=== PATIENT | female | born 1935 | race Caucasian/White ===

== ENCOUNTER 2016-11-06 21:52 | Inpatient (IN) | payer MEDICARE, OTHER ==
[~2016-11-06] VITALS: Ht 157.5 cm; Wt 39.5 kg
[~2016-11-06 21:52] MED LIST: ASPI81TA16 PO; BETA1TAB15 PO; CALC-654 PO; CALC400T8 PO; CHOL2000 PO; DILT30TA PO; DYAZIDE PO; FAMO40TA6 PO; MAGN54LI4 PO; MULT-35 PO; NEBI5TAB8 PO; NF-ESOM40C PO; OMEP20CA6 PO; PYRI100T2 PO; SCR1T PO; SIMV20TA3 PO; TRIA1CAP4 PO
[2016-11-06] MEDS ORDERED: NS IV 500 ML 500 ML IV ONE (22:50)
[2016-11-06 22:55] LABS: BASOPHILS % (AUTO) 0 % (0-10); EOSINOPHILS # (AUTO) 0.1 10^3/uL (0.0-0.3); EOSINOPHILS % (AUTO) 1 % (0-10); LYMPHOCYTES # (AUTO) 0.5 X 10^3 (1.0-4.0); LYMPHOCYTES % (AUTO) 5 % (12-44); MEAN CORPUSCULAR HEMOGLOBIN 32 PG (25-34); MEAN CORPUSCULAR HGB CONC 35 G/DL (32-36); MEAN CORPUSCULAR VOLUME 89 FL (80-99); MONOCYTES # (AUTO) 0.5 X 10^3 (0.0-1.0); MONOCYTES % (AUTO) 5 % (0-12); NEUTROPHILS # (AUTO) 9.1 X 10^3 (1.8-7.8); NEUTROPHILS % (AUTO) 88 % (42-75); PLATELET COUNT 315 10^3/uL (130-400); RED BLOOD COUNT 4.35 10^6/uL (4.35-5.85); RED CELL DISTRIBUTION WIDTH 13.5 % (10.0-14.5); WHITE BLOOD COUNT 10.3 10^3/uL (4.3-11.0)
--- NOTE | 2016-11-06 22:56 | ED Abdominal Pain ---
General Chief Complaint: Abdominal/GI Problems Stated Complaint: STOMACH PAIN, NAUSEA, DRY MOUTH Nursing Triage Note: Pt presents to ED with c/o abdominal cramping and nausea that began at 1300 today. Sepsis Screen: No Definite Risk Source of Information: Patient Exam Limitations: No Limitations History of Present Illness Time Seen By Provider: 22:40 Initial Comments Here with report of upper abdominal pain with cramping and nausea that began about 1 p.m. today. Denies vomiting. She was able to take her evening dose of medicines but otherwise has not eaten anything. Reports that her mouth is dry. Denies dysuria or diarrhea. Denies chest pain, breathing problems or upper respiratory symptoms. Timing/Duration: 12 Hours Severity/Quality: Mild, Moderate, Cramping Location: Epigastric Radiation: No Radiation Activities at Onset: None Modifying Factors: Worsens With Eating Associated Symptoms: No Back Pain, No Chest Pain, No Diaphoresis, No Fever/ Chills, Fatigue Nausea/VomitingNo Shortness of Air, Weakness Allergies and Home Medications Allergies Coded Allergies: bacitracin (Verified Allergy, Unknown, 10/06/15) lidocaine (Verified Allergy, Unknown, 10/06/15) neomycin (Verified Allergy, Unknown, 10/06/15) polymyxin B (Verified Allergy, Unknown, 10/06/15) pramoxine (Verified Allergy, Unknown, 10/06/15) Home Medications Calcium Carbonate/Vitamin D3 1 Each Tablet 1 EACH PO DAILY (Reported) Cholecalciferol (Vitamin D3) 2,000 Unit Capsule 2,000 UNIT PO DAILY (Reported) Diltiazem HCl 30 Mg Tablet 30 MG PO TID (Reported) Esomeprazole Magnesium 40 Mg Cap 40 MG PO DAILY (Reported) Famotidine 40 Mg Tablet 40 MG PO DAILY (Reported) Magnesium Carbonate 54 Mg/5 Ml Liquid 54 MG PO AC (Reported) Multivitamin 1 Each Tablet 1 EACH PO DAILY (Reported) Pyridoxine HCl 100 Mg Tablet 100 MG PO BID (Reported) Simvastatin 20 Mg Tablet 20 MG PO DAILY (Reported) Triamterene/Hydrochlorothiazid 1 Each Capsule 1 EACH PO DAILY (Reported) Vit A/Vit C/Vit E/Zinc/Copper 1 Each Tablet 1 TAB PO BID (Reported) Review of Systems Constitutional: see HPINo chills, No fever EENTM: No Symptoms ReportedNo Nose Congestion, No Throat Pain Respiratory: No Symptoms ReportedDenies Cough, Denies SOA at Rest Cardiovascular: No Symptoms ReportedDenies Chest Pain, Denies Edema Gastrointestinal: See HPI Abdominal PainDenies Diarrhea, NauseaDenies Vomiting Genitourinary: No Symptoms Reported Musculoskeletal: no symptoms reportedNo back pain, No neck pain Skin: no symptoms reported Psychiatric/Neurological: No Symptoms Reported All Other Systems Reviewed Negative Unless Noted: Yes Past Ahkjghg-Zxpqyk-Sibxen Hx Patient Social History Alcohol Use: Denies Use Recreational Drug Use: No Smoking Status: Never a Smoker 2nd Hand Smoke Exposure: No Recent Foreign Travel: No Contact w/Someone Who Travel: No Recent Infectious Disease Expo: No Recent Hopitalizations: No Immunizations Up To Date Tetanus Booster (TDap): Unknown Date of Pneumonia Vaccine: Sep 12, 2013 Date of Influenza Vaccine: Jun 07, 2016 Surgeries HX Surgeries: Yes (RSO, HYST, BREAST BX, CATARACTS) Respiratory Hx Respiratory Disorders: No (ASTHMA CHILD) Cardiovascular Hx Cardiac Disorders: Yes Cardiac Disorders: High Cholesterol, Hypertension Neurological Hx Neurological Disorders: No Genitourinary Hx Genitourinary Disorders: No Gastrointestinal Hx Gastrointestinal Disorders: Yes (GERD) Gastrointestinal Disorders: Hiatal Hernia Musculoskeletal Hx Musculoskeletal Disorders: Yes (ARTHRITIS, OSTEOPOROSIS) Endocrine Hx Endocrine Disorders: No Reviewed Nursing Assessment Reviewed/Agree w Nursing PMH: Yes Family Medical History Significant Family History: No Pertinent Family Hx Physical Exam Vital Signs VS - Last 72 Hours, by Label 11/06/16 22:25 Temp 98.5 Pulse 72 Resp 18 B/P 186/90 Pulse Ox 100 O2 Delivery Room Air Capillary Refill : Less Than 3 Seconds General Appearance: WD/WN mild distress (nausea) HEENT: PERRL/EOMI pharynx normal Neck: full range of motion supple Respiratory: lungs clear normal breath sounds Cardiovascular: regular rate, rhythm no murmur Gastrointestinal: softNo guarding, No rebound, tenderness (epigastric) Extremities: non-tender normal inspection Back: normal inspection no CVA tenderness no vertebral tenderness Neurologic/Psychiatric: alert oriented x 3 Skin: normal color warm/dry Progress/Results/Core Measures Results/Orders Lab Results Laboratory Tests Test 11/06/16 22:44 11/06/16 22:49 11/06/16 22:58 Range/Units Alanine Aminotransferase (ALT/SGPT) 21 0-55 U/L Albumin 4.6 H 3.2-4.5 G/DL Alkaline Phosphatase 66 40-136 U/L Anion Gap 16 H 5-14 MMOL/L Aspartate Amino Transf (AST/SGOT) 33 5-34 U/L BUN/Creatinine Ratio 19 Basophils # (Auto) 0.0 0.0-0.1 10^3/uL Basophils (%) (Auto) 0 0-10 % Blood Urea Nitrogen 16 7-18 MG/DL Calcium Level 9.8 8.5-10.1 MG/DL Carbon Dioxide Level 23 21-32 MMOL/L Chloride Level 95 L 98-107 MMOL/L Creatinine 0.83 0.60-1.30 MG/DL Eosinophils # (Auto) 0.1 0.0-0.3 10^3/uL Eosinophils (%) (Auto) 1 0-10 % Estimat Glomerular Filtration Rate > 60 Glucose Level 116 H 70-105 MG/DL Hematocrit 39 35-52 % Hemoglobin 13.7 11.5-16.0 G/DL Lymphocytes # (Auto) 0.5 L 1.0-4.0 X 10^3 Lymphocytes (%) (Auto) 5 L 12-44 % Magnesium Level 2.0 1.8-2.4 MG/DL Mean Corpuscular Hemoglobin 32 25-34 PG Mean Corpuscular Hemoglobin Concent 35 32-36 G/DL Mean Corpuscular Volume 89 80-99 FL Mean Platelet Volume 9.0 7.4-10.4 FL Monocytes # (Auto) 0.5 0.0-1.0 X 10^3 Monocytes (%) (Auto) 5 0-12 % Neutrophils # (Auto) 9.1 H 1.8-7.8 X 10^3 Neutrophils (%) (Auto) 88 H 42-75 % Platelet Count 315 130-400 10^3/uL Potassium Level 3.1 L 3.6-5.0 MMOL/L Red Blood Count 4.35 4.35-5.85 10^6/uL Red Cell Distribution Width 13.5 10.0-14.5 % Sodium Level 134 L 135-145 MMOL/L Total Bilirubin 0.7 0.1-1.0 MG/DL Total Protein 7.4 6.4-8.2 G/DL White Blood Count 10.3 4.3-11.0 10^3/uL Troponin I < 0.30 <0.30 NG/ML Urine Bacteria NEGATIVE /HPF Urine Bilirubin NEGATIVE NEGATIVE Urine Casts NONE /LPF Urine Clarity CLEAR Urine Color YELLOW Urine Crystals NONE /LPF Urine Culture Indicated NO Urine Glucose (UA) NEGATIVE NEGATIVE Urine Ketones 1+ H NEGATIVE Urine Leukocyte Esterase NEGATIVE NEGATIVE Urine Mucus MODERATE H /LPF Urine Nitrite NEGATIVE NEGATIVE Urine Protein NEGATIVE NEGATIVE Urine RBC 10-25 H /HPF Urine RBC (Auto) 3+ H NEGATIVE Urine Specific [place] 1.020 1.016-1.022 Urine Squamous Epithelial Cells 5-10 /HPF Urine Urobilinogen NORMAL NORMAL MG/DL Urine WBC NONE /HPF Urine pH 7 5-9 My Orders Orders-LETY JENKINS MD Cbc With Automated Diff (11/06/16 22:50) Comprehensive Metabolic Panel (11/06/16 22:50) Magnesium (11/06/16 22:50) Ua Culture If Indicated (11/06/16 22:50) Ondansetron Injection (Zofran Injectio (11/06/16 23:00) Saline Lock/Iv-Start (11/06/16 22:50) Saline Lock/Iv-Start (11/06/16 22:50) Ns Iv 500 Ml (Sodium Chloride 0.9%) (11/06/16 22:50) Ekg Tracing (11/06/16 23:22) Troponin I (11/06/16 23:22) Clonidine Tablet (Catapres Tablet) (11/06/16 23:45) Ondansetron Injection (Zofran Injectio (11/07/16 00:00) Famotidine Injection (Pepcid Injection) (11/06/16 23:55) Ct Abdomen/Pelvis W (11/07/16 00:24) Promethazine Injection (Phenergan Injec (11/07/16 00:34) Iohexol Injection (Omnipaque 350 Mg/Ml 1 (11/07/16 01:00) Sodium Chloride Flush (Catheter Flush Sy (11/07/16 01:00) Ns (Ivpb) (Sodium Chloride 0.9% Ivpb Bag (11/07/16 01:00) Promethazine Injection (Phenergan Injec (11/07/16 02:03) Benzocaine Extension Tube (Hurricaine Ex (11/07/16 02:09) Chest 1 View, Ap/Pa Only (11/07/16 02:34) Medications Given in ED Current Medications Medications Dose Ordered Sig/Sam Route Start Time Stop Time Status Last Admin Dose Admin Clonidine HCl 0.1 mg ONCE ONCE PO 11/06/16 23:45 11/06/16 23:46 DC 11/06/16 23:52 0.1 MG Iohexol 100 ml ONCE ONCE IV 11/07/16 01:00 11/07/16 01:27 DC 11/07/16 01:05 100 ML Ondansetron HCl 4 mg ONCE ONCE IVP 11/07/16 00:00 11/07/16 00:01 DC 11/07/16 00:09 4 MG Ondansetron HCl 4 mg 4 mg ONCE ONCE IVP 11/06/16 23:00 11/06/16 23:01 DC 11/06/16 22:55 4 MG Promethazine HCl 25 mg STK-MED ONCE .ROUTE 11/07/16 00:34 11/07/16 00:36 DC 11/07/16 00:38 6.25 MG Promethazine HCl 25 mg STK-MED ONCE .ROUTE 11/07/16 02:03 11/07/16 02:05 DC 11/07/16 02:06 12.5 MG Sodium Chloride 100 ml ONCE ONCE IV 11/07/16 01:00 11/07/16 01:45 DC 11/07/16 01:05 80 ML Sodium Chloride 500 ml @ 0 mls/hr Q0M ONCE IV 11/06/16 22:50 11/06/16 22:51 DC 11/06/16 22:56 0 MLS/HR Vital Signs/I&O Vital Sign - Last 12Hours 11/06/16 22:25 Temp 98.5 Pulse 72 Resp 18 B/P 186/90 Pulse Ox 100 O2 Delivery Room Air Blood Pressure Mean: 122 Progress Note : Progress Note Seen and evaluated. IV, labs and UA ordered. Zofran 4 mg IV. Normal saline 500 mL bolus. Patient noted to be quite hypertensive with blood pressure 200/ 87. EKG and troponin added. Clonidine 0.1 mg by mouth ordered. Monitor patient. Blood pressure did improve to 160s over 80. Patient with persistent vomiting. Repeat Zofran 4 mg IV. 0015: Patient has repeat vomiting. Has history of obstruction. CT abdomen pelvis with contrast ordered. Phenergan 6.25 mg IV ordered. Monitor patient. 0200: Persistent nausea and vomiting. Phenergan 12.5 mg IV ordered. 0215: CT findings noted. Significant high grade small noted. NG tube indicated. This was discussed with the patient and she agreed. Case discussed with Dr. Holt, on-call for Dr. Bradshaw. He accepts patient for admission, inpatient status. Consult surgery. Dr. Winter consulted at 0213 and agrees with NG tube and will follow. Patient and family agree with plan. 0225 radiology called and is now they're concerned that there may be an internal volvulus. 0230: I discussed the case with Dr. Winter. We will continue current management including NG tube which was placed. And he will see the patient first thing in the morning especially considering she has no significant pain or white count currently. Admit, inpatient status. ECG Initial ECG Impression Date: Nov 06, 2016 Initial ECG Impression Time: 23:32 Initial ECG Rate: 67 Initial ECG Rhythm: Normal Sinus Comment Sinus rhythm with right bundle branch block and left posterior fascicular block although there is artifact. Previous EKG compared from 2006 and is very similar overall. Rightward axis noted. No evidence of ST elevation CT. Interpreted by me. Diagnostic Imaging Diagonstic Imaging: CT Plain Films/CT/US/NM/MRI: abdomen, pelvis Comments Significant distention of the stomach and proximal small bowel loops with development of air fluid levels compatible with high-grade bowel obstruction. There is transition point at the right lower quadrant where there is a question of an internal hernia. Small amount of free fluid but no free air. No acute abnormality of the liver, gallbladder, pancreas or kidneys. Incidental findings of cachexia and degenerative disc changes with posterior disc bulging at multiple lumbar levels. Hysterectomy noted. 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 Recommend surgical consultation. Reviewed: Reviewed Night [facility] Dep[facility] Communication Time/Spoke to Admitting Phy: 02:10 Time/Spoke to Consulting Physi: 02:13 Impression Impression: Primary Impression: Small bowel obstruction Additional Impression: Intractable nausea and vomiting Qualified Code: R11.2 - Nausea with vomiting, unspecified Disposition: ADMITTED INPATIENT Condition: Stable Decision to Admit Reason: Admit from ER (General) Decision to Admit/Date: Nov 07, 2016 Time/Decision to Admit Time: 02:10 Departure-Patient Inst. Referrals: ZEV BRADSHAW MD (PCP/Family) Primary Care Physician LETY JENKINS MD Nov 06, 2016 22:56
[2016-11-06] MEDS ORDERED: ONDANSETRON 4 MG/2 ML (SDV) Z0FRAN IVP ONE (23:00)
[2016-11-06 23:05] LABS: BILIRUBIN,URINE NEGATIVE (NEGATIVE); KETONES,URINE 1+ (NEGATIVE); LEUKOCYTE ESTERASE ,URINE NEGATIVE (NEGATIVE); NITRITE,URINE NEGATIVE (NEGATIVE); PH,URINE 7 (5-9); PROTEIN,URINE NEGATIVE (NEGATIVE); UROBILINOGEN,URINE NORMAL (NORMAL)
[2016-11-06 23:12] LABS: ALANINE AMINOTRANSFERASE 21 U/L (0-55); ALBUMIN 4.6 G/DL (3.2-4.5); ANION GAP 16 MMOL/L (5-14); ASPARTATE AMINO TRANSFERASE 33 U/L (5-34); BILIRUBIN,TOTAL 0.7 MG/DL (0.1-1.0); BLOOD UREA NITROGEN 16 MG/DL (7-18); BUN/CREATININE RATIO 19; CALCIUM 9.8 MG/DL (8.5-10.1); CARBON DIOXIDE 23 MMOL/L (21-32); CHLORIDE 95 MMOL/L (98-107); CREATININE SERUM 0.83 MG/DL (0.60-1.30); GFR ESTIMATED > 60; GLUCOSE 116 MG/DL (70-105); POTASSIUM 3.1 MMOL/L (3.6-5.0); SODIUM 134 MMOL/L (135-145); TOTAL PROTEIN 7.4 G/DL (6.4-8.2)
[2016-11-06] MEDS ORDERED: cloNIDine 0.1 MG (CATAPRES) TAB PO ONE (23:45)
[2016-11-06] MEDS ORDERED: FAMOTIDINE 20MG/2ML IV (PEPCID) IV STA (23:55)
[2016-11-07] VITALS (9 sets, daily range): BP systolic 149–183; BP diastolic 62–114
[2016-11-07] MEDS ORDERED: ONDANSETRON 4 MG/2 ML (SDV) Z0FRAN IVP ONE
[2016-11-07] MEDS ORDERED: PROMETHAZINE INJ 25 MG/ML (PHENERGAN) AMP ONE ×3 (00:34→04:07)
[2016-11-07] MEDS ORDERED: IOHEXOL 350 MG/ML 100 ML (OMNIPAQUE 350) VIAL IV ONE (01:00)
[2016-11-07] MEDS ORDERED: NS 100 ML (IVPB) BAG IV ONE (01:00)
[2016-11-07] MEDS ORDERED: CATHETER FLUSH 10 ML SYR IV PRN (01:00)
[2016-11-07] MEDS ORDERED: HURRICAINE EXT TUBE (BENZOCAINE) ONE (02:09)
[2016-11-07] MEDS ORDERED: NS IV 1000 ML 1,000 ML ONE (04:07)
[2016-11-07] MEDS ORDERED: ONDANSETRON 4 MG/2 ML (SDV) Z0FRAN ONE (04:07)
[2016-11-07] MEDS ORDERED: morphine INJ 4 MG/ML 1 ML (VIAL/SYRINGE) ONE (04:49)
[2016-11-07 05:00] LABS: BASOPHILS % (AUTO) 0 % (0-10); EOSINOPHILS % (AUTO) 0 % (0-10); LYMPHOCYTES # (AUTO) 0.5 X 10^3 (1.0-4.0); LYMPHOCYTES % (AUTO) 5 % (12-44); MEAN CORPUSCULAR HEMOGLOBIN 31 PG (25-34); MEAN CORPUSCULAR HGB CONC 35 G/DL (32-36); MEAN CORPUSCULAR VOLUME 90 FL (80-99); MEAN PLATELET VOLUME 9.2 FL (7.4-10.4); MONOCYTES # (AUTO) 0.3 X 10^3 (0.0-1.0); MONOCYTES % (AUTO) 3 % (0-12); NEUTROPHILS # (AUTO) 8.8 X 10^3 (1.8-7.8); NEUTROPHILS % (AUTO) 92 % (42-75); PLATELET COUNT 304 10^3/uL (130-400); RED BLOOD COUNT 4.16 10^6/uL (4.35-5.85); RED CELL DISTRIBUTION WIDTH 13.5 % (10.0-14.5); WHITE BLOOD COUNT 9.6 10^3/uL (4.3-11.0)
[2016-11-07 05:19] LABS: ALANINE AMINOTRANSFERASE 19 U/L (0-55); ALBUMIN 4.3 G/DL (3.2-4.5); ANION GAP 14 MMOL/L (5-14); ASPARTATE AMINO TRANSFERASE 32 U/L (5-34); BILIRUBIN,TOTAL 0.8 MG/DL (0.1-1.0); BLOOD UREA NITROGEN 15 MG/DL (7-18); BUN/CREATININE RATIO 20; CARBON DIOXIDE 23 MMOL/L (21-32); CHLORIDE 96 MMOL/L (98-107); CREATININE SERUM 0.76 MG/DL (0.60-1.30); GFR ESTIMATED > 60; GLUCOSE 129 MG/DL (70-105); POTASSIUM 3.3 MMOL/L (3.6-5.0); SODIUM 133 MMOL/L (135-145); TOTAL PROTEIN 6.9 G/DL (6.4-8.2)
[2016-11-07] MEDS: morphine INJ 4 MG/ML 1 ML (VIAL/SYRINGE) IVP PRN ×3 (05:51→20:15)
[2016-11-07] MEDS: NS IV 1000 ML 1,000 ML IV SCH ×2 (06:15→18:54)
[2016-11-07] MEDS ORDERED: PROMETHAZINE INJ 25 MG/ML (PHENERGAN) AMP IV PRN (06:15)
--- NOTE | 2016-11-07 07:23 | Diagnostic Imaging Report ---
PROCEDURE: CT abdomen and pelvis with contrast. TECHNIQUE: Multiple contiguous axial images were obtained through the abdomen and pelvis after administration of intravenous contrast. INDICATION: Pain and nausea. I have no previous for comparison. FINDINGS: There are features of a high-grade distal small bowel obstruction and the transition in the right lower quadrant corresponds to some focal distortion of orientation of the small bowel, best seen on image 53 of 78 and obstruction from the internal hernia versus a scarring could not be differentiated. No pneumatosis or free air. The stomach is moderately distended with fluid and this fluid refluxing into a small hiatal hernia. Liver and gallbladder are unremarkable. The spleen nonfocal. There are renal cortical cysts. No hydronephrosis. Aortoiliac and mesenteric vessels appear patent and nonaneurysmal. There is stool in the distal colon, large bowel itself appeared intrinsically unremarkable and proximally with decompressed. IMPRESSION: High-grade distal small bowel obstruction transition in the right lower quadrant corresponds to an area of distortion of the normal orientation of small bowel loops. This could be from obstructing scar or internal hernia. No findings of perforation and no abscess. No other acute appearing abnormality. I agree with the preliminary. Dictated by: Dictated on workstation # [id number]
--- NOTE | 2016-11-07 07:55 | Diagnostic Imaging Report ---
INDICATION: NG placement. FINDINGS: NG catheter is looped upon itself in the distal thoracic esophagus. A subsequent film following this exam showed successful repositioning. Severe COPD noted. IMPRESSION: Air trapping, COPD chronic. Positioning of NG catheter looped in the distal esophagus, however, following repositioning after this exam, a subsequent radiograph confirms good positioning. Dictated by: Dictated on workstation # [id number]
--- NOTE | 2016-11-07 08:39 | Diagnostic Imaging Report ---
INDICATION: Catheter repositioning. Study compared with exam earlier the same day. This film is timed 3:30 a.m. FINDINGS: Enteric catheter has been repositioned its tip is now well below the diaphragm into the stomach. Air trapping and COPD chronic. No failure, effusion or pneumothorax. IMPRESSION: Enteric catheter is within the stomach. Dictated by: Dictated on workstation # [id number]
[2016-11-07] MEDS: PANTOPRAZOLE 40 MG/10 ML (PROTONIX) VIAL IV SCH ×3 (09:00→20:15)
[2016-11-07] MEDS ORDERED: BUPIVACAINE 0.5% 30 ML (SENSORCAINE) VIAL ONE (09:02)
[2016-11-07] MEDS ORDERED: LIDOCAINE 1% INJ 20 ML (XYLOCAINE) VIAL ONE (09:03)
[2016-11-07] MEDS ORDERED: FLUO40CR8 TOP (09:07)
[2016-11-07] MEDS ORDERED: TRIA1TAB3 PO (09:07)
[2016-11-07] MEDS ORDERED: ESCI5TAB12 PO (09:07)
[2016-11-07] MEDS ORDERED: CLOR3.755 PO (09:07)
[2016-11-07] MEDS ORDERED: ESOM40CA52 PO (09:07)
[2016-11-07] MEDS ORDERED: FLUT16SP22 NS (09:07)
[2016-11-07] MEDS ORDERED: SIMV20TA3 PO (09:07)
[2016-11-07] MEDS ORDERED: SUCR1ORA PO (09:07)
--- NOTE | 2016-11-07 09:09 | History & Physicial ---
History of Present Illness History of Present Illness Reason for visit/HPI PT IS AN 81 Y/O FEMALE WHO IS KNOWN TO ME FROM CLINIC. MRS. LONG STATES THAT SHE WAS FEELING WELL UNTIL LAST NIGHT WHEN SHE STARTED TO HAVE NAUSEA AND ABDOMINAL PAIN IN THE UMBILICAL AND LOWER REGION OF HER STOMACH. SHE STATES THAT SHE STARTED TO HAVE NAUSEA AND EMESIS WHEN SHE PRESENTED TO THE HOSPITAL. SHE STATES THAT SHE STILL HAS SOME DISCOMFORT, BUT NOT MUCH ON ADMISSION TO THE HOSPITAL. SHE ALSO REPORTS THAT THIS TYPE OF ILLNESS HAS HAPPENED ONE TIME PREVIOUSLY IN ABOUT 2006 WHEN SHE HAD A "TWISTED BOWEL" AND HAD A COLONOSCOPY THAT RESOLVED THE "TWIST". Date of Admission Nov 07, 2016 at 02:46 I consulted on this patient on 11/07/16 09:03 Attending Physician Zev Farrar MD Admitting Physician Zev Farrar MD Consult JUAN DOWNING DO Allergies and Home Medications Allergies Coded Allergies: bacitracin (Verified Allergy, Unknown, 10/06/15) lidocaine (Verified Allergy, Unknown, 10/06/15) neomycin (Verified Allergy, Unknown, 10/06/15) polymyxin B (Verified Allergy, Unknown, 10/06/15) pramoxine (Verified Allergy, Unknown, 10/06/15) Home Medications Calcium Carbonate/Vitamin D3 1 Each Tablet 1 EACH PO DAILY (Reported) Cholecalciferol (Vitamin D3) 2,000 Unit Capsule 2,000 UNIT PO DAILY (Reported) Diltiazem HCl 30 Mg Tablet 30 MG PO TID (Reported) Esomeprazole Magnesium 40 Mg Cap 40 MG PO DAILY (Reported) Famotidine 40 Mg Tablet 40 MG PO DAILY (Reported) Magnesium Carbonate 54 Mg/5 Ml Liquid 54 MG PO AC (Reported) Multivitamin 1 Each Tablet 1 EACH PO DAILY (Reported) Pyridoxine HCl 100 Mg Tablet 100 MG PO BID (Reported) Simvastatin 20 Mg Tablet 20 MG PO DAILY (Reported) Triamterene/Hydrochlorothiazid 1 Each Capsule 1 EACH PO DAILY (Reported) Vit A/Vit C/Vit E/Zinc/Copper 1 Each Tablet 1 TAB PO BID (Reported) Past Frtsrfs-Zfevan-Huqqll Hx Patient Social History Marrital Status: Living Status: LIVES AT HOME WITH SPOUSE Employed/Student: retired Alcohol Use: Denies Use Recreational Drug Use: No Smoking Status: Never a Smoker 2nd Hand Smoke Exposure: No Physical Abuse Screen: No Sexual Abuse: No Recent Foreign Travel: No Contact w/other who traveled: No Recent Hopitalizations: No Recent Infectious Disease Expo: No Immunizations Up To Date Tetanus Booster (TDap): Unknown Date of Pneumonia Vaccine: Sep 12, 2013 Date of Influenza Vaccine: Jun 07, 2016 Seasonal Allergies Seasonal Allergies: No Surgeries HX Surgeries: Yes (RSO, HYST, BREAST BX, CATARACTS) Surgeries: Breast (BIOPSY), Hysterectomy Respiratory Hx Respiratory Disorders: Yes (ASTHMA CHILD) Cardiovascular Hx Cardiovascular Disorders: Yes Cardiac Disorders: High Cholesterol, Hypertension Neurological Hx Neurological Disorders: No Reproductive System : No Hx 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: No Sexually Transmitted Disease: No HIV/AIDS: No Female 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: 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 Genitourinary Hx Genitourinary Disorders: No Gastrointestinal Hx Gastrointestinal Disorders: Yes (GERD) Gastrointestinal Disorders: Gastroesophageal Reflux, Hiatal Hernia Musculoskeletal Hx Musculoskeletal Disorders: Yes (ARTHRITIS, OSTEOPOROSIS) Musculoskeletal Disorders: Osteoporosis, Arthritis Endocrine Hx Endocrine Disorders: No HEENT HX ENT Disorders: No Loss of Vision: Denies Hearing Impairment: Denies Cancer Hx Cancer: No Psychosocial Hx Psychiatric Problems: No Integumentary HX Skin/Integumentary Disorder: No Blood Transfusions Hx Blood Disorders: No Adverse Reaction to a Blood Tr: No Reviewed Nursing Assessment Reviewed/Agree w Nursing PMH: Yes Family Medical History Significant Family History: Hypertension Constitutional: No chills, No dizziness, No fever, No malaise, weakness EENTM: No hoarseness, No throat pain Respiratory: No dyspnea on exertion, No short of breath Cardiovascular: No chest pain, No palpitations Gastrointestinal: abdominal pain (LLQ, RLQ) nausea Genitourinary: no symptoms reported Musculoskeletal: No back pain, No muscle weakness Skin: No lesions, No rash Psychiatric/Neurological: Denies Anxiety, Denies Depressed All Other Systems Reviewed Negative Unless Noted: Yes Physical Exam Vital Signs Vital Sign - Last 12Hours 11/06/16 22:25 Temp 98.5 Pulse 72 Resp 18 B/P 186/90 Pulse Ox 100 O2 Delivery Room Air Capillary Refill : Less Than 3 Seconds General Appearance: Mild Distress Thin Eyes: Bilateral Eye EOMI, Bilateral Eye Normal Inspection, Bilateral Eye PERRL HEENT: PERRL/EOMI Pharynx Normal Neck: Full Range of Motion Normal Inspection Non Tender Supple Carotid Bruit Respiratory: Chest Non Tender Lungs Clear Normal Breath Sounds Cardiovascular: Regular Rate, Rhythm No Edema Gastrointestinal: Distended Tenderness (LLQ, RLQ, UMBILICAL) Other (NO BOWEL SOUNDS) Rectal: Deferred Back: Normal Inspection Extremity: Normal Capillary Refill Non Tender No Calf Tenderness No Pedal Edema Neurologic/Psychiatric: Alert Oriented x3 No Motor/Sensory Deficits Normal Mood/Affect Skin: Normal Color Warm/Dry Lymphatic: No Adenopathy Assessment/Plan Assessment and Plan SMALL BOWEL OBSTRUCTION ABDOMINAL PAIN NAUSEA GERD HYPERLIPIDEMIA HYPERTENSION SMALL BOWEL OBSTRUCTION WITH NAUSEA AND ABDOMINAL PAIN - CONTINUE WITH NG TUBE, MONITOR SYMPTOMS, SUPPORTIVE CARE, DR. DOWNING TO RENDER TREATMENT DEEMED NECESSARY FROM A SURGICAL STANDPOINT. GERD - START PROTONIX IV HYPERLIPIDEMIA AND HYPERTENSION - HOLD MEDS ORALLY AT THIS TIME, WILL GIVE PRN LOPRESSOR IV IF NEEDED FOR HTN. SCD'S FOR DVT PROPHYLAXIS, LOVENOX Admission Diagnosis SMALL BOWEL OBSTRUCTION ABDOMINAL PAIN NAUSEA GERD HYPERLIPIDEMIA HYPERTENSION Clinical Quality Measures DVT/VTE Risk/Contraindication: Risk Factor Score Per Nursin RFS Level Per Nursing on Admit: 2=Moderate ZEV FARRAR MD Nov 07, 2016 09:09
[2016-11-07] MEDS: ENOXAPARIN 40 MG/0.4 ML (LOVENOX) SYR SC SCH (09:15)
[2016-11-07] MEDS: ONDANSETRON 4 MG/2 ML (SDV) Z0FRAN IV PRN (10:25)
[2016-11-07] MEDS: SALIVA STIMULANT MOUTH SPRAY (BIOTENE) 1.5 OZ MM PRN (10:31)
[2016-11-07] MEDS ORDERED: LACTATED RINGERS 1,000 ML IV PRN (10:39)
[2016-11-07] MEDS ORDERED: FAMOTIDINE 20MG/2ML IV (PEPCID) IV ONE (10:45)
--- NOTE | 2016-11-07 10:47 | Consultation ---
History of Present Illness History of Present Illness Patient Consulted On(maira/time) 11/07/16 10:41 Date of Admission History of Present Illness Consult requested by Dr. Bradshaw for SBO. Patient is an 81 year female who began having abdominal pain periumbilical and lower abdomen yesterday. She was having severe nausea and emesis and went to emergency dept overnight. Patient reports history of having twisted bowel but it corrected itself she says. She had a ct scan demonstrating dilated loops of small bowel with transition point in right lower quadrant. She also had an area that has possibility of internal hernia or twisted small bowel. abdominal pain currently is moderate. No radiation. NG tube in place. Allergies and Home Medications Allergies Coded Allergies: bacitracin (Verified Allergy, Unknown, 10/06/15) lidocaine (Verified Allergy, Unknown, 10/06/15) neomycin (Verified Allergy, Unknown, 10/06/15) polymyxin B (Verified Allergy, Unknown, 10/06/15) pramoxine (Verified Allergy, Unknown, 10/06/15) Home Medications Calcium Carbonate/Vitamin D3 1 Each Tablet 1 TAB PO DAILY (Reported) Cholecalciferol (Vitamin D3) 2,000 Unit Capsule 2,000 UNIT PO DAILY (Reported) Clorazepate Dipotassium 3.75 Mg Tablet 3.75 MG PO DAILY (Reported) Diltiazem HCl 30 Mg Tablet 30 MG PO TID (Reported) Escitalopram Oxalate 5 Mg Tablet 5 MG PO HS (Reported) Esomeprazole Magnesium 40 Mg Capsule.dr 40 MG PO DAILY (Reported) Famotidine 40 Mg Tablet 40 MG PO HS (Reported) Fluorouracil 40 Gm Cream..g. TOP DAILY PRN PRN SKIN (Reported) Fluticasone Propionate 16 Gm Kirby.susp 1 SPRAY NS BID PRN PRN ALLERGIES ( Reported) Multivitamin 1 Each Tablet 1 TAB PO DAILY (Reported) Pyridoxine HCl 100 Mg Tablet 100 MG PO BID (Reported) Simvastatin 20 Mg Tablet 20 MG PO HS (Reported) Sucralfate 1 Gm/10 Ml Oral.susp 10 ML PO TIDWM (Reported) Triamterene/Hydrochlorothiazid 1 Each Tablet 1 TAB PO DAILY (Reported) Vit A/Vit C/Vit E/Zinc/Copper 1 Each Tablet 1 TAB PO BID (Reported) Past Rycwlzo-Duxutc-Ogcgwh Hx Patient Social History Alcohol Use: Denies Use Recreational Drug Use: No Smoking Status: Never a Smoker 2nd Hand Smoke Exposure: No Recent Foreign Travel: No Contact w/Someone Who Travel: No Recent Infectious Disease Expo: No Recent Hopitalizations: No Physical Abuse Screen: No Sexual Abuse: No Immunizations Up To Date Tetanus Booster (TDap): Unknown Date of Pneumonia Vaccine: Sep 12, 2013 Date of Influenza Vaccine: Jun 07, 2016 Seasonal Allergies Seasonal Allergies: No Surgeries HX Surgeries: Yes (RSO, HYST, BREAST BX, CATARACTS) Surgeries: Breast (BIOPSY), Hysterectomy Respiratory Hx Respiratory Disorders: Yes (ASTHMA CHILD) Cardiovascular Hx Cardiac Disorders: Yes Cardiac Disorders: High Cholesterol, Hypertension Neurological Hx Neurological Disorders: No Reproductive System : No Hx 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: No Sexually Transmitted Disease: No HIV/AIDS: No Female 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: 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 Genitourinary Hx Genitourinary Disorders: No Gastrointestinal Hx Gastrointestinal Disorders: Yes (GERD) Gastrointestinal Disorders: Gastroesophageal Reflux, Hiatal Hernia Musculoskeletal Hx Musculoskeletal Disorders: Yes (ARTHRITIS, OSTEOPOROSIS) Musculoskeletal Disorders: Osteoporosis, Arthritis Endocrine Hx Endocrine Disorders: No HEENT HX ENT Disorders: No Loss of Vision: Denies Hearing Impairment: Denies Cancer Hx Cancer: No Psychosocial Hx Psychiatric Problems: No Integumentary HX Skin/Integumentary Disorder: No Blood Transfusions Hx Blood Disorders: No Adverse Reaction to a Blood Tr: No Reviewed Nursing Assessment Reviewed/Agree w Nursing PMH: Yes Family Medical History Significant Family History: Hypertension Review of Systems-General Constitutional: see HPI EENTM: no symptoms reported Respiratory: no symptoms reported Cardiovascular: no symptoms reported Gastrointestinal: see HPI Genitourinary: no symptoms reported Musculoskeletal: no symptoms reported Skin: no symptoms reported Psychiatric/Neurological: No Symptoms Reported Physical Exam-General Problems Physical Exam Vital Signs Vital Sign - Last 12Hours 11/06/16 22:25 Temp 98.5 Pulse 72 Resp 18 B/P 186/90 Pulse Ox 100 O2 Delivery Room Air Capillary Refill : Less Than 3 Seconds General Appearance: mild distress HEENT: PERRL/EOMI Neck: supple Respiratory: no respiratory distress no accessory muscle use Cardiovascular: regular rate, rhythm no edema Gastrointestinal: distended (umbilical hernia reducible, slight tenderness to palpation right lower quadrant) Rectal: other (no gross blood soft stool in vault no palpable masses) Back: normal inspection Extremities: non-tender normal inspection Neurologic/Psychiatric: alert normal mood/affect oriented x 3 Skin: warm/dry Data Review Labs Laboratory Tests 11/06/16 22:44: Alanine Aminotransferase (ALT/SGPT) 21, Albumin 4.6H, Alkaline Phosphatase 66, Anion Gap 16H, Aspartate Amino Transf (AST/SGOT) 33, BUN/Creatinine Ratio 19, Basophils # (Auto) 0.0, Basophils (%) (Auto) 0, Blood Urea Nitrogen 16, Calcium Level 9.8, Carbon Dioxide Level 23, Chloride Level 95L, Creatinine 0.83, Eosinophils # (Auto) 0.1, Eosinophils (%) (Auto) 1, Estimat Glomerular Filtration Rate > 60, Glucose Level 116H, Hematocrit 39, Hemoglobin 13.7, Lymphocytes # (Auto) 0.5L, Lymphocytes (%) (Auto) 5L, Magnesium Level 2.0, Mean Corpuscular Hemoglobin 32, Mean Corpuscular Hemoglobin Concent 35, Mean Corpuscular Volume 89, Mean Platelet Volume 9.0, Monocytes # (Auto) 0.5, Monocytes (%) (Auto) 5, Neutrophils # (Auto) 9.1H, Neutrophils (%) (Auto) 88H, Platelet Count 315, Potassium Level 3.1L, Red Blood Count 4.35, Red Cell Distribution Width 13.5, Sodium Level 134L, Total Bilirubin 0.7, Total Protein 7.4, White Blood Count 10.3 11/06/16 22:49: Troponin I < 0.30 11/06/16 22:58: Urine Bacteria NEGATIVE, Urine Bilirubin NEGATIVE, Urine Casts NONE, Urine Clarity CLEAR, Urine Color YELLOW, Urine Crystals NONE, Urine Culture Indicated NO, Urine Glucose (UA) NEGATIVE, Urine Ketones 1+H, Urine Leukocyte Esterase NEGATIVE, Urine Mucus MODERATEH, Urine Nitrite NEGATIVE, Urine Protein NEGATIVE , Urine RBC 10-25H, Urine RBC (Auto) 3+H, Urine Specific [place] 1.020, Urine Squamous Epithelial Cells 5-10, Urine Urobilinogen NORMAL, Urine WBC NONE, Urine pH 7 11/07/16 04:32: Alanine Aminotransferase (ALT/SGPT) 19, Albumin 4.3, Alkaline Phosphatase 63, Anion Gap 14, Aspartate Amino Transf (AST/SGOT) 32, BUN/Creatinine Ratio 20, Basophils # (Auto) 0.0, Basophils (%) (Auto) 0, Blood Urea Nitrogen 15, Calcium Level 9.0, Carbon Dioxide Level 23, Chloride Level 96L, Creatinine 0.76, Eosinophils # (Auto) 0.0, Eosinophils (%) (Auto) 0, Estimat Glomerular Filtration Rate > 60, Glucose Level 129H, Hematocrit 37, Hemoglobin 13.0, Lymphocytes # (Auto) 0.5L, Lymphocytes (%) (Auto) 5L, Mean Corpuscular Hemoglobin 31, Mean Corpuscular Hemoglobin Concent 35, Mean Corpuscular Volume 90, Mean Platelet Volume 9.2, Monocytes # (Auto) 0.3, Monocytes (%) (Auto) 3, Neutrophils # (Auto) 8.8H, Neutrophils (%) (Auto) 92H, Platelet Count 304, Potassium Level 3.3L, Red Blood Count 4.16L, Red Cell Distribution Width 13.5, Sodium Level 133L, Total Bilirubin 0.8, Total Protein 6.9, White Blood Count 9.6 Assessment/Plan Assessment/Plan Assessment/Plan small bowel obstruction abdominal pain nausea and emesis patient with sbo and questionable internal hernia or volvulus appearing on CT scan. She does have some tenderness around this area. I discussed with patient and conservative and operative management. It is difficult to see by radiological imaging if this is an area of small bowel internal hernia or volvulus. We discussed possible outcomes with conservative and operative management. Patient and wish to proceed with operative management at this time. Patient to operating room for exploratory laparotomy all other indicated procedures. Clinical Quality Measures DVT/VTE Risk/Contraindication: Risk Factor Score Per Nursin RFS Level Per Nursing on Admit: 2=Moderate JUAN DOWNING DO Nov 07, 2016 10:47 am
[2016-11-07] MEDS ORDERED: ROCURONIUM 50 MG/5 ML (ZEMURON) VIAL IV ONE (10:55)
[2016-11-07] MEDS ORDERED: LIDOCAINE PF 2% 10 ML (XYLOCAINE) AMP ONE (10:55)
[2016-11-07] MEDS ORDERED: SEVOFLURANE (ULTANE) 15 ML INHAL SOLN ONE ×3 (10:55→12:48)
[2016-11-07] MEDS ORDERED: LACTATED RINGERS 1,000 ML IV ONE (10:55)
[2016-11-07] MEDS ORDERED: proPOfol 200 MG/20 ML (DIPRIVAN) VIAL IV ONE (10:55)
[2016-11-07] MEDS ORDERED: fentaNYL INJECTION 100 MCG/2 ML AMP ONE (10:55)
[2016-11-07] MEDS: ceFAZolin INJECTION 1,000 MG in NS (IVPB) 50 ML IV NR ×2 (11:07→11:22)
[2016-11-07] MEDS ORDERED: morphine INJ 10 MG/ML 1ML (SYR OR VIAL) ONE (12:30)
[2016-11-07] MEDS ORDERED: GLYCOPYRROLATE 0.2 MG/ML (ROBINUL) 2 ML VIAL ONE (12:34)
[2016-11-07] MEDS ORDERED: NEOSTIGMINE (BLOXIVERZ ) 1 MG/1ML 10 ML VIAL ONE (12:34)
[2016-11-07] MEDS ORDERED: ONDANSETRON 4 MG/2 ML (SDV) Z0FRAN IVP PRN (13:15)
[2016-11-07] MEDS ORDERED: morphine INJ 10 MG/ML 1ML (SYR OR VIAL) IVP PRN (13:15)
--- NOTE | 2016-11-07 13:36 | Progress Note-Post Operative ---
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 Loza Pre-Operative Diagnosis small bowel obstruction, possible internal hernia Post-Operative Diagnosis small bowel obstruction caused by adhesions and cecal volvulus caused by adhesions/internal hernia Post-Op Procedure Note Date of Procedure: Nov 07, 2016 Name of Procedure: exploratory laparotomy, lysis of adhesions Procedure Note/Findings see note Anesthesia Type general Estimated blood loss (mL): minimal Specimen(s) collected none JUAN DOWNING DO Nov 07, 2016 1:36 pm
[2016-11-07] MEDS: meTOprolol 5 MG/5 ML (LOPRESSOR) VIAL IV PRN (18:12)
[2016-11-07] MEDS: ceFAZolin INJECTION 1,000 MG in NS (IVPB) 50 ML IV SCH (18:54)
[2016-11-08] VITALS (22 sets, daily range): BP systolic 129–188; BP diastolic 49–95
[2016-11-08] MEDS: meTOprolol 5 MG/5 ML (LOPRESSOR) VIAL IV PRN ×2 (00:12→05:45)
[2016-11-08] MEDS: morphine INJ 4 MG/ML 1 ML (VIAL/SYRINGE) IVP PRN ×3 (02:22→21:11)
[2016-11-08] MEDS: ceFAZolin INJECTION 1,000 MG in NS (IVPB) 50 ML IV SCH (02:22)
[2016-11-08] MEDS: NS IV 1000 ML 1,000 ML IV SCH ×2 (05:10→16:39)
[2016-11-08] MEDS ORDERED: DILTIAZEM DRIP 100 MG in SODIUM CHLORIDE (ADD-VANTAGE) 100 ML IV SCH (06:30)
[2016-11-08] MEDS ORDERED: DILTIAZEM 100 MG/VIAL (CARDIZEM) ADD-VANTAGE IV ONE ×2 (06:32→06:33)
[2016-11-08] MEDS ORDERED: SODIUM CHLORIDE (ADD-VANTAGE) 100 ML IV ONE (06:33)
--- NOTE | 2016-11-08 08:32 | Progress Note (SOAP) ---
Subjective Subjective/Events-last exam PT IS AN 81 Y/O FEMALE WHO IS KNOWN TO ME FROM CLINIC. SHE WAS TAKEN TO SURGERY YESTERDAY BY DR. DOWNING FOR EXPLORATORY LAPAROTOMY WITH LYSIS OF ADHESIONS. PHONE CALL THIS MORNING FROM NURSING STAFF FOR UNCONTROLLED BLOOD PRESSURES ON LOPRESSOR. Review of Systems General: FatigueNo Malaise HEENT: No Head Aches Pulmonary: No Dyspnea Cardiovascular: No: Chest Pain, Palpitations Gastrointestinal: : Abdominal Pain: Other (NO BOWEL MOVEMENT NO GAS EXPULSION) Musculoskeletal: No: back pain Neurological: : WeaknessNo: Confusion Objective Exam Vital Signs Date Time Temp Pulse Resp B/P Pulse Ox O2 Delivery O2 Flow Rate FiO2 11/08/16 07:01 69 14 180/84 98 Room Air 11/08/16 07:00 68 11/08/16 06:40 188/80 11/08/16 06:38 70 11/08/16 05:00 71 16 177/74 95 Room Air 11/08/16 04:00 97 11/08/16 04:00 98.9 68 20 159/49 97 Room Air 11/08/16 01:00 72 11/08/16 00:00 98.8 84 16 175/95 96 Room Air 11/08/16 00:00 96 11/07/16 20:50 96 Room Air 11/07/16 19:55 96 11/07/16 19:45 100.3 79 16 183/78 96 Room Air 11/07/16 19:00 77 11/07/16 16:00 97 11/07/16 16:00 98.5 85 18 168/74 96 Room Air 11/07/16 13:30 98.7 70 16 182/75 97 Room Air 11/07/16 12:00 98.2 80 16 162/62 95 Room Air 11/07/16 12:00 95 Room Air I & O 11/08/16 07:00 Intake Total 1150 ml Output Total 3005 ml Balance -1855 ml Capillary Refill : Less Than 3 Seconds General Appearance: No Apparent Distress Thin HEENT: PERRL/EOMI Neck: Full Range of Motion Supple Respiratory: Chest Non Tender Lungs Clear Cardiovascular: Regular Rate, Rhythm Gastrointestinal: other (NO BOWEL SOUNDS) Neurologic/Psychiatric: Alert Oriented x3 No Motor/Sensory Deficits Normal Mood/Affect Skin: Warm/Dry Lymphatic: No Adenopathy Assessment/Plan Assessment/Plan Assess & Plan/Chief Complaint SMALL BOWEL OBSTRUCTION ABDOMINAL PAIN NAUSEA GERD HYPERLIPIDEMIA HYPERTENSION SMALL BOWEL OBSTRUCTION WITH NAUSEA AND ABDOMINAL PAIN - CONTINUE WITH NG TUBE, PT IS POST - OP - SEE DR. DOWNING'S NOTE FOR FULL DETAILS. 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 GERD - START PROTONIX IV HYPERLIPIDEMIA - HOLD MEDS ORALLY AT THIS TIME HTN - UNCONTROLLED - IV MEDICATION FOR CONTROL OF PRESSURES - MONITOR HEART RATE AND BLOOD PRESSURE - CONTINUE WITH TELE SCD'S FOR DVT PROPHYLAXIS, LOVENOX Diagnosis/Problems: Clinical Quality Measures DVT/VTE Risk/Contraindication: Risk Factor Score Per Nursin RFS Level Per Nursing on Admit: 2=Moderate ZEV FARRAR MD Nov 08, 2016 08:32
--- NOTE | 2016-11-08 08:35 | Pulmonary Progress Note ---
Subjective Subjective/Events-last exam No complications noted currently Exam Exam Vital Signs Date Time Temp Pulse Resp B/P Pulse Ox O2 Delivery O2 Flow Rate FiO2 11/08/16 07:01 69 14 180/84 98 Room Air 11/08/16 07:00 68 11/08/16 06:40 188/80 11/08/16 06:38 70 11/08/16 05:00 71 16 177/74 95 Room Air 11/08/16 04:00 97 11/08/16 04:00 98.9 68 20 159/49 97 Room Air 11/08/16 01:00 72 11/08/16 00:00 98.8 84 16 175/95 96 Room Air 11/08/16 00:00 96 11/07/16 20:50 96 Room Air 11/07/16 19:55 96 11/07/16 19:45 100.3 79 16 183/78 96 Room Air 11/07/16 19:00 77 11/07/16 16:00 97 11/07/16 16:00 98.5 85 18 168/74 96 Room Air 11/07/16 13:30 98.7 70 16 182/75 97 Room Air 11/07/16 12:00 98.2 80 16 162/62 95 Room Air 11/07/16 12:00 95 Room Air I & O 11/08/16 07:00 Intake Total 1150 ml Output Total 3005 ml Balance -1855 ml General Appearance: Mild Distress Thin HEENT: PERRL/EOMI Pharynx Normal Neck: Full Range of Motion Normal Inspection Non Tender Supple Carotid Bruit Respiratory: Chest Non Tender Lungs Clear Normal Breath Sounds Cardiovascular: Regular Rate, Rhythm No Edema Capillary Refill: Less Than 3 Seconds Gastrointestinal: distended (umbilical hernia reducible, slight tenderness to palpation right lower quadrant) Extremity: Normal Capillary Refill Non Tender No Calf Tenderness No Pedal Edema Neurologic/Psychiatric: Alert Oriented x3 No Motor/Sensory Deficits Normal Mood/Affect Skin: Normal Color Warm/Dry Lymphatic: No Adenopathy Results Lab Laboratory Tests 11/06/16 22:44 11/07/16 04:32 Assessment/Plan Assessment/Plan 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 Winter is following hypokalemia -replace Abdominal pain GERD -protonix Clinical Quality Measures DVT/VTE Risk/Contraindication: Risk Factor Score Per Nursin RFS Level Per Nursing on Admit: 2=Moderate IBETH BELTRAN DO Nov 08, 2016 08:35
[2016-11-08] MEDS: PANTOPRAZOLE 40 MG/10 ML (PROTONIX) VIAL IV SCH ×2 (09:17→21:11)
[2016-11-08] MEDS: ENOXAPARIN 40 MG/0.4 ML (LOVENOX) SYR SC SCH (09:17)
[2016-11-08] MEDS: DILTIAZEM DRIP 100 MG in SODIUM CHLORIDE (ADD-VANTAGE) 100 ML IV SCH ×2 (10:41→15:40)
[2016-11-08] MEDS ORDERED: PIPERACILLIN SODIUM/TAZOBACTAM 4.5 GM in NS (IVPB) 100 ML IV NR (10:43)
--- NOTE | 2016-11-08 11:12 | Anesthesia-General Post-Op ---
General Patient Condition Mental Status/LOC: Same as Preop Cardiovascular: Satisfactory Nausea/Vomiting: Absent Respiratory: Satisfactory Pain: Controlled Complications: Absent Post Op Complications Complications None Follow Up Care/Instructions Patient Instructions None needed. Anesthesia/Patient Condition Patient Condition Patient is doing well, no complaints, stable vital signs, no apparent adverse anesthesia problems. No complications reported per nursing. GABE QUIROZ CRNA Nov 08, 2016 11:12
[2016-11-08] MEDS: ONDANSETRON 4 MG/2 ML (SDV) Z0FRAN IV PRN (11:16)
--- NOTE | 2016-11-08 13:21 | Physical Therapy Evaluation ---
PT Evaluation-General Medical Diagnosis Admission Date Nov 07, 2016 at 02:46 Medical Diagnosis: SBO Onset Date: Nov 07, 2016 Therapy Diagnosis Therapy Diagnosis: general debility/weakness Height/Weight Height (Feet): 5 Height (Inches): 2.00 Weight (Pounds): 90 Weight (Ounces): 0.0 Precautions Precautions/Isolations: Fall Prevention, Standard Precautions Referral Physician: Moy Reason for Referral: Evaluation/Treatment Medical History Pertinent Medical History: Arthritis, GERD, HTN Additional Medical History previous SBO Current History ED with nausea and abdominal pain s/p Lap Reviewed History: Yes Social History Home: Single Level Current Living Status: Spouse Prior/Core FIM Prior Level of Function Functional [place] Measure 0=Not Assessed/NA 4=Minimal Assistance 1=Total Assistance 5=Supervision or Setup 2=Maximal Assistance 6=Modified [place] 3=Moderate Assistance 7=Complete [place] Bed Mobility: 7 Transfers (B,C,W/C) (FIM): 7 Gait: 7 Locomotion: 7 PT Evaluation-Current Subjective Patient agrees to PT. Pain Numeric Pain Scale: 8 Location: Lower Location Body Site: Abdomen Pain Description: Acute Pt/Family Goals return to home Objective Patient Orientation: Normal For Age Problem Solving: Good Attachments: NG Tube, IV ROM/Strength ROM Lower Extremities bilateral LE WFL Strenght Lower Extremities bilateral LE WFL Integumentary/Posture Integumentary refer to nursing notes Bowel Incontinence: No Bladder Incontinence: No Posture WNL Neuromuscular (Tone, Coordination, Reflexes) grossly intact Sensory Vision: Functional Hearing: Functional Sensation Right Lower Extremit: Intact Sensation Left Lower Extremity: Intact Transfers Functional [place] Measure 0=Not Assessed/NA 4=Minimal Assistance 1=Total Assistance 5=Supervision or Setup 2=Maximal Assistance 6=Modified [place] 3=Moderate Assistance 7=Complete [place] Transfers (B, C, W/C) (FIM): 5 Scootin Rollin Supine to/from Sit: 5 Sit to/from Stand: 5 Gait Mode of Locomotion: Walk Anticipated Mode of Locomotion: Walk Gait (FIM): 5 Distance (FIM): 3=150 ft Distance: 200' Gait Level of Assist: 5 Gait Assistive Device: FWW Comments/Gait Description safe and functional with FWW Balance Sitting Static: Normal Sitting Dynamic: Normal Standing Static: Normal Standing Dynamic: Normal Assessment/Needs 81 y.o. female, will benefit from short term skilled PT to address functional strength and mobility to improve current LOF and to safely return to home with spouse at maximum LOF. Rehab Potential: Good PT Store Stock Associate Goals Store Stock Associate Goals PT Store Stock Associate Goals Time Frame: Nov 15, 2016 Transfers (B,C,W/C) (FIM): 7 Gait (FIM): 7 Gait distance (FIM): 3=150 ft Gait Level of Assist: 7 Gait Assistive Device: None, FWW PT Plan Problem List Problem List: Activity Tolerance Treatment/Plan Treatment Plan: Continue Plan of Care Treatment Plan: Education, Functional Activity Dam[place], Functional Strength, Gait , Safety, Therapeutic Exercise, Transfers Treatment Duration: Nov 15, 2016 # of days/week 5-6 Visits Per Week: 5-6 Pt/Family Agrees w/Plan: Yes Discharge Recommendations Therapy D/C Recommendations: Home Independently Time/GCodes Time In: 1230 Time Out: 1245 Total Billed Treatment Time: 15 Total Billed Treatment 1 visit EVLowC 15 min NICKY VALADEZ PT Nov 08, 2016 13:21
--- NOTE | 2016-11-08 13:56 | Progress Note ---
Subjective Subjective/Events-last exam feeling better than yesterday. No flatus or bm. pain controlled. npo. NG tube and ariza Objective Exam Vital Signs Date Time Temp Pulse Resp B/P Pulse Ox O2 Delivery O2 Flow Rate FiO2 11/08/16 13:44 97 11/08/16 11:20 Room Air 11/08/16 11:03 99.8 64 11 158/67 96 Room Air 11/08/16 10:53 98 11/08/16 08:05 100.4 11/08/16 08:00 Room Air 11/08/16 08:00 159/75 Room Air 11/08/16 07:01 69 14 180/84 98 Room Air 11/08/16 07:00 68 11/08/16 06:40 188/80 11/08/16 06:38 70 11/08/16 05:00 71 16 177/74 95 Room Air 11/08/16 04:00 97 11/08/16 04:00 98.9 68 20 159/49 97 Room Air 11/08/16 01:00 72 11/08/16 00:00 98.8 84 16 175/95 96 Room Air 11/08/16 00:00 96 11/07/16 20:50 96 Room Air 11/07/16 19:55 96 11/07/16 19:45 100.3 79 16 183/78 96 Room Air 11/07/16 19:00 77 11/07/16 16:00 97 11/07/16 16:00 98.5 85 18 168/74 96 Room Air I & O 11/08/16 07:00 Intake Total 1150 ml Output Total 3005 ml Balance -1855 ml Capillary Refill : Less Than 3 Seconds General Appearance: Thin Other (laying in bed) HEENT: PERRL/EOMI Pharynx Normal Neck: Full Range of Motion Normal Inspection Non Tender Supple Carotid Bruit Respiratory: Chest Non Tender Lungs Clear Normal Breath Sounds Cardiovascular: Regular Rate, Rhythm No Edema Gastrointestinal: distended (less distended, incisional tenderness, slight erythema to right side of wound) Extremity: Normal Capillary Refill Non Tender No Calf Tenderness No Pedal Edema Neurologic/Psychiatric: Alert Oriented x3 No Motor/Sensory Deficits Normal Mood/Affect Skin: Normal Color Warm/Dry Lymphatic: No Adenopathy Assessment/Plan Assessment/Plan Assessment/Plan small bowel obstruction secondary to adhesions with component of internal hernia and cecal volvulus dc ariza slight erythema right side will start on zosyn dc ariza pt IS ng tube, await bowel function Clinical Quality Measures DVT/VTE Risk/Contraindication: Risk Factor Score Per Nursin RFS Level Per Nursing on Admit: 2=Moderate JUAN DOWNING DO Nov 08, 2016 13:56 JUAN DOWNING DO Nov 08, 2016 13:56
[2016-11-08 14:16] LABS: BASOPHILS % (AUTO) 0 % (0-10); EOSINOPHILS % (AUTO) 0 % (0-10); LYMPHOCYTES # (AUTO) 0.5 X 10^3 (1.0-4.0); LYMPHOCYTES % (AUTO) 5 % (12-44); MEAN CORPUSCULAR HEMOGLOBIN 31 PG (25-34); MEAN CORPUSCULAR HGB CONC 34 G/DL (32-36); MEAN CORPUSCULAR VOLUME 92 FL (80-99); MEAN PLATELET VOLUME 9.3 FL (7.4-10.4); MONOCYTES # (AUTO) 0.8 X 10^3 (0.0-1.0); MONOCYTES % (AUTO) 7 % (0-12); NEUTROPHILS # (AUTO) 9.9 X 10^3 (1.8-7.8); NEUTROPHILS % (AUTO) 88 % (42-75); PLATELET COUNT 242 10^3/uL (130-400); RED BLOOD COUNT 3.98 10^6/uL (4.35-5.85); RED CELL DISTRIBUTION WIDTH 14.5 % (10.0-14.5); WHITE BLOOD COUNT 11.2 10^3/uL (4.3-11.0)
[2016-11-08 14:39] LABS: ALANINE AMINOTRANSFERASE 12 U/L (0-55); ALBUMIN 3.4 G/DL (3.2-4.5); ANION GAP 12 MMOL/L (5-14); ASPARTATE AMINO TRANSFERASE 29 U/L (5-34); BAND NEUTROPHILS 4 %; BASOPHILS % (MANUAL) 0 %; BLOOD UREA NITROGEN 17 MG/DL (7-18); BUN/CREATININE RATIO 26; CARBON DIOXIDE 21 MMOL/L (21-32); CHLORIDE 106 MMOL/L (98-107); CREATININE SERUM 0.66 MG/DL (0.60-1.30); EOSINOPHILS % (MANUAL) 0 %; GFR ESTIMATED > 60; GLUCOSE 88 MG/DL (70-105); LYMPHOCYTES % (MANUAL) 6 %; NEUTROPHILS % (MANUAL) 89 %; POTASSIUM 3.5 MMOL/L (3.6-5.0); SODIUM 139 MMOL/L (135-145); TOTAL PROTEIN 5.8 G/DL (6.4-8.2)
[2016-11-08] MEDS: PIPERACILLIN/TAZOBACTAM 4.5 GM/NS 100 ML IVPB IV SCH ×2 (17:17)
[2016-11-09] VITALS (26 sets, daily range): BP systolic 121–175; BP diastolic 54–95
[2016-11-09] MEDS: PIPERACILLIN/TAZOBACTAM 4.5 GM/NS 100 ML IVPB IV SCH ×6 (01:14→17:46)
[2016-11-09] MEDS: NS IV 1000 ML 1,000 ML IV SCH ×3 (02:42→22:23)
[2016-11-09 04:28] LABS: BASOPHILS % (AUTO) 0 % (0-10); EOSINOPHILS % (AUTO) 1 % (0-10); LYMPHOCYTES # (AUTO) 0.4 X 10^3 (1.0-4.0); LYMPHOCYTES % (AUTO) 5 % (12-44); MEAN CORPUSCULAR HEMOGLOBIN 31 PG (25-34); MEAN CORPUSCULAR HGB CONC 33 G/DL (32-36); MEAN CORPUSCULAR VOLUME 93 FL (80-99); MEAN PLATELET VOLUME 9.3 FL (7.4-10.4); MONOCYTES # (AUTO) 0.6 X 10^3 (0.0-1.0); MONOCYTES % (AUTO) 8 % (0-12); NEUTROPHILS % (AUTO) 86 % (42-75); PLATELET COUNT 237 10^3/uL (130-400); RED BLOOD COUNT 3.53 10^6/uL (4.35-5.85); RED CELL DISTRIBUTION WIDTH 14.7 % (10.0-14.5)
[2016-11-09 04:46] LABS: ALBUMIN 3.2 G/DL (3.2-4.5); ANION GAP 15 MMOL/L (5-14); ASPARTATE AMINO TRANSFERASE 23 U/L (5-34); BILIRUBIN,TOTAL 0.8 MG/DL (0.1-1.0); BLOOD UREA NITROGEN 17 MG/DL (7-18); BUN/CREATININE RATIO 27; CALCIUM 7.9 MG/DL (8.5-10.1); CARBON DIOXIDE 19 MMOL/L (21-32); CHLORIDE 109 MMOL/L (98-107); CREATININE SERUM 0.64 MG/DL (0.60-1.30); GFR ESTIMATED > 60; GLUCOSE 70 MG/DL (70-105); MAGNESIUM 1.8 MG/DL (1.8-2.4); PHOSPHORUS 2.2 MG/DL (2.3-4.7); SODIUM 143 MMOL/L (135-145); TOTAL PROTEIN 5.4 G/DL (6.4-8.2)
[2016-11-09] MEDS: POTASSIUM CL 10MEQ/50ML IVPB 50 ML IV SCH ×7 (05:52→16:02)
[2016-11-09] MEDS: MAGNESIUM 1 GM/100 ML IVPB 100 ML IV SCH (05:52)
[2016-11-09] MEDS: KCL 20 MEQ TAB (K-DUR) PO SCH (05:53)
[2016-11-09] MEDS ORDERED: POTASSIUM CL 10MEQ/50ML IVPB 50 ML IV ONE (06:00)
--- NOTE | 2016-11-09 07:17 | Pulmonary Progress Note ---
Subjective Subjective/Events-last exam PT is doing better and denies pain or SOB> Exam Exam Vital Signs Date Time Temp Pulse Resp B/P Pulse Ox O2 Delivery O2 Flow Rate FiO2 11/09/16 07:04 97 11/09/16 06:00 67 11 150/64 94 Room Air 11/09/16 05:00 70 14 159/67 94 Room Air 11/09/16 04:00 98.3 70 14 140/54 95 Room Air 11/09/16 04:00 Room Air 11/09/16 03:00 65 11 149/60 95 Room Air 11/09/16 02:29 96 11/09/16 02:00 67 12 145/58 94 Room Air 11/09/16 01:00 68 15 156/56 95 Room Air 11/09/16 01:00 68 11/08/16 23:50 Room Air 11/08/16 23:45 98.7 63 12 141/58 94 Room Air 11/08/16 23:00 65 19 129/55 95 Room Air 11/08/16 22:00 65 11 138/59 94 Room Air 11/08/16 21:00 67 12 138/58 97 Room Air 11/08/16 20:00 64 18 141/60 96 Room Air 11/08/16 20:00 Room Air 11/08/16 19:02 99.3 11/08/16 19:00 98.6 64 12 139/59 97 Room Air 11/08/16 19:00 61 11/08/16 18:30 97 11/08/16 18:00 64 14 143/60 Room Air 11/08/16 17:00 66 22 139/62 Room Air 11/08/16 16:00 63 12 139/62 Room Air 11/08/16 15:42 Room Air 11/08/16 15:41 98.8 61 16 146/60 97 Room Air 11/08/16 15:40 60 16 146/60 96 11/08/16 14:00 61 16 140/61 Room Air 11/08/16 13:44 97 11/08/16 13:00 62 11 144/71 Room Air 11/08/16 13:00 65 11/08/16 12:00 60 11 132/64 Room Air 11/08/16 11:20 Room Air 11/08/16 11:03 99.8 64 11 158/67 96 Room Air 11/08/16 10:53 98 11/08/16 10:00 65 13 149/73 Room Air 11/08/16 09:00 66 16 157/73 Room Air 11/08/16 08:05 100.4 11/08/16 08:00 Room Air 11/08/16 08:00 159/75 Room Air I & O 11/09/16 07:00 Intake Total 2400 ml Output Total 1325 ml Balance 1075 ml General Appearance: Thin Other (laying in bed) HEENT: PERRL/EOMI Pharynx Normal Neck: Full Range of Motion Normal Inspection Non Tender Supple Carotid Bruit Respiratory: Chest Non Tender Lungs Clear Normal Breath Sounds Cardiovascular: Regular Rate, Rhythm No Edema Capillary Refill: Less Than 3 Seconds Gastrointestinal: distended (less distended, incisional tenderness, slight erythema to right side of wound) Extremity: Normal Capillary Refill Non Tender No Calf Tenderness No Pedal Edema Neurologic/Psychiatric: Alert Oriented x3 No Motor/Sensory Deficits Normal Mood/Affect Skin: Normal Color Warm/Dry Lymphatic: No Adenopathy Results Lab Laboratory Tests 11/08/16 14:10 11/09/16 04:00 Assessment/Plan Assessment/Plan 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 Winter is following hypokalemia -replace Hypertension -Pt is on Cardizem for HTN -PT is still hypertensive with cardizem - D/C Cardizem -Add vasotec 1.25 IV Q 6 -Add hydralazine 10mg IV Q4PRN for SBP >160 (PT is not able to take PO meds at this time) Abdominal pain GERD -protonix Clinical Quality Measures DVT/VTE Risk/Contraindication: Risk Factor Score Per Nursin RFS Level Per Nursing on Admit: 2=Moderate IBETH BELTRAN DO Nov 09, 2016 07:17
[2016-11-09] MEDS ORDERED: ENALAPRILAT 2.5 MG/2 ML (VASOTEC) VIAL IV ONE (07:24)
[2016-11-09 07:26] LABS: ALANINE AMINOTRANSFERASE 11 U/L (0-55)
[2016-11-09] MEDS: ENALAPRILAT 2.5 MG/2 ML (VASOTEC) VIAL IV SCH ×4 (07:29→23:41)
--- NOTE | 2016-11-09 08:09 | Diagnostic Imaging Report ---
INDICATION: Dyspnea. Comparison with 11/07/2016. FINDINGS: NG tube remains present in the stomach. The lungs are hyperaerated with interstitial lung disease. The heart is not enlarged. No evidence of pulmonary edema. No pneumothorax or pleural effusion. IMPRESSION: 1. Obstructive interstitial lung disease with no acute infiltrate. 2. NG tube remains in good position. Dictated by: Dictated on workstation # [id number]
--- NOTE | 2016-11-09 08:23 | Progress Note ---
Subjective Subjective/Events-last exam patient is resting in bed. She is alert and oriented 3. No signs of distress or discomfort is noted. Even respirations. Abdomen soft palpation. Patient complaining of some tenderness along the incision lines with palpation. Redness along the incision line looks more like bruising at this time. We'll continue to monitor situation. Objective Exam Vital Signs Date Time Temp Pulse Resp B/P Pulse Ox O2 Delivery O2 Flow Rate FiO2 11/09/16 07:30 98.6 69 11 152/60 94 Room Air 11/09/16 07:04 97 11/09/16 07:00 66 11/09/16 06:00 67 11 150/64 94 Room Air 11/09/16 05:00 70 14 159/67 94 Room Air 11/09/16 04:00 98.3 70 14 140/54 95 Room Air 11/09/16 04:00 Room Air 11/09/16 03:00 65 11 149/60 95 Room Air 11/09/16 02:29 96 11/09/16 02:00 67 12 145/58 94 Room Air 11/09/16 01:00 68 15 156/56 95 Room Air 11/09/16 01:00 68 11/08/16 23:50 Room Air 11/08/16 23:45 98.7 63 12 141/58 94 Room Air 11/08/16 23:00 65 19 129/55 95 Room Air 11/08/16 22:00 65 11 138/59 94 Room Air 11/08/16 21:00 67 12 138/58 97 Room Air 11/08/16 20:00 64 18 141/60 96 Room Air 11/08/16 20:00 Room Air 11/08/16 19:02 99.3 11/08/16 19:00 98.6 64 12 139/59 97 Room Air 11/08/16 19:00 61 11/08/16 18:30 97 11/08/16 18:00 64 14 143/60 Room Air 11/08/16 17:00 66 22 139/62 Room Air 11/08/16 16:00 63 12 139/62 Room Air 11/08/16 15:42 Room Air 11/08/16 15:41 98.8 61 16 146/60 97 Room Air 11/08/16 15:40 60 16 146/60 96 11/08/16 14:00 61 16 140/61 Room Air 11/08/16 13:44 97 11/08/16 13:00 62 11 144/71 Room Air 11/08/16 13:00 65 11/08/16 12:00 60 11 132/64 Room Air 11/08/16 11:20 Room Air 11/08/16 11:03 99.8 64 11 158/67 96 Room Air 11/08/16 10:53 98 11/08/16 10:00 65 13 149/73 Room Air 11/08/16 09:00 66 16 157/73 Room Air I & O 11/09/16 07:00 Intake Total 2400 ml Output Total 1325 ml Balance 1075 ml Capillary Refill : Less Than 3 Seconds General Appearance: Thin Other (laying in bed but about to be assisted to chair. ) HEENT: PERRL/EOMI Pharynx Normal Neck: Full Range of Motion Normal Inspection Non Tender Supple Carotid Bruit Respiratory: Chest Non Tender Lungs Clear Normal Breath Sounds Cardiovascular: Regular Rate, Rhythm No Edema Gastrointestinal: normal bowel sounds distended (mildly distended, incisional tenderness, slight erythema to right side of wound) Extremity: Normal Capillary Refill Non Tender No Calf Tenderness No Pedal Edema Neurologic/Psychiatric: Alert Oriented x3 No Motor/Sensory Deficits Normal Mood/Affect Skin: Normal Color Warm/Dry Lymphatic: No Adenopathy Results Lab Laboratory Tests Test 11/08/16 14:10 11/09/16 04:00 Range/Units Alanine Aminotransferase (ALT/SGPT) 12 11 0-55 U/L Albumin 3.4 3.2 3.2-4.5 G/DL Alkaline Phosphatase 49 47 40-136 U/L Anion Gap 12 15 H 5-14 MMOL/L Aspartate Amino Transf (AST/SGOT) 29 23 5-34 U/L BUN/Creatinine Ratio 26 27 Band Neutrophils 4 % Basophils # (Auto) 0.0 0.0 0.0-0.1 10^3/uL Basophils % (Manual) 0 % Basophils (%) (Auto) 0 0 0-10 % Blood Morphology Comment NORMAL Blood Urea Nitrogen 17 17 7-18 MG/DL Calcium Level 8.0 L 7.9 L 8.5-10.1 MG/DL Carbon Dioxide Level 21 19 L 21-32 MMOL/L Chloride Level 106 109 H 98-107 MMOL/L Creatinine 0.66 0.64 0.60-1.30 MG/DL Eosinophils # (Auto) 0.0 0.0 0.0-0.3 10^3/uL Eosinophils % (Manual) 0 % Eosinophils (%) (Auto) 0 1 0-10 % Estimat Glomerular Filtration Rate > 60 > 60 Glucose Level 88 70 70-105 MG/DL Hematocrit 37 33 L 35-52 % Hemoglobin 12.5 11.0 L 11.5-16.0 G/DL Lymphocytes # (Auto) 0.5 L 0.4 L 1.0-4.0 X 10^3 Lymphocytes % (Manual) 6 % Lymphocytes (%) (Auto) 5 L 5 L 12-44 % Mean Corpuscular Hemoglobin 31 31 25-34 PG Mean Corpuscular Hemoglobin Concent 34 33 32-36 G/DL Mean Corpuscular Volume 92 93 80-99 FL Mean Platelet Volume 9.3 9.3 7.4-10.4 FL Monocytes # (Auto) 0.8 0.6 0.0-1.0 X 10^3 Monocytes % (Manual) 1 % Monocytes (%) (Auto) 7 8 0-12 % Neutrophils # (Auto) 9.9 H 6.0 1.8-7.8 X 10^3 Neutrophils % (Manual) 89 % Neutrophils (%) (Auto) 88 H 86 H 42-75 % Platelet Count 242 237 130-400 10^3/uL Potassium Level 3.5 L 3.0 L 3.6-5.0 MMOL/L Red Blood Count 3.98 L 3.53 L 4.35-5.85 10^6/uL Red Cell Distribution Width 14.5 14.7 H 10.0-14.5 % Sodium Level 139 143 135-145 MMOL/L Total Bilirubin 1.0 0.8 0.1-1.0 MG/DL Total Protein 5.8 L 5.4 L 6.4-8.2 G/DL White Blood Count 11.2 H 7.0 4.3-11.0 10^3/uL Magnesium Level 1.8 1.8-2.4 MG/DL Phosphorus Level 2.2 L 2.3-4.7 MG/DL Laboratory Tests 11/08/16 14:10: Alanine Aminotransferase (ALT/SGPT) 12, Albumin 3.4, Alkaline Phosphatase 49, Anion Gap 12, Aspartate Amino Transf (AST/SGOT) 29, BUN/Creatinine Ratio 26, Band Neutrophils 4, Basophils # (Auto) 0.0, Basophils % (Manual) 0, Basophils (% ) (Auto) 0, Blood Morphology Comment NORMAL, Blood Urea Nitrogen 17, Calcium Level 8.0L, Carbon Dioxide Level 21, Chloride Level 106, Creatinine 0.66, Eosinophils # (Auto) 0.0, Eosinophils % (Manual) 0, Eosinophils (%) (Auto) 0, Estimat Glomerular Filtration Rate > 60, Glucose Level 88, Hematocrit 37, Hemoglobin 12.5, Lymphocytes # (Auto) 0.5L, Lymphocytes % (Manual) 6, Lymphocytes (%) (Auto) 5L, Mean Corpuscular Hemoglobin 31, Mean Corpuscular Hemoglobin Concent 34, Mean Corpuscular Volume 92, Mean Platelet Volume 9.3, Monocytes # (Auto) 0.8, Monocytes % (Manual) 1, Monocytes (%) (Auto) 7, Neutrophils # (Auto) 9.9H, Neutrophils % (Manual) 89, Neutrophils (%) (Auto) 88H , Platelet Count 242, Potassium Level 3.5L, Red Blood Count 3.98L, Red Cell Distribution Width 14.5, Sodium Level 139, Total Bilirubin 1.0, Total Protein 5.8L, White Blood Count 11.2H 11/09/16 04:00: Alanine Aminotransferase (ALT/SGPT) 11, Albumin 3.2, Alkaline Phosphatase 47, Anion Gap 15H, Aspartate Amino Transf (AST/SGOT) 23, BUN/Creatinine Ratio 27, Basophils # (Auto) 0.0, Basophils (%) (Auto) 0, Blood Urea Nitrogen 17, Calcium Level 7.9L, Carbon Dioxide Level 19L, Chloride Level 109H, Creatinine 0.64, Eosinophils # (Auto) 0.0, Eosinophils (%) (Auto) 1, Estimat Glomerular Filtration Rate > 60, Glucose Level 70, Hematocrit 33L, Hemoglobin 11.0L, Lymphocytes # (Auto) 0.4L, Lymphocytes (%) (Auto) 5L, Mean Corpuscular Hemoglobin 31, Mean Corpuscular Hemoglobin Concent 33, Mean Corpuscular Volume 93, Mean Platelet Volume 9.3, Monocytes # (Auto) 0.6, Monocytes (%) (Auto) 8, Neutrophils # (Auto) 6.0, Neutrophils (%) (Auto) 86H, Platelet Count 237, Potassium Level 3.0L, Red Blood Count 3.53L, Red Cell Distribution Width 14.7H, Sodium Level 143, Total Bilirubin 0.8, Total Protein 5.4L, White Blood Count 7.0 , Magnesium Level 1.8, Phosphorus Level 2.2L Assessment/Plan Assessment/Plan Assessment/Plan small bowel obstruction secondary to adhesions with component of internal hernia and cecal volvulus Hypokalemia PT ordered. Patient using IS. Redness to incision line looks more like bruising. Patient is on Zosyn. Bowel sounds present but not passing gas yet. NG tube. Potassium is being replaced. Low Phosphorus. Discussed with pharmacy. To replace with Sodium Phos 15MM IVPB. We will continue to monitor patient. Moy- patient feeling better. pain controlled. No nausea or emesis. NG tube in place. No flatus or bm yet. No new complaints. general no acute distress heart regular lungs nonlabored abdomen soft less distention, no erythema around incision ext nontender assessment as above await bowel function pt is replace electrolytes Clinical Quality Measures DVT/VTE Risk/Contraindication: Risk Factor Score Per Nursin RFS Level Per Nursing on Admit: 2=Moderate AYE ISIDRO APRN Nov 09, 2016 08:23 JUAN DOWNING DO Nov 09, 2016 13:39
[2016-11-09] MEDS ORDERED: SODIUM PHOSPHATE INJ 15 MM in NS (IVPB) 100 ML IV NR (08:45)
[2016-11-09] MEDS: ENOXAPARIN 40 MG/0.4 ML (LOVENOX) SYR SC SCH (09:26)
[2016-11-09] MEDS: PANTOPRAZOLE 40 MG/10 ML (PROTONIX) VIAL IV SCH ×2 (09:26→20:08)
--- NOTE | 2016-11-09 09:53 | OPERATIVE REPORT ---
PROCEDURE PHYSICIAN: JUAN DOWNING DATE OF PROCEDURE: 11/07/2016 PREOPERATIVE DIAGNOSIS: Small bowel obstruction, possible internal hernia. POSTOPERATIVE DIAGNOSIS: 1. Small bowel obstruction caused by adhesions and internal hernia 2. 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 PROCEDURE: Exploratory laparotomy with lysis of adhesions. SURGEON: Moy. CALCINER OPERATOR: Dr. Loza, to assist in retraction, dissection, and closure. ANESTHESIA: General. ESTIMATED BLOOD LOSS: Minimal. COMPLICATIONS: None. INDICATIONS: The patient is an 81-year-old female who began having severe nausea and emesis yesterday. She had work-up in the emergency department and CT scan findings consistent with small bowel obstruction and possible internal hernia in the right lower quadrant. Transition point was visualized. The patient and her were explained risk and benefits of the procedure and wished to proceed with procedure. Consent was signed on chart. PROCEDURE: The patient was taken operating suite. She was prepped and draped in sterile fashion. A surgical pause was performed. Midline incision just inferior to the umbilicus was made and the abdomen was entered. There was a significant amount of straw appearing fluid within the abdomen, which was continually suctioned out. The small bowel was extremely dilated along with the stomach being significantly dilated as well. The small bowel was continued be ran and went to the ligament of Treitz and then ran towards the cecum. Once the small bowel was in the right lower quadrant, multiple adhesions were present in the right lower quadrant. Metzenbaums were used to begin dissecting along with blunt dissection. These adhesions continued to be released from the right lower quadrant and right gutter. Abdomen and small bowel was continued to be released, has the appearance of internal hernia and also slight rotation of the cecum consistent with a volvulus. Once all the adhesions were released, the cecum had normal appearance and laid in the right gutter and pelvis without any difficulty. The bowel was all viable. There is no evidence of any ischemic bowel present. The small bowel was then ran again and decompressed placing the small bowel contents back into stomach, which continued to be more dilated. There is an NG tube that was already within the stomach which continued to decompress the stomach. Once decompress the small bowel was ran again. There was a couple small serosal tears which were repaired using 3-0 silk pop off. The colon was inspected. The rectum and sigmoid colon, right colon, left colon, transverse colon and right colon all have normal appearance however, the colon is very floppy and redundant. There is no evidence of ischemia seen in the colon. There was one adhesion around the sigmoid colon to the left fallopian tube which was released as well. The abdomen was then irrigated with copious amounts of irrigation. The fascia was then closed using 1-0 loop PDS in a running fashion. The skin was then closed using rylie. The patient tolerated procedure well without any complications. She was taken to the recovery room in stable condition. Job ID: [id number] Dictated Date: 11/07/2016 19:12:56 Robotic Machine Tender Production Date: 11/09/2016 09:35:12 / treasure MARINELLI
--- NOTE | 2016-11-09 10:22 | Physical Therapy Daily Note ---
PT Daily Note-Current Subjective Patient states she is feeling much better today and agrees to PT. Pain Numeric Pain Scale: 5-Moderate Pain Location: Lower Location Body Site: Abdomen Pain Description: Ache Mental Status Patient Orientation: Normal For Age Attachments: NG Tube, IV Transfers Functional [place] Measure 0=Not Assessed/NA 4=Minimal Assistance 1=Total Assistance 5=Supervision or Setup 2=Maximal Assistance 6=Modified [place] 3=Moderate Assistance 7=Complete IndependenceIRFPAI Quality Coding Scale 6 Independent with activity with or without an assistive device 5 Patient requires set up or clean up by helper. Patient completes activity by themselves 4 Supervision or touching assist (CGA). [place] provide cues , steadying assist 3 The helper provides less than half the effort to complete the activity 2 The helper provides more than half the effort to complete the activity 1 Dependent. The helper does all the effort to complete an activity 7 Patient refused to complete or attempt activity 9 The patient did not perform the activity before the current illness or injury 88 Not attempted due to Medical conditions or safety concerns Transfers (B, C, W/C) (FIM): 5 Scootin Sit to/from Stand: 5 Gait Training Gait (FIM): 5 Distance (FIM): 3=150 ft Distance: 500' Gait Level of Assist: 5 Gait Assistive Device: FWW safe and functional with FWW Assessment Patient tolerated treatment well and is progressing. PT to increase activity as tolerated. PT Lumber Buyer Goals Lumber Buyer Goals PT Lumber Buyer Goals Time Frame: Nov 15, 2016 Transfers (B,C,W/C) (FIM): 7 Gait (FIM): 7 Gait distance (FIM): 3=150 ft Gait Level of Assist: 7 Gait Assistive Device: None, FWW PT Plan Treatment/Plan Treatment Plan: Continue Plan of Care Treatment Plan: Education, Functional Activity Damien, Functional Strength, Gait , Safety, Therapeutic Exercise, Transfers Treatment Duration: Nov 15, 2016 Visits Per Week: 5-6 Time/GCodes Time In: 1000 Time Out: 1010 Total Billed Treatment Time: 10 Total Billed Treatment 1 visit FA 10 min NICKY VALADEZ PT Nov 09, 2016 10:22
[2016-11-09] MEDS: SALIVA STIMULANT MOUTH SPRAY (BIOTENE) 1.5 OZ MM PRN (13:25)
[2016-11-09] MEDS: hydrALAZINE (APESOLINE) 20 MG/ML VIAL IV PRN (20:08)
[2016-11-10] VITALS (11 sets, daily range): BP systolic 140–181; BP diastolic 60–89
[2016-11-10] MEDS: hydrALAZINE (APESOLINE) 20 MG/ML VIAL IV PRN (00:59)
[2016-11-10] MEDS: PIPERACILLIN/TAZOBACTAM 4.5 GM/NS 100 ML IVPB IV SCH ×6 (00:59→17:43)
[2016-11-10 04:39] LABS: BASOPHILS % (AUTO) 0 % (0-10); EOSINOPHILS % (AUTO) 0 % (0-10); LYMPHOCYTES # (AUTO) 0.3 X 10^3 (1.0-4.0); LYMPHOCYTES % (AUTO) 4 % (12-44); MEAN CORPUSCULAR HEMOGLOBIN 32 PG (25-34); MEAN CORPUSCULAR HGB CONC 34 G/DL (32-36); MEAN CORPUSCULAR VOLUME 93 FL (80-99); MEAN PLATELET VOLUME 9.4 FL (7.4-10.4); MONOCYTES # (AUTO) 0.5 X 10^3 (0.0-1.0); MONOCYTES % (AUTO) 6 % (0-12); NEUTROPHILS # (AUTO) 6.6 X 10^3 (1.8-7.8); NEUTROPHILS % (AUTO) 90 % (42-75); PLATELET COUNT 271 10^3/uL (130-400); RED BLOOD COUNT 3.87 10^6/uL (4.35-5.85); WHITE BLOOD COUNT 7.3 10^3/uL (4.3-11.0)
[2016-11-10 05:09] LABS: ALANINE AMINOTRANSFERASE 13 U/L (0-55); ALBUMIN 3.5 G/DL (3.2-4.5); ANION GAP 18 MMOL/L (5-14); ASPARTATE AMINO TRANSFERASE 28 U/L (5-34); BILIRUBIN,TOTAL 0.6 MG/DL (0.1-1.0); BLOOD UREA NITROGEN 12 MG/DL (7-18); BUN/CREATININE RATIO 18; CALCIUM 8.1 MG/DL (8.5-10.1); CARBON DIOXIDE 14 MMOL/L (21-32); CHLORIDE 113 MMOL/L (98-107); CREATININE SERUM 0.66 MG/DL (0.60-1.30); GFR ESTIMATED > 60; GLUCOSE 72 MG/DL (70-105); MAGNESIUM 1.8 MG/DL (1.8-2.4); PHOSPHORUS 1.8 MG/DL (2.3-4.7); POTASSIUM 3.3 MMOL/L (3.6-5.0); SODIUM 145 MMOL/L (135-145); TOTAL PROTEIN 6.1 G/DL (6.4-8.2)
[2016-11-10] MEDS: KCL 20 MEQ TAB (K-DUR) PO SCH (05:34)
[2016-11-10] MEDS: MAGNESIUM 1 GM/100 ML IVPB 100 ML IV SCH (05:34)
[2016-11-10] MEDS: POTASSIUM CL 10MEQ/50ML IVPB 50 ML IV SCH ×4 (05:43→09:30)
[2016-11-10] MEDS: ENALAPRILAT 2.5 MG/2 ML (VASOTEC) VIAL IV SCH ×3 (05:44→17:43)
--- NOTE | 2016-11-10 06:31 | Pulmonary Progress Note ---
Exam Exam Vital Signs Date Time Temp Pulse Resp B/P Pulse Ox O2 Delivery O2 Flow Rate FiO2 11/10/16 04:05 Room Air 11/10/16 04:00 98.0 87 17 171/70 99 Room Air 11/10/16 02:30 99 11/10/16 02:00 92 19 163/65 98 Room Air 11/10/16 01:00 86 14 161/62 96 Room Air 11/10/16 01:00 84 11/10/16 00:00 83 14 163/68 95 Room Air 11/09/16 23:40 Room Air 11/09/16 23:30 99.2 105 22 175/70 96 Room Air 11/09/16 23:00 84 15 154/68 95 Room Air 11/09/16 22:38 96 11/09/16 22:00 81 19 158/62 96 Room Air 11/09/16 21:00 80 13 171/74 97 Room Air 11/09/16 20:15 Room Air 11/09/16 20:00 85 19 163/63 99 Room Air 11/09/16 19:00 77 11/09/16 19:00 98.1 80 16 165/74 97 Room Air 11/09/16 18:35 98 11/09/16 18:00 14 126/61 11/09/16 18:00 80 97 Room Air 11/09/16 17:00 76 16 165/65 Room Air 11/09/16 16:00 80 16 162/84 Room Air 11/09/16 15:13 Room Air 11/09/16 15:03 99.2 79 12 145/72 99 Room Air 11/09/16 14:20 99 11/09/16 14:04 75 15 161/68 98 Room Air 11/09/16 13:00 77 11/09/16 13:00 75 15 146/95 99 Room Air 11/09/16 12:00 79 14 139/58 98 Room Air 11/09/16 11:47 Room Air 11/09/16 11:19 99.2 82 20 157/65 100 Room Air 11/09/16 11:00 73 23 158/62 99 Room Air 11/09/16 10:30 67 24 154/63 Room Air 11/09/16 09:00 68 12 153/60 98 Room Air 11/09/16 08:00 73 17 149/67 98 Room Air 11/09/16 07:30 98.6 69 11 152/60 94 Room Air 11/09/16 07:30 Room Air 11/09/16 07:04 97 11/09/16 07:00 66 11/09/16 07:00 70 15 149/67 96 Room Air I & O 11/10/16 07:00 Intake Total 2740 ml Output Total 2075 ml Balance 665 ml General Appearance: Thin Other (laying in bed but about to be assisted to chair. ) HEENT: PERRL/EOMI Pharynx Normal Neck: Full Range of Motion Normal Inspection Non Tender Supple Carotid Bruit Respiratory: Chest Non Tender Lungs Clear Normal Breath Sounds Cardiovascular: Regular Rate, Rhythm No Edema Capillary Refill: Less Than 3 Seconds Gastrointestinal: normal bowel sounds distended (mildly distended, incisional tenderness, slight erythema to right side of wound) Extremity: Normal Capillary Refill Non Tender No Calf Tenderness No Pedal Edema Neurologic/Psychiatric: Alert Oriented x3 No Motor/Sensory Deficits Normal Mood/Affect Skin: Normal Color Warm/Dry Lymphatic: No Adenopathy Results Lab Laboratory Tests 11/08/16 14:10 11/09/16 04:00 11/09/16 14:00 11/10/16 04:13 Assessment/Plan Assessment/Plan 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 Winter is following hypokalemia, hypophos -replace Hypertension -vasotec 1.25 IV Q 6 -hydralazine 10mg IV Q4PRN for SBP >160 -Add HCTZ 25mg PO daily, and Lopressor 25mg BID -Decrease IVF to 50cc/hr - Abdominal pain GERD -protonix Clinical Quality Measures DVT/VTE Risk/Contraindication: Risk Factor Score Per Nursin RFS Level Per Nursing on Admit: 2=Moderate IBETH BELTRAN DO Nov 10, 2016 06:31
[2016-11-10] MEDS ORDERED: POTASSIUM PHOSPHATE INJ 30 MM in NS (IVPB) 250 ML IV NR (06:45)
[2016-11-10] MEDS ORDERED: POTASSIUM CL 10MEQ/50ML IVPB 50 ML IV SCH (06:45)
[2016-11-10] MEDS: HYDROCHLOROTHIAZIDE 25 MG (HCTZ) TAB PO SCH (06:49)
[2016-11-10] MEDS: meTOprolol TARTRATE 25 MG (LOPRESSOR) TABLET PO SCH ×2 (06:49→21:49)
--- NOTE | 2016-11-10 07:47 | Diagnostic Imaging Report ---
INDICATION: Dyspnea. PA chest obtained at 4:54 a.m. FINDINGS: Heart and mediastinal silhouette are normal in appearance. There is an NG tube seen with tip below the film. There is hyperinflation compatible with COPD. There is no acute infiltrate or pneumothorax or pleural fluid. IMPRESSION: COPD changes with hyperinflation. No overt consolidation or pleural fluid. NG tube tip is below the film. Dictated by: Dictated on workstation # [id number]
--- NOTE | 2016-11-10 08:55 | Progress Note (SOAP) ---
Subjective Subjective/Events-last exam LATE ENTRY NOTE FOR 11/09/16 PT FEELING BETTER, UP IN CHAIR AT BEDSIDE. PT REPORTS MINIMAL DISCOMFORT, NOT YET PASSING GAS Review of Systems General: Fatigue HEENT: No Head Aches Pulmonary: No Dyspnea, No Cough Cardiovascular: No: Chest Pain Gastrointestinal: : Abdominal PainNo: Nausea Neurological: : WeaknessNo: Confusion Objective Exam Vital Signs Date Time Temp Pulse Resp B/P Pulse Ox O2 Delivery O2 Flow Rate FiO2 11/10/16 08:31 Room Air 11/10/16 08:29 100.1 78 19 158/89 99 Room Air 11/10/16 06:00 84 14 177/71 99 Room Air 11/10/16 05:00 83 14 181/89 98 Room Air 11/10/16 04:05 Room Air 11/10/16 04:00 98.0 87 17 171/70 99 Room Air 11/10/16 03:00 90 17 178/74 91 Room Air 11/10/16 02:30 99 11/10/16 02:00 92 19 163/65 98 Room Air 11/10/16 01:00 86 14 161/62 96 Room Air 11/10/16 01:00 84 11/10/16 00:00 83 14 163/68 95 Room Air 11/09/16 23:40 Room Air 11/09/16 23:30 99.2 105 22 175/70 96 Room Air 11/09/16 23:00 84 15 154/68 95 Room Air 11/09/16 22:38 96 11/09/16 22:00 81 19 158/62 96 Room Air 11/09/16 21:00 80 13 171/74 97 Room Air 11/09/16 20:15 Room Air 11/09/16 20:00 85 19 163/63 99 Room Air 11/09/16 19:00 77 11/09/16 19:00 98.1 80 16 165/74 97 Room Air 11/09/16 18:35 98 11/09/16 18:00 14 126/61 11/09/16 18:00 80 97 Room Air 11/09/16 17:00 76 16 165/65 Room Air 11/09/16 16:00 80 16 162/84 Room Air 11/09/16 15:13 Room Air 11/09/16 15:03 99.2 79 12 145/72 99 Room Air 11/09/16 14:20 99 11/09/16 14:04 75 15 161/68 98 Room Air 11/09/16 13:00 77 11/09/16 13:00 75 15 146/95 99 Room Air 11/09/16 12:00 79 14 139/58 98 Room Air 11/09/16 11:47 Room Air 11/09/16 11:19 99.2 82 20 157/65 100 Room Air 11/09/16 11:00 73 23 158/62 99 Room Air 11/09/16 10:30 67 24 154/63 Room Air 11/09/16 09:00 68 12 153/60 98 Room Air I & O 11/10/16 07:00 Intake Total 2790 ml Output Total 2075 ml Balance 715 ml Capillary Refill : Less Than 3 Seconds General Appearance: No Apparent Distress Thin HEENT: PERRL/EOMI Other (NG TUBE IN PLACE) Neck: Supple Respiratory: Chest Non Tender Lungs Clear Normal Breath Sounds No Accessory Muscle Use Cardiovascular: Regular Rate, Rhythm Gastrointestinal: other (BOWEL SOUNDS, ) Neurologic/Psychiatric: Alert Oriented x3 No Motor/Sensory Deficits Normal Mood/Affect Skin: Warm/Dry Results Lab Laboratory Tests 11/09/16 14:00: Potassium Level 3.5L 11/10/16 04:13: Potassium Level 3.3L, Alanine Aminotransferase (ALT/SGPT) 13, Albumin 3.5, Alkaline Phosphatase 57, Anion Gap 18H, Aspartate Amino Transf (AST/SGOT) 28, BUN/Creatinine Ratio 18, Basophils # (Auto) 0.0, Basophils (%) (Auto) 0, Blood Urea Nitrogen 12, Calcium Level 8.1L, Carbon Dioxide Level 14L, Chloride Level 113H, Creatinine 0.66, Eosinophils # (Auto) 0.0, Eosinophils (%) (Auto) 0, Estimat Glomerular Filtration Rate > 60, Glucose Level 72, Hematocrit 36, Hemoglobin 12.2, Lymphocytes # (Auto) 0.3L, Lymphocytes (%) (Auto) 4L, Magnesium Level 1.8, Mean Corpuscular Hemoglobin 32, Mean Corpuscular Hemoglobin Concent 34, Mean Corpuscular Volume 93, Mean Platelet Volume 9.4, Monocytes # (Auto) 0.5, Monocytes (%) (Auto) 6, Neutrophils # (Auto) 6.6, Neutrophils (%) (Auto) 90H, Phosphorus Level 1.8L, Platelet Count 271, Red Blood Count 3.87L, Red Cell Distribution Width 15.0H, Sodium Level 145, Total Bilirubin 0.6, Total Protein 6.1L, White Blood Count 7.3 Assessment/Plan Assessment/Plan Assess & Plan/Chief Complaint SMALL BOWEL OBSTRUCTION ABDOMINAL PAIN NAUSEA GERD HYPERLIPIDEMIA HYPERTENSION SMALL BOWEL OBSTRUCTION WITH NAUSEA AND ABDOMINAL PAIN - CONTINUE WITH NG TUBE, PT IS POST - OP - SEE DR. DOWNING'S NOTE FOR FULL DETAILS. 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 GERD - START PROTONIX IV HYPERLIPIDEMIA AND HYPERTENSION - HOLD MEDS ORALLY AT THIS TIME, WILL GIVE PRN LOPRESSOR IV IF NEEDED FOR HTN. SCD'S FOR DVT PROPHYLAXIS, LOVENOX Diagnosis/Problems: Clinical Quality Measures DVT/VTE Risk/Contraindication: Risk Factor Score Per Nursin RFS Level Per Nursing on Admit: 2=Moderate ZEV FARRAR MD Nov 10, 2016 08:55
--- NOTE | 2016-11-10 08:56 | Progress Note (SOAP) ---
Subjective Subjective/Events-last exam PT REPORTS FEELING BETTER TODAY - STILL NO BOWEL MOVEMENT - BUT PT DENIES PAIN IN HER ABDOMEN. SHE STATES THAT SHE HAS BEEN WALKING IN THE [place] WITH STAFF, FEELS STRONGER. Review of Systems General: No Fatigue, No Malaise Pulmonary: No Dyspnea, No Cough Cardiovascular: No: Chest Pain Gastrointestinal: : Abdominal Pain (FROM SURGERY)No: Nausea Genitourinary: No Dysuria Musculoskeletal: No: back pain Neurological: No: Confusion, Weakness Objective Exam Vital Signs Date Time Temp Pulse Resp B/P Pulse Ox O2 Delivery O2 Flow Rate FiO2 11/10/16 08:31 Room Air 11/10/16 08:29 100.1 78 19 158/89 99 Room Air 11/10/16 06:00 84 14 177/71 99 Room Air 11/10/16 05:00 83 14 181/89 98 Room Air 11/10/16 04:05 Room Air 11/10/16 04:00 98.0 87 17 171/70 99 Room Air 11/10/16 03:00 90 17 178/74 91 Room Air 11/10/16 02:30 99 11/10/16 02:00 92 19 163/65 98 Room Air 11/10/16 01:00 86 14 161/62 96 Room Air 11/10/16 01:00 84 11/10/16 00:00 83 14 163/68 95 Room Air 11/09/16 23:40 Room Air 11/09/16 23:30 99.2 105 22 175/70 96 Room Air 11/09/16 23:00 84 15 154/68 95 Room Air 11/09/16 22:38 96 11/09/16 22:00 81 19 158/62 96 Room Air 11/09/16 21:00 80 13 171/74 97 Room Air 11/09/16 20:15 Room Air 11/09/16 20:00 85 19 163/63 99 Room Air 11/09/16 19:00 77 11/09/16 19:00 98.1 80 16 165/74 97 Room Air 11/09/16 18:35 98 11/09/16 18:00 14 126/61 11/09/16 18:00 80 97 Room Air 11/09/16 17:00 76 16 165/65 Room Air 11/09/16 16:00 80 16 162/84 Room Air 11/09/16 15:13 Room Air 11/09/16 15:03 99.2 79 12 145/72 99 Room Air 11/09/16 14:20 99 11/09/16 14:04 75 15 161/68 98 Room Air 11/09/16 13:00 77 11/09/16 13:00 75 15 146/95 99 Room Air 11/09/16 12:00 79 14 139/58 98 Room Air 11/09/16 11:47 Room Air 11/09/16 11:19 99.2 82 20 157/65 100 Room Air 11/09/16 11:00 73 23 158/62 99 Room Air 11/09/16 10:30 67 24 154/63 Room Air 11/09/16 09:00 68 12 153/60 98 Room Air I & O 11/10/16 07:00 Intake Total 2790 ml Output Total 2075 ml Balance 715 ml Capillary Refill : Less Than 3 Seconds General Appearance: WD/WN Thin HEENT: PERRL/EOMI Pharynx Normal Neck: Full Range of Motion Supple Respiratory: Chest Non Tender Lungs Clear Normal Breath Sounds No Accessory Muscle Use Cardiovascular: Regular Rate, Rhythm Gastrointestinal: other (IMPROVED BOWEL SOUNDS - SKIN NOW NORMAL WITHOUT EYRTHEMA AROUND SURGICAL SITE) Extremity: Normal Capillary Refill No Calf Tenderness Neurologic/Psychiatric: Alert Oriented x3 No Motor/Sensory Deficits Normal Mood/Affect Skin: Warm/Dry Lymphatic: No Adenopathy Results Lab Laboratory Tests 11/09/16 14:00: Potassium Level 3.5L 11/10/16 04:13: Potassium Level 3.3L, Alanine Aminotransferase (ALT/SGPT) 13, Albumin 3.5, Alkaline Phosphatase 57, Anion Gap 18H, Aspartate Amino Transf (AST/SGOT) 28, BUN/Creatinine Ratio 18, Basophils # (Auto) 0.0, Basophils (%) (Auto) 0, Blood Urea Nitrogen 12, Calcium Level 8.1L, Carbon Dioxide Level 14L, Chloride Level 113H, Creatinine 0.66, Eosinophils # (Auto) 0.0, Eosinophils (%) (Auto) 0, Estimat Glomerular Filtration Rate > 60, Glucose Level 72, Hematocrit 36, Hemoglobin 12.2, Lymphocytes # (Auto) 0.3L, Lymphocytes (%) (Auto) 4L, Magnesium Level 1.8, Mean Corpuscular Hemoglobin 32, Mean Corpuscular Hemoglobin Concent 34, Mean Corpuscular Volume 93, Mean Platelet Volume 9.4, Monocytes # (Auto) 0.5, Monocytes (%) (Auto) 6, Neutrophils # (Auto) 6.6, Neutrophils (%) (Auto) 90H, Phosphorus Level 1.8L, Platelet Count 271, Red Blood Count 3.87L, Red Cell Distribution Width 15.0H, Sodium Level 145, Total Bilirubin 0.6, Total Protein 6.1L, White Blood Count 7.3 Assessment/Plan Assessment/Plan Assess & Plan/Chief Complaint SMALL BOWEL OBSTRUCTION ABDOMINAL PAIN NAUSEA GERD HYPERLIPIDEMIA HYPERTENSION SMALL BOWEL OBSTRUCTION WITH NAUSEA AND ABDOMINAL PAIN - CONTINUE WITH NG TUBE, PT IS POST - OP - SEE DR. DOWNING'S NOTE FOR FULL DETAILS. 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 GERD - START PROTONIX IV HYPERLIPIDEMIA - HOLD MEDS HTN - UNCONTROLLED - ON IV MEDS - STARTED ORAL MEDS THIS MORNING - WILL TRANSITION FULLY TO ORAL WHEN TAKING BETTER PO SCD'S FOR DVT PROPHYLAXIS, LOVENOX Diagnosis/Problems: Clinical Quality Measures DVT/VTE Risk/Contraindication: Risk Factor Score Per Nursin RFS Level Per Nursing on Admit: 2=Moderate ZEV FARRAR MD Nov 10, 2016 08:56
--- NOTE | 2016-11-10 08:57 | Physician Query-General Query ---
Physician Query-General Query to Physician: [facility] SOP Coding Query Via [facility] Exhibit D9 Accidental OP Laceration Template Operative Report: (There was a couple small serosal tears which were repaired using 3-0 silk pop off) Question: Should these (2 small serosal tears) be classified as: Please document a response in the Progress Notes or Discharge Summary. 1. A complication of the procedure 2. Integral to the procedure 3. Not clinically significant 4. Other with explanation of the clinical findings 5. Clinically undetermined In responding to this query, please exercise your independent professional judgment. The purpose of this communication is to more accurately reflect the complexity of your patients condition. The fact that a question is asked does not imply that any particular answer is desired or expected. Thank you for your timely response to this clarification. THIS PHYSICIAN QUERY FORM IS A PERMANENT PART OF THE MEDICAL RECORD PHYSICIAN RESPONSE: Based on the clinical findings in the record, please respond to the query above on this document as an addendum. Possible, probable, or questionable diagnosis can be coded for INPATIENTS ONLY. Physician Response: Physician Response These were caused by taking down adhesions. If you have questions please contact: Technical Services Analyst:Yanni Gale CCS,CCDS Ext:[phone] Thank you for your time and cooperation. Clinical Miter Grinder Operator/Technical Services Analyst This is a permanent part of the medical record YANNI GALE Nov 10, 2016 08:57 JUAN DOWNING DO Nov 15, 2016 16:57
--- NOTE | 2016-11-10 09:28 | Progress Note ---
Subjective Subjective/Events-last exam Patient is alert and oriented. She is in cheerful mood. She denies any nausea or vomiting. Even respirations. No distress or discomfort is noted at this time. Abdomen is soft to palpation. Slightly distended. Patient denies passing any flatus at this time. Objective Exam Vital Signs Date Time Temp Pulse Resp B/P Pulse Ox O2 Delivery O2 Flow Rate FiO2 11/10/16 08:31 Room Air 11/10/16 08:29 100.1 78 19 158/89 99 Room Air 11/10/16 08:00 95 11/10/16 06:00 84 14 177/71 99 Room Air 11/10/16 05:00 83 14 181/89 98 Room Air 11/10/16 04:05 Room Air 11/10/16 04:00 98.0 87 17 171/70 99 Room Air 11/10/16 03:00 90 17 178/74 91 Room Air 11/10/16 02:30 99 11/10/16 02:00 92 19 163/65 98 Room Air 11/10/16 01:00 86 14 161/62 96 Room Air 11/10/16 01:00 84 11/10/16 00:00 83 14 163/68 95 Room Air 11/09/16 23:40 Room Air 11/09/16 23:30 99.2 105 22 175/70 96 Room Air 11/09/16 23:00 84 15 154/68 95 Room Air 11/09/16 22:38 96 11/09/16 22:00 81 19 158/62 96 Room Air 11/09/16 21:00 80 13 171/74 97 Room Air 11/09/16 20:15 Room Air 11/09/16 20:00 85 19 163/63 99 Room Air 11/09/16 19:00 77 11/09/16 19:00 98.1 80 16 165/74 97 Room Air 11/09/16 18:35 98 11/09/16 18:00 14 126/61 11/09/16 18:00 80 97 Room Air 11/09/16 17:00 76 16 165/65 Room Air 11/09/16 16:00 80 16 162/84 Room Air 11/09/16 15:13 Room Air 11/09/16 15:03 99.2 79 12 145/72 99 Room Air 11/09/16 14:20 99 11/09/16 14:04 75 15 161/68 98 Room Air 11/09/16 13:00 77 11/09/16 13:00 75 15 146/95 99 Room Air 11/09/16 12:00 79 14 139/58 98 Room Air 11/09/16 11:47 Room Air 11/09/16 11:19 99.2 82 20 157/65 100 Room Air 11/09/16 11:00 73 23 158/62 99 Room Air 11/09/16 10:30 67 24 154/63 Room Air I & O 11/10/16 07:00 Intake Total 2790 ml Output Total 2075 ml Balance 715 ml Capillary Refill : Less Than 3 Seconds General Appearance: No Apparent Distress Thin HEENT: PERRL/EOMI Other (NG TUBE IN PLACE) Neck: Normal Inspection Supple Respiratory: Chest Non Tender No Accessory Muscle Use No Respiratory Distress Cardiovascular: Regular Rate, Rhythm Gastrointestinal: soft tenderness (mildly tender around incision. Incision clean and dry. minimal brusing, no redness or drainage. ) other (BOWEL SOUNDS, ) Extremity: Normal Capillary Refill Non Tender No Calf Tenderness No Pedal Edema Neurologic/Psychiatric: Alert Oriented x3 No Motor/Sensory Deficits Normal Mood/Affect Skin: Warm/Dry Lymphatic: No Adenopathy Results Lab Laboratory Tests Test 11/08/16 14:10 11/09/16 04:00 11/09/16 14:00 11/10/16 04:13 Range/Units Alanine Aminotransferase (ALT/SGPT) 12 11 13 0-55 U/L Albumin 3.4 3.2 3.5 3.2-4.5 G/DL Alkaline Phosphatase 49 47 57 40-136 U/L Anion Gap 12 15 H 18 H 5-14 MMOL/L Aspartate Amino Transf (AST/SGOT) 29 23 28 5-34 U/L BUN/Creatinine Ratio 26 27 18 Band Neutrophils 4 % Basophils # (Auto) 0.0 0.0 0.0 0.0-0.1 10^3/uL Basophils % (Manual) 0 % Basophils (%) (Auto) 0 0 0 0-10 % Blood Morphology Comment NORMAL Blood Urea Nitrogen 17 17 12 7-18 MG/DL Calcium Level 8.0 L 7.9 L 8.1 L 8.5-10.1 MG/DL Carbon Dioxide Level 21 19 L 14 L 21-32 MMOL/L Chloride Level 106 109 H 113 H 98-107 MMOL/L Creatinine 0.66 0.64 0.66 0.60-1.30 MG/DL Eosinophils # (Auto) 0.0 0.0 0.0 0.0-0.3 10^3/uL Eosinophils % (Manual) 0 % Eosinophils (%) (Auto) 0 1 0 0-10 % Estimat Glomerular Filtration Rate > 60 > 60 > 60 Glucose Level 88 70 72 70-105 MG/DL Hematocrit 37 33 L 36 35-52 % Hemoglobin 12.5 11.0 L 12.2 11.5-16.0 G/DL Lymphocytes # (Auto) 0.5 L 0.4 L 0.3 L 1.0-4.0 X 10^3 Lymphocytes % (Manual) 6 % Lymphocytes (%) (Auto) 5 L 5 L 4 L 12-44 % Mean Corpuscular Hemoglobin 31 31 32 25-34 PG Mean Corpuscular Hemoglobin Concent 34 33 34 32-36 G/DL Mean Corpuscular Volume 92 93 93 80-99 FL Mean Platelet Volume 9.3 9.3 9.4 7.4-10.4 FL Monocytes # (Auto) 0.8 0.6 0.5 0.0-1.0 X 10^3 Monocytes % (Manual) 1 % Monocytes (%) (Auto) 7 8 6 0-12 % Neutrophils # (Auto) 9.9 H 6.0 6.6 1.8-7.8 X 10^3 Neutrophils % (Manual) 89 % Neutrophils (%) (Auto) 88 H 86 H 90 H 42-75 % Platelet Count 242 237 271 130-400 10^3/uL Potassium Level 3.5 L 3.0 L 3.5 L 3.3 L 3.6-5.0 MMOL/L Red Blood Count 3.98 L 3.53 L 3.87 L 4.35-5.85 10^6/uL Red Cell Distribution Width 14.5 14.7 H 15.0 H 10.0-14.5 % Sodium Level 139 143 145 135-145 MMOL/L Total Bilirubin 1.0 0.8 0.6 0.1-1.0 MG/DL Total Protein 5.8 L 5.4 L 6.1 L 6.4-8.2 G/DL White Blood Count 11.2 H 7.0 7.3 4.3-11.0 10^3/uL Magnesium Level 1.8 1.8 1.8-2.4 MG/DL Phosphorus Level 2.2 L 1.8 L 2.3-4.7 MG/DL Laboratory Tests 11/09/16 14:00: Potassium Level 3.5L 11/10/16 04:13: Potassium Level 3.3L, Alanine Aminotransferase (ALT/SGPT) 13, Albumin 3.5, Alkaline Phosphatase 57, Anion Gap 18H, Aspartate Amino Transf (AST/SGOT) 28, BUN/Creatinine Ratio 18, Basophils # (Auto) 0.0, Basophils (%) (Auto) 0, Blood Urea Nitrogen 12, Calcium Level 8.1L, Carbon Dioxide Level 14L, Chloride Level 113H, Creatinine 0.66, Eosinophils # (Auto) 0.0, Eosinophils (%) (Auto) 0, Estimat Glomerular Filtration Rate > 60, Glucose Level 72, Hematocrit 36, Hemoglobin 12.2, Lymphocytes # (Auto) 0.3L, Lymphocytes (%) (Auto) 4L, Magnesium Level 1.8, Mean Corpuscular Hemoglobin 32, Mean Corpuscular Hemoglobin Concent 34, Mean Corpuscular Volume 93, Mean Platelet Volume 9.4, Monocytes # (Auto) 0.5, Monocytes (%) (Auto) 6, Neutrophils # (Auto) 6.6, Neutrophils (%) (Auto) 90H, Phosphorus Level 1.8L, Platelet Count 271, Red Blood Count 3.87L, Red Cell Distribution Width 15.0H, Sodium Level 145, Total Bilirubin 0.6, Total Protein 6.1L, White Blood Count 7.3 Assessment/Plan Assessment/Plan Assessment/Plan small bowel obstruction secondary to adhesions with component of internal hernia and cecal volvulus Hypokalemia NG tube to be clamped and patient started on Ensure clears. If no N/v per patient NG tube might be pulled tomorrow. Called to be made to Dr. Loza if any N/V in the next 6 hours. Patient to continue with PT. Patient to continue with IS. Clinical Quality Measures DVT/VTE Risk/Contraindication: Risk Factor Score Per Nursin RFS Level Per Nursing on Admit: 2=Moderate Physician Assessment Physician Assessment Pt seen and examined. Denies Nausea and Vomiting. Per nurse, very little NGT output. Abd: soft, non-tender, mildly distended Plan is to clamp NGT and start sips of Ensure Clears. At 18:00 reattach NGT to wall suction and determine output. If output is less than pt take in and she has no N/V then will probably increase to full liquids and possibly d/c NGT tomorrow. AYE ISIDRO APRN Nov 10, 2016 9:28 am KIYA LOZA DO Nov 10, 2016 11:29 am
--- NOTE | 2016-11-10 09:57 | Physical Therapy Daily Note ---
PT Daily Note-Current Subjective Patient is very agreeable to participate with PT. Pain Numeric Pain Scale: 5-Moderate Pain Location: Lower Location Body Site: Abdomen Pain Description: Acute Mental Status Patient Orientation: Normal For Age Attachments: NG Tube, IV Transfers Functional [place] Measure 0=Not Assessed/NA 4=Minimal Assistance 1=Total Assistance 5=Supervision or Setup 2=Maximal Assistance 6=Modified [place] 3=Moderate Assistance 7=Complete IndependenceIRFPAI Quality Coding Scale 6 Independent with activity with or without an assistive device 5 Patient requires set up or clean up by helper. Patient completes activity by themselves 4 Supervision or touching assist (CGA). [place] provide cues , steadying assist 3 The helper provides less than half the effort to complete the activity 2 The helper provides more than half the effort to complete the activity 1 Dependent. The helper does all the effort to complete an activity 7 Patient refused to complete or attempt activity 9 The patient did not perform the activity before the current illness or injury 88 Not attempted due to Medical conditions or safety concerns Transfers (B, C, W/C) (FIM): 5 Scootin Rollin Supine to/from Sit: 5 Sit to/from Stand: 5 Gait Training Gait (FIM): 5 Distance (FIM): 3=150 ft Distance: 500' Gait Level of Assist: 5 Gait Persons Needed: 1 Gait Assistive Device: FWW safe and functional with FWW Assessment Patient is progressing with improved mobility. Patient is highly motivated to return to home when medically stable. PT Half-Way Goals Manager Mental Health Goals PT Manager Mental Health Goals Time Frame: Nov 15, 2016 Transfers (B,C,W/C) (FIM): 7 Gait (FIM): 7 Gait distance (FIM): 3=150 ft Gait Level of Assist: 7 Gait Assistive Device: None, FWW PT Plan Treatment/Plan Treatment Plan: Continue Plan of Care Treatment Plan: Education, Functional Activity [place], Functional Strength, Gait , Safety, Therapeutic Exercise, Transfers Treatment Duration: Nov 15, 2016 Visits Per Week: 5-6 Time/GCodes Time In: 845 Time Out: 908 Total Billed Treatment Time: 23 Total Billed Treatment 1 visit FA x 2 23 min NICKY VALADEZ PT Nov 10, 2016 09:57
[2016-11-10] MEDS: PANTOPRAZOLE 40 MG/10 ML (PROTONIX) VIAL IV SCH ×2 (10:21→21:49)
[2016-11-10] MEDS: ENOXAPARIN 40 MG/0.4 ML (LOVENOX) SYR SC SCH (10:21)
[2016-11-10] MEDS: DILTIAZEM 30 MG (CARDIZEM) TAB PO SCH ×3 (10:21→21:49)
--- NOTE | 2016-11-10 10:51 | Diagnostic Imaging Report ---
INDICATION: PICC line placement Comparison study: Chest from earlier today. Findings: A portable upright view of the chest demonstrates interval placement of right arm PICC line with its tip in the inferior aspect of SVC. An enteric tube again seen to transverse the radiograph. COPD changes are present. Heart size and vascularity are normal. There are no infiltrates. Bilateral pulmonary nodules are consistent with the patient's nipples. IMPRESSION: 1. PICC line placement in good position. 2. COPD. Dictated by: Dictated on workstation # [id number]
--- NOTE | 2016-11-10 10:53 | Diagnostic Imaging Report ---
INDICATION: Surgery FINDINGS: The catheter is in the distal stomach. There is some stool within the rectosigmoid without luminal dilatation or amada impaction. Some air within left flank small bowel loops the majority however their distention improved when correlated with CT November 07. IMPRESSION: Increased distal fecal loading, left abdominal small bowel distention improved. Catheter in the stomach. Dictated by: Dictated on workstation # [id number]
[2016-11-10] MEDS: NS IV 1000 ML 1,000 ML IV SCH (15:20)
[2016-11-11] VITALS: BP 146/62
[2016-11-11] MEDS: ENALAPRILAT 2.5 MG/2 ML (VASOTEC) VIAL IV SCH ×2 (00:29→05:33)
[2016-11-11] MEDS: PIPERACILLIN/TAZOBACTAM 4.5 GM/NS 100 ML IVPB IV SCH ×6 (00:29→17:11)
[2016-11-11 04:00] VITALS: BP 155/64
[2016-11-11 04:12] LABS: BASOPHILS % (AUTO) 0 % (0-10); EOSINOPHILS # (AUTO) 0.4 10^3/uL (0.0-0.3); EOSINOPHILS % (AUTO) 6 % (0-10); LYMPHOCYTES # (AUTO) 0.6 X 10^3 (1.0-4.0); LYMPHOCYTES % (AUTO) 8 % (12-44); MEAN CORPUSCULAR HEMOGLOBIN 31 PG (25-34); MEAN CORPUSCULAR HGB CONC 34 G/DL (32-36); MEAN CORPUSCULAR VOLUME 91 FL (80-99); MEAN PLATELET VOLUME 9.1 FL (7.4-10.4); MONOCYTES # (AUTO) 0.5 X 10^3 (0.0-1.0); MONOCYTES % (AUTO) 7 % (0-12); NEUTROPHILS # (AUTO) 5.3 X 10^3 (1.8-7.8); NEUTROPHILS % (AUTO) 79 % (42-75); PLATELET COUNT 247 10^3/uL (130-400); RED BLOOD COUNT 3.63 10^6/uL (4.35-5.85); RED CELL DISTRIBUTION WIDTH 14.8 % (10.0-14.5); WHITE BLOOD COUNT 6.7 10^3/uL (4.3-11.0)
[2016-11-11 04:18] LABS: ALANINE AMINOTRANSFERASE 13 U/L (0-55); ALBUMIN 3.1 G/DL (3.2-4.5); ANION GAP 10 MMOL/L (5-14); ASPARTATE AMINO TRANSFERASE 24 U/L (5-34); BILIRUBIN,TOTAL 0.7 MG/DL (0.1-1.0); BLOOD UREA NITROGEN 8 MG/DL (7-18); BUN/CREATININE RATIO 15; CALCIUM 7.8 MG/DL (8.5-10.1); CARBON DIOXIDE 22 MMOL/L (21-32); CHLORIDE 111 MMOL/L (98-107); CREATININE SERUM 0.55 MG/DL (0.60-1.30); GFR ESTIMATED > 60; GLUCOSE 103 MG/DL (70-105); MAGNESIUM 1.7 MG/DL (1.8-2.4); PHOSPHORUS 1.3 MG/DL (2.3-4.7); POTASSIUM 3.1 MMOL/L (3.6-5.0); SODIUM 143 MMOL/L (135-145); TOTAL PROTEIN 5.2 G/DL (6.4-8.2)
[2016-11-11] MEDS ORDERED: POTASSIUM PHOSPHATE INJ 30 MM in NS (IVPB) 250 ML IV NR (06:00)
--- NOTE | 2016-11-11 06:01 | Pulmonary Progress Note ---
Subjective Subjective/Events-last exam No complications noted. Pt is doing well. SHe is 4th floor over flow. Exam Exam Vital Signs Date Time Temp Pulse Resp B/P Pulse Ox O2 Delivery O2 Flow Rate FiO2 11/11/16 04:00 100.4 66 18 155/64 96 Room Air 11/11/16 02:17 94 11/11/16 01:00 59 11/11/16 00:00 99.2 64 18 146/62 96 Room Air 11/11/16 00:00 Room Air 11/10/16 22:46 95 11/10/16 20:00 97.5 70 18 156/66 100 Room Air 11/10/16 20:00 Room Air 11/10/16 19:00 62 11/10/16 18:56 95 11/10/16 16:00 98.4 98 18 174/60 97 Room Air 11/10/16 16:00 Room Air 11/10/16 13:00 69 11/10/16 12:12 Room Air 11/10/16 12:11 99.2 70 18 140/70 98 Room Air 11/10/16 08:31 Room Air 11/10/16 08:29 100.1 78 19 158/89 99 Room Air 11/10/16 08:00 95 11/10/16 07:00 79 11/10/16 06:00 84 14 177/71 99 Room Air I & O 11/11/16 07:00 Intake Total 250 ml Output Total 1150 ml Balance -900 ml General Appearance: No Apparent Distress Thin HEENT: PERRL/EOMI Other (NG TUBE IN PLACE) Neck: Normal Inspection Supple Respiratory: Chest Non Tender No Accessory Muscle Use No Respiratory Distress Cardiovascular: Regular Rate, Rhythm Capillary Refill: Less Than 3 Seconds Gastrointestinal: soft tenderness (mildly tender around incision. Incision clean and dry. minimal brusing, no redness or drainage. ) other (BOWEL SOUNDS, ) Extremity: Normal Capillary Refill Non Tender No Calf Tenderness No Pedal Edema Neurologic/Psychiatric: Alert Oriented x3 No Motor/Sensory Deficits Normal Mood/Affect Skin: Warm/Dry Lymphatic: No Adenopathy Results Lab Laboratory Tests 11/09/16 14:00 11/10/16 04:13 11/11/16 03:38 Assessment/Plan Assessment/Plan SBO with cecal volvulus s/p ex demetrio -Dr. Winter is following hypokalemia, hypophos Hypertension Abdominal pain GERD -protonix Pt is 4th floor overflow and on RA. I am going to sign off. Please call with any questions or concerns. Clinical Quality Measures DVT/VTE Risk/Contraindication: Risk Factor Score Per Nursin RFS Level Per Nursing on Admit: 2=Moderate IBETH BELTRAN DO Nov 11, 2016 06:01
[2016-11-11] MEDS: POTASSIUM CL 10MEQ/50ML IVPB 50 ML IV SCH ×4 (06:25→11:31)
[2016-11-11] MEDS: MAGNESIUM 1 GM/100 ML IVPB 100 ML IV SCH ×2 (06:26→07:59)
--- NOTE | 2016-11-11 07:55 | Diagnostic Imaging Report ---
Portable AP radiograph of the chest. INDICATION: Dyspnea. COMPARISON: 11/10/2016. FINDINGS: Again seen NG tube and PICC line both in good position. There is hyperinflation of the lungs with no focal infiltrate. There are prominent calcific densities in the costochondral junctions. Basilar nodular densities are probably related to the nipple shadows. Heart size is normal. No effusion or pneumothorax. Mediastinum and get appear unremarkable. IMPRESSION: COPD. No focal infiltrate. Dictated by: Dictated on workstation # [id number]
--- NOTE | 2016-11-11 08:18 | Progress Note ---
Subjective Subjective/Events-last exam Patient resting in bed. Even respirations. No distress. Bowel sounds. BM x2. No nausea or vomiting after having NG tube clamped for several hours. Sips of Ensure Clear well tolerated. Objective Exam Vital Signs Date Time Temp Pulse Resp B/P Pulse Ox O2 Delivery O2 Flow Rate FiO2 11/11/16 07:00 68 11/11/16 06:54 95 11/11/16 04:00 100.4 66 18 155/64 96 Room Air 11/11/16 02:17 94 11/11/16 01:00 59 11/11/16 00:00 99.2 64 18 146/62 96 Room Air 11/11/16 00:00 Room Air 11/10/16 22:46 95 11/10/16 20:00 97.5 70 18 156/66 100 Room Air 11/10/16 20:00 Room Air 11/10/16 19:00 62 11/10/16 18:56 95 11/10/16 16:00 98.4 98 18 174/60 97 Room Air 11/10/16 16:00 Room Air 11/10/16 13:00 69 11/10/16 12:12 Room Air 11/10/16 12:11 99.2 70 18 140/70 98 Room Air 11/10/16 08:31 Room Air 11/10/16 08:29 100.1 78 19 158/89 99 Room Air I & O 11/11/16 07:00 Intake Total 300 ml Output Total 1600 ml Balance -1300 ml Capillary Refill : Less Than 3 Seconds General Appearance: No Apparent Distress Thin HEENT: PERRL/EOMI Other (NG TUBE IN PLACE) Neck: Normal Inspection Supple Respiratory: Chest Non Tender No Accessory Muscle Use No Respiratory Distress Cardiovascular: Regular Rate, Rhythm Gastrointestinal: normal bowel sounds soft tenderness (mildly tender around incision. Incision clean and dry. minimal brusing, no redness or drainage. ) other (BOWEL SOUNDS, ) Extremity: Normal Capillary Refill Non Tender No Calf Tenderness No Pedal Edema Neurologic/Psychiatric: Alert Oriented x3 No Motor/Sensory Deficits Normal Mood/Affect Skin: Warm/Dry Lymphatic: No Adenopathy Results Lab Laboratory Tests Test 11/09/16 14:00 11/10/16 04:13 11/11/16 03:38 Range/Units Potassium Level 3.5 L 3.3 L 3.1 L 3.6-5.0 MMOL/L Alanine Aminotransferase (ALT/SGPT) 13 13 0-55 U/L Albumin 3.5 3.1 L 3.2-4.5 G/DL Alkaline Phosphatase 57 46 40-136 U/L Anion Gap 18 H 10 5-14 MMOL/L Aspartate Amino Transf (AST/SGOT) 28 24 5-34 U/L BUN/Creatinine Ratio 18 15 Basophils # (Auto) 0.0 0.0 0.0-0.1 10^3/uL Basophils (%) (Auto) 0 0 0-10 % Blood Urea Nitrogen 12 8 7-18 MG/DL Calcium Level 8.1 L 7.8 L 8.5-10.1 MG/DL Carbon Dioxide Level 14 L 22 21-32 MMOL/L Chloride Level 113 H 111 H 98-107 MMOL/L Creatinine 0.66 0.55 L 0.60-1.30 MG/DL Eosinophils # (Auto) 0.0 0.4 H 0.0-0.3 10^3/uL Eosinophils (%) (Auto) 0 6 0-10 % Estimat Glomerular Filtration Rate > 60 > 60 Glucose Level 72 103 70-105 MG/DL Hematocrit 36 33 L 35-52 % Hemoglobin 12.2 11.2 L 11.5-16.0 G/DL Lymphocytes # (Auto) 0.3 L 0.6 L 1.0-4.0 X 10^3 Lymphocytes (%) (Auto) 4 L 8 L 12-44 % Magnesium Level 1.8 1.7 L 1.8-2.4 MG/DL Mean Corpuscular Hemoglobin 32 31 25-34 PG Mean Corpuscular Hemoglobin Concent 34 34 32-36 G/DL Mean Corpuscular Volume 93 91 80-99 FL Mean Platelet Volume 9.4 9.1 7.4-10.4 FL Monocytes # (Auto) 0.5 0.5 0.0-1.0 X 10^3 Monocytes (%) (Auto) 6 7 0-12 % Neutrophils # (Auto) 6.6 5.3 1.8-7.8 X 10^3 Neutrophils (%) (Auto) 90 H 79 H 42-75 % Phosphorus Level 1.8 L 1.3 L 2.3-4.7 MG/DL Platelet Count 271 247 130-400 10^3/uL Red Blood Count 3.87 L 3.63 L 4.35-5.85 10^6/uL Red Cell Distribution Width 15.0 H 14.8 H 10.0-14.5 % Sodium Level 145 143 135-145 MMOL/L Total Bilirubin 0.6 0.7 0.1-1.0 MG/DL Total Protein 6.1 L 5.2 L 6.4-8.2 G/DL White Blood Count 7.3 6.7 4.3-11.0 10^3/uL Laboratory Tests 11/11/16 03:38: Alanine Aminotransferase (ALT/SGPT) 13, Albumin 3.1L, Alkaline Phosphatase 46, Anion Gap 10, Aspartate Amino Transf (AST/SGOT) 24, BUN/Creatinine Ratio 15, Basophils # (Auto) 0.0, Basophils (%) (Auto) 0, Blood Urea Nitrogen 8, Calcium Level 7.8L, Carbon Dioxide Level 22, Chloride Level 111H, Creatinine 0.55L, Eosinophils # (Auto) 0.4H, Eosinophils (%) (Auto) 6, Estimat Glomerular Filtration Rate > 60, Glucose Level 103, Hematocrit 33L, Hemoglobin 11.2L, Lymphocytes # (Auto) 0.6L, Lymphocytes (%) (Auto) 8L, Magnesium Level 1.7L, Mean Corpuscular Hemoglobin 31, Mean Corpuscular Hemoglobin Concent 34, Mean Corpuscular Volume 91, Mean Platelet Volume 9.1, Monocytes # (Auto) 0.5, Monocytes (%) (Auto) 7, Neutrophils # (Auto) 5.3, Neutrophils (%) (Auto) 79H, Phosphorus Level 1.3L, Platelet Count 247, Potassium Level 3.1L, Red Blood Count 3.63L, Red Cell Distribution Width 14.8H, Sodium Level 143, Total Bilirubin 0.7, Total Protein 5.2L, White Blood Count 6.7 Assessment/Plan Assessment/Plan Assessment/Plan small bowel obstruction secondary to adhesions with component of internal hernia and cecal volvulus Hypokalemia- . Passing flatus and having bowel movement. NG tube discontinued. Electrolytes being replaced (magnesium, phosphorus and potassium). To start patient on clear liquids. If not nauseated can be advanced as tolerated in a day. We will also continue with PT. Patient to continue with IS. Clinical Quality Measures DVT/VTE Risk/Contraindication: Risk Factor Score Per Nursin RFS Level Per Nursing on Admit: 2=Moderate Physician Assessment Physician Assessment Pt seen, no N/V. Tolerating diet. Increase as tolerated. Can be d/c'd home per Dr Bradshaw. AYE ISIDRO APRN Nov 11, 2016 08:18 KIYA WOLFE DO Nov 11, 2016 10:00
[2016-11-11] MEDS ORDERED: DOCU-143 PO ×2 (09:05→09:55)
[2016-11-11] MEDS ORDERED: HYDR-3812 PO ×2 (09:05→09:56)
--- NOTE | 2016-11-11 09:14 | Discharge Inst-Simple/Standard ---
Discharge Inst-Standard Patient Instructions/Follow Up Plan of Care/Instructions/FU: Follow up with Dr. Winter in 2 weeks Follow up with Dr. Bradshaw in one week Take medications as directed. NO lifting any over 7 lbs Start out on clear liquid and if tolerated advance to soft diet for a few days and then to solid food. Activity as Tolerated: No Discharge Diet: Liquid Diet Other Inst to Patient Follow up Appt: Make appointment for 2 weeks. Instructions: No lifting greater than 7 pounds. No strenuous activity. May shower in 24 hours, no tub bath or soaking. Use incentive spirometer at home as directed. No Smoking Skin/Wound Care: May remove bandages. Keep incision clean and dry. Symptoms to Report: Appetite Changes, Extremity Discoloration, Numbness/Tingling, Swelling Increased , Bleeding Excessive, Eyesight Changes, Pain Increased, Urine Color Change, Constipation(Persistent), Fever over 101 degree F, Pain/Pressure in chest, Urinating Difficulty, Cough Up/Vomit Blood, Heart Beat Irreg/Pounding, Pain/ Pressure in jaw, Vaginal Bleeding Increase, Cramps in feet or legs, Lightheadedness, Pain/Pressure in shoulder, Diarrhea(Persistent), Memory Changes Suddenly, Questions/Concerns, Weight gain consecutive days, Dizziness/ Fainting, Nausea/Vomiting, Shortness of Breath, Weight gain over 2 pounds If questions or concerns contact your physician Or seek help at emergency department. AYE ISIDRO APRN Nov 11, 2016 09:14
--- NOTE | 2016-11-11 11:04 | Physical Therapy Daily Note ---
PT Daily Note-Current Subjective Patient agrees to PT. No voiced concerns at this time. Pain Numeric Pain Scale: 0-No Pain Location: No Pain Reported Mental Status Patient Orientation: Normal For Age Attachments: IV Transfers Functional [place] Measure 0=Not Assessed/NA 4=Minimal Assistance 1=Total Assistance 5=Supervision or Setup 2=Maximal Assistance 6=Modified [place] 3=Moderate Assistance 7=Complete IndependenceIRFPAI Quality Coding Scale 6 Independent with activity with or without an assistive device 5 Patient requires set up or clean up by helper. Patient completes activity by themselves 4 Supervision or touching assist (CGA). [place] provide cues , steadying assist 3 The helper provides less than half the effort to complete the activity 2 The helper provides more than half the effort to complete the activity 1 Dependent. The helper does all the effort to complete an activity 7 Patient refused to complete or attempt activity 9 The patient did not perform the activity before the current illness or injury 88 Not attempted due to Medical conditions or safety concerns Transfers (B, C, W/C) (FIM): 6 Scootin Supine to/from Sit: 6 Sit to/from Stand: 6 Gait Training Gait (FIM): 6 Distance (FIM): 3=150 ft Distance: 500' Gait Level of Assist: 6 Gait Assistive Device: FWW safe and functional; increased ravi Assessment Patient tolerated treatment well and is progressing. PT Care Home Goals Care Home Goals PT Care Home Goals Time Frame: Nov 15, 2016 Transfers (B,C,W/C) (FIM): 7 Gait (FIM): 7 Gait distance (FIM): 3=150 ft Gait Level of Assist: 7 Gait Assistive Device: None, FWW PT Plan Treatment/Plan Treatment Plan: Continue Plan of Care Treatment Plan: Education, Functional Activity Damien, Functional Strength, Gait , Safety, Therapeutic Exercise, Transfers Treatment Duration: Nov 15, 2016 Visits Per Week: 5-6 Time/GCodes Time In: 1045 Time Out: 1055 Total Billed Treatment Time: 10 Total Billed Treatment 1 visit FA 10 min NICKY VALADEZ PT Nov 11, 2016 11:04
[2016-11-11] MEDS: DILTIAZEM 30 MG (CARDIZEM) TAB PO SCH ×3 (11:05→21:11)
[2016-11-11] MEDS: ENOXAPARIN 40 MG/0.4 ML (LOVENOX) SYR SC SCH (11:05)
[2016-11-11] MEDS: meTOprolol TARTRATE 25 MG (LOPRESSOR) TABLET PO SCH (11:05)
[2016-11-11] MEDS: PANTOPRAZOLE 40 MG/10 ML (PROTONIX) VIAL IV SCH ×2 (11:06→21:11)
[2016-11-11] MEDS: HYDROCHLOROTHIAZIDE 25 MG (HCTZ) TAB PO SCH (11:34)
--- NOTE | 2016-11-11 14:33 | Progress Note (SOAP) ---
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 PT REPORTS FEELING BETTER TODAY - DISCUSSED WITH SURGERY - NG TUBE REMOVED TODAY - PT HAD TWO BOWEL MOVEMENTS OVERNIGHT. SHE STATES THAT SHE HAS BEEN WALKING WITH THERAPY STAFF WELL THE NURSING STAFF OF ICU. SHE REPORTS THAT SHE THINKS HER STRENGTH IS BETTER. SHE HAS MILD ABDOMINAL DISCOMFORT, BUT NOT BAD YESTERDAY. Review of Systems General: No Fatigue HEENT: No Head Aches Pulmonary: No Dyspnea, No Cough Cardiovascular: No: Chest Pain Gastrointestinal: : Abdominal Pain (MILD)No: Constipation, Diarrhea, Nausea Genitourinary: No Dysuria Neurological: No: Confusion, Weakness Objective Exam Vital Signs Date Time Temp Pulse Resp B/P Pulse Ox O2 Delivery O2 Flow Rate FiO2 11/11/16 12:00 97.8 Room Air 11/11/16 12:00 Room Air 11/11/16 10:00 97 11/11/16 08:00 Room Air 11/11/16 08:00 98.7 Room Air 11/11/16 07:00 68 11/11/16 06:54 95 11/11/16 04:00 100.4 66 18 155/64 96 Room Air 11/11/16 02:17 94 11/11/16 01:00 59 11/11/16 00:00 99.2 64 18 146/62 96 Room Air 11/11/16 00:00 Room Air 11/10/16 22:46 95 11/10/16 20:00 97.5 70 18 156/66 100 Room Air 11/10/16 20:00 Room Air 11/10/16 19:00 62 11/10/16 18:56 95 11/10/16 16:00 98.4 98 18 174/60 97 Room Air 11/10/16 16:00 Room Air I & O 11/11/16 07:00 Intake Total 300 ml Output Total 1600 ml Balance -1300 ml Capillary Refill : Less Than 3 Seconds General Appearance: No Apparent Distress Thin HEENT: PERRL/EOMI Pharynx Normal Neck: Full Range of Motion Respiratory: Chest Non Tender Lungs Clear Normal Breath Sounds No Accessory Muscle Use Cardiovascular: Regular Rate, Rhythm Gastrointestinal: normal bowel sounds non tender soft other ([place] SURGICAL SITE C/D/I, NO ERYTHEMA) Extremity: Normal Capillary Refill No Pedal Edema Neurologic/Psychiatric: Alert Oriented x3 No Motor/Sensory Deficits Normal Mood/Affect Skin: Warm/Dry Lymphatic: No Adenopathy Results Lab Laboratory Tests 11/11/16 03:38: Alanine Aminotransferase (ALT/SGPT) 13, Albumin 3.1L, Alkaline Phosphatase 46, Anion Gap 10, Aspartate Amino Transf (AST/SGOT) 24, BUN/Creatinine Ratio 15, Basophils # (Auto) 0.0, Basophils (%) (Auto) 0, Blood Urea Nitrogen 8, Calcium Level 7.8L, Carbon Dioxide Level 22, Chloride Level 111H, Creatinine 0.55L, Eosinophils # (Auto) 0.4H, Eosinophils (%) (Auto) 6, Estimat Glomerular Filtration Rate > 60, Glucose Level 103, Hematocrit 33L, Hemoglobin 11.2L, Lymphocytes # (Auto) 0.6L, Lymphocytes (%) (Auto) 8L, Magnesium Level 1.7L, Mean Corpuscular Hemoglobin 31, Mean Corpuscular Hemoglobin Concent 34, Mean Corpuscular Volume 91, Mean Platelet Volume 9.1, Monocytes # (Auto) 0.5, Monocytes (%) (Auto) 7, Neutrophils # (Auto) 5.3, Neutrophils (%) (Auto) 79H, Phosphorus Level 1.3L, Platelet Count 247, Potassium Level 3.1L, Red Blood Count 3.63L, Red Cell Distribution Width 14.8H, Sodium Level 143, Total Bilirubin 0.7, Total Protein 5.2L, White Blood Count 6.7 Assessment/Plan Assessment/Plan Assess & Plan/Chief Complaint SMALL BOWEL OBSTRUCTION ABDOMINAL PAIN NAUSEA GERD HYPERLIPIDEMIA HYPERTENSION SMALL BOWEL OBSTRUCTION WITH NAUSEA AND ABDOMINAL PAIN - IMPROVED POST OPERATIVELY - NG TUBE REMOVED THIS MORNING - ADVANCING DIET - HOPEFULLY HOME ON MONDAY WITH HOME HEALTH. GERD - STARTED PROTONIX IV HYPERLIPIDEMIA - HOLD MEDS HTN - UNCONTROLLED - STOP IV MEDS - INCREASED TOPROL, RESTARTED DILTIAZEM ORALLY - MONITOR SYMPTOMS SCD'S FOR DVT PROPHYLAXIS, LOVENOX Diagnosis/Problems: Clinical Quality Measures DVT/VTE Risk/Contraindication: Risk Factor Score Per Nursin RFS Level Per Nursing on Admit: 2=Moderate ZEV FARRAR MD Nov 11, 2016 14:33
[2016-11-11 14:40] VITALS: BP 198/81
[2016-11-11 16:00] VITALS: BP 163/75
[2016-11-11 20:00] VITALS: BP 172/84
[2016-11-11] MEDS: meTOprolol TARTRATE 50 MG (LOPRESSOR) TAB PO SCH (21:11)
[2016-11-12] VITALS: BP 178/73
[2016-11-12] MEDS: ONDANSETRON 4 MG/2 ML (SDV) Z0FRAN IV PRN (01:36)
[2016-11-12] MEDS: PIPERACILLIN/TAZOBACTAM 4.5 GM/NS 100 ML IVPB IV SCH ×6 (01:37→17:22)
[2016-11-12 04:00] VITALS: BP 178/74
[2016-11-12 04:22] LABS: ALANINE AMINOTRANSFERASE 13 U/L (0-55); ALBUMIN 3.1 G/DL (3.2-4.5); ANION GAP 11 MMOL/L (5-14); ASPARTATE AMINO TRANSFERASE 27 U/L (5-34); BILIRUBIN,TOTAL 0.6 MG/DL (0.1-1.0); BLOOD UREA NITROGEN 5 MG/DL (7-18); BUN/CREATININE RATIO 9; CALCIUM 7.7 MG/DL (8.5-10.1); CARBON DIOXIDE 25 MMOL/L (21-32); CHLORIDE 102 MMOL/L (98-107); CREATININE SERUM 0.54 MG/DL (0.60-1.30); GFR ESTIMATED > 60; GLUCOSE 95 MG/DL (70-105); POTASSIUM 3.5 MMOL/L (3.6-5.0); SODIUM 138 MMOL/L (135-145); TOTAL PROTEIN 4.8 G/DL (6.4-8.2)
[2016-11-12 08:00] VITALS: BP_SYST 144; BP_SYST 168; BP_DIAS 61; BP_DIAS 74
[2016-11-12] MEDS: HYDROCHLOROTHIAZIDE 25 MG (HCTZ) TAB PO SCH (08:48)
[2016-11-12] MEDS: PANTOPRAZOLE 40 MG/10 ML (PROTONIX) VIAL IV SCH ×2 (08:48→20:55)
[2016-11-12] MEDS: meTOprolol TARTRATE 50 MG (LOPRESSOR) TAB PO SCH ×2 (08:49→20:55)
[2016-11-12] MEDS: DILTIAZEM 30 MG (CARDIZEM) TAB PO SCH ×3 (08:49→20:55)
[2016-11-12] MEDS: ENOXAPARIN 40 MG/0.4 ML (LOVENOX) SYR SC SCH (08:49)
--- NOTE | 2016-11-12 09:10 | Physical Therapy Daily Note ---
PT Daily Note-Current Subjective Pt. sitting up in bed, says she was just up to the bathroom (I). She readily agrees to ambulate in halls. Mental Status Patient Orientation: Normal For Age Transfers Functional [place] Measure 0=Not Assessed/NA 4=Minimal Assistance 1=Total Assistance 5=Supervision or Setup 2=Maximal Assistance 6=Modified [place] 3=Moderate Assistance 7=Complete IndependenceIRFPAI Quality Coding Scale 6 Independent with activity with or without an assistive device 5 Patient requires set up or clean up by helper. Patient completes activity by themselves 4 Supervision or touching assist (CGA). [place] provide cues , steadying assist 3 The helper provides less than half the effort to complete the activity 2 The helper provides more than half the effort to complete the activity 1 Dependent. The helper does all the effort to complete an activity 7 Patient refused to complete or attempt activity 9 The patient did not perform the activity before the current illness or injury 88 Not attempted due to Medical conditions or safety concerns Transfers (B, C, W/C) (FIM): 6 Supine to/from Sit: 6 Sit to/from Stand: 6 Gait Training Gait (FIM): 5 Distance (FIM): 3=150 ft Distance: 700 ft Gait Level of Assist: 5 Gait Assistive Device: None no amada LOB but occasionally has deviations in gait path Neuromuscular gait Treatments Pt. did well with ambulation, is (I) with mobility in her room, and appears to be nearing PLOF. Assessment Current Status: Good Progress PT Mcfp Goals Senior Litigation Paralegal Goals PT Senior Litigation Paralegal Goals Time Frame: Nov 15, 2016 Transfers (B,C,W/C) (FIM): 7 Gait (FIM): 7 Gait distance (FIM): 3=150 ft Gait Level of Assist: 7 Gait Assistive Device: None, FWW PT Plan Treatment/Plan Treatment Plan: Continue Plan of Care Treatment Plan: Education, Functional Activity Damien, Functional Strength, Gait , Safety, Therapeutic Exercise, Transfers Treatment Duration: Nov 15, 2016 Visits Per Week: 5-6 Time/GCodes Time In: 750 Time Out: 800 Total Billed Treatment Time: 10 Total Billed Treatment 1, GT 10' BERT LOMELI PT Nov 12, 2016 09:10
--- NOTE | 2016-11-12 11:38 | Progress Note (SOAP) ---
Subjective Subjective/Events-last exam Fwup SBO due to adhesions, internal hernia, cecal volvulus--S/P exploratory lap with CHENG, Hypertension, GERD. NG tube out and on pureed diet. Having BMs. Some abdominal cramping with nausea last night but better this AM. Objective Exam Vital Signs Date Time Temp Pulse Resp B/P Pulse Ox O2 Delivery O2 Flow Rate FiO2 11/12/16 11:24 98 11/12/16 08:00 97.8 63 18 168/74 98 Room Air 11/12/16 07:13 97 11/12/16 04:00 98.6 61 18 178/74 98 Room Air 11/12/16 02:34 97 11/12/16 00:00 98.8 61 18 178/73 95 Room Air 11/11/16 22:24 96 11/11/16 20:00 Room Air 11/11/16 20:00 98.9 74 18 172/84 97 Room Air 11/11/16 19:06 97 11/11/16 16:00 99.5 64 18 163/75 97 Room Air 11/11/16 15:53 98 11/11/16 14:40 98.3 70 17 198/81 97 Room Air 11/11/16 12:30 Room Air 11/11/16 12:00 97.8 Room Air 11/11/16 12:00 Room Air I & O 11/12/16 07:00 Intake Total 1200 ml Balance 1200 ml Capillary Refill : Less Than 3 Seconds General Appearance: No Apparent Distress Respiratory: Lungs Clear Cardiovascular: Regular Rate, Rhythm Gallop/S4 Gastrointestinal: normal bowel sounds non tender soft other (rylie intact with no surrounding erythema) Extremity: Non Tender No Calf Tenderness No Pedal Edema Neurologic/Psychiatric: Alert Oriented x3 Results Lab Laboratory Tests 11/12/16 03:35: Alanine Aminotransferase (ALT/SGPT) 13, Albumin 3.1L, Alkaline Phosphatase 46, Anion Gap 11, Aspartate Amino Transf (AST/SGOT) 27, BUN/Creatinine Ratio 9, Blood Urea Nitrogen 5L, Calcium Level 7.7L, Carbon Dioxide Level 25, Chloride Level 102, Creatinine 0.54L, Estimat Glomerular Filtration Rate > 60, Glucose Level 95, Potassium Level 3.5L, Sodium Level 138, Total Bilirubin 0.6, Total Protein 4.8L Assessment/Plan Assessment/Plan Assess & Plan/Chief Complaint 1. SBO due to adhesions, internal hernia, and cecal volvulus--S/P exp lap with CHENG, NG tube out, advance diet per surgery 2. Hypertension--home meds restarted 3. GERD--on protonix 4. Weakness--improving, continue PT Diagnosis/Problems: Clinical Quality Measures DVT/VTE Risk/Contraindication: Risk Factor Score Per Nursin RFS Level Per Nursing on Admit: 2=Moderate BHARGAV WAHL DO Nov 12, 2016 11:38
[2016-11-12 12:00] VITALS: BP 144/62
--- NOTE | 2016-11-12 14:27 | Progress Note ---
Subjective Subjective/Events-last exam Pt seen and examined, hungry and wants to increase diet. +BM, ambulating and using IS Review of Systems General: No Chills, No Night Sweats Pulmonary: No Cough Cardiovascular: No: Chest Pain Gastrointestinal: No: Abdominal Pain, Nausea, Vomiting Objective Exam Vital Signs Date Time Temp Pulse Resp B/P Pulse Ox O2 Delivery O2 Flow Rate FiO2 11/12/16 12:00 97.7 58 18 144/62 99 Room Air 11/12/16 11:24 98 11/12/16 08:00 97.8 63 18 168/74 95 Room Air 11/12/16 07:13 97 11/12/16 04:00 98.6 61 18 178/74 98 Room Air 11/12/16 02:34 97 11/12/16 00:00 98.8 61 18 178/73 95 Room Air 11/11/16 22:24 96 11/11/16 20:00 Room Air 11/11/16 20:00 98.9 74 18 172/84 97 Room Air 11/11/16 19:06 97 11/11/16 16:00 99.5 64 18 163/75 97 Room Air 11/11/16 15:53 98 11/11/16 14:40 98.3 70 17 198/81 97 Room Air I & O 11/12/16 07:00 Intake Total 1200 ml Balance 1200 ml Capillary Refill : Less Than 3 Seconds General Appearance: No Apparent Distress Thin HEENT: PERRL/EOMI Pharynx Normal Neck: Full Range of Motion Respiratory: Lungs Clear No Accessory Muscle Use Cardiovascular: Regular Rate, Rhythm Gallop/S4 Gastrointestinal: normal bowel sounds non tender soft other (incision c/d/i) Extremity: Non Tender No Calf Tenderness No Pedal Edema Neurologic/Psychiatric: Alert Oriented x3 Skin: Warm/Dry Lymphatic: No Adenopathy Results Lab Laboratory Tests 11/12/16 03:35: Alanine Aminotransferase (ALT/SGPT) 13, Albumin 3.1L, Alkaline Phosphatase 46, Anion Gap 11, Aspartate Amino Transf (AST/SGOT) 27, BUN/Creatinine Ratio 9, Blood Urea Nitrogen 5L, Calcium Level 7.7L, Carbon Dioxide Level 25, Chloride Level 102, Creatinine 0.54L, Estimat Glomerular Filtration Rate > 60, Glucose Level 95, Potassium Level 3.5L, Sodium Level 138, Total Bilirubin 0.6, Total Protein 4.8L Assessment/Plan Assessment/Plan Assessment/Plan 1. SBO due to adhesions, internal hernia, and cecal volvulus--S/P exp lap with CHENG. Pt ok to go home when ok with medicine. Start regular diet. 2. Hypertension--home meds restarted 3. GERD--on protonix 4. Weakness--improving, continue PT Clinical Quality Measures DVT/VTE Risk/Contraindication: Risk Factor Score Per Nursin RFS Level Per Nursing on Admit: 2=Moderate KIYA WOLFE DO Nov 12, 2016 14:27
[2016-11-12 15:54] VITALS: BP 171/74
[2016-11-12 20:30] VITALS: BP 177/74
[2016-11-13] VITALS: BP 172/69
[2016-11-13] MEDS: PIPERACILLIN/TAZOBACTAM 4.5 GM/NS 100 ML IVPB IV SCH ×4 (01:47→09:04)
[2016-11-13 08:00] VITALS: BP 147/81
[2016-11-13 08:14] VITALS: BP 147/81
[2016-11-13] MEDS: meTOprolol TARTRATE 50 MG (LOPRESSOR) TAB PO SCH ×2 (09:04→22:20)
[2016-11-13] MEDS: ENOXAPARIN 40 MG/0.4 ML (LOVENOX) SYR SC SCH (09:04)
[2016-11-13] MEDS: HYDROCHLOROTHIAZIDE 25 MG (HCTZ) TAB PO SCH (09:04)
[2016-11-13] MEDS: DILTIAZEM 30 MG (CARDIZEM) TAB PO SCH ×3 (09:04→22:20)
[2016-11-13] MEDS: PANTOPRAZOLE 40 MG/10 ML (PROTONIX) VIAL IV SCH ×2 (09:04→22:21)
--- NOTE | 2016-11-13 10:09 | Progress Note (SOAP) ---
Subjective Subjective/Events-last exam Fwup SBO due to adhesions, internal hernia, cecal volvulus--S/P exploratory lap with CHENG, Hypertension, GERD. Diet advanced by surgery and tolerating well. Looks good--up in chair and feels a lot stronger. Objective Exam Vital Signs Date Time Temp Pulse Resp B/P Pulse Ox O2 Delivery O2 Flow Rate FiO2 11/13/16 08:14 96.9 73 20 147/81 100 Room Air 11/13/16 08:00 96.9 73 20 147/81 100 Room Air 11/13/16 00:00 98.5 63 18 172/69 97 Room Air 11/12/16 20:30 97.5 59 18 177/74 97 Room Air 11/12/16 20:00 Room Air 11/12/16 15:54 97.0 59 18 171/74 99 Room Air 11/12/16 12:00 97.7 58 18 144/62 99 Room Air 11/12/16 11:24 98 I & O 11/13/16 07:00 Intake Total 1450 ml Balance 1450 ml Capillary Refill : Less Than 3 Seconds General Appearance: No Apparent Distress Respiratory: Lungs Clear Cardiovascular: Regular Rate, Rhythm Gastrointestinal: normal bowel sounds non tender soft other (rylie in place with no drainage or erythema from wound) Extremity: Non Tender No Calf Tenderness No Pedal Edema Neurologic/Psychiatric: Alert Oriented x3 Assessment/Plan Assessment/Plan Assess & Plan/Chief Complaint 1. SBO due to adhesions, internal hernia, and cecal volvulus--S/P exp lap with CHENG, NG tube out, tolerating advanced diet well 2. Hypertension--home meds restarted 3. GERD--on protonix 4. Weakness--improving, continue PT 5. Hypokalemia--replace potassium and check lab in AM Diagnosis/Problems: Clinical Quality Measures DVT/VTE Risk/Contraindication: Risk Factor Score Per Nursin RFS Level Per Nursing on Admit: 2=Moderate BHARGAV WAHL DO Nov 13, 2016 10:09
[2016-11-13] MEDS ORDERED: KCL 20 MEQ TAB (K-DUR) PO ONE (10:15)
[2016-11-13 16:00] VITALS: BP 146/81
[2016-11-14] VITALS: BP 159/73
[2016-11-14 08:00] VITALS: BP 159/74
[2016-11-14] MEDS: PANTOPRAZOLE 40 MG/10 ML (PROTONIX) VIAL IV SCH (08:51)
[2016-11-14] MEDS: HYDROCHLOROTHIAZIDE 25 MG (HCTZ) TAB PO SCH (08:51)
[2016-11-14] MEDS: meTOprolol TARTRATE 50 MG (LOPRESSOR) TAB PO SCH (08:51)
[2016-11-14] MEDS: DILTIAZEM 30 MG (CARDIZEM) TAB PO SCH (08:51)
[2016-11-14] MEDS: ENOXAPARIN 40 MG/0.4 ML (LOVENOX) SYR SC SCH (08:52)
--- NOTE | 2016-11-14 09:20 | Progress Note (SOAP) ---
Subjective Subjective/Events-last exam PT REPORTS FEELING STRONG, SHE DOES NOT THINK THAT SHE WANTS HOME HEALTH UPON DISCHARGE. PT REPORTS PASSING GAS TODAY, SHE ALSO REPORTS A MILD FEVER LAST NIGHT. Review of Systems General: Fatigue HEENT: No Head Aches Pulmonary: No Dyspnea, No Cough Cardiovascular: No: Chest Pain Gastrointestinal: : Abdominal Pain (INTERMITTENT)No: Nausea Genitourinary: No Dysuria Musculoskeletal: No: back pain Neurological: No: Confusion, Weakness Objective Exam Vital Signs Date Time Temp Pulse Resp B/P Pulse Ox O2 Delivery O2 Flow Rate FiO2 11/14/16 08:00 99.4 65 18 159/74 97 Room Air 11/14/16 00:00 98.8 62 18 159/73 98 Room Air 11/13/16 22:00 Room Air 11/13/16 16:00 98.0 62 18 146/81 98 Room Air I & O 11/14/16 07:00 Intake Total 2350 ml Balance 2350 ml Capillary Refill : Less Than 3 Seconds General Appearance: No Apparent Distress WD/WN HEENT: PERRL/EOMI Pharynx Normal Neck: Full Range of Motion Supple Respiratory: Chest Non Tender Lungs Clear Normal Breath Sounds No Accessory Muscle Use No Respiratory Distress Cardiovascular: Regular Rate, Rhythm Gastrointestinal: normal bowel sounds non tender soft no organomegaly other ( SURGICAL SITE MID ABDOMEN C/D/I - ISABEL INTACT) Extremity: Normal Capillary Refill No Pedal Edema Neurologic/Psychiatric: Alert Oriented x3 No Motor/Sensory Deficits Normal Mood/Affect Skin: Warm/Dry Lymphatic: No Adenopathy Assessment/Plan Assessment/Plan Assess & Plan/Chief Complaint SMALL BOWEL OBSTRUCTION ABDOMINAL PAIN NAUSEA GERD HYPERLIPIDEMIA HYPERTENSION SMALL BOWEL OBSTRUCTION WITH NAUSEA AND ABDOMINAL PAIN - IMPROVED POST OPERATIVELY - DIET ADVANCED - HOME TODAY GERD - STARTED PROTONIX IV HYPERLIPIDEMIA - HOLD MEDS HTN - UNCONTROLLED - STOP IV MEDS - INCREASED TOPROL, RESTARTED DILTIAZEM ORALLY - MONITOR SYMPTOMS SCD'S FOR DVT PROPHYLAXIS, LOVENOX Diagnosis/Problems: Clinical Quality Measures DVT/VTE Risk/Contraindication: Risk Factor Score Per Nursin RFS Level Per Nursing on Admit: 2=Moderate ZEV FARRAR MD Nov 14, 2016 09:20
--- NOTE | 2016-11-14 09:22 | Discharge Inst-Complex ---
PDI Med Rec & Follow Up Appt. New Medications: Docusate Sodium (Colace) 100 Mg Capsule 100 MG PO BID #60 CAP Hydrocodone/Acetaminophen (Hydrocodon -Acetaminophen 5-325) 1 Each Tablet 1 EACH PO Q4H PRN PAIN #30 Ref 0 TAB Continued Medications: Calcium Carbonate/Vitamin D3 (Calcium 500 + D Tablet) 1 Each Tablet 1 TAB PO DAILY TAB Cholecalciferol (Vitamin D3) (Vitamin D) 2,000 Unit Capsule 2000 UNIT PO DAILY CAP Clorazepate Dipotassium (Clorazepate Dipotassium) 3.75 Mg Tablet 3.75 MG PO DAILY TAB Diltiazem HCl (Diltiazem HCl) 30 Mg Tablet 30 MG PO TID TAB Escitalopram Oxalate (Escitalopram Oxalate) 5 Mg Tablet 5 MG PO HS TAB Esomeprazole Magnesium (Esomeprazole Magnesium) 40 Mg Capsule.dr 40 MG PO DAILY CAP Famotidine (Famotidine) 40 Mg Tablet 40 MG PO HS TAB Fluorouracil (Fluorouracil) 40 Gm Cream..g. TOP DAILY PRN SKIN EA Fluticasone Propionate (Fluticasone Propionate) 16 Gm [place].susp 1 SPRAY NS BID PRN ALLERGIES EA Multivitamin (Daily Multiple Vitamin) 1 Each Tablet 1 TAB PO DAILY TAB Pyridoxine HCl (Vitamin B-6) 100 Mg Tablet 100 MG PO BID TAB Simvastatin (Simvastatin) 20 Mg Tablet 20 MG PO HS TAB Sucralfate (Sucralfate) 1 Gm/10 Ml Oral.susp 10 ML PO TIDWM EA Triamterene/Hydrochlorothiazid (Triamterene-Hctz 37.5-25 mg Tb) 1 Each Tablet 1 TAB PO DAILY TAB Vit A/Vit C/Vit E/Zinc/Copper (Preservision Tablet) 1 Each Tablet 1 TAB PO BID TAB Prescription: Transmitted to Pharmacy Activity, Diet and PDI Discharge Diet: Regular Diet Symptoms to Reoprt to DrKenneth: Swelling Increased, Bleeding Excessive, Constipation (Persistant), Fever Over 101 Degrees F, Diarrhea(Persistant), Shortness of Breath For Problems or Questions: Contact Your Physician, Go to Emergency Room Infection Signs and Symptoms: Increased Redness, Foul Odor of Wound, Skin Itchy or Has a Rash, Temperature Above 101 F Stitches/[place]argo/Dermabond: Care of ZEV Perez MD Nov 14, 2016 09:22
--- NOTE | 2016-11-14 09:26 | Progress Note ---
Subjective Subjective/Events-last exam pt seating up in bed. Easily aroused. Even respirations. No distress or discomfort noted. Objective Exam Vital Signs Date Time Temp Pulse Resp B/P Pulse Ox O2 Delivery O2 Flow Rate FiO2 11/14/16 08:00 99.4 65 18 159/74 97 Room Air 11/14/16 00:00 98.8 62 18 159/73 98 Room Air 11/13/16 22:00 Room Air 11/13/16 16:00 98.0 62 18 146/81 98 Room Air I & O 11/14/16 06:59 Intake Total 2350 ml Balance 2350 ml Capillary Refill : Less Than 3 Seconds General Appearance: No Apparent Distress Thin HEENT: PERRL/EOMI Pharynx Normal Neck: Full Range of Motion Supple Respiratory: Chest Non Tender No Accessory Muscle Use No Respiratory Distress Cardiovascular: Regular Rate, Rhythm Gastrointestinal: normal bowel sounds non tender soft no organomegaly other ( SURGICAL SITE MID ABDOMEN C/D/I - ISABEL INTACT) Extremity: Normal Capillary Refill No Calf Tenderness No Pedal Edema Neurologic/Psychiatric: Alert Oriented x3 No Motor/Sensory Deficits Normal Mood/Affect Skin: Normal Color Warm/Dry Lymphatic: No Adenopathy Results Lab Laboratory Tests Test 11/12/16 03:35 Range/Units Alanine Aminotransferase (ALT/SGPT) 13 0-55 U/L Albumin 3.1 L 3.2-4.5 G/DL Alkaline Phosphatase 46 40-136 U/L Anion Gap 11 5-14 MMOL/L Aspartate Amino Transf (AST/SGOT) 27 5-34 U/L BUN/Creatinine Ratio 9 Blood Urea Nitrogen 5 L 7-18 MG/DL Calcium Level 7.7 L 8.5-10.1 MG/DL Carbon Dioxide Level 25 21-32 MMOL/L Chloride Level 102 98-107 MMOL/L Creatinine 0.54 L 0.60-1.30 MG/DL Estimat Glomerular Filtration Rate > 60 Glucose Level 95 70-105 MG/DL Potassium Level 3.5 L 3.6-5.0 MMOL/L Sodium Level 138 135-145 MMOL/L Total Bilirubin 0.6 0.1-1.0 MG/DL Total Protein 4.8 L 6.4-8.2 G/DL Assessment/Plan Assessment/Plan Assessment/Plan 1. SBO due to adhesions, internal hernia, and cecal volvulus--S/P exp lap with CHENG. Pt ok to go home by medicine. Start regular diet. 2. Hypertension--home meds restarted 3. GERD--on protonix 4. Weakness--improving, continue PT She will follow up with us in less than 2 weeks. INstructed to call the clinic if she has any problems or questions. Clinical Quality Measures DVT/VTE Risk/Contraindication: Risk Factor Score Per Nursin RFS Level Per Nursing on Admit: 2=Moderate AYE ISIDRO APRN Nov 14, 2016 09:26
[2016-11-14] MEDS ORDERED: cefTRIAXone INJECTION 1,000 MG in NS (IVPB) 50 ML IV NR (09:30)
--- NOTE | 2016-11-22 10:07 | Discharge Summary ---
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, internal hernia, and cecal volvulus--S/P exp lap with CHENG Discharge Summary Discharge Physical Examination Allergies: Coded Allergies: bacitracin (Verified Allergy, Unknown, 10/06/15) lidocaine (Verified Allergy, Unknown, 10/06/15) neomycin (Verified Allergy, Unknown, 10/06/15) polymyxin B (Verified Allergy, Unknown, 10/06/15) pramoxine (Verified Allergy, Unknown, 10/06/15) General Appearance: Alert, Oriented X3 Cardiovascular: Regular Rate Abdominal: Normal Bowel Sounds, Soft Hospital Course Patient is an 81 year female who began having abdominal pain around her periumbilical and lower abdomen. She was having severe nausea and emesis and went to emergency dept. Patient reported history of having twisted bowel in 2006 and had a colonoscopy that helped untwist it. . She had a ct scan demonstrating dilated loops of small bowel with transition point in right lower quadrant. She also had an area that has possibility of internal hernia or twisted small bowel. NG tube in place. The patient was later diagnosed with sbo and questionable internal hernia or volvulus appearing on CT scan. She was having some tenderness around this area. Dr. Winter discussed with patient and possible outcomes with conservative and operative management. Patient and wish to proceed with operative management at this time. Patient was taken to operating room for exploratory laparotomy all other indicated procedure.The following surgery was performed; exploratory laparotomy , lysis of adhesions. Patient was admitted to ICU after surgery and Pulmonology was consulted. Following Day after case, patient was alert and oriented x 3. Patient was feeling better, pain was under control. NG tube was also in place but no flatus or gas. On the October, Pt. continued to improve but no signs of bowel movement or flatus. Patient was then started on sips of clear ensure. Pt had a bowl movement that night and the following day. Patient was discharged the following Monday by Dr. Bradshaw after she was cleared by the Surgeon oracle application architect during the weekend. Pt was alert and oriented x 3. Even respirations. Patient was also given discharge instructions by me and Nursing staff. Esvin were intact to the midline incisions. No signs of drainage, redness or warmth noted, Discharge Instructions to patient/family Please see electonic discharge instructions given to patient. Discharge Medications Reviewed and agree with Discharge Medication list on patient's Discharge Instruction sheet Clinical Quality Measures DVT/VTE Risk/Contraindication: Risk Factor Score Per Nursin RFS Level Per Nursing on Admit: 2=Moderate AYE ISIDRO APRN Nov 22, 2016 10:07
== END 2016-11-14 11:01 | disposition home health service (06) | DRG 336 ==
LOC: EDUNIT# 21:52 → ER 21:53 → ICU 11-07 02:46 → 4TH 11-11 11:59
PROVIDERS: ADMIT Family Medicine; ATTEND Family Medicine
PROC: 0DNH0ZZ Release Cecum, Open Approach (ICD-10-PCS; 2016-11-07)
PROC: 0DNN0ZZ Release Sigmoid Colon, Open Approach (ICD-10-PCS; 2016-11-07)
PROC: 0DN80ZZ Release Small Intestine, Open Approach (ICD-10-PCS; principal; 2016-11-07 11:12)
DX: K56.5 Intestinal adhesions [bands] with obstruction (postinfection) (principal); K56.2 Volvulus; I10 Essential (primary) hypertension; Q43.8 Other specified congenital malformations of intestine; R64 Cachexia; K21.9 Gastro-esophageal reflux disease without esophagitis; E78.5 Hyperlipidemia, unspecified; K44.9 Diaphragmatic hernia without obstruction or gangrene; K42.9 Umbilical hernia without obstruction or gangrene; M81.0 Age-related osteoporosis without current pathological fracture; E87.6 Hypokalemia; E83.39 Other disorders of phosphorus metabolism
CPT/HCPCS: 36415; 36569; 71010; 74000; 74177; 76937; 80053; 81000; 83735; 84100; 84132; 84484; 85007; 85025; 85027; 86850; 86900; 86901; 93005; 94640; 94664; 94760; 96361; 96374; 96375; 96376

== ENCOUNTER → 2017-02-16 | Outpatient (CLI) | payer MEDICARE, OTHER ==
[~2017-02-16] MED LIST changes: +CLOR3.755 PO; +DOCU-143 PO; +ESCI5TAB12 PO; +ESOM40CA52 PO; +FLUO40CR8 TOP; +FLUT16SP22 NS; +HYDR-3812 PO; +SUCR1ORA PO; +TRIA1TAB3 PO
--- NOTE | 2017-02-17 16:19 | Diagnostic Imaging Report ---
EXAMINATION: Bilateral screening mammogram with a Computer Aided Detection (CAD) system. INDICATION: Screening. PERSONAL HISTORY: No current complaints stated on the questionnaire. COMPARISON: 02/16/2016. FINDINGS: The breasts are composed of extremely dense parenchyma which may decrease mammographic sensitivity. Benign-appearing calcifications are seen. Allowing for technique and positional differences, no suspicious change is seen. IMPRESSION: Dense breasts with no definite change. ACR BI-RADS Category 2: Benign findings. Result letter will be mailed to the patient. Note: At least 10% of breast cancer is not imaged by mammography. Dictated on workstation # [id number]
== END ==
LOC: RAD 09:32
PROVIDERS: ATTEND Nurse Practitioner Family
DX: Z12.31 Encounter for screening mammogram for malignant neoplasm of breast (principal); R92.2 Inconclusive mammogram
CPT/HCPCS: 77067

== ENCOUNTER 2017-04-21 11:22 | Inpatient (IN) | payer MEDICARE, OTHER ==
[~2017-04-21] VITALS: Ht 157.5 cm; Wt 39.0 kg
[2017-04-21] MEDS ORDERED: NS (IVPB) 250 ML IV ONE (11:35)
--- NOTE | 2017-04-21 11:37 | ED Syncope ---
General Stated Complaint: RIGHT BUNDLE BRANCH Source of Information: Patient, EMS History of Present Illness Time Seen by Provider: 11:29 Initial Comments Patient rinsed the ER by EMS with a chief complaint of syncope while getting something out of the trunk of her car. She says she was only down for a few seconds her found her and helped her back up. She is complaining of pain over her left hip as well as in her left ribs. She has no chest pain or shortness of breath however she says it does hurt when she takes a deep inspiration. She has no coronary history. EMS on arrival reported there is a possibility of a T-wave elevation in 2,3 and aVF but they're having difficulty getting a good reproducible EKG on route. Patient never endorse chest pain or shortness of breath. Patient denies any nausea or fevers or chills or sweats. Patient recall she had a bowel obstruction and surgery subsequently in October [address] Winter. She's had no problems since then. Allergies and Home Medications Allergies Coded Allergies: bacitracin (Verified Allergy, Unknown, 10/06/15) lidocaine (Verified Allergy, Unknown, 10/06/15) neomycin (Verified Allergy, Unknown, 10/06/15) polymyxin B (Verified Allergy, Unknown, 10/06/15) pramoxine (Verified Allergy, Unknown, 10/06/15) Home Medications Calcium Carbonate/Vitamin D3 1 Each Tablet, 1 TAB PO DAILY, (Reported) Cholecalciferol (Vitamin D3) 2,000 Unit Capsule, 2,000 UNIT PO DAILY, (Reported) Diltiazem HCl 30 Mg Tablet, 30 MG PO TID, (Reported) Docusate Sodium 100 Mg Capsule, 100 MG PO BID, #60 Prescribed by: AYE [facility]COSO [facility] on 11/11/16 0955 Escitalopram Oxalate 5 Mg Tablet, 5 MG PO HS, (Reported) Famotidine 40 Mg Tablet, 40 MG PO HS, (Reported) Multivitamin 1 Each Tablet, 1 TAB PO DAILY, (Reported) Pyridoxine HCl 100 Mg Tablet, 100 MG PO BID, (Reported) Simvastatin 20 Mg Tablet, 20 MG PO HS, (Reported) Sucralfate 1 Gm/10 Ml Oral.susp, 10 ML PO TIDWM, (Reported) Triamterene/Hydrochlorothiazid 1 Each Tablet, 1 TAB PO DAILY, (Reported) Vit A/Vit C/Vit E/Zinc/Copper 1 Each Tablet, 1 TAB PO BID, (Reported) Constitutional: No chills, No diaphoresis, No fever, No malaise EENTM: No ear discharge, No ear pain, No eye pain, No nose congestion, No nose pain, No vision loss Respiratory: No cough, No short of breath, other (painful on deep inspiration) Cardiovascular: see HPI, No chest pain, No edema, No Hx of Intervention, syncope, No vascular heart diseas Gastrointestinal: No diarrhea, No nausea, No vomiting Genitourinary: No discharge, No dysuria : No Musculoskeletal: see HPI, No back pain, joint pain (left hip and left ribs) Past Kjvdgfb-Fwezqo-Ybxfgs Hx Patient Social History Alcohol Use: Denies Use Recreational Drug Use: No Smoking Status: Never a Smoker 2nd Hand Smoke Exposure: No Recent Hopitalizations: No Immunizations Up To Date Tetanus Booster (TDap): Unknown Date of Pneumonia Vaccine: Sep 12, 2013 Date of Influenza Vaccine: Jun 07, 2016 Seasonal Allergies Seasonal Allergies: No Surgeries HX Surgeries: Yes (RSO, HYST, BREAST BX, CATARACTS) Surgeries: Breast, Hysterectomy Respiratory Hx Respiratory Disorders: Yes (ASTHMA CHILD) Cardiovascular Hx Cardiac Disorders: Yes Cardiac Disorders: High Cholesterol, Hypertension Neurological Hx Neurological Disorders: No Reproductive System Hx 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: No Sexually Transmitted Disease: No HIV/AIDS: No Female 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: 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 Genitourinary Hx Genitourinary Disorders: No Gastrointestinal Hx Gastrointestinal Disorders: Yes (GERD) Gastrointestinal Disorders: Gastroesophageal Reflux, Hiatal Hernia Musculoskeletal Hx Musculoskeletal Disorders: Yes (ARTHRITIS, OSTEOPOROSIS) Musculoskeletal Disorders: Osteoporosis, Arthritis Endocrine Hx Endocrine Disorders: No HEENT HX ENT Disorders: No Loss of Vision: Denies Hearing Impairment: Denies Cancer Hx Cancer: No Psychosocial Hx Psychiatric Problems: No Integumentary HX Skin/Integumentary Disorder: No Blood Transfusions Hx Blood Disorders: No Adverse Reaction to a Blood Tr: No Family Medical History Significant Family History: Hypertension Physical Exam Vital Signs Vital Sign - Last 12Hours 04/21/17 11:36 Temp 99.1 Pulse 68 Resp 14 B/P (MAP) 158/87 Pulse Ox 98 O2 Delivery Room Air Capillary Refill : General Appearance: No Apparent Distress, Thin HEENT: TMs Normal, Normal ENT Inspection Neck: Full Range of Motion, Normal Inspection, Non Tender Cardiovascular: Regular Rate, Rhythm, No Edema, Normal Peripheral Pulses, Systolic Murmur (2/6) Respiratory: Chest Non Tender, Lungs Clear, Normal Breath Sounds, No Accessory Muscle Use Gastrointestinal: Normal Bowel Sounds, No Organomegaly, Non Tender, Soft Back: Normal Inspection, No Vertebral Tenderness Extremities: Normal Capillary Refill, Normal Inspection, No Pedal Edema Neurologic/Psychiatric: Alert, Oriented x3, No Motor/Sensory Deficits, child adolescent psychiatrist II- XII Norm as Tested Cranial Nerves: Normal Hearing, Normal Speech, PERRL Coordination/Gait: Normal Finger to Nose Motor/Sensory: No Motor Deficit, No Sensory Deficit, No Pronator Drift Skin: Normal Color, Warm/Dry Progress/Results/Core Measures Results/Orders Lab Results Laboratory Tests Test 04/21/17 10:20 04/21/17 15:02 Range/Units White Blood Count 7.4 4.3-11.0 10^3/uL Red Blood Count 3.81 L 4.35-5.85 10^6/uL Hemoglobin 11.9 11.5-16.0 G/DL Hematocrit 35 35-52 % Mean Corpuscular Volume 91 80-99 FL Mean Corpuscular Hemoglobin 31 25-34 PG Mean Corpuscular Hemoglobin Concent 34 32-36 G/DL Red Cell Distribution Width 13.8 10.0-14.5 % Platelet Count 269 130-400 10^3/uL Mean Platelet Volume 9.1 7.4-10.4 FL Neutrophils (%) (Auto) 75 42-75 % Lymphocytes (%) (Auto) 17 12-44 % Monocytes (%) (Auto) 7 0-12 % Eosinophils (%) (Auto) 1 0-10 % Basophils (%) (Auto) 0 0-10 % Neutrophils # (Auto) 5.5 1.8-7.8 X 10^3 Lymphocytes # (Auto) 1.2 1.0-4.0 X 10^3 Monocytes # (Auto) 0.5 0.0-1.0 X 10^3 Eosinophils # (Auto) 0.1 0.0-0.3 10^3/uL Basophils # (Auto) 0.0 0.0-0.1 10^3/uL Sodium Level 131 L 135-145 MMOL/L Potassium Level 3.9 3.6-5.0 MMOL/L Chloride Level 93 L 98-107 MMOL/L Carbon Dioxide Level 28 21-32 MMOL/L Anion Gap 10 5-14 MMOL/L Blood Urea Nitrogen 16 7-18 MG/DL Creatinine 0.72 0.60-1.30 MG/DL Estimat Glomerular Filtration Rate > 60 BUN/Creatinine Ratio 22 Glucose Level 105 70-105 MG/DL Calcium Level 9.2 8.5-10.1 MG/DL Magnesium Level 1.9 1.8-2.4 MG/DL Total Bilirubin 0.5 0.1-1.0 MG/DL Aspartate Amino Transf (AST/SGOT) 39 H 5-34 U/L Alanine Aminotransferase (ALT/SGPT) 30 0-55 U/L Alkaline Phosphatase 55 40-136 U/L Troponin I < 0.30 <0.30 NG/ML Total Protein 7.1 6.4-8.2 GM/DL Albumin 4.2 3.2-4.5 GM/DL Urine Color YELLOW Urine Clarity SLIGHTLY CLOUDY Urine pH 8 5-9 Urine Specific [place] 1.015 L 1.016-1.022 Urine Protein NEGATIVE NEGATIVE Urine Glucose (UA) NEGATIVE NEGATIVE Urine Ketones NEGATIVE NEGATIVE Urine Nitrite NEGATIVE NEGATIVE Urine Bilirubin NEGATIVE NEGATIVE Urine Urobilinogen NORMAL NORMAL MG/DL Urine Leukocyte Esterase 3+ H NEGATIVE Urine RBC (Auto) NEGATIVE NEGATIVE Urine RBC RARE /HPF Urine WBC 2-5 /HPF Urine Squamous Epithelial Cells RARE /HPF Urine Crystals PRESENT H /LPF Urine Amorphous Sediment FEW MARIAH PHOSPHATE H /LPF Urine Bacteria MODERATE H /HPF Urine Casts NONE /LPF Urine Mucus NEGATIVE /LPF Urine Culture Indicated YES My Orders Orders - BALDO MOHR Cbc With Automated Diff (04/21/17 11:35) Comprehensive Metabolic Panel (04/21/17 11:35) Magnesium (04/21/17 11:35) Protime With Inr (04/21/17 11:35) Partial Thromboplastin Time (04/21/17 11:35) Troponin I (04/21/17 11:35) Ua Culture If Indicated (04/21/17 11:35) Ekg Tracing (04/21/17 11:35) Saline Lock/Iv-Start (04/21/17 11:35) Monitor-Rhythm Ecg Trace Only (04/21/17 11:35) Ct Head/Cervical Spine Wo (04/21/17 11:35) Ns (Ivpb) (Sodium Chloride 0.9%) (04/21/17 11:35) Hip, Left, 2 Views (04/21/17 11:37) Ribs/Unilateral With Chest (04/21/17 11:37) Ct Extremity Lower Left Wo (04/21/17 12:15) Ns Iv 500 Ml (Sodium Chloride 0.9%) (04/21/17 13:00) Fentanyl Injection (Sublimaze Injection (04/21/17 13:45) Fentanyl Injection (Sublimaze Injection (04/21/17 15:00) Santoro Cath Insertion (04/21/17 14:59) Urine Culture (04/21/17 15:02) Medications Given in ED Current Medications Medications Dose Ordered Sig/Sam Route Start Time Stop Time Status Last Admin Dose Admin Fentanyl Citrate 25 mcg ONCE ONCE IVP 04/21/17 13:45 04/21/17 13:46 DC 04/21/17 14:21 25 MCG Fentanyl Citrate 50 mcg ONCE ONCE IVP 04/21/17 15:00 04/21/17 15:02 DC 04/21/17 15:06 50 MCG Sodium Chloride 250 ml @ 0 mls/hr Q0M ONCE IV 04/21/17 11:35 04/21/17 11:37 DC 04/21/17 12:40 0 MLS/HR Sodium Chloride 500 ml @ 0 mls/hr Q0M ONCE IV 04/21/17 13:00 04/21/17 13:01 DC 04/21/17 13:13 0 MLS/HR Vital Signs/I&O Vital Sign - Last 12Hours 04/21/17 04/21/17 11:36 11:41 Temp 99.1 Pulse 68 Resp 14 B/P (MAP) 158/87 Pulse Ox 98 O2 Delivery Room Air Room Air Progress Note : Time: 12:14 Progress Note Radiologist called feels that the x-ray of the hip has some subtle findings of possible impaction fracture and a subcapital femoral neck and recommends getting a CT if we are all concerned of hip fracture. Given her mechanism of fall, relative frailty we would go ahead and get the CT scan done. Patient is not requiring anything for pain or nausea at this time. We'll get a head CT given her age and hematoma left frontal/temporal scalp. We'll also start cardiac workup however the initial EKG was unremarkable for any kind of acute AL. We'll also obtain urine and look for evidence of infection which may have contributed to her syncope. ECG Initial ECG Impression Date: Apr 21, 2017 Initial ECG Impression Time: 11:36 Initial ECG Rate: 66 Initial ECG Rhythm: Normal Sinus Initial ECG Intervals: [place] (220) Initial ECG Impression: Nonspecific Changes, 1st Degree AV Block Initial ECG Comparisson: Unchanged Comment incomplete RBB seen on previous ekg. no obvious ST wave elevation or depression. Diagnostic Imaging Diagonstic Imaging: Xray Plain Films/CT/US/NM/MRI: chest (left ribs 3 views) Comments No acute cardiac coronary processes noted. No rib fractures seen. NAME: YANNA LONG MED REC#: [id number] PHYSICIAN: BALDO MOHR MD CC: URVASHI QUINTANA MD; BALDO MOHR Page 1 of 1 RADIOLOGY REPORT VIA [facility]. [place], [place] CC: URVASHI QUINTANA MD; BALDO MOHR Page 1 of 1 RADIOLOGY REPORT NAME: YANNA LONG MED REC#: [id number] PT STATUS: REG ER : 1935 PHYSICIAN: BALDO MOHR MD ADMIT DATE: 04/21/17/ER Signed Date of Exam: 04/21/17 RIBS/UNILATERAL WITH CHEST EXAM: AP chest and 3 views of the left ribs are obtained. INDICATION: Injury. FINDINGS: The lungs appear clear of focal infiltrate. There is pulmonary hyperinflation suggestive of COPD. There is chronic-appearing interstitial thickening, however. There is no effusion or pneumothorax. The heart size is normal. The mediastinum and get appear unremarkable. The left ribs demonstrate no fracture or suspicious focal lesion. Prominent costochondral ossification is noted. IMPRESSION: No acute process. Dictated by: Dictated on workstation # [id number] Dict: 04/21/17 1225 Trans: 04/21/17 1233 Interpreted by: URVASHI QUINTANA MD Electronically signed by: URVASHI QUINTANA MD 04/21/17 1233 Reviewed: Reviewed by Pr Diagonstic Imaging: CT Plain Films/CT/US/NM/MRI: head (cervical spine without) Comments NAME: YANNA LONG [facility] REC#: [id number] PHYSICIAN: BALDO MOHR MD CC: URVASHI QUINTANA MD; BALDO MOHR Page 2 of 2 RADIOLOGY REPORT VIA [facility], [place], [place] CC: URVASHI QUINTANA MD; BALDO MOHR Page 1 of 2 RADIOLOGY REPORT NAME: YANNA LONG [facility] REC#: [id number] PT STATUS: REG ER : 1935 PHYSICIAN: BALDO MOHR MD ADMIT DATE: 04/21/17/ER Signed Date of Exam: 04/21/17 CT HEAD/CERVICAL SPINE WO PROCEDURE: CT head and CT cervical spine without contrast. TECHNIQUE: Multiple contiguous axial images were obtained through the brain and cervical spine without the use of intravenous contrast. Sagittal and coronal reformations through the cervical spine were then performed. INDICATION: Injury. COMPARISON: No prior studies are available for comparison. CT HEAD FINDINGS: There is a small scalp hematoma along the left frontotemporal region. There is no intracranial hemorrhage. Periventricular and deep white matter hypodensities compatible with chronic microvascular ischemic changes are seen. There is no hydrocephalus. No extra-axial fluid collection or hemorrhage is identified. The calvarium, paranasal sinuses and orbits appear grossly unremarkable. CT CERVICAL SPINE FINDINGS: There is anterior translation of C4 over C5 of 3 mm. This is most prominent at the posterior spinal line but is also noted at the spinal lamellar line. This is associated with a 2 mm posterior translation of C5 over C6. No associated fracture is seen. No associated soft tissue swelling or obvious hematoma is identified. This could be degenerative and chronic. No prior studies are available for comparison, however. There are fusion changes at the uncovertebral joints bilaterally involving C5-6 and C6-7 levels. There are advanced facet joint degenerative changes at multiple levels but particularly prominent at C4-5. There is severe disc degenerative changes and disc height loss at multiple levels, worst at C5-C6 and C6-7. The alignment of the atlanto-occipital joints is satisfactory. There is minimal posterior translation of the lateral masses of C1 over C2. There is no widening of the predental space with degenerative changes seen. A 3 mm ossific fragment superior to the dens is noted. This could be degenerative or related to an avulsion injury of indeterminate age. The lower aspect of the atlantodental joint demonstrates suggestion of early fusion. No definite acute fracture is identified. Pleural thickening in the lung apices is seen. IMPRESSION: CT HEAD: There is no intracranial hemorrhage. A small left frontoparietal scalp hematoma is seen. CT CERVICAL SPINE: 1. Alignment abnormalities most prominent at C4 over C5 with 3 mm anterior translation. This is associated with prominent degenerative changes and is likely degenerative. No prior studies are available for comparison, however. 2. There is a 3 mm bone fragment seen superior to the dens. This could be related to a focal ligamentous ossification or, less likely, an avulsion injury from the tip of the dens of uncertain age. There is no definite acute fracture seen. If there is a high index of suspicion of an acute injury in the cervical spine, correlation with MRI could be of benefit. Dictated by: Dictated on workstation # [id number] Dict: 04/21/17 1233 Trans: 04/21/17 1303 Interpreted by: URVASHI QUINTANA MD Electronically signed by: URVASHI QUINTANA MD 04/21/17 1303 Reviewed: Reviewed by Me Diagonstic Imaging: Xray Plain Films/CT/US/NM/MRI: hip (left) Comments Subtle finding consistent with possible compression fracture at the femoral neck. NAME: YANNA LONG [facility] REC#: [id number] PHYSICIAN: BALDO MOHR MD CC: URVASHI QUINTANA MD; BALDO MOHR Page 1 of 1 RADIOLOGY REPORT VIA [place], [place] CC: URVASHI QUINTANA MD; BALDO MOHR Page 1 of 1 RADIOLOGY REPORT NAME: YANNA LONG MED REC#: [id number] PT STATUS: REG ER : 1935 PHYSICIAN: BALDO MOHR MD ADMIT DATE: 04/21/17/ER Signed Date of Exam: 04/21/17 HIP, LEFT, 2 VIEWS EXAMINATION: Two views of the left hip. INDICATION: Injury. FINDINGS: There is a lucency seen through the medial cortex of the femoral neck and question of an impacted subcapital femoral neck fracture is raised. No dislocation. Mild to moderate degenerative changes in the left hip is seen. IMPRESSION: Findings concerning for a subtle impacted fracture at the subcapital femoral neck. Better evaluation with CT scan of the left hip is recommended. The findings were discussed with Dr. Mohr at time of dictation. Dictated by: Dictated on workstation # [id number] Dict: 04/21/17 1211 Trans: 04/21/17 1254 Interpreted by: URVASHI QUINTANA MD Electronically signed by: URVASHI QUINTANA MD 04/21/17 1254 Reviewed: Reviewed by Me, Discussed w/Radiologist Diagonstic Imaging: CT Plain Films/CT/US/NM/MRI: hip (left hip) Comments VIA [place], [place] NAME: WES LONGMARYA Au [facility] REC#: [id number] PT STATUS: REG ER : 1935 PHYSICIAN: BALDO MOHR MD ADMIT DATE: 04/21/17/ER Draft Date of Exam:04/21/17 CT EXTREMITY LOWER LEFT WO PROCEDURE: CT left lower extremity without contrast. TECHNIQUE: Multiple contiguous axial images were obtained through the left lower extremity without the use of intravenous contrast. Sagittal and coronal reformations were then performed. INDICATION: Fall. Suspected fracture based on left hip radiographs. FINDINGS: There is a subtle subcapital femoral neck fracture with mild impaction along the lateral aspect. No significant displacement is seen otherwise. There are prominent degenerative changes and a subchondral cyst formation with sclerosis seen along the lateral aspect of the hip joint compatible with moderate to severe osteoarthritis. No subluxation or dislocation is seen. There is no significant soft tissue hematoma identified. IMPRESSION: 1. There is a subtle nondisplaced fracture of the subcapital femoral neck with minimal impaction along the lateral aspect seen. 2. Moderate to severe left hip osteoarthritis. Dictated on workstation # [id number] Dict: 04/21/17 1250 Trans: 04/21/17 1315 [id number] Interpreted by: URVASHI QUINTANA MD Electronically signed by: Reviewed: Reviewed by Me Consults Consults : Consulting Physician: CLIVE BREEN DO Consults Notes Discussed the case with orthopedic surgeon and he recommends that we prep her for a possible surgery at 4:30. Last known oral intake was 7:00 this morning. He recommends getting medical on board to admit her. Departure Communication Time/Spoke to Admitting Phy: 14:[address] Bradshaw; Discussed the case and need for medical managemnet while Orthopedics does left hip Fx repair. She has mild hyponatremia. Impression Impression: Primary Impression: Syncope and collapse Additional Impressions: Traumatic hematoma of head Qualified Codes: S00.93XA - Contusion of unspecified part of head, initial encounter Closed left hip fracture Qualified Codes: S72.002A - Fracture of unspecified part of neck of left femur , initial encounter for closed fracture Rib pain on left side Disposition: ADMITTED INPATIENT Condition: Stable Decision to Admit Reason: Admit from ER (General) Decision to Admit/Date: Apr 21, 2017 Time/Decision to Admit Time: 14:56 Departure-Patient Inst. Referrals: ZEV BRADSHAW MD (PCP/Family) Primary Care Physician Copy Copies To 1: ZEV BRADSHAW MD, TITUS J Apr 21, 2017 11:37
[2017-04-21 11:42] LABS: BASOPHILS % (AUTO) 0 % (0-10); EOSINOPHILS # (AUTO) 0.1 10^3/uL (0.0-0.3); EOSINOPHILS % (AUTO) 1 % (0-10); LYMPHOCYTES # (AUTO) 1.2 X 10^3 (1.0-4.0); LYMPHOCYTES % (AUTO) 17 % (12-44); MEAN CORPUSCULAR HEMOGLOBIN 31 PG (25-34); MEAN CORPUSCULAR HGB CONC 34 G/DL (32-36); MEAN CORPUSCULAR VOLUME 91 FL (80-99); MEAN PLATELET VOLUME 9.1 FL (7.4-10.4); MONOCYTES # (AUTO) 0.5 X 10^3 (0.0-1.0); MONOCYTES % (AUTO) 7 % (0-12); NEUTROPHILS # (AUTO) 5.5 X 10^3 (1.8-7.8); NEUTROPHILS % (AUTO) 75 % (42-75); PLATELET COUNT 269 10^3/uL (130-400); RED BLOOD COUNT 3.81 10^6/uL (4.35-5.85); RED CELL DISTRIBUTION WIDTH 13.8 % (10.0-14.5); WHITE BLOOD COUNT 7.4 10^3/uL (4.3-11.0)
[2017-04-21 12:05] LABS: ALANINE AMINOTRANSFERASE 30 U/L (0-55); ALBUMIN 4.2 GM/DL (3.2-4.5); ANION GAP 10 MMOL/L (5-14); ASPARTATE AMINO TRANSFERASE 39 U/L (5-34); BILIRUBIN,TOTAL 0.5 MG/DL (0.1-1.0); BLOOD UREA NITROGEN 16 MG/DL (7-18); BUN/CREATININE RATIO 22; CALCIUM 9.2 MG/DL (8.5-10.1); CARBON DIOXIDE 28 MMOL/L (21-32); CHLORIDE 93 MMOL/L (98-107); CREATININE SERUM 0.72 MG/DL (0.60-1.30); GFR ESTIMATED > 60; GLUCOSE 105 MG/DL (70-105); MAGNESIUM 1.9 MG/DL (1.8-2.4); POTASSIUM 3.9 MMOL/L (3.6-5.0); SODIUM 131 MMOL/L (135-145); TOTAL PROTEIN 7.1 GM/DL (6.4-8.2)
[2017-04-21 12:12] LABS: TROPONIN I < 0.30 NG/ML (<0.30)
--- NOTE | 2017-04-21 12:33 | Diagnostic Imaging Report ---
EXAM: AP chest and 3 views of the left ribs are obtained. INDICATION: Injury. FINDINGS: The lungs appear clear of focal infiltrate. There is pulmonary hyperinflation suggestive of COPD. There is chronic-appearing interstitial thickening, however. There is no effusion or pneumothorax. The heart size is normal. The mediastinum and get appear unremarkable. The left ribs demonstrate no fracture or suspicious focal lesion. Prominent costochondral ossification is noted. IMPRESSION: No acute process. Dictated by: Dictated on workstation # [id number]
--- NOTE | 2017-04-21 12:56 | Diagnostic Imaging Report ---
EXAMINATION: Two views of the left hip. INDICATION: Injury. FINDINGS: There is a lucency seen through the medial cortex of the femoral neck and question of an impacted subcapital femoral neck fracture is raised. No dislocation. Mild to moderate degenerative changes in the left hip is seen. IMPRESSION: Findings concerning for a subtle impacted fracture at the subcapital femoral neck. Better evaluation with CT scan of the left hip is recommended. The findings were discussed with Dr. Mohr at time of dictation. Dictated by: Dictated on workstation # [id number]
[2017-04-21] MEDS ORDERED: NS IV 500 ML 500 ML IV ONE (13:00)
--- NOTE | 2017-04-21 13:02 | Diagnostic Imaging Report ---
PROCEDURE: CT head and CT cervical spine without contrast. TECHNIQUE: Multiple contiguous axial images were obtained through the brain and cervical spine without the use of intravenous contrast. Sagittal and coronal reformations through the cervical spine were then performed. INDICATION: Injury. COMPARISON: No prior studies are available for comparison. CT HEAD FINDINGS: There is a small scalp hematoma along the left frontotemporal region. There is no intracranial hemorrhage. Periventricular and deep white matter hypodensities compatible with chronic microvascular ischemic changes are seen. There is no hydrocephalus. No extra-axial fluid collection or hemorrhage is identified. The calvarium, paranasal sinuses and orbits appear grossly unremarkable. CT CERVICAL SPINE FINDINGS: There is anterior translation of C4 over C5 of 3 mm. This is most prominent at the posterior spinal line but is also noted at the spinal lamellar line. This is associated with a 2 mm posterior translation of C5 over C6. No associated fracture is seen. No associated soft tissue swelling or obvious hematoma is identified. This could be degenerative and chronic. No prior studies are available for comparison, however. There are fusion changes at the uncovertebral joints bilaterally involving C5-6 and C6-7 levels. There are advanced facet joint degenerative changes at multiple levels but particularly prominent at C4-5. There is severe disc degenerative changes and disc height loss at multiple levels, worst at C5-C6 and C6-7. The alignment of the atlanto-occipital joints is satisfactory. There is minimal posterior translation of the lateral masses of C1 over C2. There is no widening of the predental space with degenerative changes seen. A 3 mm ossific fragment superior to the dens is noted. This could be degenerative or related to an avulsion injury of indeterminate age. The lower aspect of the atlantodental joint demonstrates suggestion of early fusion. No definite acute fracture is identified. Pleural thickening in the lung apices is seen. IMPRESSION: CT HEAD: There is no intracranial hemorrhage. A small left frontoparietal scalp hematoma is seen. CT CERVICAL SPINE: 1. Alignment abnormalities most prominent at C4 over C5 with 3 mm anterior translation. This is associated with prominent degenerative changes and is likely degenerative. No prior studies are available for comparison, however. 2. There is a 3 mm bone fragment seen superior to the dens. This could be related to a focal ligamentous ossification or, less likely, an avulsion injury from the tip of the dens of uncertain age. There is no definite acute fracture seen. If there is a high index of suspicion of an acute injury in the cervical spine, correlation with MRI could be of benefit. Dictated by: Dictated on workstation # [id number]
--- NOTE | 2017-04-21 13:15 | Diagnostic Imaging Report ---
PROCEDURE: CT left lower extremity without contrast. TECHNIQUE: Multiple contiguous axial images were obtained through the left lower extremity without the use of intravenous contrast. Sagittal and coronal reformations were then performed. INDICATION: Fall. Suspected fracture based on left hip radiographs. FINDINGS: There is a subtle subcapital femoral neck fracture with mild impaction along the lateral aspect. No significant displacement is seen otherwise. There are prominent degenerative changes and a subchondral cyst formation with sclerosis seen along the lateral aspect of the hip joint compatible with moderate to severe osteoarthritis. No subluxation or dislocation is seen. There is no significant soft tissue hematoma identified. IMPRESSION: 1. There is a subtle nondisplaced fracture of the subcapital femoral neck with minimal impaction along the lateral aspect seen. 2. Moderate to severe left hip osteoarthritis. Dictated by: Dictated on workstation # [id number]
[2017-04-21] MEDS ORDERED: fentaNYL INJECTION 100 MCG/2 ML AMP IVP ONE ×2 (13:45→15:00)
[2017-04-21 15:08] LABS: BILIRUBIN,URINE NEGATIVE (NEGATIVE); KETONES,URINE NEGATIVE (NEGATIVE); LEUKOCYTE ESTERASE ,URINE 3+ (NEGATIVE); NITRITE,URINE NEGATIVE (NEGATIVE); PH,URINE 8 (5-9); PROTEIN,URINE NEGATIVE (NEGATIVE); UROBILINOGEN,URINE NORMAL (NORMAL)
[2017-04-21 15:17] LABS: SQUAMOUS EPITHELIAL CELL,UR RARE /HPF
[2017-04-21 15:58] VITALS: BP 118/50
[2017-04-21] MEDS ORDERED: CATHETER FLUSH 10 ML SYR IV PRN (16:30)
[2017-04-21] MEDS ORDERED: ONDANSETRON 4 MG/2 ML (SDV) Z0FRAN IV PRN (16:30)
[2017-04-21] MEDS: NS IV 1000 ML 1,000 ML IV SCH (16:56)
[2017-04-21 20:00] VITALS: BP 148/50
--- NOTE | 2017-04-21 20:09 | History & Physical ---
History of Present Illness History of Present Illness Reason for visit/HPI 81 yo F with history of osteoporosis, osteoarthritis and HTN admitted for Left hip fracture. Pt reports she walked out to her car and opened her car trunk to put her purse in it and does not remember what happened except her was trying to help her up. She was unable to walk and reported pain in her left hip. An ambulance took her to [facility]- xray and CT showed subtle nondisplaced fracture of the subcapital femoral neck with minimal impaction along the lateral aspect of the left hip. Orthopedics was consulted with plan to pin her left hip. Patient also had a bump on the left of her forehead- CT negative for acute findings besides a small hematoma under her scalp. On lab review sodium was noted a little low and pt was placed on normal saline. Patient feels like she must have twisted/turned her hip and it broke. She denies any fevers or signs of illness. Last major surgery -She had a bowel obstruction in October 2016. Date of Admission Apr 21, 2017 at 15:18 Date Seen by Provider: Apr 21, 2017 Time Seen by Provider: 20:09 I consulted on this patient on 04/21/17 20:09 Attending Physician Nathan Garsia MD Admitting Physician Anum Bradshaw MD Consult CLIVE HUITRON DO Allergies and Home Medications Allergies Coded Allergies: bacitracin (Verified Allergy, Unknown, 10/06/15) lidocaine (Verified Allergy, Unknown, 10/06/15) neomycin (Verified Allergy, Unknown, 10/06/15) polymyxin B (Verified Allergy, Unknown, 10/06/15) pramoxine (Verified Allergy, Unknown, 10/06/15) Home Medications Calcium Carbonate/Vitamin D3 1 Each Tablet, 1 TAB PO DAILY, (Reported) Cholecalciferol (Vitamin D3) 2,000 Unit Capsule, 2,000 UNIT PO DAILY, (Reported) Diltiazem HCl 30 Mg Tablet, 30 MG PO TID, (Reported) Docusate Sodium 100 Mg Capsule, 100 MG PO BID, #60 Prescribed by: AYE [facility]OSO [facility] on 11/11/16 0959 Escitalopram Oxalate 5 Mg Tablet, 5 MG PO HS, (Reported) Famotidine 40 Mg Tablet, 40 MG PO HS, (Reported) Multivitamin 1 Each Tablet, 1 TAB PO DAILY, (Reported) Pyridoxine HCl 100 Mg Tablet, 100 MG PO BID, (Reported) Simvastatin 20 Mg Tablet, 20 MG PO HS, (Reported) Sucralfate 1 Gm/10 Ml Oral.susp, 10 ML PO TIDWM, (Reported) Triamterene/Hydrochlorothiazid 1 Each Tablet, 1 TAB PO DAILY, (Reported) Vit A/Vit C/Vit E/Zinc/Copper 1 Each Tablet, 1 TAB PO BID, (Reported) Past Psfhnup-Xohdlq-Oxjdef Hx Patient Social History Alcohol Use: Denies Use Recreational Drug Use: No Smoking Status: Never a Smoker 2nd Hand Smoke Exposure: No Physical Abuse Screen: No Sexual Abuse: No Recent Foreign Travel: No Contact w/other who traveled: No Recent Hopitalizations: No Recent Infectious Disease Expo: No Immunizations Up To Date Tetanus Booster (TDap): Unknown Date of Pneumonia Vaccine: Sep 12, 2013 Date of Influenza Vaccine: Jun 07, 2016 Seasonal Allergies Seasonal Allergies: No Surgeries HX Surgeries: Yes (RSO, HYST, BREAST BX, CATARACTS) Surgeries: Breast, Hysterectomy Respiratory Hx Respiratory Disorders: Yes (ASTHMA CHILD) Cardiovascular Hx Cardiovascular Disorders: Yes Cardiac Disorders: High Cholesterol, Hypertension Neurological Hx Neurological Disorders: No Reproductive System Hx 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: No Sexually Transmitted Disease: No HIV/AIDS: No Female 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: 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 SNAPPER ON Hx: Hysterectomy Genitourinary Hx Genitourinary Disorders: No Gastrointestinal Hx Gastrointestinal Disorders: Yes (GERD) Gastrointestinal Disorders: Gastroesophageal Reflux, Obstructive Bowel, Hiatal Hernia Musculoskeletal Hx Musculoskeletal Disorders: Yes (ARTHRITIS, OSTEOPOROSIS) Musculoskeletal Disorders: Osteoporosis, Arthritis Endocrine Hx Endocrine Disorders: No HEENT HX ENT Disorders: No Loss of Vision: Denies Hearing Impairment: Denies Cancer Hx Cancer: No Psychosocial Hx Psychiatric Problems: No Integumentary HX Skin/Integumentary Disorder: No Blood Transfusions Hx Blood Disorders: No Adverse Reaction to a Blood Tr: No Family Medical History Significant Family History: Hypertension Family Hx: Congenital disease G8 BROTHER (? DOWN SYNDROME) Hypertension 19 MOTHER G8 SISTER Kidney disease sister Myocardial infarction 19 FATHER Neoplasm 19 MOTHER (BREAST CANCER) Visual disorder 19 MOTHER (MACULAR DEGENERATION) Review of Systems Review of Systems General: No Chills, No Night Sweats, No Fatigue, No Malaise HEENT: Head Aches (resolved), No Visual Changes Pulmonary: No Dyspnea, No Cough Cardiovascular: No: Chest Pain, Orthopnea, Palpitations Gastrointestinal: No: Abdominal Pain, Constipation, Diarrhea, Hematochezia, Melena, Nausea, Vomiting Genitourinary: No Dysuria, No Frequency Musculoskeletal: leg pain (left hip pain), No: neck pain, shoulder pain Neurological: Weakness (left hip/leg), No: Change in speech, Confusion, Seizures Physical Exam Vital Signs Vital Sign - Last 12Hours 04/21/17 11:36 Temp 99.1 Pulse 68 Resp 14 B/P (MAP) 158/87 Pulse Ox 98 O2 Delivery Room Air Capillary Refill : Less Than 3 SecondsLess Than 3 Seconds General Appearance: No Apparent Distress, Thin HEENT: PERRL/EOMI Neck: Full Range of Motion Respiratory: Chest Non Tender, Lungs Clear, Normal Breath Sounds, No Accessory Muscle Use, No Respiratory Distress Cardiovascular: Regular Rate, Rhythm, No Edema Gastrointestinal: Normal Bowel Sounds, Non Tender, Soft Rectal: Deferred Back: No CVA Tenderness Extremity: Normal Capillary Refill Neurologic/Psychiatric: Alert, Oriented x3, No Motor/Sensory Deficits, Normal Mood/Affect, Abnormal Gait (unable to ambulate) Skin: Normal Color, Warm/Dry Lymphatic: No Adenopathy Assessment/Plan Assessment/Plan Assessment/Plan 81 yo F left hip fracture- subcapital femoral neck with minimal impaction - Dr. Huitron planning to pin in OR 04/22/17 hyponatremia- NS IVF- will trend with repeat labs- osteoporosis- contributing to her fracture osteoarthritis- tolerable- mostly her hand ache in the cold- so doing well this summer GERD- continue famotidine HTN- continue diltiazem dvt ppx: scds, ortho to comment on chemoppx after surgery Dispo: to OR 04/22/2017 for left hip fracture pinning. PT/OT ordered. Problems: Clinical Quality Measures AMI/AHF: ASA po Prior to arrival: Yes DVT/VTE Risk/Contraindication: Risk Factor Score Per Nursin RFS Level Per Nursing on Admit: 4+=Very High NATHAN GARSIA MD Apr 21, 2017 20:09
[2017-04-21] MEDS: FAMOTIDINE 20 MG (PEPCID) TABLET PO SCH (20:45)
[2017-04-21] MEDS: SIMvastatin 20 MG (ZOCOR) TAB PO SCH (20:45)
[2017-04-21] MEDS: DOCUSATE SODIUM 100 MG (COLACE) CAP PO SCH (20:45)
[2017-04-21] MEDS: DILTIAZEM 30 MG (CARDIZEM) TAB PO SCH (20:46)
[2017-04-21] MEDS: fentaNYL INJECTION 100 MCG/2 ML AMP IV PRN (20:50)
[2017-04-22 00:20] VITALS: BP 147/69
[2017-04-22] MEDS: NS IV 1000 ML 1,000 ML IV SCH ×4 (01:15→20:43)
[2017-04-22 04:00] VITALS: BP 138/72
[2017-04-22 05:38] LABS: BASOPHILS % (AUTO) 0 % (0-10); EOSINOPHILS % (AUTO) 0 % (0-10); LYMPHOCYTES # (AUTO) 0.5 X 10^3 (1.0-4.0); LYMPHOCYTES % (AUTO) 7 % (12-44); MEAN CORPUSCULAR HEMOGLOBIN 31 PG (25-34); MEAN CORPUSCULAR HGB CONC 34 G/DL (32-36); MEAN CORPUSCULAR VOLUME 91 FL (80-99); MONOCYTES # (AUTO) 0.3 X 10^3 (0.0-1.0); MONOCYTES % (AUTO) 5 % (0-12); NEUTROPHILS # (AUTO) 6.2 X 10^3 (1.8-7.8); NEUTROPHILS % (AUTO) 88 % (42-75); PLATELET COUNT 216 10^3/uL (130-400); RED BLOOD COUNT 3.69 10^6/uL (4.35-5.85); RED CELL DISTRIBUTION WIDTH 13.7 % (10.0-14.5)
[2017-04-22 06:06] LABS: ALANINE AMINOTRANSFERASE 26 U/L (0-55); ALBUMIN 3.6 GM/DL (3.2-4.5); ANION GAP 13 MMOL/L (5-14); ASPARTATE AMINO TRANSFERASE 43 U/L (5-34); BILIRUBIN,TOTAL 0.8 MG/DL (0.1-1.0); BLOOD UREA NITROGEN 10 MG/DL (7-18); BUN/CREATININE RATIO 17; CALCIUM 7.9 MG/DL (8.5-10.1); CARBON DIOXIDE 19 MMOL/L (21-32); CHLORIDE 96 MMOL/L (98-107); CREATININE SERUM 0.59 MG/DL (0.60-1.30); GFR ESTIMATED > 60; GLUCOSE 106 MG/DL (70-105); POTASSIUM 3.6 MMOL/L (3.6-5.0); SODIUM 128 MMOL/L (135-145); TOTAL PROTEIN 6.3 GM/DL (6.4-8.2)
[2017-04-22] MEDS: fentaNYL INJECTION 100 MCG/2 ML AMP IV PRN ×2 (06:36→20:44)
[2017-04-22 08:00] VITALS: BP 143/63
[2017-04-22] MEDS ORDERED: fentaNYL INJECTION 100 MCG/2 ML AMP ONE ×2 (08:15→10:07)
[2017-04-22] MEDS ORDERED: LACTATED RINGERS 1,000 ML IV ONE ×2 (08:15→09:57)
[2017-04-22] MEDS ORDERED: LIDOCAINE PF 2% 5 ML (XYLOCAINE) VIAL ONE (08:15)
[2017-04-22] MEDS ORDERED: ONDANSETRON 4 MG/2 ML (SDV) Z0FRAN ONE ×2 (08:15→10:07)
[2017-04-22] MEDS ORDERED: proPOfol 200 MG/20 ML (DIPRIVAN) VIAL IV ONE (08:15)
[2017-04-22] MEDS ORDERED: ROCURONIUM 50 MG/5 ML (ZEMURON) VIAL IV ONE (08:15)
[2017-04-22] MEDS ORDERED: LIDOCAINE JELLY 2% (XYLOCAINE) 5 ML TUBE ONE (08:15)
[2017-04-22] MEDS ORDERED: MIDAZOLAM 2 MG/2 ML (VERSED) VIAL ONE (08:16)
[2017-04-22] MEDS ORDERED: BUPIVACAINE 0.5% 30 ML (SENSORCAINE) VIAL ONE (08:18)
[2017-04-22] MEDS ORDERED: ceFAZolin 2 GM/50 ML NS 50 ML ONE (08:38)
[2017-04-22] MEDS: LACTATED RINGERS 1,000 ML IV PRN ×2 (08:38→09:36)
--- NOTE | 2017-04-22 08:58 | Consultation ---
History of Present Illness History of Present Illness Patient Consulted On(maira/time) 04/22/17 08:55 Date Seen by Provider: Apr 22, 2017 Time Seen by Provider: 08:55 Reason for Visit: Left hip fracture History of Present Illness 81 yr old WF with severe L hip pain presented to ER where imaging indicated nondisplaced left femoral neck fracture. she understands the risks/benefits/ alternatives to surgery and she wishes to proceed. she has no other sites of pain. she has no numbness or tingling. she has no prior trauma to the left hip. Allergies and Home Medications Allergies Coded Allergies: bacitracin (Verified Allergy, Unknown, 10/06/15) lidocaine (Verified Allergy, Unknown, 10/06/15) neomycin (Verified Allergy, Unknown, 10/06/15) polymyxin B (Verified Allergy, Unknown, 10/06/15) pramoxine (Verified Allergy, Unknown, 10/06/15) Home Medications Calcium Carbonate/Vitamin D3 1 Each Tablet, 1 TAB PO DAILY, (Reported) Cholecalciferol (Vitamin D3) 2,000 Unit Capsule, 2,000 UNIT PO DAILY, (Reported) Diltiazem HCl 30 Mg Tablet, 30 MG PO TID, (Reported) Docusate Sodium 100 Mg Capsule, 100 MG PO BID, #60 Prescribed by: AYE IRAHETA on 11/11/16 0955 Escitalopram Oxalate 5 Mg Tablet, 5 MG PO HS, (Reported) Famotidine 40 Mg Tablet, 40 MG PO HS, (Reported) Multivitamin 1 Each Tablet, 1 TAB PO DAILY, (Reported) Pyridoxine HCl 100 Mg Tablet, 100 MG PO BID, (Reported) Simvastatin 20 Mg Tablet, 20 MG PO HS, (Reported) Sucralfate 1 Gm/10 Ml Oral.susp, 10 ML PO TIDWM, (Reported) Triamterene/Hydrochlorothiazid 1 Each Tablet, 1 TAB PO DAILY, (Reported) Vit A/Vit C/Vit E/Zinc/Copper 1 Each Tablet, 1 TAB PO BID, (Reported) Past Swjhlgq-Xrjyik-Orvjfp Hx Patient Social History Alcohol Use: Denies Use Recreational Drug Use: No Smoking Status: Never a Smoker 2nd Hand Smoke Exposure: No Recent Foreign Travel: No Contact w/Someone Who Travel: No Recent Infectious Disease Expo: No Recent Hopitalizations: No Physical Abuse Screen: No Sexual Abuse: No Immunizations Up To Date Tetanus Booster (TDap): Unknown Date of Pneumonia Vaccine: Sep 12, 2013 Date of Influenza Vaccine: Jun 07, 2016 Seasonal Allergies Seasonal Allergies: No Surgeries HX Surgeries: Yes (RSO, HYST, BREAST BX, CATARACTS) Surgeries: Breast, Hysterectomy Respiratory Hx Respiratory Disorders: Yes (ASTHMA CHILD) Cardiovascular Hx Cardiac Disorders: Yes Cardiac Disorders: High Cholesterol, Hypertension Neurological Hx Neurological Disorders: No Reproductive System Hx 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: No Sexually Transmitted Disease: No HIV/AIDS: No Female 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: 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 Genitourinary Hx Genitourinary Disorders: No Gastrointestinal Hx Gastrointestinal Disorders: Yes (GERD) Gastrointestinal Disorders: Gastroesophageal Reflux, Obstructive Bowel, Hiatal Hernia Musculoskeletal Hx Musculoskeletal Disorders: Yes (ARTHRITIS, OSTEOPOROSIS) Musculoskeletal Disorders: Osteoporosis, Arthritis Endocrine Hx Endocrine Disorders: No HEENT HX ENT Disorders: No Loss of Vision: Denies Hearing Impairment: Denies Cancer Hx Cancer: No Psychosocial Hx Psychiatric Problems: No Integumentary HX Skin/Integumentary Disorder: No Blood Transfusions Hx Blood Disorders: No Adverse Reaction to a Blood Tr: No Family Medical History Significant Family History: Hypertension Family Medial History: Congenital disease G8 BROTHER (? DOWN SYNDROME) Hypertension 19 MOTHER G8 SISTER Kidney disease sister Myocardial infarction 19 FATHER Neoplasm 19 MOTHER (BREAST CANCER) Visual disorder 19 MOTHER (MACULAR DEGENERATION) Physical Exam-General Problems Physical Exam Vital Signs Vital Sign - Last 12Hours 04/21/17 11:36 Temp 99.1 Pulse 68 Resp 14 B/P (MAP) 158/87 Pulse Ox 98 O2 Delivery Room Air Capillary Refill : Less Than 3 SecondsLess Than 3 Seconds Extremities: other (LLE: + pain with log roll, equal leg lengths, NVSI, 2/4 DP , PT) Assessment/Plan Assessment/Plan Admission Diagnosis/Plan ASSESSMENT: nondisplaced left femoral neck fracture PLAN: percutaneous pinning L hip post op chemoprophylaxis and WBAT pain control disposition per medicine Clinical Quality Measures AMI/AHF: ASA po Prior to arrival: Yes DVT/VTE Risk/Contraindication: Risk Factor Score Per Nursin RFS Level Per Nursing on Admit: 4+=Very High CLIVE BREEN DO Apr 22, 2017 08:58
[2017-04-22] MEDS ORDERED: ceFAZolin 2 GM/50 ML NS 50 ML IV ONE (09:00)
--- NOTE | 2017-04-22 09:06 | Occ Therapy Progress Note ---
Therapy Progress Note Order received for OT eval and treat. Chart review completed. Pt admitted with left hip fracture. Spoke with RN who states pt will be going to surgery this morning. Will hold OT eval until after surgical intervention. Will attempt evaluation on 04/24/17. BERNARDO DAVIS OT Apr 22, 2017 09:06
[2017-04-22] MEDS ORDERED: SEVOFLURANE (ULTANE) 15 ML INHAL SOLN ONE (09:57)
[2017-04-22] MEDS ORDERED: GLYCOPYRROLATE 0.2 MG/ML (ROBINUL) 2 ML VIAL ONE (10:03)
[2017-04-22] MEDS ORDERED: NEOSTIGMINE (BLOXIVERZ ) 1 MG/1ML 10 ML VIAL ONE (10:03)
[2017-04-22] MEDS ORDERED: morphine INJ 10 MG/ML 1ML (SYR OR VIAL) ONE (10:07)
[2017-04-22] MEDS ORDERED: morphine INJ 10 MG/ML 1ML (SYR OR VIAL) IVP PRN (10:30)
[2017-04-22] MEDS ORDERED: fentaNYL INJECTION 100 MCG/2 ML AMP IVP PRN (10:30)
[2017-04-22] MEDS ORDERED: ONDANSETRON 4 MG/2 ML (SDV) Z0FRAN IVP PRN (10:30)
--- NOTE | 2017-04-22 10:32 | Diagnostic Imaging Report ---
INDICATION: Intraoperative evaluation EXAMINATION: Left hip fluoroscopic evaluation 04/22/2017 FINDINGS: Three views of the left hip are provided. This is a limited intraoperative fluoroscopic evaluation with radiologist not present for imaging. There are screws traversing the intertrochanteric aspect of the left hip. Alignment of the visualized osseous structures appears well preserved. IMPRESSION: 1. Uncomplicated but limited intraoperative evaluation of the left hip. Dictated by: Dictated on workstation # [id number]
[2017-04-22 12:00] VITALS: BP 125/65
[2017-04-22] MEDS: DILTIAZEM 30 MG (CARDIZEM) TAB PO SCH ×3 (12:18→20:45)
[2017-04-22] MEDS: DOCUSATE SODIUM 100 MG (COLACE) CAP PO SCH ×2 (12:18→20:45)
[2017-04-22 16:00] VITALS: BP 148/66
[2017-04-22] MEDS: HYDROcodone/APAP 7.5 MG/325 MG (LORTAB, LORCET PLUS) TABLET PO PRN (16:07)
[2017-04-22] MEDS: ENOXAPARIN 30 MG/0.3 ML (LOVENOX) SYR SC SCH (19:34)
[2017-04-22 19:40] VITALS: BP 156/64
[2017-04-22] MEDS: FAMOTIDINE 20 MG (PEPCID) TABLET PO SCH (20:45)
[2017-04-22] MEDS: SIMvastatin 20 MG (ZOCOR) TAB PO SCH (20:45)
[2017-04-23] VITALS (7 sets, daily range): BP systolic 146–169; BP diastolic 64–71
[2017-04-23] MEDS: HYDROcodone/APAP 7.5 MG/325 MG (LORTAB, LORCET PLUS) TABLET PO PRN ×2 (03:37→22:12)
[2017-04-23] MEDS: NS IV 1000 ML 1,000 ML IV SCH ×2 (05:01→15:55)
[2017-04-23 06:06] LABS: BASOPHILS % (AUTO) 0 % (0-10); EOSINOPHILS # (AUTO) 0.1 10^3/uL (0.0-0.3); EOSINOPHILS % (AUTO) 2 % (0-10); LYMPHOCYTES # (AUTO) 0.3 X 10^3 (1.0-4.0); LYMPHOCYTES % (AUTO) 7 % (12-44); MEAN CORPUSCULAR HEMOGLOBIN 31 PG (25-34); MEAN CORPUSCULAR HGB CONC 34 G/DL (32-36); MEAN CORPUSCULAR VOLUME 91 FL (80-99); MONOCYTES # (AUTO) 0.3 X 10^3 (0.0-1.0); MONOCYTES % (AUTO) 7 % (0-12); NEUTROPHILS % (AUTO) 84 % (42-75); PLATELET COUNT 188 10^3/uL (130-400); RED BLOOD COUNT 3.34 10^6/uL (4.35-5.85); RED CELL DISTRIBUTION WIDTH 13.8 % (10.0-14.5); WHITE BLOOD COUNT 4.7 10^3/uL (4.3-11.0)
[2017-04-23 06:17] LABS: INR 1.2 (0.8-1.4); PROTHROMBIN TIME PATIENT 14.8 SEC (12.2-14.7)
[2017-04-23 06:26] LABS: ALANINE AMINOTRANSFERASE 17 U/L (0-55); ANION GAP 6 MMOL/L (5-14); ASPARTATE AMINO TRANSFERASE 24 U/L (5-34); BILIRUBIN,TOTAL 0.7 MG/DL (0.1-1.0); BLOOD UREA NITROGEN 5 MG/DL (7-18); BUN/CREATININE RATIO 9; CALCIUM 7.6 MG/DL (8.5-10.1); CARBON DIOXIDE 26 MMOL/L (21-32); CHLORIDE 100 MMOL/L (98-107); CREATININE SERUM 0.56 MG/DL (0.60-1.30); GFR ESTIMATED > 60; GLUCOSE 103 MG/DL (70-105); MAGNESIUM 1.5 MG/DL (1.8-2.4); PHOSPHORUS 2.2 MG/DL (2.3-4.7); POTASSIUM 3.2 MMOL/L (3.6-5.0); SODIUM 132 MMOL/L (135-145); TOTAL PROTEIN 5.1 GM/DL (6.4-8.2)
--- NOTE | 2017-04-23 07:09 | Progress Note (SOAP) ---
Subjective Subjective Date Seen by Provider: Apr 23, 2017 Time Seen by Provider: 07:30 81 yo F s/p left hip repair yesterday- Pt had a temp of 100.2F overnight- an now is hanging around 99F. urine culture gram negative <[id number]. Pt reports a little pain in left hip but right now most of her pain is right below her right knee when the SCDs squeeze her leg. Denies flatulence or abdominal pain. Ate food yesterday. Review of Systems General: No Chills, No Night Sweats, Fatigue, No Malaise HEENT: Head Aches (resolved), No Visual Changes Pulmonary: No Dyspnea, No Cough Cardiovascular: No: Chest Pain, Orthopnea, Palpitations Gastrointestinal: No: Abdominal Pain, Constipation, Diarrhea, Hematochezia, Melena, Nausea, Vomiting Genitourinary: No Dysuria, No Frequency Musculoskeletal: leg pain (left hip pain, left below the knee pain with SCDs cycle), No: neck pain, shoulder pain Neurological: Weakness (left hip/leg), No: Change in speech, Confusion, Seizures Objective Exam Vital Signs Vital Signs Date Time Temp Pulse Resp B/P (MAP) Pulse Ox O2 Delivery O2 Flow Rate FiO2 04/23/17 04:15 99.5 04/23/17 04:14 99.5 04/23/17 03:57 100.2 73 20 169/66 93 Room Air 04/23/17 00:00 99.8 71 20 158/66 92 Room Air 04/22/17 19:40 99.2 70 20 156/64 93 Room Air 04/22/17 16:00 99.1 72 20 148/66 96 Room Air 04/22/17 12:00 96.4 59 20 125/65 95 Room Air 04/22/17 08:00 98.7 63 20 143/63 97 Room Air I & O 04/23/17 07:00 Intake Total 5610 ml Output Total 2000 ml Balance 3610 ml General Appearance: No Apparent Distress, Thin HEENT: PERRL/EOMI Neck: Full Range of Motion Respiratory: Chest Non Tender, Lungs Clear, Normal Breath Sounds, No Accessory Muscle Use, No Respiratory Distress Cardiovascular: Regular Rate, Rhythm, No Edema Gastrointestinal: Normal Bowel Sounds, Non Tender, Soft Rectal: Deferred Back: No CVA Tenderness Extremity: Normal Capillary Refill Neurologic/Psychiatric: Alert, Oriented x3, No Motor/Sensory Deficits, Normal Mood/Affect Skin: Normal Color, Warm/Dry Lymphatic: No Adenopathy Results Lab Laboratory Tests 04/23/17 05:52: White Blood Count 4.7, Red Blood Count 3.34L, Hemoglobin 10.2L, Hematocrit 30L, Mean Corpuscular Volume 91, Mean Corpuscular Hemoglobin 31, Mean Corpuscular Hemoglobin Concent 34, Red Cell Distribution Width 13.8, Platelet Count 188, Mean Platelet Volume 9.0, Neutrophils (%) (Auto) 84H, Lymphocytes (%) (Auto) 7L , Monocytes (%) (Auto) 7, Eosinophils (%) (Auto) 2, Basophils (%) (Auto) 0, Neutrophils # (Auto) 4.0, Lymphocytes # (Auto) 0.3L, Monocytes # (Auto) 0.3, Eosinophils # (Auto) 0.1, Basophils # (Auto) 0.0, Sodium Level 132L, Potassium Level 3.2L, Chloride Level 100, Carbon Dioxide Level 26, Anion Gap 6, Blood Urea Nitrogen 5L, Creatinine 0.56L, Estimat Glomerular Filtration Rate > 60, BUN /Creatinine Ratio 9, Glucose Level 103, Calcium Level 7.6L, Phosphorus Level 2.2L, Magnesium Level 1.5L, Total Bilirubin 0.7, Aspartate Amino Transf (AST/ SGOT) 24, Alanine Aminotransferase (ALT/SGPT) 17, Alkaline Phosphatase 46, Total Protein 5.1L, Albumin 3.0L Microbiology 04/21/17 Urine Culture - Preliminary, Resulted Gram Negative Raúl Assessment/Plan Assessment/Plan Assessment/Plan 81 yo F left hip fracture- subcapital femoral neck with minimal impaction - Dr. Huitron consulted- post op 04/22/17 - L percutaneous pinning. hyponatremia- NS IVF- will trend with repeat labs- improving osteoporosis- contributing to her fracture osteoarthritis- tolerable- mostly her hands ache in the cold- so doing well this summer GERD- continue famotidine HTN- continue diltiazem hypomagnesemia- replacing hypokalemia- replacing dvt ppx: scds, lovenox Dispo: monitor how she does today PT/OT ordered for evaluation. Pt willing to go to rehab then home. Problems: Clinical Quality Measures AMI/AHF: ASA po Prior to arrival: Yes DVT/VTE Risk/Contraindication: Risk Factor Score Per Nursin RFS Level Per Nursing on Admit: 4+=Very High JONATHAN GARSIA MD Apr 23, 2017 07:09
[2017-04-23] MEDS ORDERED: KCL 20 MEQ TAB (K-DUR) PO ONE (07:15)
[2017-04-23] MEDS ORDERED: MAGNESIUM 1 GM/100 ML IVPB 100 ML IV ONE (07:15)
[2017-04-23] MEDS ORDERED: ACETAMINOPHEN 500 MG TAB (TYLENOL) PO PRN (07:30)
[2017-04-23] MEDS: ENOXAPARIN 30 MG/0.3 ML (LOVENOX) SYR SC SCH ×2 (07:55→20:24)
[2017-04-23] MEDS: MAGNESIUM OXIDE (MAG-OX)400 MG TAB PO SCH ×2 (07:57→17:11)
[2017-04-23] MEDS: DILTIAZEM 30 MG (CARDIZEM) TAB PO SCH ×3 (08:01→20:22)
[2017-04-23] MEDS: DOCUSATE SODIUM 100 MG (COLACE) CAP PO SCH ×2 (08:01→20:22)
[2017-04-23] MEDS: LEVOFLOXACIN 750 MG/150 ML IV 150 ML IV SCH (09:04)
--- NOTE | 2017-04-23 09:20 | Progress Note (SOAP) ---
Subjective Date Seen by Provider: Apr 23, 2017 Time Seen by Provider: 08:50 Subjective/Events-last exam POD #1 s/p perc pinning left femoral neck fx. Laying in bed navas x 4, pain controlled. C/o some mild left knee pain, has no other symptoms to report. Review of Systems General: No Chills, No Night Sweats Pulmonary: No Dyspnea Cardiovascular: No: Chest Pain Gastrointestinal: No: Abdominal Pain, Nausea, Vomiting Neurological: No: Numbness, Weakness Objective Exam Vital Signs Date Time Temp Pulse Resp B/P (MAP) Pulse Ox O2 Delivery O2 Flow Rate FiO2 04/23/17 08:37 99.8 04/23/17 08:00 99.8 70 20 162/68 95 Room Air 04/23/17 04:15 99.5 04/23/17 04:14 99.5 04/23/17 03:57 100.2 73 20 169/66 93 Room Air 04/23/17 00:00 99.8 71 20 158/66 92 Room Air 04/22/17 19:40 99.2 70 20 156/64 93 Room Air 04/22/17 16:00 99.1 72 20 148/66 96 Room Air 04/22/17 12:00 96.4 59 20 125/65 95 Room Air I & O 04/23/17 07:00 Intake Total 5610 ml Output Total 2000 ml Balance 3610 ml Capillary Refill : Less Than 3 SecondsLess Than 3 Seconds General Appearance: No Apparent Distress Neck: Normal Inspection Respiratory: No Accessory Muscle Use, No Respiratory Distress Cardiovascular: Normal Peripheral Pulses Peripheral Pulses: 2+ Dorsalis Pedis (R), 2+ Left Dors-Pedis (L) Extremity: Non Tender, No Calf Tenderness, Other (bandage clean and dry over left hip, left knee stable, non tender) Neurologic/Psychiatric: Alert, Oriented x3, No Motor/Sensory Deficits Skin: Normal Color, Warm/Dry Results Lab Laboratory Tests 04/23/17 05:52: White Blood Count 4.7, Red Blood Count 3.34L, Hemoglobin 10.2L, Hematocrit 30L, Mean Corpuscular Volume 91, Mean Corpuscular Hemoglobin 31, Mean Corpuscular Hemoglobin Concent 34, Red Cell Distribution Width 13.8, Platelet Count 188, Mean Platelet Volume 9.0, Neutrophils (%) (Auto) 84H, Lymphocytes (%) (Auto) 7L , Monocytes (%) (Auto) 7, Eosinophils (%) (Auto) 2, Basophils (%) (Auto) 0, Neutrophils # (Auto) 4.0, Lymphocytes # (Auto) 0.3L, Monocytes # (Auto) 0.3, Eosinophils # (Auto) 0.1, Basophils # (Auto) 0.0, Sodium Level 132L, Potassium Level 3.2L, Chloride Level 100, Carbon Dioxide Level 26, Anion Gap 6, Blood Urea Nitrogen 5L, Creatinine 0.56L, Estimat Glomerular Filtration Rate > 60, BUN /Creatinine Ratio 9, Glucose Level 103, Calcium Level 7.6L, Phosphorus Level 2.2L, Magnesium Level 1.5L, Total Bilirubin 0.7, Aspartate Amino Transf (AST/ SGOT) 24, Alanine Aminotransferase (ALT/SGPT) 17, Alkaline Phosphatase 46, Total Protein 5.1L, Albumin 3.0L Microbiology 04/21/17 Urine Culture - Final, Complete Pseudomonas Aeruginosa Assessment/Plan Assessment/Plan Assess & Plan/Chief Complaint Assessment: s/p left perc pinning femoral neck left knee pain Plan: non weight bearing left leg x-rays today left hip left knee IS at bedside and encouraged lovenox for dvt prophylaxis consider rehab placement pain control Clinical Quality Measures AMI/AHF: ASA po Prior to arrival: Yes DVT/VTE Risk/Contraindication: Risk Factor Score Per Nursin RFS Level Per Nursing on Admit: 4+=Very High HARMONY BENAVIDES Apr 23, 2017 09:20
--- NOTE | 2017-04-23 11:25 | Diagnostic Imaging Report ---
INDICATION: Fell, knee pain. EXAMINATION: Left knee dated 04/23/2017. FINDINGS: Two views of the knee. There is minimal suprapatellar effusion. Patellofemoral narrowing and spurring is noted. No fractures appreciated. No dislocations. IMPRESSION: 1. Degenerative findings with minimal joint fluid. No acute fracture. Dictated by: Dictated on workstation # [id number]
--- NOTE | 2017-04-23 11:52 | Diagnostic Imaging Report ---
INDICATION: Postoperative evaluation, left hip pain. EXAMINATION: Left hip dated 04/23/2017. COMPARISON: Comparison made to a left hip CT dated 04/21/2017. FINDINGS: Postoperative changes noted. There has been interval placement of three screws through the left femoral neck. These appear unremarkable. The overlying skin rylie and a small amount of subcutaneous air consistent with recent surgery. No dislocations. IMPRESSION: 1. Uncomplicated postoperative change. Dictated by: Dictated on workstation # [id number]
--- NOTE | 2017-04-23 12:27 | Physical Therapy Evaluation ---
PT Evaluation-General Medical Diagnosis Admission Date Apr 21, 2017 at 15:18 Medical Diagnosis: L femoral neck fracture Onset Date: Apr 21, 2017 Therapy Diagnosis Therapy Diagnosis: decreased mobility Height/Weight Height (Feet): 5 Height (Inches): 2.00 Weight (Pounds): 86 Weight (Ounces): 0.0 Precautions Precautions/Isolations: Fall Prevention, Standard Precautions Weight Bear Status Weight Bearing Restriction: Non Weight Bearing Location Restriction: L LE Referral Physician: BRANDEN Richmond Reason for Referral: Evaluation/Treatment Medical History Pertinent Medical History: Arthritis, GERD, HTN Current History Pt. presented to ER with L hip pain following a fall at home. Reviewed History: Yes Social History Home: Single Level Current Living Status: Spouse Entry Into Home: Stairs Without Railing PT Steps Into Home: 2 Prior/Core FIM Prior Level of Function Functional [place] Measure 0=Not Assessed/NA 4=Minimal Assistance 1=Total Assistance 5=Supervision or Setup 2=Maximal Assistance 6=Modified [place] 3=Moderate Assistance 7=Complete [place] Bed Mobility: 7 Transfers (B,C,W/C) (FIM): 7 Gait: 7 PT Evaluation-Current Subjective Pt. up on commode with nursing staff upon arrival, reports "soreness" in L hip and says she is feeling nauseous. Pt/Family Goals home with spouse Objective Patient Orientation: Person, Place, Time, Situation Attachments: SCD's, IV ROM/Strength ROM Upper Extremities WFL ROM Lower Extremities WFL, except limited ROM L hip Strength Upper Extremities WFL Strenght Lower Extremities WFL R LE, L LE not tested Integumentary/Posture Integumentary see nursing notes Bowel Incontinence: No Bladder Incontinence: No Posture generally upright Neuromuscular (Tone, Coordination, Reflexes) unremarkable Sensory Vision: Wears Glasses Sensation Right Upper Extremit: Intact Sensation Left Upper Extremity: Intact Sensation Right Lower Extremit: Intact Sensation Left Lower Extremity: Intact Transfers Functional [place] Measure 0=Not Assessed/NA 4=Minimal Assistance 1=Total Assistance 5=Supervision or Setup 2=Maximal Assistance 6=Modified [place] 3=Moderate Assistance 7=Complete [place] Transfers (B, C, W/C) (FIM): 4 Scootin Supine to/from Sit: 4 Sit to/from Stand: 4 Gait Anticipated Mode of Locomotion: Walk Distance (FIM): 0=does not occure Balance Sitting Static: Good Sitting Dynamic: Good Standing Static: Good Standing Dynamic: Fair Treatment LE exercises x 10 reps: APs, quad set, SLR, supine hip abd, GS Assessment/Needs Pt. presents with decreased mobility and strength following L hip pinning due to a fall at home. Pt. did well with transferring commode to bed, able to maintain NWB on the L LE. Pt. will benefit from skilled PT to improve mobility and strength for return home with spouse. She would be a good candidate for ARU. Rehab Potential: Good PT Correction Goals Shredding Machine Operator Goals PT Shredding Machine Operator Goals Time Frame: Apr 30, 2017 Transfers (B,C,W/C) (FIM): 5 Gait (FIM): 4 Gait distance (FIM): 1=up to 49 ft Distance: 25 ft Gait Level of Assist: 4 Gait Assistive Device: FWW PT Plan Problem List Problem List: Activity Tolerance, Functional Strength, Safety, Balance, Gait, Transfer, Bed Mobility, ROM Treatment/Plan Treatment Plan: Continue Plan of Care Treatment Plan: Bed Mobility, Education, Functional Activity Damien, Functional Strength, Gait, Safety, Therapeutic Exercise, Transfers Treatment Duration: Apr 30, 2017 Frequency: Twice Daily Estimated Hrs Per Day: .5 hour per day Patient and/or Family Agrees t: Yes Time/GCodes Time In: 1135 Time Out: 1200 Total Billed Treatment Time: 25 Total Billed Treatment 1, [id number]', EX 10' BERT LOMELI PT Apr 23, 2017 12:27
[2017-04-23] MEDS: KCL 20 MEQ TAB (K-DUR) PO SCH (17:11)
--- NOTE | 2017-04-23 18:12 | Anesthesia-General Post-Op ---
General Patient Condition Mental Status/LOC: Same as Preop Cardiovascular: Satisfactory Nausea/Vomiting: Absent Respiratory: Satisfactory Pain: Controlled Complications: Absent Post Op Complications Complications None Follow Up Care/Instructions Patient Instructions None needed. Anesthesia/Patient Condition Patient Condition Patient is doing well, no complaints, stable vital signs, no apparent adverse anesthesia problems. No complications reported per nursing. GABE QUIROZ CRNA Apr 23, 2017 18:12
[2017-04-23] MEDS: FAMOTIDINE 20 MG (PEPCID) TABLET PO SCH (20:22)
[2017-04-23] MEDS: SIMvastatin 20 MG (ZOCOR) TAB PO SCH (20:22)
[2017-04-24] MEDS: NS IV 1000 ML 1,000 ML IV SCH (00:43)
[2017-04-24 03:40] VITALS: BP 120/79
[2017-04-24 06:04] LABS: BASOPHILS % (AUTO) 0 % (0-10); EOSINOPHILS # (AUTO) 0.1 10^3/uL (0.0-0.3); EOSINOPHILS % (AUTO) 3 % (0-10); LYMPHOCYTES # (AUTO) 0.4 X 10^3 (1.0-4.0); LYMPHOCYTES % (AUTO) 7 % (12-44); MEAN CORPUSCULAR HEMOGLOBIN 31 PG (25-34); MEAN CORPUSCULAR HGB CONC 34 G/DL (32-36); MEAN CORPUSCULAR VOLUME 91 FL (80-99); MONOCYTES # (AUTO) 0.4 X 10^3 (0.0-1.0); MONOCYTES % (AUTO) 8 % (0-12); NEUTROPHILS # (AUTO) 4.4 X 10^3 (1.8-7.8); NEUTROPHILS % (AUTO) 83 % (42-75); PLATELET COUNT 172 10^3/uL (130-400); RED BLOOD COUNT 3.12 10^6/uL (4.35-5.85); RED CELL DISTRIBUTION WIDTH 13.7 % (10.0-14.5); WHITE BLOOD COUNT 5.3 10^3/uL (4.3-11.0)
[2017-04-24 06:26] LABS: ALANINE AMINOTRANSFERASE 19 U/L (0-55); ANION GAP 11 MMOL/L (5-14); ASPARTATE AMINO TRANSFERASE 24 U/L (5-34); BILIRUBIN,TOTAL 0.4 MG/DL (0.1-1.0); BLOOD UREA NITROGEN 4 MG/DL (7-18); BUN/CREATININE RATIO 8; CALCIUM 7.3 MG/DL (8.5-10.1); CARBON DIOXIDE 22 MMOL/L (21-32); CHLORIDE 100 MMOL/L (98-107); CREATININE SERUM 0.53 MG/DL (0.60-1.30); GFR ESTIMATED > 60; GLUCOSE 119 MG/DL (70-105); MAGNESIUM 1.6 MG/DL (1.8-2.4); PHOSPHORUS 1.7 MG/DL (2.3-4.7); POTASSIUM 3.3 MMOL/L (3.6-5.0); SODIUM 133 MMOL/L (135-145); TOTAL PROTEIN 5.2 GM/DL (6.4-8.2)
[2017-04-24 08:00] VITALS: BP 175/68
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
[2017-04-24] MEDS: DILTIAZEM 30 MG (CARDIZEM) TAB PO SCH ×4 (08:55→20:00)
[2017-04-24] MEDS: HYDROcodone/APAP 7.5 MG/325 MG (LORTAB, LORCET PLUS) TABLET PO PRN ×2 (08:55→14:18)
[2017-04-24] MEDS: DOCUSATE SODIUM 100 MG (COLACE) CAP PO SCH ×2 (08:55→20:00)
[2017-04-24] MEDS: MAGNESIUM OXIDE (MAG-OX)400 MG TAB PO SCH ×2 (08:55→17:56)
[2017-04-24] MEDS ORDERED: CALC-787 PO (09:03)
[2017-04-24] MEDS ORDERED: CALC300T4 PO (09:03)
[2017-04-24] MEDS ORDERED: DOCU100C37 PO (09:03)
[2017-04-24] MEDS ORDERED: ACET-2422 PO ×2 (09:25→09:30)
[2017-04-24] MEDS ORDERED: CETI10TA17 PO (09:25)
--- NOTE | 2017-04-24 10:09 | Physical Therapy Daily Note ---
PT Daily Note-Current Subjective Patient agrees to PT. Patient voices understanding of NWB left LE. Pain Numeric Pain Scale: 5-Moderate Pain Location: Left Location Body Site: Hip Pain Description: Acute Mental Status Patient Orientation: Normal For Age Transfers Functional [place] Measure 0=Not Assessed/NA 4=Minimal Assistance 1=Total Assistance 5=Supervision or Setup 2=Maximal Assistance 6=Modified [place] 3=Moderate Assistance 7=Complete IndependenceIRFPAI Quality Coding Scale 6 Independent with activity with or without an assistive device 5 Patient requires set up or clean up by helper. Patient completes activity by themselves 4 Supervision or touching assist (CGA). [place] provide cues , steadying assist 3 The helper provides less than half the effort to complete the activity 2 The helper provides more than half the effort to complete the activity 1 Dependent. The helper does all the effort to complete an activity 7 Patient refused to complete or attempt activity 9 The patient did not perform the activity before the current illness or injury 88 Not attempted due to Medical conditions or safety concerns Transfers (B, C, W/C) (FIM): 4 Scootin Rollin Supine to/from Sit: 4 Sit to/from Stand: 4 Bed to/from Chair: 4 minimal assist for safety and weight shifting with use of gait belt Weight Bearing Weight Bearing Restriction: Non Weight Bearing Location Restriction: L LE difficulty with compliance Gait Training Gait (FIM): 1 Distance (FIM): 1=up to 49 ft Distance: 3' x 4 Gait Level of Assist: 3 Gait Persons Needed: 1 Gait Assistive Device: FWW mod assist to assist patient from placing left foot on ground due to NWB status Exercises Supine Ex: Ankle pumps, Quad Set Supine Reps: 15 Seated Therapy Exercises: Ankle pumps, Long arc quads Seated Reps: 20 Assessment Patient voices concern with NWB left LE and how long she would have to maintain this status. PT instructed to consult with physician, however, did discuss if NWB left LE x 4-6 weeks what would be the plan. PT consult SW on plan due to patient desires to educate self on all options from AUR to custodial to home health. Patient voices concern that her home is not set up for a w/c and spouse is unable to assist with ADL's, cooking, etc. and her inability to safely "hop" to prevent left LE from assisting with mobility. PT Logistics Manager Goals Correction Goals PT Logistics Manager Goals Time Frame: Apr 30, 2017 Transfers (B,C,W/C) (FIM): 5 Gait (FIM): 4 Gait distance (FIM): 1=up to 49 ft Distance: 25 ft Gait Level of Assist: 4 Gait Assistive Device: FWW PT Plan Treatment/Plan Treatment Plan: Continue Plan of Care Treatment Plan: Bed Mobility, Education, Functional Activity Damien, Functional Strength, Gait, Safety, Therapeutic Exercise, Transfers Treatment Duration: Apr 30, 2017 Frequency: Twice Daily Estimated Hrs Per Day: .5 hour per day Patient and/or Family Agrees t: Yes Time/GCodes Time In: 920 Time Out: 943 Total Billed Treatment Time: 23 Total Billed Treatment 1 visit EX 10 min FA 13 min NICKY VALADEZ PT Apr 24, 2017 10:09
[2017-04-24 12:00] VITALS: BP 167/69
--- NOTE | 2017-04-24 14:04 | Physical Therapy Daily Note ---
PT Daily Note-Current Subjective Patient is in bed and agrees to PT. Patient reports she will transfer to rehab tomorrow and she and her discussed that she will go to [facility] after rehab for continued care due to NWB of left leg. Pain Numeric Pain Scale: 5-Moderate Pain Location: Left Location Body Site: Hip Pain Description: Acute Mental Status Patient Orientation: Normal For Age Transfers Functional [place] Measure 0=Not Assessed/NA 4=Minimal Assistance 1=Total Assistance 5=Supervision or Setup 2=Maximal Assistance 6=Modified [place] 3=Moderate Assistance 7=Complete IndependenceIRFPAI Quality Coding Scale 6 Independent with activity with or without an assistive device 5 Patient requires set up or clean up by helper. Patient completes activity by themselves 4 Supervision or touching assist (CGA). [place] provide cues , steadying assist 3 The helper provides less than half the effort to complete the activity 2 The helper provides more than half the effort to complete the activity 1 Dependent. The helper does all the effort to complete an activity 7 Patient refused to complete or attempt activity 9 The patient did not perform the activity before the current illness or injury 88 Not attempted due to Medical conditions or safety concerns Transfers (B, C, W/C) (FIM): 4 Scootin Rollin Supine to/from Sit: 5 Sit to/from Stand: 4 Weight Bearing Weight Bearing Restriction: Non Weight Bearing Location Restriction: L LE Gait Training Gait (FIM): 1 Distance (FIM): 1=up to 49 ft Distance: 10' Gait Level of Assist: 4 Gait Persons Needed: 1 Gait Assistive Device: FWW NWB left LE with PT assist with use of gait belt for patient to "hop"; patient did place left foot to floor x 3 times to take a step requiring skilled verbal instruction and tactile assist to prevent this. Exercises Supine Ex: Ankle pumps, Quad Set, Heel Slides, Straight leg raise, Hip abd/add Supine Reps: 15 (AROM bilateral LE) Seated Therapy Exercises: Ankle pumps, Long arc quads Seated Reps: 15 (AROM) Assessment Patient is progressing with treatment plan. From a PT standpoint, due to NWB left LE, patient will require extended care and time to allow appropriate healing of left hip to return to home safely with spouse. PT Fiberglass Roller Goals Fiberglass Roller Goals PT Fiberglass Roller Goals Time Frame: Apr 30, 2017 Transfers (B,C,W/C) (FIM): 5 Gait (FIM): 4 Gait distance (FIM): 1=up to 49 ft Distance: 25 ft Gait Level of Assist: 4 Gait Assistive Device: FWW PT Plan Treatment/Plan Treatment Plan: Continue Plan of Care Treatment Plan: Bed Mobility, Education, Functional Activity Damien, Functional Strength, Gait, Safety, Therapeutic Exercise, Transfers Treatment Duration: Apr 30, 2017 Frequency: Twice Daily Estimated Hrs Per Day: .5 hour per day Patient and/or Family Agrees t: Yes Time/GCodes Time In: 1336 Time Out: 1359 Total Billed Treatment Time: 23 Total Billed Treatment 1 visit GT 8 min EX 15 min NICKY VALADEZ PT Apr 24, 2017 14:04
--- NOTE | 2017-04-24 14:24 | Occupational Therapy Eval ---
OT Evaluation-General/PLF Medical Diagnosis Admission Date Apr 21, 2017 at 15:18 Medical Diagnosis: L femoral neck fracture Onset Date: Apr 21, 2017 Therapy Diagnosis Therapy Diagnosis: decr self care, weakness, decr funct mobility Height/Weight Height (Feet): 5 Height (Inches): 2.00 Weight (Pounds): 86 Weight (Ounces): 0.0 Precautions Precautions/Isolations: Fall Prevention, Standard Precautions, Pressure Ulcer Safety Interventions: None Weight Bear Status Weight Bearing Restriction: Non Weight Bearing Location Restriction: L LE Referral Physician: BRANDEN [place] Referral Reason: Evaluation/Treatment Medical History Pertinent Medical History: Arthritis, GERD, HTN, OA Additional Medical History Hiatal hernia, osteoporosis, bowel obstruction with surgery 2016, cataract surgery. Pt reported she has macular degeneration. Recent trigger finger surgery Current History Episode of syncope getting something out of trunk, fell and had L hip and rib pain. L hip pinning 04-22-17 Reviewed History: Yes Social History Home: Single Level Current Living Status: Spouse Entry Into Home: Stairs Without Railing Steps Into Home: 2 ADL-Prior Level of Function ADL PLOF Comments Pt reported that she was able to manage her basic self care needs prior to injury. She manages most IADLs but has a housekeeper hospital to help with cleaning. 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 DME/Equipment: Grab Bars, Tall Toilet, Tub/Shower OT Current Status Subjective Pt seen in room, up in bed, agreeable to OT. Pain not mentioned and no pain behaviors observed. Appearance Alert, cooperative Mental Status/Objective Attachments: Central Line Current Glasses/Contacts: Yes Hearing Aids: No Dentures/Partials: Yes (partial) Hand Dominance: Right Upper Extremity ROM grossly WFL bilat Upper Extremity Sensation no problems, per patient report Upper Extremity Strength grossly 4/5 bilat ADL-Treatment Functional [place] Measure 0=Not Assessed/NA 4=Minimal Assistance 1=Total Assistance 5=Supervision or Setup 2=Maximal Assistance 6=Modified [place] 3=Moderate Assistance 7=Complete IndependenceIRFPAI Quality Coding Scale 6 Independent with activity with or without an assistive device 5 Patient requires set up or clean up by helper. Patient completes activity by themselves 4 Supervision or touching assist (CGA). [place] provide cues , steadying assist 3 The helper provides less than half the effort to complete the activity 2 The helper provides more than half the effort to complete the activity 1 Dependent. The helper does all the effort to complete an activity 7 Patient refused to complete or attempt activity 9 The patient did not perform the activity before the current illness or injury 88 Not attempted due to Medical conditions or safety concerns Eating (FIM): 6 Education OT Patient Education: Purpose of tx/functional activities, Rehab process OT Street Inspector Goals Street Inspector Goals Time Frame: May 12, 2017 Grooming(FIM): 6 Bathing(FIM): 5 Upper Body Dressing(FIM): 6 Lower Body Dressing(FIM): 6 Toileting(FIM): 6 Toilet/Commode Transfer(FIM): 6 Shower Transfer(FIM): 6 Additional Goals: 2-Verbalize Understanding, 3-ImproveStrength/Damien 1=Demonstrate adherence to instructed precautions during ADL tasks. 2=Patient will verbalize/demonstrate understanding of assistive devices/ modifications for ADL. 3=Patient will improve strength/tolerance for activity to enable patient to perform ADL's. OT Education/Plan Problem List/Assessment Assessment: Decreased Activ Tolerance, Decreased UE Strength, Dependent Transfers, Impaired Funct Balance, Impaired Self-Care Skills Pt would benefit from skilled OT to increase her independence in basic self care to allow her to safely return to her home to live with her and to decrease caregiver burden Discharge Recommendations Plan/Recommendations: Continue POC Therapy D/C Recommendations: Acute Rehab Barriers to Progress low vision Treatment Plan/Plan of Care Treatment,Training & Education: Yes Patient would benefit from OT for education, treatment and training to promote independence in ADL's, mobility, safety and/or upper extremity function for ADL' s. Plan of Care: ADL Retraining, Functional Mobility, UE Funct Exercise/Act, UE Neuromus Re-Ed/Coord Treatment Duration: May 12, 2017 Frequency: Daily (5-6 times a week) Estimated Hrs Per Day: .5 hour per day Rehab Potential: Good Time/GCodes Start Time: 13:15 Stop Time: 13:30 Total Time Billed (hr/min): 15 Billed Treatment Time visit, 15 minutes evaluation moderate intensity BRIGID DAVIS OT Apr 24, 2017 14:24
[2017-04-24 16:45] VITALS: BP 146/65
[2017-04-24] MEDS: KCL 20 MEQ TAB (K-DUR) PO SCH (17:56)
[2017-04-24 19:40] VITALS: BP 152/64
[2017-04-24] MEDS: SIMvastatin 20 MG (ZOCOR) TAB PO SCH (20:00)
[2017-04-24] MEDS ORDERED: ENOXAPARIN 30 MG/0.3 ML (LOVENOX) SYR SC SCH (20:00)
[2017-04-24] MEDS ORDERED: FAMOTIDINE 20 MG (PEPCID) TABLET PO SCH (21:00)
[2017-04-25 00:05] VITALS: BP 148/74
[2017-04-25 03:50] VITALS: BP 152/75
[2017-04-25 05:18] LABS: MEAN PLATELET VOLUME 8.9 FL (7.4-10.4); RED BLOOD COUNT 3.13 10^6/uL (4.35-5.85); RED CELL DISTRIBUTION WIDTH 13.8 % (10.0-14.5); WHITE BLOOD COUNT 4.4 10^3/uL (4.3-11.0)
[2017-04-25 05:33] LABS: ALANINE AMINOTRANSFERASE 18 U/L (0-55); ALBUMIN 3.1 GM/DL (3.2-4.5); ANION GAP 6 MMOL/L (5-14); ASPARTATE AMINO TRANSFERASE 25 U/L (5-34); BILIRUBIN,TOTAL 0.6 MG/DL (0.1-1.0); BLOOD UREA NITROGEN 7 MG/DL (7-18); BUN/CREATININE RATIO 13; CALCIUM 7.7 MG/DL (8.5-10.1); CARBON DIOXIDE 27 MMOL/L (21-32); CHLORIDE 99 MMOL/L (98-107); CREATININE SERUM 0.54 MG/DL (0.60-1.30); GFR ESTIMATED > 60; GLUCOSE 107 MG/DL (70-105); POTASSIUM 3.6 MMOL/L (3.6-5.0); SODIUM 132 MMOL/L (135-145); TOTAL PROTEIN 5.5 GM/DL (6.4-8.2)
[2017-04-25 08:00] VITALS: BP 149/68
[2017-04-25] MEDS: LEVOFLOXACIN 750 MG/150 ML IV 150 ML IV SCH (08:39)
[2017-04-25] MEDS: MAGNESIUM OXIDE (MAG-OX)400 MG TAB PO SCH (08:39)
[2017-04-25] MEDS: DILTIAZEM 30 MG (CARDIZEM) TAB PO SCH (08:39)
[2017-04-25] MEDS: DOCUSATE SODIUM 100 MG (COLACE) CAP PO SCH (08:39)
[2017-04-25] MEDS ORDERED: LEVO500T2 PO (09:19)
[2017-04-25] MEDS ORDERED: HYDR-3816 PO (09:19)
[2017-04-25] MEDS ORDERED: DILT30TA PO ×2 (09:19→12:58)
--- NOTE | 2017-04-25 09:24 | Discharge Summary ---
Diagnosis/Chief Complaint Date of Admission Apr 21, 2017 at 15:18 Date of Discharge Discharge Date: Apr 25, 2017 Discharge Time: 929 Discharge Summary Discharge Physical Examination Allergies: Coded Allergies: bacitracin (Verified Allergy, Unknown, 10/06/15) lidocaine (Verified Allergy, Unknown, 10/06/15) neomycin (Verified Allergy, Unknown, 10/06/15) polymyxin B (Verified Allergy, Unknown, 10/06/15) pramoxine (Verified Allergy, Unknown, 10/06/15) Vitals & I&Os Vital Signs Date Time Temp Pulse Resp B/P (MAP) Pulse Ox O2 Delivery O2 Flow Rate FiO2 04/25/17 03:50 98.0 72 18 152/75 95 Room Air Hospital Course Pending Labs Laboratory Tests 04/25/17 05:00: White Blood Count 4.4, Red Blood Count 3.13, Hemoglobin 9.7, Hematocrit 29, Mean Corpuscular Volume 91, Mean Corpuscular Hemoglobin 31, Mean Corpuscular Hemoglobin Concent 34, Red Cell Distribution Width 13.8, Platelet Count 202, Mean Platelet Volume 8.9, Sodium Level 132, Potassium Level 3.6, Chloride Level 99, Carbon Dioxide Level 27, Anion Gap 6, Blood Urea Nitrogen 7, Creatinine 0.54 , Estimat Glomerular Filtration Rate > 60, BUN/Creatinine Ratio 13, Glucose Level 107, Calcium Level 7.7, Total Bilirubin 0.6, Aspartate Amino Transf (AST/ SGOT) 25, Alanine Aminotransferase (ALT/SGPT) 18, Alkaline Phosphatase 49, Total Protein 5.5, Albumin 3.1 Discharge Instructions to patient/family Please see electonic discharge instructions given to patient. Discharge Medications Reviewed and agree with Discharge Medication list on patient's Discharge Instruction sheet Clinical Quality Measures AMI/AHF: ASA po Prior to arrival: Yes DVT/VTE Risk/Contraindication: Risk Factor Score Per Nursin RFS Level Per Nursing on Admit: 4+=Very High ZEV FARRAR MD Apr 25, 2017 09:24
[2017-04-25] MEDS: HYDROcodone/APAP 7.5 MG/325 MG (LORTAB, LORCET PLUS) TABLET PO PRN (10:37)
--- NOTE | 2017-04-25 13:39 | OPERATIVE REPORT ---
DATE OF SERVICE: 04/22/2017 SURGEON: Dr. Clive Huitron DO PARTS DATA WRITER: BRANDEN [place] This is a medically necessary procedure. Assistance is necessary for retraction of vital neurovascular structures. Without an medical support assistant, the procedure would not be possible. PREOPERATIVE DIAGNOSES: 1. Valgus impacted left femoral neck fracture. 2. Osteoporosis. POSTOPERATIVE DIAGNOSES: 1. Valgus impacted left femoral neck fracture. 2. Osteoporosis. PROCEDURES PERFORMED: Closed reduction percutaneous pinning of left femoral neck fracture. COMPLICATIONS: None. SPECIMENS SENT: None. DRAIN PLACED: None. ANESTHESIA: General endotracheal anesthesia with local anesthetic. HISTORY OF PRESENT ILLNESS: The patient is a very pleasant 81-year-old female who presented to [facility] with inability to bear weight after a fall. Imaging indicated a valgus impacted stable left femoral neck fracture. She did understand the risks and benefits of surgery and wished to proceed with surgical stabilization to prevent fracture displacement. OPERATION: The patient was identified by name on wrist band in the preoperative holding area. Her operative site was signed and consent was signed. SCDs were placed. Antibiotics were started. She was taken to the operating room theater, placed under general endotracheal anesthesia and transferred to the operating room table in the supine position. The unaffected right lower extremity was abducted and externally rotated. The affected left lower extremity was placed in gentle traction and internally rotated. She was then prepped and draped in the usual sterile fashion. A formal timeout was conducted. AP x-ray was then brought in. An incision was made over the greater trochanter on the left side and we did incise the fascia giving us access to the lateral femur. We then advanced a guidewire parallel with the femoral neck. We followed that with two additional guidewires in parallel fashion in an inverted triangle orientation. We then measured for the appropriate length screw, reamed the lateral cortex and we placed three cannulated 6.5 mm lag screws into the femoral neck. We then removed the K wires, the guidewires. We obtained a final AP and lateral x-ray. Screws were in good position. At this point, I irrigated the wound, closed the wound in my usual layered fashion utilizing 0-Vicryl, followed by 2-0 Vicryl, followed by rylie for skin. I applied dressings, took the patient in a supine position to the PACU where she awoke without incident. She tolerated the procedure well. Plan at this time is to have the patient on protected weightbearing. I will see him back in 2 weeks. She knows to keep her wound clean and dry, change the dressings daily. She will be placed on DVT chemoprophylaxis per medicine. Job ID: [id number] DocumentID: [id number] Dictated Date: 04/22/2017 11:52:08 E Business Consultant Date: 04/25/2017 13:39:34 Dictated By: CLIVE HUITRON DO
== END 2017-04-25 10:40 | DRG 481 ==
LOC: EDUNIT# 11:22 → ER 11:27 → 4TH 15:18 → ENPENDDIS 04-25 09:30
PROVIDERS: ADMIT Family Medicine; ATTEND Family Medicine
PROC: 0QH734Z Insertion of Internal Fixation Device into Left Upper Femur, Percutaneous Approach (ICD-10-PCS; principal; 2017-04-22 08:55)
DX: M80.052A Age-related osteoporosis with current pathological fracture, left femur, initial encounter for fracture (principal); S00.83XA Contusion of other part of head, initial encounter; R07.81 Pleurodynia; M25.562 Pain in left knee; E87.1 Hypo-osmolality and hyponatremia; R55 Syncope and collapse; I10 Essential (primary) hypertension; R50.9 Fever, unspecified; E87.6 Hypokalemia; E83.42 Hypomagnesemia; E78.00 Pure hypercholesterolemia, unspecified; K21.9 Gastro-esophageal reflux disease without esophagitis; K44.9 Diaphragmatic hernia without obstruction or gangrene; M19.91 Primary osteoarthritis, unspecified site; E83.39 Other disorders of phosphorus metabolism; D64.9 Anemia, unspecified; F32.9 Major depressive disorder, single episode, unspecified; E78.5 Hyperlipidemia, unspecified; Z87.09 Personal history of other diseases of the respiratory system
CPT/HCPCS: 36415; 51702; 70450; 71101; 72125; 73502; 73560; 73700; 80053; 80069; 81000; 83735; 84100; 84484; 85025; 85027; 85610; 85730; 87081; 87088; 87186; 93005; 93041; 94664; 96374; 96376

== ENCOUNTER 2017-04-25 10:50 | Inpatient (IN) | payer MEDICARE, OTHER ==
[~2017-04-25] VITALS: Ht 160 cm; Wt 37.4 kg
[~2017-04-25 10:50] MED LIST changes: +ACET-2422 PO; +CALC-787 PO; +CALC300T4 PO; +CETI10TA17 PO; +DOCU100C37 PO; +HYDR-3816 PO; +LEVO500T2 PO
--- NOTE | 2017-04-25 11:57 | Occupational Therapy Eval ---
OT Evaluation-General/PLF Medical Diagnosis Admission Date Apr 25, 2017 at 10:50 Medical Diagnosis: Left femoral neck fracture Onset Date: Apr 21, 2017 Therapy Diagnosis Therapy Diagnosis: decreased self care skills Height/Weight Height (Feet): 5 Height (Inches): 2.00 Weight (Pounds): 86 Weight (Ounces): 0.0 Weight Bear Status Weight Bearing Restriction: Non Weight Bearing Location Restriction: L LE Referral Physician: Jeromy Medical History Pertinent Medical History: Arthritis, GERD, HTN, OA Additional Medical History Hiatal hernia, osteoporosis, bowel obstruction surgery 2016, cataract surgery, macular degeneration, trigger finger surgery on right hand Current History Pt had fall resulting in left hip fracture. Left hip pinning 04/22/17 Reviewed History: Yes Social History Home: Multilevel (Pt states they have a basement, but she can stay on the main level) Current Living Status: Spouse Entry Into Home: Stairs With Railing Steps Into Home: 2 ADL-Prior Level of Function ADL PLOF Comments Pt reports being independent with basic self care and mobility. Does not use any assistive devices for mobility. Pt reports having a domestic housekeeper 1x/wk for heavy cleaning, but pt does the cooking and everyday cleaning tasks. Pt states she does not drive due to macular degeneration. DME/Equipment: Tall Toilet, Tub/Shower Drive Self: No OT Current Status Subjective Pt agreeable to therapy this am. Reports 4/10 pain in left LE. Mental Status/Objective Patient Orientation: Person, Place, Situation Current Glasses/Contacts: Yes Hearing Aids: No Dentures/Partials: Yes (partial) Upper Extremity ROM Grossly WFL Upper Extremity Coordination Intact Upper Extremity Strength Grossly 4/5 ADL-Treatment ADL-Current Pt supine to sit with minimal assistance. Transfer to chair with minimal assistance using FWW. Pt able to maintain NWB left LE. Pt participated in UE assessment while seated in chair. Sponge bath completed while seated in chair. Pt able to bathe bilateral UE, chest, abdomen, bilateral upper legs, and kirsten area. Assist for other areas. Don pullover shirt with set up. Max assist to don underwear and pants. Assist to start pants over feet. Stood with minimal assistance using FWW for balance during pant hike. Pt requires occasional rest breaks during functional tasks. Pt seated in chair with PT present after session. Functional [place] Measure 0=Not Assessed/NA 4=Minimal Assistance 1=Total Assistance 5=Supervision or Setup 2=Maximal Assistance 6=Modified [place] 3=Moderate Assistance 7=Complete IndependenceIRFPAI Quality Coding Scale 6 Independent with activity with or without an assistive device 5 Patient requires set up or clean up by helper. Patient completes activity by themselves 4 Supervision or touching assist (CGA). [place] provide cues , steadying assist 3 The helper provides less than half the effort to complete the activity 2 The helper provides more than half the effort to complete the activity 1 Dependent. The helper does all the effort to complete an activity 7 Patient refused to complete or attempt activity 9 The patient did not perform the activity before the current illness or injury 88 Not attempted due to Medical conditions or safety concerns Bathing (FIM): 3 Shower/Bathe Self (QC): 3 Upper Body Dressing (FIM): 5 Upper Body Dressing (QC): 5 Lower Body Dressing (FIM): 2 Lower Body Dressing (QC): 2 Education OT Patient Education: Rehab process Teaching Recipient: Patient Teaching Methods: Discussion Response to Teaching: Verbalize Understanding OT Short Term Goals Short Term Goals Time Frame: May 02, 2017 Bathing(FIM): 4 Lower Body Dressing(FIM): 4 Toileting(FIM): 4 Toilet/Commode Transfer(FIM): 5 Shower Transfer(FIM): 4 Additional Short Term Goals: 1-Demonstrate ADL Tasks, 2-Verbalize Understanding , 3-ImproveStrength/Damien 1=Demonstrate adherence to instructed precautions during ADL tasks. 2=Patient will verbalize/demonstrate understanding of assistive devices/ modifications for ADL. 3=Patient will improve strength/tolerance for activity to enable patient to perform ADL's. OT Skilled Nursing Goals Skilled Nursing Goals Time Frame: May 16, 2017 Eating (FIM): 6 Eating (QC): 6 Groomin Oral Hygiene (QC): 6 Bathing(FIM): 5 Shower/Bathe Self (QC): 5 Upper Body Dressing(FIM): 5 Upper Body Dressing (QC): 5 Lower Body Dressing(FIM): 5 Lower Body Dressing (QC): 5 On/Off Footwear (QC): 5 Toileting(FIM): 6 Toilet/Commode Transfer(FIM): 6 Toilet/Commode Transfer (QC): 6 Shower Transfer(FIM): 5 Additional Goals: 1-Demonstrate ADL Tasks, 2-Verbalize Understanding, 3- ImproveStrength/Damien 1=Demonstrate adherence to instructed precautions during ADL tasks. 2=Patient will verbalize/demonstrate understanding of assistive devices/ modifications for ADL. 3=Patient will improve strength/tolerance for activity to enable patient to perform ADL's. Goals established to promote increased functional independence and allow safe return home. OT Education/Plan Problem List/Assessment Assessment: Decreased Activ Tolerance, Decreased UE Strength, Dependent Transfers, Impaired Self-Care Skills Pt to benefit from skilled OT intervention for ADL training, transfers, strengthening, adaptive equipment training, and home safety education to maximize level of function and allow safe return home. Discharge Recommendations Plan/Recommendations: Continue POC Treatment Plan/Plan of Care Treatment,Training & Education: Yes Patient would benefit from OT for education, treatment and training to promote independence in ADL's, mobility, safety and/or upper extremity function for ADL' s. Plan of Care: ADL Retraining, Functional Mobility, UE Funct Exercise/Act Treatment Duration: May 16, 2017 Frequency: At least 5-7 days/Wk (IRF) Estimated Hrs Per Day: 1.5 hours per day Agreement: Yes Rehab Potential: Good Time/GCodes Start Time: 10:35 Stop Time: 11:20 Total Time Billed (hr/min): 45 Billed Treatment Time 1 visit, EVM(15minutes), ADLx2(30minutes) BERNARDO DAVIS OT Apr 25, 2017 11:57
--- NOTE | 2017-04-25 12:52 | Physical Therapy Evaluation ---
PT Evaluation-General Medical Diagnosis Admission Date Apr 25, 2017 at 10:50 Medical Diagnosis: Left femoral neck fracture Onset Date: Apr 21, 2017 Therapy Diagnosis Therapy Diagnosis: generalized weakness/debility Height/Weight Height (Feet): 5 Height (Inches): 2.00 Weight (Pounds): 86 Weight (Ounces): 0.0 Precautions Precautions/Isolations: Fall Prevention, Standard Precautions Weight Bear Status Weight Bearing Restriction: Non Weight Bearing Location Restriction: L LE Referral Physician: Jeromy Reason for Referral: Evaluation/Treatment Medical History Pertinent Medical History: Arthritis, GERD, HTN, OA Current History s/p fall resulting in left subcapital femoral head fracture Reviewed History: Yes Social History Home: Multilevel (Pt states they have a basement, but she can stay on the main level) Current Living Status: Spouse Entry Into Home: Stairs With Railing PT Steps Into Home: 2 Prior/Core FIM Prior Level of Function Functional [place] Measure 0=Not Assessed/NA 4=Minimal Assistance 1=Total Assistance 5=Supervision or Setup 2=Maximal Assistance 6=Modified [place] 3=Moderate Assistance 7=Complete [place] Bed Mobility: 7 Transfers (B,C,W/C) (FIM): 7 Gait: 7 Locomotion: 7 very active PLOF PT Evaluation-Current Subjective Patient reports fatigue and 5/10 left hip pain. Patient does agree to PT. Pain Numeric Pain Scale: 5-Moderate Pain Location: Left Location Body Site: Hip Pain Description: Acute Pt/Family Goals return to home Objective Patient Orientation: Normal For Age Problem Solving: Fair ROM/Strength ROM Lower Extremities bilateral LE WFL (slightly limited left LE due to pain) Strenght Lower Extremities left LE NT right knee flexion/extension 4/5; hip flexion 4/5; ankle dorsi/plantarflexion 4/ 5 Integumentary/Posture Integumentary refer to nursing notes Bowel Incontinence: No Bladder Incontinence: No Posture WNL Neuromuscular (Tone, Coordination, Reflexes) grossly intact Sensory Vision: Wears Glasses Hearing: Functional Sensation Right Lower Extremit: Intact Sensation Left Lower Extremity: Intact Transfers Functional [place] Measure 0=Not Assessed/NA 4=Minimal Assistance 1=Total Assistance 5=Supervision or Setup 2=Maximal Assistance 6=Modified [place] 3=Moderate Assistance 7=Complete IndependenceIRFPAI Quality Coding Scale 6 Independent with activity with or without an assistive device 5 Patient requires set up or clean up by helper. Patient completes activity by themselves 4 Supervision or touching assist (CGA). [place] provide cues , steadying assist 3 The helper provides less than half the effort to complete the activity 2 The helper provides more than half the effort to complete the activity 1 Dependent. The helper does all the effort to complete an activity 7 Patient refused to complete or attempt activity 9 The patient did not perform the activity before the current illness or injury 88 Not attempted due to Medical conditions or safety concerns Transfers (B, C, W/C) (FIM): 4 Scootin Rollin Roll Left to Right (QC): 3 Supine to/from Sit: 5 Sit to/from Stand: 4 Sit to Lying (QC): 3 Lying to Sitting/Side of Bed(Q: 3 Sit to Stand (QC): 3 Chair/Jha-df-Urutf Xfer(QC): 3 Car Transfer (QC): 3 Gait Does the Patient Walk?: Yes Mode of Locomotion: Both Anticipated Mode of Locomotion: Both Gait (FIM): 1 Distance (FIM): 1=up to 49 ft Walk 10 feet (QC): 3 Walk 50 ft with 2 Turns(QC): 88 Walk 150 ft (QC): 88 Walking 10ft/uneven surface-QC: 88 Distance: 10' x 6 Gait Level of Assist: 4 Gait Persons Needed: 1 Gait Assistive Device: FWW Comments/Gait Description Patient is able to maintain NWB left LE short distances only at this time. Does require TTWB left LE for balance only at rest. Stairs Stairs (FIM): 1 #of Steps: 1 Level of Assist: 3 1 Step (curb) (QC): 2 4 Steps (QC): 88 Assistive Device: Walker 12 Steps (QC): 88 Balance Sitting Static: Normal Sitting Dynamic: Normal Standing Static: Fair Standing Dynamic: Fair Treatment NuStep x 15 min WL 2 to increase strength and cardiopulmonary function. NWB left LE maintained by placing foot on step out to side. Assessment/Needs 81 y.o. female, will benefit from skilled PT to address functional strength and mobility to improve current LOF and to safely return to home or care facility at maximum LOF. Patient is limited by NWB left LE status. Rehab Potential: Good PT Wedding Consultant Goals Skilled Nursing Goals PT Wedding Consultant Goals Time Frame: May 19, 2017 Transfers (B,C,W/C) (FIM): 6 Sit to Lying (QC): 5 Lying-Sitting on Side/Bed(QC): 5 Sit to Stand (QC): 5 Rollin Roll Left to Right (QC): 5 Chair/[id number]-[id number] Xfer(QC): 5 Car Transfer (QC): 5 Does the Patient Walk: Yes Gait (FIM): 1 Gait distance (FIM): 1=up to 49 ft (45') Distance: 45' Walk 10 feet (QC): 5 Walk 10ft-Uneven Surface(QC): 5 Walk 50ft with 2 Turns (QC): 88 Walk 150 ft (QC): 88 Gait Level of Assist: 6 Gait Assistive Device: FWW Stairs (FIM): 2 # of Steps: 4 1 Step (curb) (QC): 5 4 Steps (QC): 4 12 Steps (QC): 88 Stairs Level Of Assist: 5 Picking up an Object (QC): 5 PT Plan Problem List Problem List: Activity Tolerance, Gait Treatment/Plan Treatment Plan: Continue Plan of Care Treatment Plan: Bed Mobility, Education, Functional Activity Damien, Functional Strength, Group Therapy, Gait, Safety, Therapeutic Exercise, Transfers Treatment Duration: May 19, 2017 Frequency: At least 5-7 days/Wk (IRF) Estimated Hrs Per Day: 1.5 hours per day Patient and/or Family Agrees t: Yes Safety Risks/Education Patient Education: Reviewed Precautions Teaching Recipient: Patient Teaching Methods: Demonstration, Discussion Response to Teaching: Verbalize Understanding, Return Demonstration Discharge Recommendations Therapy D/C Recommendations: Home w/ Family Support, Physical Therapy Home Care , Intermediate (TCU/NH) Equpiment Recommendations-D/C: Front Wheeled Walker Time/GCodes Time In: 1120 Time Out: 1210 Total Billed Treatment Time: 50 Total Billed Treatment 1 visit EVModC 35 min EX 15 min NICKY VALADEZ PT Apr 25, 2017 12:52
[2017-04-25] MEDS ORDERED: DILT30TA PO (12:58)
--- NOTE | 2017-04-25 13:08 | PM&R Post Admission Assessment ---
Post Admission Physician Asses The preadmission screen agrees with the post admission assessment that the patient is a good candidate for inpatient rehabilitation. The patient will have a comprehensive program of inpatient rehabilitation with a goal of maximizing level of functional independence prior to discharge home with spouse. The patient will have PT/OT ninety minutes per day, each discipline, five days a week for gait, strengthening, conditioning, balance, ADLs, any patient/family/caregiver training as necessary. Speech therapy to do cognitive assessment and treat as indicated. Rehabilitation nursing to assist with bowel, bladder, skin, wound care, medication administration, pain management. Bakery Team Leader to assist with discharge planning, community reentry. SCD's for DVT prophylaxis. She appears to be well motivated to participate in three hours of therapy a day. She should be able to tolerate three hours of therapy a day from a medical and surgica standpoint. She should benefit from the three hours of therapy a day. She has a reasonable discharge plan, reasonable discharge rehabilitation goals and a supportive family. She has various comorbidities that need to be closely monitored with medications and treatments adjusted on a daily basis as needed. These include: UTI HTN GERD Hyponatremia OA osteoporosis Barriers to discharge for this patient who had been independent prior to this are for her to be modified independent to supervision for ADLs and mobility skills prior to discharge home with spouse and HHC, so as to lessen the burden of the caregivers. Risks for this patient include: 1. Fall 2. Fracture 3. DVT 4. Pulmonary embolism 5. Wound infection 6. Skin breakdown 7. Contractures 8. Poorly controlled pain 9. Urinary retention 10. UTI 11. Respiratory infection 12. Aspiration 13, Poorly controlled HTN 14. Worsening Hyponatremia Estimated Length of Stay: 14 days Prognosis: Rehab prognosis appears good for goal of discharge home with spouse and HHC modified independent to supervision for ADLs and mobility skills. KIYA PEREZ MD Apr 25, 2017 13:07
[2017-04-25] MEDS: DILTIAZEM 30 MG (CARDIZEM) TAB PO SCH ×3 (14:06→21:10)
--- NOTE | 2017-04-25 14:40 | Occupational Ther Daily Note ---
OT Current Status-Daily Note Subjective Pt sitting in chair, agrees to treatment. Mental Status/Objective Functional [place] Measure 0=Not Assessed/NA 4=Minimal Assistance 1=Total Assistance 5=Supervision or Setup 2=Maximal Assistance 6=Modified [place] 3=Moderate Assistance 7=Complete [place] ADL-Treatment Pt reports feeding self lunch prior to session. Pt states she is able to feed self, open containers, and cut food without assistance. Pt transferred to commode with minimal assistance using FWW. Pt able to complete toileting hygiene , requires minimal assistance for balance during clothing management. Pt able to maintain weight bearing status on left. Grooming tasks completed seated at sink. Pt able to wash hands and brush teeth after set up. Pt unable to doff/don shoes and socks at this time without adaptive equipment. Instruction provided regarding use of adaptive equipment for LE dressing. Pt doffed shoes and socks with SBA and verbal cues using dressing stick. Pt donned socks with minimal assistance using sock aid. Pt able to don shoes with minimal assistance using long shoe horn, but requires assist to tie shoes. Pt sitting in chair with needs met and RN present after session. Functional [place] Measure 0=Not Assessed/NA 4=Minimal Assistance 1=Total Assistance 5=Supervision or Setup 2=Maximal Assistance 6=Modified [place] 3=Moderate Assistance 7=Complete IndependenceIRFPAI Quality Coding Scale 6 Independent with activity with or without an assistive device 5 Patient requires set up or clean up by helper. Patient completes activity by themselves 4 Supervision or touching assist (CGA). [place] provide cues , steadying assist 3 The helper provides less than half the effort to complete the activity 2 The helper provides more than half the effort to complete the activity 1 Dependent. The helper does all the effort to complete an activity 7 Patient refused to complete or attempt activity 9 The patient did not perform the activity before the current illness or injury 88 Not attempted due to Medical conditions or safety concerns Eating (FIM): 6 Eating (QC): 6 Grooming (FIM): 5 Oral Hygiene (QC): 5 On/Off Footwear (QC): 1 Toileting Hygiene (QC): 4 Transfers (B, C, W/C) (FIM): 3 Toilet/Commode Transfer (FIM): 4 Toilet Transfer (QC): 3 Education OT Patient Education: Modified ADL techniques Teaching Recipient: Patient Teaching Methods: Demonstration, Discussion Response to Teaching: Return Demonstration OT Short Term Goals Short Term Goals Time Frame: May 02, 2017 Bathing(FIM): 4 Lower Body Dressing(FIM): 4 Toileting(FIM): 4 Toilet/Commode Transfer(FIM): 5 Shower Transfer(FIM): 4 Additional Short Term Goals: 1-Demonstrate ADL Tasks, 2-Verbalize Understanding , 3-ImproveStrength/Damien 1=Demonstrate adherence to instructed precautions during ADL tasks. 2=Patient will verbalize/demonstrate understanding of assistive devices/ modifications for ADL. 3=Patient will improve strength/tolerance for activity to enable patient to perform ADL's. OT Line Ordering Clinician Goals Care Home Goals Time Frame: May 16, 2017 Eating (FIM): 6 Eating (QC): 6 Groomin Oral Hygiene (QC): 6 Bathing(FIM): 5 Shower/Bathe Self (QC): 5 Upper Body Dressing(FIM): 5 Upper Body Dressing (QC): 5 Lower Body Dressing(FIM): 5 Lower Body Dressing (QC): 5 On/Off Footwear (QC): 5 Toileting(FIM): 6 Toilet/Commode Transfer(FIM): 6 Toilet/Commode Transfer (QC): 6 Shower Transfer(FIM): 5 Additional Goals: 1-Demonstrate ADL Tasks, 2-Verbalize Understanding, 3- ImproveStrength/Damien 1=Demonstrate adherence to instructed precautions during ADL tasks. 2=Patient will verbalize/demonstrate understanding of assistive devices/ modifications for ADL. 3=Patient will improve strength/tolerance for activity to enable patient to perform ADL's. OT Education/Plan Problem List/Assessment Pt to benefit from skilled OT intervention for ADL training, transfers, strengthening, adaptive equipment training, and home safety education to maximize level of function and allow safe return home. Discharge Recommendations Plan/Recommendations: Continue POC Treatment Plan/Plan of Care Patient would benefit from OT for education, treatment and training to promote independence in ADL's, mobility, safety and/or upper extremity function for ADL' s. Plan of Care: ADL Retraining, Functional Mobility, UE Funct Exercise/Act Treatment Duration: May 16, 2017 Frequency: At least 5-7 days/Wk (IRF) Estimated Hrs Per Day: 1.5 hours per day Agreement: Yes Rehab Potential: Good Time/GCodes Start Time: 13:30 Stop Time: 14:15 Total Time Billed (hr/min): 45 Billed Treatment Time 1 visit, ADLx3(45minutes) BERNARDO DAVIS OT Apr 25, 2017 14:40
--- NOTE | 2017-04-25 15:00 | Physical Therapy Daily Note ---
PT Daily Note-Current Subjective Patient just completed with OT. Agrees to PT. Has increase c/o left hip pain /10 this p.m. Pain Numeric Pain Scale: 6 Location: Left Location Body Site: Hip Pain Description: Acute Mental Status Patient Orientation: Normal For Age Transfers Functional [place] Measure 0=Not Assessed/NA 4=Minimal Assistance 1=Total Assistance 5=Supervision or Setup 2=Maximal Assistance 6=Modified [place] 3=Moderate Assistance 7=Complete IndependenceIRFPAI Quality Coding Scale 6 Independent with activity with or without an assistive device 5 Patient requires set up or clean up by helper. Patient completes activity by themselves 4 Supervision or touching assist (CGA). [place] provide cues , steadying assist 3 The helper provides less than half the effort to complete the activity 2 The helper provides more than half the effort to complete the activity 1 Dependent. The helper does all the effort to complete an activity 7 Patient refused to complete or attempt activity 9 The patient did not perform the activity before the current illness or injury 88 Not attempted due to Medical conditions or safety concerns Transfers (B, C, W/C) (FIM): 4 Scootin Rollin Roll Left to Right (QC): 4 Supine to/from Sit: 5 Sit to/from Stand: 4 Sit to Lying (QC): 4 Sit to Stand (QC): 3 Chair/Cxv-yr-Rimga Xfer(QC): 3 Bed to/from Chair: 4 Car Transfer (QC): 3 Weight Bearing Weight Bearing Restriction: Non Weight Bearing Location Restriction: L LE Gait Training Does the Patient Walk?: Yes Gait (FIM): 1 Distance (FIM): 1=up to 49 ft Distance: 10' x 8 Walk 10 feet (QC): 3 Gait Level of Assist: 4 Gait Persons Needed: 1 Gait Assistive Device: FWW functional with NWB left LE Exercises Standin way Ex=Flex, Abd, Ext (left LE only), Mini squats (right LE only) Assessment Patient fatigues with gait and exercises. Patient did tolerate treatment due to high activity level PLOF. PT to increase exercise program and gait training as tolerated by patient. PT Nutrition Consultant Goals Skilled Nursing Goals PT Skilled Nursing Goals Time Frame: May 19, 2017 Transfers (B,C,W/C) (FIM): 6 Sit to Lying (QC): 5 Lying-Sitting on Side/Bed(QC): 5 Sit to Stand (QC): 5 Rollin Roll Left to Right (QC): 5 Chair/Uzs-nh-Tedhn Xfer(QC): 5 Car Transfer (QC): 5 Does the Patient Walk: Yes Gait (FIM): 1 Gait distance (FIM): 1=up to 49 ft (45') Distance: 45' Walk 10 feet (QC): 5 Walk 10ft-Uneven Surface(QC): 5 Walk 50ft with 2 Turns (QC): 88 Walk 150 ft (QC): 88 Gait Level of Assist: 6 Gait Assistive Device: FWW Stairs (FIM): 2 # of Steps: 4 1 Step (curb) (QC): 5 4 Steps (QC): 4 12 Steps (QC): 88 Stairs Level Of Assist: 5 Picking up an Object (QC): 5 PT Plan Treatment/Plan Treatment Plan: Continue Plan of Care Treatment Plan: Bed Mobility, Education, Functional Activity Damien, Functional Strength, Group Therapy, Gait, Safety, Therapeutic Exercise, Transfers Treatment Duration: May 19, 2017 Frequency: At least 5-7 days/Wk (IRF) Estimated Hrs Per Day: 1.5 hours per day Patient and/or Family Agrees t: Yes Time/GCodes Time In: 1415 Time Out: 1455 Total Billed Treatment Time: 40 Total Billed Treatment 1 visit GT x 2 25 min EX 15 min NICKY VALADEZ PT Apr 25, 2017 15:00
[2017-04-25 18:07] VITALS: BP 166/63
[2017-04-25] MEDS ORDERED: SIMvastatin 20 MG (ZOCOR) TAB PO SCH (21:00)
[2017-04-25] MEDS: DOCUSATE SODIUM 100 MG (COLACE) CAP PO SCH (21:09)
[2017-04-25] MEDS: FAMOTIDINE 20 MG (PEPCID) TABLET PO SCH (21:09)
[2017-04-25] MEDS: ATORVASTATIN 10 MG (LIPITOR) TABLET PO SCH (21:09)
[2017-04-25] MEDS: ENOXAPARIN 30 MG/0.3 ML (LOVENOX) SYR SC SCH (21:09)
[2017-04-26] MEDS: ACETAMINOPHEN 500 MG TAB (TYLENOL) PO PRN (03:56)
[2017-04-26 05:36] VITALS: BP 166/63
--- NOTE | 2017-04-26 07:51 | HISTORY AND PHYSICAL ---
DATE OF ADMISSION: 04/25/2017 CHIEF COMPLAINT: Difficulty with walking. HISTORY OF PRESENT ILLNESS: The patient is an 80-year-old female who had been independent prior to a fall at home with a resulting left subcapital hip fracture. The patient underwent percutaneous pinning with orthopedics, made [id number], left lower extremity after she was admitted to [facility] on 04/21/[address] to the service of Dr. Bradshaw by Dr. Holt, who was covering for her. The patient was found to have a UTI. This was treated with IV antibiotics, now switched over to p.o. Levaquin. Blood pressure medications were continued. She was found to have hyponatremia. This was treated monitored. She is now referred to Inpatient Rehabilitation Unit for comprehensive orthopedic rehabilitation Currently she is mod assist for transfers. Mod assist for ambulation short distances with a front wheel walker. She is able to maintain her nonweightbearing status left lower extremity for short distances. She is mod assist for bathing. Set up for upper body dressing. Max assist for lower body dressing, set up for eating and grooming. Prior level of function.She had been Independent prior to this injury PAST MEDICAL HISTORY: Hypertension. PAST SURGICAL HISTORY: 1. Breast biopsy. 2. Cataract extraction. 3. Hysterectomy. ALLERGIES: 1. Bacitracin. 2. Lidocaine. 3. Neomycin. FAMILY HISTORY: Hypertension, MD, breast cancer. SOCIAL HISTORY: , lives with her spouse in [place], [place]. PCP: Dr. Bradshaw. REVIEW OF SYSTEMS: Ten-point review of systems significant for hip pain. MEDICATIONS: 1. Levaquin 500 mg p.o. daily for 5 more days. 2. Celexa 10 mg p.o. daily. 3. Triamterene hydrochlorothiazide 37.5/25, 1 p.o. daily. 4. Colace 100 mg p.o. b.i.d. 5. Pepcid 40 mg p.o. at bedtime. 6. Lipitor 10 mg p.o. at bedtime. 7. Lovenox 30 mg subcutaneous every evening. 8. Diltiazem 30 mg p.o. q.i.d. 9. Tylenol 500 mg p.o. q.6 hours p.r.n. mild pain. 10. Lortab 7.5, 1 tablet p.o. q.6 hours p.r.n. moderate pain. PHYSICAL EXAMINATION: Significant for a pleasant female, appearing her stated age, somewhat thin, alert and oriented sitting in a chair in no acute distress. VITAL SIGNS: She is afebrile. Pulse is 72, respirations 18, blood pressure 152/75, O2 sat 95% on room air. HEENT: Vision, speech, hearing, grossly intact. No oral lesion is noted. NECK: Supple without mass. HEART: Regular rhythm. LUNGS: Clear. ABDOMEN: Soft, nontender. Bowel sounds present. EXTREMITIES: Trace edema, left ankle. No calf tenderness. MUSCULOSKELETAL: The patient has functional active range of motion in both upper extremities and right lower extremity. NEUROLOGIC: Strength is 4/5 both upper limbs and right lower limb. Left lower limb active range of motion at the knee and ankle. Left hip not tested due to recent fracture and repair. Cognition appears grossly intact. IMPRESSION: 1. Ambulatory dysfunction secondary to fall with resulting in subcapital neck fracture left hip, status post percutaneous pinning, orthopedics. Nonweightbearing left lower extremity. 2. Hypertension, controlled with medication. 3. Hyponatremia being monitored. 4. UTI, under treatment. 5. Osteoarthritis. 6. GERD, on medications. PLAN: The patient will comprehensive program of inpatient rehabilitation with a goal of maximizing level of functional independence prior to discharge home with spouse. The patient will have PT/OT 90 minutes per day, each discipline, 5 days week for 2 weeks for gait, strengthening, conditioning, ADLs, any patient/family/caregiver training necessary, any adaptive equipment and training necessary. Speech therapy do cognitive assessment and treat as indicated. Rehabilitation nursing assist with bowel, bladder, skin care, medication administration, pain management, wound care. financial services counselor to assist with discharge planning, community reentry. Continue current medications. Follow-up with Dr. Bradshaw and orthopedics as per their schedules. ESTIMATED LENGTH OF STAY: Two weeks. PROGNOSIS: Rehab prognosis appears good for goal of discharging home with spouse, modified independent to supervision for ADLs and mobility skills. Due to her nonweightbearing status, left lower extremity may need to focus on wheelchair level of function at this time until her weight-bearing status is advanced at a later time by orthopedics on an outpatient basis. DIET: Regular. CODE STATUS: Full code. Therapy with cardiac and fall precautions. Job ID: [id number] Dictated Date: 04/25/2017 13:20:35 [employer] Security Consultant Date: 04/26/2017 07:41:05/yamilka MARINELLI
--- NOTE | 2017-04-26 08:35 | ST Cognitive Linguistic Eval ---
Speech Evaluation-General Medical Diagnosis Left Femoral Neck Fracture Onset Date: Apr 21, 2017 Therapy Diagnosis Therapy Diagnosis: Cognitive Linguistic Skills WNL Precautions Precautions/Isolations: Fall Prevention, Standard Precautions Referral Referring Physician: Dr. Mark Pinzon Reason for Referral: Evaluation/Treatment Cognitive Evaluation Medical History Pertinent Medical History: Arthritis, GERD, HTN, OA Reviewed History: Yes Social History Current Living Status: Spouse Speech PLF-Current Status Prior Level of Function The patient denied recent challenges with cognition, speech, or language. Subjective The patient was recently admitted to [facility] with a left hip fracture (s/p pinning). The patient greeted the clinician appropriately and was agreeable to participation in the cognitive evaluation on this date. Language Eval: Auditory Comprehends Simple Yes/No Ques: Functional Indent/Objects Multiple Dias: Functional Ident/Pics in Multiple Dias: Functional Follows 1-Step Commands: Functional Follows Complex Directions: Functional Follows General Conversations: Functional Language Eval: Verbal Language Completes Spontaneous Greeting: Functional Produces Auto, Serial Info: Functional Imitates Simple Words/Phrases: Functional Word Finding: Functional Requests Basic Needs: Functional States Basic Personal Info: Functional Expresses Complex Ideas: Functional Cognitive Patient Orientation The patient was oriented to month, day of week, date, and year (independently). Objective Cognitive Domain Attention: WNL Memory: WNL Problem Solving: Functional Objective Impression The patient demonstrated cognitive linguistic skills grossly within normal limits and adequate for completion of ADL's. Communication/Social Cognition Comprehension: 6 (Glasses) Expression: 6 Social Interaction: 6 Problem Solvin Memory: 6 Speech Patient Assess Expression of Ideas/Wants: Expression (4) Understanding [place] Content: Understands (4) Brief Interview-Mental Status: Yes Repetition of Three Words: Three (3) Temporal Orientation: Year: Correct (3) Temporal Orientation: Month: Accurate within 5 days(2) Temporal Orientation: Day: Correct (1) Recall : Wear to say "Sock": Yes, no cue required (2) Recall : Color: Yes, no cue required (2) Recall : Bed: Yes, no cue required (2) Speech-Plan Treatment Plan Speech Therapy Treatment Plan: Discontinue ST Evaluation, only. Frequency: Modified Program (IRF) Estimated Hrs Per Day: .25 hour per day Rehab Potential: Good Safety Risks/Education Teaching Recipient: Patient Teaching Methods: Discussion Response to Teaching: Verbalize Understanding Education Topics Provided: Plan of Care, Results, Recommendations Time Speech Therapy Time In: 08:13 Speech Therapy Time Out: 08:28 Total Billed Time: 15 Billed Treatment Time 1, ALBERTO JOHNSTON Apr 26, 2017 08:35
[2017-04-26] MEDS ORDERED: HYDROCHLOROTHIAZIDE 25 MG (HCTZ) TAB PO SCH (09:00)
[2017-04-26 09:45] VITALS: BP 168/69
[2017-04-26] MEDS: TRIAMTERENE/HCTZ 75-50 (MAXZIDE,DYAZIDE) TABLET PO SCH (09:50)
[2017-04-26] MEDS: DILTIAZEM 30 MG (CARDIZEM) TAB PO SCH ×4 (09:50→20:31)
[2017-04-26] MEDS: DOCUSATE SODIUM 100 MG (COLACE) CAP PO SCH ×2 (09:50→20:31)
[2017-04-26] MEDS: HYDROcodone/APAP 7.5 MG/325 MG (LORTAB, LORCET PLUS) TABLET PO PRN ×2 (10:05→21:28)
[2017-04-26] MEDS: LEVOFLOXACIN 500 MG TAB (LEVAQUIN) PO SCH (10:05)
--- NOTE | 2017-04-26 10:58 | Physical Therapy Daily Note ---
PT Daily Note-Current Subjective Pt sitting in recliner. Pt agrees to PT. Pain Numeric Pain Scale: 4 Location: Left Location Body Site: Knee Pain Description: Ache Mental Status Patient Orientation: Person, Place, Situation Transfers Functional [place] Measure 0=Not Assessed/NA 4=Minimal Assistance 1=Total Assistance 5=Supervision or Setup 2=Maximal Assistance 6=Modified [place] 3=Moderate Assistance 7=Complete IndependenceIRFPAI Quality Coding Scale 6 Independent with activity with or without an assistive device 5 Patient requires set up or clean up by helper. Patient completes activity by themselves 4 Supervision or touching assist ([facility]). [place] provide cues , steadying assist 3 The helper provides less than half the effort to complete the activity 2 The helper provides more than half the effort to complete the activity 1 Dependent. The helper does all the effort to complete an activity 7 Patient refused to complete or attempt activity 9 The patient did not perform the activity before the current illness or injury 88 Not attempted due to Medical conditions or safety concerns Scootin Sit to/from Stand: 5 Sit to Stand (QC): 5 Weight Bearing Weight Bearing Restriction: Full Weight Bearing Location Restriction: LE Bilateral Gait Training Does the Patient Walk?: Yes Distance (FIM): 3=150 ft Distance: 150' Walk 10 feet (QC): 4 Walk 50 ft with 2 Turns(QC): 4 Walk 150 ft (QC): 4 Gait Level of Assist: 4 Gait Persons Needed: 1 Gait Assistive Device: FWW Pt has hop to gait pattern, keeps WB status. Pt fatigues easy and needs short rest break during ambulations. Wheelchair Training Does the Pt Use a Wheelchair?: No Exercises Standing: Hip Abduction, Hamstring curls, Mini squats Standing Reps: 15 Abd & Extension as well as Bicep curls done with LLE while Mini Squats done with RLE NuStep Minutes: 10 NuStep Workload: 2 Treatments Pt transfers using FWW at [facility]. Pt ambulates at [facility]. Pt uses NuStep for 10m at Workload 2 then completes Standing Ex at //bars. Pt takes a couple of rest breaks during tx. PT ambulates back to room to rest in recliner at end of tx with all needs met. Assessment Current Status: Good Progress Pt continues to keep WB status during all transfers and ambulation. Pt is improving with activity tolerance and strengthening. PT Projection Camera Operator Goals Detention Goals PT Detention Goals Time Frame: May 19, 2017 Transfers (B,C,W/C) (FIM): 6 Sit to Lying (QC): 5 Lying-Sitting on Side/Bed(QC): 5 Sit to Stand (QC): 5 Rollin Roll Left to Right (QC): 5 Chair/Pux-ye-Pxsfa Xfer(QC): 5 Car Transfer (QC): 5 Does the Patient Walk: Yes Gait (FIM): 1 Gait distance (FIM): 1=up to 49 ft (45') Distance: 45' Walk 10 feet (QC): 5 Walk 10ft-Uneven Surface(QC): 5 Walk 50ft with 2 Turns (QC): 88 Walk 150 ft (QC): 88 Gait Level of Assist: 6 Gait Assistive Device: FWW Stairs (FIM): 2 # of Steps: 4 1 Step (curb) (QC): 5 4 Steps (QC): 4 12 Steps (QC): 88 Stairs Level Of Assist: 5 Picking up an Object (QC): 5 PT Plan Problem List Problem List: Activity Tolerance, Functional Strength, Safety, Balance, Gait Treatment/Plan Treatment Plan: Continue Plan of Care Treatment Plan: Bed Mobility, Education, Functional Activity Damien, Functional Strength, Group Therapy, Gait, Safety, Therapeutic Exercise, Transfers Treatment Duration: May 19, 2017 Frequency: At least 5-7 days/Wk (IRF) Estimated Hrs Per Day: 1.5 hours per day Patient and/or Family Agrees t: Yes Safety Risks/Education Patient Education: Gait Training, Transfer Techniques, Correct Positioning, Safety Issues Teaching Recipient: Patient Teaching Methods: Discussion Response to Teaching: Verbalize Understanding Time/GCodes Time In: 1015 Time Out: 1100 Total Billed Treatment Time: 45 Total Billed Treatment visit, GT (15m) & EX x2 (30m) MIKI HALLMAN MINE BOSS Apr 26, 2017 10:58
--- NOTE | 2017-04-26 11:56 | Occupational Ther Daily Note ---
OT Current Status-Daily Note Subjective Pt in bed, agrees to treatment. Pt reports 3/10 pain in left LE Mental Status/Objective Functional [place] Measure 0=Not Assessed/NA 4=Minimal Assistance 1=Total Assistance 5=Supervision or Setup 2=Maximal Assistance 6=Modified [place] 3=Moderate Assistance 7=Complete [place] ADL-Treatment Pt supine to sit with supervision. Transfer to [facility] with CGA using FWW, able to maintain NWB left LE. Pt completes toileting hygiene, requires min assist for balance during clothing management. Transfer to walk in shower with CGA and cues for safety. Upper body bathing completed with setup. Pt able to wash kirsten area and bilateral upper legs. Assist required to wash lower legs and buttocks. Don bra and pullover shirt with set up. Assist required to don KONRAD hose. Pt instructed in use of adaptive equipment for LE dressing. Pt used vegetable buncher to start underwear and pants over feet; minimal assistance required for this portion of task. Stood with minimal assistance for pant hike using FWW for balance. Pt donned shoes with assist using long shoe horn. Assist to tie shoes. Grooming completed while seated. Pt brushed teeth with set up. Pt sitting in chair with needs met after session. Functional [place] Measure 0=Not Assessed/NA 4=Minimal Assistance 1=Total Assistance 5=Supervision or Setup 2=Maximal Assistance 6=Modified [place] 3=Moderate Assistance 7=Complete IndependenceIRFPAI Quality Coding Scale 6 Independent with activity with or without an assistive device 5 Patient requires set up or clean up by helper. Patient completes activity by themselves 4 Supervision or touching assist (CGA). [place] provide cues , steadying assist 3 The helper provides less than half the effort to complete the activity 2 The helper provides more than half the effort to complete the activity 1 Dependent. The helper does all the effort to complete an activity 7 Patient refused to complete or attempt activity 9 The patient did not perform the activity before the current illness or injury 88 Not attempted due to Medical conditions or safety concerns Grooming (FIM): 5 Oral Hygiene (QC): 5 Bathing (FIM): 3 Shower/Bathe Self (QC): 3 Upper Body (FIM): 5 Upper Body Dressing (QC): 5 Lower Body Dressing (FIM): 3 On/Off Footwear (QC): 3 Toileting (FIM): 4 Toileting Hygiene (QC): 3 Toilet/Commode Transfer (FIM): 4 Shower Transfer(FIM): 4 OT Short Term Goals Short Term Goals Time Frame: May 02, 2017 Bathing(FIM): 4 Lower Body Dressing(FIM): 4 Toileting(FIM): 4 Toilet/Commode Transfer(FIM): 5 Shower Transfer(FIM): 4 Additional Short Term Goals: 1-Demonstrate ADL Tasks, 2-Verbalize Understanding , 3-ImproveStrength/Damien 1=Demonstrate adherence to instructed precautions during ADL tasks. 2=Patient will verbalize/demonstrate understanding of assistive devices/ modifications for ADL. 3=Patient will improve strength/tolerance for activity to enable patient to perform ADL's. OT Correction Goals Correction Goals Time Frame: May 16, 2017 Eating (FIM): 6 Eating (QC): 6 Groomin Oral Hygiene (QC): 6 Bathing(FIM): 5 Shower/Bathe Self (QC): 5 Upper Body Dressing(FIM): 5 Upper Body Dressing (QC): 5 Lower Body Dressing(FIM): 5 Lower Body Dressing (QC): 5 On/Off Footwear (QC): 5 Toileting(FIM): 6 Toilet/Commode Transfer(FIM): 6 Toilet/Commode Transfer (QC): 6 Shower Transfer(FIM): 5 Additional Goals: 1-Demonstrate ADL Tasks, 2-Verbalize Understanding, 3- ImproveStrength/Damien 1=Demonstrate adherence to instructed precautions during ADL tasks. 2=Patient will verbalize/demonstrate understanding of assistive devices/ modifications for ADL. 3=Patient will improve strength/tolerance for activity to enable patient to perform ADL's. OT Education/Plan Problem List/Assessment Pt to benefit from skilled OT intervention for ADL training, transfers, strengthening, adaptive equipment training, and home safety education to maximize level of function and allow safe return home. Discharge Recommendations Plan/Recommendations: Continue POC Treatment Plan/Plan of Care Patient would benefit from OT for education, treatment and training to promote independence in ADL's, mobility, safety and/or upper extremity function for ADL' s. Plan of Care: ADL Retraining, Functional Mobility, UE Funct Exercise/Act Treatment Duration: May 16, 2017 Frequency: At least 5-7 days/Wk (IRF) Estimated Hrs Per Day: 1.5 hours per day Agreement: Yes Rehab Potential: Good Time/GCodes Start Time: 09:10 Stop Time: 10:10 Total Time Billed (hr/min): 60 Billed Treatment Time 1 visit, ADLx4(60minutes) BERNARDO DAVIS OT Apr 26, 2017 11:56
--- NOTE | 2017-04-26 14:29 | Occupational Ther Daily Note ---
OT Current Status-Daily Note Subjective Pt sitting in chair, agrees to treatment. Mental Status/Objective Functional [place] Measure 0=Not Assessed/NA 4=Minimal Assistance 1=Total Assistance 5=Supervision or Setup 2=Maximal Assistance 6=Modified [place] 3=Moderate Assistance 7=Complete [place] ADL-Treatment Functional [place] Measure 0=Not Assessed/NA 4=Minimal Assistance 1=Total Assistance 5=Supervision or Setup 2=Maximal Assistance 6=Modified [place] 3=Moderate Assistance 7=Complete IndependenceIRFPAI Quality Coding Scale 6 Independent with activity with or without an assistive device 5 Patient requires set up or clean up by helper. Patient completes activity by themselves 4 Supervision or touching assist (CGA). [place] provide cues , steadying assist 3 The helper provides less than half the effort to complete the activity 2 The helper provides more than half the effort to complete the activity 1 Dependent. The helper does all the effort to complete an activity 7 Patient refused to complete or attempt activity 9 The patient did not perform the activity before the current illness or injury 88 Not attempted due to Medical conditions or safety concerns Other Treatment Sit to stand and transfer to w/c with CGA using FWW, able to maintain NWB left LE. To therapy gym via w/c. Pt performed bilateral UE exercises to increase strength needed for ADLs and transfers. Pt performed shoulder flexion, abduction , biceps curls, and triceps extension exercises x15 reps with red theraband. Rest breaks between exercises. Occasional cues for proper exercise technique. Arm bike [id number] to increase overall strength and activity tolerance. Pt completed task with minimal resistance and slow pace. No rest breaks needed. Pt returned to room, sitting in chair with needs met after session. OT Short Term Goals Short Term Goals Time Frame: May 02, 2017 Bathing(FIM): 4 Lower Body Dressing(FIM): 4 Toileting(FIM): 4 Toilet/Commode Transfer(FIM): 5 Shower Transfer(FIM): 4 Additional Short Term Goals: 1-Demonstrate ADL Tasks, 2-Verbalize Understanding , 3-ImproveStrength/Damien 1=Demonstrate adherence to instructed precautions during ADL tasks. 2=Patient will verbalize/demonstrate understanding of assistive devices/ modifications for ADL. 3=Patient will improve strength/tolerance for activity to enable patient to perform ADL's. OT Skilled Nursing Goals Energy Broker Goals Time Frame: May 16, 2017 Eating (FIM): 6 Eating (QC): 6 Groomin Oral Hygiene (QC): 6 Bathing(FIM): 5 Shower/Bathe Self (QC): 5 Upper Body Dressing(FIM): 5 Upper Body Dressing (QC): 5 Lower Body Dressing(FIM): 5 Lower Body Dressing (QC): 5 On/Off Footwear (QC): 5 Toileting(FIM): 6 Toilet/Commode Transfer(FIM): 6 Toilet/Commode Transfer (QC): 6 Shower Transfer(FIM): 5 Additional Goals: 1-Demonstrate ADL Tasks, 2-Verbalize Understanding, 3- ImproveStrength/Damien 1=Demonstrate adherence to instructed precautions during ADL tasks. 2=Patient will verbalize/demonstrate understanding of assistive devices/ modifications for ADL. 3=Patient will improve strength/tolerance for activity to enable patient to perform ADL's. OT Education/Plan Problem List/Assessment Pt to benefit from skilled OT intervention for ADL training, transfers, strengthening, adaptive equipment training, and home safety education to maximize level of function and allow safe return home. Discharge Recommendations Plan/Recommendations: Continue POC Treatment Plan/Plan of Care Patient would benefit from OT for education, treatment and training to promote independence in ADL's, mobility, safety and/or upper extremity function for ADL' s. Plan of Care: ADL Retraining, Functional Mobility, UE Funct Exercise/Act Treatment Duration: May 16, 2017 Frequency: At least 5-7 days/Wk (IRF) Estimated Hrs Per Day: 1.5 hours per day Agreement: Yes Rehab Potential: Good Time/GCodes Start Time: 13:30 Stop Time: 14:00 Total Time Billed (hr/min): 30 Billed Treatment Time 1 visit, EXx2(30minutes) BERNARDO DAVIS OT Apr 26, 2017 14:29
[2017-04-26 15:00] VITALS: BP 157/62
--- NOTE | 2017-04-26 15:39 | Physical Therapy Daily Note ---
PT Daily Note-Current Subjective Pt sitting in recliner upon arrival. Pt agrees to PT. Pain Numeric Pain Scale: 3 Location: Left Location Body Site: Thigh Pain Description: Ache Mental Status Patient Orientation: Person, Place, Situation Transfers Functional [place] Measure 0=Not Assessed/NA 4=Minimal Assistance 1=Total Assistance 5=Supervision or Setup 2=Maximal Assistance 6=Modified [place] 3=Moderate Assistance 7=Complete IndependenceIRFPAI Quality Coding Scale 6 Independent with activity with or without an assistive device 5 Patient requires set up or clean up by helper. Patient completes activity by themselves 4 Supervision or touching assist (CGA). [place] provide cues , steadying assist 3 The helper provides less than half the effort to complete the activity 2 The helper provides more than half the effort to complete the activity 1 Dependent. The helper does all the effort to complete an activity 7 Patient refused to complete or attempt activity 9 The patient did not perform the activity before the current illness or injury 88 Not attempted due to Medical conditions or safety concerns Scootin Rollin Roll Left to Right (QC): 5 Supine to/from Sit: 5 Sit to/from Stand: 5 Sit to Lying (QC): 5 Sit to Stand (QC): 5 Chair/Ect-hx-Pgbhn Xfer(QC): 4 Bed to/from Chair: 4 Weight Bearing Weight Bearing Restriction: Full Weight Bearing Location Restriction: LE Bilateral Gait Training Does the Patient Walk?: Yes Distance (FIM): 8=813-75 ft Distance: 75' Walk 10 feet (QC): 4 Walk 50 ft with 2 Turns(QC): 4 Gait Level of Assist: 4 Gait Persons Needed: 1 Gait Assistive Device: FWW Pt fatigues and needs rest break to recover. Pt continues to keep WB status. Wheelchair Training Does the Pt Use a Wheelchair?: Yes Wheelchair Distance: 2=207-43 ft Distance: 75' Wheelchair Level of Assist: 4 Wheel 50 ft with 2 turns (QC): 4 Type of Wheelchair: Manual Pt needed WCH to return back to room due to too fatigued to ambulate. Exercises Standing: Hip Abduction, Hamstring curls, Mini squats Standing Reps: 15 Treatments Pt transferred to standing using FWW at [facility]. Pt ambulated using FWW at [facility]. Pt completed Standing Ex at //bars. Pt propelled WCH back to room then transferred to Supine in bed to rest. Pt rests with all needs met at end of tx. Assessment Current Status: Fair Progress Pt continues to work hard although fatigues easy. PT Concrete Saw Operator Goals Mcfp Goals PT Concrete Saw Operator Goals Time Frame: May 19, 2017 Transfers (B,C,W/C) (FIM): 6 Sit to Lying (QC): 5 Lying-Sitting on Side/Bed(QC): 5 Sit to Stand (QC): 5 Rollin Roll Left to Right (QC): 5 Chair/Dsm-dt-Npzfi Xfer(QC): 5 Car Transfer (QC): 5 Does the Patient Walk: Yes Gait (FIM): 1 Gait distance (FIM): 1=up to 49 ft (45') Distance: 45' Walk 10 feet (QC): 5 Walk 10ft-Uneven Surface(QC): 5 Walk 50ft with 2 Turns (QC): 88 Walk 150 ft (QC): 88 Gait Level of Assist: 6 Gait Assistive Device: FWW Stairs (FIM): 2 # of Steps: 4 1 Step (curb) (QC): 5 4 Steps (QC): 4 12 Steps (QC): 88 Stairs Level Of Assist: 5 Picking up an Object (QC): 5 PT Plan Problem List Problem List: Activity Tolerance, Functional Strength, Safety, Balance, Gait Treatment/Plan Treatment Plan: Continue Plan of Care Treatment Plan: Bed Mobility, Education, Functional Activity Damien, Functional Strength, Group Therapy, Gait, Safety, Therapeutic Exercise, Transfers Treatment Duration: May 19, 2017 Frequency: At least 5-7 days/Wk (IRF) Estimated Hrs Per Day: 1.5 hours per day Patient and/or Family Agrees t: Yes Safety Risks/Education Patient Education: Gait Training, Transfer Techniques, Correct Positioning, Safety Issues Teaching Recipient: Patient Teaching Methods: Discussion Response to Teaching: Verbalize Understanding Time/GCodes Time In: 1400 Time Out: 1430 Total Billed Treatment Time: 30 Total Billed Treatment visit, GT (15m) & EX (15m) MIKI HALLMAN PTA Apr 26, 2017 15:39
[2017-04-26 18:17] VITALS: BP 148/68
[2017-04-26] MEDS: ENOXAPARIN 30 MG/0.3 ML (LOVENOX) SYR SC SCH (20:31)
[2017-04-26] MEDS: FAMOTIDINE 20 MG (PEPCID) TABLET PO SCH (20:31)
[2017-04-26] MEDS: ATORVASTATIN 10 MG (LIPITOR) TABLET PO SCH (20:31)
--- NOTE | 2017-04-26 21:23 | PM & R (SOAP) Progress Note ---
Subjective Time Seen by Provider: 21:05 Subjective/Events-last exam Patient was seen in her room this evening Adjusting well to unit Patient min assist for transfers Review of Systems Musculoskeletal: leg pain Objective Exam Last Set of Vital Signs Vital Signs Date Time Temp Pulse Resp B/P (MAP) Pulse Ox O2 Delivery O2 Flow Rate FiO2 04/26/17 18:17 96.8 69 18 148/68 98 Room Air Capillary Refill : Less Than 3 Seconds I&O Bad tableGeneral: Alert, Oriented X3, Cooperative, No Acute Distress HEENT: Atraumatic, PERRLA, EOMI, Mucous Memb Moist/[place] Neck: Supple, No JVD Lungs: Clear to Auscultation Heart: Regular Rate Abdomen: Normal Bowel Sounds, Soft, No Tenderness Extremities: Other (trace edema left ankle) Neuro: Other (weakness proximal left leg) Assessment/Plan Assessment s/p frx left hip s/p perc pinning NWB LLE HTN controlled Hyponatremia Plan Continue PT/OT Team Conference held earlier today See report for full functional update and POC Reconference next week KIYA PEREZ MD Apr 26, 2017 21:23
[2017-04-27 05:14] VITALS: BP 133/66
--- NOTE | 2017-04-27 07:51 | PM & R (SOAP) Progress Note ---
Subjective Time Seen by Provider: 07:45 Subjective/Events-last exam Patient was seen in her room this AM Eating and sleeping well Pain control adequate Patient min assist for transfers Review of Systems Musculoskeletal: leg pain Objective Exam Last Set of Vital Signs Vital Signs Date Time Temp Pulse Resp B/P (MAP) Pulse Ox O2 Delivery O2 Flow Rate FiO2 04/27/17 05:14 97.9 62 18 133/66 97 Room Air Capillary Refill : Less Than 3 Seconds I&O Intake and Output 04/27/17 00:00 Intake Total 1485 ml Balance 1485 ml Intake Oral 1485 ml # Voids 8 # Bowel Movements 4 General: Alert, Oriented X3, Cooperative, No Acute Distress HEENT: Atraumatic, PERRLA, EOMI, Mucous Memb Moist/[place] Neck: Supple, No JVD Lungs: Clear to Auscultation Heart: Regular Rate Abdomen: Normal Bowel Sounds, Soft, No Tenderness Extremities: Other (trace edema left ankle) Neuro: Other (weakness proximal left leg) Assessment/Plan Assessment s/p frx left hip s/p perc pinning NWB LLE HTN controlled Hyponatremia Plan Continue PT/OT Team Conference held yesterday See report for full functional update and POC Reconference next week Recheck labs KIYA PEREZ MD Apr 27, 2017 07:51
[2017-04-27] MEDS: DOCUSATE SODIUM 100 MG (COLACE) CAP PO SCH ×2 (07:52→20:30)
[2017-04-27] MEDS: TRIAMTERENE/HCTZ 75-50 (MAXZIDE,DYAZIDE) TABLET PO SCH (07:52)
[2017-04-27] MEDS: DILTIAZEM 30 MG (CARDIZEM) TAB PO SCH ×4 (07:52→20:30)
--- NOTE | 2017-04-27 09:44 | Occupational Ther Daily Note ---
OT Current Status-Daily Note Subjective Pt alert, sitting in room. Pt agreed to therapy. No c/o pain at this time. Mental Status/Objective Patient Orientation: Person, Place, Time, Situation Functional [place] Measure 0=Not Assessed/NA 4=Minimal Assistance 1=Total Assistance 5=Supervision or Setup 2=Maximal Assistance 6=Modified [place] 3=Moderate Assistance 7=Complete [place] ADL-Treatment Pt agreed to sponge bath, declined shower. Pt was set up for sponge bath, able to bathe upper body by self. Assist to stand for balance while cleansing kirsten area/buttocks. Pt declined to doff compression stockings and bathe LE's. After set up, pt able to don/doff upper body clothing by self. Pt required verbal cues to use AE donning/doffing pants and doffing socks. Elastic shoelaces placed in shoes. Pt instructed on donning shoes with elastic laces and required mod A. Pt then ambulated to bathroom with min A using FWW and keeping wt bearing status. Pt transferred on and off toilet using FWW and grabbars with CGA. Min A for toileting when standing as pt hiked pants over hips. Pt then sat at sink to complete grooming by self. After therapy, pt sitting in recliner with call light/phone in reach. All needs met in room. Functional [place] Measure 0=Not Assessed/NA 4=Minimal Assistance 1=Total Assistance 5=Supervision or Setup 2=Maximal Assistance 6=Modified [place] 3=Moderate Assistance 7=Complete IndependenceIRFPAI Quality Coding Scale 6 Independent with activity with or without an assistive device 5 Patient requires set up or clean up by helper. Patient completes activity by themselves 4 Supervision or touching assist (CGA). [place] provide cues , steadying assist 3 The helper provides less than half the effort to complete the activity 2 The helper provides more than half the effort to complete the activity 1 Dependent. The helper does all the effort to complete an activity 7 Patient refused to complete or attempt activity 9 The patient did not perform the activity before the current illness or injury 88 Not attempted due to Medical conditions or safety concerns Grooming (FIM): 6 Oral Hygiene (QC): 6 Bathing (FIM): 4 Upper Body (FIM): 5 Lower Body Dressing (FIM): 3 Toileting (FIM): 4 Transfers (B, C, W/C) (FIM): 4 Toilet/Commode Transfer (FIM): 4 OT Short Term Goals Short Term Goals Time Frame: May 02, 2017 Bathing(FIM): 4 Lower Body Dressing(FIM): 4 Toileting(FIM): 4 Toilet/Commode Transfer(FIM): 5 Shower Transfer(FIM): 4 Additional Short Term Goals: 1-Demonstrate ADL Tasks, 2-Verbalize Understanding , 3-ImproveStrength/Damien 1=Demonstrate adherence to instructed precautions during ADL tasks. 2=Patient will verbalize/demonstrate understanding of assistive devices/ modifications for ADL. 3=Patient will improve strength/tolerance for activity to enable patient to perform ADL's. OT Snf Goals Funeral Director/Embalmer Goals Time Frame: May 16, 2017 Eating (FIM): 6 Eating (QC): 6 Groomin Oral Hygiene (QC): 6 Bathing(FIM): 5 Shower/Bathe Self (QC): 5 Upper Body Dressing(FIM): 5 Upper Body Dressing (QC): 5 Lower Body Dressing(FIM): 5 Lower Body Dressing (QC): 5 On/Off Footwear (QC): 5 Toileting(FIM): 6 Toilet/Commode Transfer(FIM): 6 Toilet/Commode Transfer (QC): 6 Shower Transfer(FIM): 5 Additional Goals: 1-Demonstrate ADL Tasks, 2-Verbalize Understanding, 3- ImproveStrength/Damien 1=Demonstrate adherence to instructed precautions during ADL tasks. 2=Patient will verbalize/demonstrate understanding of assistive devices/ modifications for ADL. 3=Patient will improve strength/tolerance for activity to enable patient to perform ADL's. OT Education/Plan Problem List/Assessment Pt to benefit from skilled OT intervention for ADL training, transfers, strengthening, adaptive equipment training, and home safety education to maximize level of function and allow safe return home. Discharge Recommendations Plan/Recommendations: Continue POC Treatment Plan/Plan of Care Patient would benefit from OT for education, treatment and training to promote independence in ADL's, mobility, safety and/or upper extremity function for ADL' s. Plan of Care: ADL Retraining, Functional Mobility, UE Funct Exercise/Act Treatment Duration: May 16, 2017 Frequency: At least 5-7 days/Wk (IRF) Estimated Hrs Per Day: 1.5 hours per day Agreement: Yes Rehab Potential: Good Time/GCodes Start Time: 09:00 Stop Time: 10:00 Total Time Billed (hr/min): 60 Billed Treatment Time 1 visit-ADL 3 (40 min) FA 1 (20 min) MANJU CHAVIS Apr 27, 2017 09:44
[2017-04-27] MEDS: LEVOFLOXACIN 500 MG TAB (LEVAQUIN) PO SCH (10:59)
[2017-04-27] MEDS: ACETAMINOPHEN 500 MG TAB (TYLENOL) PO PRN (11:58)
--- NOTE | 2017-04-27 12:00 | Physical Therapy Daily Note ---
PT Daily Note-Current Subjective Patient is very agreeable to participate with PT. Pain Numeric Pain Scale: 5-Moderate Pain Location: Left Location Body Site: Hip Pain Description: Ache, Acute Mental Status Patient Orientation: Normal For Age Transfers Functional [place] Measure 0=Not Assessed/NA 4=Minimal Assistance 1=Total Assistance 5=Supervision or Setup 2=Maximal Assistance 6=Modified [place] 3=Moderate Assistance 7=Complete IndependenceIRFPAI Quality Coding Scale 6 Independent with activity with or without an assistive device 5 Patient requires set up or clean up by helper. Patient completes activity by themselves 4 Supervision or touching assist (CGA). [place] provide cues , steadying assist 3 The helper provides less than half the effort to complete the activity 2 The helper provides more than half the effort to complete the activity 1 Dependent. The helper does all the effort to complete an activity 7 Patient refused to complete or attempt activity 9 The patient did not perform the activity before the current illness or injury 88 Not attempted due to Medical conditions or safety concerns Transfers (B, C, W/C) (FIM): 4 Scootin Rollin Roll Left to Right (QC): 4 Supine to/from Sit: 5 Sit to/from Stand: 4 Sit to Lying (QC): 4 Sit to Stand (QC): 3 Chair/Nrk-jh-Yjzcw Xfer(QC): 3 Bed to/from Chair: 4 Car Transfer (QC): 5 Weight Bearing Weight Bearing Restriction: Non Weight Bearing Location Restriction: L LE Gait Training Does the Patient Walk?: Yes Gait (FIM): 1 Distance (FIM): 1=up to 49 ft Distance: 25' x 6 Walk 10 feet (QC): 3 Walking 10ft/uneven surface-QC: 3 Gait Level of Assist: 4 Gait Persons Needed: 1 Gait Assistive Device: FWW Patient is able to comply with NWB left LE; she does fatigue due to hopping with FWW Exercises Supine Ex: Ankle pumps, Quad Set, Heel Slides, Straight leg raise, Hip abd/add Supine Reps: 20 NuStep Minutes: 15 NuStep Workload: 4 (to improve strength and functional mobility) Assessment Patient is improving with treatment plan and is highly motivated with progress. Spouse present and is also very motivated with patient's progress. PT Short Term Goals Short Term Goals Wheelchair Distance: 75' PT Moccasin Sewer Goals [place]cas[place] Sewer Goals PT [facility] Goals Time Frame: May 19, 2017 Transfers (B,C,W/C) (FIM): 6 Sit to Lying (QC): 5 Lying-Sitting on Side/Bed(QC): 5 Sit to Stand (QC): 5 Rollin Roll Left to Right (QC): 5 Chair/Nzx-yb-Lrubs Xfer(QC): 5 Car Transfer (QC): 5 Does the Patient Walk: Yes Gait (FIM): 1 Gait distance (FIM): 1=up to 49 ft (45') Distance: 45' Walk 10 feet (QC): 5 Walk 10ft-Uneven Surface(QC): 5 Walk 50ft with 2 Turns (QC): 88 Walk 150 ft (QC): 88 Gait Level of Assist: 6 Gait Assistive Device: FWW Stairs (FIM): 2 # of Steps: 4 1 Step (curb) (QC): 5 4 Steps (QC): 4 12 Steps (QC): 88 Stairs Level Of Assist: 5 Picking up an Object (QC): 5 PT Plan Treatment/Plan Treatment Plan: Continue Plan of Care Treatment Plan: Bed Mobility, Education, Functional Activity Damien, Functional Strength, Group Therapy, Gait, Safety, Therapeutic Exercise, Transfers Treatment Duration: May 19, 2017 Frequency: At least 5-7 days/Wk (IRF) Estimated Hrs Per Day: 1.5 hours per day Patient and/or Family Agrees t: Yes Time/GCodes Time In: 1100 Time Out: 1200 Total Billed Treatment Time: 60 Total Billed Treatment 1 visit GT x 2 30 min EX x 2 30 min NICKY VALADEZ PT Apr 27, 2017 12:00
--- NOTE | 2017-04-27 13:46 | Occupational Ther Daily Note ---
OT Current Status-Daily Note Subjective Pt alert, lying in bed. Pt agreed to therapy. No c/o pain at this time. Mental Status/Objective Patient Orientation: Person, Place, Time, Situation Functional [place] Measure 0=Not Assessed/NA 4=Minimal Assistance 1=Total Assistance 5=Supervision or Setup 2=Maximal Assistance 6=Modified [place] 3=Moderate Assistance 7=Complete [place] ADL-Treatment Min a to lift L LE to slide across bed. Pt then was able to sit EOB by self. CGA using FWW to ambulate in to bathroom. Min A for toilet transfer and manipulating pants for toileting due to balance. Pt completed hand washing at sink sitting in w/c. Pt transported to therapy gym via w/c. Functional [place] Measure 0=Not Assessed/NA 4=Minimal Assistance 1=Total Assistance 5=Supervision or Setup 2=Maximal Assistance 6=Modified [place] 3=Moderate Assistance 7=Complete IndependenceIRFPAI Quality Coding Scale 6 Independent with activity with or without an assistive device 5 Patient requires set up or clean up by helper. Patient completes activity by themselves 4 Supervision or touching assist (CGA). [place] provide cues , steadying assist 3 The helper provides less than half the effort to complete the activity 2 The helper provides more than half the effort to complete the activity 1 Dependent. The helper does all the effort to complete an activity 7 Patient refused to complete or attempt activity 9 The patient did not perform the activity before the current illness or injury 88 Not attempted due to Medical conditions or safety concerns Other Treatment Completed arm bike 10 min duration at 15 martinez resistance to increase strength and activity tolerance for daily functional tasks. Pt required no recovery breaks, tolerated well. After therapy, pt sitting in w/c with call light/phone in reach. All needs met in room. OT Short Term Goals Short Term Goals Time Frame: May 02, 2017 Bathing(FIM): 4 Lower Body Dressing(FIM): 4 Toileting(FIM): 4 Toilet/Commode Transfer(FIM): 5 Shower Transfer(FIM): 4 Additional Short Term Goals: 1-Demonstrate ADL Tasks, 2-Verbalize Understanding , 3-ImproveStrength/Damien 1=Demonstrate adherence to instructed precautions during ADL tasks. 2=Patient will verbalize/demonstrate understanding of assistive devices/ modifications for ADL. 3=Patient will improve strength/tolerance for activity to enable patient to perform ADL's. OT Correction Goals Computing Systems Mechanic Goals Time Frame: May 16, 2017 Eating (FIM): 6 Eating (QC): 6 Groomin Oral Hygiene (QC): 6 Bathing(FIM): 5 Shower/Bathe Self (QC): 5 Upper Body Dressing(FIM): 5 Upper Body Dressing (QC): 5 Lower Body Dressing(FIM): 5 Lower Body Dressing (QC): 5 On/Off Footwear (QC): 5 Toileting(FIM): 6 Toilet/Commode Transfer(FIM): 6 Toilet/Commode Transfer (QC): 6 Shower Transfer(FIM): 5 Additional Goals: 1-Demonstrate ADL Tasks, 2-Verbalize Understanding, 3- ImproveStrength/Damien 1=Demonstrate adherence to instructed precautions during ADL tasks. 2=Patient will verbalize/demonstrate understanding of assistive devices/ modifications for ADL. 3=Patient will improve strength/tolerance for activity to enable patient to perform ADL's. OT Education/Plan Problem List/Assessment Pt to benefit from skilled OT intervention for ADL training, transfers, strengthening, adaptive equipment training, and home safety education to maximize level of function and allow safe return home. Discharge Recommendations Plan/Recommendations: Continue POC Treatment Plan/Plan of Care Patient would benefit from OT for education, treatment and training to promote independence in ADL's, mobility, safety and/or upper extremity function for ADL' s. Plan of Care: ADL Retraining, Functional Mobility, UE Funct Exercise/Act Treatment Duration: May 16, 2017 Frequency: At least 5-7 days/Wk (IRF) Estimated Hrs Per Day: 1.5 hours per day Agreement: Yes Rehab Potential: Good Time/GCodes Start Time: 13:30 Stop Time: 14:00 Total Time Billed (hr/min): 30 Billed Treatment Time 1 visit-FA 1 (20 min) EX 1 (10 min) MANJU CHAVIS Apr 27, 2017 13:46
--- NOTE | 2017-04-27 14:10 | Consultation ---
History of Present Illness History of Present Illness Patient Consulted On(maira/time) 04/27/17 14:10 Date Seen by Provider: Apr 27, 2017 Time Seen by Provider: 14:10 Reason for Visit: HIP FX History of Present Illness PT REPORTS FEELING PRETTY GOOD, SHE STILL HAS PAIN IN HER LATERAL LEFT HIP. SHE REPORTS SOME DISCOMFORT IN HER NECK AT TIMES, BUT SHE HAS OVERALL BEEN IMPROVING WITH HER STRENGTH, "HOPPING WELL". Allergies and Home Medications Allergies Coded Allergies: bacitracin (Verified Allergy, Unknown, 10/06/15) lidocaine (Verified Allergy, Unknown, 10/06/15) neomycin (Verified Allergy, Unknown, 10/06/15) polymyxin B (Verified Allergy, Unknown, 10/06/15) pramoxine (Verified Allergy, Unknown, 10/06/15) Home Medications Acetaminophen 650 Mg Tablet.er, 650 MG PO HS, (Reported) Acetaminophen 650 Mg Tablet.er, 650 MG PO DAILY PRN for PAIN-MILD, (Reported) Calcium Carbonate 300 Mg Tab.chew, 300 MG PO PRN PRN for INDIGESTION, (Reported) Calcium Citrate/Vitamin D3 1 Each Tablet, 1 TAB PO DAILY, (Reported) Cetirizine HCl 10 Mg Tablet, 10 MG PO DAILY, (Reported) Cholecalciferol (Vitamin D3) 2,000 Unit Capsule, 2,000 UNIT PO DAILY, (Reported) Diclofenac Sodium 100 Gm Gel..gram., 0 GM TOP QID for 30 Days, #3 Ref 1 use on neck/upper back, and knee Prescribed by: ZEV FARRAR on 05/09/17 0913 Diltiazem HCl 30 Mg Tablet, 30 MG PO QID for 30 Days, #120 Prescribed by: KIYA PEREZ on 05/09/17 0759 Docusate Sodium 100 Mg Capsule, 100 MG PO BID, (Reported) Escitalopram Oxalate 5 Mg Tablet, 5 MG PO HS, (Reported) Famotidine 40 Mg Tablet, 40 MG PO HS, (Reported) Hydrocodone/Acetaminophen 1 Each Tablet, 1 EA PO Q6H PRN for PAIN-MODERATE for 30 Days, #90 Prescribed by: KIYA PEREZ on 05/09/17 0759 Multivitamin 1 Each Tablet, 1 TAB PO DAILY, (Reported) Pyridoxine HCl 100 Mg Tablet, 100 MG PO BID, (Reported) Simvastatin 20 Mg Tablet, 20 MG PO HS, (Reported) Triamterene/Hydrochlorothiazid 1 Each Tablet, 1 TAB PO DAILY, (Reported) Vit A/Vit C/Vit E/Zinc/Copper 1 Each Tablet, 1 TAB PO BID, (Reported) Past Gviljzm-Lyxjbf-Wxvxan Hx Patient Social History Alcohol Use: Denies Use Recreational Drug Use: No Smoking Status: Never a Smoker 2nd Hand Smoke Exposure: No Recent Foreign Travel: No Contact w/Someone Who Travel: No Recent Infectious Disease Expo: No Recent Hopitalizations: No Physical Abuse Screen: No Sexual Abuse: No Immunizations Up To Date Tetanus Booster (TDap): Unknown Date of Pneumonia Vaccine: Sep 12, 2013 Date of Influenza Vaccine: Jun 07, 2016 Seasonal Allergies Seasonal Allergies: No Surgeries HX Surgeries: Yes (RSO, HYST, BREAST BX, CATARACTS) Surgeries: Breast, Hysterectomy Respiratory Hx Respiratory Disorders: Yes (ASTHMA CHILD) Cardiovascular Hx Cardiac Disorders: Yes Cardiac Disorders: High Cholesterol, Hypertension Neurological Hx Neurological Disorders: No Reproductive System Hx 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: No Sexually Transmitted Disease: No HIV/AIDS: No Female 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: 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 Genitourinary Hx Genitourinary Disorders: No Gastrointestinal Hx Gastrointestinal Disorders: Yes (GERD) Gastrointestinal Disorders: Gastroesophageal Reflux, Obstructive Bowel, Hiatal Hernia Musculoskeletal Hx Musculoskeletal Disorders: Yes (ARTHRITIS, OSTEOPOROSIS) Musculoskeletal Disorders: Osteoporosis, Arthritis Endocrine Hx Endocrine Disorders: No HEENT HX ENT Disorders: No HEENT Disorders: Macular Degeneration Loss of Vision: Denies Hearing Impairment: Denies Cancer Hx Cancer: No Psychosocial Hx Psychiatric Problems: No Integumentary HX Skin/Integumentary Disorder: No Blood Transfusions Hx Blood Disorders: No Adverse Reaction to a Blood Tr: No Reviewed Nursing Assessment Reviewed/Agree w Nursing PMH: Yes Family Medical History Significant Family History: Hypertension Family Medial History: Congenital disease G8 BROTHER (? DOWN SYNDROME) Hypertension 19 MOTHER G8 SISTER Kidney disease sister Myocardial infarction 19 FATHER Neoplasm 19 MOTHER (BREAST CANCER) Visual disorder 19 MOTHER (MACULAR DEGENERATION) Review of Systems-General Constitutional: No chills, No fever, No malaise, No weakness EENTM: No hoarseness, No mouth pain, No throat pain Respiratory: No cough, No dyspnea on exertion Cardiovascular: No chest pain Gastrointestinal: No abdominal pain, No nausea, No vomiting Genitourinary: no symptoms reported : No Musculoskeletal: other (PAIN IN LEFT HIP) Skin: no symptoms reported Psychiatric/Neurological: Denies Anxiety, Denies Depressed All Other Systems Reviewed Negative Unless Noted: Yes Physical Exam-General Problems Physical Exam Vital Signs Vital Sign - Last 12Hours 04/25/17 04/25/17 14:55 18:07 Temp 97.2 Pulse 76 Resp 16 B/P (MAP) 166/63 Pulse Ox 97 O2 Delivery Room Air Capillary Refill : Less Than 3 Seconds General Appearance: WD/WN, no apparent distress Eyes: Bilateral Eye Normal Inspection, Bilateral Eye PERRL, Bilateral Eye EOMI HEENT: PERRL/EOMI, pharynx normal Neck: non-tender, full range of motion, supple, normal inspection Respiratory: chest non-tender, lungs clear, normal breath sounds, no respiratory distress Cardiovascular: regular rate, rhythm, no edema Gastrointestinal: normal bowel sounds, non tender, soft, no organomegaly, no pulsatile mass Back: normal inspection, no CVA tenderness, no vertebral tenderness Extremities: no calf tenderness Neurologic/Psychiatric: sheet rock taper helper II-XII nml as tested, alert, normal mood/affect, oriented x 3 Skin: warm/dry Lymphatic: no adenopathy Assessment/Plan Assessment/Plan Admission Diagnosis/Plan LEFT HIP FRACTURE HYPOMAGNESEMIA HYPOPHOSPHATEMIA ANEMIA FRAILTY DEPRESSION HYPERTENSION GERD HYPERLIPIDEMIA LEFT HIP FRACTURE - CONTINUE WITH PHYSICAL THERAPY - MONITOR SYMPTOMS - PT TO BE TRANSFERRED TO INPATIENT REHAB FOR CONTINUED THERAPY. HYPOMAGNESEMIA AND HYPOPHOSPHATEMIA - MONITOR SYMPTOMS - STABLE ANEMIA - MONITOR SYMPTOMS. FRAILTY DEPRESSION - CONTINUE WITH HOME MEDICATIONS. HYPERTENSION - RESUME HOME MEDICATIONS. GERD - RESUME HOME MEDICATIONS. HYPERLIPIDEMIA - CONTINUE SUPPORTIVE CARE, HOME MEDICATIONS. Clinical Quality Measures DVT/VTE Risk/Contraindication: Risk Factor Score Per Nursin RFS Level Per Nursing on Admit: 4+=Very High ZEV FARRAR MD Apr 27, 2017 14:10
--- NOTE | 2017-04-27 14:47 | Physical Therapy Daily Note ---
PT Daily Note-Current Subjective Patient reports fatigue, however, agrees to PT. Pain Numeric Pain Scale: 5-Moderate Pain Location: Left Location Body Site: Hip Pain Description: Ache, Acute Mental Status Patient Orientation: Normal For Age Transfers Functional [place] Measure 0=Not Assessed/NA 4=Minimal Assistance 1=Total Assistance 5=Supervision or Setup 2=Maximal Assistance 6=Modified [place] 3=Moderate Assistance 7=Complete IndependenceIRFPAI Quality Coding Scale 6 Independent with activity with or without an assistive device 5 Patient requires set up or clean up by helper. Patient completes activity by themselves 4 Supervision or touching assist (CGA). [place] provide cues , steadying assist 3 The helper provides less than half the effort to complete the activity 2 The helper provides more than half the effort to complete the activity 1 Dependent. The helper does all the effort to complete an activity 7 Patient refused to complete or attempt activity 9 The patient did not perform the activity before the current illness or injury 88 Not attempted due to Medical conditions or safety concerns Transfers (B, C, W/C) (FIM): 4 Scootin Rollin Roll Left to Right (QC): 5 Supine to/from Sit: 5 Sit to/from Stand: 4 Sit to Lying (QC): 5 Sit to Stand (QC): 3 Bed to/from Chair: 4 CGA with use of gait belt for safety Weight Bearing Weight Bearing Restriction: Non Weight Bearing Location Restriction: L LE Gait Training Does the Patient Walk?: Yes Gait (FIM): 1 Distance (FIM): 1=up to 49 ft Distance: 45' x 2 Walk 10 feet (QC): 3 Gait Level of Assist: 4 Gait Persons Needed: 1 Gait Assistive Device: FWW compliance with NWB left LE Exercises Supine Ex: Ankle pumps, Quad Set, Heel Slides Supine Reps: 20 Seated Therapy Exercises: Ankle pumps, Long arc quads Seated Reps: 20 Assessment Patient is very fatigued this p.m. and required recovery periods due to fatigue. Exercise and gait training utilized to improve patient functional mobility to return to home with spouse and home health. PT Short Term Goals Short Term Goals Wheelchair Distance: 75' PT Mcc Goals Lithographic Retoucher Apprentice Goals PT Mcc Goals Time Frame: May 19, 2017 Transfers (B,C,W/C) (FIM): 6 Sit to Lying (QC): 5 Lying-Sitting on Side/Bed(QC): 5 Sit to Stand (QC): 5 Rollin Roll Left to Right (QC): 5 Chair/Guw-eu-Drhwy Xfer(QC): 5 Car Transfer (QC): 5 Does the Patient Walk: Yes Gait (FIM): 1 Gait distance (FIM): 1=up to 49 ft (45') Distance: 45' Walk 10 feet (QC): 5 Walk 10ft-Uneven Surface(QC): 5 Walk 50ft with 2 Turns (QC): 88 Walk 150 ft (QC): 88 Gait Level of Assist: 6 Gait Assistive Device: FWW Stairs (FIM): 2 # of Steps: 4 1 Step (curb) (QC): 5 4 Steps (QC): 4 12 Steps (QC): 88 Stairs Level Of Assist: 5 Picking up an Object (QC): 5 PT Plan Treatment/Plan Treatment Plan: Continue Plan of Care Treatment Plan: Bed Mobility, Education, Functional Activity Damien, Functional Strength, Group Therapy, Gait, Safety, Therapeutic Exercise, Transfers Treatment Duration: May 19, 2017 Frequency: At least 5-7 days/Wk (IRF) Estimated Hrs Per Day: 1.5 hours per day Patient and/or Family Agrees t: Yes Time/GCodes Time In: 1415 Time Out: 1445 Total Billed Treatment Time: 30 Total Billed Treatment 1 visit EX 10 min GT 20 min NICKY VALADEZ PT Apr 27, 2017 14:47
--- NOTE | 2017-04-27 17:55 | Individualized Plan of Care ---
Individualized Plan of Care Rehab Nursing IPOC Order Admission Date Apr 25, 2017 at 10:50 Current Orders Orders Cbc With Automated Diff (04/28/17 06:00) Comprehensive Metabolic Panel (04/28/17 06:00) Levofloxacin 500 Mg/100 Ml Iv (Levaquin (04/29/17 11:00) Patient Visit (04/27/17 ) Gait Training, Ea 15 Min (04/27/17 ) Exercise Therap, Ea 15 Min (04/27/17 ) Rehab Nursing Orders: Diseage Management, Edu in Press Rel Techn, Hydration Management, Nutrition Management, Pain Management Other Nursing Orders: Monitor for postop urinary retention and Opiod induced constipation PT IPOC Problem List: Activity Tolerance, Functional Strength, Safety, Balance, Gait Treatment Plan: Continue Plan of Care Bed Mobility, Education, Functional Activity Damien, Functional Strength, Group Therapy, Gait, Safety, Therapeutic Exercise, Transfers Treatment Duration: May 19, 2017 Frequency: At least 5-7 days/Wk (IRF) Estimated Hrs Per Day: 1.5 hours per day OT IPOC Problems: Decreased Activ Tolerance, Decreased UE Strength, Dependent Transfers , Impaired Self-Care Skills OT Problems Pt to benefit from skilled OT intervention for ADL training, transfers, strengthening, adaptive equipment training, and home safety education to maximize level of function and allow safe return home. Plan of Care: ADL Retraining, Functional Mobility, UE Funct Exercise/Act Treatment Duration: May 16, 2017 Frequency: At least 5-7 days/Wk (IRF) Estimated Hrs Per Day: 1.[address] IPOC Speech Therapy Treatment Plan: Discontinue ST Frequency: Modified Program (IRF) Estimated Hrs Per Day: .25 hour per day Physician IPOC Medical Issues being managed closely and that require the 24 hour availability of a physician: HTN UTI,Hyponatremia,Gerd Medical Issues: DVT Prophylaxis, Falls Precautions, Fluid/Electrolyte/ Nutrition Balance, Infection Protection, Pain Management, Weight Bearing Precautions, Wound Care, Other (List) (as per above) Brief Synthesis of Preadmission Screen, Post-Admission Evaluation, and Therapy Evaluations: 81 yo female who had been Independent at home with spouse prior to fall with resulting Left Hip frx now s/p pinning and NWB LLE.Hypontremia noted as well as Uti and completing a course of PO antibiotic Medical Prognosis: good Anticipated Length of Stay: 05-16-2017 Rehab Goals Modified Independent to supervision fo adls and mobility skills due to NWB status LLE Anticipated discharge destinat: Home with spouse and C KIYA PEREZ MD Apr 27, 2017 17:55
[2017-04-27 18:10] VITALS: BP 149/65
[2017-04-27] MEDS: HYDROcodone/APAP 7.5 MG/325 MG (LORTAB, LORCET PLUS) TABLET PO PRN (20:30)
[2017-04-27] MEDS: ATORVASTATIN 10 MG (LIPITOR) TABLET PO SCH (20:30)
[2017-04-27] MEDS: FAMOTIDINE 20 MG (PEPCID) TABLET PO SCH (20:30)
[2017-04-27] MEDS: ENOXAPARIN 30 MG/0.3 ML (LOVENOX) SYR SC SCH (20:30)
[2017-04-28 04:52] LABS: BASOPHILS % (AUTO) 1 % (0-10); EOSINOPHILS # (AUTO) 0.3 10^3/uL (0.0-0.3); EOSINOPHILS % (AUTO) 4 % (0-10); LYMPHOCYTES # (AUTO) 0.6 X 10^3 (1.0-4.0); LYMPHOCYTES % (AUTO) 11 % (12-44); MEAN CORPUSCULAR HEMOGLOBIN 31 PG (25-34); MEAN CORPUSCULAR HGB CONC 34 G/DL (32-36); MEAN CORPUSCULAR VOLUME 91 FL (80-99); MEAN PLATELET VOLUME 8.9 FL (7.4-10.4); MONOCYTES # (AUTO) 0.5 X 10^3 (0.0-1.0); MONOCYTES % (AUTO) 8 % (0-12); NEUTROPHILS # (AUTO) 4.4 X 10^3 (1.8-7.8); NEUTROPHILS % (AUTO) 76 % (42-75); PLATELET COUNT 339 10^3/uL (130-400); RED BLOOD COUNT 3.63 10^6/uL (4.35-5.85); RED CELL DISTRIBUTION WIDTH 14.1 % (10.0-14.5); WHITE BLOOD COUNT 5.8 10^3/uL (4.3-11.0)
[2017-04-28 05:17] LABS: ALANINE AMINOTRANSFERASE 25 U/L (0-55); ALBUMIN 3.7 GM/DL (3.2-4.5); ANION GAP 18 MMOL/L (5-14); ASPARTATE AMINO TRANSFERASE 33 U/L (5-34); BILIRUBIN,TOTAL 0.6 MG/DL (0.1-1.0); BLOOD UREA NITROGEN 12 MG/DL (7-18); BUN/CREATININE RATIO 20; CALCIUM 9.2 MG/DL (8.5-10.1); CARBON DIOXIDE 22 MMOL/L (21-32); CHLORIDE 94 MMOL/L (98-107); CREATININE SERUM 0.61 MG/DL (0.60-1.30); GFR ESTIMATED > 60; GLUCOSE 92 MG/DL (70-105); POTASSIUM 3.1 MMOL/L (3.6-5.0); SODIUM 134 MMOL/L (135-145); TOTAL PROTEIN 6.6 GM/DL (6.4-8.2)
[2017-04-28 05:32] VITALS: BP 157/58
[2017-04-28 08:45] VITALS: BP 147/64
[2017-04-28] MEDS: DOCUSATE SODIUM 100 MG (COLACE) CAP PO SCH ×2 (08:48→20:06)
[2017-04-28] MEDS: DILTIAZEM 30 MG (CARDIZEM) TAB PO SCH ×4 (08:48→20:06)
[2017-04-28] MEDS: TRIAMTERENE/HCTZ 75-50 (MAXZIDE,DYAZIDE) TABLET PO SCH (08:48)
--- NOTE | 2017-04-28 08:58 | PM & R (SOAP) Progress Note ---
Subjective Time Seen by Provider: 07:50 Subjective/Events-last exam Patient was seen in her room this AM Eating and sleeping well Pain control adequate.Patient min assist for transfers,Todays labs noted Hyponatremia improving Patient with hypokalemia Current meds reviewed Objective Exam Last Set of Vital Signs Vital Signs Date Time Temp Pulse Resp B/P (MAP) Pulse Ox O2 Delivery O2 Flow Rate FiO2 04/28/17 05:32 96.8 65 18 157/58 97 Room Air Capillary Refill : Less Than 3 Seconds I&O Intake and Output 04/28/17 00:00 Intake Total 690 ml Balance 690 ml Intake Oral 690 ml # Voids 7 # Bowel Movements 1 General: Alert, Oriented X3, Cooperative, No Acute Distress HEENT: Atraumatic, PERRLA, EOMI, Mucous Memb Moist/[place] Neck: Supple, No JVD Lungs: Clear to Auscultation Heart: Regular Rate Abdomen: Normal Bowel Sounds, Soft, No Tenderness Extremities: Other (trace edema left ankle) Neuro: Other (weakness proximal left leg) Results Lab Laboratory Tests 04/28/17 04:23: White Blood Count 5.8, Red Blood Count 3.63L, Hemoglobin 11.2L, Hematocrit 33L, Mean Corpuscular Volume 91, Mean Corpuscular Hemoglobin 31, Mean Corpuscular Hemoglobin Concent 34, Red Cell Distribution Width 14.1, Platelet Count 339, Mean Platelet Volume 8.9, Neutrophils (%) (Auto) 76H, Lymphocytes (%) (Auto) 11L , Monocytes (%) (Auto) 8, Eosinophils (%) (Auto) 4, Basophils (%) (Auto) 1, Neutrophils # (Auto) 4.4, Lymphocytes # (Auto) 0.6L, Monocytes # (Auto) 0.5, Eosinophils # (Auto) 0.3, Basophils # (Auto) 0.0, Sodium Level 134L, Potassium Level 3.1L, Chloride Level 94L, Carbon Dioxide Level 22, Anion Gap 18H, Blood Urea Nitrogen 12, Creatinine 0.61, Estimat Glomerular Filtration Rate > 60, BUN/ Creatinine Ratio 20, Glucose Level 92, Calcium Level 9.2, Total Bilirubin 0.6, Aspartate Amino Transf (AST/SGOT) 33, Alanine Aminotransferase (ALT/SGPT) 25, Alkaline Phosphatase 66, Total Protein 6.6, Albumin 3.7 Assessment/Plan Assessment s/p subcapital femur frx left hip s/p perc pinning NWB LLE HTN controlled Hyponatremia-improving Hypokalemia Postop anmeia Plan Continue PT/OT Team Conference held 04-26 See report for full functional update and POC Reconference next week Rechecked labs Replace K-See orders KIYA PEREZ MD Apr 28, 2017 08:58
[2017-04-28] MEDS: HYDROcodone/APAP 7.5 MG/325 MG (LORTAB, LORCET PLUS) TABLET PO PRN (09:12)
[2017-04-28] MEDS ORDERED: KCL 20 MEQ TAB (K-DUR) PO ONE ×2 (09:15→11:28)
--- NOTE | 2017-04-28 10:57 | Physical Therapy Daily Note ---
PT Daily Note-Current Subjective Patient agrees to PT. Pain Numeric Pain Scale: 5-Moderate Pain Location: Left Location Body Site: Hip Pain Description: Ache, Acute Appearance return to home with spouse and home health Mental Status Patient Orientation: Normal For Age Transfers Functional [place] Measure 0=Not Assessed/NA 4=Minimal Assistance 1=Total Assistance 5=Supervision or Setup 2=Maximal Assistance 6=Modified [place] 3=Moderate Assistance 7=Complete IndependenceIRFPAI Quality Coding Scale 6 Independent with activity with or without an assistive device 5 Patient requires set up or clean up by helper. Patient completes activity by themselves 4 Supervision or touching assist (CGA). [place] provide cues , steadying assist 3 The helper provides less than half the effort to complete the activity 2 The helper provides more than half the effort to complete the activity 1 Dependent. The helper does all the effort to complete an activity 7 Patient refused to complete or attempt activity 9 The patient did not perform the activity before the current illness or injury 88 Not attempted due to Medical conditions or safety concerns Transfers (B, C, W/C) (FIM): 4 Scootin Rollin Roll Left to Right (QC): 5 Supine to/from Sit: 6 Sit to/from Stand: 4 Sit to Lying (QC): 5 Sit to Stand (QC): 3 Chair/Phs-ou-Gcqps Xfer(QC): 3 Bed to/from Chair: 4 Car Transfer (QC): 5 Weight Bearing Weight Bearing Restriction: Non Weight Bearing Location Restriction: L LE Gait Training Does the Patient Walk?: Yes Gait (FIM): 2 Distance (FIM): 2=868-47 ft Distance: 50' x 4 Walk 10 feet (QC): 3 Walk 50 ft with 2 Turns(QC): 3 Gait Level of Assist: 4 Gait Persons Needed: 1 Gait Assistive Device: FWW patient is compliant with NWB left LE Exercises Supine Ex: Ankle pumps, Quad Set, Heel Slides Supine Reps: 20 (x 2 sets) Seated Therapy Exercises: Ankle pumps, Long arc quads, Hip flexion Seated Reps: 20 (x 2 sets) Standin way Ex=Flex, Abd, Ext (left LE), Mini squats (right LE only) Standing Reps: 20 (x 2 sets) NuStep Minutes: 12 NuStep Workload: 3 (to increase MMT right LE; left LE place on platform due to NWB) Assessment Current Status: Excellent Progress PT Short Term Goals Short Term Goals Wheelchair Distance: 75' PT Mechanical Maintenance Foreman Goals Longterm Goals PT Mechanical Maintenance Foreman Goals Time Frame: May 19, 2017 Transfers (B,C,W/C) (FIM): 6 Sit to Lying (QC): 5 Lying-Sitting on Side/Bed(QC): 5 Sit to Stand (QC): 5 Rollin Roll Left to Right (QC): 5 Chair/Dnt-lr-Mtvcq Xfer(QC): 5 Car Transfer (QC): 5 Does the Patient Walk: Yes Gait (FIM): 1 Gait distance (FIM): 1=up to 49 ft (45') Distance: 45' Walk 10 feet (QC): 5 Walk 10ft-Uneven Surface(QC): 5 Walk 50ft with 2 Turns (QC): 88 Walk 150 ft (QC): 88 Gait Level of Assist: 6 Gait Assistive Device: FWW Stairs (FIM): 2 # of Steps: 4 1 Step (curb) (QC): 5 4 Steps (QC): 4 12 Steps (QC): 88 Stairs Level Of Assist: 5 Picking up an Object (QC): 5 PT Plan Treatment/Plan Treatment Plan: Continue Plan of Care Treatment Plan: Bed Mobility, Education, Functional Activity Damien, Functional Strength, Group Therapy, Gait, Safety, Therapeutic Exercise, Transfers Treatment Duration: May 19, 2017 Frequency: At least 5-7 days/Wk (IRF) Estimated Hrs Per Day: 1.5 hours per day Patient and/or Family Agrees t: Yes Time/GCodes Time In: 1000 Time Out: 1100 Total Billed Treatment Time: 60 Total Billed Treatment 1 visit GT x 2 25 min EX x 2 35 min NICKY VALADEZ PT Apr 28, 2017 10:57
--- NOTE | 2017-04-28 11:12 | Occupational Ther Daily Note ---
OT Current Status-Daily Note Subjective Pt in bed, agrees to treatment. Pt states she slept better last night and is having minimal pain at this time. Mental Status/Objective Functional [place] Measure 0=Not Assessed/NA 4=Minimal Assistance 1=Total Assistance 5=Supervision or Setup 2=Maximal Assistance 6=Modified [place] 3=Moderate Assistance 7=Complete [place] ADL-Treatment Pt feeding self breakfast without assistance. Supine to sit with SBA. Pt declined sponge bath or shower at this times. States she will take a shower this afternoon before her hairdresser comes to fix her hair. Pt doffed nightgown without assist. Doffed socks with SBA using dressing stick. Don pullover shirt with set up. Pt used slitting machine feeder to start pants over feet. Stood with CGA for balance during pant hike. Pt donned tennis shoes with elastic laces with minimal assistance using long shoe horn. Pt to restroom with FWW, able to maintain NWB left LE. Pt sat at sink to complete grooming tasks with modified independence. Transfer to toilet with CGA. Pt able to manage toileting hygiene, requires CGA for balance during clothing management. Functional [place] Measure 0=Not Assessed/NA 4=Minimal Assistance 1=Total Assistance 5=Supervision or Setup 2=Maximal Assistance 6=Modified [place] 3=Moderate Assistance 7=Complete IndependenceIRFPAI Quality Coding Scale 6 Independent with activity with or without an assistive device 5 Patient requires set up or clean up by helper. Patient completes activity by themselves 4 Supervision or touching assist (CGA). [place] provide cues , steadying assist 3 The helper provides less than half the effort to complete the activity 2 The helper provides more than half the effort to complete the activity 1 Dependent. The helper does all the effort to complete an activity 7 Patient refused to complete or attempt activity 9 The patient did not perform the activity before the current illness or injury 88 Not attempted due to Medical conditions or safety concerns Eating (FIM): 6 Eating (QC): 6 Grooming (FIM): 6 Oral Hygiene (QC): 6 Upper Body (FIM): 5 Upper Body Dressing (QC): 5 Lower Body Dressing (FIM): 4 Lower Body Dressing (QC): 3 On/Off Footwear (QC): 3 Toileting (FIM): 4 Toileting Hygiene (QC): 4 Toilet/Commode Transfer (FIM): 4 Other Treatment To therapy gym with FWW, NWB left LE. Pt fatigues with mobility and requires rest break. Pt went the rest of the way via w/c. Arm bike [id number] to increase overall strength and activity tolerance needed for ADLs and transfers. Pt completed task with minimal resistance and slow pace. No rest breaks needed. Pt completed bilateral UE exercises to increase strength for functional task completion. Pt performed biceps curls and triceps extension exercises x15 reps. Cues for proper exercise technique. Pt returned to room, sitting in chair with needs met after session. OT Short Term Goals Short Term Goals Time Frame: May 02, 2017 Bathing(FIM): 4 Lower Body Dressing(FIM): 4 Toileting(FIM): 4 Toilet/Commode Transfer(FIM): 5 Shower Transfer(FIM): 4 Additional Short Term Goals: 1-Demonstrate ADL Tasks, 2-Verbalize Understanding , 3-ImproveStrength/Damien 1=Demonstrate adherence to instructed precautions during ADL tasks. 2=Patient will verbalize/demonstrate understanding of assistive devices/ modifications for ADL. 3=Patient will improve strength/tolerance for activity to enable patient to perform ADL's. OT Mcfp Goals [place] Man Goals Time Frame: May 16, 2017 Eating (FIM): 6 Eating (QC): 6 Groomin Oral Hygiene (QC): 6 Bathing(FIM): 5 Shower/Bathe Self (QC): 5 Upper Body Dressing(FIM): 5 Upper Body Dressing (QC): 5 Lower Body Dressing(FIM): 5 Lower Body Dressing (QC): 5 On/Off Footwear (QC): 5 Toileting(FIM): 6 Toilet/Commode Transfer(FIM): 6 Toilet/Commode Transfer (QC): 6 Shower Transfer(FIM): 5 Additional Goals: 1-Demonstrate ADL Tasks, 2-Verbalize Understanding, 3- ImproveStrength/Damien 1=Demonstrate adherence to instructed precautions during ADL tasks. 2=Patient will verbalize/demonstrate understanding of assistive devices/ modifications for ADL. 3=Patient will improve strength/tolerance for activity to enable patient to perform ADL's. OT Education/Plan Problem List/Assessment Pt to benefit from skilled OT intervention for ADL training, transfers, strengthening, adaptive equipment training, and home safety education to maximize level of function and allow safe return home. Discharge Recommendations Plan/Recommendations: Continue POC Treatment Plan/Plan of Care Patient would benefit from OT for education, treatment and training to promote independence in ADL's, mobility, safety and/or upper extremity function for ADL' s. Plan of Care: ADL Retraining, Functional Mobility, UE Funct Exercise/Act Treatment Duration: May 16, 2017 Frequency: At least 5-7 days/Wk (IRF) Estimated Hrs Per Day: 1.5 hours per day Agreement: Yes Rehab Potential: Good Time/GCodes Start Time: 08:00 Stop Time: 09:00 Total Time Billed (hr/min): 60 Billed Treatment Time 1 visit, ADLx2(30minutes), EXx2(30minutes) BERNARDO DAVIS OT Apr 28, 2017 11:12
[2017-04-28] MEDS: ACETAMINOPHEN 500 MG TAB (TYLENOL) PO PRN ×2 (13:01→22:04)
--- NOTE | 2017-04-28 14:41 | Therapy Group Daily Note ---
Therapy Daily Group Note Patient Education Topic Other List Below (Memory Strategies) Exercises LE Seated Exercise, UE Exercise Other/Notes Pt ambulated to PT/OT Group using FWW. Group consisted of Introduction (Name, Where you are from & Childhood School Memory), Memory Strategies to use for every tasks as well as a Memory Activity used to reenforce those Memory Strategies. Pt actively participated in Group by verbally giving Introduction and what strategies pt uses to help remember. Pt also used those strategies when working on Memory Activity. Pt ambulated back to room to rest at end of tx with all needs met. Start Time: 13:00 Stop Time: 14:00 Total Billed Treatment Time: 60 Total Billed Treatment 1, GRP MIKI HALLMAN SALES PLANNING ANALYST Apr 28, 2017 14:41
[2017-04-28 17:33] VITALS: BP 159/70
[2017-04-28] MEDS: FAMOTIDINE 20 MG (PEPCID) TABLET PO SCH (20:06)
[2017-04-28] MEDS: ENOXAPARIN 30 MG/0.3 ML (LOVENOX) SYR SC SCH (20:06)
[2017-04-28] MEDS: ATORVASTATIN 10 MG (LIPITOR) TABLET PO SCH (20:06)
[2017-04-29] MEDS: HYDROcodone/APAP 7.5 MG/325 MG (LORTAB, LORCET PLUS) TABLET PO PRN ×2 (03:02→22:30)
[2017-04-29 05:00] VITALS: BP 169/70
[2017-04-29 08:08] VITALS: BP 158/66
[2017-04-29] MEDS: TRIAMTERENE/HCTZ 75-50 (MAXZIDE,DYAZIDE) TABLET PO SCH (08:12)
[2017-04-29] MEDS: DOCUSATE SODIUM 100 MG (COLACE) CAP PO SCH ×3 (08:12→20:06)
[2017-04-29] MEDS: DILTIAZEM 30 MG (CARDIZEM) TAB PO SCH ×4 (08:12→20:10)
--- NOTE | 2017-04-29 08:14 | Physical Therapy Daily Note ---
PT Daily Note-Current Subjective Patient c/o 6/10 left hip pain. Agrees to PT. RN aware. Pain Numeric Pain Scale: 6 Location: Left Location Body Site: Hip Pain Description: Ache, Acute Mental Status Patient Orientation: Normal For Age Transfers Functional [place] Measure 0=Not Assessed/NA 4=Minimal Assistance 1=Total Assistance 5=Supervision or Setup 2=Maximal Assistance 6=Modified [place] 3=Moderate Assistance 7=Complete IndependenceIRFPAI Quality Coding Scale 6 Independent with activity with or without an assistive device 5 Patient requires set up or clean up by helper. Patient completes activity by themselves 4 Supervision or touching assist (CGA). [place] provide cues , steadying assist 3 The helper provides less than half the effort to complete the activity 2 The helper provides more than half the effort to complete the activity 1 Dependent. The helper does all the effort to complete an activity 7 Patient refused to complete or attempt activity 9 The patient did not perform the activity before the current illness or injury 88 Not attempted due to Medical conditions or safety concerns Transfers (B, C, W/C) (FIM): 5 Scootin Rollin Roll Left to Right (QC): 4 Supine to/from Sit: 5 Sit to/from Stand: 5 Sit to Lying (QC): 4 Sit to Stand (QC): 4 Weight Bearing Weight Bearing Restriction: Non Weight Bearing Location Restriction: L LE Gait Training Does the Patient Walk?: Yes Gait (FIM): 1 Distance (FIM): 1=up to 49 ft Distance: 15' x 2 Walk 10 feet (QC): 4 Gait Level of Assist: 5 Gait Persons Needed: 1 Gait Assistive Device: FWW compliant with NWB left LE Exercises Seated Therapy Exercises: Ankle pumps, Long arc quads, Hip flexion Seated Reps: 25 Assessment Current Status: Excellent Progress PT Short Term Goals Short Term Goals Wheelchair Distance: 75' PT Intermediate Goals Cell Tender Helper Goals PT Intermediate Goals Time Frame: May 19, 2017 Transfers (B,C,W/C) (FIM): 6 Sit to Lying (QC): 5 Lying-Sitting on Side/Bed(QC): 5 Sit to Stand (QC): 5 Rollin Roll Left to Right (QC): 5 Chair/Uwu-wd-Jiswh Xfer(QC): 5 Car Transfer (QC): 5 Does the Patient Walk: Yes Gait (FIM): 1 Gait distance (FIM): 1=up to 49 ft (45') Distance: 45' Walk 10 feet (QC): 5 Walk 10ft-Uneven Surface(QC): 5 Walk 50ft with 2 Turns (QC): 88 Walk 150 ft (QC): 88 Gait Level of Assist: 6 Gait Assistive Device: FWW Stairs (FIM): 2 # of Steps: 4 1 Step (curb) (QC): 5 4 Steps (QC): 4 12 Steps (QC): 88 Stairs Level Of Assist: 5 Picking up an Object (QC): 5 PT Plan Treatment/Plan Treatment Plan: Continue Plan of Care Treatment Plan: Bed Mobility, Education, Functional Activity Damien, Functional Strength, Group Therapy, Gait, Safety, Therapeutic Exercise, Transfers Treatment Duration: May 19, 2017 Frequency: At least 5-7 days/Wk (IRF) Estimated Hrs Per Day: 1.5 hours per day Patient and/or Family Agrees t: Yes Time/GCodes Time In: 755 Time Out: 810 Total Billed Treatment Time: 15 Total Billed Treatment 1 visit FA 15 min NICKY VALADEZ PT Apr 29, 2017 08:14
[2017-04-29] MEDS: ACETAMINOPHEN 500 MG TAB (TYLENOL) PO PRN (09:07)
[2017-04-29] MEDS ORDERED: LEVOFLOXACIN 500 MG/D5W 100 ML (PRE-MIX) IV SCH (11:00)
[2017-04-29 17:28] VITALS: BP 161/54
[2017-04-29] MEDS: ENOXAPARIN 30 MG/0.3 ML (LOVENOX) SYR SC SCH (20:02)
[2017-04-29] MEDS: ATORVASTATIN 10 MG (LIPITOR) TABLET PO SCH (20:06)
[2017-04-29] MEDS: FAMOTIDINE 20 MG (PEPCID) TABLET PO SCH (20:06)
[2017-04-30 06:00] VITALS: BP 178/65
[2017-04-30 08:30] VITALS: BP 147/69
[2017-04-30] MEDS: DILTIAZEM 30 MG (CARDIZEM) TAB PO SCH ×4 (08:37→20:14)
[2017-04-30] MEDS: TRIAMTERENE/HCTZ 75-50 (MAXZIDE,DYAZIDE) TABLET PO SCH (08:37)
[2017-04-30] MEDS: DOCUSATE SODIUM 100 MG (COLACE) CAP PO SCH ×2 (08:37→20:14)
[2017-04-30] MEDS: ACETAMINOPHEN 500 MG TAB (TYLENOL) PO PRN (14:58)
[2017-04-30 18:52] VITALS: BP 147/74
[2017-04-30] MEDS: FAMOTIDINE 20 MG (PEPCID) TABLET PO SCH (20:14)
[2017-04-30] MEDS: ATORVASTATIN 10 MG (LIPITOR) TABLET PO SCH (20:15)
[2017-04-30] MEDS: ENOXAPARIN 30 MG/0.3 ML (LOVENOX) SYR SC SCH (20:16)
[2017-04-30] MEDS: HYDROcodone/APAP 7.5 MG/325 MG (LORTAB, LORCET PLUS) TABLET PO PRN (21:24)
[2017-05-01 05:45] VITALS: BP 164/67
[2017-05-01] MEDS: DILTIAZEM 30 MG (CARDIZEM) TAB PO SCH ×4 (08:06→20:22)
[2017-05-01] MEDS: DOCUSATE SODIUM 100 MG (COLACE) CAP PO SCH ×2 (08:06→20:22)
[2017-05-01] MEDS: TRIAMTERENE/HCTZ 75-50 (MAXZIDE,DYAZIDE) TABLET PO SCH (08:06)
[2017-05-01] MEDS: ACETAMINOPHEN 500 MG TAB (TYLENOL) PO PRN ×2 (08:09→17:45)
--- NOTE | 2017-05-01 11:26 | Occupational Ther Daily Note ---
OT Current Status-Daily Note Subjective Pt alert, sitting in recliner. Pt agreed to therapy. No c/o pain. Mental Status/Objective Functional [place] Measure 0=Not Assessed/NA 4=Minimal Assistance 1=Total Assistance 5=Supervision or Setup 2=Maximal Assistance 6=Modified [place] 3=Moderate Assistance 7=Complete [place] ADL-Treatment Functional [place] Measure 0=Not Assessed/NA 4=Minimal Assistance 1=Total Assistance 5=Supervision or Setup 2=Maximal Assistance 6=Modified [place] 3=Moderate Assistance 7=Complete IndependenceIRFPAI Quality Coding Scale 6 Independent with activity with or without an assistive device 5 Patient requires set up or clean up by helper. Patient completes activity by themselves 4 Supervision or touching assist (CGA). [place] provide cues , steadying assist 3 The helper provides less than half the effort to complete the activity 2 The helper provides more than half the effort to complete the activity 1 Dependent. The helper does all the effort to complete an activity 7 Patient refused to complete or attempt activity 9 The patient did not perform the activity before the current illness or injury 88 Not attempted due to Medical conditions or safety concerns Other Treatment Pt declined completing shower or sponge bath stating that she was waiting for therapy and that she had already dressed. CELESTIN discussed with pt that part of OT was completing ADLs and working on safety and independence with bathing and dressing for therapy. Also discussed that due to scheduling that OT is not always able to see her first thing in the morning to complete ADLs prior to her working with PT. With verbal cues when using dressing stick, pt was able to use to doff socks. Using long handle shoe horn with verbal cues, pt was able to don shoes. Then pt ambulated to bathroom. Transferred using FWW and grabbars to toilet with close SBA. Using grabbars and FWW with close SBA, pt was able to manipulate clothing. Sitting on toilet, pt was able to cleanse self. Pt was transported to therapy gym via w/c to work on UE strengthening. Completed UE dowel misbah exercises with 2# wt, 3 sets 10 reps of 4 exercises to increase strength for daily functional tasks. Arm bike completed 15 min duration at 25 martinez resistance, no breaks, to increase strength and activity tolerance for daily functional tasks. W/c exchanged for one that fit pt. Pt maneuvered w/c with cues from gym to room then transferred back into recliner. Call light/phone in reach. All needs met in room. Education OT Patient Education: Use of adapted equipment, W/C management Teaching Recipient: Patient Teaching Methods: Demonstration, Discussion Response to Teaching: Verbalize Understanding, Return Demonstration, Reinforcement Needed OT Short Term Goals Short Term Goals Time Frame: May 02, 2017 Bathing(FIM): 4 Lower Body Dressing(FIM): 4 Toileting(FIM): 4 Toilet/Commode Transfer(FIM): 5 Shower Transfer(FIM): 4 Additional Short Term Goals: 1-Demonstrate ADL Tasks, 2-Verbalize Understanding , 3-ImproveStrength/Damien 1=Demonstrate adherence to instructed precautions during ADL tasks. 2=Patient will verbalize/demonstrate understanding of assistive devices/ modifications for ADL. 3=Patient will improve strength/tolerance for activity to enable patient to perform ADL's. OT Barrel Tester And Drainer Goals Halfway Goals Time Frame: May 16, 2017 Eating (FIM): 6 Eating (QC): 6 Groomin Oral Hygiene (QC): 6 Bathing(FIM): 5 Shower/Bathe Self (QC): 5 Upper Body Dressing(FIM): 5 Upper Body Dressing (QC): 5 Lower Body Dressing(FIM): 5 Lower Body Dressing (QC): 5 On/Off Footwear (QC): 5 Toileting(FIM): 6 Toilet/Commode Transfer(FIM): 6 Toilet/Commode Transfer (QC): 6 Shower Transfer(FIM): 5 Additional Goals: 1-Demonstrate ADL Tasks, 2-Verbalize Understanding, 3- ImproveStrength/Damien 1=Demonstrate adherence to instructed precautions during ADL tasks. 2=Patient will verbalize/demonstrate understanding of assistive devices/ modifications for ADL. 3=Patient will improve strength/tolerance for activity to enable patient to perform ADL's. OT Education/Plan Problem List/Assessment Pt to benefit from skilled OT intervention for ADL training, transfers, strengthening, adaptive equipment training, and home safety education to maximize level of function and allow safe return home. Discharge Recommendations Plan/Recommendations: Continue POC Treatment Plan/Plan of Care Patient would benefit from OT for education, treatment and training to promote independence in ADL's, mobility, safety and/or upper extremity function for ADL' s. Plan of Care: ADL Retraining, Functional Mobility, UE Funct Exercise/Act Treatment Duration: May 16, 2017 Frequency: At least 5-7 days/Wk (IRF) Estimated Hrs Per Day: 1.5 hours per day Agreement: Yes Rehab Potential: Good Time/GCodes Start Time: 10:00 Stop Time: 11:00 Total Time Billed (hr/min): 60 Billed Treatment Time 1 visit-FA 1 (20 min) EX 3 (40 min) MANJU CHAVIS May 01, 2017 11:26
--- NOTE | 2017-05-01 11:32 | Physical Therapy Daily Note ---
PT Daily Note-Current Subjective Patient in recliner pre tx, agrees to PT, has 4/10 pain in left leg. Mental Status Patient Orientation: Normal For Age Transfers Functional [place] Measure 0=Not Assessed/NA 4=Minimal Assistance 1=Total Assistance 5=Supervision or Setup 2=Maximal Assistance 6=Modified [place] 3=Moderate Assistance 7=Complete IndependenceIRFPAI Quality Coding Scale 6 Independent with activity with or without an assistive device 5 Patient requires set up or clean up by helper. Patient completes activity by themselves 4 Supervision or touching assist (CGA). [place] provide cues , steadying assist 3 The helper provides less than half the effort to complete the activity 2 The helper provides more than half the effort to complete the activity 1 Dependent. The helper does all the effort to complete an activity 7 Patient refused to complete or attempt activity 9 The patient did not perform the activity before the current illness or injury 88 Not attempted due to Medical conditions or safety concerns Transfers (B, C, W/C) (FIM): 5 Sit to/from Stand: 5 good safety and positioning of hands Gait Training Gait (FIM): 2 Distance: 100' Gait Level of Assist: 5 Gait Persons Needed: 1 Gait Assistive Device: FWW SBA, patient is compliant with her weight bearing status Exercises Seated Therapy Exercises: Hip flexion Seated Reps: 20 Standing: Hamstring curls, 3 way Ex=Flex, Abd, Ext Standing Reps: 20 LAQ left side for 5 min Treatments transfers, ambulation, functional strengthening Assessment Current Status: Fair Progress improving mobility PT Short Term Goals Short Term Goals Wheelchair Distance: 75' PT Fci Goals Fci Goals PT Janitor Caretaker Goals Time Frame: May 19, 2017 Transfers (B,C,W/C) (FIM): 6 Sit to Lying (QC): 5 Lying-Sitting on Side/Bed(QC): 5 Sit to Stand (QC): 5 Rollin Roll Left to Right (QC): 5 Chair/Lne-jq-Mcnte Xfer(QC): 5 Car Transfer (QC): 5 Does the Patient Walk: Yes Gait (FIM): 1 Gait distance (FIM): 1=up to 49 ft (45') Distance: 45' Walk 10 feet (QC): 5 Walk 10ft-Uneven Surface(QC): 5 Walk 50ft with 2 Turns (QC): 88 Walk 150 ft (QC): 88 Gait Level of Assist: 6 Gait Assistive Device: FWW Stairs (FIM): 2 # of Steps: 4 1 Step (curb) (QC): 5 4 Steps (QC): 4 12 Steps (QC): 88 Stairs Level Of Assist: 5 Picking up an Object (QC): 5 PT Plan Problem List Problem List: Activity Tolerance, Functional Strength, Safety, Balance, Gait, Transfer Treatment/Plan Treatment Plan: Continue Plan of Care Treatment Plan: Bed Mobility, Education, Functional Activity Damien, Functional Strength, Group Therapy, Gait, Safety, Therapeutic Exercise, Transfers Treatment Duration: May 19, 2017 Frequency: At least 5-7 days/Wk (IRF) Estimated Hrs Per Day: 1.5 hours per day Patient and/or Family Agrees t: Yes Safety Risks/Education Patient Education: Gait Training, Transfer Techniques, Correct Positioning, Safety Issues Teaching Recipient: Patient Teaching Methods: Demonstration, Discussion Response to Teaching: Reinforcement Needed Time/GCodes Time In: 1100 Time Out: 1130 Total Billed Treatment Time: 30 Total Billed Treatment 1 visit GT 20' EX 20' CINDI LI PT May 01, 2017 11:32
--- NOTE | 2017-05-01 12:44 | Physical Therapy Daily Note ---
PT Daily Note-Current Pain Numeric Pain Scale: 5-Moderate Pain Location: Left Location Body Site: Hip Pain Description: Ache Mental Status Patient Orientation: Normal For Age Transfers Functional [place] Measure 0=Not Assessed/NA 4=Minimal Assistance 1=Total Assistance 5=Supervision or Setup 2=Maximal Assistance 6=Modified [place] 3=Moderate Assistance 7=Complete IndependenceIRFPAI Quality Coding Scale 6 Independent with activity with or without an assistive device 5 Patient requires set up or clean up by helper. Patient completes activity by themselves 4 Supervision or touching assist (CGA). [place] provide cues , steadying assist 3 The helper provides less than half the effort to complete the activity 2 The helper provides more than half the effort to complete the activity 1 Dependent. The helper does all the effort to complete an activity 7 Patient refused to complete or attempt activity 9 The patient did not perform the activity before the current illness or injury 88 Not attempted due to Medical conditions or safety concerns Transfers (B, C, W/C) (FIM): 4 Scootin Sit to/from Stand: 4 Sit to Stand (QC): 3 Car Transfer (QC): 4 Weight Bearing Weight Bearing Restriction: Non Weight Bearing Location Restriction: L LE Gait Training Does the Patient Walk?: Yes Gait (FIM): 2 Distance (FIM): 6=507-66 ft Distance: 75' x 2 Walk 10 feet (QC): 3 Walk 50 ft with 2 Turns(QC): 3 Gait Level of Assist: 4 Gait Persons Needed: 1 Gait Assistive Device: FWW compliance with NWB left LE Exercises NuStep Minutes: 15 NuStep Workload: 5 (to increase/improve strength and functional mobility) Assessment Current Status: Excellent Progress PT Short Term Goals Short Term Goals Wheelchair Distance: 75' PT Plant Director Goals Plant Director Goals PT Plant Director Goals Time Frame: May 19, 2017 Transfers (B,C,W/C) (FIM): 6 Sit to Lying (QC): 5 Lying-Sitting on Side/Bed(QC): 5 Sit to Stand (QC): 5 Rollin Roll Left to Right (QC): 5 Chair/Xas-mg-Txvrt Xfer(QC): 5 Car Transfer (QC): 5 Does the Patient Walk: Yes Gait (FIM): 1 Gait distance (FIM): 1=up to 49 ft (45') Distance: 45' Walk 10 feet (QC): 5 Walk 10ft-Uneven Surface(QC): 5 Walk 50ft with 2 Turns (QC): 88 Walk 150 ft (QC): 88 Gait Level of Assist: 6 Gait Assistive Device: FWW Stairs (FIM): 2 # of Steps: 4 1 Step (curb) (QC): 5 4 Steps (QC): 4 12 Steps (QC): 88 Stairs Level Of Assist: 5 Picking up an Object (QC): 5 PT Plan Treatment/Plan Treatment Plan: Continue Plan of Care Treatment Plan: Bed Mobility, Education, Functional Activity Damien, Functional Strength, Group Therapy, Gait, Safety, Therapeutic Exercise, Transfers Treatment Duration: May 19, 2017 Frequency: At least 5-7 days/Wk (IRF) Estimated Hrs Per Day: 1.5 hours per day Patient and/or Family Agrees t: Yes Time/GCodes Time In: 1130 Time Out: 1200 Total Billed Treatment Time: 30 Total Billed Treatment 1 visit EX 15 min GT 15 min NICKY VALADEZ PT May 01, 2017 12:44
[2017-05-01 13:09] VITALS: BP 174/67
--- NOTE | 2017-05-01 13:17 | Physical Therapy Daily Note ---
PT Daily Note-Current Subjective Patient agrees to PT. Patient does c/o fatigue. Pain Numeric Pain Scale: 5-Moderate Pain Location: Left Location Body Site: Hip Pain Description: Acute Mental Status Patient Orientation: Normal For Age Transfers Functional [place] Measure 0=Not Assessed/NA 4=Minimal Assistance 1=Total Assistance 5=Supervision or Setup 2=Maximal Assistance 6=Modified [place] 3=Moderate Assistance 7=Complete IndependenceIRFPAI Quality Coding Scale 6 Independent with activity with or without an assistive device 5 Patient requires set up or clean up by helper. Patient completes activity by themselves 4 Supervision or touching assist (CGA). [place] provide cues , steadying assist 3 The helper provides less than half the effort to complete the activity 2 The helper provides more than half the effort to complete the activity 1 Dependent. The helper does all the effort to complete an activity 7 Patient refused to complete or attempt activity 9 The patient did not perform the activity before the current illness or injury 88 Not attempted due to Medical conditions or safety concerns Transfers (B, C, W/C) (FIM): 4 Scootin Sit to/from Stand: 4 Sit to Stand (QC): 3 Weight Bearing Weight Bearing Restriction: Non Weight Bearing Location Restriction: L LE Gait Training Does the Patient Walk?: Yes Gait (FIM): 2 Distance (FIM): 7=753-18 ft Distance: 75' x 4 Walk 10 feet (QC): 3 Walk 50 ft with 2 Turns(QC): 3 Gait Level of Assist: 4 Gait Persons Needed: 1 Gait Assistive Device: FWW Stair Training Stair Training: Handrails/: 1 handrail, uses walker Stairs (FIM): 1 #of Steps: 2 1 Step (curb) (QC): 2 Stairs: Pattern: Hops Level of Assist: 2 Patient is very unsafe performing stair training due to weakness with hopping up taller step (8") Assessment Patient voices concern with inability to perform stair training. PT reassured patient with increase in strengthening and mobility, patient may be able to perform. However, PT discussed with patient the possibility of spouse putting a temporary ramp for safety. PT Short Term Goals Short Term Goals Wheelchair Distance: 75' PT Retirement Goals Metal Dresser Goals PT Metal Dresser Goals Time Frame: May 19, 2017 Transfers (B,C,W/C) (FIM): 6 Sit to Lying (QC): 5 Lying-Sitting on Side/Bed(QC): 5 Sit to Stand (QC): 5 Rollin Roll Left to Right (QC): 5 Chair/Nbt-xi-Twlrk Xfer(QC): 5 Car Transfer (QC): 5 Does the Patient Walk: Yes Gait (FIM): 1 Gait distance (FIM): 1=up to 49 ft (45') Distance: 45' Walk 10 feet (QC): 5 Walk 10ft-Uneven Surface(QC): 5 Walk 50ft with 2 Turns (QC): 88 Walk 150 ft (QC): 88 Gait Level of Assist: 6 Gait Assistive Device: FWW Stairs (FIM): 2 # of Steps: 4 1 Step (curb) (QC): 5 4 Steps (QC): 4 12 Steps (QC): 88 Stairs Level Of Assist: 5 Picking up an Object (QC): 5 PT Plan Treatment/Plan Treatment Plan: Continue Plan of Care Treatment Plan: Bed Mobility, Education, Functional Activity Damien, Functional Strength, Group Therapy, Gait, Safety, Therapeutic Exercise, Transfers Treatment Duration: May 19, 2017 Frequency: At least 5-7 days/Wk (IRF) Estimated Hrs Per Day: 1.5 hours per day Patient and/or Family Agrees t: Yes Time/GCodes Time In: 1240 Time Out: 1310 Total Billed Treatment Time: 30 Total Billed Treatment 1 visit FA 15 min GT 15 min NICKY VALADEZ PT May 01, 2017 13:17
--- NOTE | 2017-05-01 14:21 | Occupational Ther Daily Note ---
OT Current Status-Daily Note Subjective Pt alert, sitting in recliner. Pt agreed to therapy. No c/o pain at this time. Mental Status/Objective Patient Orientation: Person, Place, Time, Situation Functional [place] Measure 0=Not Assessed/NA 4=Minimal Assistance 1=Total Assistance 5=Supervision or Setup 2=Maximal Assistance 6=Modified [place] 3=Moderate Assistance 7=Complete [place] ADL-Treatment Functional [place] Measure 0=Not Assessed/NA 4=Minimal Assistance 1=Total Assistance 5=Supervision or Setup 2=Maximal Assistance 6=Modified [place] 3=Moderate Assistance 7=Complete IndependenceIRFPAI Quality Coding Scale 6 Independent with activity with or without an assistive device 5 Patient requires set up or clean up by helper. Patient completes activity by themselves 4 Supervision or touching assist (CGA). [place] provide cues , steadying assist 3 The helper provides less than half the effort to complete the activity 2 The helper provides more than half the effort to complete the activity 1 Dependent. The helper does all the effort to complete an activity 7 Patient refused to complete or attempt activity 9 The patient did not perform the activity before the current illness or injury 88 Not attempted due to Medical conditions or safety concerns Other Treatment Pt completed UE strengthening and fine motor skills. 1# wt attached to each UE during table top activities. Pt demonstrated ability to reach, grasp and place items in designated areas with 1# wts, no difficulty. Pt demonstrated good fine motor skills during each task when manipulating objects by turning, placing and holding. After therapy, pt sitting in recliner with call light/ phone in reach. All needs met in room. OT Short Term Goals Short Term Goals Time Frame: May 02, 2017 Bathing(FIM): 4 Lower Body Dressing(FIM): 4 Toileting(FIM): 4 Toilet/Commode Transfer(FIM): 5 Shower Transfer(FIM): 4 Additional Short Term Goals: 1-Demonstrate ADL Tasks, 2-Verbalize Understanding , 3-ImproveStrength/Damien 1=Demonstrate adherence to instructed precautions during ADL tasks. 2=Patient will verbalize/demonstrate understanding of assistive devices/ modifications for ADL. 3=Patient will improve strength/tolerance for activity to enable patient to perform ADL's. OT Usp Goals Usp Goals Time Frame: May 16, 2017 Eating (FIM): 6 Eating (QC): 6 Groomin Oral Hygiene (QC): 6 Bathing(FIM): 5 Shower/Bathe Self (QC): 5 Upper Body Dressing(FIM): 5 Upper Body Dressing (QC): 5 Lower Body Dressing(FIM): 5 Lower Body Dressing (QC): 5 On/Off Footwear (QC): 5 Toileting(FIM): 6 Toilet/Commode Transfer(FIM): 6 Toilet/Commode Transfer (QC): 6 Shower Transfer(FIM): 5 Additional Goals: 1-Demonstrate ADL Tasks, 2-Verbalize Understanding, 3- ImproveStrength/Damien 1=Demonstrate adherence to instructed precautions during ADL tasks. 2=Patient will verbalize/demonstrate understanding of assistive devices/ modifications for ADL. 3=Patient will improve strength/tolerance for activity to enable patient to perform ADL's. OT Education/Plan Problem List/Assessment Pt to benefit from skilled OT intervention for ADL training, transfers, strengthening, adaptive equipment training, and home safety education to maximize level of function and allow safe return home. Discharge Recommendations Plan/Recommendations: Continue POC Treatment Plan/Plan of Care Patient would benefit from OT for education, treatment and training to promote independence in ADL's, mobility, safety and/or upper extremity function for ADL' s. Plan of Care: ADL Retraining, Functional Mobility, UE Funct Exercise/Act Treatment Duration: May 16, 2017 Frequency: At least 5-7 days/Wk (IRF) Estimated Hrs Per Day: 1.5 hours per day Agreement: Yes Rehab Potential: Good Time/GCodes Start Time: 13:10 Stop Time: 13:40 Total Time Billed (hr/min): 30 Billed Treatment Time 1 visit-EX 2 (30 min) MANJU CHAVIS May 01, 2017 14:20
[2017-05-01 16:36] VITALS: BP 134/46
[2017-05-01 17:04] VITALS: BP 142/63
--- NOTE | 2017-05-01 19:21 | Wound Care Progress Note ---
Subjective Subjective Subjective/Events-last exam The patient is a pleasant 81 year old female with a recent history of pressure injury to sacral area, associated with decreased mobility following a L hip fracture. The wound has improved markedly under care in the last 5 days, and appears to be a resolved Stage 1 pressure injury of sacrum. There is no open area at this time. I recommend continuing Alevyn dressing while in Rehab. PMH: HTN. Hip fracture. Review of Systems Date Seen by Provider: May 01, 2017 Time Seen by Provider: 19:30 Pulmonary: No Dyspnea Cardiovascular: No: Chest Pain Objective Exam Last Set of Vital Signs Vital Signs Date Time Temp Pulse Resp B/P (MAP) Pulse Ox O2 Delivery O2 Flow Rate FiO2 05/01/17 17:04 99.0 63 20 142/63 97 Room Air Capillary Refill : Less Than 3 Seconds I&O Intake and Output 04/30/17 23:59 Intake Total 1320 ml Balance 1320 ml Intake Oral 1320 ml # Voids 7 # Bowel Movements 1 General: Alert, No Acute Distress Skin: Other (A small area of peeling skin of sacral area, but no open wound.) Assessment/Plan Assessment/Plan Assessment/Plan 1. Stage 1 pressure ulcer, sacrum, resolved. 2. L hip fracture with diminished mobility, improving with current care. Plan: Continue Alevyn dressings every third day. NYDIA VOSS MD May 01, 2017 19:21
[2017-05-01] MEDS: ATORVASTATIN 10 MG (LIPITOR) TABLET PO SCH (20:22)
[2017-05-01] MEDS: FAMOTIDINE 20 MG (PEPCID) TABLET PO SCH (20:22)
[2017-05-01] MEDS: ENOXAPARIN 30 MG/0.3 ML (LOVENOX) SYR SC SCH (20:22)
--- NOTE | 2017-05-01 20:28 | PM & R (SOAP) Progress Note ---
Subjective Time Seen by Provider: 20:15 Subjective/Events-last exam Patient was seen in her room this eveing Patient Mod assist for transfers Objective Exam Last Set of Vital Signs Vital Signs Date Time Temp Pulse Resp B/P (MAP) Pulse Ox O2 Delivery O2 Flow Rate FiO2 05/01/17 17:04 99.0 63 20 142/63 97 Room Air Capillary Refill : Less Than 3 Seconds I&O Intake and Output 05/01/17 00:00 Intake Total 1320 ml Balance 1320 ml Intake Oral 1320 ml # Voids 7 # Bowel Movements 1 General: Alert, No Acute Distress HEENT: Atraumatic, PERRLA, EOMI, Mucous Memb Moist/[place] Neck: Supple, No JVD Lungs: Clear to Auscultation Heart: Regular Rate Abdomen: Normal Bowel Sounds, Soft, No Tenderness Extremities: Other (trace edema left ankle) Skin: Other (A small area of peeling skin of sacral area, but no open wound.) Neuro: Other (weakness proximal left leg) Assessment/Plan Assessment s/p subcapital femur frx left hip s/p perc pinning NWB LLE HTN controlled Hyponatremia-improving Hypokalemia Postop anmeia Plan Continue PT/OT Reconference 05-03-17 Recheck labs Replaced K-See orders KIYA PEREZ MD May 01, 2017 20:28
[2017-05-01] MEDS: HYDROcodone/APAP 7.5 MG/325 MG (LORTAB, LORCET PLUS) TABLET PO PRN (21:14)
[2017-05-02 05:02] VITALS: BP 128/63
[2017-05-02] MEDS: DILTIAZEM 30 MG (CARDIZEM) TAB PO SCH ×4 (08:22→21:07)
[2017-05-02] MEDS: DOCUSATE SODIUM 100 MG (COLACE) CAP PO SCH ×2 (08:22→21:07)
[2017-05-02] MEDS: TRIAMTERENE/HCTZ 75-50 (MAXZIDE,DYAZIDE) TABLET PO SCH (08:22)
--- NOTE | 2017-05-02 10:24 | PM & R (SOAP) Progress Note ---
Subjective Time Seen by Provider: 07:40 Subjective/Events-last exam Patient was seen in her room this AM Patient Min assist for transfers Appreciate DR Kincaid note Objective Exam Last Set of Vital Signs Vital Signs Date Time Temp Pulse Resp B/P (MAP) Pulse Ox O2 Delivery O2 Flow Rate FiO2 05/02/17 05:02 98.7 71 20 128/63 97 Room Air Capillary Refill : Less Than 3 Seconds I&O Intake and Output 05/02/17 00:00 Intake Total 760 ml Balance 760 ml Intake Oral 760 ml # Voids 6 # Bowel Movements 1 General: Alert, No Acute Distress HEENT: Atraumatic, PERRLA, EOMI, Mucous Memb Moist/[place] Neck: Supple, No JVD Lungs: Clear to Auscultation Heart: Regular Rate Abdomen: Normal Bowel Sounds, Soft, No Tenderness Extremities: Other (trace edema left ankle) Skin: Other (A small area of peeling skin of sacral area, but no open wound.) Neuro: Other (weakness proximal left leg) Assessment/Plan Assessment s/p subcapital femur frx left hip s/p perc pinning NWB LLE HTN controlled Hyponatremia-improving Hypokalemia-replacement provided Postop anmeia Resolved stage 1 pressure sore sacrum Plan Continue PT/OT Reconference tomorrow 05-03-17 Replaced K Recheck Labs see orders KIYA PEREZ MD May 02, 2017 10:24
--- NOTE | 2017-05-02 11:57 | Physical Therapy Daily Note ---
PT Daily Note-Current Subjective Patient has no c/o on this date. Pain Numeric Pain Scale: 3 Location: Left Location Body Site: Hip Pain Description: Ache Mental Status Patient Orientation: Normal For Age Transfers Functional [place] Measure 0=Not Assessed/NA 4=Minimal Assistance 1=Total Assistance 5=Supervision or Setup 2=Maximal Assistance 6=Modified [place] 3=Moderate Assistance 7=Complete IndependenceIRFPAI Quality Coding Scale 6 Independent with activity with or without an assistive device 5 Patient requires set up or clean up by helper. Patient completes activity by themselves 4 Supervision or touching assist (CGA). [place] provide cues , steadying assist 3 The helper provides less than half the effort to complete the activity 2 The helper provides more than half the effort to complete the activity 1 Dependent. The helper does all the effort to complete an activity 7 Patient refused to complete or attempt activity 9 The patient did not perform the activity before the current illness or injury 88 Not attempted due to Medical conditions or safety concerns Transfers (B, C, W/C) (FIM): 5 Scootin Sit to/from Stand: 5 Sit to Stand (QC): 4 Car Transfer (QC): 4 close SBA for safety with gait belt in place Weight Bearing Weight Bearing Restriction: Non Weight Bearing Location Restriction: L LE Gait Training Does the Patient Walk?: Yes Gait (FIM): 2 Distance (FIM): 8=314-20 ft Distance: 75' x 4 Walk 10 feet (QC): 4 Walk 50 ft with 2 Turns(QC): 4 Gait Level of Assist: 5 Gait Persons Needed: 1 Gait Assistive Device: FWW able to comply with NWB left LE Stair Training Stair Training: Handrails/: 2 handrails Stairs (FIM): 1 1 Step (curb) (QC): 3 Stairs: Pattern: Hops Level of Assist: 4 Exercises Seated Therapy Exercises: Ankle pumps, Long arc quads, Hip flexion Seated Reps: 25 (3 sets) NuStep Minutes: 10 NuStep Workload: 3 (to increase strength and functional mobility to ensure safe return to home with spouse and home health intervention) Assessment Current Status: Excellent Progress Patient continues to progress with treatment plan. PT Short Term Goals Short Term Goals Wheelchair Distance: 75' PT Fpc Goals Fpc Goals PT Fpc Goals Time Frame: May 19, 2017 Transfers (B,C,W/C) (FIM): 6 Sit to Lying (QC): 5 Lying-Sitting on Side/Bed(QC): 5 Sit to Stand (QC): 5 Rollin Roll Left to Right (QC): 5 Chair/Jqf-nk-Bykkw Xfer(QC): 5 Car Transfer (QC): 5 Does the Patient Walk: Yes Gait (FIM): 1 Gait distance (FIM): 1=up to 49 ft (45') Distance: 45' Walk 10 feet (QC): 5 Walk 10ft-Uneven Surface(QC): 5 Walk 50ft with 2 Turns (QC): 88 Walk 150 ft (QC): 88 Gait Level of Assist: 6 Gait Assistive Device: FWW Stairs (FIM): 2 # of Steps: 4 1 Step (curb) (QC): 5 4 Steps (QC): 4 12 Steps (QC): 88 Stairs Level Of Assist: 5 Picking up an Object (QC): 5 PT Plan Treatment/Plan Treatment Plan: Continue Plan of Care Treatment Plan: Bed Mobility, Education, Functional Activity Damien, Functional Strength, Group Therapy, Gait, Safety, Therapeutic Exercise, Transfers Treatment Duration: May 19, 2017 Frequency: At least 5-7 days/Wk (IRF) Estimated Hrs Per Day: 1.5 hours per day Patient and/or Family Agrees t: Yes Time/GCodes Time In: 1100 Time Out: 1200 Total Billed Treatment Time: 60 Total Billed Treatment 1 visit EX x 2 30 min GT x 2 30 min NICKY VALADEZ PT May 02, 2017 11:57
--- NOTE | 2017-05-02 12:46 | Occupational Ther Daily Note ---
OT Current Status-Daily Note Subjective Pt in bed, agrees to treatment. Pt has no c/o pain. Mental Status/Objective Functional [place] Measure 0=Not Assessed/NA 4=Minimal Assistance 1=Total Assistance 5=Supervision or Setup 2=Maximal Assistance 6=Modified [place] 3=Moderate Assistance 7=Complete [place] ADL-Treatment Pt supine to sit with SBA. Sit to stand with SBA. Gait to restroom with FWW with close supervision, NWB left LE. Transfer to toilet with SBA. Pt able to complete toileting hygiene and clothing management with SBA. Transfer to walk in shower with CGA using grab bars for safety. [place] clothing with SBA. Uses dressing stick to doff socks. Seated bathing completed using hand held shower. Upper body bathing completed with SBA. Pt able to wash bilateral upper legs, kirsten area, buttocks and right lower leg, but requires assist with left lower leg and foot. Don bra and pullover shirt with set up. Pt donned underwear and pants with close supervision for balance during standing for pant hike. Don right sock with SBA. Pt used sock aid to don left sock with SBA. Don shoes with minimal assistance using long shoe horn. Grooming tasks completed seated at sink with modified independence. Pt sitting in chair with needs met after session. Functional [place] Measure 0=Not Assessed/NA 4=Minimal Assistance 1=Total Assistance 5=Supervision or Setup 2=Maximal Assistance 6=Modified [place] 3=Moderate Assistance 7=Complete IndependenceIRFPAI Quality Coding Scale 6 Independent with activity with or without an assistive device 5 Patient requires set up or clean up by helper. Patient completes activity by themselves 4 Supervision or touching assist (CGA). [place] provide cues , steadying assist 3 The helper provides less than half the effort to complete the activity 2 The helper provides more than half the effort to complete the activity 1 Dependent. The helper does all the effort to complete an activity 7 Patient refused to complete or attempt activity 9 The patient did not perform the activity before the current illness or injury 88 Not attempted due to Medical conditions or safety concerns Grooming (FIM): 6 Oral Hygiene (QC): 6 Bathing (FIM): 4 Shower/Bathe Self (QC): 3 Upper Body (FIM): 5 Upper Body Dressing (QC): 5 Lower Body Dressing (FIM): 4 Lower Body Dressing (QC): 4 Toileting (FIM): 5 Toileting Hygiene (QC): 4 Toilet/Commode Transfer (FIM): 5 Toilet Transfer (QC): 4 Shower Transfer(FIM): 4 OT Short Term Goals Short Term Goals Time Frame: May 02, 2017 Bathing(FIM): 4 Lower Body Dressing(FIM): 4 Toileting(FIM): 4 Toilet/Commode Transfer(FIM): 5 Shower Transfer(FIM): 4 Additional Short Term Goals: 1-Demonstrate ADL Tasks, 2-Verbalize Understanding , 3-ImproveStrength/[place] 1=Demonstrate adherence to instructed precautions during ADL tasks. 2=Patient will verbalize/demonstrate understanding of assistive devices/ modifications for ADL. 3=Patient will improve strength/tolerance for activity to enable patient to perform ADL's. OT Car Park Attendant Goals Senior Living Goals Time Frame: May 16, 2017 Eating (FIM): 6 Eating (QC): 6 Groomin Oral Hygiene (QC): 6 Bathing(FIM): 5 Shower/Bathe Self (QC): 5 Upper Body Dressing(FIM): 5 Upper Body Dressing (QC): 5 Lower Body Dressing(FIM): 5 Lower Body Dressing (QC): 5 On/Off Footwear (QC): 5 Toileting(FIM): 6 Toilet/Commode Transfer(FIM): 6 Toilet/Commode Transfer (QC): 6 Shower Transfer(FIM): 5 Additional Goals: 1-Demonstrate ADL Tasks, 2-Verbalize Understanding, 3- ImproveStrength/Damien 1=Demonstrate adherence to instructed precautions during ADL tasks. 2=Patient will verbalize/demonstrate understanding of assistive devices/ modifications for ADL. 3=Patient will improve strength/tolerance for activity to enable patient to perform ADL's. OT Education/Plan Problem List/Assessment Pt to benefit from skilled OT intervention for ADL training, transfers, strengthening, adaptive equipment training, and home safety education to maximize level of function and allow safe return home. Discharge Recommendations Plan/Recommendations: Continue POC Treatment Plan/Plan of Care Patient would benefit from OT for education, treatment and training to promote independence in ADL's, mobility, safety and/or upper extremity function for ADL' s. Plan of Care: ADL Retraining, Functional Mobility, UE Funct Exercise/Act Treatment Duration: May 16, 2017 Frequency: At least 5-7 days/Wk (IRF) Estimated Hrs Per Day: 1.5 hours per day Agreement: Yes Rehab Potential: Good Time/GCodes Start Time: 08:00 Stop Time: 09:00 Total Time Billed (hr/min): 60 Billed Treatment Time 1 visit, ADLx4(60minutes) BERNARDO DAVIS OT May 02, 2017 12:46
--- NOTE | 2017-05-02 13:13 | Occupational Ther Daily Note ---
OT Current Status-Daily Note Subjective Pt sitting in chair, agrees to treatment. Mental Status/Objective Functional [place] Measure 0=Not Assessed/NA 4=Minimal Assistance 1=Total Assistance 5=Supervision or Setup 2=Maximal Assistance 6=Modified [place] 3=Moderate Assistance 7=Complete [place] ADL-Treatment Functional [place] Measure 0=Not Assessed/NA 4=Minimal Assistance 1=Total Assistance 5=Supervision or Setup 2=Maximal Assistance 6=Modified [place] 3=Moderate Assistance 7=Complete IndependenceIRFPAI Quality Coding Scale 6 Independent with activity with or without an assistive device 5 Patient requires set up or clean up by helper. Patient completes activity by themselves 4 Supervision or touching assist (CGA). [place] provide cues , steadying assist 3 The helper provides less than half the effort to complete the activity 2 The helper provides more than half the effort to complete the activity 1 Dependent. The helper does all the effort to complete an activity 7 Patient refused to complete or attempt activity 9 The patient did not perform the activity before the current illness or injury 88 Not attempted due to Medical conditions or safety concerns Other Treatment Pt to therapy gym via w/c. Pt performed bilateral UE exercises to promote increased strength needed for ADLs and transfers. Pt performed shoulder flexion , forward press, biceps curls, and wrist flex/ext x10 reps, 2 sets using 2# dowel. Rest breaks between exercises. Arm bike x10 minutes to increase overall strength and activity tolerance needed for functional tasks. Pt returned to room , transferred to chair with needs met after session. OT Short Term Goals Short Term Goals Time Frame: May 02, 2017 Bathing(FIM): 4 Lower Body Dressing(FIM): 4 Toileting(FIM): 4 Toilet/Commode Transfer(FIM): 5 Shower Transfer(FIM): 4 Additional Short Term Goals: 1-Demonstrate ADL Tasks, 2-Verbalize Understanding , 3-ImproveStrength/[place] 1=Demonstrate adherence to instructed precautions during ADL tasks. 2=Patient will verbalize/demonstrate understanding of assistive devices/ modifications for ADL. 3=Patient will improve strength/tolerance for activity to enable patient to perform ADL's. OT Mail Delivery Supervisor Goals Mail Delivery Supervisor Goals Time Frame: May 16, 2017 Eating (FIM): 6 Eating (QC): 6 Groomin Oral Hygiene (QC): 6 Bathing(FIM): 5 Shower/Bathe Self (QC): 5 Upper Body Dressing(FIM): 5 Upper Body Dressing (QC): 5 Lower Body Dressing(FIM): 5 Lower Body Dressing (QC): 5 On/Off Footwear (QC): 5 Toileting(FIM): 6 Toilet/Commode Transfer(FIM): 6 Toilet/Commode Transfer (QC): 6 Shower Transfer(FIM): 5 Additional Goals: 1-Demonstrate ADL Tasks, 2-Verbalize Understanding, 3- ImproveStrength/Damien 1=Demonstrate adherence to instructed precautions during ADL tasks. 2=Patient will verbalize/demonstrate understanding of assistive devices/ modifications for ADL. 3=Patient will improve strength/tolerance for activity to enable patient to perform ADL's. OT Education/Plan Problem List/Assessment Pt to benefit from skilled OT intervention for ADL training, transfers, strengthening, adaptive equipment training, and home safety education to maximize level of function and allow safe return home. Discharge Recommendations Plan/Recommendations: Continue POC Treatment Plan/Plan of Care Patient would benefit from OT for education, treatment and training to promote independence in ADL's, mobility, safety and/or upper extremity function for ADL' s. Plan of Care: ADL Retraining, Functional Mobility, UE Funct Exercise/Act Treatment Duration: May 16, 2017 Frequency: At least 5-7 days/Wk (IRF) Estimated Hrs Per Day: 1.5 hours per day Agreement: Yes Rehab Potential: Good Time/GCodes Start Time: 10:15 Stop Time: 10:45 Total Time Billed (hr/min): 30 Billed Treatment Time 1 visit, EXx2(30minutes) BERNARDO DAVIS OT May 02, 2017 13:13
--- NOTE | 2017-05-02 13:18 | Physical Therapy Daily Note ---
PT Daily Note-Current Subjective Patient agrees to PT. No c/o at this time. Pain Numeric Pain Scale: 3 Location: Left Location Body Site: Thigh Pain Description: Ache Mental Status Patient Orientation: Normal For Age Transfers Functional [place] Measure 0=Not Assessed/NA 4=Minimal Assistance 1=Total Assistance 5=Supervision or Setup 2=Maximal Assistance 6=Modified [place] 3=Moderate Assistance 7=Complete IndependenceIRFPAI Quality Coding Scale 6 Independent with activity with or without an assistive device 5 Patient requires set up or clean up by helper. Patient completes activity by themselves 4 Supervision or touching assist (CGA). [place] provide cues , steadying assist 3 The helper provides less than half the effort to complete the activity 2 The helper provides more than half the effort to complete the activity 1 Dependent. The helper does all the effort to complete an activity 7 Patient refused to complete or attempt activity 9 The patient did not perform the activity before the current illness or injury 88 Not attempted due to Medical conditions or safety concerns Transfers (B, C, W/C) (FIM): 4 Scootin Rollin Roll Left to Right (QC): 4 Supine to/from Sit: 5 Sit to/from Stand: 4 Sit to Lying (QC): 5 Sit to Stand (QC): 3 Chair/Xdr-mm-Ryglm Xfer(QC): 3 Bed to/from Chair: 3 Car Transfer (QC): 5 Weight Bearing Weight Bearing Restriction: Non Weight Bearing Location Restriction: L LE Gait Training Does the Patient Walk?: Yes Gait (FIM): 2 Distance (FIM): 6=709-78 ft Distance: 75' x 2 Walk 10 feet (QC): 3 Walk 50 ft with 2 Turns(QC): 3 Gait Level of Assist: 4 Gait Persons Needed: 1 Gait Assistive Device: FWW compliance with NWB left LE Exercises Supine Ex: Ankle pumps, Quad Set, Glut sets, Heel Slides, Hip abd/add Supine Reps: 25 (2 sets) Seated Therapy Exercises: Ankle pumps, Long arc quads Seated Reps: 25 Assessment Patient continues to progress and improve with mobility and strengthening. Patient desires to return to home soon with spouse. PT Short Term Goals Short Term Goals Wheelchair Distance: 75' PT Nursing Home Goals Nursing Home Goals PT Nursing Home Goals Time Frame: May 19, 2017 Transfers (B,C,W/C) (FIM): 6 Sit to Lying (QC): 5 Lying-Sitting on Side/Bed(QC): 5 Sit to Stand (QC): 5 Rollin Roll Left to Right (QC): 5 Chair/Xyj-yq-Zwsjl Xfer(QC): 5 Car Transfer (QC): 5 Does the Patient Walk: Yes Gait (FIM): 1 Gait distance (FIM): 1=up to 49 ft (45') Distance: 45' Walk 10 feet (QC): 5 Walk 10ft-Uneven Surface(QC): 5 Walk 50ft with 2 Turns (QC): 88 Walk 150 ft (QC): 88 Gait Level of Assist: 6 Gait Assistive Device: FWW Stairs (FIM): 2 # of Steps: 4 1 Step (curb) (QC): 5 4 Steps (QC): 4 12 Steps (QC): 88 Stairs Level Of Assist: 5 Picking up an Object (QC): 5 PT Plan Treatment/Plan Treatment Plan: Continue Plan of Care Treatment Plan: Bed Mobility, Education, Functional Activity Damien, Functional Strength, Group Therapy, Gait, Safety, Therapeutic Exercise, Transfers Treatment Duration: May 19, 2017 Frequency: At least 5-7 days/Wk (IRF) Estimated Hrs Per Day: 1.5 hours per day Patient and/or Family Agrees t: Yes Time/GCodes Time In: 1256 Time Out: 1326 Total Billed Treatment Time: 30 Total Billed Treatment 1 visit EX 20 min GT 10 min NICKY VALADEZ PT May 02, 2017 13:18
[2017-05-02 19:13] VITALS: BP 119/66
[2017-05-02] MEDS: ENOXAPARIN 30 MG/0.3 ML (LOVENOX) SYR SC SCH (20:14)
[2017-05-02] MEDS: FAMOTIDINE 20 MG (PEPCID) TABLET PO SCH (21:07)
[2017-05-02] MEDS: ATORVASTATIN 10 MG (LIPITOR) TABLET PO SCH (21:07)
[2017-05-02] MEDS: HYDROcodone/APAP 7.5 MG/325 MG (LORTAB, LORCET PLUS) TABLET PO PRN (21:08)
[2017-05-03 06:00] VITALS: BP 143/59
[2017-05-03 06:37] LABS: BASOPHILS % (AUTO) 1 % (0-10); EOSINOPHILS # (AUTO) 0.2 10^3/uL (0.0-0.3); EOSINOPHILS % (AUTO) 4 % (0-10); LYMPHOCYTES # (AUTO) 0.6 X 10^3 (1.0-4.0); LYMPHOCYTES % (AUTO) 11 % (12-44); MEAN CORPUSCULAR HEMOGLOBIN 31 PG (25-34); MEAN CORPUSCULAR HGB CONC 33 G/DL (32-36); MEAN CORPUSCULAR VOLUME 93 FL (80-99); MEAN PLATELET VOLUME 8.2 FL (7.4-10.4); MONOCYTES # (AUTO) 0.6 X 10^3 (0.0-1.0); MONOCYTES % (AUTO) 11 % (0-12); NEUTROPHILS # (AUTO) 3.9 X 10^3 (1.8-7.8); NEUTROPHILS % (AUTO) 74 % (42-75); PLATELET COUNT 436 10^3/uL (130-400); RED BLOOD COUNT 3.15 10^6/uL (4.35-5.85); RED CELL DISTRIBUTION WIDTH 14.3 % (10.0-14.5); WHITE BLOOD COUNT 5.3 10^3/uL (4.3-11.0)
[2017-05-03 07:06] LABS: ALANINE AMINOTRANSFERASE 16 U/L (0-55); ALBUMIN 3.4 GM/DL (3.2-4.5); ANION GAP 10 MMOL/L (5-14); ASPARTATE AMINO TRANSFERASE 22 U/L (5-34); BILIRUBIN,TOTAL 0.6 MG/DL (0.1-1.0); BLOOD UREA NITROGEN 18 MG/DL (7-18); BUN/CREATININE RATIO 29; CALCIUM 8.8 MG/DL (8.5-10.1); CARBON DIOXIDE 27 MMOL/L (21-32); CHLORIDE 94 MMOL/L (98-107); CREATININE SERUM 0.63 MG/DL (0.60-1.30); GFR ESTIMATED > 60; GLUCOSE 87 MG/DL (70-105); SODIUM 131 MMOL/L (135-145)
[2017-05-03] MEDS: DILTIAZEM 30 MG (CARDIZEM) TAB PO SCH ×4 (08:14→20:39)
[2017-05-03] MEDS: TRIAMTERENE/HCTZ 75-50 (MAXZIDE,DYAZIDE) TABLET PO SCH (08:14)
[2017-05-03] MEDS: DOCUSATE SODIUM 100 MG (COLACE) CAP PO SCH ×2 (08:14→20:39)
[2017-05-03] MEDS: HYDROcodone/APAP 7.5 MG/325 MG (LORTAB, LORCET PLUS) TABLET PO PRN ×2 (08:16→21:48)
--- NOTE | 2017-05-03 09:31 | PM & R (SOAP) Progress Note ---
Subjective Time Seen by Provider: 08:05 Subjective/Events-last exam Patient was seen in her room this AM CGA for gait with WW Min assist for transfers Objective Exam Last Set of Vital Signs Vital Signs Date Time Temp Pulse Resp B/P (MAP) Pulse Ox O2 Delivery O2 Flow Rate FiO2 05/03/17 06:00 97.8 68 18 143/59 97 Room Air Capillary Refill : Less Than 3 Seconds I&O Intake and Output 05/03/17 00:00 Intake Total 850 ml Balance 850 ml Intake Oral 850 ml # Voids 7 # Bowel Movements 3 General: Alert, No Acute Distress HEENT: Atraumatic, PERRLA, EOMI, Mucous Memb Moist/[place] Neck: Supple, No JVD Lungs: Clear to Auscultation Heart: Regular Rate Abdomen: Normal Bowel Sounds, Soft, No Tenderness Extremities: Other (trace edema left ankle) Skin: Other (A small area of peeling skin of sacral area, but no open wound.) Neuro: Other (weakness proximal left leg) Results Lab Laboratory Tests 05/03/17 06:24: White Blood Count 5.3, Red Blood Count 3.15L, Hemoglobin 9.7L, Hematocrit 29L, Mean Corpuscular Volume 93, Mean Corpuscular Hemoglobin 31, Mean Corpuscular Hemoglobin Concent 33, Red Cell Distribution Width 14.3, Platelet Count 436H, Mean Platelet Volume 8.2, Neutrophils (%) (Auto) 74, Lymphocytes (%) (Auto) 11L , Monocytes (%) (Auto) 11, Eosinophils (%) (Auto) 4, Basophils (%) (Auto) 1, Neutrophils # (Auto) 3.9, Lymphocytes # (Auto) 0.6L, Monocytes # (Auto) 0.6, Eosinophils # (Auto) 0.2, Basophils # (Auto) 0.0, Sodium Level 131L, Potassium Level 4.0, Chloride Level 94L, Carbon Dioxide Level 27, Anion Gap 10, Blood Urea Nitrogen 18, Creatinine 0.63, Estimat Glomerular Filtration Rate > 60, BUN/ Creatinine Ratio 29, Glucose Level 87, Calcium Level 8.8, Total Bilirubin 0.6, Aspartate Amino Transf (AST/SGOT) 22, Alanine Aminotransferase (ALT/SGPT) 16, Alkaline Phosphatase 103, Total Protein 6.0L, Albumin 3.4 Assessment/Plan Assessment s/p subcapital femur frx left hip s/p perc pinning NWB LLE HTN controlled Hyponatremia-improving Hypokalemia-replacement provided Postop anmeia Resolved stage 1 pressure sore sacrum Plan Continue PT/OT Replaced K Rechecked Labs Team Conference later today See report for full functional update and POC and KIYA MCKEON MD May 03, 2017 09:31
--- NOTE | 2017-05-03 11:00 | Physical Therapy Daily Note ---
PT Daily Note-Current Subjective Pt. agrees to Rx. States she is still concerned about making it over a threshhold at home and wants to stay up to another week. No c/o pain. Pain Numeric Pain Scale: 0-No Pain Appearance very vigilant about NWBing on left, wont even sit left foot on floor while sitting in chair. Pt. is very thin but left hip greater trochanter area very large Mental Status Patient Orientation: Normal For Age Transfers Functional [place] Measure 0=Not Assessed/NA 4=Minimal Assistance 1=Total Assistance 5=Supervision or Setup 2=Maximal Assistance 6=Modified [place] 3=Moderate Assistance 7=Complete IndependenceIRFPAI Quality Coding Scale 6 Independent with activity with or without an assistive device 5 Patient requires set up or clean up by helper. Patient completes activity by themselves 4 Supervision or touching assist (CGA). [place] provide cues , steadying assist 3 The helper provides less than half the effort to complete the activity 2 The helper provides more than half the effort to complete the activity 1 Dependent. The helper does all the effort to complete an activity 7 Patient refused to complete or attempt activity 9 The patient did not perform the activity before the current illness or injury 88 Not attempted due to Medical conditions or safety concerns Transfers (B, C, W/C) (FIM): 6 Scootin Rollin Supine to/from Sit: 6 Sit to/from Stand: 6 Weight Bearing Weight Bearing Restriction: Non Weight Bearing Location Restriction: L LE maintains very well Gait Training Does the Patient Walk?: Yes Gait (FIM): 5 Distance (FIM): 3=150 ft (x2) Gait Level of Assist: 5 Gait Persons Needed: 1 Gait Assistive Device: FWW no LOB, very good NWB, shows great safety management of FWW with gait Stair Training Stair Training: Handrails/: uses walker Stairs (FIM): 2 #of Steps: 4 Stairs: Pattern: Hops Level of Assist: 4 Exercises Supine Ex: Bridging, Ankle pumps, Quad Set, Rolling, Glut sets, Heel Slides, Short Arc Quads, Scooting, Straight leg raise, Hip abd/add Supine Reps: 20 (bilat) Seated Therapy Exercises: Ankle pumps, Sit to stand, Long arc quads, Hip abd/ add Seated Reps: 15 Treatments toileted indep with all Assessment Current Status: Excellent Progress strong, no LOB, maintains NWB well, doing well on stairs PT Short Term Goals Short Term Goals Wheelchair Distance: 75' PT Environmental Field Office Manager Goals Environmental Field Office Manager Goals PT Environmental Field Office Manager Goals Time Frame: May 19, 2017 Transfers (B,C,W/C) (FIM): 6 Sit to Lying (QC): 5 Lying-Sitting on Side/Bed(QC): 5 Sit to Stand (QC): 5 Rollin Roll Left to Right (QC): 5 Chair/Doa-in-Xdqrk Xfer(QC): 5 Car Transfer (QC): 5 Does the Patient Walk: Yes Gait (FIM): 1 Gait distance (FIM): 1=up to 49 ft (45') Distance: 45' Walk 10 feet (QC): 5 Walk 10ft-Uneven Surface(QC): 5 Walk 50ft with 2 Turns (QC): 88 Walk 150 ft (QC): 88 Gait Level of Assist: 6 Gait Assistive Device: FWW Stairs (FIM): 2 # of Steps: 4 1 Step (curb) (QC): 5 4 Steps (QC): 4 12 Steps (QC): 88 Stairs Level Of Assist: 5 Picking up an Object (QC): 5 PT Plan Treatment/Plan Treatment Plan: Continue Plan of Care Treatment Plan: Bed Mobility, Education, Functional Activity Damien, Functional Strength, Group Therapy, Gait, Safety, Therapeutic Exercise, Transfers Treatment Duration: May 19, 2017 Frequency: At least 5-7 days/Wk (IRF) Estimated Hrs Per Day: 1.5 hours per day Patient and/or Family Agrees t: Yes Safety Risks/Education Patient Education: Gait Training, Transfer Techniques, Steps, Issued Written HEP Teaching Recipient: Patient Teaching Methods: Demonstration, Discussion Response to Teaching: Verbalize Understanding, Return Demonstration, Reinforcement Needed Time/GCodes Time In: 1000 Time Out: 1100 Total Billed Treatment Time: 60 Total Billed Treatment 1GT30m,EX15m,FA15m G Codes Necessary: PATSY Membreno TEMPLATE CLERK May 03, 2017 11:00
--- NOTE | 2017-05-03 13:41 | Occupational Ther Daily Note ---
OT Current Status-Daily Note Subjective Pt in bed, agrees to treatment. Mental Status/Objective Functional [place] Measure 0=Not Assessed/NA 4=Minimal Assistance 1=Total Assistance 5=Supervision or Setup 2=Maximal Assistance 6=Modified [place] 3=Moderate Assistance 7=Complete [place] ADL-Treatment Pt states she doesn't want to shower, but would like to get cleaned up and dressed. Supine to sit with modified independence. Pt completed partial sponge bath while seated EOB. Pt donned bra and shirt with set up. Pt donned underwear and pants with SBA for balance during pant hike. Assist to don KONRAD hose. Pt able to don socks, but requires minimal assistance to don shoes. Gait to restroom with FWW, NWB left LE. Grooming tasks completed seated at sink. Pt brushed teeth and combed hair with modified independence while seated. Toilet transfer completed with SBA. Pt able to complete toileting hygiene and clothing management with SBA. Transfer to chair with SBA. Functional [place] Measure 0=Not Assessed/NA 4=Minimal Assistance 1=Total Assistance 5=Supervision or Setup 2=Maximal Assistance 6=Modified [place] 3=Moderate Assistance 7=Complete IndependenceIRFPAI Quality Coding Scale 6 Independent with activity with or without an assistive device 5 Patient requires set up or clean up by helper. Patient completes activity by themselves 4 Supervision or touching assist (CGA). [place] provide cues , steadying assist 3 The helper provides less than half the effort to complete the activity 2 The helper provides more than half the effort to complete the activity 1 Dependent. The helper does all the effort to complete an activity 7 Patient refused to complete or attempt activity 9 The patient did not perform the activity before the current illness or injury 88 Not attempted due to Medical conditions or safety concerns Grooming (FIM): 6 Oral Hygiene (QC): 6 Upper Body (FIM): 5 Upper Body Dressing (QC): 5 Lower Body Dressing (FIM): 4 Toileting (FIM): 5 Toileting Hygiene (QC): 4 Toilet/Commode Transfer (FIM): 5 Toilet Transfer (QC): 4 Other Treatment Pt completed bilateral UE exercises to promote increase strength needed for ADLs and transfers. Pt performed shoulder flexion, abduction, biceps curls, and triceps extension exercises x15 reps with moderate resistance (red) theraband. Rest breaks between exercises. Pt sitting in chair with needs met after session. OT Short Term Goals Short Term Goals Time Frame: May 02, 2017 Bathing(FIM): 4 Lower Body Dressing(FIM): 4 Toileting(FIM): 4 Toilet/Commode Transfer(FIM): 5 Shower Transfer(FIM): 4 Additional Short Term Goals: 1-Demonstrate ADL Tasks, 2-Verbalize Understanding , 3-ImproveStrength/Damien 1=Demonstrate adherence to instructed precautions during ADL tasks. 2=Patient will verbalize/demonstrate understanding of assistive devices/ modifications for ADL. 3=Patient will improve strength/tolerance for activity to enable patient to perform ADL's. OT Alumni Secretary Goals Correction Goals Time Frame: May 16, 2017 Eating (FIM): 6 Eating (QC): 6 Groomin Oral Hygiene (QC): 6 Bathing(FIM): 5 Shower/Bathe Self (QC): 5 Upper Body Dressing(FIM): 5 Upper Body Dressing (QC): 5 Lower Body Dressing(FIM): 5 Lower Body Dressing (QC): 5 On/Off Footwear (QC): 5 Toileting(FIM): 6 Toilet/Commode Transfer(FIM): 6 Toilet/Commode Transfer (QC): 6 Shower Transfer(FIM): 5 Additional Goals: 1-Demonstrate ADL Tasks, 2-Verbalize Understanding, 3- ImproveStrength/Damien 1=Demonstrate adherence to instructed precautions during ADL tasks. 2=Patient will verbalize/demonstrate understanding of assistive devices/ modifications for ADL. 3=Patient will improve strength/tolerance for activity to enable patient to perform ADL's. OT Education/Plan Problem List/Assessment Pt to benefit from skilled OT intervention for ADL training, transfers, strengthening, adaptive equipment training, and home safety education to maximize level of function and allow safe return home. Discharge Recommendations Plan/Recommendations: Continue POC Treatment Plan/Plan of Care Patient would benefit from OT for education, treatment and training to promote independence in ADL's, mobility, safety and/or upper extremity function for ADL' s. Plan of Care: ADL Retraining, Functional Mobility, UE Funct Exercise/Act Treatment Duration: May 16, 2017 Frequency: At least 5-7 days/Wk (IRF) Estimated Hrs Per Day: 1.5 hours per day Agreement: Yes Rehab Potential: Good Time/GCodes Start Time: 09:00 Stop Time: 10:00 Total Time Billed (hr/min): 60 Billed Treatment Time 1 visit, ADLx3(45minutes), EX(15minutes) BERNARDO DAVIS OT May 03, 2017 13:41
--- NOTE | 2017-05-03 14:08 | Occupational Ther Daily Note ---
OT Current Status-Daily Note Subjective Pt sitting in chair, agrees to treatment. Mental Status/Objective Functional [place] Measure 0=Not Assessed/NA 4=Minimal Assistance 1=Total Assistance 5=Supervision or Setup 2=Maximal Assistance 6=Modified [place] 3=Moderate Assistance 7=Complete [place] ADL-Treatment Functional [place] Measure 0=Not Assessed/NA 4=Minimal Assistance 1=Total Assistance 5=Supervision or Setup 2=Maximal Assistance 6=Modified [place] 3=Moderate Assistance 7=Complete IndependenceIRFPAI Quality Coding Scale 6 Independent with activity with or without an assistive device 5 Patient requires set up or clean up by helper. Patient completes activity by themselves 4 Supervision or touching assist (CGA). [place] provide cues , steadying assist 3 The helper provides less than half the effort to complete the activity 2 The helper provides more than half the effort to complete the activity 1 Dependent. The helper does all the effort to complete an activity 7 Patient refused to complete or attempt activity 9 The patient did not perform the activity before the current illness or injury 88 Not attempted due to Medical conditions or safety concerns Other Treatment Pt sit to stand with supervision. Gait to therapy gym with LINDSAY, SG left LE. Pt completed tabletop peg activity with bilateral UE with 1# weights in place to increase strength and coordination.. Pt completed arm bike activity [id number] to increase overall strength and activity tolerance needed for functional task completion. Pt completed task with minimal resistance and slow pace. No rest breaks needed. Pt returned to room via w/c. Transferred to chair with supervision with FWW. Pt sitting in chair with needs met after session. OT Short Term Goals Short Term Goals Time Frame: May 02, 2017 Bathing(FIM): 4 Lower Body Dressing(FIM): 4 Toileting(FIM): 4 Toilet/Commode Transfer(FIM): 5 Shower Transfer(FIM): 4 Additional Short Term Goals: 1-Demonstrate ADL Tasks, 2-Verbalize Understanding , 3-ImproveStrength/Damien 1=Demonstrate adherence to instructed precautions during ADL tasks. 2=Patient will verbalize/demonstrate understanding of assistive devices/ modifications for ADL. 3=Patient will improve strength/tolerance for activity to enable patient to perform ADL's. OT Document Restorer Goals Assisted Goals Time Frame: May 16, 2017 Eating (FIM): 6 Eating (QC): 6 Groomin Oral Hygiene (QC): 6 Bathing(FIM): 5 Shower/Bathe Self (QC): 5 Upper Body Dressing(FIM): 5 Upper Body Dressing (QC): 5 Lower Body Dressing(FIM): 5 Lower Body Dressing (QC): 5 On/Off Footwear (QC): 5 Toileting(FIM): 6 Toilet/Commode Transfer(FIM): 6 Toilet/Commode Transfer (QC): 6 Shower Transfer(FIM): 5 Additional Goals: 1-Demonstrate ADL Tasks, 2-Verbalize Understanding, 3- ImproveStrength/Damien 1=Demonstrate adherence to instructed precautions during ADL tasks. 2=Patient will verbalize/demonstrate understanding of assistive devices/ modifications for ADL. 3=Patient will improve strength/tolerance for activity to enable patient to perform ADL's. OT Education/Plan Problem List/Assessment Pt to benefit from skilled OT intervention for ADL training, transfers, strengthening, adaptive equipment training, and home safety education to maximize level of function and allow safe return home. Discharge Recommendations Plan/Recommendations: Continue POC Treatment Plan/Plan of Care Patient would benefit from OT for education, treatment and training to promote independence in ADL's, mobility, safety and/or upper extremity function for ADL' s. Plan of Care: ADL Retraining, Functional Mobility, UE Funct Exercise/Act Treatment Duration: May 16, 2017 Frequency: At least 5-7 days/Wk (IRF) Estimated Hrs Per Day: 1.5 hours per day Agreement: Yes Rehab Potential: Good Time/GCodes Start Time: 11:30 Stop Time: 12:00 Total Time Billed (hr/min): 30 Billed Treatment Time 1 visit, EXx2(30minutes) BERNARDO DAVIS OT May 03, 2017 14:08
--- NOTE | 2017-05-03 14:30 | Physical Therapy Daily Note ---
PT Daily Note-Current Subjective Pt. states her is easing her mind about going home and having to go up and over the threshhold. pt. states her is not well enough to help her over but he says his golf buddies will help if she needs help. Pt. feels confident about this. Pt. states she is getting tired this afternoon and will be ready to lay down in bed after this Rx. Pain Numeric Pain Scale: 0-No Pain Mental Status Patient Orientation: Normal For Age Transfers Functional [place] Measure 0=Not Assessed/NA 4=Minimal Assistance 1=Total Assistance 5=Supervision or Setup 2=Maximal Assistance 6=Modified [place] 3=Moderate Assistance 7=Complete IndependenceIRFPAI Quality Coding Scale 6 Independent with activity with or without an assistive device 5 Patient requires set up or clean up by helper. Patient completes activity by themselves 4 Supervision or touching assist (CGA). [place] provide cues , steadying assist 3 The helper provides less than half the effort to complete the activity 2 The helper provides more than half the effort to complete the activity 1 Dependent. The helper does all the effort to complete an activity 7 Patient refused to complete or attempt activity 9 The patient did not perform the activity before the current illness or injury 88 Not attempted due to Medical conditions or safety concerns all TRFs bed and chair Mod I Weight Bearing Weight Bearing Restriction: Non Weight Bearing Location Restriction: L LE Gait Training Gait Assistive Device: FWW 160ft, 100ft, 50 ft, many turns, no LOB maintaining NWB LLE Stair Training pt. hopped over pink step with FWW x 6 up 6 down with 2 melting episodes requiring min to mod assist for recovery Assessment Current Status: Good Progress fatigued this afternoon PT Short Term Goals Short Term Goals Wheelchair Distance: 75' PT Automation Engineering Technician Goals Automation Engineering Technician Goals PT Skilled Nursing Goals Time Frame: May 19, 2017 Transfers (B,C,W/C) (FIM): 6 Sit to Lying (QC): 5 Lying-Sitting on Side/Bed(QC): 5 Sit to Stand (QC): 5 Rollin Roll Left to Right (QC): 5 Chair/[id number]-Tlmvv Xfer(QC): 5 Car Transfer (QC): 5 Does the Patient Walk: Yes Gait (FIM): 1 Gait distance (FIM): 1=up to 49 ft (45') Distance: 45' Walk 10 feet (QC): 5 Walk 10ft-Uneven Surface(QC): 5 Walk 50ft with 2 Turns (QC): 88 Walk 150 ft (QC): 88 Gait Level of Assist: 6 Gait Assistive Device: FWW Stairs (FIM): 2 # of Steps: 4 1 Step (curb) (QC): 5 4 Steps (QC): 4 12 Steps (QC): 88 Stairs Level Of Assist: 5 Picking up an Object (QC): 5 PT Plan Treatment/Plan Treatment Plan: Continue Plan of Care Treatment Plan: Bed Mobility, Education, Functional Activity Damien, Functional Strength, Group Therapy, Gait, Safety, Therapeutic Exercise, Transfers Treatment Duration: May 19, 2017 Frequency: At least 5-7 days/Wk (IRF) Estimated Hrs Per Day: 1.5 hours per day Patient and/or Family Agrees t: Yes Safety Risks/Education Patient Education: Gait Training, Transfer Techniques, Steps Teaching Recipient: Patient Teaching Methods: Demonstration, Discussion Response to Teaching: Verbalize Understanding, Return Demonstration, Reinforcement Needed Time/GCodes Time In: 1400 Time Out: 1430 Total Billed Treatment Time: 30 Total Billed Treatment 1,GT17,FA13 G Codes Necessary: PATSY Membreno INSPECTOR WREATH May 03, 2017 14:30
[2017-05-03] MEDS: IRON POLYSAC 150 MG CAP (NIFEREX) PO SCH (16:58)
[2017-05-03 18:18] VITALS: BP 138/64
[2017-05-03] MEDS: FAMOTIDINE 20 MG (PEPCID) TABLET PO SCH (20:39)
[2017-05-03] MEDS: ATORVASTATIN 10 MG (LIPITOR) TABLET PO SCH (20:39)
[2017-05-03] MEDS: ENOXAPARIN 30 MG/0.3 ML (LOVENOX) SYR SC SCH (20:39)
[2017-05-04] MEDS: HYDROcodone/APAP 7.5 MG/325 MG (LORTAB, LORCET PLUS) TABLET PO PRN ×2 (05:21→21:31)
[2017-05-04 05:49] VITALS: BP 127/64
[2017-05-04] MEDS: IRON POLYSAC 150 MG CAP (NIFEREX) PO SCH ×2 (06:44→17:38)
--- NOTE | 2017-05-04 07:26 | PM & R (SOAP) Progress Note ---
Subjective Time Seen by Provider: 07:10 Subjective/Events-last exam Patient was seen in her room this AM serum NA low-131 Patient Modified Independent for transfers Completed course of antibiotice for uti Objective Exam Last Set of Vital Signs Vital Signs Date Time Temp Pulse Resp B/P (MAP) Pulse Ox O2 Delivery O2 Flow Rate FiO2 05/04/17 05:49 97.9 71 18 127/64 98 Room Air Capillary Refill : Less Than 3 Seconds I&O Intake and Output 05/04/17 00:00 Intake Total 830 ml Balance 830 ml Intake Oral 830 ml # Voids 7 # Bowel Movements 2 General: Alert, No Acute Distress HEENT: Atraumatic, PERRLA, EOMI, Mucous Memb Moist/[place] Neck: Supple, No JVD Lungs: Clear to Auscultation Heart: Regular Rate Abdomen: Normal Bowel Sounds, Soft, No Tenderness Extremities: Other (trace edema left ankle) Skin: Other (A small area of peeling skin of sacral area, but no open wound.) Neuro: Other (weakness proximal left leg) Results Lab Laboratory Tests 05/03/17 06:24: White Blood Count 5.3, Red Blood Count 3.15L, Hemoglobin 9.7L, Hematocrit 29L, Mean Corpuscular Volume 93, Mean Corpuscular Hemoglobin 31, Mean Corpuscular Hemoglobin Concent 33, Red Cell Distribution Width 14.3, Platelet Count 436H, Mean Platelet Volume 8.2, Neutrophils (%) (Auto) 74, Lymphocytes (%) (Auto) 11L , Monocytes (%) (Auto) 11, Eosinophils (%) (Auto) 4, Basophils (%) (Auto) 1, Neutrophils # (Auto) 3.9, Lymphocytes # (Auto) 0.6L, Monocytes # (Auto) 0.6, Eosinophils # (Auto) 0.2, Basophils # (Auto) 0.0, Sodium Level 131L, Potassium Level 4.0, Chloride Level 94L, Carbon Dioxide Level 27, Anion Gap 10, Blood Urea Nitrogen 18, Creatinine 0.63, Estimat Glomerular Filtration Rate > 60, BUN/ Creatinine Ratio 29, Glucose Level 87, Calcium Level 8.8, Total Bilirubin 0.6, Aspartate Amino Transf (AST/SGOT) 22, Alanine Aminotransferase (ALT/SGPT) 16, Alkaline Phosphatase 103, Total Protein 6.0L, Albumin 3.4 Assessment/Plan Assessment s/p subcapital femur frx left hip s/p perc pinning NWB LLE HTN controlled Hyponatremia-unimproved Hypokalemia-replacement provided Postop anemia Resolved stage 1 pressure sore sacrum UTI treated Plan Continue PT/OT Replaced K Rechecked Labs Team Conference held yesterday See report for full functional update aand POC and elos F/u re rx for hyponatremia KIYA PEREZ MD May 04, 2017 07:25
--- NOTE | 2017-05-04 07:49 | Occupational Ther Daily Note ---
OT Current Status-Daily Note Subjective Pt alert, lying in bed. Pt agreed to therapy. No c/o pain at this time. Mental Status/Objective Patient Orientation: Person, Place, Time, Situation Functional [place] Measure 0=Not Assessed/NA 4=Minimal Assistance 1=Total Assistance 5=Supervision or Setup 2=Maximal Assistance 6=Modified [place] 3=Moderate Assistance 7=Complete [place] ADL-Treatment Pt agreed to shower this am. Pt was able to go from supine to sitting EOB with mod I using bed rails and HOB elevated. Pt then used FWW with CGA to retrieve clothing from closet, 1 LOB. Pt transported clothing to bathroom with FWW. Pt transferred to toilet with SBA and was able to complete hygiene with close supervision while pt used grabbar for stability. Pt transferred into shower using FWW, grabbar and shower bench with CGA. Pt was able to complete bathing using grabbar, hand held shower and shower bench with SBA when cleansing buttocks/kirsten area. Pt was able to dry self, SBA when drying buttocks/kirsten area. Pt able to complete upper body dressing. SBA when hiking pants over hips. Pt using AE for donning socks and shoes. Pt sitting in recliner to eat breakfast. Pt was able to set self up to eat with regular utensils. After therapy, pt sitting in recliner with call light/phone in reach. All needs met in room. Functional [place] Measure 0=Not Assessed/NA 4=Minimal Assistance 1=Total Assistance 5=Supervision or Setup 2=Maximal Assistance 6=Modified [place] 3=Moderate Assistance 7=Complete IndependenceIRFPAI Quality Coding Scale 6 Independent with activity with or without an assistive device 5 Patient requires set up or clean up by helper. Patient completes activity by themselves 4 Supervision or touching assist (CGA). [place] provide cues , steadying assist 3 The helper provides less than half the effort to complete the activity 2 The helper provides more than half the effort to complete the activity 1 Dependent. The helper does all the effort to complete an activity 7 Patient refused to complete or attempt activity 9 The patient did not perform the activity before the current illness or injury 88 Not attempted due to Medical conditions or safety concerns Eating (FIM): 6 Eating (QC): 6 Grooming (FIM): 6 Oral Hygiene (QC): 6 Bathing (FIM): 5 Bathing Location: L Arm, R Arm, L Upper Leg, R Upper Leg, L Lower Leg ( including foot), R Lower Leg (including foot), Chest, Abdomen, Buttocks, Perineal Area Shower/Bathe Self (QC): 4 Upper Body (FIM): 5 Upper Body Dressing (QC): 5 Lower Body Dressing (FIM): 5 Lower Body Dressing (QC): 4 On/Off Footwear (QC): 5 Toileting (FIM): 5 Toileting Hygiene (QC): 4 Transfers (B, C, W/C) (FIM): 5 Toilet/Commode Transfer (FIM): 5 Toilet Transfer (QC): 4 Shower Transfer(FIM): 5 OT Short Term Goals Short Term Goals Time Frame: May 02, 2017 Bathing(FIM): 4 Lower Body Dressing(FIM): 4 Toileting(FIM): 4 Toilet/Commode Transfer(FIM): 5 Shower Transfer(FIM): 4 Additional Short Term Goals: 1-Demonstrate ADL Tasks, 2-Verbalize Understanding , 3-ImproveStrength/Damien 1=Demonstrate adherence to instructed precautions during ADL tasks. 2=Patient will verbalize/demonstrate understanding of assistive devices/ modifications for ADL. 3=Patient will improve strength/tolerance for activity to enable patient to perform ADL's. OT Application Specialist Goals Halfway Goals Time Frame: May 16, 2017 Eating (FIM): 6 Eating (QC): 6 Groomin Oral Hygiene (QC): 6 Bathing(FIM): 5 Shower/Bathe Self (QC): 5 Upper Body Dressing(FIM): 5 Upper Body Dressing (QC): 5 Lower Body Dressing(FIM): 5 Lower Body Dressing (QC): 5 On/Off Footwear (QC): 5 Toileting(FIM): 6 Toilet/Commode Transfer(FIM): 6 Toilet/Commode Transfer (QC): 6 Shower Transfer(FIM): 5 Additional Goals: 1-Demonstrate ADL Tasks, 2-Verbalize Understanding, 3- ImproveStrength/Damien 1=Demonstrate adherence to instructed precautions during ADL tasks. 2=Patient will verbalize/demonstrate understanding of assistive devices/ modifications for ADL. 3=Patient will improve strength/tolerance for activity to enable patient to perform ADL's. OT Education/Plan Problem List/Assessment Pt to benefit from skilled OT intervention for ADL training, transfers, strengthening, adaptive equipment training, and home safety education to maximize level of function and allow safe return home. Discharge Recommendations Plan/Recommendations: Continue POC Treatment Plan/Plan of Care Patient would benefit from OT for education, treatment and training to promote independence in ADL's, mobility, safety and/or upper extremity function for ADL' s. Plan of Care: ADL Retraining, Functional Mobility, UE Funct Exercise/Act Treatment Duration: May 16, 2017 Frequency: At least 5-7 days/Wk (IRF) Estimated Hrs Per Day: 1.5 hours per day Agreement: Yes Rehab Potential: Good Time/GCodes Start Time: 07:00 Stop Time: 08:00 Total Time Billed (hr/min): 60 Billed Treatment Time 1 visit-ADL 4 (60 min) MANJU CHAVIS May 04, 2017 07:49
[2017-05-04] MEDS: DILTIAZEM 30 MG (CARDIZEM) TAB PO SCH ×4 (08:32→20:18)
[2017-05-04] MEDS: TRIAMTERENE/HCTZ 75-50 (MAXZIDE,DYAZIDE) TABLET PO SCH (08:32)
[2017-05-04] MEDS: DOCUSATE SODIUM 100 MG (COLACE) CAP PO SCH ×3 (08:32→20:18)
--- NOTE | 2017-05-04 10:08 | Physical Therapy Daily Note ---
PT Daily Note-Current Subjective Patient agrees to PT. No c/o at this time. Pain Numeric Pain Scale: 3 Location: Left Location Body Site: Hip Pain Description: Ache Mental Status Patient Orientation: Normal For Age Transfers Functional [place] Measure 0=Not Assessed/NA 4=Minimal Assistance 1=Total Assistance 5=Supervision or Setup 2=Maximal Assistance 6=Modified [place] 3=Moderate Assistance 7=Complete IndependenceIRFPAI Quality Coding Scale 6 Independent with activity with or without an assistive device 5 Patient requires set up or clean up by helper. Patient completes activity by themselves 4 Supervision or touching assist (CGA). [place] provide cues , steadying assist 3 The helper provides less than half the effort to complete the activity 2 The helper provides more than half the effort to complete the activity 1 Dependent. The helper does all the effort to complete an activity 7 Patient refused to complete or attempt activity 9 The patient did not perform the activity before the current illness or injury 88 Not attempted due to Medical conditions or safety concerns Transfers (B, C, W/C) (FIM): 5 Scootin Sit to/from Stand: 5 Sit to Stand (QC): 4 Car Transfer (QC): 5 Weight Bearing Weight Bearing Restriction: Non Weight Bearing Location Restriction: L LE Gait Training Does the Patient Walk?: Yes Gait (FIM): 2 Distance (FIM): 7=106-12 ft Distance: 125' x 1; 75' x 3 Walk 10 feet (QC): 4 Walk 50 ft with 2 Turns(QC): 4 Gait Level of Assist: 5 Gait Persons Needed: 1 Gait Assistive Device: FWW Patient is able to comply with NWB left LE on smooth surfaces with use of FWW Stair Training Stair Training: Handrails/: 1 handrail, uses walker Stairs (FIM): 2 #of Steps: 4 1 Step (curb) (QC): 2 4 Steps (QC): 2 Stairs: Pattern: Hops Level of Assist: 3 difficulty with stair training; able to perform hopping onto 12" step in parallel bars 5 reps x 3 sets close CGA Exercises Seated Therapy Exercises: Ankle pumps, Long arc quads, Hip flexion Seated Reps: 25 (2 sets) Standin way Ex=Flex, Abd, Ext (left LE only), Mini squats (right LE only) NuStep Minutes: 10 NuStep Workload: 6 (to increase bilateral LE strength to perform safe stair training) Assessment Current Status: Excellent Progress PT Short Term Goals Short Term Goals Wheelchair Distance: 75' PT Natural Resources Technician Goals Halfway Goals PT Natural Resources Technician Goals Time Frame: May 19, 2017 Transfers (B,C,W/C) (FIM): 6 Sit to Lying (QC): 5 Lying-Sitting on Side/Bed(QC): 5 Sit to Stand (QC): 5 Rollin Roll Left to Right (QC): 5 Chair/Kdo-pv-Xdaai Xfer(QC): 5 Car Transfer (QC): 5 Does the Patient Walk: Yes Gait (FIM): 1 Gait distance (FIM): 1=up to 49 ft (45') Distance: 45' Walk 10 feet (QC): 5 Walk 10ft-Uneven Surface(QC): 5 Walk 50ft with 2 Turns (QC): 88 Walk 150 ft (QC): 88 Gait Level of Assist: 6 Gait Assistive Device: FWW Stairs (FIM): 2 # of Steps: 4 1 Step (curb) (QC): 5 4 Steps (QC): 4 12 Steps (QC): 88 Stairs Level Of Assist: 5 Picking up an Object (QC): 5 PT Plan Treatment/Plan Treatment Plan: Continue Plan of Care Treatment Plan: Bed Mobility, Education, Functional Activity Damien, Functional Strength, Group Therapy, Gait, Safety, Therapeutic Exercise, Transfers Treatment Duration: May 19, 2017 Frequency: At least 5-7 days/Wk (IRF) Estimated Hrs Per Day: 1.5 hours per day Patient and/or Family Agrees t: Yes Time/GCodes Time In: 800 Time Out: 900 Total Billed Treatment Time: 60 Total Billed Treatment 1 visit EX x 2 25 min FA 15 min GT 20 min NICKY VALADEZ PT May 04, 2017 10:08
--- NOTE | 2017-05-04 10:48 | Occupational Ther Daily Note ---
OT Current Status-Daily Note Subjective Pt alert, sitting in recliner. Pt agreed to therapy. No c/o pain at this time. Mental Status/Objective Patient Orientation: Person, Place, Time, Situation Functional [place] Measure 0=Not Assessed/NA 4=Minimal Assistance 1=Total Assistance 5=Supervision or Setup 2=Maximal Assistance 6=Modified [place] 3=Moderate Assistance 7=Complete [place] ADL-Treatment Functional [place] Measure 0=Not Assessed/NA 4=Minimal Assistance 1=Total Assistance 5=Supervision or Setup 2=Maximal Assistance 6=Modified [place] 3=Moderate Assistance 7=Complete IndependenceIRFPAI Quality Coding Scale 6 Independent with activity with or without an assistive device 5 Patient requires set up or clean up by helper. Patient completes activity by themselves 4 Supervision or touching assist (CGA). [place] provide cues , steadying assist 3 The helper provides less than half the effort to complete the activity 2 The helper provides more than half the effort to complete the activity 1 Dependent. The helper does all the effort to complete an activity 7 Patient refused to complete or attempt activity 9 The patient did not perform the activity before the current illness or injury 88 Not attempted due to Medical conditions or safety concerns Toileting (FIM): 5 Toileting Hygiene (QC): 4 Transfers (B, C, W/C) (FIM): 5 Toilet/Commode Transfer (FIM): 5 Toilet Transfer (QC): 4 Pt ambulated into bathroom with SBA using FWW. Pt transferred onto toilet using FWW and grabbars with SBA. Hygiene and clothing manipulation with SBA using grabbars for stability. Other Treatment Pt agreed to work on w/c mobility. Pt is working on maneuvering w/c through doorways and keeping a straight line. Pt is increasing arm strength maneuvering w/c over thresholds and up/down inclines for daily functional tasks. Pt does not use LE to steer or propel w/c, only UE's. After therapy, pt sitting in recliner with call light/phone in reach. All needs met in room. OT Short Term Goals Short Term Goals Time Frame: May 02, 2017 Bathing(FIM): 4 Lower Body Dressing(FIM): 4 Toileting(FIM): 4 Toilet/Commode Transfer(FIM): 5 Shower Transfer(FIM): 4 Additional Short Term Goals: 1-Demonstrate ADL Tasks, 2-Verbalize Understanding , 3-ImproveStrength/Damien 1=Demonstrate adherence to instructed precautions during ADL tasks. 2=Patient will verbalize/demonstrate understanding of assistive devices/ modifications for ADL. 3=Patient will improve strength/tolerance for activity to enable patient to perform ADL's. OT Critical Care Unit Nurse Goals Care Home Goals Time Frame: May 16, 2017 Eating (FIM): 6 Eating (QC): 6 Groomin Oral Hygiene (QC): 6 Bathing(FIM): 5 Shower/Bathe Self (QC): 5 Upper Body Dressing(FIM): 5 Upper Body Dressing (QC): 5 Lower Body Dressing(FIM): 5 Lower Body Dressing (QC): 5 On/Off Footwear (QC): 5 Toileting(FIM): 6 Toilet/Commode Transfer(FIM): 6 Toilet/Commode Transfer (QC): 6 Shower Transfer(FIM): 5 Additional Goals: 1-Demonstrate ADL Tasks, 2-Verbalize Understanding, 3- ImproveStrength/Damien 1=Demonstrate adherence to instructed precautions during ADL tasks. 2=Patient will verbalize/demonstrate understanding of assistive devices/ modifications for ADL. 3=Patient will improve strength/tolerance for activity to enable patient to perform ADL's. OT Education/Plan Problem List/Assessment Pt to benefit from skilled OT intervention for ADL training, transfers, strengthening, adaptive equipment training, and home safety education to maximize level of function and allow safe return home. Discharge Recommendations Plan/Recommendations: Continue POC Treatment Plan/Plan of Care Patient would benefit from OT for education, treatment and training to promote independence in ADL's, mobility, safety and/or upper extremity function for ADL' s. Plan of Care: ADL Retraining, Functional Mobility, UE Funct Exercise/Act Treatment Duration: May 16, 2017 Frequency: At least 5-7 days/Wk (IRF) Estimated Hrs Per Day: 1.5 hours per day Agreement: Yes Rehab Potential: Good Time/GCodes Start Time: 10:00 Stop Time: 10:30 Total Time Billed (hr/min): 30 Billed Treatment Time 1 visit-FA 2 (30 min) MANJU CHAVIS May 04, 2017 10:48
--- NOTE | 2017-05-04 14:00 | Physical Therapy Daily Note ---
PT Daily Note-Current Subjective No c/o. Pain Numeric Pain Scale: 3 Location: Left Location Body Site: Hip Pain Description: Ache Mental Status Patient Orientation: Normal For Age Transfers Functional [place] Measure 0=Not Assessed/NA 4=Minimal Assistance 1=Total Assistance 5=Supervision or Setup 2=Maximal Assistance 6=Modified [place] 3=Moderate Assistance 7=Complete IndependenceIRFPAI Quality Coding Scale 6 Independent with activity with or without an assistive device 5 Patient requires set up or clean up by helper. Patient completes activity by themselves 4 Supervision or touching assist (CGA). [place] provide cues , steadying assist 3 The helper provides less than half the effort to complete the activity 2 The helper provides more than half the effort to complete the activity 1 Dependent. The helper does all the effort to complete an activity 7 Patient refused to complete or attempt activity 9 The patient did not perform the activity before the current illness or injury 88 Not attempted due to Medical conditions or safety concerns Transfers (B, C, W/C) (FIM): 5 Scootin Rollin Roll Left to Right (QC): 4 Supine to/from Sit: 5 Sit to/from Stand: 5 Sit to Lying (QC): 4 Sit to Stand (QC): 4 Weight Bearing Weight Bearing Restriction: Non Weight Bearing Location Restriction: L LE Gait Training Does the Patient Walk?: Yes Gait (FIM): 2 Distance (FIM): 7=632-45 ft Distance: 75' Walk 10 feet (QC): 4 Walk 50 ft with 2 Turns(QC): 4 Gait Level of Assist: 5 Gait Persons Needed: 1 Gait Assistive Device: FWW Exercises Standin way Ex=Flex, Abd, Ext (left LE only), Mini squats (right LE only) Standing Reps: 30 (2 sets to increase strength to return to home) Assessment Current Status: Excellent Progress PT Short Term Goals Short Term Goals Wheelchair Distance: 75' PT Support Staff Goals Support Staff Goals PT Support Staff Goals Time Frame: May 19, 2017 Transfers (B,C,W/C) (FIM): 6 Sit to Lying (QC): 5 Lying-Sitting on Side/Bed(QC): 5 Sit to Stand (QC): 5 Rollin Roll Left to Right (QC): 5 Chair/Cvu-br-Ihptf Xfer(QC): 5 Car Transfer (QC): 5 Does the Patient Walk: Yes Gait (FIM): 1 Gait distance (FIM): 1=up to 49 ft (45') Distance: 45' Walk 10 feet (QC): 5 Walk 10ft-Uneven Surface(QC): 5 Walk 50ft with 2 Turns (QC): 88 Walk 150 ft (QC): 88 Gait Level of Assist: 6 Gait Assistive Device: FWW Stairs (FIM): 2 # of Steps: 4 1 Step (curb) (QC): 5 4 Steps (QC): 4 12 Steps (QC): 88 Stairs Level Of Assist: 5 Picking up an Object (QC): 5 PT Plan Treatment/Plan Treatment Plan: Continue Plan of Care Treatment Plan: Bed Mobility, Education, Functional Activity Damien, Functional Strength, Group Therapy, Gait, Safety, Therapeutic Exercise, Transfers Treatment Duration: May 19, 2017 Frequency: At least 5-7 days/Wk (IRF) Estimated Hrs Per Day: 1.5 hours per day Patient and/or Family Agrees t: Yes Time/GCodes Time In: 1300 Time Out: 1330 Total Billed Treatment Time: 30 Total Billed Treatment 1 visit EX 15 min GT 15 min NICKY VALADEZ PT May 04, 2017 14:00
[2017-05-04] MEDS: ACETAMINOPHEN 500 MG TAB (TYLENOL) PO PRN (17:41)
[2017-05-04 17:53] VITALS: BP 143/55
[2017-05-04] MEDS: ENOXAPARIN 30 MG/0.3 ML (LOVENOX) SYR SC SCH (20:18)
[2017-05-04] MEDS: FAMOTIDINE 20 MG (PEPCID) TABLET PO SCH (20:18)
[2017-05-04] MEDS: ATORVASTATIN 10 MG (LIPITOR) TABLET PO SCH (20:18)
[2017-05-05 05:00] VITALS: BP 152/61
[2017-05-05] MEDS: IRON POLYSAC 150 MG CAP (NIFEREX) PO SCH ×2 (06:41→18:26)
[2017-05-05] MEDS: ACETAMINOPHEN 500 MG TAB (TYLENOL) PO PRN ×2 (07:39→18:32)
[2017-05-05] MEDS: DILTIAZEM 30 MG (CARDIZEM) TAB PO SCH ×4 (07:39→20:38)
[2017-05-05] MEDS: DOCUSATE SODIUM 100 MG (COLACE) CAP PO SCH ×2 (07:39→20:38)
[2017-05-05] MEDS: TRIAMTERENE/HCTZ 75-50 (MAXZIDE,DYAZIDE) TABLET PO SCH (07:39)
--- NOTE | 2017-05-05 09:15 | PM & R (SOAP) Progress Note ---
Subjective Time Seen by Provider: 08:10 Subjective/Events-last exam Patient was seen in her room this AM Progressing well with therapies Pain control adequate Eating and sleeping well Patient min assist for transfers. Stool for OB negative Objective Exam Last Set of Vital Signs Vital Signs Date Time Temp Pulse Resp B/P (MAP) Pulse Ox O2 Delivery O2 Flow Rate FiO2 05/05/17 05:00 99.2 68 16 152/61 98 Room Air Capillary Refill : Less Than 3 Seconds I&O Intake and Output 05/05/17 00:00 Intake Total 1770 ml Balance 1770 ml Intake Oral 1770 ml # Voids 11 # Bowel Movements 1 General: Alert, No Acute Distress HEENT: Atraumatic, PERRLA, EOMI, Mucous Memb Moist/[place] Neck: Supple, No JVD Lungs: Clear to Auscultation Heart: Regular Rate Abdomen: Normal Bowel Sounds, Soft, No Tenderness Extremities: Other (trace edema left ankle) Skin: Other (A small area of peeling skin of sacral area, but no open wound.) Neuro: Other (weakness proximal left leg) Results Lab Laboratory Tests 05/03/17 06:24: White Blood Count 5.3, Red Blood Count 3.15L, Hemoglobin 9.7L, Hematocrit 29L, Mean Corpuscular Volume 93, Mean Corpuscular Hemoglobin 31, Mean Corpuscular Hemoglobin Concent 33, Red Cell Distribution Width 14.3, Platelet Count 436H, Mean Platelet Volume 8.2, Neutrophils (%) (Auto) 74, Lymphocytes (%) (Auto) 11L , Monocytes (%) (Auto) 11, Eosinophils (%) (Auto) 4, Basophils (%) (Auto) 1, Neutrophils # (Auto) 3.9, Lymphocytes # (Auto) 0.6L, Monocytes # (Auto) 0.6, Eosinophils # (Auto) 0.2, Basophils # (Auto) 0.0, Sodium Level 131L, Potassium Level 4.0, Chloride Level 94L, Carbon Dioxide Level 27, Anion Gap 10, Blood Urea Nitrogen 18, Creatinine 0.63, Estimat Glomerular Filtration Rate > 60, BUN/ Creatinine Ratio 29, Glucose Level 87, Calcium Level 8.8, Total Bilirubin 0.6, Aspartate Amino Transf (AST/SGOT) 22, Alanine Aminotransferase (ALT/SGPT) 16, Alkaline Phosphatase 103, Total Protein 6.0L, Albumin 3.4 8/9/17 08:10: Stool Occult Blood Immunoassay NEGATIVE Assessment/Plan Assessment s/p subcapital femur frx left hip s/p perc pinning NWB LLE HTN controlled Hyponatremia-unimproved Hypokalemia-replacement provided Postop anemia Resolved stage 1 pressure sore sacrum UTI treated Plan Continue PT/OT Replaced K Recheck BMPLab See orders Discharge set tentativelt for 05/09/17 KIYA PEREZ MD May 05, 2017 09:15
--- NOTE | 2017-05-05 10:06 | Physical Therapy Daily Note ---
PT Daily Note-Current Subjective Pt. states she is feeling ok this morning and agrees to Rx. Pain Numeric Pain Scale: 0-No Pain Mental Status Patient Orientation: Normal For Age Transfers Functional [place] Measure 0=Not Assessed/NA 4=Minimal Assistance 1=Total Assistance 5=Supervision or Setup 2=Maximal Assistance 6=Modified [place] 3=Moderate Assistance 7=Complete IndependenceIRFPAI Quality Coding Scale 6 Independent with activity with or without an assistive device 5 Patient requires set up or clean up by helper. Patient completes activity by themselves 4 Supervision or touching assist (CGA). [place] provide cues , steadying assist 3 The helper provides less than half the effort to complete the activity 2 The helper provides more than half the effort to complete the activity 1 Dependent. The helper does all the effort to complete an activity 7 Patient refused to complete or attempt activity 9 The patient did not perform the activity before the current illness or injury 88 Not attempted due to Medical conditions or safety concerns Transfers (B, C, W/C) (FIM): 6 Scootin Rollin Supine to/from Sit: 6 Sit to/from Stand: 6 Weight Bearing Weight Bearing Restriction: Non Weight Bearing Location Restriction: R LE Gait Training Does the Patient Walk?: Yes Gait (FIM): 5 Distance (FIM): 3=150 ft (150,100,75) Gait Level of Assist: 5 Gait Persons Needed: 1 Gait Assistive Device: FWW Exercises Supine Ex: Ankle pumps, Quad Set, Rolling, Glut sets, Heel Slides, Short Arc Quads, Scooting, Straight leg raise, Hip abd/add Supine Reps: 12 Standing: Hip Abduction, Hamstring curls, Heel/toe raises Standing Reps: 12 standing on good leg only NuStep Minutes: 10 NuStep Workload: 2 Treatments toilets and manages all indep Assessment Current Status: Good Progress no LOB, safe technique PT Short Term Goals Short Term Goals Wheelchair Distance: 75' PT Shelter Goals Construction Producer Goals PT Shelter Goals Time Frame: May 19, 2017 Transfers (B,C,W/C) (FIM): 6 Sit to Lying (QC): 5 Lying-Sitting on Side/Bed(QC): 5 Sit to Stand (QC): 5 Rollin Roll Left to Right (QC): 5 Chair/Dcb-rz-Zyxwe Xfer(QC): 5 Car Transfer (QC): 5 Does the Patient Walk: Yes Gait (FIM): 1 Gait distance (FIM): 1=up to 49 ft (45') Distance: 45' Walk 10 feet (QC): 5 Walk 10ft-Uneven Surface(QC): 5 Walk 50ft with 2 Turns (QC): 88 Walk 150 ft (QC): 88 Gait Level of Assist: 6 Gait Assistive Device: FWW Stairs (FIM): 2 # of Steps: 4 1 Step (curb) (QC): 5 4 Steps (QC): 4 12 Steps (QC): 88 Stairs Level Of Assist: 5 Picking up an Object (QC): 5 PT Plan Treatment/Plan Treatment Plan: Continue Plan of Care Treatment Plan: Bed Mobility, Education, Functional Activity Damien, Functional Strength, Group Therapy, Gait, Safety, Therapeutic Exercise, Transfers Treatment Duration: May 19, 2017 Frequency: At least 5-7 days/Wk (IRF) Estimated Hrs Per Day: 1.5 hours per day Patient and/or Family Agrees t: Yes Safety Risks/Education Patient Education: Gait Training, Transfer Techniques, Correct Positioning, Safety Issues Teaching Recipient: Patient Teaching Methods: Demonstration, Discussion Response to Teaching: Verbalize Understanding, Return Demonstration, Reinforcement Needed Time/GCodes Time In: 900 Time Out: 1000 Total Billed Treatment Time: 60 Total Billed Treatment 1,GT30m,EX30m G Codes Necessary: PATSY Membreno TRUCK SALES MANAGER May 05, 2017 10:06
--- NOTE | 2017-05-05 10:09 | Occupational Ther Daily Note ---
OT Current Status-Daily Note Subjective Pt sitting in chair, agrees to treatment. Pt reports 4/10 pain in left hip and knee. Mental Status/Objective Functional [place] Measure 0=Not Assessed/NA 4=Minimal Assistance 1=Total Assistance 5=Supervision or Setup 2=Maximal Assistance 6=Modified [place] 3=Moderate Assistance 7=Complete [place] ADL-Treatment Pt declined shower, would like to sponge bathe and get dressed. Pt sit to stand with supervision. Pt retrieved clothing from closet with SBA using FWW for balance. Sponge bath completed seated in chair with SBA. Don bra and pullover shirt with SBA. Pt donned underwear and pants with SBA for balance during standing for pant hike. Pt able to don bilateral socks with SBA. Uses long handled shoe horn to don shoes with SBA. Gait to restroom with FWW, able to maintain NWB left LE. Toilet transfer completed with SBA. Pt able to complete toileting hygiene and clothing management with SBA. Uses grab bar for balance during clothing management. Grooming tasks completed seated at sink. Pt washed hands, brushed teeth, and combed hair with modified independence. Pt states she has a tub/shower combo at home, but does not have a shower chair or bench. Pt performed w/c mobility to shower room without assistance. Education provided regarding types of shower chairs/benches and how to safely complete transfers using DME. Pt practiced transfers with extended shower bench and shower chair. Pt able to complete transfers with SBA and cues for safety. Pt states she will have spouse measure tub so they will know what size shower chair they need. Pt returned to room, transferred to chair with supervision. Pt sitting in chair with needs met after session. Functional [place] Measure 0=Not Assessed/NA 4=Minimal Assistance 1=Total Assistance 5=Supervision or Setup 2=Maximal Assistance 6=Modified [place] 3=Moderate Assistance 7=Complete IndependenceIRFPAI Quality Coding Scale 6 Independent with activity with or without an assistive device 5 Patient requires set up or clean up by helper. Patient completes activity by themselves 4 Supervision or touching assist (CGA). [place] provide cues , steadying assist 3 The helper provides less than half the effort to complete the activity 2 The helper provides more than half the effort to complete the activity 1 Dependent. The helper does all the effort to complete an activity 7 Patient refused to complete or attempt activity 9 The patient did not perform the activity before the current illness or injury 88 Not attempted due to Medical conditions or safety concerns Grooming (FIM): 6 Oral Hygiene (QC): 6 Bathing (FIM): 5 Shower/Bathe Self (QC): 4 Upper Body (FIM): 5 Upper Body Dressing (QC): 4 Lower Body Dressing (FIM): 5 Lower Body Dressing (QC): 4 Toileting (FIM): 5 Toileting Hygiene (QC): 4 Toilet/Commode Transfer (FIM): 5 Toilet Transfer (QC): 4 OT Short Term Goals Short Term Goals Time Frame: May 02, 2017 Bathing(FIM): 4 Lower Body Dressing(FIM): 4 Toileting(FIM): 4 Toilet/Commode Transfer(FIM): 5 Shower Transfer(FIM): 4 Additional Short Term Goals: 1-Demonstrate ADL Tasks, 2-Verbalize Understanding , 3-ImproveStrength/Damien 1=Demonstrate adherence to instructed precautions during ADL tasks. 2=Patient will verbalize/demonstrate understanding of assistive devices/ modifications for ADL. 3=Patient will improve strength/tolerance for activity to enable patient to perform ADL's. OT Cooker Mechanic Goals Cooker Mechanic Goals Time Frame: May 16, 2017 Eating (FIM): 6 Eating (QC): 6 Groomin Oral Hygiene (QC): 6 Bathing(FIM): 5 Shower/Bathe Self (QC): 5 Upper Body Dressing(FIM): 5 Upper Body Dressing (QC): 5 Lower Body Dressing(FIM): 5 Lower Body Dressing (QC): 5 On/Off Footwear (QC): 5 Toileting(FIM): 6 Toilet/Commode Transfer(FIM): 6 Toilet/Commode Transfer (QC): 6 Shower Transfer(FIM): 5 Additional Goals: 1-Demonstrate ADL Tasks, 2-Verbalize Understanding, 3- ImproveStrength/Damien 1=Demonstrate adherence to instructed precautions during ADL tasks. 2=Patient will verbalize/demonstrate understanding of assistive devices/ modifications for ADL. 3=Patient will improve strength/tolerance for activity to enable patient to perform ADL's. OT Education/Plan Problem List/Assessment Pt to benefit from skilled OT intervention for ADL training, transfers, strengthening, adaptive equipment training, and home safety education to maximize level of function and allow safe return home. Discharge Recommendations Plan/Recommendations: Continue POC Treatment Plan/Plan of Care Patient would benefit from OT for education, treatment and training to promote independence in ADL's, mobility, safety and/or upper extremity function for ADL' s. Plan of Care: ADL Retraining, Functional Mobility, UE Funct Exercise/Act Treatment Duration: May 16, 2017 Frequency: At least 5-7 days/Wk (IRF) Estimated Hrs Per Day: 1.5 hours per day Agreement: Yes Rehab Potential: Good Time/GCodes Start Time: 08:00 Stop Time: 09:00 Total Time Billed (hr/min): 60 Billed Treatment Time 1 visit, ADLx4(60minutes) BERNARDO DAVIS OT May 05, 2017 10:09
--- NOTE | 2017-05-05 11:42 | Occupational Ther Daily Note ---
OT Current Status-Daily Note Subjective Pt sitting in chair, agrees to treatment. Mental Status/Objective Functional [place] Measure 0=Not Assessed/NA 4=Minimal Assistance 1=Total Assistance 5=Supervision or Setup 2=Maximal Assistance 6=Modified [place] 3=Moderate Assistance 7=Complete [place] ADL-Treatment Pt completed toilet transfer with supervision. Pt able to complete toileting hygiene and clothing management with SBA. Stood at sink to wash hands with SBA. Functional [place] Measure 0=Not Assessed/NA 4=Minimal Assistance 1=Total Assistance 5=Supervision or Setup 2=Maximal Assistance 6=Modified [place] 3=Moderate Assistance 7=Complete IndependenceIRFPAI Quality Coding Scale 6 Independent with activity with or without an assistive device 5 Patient requires set up or clean up by helper. Patient completes activity by themselves 4 Supervision or touching assist (CGA). [place] provide cues , steadying assist 3 The helper provides less than half the effort to complete the activity 2 The helper provides more than half the effort to complete the activity 1 Dependent. The helper does all the effort to complete an activity 7 Patient refused to complete or attempt activity 9 The patient did not perform the activity before the current illness or injury 88 Not attempted due to Medical conditions or safety concerns Toileting (FIM): 5 Toileting Hygiene (QC): 4 Toilet/Commode Transfer (FIM): 5 Toilet Transfer (QC): 4 Other Treatment Pt performed gait to therapy gym with FWW. Pt able to maintain NWB status left LE. No LOB noted. Pt performed bilateral UE exercises to promote increased strength needed for ADLs and transfers. Pt completed shoulder flexion, forward press, biceps curls, and wrist flex/ext x10 reps, 2 sets. Arm arc activity with 1# weights in place to increase strength for functional tasks. Pt returned to room, transferred to chair with SBA using FWW. Pt sitting in chair with need met after session. OT Short Term Goals Short Term Goals Time Frame: May 02, 2017 Bathing(FIM): 4 Lower Body Dressing(FIM): 4 Toileting(FIM): 4 Toilet/Commode Transfer(FIM): 5 Shower Transfer(FIM): 4 Additional Short Term Goals: 1-Demonstrate ADL Tasks, 2-Verbalize Understanding , 3-ImproveStrength/Damien 1=Demonstrate adherence to instructed precautions during ADL tasks. 2=Patient will verbalize/demonstrate understanding of assistive devices/ modifications for ADL. 3=Patient will improve strength/tolerance for activity to enable patient to perform ADL's. OT Senior Science Consultant Goals Retirement Goals Time Frame: May 16, 2017 Eating (FIM): 6 Eating (QC): 6 Groomin Oral Hygiene (QC): 6 Bathing(FIM): 5 Shower/Bathe Self (QC): 5 Upper Body Dressing(FIM): 5 Upper Body Dressing (QC): 5 Lower Body Dressing(FIM): 5 Lower Body Dressing (QC): 5 On/Off Footwear (QC): 5 Toileting(FIM): 6 Toilet/Commode Transfer(FIM): 6 Toilet/Commode Transfer (QC): 6 Shower Transfer(FIM): 5 Additional Goals: 1-Demonstrate ADL Tasks, 2-Verbalize Understanding, 3- ImproveStrength/Damien 1=Demonstrate adherence to instructed precautions during ADL tasks. 2=Patient will verbalize/demonstrate understanding of assistive devices/ modifications for ADL. 3=Patient will improve strength/tolerance for activity to enable patient to perform ADL's. OT Education/Plan Problem List/Assessment Pt to benefit from skilled OT intervention for ADL training, transfers, strengthening, adaptive equipment training, and home safety education to maximize level of function and allow safe return home. Discharge Recommendations Plan/Recommendations: Continue POC Treatment Plan/Plan of Care Patient would benefit from OT for education, treatment and training to promote independence in ADL's, mobility, safety and/or upper extremity function for ADL' s. Plan of Care: ADL Retraining, Functional Mobility, UE Funct Exercise/Act Treatment Duration: May 16, 2017 Frequency: At least 5-7 days/Wk (IRF) Estimated Hrs Per Day: 1.5 hours per day Agreement: Yes Rehab Potential: Good Time/GCodes Start Time: 10:30 Stop Time: 11:00 Total Time Billed (hr/min): 30 Billed Treatment Time 1 visit, EXx2(30minutes) BERNARDO DAVIS OT May 05, 2017 11:42
--- NOTE | 2017-05-05 13:22 | Physical Therapy Daily Note ---
PT Daily Note-Current Subjective Pt. agrees to Rx. States she is slowly more confident about stairs Pain Numeric Pain Scale: 0-No Pain Mental Status Patient Orientation: Normal For Age Transfers Functional [place] Measure 0=Not Assessed/NA 4=Minimal Assistance 1=Total Assistance 5=Supervision or Setup 2=Maximal Assistance 6=Modified [place] 3=Moderate Assistance 7=Complete IndependenceIRFPAI Quality Coding Scale 6 Independent with activity with or without an assistive device 5 Patient requires set up or clean up by helper. Patient completes activity by themselves 4 Supervision or touching assist (CGA). [place] provide cues , steadying assist 3 The helper provides less than half the effort to complete the activity 2 The helper provides more than half the effort to complete the activity 1 Dependent. The helper does all the effort to complete an activity 7 Patient refused to complete or attempt activity 9 The patient did not perform the activity before the current illness or injury 88 Not attempted due to Medical conditions or safety concerns All TRFs mod I Weight Bearing Weight Bearing Restriction: Non Weight Bearing Location Restriction: L LE Gait Training Gait Assistive Device: FWW gait 150, 100,50 SBA no LOB, good control Stair Training Stair Training: Handrails/: uses walker Stairs (FIM): 2 #of Steps: 4 Stairs: Pattern: Hops Level of Assist: 3 Treatments toilets indep with SBA Assessment Current Status: Good Progress PT Short Term Goals Short Term Goals Wheelchair Distance: 75' 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 App[employer] Trimmings Sales Representative Goals PT Long-Term Goals Time Frame: May 19, 2017 Transfers (B,C,W/C) (FIM): 6 Sit to Lying (QC): 5 Lying-Sitting on Side/Bed(QC): 5 Sit to Stand (QC): 5 Rollin Roll Left to Right (QC): 5 Chair/Ces-ia-Ruqnv Xfer(QC): 5 Car Transfer (QC): 5 Does the Patient Walk: Yes Gait (FIM): 1 Gait distance (FIM): 1=up to 49 ft (45') Distance: 45' Walk 10 feet (QC): 5 Walk 10ft-Uneven Surface(QC): 5 Walk 50ft with 2 Turns (QC): 88 Walk 150 ft (QC): 88 Gait Level of Assist: 6 Gait Assistive Device: FWW Stairs (FIM): 2 # of Steps: 4 1 Step (curb) (QC): 5 4 Steps (QC): 4 12 Steps (QC): 88 Stairs Level Of Assist: 5 Picking up an Object (QC): 5 PT Plan Treatment/Plan Treatment Plan: Continue Plan of Care Treatment Plan: Bed Mobility, Education, Functional Activity Damien, Functional Strength, Group Therapy, Gait, Safety, Therapeutic Exercise, Transfers Treatment Duration: May 19, 2017 Frequency: At least 5-7 days/Wk (IRF) Estimated Hrs Per Day: 1.5 hours per day Patient and/or Family Agrees t: Yes Safety Risks/Education Patient Education: Gait Training, Transfer Techniques, Steps, Correct Positioning, Safety Issues Teaching Recipient: Patient Teaching Methods: Demonstration, Discussion Response to Teaching: Verbalize Understanding, Return Demonstration, Reinforcement Needed Time/GCodes Time In: 1300 Time Out: 1330 Total Billed Treatment Time: 30 Total Billed Treatment 1,GT15m,FA15m G Codes Necessary: PATSY Membreno MEDICAL ASSISTANT OB GYN May 05, 2017 13:22
[2017-05-05 18:00] VITALS: BP 125/64
[2017-05-05] MEDS: ATORVASTATIN 10 MG (LIPITOR) TABLET PO SCH (20:38)
[2017-05-05] MEDS: ENOXAPARIN 30 MG/0.3 ML (LOVENOX) SYR SC SCH (20:38)
[2017-05-05] MEDS: FAMOTIDINE 20 MG (PEPCID) TABLET PO SCH (20:38)
[2017-05-05] MEDS: HYDROcodone/APAP 7.5 MG/325 MG (LORTAB, LORCET PLUS) TABLET PO PRN (22:06)
[2017-05-06 05:40] VITALS: BP 134/54
[2017-05-06 06:12] LABS: ANION GAP 11 MMOL/L (5-14); BLOOD UREA NITROGEN 17 MG/DL (7-18); BUN/CREATININE RATIO 29; CALCIUM 9.1 MG/DL (8.5-10.1); CARBON DIOXIDE 24 MMOL/L (21-32); CHLORIDE 97 MMOL/L (98-107); CREATININE SERUM 0.59 MG/DL (0.60-1.30); GFR ESTIMATED > 60; GLUCOSE 94 MG/DL (70-105); POTASSIUM 3.6 MMOL/L (3.6-5.0); SODIUM 132 MMOL/L (135-145)
[2017-05-06] MEDS: IRON POLYSAC 150 MG CAP (NIFEREX) PO SCH ×2 (06:40→17:14)
[2017-05-06] MEDS: TRIAMTERENE/HCTZ 75-50 (MAXZIDE,DYAZIDE) TABLET PO SCH (08:47)
[2017-05-06] MEDS: DILTIAZEM 30 MG (CARDIZEM) TAB PO SCH ×4 (08:47→20:13)
[2017-05-06] MEDS: DOCUSATE SODIUM 100 MG (COLACE) CAP PO SCH ×2 (08:47→20:12)
--- NOTE | 2017-05-06 10:41 | Physical Therapy Daily Note ---
PT Daily Note-Current Subjective Agrees to Rx. wants a shower after Rx. Pain Numeric Pain Scale: 3 Location: Left Location Body Site: Hip Pain Description: Ache Mental Status Patient Orientation: Normal For Age Transfers Functional [place] Measure 0=Not Assessed/NA 4=Minimal Assistance 1=Total Assistance 5=Supervision or Setup 2=Maximal Assistance 6=Modified [place] 3=Moderate Assistance 7=Complete IndependenceIRFPAI Quality Coding Scale 6 Independent with activity with or without an assistive device 5 Patient requires set up or clean up by helper. Patient completes activity by themselves 4 Supervision or touching assist (CGA). [place] provide cues , steadying assist 3 The helper provides less than half the effort to complete the activity 2 The helper provides more than half the effort to complete the activity 1 Dependent. The helper does all the effort to complete an activity 7 Patient refused to complete or attempt activity 9 The patient did not perform the activity before the current illness or injury 88 Not attempted due to Medical conditions or safety concerns Transfers (B, C, W/C) (FIM): 6 Scootin Rollin Supine to/from Sit: 6 Sit to/from Stand: 6 Weight Bearing Weight Bearing Restriction: Non Weight Bearing Location Restriction: L LE maintains well Gait Training Does the Patient Walk?: Yes Gait (FIM): 5 Distance (FIM): 3=150 ft Gait Level of Assist: 5 Gait Persons Needed: 1 Gait Assistive Device: FWW Stair Training Stair Training: Handrails/: uses walker Stairs (FIM): 2 #of Steps: 4 Stairs: Pattern: Hops Level of Assist: 3 Exercises Supine Ex: Ankle pumps, Quad Set, Rolling, Glut sets, Heel Slides, Short Arc Quads, Scooting, Straight leg raise, Hip abd/add Supine Reps: 12 Treatments toilets and manages all indep Assessment Current Status: Good Progress no LOB with all mob PT Short Term Goals Short Term Goals Wheelchair Distance: 75' PT [place] Counselor Goals [place] Counselor Goals PT Usp Goals Time Frame: May 19, 2017 Transfers (B,C,W/C) (FIM): 6 Sit to Lying (QC): 5 Lying-Sitting on Side/Bed(QC): 5 Sit to Stand (QC): 5 Rollin Roll Left to Right (QC): 5 Chair/Ifx-vx-Przvk Xfer(QC): 5 Car Transfer (QC): 5 Does the Patient Walk: Yes Gait (FIM): 1 Gait distance (FIM): 1=up to 49 ft (45') Distance: 45' Walk 10 feet (QC): 5 Walk 10ft-Uneven Surface(QC): 5 Walk 50ft with 2 Turns (QC): 88 Walk 150 ft (QC): 88 Gait Level of Assist: 6 Gait Assistive Device: FWW Stairs (FIM): 2 # of Steps: 4 1 Step (curb) (QC): 5 4 Steps (QC): 4 12 Steps (QC): 88 Stairs Level Of Assist: 5 Picking up an Object (QC): 5 PT Plan Treatment/Plan Treatment Plan: Continue Plan of Care Treatment Plan: Bed Mobility, Education, Functional Activity Damien, Functional Strength, Group Therapy, Gait, Safety, Therapeutic Exercise, Transfers Treatment Duration: May 19, 2017 Frequency: At least 5-7 days/Wk (IRF) Estimated Hrs Per Day: 1.5 hours per day Patient and/or Family Agrees t: Yes Safety Risks/Education Patient Education: Gait Training, Transfer Techniques, Steps, Correct Positioning, Safety Issues Teaching Recipient: Patient Teaching Methods: Demonstration, Discussion Response to Teaching: Verbalize Understanding, Return Demonstration, Reinforcement Needed Time/GCodes Time In: 945 Time Out: 1000 Total Billed Treatment Time: 15 Total Billed Treatment 1,FA15m G Codes Necessary: PATSY Membreno CALL CENTER RECRUITER May 06, 2017 10:41
[2017-05-06 17:42] VITALS: BP 142/76
[2017-05-06] MEDS: ATORVASTATIN 10 MG (LIPITOR) TABLET PO SCH (20:12)
[2017-05-06] MEDS: ENOXAPARIN 30 MG/0.3 ML (LOVENOX) SYR SC SCH (20:12)
[2017-05-06] MEDS: FAMOTIDINE 20 MG (PEPCID) TABLET PO SCH (20:12)
[2017-05-06] MEDS: HYDROcodone/APAP 7.5 MG/325 MG (LORTAB, LORCET PLUS) TABLET PO PRN (21:02)
[2017-05-07 05:24] VITALS: BP 153/65
[2017-05-07] MEDS: TRIAMTERENE/HCTZ 75-50 (MAXZIDE,DYAZIDE) TABLET PO SCH (08:20)
[2017-05-07] MEDS: DILTIAZEM 30 MG (CARDIZEM) TAB PO SCH ×4 (08:20→20:21)
[2017-05-07] MEDS: IRON POLYSAC 150 MG CAP (NIFEREX) PO SCH ×2 (08:20→16:26)
[2017-05-07] MEDS: DOCUSATE SODIUM 100 MG (COLACE) CAP PO SCH ×2 (08:21→20:22)
[2017-05-07] MEDS: ACETAMINOPHEN 500 MG TAB (TYLENOL) PO PRN (12:24)
[2017-05-07 16:37] VITALS: BP 116/52
[2017-05-07] MEDS: ENOXAPARIN 30 MG/0.3 ML (LOVENOX) SYR SC SCH (20:21)
[2017-05-07] MEDS: ATORVASTATIN 10 MG (LIPITOR) TABLET PO SCH (20:22)
[2017-05-07] MEDS: FAMOTIDINE 20 MG (PEPCID) TABLET PO SCH (20:22)
[2017-05-07] MEDS: HYDROcodone/APAP 7.5 MG/325 MG (LORTAB, LORCET PLUS) TABLET PO PRN (21:54)
[2017-05-08 05:33] VITALS: BP 154/86
[2017-05-08] MEDS: IRON POLYSAC 150 MG CAP (NIFEREX) PO SCH ×2 (08:14→17:24)
[2017-05-08] MEDS: DILTIAZEM 30 MG (CARDIZEM) TAB PO SCH ×4 (08:14→21:38)
[2017-05-08] MEDS: DOCUSATE SODIUM 100 MG (COLACE) CAP PO SCH ×2 (08:14→21:38)
[2017-05-08] MEDS: TRIAMTERENE/HCTZ 75-50 (MAXZIDE,DYAZIDE) TABLET PO SCH (08:14)
--- NOTE | 2017-05-08 09:25 | Progress Note (SOAP) ---
Subjective Date Seen by Provider: May 08, 2017 Time Seen by Provider: 09:10 Subjective/Events-last exam PT REPORTS THAT SHE IS FEELING BETTER, SHE HAS HEADACHE AT THE END OF THE DAY - IT SEEMS LIKE A TENSION IN HER NECK AND INTO THE BACK OF HER HEAD. SHE STATES THAT SHE IS "GETTING GOOD AT HOPING AROUND ON ONE LEG, BUT I AM TIRED AT THE END OF THE DAY". Review of Systems General: Fatigue HEENT: Head Aches Pulmonary: No Dyspnea, No Cough Cardiovascular: No: Chest Pain, Palpitations Gastrointestinal: No: Nausea, Abdominal Pain Genitourinary: No Dysuria Neurological: No: Weakness, Confusion HEADACHE AT THE END OF THE DAY Objective Exam Vital Signs Date Time Temp Pulse Resp B/P (MAP) Pulse Ox O2 Delivery O2 Flow Rate FiO2 05/08/17 05:33 97.6 76 18 154/86 97 Room Air 05/07/17 16:37 97.4 75 20 116/52 98 Room Air I & O 05/08/17 07:00 Intake Total 1890 ml Balance 1890 ml Capillary Refill : Less Than 3 Seconds General Appearance: No Apparent Distress, WD/WN, Thin HEENT: PERRL/EOMI Neck: Full Range of Motion, Normal Inspection, Non Tender, Supple Respiratory: Chest Non Tender, Lungs Clear, Normal Breath Sounds Cardiovascular: Regular Rate, Rhythm, No Edema Gastrointestinal: normal bowel sounds, non tender, soft Extremity: No Pedal Edema Neurologic/Psychiatric: Alert, Oriented x3, No Motor/Sensory Deficits, Normal Mood/Affect Skin: Warm/Dry Lymphatic: No Adenopathy Assessment/Plan Assessment/Plan Assess & Plan/Chief Complaint LEFT HIP FRACTURE HYPOMAGNESEMIA HYPOPHOSPHATEMIA ANEMIA FRAILTY DEPRESSION HYPERTENSION GERD HYPERLIPIDEMIA LEFT HIP FRACTURE - CONTINUE WITH PHYSICAL THERAPY - MONITOR SYMPTOMS - IMPROVING. HYPOMAGNESEMIA AND HYPOPHOSPHATEMIA - MONITOR SYMPTOMS - STABLE ANEMIA - MONITOR SYMPTOMS. FRAILTY DEPRESSION - CONTINUE WITH HOME MEDICATIONS. HYPERTENSION - RESUME HOME MEDICATIONS. GERD - RESUME HOME MEDICATIONS. HYPERLIPIDEMIA - CONTINUE SUPPORTIVE CARE, HOME MEDICATIONS. Clinical Quality Measures DVT/VTE Risk/Contraindication: Risk Factor Score Per Nursin RFS Level Per Nursing on Admit: 4+=Very High ZEV FARRAR MD May 08, 2017 09:25
[2017-05-08] MEDS: DICLOFENAC 1% GEL 100 GM (VOLTAREN) TUBE TOP SCH ×4 (09:30→21:38)
--- NOTE | 2017-05-08 10:01 | Occupational Ther Daily Note ---
OT Current Status-Daily Note Subjective Pt. alert, sitting in bed. Pt. willing to participate in therapy. No c/o pain. Mental Status/Objective Patient Orientation: Person, Place, Time, Situation Functional [place] Measure 0=Not Assessed/NA 4=Minimal Assistance 1=Total Assistance 5=Supervision or Setup 2=Maximal Assistance 6=Modified [place] 3=Moderate Assistance 7=Complete [place] ADL-Treatment Due to NWB status has safety concerns with balance during dynamic standing tasks for ADLs. Functional [place] Measure 0=Not Assessed/NA 4=Minimal Assistance 1=Total Assistance 5=Supervision or Setup 2=Maximal Assistance 6=Modified [place] 3=Moderate Assistance 7=Complete IndependenceIRFPAI Quality Coding Scale 6 Independent with activity with or without an assistive device 5 Patient requires set up or clean up by helper. Patient completes activity by themselves 4 Supervision or touching assist (CGA). [place] provide cues , steadying assist 3 The helper provides less than half the effort to complete the activity 2 The helper provides more than half the effort to complete the activity 1 Dependent. The helper does all the effort to complete an activity 7 Patient refused to complete or attempt activity 9 The patient did not perform the activity before the current illness or injury 88 Not attempted due to Medical conditions or safety concerns Eating (FIM): 6 (Pt able to complete own set up. Uses regular utensils to cut food and feed self) Eating (QC): 6 (Pt able to complete own set up. Uses regular utensils to cut food and feed self) Grooming (FIM): 6 (Sitting at sink, pt is able to complete all grooming tasks.) Oral Hygiene (QC): 6 (Sitting at sink, pt is able to complete all oral hygiene. ) Bathing (FIM): 6 (Using grabbars, shower bench and hand held shower pt is able to complete bathing by self.) Bathing Location: L Arm, R Arm, L Upper Leg, R Upper Leg, L Lower Leg ( including foot), R Lower Leg (including foot), Chest, Abdomen, Buttocks, Perineal Area Shower/Bathe Self (QC): 6 (Using grabbars, shower bench and hand held shower pt is able to complete bathing by self.) Upper Body (FIM): 5 (Retrieving clothing from closet using FWW, safety concerns. Pt able to don/doff upper body clothing by self.) Upper Body Dressing (QC): 5 (Retrieving clothing from closet using FWW, safety concerns. Pt able to don/doff upper body clothing by self.) Lower Body Dressing (FIM): 5 (Retrieving clothing from closet using FWW, safety concerns. Pt able to don/doff lower body clothing by self. Uses long shoe horn and elastic shoe laces to don shoes by self.) Lower Body Dressing (QC): 5 (Retrieving clothing from closet using FWW, safety concerns. Pt able to don/doff lower body clothing by self. Uses long shoe horn and elastic shoe laces to don shoes by self.) On/Off Footwear (QC): 6 (Uses long shoe horn and elastic shoe laces to don shoes by self.) Toileting (FIM): 5 (Using grabbars and FWW, pt is able to manipulate clothing in standing with supervision. Pt cleanses self in sitting.) Toileting Hygiene (QC): 5 (Using grabbars and FWW, pt is able to manipulate clothing in standing with supervision. Pt cleanses self in sitting.) Transfers (B, C, W/C) (FIM): 6 (Using FWW pt is able to transfer self.) Toilet/Commode Transfer (FIM): 6 (Using FWW and grabbar pt is able to transfer self.) Toilet Transfer (QC): 6 (Using FWW and grabbar pt is able to transfer self.) Shower Transfer(FIM): 6 (Using grabbar, shower bench and FWW to transfer into shower.) Other Treatment Pt completed tub bench transfer into tub/shower with supervision. Pt has tub/ shower at home, stating that will be getting tub transfer bench. Pt maneuvered w/c to SDU kitchen area. Pt worked on retrieving items from cabinets then taking item along cabinet to place into microwave. Pt uses FWW to ambulate along counter while pushing cup along top of counter. Pt had 1 LOB during task when turning around to empty cup into the sink. After therapy, pt sitting in recliner with call light/phone in reach. All needs met in room. OT Short Term Goals Short Term Goals Time Frame: May 02, 2017 Bathing(FIM): 4 Lower Body Dressing(FIM): 4 Toileting(FIM): 4 Toilet/Commode Transfer(FIM): 5 Shower Transfer(FIM): 4 Additional Short Term Goals: 1-Demonstrate ADL Tasks, 2-Verbalize Understanding , 3-ImproveStrength/Damien 1=Demonstrate adherence to instructed precautions during ADL tasks. 2=Patient will verbalize/demonstrate understanding of assistive devices/ modifications for ADL. 3=Patient will improve strength/tolerance for activity to enable patient to perform ADL's. OT Retirement Goals Retirement Goals Time Frame: May 16, 2017 Eating (FIM): 6 (met-) Eating (QC): 6 (met-) Groomin (met-) Oral Hygiene (QC): 6 (met-) Bathing(FIM): 5 (met-) Shower/Bathe Self (QC): 5 (met-) Upper Body Dressing(FIM): 5 (met-) Upper Body Dressing (QC): 5 (met-) Lower Body Dressing(FIM): 5 (met-) Lower Body Dressing (QC): 5 (met-) On/Off Footwear (QC): 5 (met-) Toileting(FIM): 6 (not met) Toilet/Commode Transfer(FIM): 6 (met-) Toilet/Commode Transfer (QC): 6 (met-) Shower Transfer(FIM): 5 (met-) Additional Goals: 1-Demonstrate ADL Tasks, 2-Verbalize Understanding, 3- ImproveStrength/Damien 1=Demonstrate adherence to instructed precautions during ADL tasks. 2=Patient will verbalize/demonstrate understanding of assistive devices/ modifications for ADL. 3=Patient will improve strength/tolerance for activity to enable patient to perform ADL's. OT Education/Plan Problem List/Assessment Pt to benefit from skilled OT intervention for ADL training, transfers, strengthening, adaptive equipment training, and home safety education to maximize level of function and allow safe return home. Discharge Recommendations Plan/Recommendations: Continue POC Treatment Plan/Plan of Care Patient would benefit from OT for education, treatment and training to promote independence in ADL's, mobility, safety and/or upper extremity function for ADL' s. Plan of Care: ADL Retraining, Functional Mobility, UE Funct Exercise/Act Treatment Duration: May 16, 2017 Frequency: At least 5-7 days/Wk (IRF) Estimated Hrs Per Day: 1.5 hours per day Agreement: Yes Rehab Potential: Good Time/GCodes Start Time: 09:00 Stop Time: 10:00 Total Time Billed (hr/min): 60 Billed Treatment Time 1 visit-ADL 2 (30 min) FA 2 (30 min) MANJU CHAVIS May 08, 2017 10:00
[2017-05-08 10:02] LABS: MEAN PLATELET VOLUME 8.4 FL (7.4-10.4); RED BLOOD COUNT 3.82 10^6/uL (4.35-5.85); RED CELL DISTRIBUTION WIDTH 14.5 % (10.0-14.5); WHITE BLOOD COUNT 5.4 10^3/uL (4.3-11.0)
[2017-05-08 10:27] LABS: ALANINE AMINOTRANSFERASE 16 U/L (0-55); ALBUMIN 4.5 GM/DL (3.2-4.5); ANION GAP 14 MMOL/L (5-14); ASPARTATE AMINO TRANSFERASE 27 U/L (5-34); BILIRUBIN,TOTAL 0.5 MG/DL (0.1-1.0); BLOOD UREA NITROGEN 17 MG/DL (7-18); BUN/CREATININE RATIO 24; CALCIUM 9.9 MG/DL (8.5-10.1); CARBON DIOXIDE 25 MMOL/L (21-32); CHLORIDE 94 MMOL/L (98-107); CREATININE SERUM 0.72 MG/DL (0.60-1.30); GFR ESTIMATED > 60; GLUCOSE 110 MG/DL (70-105); MAGNESIUM 2.1 MG/DL (1.8-2.4); POTASSIUM 3.3 MMOL/L (3.6-5.0); SODIUM 133 MMOL/L (135-145)
--- NOTE | 2017-05-08 12:17 | Physical Therapy Daily Note ---
PT Daily Note-Current Subjective Agrees to PT. Reports she plans to discharge tomorrow. Feels ready for discharge. Pain Numeric Pain Scale: 0-No Pain Location: No Pain Reported Mental Status Patient Orientation: Person, Place, Time, Situation Transfers Functional [place] Measure 0=Not Assessed/NA 4=Minimal Assistance 1=Total Assistance 5=Supervision or Setup 2=Maximal Assistance 6=Modified [place] 3=Moderate Assistance 7=Complete IndependenceIRFPAI Quality Coding Scale 6 Independent with activity with or without an assistive device 5 Patient requires set up or clean up by helper. Patient completes activity by themselves 4 Supervision or touching assist (CGA). [place] provide cues , steadying assist 3 The helper provides less than half the effort to complete the activity 2 The helper provides more than half the effort to complete the activity 1 Dependent. The helper does all the effort to complete an activity 7 Patient refused to complete or attempt activity 9 The patient did not perform the activity before the current illness or injury 88 Not attempted due to Medical conditions or safety concerns Transfers (B, C, W/C) (FIM): 6 Roll Left to Right (QC): 6 Sit to Lying (QC): 6 Sit to Stand (QC): 6 Chair/Fdl-jb-Gwccc Xfer(QC): 6 pt performed toilet transfer mod indep as well as kirsten care and clothing management mod indep. Pt toileted x 2 during course of therapy treatment. Weight Bearing Weight Bearing Restriction: Non Weight Bearing Location Restriction: L LE Gait Training Does the Patient Walk?: Yes Gait (FIM): 6 Distance (FIM): 3=150 ft Distance: 150 ft x 2; 50 ft x 2 Walk 10 feet (QC): 6 Walk 50 ft with 2 Turns(QC): 6 (in room and in/out of bathroom) Walk 150 ft (QC): 6 Walking 10ft/uneven surface-QC: 6 Gait Assistive Device: FWW Pt hops using FWW with safe steady gait; no LOB noted. Did educate pt on the difference between tile floor and carpte and to be aware of more drag on the carpet. Stair Training Stair Training: Handrails/: 2 handrails Stairs (FIM): 5 (household level) #of Steps: 8 1 Step (curb) (QC): 6 4 Steps (QC): 6 12 Steps (QC): 88 Stairs: Pattern: Hops mod indep on the steps. Balance Picking up an Object (QC): 88 (NWB; unsafe to attempt) Exercises Seated Therapy Exercises: Ankle pumps, Long arc quads, Hip flexion, Hamstring Curls Seated Reps: 15 ( 2 sets; performed to increase LE strength for functional transfers and gait. ) Assessment Current Status: Excellent Progress Excellent progress; meeting goals set at evaluation. Primary limitation at this time is NWB status and she manages this very well. PT Short Term Goals Short Term Goals Wheelchair Distance: 75' PT [place] Goals Group Home Goals PT Group Home Goals Time Frame: May 19, 2017 Transfers (B,C,W/C) (FIM): 6 (met) Sit to Lying (QC): 5 (exceeded ) Lying-Sitting on Side/Bed(QC): 5 (exceeded) Sit to Stand (QC): 5 (exceeded) Rollin Roll Left to Right (QC): 5 (exceeded) Chair/Pgo-np-[place] Xfer(QC): 5 (exceeded) Car Transfer (QC): 5 Does the Patient Walk: Yes Gait (FIM): 1 (xceeded; scored a 6) Gait distance (FIM): 1=up to 49 ft (45') Distance: 45' Walk 10 feet (QC): 5 Walk 10ft-Uneven Surface(QC): 5 Walk 50ft with 2 Turns (QC): 88 Walk 150 ft (QC): 88 Gait Level of Assist: 6 Gait Assistive Device: FWW Stairs (FIM): 2 (exceeded; scored a 5) # of Steps: 4 1 Step (curb) (QC): 5 (exceeded) 4 Steps (QC): 4 (exceeded) 12 Steps (QC): 88 Stairs Level Of Assist: 5 Picking up an Object (QC): 5 (88) PT Plan Problem List Problem List: Activity Tolerance, Functional Strength, Safety Treatment/Plan Treatment Plan: Continue Plan of Care Treatment Plan: Bed Mobility, Education, Functional Activity Damien, Functional Strength, Group Therapy, Gait, Safety, Therapeutic Exercise, Transfers Treatment Duration: May 19, 2017 Frequency: At least 5-7 days/Wk (IRF) Estimated Hrs Per Day: 1.5 hours per day Patient and/or Family Agrees t: Yes Safety Risks/Education Patient Education: Safety Issues Teaching Recipient: Patient Teaching Methods: Discussion Response to Teaching: Verbalize Understanding Discharge Recommendations Plan Discharge tomorrow Therapy D/C Recommendations: Physical Therapy Home Care Time/GCodes Time In: 1000 Time Out: 1100 Total Billed Treatment Time: 60 Total Billed Treatment visit EX 30 GT 30 MANJU HARRIS PT May 08, 2017 12:17
--- NOTE | 2017-05-08 14:33 | Therapy Group Daily Note ---
Therapy Daily Group Note Patient Education Topic Home Safety, Fall Prevention Exercises LE Seated Exercise, UE Exercise Other/Notes Pt was an active participant in OT group. She introduced herself to the group by talking about her first car. She contributed to discussion/education on fall prevention and home safety and did seated exercises to strengthen her legs to help her balance. She also did seated UE and trunk exercises to help with transfers. At the end of group, she was able to identify one change that she will put into place at home to make her home safer. She walked back to her room with ALLIE SIERRAW and transferred to toilet, call light present, nursing notified. Start Time: 13:00 Stop Time: 14:10 Total Billed Treatment Time: 70 Total Billed Treatment visit, 70 minutes group BRIGID DAVIS OT May 08, 2017 14:33
[2017-05-08 17:21] VITALS: BP 131/69
[2017-05-08] MEDS: ENOXAPARIN 30 MG/0.3 ML (LOVENOX) SYR SC SCH (20:04)
--- NOTE | 2017-05-08 20:42 | PM & R (SOAP) Progress Note ---
Subjective Time Seen by Provider: 20:25 Subjective/Events-last exam Patient was seen in her room this AM Progressing well with therapies Patient Modified Independent for transfers Current meds reviewed Objective Exam Last Set of Vital Signs Vital Signs Date Time Temp Pulse Resp B/P (MAP) Pulse Ox O2 Delivery O2 Flow Rate FiO2 05/08/17 17:21 96.9 97 20 131/69 97 Room Air Capillary Refill : Less Than 3 Seconds I&O Intake and Output 05/08/17 00:00 Intake Total 1390 ml Balance 1390 ml Intake Oral 1390 ml # Voids 6 # Bowel Movements 1 General: Alert, No Acute Distress HEENT: Atraumatic, PERRLA, EOMI, Mucous Memb Moist/[place] Neck: Supple, No JVD Lungs: Clear to Auscultation Heart: Regular Rate Abdomen: Normal Bowel Sounds, Soft, No Tenderness Extremities: Other (trace edema left ankle) Skin: Other (A small area of peeling skin of sacral area, but no open wound.) Neuro: Other (weakness proximal left leg) Results Lab Laboratory Tests 05/06/17 05:37: Sodium Level 132L, Potassium Level 3.6, Chloride Level 97L, Carbon Dioxide Level 24, Anion Gap 11, Blood Urea Nitrogen 17, Creatinine 0.59L, Estimat Glomerular Filtration Rate > 60, BUN/Creatinine Ratio 29, Glucose Level 94, Calcium Level 9.1 05/08/17 09:54: Sodium Level 133L, Potassium Level 3.3L, Chloride Level 94L, Carbon Dioxide Level 25, Anion Gap 14, Blood Urea Nitrogen 17, Creatinine 0.72, Estimat Glomerular Filtration Rate > 60, BUN/Creatinine Ratio 24, Glucose Level 110H, Calcium Level 9.9, White Blood Count 5.4, Red Blood Count 3.82L, Hemoglobin 11.9 #, Hematocrit 36, Mean Corpuscular Volume 94, Mean Corpuscular Hemoglobin 31, Mean Corpuscular Hemoglobin Concent 33, Red Cell Distribution Width 14.5, Platelet Count 588H, Mean Platelet Volume 8.4, Magnesium Level 2.1, Total Bilirubin 0.5, Aspartate Amino Transf (AST/SGOT) 27, Alanine Aminotransferase ( ALT/SGPT) 16, Alkaline Phosphatase 166H, Total Protein 8.0, Albumin 4.5 Assessment/Plan Assessment s/p subcapital femur frx left hip s/p perc pinning NWB LLE HTN controlled Hyponatremia-improving Hypokalemia-replacement provided Postop anemia Resolved stage 1 pressure sore sacrum UTI treated Plan Continue PT/OT Replaced K Rechecked BMP See orders Discharge remains set for tomorrow 05/09/17 to home with Spouse and [facility] KIYA PEREZ MD May 08, 2017 20:42
[2017-05-08] MEDS ORDERED: KCL 20 MEQ TAB (K-DUR) PO ONE (20:45)
[2017-05-08] MEDS: ATORVASTATIN 10 MG (LIPITOR) TABLET PO SCH (21:38)
[2017-05-08] MEDS: FAMOTIDINE 20 MG (PEPCID) TABLET PO SCH (21:38)
[2017-05-09 06:25] VITALS: BP 145/65
--- NOTE | 2017-05-09 07:55 | PM & R (SOAP) Progress Note ---
Subjective Time Seen by Provider: 07:30 Subjective/Events-last exam Patient was seen in her room this AM Has progressed well Objective Exam Last Set of Vital Signs Vital Signs Date Time Temp Pulse Resp B/P (MAP) Pulse Ox O2 Delivery O2 Flow Rate FiO2 05/09/17 06:25 96.9 87 20 145/65 97 Room Air Capillary Refill : Less Than 3 Seconds I&O Intake and Output 05/09/17 00:00 Intake Total 1700 ml Balance 1700 ml Intake Oral 1700 ml # Voids 6 # Bowel Movements 3 General: Alert, No Acute Distress HEENT: Atraumatic, PERRLA, EOMI, Mucous Memb Moist/[place] Neck: Supple, No JVD Lungs: Clear to Auscultation Heart: Regular Rate Abdomen: Normal Bowel Sounds, Soft, No Tenderness Extremities: Other (trace edema left ankle) Skin: Other (A small area of peeling skin of sacral area, but no open wound.) Neuro: Other (weakness proximal left leg) Results Lab Laboratory Tests 05/08/17 09:54: White Blood Count 5.4, Red Blood Count 3.82L, Hemoglobin 11.9#, Hematocrit 36, Mean Corpuscular Volume 94, Mean Corpuscular Hemoglobin 31, Mean Corpuscular Hemoglobin Concent 33, Red Cell Distribution Width 14.5, Platelet Count 588H, Mean Platelet Volume 8.4, Sodium Level 133L, Potassium Level 3.3L, Chloride Level 94L, Carbon Dioxide Level 25, Anion Gap 14, Blood Urea Nitrogen 17, Creatinine 0.72, Estimat Glomerular Filtration Rate > 60, BUN/Creatinine Ratio 24, Glucose Level 110H, Calcium Level 9.9, Magnesium Level 2.1, Total Bilirubin 0.5, Aspartate Amino Transf (AST/SGOT) 27, Alanine Aminotransferase (ALT/SGPT) 16, Alkaline Phosphatase 166H, Total Protein 8.0, Albumin 4.5 Assessment/Plan Assessment s/p subcapital femur frx left hip s/p perc pinning NWB LLE HTN controlled Hyponatremia-improving Hypokalemia-replacement provided Postop anemia Resolved stage 1 pressure sore sacrum UTI treated Plan Discharge today to home with Spouse and HHC F/U with PCP and Orthopedics See orders. KIYA PEREZ MD May 09, 2017 07:55
[2017-05-09] MEDS ORDERED: HYDR-3816 PO (07:59)
[2017-05-09] MEDS: DILTIAZEM 30 MG (CARDIZEM) TAB PO SCH ×2 (07:59→13:42)
[2017-05-09] MEDS: TRIAMTERENE/HCTZ 75-50 (MAXZIDE,DYAZIDE) TABLET PO SCH (07:59)
[2017-05-09] MEDS: DOCUSATE SODIUM 100 MG (COLACE) CAP PO SCH (07:59)
[2017-05-09] MEDS: IRON POLYSAC 150 MG CAP (NIFEREX) PO SCH (07:59)
[2017-05-09] MEDS ORDERED: DILT30TA PO (07:59)
[2017-05-09] MEDS: DICLOFENAC 1% GEL 100 GM (VOLTAREN) TUBE TOP SCH (08:00)
[2017-05-09] MEDS ORDERED: DICL100G18 TOP (09:13)
--- NOTE | 2017-05-09 09:18 | D/C HH Face to Face Order ---
D/C Face to Face Orders Instructions for Patient Patient Instructions/FollowUp: non weight bearing left leg follow up with lety asencio in one week Physician to follow Patient: lety Discharge Diet for Home: Regular Diet Patient Problems: hip pain, hip fracture, left knee pain, hypertension, weakness, hyponatremia, anemia Patient Data-Allergies,Ht & Wt Patient Allergies: Coded Allergies: bacitracin (Verified Allergy, Unknown, 10/06/15) lidocaine (Verified Allergy, Unknown, 10/06/15) neomycin (Verified Allergy, Unknown, 10/06/15) polymyxin B (Verified Allergy, Unknown, 10/06/15) pramoxine (Verified Allergy, Unknown, 10/06/15) Height (Feet): 5 Height (Inches): 3.00 Weight (Pounds): 82 Weight (Ounces): 6.4 Home Health Need/Face to Face Date of Face to Face: May 09, 2017 Clinical Findings: Non or partial weight bearing I have seen Pt [id number]: Yes Discharged To: Home Diagnosis/Conditions: hip pain, hip fracture, left knee pain, hypertension, weakness, hyponatremia, anemia Problems/Diagnosis/Condition: Patient is Homebound due to: Muscle weakness, Non-weight bearing Homebound Status Due to the above stated illness, injury or surgical procedure (medical condition or diagnosis) and associated clinical findings, the patient is homebound because of his/her inability to leave home except with aid of a supportive device and/or person AND leaving the home requires a considerable and taxing effort or is medically contraindicated. Pt req the following assistanc: Walker Home Health Nursing Orders Home Health Services Order: Nursing Services, Physical Therapy-Evaluate & Treat Home Health Infusion Therapy Line Start Time: 1120 Line Type: Saline Lock Site Location: Forearm Therapy Orders Therapy Orders: Physical Therapy Therapy Specific Orders: Eval assistive deivces, Teach enviro modifications/ safety, Increase strength/endurance Certify Stmt I certify that this patient is under my care and that I, a nurse practitioner or a physician; a horticultural nursery assistant working with me, had a face to face encounter that - meets the physician face to face encounter requirements with this patient as dated. ZEV FARRAR MD May 09, 2017 09:18
--- NOTE | 2017-05-09 09:19 | Progress Note (SOAP) ---
Subjective Date Seen by Provider: May 09, 2017 Time Seen by Provider: 09:10 Subjective/Events-last exam PT REPORTS THAT THE NECK RUB HAS HELPED HER NECK. SHE STATES THAT SHE IS FEELING BETTER, SHE IS DOING WELL WITH HER WALKER. Review of Systems HEADACHE AT THE END OF THE DAY Objective Exam Vital Signs Date Time Temp Pulse Resp B/P (MAP) Pulse Ox O2 Delivery O2 Flow Rate FiO2 05/09/17 08:17 Room Air 05/09/17 06:25 96.9 87 20 145/65 97 Room Air 05/08/17 20:00 Room Air 05/08/17 17:21 96.9 97 20 131/69 97 Room Air I & O 05/09/17 07:00 Intake Total 1540 ml Balance 1540 ml Capillary Refill : Less Than 3 Seconds General Appearance: No Apparent Distress, WD/WN, Thin HEENT: PERRL/EOMI, Pharynx Normal Neck: Full Range of Motion Respiratory: Chest Non Tender, Lungs Clear, Normal Breath Sounds Cardiovascular: Regular Rate, Rhythm Gastrointestinal: normal bowel sounds, non tender, soft Extremity: No Pedal Edema Neurologic/Psychiatric: Alert, Oriented x3, No Motor/Sensory Deficits, Normal Mood/Affect Lymphatic: No Adenopathy Results Lab Laboratory Tests 05/08/17 09:54: White Blood Count 5.4, Red Blood Count 3.82L, Hemoglobin 11.9#, Hematocrit 36, Mean Corpuscular Volume 94, Mean Corpuscular Hemoglobin 31, Mean Corpuscular Hemoglobin Concent 33, Red Cell Distribution Width 14.5, Platelet Count 588H, Mean Platelet Volume 8.4, Sodium Level 133L, Potassium Level 3.3L, Chloride Level 94L, Carbon Dioxide Level 25, Anion Gap 14, Blood Urea Nitrogen 17, Creatinine 0.72, Estimat Glomerular Filtration Rate > 60, BUN/Creatinine Ratio 24, Glucose Level 110H, Calcium Level 9.9, Magnesium Level 2.1, Total Bilirubin 0.5, Aspartate Amino Transf (AST/SGOT) 27, Alanine Aminotransferase (ALT/SGPT) 16, Alkaline Phosphatase 166H, Total Protein 8.0, Albumin 4.5 Assessment/Plan Assessment/Plan Assess & Plan/Chief Complaint LEFT HIP FRACTURE HYPOMAGNESEMIA HYPOPHOSPHATEMIA ANEMIA FRAILTY DEPRESSION HYPERTENSION GERD HYPERLIPIDEMIA LEFT HIP FRACTURE - CONTINUE WITH PHYSICAL THERAPY - MONITOR SYMPTOMS - IMPROVING. HYPOMAGNESEMIA AND HYPOPHOSPHATEMIA - MONITOR SYMPTOMS - STABLE ANEMIA - MONITOR SYMPTOMS. FRAILTY DEPRESSION - CONTINUE WITH HOME MEDICATIONS. HYPERTENSION - RESUME HOME MEDICATIONS. GERD - RESUME HOME MEDICATIONS. HYPERLIPIDEMIA - CONTINUE SUPPORTIVE CARE, HOME MEDICATIONS. Clinical Quality Measures DVT/VTE Risk/Contraindication: Risk Factor Score Per Nursin RFS Level Per Nursing on Admit: 4+=Very High ZEV FARRAR MD May 09, 2017 09:19
--- NOTE | 2017-05-09 09:45 | Therapy Team Discharge Summary ---
Therapy Discharge Summary Discharge Recommendations Date of Discharge Therapy D/C Recommendations: Physical Therapy Home Care Physical Therapy This patient has been seen for skilled PT on ARU post fall with femoral neck fracture. She has been NWB since the surgical repair. Prior to the fall, the patient was indep with all mobiltiy and had a usual routine of walking daily at the local mall for exercise. Upon admit to ARU, she required min assist with transfers, ambualated 10 ft with FWW with mod assist NWB and hopped up/down 1 step with mod asssit . Treatment focused on functional strength and mobility as well as safety with gait/transfers and NWB status. She has made excellent progress and is mod indep with all gait and transfers at this time. Pt to discharge home with her spouse this date and [facility] PT to follow. PT Tavern Car Attendant Goals Tavern Car Attendant Goals PT Tavern Car Attendant Goals Time Frame: May 19, 2017 Transfers (B,C,W/C) (FIM): 6 (met) Roll Left to Right (QC): 5 (exceeded) Sit to Lying (QC): 5 (exceeded ) Lying-Sitting on Side/Bed(QC): 5 (exceeded) Sit to Stand (QC): 5 (exceeded) Chair/Hxn-mg-Zaeyp Xfer(QC): 5 (exceeded) Car Transfer (QC): 5 Does the Patient Walk: Yes Gait (FIM): 1 (xceeded; scored a 6) Gait distance (FIM): 1=up to 49 ft (45') Distance: 45' Walk 10 feet (QC): 5 Walk 10ft-Uneven Surface(QC): 5 Walk 50ft with 2 Turns (QC): 88 Walk 150 ft (QC): 88 Gait Level of Assist: 6 Gait Assistive Device: FWW Stairs (FIM): 2 (exceeded; scored a 5) # of Steps: 4 1 Step (curb) (QC): 5 (exceeded) 4 Steps (QC): 4 (exceeded) 12 Steps (QC): 88 Stairs Level Of Assist: 5 Picking up an Object (QC): 5 (88) All goals have been met or exceeded OT Senior Living Goals Tavern Car Attendant Goals Time Frame: May 16, 2017 Eating (FIM): 6 (met-) Eating (QC): 6 (met-) Oral Hygiene (QC): 6 (met-) Grooming(FIM): 6 (met-) Bathing(FIM): 5 (met-) Shower/Bathe Self (QC): 5 (met-) Upper Body Dressing(FIM): 5 (met-) Upper Body Dressing (QC): 5 (met-) Lower Body Dressing(FIM): 5 (met-) Lower Body Dressing (QC): 5 (met-) On/Off Footwear (QC): 5 (met-) Toileting(FIM): 6 (not met) Toilet/Commode Transfer(FIM): 6 (met-) Toilet/Commode Transfer (QC): 6 (met-) Shower Transfer(FIM): 5 (met-) Additional Goals: 1-Demonstrate ADL Tasks, 2-Verbalize Understanding, 3- ImproveStrength/Damien 1=Demonstrate adherence to instructed precautions during ADL tasks. 2=Patient will verbalize/demonstrate understanding of assistive devices/ modifications for ADL. 3=Patient will improve strength/tolerance for activity to enable patient to perform ADL's. MANJU HARRIS PT May 09, 2017 09:45
--- NOTE | 2017-05-09 09:48 | Physical Therapy Daily Note ---
PT Daily Note-Current Subjective Pt reports she is going home today. She reports she feels ready for discharge but is a little anxious about it. Notes, she has been in the hospital 2 weeks. Transfers Functional [place] Measure 0=Not Assessed/NA 4=Minimal Assistance 1=Total Assistance 5=Supervision or Setup 2=Maximal Assistance 6=Modified [place] 3=Moderate Assistance 7=Complete IndependenceIRFPAI Quality Coding Scale 6 Independent with activity with or without an assistive device 5 Patient requires set up or clean up by helper. Patient completes activity by themselves 4 Supervision or touching assist (CGA). [place] provide cues , steadying assist 3 The helper provides less than half the effort to complete the activity 2 The helper provides more than half the effort to complete the activity 1 Dependent. The helper does all the effort to complete an activity 7 Patient refused to complete or attempt activity 9 The patient did not perform the activity before the current illness or injury 88 Not attempted due to Medical conditions or safety concerns Treatments Reviewed safety with the patient in terms of transfers, gait and mobility using the FWW in her home. Educated/reminded her how well she has been doing with transfers and gait; educated her to to take her time and if in doubt, to ask for help. Reviewed NWB status until cleared by doctor. Pt verbalized understanding of all and voiced no concerns at this time. Pt to discharge later today. [facility] PT to follow. Assessment Current Status: Excellent Progress Meeting goals PT Short Term Goals Short Term Goals Wheelchair Distance: 75' PT Nursing Home Goals Nursing Home Goals PT Nuclear Powerplant Supervisor Goals Time Frame: May 19, 2017 Transfers (B,C,W/C) (FIM): 6 (met) Sit to Lying (QC): 5 (exceeded ) Lying-Sitting on Side/Bed(QC): 5 (exceeded) Sit to Stand (QC): 5 (exceeded) Rollin Roll Left to Right (QC): 5 (exceeded) Chair/Sts-fv-Oaibf Xfer(QC): 5 (exceeded) Car Transfer (QC): 5 Does the Patient Walk: Yes Gait (FIM): 1 (xceeded; scored a 6) Gait distance (FIM): 1=up to 49 ft (45') Distance: 45' Walk 10 feet (QC): 5 Walk 10ft-Uneven Surface(QC): 5 Walk 50ft with 2 Turns (QC): 88 Walk 150 ft (QC): 88 Gait Level of Assist: 6 Gait Assistive Device: FWW Stairs (FIM): 2 (exceeded; scored a 5) # of Steps: 4 1 Step (curb) (QC): 5 (exceeded) 4 Steps (QC): 4 (exceeded) 12 Steps (QC): 88 Stairs Level Of Assist: 5 Picking up an Object (QC): 5 (88) PT Plan Problem List Problem List: Activity Tolerance, Functional Strength, Safety, Gait Treatment/Plan Treatment Plan: Discontinue PT, goals met Treatment Plan: Bed Mobility, Education, Functional Activity Damien, Functional Strength, Group Therapy, Gait, Safety, Therapeutic Exercise, Transfers Treatment Duration: May 19, 2017 Frequency: At least 5-7 days/Wk (IRF) Estimated Hrs Per Day: 1.5 hours per day Patient and/or Family Agrees t: Yes Safety Risks/Education Patient Education: Reviewed Precautions, Safety Issues Teaching Recipient: Patient Teaching Methods: Discussion Response to Teaching: Verbalize Understanding, Return Demonstration Discharge Recommendations Therapy D/C Recommendations: Physical Therapy Home Care Time/GCodes Time In: 935 Time Out: 945 Total Billed Treatment Time: 10 Total Billed Treatment visit FA 10 MANJU HARRIS PT May 09, 2017 09:48
--- NOTE | 2017-05-09 11:43 | Therapy Team Discharge Summary ---
Therapy Discharge Summary Discharge Recommendations Date of Discharge Therapy D/C Recommendations: Physical Therapy Home Care Occupational Therapy Pt admitted to ARU following left femoral neck fracture s/p pinning. Pt is NWB left LE. On admission pt required minimal assistance with transfers and toileting; mod assist with bathing, and max assist with LE dressing. Skilled OT intervention focused on ADL training, transfers, strengthening, and adaptive equipment training. Pt made good progress with therapy and by discharge is completing eating, grooming, bathing, toilet transfer and shower transfer with modified independence and dressing and toileting with SBA. Pt met all OT fci goals except toileting. Pt is discharging home this date with spouse. D/c ARU OT at this time. PT Collating Machine Operator Goals Collating Machine Operator Goals PT Snf Goals Time Frame: May 19, 2017 Transfers (B,C,W/C) (FIM): 6 (met) Roll Left to Right (QC): 5 (exceeded) Sit to Lying (QC): 5 (exceeded ) Lying-Sitting on Side/Bed(QC): 5 (exceeded) Sit to Stand (QC): 5 (exceeded) Chair/Opu-kg-Zryzn Xfer(QC): 5 (exceeded) Car Transfer (QC): 5 Does the Patient Walk: Yes Gait (FIM): 1 (xceeded; scored a 6) Gait distance (FIM): 1=up to 49 ft (45') Distance: 45' Walk 10 feet (QC): 5 Walk 10ft-Uneven Surface(QC): 5 Walk 50ft with 2 Turns (QC): 88 Walk 150 ft (QC): 88 Gait Level of Assist: 6 Gait Assistive Device: FWW Stairs (FIM): 2 (exceeded; scored a 5) # of Steps: 4 1 Step (curb) (QC): 5 (exceeded) 4 Steps (QC): 4 (exceeded) 12 Steps (QC): 88 Stairs Level Of Assist: 5 Picking up an Object (QC): 5 (88) OT Collating Machine Operator Goals Collating Machine Operator Goals Time Frame: May 16, 2017 Eating (FIM): 6 (met-) Eating (QC): 6 (met-) Oral Hygiene (QC): 6 (met-) Grooming(FIM): 6 (met-) Bathing(FIM): 5 (met-) Shower/Bathe Self (QC): 5 (met-) Upper Body Dressing(FIM): 5 (met-) Upper Body Dressing (QC): 5 (met-) Lower Body Dressing(FIM): 5 (met-) Lower Body Dressing (QC): 5 (met-) On/Off Footwear (QC): 5 (met-) Toileting(FIM): 6 (not met) Toilet/Commode Transfer(FIM): 6 (met-) Toilet/Commode Transfer (QC): 6 (met-) Shower Transfer(FIM): 5 (met-) Additional Goals: 1-Demonstrate ADL Tasks, 2-Verbalize Understanding, 3- ImproveStrength/Damien 1=Demonstrate adherence to instructed precautions during ADL tasks. 2=Patient will verbalize/demonstrate understanding of assistive devices/ modifications for ADL. 3=Patient will improve strength/tolerance for activity to enable patient to perform ADL's. BERNARDO DAVIS OT May 09, 2017 11:43
[2017-05-09] MEDS: ACETAMINOPHEN 500 MG TAB (TYLENOL) PO PRN (13:42)
[2017-05-09 14:00] VITALS: BP 145/65
== END 2017-05-09 14:00 | disposition home health service (06) | DRG 560 ==
LOC: ENPENDDIS 05-09 12:00
PROVIDERS: ADMIT Physical Medicine & Rehabilitation; ATTEND Physical Medicine & Rehabilitation
DX: M80.052D Age-related osteoporosis with current pathological fracture, left femur, subsequent encounter for fracture with routine healing (principal); N39.0 Urinary tract infection, site not specified; E87.1 Hypo-osmolality and hyponatremia; D64.9 Anemia, unspecified; E87.6 Hypokalemia; I10 Essential (primary) hypertension; M19.91 Primary osteoarthritis, unspecified site; K21.9 Gastro-esophageal reflux disease without esophagitis; E83.42 Hypomagnesemia; E83.39 Other disorders of phosphorus metabolism; F32.9 Major depressive disorder, single episode, unspecified; E78.5 Hyperlipidemia, unspecified
CPT/HCPCS: 36415; 80048; 80053; 82274; 83735; 85025; 85027; 94664

== ENCOUNTER 2018-02-01 10:03 | Outpatient (RCR) | payer MEDICARE, OTHER ==
[~2018-02-01 10:03] MED LIST changes: +ACHD5005 PO; +DICL100G18 TOP; +HYDR-34 PO; -HYDR-3812 PO; -HYDR-3816 PO
== END 2018-02-01 10:30 | disposition home or self-care (01) ==
PROVIDERS: ATTEND Family Medicine
DX: M75.21 Bicipital tendinitis, right shoulder (principal)

== ENCOUNTER → 2018-02-20 | Outpatient (CLI) | payer MEDICARE, OTHER ==
--- NOTE | 2018-02-20 19:06 | Diagnostic Imaging Report ---
INDICATION: Routine screening. Comparison is made with prior mammograms from 02/16/2017 and 01/13/2016. 2D and 3D bilateral screening mammography was performed. The current study was also evaluated with a Computer Aided Detection (CAD) system. FINDINGS: Both breasts again demonstrate marked parenchymal density, significantly limiting the sensitivity of mammography. Diffuse bilateral benign parenchymal and vascular calcifications are noted. No dominant mass or malignant-appearing microcalcifications are seen. The axillae are unremarkable. IMPRESSION: No mammographic features suspicious for malignancy are identified. ACR BI-RADS Category 2: Benign findings. Result letter will be mailed to the patient. Note: At least 10% of breast cancer is not imaged by mammography. Dictated by: Dictated on workstation # [id number]
== END ==
LOC: RAD 10:53
PROVIDERS: ATTEND Family Medicine
DX: Z12.31 Encounter for screening mammogram for malignant neoplasm of breast (principal)
CPT/HCPCS: 77067

== ENCOUNTER 2018-10-05 13:02 | Outpatient (RCR) | payer MEDICARE, OTHER | END 2018-10-05 13:36 | disposition home or self-care (01) | PROVIDERS: ATTEND Family Medicine | DX: R53.1 Weakness (principal) ==

== ENCOUNTER → 2019-02-21 | Outpatient (CLI) | payer MEDICARE, OTHER ==
--- NOTE | 2019-02-21 20:46 | Diagnostic Imaging Report ---
INDICATION: Routine screening. Comparison is made with prior mammograms from 02/20/2018 and 02/16/2017. 2-D and 3-D bilateral screening mammography was performed with a Computer Aided Detection (CAD) system. FINDINGS: Both breasts show marked parenchymal density and heterogeneity, limiting the sensitivity of mammography. Diffuse bilateral parenchymal and vascular calcifications are again noted. No dominant mass or malignant-appearing microcalcifications are seen. Axillae are unremarkable. IMPRESSION: No mammographic features suspicious for malignancy are identified. ACR BI-RADS Category 2: Benign findings. Result letter will be mailed to the patient. Note: At least 10% of breast cancer is not imaged by mammography. Dictated by: Dictated on workstation # [id number]
== END ==
LOC: RAD 09:50
PROVIDERS: ATTEND Nurse Practitioner Family
DX: Z12.31 Encounter for screening mammogram for malignant neoplasm of breast (principal)
CPT/HCPCS: 77067

== ENCOUNTER 2019-10-15 08:00 | Outpatient (CLI) | payer MEDICARE, OTHER ==
[~2019-10-15] VITALS: Ht 160 cm; Wt 40.9 kg
[~2019-10-15 08:00] MED LIST changes: +PYRI100T4 PO; +SIMV20TA26 PO
[2019-10-15] MEDS ORDERED: MULT-178 PO (08:12)
[2019-10-15] MEDS ORDERED: BETA1TAB15 PO (08:12)
[2019-10-15] MEDS ORDERED: CYAN250010 PO (08:12)
[2019-10-15] MEDS ORDERED: CHOL200025 PO (08:12)
== END 2019-10-15 10:53 | disposition home or self-care (01) ==
LOC: PREOP 08:00
PROVIDERS: ATTEND Internal Medicine
DX: Z01.818 Encounter for other preprocedural examination (principal)

== ENCOUNTER 2019-12-29 09:00 | Observation (INO) | payer MEDICARE, OTHER ==
[~2019-12-29] VITALS: Ht 160 cm; Wt 37.1 kg
[~2019-12-29 09:00] MED LIST changes: +CHOL200025 PO; +CYAN250010 PO; +MULT-178 PO; +PYRI100T10 PO; -PYRI100T4 PO; -SUCR1ORA PO; +SUCR1ORA15 PO
[2019-12-29 09:11] LABS: BASOPHILS % (AUTO) 0 % (0-10); EOSINOPHILS # (AUTO) 0.2 10^3/uL (0.0-0.3); EOSINOPHILS % (AUTO) 3 % (0-10); HEMATOCRIT 38 % (35-52); HEMOGLOBIN 12.6 G/DL (11.5-16.0); LYMPHOCYTES % (AUTO) 22 % (12-44); MEAN CORPUSCULAR HEMOGLOBIN 31 PG (25-34); MEAN CORPUSCULAR HGB CONC 34 G/DL (32-36); MEAN CORPUSCULAR VOLUME 91 FL (80-99); MONOCYTES # (AUTO) 0.3 X 10^3 (0.0-1.0); MONOCYTES % (AUTO) 7 % (0-12); NEUTROPHILS # (AUTO) 3.1 X 10^3 (1.8-7.8); NEUTROPHILS % (AUTO) 67 % (42-75); PLATELET COUNT 290 10^3/uL (130-400); RED CELL DISTRIBUTION WIDTH 14.1 % (10.0-14.5); WHITE BLOOD COUNT 4.6 10^3/uL (4.3-11.0)
[2019-12-29 09:23] LABS: BILIRUBIN,URINE NEGATIVE (NEGATIVE); CLARITY,URINE CLEAR; COLOR,URINE YELLOW; GLUCOSE, URINE (UA) NEGATIVE (NEGATIVE); KETONES,URINE 1+ (NEGATIVE); LEUKOCYTE ESTERASE ,URINE NEGATIVE (NEGATIVE); NITRITE,URINE NEGATIVE (NEGATIVE); PH,URINE 8.5 (5-9); PROTEIN,URINE NEGATIVE (NEGATIVE)
[2019-12-29 09:28] LABS: INR 0.9 (0.8-1.4); PROTHROMBIN TIME PATIENT 12.9 SEC (12.2-14.7)
[2019-12-29 09:29] LABS: AMORPHOUS SEDIMENT,UR MOD AMOR PHOSPHATE /LPF; BACTERIA,URINE NEGATIVE /HPF; WBC,URINE RARE /HPF
[2019-12-29 09:35] LABS: ALANINE AMINOTRANSFERASE 27 U/L (0-55); ALBUMIN 4.4 GM/DL (3.2-4.5); ALKALINE PHOSPHATASE 69 U/L (40-136); BILIRUBIN,TOTAL 0.5 MG/DL (0.1-1.0); BUN/CREATININE RATIO 18; CALCIUM 9.4 MG/DL (8.5-10.1); CARBON DIOXIDE 23 MMOL/L (21-32); CHLORIDE 96 MMOL/L (98-107); CREATININE SERUM 0.85 MG/DL (0.60-1.30); GFR ESTIMATED > 60; GLUCOSE 139 MG/DL (70-105); MAGNESIUM 1.8 MG/DL (1.6-2.4); POTASSIUM 3.9 MMOL/L (3.6-5.0); SODIUM 134 MMOL/L (135-145); TOTAL PROTEIN 7.4 GM/DL (6.4-8.2)
--- NOTE | 2019-12-29 09:42 | Diagnostic Imaging Report ---
HISTORY: Dizziness and syncope TECHNIQUE: Single frontal view the chest COMPARISON: 11/11/2016 FINDINGS: Lung volumes are very large. No focal consolidation is seen. There is no pleural effusion or pneumothorax. There is biapical pleural scarring. The cardiac silhouette is mildly large but stable in size. IMPRESSION:. Large lung volumes with no acute pulmonary abnormality seen. Dictated by: Dictated on workstation # [id number]
--- NOTE | 2019-12-29 09:53 | Diagnostic Imaging Report ---
PROCEDURE: CT head and CT cervical spine without contrast. TECHNIQUE: Multiple contiguous axial images were obtained through the brain and cervical spine without the use of intravenous contrast. Sagittal and coronal reformations through the cervical spine were then performed. Auto Exposure Controls were utilized during the CT exam to meet ALARA standards for radiation dose reduction. INDICATION: Fall with head and neck injury; syncope Comparison is made to previous study of 04/21/2017. CT HEAD: CT images of the head were obtained. FINDINGS: Ventricles and sulci are within normal limits for size. There is no intracranial hemorrhage identified. There is no abnormal mass effect or shift of midline structures. IMPRESSION: Unremarkable CT of the head. CT CERVICAL SPINE: There is continued disc space narrowing at C3-C4 and and C5-C7 with grade 1 anterolisthesis of C4 on C5. There is also parenchymal density lung apices which are not appreciably changed given differences in technique, this would suggest scarring. No acute fracture or malalignment is identified. IMPRESSION: Chronic findings including extensive senescent change in the cervical spine similar to previous study. There is no CT evidence of acute cervical spinal abnormality. Dictated by: Dictated on workstation # [id number]
--- NOTE | 2019-12-29 09:56 | Diagnostic Imaging Report ---
PROCEDURE: CT pelvis without contrast. TECHNIQUE: Multiple contiguous axial images were obtained through the pelvis without the use of intravenous contrast. Sagittal and coronal reformations were performed. Auto Exposure Controls were utilized during the CT exam to meet ALARA standards for radiation dose reduction. INDICATION: Fall, tailbone injury. COMPARISON: CT from 11/07/2016 FINDINGS: There is diffuse osteopenia. There is a nondisplaced fracture at the S5 level (image 87 series 602). Alignment appears normal. There are severe degenerative changes at L5-S1 and in the left hip joint. There are moderate degenerative changes in the right hip joint. There is internal fixation of the left femoral neck with 3 cephalo-cervical screws. These contact the cortex without significant extension beyond the cortex of the femoral head. There are mild degenerative changes in the sacroiliac joints bilaterally. No soft tissue fluid collections are seen. No focal muscular atrophy is seen. No distended loops of bowel are identified. The intrapelvic contents are suboptimally evaluated without contrast. There may be minimal free fluid the tip of the liver. There is marked relaxation of the pelvic floor with concern for prolapse. IMPRESSION: 1. Degenerative changes in the pelvis with nondisplaced fracture at the 5th sacral segment. 2. 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 3. Suspect minimal free fluid at the inferior tip of the liver. Dictated by: Dictated on workstation # [id number]
[2019-12-29 10:16] VITALS: BP_SYST 138; BP_SYST 162; BP_SYST 170; BP_DIAS 76; BP_DIAS 80
[2019-12-29] MEDS ORDERED: NS IV 500 ML 500 ML IV ONE (10:24)
--- NOTE | 2019-12-29 10:29 | ED Syncope ---
General Chief Complaint: Dizziness/Syncope Stated Complaint: SYNCOPE Nursing Triage Note: PT ARRIVED PER EMS, PT STATES SHE SAT DOWN AND PASSED OUT FROM CHAIR HITTING R SIDE OF HEAD, AND HAS TAILBONE PAIN. Source of Information: Patient, EMS Exam Limitations: No Limitations History of Present Illness Date Seen by Provider: Dec 29, 2019 Time Seen by Provider: 09:05 Initial Comments This 84-year-old woman presents to the emergency room via EMS. She had a syncopal episode without prodrome while in the kitchen. It is unclear whether she was standing or sitting at the time of the syncopal episode. She reports hitting her head without injury and "tailbone pain". Review of her chart notes that she had a similar episode in 2017 when she suffered a syncopal episode with collapse and a subsequent hip fracture requiring surgical repair. Patient denies any known cardiac problems. 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 She does not recall having any carotid artery studies performed. She denies diabetes or hypoglycemia. Dr. Bradshaw is her primary care provider. She was able to ambulate from her home to the ambulance. Allergies and Home Medications Allergies Coded Allergies: bacitracin (Verified Allergy, Mild, RASH, 10/15/19) lidocaine (Verified Allergy, Mild, RASH, 10/15/19) neomycin (Verified Allergy, Mild, RASH, 10/15/19) polymyxin B (Verified Allergy, Mild, RASH, 10/15/19) pramoxine (Verified Allergy, Mild, RASH, 10/15/19) Home Medications Acetaminophen 650 Mg Tablet.er, 650 MG PO HS, (Reported) Acetaminophen 650 Mg Tablet.er, 650 MG PO DAILY PRN for PAIN-MILD, (Reported) Calcium Carbonate 300 Mg Tab.chew, 300 MG PO PRN PRN for INDIGESTION, (Reported) Calcium Citrate/Vitamin D3 1 Each Tablet, 1 TAB PO DAILY, (Reported) Cetirizine HCl 10 Mg Tablet, 10 MG PO DAILY, (Reported) Cholecalciferol (Vitamin D3) 2,000 Unit Tablet, 2,000 UNIT PO DAILY, (Reported) Cyanocobalamin (Vitamin B-12) 2,500 Mcg Tablet, 2,500 MCG PO Q48H, (Reported) Diltiazem HCl 30 Mg Tablet, 30 MG PO QID Prescribed by: KIYA PEREZ on 05/09/17 0759 Docusate Sodium 100 Mg Capsule, 100 MG PO BID, (Reported) Escitalopram Oxalate 5 Mg Tablet, 5 MG PO HS, (Reported) Famotidine 40 Mg Tablet, 40 MG PO HS, (Reported) Multivitamin 1 Each Tablet, 1 EACH PO DAILY, (Reported) Pyridoxine HCl 100 Mg Tablet, 100 MG PO BID, (Reported) Simvastatin 20 Mg Tablet, 20 MG PO HS, (Reported) Triamterene/Hydrochlorothiazid 1 Each Tablet, 1 TAB PO DAILY, (Reported) Vit A/Vit C/Vit E/Zinc/Copper 1 Each Tablet, 1 EACH PO DAILY, (Reported) Patient Home Medication List Home Medication List Reviewed: Yes Review of Systems Constitutional: no symptoms reported EENTM: no symptoms reported Respiratory: no symptoms reported Cardiovascular: see HPI Gastrointestinal: no symptoms reported Genitourinary: no symptoms reported Musculoskeletal: see HPI Skin: no symptoms reported Psychiatric/Neurological: No Symptoms Reported Past [id number] Hx Past Med/Social Hx: Reviewed and Corrections made Patient Social History Alcohol Use: Denies Use Recreational Drug Use: No Smoking Status: Never a Smoker 2nd Hand Smoke Exposure: No Recent Foreign Travel: No Contact w/Someone Who Travel: No Recent Infectious Disease Expo: No Recent Hopitalizations: No Immunizations Up To Date Tetanus Booster (TDap): Unknown Date of Pneumonia Vaccine: Jul 01, 2019 Date of Influenza Vaccine: Jul 01, 2019 Seasonal Allergies Seasonal Allergies: Yes Past Medical History Surgeries: Yes (RSO, BREAST BX, CATARACTS, BOWEL RESCTION, FX HIP) Breast, Hysterectomy Respiratory: No (ASTHMA CHILD) Currently Using CPAP: No Currently Using BIPAP: No Cardiac: Yes High Cholesterol, Hypertension, Syncope Neurological: No : No 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: No 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 DOWN SYNDROME) Hypertension 19 MOTHER G8 SISTER Kidney disease sister Myocardial infarction 19 FATHER Neoplasm 19 MOTHER (BREAST CANCER) Visual disorder 19 MOTHER (MACULAR DEGENERATION) Hypertension Physical Exam Vital Signs Vital Signs - First Documented 12/29/19 09:00 Temp 36.5 Pulse 71 Resp 20 B/P (MAP) 140/103 (115) Pulse Ox 100 Capillary Refill : Less Than 3 Seconds Height, Weight, BMI Height: 5'3.00" Weight: 82lbs. 6.4oz. [id number]; 16.00 BMI Method:Stated General Appearance: No Apparent Distress, WD/WN HEENT: PERRL/EOMI, Normal ENT Inspection Neck: Normal Inspection; No Carotid Bruit, No JVD Cardiovascular: Regular Rate, Rhythm, No Edema, Systolic Murmur (subtle) Respiratory: Lungs Clear, Normal Breath Sounds, No Accessory Muscle Use, No Res piratory Distress Gastrointestinal: Normal Bowel Sounds, Non Tender, Soft Extremities: Normal Inspection, Non Tender, No Pedal Edema Neurologic/Psychiatric: Alert, Oriented x3, No Motor/Sensory Deficits, Normal Mood/Affect Cranial Nerves: Normal Hearing, Normal Speech Motor/Sensory: No Motor Deficit, No Sensory Deficit Progress/Results/Core Measures Results/Orders Lab Results Laboratory Tests Test 12/29/19 09:05 12/29/19 09:15 Range/Units White Blood Count 4.6 4.3-11.0 10^3/uL Red Blood Count 4.13 L 4.35-5.85 10^6/uL Hemoglobin 12.6 11.5-16.0 G/DL Hematocrit 38 35-52 % Mean Corpuscular Volume 91 80-99 FL Mean Corpuscular Hemoglobin 31 25-34 PG Mean Corpuscular Hemoglobin Concent 34 32-36 G/DL Red Cell Distribution Width 14.1 10.0-14.5 % Platelet Count 290 130-400 10^3/uL Mean Platelet Volume 9.0 7.4-10.4 FL Neutrophils (%) (Auto) 67 42-75 % Lymphocytes (%) (Auto) 22 12-44 % Monocytes (%) (Auto) 7 0-12 % Eosinophils (%) (Auto) 3 0-10 % Basophils (%) (Auto) 0 0-10 % Neutrophils # (Auto) 3.1 1.8-7.8 X 10^3 Lymphocytes # (Auto) 1.0 1.0-4.0 X 10^3 Monocytes # (Auto) 0.3 0.0-1.0 X 10^3 Eosinophils # (Auto) 0.2 0.0-0.3 10^3/uL Basophils # (Auto) 0.0 0.0-0.1 10^3/uL Prothrombin Time 12.9 12.2-14.7 SEC INR Comment 0.9 0.8-1.4 Activated Partial Thromboplast Time 33 24-35 SEC Sodium Level 134 L 135-145 MMOL/L Potassium Level 3.9 3.6-5.0 MMOL/L Chloride Level 96 L 98-107 MMOL/L Carbon Dioxide Level 23 21-32 MMOL/L Anion Gap 15 H 5-14 MMOL/L Blood Urea Nitrogen 15 7-18 MG/DL Creatinine 0.85 0.60-1.30 MG/DL Estimat Glomerular Filtration Rate > 60 BUN/Creatinine Ratio 18 Glucose Level 139 H 70-105 MG/DL Calcium Level 9.4 8.5-10.1 MG/DL Corrected Calcium 9.1 8.5-10.1 MG/DL Magnesium Level 1.8 1.6-2.4 MG/DL Total Bilirubin 0.5 0.1-1.0 MG/DL Aspartate Amino Transf (AST/SGOT) 31 5-34 U/L Alanine Aminotransferase (ALT/SGPT) 27 0-55 U/L Alkaline Phosphatase 69 40-136 U/L Myoglobin 35.7 10.0-92.0 NG/ML Troponin I < 0.028 <0.028 NG/ML Total Protein 7.4 6.4-8.2 GM/DL Albumin 4.4 3.2-4.5 GM/DL Urine Color YELLOW Urine Clarity CLEAR Urine pH 8.5 5-9 Urine Specific Riner 1.015 L 1.016-1.022 Urine Protein NEGATIVE NEGATIVE Urine Glucose (UA) NEGATIVE NEGATIVE Urine Ketones 1+ H NEGATIVE Urine Nitrite NEGATIVE NEGATIVE Urine Bilirubin NEGATIVE NEGATIVE Urine Urobilinogen 0.2 < = 1.0 MG/DL Urine Leukocyte Esterase NEGATIVE NEGATIVE Urine RBC (Auto) NEGATIVE NEGATIVE Urine RBC 2-5 H /HPF Urine WBC RARE /HPF Urine Squamous Epithelial Cells 2-5 /HPF Urine Crystals PRESENT H /LPF Urine Amorphous Sediment MOD MARIAH PHOSPHATE H /LPF Urine Bacteria NEGATIVE /HPF Urine Casts NONE /LPF Urine Mucus NEGATIVE /LPF Urine Culture Indicated NO My Orders Orders - HARMONY JIANG MD Cbc With Automated Diff (12/29/19 09:05) Comprehensive Metabolic Panel (12/29/19 09:05) Magnesium (12/29/19 09:05) Ua Culture If Indicated (12/29/19 09:05) Ed Iv/Invasive Line Start (12/29/19 09:05) Ekg Tracing (12/29/19:05) Monitor-Rhythm Ecg Trace Only (12/29/19:05) Orthostatic Vital Signs (Adult (12/29/19 09:05) Ct Head/Cervical Spine Wo (12/29/19 09:11) Chest 1 View, Ap/Pa Only (12/29/19:11) Myoglobin Serum (12/29/19:11) Protime With Inr (12/29/19:11) Partial Thromboplastin Time (12/29/19:11) O2 (12/29/19 09:11) Lipid Panel (12/30/19 06:00) Troponin I (12/29/19 09:11) Ct Pelvis Wo (12/29/19 09:11) Vital Signs/I&O 12/29/19 12/29/19 09:00 10:16 Temp 36.5 Pulse 71 65 66 77 Resp 20 B/P (MAP) 140/103 (115) 170/80 (110) 162/76 (104) 138/80 (99) Pulse Ox 100 Blood Pressure Mean: 99 Progress Progress Note : Time: 10:27 Progress Note Patient was seen and examined. CT exams of the head, cervical spine, and pelvis were reviewed. She was found to have a stable sacral fracture. Due to history of a syncopal episode today and one in 2017 both causing injury, admission was felt appropriate for further investigation. This was discussed with Dr. Hernandez who agrees with admission. Case was also discussed with Dr. Bradshaw. Patient did not require any pain medication while in the ER. There is a slight change in orthostatic pressures. Lying systolic pressure was 170. His standing systolic blood pressure was 138. A 500 mL normal saline bolus is being given. Plan is for admission for observation. A 2-D echocardiogram and carotid ultrasound will be ordered for the morning. She will be kept on telemetry. Hydrocodone was ordered for pain management. Initial ECG Impression Date: Dec 29, 2019 Initial ECG Impression Time: 06:32 Initial ECG Rate: 66 Initial ECG Rhythm: Normal Sinus Comment Sinus rhythm with PVCs. No ST elevation or depression. Right bundle branch blo ck. Diagnostic Imaging Diagonstic Imaging: CT Plain Films/CT/US/NM/MRI: pelvis Comments CT pelvis viewed by me and report reviewed. See report below: NAME: YANNA LONG [facility] REC#: [id number] PT STATUS: REG ER : 1935 PHYSICIAN: HARMONY JIANG MD ADMIT DATE: 12/29/19/ER Draft Date of Exam:12/29/19 CT PELVIS WO PROCEDURE: CT pelvis without contrast. TECHNIQUE: Multiple contiguous axial images were obtained through the pelvis without the use of intravenous contrast. Sagittal and coronal reformations were performed. Auto Exposure Controls were utilized during the CT exam to meet ALARA standards for radiation dose reduction. INDICATION: Fall, tailbone injury. COMPARISON: CT from 11/07/2016 FINDINGS: There is diffuse osteopenia. There is a nondisplaced fracture at the S5 level (image 87 series 602). Alignment appears normal. There are severe degenerative changes at L5-S1 and in the left hip joint. There are moderate degenerative changes in the right hip joint. There is internal fixation of the left femoral neck with 3 cephalo-cervical screws. These contact the cortex without significant extension beyond the cortex of the femoral head. There are mild degenerative changes in the sacroiliac joints bilaterally. No soft tissue fluid collections are seen. No focal muscular atrophy is seen. No distended loops of bowel are identified. The intrapelvic contents are suboptimally evaluated without contrast. There may be minimal free fluid the tip of the liver. There is marked relaxation of the pelvic floor with concern for prolapse. IMPRESSION: 1. Degenerative changes in the pelvis with nondisplaced fracture at the 5th sacral segment. 2. 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 3. Suspect minimal free fluid at the inferior tip of the liver. Dictated on workstation # [id number] Dict: 12/29/19 0946 Trans: 12/29/19 0956 [facility] [id number] Interpreted by: OSWALDO CORREIA MD Diagonstic Imaging: CT Plain Films/CT/US/NM/MRI: c-spine, head Comments CT head and C-spine viewed by me and report reviewed. See report below: NAME: YANNA LONG [facility] REC#: [id number] PT STATUS: REG ER : 1935 PHYSICIAN: HARMONY JIANG MD ADMIT DATE: 12/29/19/ER Draft Date of Exam:12/29/19 CT HEAD/CERVICAL SPINE WO PROCEDURE: CT head and CT cervical spine without contrast. TECHNIQUE: Multiple contiguous axial images were obtained through the brain and cervical spine without the use of intravenous contrast. Sagittal and coronal reformations through the cervical spine were then performed. Auto Exposure Controls were utilized during the CT exam to meet ALARA standards for radiation dose reduction. INDICATION: Fall with head and neck injury; syncope Comparison is made to previous study of 04/21/2017. CT HEAD: CT images of the head were obtained. FINDINGS: Ventricles and sulci are within normal limits for size. There is no intracranial hemorrhage identified. There is no abnormal mass effect or shift of midline structures. IMPRESSION: Unremarkable CT of the head. CT CERVICAL SPINE: There is continued disc space narrowing at C3-C4 and and C5-C7 with grade 1 anterolisthesis of C4 on C5. There is also parenchymal density lung apices which are not appreciably changed given differences in technique, this would suggest scarring. No acute fracture or malalignment is identified. IMPRESSION: Chronic findings including extensive senescent change in the cervical spine similar to previous study. There is no CT evidence of acute cervical spinal abnormality. Dictated on workstation # [id number] Dict: 12/29/19 0946 Trans: 12/29/19 0952 [facility] [id number] Interpreted by: KAYA QUIÑONES MD Diagonstic Imaging: Xray Plain Films/CT/US/NM/MRI: chest Comments Chest x-ray report reviewed. See report below: NAME: YANNA LONG [facility] REC#: [id number] PT STATUS: REG ER : 1935 PHYSICIAN: HARMONY JIANG MD ADMIT DATE: 12/29/19/ER Draft Date of Exam:12/29/19 CHEST 1 VIEW, AP/PA ONLY HISTORY: Dizziness and syncope TECHNIQUE: Single frontal view the chest COMPARISON: 11/11/2016 FINDINGS: Lung volumes are very large. No focal consolidation is seen. There is no pleural effusion or pneumothorax. There is biapical pleural scarring. The cardiac silhouette is mildly large but stable in size. IMPRESSION:. Large lung volumes with no acute pulmonary abnormality seen. Dictated on workstation # [id number] Dict: 12/29/19 0939 Trans: 12/29/19 0942 [facility] [id number] Interpreted by: OSWALDO CORREIA MD Departure Communication (Admissions) Time/Spoke to Admitting Phy: 10:20 Dr. Bradshaw Time/Spoke to Consulting Phy: 10:12 Dr. Hernandez Impression Primary Impression: Syncope and collapse Additional Impression: Sacral fracture, closed Qualified Codes: S32.10XA - Unspecified fracture of sacrum, initial encounter for closed fracture Disposition: ADMITTED INPATIENT Condition: Stable Admissions Decision to Admit Reason: Admit from ER (General) Decision to Admit/Date: Dec 29, 2019 Time/Decision to Admit Time: 10:12 Departure-Patient Inst. Referrals: ZEV BRADSHAW MD (PCP/Family) Primary Care Physician Copy Copies To 1: ZEV BRADSHAW MD Copies To 2: CODY HERNANDEZ MD, JOSHUA T MD Dec 29, 2019 10:28
--- NOTE | 2019-12-29 10:53 | NUR ---
DR FARRAR HERE TO SEE PT
[2019-12-29] MEDS ORDERED: ACETAMINOPHEN 325 MG TABLET PO ONE (11:00)
--- OUTSIDE RECORDS SUMMARY | 2019-12-29 11:09 | XMS REPORT | CCD ---
Author Author Ashley Bradshaw Organization [facility] Address [address] [place] [address] Phone Care Team Providers Care Manager R D Name Role Phone PP Unavailable CCM Unavailable Summary Purpose Interface Exchange Insurance Providers Payer name Policy type / Coverage type Covered alliance party ID Effective Begin Date Effective End Date WPS Medicare Part B Medicare Part B [id number] Unknown Unknown CIGNA Medicare Part B [id number] Unknown Unknown Family history Father Diagnosis Age At Onset Coronary Artery Disease Unknown Mother Diagnosis Age At Onset Anemia Unknown Skin cancer Unknown Hypertension Unknown Cancer Unknown Breast cancer Unknown Social History Social History Element Codes Description Effective Dates Marital status Unknown M arrkimberly Shahram 03/04/2015 Number of children Unknown 3 03/04/[address]: 663888978 Never smoker 03/04/[address]: 267505436 Never drinks alcohol 03/04/2015 Allergies, Adverse Reactions, Alerts Substance Reaction Codes Entered Date Inactivated Date Status NEOSPORIN RxNorm: 080424 01/06/2016 No Inactive Date Active Past Medical History Illness Codes Condition Status Onset Date Resolved Date Essential (primary) hypertension ICD-9: 401.9 ICD-10: I10 Active 03/03/2015 Unknown Generalized anxiety disorder ICD-9: 300.02 ICD-10: F41.1 Active 09/06/2016 Unknown Mixed hyperlipidemia ICD-9: 272.2 ICD-10: E78.2 Active 12/12/2017 Unknown Age-related osteopor osis without current pathological fracture ICD-9: 733.00 ICD-10: M81.0 Active 07/05/2016 Unknown Corns and callosities ICD-9: 700 ICD-10: L84 Active 01/09/2019 Unknown Gastro-esophageal re flux disease without esophagitis ICD-9: 530.81 ICD-10: K21.9 Active 05/29/2018 Unknown Pain in left toe(s) ICD- 9: 729.5 ICD-10: M79.675 Active 01/09/2019 Unknown Pain in right toe(s) ICD-9: 729.5 ICD-10: M79.674 Active 01/09/2019 Unknown Underweight ICD-9: 783.22 ICD-10: R63.6 Active 05/25/2017 Unknown Vitamin B12 deficien cy anemia due to intrinsic factor deficiency ICD-9: 281.0 ICD-10: D51.0 Active 09/01/2015 Unknown Dysuria ICD-9: 788.1 ICD-10: R30.0 Active 12/31/2018 Unknown Rash and other nonsp ecific skin eruption ICD-9: 782.1 ICD-10: R21 Active 05/14/2018 Unknown Tinea barbae and tin ea capitis ICD-9: 110.0 ICD-10: B35.0 Active 08/15/2018 Unknown Unsteadiness on feet ICD-9: 781.2 ICD-10: R26.81 Active 08/15/2018 Unknown Weakness ICD-9: 780.79 ICD-10: R53.1 Active 08/15/2018 Unknown Encounter for immuni zation ICD-9: V04.81 ICD-10: Z23 Active 06/23/2016 Unknown Gastro-esophageal re flux disease with esophagitis ICD-9: 530.81 ICD-10: K21.0 Active 03/03/2015 Unknown Other allergic rhinitis ICD-9: 477.8 ICD-10: J30.89 Active 05/29/2018 Unknown Bicipital tendinitis , left shoulder ICD-9: 726.12 ICD-10: M75.22 Active 01/22/2018 Unknown Bicipital tendinitis , right shoulder ICD-9: 726.12 ICD-10: M75.21 Active 01/01/2018 Unknown Pain in right shoulder ICD-9: 719.41 ICD-10: M25.511 Active 01/01/2018 Unknown Actinic keratosis ICD-9: 702.0 ICD-10: L57.0 Active 12/12/2017 Unknown Fracture of unspecif ied part of neck of left femur, subsequent encounter for closed fracture with routine healing ICD-9: V54.13 ICD-10: S72.002D Active 05/16/2017 Unknown Mixed hyperlipidemia ICD-9: 272.4 ICD-10: E78.2 Active 03/03/2015 Unknown Inflamed seborrheic keratosis ICD-9: 702.11 ICD-10: L82.0 Active 09/14/2016 Unknown Frequency of micturi tion ICD-9: 788.41 ICD-10: R35.0 Active 07/05/2016 Unknown Occlusion and stenos is of unspecified carotid artery ICD-9: 433.10 ICD-10: I65.29 Active 09/01/2015 Unknown Other dietary vitami n B12 deficiency anemia ICD-9: 281.1 ICD-10: D51.3 Active 09/01/2015 Unknown VACCIN FOR INFLUENZA ICD-9: V04.81 Active 06/18/2015 Unknown Carpal tunnel syndrome ICD-9: 354.0 Active 06/14/2015 Unknown Inflamed seborrheic keratosis ICD-9: 702.11 Active Unknown Hyperlipidemia Unknown Active 03/04/2015 Unknow n Hypertension Unknown Active 03/04/2015 Unknow n ESOPHAGEAL REFLUX ICD-9: 530.81 Active 03/03/2015 Unknown ESSENTIAL HYPERTENSION ICD-9: 401.9 Active 03/03/2015 Unknown HYPERLIPIDEMIA ICD-9: 272.4 Active 03/03/2015 Unknown Other screening mamm ogram ICD-9: V76.12 Active Unknown Problems Condition Codes Effectiv e Dates Condition Status Essential (primary) hypertension ICD-9: 401.9 ICD-10: I10 03/03/2015 Active Generalized anxiety disorder ICD-9: 300.02 ICD-10: F41.1 09/06/2016 Active Mixed hyperlipidemia ICD-9: 272.2 ICD-10: E78.2 12/12/2017 Active Age-related osteopor osis without current pathological fracture ICD-9: 733.00 ICD-10: M81.0 07/05/2016 Active Corns and callosities ICD-9: 700 ICD-10: L84 01/09/2019 Active Gastro-esophageal re flux disease without esophagitis ICD-9: 530.81 ICD-10: K21.9 05/29/2018 Active Pain in left toe(s) ICD- 9: 729.5 ICD-10: M79.675 01/09/2019 Active Pain in right toe(s) ICD-9: 729.5 ICD-10: M79.674 01/09/2019 Active Underweight ICD-9: 783.22 ICD-10: R63.6 05/25/2017 Active Vitamin B12 deficien cy anemia due to intrinsic factor deficiency ICD-9: 281.0 ICD-10: D51.0 09/01/2015 Active Dysuria ICD-9: 788.1 ICD-10: R30.0 12/31/2018 Active Rash and other nonsp ecific skin eruption ICD-9: 782.1 ICD-10: R21 05/14/2018 Active Tinea barbae and tin ea capitis ICD-9: 110.0 ICD-10: B35.0 08/15/2018 Active Unsteadiness on feet ICD-9: 781.2 ICD-10: R26.81 08/15/2018 Active Weakness ICD-9: 780.79 ICD-10: R53.1 08/15/2018 Active Encounter for immuni zation ICD-9: V04.81 ICD-10: Z23 06/23/2016 Active Gastro-esophageal re flux disease with esophagitis ICD-9: 530.81 ICD-10: K21.0 03/03/2015 Active Other allergic rhinitis ICD-9: 477.8 ICD-10: J30.89 05/29/2018 Active Bicipital tendinitis , left shoulder ICD-9: 726.12 ICD-10: M75.22 01/22/2018 Active Bicipital tendinitis , right shoulder ICD-9: 726.12 ICD-10: M75.21 01/01/2018 Active Pain in right shoulder ICD-9: 719.41 ICD-10: M25.511 01/01/2018 Active Actinic keratosis ICD-9: 702.0 ICD-10: L57.0 12/12/2017 Active Fracture of unspecif ied part of neck of left femur, subsequent encounter for closed fracture with routine healing ICD-9: V54.13 ICD-10: S72.002D 05/16/2017 Active Mixed hyperlipidemia ICD-9: 272.4 ICD-10: E78.2 03/03/2015 Active Inflamed seborrheic keratosis ICD-9: 702.11 ICD-10: L82.0 09/14/2016 Active Frequency of micturi tion ICD-9: 788.41 ICD-10: R35.0 07/05/2016 Active Occlusion and stenos is of unspecified carotid artery ICD-9: 433.10 ICD-10: I65.29 09/01/2015 Active Other dietary vitami n B12 deficiency anemia ICD-9: 281.1 ICD-10: D51.3 09/01/2015 Active VACCIN FOR INFLUENZA ICD-9: V04.81 06/18/2015 Active Carpal tunnel syndrome ICD-9: 354.0 06/14/2015 Active Inflamed seborrheic keratosis ICD-9: 702.11 06/14/2015 Active Hyperlipidemia Unknown 03/04/2015 Active Hypertension Unknown 03/04/2015 Active ESOPHAGEAL REFLUX ICD-9: 530.81 03/03/2015 Active ESSENTIAL HYPERTENSION ICD-9: 401.9 03/03/2015 Active HYPERLIPIDEMIA ICD-9: 272.4 03/03/2015 Active Other screening mamm ogram ICD-9: V76.12 02/09/2015 Active Medications Medication Codes Instruc tions Start Date Stop Date Sta tus Fill Instructions ketoconazole 2 % top ical cream RxNorm: 329829 APPLY TWICE A DAY TO POSTERIOR SCALP FOR 2 WEEKS OR UNTIL THE SKIN IS HEALED 05/01/2019 05/18/2019 Active betamethasone nasir te 0.1 % topical cream RxNorm: 337103 1 Application TOP BID 05/01/2019 06/29/2019 Ac tive triamterene 37.5 mg- hydrochlorothiazide 25 mg tablet RxNorm: 931962 TAKE 1 TABLET BY MOUTH DAILY 01/24/2019 10/20/2019 Active ketoconazole 2 % top ical cream RxNorm: 317670 APPLY TWICE A DAY TO POSTERIOR SCALP FOR 2 WEEKS OR UNTIL THE SKIN IS HEALED 01/22/2019 02/08/2019 Inactive Bactroban 2 % topica l ointment RxNorm: 417101 APPLY TO AFFECTED ARE A(S) TOPICALLY DAILY 01/21/2019 No Stop Date Active ketoconazole 2 % sha mpoo RxNorm: 251172 1 Application TOP BIW 01/21/2019 05/01/2019 Inactive escitalopram 5 mg ta blet RxNorm: 493375 TAKE 1 TABLET BY MOUT H EVERY EVENING 01/14/2019 01/08/2020 Ac tive simvastatin 20 mg ta blet RxNorm: 622485 TAKE 1 TABLET BY MOUT H EVERY DAY 01/14/2019 01/08/2020 Ac tive Keflex 500 mg capsule RxNorm: 090375 1 Capsule(s) PO TID 12/31/2018 01/09/2019 Inactive Pyridium 200 mg tablet RxNorm: 2515492 1 Tablet(s) PO TID 12/31/2018 01/01/2019 Inactive esomeprazole magnesi um 40 mg capsule,delayed release RxNorm: 284158 Capsule(s) TAKE 1 CAPSULE BY MOUTH DAILY 11/27/2018 02/19/2020 Active wants to pay henry Zantac 150 mg tablet RxNorm: 227908 1 Tablet(s) PO BID 11/02/2018 11/26/2018 Inactive Zantac 150 mg tablet RxNorm: 523829 1 Tablet(s) PO BID 11/02/2018 11/01/2018 Inactive sucralfate 100 mg/mL oral suspension RxNorm: 233992 10 Milliliter(s) per 1 gram PO QID 10/08/2018 10/02/2019 Active diltiazem 30 mg tablet RxNorm: 273628 1 Tablet(s) PO QID 10/08/2018 10/02/2019 Active betamethasone nasir te 0.1 % topical cream RxNorm: 757523 1 Application TOP BID 09/05/2018 11/03/2018 In active ketoconazole 2 % top ical cream RxNorm: 640079 1 Application TOP BID to posterior scalp x 2 weeks or until the skin is healed 08/15/2018 08/28/2018 Inactive triamterene 37.5 mg- hydrochlorothiazide 25 mg tablet RxNorm: 150327 Tablet(s) 1 Tablet(s) PO daily 07/12/2018 01/07/2019 Inactive PLEASE SEND REFILL REQUESTS ELECTRONICALLY simvastatin 20 mg ta blet RxNorm: 210081 TAKE 1 TABLET BY MOUT H EVERY DAY 07/12/2018 01/07/2019 In active ketoconazole 2 % sha mpoo RxNorm: 776970 1 Application TOP BIW 05/14/2018 01/20/2019 Inactive simvastatin 20 mg ta blet RxNorm: 732306 TAKE 1 TABLET BY MOUT H EVERY DAY 03/01/2018 07/11/2018 In active triamterene 37.5 mg- hydrochlorothiazide 25 mg tablet RxNorm: 335656 Tablet(s) 1 Tablet(s) PO daily 02/06/2018 07/11/2018 Inactive PLEASE SEND REFILL REQUESTS ELECTRONICALLY Voltaren 1 % topical gel RxNorm: 501326 2 Gram(s) TOP TID to shoulders 01/01/2018 04/30/2018 In active sucralfate 100 mg/mL oral suspension RxNorm: 275930 10 Milliliter(s) per 1 gram PO QID 12/12/2017 06/09/2018 Inactive refill 3 month supply- 1gm/10ml simvastatin 20 mg ta blet RxNorm: 657693 TAKE 1 TABLET BY MOUT H EVERY DAY 12/04/2017 02/28/2018 In active escitalopram 5 mg ta blet RxNorm: 878449 1 Tablet(s) PO QPM 10/26/2017 01/13/2019 Inactive esomeprazole magnesi um 40 mg capsule,delayed release RxNorm: 077580 TAKE 1 CAPSULE BY MOUTH DAILY 10/26/2017 11/01/2018 Inactive mupirocin 2 % topica l ointment RxNorm: 031926 APPLY TO AFFECTED ARE A(S) ONCE DAILY 10/16/2017 11/28/2017 In active diltiazem 30 mg tablet RxNorm: 195307 1 Tablet(s) PO QID 10/09/2017 10/03/2018 Inactive triamterene 37.5 mg- hydrochlorothiazide 25 mg tablet RxNorm: 424213 1 Tablet(s) PO daily 07/28/2017 01/23/2018 Inactive fluticasone 50 mcg/a ctuation nasal spray,suspension RxNorm: 8355021 2 [place] NASAL daily 07/20/2017 01/08/2019 Inactive diltiazem 30 mg tablet RxNorm: 376850 1 Tablet(s) PO QID TAKE 1 TABLET BY MOUT H FOUR TIMES DAILY 07/13/2017 10/08/2017 Inactive simvastatin 20 mg ta blet RxNorm: 474952 TAKE 1 TABLET BY MOUT H EVERY DAY 06/08/2017 12/03/2017 In active Nexium 40 mg capsule ,delayed release RxNorm: 315323 1 Capsule(s) PO daily 05/25/2017 11/27/2017 In active esomeprazole magnesi um 40 mg capsule,delayed release RxNorm: 261294 Capsule(s) TAKE 1 CAPSULE BY MOUTH DAILY 05/17/2017 02/10/2018 Inactive diltiazem 30 mg tablet RxNorm: 580726 Tablet(s) TAKE 1 TABLET BY MOUTH FOUR TI MES DAILY 05/16/2017 07/12/2017 Inactive diltiazem 30 mg tablet RxNorm: 792781 TAKE 1 TABLET BY MOUTH THREE TIMES DAILY 02/09/2017 05/15/2017 In active Zofran ODT 4 mg disi ntegrating tablet RxNorm: 477509 1 Tablet(s) PO Q6 as needed 11/16/2016 11/22/2016 In active Protonix 40 mg table t,delayed release RxNorm: 650165 1 Tablet(s) PO daily 11/16/2016 12/15/2016 In active Protonix 40 mg table t,delayed release RxNorm: 552392 1 Tablet(s) PO daily 11/16/2016 11/15/2016 In active Zofran ODT 4 mg disi ntegrating tablet RxNorm: 532829 1 Tablet(s) PO Q6 as needed 11/16/2016 11/15/2016 In active escitalopram 5 mg ta blet RxNorm: 601965 1 Tablet(s) PO QPM 10/28/2016 10/22/2017 Inactive escitalopram 5 mg ta blet RxNorm: 882460 1 Tablet(s) PO QPM 10/05/2016 10/27/2016 Inactive mupirocin 2 % topica l ointment RxNorm: 394248 1 Application TOP yao ly APPLY TO AFFECTED AREA(S) TOPICALLY DAILY 09/07/2016 11/05/2016 Inactive Efudex 5 % topical c ream RxNorm: 035638 1 TOP BID 09/07/2016 09/16/2016 Inactive escitalopram 5 mg ta blet RxNorm: 471489 1 Tablet(s) PO QPM 09/07/2016 10/04/2016 Inactive sucralfate 100 mg/mL oral suspension RxNorm: 332480 10 Milliliter(s) per 1 gram PO QID 08/03/2016 07/28/2017 Inactive refill 3 month supply- 1gm/10ml clorazepate dipotass ium 3.75 mg tablet RxNorm: 278474 1 Tablet(s) PO QHS as needed insomnia 07/06/2016 08/14/2018 Inactive triamterene 37.5 mg- hydrochlorothiazide 25 mg tablet RxNorm: 287197 1 Tablet(s) PO daily 06/29/2016 06/23/2017 Inactive Nexium 40 mg capsule ,delayed release RxNorm: 986128 1 Capsule(s) PO daily 06/29/2016 07/05/2016 In active Bactroban 2 % topica l ointment RxNorm: 650141 APPLY TO AFFECTED ARE A(S) TOPICALLY DAILY 06/22/2016 09/06/2016 Inactive esomeprazole magnesi um 40 mg capsule,delayed release RxNorm: 896729 TAKE 1 CAPSULE BY MOUTH DAILY 06/13/2016 03/09/2017 Inactive simvastatin 20 mg ta blet RxNorm: 424064 1 Tablet(s) PO daily 05/16/2016 06/07/2017 Inactive simvastatin 20 mg ta blet RxNorm: 806760 1 Tablet(s) PO daily 05/12/2016 05/15/2016 Inactive famotidine 40 mg tablet RxNorm: 397813 TAKE 1 TABLET BY MOUTH DAILY 05/05/2016 01/29/2017 Inactive Bactroban 2 % topica l ointment RxNorm: 057817 APPLY TO AFFECTED ARE A(S) TOPICALLY DAILY 04/25/2016 05/01/2016 Inactive fluticasone 50 mcg/a ctuation nasal spray,suspension RxNorm: 0758442 2 [place] NASAL daily 03/23/2016 09/18/2016 Inactive fluticasone 50 mcg/a ctuation nasal spray,suspension RxNorm: 044585 2 [place] NASAL daily 03/07/2016 03/22/2016 Inactive Bactroban 2 % topica l ointment RxNorm: 111014 APPLY TO AFFECTED ARE A(S) TOPICALLY DAILY 02/29/2016 03/06/2016 Inactive diltiazem 30 mg tablet RxNorm: 997377 1 Tablet(s) PO TID 02/18/2016 02/08/2017 Inactive Bactroban 2 % topica l ointment RxNorm: 942323 1 Application TOP 01/08/2016 02/28/2016 Inactive clorazepate dipotass ium 3.75 mg tablet RxNorm: 487558 1 Tablet(s) PO daily 12/14/2015 06/10/2016 In active fluticasone 50 mcg/a ctuation nasal spray,suspension RxNorm: 589990 2 [place] NASAL daily 12/14/2015 02/11/2016 Inactive diltiazem 30 mg tablet RxNorm: 615784 1 Tablet(s) PO TID 09/03/2015 02/17/2016 Inactive simvastatin 20 mg ta blet RxNorm: 189847 1 Tablet(s) PO daily 08/24/2015 05/11/2016 Inactive triamterene 37.5 mg- hydrochlorothiazide 25 mg tablet RxNorm: 845580 1 Tablet(s) PO daily 07/09/2015 06/28/2016 Inactive clorazepate dipotass ium 15 mg tablet RxNorm: 350489 1 Tablet(s) PO daily 07/06/2015 07/06/2015 In active clorazepate dipotass ium 3.75 mg tablet RxNorm: 193363 1 Tablet(s) PO daily 07/06/2015 12/13/2015 In active esomeprazole magnesi um 40 mg capsule,delayed release RxNorm: 497837 1 Capsule(s) PO daily 06/26/2015 06/12/2016 Inactive famotidine 40 mg tablet RxNorm: 283076 1 Tablet(s) PO daily 06/26/2015 05/04/2016 Inactive diltiazem 30 mg tablet RxNorm: 576119 1 Tablet(s) PO TID 06/09/2015 09/02/2015 Inactive sucralfate 100 mg/mL oral suspension RxNorm: 850102 10 Milliliter(s) per 1 gram PO QID 04/28/2015 04/21/2016 Inactive refill 3 month supply- 1gm/10ml member I d [id number] sucralfate 100 mg/mL oral suspension RxNorm: 164645 10 Milliliter(s) per 1 gram PO QID 04/27/2015 04/27/2015 Inactive refill 3 month supply diltiazem 30 mg tablet RxNorm: 503227 1 Tablet(s) PO TID 02/18/2015 02/17/2015 Inactive diltiazem 30 mg tablet RxNorm: 884686 1 Tablet(s) PO TID 02/18/2015 05/18/2015 Inactive Vitamin D3 2,000 uni t tablet RxNorm: 306894 Tablet(s) PO daily No Start Date Active Nidia ODT oral RxNorm: 634480 oral No Start Date Active PreserVision Lutein oral RxNorm: [address] art Date Active Vitamin B-12 oral RxNorm: 57475 oral No Start Date Active Calcium 500 + D oral RxNorm: 835300 oral No Start Date Active [facility]: 445242 1 TOP daily No Start Date Active melatonin 5 mg tablet RxNorm: 106651 Tablet(s) PO QHS as needed No Start Date Active vitamin B6-vitamin E -magnesium oral RxNorm: 531529 oral No S tart Date Active famotidine 40 mg tablet RxNorm: 229311 1 Tablet(s) PO daily No Start Date 06/25/2015 Inactive clorazepate dipotass ium 3.75 mg tablet RxNorm: 668015 1 Tablet(s) PO daily No Start Date 07/05/2015 Inactive Bactroban 2 % topica l ointment RxNorm: 813548 1 Application TOP No Start Date 01/07/2016 Inactive Carafate 1 gram tablet RxNorm: 933544 1 Tablet(s) PO QID No Start Date 04/26/2015 Inactive Zyrtec 10 mg tablet RxNorm: 3307162 1 Tablet(s) PO daily No Start Date 08/14/2018 Inactive esomeprazole magnesi um 40 mg capsule,delayed release RxNorm: 638106 Capsule(s) PO daily No Start Date 06/25/2015 Inactive fluticasone 50 mcg/a ctuation nasal spray,suspension RxNorm: 313345 2 [place] NASAL daily No Start Date 12/13/2015 Inactive Nexium 40 mg capsule ,delayed release RxNorm: 340922 1 Capsule(s) PO daily No Start Date 06/28/2016 Inactive [facility]oconazole 2 % [facility] Rx[facility]: 308414 TOP No St art Date 05/01/2019 Inactive triamterene 37.5 mg- hydrochlorothiazide 25 mg tablet RxNorm: 650607 1 Tablet(s) PO daily No Start Date 07/08/2015 Inactive simvastatin 20 mg ta blet RxNorm: 715735 1 Tablet(s) PO daily No Start Date 08/23/2015 Inactive Medication Administered No Medication Administered data Immunizations Vaccine Codes Date Status Influenza CVX: 141 06/21 completed Influenza CVX: 141 06/21 completed Influenza CVX: 141 06/24 completed Influenza CVX: 141 06/19 completed Influenza CVX: 141 07/26 completed Pneumococcal CVX: 33 09/2011 completed Assessments Condition Codes Effectiv e Dates Essential (primary) hypertension ICD -10: I10 ICD-9: 401.9 05/01/2019 Generalized anxiety disorder ICD-10: F41.1 ICD-9: 300.02 05/01/2019 Mixed hyperlipidemia ICD-10: E78.2 ICD-9: 272.2 05/01/2019 Corns and callosities ICD-10: L84 ICD-9: 700 01/09/2019 Pain in left toe(s) ICD-10: M79.675 ICD-9: 729.5 01/09/2019 Pain in right toe(s) ICD-10: M79.674 ICD-9: 729.5 01/09/2019 Vitamin B12 deficiency anemia due to int rinsic 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 ICD-9: 281.0 01/09/2019 Gastro-esophageal reflux disease without esophagitis ICD-10: K21.9 ICD-9: 530.81 01/09/2019 Underweight ICD-10: R63.6 ICD-9: 783.22 01/09/2019 Age-related osteoporosis without current pathological fracture ICD-10: M81.0 ICD-9: 733.00 01/09/2019 Dysuria ICD-10: R30.0 ICD-9: 788.1 12/31/2018 Rash and other nonspecific skin eruption ICD-10: R21 ICD-9: 782.1 09/05/2018 Unsteadiness on feet ICD-10: R26.81 ICD-9: 781.2 08/15/2018 Weakness ICD-10: R53.1 ICD-9: 780.79 08/15/2018 Tinea barbae and tinea capitis ICD-1 0: B35.0 ICD-9: 110.0 08/15/2018 Encounter for immunization ICD-10: Z 23 ICD-9: V04.81 06/21/2018 Other allergic rhinitis ICD-10: J30. 89 ICD-9: 477.8 05/29/2018 Bicipital tendinitis, left shoulder ICD-10: M75.22 ICD-9: 726.12 01/22/2018 Pain in right shoulder ICD-10: M25.5 11 ICD-9: 719.41 01/01/2018 Bicipital tendinitis, right shoulder ICD-10: M75.21 ICD-9: 726.12 01/01/2018 Actinic keratosis ICD-10: L57.0 ICD-9: 702.0 12/12/2017 Fracture of unspecified part of neck of left femur, subsequent encounter for closed fracture with routine healing ICD-10: S72.002D ICD-9: V54.13 09/13/2017 Gastro-esophageal reflux disease with esophagitis ICD-10: K21.0 ICD-9: 530.81 06/21/2017 Mixed hyperlipidemia ICD-10: E78.2 ICD-9: 272.4 06/21/2017 Inflamed seborrheic keratosis ICD-10 : L82.0 ICD-9: 702.11 09/15/2016 Frequency of micturition ICD-10: R35 .0 ICD-9: 788.41 07/06/2016 Occlusion and stenosis of unspecified carotid artery ICD-10: I65.29 ICD-9: 433.10 09/02/2015 Other dietary vitamin B12 deficiency anemia ICD-10: D51.3 ICD-9: 281.1 09/02/2015 VACCIN FOR INFLUENZA ICD-9: V04.81 06/19/2015 Carpal tunnel syndrome ICD-9: 354.0 06/15/2015 Inflamed seborrheic keratosis ICD-9: 702.1 1 06/15/2015 ESSENTIAL HYPERTENSION ICD-9: 401.9 03/04/2015 HYPERLIPIDEMIA ICD-9: 272.4 03/04/2015 ESOPHAGEAL REFLUX ICD-9: 530.81 03/04/2015 Other screening mammogram ICD-9: V76.12 02/10/2015 Reason For Visit Reason For Visit Effective Dates Notes hypertension 05/01/2019 hypertension 01/09/2019 urinary urgency 12/31/2018 rash 09/05/2018 hypertension 08/15/2018 vaccination against influenza 06/21/2018 rash 05/29/2018 rash 05/14/2018 hypertension 04/18/2018 shoulder pain 01/22/2018 shoulder pain 01/01/2018 hypertension 12/12/2017 hypertension 09/13/2017 dyspepsia 06/21/2017 Hospital Follow Up 05/25/2017 syncopal episode et hip fx Hospital Follow Up 05/16/2017 syncopal episode et hip fx hypertension 02/15/2017 Hospital Follow Up 11/22/2016 skin lesion 09/15/2016 skin lesion 09/07/2016 hypertension 07/06/2016 vaccination against influenza 06/24/2016 gastroesophageal reflux 04/06/2016 gastroesophageal reflux 01/06/2016 gastroesophageal reflux 09/02/2015 vaccination against influenza 06/19/2015 rash 06/15/2015 gastroesophageal reflux 03/04/2015 Results Observation Observation Code Item Item Code Result Date Comp Metabolic Ahv362 NA 134 mEq/L 01/09/2019 Comp Metabolic Aom137 K 3.4 mEq/L 01/09/2019 Comp Metabolic Kas991 CL 94 mEq/L 01/09/2019 Comp Metabolic Bmb006 CO2 30.0 mEq/L 01/09/2019 Comp Metabolic Rmz815 AN ION GAP 13 01/09/2019 Comp Metabolic Alh702 GL UCOSE 97 mg/dL 01/09/2019 Comp Metabolic Nzf946 Cr eat 0.7 mg/dL 01/09/2019 Comp Metabolic Vmy524 eG FR 90 ml/min/1.73m2 01/09 Comp Metabolic Vlr394 BUN 18 mg/dL 01/09/2019 Comp Metabolic Qec216 B/ C Ratio 27.3 Ratio 01/09/2019 Comp Metabolic Krt689 CA LCIUM 9.0 mg/dL 01/09/2019 Comp Metabolic Xpr725 AL K PHOS 57 U/L 01/09/2019 Comp Metabolic Olf773 T(SGOT) 33 U/L 01/09/2019 Comp Metabolic Mjo871 AL T(SGPT) 25 U/L 01/09/2019 Comp Metabolic Vrv950 BI LI T 0.6 mg/dL 01/09/2019 Comp Metabolic Xrn291 AL BUMIN 4.5 g/dL 01/09/2019 Comp Metabolic Kvu333 TP RO 6.9 g/dL 01/09/2019 Comp Metabolic Qxg527 GL OB 2.4 g/dL 01/09/2019 Comp Metabolic Ykj302 A/ G Ratio 1.9 Ratio 01/09/2019 Comp Metabolic Cjx459 Os mo 270 mOsmo 01/09/2019 Lipid Ord30 CHOL 178 mg/dL 01/09/2019 Lipid Ord30 HDL 76.0 mg/dl 01/09/2019 Lipid Ord30 TRIG 73 mg/dL 01/09/2019 Lipid Ord30 LDL 87 mg/dL 01/09/2019 Lipid Ord30 C/HDL 2.3 Ratio 01/09/2019 B12 Lkz881 B12 >1500.00 pg/ml 01/09/2019 Tsh Ord6 TSH (3rd IS) 1.18 uIU/mL 01/09/2019 Cbc With Differential Ord2 WBC 5.93 K/ul 01/09/2019 Cbc With Differential Ord2 RBC 3.85 M/ul 01/09/2019 Cbc With Differential Ord2 HGB 12.3 g/dl 01/09/2019 Cbc With Differential Ord2 Neut% 79.4 % 01/09/2019 Cbc With Differential Ord2 HCT 35.9 % 01/09/2019 Cbc With Differential Ord2 Lymph% 10.6 % 01/09/2019 Cbc With Differential Ord2 MCV 93.2 fl 01/09/2019 Cbc With Differential Ord2 [place]% 7.9 % 01/09/2019 Cbc With Differential Ord2 MCH 31.9 pg 01/09/2019 Cbc With Differential Ord2 MCHC 34.3 pg 01/09/2019 Cbc With Differential Ord2 Eos% 1.9 % 01/09/2019 Cbc With Differential Ord2 Baso% 0.2 % 01/09/2019 Cbc With Differential Ord2 PLT 333 K/ul 01/09/2019 Cbc With Differential Ord2 RDW 13.5 % 01/09/2019 Cbc With Differential Ord2 Neut ABS# 4.71 K/ul 01/09/2019 Cbc With Differential Ord2 Lymph ABS# 0.63 K/ul 01/09/2019 Cbc With Differential Ord2 [place] ABS# 0.5 K/ul 01/09/2019 Cbc With Differential Ord2 Eos ABS# 0.1 K/ul 01/09/2019 Cbc With Differential Ord2 Baso ABS# 0.0 K/ul 01/09/2019 Vitamin D 25 Oh Hta2311 VITAMIN D, 25 HYDROXY 64.38 ng/mL 01/09/2019 Urine Culture Ucult Comp lete >100,000 col/ml aerobic grow th sent to ref lab 01/01/2019 Cbc With Differential Ord2 WBC 5.45 K/ul 04/18/2018 Cbc With Differential Ord2 RBC 4.04 M/ul 04/18/2018 Cbc With Differential Ord2 HGB 12.7 g/dl 04/18/2018 Cbc With Differential Ord2 HCT 37.8 % 04/18/2018 Cbc With Differential Ord2 Neut% 73.6 % 04/18/2018 Cbc With Differential Ord2 MCV 93.6 fl 04/18/2018 Cbc With Differential Ord2 Lymph% 13.9 % 04/18/2018 Cbc With Differential Ord2 MCH 31.4 pg 04/18/2018 Cbc With Differential Ord2 [place]% 9.2 % 04/18/2018 Cbc With Differential Ord2 MCHC 33.6 pg 04/18/2018 Cbc With Differential Ord2 Eos% 2.9 % 04/18/2018 Cbc With Differential Ord2 PLT 299 K/ul 04/18/2018 Cbc With Differential Ord2 Baso% 0.4 % 04/18/2018 Cbc With Differential Ord2 RDW 13.7 % 04/18/2018 Cbc With Differential Ord2 Neut ABS# 4.01 K/ul 04/18/2018 Cbc With Differential Ord2 Lymph ABS# 0.76 K/ul 04/18/2018 Cbc With Differential Ord2 [place] ABS# 0.5 K/ul 04/18/2018 Cbc With Differential Ord2 Eos ABS# 0.2 K/ul 04/18/2018 Cbc With Differential Ord2 Baso ABS# 0.0 K/ul 04/18/2018 Metabolic Ord15 NA 134 mEq/L 04/18/2018 Metabolic Ord15 K 3.7 mEq/L 04/18/2018 Metabolic Ord15 CL 94 mEq/L 04/18/2018 Metabolic Ord15 CO2 31.0 mEq/L 04/18/2018 Metabolic Ord15 GLUCOSE 94 mg/dL 04/18/2018 Metabolic Ord15 BUN 16 mg/dL 04/18/2018 Metabolic Ord15 Creat 0.7 mg/dL 04/18/2018 Metabolic Ord15 B/C Ratio 23.5 Ratio 04/18/2018 Metabolic Ord15 eGFR 87 ml/min/1.73m2 04/18/2018 Metabolic Ord15 Osmo 269 mOsmo 04/18/2018 Metabolic Ord15 ANION GAP 13 04/18/2018 Metabolic Ord15 CALCIUM 9.1 mg/dL 04/18/2018 Comp Metabolic Qvf468 NA 130 mEq/L 12/07/2017 Comp Metabolic Rjq271 K 3.6 mEq/L 12/07/2017 Comp Metabolic Jzc973 CL 91 mEq/L 12/07/2017 Comp Metabolic Tox384 CO2 29.0 mEq/L 12/07/2017 Comp Metabolic Dys313 AN ION GAP 14 12/07/2017 Comp Metabolic Put834 GL UCOSE 105 mg/dL 12/07/2017 Comp Metabolic Hmy498 Cr eat 0.6 mg/dL 12/07/2017 Comp Metabolic Cnv876 eG FR 94 ml/min/1.73m2 12/07 Comp Metabolic Ign297 BUN 15 mg/dL 12/07/2017 Comp Metabolic Ucd103 B/ C Ratio 23.4 Ratio 12/07/2017 Comp Metabolic Qqd198 CA LCIUM 9.3 mg/dL 12/07/2017 Comp Metabolic Dll971 AL K PHOS 62 U/L 12/07/2017 Comp Metabolic Xkx106 T(SGOT) 31 U/L 12/07/2017 Comp Metabolic Lcd125 AL T(SGPT) 22 U/L 12/07/2017 Comp Metabolic Yqj594 BI LI T 0.4 mg/dL 12/07/2017 Comp Metabolic Okc153 AL BUMIN 4.3 g/dL 12/07/2017 Comp Metabolic Fjd051 TP RO 6.5 g/dL 12/07/2017 Comp Metabolic Vgi779 GL OB 2.2 g/dL 12/07/2017 Comp Metabolic Gwk233 A/ G Ratio 2.0 Ratio 12/07/2017 Comp Metabolic Wmr749 Os mo 262 mOsmo 12/07/2017 Cbc With Differential Ord2 WBC 4.62 K/ul 12/07/2017 Cbc With Differential Ord2 RBC 3.78 M/ul 12/07/2017 Cbc With Differential Ord2 HGB 11.7 g/dl 12/07/2017 Cbc With Differential Ord2 HCT 35.3 % 12/07/2017 Cbc With Differential Ord2 Neut% 73.2 % 12/07/2017 Cbc With Differential Ord2 MCV 93.4 fl 12/07/2017 Cbc With Differential Ord2 Lymph% 12.3 % 12/07/2017 Cbc With Differential Ord2 MCH 31.0 pg 12/07/2017 Cbc With Differential Ord2 [place]% 10.4 % 12/07/2017 Cbc With Differential Ord2 MCHC 33.1 pg 12/07/2017 Cbc With Differential Ord2 Eos% 3.7 % 12/07/2017 Cbc With Differential Ord2 PLT 301 K/ul 12/07/2017 Cbc With Differential Ord2 Baso% 0.4 % 12/07/2017 Cbc With Differential Ord2 RDW 13.7 % 12/07/2017 Cbc With Differential Ord2 Neut ABS# 3.38 K/ul 12/07/2017 Cbc With Differential Ord2 Lymph ABS# 0.57 K/ul 12/07/2017 Cbc With Differential Ord2 [place] ABS# 0.5 K/ul 12/07/2017 Cbc With Differential Ord2 Eos ABS# 0.2 K/ul 12/07/2017 Cbc With Differential Ord2 Baso ABS# 0.0 K/ul 12/07/2017 Tsh Ord6 TSH (3rd IS) 1.42 uIU/mL 12/07/2017 Lipid Ord30 CHOL 197 mg/dL 12/07/2017 Lipid Ord30 HDL 80.0 mg/dl 12/07/2017 Lipid Ord30 TRIG 91 mg/dL 12/07/2017 Lipid Ord30 LDL 99 mg/dL 12/07/2017 Lipid Ord30 C/HDL 2.5 Ratio 12/07/2017 Cbc With Differential Ord2 WBC 4.46 K/ul 06/21/2017 Cbc With Differential Ord2 RBC 3.78 M/ul 06/21/2017 Cbc With Differential Ord2 HGB 12.2 g/dl 06/21/2017 Cbc With Differential Ord2 HCT 35.5 % 06/21/2017 Cbc With Differential Ord2 Neut% 71.3 % 06/21/2017 Cbc With Differential Ord2 MCV 93.9 fl 06/21/2017 Cbc With Differential Ord2 Lymph% 14.6 % 06/21/2017 Cbc With Differential Ord2 MCH 32.3 pg 06/21/2017 Cbc With Differential Ord2 [place]% 10.1 % 06/21/2017 Cbc With Differential Ord2 MCHC 34.4 pg 06/21/2017 Cbc With Differential Ord2 Eos% 3.8 % 06/21/2017 Cbc With Differential Ord2 PLT 317 K/ul 06/21/2017 Cbc With Differential Ord2 Baso% 0.2 % 06/21/2017 Cbc With Differential Ord2 RDW 14.4 % 06/21/2017 Cbc With Differential Ord2 Neut ABS# 3.18 K/ul 06/21/2017 Cbc With Differential Ord2 Lymph ABS# 0.65 K/ul 06/21/2017 Cbc With Differential Ord2 [place] ABS# 0.5 K/ul 06/21/2017 Cbc With Differential Ord2 Eos ABS# 0.2 K/ul 06/21/2017 Cbc With Differential Ord2 Baso ABS# 0.0 K/ul 06/21/2017 Comp Metabolic Knl761 NA 133 mEq/L 06/21/2017 Comp Metabolic Xvx445 K 4.0 mEq/L 06/21/2017 Comp Metabolic Fsk122 CL 94 mEq/L 06/21/2017 Comp Metabolic Nap102 CO2 25.0 mEq/L 06/21/2017 Comp Metabolic Lma533 AN ION GAP 18 06/21/2017 Comp Metabolic Iib775 GL UCOSE 88 mg/dL 06/21/2017 Comp Metabolic Gtb246 Cr eat 0.6 mg/dL 06/21/2017 Comp Metabolic Kow091 eG FR 94 ml/min/1.73m2 06/21 Comp Metabolic Acm700 BUN 16 mg/dL 06/21/2017 Comp Metabolic Yyw411 B/ C Ratio 25.0 Ratio 06/21/2017 Comp Metabolic Cjm935 CA LCIUM 9.1 mg/dL 06/21/2017 Comp Metabolic Nmx556 AL K PHOS 65 U/L 06/21/2017 Comp Metabolic Buw158 T(SGOT) 31 U/L 06/21/2017 Comp Metabolic Huo330 AL T(SGPT) 20 U/L 06/21/2017 Comp Metabolic Npw330 BI LI T 0.5 mg/dL 06/21/2017 Comp Metabolic Fki571 AL BUMIN 4.3 g/dL 06/21/2017 Comp Metabolic Fgn024 TP RO 6.6 g/dL 06/21/2017 Comp Metabolic Ptc361 GL OB 2.3 g/dL 06/21/2017 Comp Metabolic Ldb762 A/ G Ratio 1.8 Ratio 06/21/2017 Comp Metabolic Tsd477 Os mo 267 mOsmo 06/21/2017 Lipid Ord30 CHOL 188 mg/dL 06/21/2017 Lipid Ord30 HDL 77.0 mg/dl 06/21/2017 Lipid Ord30 TRIG 66 mg/dL 06/21/2017 Lipid Ord30 LDL 98 mg/dL 06/21/2017 Lipid Ord30 C/HDL 2.4 Ratio 06/21/2017 Tsh Ord6 hTSH II 1.32 uIU/mL 06/21/2017 Comp Metabolic Ryc905 NA 135 mEq/L 02/09/2017 Comp Metabolic Ont119 K 4.0 mEq/L 02/09/2017 Comp Metabolic Nik755 CL 96 mEq/L 02/09/2017 Comp Metabolic Gno940 CO2 28.0 mEq/L 02/09/2017 Comp Metabolic Pwd065 AN ION GAP 15 02/09/2017 Comp Metabolic Tlv265 GL UCOSE 101 mg/dL 02/09/2017 Comp Metabolic Dyg525 Cr eat 0.7 mg/dL 02/09/2017 Comp Metabolic Duk451 eG FR 83 ml/min/1.73m2 02/09 Comp Metabolic Aaf513 BUN 17 mg/dL 02/09/2017 Comp Metabolic Gfj523 B/ C Ratio 23.9 Ratio 02/09/2017 Comp Metabolic Dtd794 CA LCIUM 9.3 mg/dL 02/09/2017 Comp Metabolic Xhz931 AL K PHOS 51 U/L 02/09/2017 Comp Metabolic Lqw952 T(SGOT) 33 U/L 02/09/2017 Comp Metabolic Lny995 AL T(SGPT) 21 U/L 02/09/2017 Comp Metabolic Nyd162 BI LI T 0.6 mg/dL 02/09/2017 Comp Metabolic Tll707 AL BUMIN 4.3 g/dL 02/09/2017 Comp Metabolic Fjw752 TP RO 6.9 g/dL 02/09/2017 Comp Metabolic Zbt995 GL OB 2.6 g/dL 02/09/2017 Comp Metabolic Xvq355 A/ G Ratio 1.7 Ratio 02/09/2017 Comp Metabolic Bme108 Os mo 272 mOsmo 02/09/2017 Lipid Ord30 CHOL 218 mg/dL 02/09/2017 Lipid Ord30 HDL 74.0 mg/dl 02/09/2017 Lipid Ord30 TRIG 94 mg/dL 02/09/2017 Lipid Ord30 LDL 125 mg/dL 02/09/2017 Lipid Ord30 C/HDL 2.9 Ratio 02/09/2017 Tsh Ord6 hTSH II 1.51 uIU/mL 02/09/2017 Cbc With Differential Ord2 WBC 5.13 K/ul 02/09/2017 Cbc With Differential Ord2 RBC 4.06 M/ul 02/09/2017 Cbc With Differential Ord2 HGB 12.9 g/dl 02/09/2017 Cbc With Differential Ord2 HCT 38.3 % 02/09/2017 Cbc With Differential Ord2 Neut% 70.8 % 02/09/2017 Cbc With Differential Ord2 MCV 94.3 fl 02/09/2017 Cbc With Differential Ord2 Lymph% 15.0 % 02/09/2017 Cbc With Differential Ord2 MCH 31.8 pg 02/09/2017 Cbc With Differential Ord2 [place]% 11.3 % 02/09/2017 Cbc With Differential Ord2 MCHC 33.7 pg 02/09/2017 Cbc With Differential Ord2 Eos% 2.5 % 02/09/2017 Cbc With Differential Ord2 PLT 279 K/ul 02/09/2017 Cbc With Differential Ord2 Baso% 0.4 % 02/09/2017 Cbc With Differential Ord2 RDW 14.0 % 02/09/2017 Cbc With Differential Ord2 Neut ABS# 3.63 K/ul 02/09/2017 Cbc With Differential Ord2 Lymph ABS# 0.77 K/ul 02/09/2017 Cbc With Differential Ord2 [place] ABS# 0.6 K/ul 02/09/2017 Cbc With Differential Ord2 Eos ABS# 0.1 K/ul 02/09/2017 Cbc With Differential Ord2 Baso ABS# 0.0 K/ul 02/09/2017 Lipid Ord30 CHOL 190 mg/dL 03/29/2016 Lipid Ord30 HDL 70.0 mg/dl 03/29/2016 Lipid Ord30 TRIG 90 mg/dL 03/29/2016 Lipid Ord30 LDL 102 mg/dL 03/29/2016 Lipid Ord30 C/HDL 2.7 Ratio 03/29/2016 Cbc With Differential Ord2 WBC 4.52 K/ul 03/29/2016 Cbc With Differential Ord2 RBC 3.72 M/ul 03/29/2016 Cbc With Differential Ord2 HGB 11.7 g/dl 03/29/2016 Cbc With Differential Ord2 HCT 34.5 % 03/29/2016 Cbc With Differential Ord2 Neut% 73.8 % 03/29/2016 Cbc With Differential Ord2 MCV 92.7 fl 03/29/2016 Cbc With Differential Ord2 Lymph% 13.3 % 03/29/2016 Cbc With Differential Ord2 MCH 31.5 pg 03/29/2016 Cbc With Differential Ord2 [place]% 9.5 % 03/29/2016 Cbc With Differential Ord2 MCHC 33.9 pg 03/29/2016 Cbc With Differential Ord2 Eos% 2.7 % 03/29/2016 Cbc With Differential Ord2 PLT 313 K/ul 03/29/2016 Cbc With Differential Ord2 Baso% 0.7 % 03/29/2016 Cbc With Differential Ord2 RDW 14.1 % 03/29/2016 Cbc With Differential Ord2 Neut ABS# 3.34 K/ul 03/29/2016 Cbc With Differential Ord2 Lymph ABS# 0.60 K/ul 03/29/2016 Cbc With Differential Ord2 [place] ABS# 0.4 K/ul 03/29/2016 Cbc With Differential Ord2 Eos ABS# 0.1 K/ul 03/29/2016 Cbc With Differential Ord2 Baso ABS# 0.0 K/ul 03/29/2016 Comp Metabolic Rth866 NA 135 mEq/L 03/29/2016 Comp Metabolic Zbc180 K 3.7 mEq/L 03/29/2016 Comp Metabolic Clk072 CL 96 mEq/L 03/29/2016 Comp Metabolic Tem462 CO2 30.0 mEq/L 03/29/2016 Comp Metabolic Dfu648 AN ION GAP 13 03/29/2016 Comp Metabolic Ffi889 GL UCOSE 102 mg/dL 03/29/2016 Comp Metabolic Ull993 Cr eat 0.6 mg/dL 03/29/2016 Comp Metabolic Aqk759 eG FR 94 ml/min/1.73m2 03/29 Comp Metabolic Oca612 BUN 15 mg/dL 03/29/2016 Comp Metabolic Erb487 B/ C Ratio 23.4 Ratio 03/29/2016 Comp Metabolic Tsn952 CA LCIUM 9.1 mg/dL 03/29/2016 Comp Metabolic Erm321 AL K PHOS 70 U/L 03/29/2016 Comp Metabolic Eys716 T(SGOT) 35 U/L 03/29/2016 Comp Metabolic Eud863 AL T(SGPT) 27 U/L 03/29/2016 Comp Metabolic Adw486 BI LI T 0.5 mg/dL 03/29/2016 Comp Metabolic Kps103 AL BUMIN 4.2 g/dL 03/29/2016 Comp Metabolic Jth093 TP RO 6.6 g/dL 03/29/2016 Comp Metabolic Dhq551 GL OB 2.4 g/dL 03/29/2016 Comp Metabolic Lkk810 A/ G Ratio 1.7 Ratio 03/29/2016 Comp Metabolic Bsc016 Os mo 271 mOsmo 03/29/2016 Tsh Ord6 hTSH II 1.17 uIU/mL 03/29/2016 B12 Kpd851 B12 838.00 pg/ml 09/02/2015 Tsh Ord6 hTSH II 1.14 uIU/mL 09/02/2015 Cbc With Differential Ord2 WBC 4.5 K/uL 09/02/2015 Cbc With Differential Ord2 LYM 0.7 K/uL 09/02/2015 Cbc With Differential Ord2 LYM% 14.9 % 09/02/2015 Cbc With Differential Ord2 NEUT/GRAN 3.6 K/uL 09/02/2015 Cbc With Differential Ord2 NEUT/GRAN % 79.0 % 09/02/2015 Cbc With Differential Ord2 MID 0.3 K/uL 09/02/2015 Cbc With Differential Ord2 MID% 6.1 % 09/02/2015 Cbc With Differential Ord2 RBC 3.74 M/uL 09/02/2015 Cbc With Differential Ord2 HGB 11.1 g/dL 09/02/2015 Cbc With Differential Ord2 HCT 35.8 % 09/02/2015 Cbc With Differential Ord2 MCV 96 fL 09/02/2015 Cbc With Differential Ord2 MCH 30 pg 09/02/2015 Cbc With Differential Ord2 MCHC 31 g/dL 09/02/2015 Cbc With Differential Ord2 PLT 292 K/uL 09/02/2015 Cbc With Differential Ord2 RDW 15.1 % 09/02/2015 Comp Metabolic Eax187 NA 135 mEq/L 09/02/2015 Comp Metabolic Dpp000 K 3.4 mEq/L 09/02/2015 Comp Metabolic Oqf180 CL 95 mEq/L 09/02/2015 Comp Metabolic Lds030 CO2 27.0 mEq/L 09/02/2015 Comp Metabolic Bvd266 AN ION GAP 16 09/02/2015 Comp Metabolic Top811 GL UCOSE 94 mg/dL 09/02/2015 Comp Metabolic Bsu102 Cr eat 0.7 mg/dL 09/02/2015 Comp Metabolic Ojw724 eG FR 87 ml/min/1.73m2 09/02 Comp Metabolic Vfg995 BUN 18 mg/dL 09/02/2015 Comp Metabolic Qnl065 B/ C Ratio 26.1 Ratio 09/02/2015 Comp Metabolic Dyg757 CA LCIUM 9.0 mg/dL 09/02/2015 Comp Metabolic Eua834 AL K PHOS 67 U/L 09/02/2015 Comp Metabolic Urh314 T(SGOT) 30 U/L 09/02/2015 Comp Metabolic Qkf229 AL T(SGPT) 21 U/L 09/02/2015 Comp Metabolic Gzm124 BI LI T 0.6 mg/dL 09/02/2015 Comp Metabolic Gtn055 AL BUMIN 4.3 g/dL 09/02/2015 Comp Metabolic Ifs684 TP RO 6.8 g/dL 09/02/2015 Comp Metabolic Hin789 GL OB 2.5 g/dL 09/02/2015 Comp Metabolic Fdd025 A/ G Ratio 1.7 Ratio 09/02/2015 Comp Metabolic Qwl447 Os mo 272 mOsmo 09/02/2015 Lipid Ord30 CHOL 181 mg/dL 09/02/2015 Lipid Ord30 HDL 66.0 mg/dl 09/02/2015 Lipid Ord30 TRIG 77 mg/dL 09/02/2015 Lipid Ord30 LDL 100 mg/dL 09/02/2015 Lipid Ord30 C/HDL 2.7 Ratio 09/02/2015 Review of Systems System Result Effective Dates Constitutional No recent illness 05/01/2019 Constitutional No chills 05/01/2019 Constitutional No fatigue 05/01/2019 Constitutional No fever 05/01/2019 Constitutional No insomnia 05/01/2019 Constitutional No malaise 05/01/2019 Eyes No blindness 2018 Eyes No vision change Ears/Nose/Throat/Neck No headache 05/01/2019 Ears/Nose/Throat/Neck hearing loss 05/01/2019 Ears/Nose/Throat/Neck No nasal allergies 05/01/2019 Ears/Nose/Throat/Neck No nasal discharge 05/01/2019 Ears/Nose/Throat/Neck No sore throat 05/01/2019 Ears/Nose/Throat/Neck No postnasal drip 05/01/2019 Ears/Nose/Throat/Neck No sinus congestion 05/01/2019 Cardiovascular No chest pain/pressure 05/01/2019 Cardiovascular No dyspnea 05/01/2019 Cardiovascular No edema 05/01/2019 Cardiovascular No fatigue 05/01/2019 Respiratory No chest congestion 05/01/2019 Respiratory No cough 03/2019 Respiratory No dyspnea 0 05/01/2019 Gastrointestinal No abdominal pain 05/01/2019 Gastrointestinal No constipation 05/01/2019 Gastrointestinal No diarrhea 05/01/2019 Gastrointestinal gastroesophageal reflux 05/01/2019 Gastrointestinal No nausea 05/01/2019 Gastrointestinal No vomiting 05/01/2019 Musculoskeletal stiffness 05/01/2019 Musculoskeletal muscle weakness 05/01/2019 Dermatologic No sores Neurologic No alteration of consciousness 05/01/2019 Neurologic No mental status change 05/01/2019 Psychiatric No anxiety 0 05/01/2019 Psychiatric No depression 05/01/2019 Constitutional No recent illness 01/09/2019 Constitutional No chills 01/09/2019 Constitutional No fatigue 01/09/2019 Constitutional No fever 01/09/2019 Constitutional No insomnia 01/09/2019 Constitutional No malaise 01/09/2019 Eyes No blindness 2018 Eyes No vision change Ears/Nose/Throat/Neck cerumen 01/09/2019 Ears/Nose/Throat/Neck No headache 01/09/2019 Ears/Nose/Throat/Neck hearing loss 01/09/2019 Ears/Nose/Throat/Neck No nasal allergies 01/09/2019 Ears/Nose/Throat/Neck No nasal discharge 01/09/2019 Ears/Nose/Throat/Neck No sore throat 01/09/2019 Ears/Nose/Throat/Neck No postnasal drip 01/09/2019 Ears/Nose/Throat/Neck No sinus congestion 01/09/2019 Cardiovascular No chest pain/pressure 01/09/2019 Cardiovascular No dyspnea 01/09/2019 Cardiovascular No edema 01/09/2019 Cardiovascular No fatigue 01/09/2019 Respiratory No chest congestion 01/09/2019 Respiratory No cough Respiratory No dyspnea 0 01/09/2019 Gastrointestinal No abdominal pain 01/09/2019 Gastrointestinal No constipation 01/09/2019 Gastrointestinal No diarrhea 01/09/2019 Gastrointestinal gastroesophageal reflux 01/09/2019 Gastrointestinal No nausea 01/09/2019 Gastrointestinal No vomiting 01/09/2019 Musculoskeletal stiffness 01/09/2019 Musculoskeletal muscle weakness 01/09/2019 Dermatologic rash 2018 Dermatologic No sores Neurologic No alteration of consciousness 01/09/2019 Neurologic No mental status change 01/09/2019 Psychiatric No anxiety 0 01/09/2019 Psychiatric No depression 01/09/2019 Constitutional No recent illness 12/31/2018 Constitutional No chills 12/31/2018 Constitutional No diaphoresis 12/31/2018 Constitutional No fever 12/31/2018 Eyes No eye erythema 04/2019 Ears/Nose/Throat/Neck No nasal discharge 12/31/2018 Cardiovascular No chest pain/pressure 12/31/2018 Respiratory No cough 04/2019 Gastrointestinal No abdominal pain 12/31/2018 Genitourinary/Nephrology dysuria 12/31/2018 Genitourinary/Nephrology urinary urgency 12/31/2018 Genitourinary/Nephrology urinary frequency 12/31/2018 Neurologic No alteration of consciousness 12/31/2018 Neurologic No mental status change 12/31/2018 Constitutional No recent illness 09/05/2018 Constitutional No chills 09/05/2018 Constitutional No fatigue 09/05/2018 Constitutional No fever 09/05/2018 Constitutional No insomnia 09/05/2018 Constitutional No malaise 09/05/2018 Eyes No blindness 2017 Eyes No vision change Ears/Nose/Throat/Neck No headache 09/05/2018 Ears/Nose/Throat/Neck hearing loss 09/05/2018 Ears/Nose/Throat/Neck No nasal allergies 09/05/2018 Ears/Nose/Throat/Neck No nasal discharge 09/05/2018 Ears/Nose/Throat/Neck No sore throat 09/05/2018 Ears/Nose/Throat/Neck No postnasal drip 09/05/2018 Ears/Nose/Throat/Neck No sinus congestion 09/05/2018 Cardiovascular No chest pain/pressure 09/05/2018 Cardiovascular No dyspnea 09/05/2018 Cardiovascular No edema 09/05/2018 Cardiovascular No fatigue 09/05/2018 Respiratory No chest congestion 09/05/2018 Respiratory No cough 08/2018 Respiratory No dyspnea 1 11/06/2017 Gastrointestinal No abdominal pain 09/05/2018 Gastrointestinal No constipation 09/05/2018 Gastrointestinal No diarrhea 09/05/2018 Gastrointestinal gastroesophageal reflux 09/05/2018 Gastrointestinal No nausea 09/05/2018 Gastrointestinal No vomiting 09/05/2018 Musculoskeletal muscle weakness 09/05/2018 Dermatologic rash 2017 Dermatologic No sores Neurologic No alteration of consciousness 09/05/2018 Neurologic No mental status change 09/05/2018 Psychiatric No anxiety 1 11/06/2017 Psychiatric No depression 09/05/2018 Genitourinary/Nephrology urinary urgency 09/05/2018 Constitutional No recent illness 08/15/2018 Constitutional No chills 08/15/2018 Constitutional No fatigue 08/15/2018 Constitutional No fever 08/15/2018 Constitutional No insomnia 08/15/2018 Constitutional No malaise 08/15/2018 Eyes No blindness 2017 Eyes No vision change Ears/Nose/Throat/Neck cerumen 08/15/2018 Ears/Nose/Throat/Neck No headache 08/15/2018 Ears/Nose/Throat/Neck hearing loss 08/15/2018 Ears/Nose/Throat/Neck No nasal allergies 08/15/2018 Ears/Nose/Throat/Neck No nasal discharge 08/15/2018 Ears/Nose/Throat/Neck No sore throat 08/15/2018 Ears/Nose/Throat/Neck No postnasal drip 08/15/2018 Ears/Nose/Throat/Neck No sinus congestion 08/15/2018 Cardiovascular No chest pain/pressure 08/15/2018 Cardiovascular No dyspnea 08/15/2018 Cardiovascular No edema 08/15/2018 Cardiovascular No fatigue 08/15/2018 Respiratory No chest congestion 08/15/2018 Respiratory No cough Respiratory No dyspnea 1 10/15/2017 Gastrointestinal No abdominal pain 08/15/2018 Gastrointestinal No constipation 08/15/2018 Gastrointestinal No diarrhea 08/15/2018 Gastrointestinal gastroesophageal reflux 08/15/2018 Gastrointestinal No nausea 08/15/2018 Gastrointestinal No vomiting 08/15/2018 Musculoskeletal joint complaint 08/15/2018 Dermatologic rash 2017 Dermatologic No sores Neurologic No alteration of consciousness 08/15/2018 Neurologic No mental status change 08/15/2018 Psychiatric No anxiety 1 10/15/2017 Psychiatric No depression 08/15/2018 Musculoskeletal stiffness 08/15/2018 Musculoskeletal muscle weakness 08/15/2018 Constitutional No recent illness 05/29/2018 Constitutional No anorexia 05/29/2018 Constitutional No night sweats 05/29/2018 Constitutional No chills 05/29/2018 Constitutional No diaphoresis 05/29/2018 Constitutional No fatigue 05/29/2018 Constitutional No fever 05/29/2018 Constitutional No insomnia 05/29/2018 Constitutional No malaise 05/29/2018 Constitutional No weight loss 05/29/2018 Constitutional No weight gain 05/29/2018 Dermatologic rash 2017 Eyes No eye discharge Eyes No eye erythema 12/2017 Ears/Nose/Throat/Neck nasal allergies 05/29/2018 Ears/Nose/Throat/Neck nasal discharge 05/29/2018 Cardiovascular No chest pain/pressure 05/29/2018 Respiratory No cough 12/2017 Gastrointestinal No abdominal pain 05/29/2018 Gastrointestinal No constipation 05/29/2018 Gastrointestinal No diarrhea 05/29/2018 Gastrointestinal gastroesophageal reflux 05/29/2018 Genitourinary/Nephrology No dysuria 05/29/2018 Musculoskeletal No joint complaint 05/29/2018 Neurologic No alteration of consciousness 05/29/2018 Constitutional No recent illness 05/14/2018 Constitutional No anorexia 05/14/2018 Constitutional No night sweats 05/14/2018 Constitutional No chills 05/14/2018 Constitutional No diaphoresis 05/14/2018 Constitutional No fatigue 05/14/2018 Constitutional No fever 05/14/2018 Constitutional No insomnia 05/14/2018 Constitutional No malaise 05/14/2018 Constitutional No weight loss 05/14/2018 Constitutional No weight gain 05/14/2018 Dermatologic rash 2017 Constitutional No recent illness 04/18/2018 Constitutional No chills 04/18/2018 Constitutional No fatigue 04/18/2018 Constitutional No fever 04/18/2018 Constitutional No insomnia 04/18/2018 Constitutional No malaise 04/18/2018 Eyes No blindness 2017 Eyes No vision change Ears/Nose/Throat/Neck cerumen 04/18/2018 Ears/Nose/Throat/Neck No headache 04/18/2018 Ears/Nose/Throat/Neck hearing loss 04/18/2018 Ears/Nose/Throat/Neck No nasal allergies 04/18/2018 Ears/Nose/Throat/Neck No nasal discharge 04/18/2018 Ears/Nose/Throat/Neck No sore throat 04/18/2018 Ears/Nose/Throat/Neck No postnasal drip 04/18/2018 Ears/Nose/Throat/Neck No sinus congestion 04/18/2018 Cardiovascular No chest pain/pressure 04/18/2018 Cardiovascular No dyspnea 04/18/2018 Cardiovascular No edema 04/18/2018 Cardiovascular No fatigue 04/18/2018 Respiratory No chest congestion 04/18/2018 Respiratory No cough Respiratory No dyspnea 0 04/18/2018 Gastrointestinal No abdominal pain 04/18/2018 Gastrointestinal No constipation 04/18/2018 Gastrointestinal No diarrhea 04/18/2018 Gastrointestinal gastroesophageal reflux 04/18/2018 Gastrointestinal No nausea 04/18/2018 Gastrointestinal No vomiting 04/18/2018 Musculoskeletal joint complaint 04/18/2018 Dermatologic No rash Dermatologic No sores Dermatologic No scar Neurologic No alteration of consciousness 04/18/2018 Neurologic No mental status change 04/18/2018 Psychiatric No anxiety 0 04/18/2018 Psychiatric No depression 04/18/2018 Constitutional No recent illness 01/22/2018 Constitutional No night sweats 01/22/2018 Constitutional No chills 01/22/2018 Eyes No blindness 2017 Eyes No vision change Ears/Nose/Throat/Neck cerumen 01/22/2018 Cardiovascular No chest pain/pressure 01/22/2018 Cardiovascular No dyspnea 01/22/2018 Cardiovascular No edema 01/22/2018 Cardiovascular No exercise intolerance 01/22/2018 Cardiovascular No fatigue 01/22/2018 Cardiovascular No near-syncope/dizziness 01/22/2018 Respiratory No daytime hypersomnolence 01/22/2018 Gastrointestinal No hemorrhoids 01/22/2018 Gastrointestinal No abdominal pain 01/22/2018 Gastrointestinal No constipation 01/22/2018 Gastrointestinal No diarrhea 01/22/2018 Gastrointestinal No gastroesophageal reflu x 01/22/2018 Gastrointestinal No melena 01/22/2018 Gastrointestinal No nausea 01/22/2018 Gastrointestinal No vomiting 01/22/2018 Musculoskeletal stiffness 01/22/2018 Musculoskeletal No swelling 01/22/2018 Musculoskeletal No muscle weakness 01/22/2018 Musculoskeletal No myalgias 01/22/2018 Musculoskeletal shoulder pain 01/22/2018 Dermatologic No rash Dermatologic No scar Neurologic No dizziness 01/22/2018 Neurologic No headache 0 01/22/2018 Neurologic No neck pain 01/22/2018 Neurologic No syncope Psychiatric anxiety 12/26 Constitutional No recent illness 01/01/2018 Constitutional No night sweats 01/01/2018 Constitutional No chills 01/01/2018 Eyes No blindness 2017 Eyes No vision change Ears/Nose/Throat/Neck cerumen 01/01/2018 Cardiovascular No chest pain/pressure 01/01/2018 Cardiovascular No dyspnea 01/01/2018 Cardiovascular No edema 01/01/2018 Cardiovascular No exercise intolerance 01/01/2018 Cardiovascular No fatigue 01/01/2018 Cardiovascular No near-syncope/dizziness 01/01/2018 Respiratory No daytime hypersomnolence 01/01/2018 Gastrointestinal No hemorrhoids 01/01/2018 Gastrointestinal No abdominal pain 01/01/2018 Gastrointestinal No constipation 01/01/2018 Gastrointestinal No diarrhea 01/01/2018 Gastrointestinal No gastroesophageal reflu x 01/01/2018 Gastrointestinal No melena 01/01/2018 Gastrointestinal No nausea 01/01/2018 Gastrointestinal No vomiting 01/01/2018 Musculoskeletal stiffness 01/01/2018 Musculoskeletal No swelling 01/01/2018 Musculoskeletal No muscle weakness 01/01/2018 Musculoskeletal No myalgias 01/01/2018 Dermatologic No rash 05/2018 Dermatologic No scar 05/2018 Neurologic No dizziness 01/01/2018 Neurologic No headache 0 01/01/2018 Neurologic No neck pain 01/01/2018 Neurologic No syncope Psychiatric anxiety 04/0 05/2018 Musculoskeletal shoulder pain 01/01/2018 Constitutional No recent illness 12/12/2017 Constitutional No chills 12/12/2017 Constitutional No fatigue 12/12/2017 Constitutional No fever 12/12/2017 Constitutional No insomnia 12/12/2017 Constitutional No malaise 12/12/2017 Eyes No blindness 2017 Eyes No vision change Ears/Nose/Throat/Neck No headache 12/12/2017 Ears/Nose/Throat/Neck No nasal allergies 12/12/2017 Ears/Nose/Throat/Neck No nasal discharge 12/12/2017 Ears/Nose/Throat/Neck No sore throat 12/12/2017 Ears/Nose/Throat/Neck No postnasal drip 12/12/2017 Ears/Nose/Throat/Neck No sinus congestion 12/12/2017 Cardiovascular No chest pain/pressure 12/12/2017 Cardiovascular No dyspnea 12/12/2017 Cardiovascular No edema 12/12/2017 Cardiovascular No fatigue 12/12/2017 Respiratory No chest congestion 12/12/2017 Respiratory No cough Respiratory No dyspnea 0 12/12/2017 Gastrointestinal No abdominal pain 12/12/2017 Gastrointestinal No constipation 12/12/2017 Gastrointestinal No diarrhea 12/12/2017 Gastrointestinal gastroesophageal reflux 12/12/2017 Gastrointestinal No nausea 12/12/2017 Gastrointestinal No vomiting 12/12/2017 Musculoskeletal joint complaint 12/12/2017 Dermatologic No rash Dermatologic No sores Dermatologic No scar Neurologic No alteration of consciousness 12/12/2017 Neurologic No mental status change 12/12/2017 Psychiatric No anxiety 0 12/12/2017 Psychiatric No depression 12/12/2017 Ears/Nose/Throat/Neck hearing loss 12/12/2017 Ears/Nose/Throat/Neck cerumen 12/12/2017 Constitutional No recent illness 09/13/2017 Constitutional No chills 09/13/2017 Constitutional No fatigue 09/13/2017 Constitutional No fever 09/13/2017 Constitutional No insomnia 09/13/2017 Constitutional No malaise 09/13/2017 Eyes No blindness 2016 Eyes No vision change Ears/Nose/Throat/Neck No headache 09/13/2017 Ears/Nose/Throat/Neck No nasal allergies 09/13/2017 Ears/Nose/Throat/Neck No nasal discharge 09/13/2017 Ears/Nose/Throat/Neck No sore throat 09/13/2017 Ears/Nose/Throat/Neck No postnasal drip 09/13/2017 Ears/Nose/Throat/Neck No sinus congestion 09/13/2017 Cardiovascular No chest pain/pressure 09/13/2017 Cardiovascular No dyspnea 09/13/2017 Cardiovascular No edema 09/13/2017 Cardiovascular No fatigue 09/13/2017 Respiratory No chest congestion 09/13/2017 Respiratory No cough Respiratory No dyspnea 1 11/14/2016 Gastrointestinal No abdominal pain 09/13/2017 Gastrointestinal No constipation 09/13/2017 Gastrointestinal No diarrhea 09/13/2017 Gastrointestinal gastroesophageal reflux 09/13/2017 Gastrointestinal No nausea 09/13/2017 Gastrointestinal No vomiting 09/13/2017 Musculoskeletal joint complaint 09/13/2017 Dermatologic No rash Dermatologic No sores Dermatologic No scar Neurologic No alteration of consciousness 09/13/2017 Neurologic No mental status change 09/13/2017 Psychiatric No anxiety 1 11/14/2016 Psychiatric No depression 09/13/2017 Constitutional No night sweats 06/21/2017 Constitutional No chills 06/21/2017 Cardiovascular No chest pain/pressure 06/21/2017 Cardiovascular No dyspnea 06/21/2017 Cardiovascular No edema 06/21/2017 Cardiovascular No exercise intolerance 06/21/2017 Cardiovascular No fatigue 06/21/2017 Cardiovascular No near-syncope/dizziness 06/21/2017 Respiratory No daytime hypersomnolence 06/21/2017 Gastrointestinal No abdominal pain 06/21/2017 Gastrointestinal No constipation 06/21/2017 Gastrointestinal No diarrhea 06/21/2017 Gastrointestinal No melena 06/21/2017 Genitourinary/Nephrology No urinary incontinence 06/21/2017 Musculoskeletal stiffness 06/21/2017 Musculoskeletal muscle weakness 06/21/2017 Dermatologic No rash Dermatologic No scar Neurologic No dizziness 06/21/2017 Neurologic No headache 0 06/21/2017 Neurologic No neck pain 06/21/2017 Neurologic No syncope Psychiatric anxiety 05/27 Genitourinary/Nephrology No dysuria 06/21/2017 Gastrointestinal gastroesophageal reflux 06/21/2017 Constitutional recent illness 05/25/2017 Constitutional No night sweats 05/25/2017 Constitutional No chills 05/25/2017 Eyes No blindness 2016 Eyes No vision change Cardiovascular No chest pain/pressure 05/25/2017 Cardiovascular No dyspnea 05/25/2017 Cardiovascular No edema 05/25/2017 Cardiovascular No exercise intolerance 05/25/2017 Cardiovascular No fatigue 05/25/2017 Cardiovascular No near-syncope/dizziness 05/25/2017 Respiratory No daytime hypersomnolence 05/25/2017 Gastrointestinal No hemorrhoids 05/25/2017 Gastrointestinal No abdominal pain 05/25/2017 Gastrointestinal No constipation 05/25/2017 Gastrointestinal No diarrhea 05/25/2017 Gastrointestinal No gastroesophageal reflu x 05/25/2017 Gastrointestinal No melena 05/25/2017 Gastrointestinal No nausea 05/25/2017 Gastrointestinal No vomiting 05/25/2017 Genitourinary/Nephrology No dysuria 05/25/2017 Genitourinary/Nephrology No nocturia 05/25/2017 Genitourinary/Nephrology No urinary incontinence 05/25/2017 Musculoskeletal stiffness 05/25/2017 Musculoskeletal muscle weakness 05/25/2017 Dermatologic No rash Dermatologic No scar Neurologic No dizziness 05/25/2017 Neurologic No headache 0 05/25/2017 Neurologic No neck pain 05/25/2017 Neurologic No syncope Psychiatric anxiety 04/27 Constitutional recent illness 05/16/2017 Constitutional No night sweats 05/16/2017 Constitutional No chills 05/16/2017 Eyes No blindness 2016 Eyes No vision change Cardiovascular No chest pain/pressure 05/16/2017 Cardiovascular No dyspnea 05/16/2017 Cardiovascular No edema 05/16/2017 Cardiovascular No exercise intolerance 05/16/2017 Cardiovascular No fatigue 05/16/2017 Cardiovascular No near-syncope/dizziness 05/16/2017 Respiratory No daytime hypersomnolence 05/16/2017 Gastrointestinal No hemorrhoids 05/16/2017 Gastrointestinal No abdominal pain 05/16/2017 Gastrointestinal No constipation 05/16/2017 Gastrointestinal No diarrhea 05/16/2017 Gastrointestinal No gastroesophageal reflu x 05/16/2017 Gastrointestinal No melena 05/16/2017 Gastrointestinal No nausea 05/16/2017 Gastrointestinal No vomiting 05/16/2017 Dermatologic No rash Dermatologic No scar Neurologic No dizziness 05/16/2017 Neurologic No headache 0 05/16/2017 Neurologic No neck pain 05/16/2017 Neurologic No syncope Psychiatric anxiety 04/26 Genitourinary/Nephrology No dysuria 05/16/2017 Genitourinary/Nephrology No nocturia 05/16/2017 Genitourinary/Nephrology No urinary incontinence 05/16/2017 Musculoskeletal stiffness 05/16/2017 Musculoskeletal muscle weakness 05/16/2017 Constitutional No recent illness 02/15/2017 Constitutional No night sweats 02/15/2017 Constitutional No chills 02/15/2017 Eyes No blindness 2016 Eyes No vision change Ears/Nose/Throat/Neck cerumen 02/15/2017 Cardiovascular No chest pain/pressure 02/15/2017 Cardiovascular No dyspnea 02/15/2017 Cardiovascular No edema 02/15/2017 Cardiovascular No exercise intolerance 02/15/2017 Cardiovascular No fatigue 02/15/2017 Cardiovascular No near-syncope/dizziness 02/15/2017 Respiratory No daytime hypersomnolence 02/15/2017 Gastrointestinal No hemorrhoids 02/15/2017 Gastrointestinal No abdominal pain 02/15/2017 Gastrointestinal No constipation 02/15/2017 Gastrointestinal No diarrhea 02/15/2017 Gastrointestinal No gastroesophageal reflu x 02/15/2017 Gastrointestinal No melena 02/15/2017 Gastrointestinal No nausea 02/15/2017 Gastrointestinal No vomiting 02/15/2017 Dermatologic No rash Dermatologic No scar Neurologic No dizziness 02/15/2017 Neurologic No headache 0 02/15/2017 Neurologic No neck pain 02/15/2017 Neurologic No syncope Psychiatric anxiety 01/24 Musculoskeletal No stiffness 02/15/2017 Musculoskeletal No swelling 02/15/2017 Musculoskeletal No muscle weakness 02/15/2017 Musculoskeletal No myalgias 02/15/2017 Constitutional recent illness 11/22/2016 Constitutional No night sweats 11/22/2016 Constitutional No chills 11/22/2016 Eyes No blindness 2016 Eyes No vision change Cardiovascular No chest pain/pressure 11/22/2016 Cardiovascular No dyspnea 11/22/2016 Cardiovascular No edema 11/22/2016 Cardiovascular No exercise intolerance 11/22/2016 Cardiovascular No fatigue 11/22/2016 Cardiovascular No near-syncope/dizziness 11/22/2016 Respiratory No daytime hypersomnolence 11/22/2016 Gastrointestinal No hemorrhoids 11/22/2016 Gastrointestinal No abdominal pain 11/22/2016 Gastrointestinal No constipation 11/22/2016 Gastrointestinal No diarrhea 11/22/2016 Gastrointestinal No gastroesophageal reflu x 11/22/2016 Gastrointestinal No melena 11/22/2016 Gastrointestinal No nausea 11/22/2016 Gastrointestinal No vomiting 11/22/2016 Dermatologic No rash Dermatologic No scar Neurologic No dizziness 11/22/2016 Neurologic No headache 0 11/22/2016 Neurologic No neck pain 11/22/2016 Neurologic No syncope Psychiatric anxiety 10/27 Constitutional No recent illness 09/15/2016 Constitutional No fever 09/15/2016 Eyes No eye erythema Ears/Nose/Throat/Neck No nasal discharge 09/15/2016 Cardiovascular No chest pain/pressure 09/15/2016 Respiratory No cough Respiratory No dyspnea 1 11/16/2015 Dermatologic skin lesion 09/15/2016 Neurologic No alteration of consciousness 09/15/2016 Neurologic No mental status change 09/15/2016 Constitutional No recent illness 09/07/2016 Constitutional No night sweats 09/07/2016 Constitutional No chills 09/07/2016 Dermatologic No rash Dermatologic No scar Psychiatric anxiety 08/25 Ears/Nose/Throat/Neck cerumen 09/07/2016 Respiratory No daytime hypersomnolence 09/07/2016 Eyes No blindness 2015 Eyes No vision change Cardiovascular No chest pain/pressure 09/07/2016 Cardiovascular No dyspnea 09/07/2016 Cardiovascular No edema 09/07/2016 Cardiovascular No exercise intolerance 09/07/2016 Cardiovascular No fatigue 09/07/2016 Cardiovascular No near-syncope/dizziness 09/07/2016 Gastrointestinal No hemorrhoids 09/07/2016 Gastrointestinal No abdominal pain 09/07/2016 Gastrointestinal No constipation 09/07/2016 Gastrointestinal No diarrhea 09/07/2016 Gastrointestinal No gastroesophageal reflu x 09/07/2016 Gastrointestinal No melena 09/07/2016 Gastrointestinal No nausea 09/07/2016 Gastrointestinal No vomiting 09/07/2016 Neurologic No dizziness 09/07/2016 Neurologic No headache 1 11/08/2015 Neurologic No neck pain 09/07/2016 Neurologic No syncope Constitutional No recent illness 07/06/2016 Constitutional No chills 07/06/2016 Constitutional No fatigue 07/06/2016 Constitutional No fever 07/06/2016 Constitutional No insomnia 07/06/2016 Constitutional No malaise 07/06/2016 Eyes No blindness 2015 Eyes No vision change Ears/Nose/Throat/Neck No headache 07/06/2016 Ears/Nose/Throat/Neck No nasal allergies 07/06/2016 Ears/Nose/Throat/Neck nasal discharge 07/06/2016 Ears/Nose/Throat/Neck No sore throat 07/06/2016 Ears/Nose/Throat/Neck No postnasal drip 07/06/2016 Ears/Nose/Throat/Neck No sinus congestion 07/06/2016 Cardiovascular No chest pain/pressure 07/06/2016 Cardiovascular No dyspnea 07/06/2016 Cardiovascular No edema 07/06/2016 Cardiovascular No fatigue 07/06/2016 Respiratory No chest congestion 07/06/2016 Respiratory No cough 08/2016 Respiratory No dyspnea 1 Gastrointestinal No abdominal pain 07/06/2016 Gastrointestinal No constipation 07/06/2016 Gastrointestinal No diarrhea 07/06/2016 Gastrointestinal gastroesophageal reflux 07/06/2016 Gastrointestinal No nausea 07/06/2016 Gastrointestinal No vomiting 07/06/2016 Genitourinary/Nephrology No dysuria 07/06/2016 Musculoskeletal No joint complaint 07/06/2016 Dermatologic No rash 08/2016 Dermatologic No sores Dermatologic No scar 08/2016 Neurologic No alteration of consciousness 07/06/2016 Neurologic No mental status change 07/06/2016 Psychiatric No anxiety 1 Psychiatric No depression 07/06/2016 Musculoskeletal back pain 07/06/2016 Constitutional No recent illness 04/06/2016 Constitutional No chills 04/06/2016 Constitutional No fatigue 04/06/2016 Constitutional No fever 04/06/2016 Constitutional No insomnia 04/06/2016 Constitutional No malaise 04/06/2016 Eyes No blindness 2015 Eyes No vision change Ears/Nose/Throat/Neck No headache 04/06/2016 Ears/Nose/Throat/Neck No nasal allergies 04/06/2016 Ears/Nose/Throat/Neck No nasal discharge 04/06/2016 Ears/Nose/Throat/Neck No postnasal drip 04/06/2016 Ears/Nose/Throat/Neck No sinus congestion 04/06/2016 Ears/Nose/Throat/Neck No sore throat 04/06/2016 Cardiovascular No chest pain/pressure 04/06/2016 Cardiovascular No dyspnea 04/06/2016 Cardiovascular No edema 04/06/2016 Cardiovascular No fatigue 04/06/2016 Respiratory No chest congestion 04/06/2016 Respiratory No cough Respiratory No dyspnea 0 04/06/2016 Gastrointestinal No abdominal pain 04/06/2016 Gastrointestinal No constipation 04/06/2016 Gastrointestinal No diarrhea 04/06/2016 Gastrointestinal gastroesophageal reflux 04/06/2016 Gastrointestinal No nausea 04/06/2016 Gastrointestinal No vomiting 04/06/2016 Genitourinary/Nephrology No dysuria 04/06/2016 Musculoskeletal No joint complaint 04/06/2016 Dermatologic No rash Dermatologic No sores Dermatologic No scar Neurologic No alteration of consciousness 04/06/2016 Neurologic No mental status change 04/06/2016 Psychiatric No anxiety 0 04/06/2016 Psychiatric No depression 04/06/2016 Constitutional No recent illness 01/06/2016 Constitutional No chills 01/06/2016 Constitutional No fatigue 01/06/2016 Constitutional No fever 01/06/2016 Constitutional No insomnia 01/06/2016 Constitutional No malaise 01/06/2016 Eyes No eye erythema Eyes No vision change Ears/Nose/Throat/Neck No headache 01/06/2016 Ears/Nose/Throat/Neck No nasal allergies 01/06/2016 Ears/Nose/Throat/Neck No sore throat 01/06/2016 Ears/Nose/Throat/Neck No postnasal drip 01/06/2016 Ears/Nose/Throat/Neck No sinus congestion 01/06/2016 Cardiovascular No chest pain/pressure 01/06/2016 Cardiovascular No dyspnea 01/06/2016 Cardiovascular No edema 01/06/2016 Cardiovascular No fatigue 01/06/2016 Respiratory No chest congestion 01/06/2016 Respiratory No cough Respiratory No dyspnea 0 01/06/2016 Gastrointestinal No abdominal pain 01/06/2016 Gastrointestinal No constipation 01/06/2016 Gastrointestinal No diarrhea 01/06/2016 Gastrointestinal gastroesophageal reflux 01/06/2016 Gastrointestinal No nausea 01/06/2016 Gastrointestinal No vomiting 01/06/2016 Genitourinary/Nephrology No dysuria 01/06/2016 Dermatologic No rash Dermatologic No sores Dermatologic No scar Neurologic No alteration of consciousness 01/06/2016 Psychiatric No anxiety 0 01/06/2016 Psychiatric No depression 01/06/2016 Ears/Nose/Throat/Neck No nasal discharge 01/06/2016 Musculoskeletal No joint complaint 01/06/2016 Neurologic No mental status change 01/06/2016 Constitutional No recent illness 09/02/2015 Constitutional No chills 09/02/2015 Constitutional No fatigue 09/02/2015 Constitutional No fever 09/02/2015 Constitutional No insomnia 09/02/2015 Constitutional No malaise 09/02/2015 Eyes No blindness 2014 Eyes No vision change Ears/Nose/Throat/Neck No dental pain 09/02/2015 Ears/Nose/Throat/Neck No dizziness 09/02/2015 Ears/Nose/Throat/Neck No dysphagia 09/02/2015 Ears/Nose/Throat/Neck No headache 09/02/2015 Ears/Nose/Throat/Neck No hearing loss 09/02/2015 Ears/Nose/Throat/Neck No nasal allergies 09/02/2015 Ears/Nose/Throat/Neck No sore throat 09/02/2015 Ears/Nose/Throat/Neck No postnasal drip 09/02/2015 Ears/Nose/Throat/Neck No sinus congestion 09/02/2015 Cardiovascular No chest pain/pressure 09/02/2015 Cardiovascular No dyspnea 09/02/2015 Cardiovascular No edema 09/02/2015 Cardiovascular No exercise intolerance 09/02/2015 Cardiovascular No fatigue 09/02/2015 Cardiovascular hypertension 09/02/2015 Cardiovascular No near-syncope/dizziness 09/02/2015 Cardiovascular No palpitations 09/02/2015 Respiratory No chest congestion 09/02/2015 Respiratory No chest tightness 09/02/2015 Respiratory No cough 05/2015 Respiratory No dyspnea 1 11/03/2014 Respiratory No pedal edema 09/02/2015 Gastrointestinal No abdominal pain 09/02/2015 Gastrointestinal No constipation 09/02/2015 Gastrointestinal No diarrhea 09/02/2015 Gastrointestinal gastroesophageal reflux 09/02/2015 Gastrointestinal No nausea 09/02/2015 Gastrointestinal No vomiting 09/02/2015 Genitourinary/Nephrology No dysuria 09/02/2015 Genitourinary/Nephrology No nocturia 09/02/2015 Genitourinary/Nephrology No urinary incontinence 09/02/2015 Musculoskeletal No stiffness 09/02/2015 Musculoskeletal No swelling 09/02/2015 Musculoskeletal No muscle weakness 09/02/2015 Musculoskeletal No myalgias 09/02/2015 Dermatologic No rash 05/2015 Dermatologic No sores Dermatologic No scar 05/2015 Neurologic No alteration of consciousness 09/02/2015 Neurologic No dizziness 09/02/2015 Neurologic No headache 1 11/03/2014 Neurologic No neck pain 09/02/2015 Neurologic No syncope Psychiatric No anxiety 1 11/03/2014 Psychiatric No depression 09/02/2015 Constitutional No recent illness 06/15/2015 Constitutional No night sweats 06/15/2015 Constitutional No anorexia 06/15/2015 Constitutional No chills 06/15/2015 Constitutional No diaphoresis 06/15/2015 Constitutional No fatigue 06/15/2015 Constitutional No fever 06/15/2015 Constitutional No insomnia 06/15/2015 Constitutional No weight loss 06/15/2015 Constitutional No malaise 06/15/2015 Constitutional No weight gain 06/15/2015 Eyes No eye discharge Eyes No eye erythema Ears/Nose/Throat/Neck No dizziness 06/15/2015 Ears/Nose/Throat/Neck No headache 06/15/2015 Cardiovascular No chest pain/pressure 06/15/2015 Cardiovascular No dyspnea 06/15/2015 Cardiovascular No edema 06/15/2015 Respiratory No cough Gastrointestinal No abdominal pain 06/15/2015 Gastrointestinal No constipation 06/15/2015 Gastrointestinal No diarrhea 06/15/2015 Genitourinary/Nephrology No dysuria 06/15/2015 Musculoskeletal arthralgia(s) 06/15/2015 Dermatologic rash 2014 Neurologic No alteration of consciousness 06/15/2015 Constitutional No chills 03/04/2015 Constitutional No fatigue 03/04/2015 Constitutional No fever 03/04/2015 Constitutional No recent illness 03/04/2015 Ears/Nose/Throat/Neck No dizziness 03/04/2015 Ears/Nose/Throat/Neck No headache 03/04/2015 Cardiovascular No chest pain/pressure 03/04/2015 Cardiovascular No near-syncope/dizziness 03/04/2015 Cardiovascular No palpitations 03/04/2015 Respiratory No chest congestion 03/04/2015 Respiratory No cough 06/2015 Gastrointestinal No abdominal pain 03/04/2015 Gastrointestinal No constipation 03/04/2015 Gastrointestinal No diarrhea 03/04/2015 Gastrointestinal No nausea 03/04/2015 Gastrointestinal No vomiting 03/04/2015 Genitourinary/Nephrology No dysuria 03/04/2015 Neurologic No alteration of consciousness 03/04/2015 Constitutional No insomnia 03/04/2015 Constitutional No malaise 03/04/2015 Eyes No blindness 2014 Eyes No vision change Ears/Nose/Throat/Neck No dental pain 03/04/2015 Ears/Nose/Throat/Neck No dysphagia 03/04/2015 Ears/Nose/Throat/Neck No hearing loss 03/04/2015 Ears/Nose/Throat/Neck No nasal allergies 03/04/2015 Ears/Nose/Throat/Neck No sore throat 03/04/2015 Ears/Nose/Throat/Neck No postnasal drip 03/04/2015 Ears/Nose/Throat/Neck No sinus congestion 03/04/2015 Cardiovascular No dyspnea 03/04/2015 Cardiovascular No edema 03/04/2015 Cardiovascular No exercise intolerance 03/04/2015 Cardiovascular No fatigue 03/04/2015 Respiratory No chest tightness 03/04/2015 Respiratory No dyspnea 0 03/04/2015 Respiratory No pedal edema 03/04/2015 Gastrointestinal gastroesophageal reflux 03/04/2015 Genitourinary/Nephrology No nocturia 03/04/2015 Genitourinary/Nephrology No urinary incontinence 03/04/2015 Musculoskeletal No stiffness 03/04/2015 Musculoskeletal No swelling 03/04/2015 Musculoskeletal No muscle weakness 03/04/2015 Musculoskeletal No myalgias 03/04/2015 Dermatologic No rash 06/2015 Dermatologic No sores Dermatologic No scar 06/2015 Neurologic No dizziness 03/04/2015 Neurologic No headache 0 03/04/2015 Neurologic No neck pain 03/04/2015 Neurologic No syncope Psychiatric No anxiety 0 03/04/2015 Psychiatric No depression 03/04/2015 Cardiovascular hypertension 03/04/2015 Physical Exam Exam Name System Name It em Name Status Result Effective Dates Notes Full Exam - General 1994 Constitutional general appearance Development: well developed 05/01/2019 None Full Exam - General 1994 Constitutional general appearance Development: appears stated age 0805/01/2019 None Full Exam - General 1994 Constitutional general appearance Hygiene/Attention to Grooming: good hygiene 05/01/2019 None Full Exam - General 1994 Eyes conjunctiva/eyelids Overall: conjunctiva clear 05/01/2019 None Full Exam - General 1994 Eyes conjunctiva/eyelids Overall: cornea clear 05/01/2019 None Full Exam - General 1994 Eyes conjunctiva/eyelids Overall: eyelids normal 05/01/2019 None Full Exam - General 1994 Eyes pupils and irises Overall: pupils equal, round, reactive to light and accomodation 05/01/2019 None Full Exam - General 1994 Ears/Nose/Throat external nose Mass: left 05/01/2019 None Full Exam - General 1994 Ears/Nose/Throat external nose Mass: nontender 05/01/2019 None Full Exam - General 1994 Ears/Nose/Throat external nose Mass: soft 05/01/2019 None Full Exam - General 1994 Ears/Nose/Throat external nose Mass: dorsum 05/01/2019 None Full Exam - General 1994 Ears/Nose/Throat otoscopic exam External auditory canal: complete cerumen impaction 05/01/2019 None Full Exam - General 1994 Ears/Nose/Throat otoscopic exam Tympanic membrane: not visualized until cerumen removed, TM pearly 05/01/2019 None Full Exam - General 1995 Ears/Nose/Throat lips/teeth/gingiva Overall: benign lips 05/01/2019 None Full Exam - General 1995 Ears/Nose/Throat lips/teeth/gingiva Overall: normal dentition 05/01/2019 None Full Exam - General 1995 Ears/Nose/Throat oral cavity/pharynx/larynx Overall: oral mucosa clear 05/01/2019 None Full Exam - General 1995 Ears/Nose/Throat oral cavity/pharynx/larynx Overall: oropharyngeal mucosa clear 05/01/2019 None Full Exam - General 1995 Ears/Nose/Throat oral cavity/pharynx/larynx Overall: no masses 05/01/2019 None Full Exam - General 1994 Respiratory auscultation Overall: breath sounds clear bilaterally 05/01/2019 None Full Exam - General 1994 Respiratory respiratory effort/rhythm Overall: no retractions 05/01/2019 None Full Exam - General 1994 Respiratory respiratory effort/rhythm Overall: normal rate 05/01/2019 None Full Exam - General 1994 Cardiovascular extremities Overall: no clubbing 05/01/2019 None Full Exam - General 1994 Cardiovascular auscultation of heart Overall: regular rate 05/01/2019 None Full Exam - General 1994 Cardiovascular auscultation of heart Overall: normal heart sounds 05/01/2019 None Full Exam - General 1994 Abdomen abdominal exam Overall: no tenderness 05/01/2019 None Full Exam - General 1994 Abdomen abdominal exam Overall: normal bowel sounds 05/01/2019 None Full Exam - General 1994 Lymphatic neck nodes Overall: anterior cervical chain benign 05/01/2019 None Full Exam - General 1994 Lymphatic neck nodes Overall: posterior cervical chain benign 05/01/2019 None Full Exam - General 1994 Musculoskeletal spine, ribs and pelvis Overall: good posture 05/01/2019 None Full Exam - General 1994 Musculoskeletal head and neck Overall: head atraumatic 05/01/2019 None Full Exam - General 1994 Neurologic gait Overall: no ataxia, no unsteadiness 05/01/2019 None Full Exam - General 1994 Neurologic cranial nerves Overall: crainial nerves 2 - 12 grossly intact 05/01/2019 None Full Exam - General 1994 Psychiatric orientation/consciousness Overall: oriented to person, place and time 05/01/2019 None Full Exam - General 1994 Psychiatric mood and affect Overall: normal mood and affect 05/01/2019 None Full Exam - General 1994 Psychiatric appearance Overall: well-groomed, good eye contact 05/01/2019 None Full Exam - General 1994 Psychiatric speech Overall: normal quality, no aphasia 05/01/2019 None Full Exam - General 1994 Psychiatric speech Overall: normal quality, quantity, r ate 05/01/2019 None Full Exam - General 1994 Constitutional general appearance Development: well developed 01/09/2019 None Full Exam - General 1994 Constitutional general appearance Development: appears stated age 0401/09/2019 None Full Exam - General 1994 Constitutional general appearance Hygiene/Attention to Grooming: good hygiene 01/09/2019 None Full Exam - General 1994 Eyes conjunctiva/eyelids Overall: conjunctiva clear 01/09/2019 None Full Exam - General 1994 Eyes conjunctiva/eyelids Overall: cornea clear 01/09/2019 None Full Exam - General 1994 Eyes conjunctiva/eyelids Overall: eyelids normal 01/09/2019 None Full Exam - General 1994 Eyes pupils and irises Overall: pupils equal, round, reactive to light and accomodation 01/09/2019 None Full Exam - General 1994 Ears/Nose/Throat external nose Mass: left 01/09/2019 None Full Exam - General 1994 Ears/Nose/Throat external nose Mass: nontender 01/09/2019 None Full Exam - General 1994 Ears/Nose/Throat external nose Mass: soft 01/09/2019 None Full Exam - General 1994 Ears/Nose/Throat external nose Mass: dorsum 01/09/2019 None Full Exam - General 1994 Ears/Nose/Throat otoscopic exam External auditory canal: complete cerumen impaction 01/09/2019 None Full Exam - General 1994 Ears/Nose/Throat otoscopic exam Tympanic membrane: not visualized until cerumen removed, TM pearly 01/09/2019 None Full Exam - General 1994 Ears/Nose/Throat lips/teeth/gingiva Overall: benign lips 01/09/2019 None Full Exam - General 1994 Ears/Nose/Throat lips/teeth/gingiva Overall: normal dentition 01/09/2019 None Full Exam - General 1994 Ears/Nose/Throat oral cavity/pharynx/larynx Overall: oral mucosa clear 01/09/2019 None Full Exam - General 1994 Ears/Nose/Throat oral cavity/pharynx/larynx Overall: oropharyngeal mucosa clear 01/09/2019 None Full Exam - General 1994 Ears/Nose/Throat oral cavity/pharynx/larynx Overall: no masses 01/09/2019 None Full Exam - General 1994 Respiratory auscultation Overall: breath sounds clear bilaterally 01/09/2019 None Full Exam - General 1994 Respiratory respiratory effort/rhythm Overall: no retractions 01/09/2019 None Full Exam - General 1994 Respiratory respiratory effort/rhythm Overall: normal rate 01/09/2019 None Full Exam - General 1994 Cardiovascular extremities Overall: no clubbing 01/09/2019 None Full Exam - General 1994 Cardiovascular auscultation of heart Overall: regular rate 01/09/2019 None Full Exam - General 1994 Cardiovascular auscultation of heart Overall: normal heart sounds 01/09/2019 None Full Exam - General 1994 Abdomen abdominal exam Overall: no tenderness 01/09/2019 None Full Exam - General 1994 Abdomen abdominal exam Overall: normal bowel sounds 01/09/2019 None Full Exam - General 1994 Lymphatic neck nodes Overall: anterior cervical chain benign 01/09/2019 None Full Exam - General 1994 Lymphatic neck nodes Overall: posterior cervical chain benign 01/09/2019 None Full Exam - General 1994 Musculoskeletal spine, ribs and pelvis Overall: good posture 01/09/2019 None Full Exam - General 1994 Musculoskeletal head and neck Overall: head atraumatic 01/09/2019 None Full Exam - General 1994 Integument inspection of skin Location: scalp 01/09/2019 irritated/dry from lower hair line to mid scalp posteriorly Full Exam - General 1994 Neurologic gait Overall: no ataxia, no unsteadiness 01/09/2019 None Full Exam - General 1994 Neurologic cranial nerves Overall: crainial nerves 2 - 12 grossly intact 01/09/2019 None Full Exam - General 1994 Psychiatric orientation/consciousness Overall: oriented to person, place and time 01/09/2019 None Full Exam - General 1994 Psychiatric mood and affect Overall: normal mood and affect 01/09/2019 None Full Exam - General 1994 Psychiatric appearance Overall: well-groomed, good eye contact 01/09/2019 None Full Exam - General 1994 Psychiatric speech Overall: normal quality, no aphasia 01/09/2019 None Full Exam - General 1994 Psychiatric speech Overall: normal quality, quantity, r ate 01/09/2019 None Full Exam - General 1994 Constitutional general appearance Overall: well developed 12/31/2018 None Full Exam - General 1994 Constitutional general appearance Overall: in no acute distress 12/31/2018 None Full Exam - General 1994 Constitutional general appearance Overall: well nourished 12/31/2018 None Full Exam - General 1994 Eyes conjunctiva/eyelids Overall: conjunctiva clear 12/31/2018 None Full Exam - General 1994 Eyes conjunctiva/eyelids Overall: cornea clear 12/31/2018 None Full Exam - General 1994 Eyes conjunctiva/eyelids Overall: eyelids normal 12/31/2018 None Full Exam - General 1994 Ears/Nose/Throat lips/teeth/gingiva Overall: benign lips 12/31/2018 None Full Exam - General 1994 Ears/Nose/Throat oral cavity/pharynx/larynx Overall: oral mucosa clear 12/31/2018 None Full Exam - General 1994 Respiratory respiratory effort/rhythm Overall: no retractions 12/31/2018 None Full Exam - General 1994 Respiratory respiratory effort/rhythm Overall: normal rate 12/31/2018 None Full Exam - General 1994 Cardiovascular auscultation of heart Overall: regular rate 12/31/2018 None Full Exam - General 1994 Cardiovascular auscultation of heart Overall: normal heart sounds 12/31/2018 None Full Exam - General 1994 Musculoskeletal head and neck Overall: head atraumatic 12/31/2018 None Full Exam - General 1994 Neurologic cranial nerves Overall: crainial nerves 2 - 12 grossly intact 12/31/2018 None Full Exam - General 1994 Psychiatric orientation/consciousness Overall: oriented to person, place and time 12/31/2018 None Full Exam - General 1994 Psychiatric mood and affect Overall: normal mood and affect 12/31/2018 None Full Exam - General 1994 Constitutional general appearance Development: well developed 09/05/2018 None Full Exam - General 1994 Constitutional general appearance Development: appears stated age 1209/05/2018 None Full Exam - General 1994 Constitutional general appearance Hygiene/Attention to Grooming: good hygiene 09/05/2018 None Full Exam - General 1994 Eyes conjunctiva/eyelids Overall: conjunctiva clear 09/05/2018 None Full Exam - General 1994 Eyes conjunctiva/eyelids Overall: cornea clear 09/05/2018 None Full Exam - General 1994 Eyes conjunctiva/eyelids Overall: eyelids normal 09/05/2018 None Full Exam - General 1994 Eyes pupils and irises Overall: pupils equal, round, reactive to light and accomodation 09/05/2018 None Full Exam - General 1994 Ears/Nose/Throat lips/teeth/gingiva Overall: benign lips 09/05/2018 None Full Exam - General 1994 Ears/Nose/Throat lips/teeth/gingiva Overall: normal dentition 09/05/2018 None Full Exam - General 1994 Ears/Nose/Throat oral cavity/pharynx/larynx Overall: oral mucosa clear 09/05/2018 None Full Exam - General 1994 Ears/Nose/Throat oral cavity/pharynx/larynx Overall: oropharyngeal mucosa clear 09/05/2018 None Full Exam - General 1994 Ears/Nose/Throat oral cavity/pharynx/larynx Overall: no masses 09/05/2018 None Full Exam - General 1994 Respiratory auscultation Overall: breath sounds clear bilaterally 09/05/2018 None Full Exam - General 1994 Respiratory respiratory effort/rhythm Overall: no retractions 09/05/2018 None Full Exam - General 1994 Respiratory respiratory effort/rhythm Overall: normal rate 09/05/2018 None Full Exam - General 1994 Cardiovascular extremities Overall: no clubbing 09/05/2018 None Full Exam - General 1994 Cardiovascular auscultation of heart Overall: regular rate 09/05/2018 None Full Exam - General 1994 Cardiovascular auscultation of heart Overall: normal heart sounds 09/05/2018 None Full Exam - General 1994 Abdomen abdominal exam Overall: no tenderness 09/05/2018 None Full Exam - General 1994 Abdomen abdominal exam Overall: normal bowel sounds 09/05/2018 None Full Exam - General 1994 Musculoskeletal spine, ribs and pelvis Overall: good posture 09/05/2018 None Full Exam - General 1994 Musculoskeletal head and neck Overall: head atraumatic 09/05/2018 None Full Exam - General 1994 Integument inspection of skin Location: scalp 09/05/2018 irritated/dry from lower hair line to mid scalp posteriorly Full Exam - General 1994 Neurologic cranial nerves Overall: crainial nerves 2 - 12 grossly intact 09/05/2018 None Full Exam - General 1994 Psychiatric orientation/consciousness Overall: oriented to person, place and time 09/05/2018 None Full Exam - General 1994 Psychiatric mood and affect Overall: normal mood and affect 09/05/2018 None Full Exam - General 1994 Psychiatric appearance Overall: well-groomed, good eye contact 09/05/2018 None Full Exam - General 1994 Psychiatric speech Overall: normal quality, no aphasia 09/05/2018 None Full Exam - General 1994 Psychiatric speech Overall: normal quality, quantity, r ate 09/05/2018 None Full Exam - General 1994 Constitutional general appearance Development: well developed 08/15/2018 None Full Exam - General 1994 Constitutional general appearance Development: appears stated age 1108/15/2018 None Full Exam - General 1994 Constitutional general appearance Hygiene/Attention to Grooming: good hygiene 08/15/2018 None Full Exam - General 1994 Eyes conjunctiva/eyelids Overall: conjunctiva clear 08/15/2018 None Full Exam - General 1994 Eyes conjunctiva/eyelids Overall: cornea clear 08/15/2018 None Full Exam - General 1994 Eyes conjunctiva/eyelids Overall: eyelids normal 08/15/2018 None Full Exam - General 1994 Eyes pupils and irises Overall: pupils equal, round, reactive to light and accomodation 08/15/2018 None Full Exam - General 1994 Ears/Nose/Throat external nose Mass: left 08/15/2018 None Full Exam - General 1994 Ears/Nose/Throat external nose Mass: nontender 08/15/2018 None Full Exam - General 1994 Ears/Nose/Throat external nose Mass: soft 08/15/2018 None Full Exam - General 1994 Ears/Nose/Throat external nose Mass: dorsum 08/15/2018 None Full Exam - General 1994 Ears/Nose/Throat otoscopic exam External auditory canal: complete cerumen impaction 08/15/2018 None Full Exam - General 1994 Ears/Nose/Throat otoscopic exam Tympanic membrane: not visualized until cerumen removed, TM pearly 08/15/2018 None Full Exam - General 1994 Ears/Nose/Throat lips/teeth/gingiva Overall: benign lips 08/15/2018 None Full Exam - General 1994 Ears/Nose/Throat lips/teeth/gingiva Overall: normal dentition 08/15/2018 None Full Exam - General 1994 Ears/Nose/Throat oral cavity/pharynx/larynx Overall: oral mucosa clear 08/15/2018 None Full Exam - General 1994 Ears/Nose/Throat oral cavity/pharynx/larynx Overall: oropharyngeal mucosa clear 08/15/2018 None Full Exam - General 1994 Ears/Nose/Throat oral cavity/pharynx/larynx Overall: no masses 08/15/2018 None Full Exam - General 1994 Respiratory auscultation Overall: breath sounds clear bilaterally 08/15/2018 None Full Exam - General 1994 Respiratory respiratory effort/rhythm Overall: no retractions 08/15/2018 None Full Exam - General 1994 Respiratory respiratory effort/rhythm Overall: normal rate 08/15/2018 None Full Exam - General 1994 Cardiovascular extremities Overall: no clubbing 08/15/2018 None Full Exam - General 1994 Cardiovascular auscultation of heart Overall: regular rate 08/15/2018 None Full Exam - General 1994 Cardiovascular auscultation of heart Overall: normal heart sounds 08/15/2018 None Full Exam - General 1994 Abdomen abdominal exam Overall: no tenderness 08/15/2018 None Full Exam - General 1994 Abdomen abdominal exam Overall: normal bowel sounds 08/15/2018 None Full Exam - General 1994 Lymphatic neck nodes Overall: anterior cervical chain benign 08/15/2018 None Full Exam - General 1994 Lymphatic neck nodes Overall: posterior cervical chain benign 08/15/2018 None Full Exam - General 1994 Musculoskeletal spine, ribs and pelvis Overall: good posture 08/15/2018 None Full Exam - General 1994 Musculoskeletal head and neck Overall: head atraumatic 08/15/2018 None Full Exam - General 1994 Neurologic gait Overall: no ataxia, no unsteadiness 08/15/2018 None Full Exam - General 1994 Neurologic cranial nerves Overall: crainial nerves 2 - 12 grossly intact 08/15/2018 None Full Exam - General 1994 Psychiatric orientation/consciousness Overall: oriented to person, place and time 08/15/2018 None Full Exam - General 1994 Psychiatric mood and affect Overall: normal mood and affect 08/15/2018 None Full Exam - General 1994 Psychiatric appearance Overall: well-groomed, good eye contact 08/15/2018 None Full Exam - General 1994 Psychiatric speech Overall: normal quality, no aphasia 08/15/2018 None Full Exam - General 1994 Psychiatric speech Overall: normal quality, quantity, r ate 08/15/2018 None Full Exam - General 1994 Integument inspection of skin Location: scalp 08/15/2018 irritated/dry from lower hair line to mid scalp posteriorly Full Exam - General 1994 Constitutional general appearance Development: well developed 05/29/2018 None Full Exam - General 1994 Constitutional general appearance Development: appears stated age 0905/29/2018 None Full Exam - General 1994 Constitutional general appearance Hygiene/Attention to Grooming: good hygiene 05/29/2018 None Full Exam - General 1994 Eyes pupils and irises Overall: pupils equal, round, reactive to light and accomodation 05/29/2018 None Full Exam - General 1994 Respiratory auscultation Overall: breath sounds clear bilaterally 05/29/2018 None Full Exam - General 1994 Respiratory respiratory effort/rhythm Overall: no retractions 05/29/2018 None Full Exam - General 1994 Respiratory respiratory effort/rhythm Overall: normal rate 05/29/2018 None Full Exam - General 1994 Cardiovascular extremities Overall: no clubbing 05/29/2018 None Full Exam - General 1994 Cardiovascular auscultation of heart Overall: regular rate 05/29/2018 None Full Exam - General 1994 Cardiovascular auscultation of heart Overall: normal heart sounds 05/29/2018 None Full Exam - General 1994 Musculoskeletal spine, ribs and pelvis Overall: good posture 05/29/2018 None Full Exam - General 1994 Musculoskeletal head and neck Overall: head atraumatic 05/29/2018 None Full Exam - General 1994 Integument inspection of skin Dermatitis: dryness/flaking 05/29/2018 None Full Exam - General 1994 Integument inspection of skin Dermatitis: scaling 05/29/2018 None Full Exam - General 1994 Integument inspection of skin Location: scalp 05/29/2018 None Full Exam - General 1994 Integument inspection of skin Rash/Lesions: patch 05/29/2018 None Full Exam - General 1994 Neurologic gait Overall: no ataxia, no unsteadiness 05/29/2018 None Full Exam - General 1994 Psychiatric orientation/consciousness Overall: oriented to person, place and time 05/29/2018 None Full Exam - General 1994 Psychiatric mood and affect Overall: normal mood and affect 05/29/2018 None Full Exam - General 1994 Psychiatric appearance Overall: well-groomed, good eye contact 05/29/2018 None Full Exam - General 1994 Psychiatric speech Overall: normal quality, no aphasia 05/29/2018 None Full Exam - General 1994 Psychiatric speech Overall: normal quality, quantity, r ate 05/29/2018 None Full Exam - General 1994 Ears/Nose/Throat otoscopic exam Overall: external auditory canals clear 05/29/2018 None Full Exam - General 1994 Ears/Nose/Throat otoscopic exam Overall: tympanic membranes clear 05/29/2018 None Full Exam - General 1994 Ears/Nose/Throat oral cavity/pharynx/larynx Overall: oral mucosa clear 05/29/2018 None Full Exam - General 1994 Lymphatic neck nodes Overall: anterior cervical chain benign 05/29/2018 None Full Exam - General 1994 Lymphatic neck nodes Overall: posterior cervical chain benign 05/29/2018 None Full Exam - General 1994 Constitutional general appearance Development: well developed 05/14/2018 None Full Exam - General 1994 Constitutional general appearance Development: appears stated age 0805/14/2018 None Full Exam - General 1994 Constitutional general appearance Hygiene/Attention to Grooming: good hygiene 05/14/2018 None Full Exam - General 1994 Eyes pupils and irises Overall: pupils equal, round, reactive to light and accomodation 05/14/2018 None Full Exam - General 1994 Respiratory auscultation Overall: breath sounds clear bilaterally 05/14/2018 None Full Exam - General 1994 Respiratory respiratory effort/rhythm Overall: no retractions 05/14/2018 None Full Exam - General 1994 Respiratory respiratory effort/rhythm Overall: normal rate 05/14/2018 None Full Exam - General 1994 Cardiovascular extremities Overall: no clubbing 05/14/2018 None Full Exam - General 1994 Cardiovascular auscultation of heart Overall: regular rate 05/14/2018 None Full Exam - General 1994 Cardiovascular auscultation of heart Overall: normal heart sounds 05/14/2018 None Full Exam - General 1994 Musculoskeletal spine, ribs and pelvis Overall: good posture 05/14/2018 None Full Exam - General 1994 Musculoskeletal head and neck Overall: head atraumatic 05/14/2018 None Full Exam - General 1994 Neurologic gait Overall: no ataxia, no unsteadiness 05/14/2018 None Full Exam - General 1994 Psychiatric orientation/consciousness Overall: oriented to person, place and time 05/14/2018 None Full Exam - General 1994 Psychiatric mood and affect Overall: normal mood and affect 05/14/2018 None Full Exam - General 1994 Psychiatric appearance Overall: well-groomed, good eye contact 05/14/2018 None Full Exam - General 1994 Psychiatric speech Overall: normal quality, no aphasia 05/14/2018 None Full Exam - General 1994 Psychiatric speech Overall: normal quality, quantity, r ate 05/14/2018 None Full Exam - General 1994 Integument inspection of skin Location: scalp 05/14/2018 None Full Exam - General 1994 Integument inspection of skin Rash/Lesions: patch 05/14/2018 None Full Exam - General 1994 Integument inspection of skin Dermatitis: dryness/flaking 05/14/2018 None Full Exam - General 1994 Integument inspection of skin Dermatitis: scaling 05/14/2018 None Full Exam - General 1994 Constitutional general appearance Development: well developed 04/18/2018 None Full Exam - General 1994 Constitutional general appearance Development: appears stated age 0704/18/2018 None Full Exam - General 1994 Constitutional general appearance Hygiene/Attention to Grooming: good hygiene 04/18/2018 None Full Exam - General 1994 Eyes conjunctiva/eyelids Overall: conjunctiva clear 04/18/2018 None Full Exam - General 1994 Eyes conjunctiva/eyelids Overall: cornea clear 04/18/2018 None Full Exam - General 1994 Eyes conjunctiva/eyelids Overall: eyelids normal 04/18/2018 None Full Exam - General 1994 Eyes pupils and irises Overall: pupils equal, round, reactive to light and accomodation 04/18/2018 None Full Exam - General 1994 Ears/Nose/Throat external nose Mass: left 04/18/2018 None Full Exam - General 1994 Ears/Nose/Throat external nose Mass: nontender 04/18/2018 None Full Exam - General 1994 Ears/Nose/Throat external nose Mass: soft 04/18/2018 None Full Exam - General 1994 Ears/Nose/Throat external nose Mass: dorsum 04/18/2018 None Full Exam - General 1994 Ears/Nose/Throat otoscopic exam External auditory canal: complete cerumen impaction 04/18/2018 None Full Exam - General 1994 Ears/Nose/Throat otoscopic exam Tympanic membrane: not visualized until cerumen removed, TM pearly 04/18/2018 None Full Exam - General 1994 Ears/Nose/Throat lips/teeth/gingiva Overall: benign lips 04/18/2018 None Full Exam - General 1994 Ears/Nose/Throat lips/teeth/gingiva Overall: normal dentition 04/18/2018 None Full Exam - General 1994 Ears/Nose/Throat oral cavity/pharynx/larynx Overall: oral mucosa clear 04/18/2018 None Full Exam - General 1994 Ears/Nose/Throat oral cavity/pharynx/larynx Overall: oropharyngeal mucosa clear 04/18/2018 None Full Exam - General 1994 Ears/Nose/Throat oral cavity/pharynx/larynx Overall: no masses 04/18/2018 None Full Exam - General 1994 Respiratory auscultation Overall: breath sounds clear bilaterally 04/18/2018 None Full Exam - General 1994 Respiratory respiratory effort/rhythm Overall: no retractions 04/18/2018 None Full Exam - General 1994 Respiratory respiratory effort/rhythm Overall: normal rate 04/18/2018 None Full Exam - General 1994 Cardiovascular extremities Overall: no clubbing 04/18/2018 None Full Exam - General 1994 Cardiovascular auscultation of heart Overall: regular rate 04/18/2018 None Full Exam - General 1994 Cardiovascular auscultation of heart Overall: normal heart sounds 04/18/2018 None Full Exam - General 1994 Abdomen abdominal exam Overall: no tenderness 04/18/2018 None Full Exam - General 1994 Abdomen abdominal exam Overall: normal bowel sounds 04/18/2018 None Full Exam - General 1994 Lymphatic neck nodes Overall: anterior cervical chain benign 04/18/2018 None Full Exam - General 1994 Lymphatic neck nodes Overall: posterior cervical chain benign 04/18/2018 None Full Exam - General 1994 Musculoskeletal spine, ribs and pelvis Overall: good posture 04/18/2018 None Full Exam - General 1994 Musculoskeletal head and neck Overall: head atraumatic 04/18/2018 None Full Exam - General 1994 Neurologic gait Overall: no ataxia, no unsteadiness 04/18/2018 None Full Exam - General 1994 Neurologic cranial nerves Overall: crainial nerves 2 - 12 grossly intact 04/18/2018 None Full Exam - General 1994 Psychiatric orientation/consciousness Overall: oriented to person, place and time 04/18/2018 None Full Exam - General 1994 Psychiatric mood and affect Overall: normal mood and affect 04/18/2018 None Full Exam - General 1994 Psychiatric appearance Overall: well-groomed, good eye contact 04/18/2018 None Full Exam - General 1994 Psychiatric speech Overall: normal quality, no aphasia 04/18/2018 None Full Exam - General 1994 Psychiatric speech Overall: normal quality, quantity, r ate 04/18/2018 None Full Exam - General 1994 Constitutional general appearance Development: well developed 01/22/2018 None Full Exam - General 1994 Constitutional general appearance Development: appears stated age 0401/22/2018 None Full Exam - General 1994 Constitutional general appearance Hygiene/Attention to Grooming: good hygiene 01/22/2018 None Full Exam - General 1994 Eyes pupils and irises Overall: pupils equal, round, reactive to light and accomodation 01/22/2018 None Full Exam - General 1994 Respiratory auscultation Overall: breath sounds clear bilaterally 01/22/2018 None Full Exam - General 1994 Respiratory respiratory effort/rhythm Overall: no retractions 01/22/2018 None Full Exam - General 1994 Respiratory respiratory effort/rhythm Overall: normal rate 01/22/2018 None Full Exam - General 1994 Cardiovascular extremities Overall: no clubbing 01/22/2018 None Full Exam - General 1994 Cardiovascular auscultation of heart Overall: regular rate 01/22/2018 None Full Exam - General 1994 Cardiovascular auscultation of heart Overall: normal heart sounds 01/22/2018 None Full Exam - General 1994 Musculoskeletal spine, ribs and pelvis Overall: good posture 01/22/2018 None Full Exam - General 1994 Musculoskeletal head and neck Overall: head atraumatic 01/22/2018 None Full Exam - General 1994 Neurologic gait Overall: no ataxia, no unsteadiness 01/22/2018 None Full Exam - General 1994 Psychiatric orientation/consciousness Overall: oriented to person, place and time 01/22/2018 None Full Exam - General 1994 Psychiatric mood and affect Overall: normal mood and affect 01/22/2018 None Full Exam - General 1994 Psychiatric appearance Overall: well-groomed, good eye contact 01/22/2018 None Full Exam - General 1994 Psychiatric speech Overall: normal quality, no aphasia 01/22/2018 None Full Exam - General 1994 Psychiatric speech Overall: normal quality, quantity, r ate 01/22/2018 None Full Exam - General 1994 Musculoskeletal upper extremity Palpation - shoulder: tenderness @ bicipital groove 01/22/2018 None Full Exam - General 1994 Constitutional general appearance Development: well developed 01/01/2018 None Full Exam - General 1994 Constitutional general appearance Development: appears stated age 0401/01/2018 None Full Exam - General 1994 Constitutional general appearance Hygiene/Attention to Grooming: good hygiene 01/01/2018 None Full Exam - General 1994 Eyes conjunctiva/eyelids Overall: conjunctiva clear 01/01/2018 None Full Exam - General 1994 Eyes conjunctiva/eyelids Overall: cornea clear 01/01/2018 None Full Exam - General 1994 Eyes conjunctiva/eyelids Overall: eyelids normal 01/01/2018 None Full Exam - General 1994 Eyes pupils and irises Overall: pupils equal, round, reactive to light and accomodation 01/01/2018 None Full Exam - General 1994 Ears/Nose/Throat otoscopic exam Overall: external auditory canals clear 01/01/2018 None Full Exam - General 1994 Ears/Nose/Throat otoscopic exam Overall: tympanic membranes clear 01/01/2018 None Full Exam - General 1994 Ears/Nose/Throat lips/teeth/gingiva Overall: benign lips 01/01/2018 None Full Exam - General 1994 Ears/Nose/Throat lips/teeth/gingiva Overall: normal dentition 01/01/2018 None Full Exam - General 1994 Ears/Nose/Throat oral cavity/pharynx/larynx Overall: oral mucosa clear 01/01/2018 None Full Exam - General 1994 Ears/Nose/Throat oral cavity/pharynx/larynx Overall: oropharyngeal mucosa clear 01/01/2018 None Full Exam - General 1994 Ears/Nose/Throat oral cavity/pharynx/larynx Overall: no masses 01/01/2018 None Full Exam - General 1994 Respiratory auscultation Overall: breath sounds clear bilaterally 01/01/2018 None Full Exam - General 1994 Respiratory respiratory effort/rhythm Overall: no retractions 01/01/2018 None Full Exam - General 1994 Respiratory respiratory effort/rhythm Overall: normal rate 01/01/2018 None Full Exam - General 1994 Cardiovascular extremities Overall: no clubbing 01/01/2018 None Full Exam - General 1994 Cardiovascular auscultation of heart Overall: regular rate 01/01/2018 None Full Exam - General 1994 Cardiovascular auscultation of heart Overall: normal heart sounds 01/01/2018 None Full Exam - General 1994 Abdomen abdominal exam Overall: no tenderness 01/01/2018 None Full Exam - General 1994 Abdomen abdominal exam Overall: normal bowel sounds 01/01/2018 None Full Exam - General 1994 Lymphatic neck nodes Overall: anterior cervical chain benign 01/01/2018 None Full Exam - General 1994 Lymphatic neck nodes Overall: posterior cervical chain benign 01/01/2018 None Full Exam - General 1994 Musculoskeletal digits and nails Deformities/Nodules: trigger finger/tendon nodule 01/01/2018 4th digit right hand Full Exam - General 1994 Musculoskeletal spine, ribs and pelvis Overall: good posture 01/01/2018 None Full Exam - General 1994 Musculoskeletal head and neck Overall: head atraumatic 01/01/2018 None Full Exam - General 1994 Neurologic gait Overall: no ataxia, no unsteadiness 01/01/2018 None Full Exam - General 1994 Neurologic cranial nerves Overall: crainial nerves 2 - 12 grossly intact 01/01/2018 None Full Exam - General 1994 Psychiatric orientation/consciousness Overall: oriented to person, place and time 01/01/2018 None Full Exam - General 1994 Psychiatric mood and affect Overall: normal mood and affect 01/01/2018 None Full Exam - General 1994 Psychiatric appearance Overall: well-groomed, good eye contact 01/01/2018 None Full Exam - General 1994 Psychiatric speech Overall: normal quality, no aphasia 01/01/2018 None Full Exam - General 1994 Psychiatric speech Overall: normal quality, quantity, r ate 01/01/2018 None Full Exam - General 1994 Constitutional general appearance Development: well developed 12/12/2017 None Full Exam - General 1994 Constitutional general appearance Development: appears stated age 0312/12/2017 None Full Exam - General 1994 Constitutional general appearance Hygiene/Attention to Grooming: good hygiene 12/12/2017 None Full Exam - General 1994 Eyes conjunctiva/eyelids Overall: conjunctiva clear 12/12/2017 None Full Exam - General 1994 Eyes conjunctiva/eyelids Overall: cornea clear 12/12/2017 None Full Exam - General 1994 Eyes conjunctiva/eyelids Overall: eyelids normal 12/12/2017 None Full Exam - General 1994 Eyes pupils and irises Overall: pupils equal, round, reactive to light and accomodation 12/12/2017 None Full Exam - General 1994 Ears/Nose/Throat lips/teeth/gingiva Overall: benign lips 12/12/2017 None Full Exam - General 1994 Ears/Nose/Throat lips/teeth/gingiva Overall: normal dentition 12/12/2017 None Full Exam - General 1994 Ears/Nose/Throat oral cavity/pharynx/larynx Overall: oral mucosa clear 12/12/2017 None Full Exam - General 1994 Ears/Nose/Throat oral cavity/pharynx/larynx Overall: oropharyngeal mucosa clear 12/12/2017 None Full Exam - General 1994 Ears/Nose/Throat oral cavity/pharynx/larynx Overall: no masses 12/12/2017 None Full Exam - General 1994 Respiratory auscultation Overall: breath sounds clear bilaterally 12/12/2017 None Full Exam - General 1994 Respiratory respiratory effort/rhythm Overall: no retractions 12/12/2017 None Full Exam - General 1994 Respiratory respiratory effort/rhythm Overall: normal rate 12/12/2017 None Full Exam - General 1994 Cardiovascular extremities Overall: no clubbing 12/12/2017 None Full Exam - General 1994 Cardiovascular auscultation of heart Overall: regular rate 12/12/2017 None Full Exam - General 1994 Cardiovascular auscultation of heart Overall: normal heart sounds 12/12/2017 None Full Exam - General 1994 Abdomen abdominal exam Overall: no tenderness 12/12/2017 None Full Exam - General 1994 Abdomen abdominal exam Overall: normal bowel sounds 12/12/2017 None Full Exam - General 1994 Lymphatic neck nodes Overall: anterior cervical chain benign 12/12/2017 None Full Exam - General 1994 Lymphatic neck nodes Overall: posterior cervical chain benign 12/12/2017 None Full Exam - General 1994 Musculoskeletal spine, ribs and pelvis Overall: good posture 12/12/2017 None Full Exam - General 1994 Musculoskeletal head and neck Overall: head atraumatic 12/12/2017 None Full Exam - General 1994 Neurologic gait Overall: no ataxia, no unsteadiness 12/12/2017 None Full Exam - General 1994 Neurologic cranial nerves Overall: crainial nerves 2 - 12 grossly intact 12/12/2017 None Full Exam - General 1994 Psychiatric orientation/consciousness Overall: oriented to person, place and time 12/12/2017 None Full Exam - General 1994 Psychiatric mood and affect Overall: normal mood and affect 12/12/2017 None Full Exam - General 1994 Psychiatric appearance Overall: well-groomed, good eye contact 12/12/2017 None Full Exam - General 1994 Psychiatric speech Overall: normal quality, no aphasia 12/12/2017 None Full Exam - General 1994 Psychiatric speech Overall: normal quality, quantity, r ate 12/12/2017 None Full Exam - General 1994 Ears/Nose/Throat otoscopic exam External auditory canal: complete cerumen impaction 12/12/2017 None Full Exam - General 1994 Ears/Nose/Throat otoscopic exam Tympanic membrane: not visualized until cerumen removed, TM pearly 12/12/2017 None Full Exam - General 1994 Ears/Nose/Throat external nose Mass: left 12/12/2017 None Full Exam - General 1994 Ears/Nose/Throat external nose Mass: soft 12/12/2017 None Full Exam - General 1994 Ears/Nose/Throat external nose Mass: nontender 12/12/2017 None Full Exam - General 1994 Ears/Nose/Throat external nose Mass: dorsum 12/12/2017 None Full Exam - General 1994 Constitutional general appearance Development: well developed 09/13/2017 None Full Exam - General 1994 Constitutional general appearance Development: appears stated age 1209/13/2017 None Full Exam - General 1994 Constitutional general appearance Hygiene/Attention to Grooming: good hygiene 09/13/2017 None Full Exam - General 1994 Eyes conjunctiva/eyelids Overall: conjunctiva clear 09/13/2017 None Full Exam - General 1994 Eyes conjunctiva/eyelids Overall: cornea clear 09/13/2017 None Full Exam - General 1994 Eyes conjunctiva/eyelids Overall: eyelids normal 09/13/2017 None Full Exam - General 1994 Eyes pupils and irises Overall: pupils equal, round, reactive to light and accomodation 09/13/2017 None Full Exam - General 1994 Ears/Nose/Throat otoscopic exam Overall: external auditory canals clear 09/13/2017 None Full Exam - General 1994 Ears/Nose/Throat otoscopic exam Overall: tympanic membranes clear 09/13/2017 None Full Exam - General 1994 Ears/Nose/Throat lips/teeth/gingiva Overall: benign lips 09/13/2017 None Full Exam - General 1994 Ears/Nose/Throat lips/teeth/gingiva Overall: normal dentition 09/13/2017 None Full Exam - General 1994 Ears/Nose/Throat oral cavity/pharynx/larynx Overall: oral mucosa clear 09/13/2017 None Full Exam - General 1994 Ears/Nose/Throat oral cavity/pharynx/larynx Overall: oropharyngeal mucosa clear 09/13/2017 None Full Exam - General 1994 Ears/Nose/Throat oral cavity/pharynx/larynx Overall: no masses 09/13/2017 None Full Exam - General 1994 Respiratory auscultation Overall: breath sounds clear bilaterally 09/13/2017 None Full Exam - General 1994 Respiratory respiratory effort/rhythm Overall: no retractions 09/13/2017 None Full Exam - General 1994 Respiratory respiratory effort/rhythm Overall: normal rate 09/13/2017 None Full Exam - General 1994 Cardiovascular extremities Overall: no clubbing 09/13/2017 None Full Exam - General 1994 Cardiovascular auscultation of heart Overall: regular rate 09/13/2017 None Full Exam - General 1994 Cardiovascular auscultation of heart Overall: normal heart sounds 09/13/2017 None Full Exam - General 1994 Abdomen abdominal exam Overall: no tenderness 09/13/2017 None Full Exam - General 1994 Abdomen abdominal exam Overall: normal bowel sounds 09/13/2017 None Full Exam - General 1994 Lymphatic neck nodes Overall: anterior cervical chain benign 09/13/2017 None Full Exam - General 1994 Lymphatic neck nodes Overall: posterior cervical chain benign 09/13/2017 None Full Exam - General 1994 Musculoskeletal spine, ribs and pelvis Overall: good posture 09/13/2017 None Full Exam - General 1994 Musculoskeletal head and neck Overall: head atraumatic 09/13/2017 None Full Exam - General 1994 Neurologic gait Overall: no ataxia, no unsteadiness 09/13/2017 None Full Exam - General 1994 Neurologic cranial nerves Overall: crainial nerves 2 - 12 grossly intact 09/13/2017 None Full Exam - General 1994 Psychiatric orientation/consciousness Overall: oriented to person, place and time 09/13/2017 None Full Exam - General 1994 Psychiatric mood and affect Overall: normal mood and affect 09/13/2017 None Full Exam - General 1994 Psychiatric appearance Overall: well-groomed, good eye contact 09/13/2017 None Full Exam - General 1994 Psychiatric speech Overall: normal quality, no aphasia 09/13/2017 None Full Exam - General 1994 Psychiatric speech Overall: normal quality, quantity, r ate 09/13/2017 None Full Exam - General 1994 Constitutional general appearance Development: well developed 06/21/2017 None Full Exam - General 1994 Constitutional general appearance Development: appears stated age 0906/21/2017 None Full Exam - General 1994 Constitutional general appearance Hygiene/Attention to Grooming: good hygiene 06/21/2017 None Full Exam - General 1994 Eyes conjunctiva/eyelids Overall: conjunctiva clear 06/21/2017 None Full Exam - General 1994 Eyes conjunctiva/eyelids Overall: cornea clear 06/21/2017 None Full Exam - General 1994 Eyes conjunctiva/eyelids Overall: eyelids normal 06/21/2017 None Full Exam - General 1994 Eyes pupils and irises Overall: pupils equal, round, reactive to light and accomodation 06/21/2017 None Full Exam - General 1994 Respiratory auscultation Overall: breath sounds clear bilaterally 06/21/2017 None Full Exam - General 1994 Respiratory respiratory effort/rhythm Overall: no retractions 06/21/2017 None Full Exam - General 1994 Respiratory respiratory effort/rhythm Overall: normal rate 06/21/2017 None Full Exam - General 1994 Cardiovascular extremities Overall: no clubbing 06/21/2017 None Full Exam - General 1994 Cardiovascular auscultation of heart Overall: regular rate 06/21/2017 None Full Exam - General 1994 Cardiovascular auscultation of heart Overall: normal heart sounds 06/21/2017 None Full Exam - General 1994 Abdomen abdominal exam Overall: no tenderness 06/21/2017 None Full Exam - General 1994 Abdomen abdominal exam Overall: normal bowel sounds 06/21/2017 None Full Exam - General 1994 Abdomen abdominal exam Skin: presence of a scar 06/21/2017 well healed abdominal inc ision site central abdomen Full Exam - General 1994 Lymphatic neck nodes Overall: anterior cervical chain benign 06/21/2017 None Full Exam - General 1994 Lymphatic neck nodes Overall: posterior cervical chain benign 06/21/2017 None Full Exam - General 1994 Psychiatric orientation/consciousness Overall: oriented to person, place and time 06/21/2017 None Full Exam - General 1994 Psychiatric mood and affect Overall: normal mood and affect 06/21/2017 None Full Exam - General 1994 Psychiatric appearance Overall: well-groomed, good eye contact 06/21/2017 None Full Exam - General 1994 Psychiatric speech Overall: normal quality, no aphasia 06/21/2017 None Full Exam - General 1994 Psychiatric speech Overall: normal quality, quantity, r ate 06/21/2017 None Full Exam - General 1994 Constitutional general appearance Development: well developed 05/25/2017 None Full Exam - General 1994 Constitutional general appearance Development: appears stated age 0805/25/2017 None Full Exam - General 1994 Constitutional general appearance Hygiene/Attention to Grooming: good hygiene 05/25/2017 None Full Exam - General 1994 Eyes conjunctiva/eyelids Overall: conjunctiva clear 05/25/2017 None Full Exam - General 1994 Eyes conjunctiva/eyelids Overall: cornea clear 05/25/2017 None Full Exam - General 1994 Eyes conjunctiva/eyelids Overall: eyelids normal 05/25/2017 None Full Exam - General 1994 Eyes pupils and irises Overall: pupils equal, round, reactive to light and accomodation 05/25/2017 None Full Exam - General 1994 Respiratory auscultation Overall: breath sounds clear bilaterally 05/25/2017 None Full Exam - General 1994 Respiratory respiratory effort/rhythm Overall: no retractions 05/25/2017 None Full Exam - General 1994 Respiratory respiratory effort/rhythm Overall: normal rate 05/25/2017 None Full Exam - General 1994 Cardiovascular extremities Overall: no clubbing 05/25/2017 None Full Exam - General 1994 Cardiovascular auscultation of heart Overall: regular rate 05/25/2017 None Full Exam - General 1994 Cardiovascular auscultation of heart Overall: normal heart sounds 05/25/2017 None Full Exam - General 1994 Abdomen abdominal exam Overall: no tenderness 05/25/2017 None Full Exam - General 1994 Abdomen abdominal exam Overall: normal bowel sounds 05/25/2017 None Full Exam - General 1994 Abdomen abdominal exam Skin: presence of a scar 05/25/2017 well healed abdominal inc ision site central abdomen Full Exam - General 1994 Lymphatic neck nodes Overall: anterior cervical chain benign 05/25/2017 None Full Exam - General 1994 Lymphatic neck nodes Overall: posterior cervical chain benign 05/25/2017 None Full Exam - General 1994 Psychiatric orientation/consciousness Overall: oriented to person, place and time 05/25/2017 None Full Exam - General 1994 Psychiatric mood and affect Overall: normal mood and affect 05/25/2017 None Full Exam - General 1994 Psychiatric appearance Overall: well-groomed, good eye contact 05/25/2017 None Full Exam - General 1994 Psychiatric speech Overall: normal quality, no aphasia 05/25/2017 None Full Exam - General 1994 Psychiatric speech Overall: normal quality, quantity, r ate 05/25/2017 None Full Exam - General 1994 Constitutional general appearance Development: well developed 05/16/2017 None Full Exam - General 1994 Constitutional general appearance Development: appears stated age 0805/16/2017 None Full Exam - General 1994 Constitutional general appearance Hygiene/Attention to Grooming: good hygiene 05/16/2017 None Full Exam - General 1994 Eyes conjunctiva/eyelids Overall: conjunctiva clear 05/16/2017 None Full Exam - General 1994 Eyes conjunctiva/eyelids Overall: cornea clear 05/16/2017 None Full Exam - General 1994 Eyes conjunctiva/eyelids Overall: eyelids normal 05/16/2017 None Full Exam - General 1994 Eyes pupils and irises Overall: pupils equal, round, reactive to light and accomodation 05/16/2017 None Full Exam - General 1994 Ears/Nose/Throat otoscopic exam Overall: external auditory canals clear 05/16/2017 None Full Exam - General 1994 Ears/Nose/Throat otoscopic exam Overall: tympanic membranes clear 05/16/2017 None Full Exam - General 1994 Ears/Nose/Throat lips/teeth/gingiva Overall: benign lips 05/16/2017 None Full Exam - General 1994 Ears/Nose/Throat lips/teeth/gingiva Overall: normal dentition 05/16/2017 None Full Exam - General 1994 Ears/Nose/Throat oral cavity/pharynx/larynx Overall: oral mucosa clear 05/16/2017 None Full Exam - General 1994 Ears/Nose/Throat oral cavity/pharynx/larynx Overall: oropharyngeal mucosa clear 05/16/2017 None Full Exam - General 1994 Ears/Nose/Throat oral cavity/pharynx/larynx Overall: no masses 05/16/2017 None Full Exam - General 1994 Respiratory auscultation Overall: breath sounds clear bilaterally 05/16/2017 None Full Exam - General 1994 Respiratory respiratory effort/rhythm Overall: no retractions 05/16/2017 None Full Exam - General 1994 Respiratory respiratory effort/rhythm Overall: normal rate 05/16/2017 None Full Exam - General 1994 Cardiovascular extremities Overall: no clubbing 05/16/2017 None Full Exam - General 1994 Cardiovascular auscultation of heart Overall: regular rate 05/16/2017 None Full Exam - General 1994 Cardiovascular auscultation of heart Overall: normal heart sounds 05/16/2017 None Full Exam - General 1994 Abdomen abdominal exam Overall: no tenderness 05/16/2017 None Full Exam - General 1994 Abdomen abdominal exam Overall: normal bowel sounds 05/16/2017 None Full Exam - General 1994 Abdomen abdominal exam Skin: presence of a scar 05/16/2017 well healed abdominal inc ision site central abdomen Full Exam - General 1994 Lymphatic neck nodes Overall: anterior cervical chain benign 05/16/2017 None Full Exam - General 1994 Lymphatic neck nodes Overall: posterior cervical chain benign 05/16/2017 None Full Exam - General 1994 Musculoskeletal spine, ribs and pelvis Overall: good posture 05/16/2017 None Full Exam - General 1994 Neurologic gait Overall: no ataxia, no unsteadiness 05/16/2017 None Full Exam - General 1994 Neurologic cranial nerves Overall: crainial nerves 2 - 12 grossly intact 05/16/2017 None Full Exam - General 1994 Psychiatric orientation/consciousness Overall: oriented to person, place and time 05/16/2017 None Full Exam - General 1994 Psychiatric mood and affect Overall: normal mood and affect 05/16/2017 None Full Exam - General 1994 Psychiatric appearance Overall: well-groomed, good eye contact 05/16/2017 None Full Exam - General 1994 Psychiatric speech Overall: normal quality, no aphasia 05/16/2017 None Full Exam - General 1994 Psychiatric speech Overall: normal quality, quantity, r ate 05/16/2017 None Full Exam - General 1994 Musculoskeletal lower extremity Overall: full strength in LLE 05/16/2017 None Full Exam - General 1994 Musculoskeletal lower extremity Overall: normal LLE bulk and tone 05/16/2017 bulk in left lower extrem ity decreased Full Exam - General 1994 Constitutional general appearance Development: well developed 02/15/2017 None Full Exam - General 1994 Constitutional general appearance Development: appears stated age 0502/15/2017 None Full Exam - General 1994 Constitutional general appearance Hygiene/Attention to Grooming: good hygiene 02/15/2017 None Full Exam - General 1994 Eyes conjunctiva/eyelids Overall: conjunctiva clear 02/15/2017 None Full Exam - General 1994 Eyes conjunctiva/eyelids Overall: cornea clear 02/15/2017 None Full Exam - General 1994 Eyes conjunctiva/eyelids Overall: eyelids normal 02/15/2017 None Full Exam - General 1994 Eyes pupils and irises Overall: pupils equal, round, reactive to light and accomodation 02/15/2017 None Full Exam - General 1994 Ears/Nose/Throat otoscopic exam Overall: external auditory canals clear 02/15/2017 None Full Exam - General 1994 Ears/Nose/Throat otoscopic exam Overall: tympanic membranes clear 02/15/2017 None Full Exam - General 1994 Ears/Nose/Throat lips/teeth/gingiva Overall: benign lips 02/15/2017 None Full Exam - General 1994 Ears/Nose/Throat lips/teeth/gingiva Overall: normal dentition 02/15/2017 None Full Exam - General 1994 Ears/Nose/Throat oral cavity/pharynx/larynx Overall: oral mucosa clear 02/15/2017 None Full Exam - General 1994 Ears/Nose/Throat oral cavity/pharynx/larynx Overall: oropharyngeal mucosa clear 02/15/2017 None Full Exam - General 1994 Ears/Nose/Throat oral cavity/pharynx/larynx Overall: no masses 02/15/2017 None Full Exam - General 1994 Respiratory auscultation Overall: breath sounds clear bilaterally 02/15/2017 None Full Exam - General 1994 Respiratory respiratory effort/rhythm Overall: no retractions 02/15/2017 None Full Exam - General 1994 Respiratory respiratory effort/rhythm Overall: normal rate 02/15/2017 None Full Exam - General 1994 Cardiovascular extremities Overall: no clubbing 02/15/2017 None Full Exam - General 1994 Cardiovascular auscultation of heart Overall: regular rate 02/15/2017 None Full Exam - General 1994 Cardiovascular auscultation of heart Overall: normal heart sounds 02/15/2017 None Full Exam - General 1994 Abdomen abdominal exam Overall: no tenderness 02/15/2017 None Full Exam - General 1994 Abdomen abdominal exam Overall: normal bowel sounds 02/15/2017 None Full Exam - General 1994 Lymphatic neck nodes Overall: anterior cervical chain benign 02/15/2017 None Full Exam - General 1994 Lymphatic neck nodes Overall: posterior cervical chain benign 02/15/2017 None Full Exam - General 1994 Musculoskeletal spine, ribs and pelvis Overall: good posture 02/15/2017 None Full Exam - General 1994 Musculoskeletal head and neck Overall: head atraumatic 02/15/2017 None Full Exam - General 1994 Neurologic gait Overall: no ataxia, no unsteadiness 02/15/2017 None Full Exam - General 1994 Neurologic cranial nerves Overall: crainial nerves 2 - 12 grossly intact 02/15/2017 None Full Exam - General 1994 Psychiatric orientation/consciousness Overall: oriented to person, place and time 02/15/2017 None Full Exam - General 1994 Psychiatric mood and affect Overall: normal mood and affect 02/15/2017 None Full Exam - General 1994 Psychiatric appearance Overall: well-groomed, good eye contact 02/15/2017 None Full Exam - General 1994 Psychiatric speech Overall: normal quality, no aphasia 02/15/2017 None Full Exam - General 1994 Psychiatric speech Overall: normal quality, quantity, r ate 02/15/2017 None Full Exam - General 1994 Musculoskeletal digits and nails Deformities/Nodules: trigger finger/tendon nodule 02/15/2017 4th digit right hand Full Exam - General 1994 Constitutional general appearance Development: well developed 11/22/2016 None Full Exam - General 1994 Constitutional general appearance Development: appears stated age 0211/22/2016 None Full Exam - General 1994 Constitutional general appearance Hygiene/Attention to Grooming: good hygiene 11/22/2016 None Full Exam - General 1994 Eyes conjunctiva/eyelids Overall: conjunctiva clear 11/22/2016 None Full Exam - General 1994 Eyes conjunctiva/eyelids Overall: cornea clear 11/22/2016 None Full Exam - General 1994 Eyes conjunctiva/eyelids Overall: eyelids normal 11/22/2016 None Full Exam - General 1994 Eyes pupils and irises Overall: pupils equal, round, reactive to light and accomodation 11/22/2016 None Full Exam - General 1994 Ears/Nose/Throat otoscopic exam Overall: external auditory canals clear 11/22/2016 None Full Exam - General 1994 Ears/Nose/Throat otoscopic exam Overall: tympanic membranes clear 11/22/2016 None Full Exam - General 1994 Ears/Nose/Throat lips/teeth/gingiva Overall: benign lips 11/22/2016 None Full Exam - General 1994 Ears/Nose/Throat lips/teeth/gingiva Overall: normal dentition 11/22/2016 None Full Exam - General 1994 Ears/Nose/Throat oral cavity/pharynx/larynx Overall: oral mucosa clear 11/22/2016 None Full Exam - General 1994 Ears/Nose/Throat oral cavity/pharynx/larynx Overall: oropharyngeal mucosa clear 11/22/2016 None Full Exam - General 1994 Ears/Nose/Throat oral cavity/pharynx/larynx Overall: no masses 11/22/2016 None Full Exam - General 1994 Respiratory auscultation Overall: breath sounds clear bilaterally 11/22/2016 None Full Exam - General 1994 Respiratory respiratory effort/rhythm Overall: no retractions 11/22/2016 None Full Exam - General 1994 Respiratory respiratory effort/rhythm Overall: normal rate 11/22/2016 None Full Exam - General 1994 Cardiovascular extremities Overall: no clubbing 11/22/2016 None Full Exam - General 1994 Cardiovascular auscultation of heart Overall: regular rate 11/22/2016 None Full Exam - General 1994 Cardiovascular auscultation of heart Overall: normal heart sounds 11/22/2016 None Full Exam - General 1994 Abdomen abdominal exam Overall: no tenderness 11/22/2016 None Full Exam - General 1994 Abdomen abdominal exam Overall: normal bowel sounds 11/22/2016 None Full Exam - General 1994 Lymphatic neck nodes Overall: anterior cervical chain benign 11/22/2016 None Full Exam - General 1994 Lymphatic neck nodes Overall: posterior cervical chain benign 11/22/2016 None Full Exam - General 1994 Musculoskeletal spine, ribs and pelvis Overall: good posture 11/22/2016 None Full Exam - General 1994 Musculoskeletal head and neck Overall: head atraumatic 11/22/2016 None Full Exam - General 1994 Neurologic gait Overall: no ataxia, no unsteadiness 11/22/2016 None Full Exam - General 1994 Neurologic cranial nerves Overall: crainial nerves 2 - 12 grossly intact 11/22/2016 None Full Exam - General 1994 Psychiatric orientation/consciousness Overall: oriented to person, place and time 11/22/2016 None Full Exam - General 1994 Psychiatric mood and affect Overall: normal mood and affect 11/22/2016 None Full Exam - General 1994 Psychiatric appearance Overall: well-groomed, good eye contact 11/22/2016 None Full Exam - General 1994 Psychiatric speech Overall: normal quality, no aphasia 11/22/2016 None Full Exam - General 1994 Psychiatric speech Overall: normal quality, quantity, r ate 11/22/2016 None Full Exam - General 1994 Abdomen abdominal exam Skin: presence of a scar 11/22/2016 well healed abdominal inc ision site central abdomen Full Exam - Dermatology Constitutional general appearance Overall: well nourished 09/15/2016 None Full Exam - Dermatology Constitutional general appearance Overall: well developed 09/15/2016 None Full Exam - Dermatology Constitutional general appearance Overall: in no acute distress 09/15/2016 None Full Exam - Dermatology Eyes conjunctiva/eyelids Overall: clear conjunctiva bilaterally 09/15/2016 None Full Exam - Dermatology Eyes conjunctiva/eyelids Overall: normal eyelids 09/15/2016 None Full Exam - Dermatology Ears/Nose/Throat lips/teeth/gingiva Overall: benign lips 09/15/2016 None Full Exam - Dermatology Ears/Nose/Throat oropharynx Overall: clear oral mucosa 09/15/2016 None Full Exam - Dermatology Integument insp & palp - head/face Location: on the left side of the nose 09/15/2016 None Full Exam - Dermatology Integument insp & palp - head/face Appearance: thick 09/15/2016 None Full Exam - Dermatology Integument insp & palp - head/face Appearance: flat-topped 09/15/2016 None Full Exam - Dermatology Psychiatric orientation Overall: oriented to person, place and time 09/15/2016 None Full Exam - Dermatology Psychiatric mood and affect Overall: normal mood and affect 09/15/2016 None Full Exam - General 1994 Constitutional general appearance Development: well developed 09/07/2016 None Full Exam - General 1994 Constitutional general appearance Development: appears stated age 1209/07/2016 None Full Exam - General 1994 Constitutional general appearance Hygiene/Attention to Grooming: good hygiene 09/07/2016 None Full Exam - General 1994 Eyes conjunctiva/eyelids Overall: conjunctiva clear 09/07/2016 None Full Exam - General 1994 Eyes conjunctiva/eyelids Overall: cornea clear 09/07/2016 None Full Exam - General 1994 Eyes conjunctiva/eyelids Overall: eyelids normal 09/07/2016 None Full Exam - General 1994 Eyes pupils and irises Overall: pupils equal, round, reactive to light and accomodation 09/07/2016 None Full Exam - General 1994 Ears/Nose/Throat otoscopic exam Overall: external auditory canals clear 09/07/2016 None Full Exam - General 1994 Ears/Nose/Throat otoscopic exam Overall: tympanic membranes clear 09/07/2016 None Full Exam - General 1994 Ears/Nose/Throat lips/teeth/gingiva Overall: benign lips 09/07/2016 None Full Exam - General 1994 Ears/Nose/Throat lips/teeth/gingiva Overall: normal dentition 09/07/2016 None Full Exam - General 1994 Ears/Nose/Throat oral cavity/pharynx/larynx Overall: oral mucosa clear 09/07/2016 None Full Exam - General 1994 Ears/Nose/Throat oral cavity/pharynx/larynx Overall: oropharyngeal mucosa clear 09/07/2016 None Full Exam - General 1994 Ears/Nose/Throat oral cavity/pharynx/larynx Overall: no masses 09/07/2016 None Full Exam - General 1994 Respiratory auscultation Overall: breath sounds clear bilaterally 09/07/2016 None Full Exam - General 1994 Respiratory respiratory effort/rhythm Overall: no retractions 09/07/2016 None Full Exam - General 1994 Respiratory respiratory effort/rhythm Overall: normal rate 09/07/2016 None Full Exam - General 1994 Cardiovascular extremities Overall: no clubbing 09/07/2016 None Full Exam - General 1994 Cardiovascular auscultation of heart Overall: regular rate 09/07/2016 None Full Exam - General 1994 Cardiovascular auscultation of heart Overall: normal heart sounds 09/07/2016 None Full Exam - General 1994 Abdomen abdominal exam Overall: no tenderness 09/07/2016 None Full Exam - General 1994 Abdomen abdominal exam Overall: normal bowel sounds 09/07/2016 None Full Exam - General 1994 Lymphatic neck nodes Overall: anterior cervical chain benign 09/07/2016 None Full Exam - General 1994 Lymphatic neck nodes Overall: posterior cervical chain benign 09/07/2016 None Full Exam - General 1994 Musculoskeletal spine, ribs and pelvis Overall: good posture 09/07/2016 None Full Exam - General 1994 Musculoskeletal head and neck Overall: head atraumatic 09/07/2016 None Full Exam - General 1994 Neurologic gait Overall: no ataxia, no unsteadiness 09/07/2016 None Full Exam - General 1994 Neurologic cranial nerves Overall: crainial nerves 2 - 12 grossly intact 09/07/2016 None Full Exam - General 1994 Psychiatric orientation/consciousness Overall: oriented to person, place and time 09/07/2016 None Full Exam - General 1994 Psychiatric mood and affect Overall: normal mood and affect 09/07/2016 None Full Exam - General 1994 Psychiatric appearance Overall: well-groomed, good eye contact 09/07/2016 None Full Exam - General 1994 Psychiatric speech Overall: normal quality, no aphasia 09/07/2016 None Full Exam - General 1994 Psychiatric speech Overall: normal quality, quantity, r ate 09/07/2016 None Full Exam - General 1994 Constitutional general appearance Development: well developed 07/06/2016 None Full Exam - General 1994 Constitutional general appearance Development: appears stated age 1007/06/2016 None Full Exam - General 1994 Constitutional general appearance Hygiene/Attention to Grooming: good hygiene 07/06/2016 None Full Exam - General 1994 Eyes conjunctiva/eyelids Overall: conjunctiva clear 07/06/2016 None Full Exam - General 1994 Eyes conjunctiva/eyelids Overall: cornea clear 07/06/2016 None Full Exam - General 1994 Eyes conjunctiva/eyelids Overall: eyelids normal 07/06/2016 None Full Exam - General 1994 Eyes pupils and irises Overall: pupils equal, round, reactive to light and accomodation 07/06/2016 None Full Exam - General 1994 Ears/Nose/Throat otoscopic exam Overall: external auditory canals clear 07/06/2016 None Full Exam - General 1994 Ears/Nose/Throat otoscopic exam Overall: tympanic membranes clear 07/06/2016 None Full Exam - General 1994 Ears/Nose/Throat lips/teeth/gingiva Overall: benign lips 07/06/2016 None Full Exam - General 1994 Ears/Nose/Throat lips/teeth/gingiva Overall: normal dentition 07/06/2016 None Full Exam - General 1994 Ears/Nose/Throat oral cavity/pharynx/larynx Overall: oral mucosa clear 07/06/2016 None Full Exam - General 1994 Ears/Nose/Throat oral cavity/pharynx/larynx Overall: oropharyngeal mucosa clear 07/06/2016 None Full Exam - General 1994 Ears/Nose/Throat oral cavity/pharynx/larynx Overall: no masses 07/06/2016 None Full Exam - General 1994 Respiratory auscultation Overall: breath sounds clear bilaterally 07/06/2016 None Full Exam - General 1994 Respiratory respiratory effort/rhythm Overall: no retractions 07/06/2016 None Full Exam - General 1994 Respiratory respiratory effort/rhythm Overall: normal rate 07/06/2016 None Full Exam - General 1994 Cardiovascular extremities Overall: no clubbing 07/06/2016 None Full Exam - General 1994 Cardiovascular auscultation of heart Overall: regular rate 07/06/2016 None Full Exam - General 1994 Cardiovascular auscultation of heart Overall: normal heart sounds 07/06/2016 None Full Exam - General 1994 Abdomen abdominal exam Overall: no tenderness 07/06/2016 None Full Exam - General 1994 Abdomen abdominal exam Overall: normal bowel sounds 07/06/2016 None Full Exam - General 1994 Lymphatic neck nodes Overall: anterior cervical chain benign 07/06/2016 None Full Exam - General 1994 Lymphatic neck nodes Overall: posterior cervical chain benign 07/06/2016 None Full Exam - General 1994 Musculoskeletal spine, ribs and pelvis Overall: good posture 07/06/2016 None Full Exam - General 1994 Musculoskeletal head and neck Overall: head atraumatic 07/06/2016 None Full Exam - General 1994 Neurologic gait Overall: no ataxia, no unsteadiness 07/06/2016 None Full Exam - General 1994 Neurologic cranial nerves Overall: crainial nerves 2 - 12 grossly intact 07/06/2016 None Full Exam - General 1994 Psychiatric orientation/consciousness Overall: oriented to person, place and time 07/06/2016 None Full Exam - General 1994 Psychiatric mood and affect Overall: normal mood and affect 07/06/2016 None Full Exam - General 1994 Psychiatric appearance Overall: well-groomed, good eye contact 07/06/2016 None Full Exam - General 1994 Psychiatric speech Overall: normal quality, no aphasia 07/06/2016 None Full Exam - General 1994 Psychiatric speech Overall: normal quality, quantity, r ate 07/06/2016 None Full Exam - General 1994 Constitutional general appearance Development: well developed 04/06/2016 None Full Exam - General 1994 Constitutional general appearance Development: appears stated age 0704/06/2016 None Full Exam - General 1994 Constitutional general appearance Hygiene/Attention to Grooming: good hygiene 04/06/2016 None Full Exam - General 1994 Eyes conjunctiva/eyelids Overall: conjunctiva clear 04/06/2016 None Full Exam - General 1994 Eyes conjunctiva/eyelids Overall: cornea clear 04/06/2016 None Full Exam - General 1994 Eyes conjunctiva/eyelids Overall: eyelids normal 04/06/2016 None Full Exam - General 1994 Eyes pupils and irises Overall: pupils equal, round, reactive to light and accomodation 04/06/2016 None Full Exam - General 1994 Ears/Nose/Throat otoscopic exam Overall: external auditory canals clear 04/06/2016 None Full Exam - General 1994 Ears/Nose/Throat otoscopic exam Overall: tympanic membranes clear 04/06/2016 None Full Exam - General 1994 Ears/Nose/Throat lips/teeth/gingiva Overall: benign lips 04/06/2016 None Full Exam - General 1994 Ears/Nose/Throat lips/teeth/gingiva Overall: normal dentition 04/06/2016 None Full Exam - General 1994 Ears/Nose/Throat oral cavity/pharynx/larynx Overall: oral mucosa clear 04/06/2016 None Full Exam - General 1994 Ears/Nose/Throat oral cavity/pharynx/larynx Overall: oropharyngeal mucosa clear 04/06/2016 None Full Exam - General 1994 Ears/Nose/Throat oral cavity/pharynx/larynx Overall: no masses 04/06/2016 None Full Exam - General 1994 Respiratory auscultation Overall: breath sounds clear bilaterally 04/06/2016 None Full Exam - General 1994 Respiratory respiratory effort/rhythm Overall: no retractions 04/06/2016 None Full Exam - General 1994 Respiratory respiratory effort/rhythm Overall: normal rate 04/06/2016 None Full Exam - General 1994 Cardiovascular extremities Overall: no clubbing 04/06/2016 None Full Exam - General 1994 Cardiovascular auscultation of heart Overall: regular rate 04/06/2016 None Full Exam - General 1994 Cardiovascular auscultation of heart Overall: normal heart sounds 04/06/2016 None Full Exam - General 1994 Abdomen abdominal exam Overall: no tenderness 04/06/2016 None Full Exam - General 1994 Abdomen abdominal exam Overall: normal bowel sounds 04/06/2016 None Full Exam - General 1994 Lymphatic neck nodes Overall: anterior cervical chain benign 04/06/2016 None Full Exam - General 1994 Lymphatic neck nodes Overall: posterior cervical chain benign 04/06/2016 None Full Exam - General 1994 Musculoskeletal spine, ribs and pelvis Overall: good posture 04/06/2016 None Full Exam - General 1994 Musculoskeletal head and neck Overall: head atraumatic 04/06/2016 None Full Exam - General 1994 Neurologic gait Overall: no ataxia, no unsteadiness 04/06/2016 None Full Exam - General 1994 Neurologic cranial nerves Overall: crainial nerves 2 - 12 grossly intact 04/06/2016 None Full Exam - General 1994 Psychiatric orientation/consciousness Overall: oriented to person, place and time 04/06/2016 None Full Exam - General 1994 Psychiatric mood and affect Overall: normal mood and affect 04/06/2016 None Full Exam - General 1994 Psychiatric appearance Overall: well-groomed, good eye contact 04/06/2016 None Full Exam - General 1994 Psychiatric speech Overall: normal quality, no aphasia 04/06/2016 None Full Exam - General 1994 Psychiatric speech Overall: normal quality, quantity, r ate 04/06/2016 None Full Exam - General 1994 Constitutional general appearance Development: well developed 01/06/2016 None Full Exam - General 1994 Constitutional general appearance Development: appears stated age 0401/06/2016 None Full Exam - General 1994 Constitutional general appearance Hygiene/Attention to Grooming: good hygiene 01/06/2016 None Full Exam - General 1994 Eyes conjunctiva/eyelids Overall: conjunctiva clear 01/06/2016 None Full Exam - General 1994 Eyes conjunctiva/eyelids Overall: cornea clear 01/06/2016 None Full Exam - General 1994 Eyes conjunctiva/eyelids Overall: eyelids normal 01/06/2016 None Full Exam - General 1994 Eyes pupils and irises Overall: pupils equal, round, reactive to light and accomodation 01/06/2016 None Full Exam - General 1994 Ears/Nose/Throat otoscopic exam Overall: external auditory canals clear 01/06/2016 None Full Exam - General 1994 Ears/Nose/Throat otoscopic exam Overall: tympanic membranes clear 01/06/2016 None Full Exam - General 1994 Ears/Nose/Throat lips/teeth/gingiva Overall: benign lips 01/06/2016 None Full Exam - General 1994 Ears/Nose/Throat lips/teeth/gingiva Overall: normal dentition 01/06/2016 None Full Exam - General 1994 Ears/Nose/Throat oral cavity/pharynx/larynx Overall: oral mucosa clear 01/06/2016 None Full Exam - General 1994 Ears/Nose/Throat oral cavity/pharynx/larynx Overall: oropharyngeal mucosa clear 01/06/2016 None Full Exam - General 1994 Ears/Nose/Throat oral cavity/pharynx/larynx Overall: no masses 01/06/2016 None Full Exam - General 1994 Respiratory auscultation Overall: breath sounds clear bilaterally 01/06/2016 None Full Exam - General 1994 Respiratory respiratory effort/rhythm Overall: no retractions 01/06/2016 None Full Exam - General 1994 Respiratory respiratory effort/rhythm Overall: normal rate 01/06/2016 None Full Exam - General 1994 Cardiovascular extremities Overall: no clubbing 01/06/2016 None Full Exam - General 1994 Cardiovascular auscultation of heart Overall: regular rate 01/06/2016 None Full Exam - General 1994 Cardiovascular auscultation of heart Overall: normal heart sounds 01/06/2016 None Full Exam - General 1994 Abdomen abdominal exam Overall: no tenderness 01/06/2016 None Full Exam - General 1994 Abdomen abdominal exam Overall: normal bowel sounds 01/06/2016 None Full Exam - General 1994 Lymphatic neck nodes Overall: anterior cervical chain benign 01/06/2016 None Full Exam - General 1994 Lymphatic neck nodes Overall: posterior cervical chain benign 01/06/2016 None Full Exam - General 1994 Musculoskeletal spine, ribs and pelvis Overall: good posture 01/06/2016 None Full Exam - General 1994 Musculoskeletal head and neck Overall: head atraumatic 01/06/2016 None Full Exam - General 1994 Neurologic cranial nerves Overall: crainial nerves 2 - 12 grossly intact 01/06/2016 None Full Exam - General 1994 Psychiatric orientation/consciousness Overall: oriented to person, place and time 01/06/2016 None Full Exam - General 1994 Psychiatric mood and affect Overall: normal mood and affect 01/06/2016 None Full Exam - General 1994 Neurologic gait Overall: no ataxia, no unsteadiness 01/06/2016 None Full Exam - General 1994 Psychiatric appearance Overall: well-groomed, good eye contact 01/06/2016 None Full Exam - General 1994 Psychiatric speech Overall: normal quality, no aphasia 01/06/2016 None Full Exam - General 1994 Psychiatric speech Overall: normal quality, quantity, r ate 01/06/2016 None Full Exam - General 1994 Constitutional general appearance Development: well developed 09/02/2015 None Full Exam - General 1994 Constitutional general appearance Development: appears stated age 1209/02/2015 None Full Exam - General 1994 Constitutional general appearance Hygiene/Attention to Grooming: good hygiene 09/02/2015 None Full Exam - General 1994 Eyes conjunctiva/eyelids Overall: conjunctiva clear 09/02/2015 None Full Exam - General 1994 Eyes conjunctiva/eyelids Overall: cornea clear 09/02/2015 None Full Exam - General 1994 Eyes conjunctiva/eyelids Overall: eyelids normal 09/02/2015 None Full Exam - General 1994 Eyes pupils and irises Overall: pupils equal, round, reactive to light and accomodation 09/02/2015 None Full Exam - General 1994 Ears/Nose/Throat otoscopic exam Overall: external auditory canals clear 09/02/2015 None Full Exam - General 1994 Ears/Nose/Throat otoscopic exam Overall: tympanic membranes clear 09/02/2015 None Full Exam - General 1994 Ears/Nose/Throat lips/teeth/gingiva Overall: benign lips 09/02/2015 None Full Exam - General 1994 Ears/Nose/Throat lips/teeth/gingiva Overall: normal dentition 09/02/2015 None Full Exam - General 1994 Ears/Nose/Throat oral cavity/pharynx/larynx Overall: oral mucosa clear 09/02/2015 None Full Exam - General 1994 Ears/Nose/Throat oral cavity/pharynx/larynx Overall: oropharyngeal mucosa clear 09/02/2015 None Full Exam - General 1994 Ears/Nose/Throat oral cavity/pharynx/larynx Overall: hypopharynx benign 09/02/2015 None Full Exam - General 1994 Ears/Nose/Throat oral cavity/pharynx/larynx Overall: no masses 09/02/2015 None Full Exam - General 1994 Respiratory auscultation Overall: breath sounds clear bilaterally 09/02/2015 None Full Exam - General 1994 Respiratory respiratory effort/rhythm Overall: no retractions 09/02/2015 None Full Exam - General 1994 Respiratory respiratory effort/rhythm Overall: normal rate 09/02/2015 None Full Exam - General 1994 Cardiovascular extremities Overall: no clubbing 09/02/2015 None Full Exam - General 1994 Cardiovascular auscultation of heart Overall: regular rate 09/02/2015 None Full Exam - General 1994 Cardiovascular auscultation of heart Overall: normal heart sounds 09/02/2015 None Full Exam - General 1994 Abdomen abdominal exam Overall: no tenderness 09/02/2015 None Full Exam - General 1994 Abdomen abdominal exam Overall: normal bowel sounds 09/02/2015 None Full Exam - General 1994 Lymphatic neck nodes Overall: anterior cervical chain benign 09/02/2015 None Full Exam - General 1994 Lymphatic neck nodes Overall: posterior cervical chain benign 09/02/2015 None Full Exam - General 1994 Musculoskeletal spine, ribs and pelvis Overall: spine benign 09/02/2015 None Full Exam - General 1994 Musculoskeletal spine, ribs and pelvis Overall: sacroiliac joint benign 09/02/2015 None Full Exam - General 1994 Musculoskeletal spine, ribs and pelvis Overall: good posture 09/02/2015 None Full Exam - General 1994 Musculoskeletal head and neck Overall: head atraumatic 09/02/2015 None Full Exam - General 1994 Musculoskeletal head and neck Overall: cervical spine benign 09/02/2015 None Full Exam - General 1994 Integument inspection of skin Overall: few scattered moles, no gross abnormalities 09/02/2015 None Full Exam - General 1994 Neurologic deep tendon reflexes Overall: deep tendon reflexes intact 09/02/2015 None Full Exam - General 1994 Neurologic cranial nerves Overall: crainial nerves 2 - 12 grossly intact 09/02/2015 None Full Exam - General 1994 Psychiatric orientation/consciousness Overall: oriented to person, place and time 09/02/2015 None Full Exam - General 1994 Psychiatric mood and affect Overall: normal mood and affect 09/02/2015 None Full Exam - General 1994 Constitutional general appearance Development: well developed 06/15/2015 None Full Exam - General 1994 Constitutional general appearance Development: appears stated age 0906/15/2015 None Full Exam - General 1994 Constitutional general appearance Hygiene/Attention to Grooming: good hygiene 06/15/2015 None Full Exam - General 1994 Eyes conjunctiva/eyelids Overall: conjunctiva clear 06/15/2015 None Full Exam - General 1994 Eyes conjunctiva/eyelids Overall: cornea clear 06/15/2015 None Full Exam - General 1994 Eyes conjunctiva/eyelids Overall: eyelids normal 06/15/2015 None Full Exam - General 1994 Eyes pupils and irises Overall: pupils equal, round, reactive to light and accomodation 06/15/2015 None Full Exam - General 1994 Ears/Nose/Throat otoscopic exam Overall: external auditory canals clear 06/15/2015 None Full Exam - General 1994 Ears/Nose/Throat otoscopic exam Overall: tympanic membranes clear 06/15/2015 None Full Exam - General 1994 Ears/Nose/Throat lips/teeth/gingiva Overall: benign lips 06/15/2015 None Full Exam - General 1994 Ears/Nose/Throat lips/teeth/gingiva Overall: normal dentition 06/15/2015 None Full Exam - General 1994 Ears/Nose/Throat oral cavity/pharynx/larynx Overall: oral mucosa clear 06/15/2015 None Full Exam - General 1994 Ears/Nose/Throat oral cavity/pharynx/larynx Overall: oropharyngeal mucosa clear 06/15/2015 None Full Exam - General 1994 Ears/Nose/Throat oral cavity/pharynx/larynx Overall: hypopharynx benign 06/15/2015 None Full Exam - General 1994 Ears/Nose/Throat oral cavity/pharynx/larynx Overall: no masses 06/15/2015 None Full Exam - General 1994 Respiratory auscultation Overall: breath sounds clear bilaterally 06/15/2015 None Full Exam - General 1994 Respiratory respiratory effort/rhythm Overall: no retractions 06/15/2015 None Full Exam - General 1994 Respiratory respiratory effort/rhythm Overall: normal rate 06/15/2015 None Full Exam - General 1994 Cardiovascular extremities Overall: no clubbing 06/15/2015 None Full Exam - General 1994 Cardiovascular auscultation of heart Overall: regular rate 06/15/2015 None Full Exam - General 1994 Cardiovascular auscultation of heart Overall: normal heart sounds 06/15/2015 None Full Exam - General 1994 Abdomen abdominal exam Overall: no tenderness 06/15/2015 None Full Exam - General 1994 Abdomen abdominal exam Overall: normal bowel sounds 06/15/2015 None Full Exam - General 1994 Lymphatic neck nodes Overall: anterior cervical chain benign 06/15/2015 None Full Exam - General 1994 Lymphatic neck nodes Overall: posterior cervical chain benign 06/15/2015 None Full Exam - General 1994 Musculoskeletal spine, ribs and pelvis Overall: spine benign 06/15/2015 None Full Exam - General 1994 Musculoskeletal spine, ribs and pelvis Overall: sacroiliac joint benign 06/15/2015 None Full Exam - General 1994 Musculoskeletal spine, ribs and pelvis Overall: good posture 06/15/2015 None Full Exam - General 1994 Musculoskeletal head and neck Overall: head atraumatic 06/15/2015 None Full Exam - General 1994 Musculoskeletal head and neck Overall: cervical spine benign 06/15/2015 None Full Exam - General 1994 Integument inspection of skin Overall: few scattered moles, no gross abnormalities 06/15/2015 None Full Exam - General 1994 Neurologic deep tendon reflexes Overall: deep tendon reflexes intact 06/15/2015 None Full Exam - General 1994 Neurologic cranial nerves Overall: crainial nerves 2 - 12 grossly intact 06/15/2015 None Full Exam - General 1994 Psychiatric orientation/consciousness Overall: oriented to person, place and time 06/15/2015 None Full Exam - General 1994 Psychiatric mood and affect Overall: normal mood and affect 06/15/2015 None Full Exam - General 1994 Musculoskeletal upper extremity Palpation - wrist: positive Phalen's test 06/15/2015 None Full Exam - General 1994 Musculoskeletal digits and nails Deformities/Nodules: heberden's node 06/15/2015 None Full Exam - General 1994 Musculoskeletal digits and nails Deformities/Nodules: lily's node 06/15/2015 None Full Exam - General 1994 Constitutional general appearance Development: well developed 03/04/2015 None Full Exam - General 1994 Constitutional general appearance Development: appears stated age 0603/04/2015 None Full Exam - General 1994 Constitutional general appearance Hygiene/Attention to Grooming: good hygiene 03/04/2015 None Full Exam - General 1994 Eyes conjunctiva/eyelids Overall: conjunctiva clear 03/04/2015 None Full Exam - General 1994 Eyes conjunctiva/eyelids Overall: cornea clear 03/04/2015 None Full Exam - General 1994 Eyes conjunctiva/eyelids Overall: eyelids normal 03/04/2015 None Full Exam - General 1994 Eyes pupils and irises Overall: pupils equal, round, reactive to light and accomodation 03/04/2015 None Full Exam - General 1994 Ears/Nose/Throat otoscopic exam Overall: external auditory canals clear 03/04/2015 None Full Exam - General 1994 Ears/Nose/Throat otoscopic exam Overall: tympanic membranes clear 03/04/2015 None Full Exam - General 1994 Ears/Nose/Throat lips/teeth/gingiva Overall: benign lips 03/04/2015 None Full Exam - General 1994 Ears/Nose/Throat lips/teeth/gingiva Overall: normal dentition 03/04/2015 None Full Exam - General 1994 Ears/Nose/Throat oral cavity/pharynx/larynx Overall: oral mucosa clear 03/04/2015 None Full Exam - General 1994 Ears/Nose/Throat oral cavity/pharynx/larynx Overall: oropharyngeal mucosa clear 03/04/2015 None Full Exam - General 1994 Ears/Nose/Throat oral cavity/pharynx/larynx Overall: hypopharynx benign 03/04/2015 None Full Exam - General 1994 Ears/Nose/Throat oral cavity/pharynx/larynx Overall: no masses 03/04/2015 None Full Exam - General 1994 Respiratory auscultation Overall: breath sounds clear bilaterally 03/04/2015 None Full Exam - General 1994 Respiratory respiratory effort/rhythm Overall: no retractions 03/04/2015 None Full Exam - General 1994 Respiratory respiratory effort/rhythm Overall: normal rate 03/04/2015 None Full Exam - General 1994 Cardiovascular extremities Overall: no clubbing 03/04/2015 None Full Exam - General 1994 Cardiovascular auscultation of heart Overall: regular rate 03/04/2015 None Full Exam - General 1994 Cardiovascular auscultation of heart Overall: normal heart sounds 03/04/2015 None Full Exam - General 1994 Abdomen abdominal exam Overall: no tenderness 03/04/2015 None Full Exam - General 1994 Abdomen abdominal exam Overall: normal bowel sounds 03/04/2015 None Full Exam - General 1994 Lymphatic neck nodes Overall: anterior cervical chain benign 03/04/2015 None Full Exam - General 1994 Lymphatic neck nodes Overall: posterior cervical chain benign 03/04/2015 None Full Exam - General 1994 Musculoskeletal spine, ribs and pelvis Overall: spine benign 03/04/2015 None Full Exam - General 1994 Musculoskeletal spine, ribs and pelvis Overall: sacroiliac joint benign 03/04/2015 None Full Exam - General 1994 Musculoskeletal spine, ribs and pelvis Overall: good posture 03/04/2015 None Full Exam - General 1994 Musculoskeletal head and neck Overall: head atraumatic 03/04/2015 None Full Exam - General 1994 Musculoskeletal head and neck Overall: cervical spine benign 03/04/2015 None Full Exam - General 1994 Integument inspection of skin Overall: few scattered moles, no gross abnormalities 03/04/2015 None Full Exam - General 1994 Neurologic deep tendon reflexes Overall: deep tendon reflexes intact 03/04/2015 None Full Exam - General 1994 Neurologic cranial nerves Overall: crainial nerves 2 - 12 grossly intact 03/04/2015 None Full Exam - General 1994 Psychiatric orientation/consciousness Overall: oriented to person, place and time 03/04/2015 None Full Exam - General 1994 Psychiatric mood and affect Overall: normal mood and affect 03/04/2015 None Procedures Procedure Codes Date TRIM SKIN LESION CPT-4: 14960 01/09/2019 TRIM SKIN LESIONS 2 TO 4 CPT-4: 52392 01/09/2019 ADMIN INFLUENZA VIRU S VAC CPT-4: G0008 06/21/2018 FLU VACC PRSV FREE I NC ANTIG CPT-4: 88310 06/21/2018 ADMIN INFLUENZA VIRU S VAC CPT-4: G0008 06/21/2017 FLU VACC PRSV FREE I NC ANTIG CPT-4: 89551 06/21/2017 ADMIN INFLUENZA VIRU S VAC CPT-4: G0008 06/24/2016 FLU VACC 4 CRISTINE 3 YRS PLUS IM Formatting Model/CDA Sections, Assigned to/Carmen Solis SNOMED CT: 81792499 CPT-4: 78912Nddrfjf 06/24/2016 ADMIN INFLUENZA VIRU S VAC CPT-4: G0008 06/19/2015 FLU VACC 4 CRISTINE 3 YRS PLUS IM Formatting Model/CDA Sections, Assigned to/Carmen Solis SNOMED CT: 51966952 CPT-4: 05336Queuojk 06/19/2015 Vital Signs Date Vital 05/01/2019 Blood Pressure 1: 136/52 Code: 8480-6 BMI: 16.2 Code: 05558-8 Heart Rate 1: 70 bpm Height: 5'2" SpO2: 98% Weight: 90 lbs 01/09/2019 Blood Pressure 1: 132/62 Code: 8480-6 BMI: 15.8 Code: 93467-8 Heart Rate 1: 69 bpm Height: 5'2" SpO2: 98% Weight: 88 lbs 12/31/2018 Blood Pressure 1: 140/52 Code: 8480-6 BMI: 16.2 Code: 64093-0 Heart Rate 1: 70 bpm Height: 5'2" SpO2: 95% Weight: 90 lbs 09/05/2018 Blood Pressure 1: 138/74 Code: 8480-6 BMI: 16.1 Code: 84888-7 Heart Rate 1: 69 bpm Height: 5'2" SpO2: 98% Weight: 89 lbs 8 oz 08/15/2018 Blood Pressure 1: 142/72 Code: 8480-6 BMI: 16.3 Code: 19013-7 Heart Rate 1: 66 bpm Height: 5'2" SpO2: 99% Weight: 90 lbs 8 oz 05/29/2018 Blood Pressure 1: 140/70 Code: 8480-6 BMI: 16.2 Code: 91153-1 Heart Rate 1: 67 bpm Height: 5'2" SpO2: 99% Weight: 90 lbs 05/14/2018 Blood Pressure 1: 146/68 Code: 8480-6 BMI: 16.0 Code: 87302-9 Heart Rate 1: 70 bpm Height: 5'2" SpO2: 98% Weight: 89 lbs 04/18/2018 Blood Pressure 1: 126/68 Code: 8480-6 BMI: 15.7 Code: 09286-4 Heart Rate 1: 81 bpm Height: 5'2" SpO2: 99% Weight: 87 lbs 01/22/2018 Blood Pressure 1: 136/76 Code: 8480-6 BMI: 15.8 Code: 48665-3 Heart Rate 1: 73 bpm Height: 5'2" SpO2: 99% Weight: 88 lbs 01/01/2018 Blood Pressure 1: 148/76 Code: 8480-6 BMI: 15.8 Code: 89785-8 Heart Rate 1: 74 bpm Height: 5'2" SpO2: 98% Weight: 88 lbs 12/12/2017 Blood Pressure 1: 140/72 Code: 8480-6 BMI: 15.8 Code: 22534-3 Heart Rate 1: 65 bpm Height: 5'2" SpO2: 96% Weight: 88 lbs 09/13/2017 Blood Pressure 1: 138/70 Code: 8480-6 BMI: 15.9 Code: 69821-8 Heart Rate 1: 74 bpm Height: 5'2" SpO2: 99% Weight: 88 lbs 8 oz 06/21/2017 Blood Pressure 1: 122/50 Code: 8480-6 BMI: 15.3 Code: 34761-2 Heart Rate 1: 69 bpm Height: 5'2" SpO2: 99% Weight: 85 lbs 05/25/2017 Blood Pressure 1: 138/72 Code: 8480-6 Heart Rate 1: 77 bpm Height: 5'2" SpO2: 98% Weight: 05/16/2017 Blood Pressure 1: 136/78 Code: 8480-6 Heart Rate 1: 86 bpm Height: 5'2" SpO2: 98% Weight: 02/15/2017 Blood Pressure 1: 144/78 Code: 8480-6 BMI: 15.4 Code: 58232-5 Heart Rate 1: 65 bpm Height: 5'2" SpO2: 98% Weight: 85 lbs 8 oz 11/22/2016 Blood Pressure 1: 140/58 Code: 8480-6 BMI: 14.8 Code: 03616-9 Heart Rate 1: 79 bpm Height: 5'2" SpO2: 99% Weight: 82 lbs 09/15/2016 BMI: 16.0 Code: 84062-1 Height: 5'2" Weight: 89 lbs 09/07/2016 Blood Pressure 1: 130/62 Code: 8480-6 BMI: 16.2 Code: 36748-3 Heart Rate 1: 71 bpm Height: 5'2" SpO2: 98% Weight: 90 lbs 07/06/2016 Blood Pressure 1: 144/76 Code: 8480-6 BMI: 15.8 Code: 10202-3 Heart Rate 1: 78 bpm Height: 5'2" SpO2: 99% Weight: 88 lbs 04/06/2016 Blood Pressure 1: 148/58 Code: 8480-6 BMI: 16.2 Code: 04408-2 Heart Rate 1: 64 bpm Height: 5'2" SpO2: 97% Weight: 90 lbs 01/06/2016 Blood Pressure 1: 146/72 Code: 8480-6 BMI: 16.6 Code: 34145-6 Heart Rate 1: 62 bpm Height: 5'2" SpO2: 99% Weight: 92 lbs 09/02/2015 Blood Pressure 1: 132/70 Code: 8480-6 BMI: 16.6 Code: 38421-7 Heart Rate 1: 77 bpm Height: 5'2" SpO2: 98% Weight: 92 lbs 06/15/2015 Blood Pressure 1: 144/60 Code: 8480-6 BMI: 16.7 Code: 50326-2 Heart Rate 1: 66 bpm Height: 5'2" SpO2: 97% Weight: 93 lbs 03/04/2015 Blood Pressure 1: 120/80 Code: 8480-6 BMI: 15.8 Code: 23815-6 Heart Rate 1: 74 bpm Height: 5'2" Weight: 88 lbs Functional Status No Functional Status data History of Present Illness Symptom Name Status Resu lt Effective Date Notes Quality chronic 05/01/2019 None Quality primary hypert ension 05/01/2019 None Quality stable 05/01/2019 None Onset and Resolution o ngoing 05/01/2019 None Onset of Symptom durin g adulthood 05/01/2019 None Blood Pressure Values not checking blood pressure at home 05/01/2019 None Alleviating Factors me dication 05/01/2019 None Pertinent Findings fabián graham 05/01/2019 -weakness sometimes when she needs to eat Pertinent Findings Den ies dyspnea 05/01/2019 None Pertinent Findings Den ies edema 05/01/2019 None Onset and Resolution g radual in onset 05/01/2019 None Onset of Symptom durin g adulthood 05/01/2019 None Significant Medications statin 05/01/2019 None Alleviating Factors me dication 05/01/2019 None Exacerbating Factors d iet 05/01/2019 None Quality chronic 01/09/2019 None Quality primary hypert ension 01/09/2019 None Onset and Resolution o ngoing 01/09/2019 None Onset of Symptom durin g adulthood 01/09/2019 None Blood Pressure Values not checking blood pressure at home 01/09/2019 None Alleviating Factors me dication 01/09/2019 None Pertinent Findings fabián graham 01/09/2019 -weakness sometimes when she needs to eat Pertinent Findings Den ies dyspnea 01/09/2019 None Pertinent Findings Den ies edema 01/09/2019 None Onset and Resolution g radual in onset 01/09/2019 None Onset of Symptom durin g adulthood 01/09/2019 None Significant Medications statin 01/09/2019 None Alleviating Factors me dication 01/09/2019 None Exacerbating Factors d iet 01/09/2019 None Quality stable 01/09/2019 None Quality constant 12/31/2018 None Onset and Resolution s udden in onset 12/31/2018 None Onset of Symptom 5 esteban rs ago 12/31/2018 None Quality constant 12/31/2018 None Quality worsening 12/31/2018 None Onset and Resolution s udden in onset 12/31/2018 None Onset of Symptom 2 day s ago 12/31/2018 None Frequency of Episodes daily 12/31/2018 None Pertinent Findings diana dder pain 12/31/2018 None Pertinent Findings noc turia 12/31/2018 None Pertinent Findings uri nary urgency 12/31/2018 None Quality recurrent 09/05/2018 None Quality pruritic 09/05/2018 None Onset and Resolution s udden in onset 09/05/2018 None Onset and Resolution o ngoing 09/05/2018 None Triggers no known trig gers 09/05/2018 None Location-Major on the neck 09/05/2018 None Onset of Symptom ~4 mo nths ago 09/05/2018 None Quality lower extremit ies 09/05/2018 None Onset and Resolution o ngoing 09/05/2018 None Quality acute 09/05/2018 None Onset of Symptom ~1 mo nths ago 09/05/2018 None Triggers no known asso ciated factors 09/05/2018 None Pertinent Findings Den ies bladder pain 09/05/2018 None hypertension Quality chr onic 08/15/2018 None hypertension Quality robinson linus hypertension 08/15/2018 None hypertension Onset and Resolution ongoing 08/15/2018 None hypertension Onset of Symptom during adulthood 08/15/2018 None hypertension Blood Pressure Values not checking blood pressure at home 08/15/2018 None hypertension Alleviating Factors medication 08/15/2018 None hypertension Pertinent Findings dizziness 08/15/2018 "once in a while" if she turns quickly hypertension Pertinent Findings Denies dyspnea 08/15/2018 None hypertension Pertinent Findings Denies edema 08/15/2018 None hyperlipidemia Onset and Resolution gradual in onset 08/15/2018 None hyperlipidemia Onset of Symptom during adulthood 08/15/2018 None hyperlipidemia Significant Medications statin 08/15/2018 None hyperlipidemia Alleviating Factors medication 08/15/2018 None hyperlipidemia Exacerbating Factors diet 08/15/2018 None rash Onset and Resolution sudden in onset 08/15/2018 None rash Location-Major on t he neck 08/15/2018 None rash Quality recurrent 08/15/2018 None rash Quality pruritic 08/15/2018 None rash Onset and Resolution ongoing 08/15/2018 None rash Onset of Symptom 3 months ago 08/15/2018 None rash Triggers no known t riggers 08/15/2018 None rash Onset and Resolution sudden in onset 05/29/2018 None rash Location-Head/Neck on the posterior neck 05/29/2018 None rash Quality acute 05/29/2018 None rash Quality pruritic 05/29/2018 None rash Quality improving 05/29/2018 None rash Onset and Resolution ongoing 05/29/2018 None rash Triggers no known t riggers 05/29/2018 None rash Onset of Symptom 3 weeks ago 05/29/2018 None gastroesophageal reflux Quality intermittent 05/29/2018 None gastroesophageal reflux Quality heartburn 05/29/2018 None gastroesophageal reflux Timing of Episodes in the morning 05/29/2018 before breakfast gastroesophageal reflux Triggers no known associated factors 05/29/2018 None nasal allergies Location in both nares 05/29/2018 None nasal allergies Onset and Resolution ongoing 05/29/2018 None nasal allergies Exacerbating Factors allergen exposure 05/29/2018 None nasal allergies Pertinent Findings cough 05/29/2018 None rash Location-Major on t he neck 05/14/2018 None rash Color red 05/14/2018 None rash Onset and Resolution sudden in onset 05/14/2018 None rash Onset of Symptom 1 weeks ago 05/14/2018 None hypertension Quality robinson linus hypertension 04/18/2018 None hypertension Onset and Resolution ongoing 04/18/2018 None hypertension Onset of Symptom during adulthood 04/18/2018 None hypertension Blood Pressure Values not checking blood pressure at home 04/18/2018 None hypertension Alleviating Factors medication 04/18/2018 None hypertension Pertinent Findings dizziness 04/18/2018 "once in a while" if she turns quickly hypertension Pertinent Findings Denies dyspnea 04/18/2018 None hypertension Pertinent Findings Denies edema 04/18/2018 None hyperlipidemia Onset and Resolution gradual in onset 04/18/2018 None hyperlipidemia Onset of Symptom during adulthood 04/18/2018 None hyperlipidemia Significant Medications statin 04/18/2018 None hyperlipidemia Alleviating Factors medication 04/18/2018 None hyperlipidemia Exacerbating Factors diet 04/18/2018 None hypertension Quality chr onic 04/18/2018 None shoulder pain Location o n the right shoulder 01/22/2018 None shoulder pain Location o n the left shoulder 01/22/2018 None shoulder pain Quality [place] 01/22/2018 None shoulder pain Quality co nstant 01/22/2018 None shoulder pain Onset and Resolution ongoing 01/22/2018 None shoulder pain Limitation on Activities moderately limits activities 01/22/2018 None shoulder pain Limitation on Activities lacks active range of motion 01/22/2018 None shoulder pain Limitation on Activities lacks strength 01/22/2018 None shoulder pain Frequency of Episodes daily 01/22/2018 None shoulder pain Triggers n o known associated factors 01/22/2018 None shoulder pain Exacerbating Factors lifting 01/22/2018 None shoulder pain Pertinent Findings loss of range of motion 01/22/2018 None shoulder pain Pertinent Findings loss of strength 01/22/2018 None shoulder pain Quality im proving 01/22/2018 None shoulder pain Location o n the right shoulder 01/01/2018 (worse) shoulder pain Location o n the left shoulder 01/01/2018 None shoulder pain Onset and Resolution ongoing 01/01/2018 None shoulder pain Quality co nstant 01/01/2018 None shoulder pain Quality ac [place] 01/01/2018 None shoulder pain Quality wo rsening 01/01/2018 None shoulder pain Pertinent Findings loss of strength 01/01/2018 None shoulder pain Pertinent Findings loss of range of motion 01/01/2018 None shoulder pain Triggers n o known associated factors 01/01/2018 None shoulder pain Exacerbating Factors lifting 01/01/2018 None shoulder pain Frequency of Episodes daily 01/01/2018 None shoulder pain Limitation on Activities moderately limits activities 01/01/2018 None shoulder pain Limitation on Activities lacks active range of motion 01/01/2018 None shoulder pain Limitation on Activities lacks strength 01/01/2018 None hypertension Quality robinson barriga hypertension 12/12/2017 None hypertension Onset and Resolution ongoing 12/12/2017 None hypertension Onset of Symptom during adulthood 12/12/2017 None hypertension Blood Pressure Values not checking blood pressure at home 12/12/2017 None hypertension Alleviating Factors medication 12/12/2017 None hypertension Pertinent Findings decreased energy 12/12/2017 None hypertension Pertinent Findings Denies dizziness 12/12/2017 None hypertension Pertinent Findings dyspnea 12/12/2017 with activity hypertension Pertinent Findings Denies edema 12/12/2017 None hyperlipidemia Onset and Resolution gradual in onset 12/12/2017 None hyperlipidemia Onset of Symptom during adulthood 12/12/2017 None hyperlipidemia Significant Medications statin 12/12/2017 None hyperlipidemia Alleviating Factors medication 12/12/2017 None hyperlipidemia Exacerbating Factors diet 12/12/2017 None hypertension Quality robinson barriga hypertension 09/13/2017 None hypertension Onset and Resolution ongoing 09/13/2017 None hypertension Onset of Symptom during adulthood 09/13/2017 None hypertension Blood Pressure Values not checking blood pressure at home 09/13/2017 None hypertension Alleviating Factors medication 09/13/2017 None hypertension Pertinent Findings decreased energy 09/13/2017 None hypertension Pertinent Findings Denies dizziness 09/13/2017 None hypertension Pertinent Findings dyspnea 09/13/2017 with activity hypertension Pertinent Findings Denies edema 09/13/2017 None hyperlipidemia Onset and Resolution gradual in onset 09/13/2017 None hyperlipidemia Onset of Symptom during adulthood 09/13/2017 None hyperlipidemia Alleviating Factors medication 09/13/2017 None hyperlipidemia Exacerbating Factors diet 09/13/2017 None hyperlipidemia Significant Medications statin 09/13/2017 None dyspepsia Quality burning 06/21/2017 None dyspepsia Onset and Resolution sudden in onset 06/21/2017 None dyspepsia Pertinent Findings decreased energy level 06/21/2017 None dyspepsia Pertinent Findings heartburn 06/21/2017 None Hospital Follow Up _ inf ection 05/25/2017 None Hospital Follow Up _ pain 05/25/2017 None Hospital Follow Up _ Oth er: syncope with hip fx 05/25/2017 None Hospital Follow Up Quality acute 05/25/2017 None dyspepsia Quality burning 05/25/2017 None dyspepsia Onset and Resolution sudden in onset 05/25/2017 None dyspepsia Pertinent Findings decreased energy level 05/25/2017 None dyspepsia Pertinent Findings heartburn 05/25/2017 None Hospital Follow Up _ inf ection 05/16/2017 None Hospital Follow Up _ pain 05/16/2017 None Hospital Follow Up _ Oth er: syncope with hip fx 05/16/2017 None Hospital Follow Up Quality acute 05/16/2017 None dyspepsia Quality burning 05/16/2017 None dyspepsia Onset and Resolution sudden in onset 05/16/2017 None dyspepsia Pertinent Findings decreased energy level 05/16/2017 None dyspepsia Pertinent Findings heartburn 05/16/2017 None hypertension Quality robinson linus hypertension 02/15/2017 None hypertension Onset and Resolution ongoing 02/15/2017 None hypertension Onset of Symptom during adulthood 02/15/2017 None hypertension Blood Pressure Values not checking blood pressure at home 02/15/2017 None hypertension Alleviating Factors medication 02/15/2017 None hypertension Pertinent Findings Denies dizziness 02/15/2017 None hypertension Pertinent Findings dyspnea 02/15/2017 when she becomes fatigued hypertension Pertinent Findings decreased energy 02/15/2017 None hypertension Pertinent Findings Denies edema 02/15/2017 None hyperlipidemia Onset and Resolution gradual in onset 02/15/2017 None hyperlipidemia Onset of Symptom during adulthood 02/15/2017 None hyperlipidemia Alleviating Factors medication 02/15/2017 None hyperlipidemia Exacerbating Factors diet 02/15/2017 None fatigue Onset and Resolution ongoing 02/15/2017 None fatigue Quality acute 02/15/2017 None hair loss Quality acute 02/15/2017 None hair loss Location on th e scalp 02/15/2017 None hair loss Triggers no kn own triggers 02/15/2017 None Hospital Follow Up _ [facility] er: surgery follow up 11/22/2016 None hypertension Quality chr onic 11/22/2016 None hypertension Onset and Resolution ongoing 11/22/2016 None hypertension Onset of Symptom during adulthood 11/22/2016 None hypertension Blood Pressure Values not checking blood pressure at home 11/22/2016 None skin lesion Onset and Resolution ongoing 09/15/2016 None skin lesion Location Nose 09/15/2016 None skin lesion Pertinent Findings Denies fever 09/15/2016 None skin lesion Quality asym metric 09/15/2016 None skin lesion Quality flat 09/07/2016 None skin lesion Onset and Resolution ongoing 09/07/2016 None hypertension Quality chr onic 09/07/2016 None hypertension Quality robinson barriga hypertension 09/07/2016 None hypertension Onset and Resolution ongoing 09/07/2016 None hypertension Onset of Symptom during adulthood 09/07/2016 None hypertension Blood Pressure Values not checking blood pressure at home 09/07/2016 None hypertension Alleviating Factors medication 09/07/2016 None hypertension Pertinent Findings Denies dizziness 09/07/2016 None hypertension Pertinent Findings Denies dyspnea 09/07/2016 None hyperlipidemia Onset and Resolution gradual in onset 09/07/2016 None hyperlipidemia Onset and Resolution ongoing 09/07/2016 None hyperlipidemia Onset of Symptom during adulthood 09/07/2016 None hyperlipidemia Alleviating Factors medication 09/07/2016 None hyperlipidemia Exacerbating Factors diet 09/07/2016 None back pain Quality interm ittent 09/07/2016 None back pain Onset and Resolution sudden in onset 09/07/2016 None back pain Onset of Symptom 1 weeks ago 09/07/2016 None back pain Frequency of Episodes on and off 09/07/2016 None hypertension Quality chr onic 07/06/2016 None hypertension Quality robinson barriga hypertension 07/06/2016 None hypertension Onset and Resolution ongoing 07/06/2016 None hypertension Onset of Symptom during adulthood 07/06/2016 None hypertension Pertinent Findings Denies dyspnea 07/06/2016 None hypertension Blood Pressure Values not checking blood pressure at home 07/06/2016 None hypertension Pertinent Findings Denies dizziness 07/06/2016 None hypertension Alleviating Factors medication 07/06/2016 None nasal discharge Location in both nares 07/06/2016 None nasal discharge Quality intermittent 07/06/2016 None nasal discharge Onset and Resolution ongoing 07/06/2016 None nasal discharge Exacerbating Factors allergen exposure 07/06/2016 None back pain Quality interm ittent 07/06/2016 None back pain Onset and Resolution sudden in onset 07/06/2016 None back pain Onset of Symptom 1 weeks ago 07/06/2016 None back pain Frequency of Episodes on and off 07/06/2016 None hyperlipidemia Onset and Resolution gradual in onset 07/06/2016 None hyperlipidemia Onset and Resolution ongoing 07/06/2016 None hyperlipidemia Onset of Symptom during adulthood 07/06/2016 None hyperlipidemia Alleviating Factors medication 07/06/2016 None hyperlipidemia Exacerbating Factors diet 07/06/2016 None gastroesophageal reflux Quality stable 04/06/2016 None gastroesophageal reflux Onset and Re solution ongoing 04/06/2016 None gastroesophageal reflux Frequency of Episodes unchanged 04/06/2016 Non e hypertension Quality chr onic 04/06/2016 None hypertension Quality robinson barriga hypertension 04/06/2016 None hypertension Onset and Resolution ongoing 04/06/2016 None hypertension Onset of Symptom during adulthood 04/06/2016 None hypertension Blood Pressure Values Stage 1:SBP 140-159 mmHg / DBP 90-99 mmHg 04/06/2016 None hypertension Severity no t consistently severe symptoms, the symptoms fluctuate from no symptoms to anxiety and headaches 04/06/2016 None hypertension Pertinent Findings Denies dyspnea 04/06/2016 None skin lesion Onset and Resolution ongoing 04/06/2016 None skin lesion Quality rais ed 04/06/2016 None gastroesophageal reflux Quality stable 01/06/2016 None gastroesophageal reflux Onset and Re solution ongoing 01/06/2016 None gastroesophageal reflux Frequency of Episodes unchanged 01/06/2016 Non e hypertension Quality chr onic 01/06/2016 None hypertension Quality robinson barriga hypertension 01/06/2016 None hypertension Onset and Resolution ongoing 01/06/2016 None hypertension Onset of Symptom during adulthood 01/06/2016 None hypertension Blood Pressure Values Stage 1:SBP 140-159 mmHg / DBP 90-99 mmHg 01/06/2016 None hypertension Severity no t consistently severe symptoms, the symptoms fluctuate from no symptoms to anxiety and headaches 01/06/2016 None hypertension Pertinent Findings Denies dyspnea 01/06/2016 None gastroesophageal reflux Quality stable 09/02/2015 None gastroesophageal reflux Onset and Re solution ongoing 09/02/2015 None gastroesophageal reflux Frequency of Episodes unchanged 09/02/2015 Non e wrist pain Location on t he left 09/02/2015 Worse wrist pain Location on t he right 09/02/2015 None wrist pain Quality inter mittent 09/02/2015 None wrist pain Onset and Resolution ongoing 09/02/2015 None wrist pain Pertinent Findings tingling 09/02/2015 None new lesion Location-Major on the lower body 09/02/2015 None new lesion Location-Extremities on the left leg 09/02/2015 None new lesion Quality worse marisol 09/02/2015 None new lesion Color red 09/02/2015 None new lesion Onset and Resolution ongoing 09/02/2015 None new lesion Onset and Resolution gradual in onset 09/02/2015 None new lesion Limitation on Activities does not limit activities 09/02/2015 None new lesion Prior Treatments previously treated 09/02/2015 None new lesion Prior Treatments unresponsive to treatment 09/02/2015 None rash Location-Major on t he arms 06/15/2015 None rash Location-Major on t he legs 06/15/2015 None rash Location-Major on t he neck 06/15/2015 None rash Color red 06/15/2015 None rash Onset of Symptom 1 year ago 06/15/2015 None rash Pertinent Findings itching 06/15/2015 None rash Triggers no known t riggers 06/15/2015 None rash Alleviating Factors no alleviating factors 06/15/2015 None arm pain Location left a rm 06/15/2015 None arm pain Quality tingling 06/15/2015 None arm pain Onset and Resolution ongoing 06/15/2015 None arm pain Onset of Symptom 2 months ago 06/15/2015 None arm pain Radiating the l eft upper extremity 06/15/2015 tingling in let forearm i nto first 3 digits of left hand arm pain Limitation on Activities allows weight bearing activity 06/15/2015 None arm pain Extent of Symptoms numbness in thumb and index finger 06/15/2015 None arm pain Extent of Symptoms numbness in index, long fingers, dorsum hand 06/15/2015 None arm pain Frequency of Episodes increasing 06/15/2015 None arm pain Mechanism of injury unknown 06/15/2015 None arm pain Pertinent Findings female 06/15/2015 None arm pain Pertinent Findings right hand dominant 06/15/2015 None blood pressure followup Alleviating Factor s diet changes 03/04/2015 None blood pressure followup Alleviating Factor s exercise 03/04/2015 None blood pressure followup Alleviating Factor s medication 03/04/2015 None blood pressure followup Frequency of Episodes unchanged 03/04/2015 Non e blood pressure followup Onset and Re solution ongoing 03/04/2015 None blood pressure followup Onset of Symptom during childhood 03/04/2015 None blood pressure followup Quality chronic 03/04/2015 None blood pressure followup Triggers stress 03/04/2015 None Advance Directives No Advance Directive data Encounters Encounter Performer Loca tiduyen Codes Date ([id number]) 63987 EST. P ATIENT, LEVEL IV Diagnosis: Essential (primary) hypertension[ICD10: I10] Diagnosis: Mixed hyperlipidemia[ICD10: E78.2] Diagnosis: Generalized anxiety disorder[ICD10: F41.1] Anum Bradshaw MD, [facility] CPT-4: 30907 05/01/2019 ([id number]) 37916 EST. P ATIENT, LEVEL IV Diagnosis: Essential (primary) hypertension[ICD10: I10] Diagnosis: Mixed hyperlipidemia[ICD10: E78.2] Diagnosis: Generalized anxiety disorder[ICD10: F41.1] Diagnosis: Gastro-esophageal reflux disease without esophagitis[ICD10: K21.9] Diagnosis: Underweight[ICD10: R63.6] Diagnosis: Vitamin B12 deficiency anemia due to intrinsic factor deficiency[ICD10: D51.0] Diagnosis: Age-related osteoporosis without current pathological fracture[ICD10: M81.0] Diagnosis: Pain in left toe(s)[ICD10: M79.675] Diagnosis: Pain in right toe(s)[ICD10: M79.674] Diagnosis: Corns and callosities[ICD10: L84] Anum Bradshaw MD, [facility] CPT-4: 02722 01/09/2019 83533 EST. PATIENT, LEVEL IV Diagnosis: Dysuria[ICD10: R30.0] Kala Bradshaw MD, [facility] CPT-4: 36887 12/31/2018 ([id number] EST. P ATIENT, LEVEL IV Diagnosis: Essential (primary) hypertension[ICD10: I10] Diagnosis: Rash and other nonspecific skin eruption[ICD10: R21] Anum Bradshaw MD, [facility] CPT-4: 07642 09/05/2018 ([id number]) 31056 EST. P ATIENT, LEVEL IV Diagnosis: Essential (primary) hypertension[ICD10: I10] Diagnosis: Tinea barbae and tinea capitis[ICD10: B35.0] Diagnosis: Unsteadiness on feet[ICD10: R26.81] Diagnosis: Weakness[ICD10: R53.1] Anum Bradshaw MD, [facility] CPT-4: 66353 08/15/2018 ([id number]) 97375 EST. P ATIENT, LEVEL III Diagnosis: Rash and other nonspecific skin eruption[ICD10: R21] Diagnosis: Other allergic rhinitis[ICD10: J30.89] Diagnosis: Gastro-esophageal reflux disease without esophagitis[ICD10: K21.9] Rosalinda Bradshaw MD, [facility] CPT-4: 48001 05/29/2018 ([id number]) 34507 EST. P ATIENT, LEVEL III Diagnosis: Rash and other nonspecific skin eruption[ICD10: R21] Rosalinda Bradshaw MD, [facility] CPT-4: 16328 05/14/2018 ([id number]) 91643 EST. P ATIENT, LEVEL IV Diagnosis: Essential (primary) hypertension[ICD10: I10] Diagnosis: Underweight[ICD10: R63.6] Diagnosis: Mixed hyperlipidemia[ICD10: E78.2] Anum Bradshaw MD, [facility] CPT- 4: 22195 04/18/2018 ([id number]) 90610 EST. P ATIENT, LEVEL III Diagnosis: Bicipital tendinitis, left shoulder[ICD10: M75.22] Anum Bradshaw MD, [facility] CPT-4: 47962 01/22/2018 ([id number]) 70179 EST. P ATIENT, LEVEL III Diagnosis: Pain in right shoulder[ICD10: M25.511] Diagnosis: Bicipital tendinitis, right shoulder[ICD10: M75.21] Anum Bradshaw MD, C CPT-4: 88365 01/01/2018 ([id number]) 85053 EST. P ATIENT, LEVEL IV Diagnosis: Essential (primary) hypertension[ICD10: I10] Diagnosis: Underweight[ICD10: R63.6] Diagnosis: Mixed hyperlipidemia[ICD10: E78.2] Diagnosis: Actinic keratosis[ICD10: L57.0] Anum Bradshaw MD, [facility] CPT-4: 78305 12/12/2017 ([id number]) 10808 EST. P ATIENT, LEVEL III Diagnosis: Essential (primary) hypertension[ICD10: I10] Diagnosis: Fracture of unspecified part of neck of left femur, subsequent encounter for closed fracture with routine healing[ICD10: S72.002D] Diagnosis: Underweight[ICD10: R63.6] Anum Bradshaw MD, [facility] CPT-4: 40998 09/13/2017 ([id number]) 77656 EST. [facility]: Mixed hyperlipidemia[ICD10: E78.2] Diagnosis: Essential (primary) hypertension[ICD10: I10] Diagnosis: Vitamin B12 deficiency anemia due to intrinsic factor deficiency[ICD10: D51.0] Diagnosis: Gastro-esophageal reflux disease with esophagitis[ICD10: K21.0] Diagnosis: Age-related osteoporosis without current pathological fracture[ICD10: M81.0] Diagnosis: Encounter for immunization[ICD10: Z23] Anum Bradshaw MD, [facility] CPT-4: 87213 06/21/2017 ([id number]) 91383 EST. [facility] Diagnosis: Fracture of unspecified part of neck of left femur, subsequent encounter for closed fracture with routine healing[ICD10: S72.002D] Diagnosis: Underweight[ICD10: R63.6] Diagnosis: Gastro-esophageal reflux disease with esophagitis[ICD10: K21.0] Anum Bradshaw MD, [facility] CPT-4: 28956 05/25/2017 ([id number]) 01258 EST. [facility] Diagnosis: Essential (primary) hypertension[ICD10: I10] Diagnosis: Fracture of unspecified part of neck of left femur, subsequent encounter for closed fracture with routine healing[ICD10: S72.002D] Diagnosis: Generalized anxiety disorder[ICD10: F41.1] Anum Bradshaw MD, [facility] CPT-4: 80396 05/16/2017 ([id number]) 24250 EST. [facility] Diagnosis: Essential (primary) hypertension[ICD10: I10] Diagnosis: Mixed hyperlipidemia[ICD10: E78.2] Diagnosis: Generalized anxiety disorder[ICD10: F41.1] Anum Bradshaw MD, [facility] CPT-4: 17370 02/15/2017 ([id number]) 13851 EST. P ATIENT, LEVEL IV Diagnosis: Mixed hyperlipidemia[ICD10: E78.2] Diagnosis: Generalized anxiety disorder[ICD10: F41.1] Diagnosis: Essential (primary) hypertension[ICD10: I10] Diagnosis: Gastro-esophageal reflux disease with esophagitis[ICD10: K21.0] Anum Bradshaw MD, [facility] CPT-4: 12527 11/22/2016 [id number] EST. PATIENT, LEVEL III Diagnosis: Inflamed seborrheic keratosis[ICD10: L82.0] Kala Bradshaw MD, [facility] CPT-4: 33341 09/15/2016 ([id number]) 83283 EST. P ATIENT, LEVEL IV Diagnosis: Essential (primary) hypertension[ICD10: I10] Diagnosis: Mixed hyperlipidemia[ICD10: E78.2] Diagnosis: Generalized anxiety disorder[ICD10: F41.1] Anum Bradshaw MD, [facility] CPT-4: 41469 09/07/2016 ([id number]) 75760 EST. P ATIENT, LEVEL IV Diagnosis: Essential (primary) hypertension[ICD10: I10] Diagnosis: Frequency of micturition[ICD10: R35.0] Diagnosis: Age-related osteoporosis without current pathological fracture[ICD10: M81.0] Anum Bradshaw MD, [facility] CPT-4: 09833 07/06/2016 ([id number]) 20618 EST. P ATIENT, LEVEL IV Diagnosis: Essential (primary) hypertension[ICD10: I10] Diagnosis: Mixed hyperlipidemia[ICD10: E78.2] Diagnosis: Gastro-esophageal reflux disease with esophagitis[ICD10: K21.0] Anum Bradshaw MD, [facility] CPT-4: 97758 04/06/2016 99145 EST. PATIENT, LEVEL IV Diagnosis: Essential (primary) hypertension[ICD10: I10] Diagnosis: Gastro-esophageal reflux disease with esophagitis[ICD10: K21.0] Kala Bradshaw MD, [facility] CPT-4: 44388 01/06/2016 ([id number]) 31313 EST. P ATIENT, LEVEL IV Diagnosis: Essential (primary) hypertension[ICD10: I10] Diagnosis: Gastro-esophageal reflux disease with esophagitis[ICD10: K21.0] Diagnosis: Other dietary vitamin B12 deficiency anemia[ICD10: D51.3] Diagnosis: Vitamin B12 deficiency anemia due to intrinsic factor deficiency[ICD10: D51.0] Diagnosis: Occlusion and stenosis of unspecified carotid artery[ICD10: I65.29] Anum Bradshaw MD, [facility] CPT-4: 15348 09/02/2015 ([id number]) 23385 EST. P ATIENT, LEVEL III Diagnosis: Carpal tunnel syndrome[ICD9: 354.0] Diagnosis: Inflamed seborrheic keratosis[ICD9: 702.11] [facility] CPT-4: 36166 06/15/2015 ([id number]) OFFICE VISI T, NEW - LEVEL 4 Diagnosis: ESSENTIAL HYPERTENSION[ICD9: 401.9] Diagnosis: ESOPHAGEAL REFLUX[ICD9: 530.81] Diagnosis: HYPERLIPIDEMIA[ICD9: 272.4] Anum Bradshaw MD, [facility] CPT-4: 32323 03/04/2015 Plan of Care Planned Activity Notes C odes Status Date Visit Plan: Hypertension - well con trolled - continue with current medications, continue with no added salt diet. Pt has been encouraged to exercise daily. The pt has been advised to call the office if there are any acute concerns about change in blood pressure readings at home. Chronic Depression and anxiety - the pt has symptoms of chronic anxiety and depression that have been fairly well controlled since the last office visit. The pt has expected periods of exacerbation with abatement of the symptoms with change in situational exposure. No change in current medications. No change in dose of escitalopram. Hyperlipidemia - pt has been counseled about appropriate diet, exercise, and need for low fat food choices. I have discussed the need for the patient to take medications as prescribed. If the patient has negative side effects from the medication, they are to CALL the office and not abruptly discontinue the medication without discussion with a practitioner in the office. We will check labs in 3-6 months for follow up on the patient's chronic medical problem and to assure normal liver response to medications. 05/01/2019 Patient Education: Patient Medication Summary Completed 05/01/2019 Patient Education: Hypertension Completed 05/01/2019 Patient Education: Cholesterol Management Completed 05/01/2019 Visit Plan: Hypertension - well con trolled - continue with current medications, continue with no added salt diet. Pt has been encouraged to exercise daily. The pt has been advised to call the office if there are any acute concerns about change in blood pressure readings at home. [place] on toe - debrided with scalpel today. on lateral aspect of right great toe and on dorsum of left 2nd toe. Hyperlipidemia - pt has been counseled about appropriate diet, exercise, and need for low fat food choices. I have discussed the need for the patient to take medications as prescribed. If the patient has negative side effects from the medication, they are to CALL the office and not abruptly discontinue the medication without discussion with a practitioner in the office. We will check labs in 3-6 months for follow up on the patient's chronic medical problem and to assure normal liver response to medications. Esophageal Reflux - the patient has been counseled against excessive intake of caffeine, spicy foods, peppermint, and cinnamon - all of which can exacerbate esophageal reflux. The patient is to take medications as prescribed and call the office if the symptoms are not improving. Underweight - discussed with patient - need to increase caloric intake. 01/09/2019 Appointment: [facility] [phone] [facility] (15 min) Moderate 01/09/2019 Patient Education: Patient Medication Summary Completed 01/09/2019 Patient Education: Hypertension Completed 01/09/2019 Patient Education: Cholesterol Management Completed 01/09/2019 Visit Plan: UTI - pt with positive urinalysis - culture sent if appropriate. Antibiotic electronically prescribed to pt's pharmacy of choice. Pt to call if symptoms do not improve. 12/31/2018 Appointment: [phone] [facility] (30 min) Complex 12/31/2018 Patient Education: Patient Medication Summary Completed 12/31/2018 Visit Plan: Hypertension - well con trolled - continue with current medications, continue with no added salt diet. Pt has been encouraged to exercise daily. The pt has been advised to call the office if there are any acute concerns about change in blood pressure readings at home. Rash on posterior scalp - rx for betamethasone. 09/05/2018 Appointment: Anum Bradshaw WPtel: [phone] [phone] (15 min) Moderate 09/05/2018 Patient Education: Patient Medication Summary Completed 09/05/2018 Patient Education: Hypertension Completed 09/05/2018 Visit Plan: Hypertension - well argenis fishered - continue with current medications, continue with no added salt diet. Pt has been encouraged to exercise daily. The pt has been advised to call the office if there are any acute concerns about change in blood pressure readings at home. Generalized weakness, Gait instability - I have recommended a referral to Katharine Conner for physical therapy balance training. Tinea Capitis - rx for ketoconazole cream and call if not improving. 08/15/2018 Appointment: Anum Bradshaw WPtel: [phone] [phone] (15 min) Moderate 08/15/2018 Patient Education: Patient Medication Summary Completed 08/15/2018 Patient Education: Hypertension Completed 08/15/2018 Appointment: Anum Bradshaw WPtel: [facility] [place] (15 min) Moderate 2018 Appointment: Injection 06/21/2018 Patient Education: Patient Medication Summary Completed 06/21/2018 Visit Plan: Esophageal Reflux - the patient has been counseled against excessive intake of caffeine, spicy foods, peppermint, and cinnamon - all of which can exacerbate esophageal reflux. The patient is to take medications as prescribed and call the office if the symptoms are not improving. Allergies - chronic - recommended pt to use allergy medication as prescribed. Pt has been counseled as to the appropriate use of the medication. Pt to call if allergy symptoms are not controlled with the medication. If using nasal spray, instructions as follows: Nasal spray- use twice daily, one spray per nostril twice daily, after 30 minutes, rinse out nose with saline spray.. Use opposite hand per nostril to spray in the nasal steroid allergy spray. Rash-fungal culture pending-symptoms improved-continue ketoconazole shampoo 05/29/2018 Appointment: Rosalinda Bermudez WPtel: [phone] [phone] [place] (30 min) Complex 05/29/2018 Patient Education: Patient Medication Summary Completed 05/29/2018 Visit Plan: Rash-scalp -tinea vs ps oriasis -scalp scraping sent for culture -rx sent to patient's pharmacy and instructed on use-follow up in 2 weeks -sooner if needed 05/14/2018 Visit Plan: Rash-scalp -tinea vs ps oriasis -scalp scraping sent for culture -rx sent to patient's pharmacy and instructed on use-follow up in 2 weeks -sooner if needed 05/14/2018 Appointment: Rosalinda Bermudez WPtel: [phone] [phone] [place] (30 min) Complex 05/14/2018 Patient Education: Patient Medication Summary Completed 05/14/2018 Visit Plan: Hypertension - well con trolled - continue with current medications, continue with no added salt diet. Pt has been encouraged to exercise daily. The pt has been advised to call the office if there are any acute concerns about change in blood pressure readings at home. Underweight - persistent- continue with high protein diet. Hyperlipidemia - pt has been counseled about appropriate diet, exercise, and need for low fat food choices. I have discussed the need for the patient to take medications as prescribed. If the patient has negative side effects from the medication, they are to CALL the office and not abruptly discontinue the medication without discussion with a practitioner in the office. We will check labs in 3-6 months for follow up on the patient's chronic medical problem and to assure normal liver response to medications. 04/18/2018 Appointment: Anum Bradshaw WPtel: [facility] [place] [facility] [place] (15 min) Moderate 04/18/2018 Patient Education: Patient Medication Summary Completed 04/18/2018 Appointment: Injection 03/08/2018 Visit Plan: Left shoulder pain - bi cep tendonitis - continue with physical therapy at [facility]. Use voltaren gel on left shoulder now - continue with therapy on right shoulder. 01/22/2018 Appointment: [facility] Brad[facility]el[facility] [phone] [facility] [place] (15 min) Moderate 01/22/2018 Patient Education: Patient Medication Summary Completed 01/22/2018 Visit Plan: Hypertension - well con trolled - continue with current medications, continue with no added salt diet. Pt has been encouraged to exercise daily. The pt has been advised to call the office if there are any acute concerns about change in blood pressure readings at home. Right shoulder pain - bicep tendonitis - referral to physical therapy at [facility] 01/01/2018 Appointment: Anum Bradshaw WPtel: [facility] [place] [facility] (15 min) Moderate 01/01/2018 Patient Education: Patient Medication Summary Completed 01/01/2018 Visit Plan: Hypertension - well con trolled - continue with current medications, continue with no added salt diet. Pt has been encouraged to exercise daily. The pt has been advised to call the office if there are any acute concerns about change in blood pressure readings at home. Underweight - improving - continue with high protein diet. Hyperlipidemia - pt has been counseled about appropriate diet, exercise, and need for low fat food choices. I have discussed the need for the patient to take medications as prescribed. If the patient has negative side effects from the medication, they are to CALL the office and not abruptly discontinue the medication without discussion with a practitioner in the office. We will check labs in 3-6 months for follow up on the patient's chronic medical problem and to assure normal liver response to medications. Skin lesion on nose - recommended pt to do the following: efudex - apply to the skin lesion on the top of your nose - apply twice a day - call if you need a refill - you need to use this twice daily x 2 weeks 12/12/2017 Appointment: Anum Bradshaw WPtel: [facility] [place] [facility] (15 min) Moderate 12/12/2017 Patient Education: Patient Medication Summary Completed 12/12/2017 Visit Plan: Hypertension - well con trolled - continue with current medications, continue with no added salt diet. Pt has been encouraged to exercise daily. The pt has been advised to call the office if there are any acute concerns about change in blood pressure readings at home. Underweight - improving - continue with high protein diet. Hip fracture - healing. 09/13/2017 Appointment: Anum Bradshaw WPtel: [facility] [place] (15 min) Moderate 09/13/2017 Patient Education: Patient Medication Summary Completed 09/13/2017 Visit Plan: Hypertension - well con trolled - continue with current medications, continue with no added salt diet. Pt has been encouraged to exercise daily. The pt has been advised to call the office if there are any acute concerns about change in blood pressure readings at home. Hyperlipidemia - pt has been counseled about appropriate diet, exercise, and need for low fat food choices. I have discussed the need for the patient to take medications as prescribed. If the patient has negative side effects from the medication, they are to CALL the office and not abruptly discontinue the medication without discussion with a practitioner in the office. We will check labs in 3-6 months for follow up on the patient's chronic medical problem and to assure normal liver response to medications. check labs today Esophageal Reflux - the patient has been counseled against excessive intake of caffeine, spicy foods, peppermint, and cinnamon - all of which can exacerbate esophageal reflux. The patient is to take medications as prescribed and call the office if the symptoms are not improving. 06/21/2017 Appointment: Anum Bradshaw WPtel: [facility] [place]5 [facility] (15 min) Moderate 06/21/2017 Patient Education: Patient Medication Summary Completed 06/21/2017 Visit Plan: Esophageal Reflux - the patient has been taking medication as directed and her symptoms are improved. Hip fracture - continue with supportive care, nonweight bearing. Underweight - increase protein intake, higher calorie diet, use wheelchair to decrease excessive caloric expenditure. 05/25/2017 Appointment: Anum Bradshaw WPtel: [facility] (15 min) Moderate 05/25/2017 Patient Education: Patient Medication Summary Completed 05/25/2017 Visit Plan: Hypertension - well con trolled - continue with current medications, continue with no added salt diet. Pt has been encouraged to exercise daily. The pt has been advised to call the office if there are any acute concerns about change in blood pressure readings at home. Hip fracture - healing -Left leg weakness - calf atrophy - to call Betty Gordillo about exercises for lower leg/left calf to prevent foot drop. Chronic Depression and anxiety - the pt has symptoms of chronic anxiety and depression that have been fairly well controlled since the last office visit. The pt has expected periods of exacerbation with abatement of the symptoms with change in situational exposure. No change in current medications. 05/16/2017 Appointment: Anum Bradshaw WPtel: [facility] [place] (15 min) Moderate 05/16/2017 Patient Education: Patient Medication Summary Completed 05/16/2017 Patient Education: Hypertension Completed 05/16/2017 Referral: Dickson Forde Patient i nformed. Referral info faxed. Completed 02/27/2017 Visit Plan: Hypertension - well con trolled - continue with current medications, continue with no added salt diet. Pt has been encouraged to exercise daily. The pt has been advised to call the office if there are any acute concerns about change in blood pressure readings at home. Trigger finger - referral for trigger finger 4th digit right hand to Dr. Forde. Hyperlipidemia - pt has been counseled about appropriate diet, exercise, and need for low fat food choices. I have discussed the need for the patient to take medications as prescribed. If the patient has negative side effects from the medication, they are to CALL the office and not abruptly discontinue the medication without discussion with a practitioner in the office. We will check labs in 3-6 months for follow up on the patient's chronic medical problem and to assure normal liver response to medications. 02/15/2017 Appointment: Anum Bradshaw WPtel: [facility] [id number] (15 min) Moderate 02/15/2017 Patient Education: Patient Medication Summary Completed 02/15/2017 Patient Education: Hypertension Completed 02/15/2017 Care Plan: Referral Order SNOMED-CT : [id number] Pending 02/15/2017 Appointment: Anum Bradshaw WPtel: [facility] (15 min) Moderate 01/11/2017 Visit Plan: Hypertension - well con trolled - continue with current medications, continue with no added salt diet. Pt has been encouraged to exercise daily. The pt has been advised to call the office if there are any acute concerns about change in blood pressure readings at home. Esophageal Reflux - the patient has been counseled against excessive intake of caffeine, spicy foods, peppermint, and cinnamon - all of which can exacerbate esophageal reflux. The patient is to take medications as prescribed and call the office if the symptoms are not improving. Hyperlipidemia - pt has been counseled about appropriate diet, exercise, and need for low fat food choices. I have discussed the need for the patient to take medications as prescribed. If the patient has negative side effects from the medication, they are to CALL the office and not abruptly discontinue the medication without discussion with a practitioner in the office. We will check labs in 3-6 months for follow up on the patient's chronic medical problem and to assure normal liver response to medications. Anxiety - stable - continue current treatment 11/22/2016 Appointment: Anum Bradshaw WPtel: [phone] [facility] [id number] (15 min) Moderate 11/22/2016 Patient Education: Patient Medication Summary Completed 11/22/2016 Patient Education: Hypertension Completed 11/22/2016 Appointment: Rosalinda Bermudez WPtel: [phone] [id number] [place] (30 min) Complex 09/16/2016 Visit Plan: Lesion to left side of nose - pt had been prescribed effudex cream but has been afraid to apply it - given instructions for application, pt is to call if pustular drainage, or any other acute concern s. 09/15/2016 Patient Education: Patient Medication Summary Completed 09/15/2016 Visit Plan: Hypertension - well con trolled - continue with current medications, continue with no added salt diet. Pt has been encouraged to exercise daily. The pt has been advised to call the office if there are any acute concerns about change in blood pressure readings at home. Hyperlipidemia - pt has been counseled about appropriate diet, exercise, and need for low fat food choices. I have discussed the need for the patient to take medications as prescribed. If the patient has negative side effects from the medication, they are to CALL the office and not abruptly discontinue the medication without discussion with a practitioner in the office. We will check labs in 3-6 months for follow up on the patient's chronic medical problem and to assure normal liver response to medications. Anxiety - start on lexapro 5mg and monitor symptoms. 09/07/2016 Appointment: Anum Bradshaw WPtel: [phone] [facility] [id number] (15 min) Moderate 09/07/2016 Patient Education: Patient Medication Summary Completed 09/07/2016 Patient Education: Hypertension Completed 09/07/2016 Visit Plan: Hypertension - well con trolled - continue with current medications, continue with no added salt diet. Pt has been encouraged to exercise daily. The pt has been advised to call the office if there are any acute concerns about change in blood pressure readings at home. Osteoporosis - discussed pt's treatment options - she is to let us know if she is interested in forteo or prolia Frequency of urination - ua negative 07/06/2016 Appointment: Anum Bradshaw WPtel: [phone] [facility] [id number] (15 min) Moderate 07/06/2016 Patient Education: Patient Medication Summary Completed 07/06/2016 Patient Education: Hypertension Completed 07/06/2016 Appointment: Injection 06/24/2016 Patient Education: Patient Medication Summary Completed 06/24/2016 Visit Plan: Hypertension - well con trolled - continue with current medications, continue with no added salt diet. Pt has been encouraged to exercise daily. The pt has been advised to call the office if there are any acute concerns about change in blood pressure readings at home. Hyperlipidemia - pt has been counseled about appropriate diet, exercise, and need for low fat food choices. I have discussed the need for the patient to take medications as prescribed. If the patient has negative side effects from the medication, they are to CALL the office and not abruptly discontinue the medication without discussion with a practitioner in the office. We will check labs in 3-6 months for follow up on the patient's chronic medical problem and to assure normal liver response to medications. Esophageal Reflux - the patient has been counseled against excessive intake of caffeine, spicy foods, peppermint, and cinnamon - all of which can exacerbate esophageal reflux. The patient is to take medications as prescribed and call the office if the symptoms are not improving. 04/06/2016 Appointment: Anum Bradshaw WPtel: [facility] [place] (15 min) Moderate 04/06/2016 Patient Education: Patient Medication Summary Completed 04/06/2016 Patient Education: Hypertension Completed 04/06/2016 Visit Plan: Hypertension - The lei ent has been counseled to cut back on salt in diet for a no added salt diet, low fat diet, start an exercise program with low weight bearing exercises and higher aerobic activity for heart health. The patient is to check blood pressure readings as an outpatient and either fax, call, or email the readings to the office next week for practitioner to review. The pt is to call for acute concerns. Esophageal Reflux - the patient has been counseled against excessive intake of caffeine, spicy foods, peppermint, and cinnamon - all of which can exacerbate esophageal reflux. The patient is to take medications as prescribed and call the office if the symptoms are not improving. 01/06/2016 Appointment: (15 min) Moderate 01/06/2016 Patient Education: Patient Medication Summary Completed 01/06/2016 Care Plan: Testosterone Cancelled 10/04/2015 Referral: Kenneth Sykes Referral Completed 09/30/2015 Visit Plan: Hypertension - well con trolled - continue with current medications, continue with no added salt diet. Pt has been encouraged to exercise daily. The pt has been advised to call the office if there are any acute concerns about change in blood pressure readings at home. Skin lesion - use hydrocortisone on the itching spots, and call if not improving. Esophageal Reflux - the patient has been counseled against excessive intake of caffeine, spicy foods, peppermint, and cinnamon - all of which can exacerbate esophageal reflux. The patient is to take medications as prescribed and call the office if the symptoms are not improving. 09/02/2015 Patient Education: Patient Medication Summary Completed 09/02/2015 Patient Education: Hypertension Completed 09/02/2015 Care Plan: Referral Order SNOMED-CT : [id number] Ordered 09/02/2015 Appointment: Injection 06/19/2015 Patient Education: Patient Medication Summary Completed 06/19/2015 Visit Plan: Carpel tunnel syndrome- recommend wrist brace to left wrist-anti inflammatories as directed-call if pain does not resolve or if any worse. Cryotherapy to inflamed SK-right neck, right upper arm and left thigh,-wound Instructions - Pt was instructed to keep the wound clean, wash with antibacterial soap, use triple antibiotic ointment, call if redness, pustular drainage, or any other acute concerns. 06/15/2015 Appointment: (15 min) Moderate 06/15/2015 Patient Education: Patient Medication Summary Completed 06/15/2015 Visit Plan: Hypertension - well con trolled - continue with current medications, continue with no added salt diet. Pt has been encouraged to exercise daily. The pt has been advised to call the office if there are any acute concerns about change in blood pressure readings at home. Hyperlipidemia - pt has been counseled about appropriate diet, exercise, and need for low fat food choices. I have discussed the need for the patient to take medications as prescribed. If the patient has negative side effects from the medication, they are to CALL the office and not abruptly discontinue the medication without discussion with a practitioner in the office. We will check labs in 3-6 months for follow up on the patient's chronic medical problem and to assure normal liver response to medications. Esophageal Reflux - the patient has been counseled against excessive intake of caffeine, spicy foods, peppermint, and cinnamon - all of which can exacerbate esophageal reflux. The patient is to take medications as prescribed and call the office if the symptoms are not improving. 03/04/2015 Appointment: Anum Bradshaw WPtel: [facility] [place] [place] ([place] New Patient 03/04/2015 Patient Education: Patient Medication Summary Completed 03/04/2015 Patient Education: Hypertension Completed 03/04/2015 Patient Education: Patient Medication Summary Completed 02/10/2015 Referral: Dickson Forde Referral Appointment Requested Referral: Kenneth Sykes Referral Appointment Requested Instructions Comment . Hypertension - well controlled - continue with current medications, continue with no added salt diet. Pt has been encouraged to exercise daily. The pt has been advised to call the office if there are any acute concerns about change in blood pressure readings at home. Right shoulder pain - bicep tendonitis - referral to physical therapy at [facility] . Hypertension - wel l controlled - continue with current medications, continue with no added salt diet. Pt has been encouraged to exercise daily. The pt has been advised to call the office if there are any acute concerns about change in blood pressure readings at home. Generalized weakness, Gait instability - I have recommended a referral to [facility] for physical therapy balance training. Tinea Capitis - rx for ketoconazole cream and call if not improving. Monitor your blood p ressure at home and record. Bring in your readings to your next appointment, or as directed. Call for chest pain, shortness of breath, headaches, or other concerns. . Hypertension - well controlled - continue with current medications, continue with no added salt diet. Pt has been encouraged to exercise daily. The pt has been advised to call the office if there are any acute concerns about change in blood pressure readings at home. Hyperlipidemia - pt has been counseled about appropriate diet, exercise, and need for low fat food choices. I have discussed the need for the patient to take medications as prescribed. If the patient has negative side effects from the medication, they are to CALL the office and not abruptly discontinue the medication without discussion with a practitioner in the office. We will check labs in 3-6 months for follow up on the patient's chronic medical problem and to assure normal liver response to medications. Esophageal Reflux - the patient has been counseled against excessive intake of caffeine, spicy foods, peppermint, and cinnamon - all of which can exacerbate esophageal reflux. The patient is to take medications as prescribed and call the office if the symptoms are not improving. prevnar 13 - at [facility]ill [facility] . Hypertension - well controlled - annamaria nue with current medications, continue with no added salt diet. Pt has been encouraged to exercise daily. The pt has been advised to call the office if there are any acute concerns about change in blood pressure readings at home. Chronic Depression and anxiety - the pt has symptoms of chronic anxiety and depression that have been fairly well controlled since the last office visit. The pt has expected periods of exacerbation with abatement of the symptoms with change in situational exposure. No change in current medications. No change in dose of escitalopram. Hyperlipidemia - pt has been counseled about appropriate diet, exercise, and need for low fat food choices. I have discussed the need for the patient to take medications as prescribed. If the patient has negative side effects from the medication, they are to CALL the office and not abruptly discontinue the medication without discussion with a practitioner in the office. We will check labs in 3-6 months for follow up on the patient's chronic medical problem and to assure normal liver response to medications. . UTI - pt with posi tive urinalysis - culture sent if appropriate. Antibiotic electronically prescribed to pt's pharmacy of choice. Pt to call if symptoms do not improve. . Hypertension - wel l controlled - continue with current medications, continue with no added salt diet. Pt has been encouraged to exercise daily. The pt has been advised to call the office if there are any acute concerns about change in blood pressure readings at home. Hyperlipidemia - pt has been counseled about appropriate diet, exercise, and need for low fat food choices. I have discussed the need for the patient to take medications as prescribed. If the patient has negative side effects from the medication, they are to CALL the office and not abruptly discontinue the medication without discussion with a practitioner in the office. We will check labs in 3-6 months for follow up on the patient's chronic medical problem and to assure normal liver response to medications. Esophageal Reflux - the patient has been counseled against excessive intake of caffeine, spicy foods, peppermint, and cinnamon - all of which can exacerbate esophageal reflux. The patient is to take medications as prescribed and call the office if the symptoms are not improving. . Hypertension - wel l controlled - continue with current medications, continue with no added salt diet. Pt has been encouraged to exercise daily. The pt has been advised to call the office if there are any acute concerns about change in blood pressure readings at home. Underweight - persistent- continue with high protein diet. Hyperlipidemia - pt has been counseled about appropriate diet, exercise, and need for low fat food choices. I have discussed the need for the patient to take medications as prescribed. If the patient has negative side effects from the medication, they are to CALL the office and not abruptly discontinue the medication without discussion with a practitioner in the office. We will check labs in 3-6 months for follow up on the patient's chronic medical problem and to assure normal liver response to medications. . Hypertension - wel l controlled - continue with current medications, continue with no added salt diet. Pt has been encouraged to exercise daily. The pt has been advised to call the office if there are any acute concerns about change in blood pressure readings at home. Trigger finger - referral for trigger finger 4th digit right hand to Dr. Forde. Hyperlipidemia - pt has been counseled about appropriate diet, exercise, and need for low fat food choices. I have discussed the need for the patient to take medications as prescribed. If the patient has negative side effects from the medication, they are to CALL the office and not abruptly discontinue the medication without discussion with a practitioner in the office. We will check labs in 3-6 months for follow up on the patient's chronic medical problem and to assure normal liver response to medications. esomeprazole - the g eneric name of Nexium . Hypertension - well controlled - annamaria nue with current medications, continue with no added salt diet. Pt has been encouraged to exercise daily. The pt has been advised to call the office if there are any acute concerns about change in blood pressure readings at home. Hip fracture - healing -Left leg weakness - calf atrophy - to call Betty Gordillo about exercises for lower leg/left calf to prevent foot drop. Chronic Depression and anxiety - the pt has symptoms of chronic anxiety and depression that have been fairly well controlled since the last office visit. The pt has expected periods of exacerbation with abatement of the symptoms with change in situational exposure. No change in current medications. benadryl cream or hy drocortisone (cortisone 10) cream to apply to the skin that is irritated. the spot on your stomach is called a SEBORRHEIC KERATOSIS and is benign look on the computer for "button assistance device" to help you to close the buttons on your clothes. . Hypertension - well controlled - annamaria nue with current medications, continue with no added salt diet. Pt has been encouraged to exercise daily. The pt has been advised to call the office if there are any acute concerns about change in blood pressure readings at home. Skin lesion - use hydrocortisone on the itching spots, and call if not improving. Esophageal Reflux - the patient has been counseled against excessive intake of caffeine, spicy foods, peppermint, and cinnamon - all of which can exacerbate esophageal reflux. The patient is to take medications as prescribed and call the office if the symptoms are not improving. efudex - apply to th e skin lesion on the top of your nose - apply twice a day - call if you need a refill - you need to use this twice daily x 2 weeks . Hypertension - well controlled - annamaria nue with current medications, continue with no added salt diet. Pt has been encouraged to exercise daily. The pt has been advised to call the office if there are any acute concerns about change in blood pressure readings at home. Underweight - improving - continue with high protein diet. Hyperlipidemia - pt has been counseled about appropriate diet, exercise, and need for low fat food choices. I have discussed the need for the patient to take medications as prescribed. If the patient has negative side effects from the medication, they are to CALL the office and not abruptly discontinue the medication without discussion with a practitioner in the office. We will check labs in 3-6 months for follow up on the patient's chronic medical problem and to assure normal liver response to medications. Skin lesion on nose - recommended pt to do the following: efudex - apply to the skin lesion on the top of your nose - apply twice a day - call if you need a refill - you need to use this twice daily x 2 weeks . Hypertension - The patient has been counseled to cut back on salt in diet for a no added salt diet, low fat diet, start an exercise program with low weight bearing exercises and higher aerobic activity for heart health. The patient is to check blood pressure readings as an outpatient and either fax, call, or email the readings to the office next week for practitioner to review. The pt is to call for acute concerns. Esophageal Reflux - the patient has been counseled against excessive intake of caffeine, spicy foods, peppermint, and cinnamon - all of which can exacerbate esophageal reflux. The patient is to take medications as prescribed and call the office if the symptoms are not improving. . Left shoulder pain - bicep tendonitis - continue with physical therapy at [facility] [place]. Use voltaren gel on left shoulder now - continue with therapy on right shoulder. . Carpel tunnel synd jorge-recommend wrist brace to left wrist-anti inflammatories as directed-call if pain does not resolve or if any worse. Cryotherapy to inflamed SK-right neck, right upper arm and left thigh,-wound Instructions - Pt was instructed to keep the wound clean, wash with antibacterial soap, use triple antibiotic ointment, call if redness, pustular drainage, or any other acute concerns. . Lesion to left joleen e of nose - pt had been prescribed effudex cream but has been afraid to apply it - given instructions for application, pt is to call if pustular drainage, or any other acute concerns. . Rash-scalp -tinea vs psoriasis -scalp scraping sent for culture -rx sent to patient's pharmacy and instructed on use-follow up in 2 weeks -sooner if needed . Rash-scalp -tinea vs psoriasis -scalp scraping sent for culture -rx sent to patient's pharmacy and instructed on use-follow up in 2 weeks -sooner if needed . Hypertension - wel l controlled - continue with current medications, continue with no added salt diet. Pt has been encouraged to exercise daily. The pt has been advised to call the office if there are any acute concerns about change in blood pressure readings at home. Hyperlipidemia - pt has been counseled about appropriate diet, exercise, and need for low fat food choices. I have discussed the need for the patient to take medications as prescribed. If the patient has negative side effects from the medication, they are to CALL the office and not abruptly discontinue the medication without discussion with a practitioner in the office. We will check labs in 3-6 months for follow up on the patient's chronic medical problem and to assure normal liver response to medications. Anxiety - start on lexapro 5mg and monitor symptoms. . Hypertension - wel l controlled - continue with current medications, continue with no added salt diet. Pt has been encouraged to exercise daily. The pt has been advised to call the office if there are any acute concerns about change in blood pressure readings at home. [place] on toe - debrided with scalpel today. on lateral aspect of right great toe and on dorsum of left 2nd toe. Hyperlipidemia - pt has been counseled about appropriate diet, exercise, and need for low fat food choices. I have discussed the need for the patient to take medications as prescribed. If the patient has negative side effects from the medication, they are to CALL the office and not abruptly discontinue the medication without discussion with a practitioner in the office. We will check labs in 3-6 months for follow up on the patient's chronic medical problem and to assure normal liver response to medications. Esophageal Reflux - the patient has been counseled against excessive intake of caffeine, spicy foods, peppermint, and cinnamon - all of which can exacerbate esophageal reflux. The patient is to take medications as prescribed and call the office if the symptoms are not improving. Underweight - discussed with patient - need to increase caloric intake. . Hypertension - wel l controlled - continue with current medications, continue with no added salt diet. Pt has been encouraged to exercise daily. The pt has been advised to call the office if there are any acute concerns about change in blood pressure readings at home. Underweight - improving - continue with high protein diet. Hip fracture - healing. Forteo - the daily o steoporosis injection Prolia - the every 3 month osteoporosis injection . Hypertension - well controlled - nanamaria nue with current medications, continue with no added salt diet. Pt has been encouraged to exercise daily. The pt has been advised to call the office if there are any acute concerns about change in blood pressure readings at home. Osteoporosis - discussed pt's treatment options - she is to let us know if she is interested in forteo or prolia Frequency of urination - ua negative . Hypertension - wel l controlled - continue with current medications, continue with no added salt diet. Pt has been encouraged to exercise daily. The pt has been advised to call the office if there are any acute concerns about change in blood pressure readings at home. Rash on posterior scalp - rx for betamethasone. . Esophageal Reflux - the patient has been taking medication as directed and her symptoms are improved. Hip fracture - continue with supportive care, nonweight bearing. Underweight - increase protein intake, higher calorie diet, use wheelchair to decrease excessive caloric expenditure. INCREASE CARAFATE SWITCH TO NIDIA . Esophageal Reflux - the patient has been counseled against excessive intake of caffeine, spicy foods, peppermint, and cinnamon - all of which can exacerbate esophageal reflux. The patient is to take medications as prescribed and call the office if the symptoms are not improving. Allergies - chronic - recommended pt to use allergy medication as prescribed. Pt has been counseled as to the appropriate use of the medication. Pt to call if allergy symptoms are not controlled with the medication. If using nasal spray, instructions as follows: Nasal spray- use twice daily, one spray per nostril twice daily, after 30 minutes, rinse out nose with saline spray.. Use opposite hand per nostril to spray in the nasal steroid allergy spray. Rash-fungal culture pending-symptoms improved-continue ketoconazole shampoo take the carafate at bedtime - continue with the nexium in the morning. . Hypertension - well controlled - annamaria nue with current medications, continue with no added salt diet. Pt has been encouraged to exercise daily. The pt has been advised to call the office if there are any acute concerns about change in blood pressure readings at home. Hyperlipidemia - pt has been counseled about appropriate diet, exercise, and need for low fat food choices. I have discussed the need for the patient to take medications as prescribed. If the patient has negative side effects from the medication, they are to CALL the office and not abruptly discontinue the medication without discussion with a practitioner in the office. We will check labs in 3-6 months for follow up on the patient's chronic medical problem and to assure normal liver response to medications. check labs today Esophageal Reflux - the patient has been counseled against excessive intake of caffeine, spicy foods, peppermint, and cinnamon - all of which can exacerbate esophageal reflux. The patient is to take medications as prescribed and call the office if the symptoms are not improving. take the pantoprazol e 40mg at night - when done with that bottle, RESTART the pepcid as on the prescription. stop the nexium and sucralfate liquid . Hypertension - well controlled - annamaria nue with current medications, continue with no added salt diet. Pt has been encouraged to exercise daily. The pt has been advised to call the office if there are any acute concerns about change in blood pressure readings at home. Esophageal Reflux - the patient has been counseled against excessive intake of caffeine, spicy foods, peppermint, and cinnamon - all of which can exacerbate esophageal reflux. The patient is to take medications as prescribed and call the office if the symptoms are not improving. Hyperlipidemia - pt has been counseled about appropriate diet, exercise, and need for low fat food choices. I have discussed the need for the patient to take medications as prescribed. If the patient has negative side effects from the medication, they are to CALL the office and not abruptly discontinue the medication without discussion with a practitioner in the office. We will check labs in 3-6 months for follow up on the patient's chronic medical problem and to assure normal liver response to medications. Anxiety - stable - continue current treatment
[2019-12-29 11:10] VITALS: BP 170/74
--- NOTE | 2019-12-29 11:10 | History & Physical ---
History of Present Illness History of Present Illness Reason for visit/HPI PT IS AN 84 Y/O FEMALE WHO IS KNOWN TO ME FROM CLINIC. SHE PRESENTED TO THE HOSPITAL WITH SYNCOPAL EPISODE AT HOME. SHE REPORTS THAT SHE WAS GETTING UP TO GET BREAKFAST, FELT LIGHT-HEADED AND THEN SAT DOWN, SHE THEN GOT UP TO FIX HER BREAKFAST AFTER SITTING FOR A SHORT PERIOD OF TIME, THEN GOT LIGHT HEADED AGAIN, SAT DOWN AND THEN PASSED OUT. SHE WOKE UP AND YELLED FOR HER WHO CAME TO HELP HER UP FROM THE FLOOR. PER STAFF SHE WAS ABLE TO WALK TO THE AMBULANCE BY HERSELF. SHE STATES THAT SHE HAS A LITTLE BIT OF PAIN IN HER BACK, AND SHE HAS PAIN IN HER RIGHT FACE FROM WHERE SHE HIT THE GROUND. Date of Admission Dec 29, 2019 at 10:20 Date Seen by a Provider: Dec 29, 2019 Time Seen by a Provider: 10:30 Attending Physician Zev Bradshaw MD Admitting Physician Zev Bradshaw MD Consult Allergies and Home Medications Allergies Coded Allergies: bacitracin (Verified Allergy, Mild, RASH, 10/15/19) lidocaine (Verified Allergy, Mild, RASH, 10/15/19) neomycin (Verified Allergy, Mild, RASH, 10/15/19) polymyxin B (Verified Allergy, Mild, RASH, 10/15/19) pramoxine (Verified Allergy, Mild, RASH, 10/15/19) Home Medications Acetaminophen 650 Mg Tablet.er, 650 MG PO HS, (Reported) Acetaminophen 650 Mg Tablet.er, 650 MG PO DAILY PRN for PAIN-MILD, (Reported) Calcium Carbonate 300 Mg Tab.chew, 300 MG PO PRN PRN for INDIGESTION, (Reported) Calcium Citrate/Vitamin D3 1 Each Tablet, 1 TAB PO DAILY, (Reported) Cetirizine HCl 10 Mg Tablet, 10 MG PO DAILY, (Reported) Cholecalciferol (Vitamin D3) 2,000 Unit Tablet, 2,000 UNIT PO DAILY, (Reported) Cyanocobalamin (Vitamin B-12) 2,500 Mcg Tablet, 2,500 MCG PO Q48H, (Reported) Diltiazem HCl 30 Mg Tablet, 30 MG PO QID Prescribed by: KIYA PEREZ on 05/09/17 0759 Docusate Sodium 100 Mg Capsule, 100 MG PO BID, (Reported) Escitalopram Oxalate 5 Mg Tablet, 5 MG PO HS, (Reported) Famotidine 40 Mg Tablet, 40 MG PO HS, (Reported) Multivitamin 1 Each Tablet, 1 EACH PO DAILY, (Reported) Pyridoxine HCl 100 Mg Tablet, 100 MG PO BID, (Reported) Simvastatin 20 Mg Tablet, 20 MG PO HS, (Reported) Triamterene/Hydrochlorothiazid 1 Each Tablet, 1 TAB PO DAILY, (Reported) Vit A/Vit C/Vit E/Zinc/Copper 1 Each Tablet, 1 EACH PO DAILY, (Reported) Patient Home Medication List Home Medication List Reviewed: Yes Past [id number] Hx Past Med/Social Hx: Reviewed and Corrections made Patient Social History Marrital Status: Living Status: LIVES AT HOME WITH SPOUSE Employed/Student: retired Alcohol Use: Denies Use Recreational Drug Use: No Smoking Status: Never a Smoker 2nd Hand Smoke Exposure: No Physical Abuse Screen: No Sexual Abuse: No Recent Foreign Travel: No Contact w/other who traveled: No Recent Hopitalizations: No Recent Infectious Disease Expo: No Immunizations Up To Date Tetanus Booster (TDap): Unknown Date of Pneumonia Vaccine: Jul 01, 2019 Date of Influenza Vaccine: Jul 01, 2019 Seasonal Allergies Seasonal Allergies: Yes Past Medical History Surgeries: Breast, Hysterectomy, Orthopedic (LEFT HIP PINNING IN 2017 3 SCREWS) Currently Using CPAP: No Currently Using BIPAP: No Cardiac: High Cholesterol, Hypertension Reproductive: No Sexually Transmitted Disease: No HIV/AIDS: No Female 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: Denies Tubal Ligation Gastrointestinal: Gastroesophageal Reflux, Obstructive Bowel, Chronic Constipation, Hiatal Hernia Musculoskeletal: Osteoporosis, Arthritis HEENT: Macular Degeneration Loss of Vision: Denies Hearing Impairment: Denies Psychosocial: Sleep Difficulties History of Blood Disorders: No Adverse Reaction to Blood Caballero: No (HAS HAD BLOOD WITH NO REACTION) Family History Reviewed Nursing Family Hx Congenital disease G8 BROTHER (? DOWN SYNDROME) Hypertension 19 MOTHER G8 SISTER Kidney disease sister Myocardial infarction 19 FATHER Neoplasm 19 MOTHER (BREAST CANCER) Visual disorder 19 MOTHER (MACULAR DEGENERATION) Heart Disease, Cancer, Hypertension, Renal Disease, Other Conditions/Hx (BROTHER WITH CONGENTIAL DISEASE) Review of Systems Constitutional: No chills, No fever, No malaise, No weakness EENTM: other (PAIN ON RIGHT SIDE OF FACE); No hoarseness, No throat pain Respiratory: No cough, No dyspnea on exertion, No short of breath, No wheezing Cardiovascular: No chest pain, No edema, No palpitations; syncope Gastrointestinal: No abdominal pain, No constipation, No diarrhea, No nausea, No vomiting Genitourinary: no symptoms reported; No dysuria Musculoskeletal: back pain (LOW BACK/SACRAL PAIN); No joint pain Skin: no symptoms reported Psychiatric/Neurological: Denies Anxiety, Denies Depressed, Denies Weakness All Other Systems Reviewed Negative Unless Noted: Yes Physical Exam Vital Signs Vital Signs - First Documented 12/29/19 09:00 Temp 36.5 Pulse 71 Resp 20 B/P (MAP) 140/103 (115) Pulse Ox 100 Capillary Refill : Less Than 3 Seconds Height, Weight, BMI Height: 5'3.00" Weight: 82lbs. 6.4oz. [id number]; 16.00 BMI Method:Stated General Appearance: No Apparent Distress, WD/WN, Thin Eyes: Bilateral Eye Normal Inspection, Bilateral Eye PERRL, Bilateral Eye EOMI HEENT: PERRL/EOMI, Pharynx Normal Neck: Full Range of Motion, Supple Respiratory: Chest Non Tender, Lungs Clear, Normal Breath Sounds, No Accessory Muscle Use, No Respiratory Distress Cardiovascular: Regular Rate, Rhythm, No JVD, Normal Peripheral Pulses Gastrointestinal: Normal Bowel Sounds, No Organomegaly, No Pulsatile Mass, Non Tender, Soft Rectal: Deferred Extremity: Normal Capillary Refill, Normal Inspection, Normal Range of Motion, Non Tender, No Calf Tenderness, No Pedal Edema Neurologic/Psychiatric: Alert, Oriented x3, No Motor/Sensory Deficits, Normal Mood/Affect, crop adjuster II-XII Norm as Tested Skin: Warm/Dry, Other (SLIGHT ERYTHEMA RIGHT EAR/CHEEK) Lymphatic: No Adenopathy Assessment/Plan Assessment and Plan SYNCOPE SACRAL FRACTURE ORTHOSTASIS CHRONIC HYPERTENSION ADVANCED AGE FRAILTY UNDERWEIGHT DEPRESSION CHRONIC MILD HYPONATREMIA SYNCOPE - WORK UP WITH ECHO AND CAROTID ULTRASOUND - ORTHOSTASIS NOTED IN THE ER - 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 - CARDIOLOGY CONSULTED SACRAL FRACTURE - SUPPORTIVE CARE ONLY AT THIS TIME, THIS WILL NEED TO HEAL BY SECONDARY INTENTION WITHOUT SURGICAL INTERVENTION - CT SCAN OF PELVIS FOLLOWS: FINDINGS: There is diffuse osteopenia. There is a nondisplaced fracture at the S5 level (image 87 series 602). Alignment appears normal. There are severe degenerative changes at L5- S1 and in the left hip joint. There are moderate degenerative changes in the right hip joint. There is internal fixation of the left femoral neck with 3 cephalo-cervical screws. These contact the cortex without significant extension beyond the cortex of the femoral head. There are mild degenerative changes in the sacroiliac joints bilaterally. No soft tissue fluid collections are seen. No focal muscular atrophy is seen. No distended loops of bowel are identified. The intrapelvic contents are suboptimally evaluated without contrast. There may be minimal free fluid the tip of the liver. There is marked relaxation of the pelvic floor with concern for prolapse. IMPRESSION: 1. Degenerative changes in the pelvis with nondisplaced fracture at the 5th sacral segment. 2. 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 3. Suspect minimal free fluid at the inferior tip of the liver. CHRONIC HYPERTENSION - ELEVATED BP IN ER - WILL CONTINUE WITH LOW DOSE DILTIAZEM ADVANCED AGE WITH FRAILTY AND LOW BODY WEIGHT WITH BMI OF 16 - WE HAVE ENCOURAGED INCREASE INTAKE TO IMPROVE HER WEIGHT, PT HAD GASTRIC S URGERY SEVERAL YEARS AGO AND HAS HAD TROUBLE KEEP HER WEIGHT UP SINCE THAT TIME. DEPRESSION - RESTART SSRI - PT ON LEXAPRO OUTPATIENT, WILL SWITCH TO CELEXA INPATIENT. CHRONIC MILD HYPONATREMIA - SUPPORTIVE CARE - WILL ORDER POWERADE AND ENSURE. Admission Diagnosis SYNCOPE SACRAL FRACTURE ORTHOSTASIS CHRONIC HYPERTENSION ADVANCED AGE FRAILTY UNDERWEIGHT DEPRESSION CHRONIC MILD HYPONATREMIA Admission Status: Observation ZEV BRADSHAW MD Dec 29, 2019 11:09
--- OUTSIDE RECORDS SUMMARY | 2019-12-29 11:11 | XMS REPORT | CCD ---
Author Author Ashley Bradshaw Organization [facility] Address [address] [place] [address] Phone Care Team Providers Care Harvest Manager Name Role Phone PP Unavailable CCM Unavailable Summary Purpose Interface Exchange Insurance Providers Payer name Policy type / Coverage type Covered libertarian ID Effective Begin Date Effective End Date WPS Medicare Part B Medicare Part B [id number] Unknown Unknown CIGNA Medicare Part B [id number] Unknown Unknown Family history Father Diagnosis Age At Onset Coronary Artery Disease Unknown Mother Diagnosis Age At Onset Anemia Unknown Skin cancer Unknown Hypertension Unknown Cancer Unknown Breast cancer Unknown Social History Social History Element Codes Description Effective Dates Marital status Unknown M arrkimberly Shahram 03/04/2015 Number of children Unknown 3 03/04/[address]: 147897378 Never smoker 03/04/[address]: 567171685 Never drinks alcohol 03/04/2015 Allergies, Adverse Reactions, Alerts Substance Reaction Codes Entered Date Inactivated Date Status NEOSPORIN RxNorm: 869859 01/06/2016 No Inactive Date Active Past Medical History Illness Codes Condition Status Onset Date Resolved Date Age-related osteopor osis without current pathological fracture ICD-9: 733.00 ICD-10: M81.0 Active 07/05/2016 Unknown Corns and callosities ICD-9: 700 ICD-10: L84 Active 01/09/2019 Unknown Essential (primary) hypertension ICD-9: 401.9 ICD-10: I10 Active 03/03/2015 Unknown Gastro-esophageal re flux disease without esophagitis ICD-9: 530.81 ICD-10: K21.9 Active 05/29/2018 Unknown Generalized anxiety disorder ICD-9: 300.02 ICD-10: F41.1 Active 09/06/2016 Unknown Mixed hyperlipidemia ICD-9: 272.2 ICD-10: E78.2 Active 12/12/2017 Unknown Pain in left toe(s) ICD- 9: [...] Condition Codes Effectiv e Dates Condition Status Age-related osteopor osis without current pathological fracture ICD-9: 733.00 ICD-10: M81.0 07/05/2016 Active Corns and callosities ICD-9: 700 ICD-10: L84 01/09/2019 Active Essential (primary) hypertension ICD-9: 401.9 ICD-10: I10 03/03/2015 Active Gastro-esophageal re flux disease without esophagitis ICD-9: 530.81 ICD-10: K21.9 05/29/2018 Active Generalized anxiety disorder ICD-9: 300.02 ICD-10: F41.1 09/06/2016 Active Mixed hyperlipidemia ICD-9: 272.2 ICD-10: E78.2 12/12/2017 Active Pain in left toe(s) ICD- 9: [...] Date Stop Date Sta tus Fill Instructions triamterene 37.5 mg- hydrochlorothiazide 25 mg tablet RxNorm: 253405 TAKE 1 TABLET BY MOUTH DAILY 01/24/2019 10/20/2019 Active ketoconazole 2 % top ical cream RxNorm: 624033 APPLY TWICE A DAY TO POSTERIOR SCALP FOR 2 WEEKS OR UNTIL THE SKIN IS HEALED 01/22/2019 02/08/2019 Active Bactroban 2 % topica l ointment RxNorm: 646171 APPLY TO AFFECTED ARE A(S) TOPICALLY DAILY 01/21/2019 No Stop Date Active ketoconazole 2 % sha mpoo RxNorm: 457918 1 Application TOP BIW 01/21/2019 No Stop Date Active escitalopram 5 mg ta blet RxNorm: 095908 TAKE 1 TABLET BY MOUT H EVERY EVENING 01/14/2019 01/08/2020 Ac tive simvastatin 20 mg ta blet RxNorm: 127865 TAKE 1 TABLET BY MOUT H EVERY DAY 01/14/2019 01/08/2020 Ac tive Keflex 500 mg capsule RxNorm: 477139 1 Capsule(s) PO TID 12/31/2018 01/09/2019 Inactive Pyridium 200 mg tablet RxNorm: 2680895 1 Tablet(s) PO TID 12/31/2018 01/01/2019 Inactive esomeprazole magnesi um 40 mg capsule,delayed release RxNorm: 566880 Capsule(s) TAKE 1 CAPSULE BY MOUTH DAILY 11/27/2018 02/19/2020 Active wants to pay henry Zantac 150 mg tablet RxNorm: 421289 1 Tablet(s) PO BID 11/02/2018 11/26/2018 Inactive Zantac 150 mg tablet RxNorm: 818683 1 Tablet(s) PO BID 11/02/2018 11/01/2018 Inactive sucralfate 100 mg/mL oral suspension RxNorm: 643841 10 Milliliter(s) per 1 gram PO QID 10/08/2018 10/02/2019 Active diltiazem 30 mg tablet RxNorm: 223594 1 Tablet(s) PO QID 10/08/2018 10/02/2019 Active betamethasone nasir te 0.1 % topical cream RxNorm: 892269 1 Application TOP BID 09/05/2018 11/03/2018 In active ketoconazole 2 % top ical cream RxNorm: 140737 1 Application TOP BID to posterior scalp x 2 weeks or until the skin is healed 08/15/2018 08/28/2018 Inactive triamterene 37.5 mg- hydrochlorothiazide 25 mg tablet RxNorm: 525691 Tablet(s) 1 Tablet(s) PO daily 07/12/2018 01/07/2019 Inactive PLEASE SEND REFILL REQUESTS ELECTRONICALLY simvastatin 20 mg ta blet RxNorm: 141787 TAKE 1 TABLET BY MOUT H EVERY DAY 07/12/2018 01/07/2019 In active ketoconazole 2 % sha mpoo RxNorm: 926615 1 Application TOP BIW 05/14/2018 01/20/2019 Inactive simvastatin 20 mg ta blet RxNorm: 899324 TAKE 1 TABLET BY MOUT H EVERY DAY 03/01/2018 07/11/2018 In active triamterene 37.5 mg- hydrochlorothiazide 25 mg tablet RxNorm: 115881 Tablet(s) 1 Tablet(s) PO daily 02/06/2018 07/11/2018 Inactive PLEASE SEND REFILL REQUESTS ELECTRONICALLY Voltaren 1 % topical gel RxNorm: 191555 2 Gram(s) TOP TID to shoulders 01/01/2018 04/30/2018 In active sucralfate 100 mg/mL oral suspension RxNorm: 445047 10 Milliliter(s) per 1 gram PO QID 12/12/2017 06/09/2018 Inactive refill 3 month supply- 1gm/10ml simvastatin 20 mg ta blet RxNorm: 429508 TAKE 1 TABLET BY MOUT H EVERY DAY 12/04/2017 02/28/2018 In active escitalopram 5 mg ta blet RxNorm: 660661 1 Tablet(s) PO QPM 10/26/2017 01/13/2019 Inactive esomeprazole magnesi um 40 mg capsule,delayed release RxNorm: 604805 TAKE 1 CAPSULE BY MOUTH DAILY 10/26/2017 11/01/2018 Inactive mupirocin 2 % topica l ointment RxNorm: 512386 APPLY TO AFFECTED ARE A(S) ONCE DAILY 10/16/2017 11/28/2017 In active diltiazem 30 mg tablet RxNorm: 435828 1 Tablet(s) PO QID 10/09/2017 10/03/2018 Inactive triamterene 37.5 mg- hydrochlorothiazide 25 mg tablet RxNorm: 536093 1 Tablet(s) PO daily 07/28/2017 01/23/2018 Inactive fluticasone 50 mcg/a ctuation nasal spray,suspension RxNorm: 0331701 2 [place] NASAL daily 07/20/2017 01/08/2019 Inactive diltiazem 30 mg tablet RxNorm: 492370 1 Tablet(s) PO QID TAKE 1 TABLET BY MOUT H FOUR TIMES DAILY 07/13/2017 10/08/2017 Inactive simvastatin 20 mg ta blet RxNorm: 915058 TAKE 1 TABLET BY MOUT H EVERY DAY 06/08/2017 12/03/2017 In active Nexium 40 mg capsule ,delayed release RxNorm: 700796 1 Capsule(s) PO daily 05/25/2017 11/27/2017 In active esomeprazole magnesi um 40 mg capsule,delayed release RxNorm: 440219 Capsule(s) TAKE 1 CAPSULE BY MOUTH DAILY 05/17/2017 02/10/2018 Inactive diltiazem 30 mg tablet RxNorm: 966696 Tablet(s) TAKE 1 TABLET BY MOUTH FOUR TI MES DAILY 05/16/2017 07/12/2017 Inactive diltiazem 30 mg tablet RxNorm: 059103 TAKE 1 TABLET BY MOUTH THREE TIMES DAILY 02/09/2017 05/15/2017 In active Zofran ODT 4 mg disi ntegrating tablet RxNorm: 088025 1 Tablet(s) PO Q6 as needed 11/16/2016 11/22/2016 In active Protonix 40 mg table t,delayed release RxNorm: 210692 1 Tablet(s) PO daily 11/16/2016 12/15/2016 In active Protonix 40 mg table t,delayed release RxNorm: 000138 1 Tablet(s) PO daily 11/16/2016 11/15/2016 In active Zofran ODT 4 mg disi ntegrating tablet RxNorm: 195383 1 Tablet(s) PO Q6 as needed 11/16/2016 11/15/2016 In active escitalopram 5 mg ta blet RxNorm: 406946 1 Tablet(s) PO QPM 10/28/2016 10/22/2017 Inactive escitalopram 5 mg ta blet RxNorm: 821082 1 Tablet(s) PO QPM 10/05/2016 10/27/2016 Inactive mupirocin 2 % topica l ointment RxNorm: 389846 1 Application TOP yoa ly APPLY TO AFFECTED AREA(S) TOPICALLY DAILY 09/07/2016 11/05/2016 Inactive Efudex 5 % topical c ream RxNorm: 142081 1 TOP BID 09/07/2016 09/16/2016 Inactive escitalopram 5 mg ta blet RxNorm: 841735 1 Tablet(s) PO QPM 09/07/2016 10/04/2016 Inactive sucralfate 100 mg/mL oral suspension RxNorm: 106845 10 Milliliter(s) per 1 gram PO QID 08/03/2016 07/28/2017 Inactive refill 3 month supply- 1gm/10ml clorazepate dipotass ium 3.75 mg tablet RxNorm: 958414 1 Tablet(s) PO QHS as needed insomnia 07/06/2016 08/14/2018 Inactive triamterene 37.5 mg- hydrochlorothiazide 25 mg tablet RxNorm: 087852 1 Tablet(s) PO daily 06/29/2016 06/23/2017 Inactive Nexium 40 mg capsule ,delayed release RxNorm: 313502 1 Capsule(s) PO daily 06/29/2016 07/05/2016 In active Bactroban 2 % topica l ointment RxNorm: 149085 APPLY TO AFFECTED ARE A(S) TOPICALLY DAILY 06/22/2016 09/06/2016 Inactive esomeprazole magnesi um 40 mg capsule,delayed release RxNorm: 823705 TAKE 1 CAPSULE BY MOUTH DAILY 06/13/2016 03/09/2017 Inactive simvastatin 20 mg ta blet RxNorm: 469086 1 Tablet(s) PO daily 05/16/2016 06/07/2017 Inactive simvastatin 20 mg ta blet RxNorm: 395305 1 Tablet(s) PO daily 05/12/2016 05/15/2016 Inactive famotidine 40 mg tablet RxNorm: 599822 TAKE 1 TABLET BY MOUTH DAILY 05/05/2016 01/29/2017 Inactive Bactroban 2 % topica l ointment RxNorm: 290096 APPLY TO AFFECTED ARE A(S) TOPICALLY DAILY 04/25/2016 05/01/2016 Inactive fluticasone 50 mcg/a ctuation nasal spray,suspension RxNorm: 9854444 2 [place] NASAL daily 03/23/2016 09/18/2016 Inactive fluticasone 50 mcg/a ctuation nasal spray,suspension RxNorm: 675670 2 [place] NASAL daily 03/07/2016 03/22/2016 Inactive Bactroban 2 % topica l ointment RxNorm: 351086 APPLY TO AFFECTED ARE A(S) TOPICALLY DAILY 02/29/2016 03/06/2016 Inactive diltiazem 30 mg tablet RxNorm: 514176 1 Tablet(s) PO TID 02/18/2016 02/08/2017 Inactive Bactroban 2 % topica l ointment RxNorm: 939050 1 Application TOP 01/08/2016 02/28/2016 Inactive clorazepate dipotass ium 3.75 mg tablet RxNorm: 286388 1 Tablet(s) PO daily 12/14/2015 06/10/2016 In active fluticasone 50 mcg/a ctuation nasal spray,suspension RxNorm: 507132 2 [place] NASAL daily 12/14/2015 02/11/2016 Inactive diltiazem 30 mg tablet RxNorm: 423494 1 Tablet(s) PO TID 09/03/2015 02/17/2016 Inactive simvastatin 20 mg ta blet RxNorm: 753730 1 Tablet(s) PO daily 08/24/2015 05/11/2016 Inactive triamterene 37.5 mg- hydrochlorothiazide 25 mg tablet RxNorm: 417872 1 Tablet(s) PO daily 07/09/2015 06/28/2016 Inactive clorazepate dipotass ium 15 mg tablet RxNorm: 033417 1 Tablet(s) PO daily 07/06/2015 07/06/2015 In active clorazepate dipotass ium 3.75 mg tablet RxNorm: 058974 1 Tablet(s) PO daily 07/06/2015 12/13/2015 In active esomeprazole magnesi um 40 mg capsule,delayed release RxNorm: 175755 1 Capsule(s) PO daily 06/26/2015 06/12/2016 Inactive famotidine 40 mg tablet RxNorm: 897399 1 Tablet(s) PO daily 06/26/2015 05/04/2016 Inactive diltiazem 30 mg tablet RxNorm: 651210 1 Tablet(s) PO TID 06/09/2015 09/02/2015 Inactive sucralfate 100 mg/mL oral suspension RxNorm: 438992 10 Milliliter(s) per 1 gram PO QID 04/28/2015 04/21/2016 Inactive refill 3 month supply- 1gm/10ml member I d [id number] sucralfate 100 mg/mL oral suspension RxNorm: 839064 10 Milliliter(s) per 1 gram PO QID 04/27/2015 04/27/2015 Inactive refill 3 month supply diltiazem 30 mg tablet RxNorm: 986540 1 Tablet(s) PO TID 02/18/2015 02/17/2015 Inactive diltiazem 30 mg tablet RxNorm: 185239 1 Tablet(s) PO TID 02/18/2015 05/18/2015 Inactive Vitamin D3 2,000 uni t tablet RxNorm: 220136 Tablet(s) PO daily No Start Date Active Nidia ODT oral RxNorm: 330259 oral No Start Date Active PreserVision Lutein oral RxNorm: [address] art Date Active Vitamin B-12 oral RxNorm: 69667 oral No Start Date Active Calcium 500 + D oral RxNorm: 648374 oral No Start Date Active ketoconazole 2 % [facility] RxNorm: 152464 1 TOP daily No Start Date Active ketoconazole 2 % [facility] RxNorm: 026671 TOP No St art Date Active melatonin 5 mg tablet RxNorm: 359035 Tablet(s) PO QHS as needed No Start Date Active vitamin B6-vitamin E -magnesium oral RxNorm: 130866 oral No S tart Date Active famotidine 40 mg tablet RxNorm: 598869 1 Tablet(s) PO daily No Start Date 06/25/2015 Inactive clorazepate dipotass ium 3.75 mg tablet RxNorm: 236190 1 Tablet(s) PO daily No Start Date 07/05/2015 Inactive Bactroban 2 % topica l ointment RxNorm: 348804 1 Application TOP No Start Date 01/07/2016 Inactive Carafate 1 gram tablet RxNorm: 307941 1 Tablet(s) PO QID No Start Date 04/26/2015 Inactive Zyrtec 10 mg tablet RxNorm: 5240346 1 Tablet(s) PO daily No Start Date 08/14/2018 Inactive esomeprazole magnesi um 40 mg capsule,delayed release RxNorm: 521987 Capsule(s) PO daily No Start Date 06/25/2015 Inactive fluticasone 50 mcg/a ctuation nasal spray,suspension RxNorm: 055537 2 [place] NASAL daily No Start Date 12/13/2015 Inactive Nexium 40 mg capsule ,delayed release RxNorm: 392708 1 Capsule(s) PO daily No Start Date 06/28/2016 Inactive triamterene 37.5 mg- hydrochlorothiazide 25 mg tablet RxNorm: 383937 1 Tablet(s) PO daily No Start Date 07/08/2015 Inactive simvastatin 20 mg ta blet RxNorm: 797822 1 Tablet(s) PO daily No Start Date 08/23/2015 Inactive Medication Administered No Medication Administered data Immunizations Vaccine Codes Date Status Influenza CVX: 141 06/21 completed Influenza CVX: 141 06/21 completed Influenza CVX: 141 06/24 completed Influenza CVX: 141 06/19 completed Influenza CVX: 141 07/26 completed Pneumococcal CVX: 33 09/2011 completed Assessments Condition Codes Effectiv e Dates Corns and callosities ICD-10: L84 ICD-9: 700 01/09/2019 Pain in left toe(s) ICD-10: M79.675 ICD-9: 729.5 01/09/2019 Pain in right toe(s) ICD-10: M79.674 ICD-9: 729.5 01/09/2019 Mixed hyperlipidemia ICD-10: E78.2 ICD-9: 272.2 01/09/2019 Essential (primary) hypertension ICD -10: I10 ICD-9: 401.9 01/09/2019 Generalized anxiety disorder ICD-10: F41.1 ICD-9: 300.02 01/09/2019 Vitamin B12 deficiency anemia due to [...] Reason For Visit Effective Dates Notes hypertension 01/09/2019 urinary urgency 12/31/2018 rash 09/05/2018 [...] Item Item Code Result Date Comp Metabolic Uvc948 NA 134 mEq/L 01/09/2019 Comp Metabolic Buy996 K 3.4 mEq/L 01/09/2019 Comp Metabolic Iht517 CL 94 mEq/L 01/09/2019 Comp Metabolic Iom305 CO2 30.0 mEq/L 01/09/2019 Comp Metabolic Pwj907 AN ION GAP 13 01/09/2019 Comp Metabolic Suy571 GL UCOSE 97 mg/dL 01/09/2019 Comp Metabolic Zdm193 Cr eat 0.7 mg/dL 01/09/2019 Comp Metabolic Zjc929 eG FR 90 ml/min/1.73m2 01/09 Comp Metabolic Dgv526 BUN 18 mg/dL 01/09/2019 Comp Metabolic Cwg955 B/ C Ratio 27.3 Ratio 01/09/2019 Comp Metabolic Eov364 CA LCIUM 9.0 mg/dL 01/09/2019 Comp Metabolic Kti238 AL K PHOS 57 U/L 01/09/2019 Comp Metabolic Eqp878 T(SGOT) 33 U/L 01/09/2019 Comp Metabolic Ihj513 AL T(SGPT) 25 U/L 01/09/2019 Comp Metabolic Otf024 BI LI T 0.6 mg/dL 01/09/2019 Comp Metabolic Bxr420 AL BUMIN 4.5 g/dL 01/09/2019 Comp Metabolic Szp703 TP RO 6.9 g/dL 01/09/2019 Comp Metabolic Kwi428 GL OB 2.4 g/dL 01/09/2019 Comp Metabolic Xci472 A/ G Ratio 1.9 Ratio 01/09/2019 Comp Metabolic Mas013 Os mo 270 mOsmo 01/09/2019 Lipid Ord30 CHOL 178 mg/dL 01/09/2019 Lipid Ord30 HDL 76.0 mg/dl 01/09/2019 Lipid Ord30 TRIG 73 mg/dL 01/09/2019 Lipid Ord30 LDL 87 mg/dL 01/09/2019 Lipid Ord30 C/HDL 2.3 Ratio 01/09/2019 B12 Bsh482 B12 >1500.00 pg/ml 01/09/2019 Tsh Ord6 TSH [...] 93.2 fl 01/09/2019 Cbc With Differential Ord2 [place]% 7.9 % 01/09/2019 Cbc With Differential Ord2 [...] 0.63 K/ul 01/09/2019 Cbc With Differential Ord2 [place] ABS# 0.5 K/ul 01/09/2019 Cbc With Differential Ord2 Eos ABS# 0.1 K/ul 01/09/2019 Cbc With Differential Ord2 Baso ABS# 0.0 K/ul 01/09/2019 Vitamin D 25 Oh Muu4037 VITAMIN D, 25 HYDROXY 64.38 ng/mL 01/09/2019 [...] 31.4 pg 04/18/2018 Cbc With Differential Ord2 [place]% 9.2 % 04/18/2018 Cbc With Differential Ord2 [...] 0.76 K/ul 04/18/2018 Cbc With Differential Ord2 [place] ABS# 0.5 K/ul 04/18/2018 Cbc With Differential [...] Ord15 CALCIUM 9.1 mg/dL 04/18/2018 Comp Metabolic Cfr674 NA 130 mEq/L 12/07/2017 Comp Metabolic How105 K 3.6 mEq/L 12/07/2017 Comp Metabolic Kmv344 CL 91 mEq/L 12/07/2017 Comp Metabolic Uep877 CO2 29.0 mEq/L 12/07/2017 Comp Metabolic Fqm767 AN ION GAP 14 12/07/2017 Comp Metabolic Skr122 GL UCOSE 105 mg/dL 12/07/2017 Comp Metabolic Lvm639 Cr eat 0.6 mg/dL 12/07/2017 Comp Metabolic Wab675 eG FR 94 ml/min/1.73m2 12/07 Comp Metabolic Tao240 BUN 15 mg/dL 12/07/2017 Comp Metabolic Zwu194 B/ C Ratio 23.4 Ratio 12/07/2017 Comp Metabolic Lmd482 CA LCIUM 9.3 mg/dL 12/07/2017 Comp Metabolic Twk467 AL K PHOS 62 U/L 12/07/2017 Comp Metabolic Ukw398 T(SGOT) 31 U/L 12/07/2017 Comp Metabolic Cxv129 AL T(SGPT) 22 U/L 12/07/2017 Comp Metabolic Acp200 BI LI T 0.4 mg/dL 12/07/2017 Comp Metabolic Txj885 AL BUMIN 4.3 g/dL 12/07/2017 Comp Metabolic Fjl027 TP RO 6.5 g/dL 12/07/2017 Comp Metabolic Cwt843 GL OB 2.2 g/dL 12/07/2017 Comp Metabolic Kwh518 A/ G Ratio 2.0 Ratio 12/07/2017 Comp Metabolic Sks156 Os mo 262 mOsmo 12/07/2017 Cbc With [...] 31.0 pg 12/07/2017 Cbc With Differential Ord2 [place]% 10.4 % 12/07/2017 Cbc With Differential Ord2 [...] 0.57 K/ul 12/07/2017 Cbc With Differential Ord2 [place] ABS# 0.5 K/ul 12/07/2017 Cbc With Differential [...] 32.3 pg 06/21/2017 Cbc With Differential Ord2 [place]% 10.1 % 06/21/2017 Cbc With Differential Ord2 [...] 0.65 K/ul 06/21/2017 Cbc With Differential Ord2 [place] ABS# 0.5 K/ul 06/21/2017 Cbc With Differential Ord2 Eos ABS# 0.2 K/ul 06/21/2017 Cbc With Differential Ord2 Baso ABS# 0.0 K/ul 06/21/2017 Comp Metabolic Nzg141 NA 133 mEq/L 06/21/2017 Comp Metabolic Hia898 K 4.0 mEq/L 06/21/2017 Comp Metabolic Pfx081 CL 94 mEq/L 06/21/2017 Comp Metabolic Wdu363 CO2 25.0 mEq/L 06/21/2017 Comp Metabolic Xwj053 AN ION GAP 18 06/21/2017 Comp Metabolic Rpf207 GL UCOSE 88 mg/dL 06/21/2017 Comp Metabolic Sjo280 Cr eat 0.6 mg/dL 06/21/2017 Comp Metabolic Hpa930 eG FR 94 ml/min/1.73m2 06/21 Comp Metabolic Idp867 BUN 16 mg/dL 06/21/2017 Comp Metabolic Xyo394 B/ C Ratio 25.0 Ratio 06/21/2017 Comp Metabolic Pik846 CA LCIUM 9.1 mg/dL 06/21/2017 Comp Metabolic Gnm329 AL K PHOS 65 U/L 06/21/2017 Comp Metabolic Ykd740 T(SGOT) 31 U/L 06/21/2017 Comp Metabolic Oqt107 AL T(SGPT) 20 U/L 06/21/2017 Comp Metabolic Hxi486 BI LI T 0.5 mg/dL 06/21/2017 Comp Metabolic Rqn624 AL BUMIN 4.3 g/dL 06/21/2017 Comp Metabolic Mad377 TP RO 6.6 g/dL 06/21/2017 Comp Metabolic Azz670 GL OB 2.3 g/dL 06/21/2017 Comp Metabolic Uxt914 A/ G Ratio 1.8 Ratio 06/21/2017 Comp Metabolic Xod918 Os mo 267 mOsmo 06/21/2017 Lipid Ord30 CHOL 188 mg/dL 06/21/2017 Lipid Ord30 HDL 77.0 mg/dl 06/21/2017 Lipid Ord30 TRIG 66 mg/dL 06/21/2017 Lipid Ord30 LDL 98 mg/dL 06/21/2017 Lipid Ord30 C/HDL 2.4 Ratio 06/21/2017 Tsh Ord6 hTSH II 1.32 uIU/mL 06/21/2017 Comp Metabolic Hsk088 NA 135 mEq/L 02/09/2017 Comp Metabolic Fgr984 K 4.0 mEq/L 02/09/2017 Comp Metabolic Gal746 CL 96 mEq/L 02/09/2017 Comp Metabolic Myj810 CO2 28.0 mEq/L 02/09/2017 Comp Metabolic Yxk766 AN ION GAP 15 02/09/2017 Comp Metabolic Zme657 GL UCOSE 101 mg/dL 02/09/2017 Comp Metabolic Hcr352 Cr eat 0.7 mg/dL 02/09/2017 Comp Metabolic Xgi137 eG FR 83 ml/min/1.73m2 02/09 Comp Metabolic Qea291 BUN 17 mg/dL 02/09/2017 Comp Metabolic Hkg410 B/ C Ratio 23.9 Ratio 02/09/2017 Comp Metabolic Lkk493 CA LCIUM 9.3 mg/dL 02/09/2017 Comp Metabolic Mts599 AL K PHOS 51 U/L 02/09/2017 Comp Metabolic Wtp412 T(SGOT) 33 U/L 02/09/2017 Comp Metabolic Dgx087 AL T(SGPT) 21 U/L 02/09/2017 Comp Metabolic Zra049 BI LI T 0.6 mg/dL 02/09/2017 Comp Metabolic Awa115 AL BUMIN 4.3 g/dL 02/09/2017 Comp Metabolic Pts560 TP RO 6.9 g/dL 02/09/2017 Comp Metabolic Ois470 GL OB 2.6 g/dL 02/09/2017 Comp Metabolic Anu167 A/ G Ratio 1.7 Ratio 02/09/2017 Comp Metabolic Ozj814 Os mo 272 mOsmo 02/09/2017 Lipid Ord30 [...] 31.8 pg 02/09/2017 Cbc With Differential Ord2 [place]% 11.3 % 02/09/2017 Cbc With Differential Ord2 [...] 0.77 K/ul 02/09/2017 Cbc With Differential Ord2 [place] ABS# 0.6 K/ul 02/09/2017 Cbc With Differential [...] 31.5 pg 03/29/2016 Cbc With Differential Ord2 [place]% 9.5 % 03/29/2016 Cbc With Differential Ord2 [...] 0.60 K/ul 03/29/2016 Cbc With Differential Ord2 [place] ABS# 0.4 K/ul 03/29/2016 Cbc With Differential Ord2 Eos ABS# 0.1 K/ul 03/29/2016 Cbc With Differential Ord2 Baso ABS# 0.0 K/ul 03/29/2016 Comp Metabolic Yib546 NA 135 mEq/L 03/29/2016 Comp Metabolic Ggt503 K 3.7 mEq/L 03/29/2016 Comp Metabolic Vlq216 CL 96 mEq/L 03/29/2016 Comp Metabolic Zsv538 CO2 30.0 mEq/L 03/29/2016 Comp Metabolic Hvh502 AN ION GAP 13 03/29/2016 Comp Metabolic The171 GL UCOSE 102 mg/dL 03/29/2016 Comp Metabolic Izb283 Cr eat 0.6 mg/dL 03/29/2016 Comp Metabolic Hfr415 eG FR 94 ml/min/1.73m2 03/29 Comp Metabolic Yty541 BUN 15 mg/dL 03/29/2016 Comp Metabolic Mqw967 B/ C Ratio 23.4 Ratio 03/29/2016 Comp Metabolic Smv851 CA LCIUM 9.1 mg/dL 03/29/2016 Comp Metabolic Uzn410 AL K PHOS 70 U/L 03/29/2016 Comp Metabolic Fpz370 T(SGOT) 35 U/L 03/29/2016 Comp Metabolic Dlr823 AL T(SGPT) 27 U/L 03/29/2016 Comp Metabolic Mrm838 BI LI T 0.5 mg/dL 03/29/2016 Comp Metabolic Yjr956 AL BUMIN 4.2 g/dL 03/29/2016 Comp Metabolic Zio550 TP RO 6.6 g/dL 03/29/2016 Comp Metabolic Fpa628 GL OB 2.4 g/dL 03/29/2016 Comp Metabolic Crc871 A/ G Ratio 1.7 Ratio 03/29/2016 Comp Metabolic Yic537 Os mo 271 mOsmo 03/29/2016 Tsh Ord6 hTSH II 1.17 uIU/mL 03/29/2016 B12 Mvz223 B12 838.00 pg/ml 09/02/2015 Tsh Ord6 hTSH [...] Ord2 RDW 15.1 % 09/02/2015 Comp Metabolic Vau902 NA 135 mEq/L 09/02/2015 Comp Metabolic Mmb628 K 3.4 mEq/L 09/02/2015 Comp Metabolic Xxz608 CL 95 mEq/L 09/02/2015 Comp Metabolic Rry859 CO2 27.0 mEq/L 09/02/2015 Comp Metabolic Ipi788 AN ION GAP 16 09/02/2015 Comp Metabolic Dgh294 GL UCOSE 94 mg/dL 09/02/2015 Comp Metabolic Dlv655 Cr eat 0.7 mg/dL 09/02/2015 Comp Metabolic Mwv031 eG FR 87 ml/min/1.73m2 09/02 Comp Metabolic Wla370 BUN 18 mg/dL 09/02/2015 Comp Metabolic Vmk728 B/ C Ratio 26.1 Ratio 09/02/2015 Comp Metabolic Jwg100 CA LCIUM 9.0 mg/dL 09/02/2015 Comp Metabolic Qvu537 AL K PHOS 67 U/L 09/02/2015 Comp Metabolic Jom902 T(SGOT) 30 U/L 09/02/2015 Comp Metabolic Dsn073 AL T(SGPT) 21 U/L 09/02/2015 Comp Metabolic Rzb603 BI LI T 0.6 mg/dL 09/02/2015 Comp Metabolic Rmv771 AL BUMIN 4.3 g/dL 09/02/2015 Comp Metabolic Ahv969 TP RO 6.8 g/dL 09/02/2015 Comp Metabolic Xwl656 GL OB 2.5 g/dL 09/02/2015 Comp Metabolic Cdo025 A/ G Ratio 1.7 Ratio 09/02/2015 Comp Metabolic Jeu805 Os mo 272 mOsmo 09/02/2015 Lipid Ord30 CHOL 181 mg/dL 09/02/2015 Lipid Ord30 HDL 66.0 mg/dl 09/02/2015 Lipid Ord30 TRIG 77 mg/dL 09/02/2015 Lipid Ord30 LDL 100 mg/dL 09/02/2015 Lipid Ord30 C/HDL 2.7 Ratio 09/02/2015 Review of Systems System Result Effective Dates Constitutional No recent illness 01/09/2019 Constitutional No [...] Procedure Codes Date TRIM SKIN LESION CPT-4: 48311 01/09/2019 TRIM SKIN LESIONS 2 TO 4 CPT-4: 87851 01/09/2019 ADMIN INFLUENZA VIRU S VAC CPT-4: G0008 06/21/2018 FLU VACC PRSV FREE I NC ANTIG CPT-4: 83064 06/21/2018 ADMIN INFLUENZA VIRU S VAC CPT-4: G0008 06/21/2017 FLU VACC PRSV FREE I NC ANTIG CPT-4: 12625 06/21/2017 ADMIN INFLUENZA VIRU S VAC CPT-4: G0008 06/24/2016 FLU VACC 4 CRISTINE 3 YRS PLUS IM Formatting Model/CDA Sections, Assigned to/Carmen Solis SNOMED CT: 91162545 CPT-4: [id number] 06/24/2016 ADMIN INFLUENZA VIRU S VAC CPT-4: G0008 06/19/2015 FLU VACC 4 CRISTINE 3 YRS PLUS IM Formatting Model/CDA Sections, Assigned to/Carmen Solis SNOMED CT: 72637275 CPT-4: 09063Rbvsyak 06/19/2015 Vital Signs Date Vital 01/09/2019 Blood Pressure 1: 132/62 Code: 8480-6 BMI: 15.8 Code: 23502-6 Heart Rate 1: 69 bpm Height: 5'2" SpO2: 98% Weight: 88 lbs 12/31/2018 Blood Pressure 1: 140/52 Code: 8480-6 BMI: 16.2 Code: 99006-2 Heart Rate 1: 70 bpm Height: 5'2" SpO2: 95% Weight: 90 lbs 09/05/2018 Blood Pressure 1: 138/74 Code: 8480-6 BMI: 16.1 Code: 05085-7 Heart Rate 1: 69 bpm Height: 5'2" SpO2: 98% Weight: 89 lbs 8 oz 08/15/2018 Blood Pressure 1: 142/72 Code: 8480-6 BMI: 16.3 Code: 39978-1 Heart Rate 1: 66 bpm Height: 5'2" SpO2: 99% Weight: 90 lbs 8 oz 05/29/2018 Blood Pressure 1: 140/70 Code: 8480-6 BMI: 16.2 Code: 14573-0 Heart Rate 1: 67 bpm Height: 5'2" SpO2: 99% Weight: 90 lbs 05/14/2018 Blood Pressure 1: 146/68 Code: 8480-6 BMI: 16.0 Code: 16576-5 Heart Rate 1: 70 bpm Height: 5'2" SpO2: 98% Weight: 89 lbs 04/18/2018 Blood Pressure 1: 126/68 Code: 8480-6 BMI: 15.7 Code: 19448-2 Heart Rate 1: 81 bpm Height: 5'2" SpO2: 99% Weight: 87 lbs 01/22/2018 Blood Pressure 1: 136/76 Code: 8480-6 BMI: 15.8 Code: 59128-7 Heart Rate 1: 73 bpm Height: 5'2" SpO2: 99% Weight: 88 lbs 01/01/2018 Blood Pressure 1: 148/76 Code: 8480-6 BMI: 15.8 Code: 93571-3 Heart Rate 1: 74 bpm Height: 5'2" SpO2: 98% Weight: 88 lbs 12/12/2017 Blood Pressure 1: 140/72 Code: 8480-6 BMI: 15.8 Code: 06421-6 Heart Rate 1: 65 bpm Height: 5'2" SpO2: 96% Weight: 88 lbs 09/13/2017 Blood Pressure 1: 138/70 Code: 8480-6 BMI: 15.9 Code: 31948-1 Heart Rate 1: 74 bpm Height: 5'2" SpO2: 99% Weight: 88 lbs 8 oz 06/21/2017 Blood Pressure 1: 122/50 Code: 8480-6 BMI: 15.3 Code: 49869-3 Heart Rate 1: 69 bpm Height: 5'2" SpO2: 99% Weight: 85 lbs 05/25/2017 Blood Pressure 1: 138/72 Code: 8480-6 Heart Rate 1: 77 bpm Height: 5'2" SpO2: 98% Weight: 05/16/2017 Blood Pressure 1: 136/78 Code: 8480-6 Heart Rate 1: 86 bpm Height: 5'2" SpO2: 98% Weight: 02/15/2017 Blood Pressure 1: 144/78 Code: 8480-6 BMI: 15.4 Code: 03462-1 Heart Rate 1: 65 bpm Height: 5'2" SpO2: 98% Weight: 85 lbs 8 oz 11/22/2016 Blood Pressure 1: 140/58 Code: 8480-6 BMI: 14.8 Code: 67528-3 Heart Rate 1: 79 bpm Height: 5'2" SpO2: 99% Weight: 82 lbs 09/15/2016 BMI: 16.0 Code: 71245-7 Height: 5'2" Weight: 89 lbs 09/07/2016 Blood Pressure 1: 130/62 Code: 8480-6 BMI: 16.2 Code: 33454-5 Heart Rate 1: 71 bpm Height: 5'2" SpO2: 98% Weight: 90 lbs 07/06/2016 Blood Pressure 1: 144/76 Code: 8480-6 BMI: 15.8 Code: 35303-4 Heart Rate 1: 78 bpm Height: 5'2" SpO2: 99% Weight: 88 lbs 04/06/2016 Blood Pressure 1: 148/58 Code: 8480-6 BMI: 16.2 Code: 89653-8 Heart Rate 1: 64 bpm Height: 5'2" SpO2: 97% Weight: 90 lbs 01/06/2016 Blood Pressure 1: 146/72 Code: 8480-6 BMI: 16.6 Code: 91211-3 Heart Rate 1: 62 bpm Height: 5'2" SpO2: 99% Weight: 92 lbs 09/02/2015 Blood Pressure 1: 132/70 Code: 8480-6 BMI: 16.6 Code: 61453-1 Heart Rate 1: 77 bpm Height: 5'2" SpO2: 98% Weight: 92 lbs 06/15/2015 Blood Pressure 1: 144/60 Code: 8480-6 BMI: 16.7 Code: 37929-4 Heart Rate 1: 66 bpm Height: 5'2" SpO2: 97% Weight: 93 lbs 03/04/2015 Blood Pressure 1: 120/80 Code: 8480-6 BMI: 15.8 Code: 65027-1 Heart Rate 1: 74 bpm Height: 5'2" Weight: 88 lbs Functional Status No Functional Status data History of Present Illness Symptom Name Status Resu lt Effective Date Notes Quality chronic 01/09/2019 None Quality primary hypert ension 01/09/2019 None Onset and Resolution o ngoing 01/09/2019 None Onset of Symptom durin g adulthood 01/09/2019 None Blood Pressure Values not checking blood pressure at home 01/09/2019 None Alleviating Factors me dication 01/09/2019 None Pertinent Findings diz ziness 01/09/2019 -weakness sometimes when she needs to [...] shoulder 01/22/2018 None shoulder pain Quality ac christy 01/22/2018 None shoulder pain Quality co nstant [...] nstant 01/01/2018 None shoulder pain Quality ac christy 01/01/2018 None shoulder pain Quality wo rsening [...] triggers 02/15/2017 None Hospital Follow Up _ Oth er: surgery follow up 11/22/2016 None hypertension [...] Advance Directive data Encounters Encounter Performer Loca tion Codes Date ([id number]) [id number] EST. P ATIENT, LEVEL IV Diagnosis: Essential [...] Corns and callosities[ICD10: L84] Anum Bradshaw MD, [facility] CPT-4: 66527 01/09/2019 06932 EST. PATIENT, LEVEL IV Diagnosis: Dysuria[ICD10: R30.0] Kala Bradshaw MD, [facility] CPT-4: 17034 12/31/2018 ([id number]) 48778 EST. P ATIENT, LEVEL IV Diagnosis: Essential (primary) hypertension[ICD10: I10] Diagnosis: Rash and other nonspecific skin eruption[ICD10: R21] Anum Bradshaw MD, [facility] CPT-4: 78925 09/05/2018 ([id number]) 07607 EST. P ATIENT, LEVEL IV Diagnosis: Essential (primary) hypertension[ICD10: I10] Diagnosis: Tinea barbae and tinea capitis[ICD10: B35.0] Diagnosis: Unsteadiness on feet[ICD10: R26.81] Diagnosis: Weakness[ICD10: R53.1] Anum Bradshaw MD, [facility] CPT-4: 69679 08/15/2018 ([id number]) 08255 EST. P ATIENT, LEVEL III Diagnosis: Rash and other nonspecific skin eruption[ICD10: R21] Diagnosis: Other allergic rhinitis[ICD10: J30.89] Diagnosis: Gastro-esophageal reflux disease without esophagitis[ICD10: K21.9] Rosalinda Bradshaw MD, [facility] CPT-4: 47573 05/29/2018 ([id number]) 55313 EST. P ATIENT, LEVEL III Diagnosis: Rash and other nonspecific skin eruption[ICD10: R21] Rosalinda Bradshaw MD, [facility] CPT-4: 27345 05/14/2018 ([id number]) 43722 EST. P ATIENT, LEVEL IV Diagnosis: Essential (primary) hypertension[ICD10: I10] Diagnosis: Underweight[ICD10: R63.6] Diagnosis: Mixed hyperlipidemia[ICD10: E78.2] Anum Bradshaw MD, [facility] CPT- 4: 87352 04/18/2018 ([id number]) 31859 EST. P ATIENT, LEVEL III Diagnosis: Bicipital tendinitis, left shoulder[ICD10: M75.22] Anum Bradshaw MD, [facility] CPT-4: 52235 01/22/2018 ([id number]) 24542 EST. P ATIENT, LEVEL III Diagnosis: Pain in right shoulder[ICD10: M25.511] Diagnosis: Bicipital tendinitis, right shoulder[ICD10: M75.21] Anum Bradshaw MD, [facility] CPT-4: 25802 01/01/2018 ([id number]) 61858 EST. P ATIENT, LEVEL IV Diagnosis: Essential (primary) hypertension[ICD10: I10] Diagnosis: Underweight[ICD10: R63.6] Diagnosis: Mixed hyperlipidemia[ICD10: E78.2] Diagnosis: Actinic keratosis[ICD10: L57.0] Anum Bradshaw MD, [facility] CPT-4: 60482 12/12/2017 ([id number]) 25641 EST. P ATIENT, LEVEL III Diagnosis: Essential (primary) hypertension[ICD10: I10] Diagnosis: Fracture of unspecified part of neck of left femur, subsequent encounter for closed fracture with routine healing[ICD10: S72.002D] Diagnosis: Underweight[ICD10: R63.6] Anum Bradshaw MD, [facility] CPT-4: 44835 09/13/2017 ([id number]) 10503 EST. P ATIENT, LEVEL IV Diagnosis: Mixed hyperlipidemia[ICD10: E78.2] Diagnosis: Essential (primary) hypertension[ICD10: I10] Diagnosis: Vitamin B12 deficiency anemia due to intrinsic factor deficiency[ICD10: D51.0] Diagnosis: Gastro-esophageal reflux disease with esophagitis[ICD10: K21.0] Diagnosis: Age-related osteoporosis without current pathological fracture[ICD10: M81.0] Diagnosis: Encounter for immunization[ICD10: Z23] Anum Bradshaw MD, [facility] CPT-4: 93615 06/21/2017 ([id number]) 53874 EST. P ATIENT, LEVEL III Diagnosis: Fracture of unspecified part of neck of left femur, subsequent encounter for closed fracture with routine healing[ICD10: S72.002D] Diagnosis: Underweight[ICD10: R63.6] Diagnosis: Gastro-esophageal reflux disease with esophagitis[ICD10: K21.0] Anum Bradshaw MD, [facility] CPT-4: 66937 05/25/2017 ([id number]) 07197 EST. P ATIENT, LEVEL IV Diagnosis: Essential (primary) hypertension[ICD10: I10] Diagnosis: Fracture of unspecified part of neck of left femur, subsequent encounter for closed fracture with routine healing[ICD10: S72.002D] Diagnosis: Generalized anxiety disorder[ICD10: F41.1] Anum Bradshaw MD, [facility] CPT-4: 78025 05/16/2017 ([id number]) 58916 EST. P ATIENT, LEVEL IV Diagnosis: Essential (primary) hypertension[ICD10: I10] Diagnosis: Mixed hyperlipidemia[ICD10: E78.2] Diagnosis: Generalized anxiety disorder[ICD10: F41.1] Anum Bradshaw MD, [facility] CPT-4: 07232 02/15/2017 ([id number]) 20930 EST. P ATIENT, LEVEL IV Diagnosis: Mixed hyperlipidemia[ICD10: E78.2] Diagnosis: Generalized anxiety disorder[ICD10: F41.1] Diagnosis: Essential (primary) hypertension[ICD10: I10] Diagnosis: Gastro-esophageal reflux disease with esophagitis[ICD10: K21.0] Anum Bradshaw MD, [facility] CPT-4: 65239 11/22/2016 11110 EST. PATIENT, LEVEL III Diagnosis: Inflamed seborrheic keratosis[ICD10: L82.0] Kala Bradshaw MD, [facility] CPT-4: 66198 09/15/2016 ([id number]) 92622 EST. P ATIENT, LEVEL IV Diagnosis: Essential (primary) hypertension[ICD10: I10] Diagnosis: Mixed hyperlipidemia[ICD10: E78.2] Diagnosis: Generalized anxiety disorder[ICD10: F41.1] Anum Bradshaw MD, [facility] CPT-4: 80319 09/07/2016 ([id number]) 37938 EST. P ATIENT, LEVEL IV Diagnosis: Essential (primary) hypertension[ICD10: I10] Diagnosis: Frequency of micturition[ICD10: R35.0] Diagnosis: Age-related osteoporosis without current pathological fracture[ICD10: M81.0] Anum Bradshaw MD, [facility] CPT-4: 01781 07/06/2016 ([id number]) 28064 EST. P ATIENT, LEVEL IV Diagnosis: Essential (primary) hypertension[ICD10: I10] Diagnosis: Mixed hyperlipidemia[ICD10: E78.2] Diagnosis: Gastro-esophageal reflux disease with esophagitis[ICD10: K21.0] Anum Bradshaw MD, [facility] CPT-4: 85354 04/06/2016 05955 EST. PATIENT, LEVEL IV Diagnosis: Essential (primary) hypertension[ICD10: I10] Diagnosis: Gastro-esophageal reflux disease with esophagitis[ICD10: K21.0] Kala Bradshaw MD, [facility] CPT-4: 03802 01/06/2016 ([id number]) 28887 EST. P ATIENT, LEVEL IV Diagnosis: Essential (primary) hypertension[ICD10: I10] Diagnosis: Gastro-esophageal reflux disease with esophagitis[ICD10: K21.0] Diagnosis: Other dietary vitamin B12 deficiency anemia[ICD10: D51.3] Diagnosis: Vitamin B12 deficiency anemia due to intrinsic factor deficiency[ICD10: D51.0] Diagnosis: Occlusion and stenosis of unspecified carotid artery[ICD10: I65.29] Anum Bradshaw MD, [facility] CPT-4: 79613 09/02/2015 ([id number]) 75208 EST. P ATIENT, LEVEL III Diagnosis: Carpal tunnel syndrome[ICD9: 354.0] Diagnosis: Inflamed seborrheic keratosis[ICD9: 702.11] [facility] CPT-4: 77339 06/15/2015 ([id number]) OFFICE [facility] - LEVEL 4 Diagnosis: ESSENTIAL HYPERTENSION[ICD9: 401.9] Diagnosis: ESOPHAGEAL REFLUX[ICD9: 530.81] Diagnosis: HYPERLIPIDEMIA[ICD9: 272.4] [facility] CPT-4: 24677 03/04/2015 Plan of Care Planned Activity Notes C odes Status Date Visit Plan: Hypertension - well con trolled - continue with current medications, continue with no added salt diet. Pt has been encouraged to exercise daily. The pt has been advised to call the office if there are any acute concerns about change in blood pressure readings at home. Hunt on toe - debrided with scalpel today. [...] caloric intake. 01/09/2019 Appointment: Anum Bradshaw WPtel: [address] [place], [place] [id number] (15 min) Moderate 01/09/2019 Patient Education: Patient Medication Summary Completed 01/09/2019 Patient Education: Hypertension Completed 01/09/2019 Patient Education: Cholesterol Management Completed 01/09/2019 Visit Plan: UTI - pt with positive urinalysis - culture sent if appropriate. Antibiotic electronically prescribed to pt's pharmacy of choice. Pt to call if symptoms do not improve. 12/31/2018 Appointment: Kala Sanches WPtel: [facility]5 [facility] (30 min) Complex 12/31/2018 Patient Education: Patient [...] for betamethasone. 09/05/2018 Appointment: Anum Bradshaw WPtel: [facility]9 [facility] (15 min) Moderate 09/05/2018 Patient Education: Patient Medication Summary Completed 09/05/2018 Patient Education: Hypertension Completed 09/05/2018 Visit Plan: Hypertension - well con trolled [...] not improving. 08/15/2018 Appointment: Anum Bradshaw WPtel: [facility]5 [facility] (15 min) Moderate 08/15/2018 Patient Education: Patient Medication Summary Completed 08/15/2018 Patient Education: Hypertension Completed 08/15/2018 Appointment: Anum Bradshaw WPtel: [facility]3 [facility] (15 min) Moderate 2018 Appointment: Injection 06/21/2018 [...] shampoo 05/29/2018 Appointment: Rosalinda Bermudez WPtel: [phone] (30 min) Complex 05/29/2018 Patient Education: Patient [...] if needed 05/14/2018 Appointment: Rosalinda Bermudez WPtel: [facility] [address] (30 min) Complex 05/14/2018 Patient Education: Patient [...] to medications. 04/18/2018 Appointment: Anum Bradshaw WPtel: [phone] [facility] [place] (15 min) Moderate 04/18/2018 Patient Education: Patient Medication Summary Completed 04/18/2018 Appointment: Injection 03/08/2018 Visit Plan: Left shoulder pain - bi cep tendonitis - continue with physical therapy at [facility]. Use voltaren gel on left shoulder now - continue with therapy on right shoulder. 01/22/2018 Appointment: Anum Bradshaw WPtel: [phone] [facility] [place] (15 min) Moderate 01/22/2018 Patient Education: [...] tendonitis - referral to physical therapy at [facility] 01/01/2018 Appointment: [phone] [place] (15 min) Moderate 01/01/2018 Patient Education: Patient [...] 2 weeks 12/12/2017 Appointment: Anum Bradshaw [facility]el[phone] (15 min) Moderate 12/12/2017 Patient Education: Patient [...] - healing. 09/13/2017 Appointment: Anum Bradshaw [facility]Ptel[phone] (15 min) Moderate 09/13/2017 Patient Education: Patient [...] not improving. 06/21/2017 Appointment: [facility] Bradshaw [facility]Ptel: [phone] (15 min) Moderate 06/21/2017 Patient Education: Patient Medication Summary Completed 06/21/2017 Visit Plan: Esophageal Reflux - the patient has been taking medication as directed and her symptoms are improved. Hip fracture - continue with supportive care, nonweight bearing. Underweight - increase protein intake, higher calorie diet, use wheelchair to decrease excessive caloric expenditure. 05/25/2017 Appointment: Anum Bradshaw [facility]Ptel: [phone] (15 min) Moderate 05/25/2017 Patient Education: Patient [...] current medications. 05/16/2017 Appointment: Anum Bradshaw WPtel: [phone] [facility] (15 min) Moderate 05/16/2017 Patient Education: Patient [...] to medications. 02/15/2017 Appointment: Anum Bradshaw [facility]Ptel: [phone] [place] (15 min) Moderate 02/15/2017 Patient Education: Patient Medication Summary Completed 02/15/2017 Patient Education: Hypertension Completed 02/15/2017 Care Plan: Referral Order SNOMED-CT : [id number] Pending 02/15/2017 Appointment: Anum Bradshaw WPtel: [phone] (15 min) Moderate 01/11/2017 Visit Plan: Hypertension [...] current treatment 11/22/2016 Appointment: Anum Bradshaw [facility]Ptel: [phone] (15 min) Moderate 11/22/2016 Patient Education: Patient Medication Summary Completed 11/22/2016 Patient Education: Hypertension Completed 11/22/2016 Appointment: [phone] [place] (30 min) Complex 09/16/2016 Visit Plan: [...] symptoms. 09/07/2016 Appointment: Anum Bradshaw WPtel: [phone] [facility] (15 min) Moderate 09/07/2016 Patient Education: Patient Medication Summary Completed 09/07/2016 Patient Education: Hypertension Completed 09/07/2016 Visit Plan: Hypertension - well con nataliaed - continue with current medications, continue with [...] ua negative 07/06/2016 Appointment: Anum Bradshaw WPtel: [facility]8 [facility] (15 min) Moderate 07/06/2016 Patient Education: Patient Medication Summary Completed 07/06/2016 Patient Education: Hypertension Completed 07/06/2016 Appointment: Injection 06/24/2016 Patient Education: Patient Medication Summary Completed 06/24/2016 Visit Plan: Hypertension - well con garrettlled - continue with current medications, continue with [...] not improving. 04/06/2016 Appointment: Anum Bradshaw WPtel: [facility] (15 min) Moderate 04/06/2016 Patient Education: Patient [...] 09/02/2015 Care Plan: Referral Order SNOMED-CT : [id number] Ordered 09/02/2015 Appointment: Injection 06/19/2015 Patient Education: [...] the symptoms are not improving. 03/04/2015 Appointment: Anmu Bradshaw WPtel: [phone] [place] ([place] New Patient 03/04/2015 Patient Education: [...] tendonitis - referral to physical therapy at [facility] . Lesion to left joleen e of nose - pt had been prescribed effudex cream but has been afraid to apply it - given instructions for application, pt is to call if pustular drainage, or any other acute concerns. Forteo - the daily o steoporosis injection Prolia - the every 3 month osteoporosis injection . Hypertension - well controlled - annamaria [...] prolia Frequency of urination - ua negative take the carafate at bedtime - continue [...] Anxiety - stable - continue current treatment . Hypertension - wel l controlled - continue with current medications, continue with no added salt diet. Pt has been encouraged to exercise daily. The pt has been advised to call the office if there are any acute concerns about change in blood pressure readings at home. Underweight - improving - continue with high protein diet. Hip fracture - healing. . Hypertension - wel l controlled - continue with current medications, continue with no added salt diet. Pt has been encouraged to exercise daily. The pt has been advised to call the office if there are any acute concerns about change in blood pressure readings at home. Hunt on toe - debrided with scalpel today. [...] on lexapro 5mg and monitor symptoms. . Rash-scalp -tinea vs psoriasis -scalp scraping sent for culture -rx sent to patient's pharmacy and instructed on use-follow up in 2 weeks -sooner if needed . Rash-scalp -tinea vs psoriasis -scalp scraping sent for culture -rx sent to patient's pharmacy and instructed on use-follow up in 2 weeks -sooner if needed . Carpel tunnel synd jorge-recommend wrist brace to left wrist-anti inflammatories as directed-call if pain does not resolve or if any worse. Cryotherapy to inflamed SK-right neck, right upper arm and left thigh,-wound Instructions - Pt was instructed to keep the wound clean, wash with antibacterial soap, use triple antibiotic ointment, call if redness, pustular drainage, or any other acute concerns. . Left shoulder pain - bicep tendonitis - continue with physical therapy at [facility]. Use voltaren gel on left shoulder now - continue with therapy on right shoulder. . Hypertension - The patient has been [...] use this twice daily x 2 weeks benadryl cream or hy drocortisone (cortisone 10) [...] office if the symptoms are not improving. esomeprazole - the g eneric name of [...] situational exposure. No change in current medications. . Hypertension - wel l controlled [...] if the symptoms are not improving. . UTI - pt with posi tive urinalysis - culture sent if appropriate. Antibiotic electronically prescribed to pt's pharmacy of choice. Pt to call if symptoms do not improve. Monitor your blood p ressure at home [...] ketoconazole cream and call if not improving. INCREASE CARAFATE SWITCH TO NIDIA . Esophageal [...] spray. Rash-fungal culture pending-symptoms improved-continue ketoconazole shampoo . Esophageal Reflux - the patient has been taking medication as directed and her symptoms are improved. Hip fracture - continue with supportive care, nonweight bearing. Underweight - increase protein intake, higher calorie diet, use wheelchair to decrease excessive caloric expenditure. . Hypertension - wel l controlled - continue with current medications, continue with no added salt diet. Pt has been encouraged to exercise daily. The pt has been advised to call the office if there are any acute concerns about change in blood pressure readings at home. Rash on posterior scalp - rx for betamethasone.
--- OUTSIDE RECORDS SUMMARY | 2019-12-29 11:12 | XMS REPORT | CCD ---
Author Author Ashley Bradshaw Organization [facility] Address [address] [place] [address] Phone Care Team Providers Care Regulatory Affairs Consultant Name Role Phone PP Unavailable CCM Unavailable Summary Purpose Interface Exchange Insurance Providers Payer name Policy type / Coverage type Covered alliance party ID Effective Begin Date Effective End Date WPS Medicare Part B Medicare Part B [id number] Unknown Unknown CIGNA Medicare Part B [id number] Unknown Unknown Family history Father Diagnosis Age At Onset Coronary Artery Disease Unknown Mother Diagnosis Age At Onset Anemia Unknown Skin cancer Unknown Hypertension Unknown Cancer Unknown Breast cancer Unknown Social History Social History Element Codes Description Effective Dates Marital status Unknown M arrkimberly Shahram 03/04/2015 Number of children Unknown 3 03/04/[address]: 656448109 Never smoker 03/04/[address]: 143335471 Never drinks alcohol 03/04/2015 Allergies, Adverse Reactions, Alerts Substance Reaction Codes Entered Date Inactivated Date Status NEOSPORIN RxNorm: 579944 01/06/2016 No Inactive Date Active Past Medical [...] ketoconazole 2 % top ical cream RxNorm: 374470 APPLY TWICE A DAY TO POSTERIOR SCALP FOR 2 WEEKS OR UNTIL THE SKIN IS HEALED 01/22/2019 02/08/2019 Active Bactroban 2 % topica l ointment RxNorm: 592843 APPLY TO AFFECTED ARE A(S) TOPICALLY DAILY 01/21/2019 No Stop Date Active ketoconazole 2 % sha mpoo RxNorm: 046180 1 Application TOP BIW 01/21/2019 No Stop Date Active escitalopram 5 mg ta blet RxNorm: 521573 TAKE 1 TABLET BY MOUT H EVERY EVENING 01/14/2019 01/08/2020 Ac tive simvastatin 20 mg ta blet RxNorm: 728748 TAKE 1 TABLET BY MOUT H EVERY DAY 01/14/2019 01/08/2020 Ac tive Keflex 500 mg capsule RxNorm: 815723 1 Capsule(s) PO TID 12/31/2018 01/09/2019 Inactive Pyridium 200 mg tablet RxNorm: 4074307 1 Tablet(s) PO TID 12/31/2018 01/01/2019 Inactive esomeprazole magnesi um 40 mg capsule,delayed release RxNorm: 281386 Capsule(s) TAKE 1 CAPSULE BY MOUTH DAILY 11/27/2018 02/19/2020 Active wants to pay henry Zantac 150 mg tablet RxNorm: 677733 1 Tablet(s) PO BID 11/02/2018 11/26/2018 Inactive Zantac 150 mg tablet RxNorm: 057115 1 Tablet(s) PO BID 11/02/2018 11/01/2018 Inactive sucralfate 100 mg/mL oral suspension RxNorm: 323320 10 Milliliter(s) per 1 gram PO QID 10/08/2018 10/02/2019 Active diltiazem 30 mg tablet RxNorm: 126619 1 Tablet(s) PO QID 10/08/2018 10/02/2019 Active betamethasone nasir te 0.1 % topical cream RxNorm: 185321 1 Application TOP BID 09/05/2018 11/03/2018 In active ketoconazole 2 % top ical cream RxNorm: 635340 1 Application TOP BID to posterior scalp x 2 weeks or until the skin is healed 08/15/2018 08/28/2018 Inactive triamterene 37.5 mg- hydrochlorothiazide 25 mg tablet RxNorm: 254087 Tablet(s) 1 Tablet(s) PO daily 07/12/2018 01/07/2019 Inactive PLEASE SEND REFILL REQUESTS ELECTRONICALLY simvastatin 20 mg ta blet RxNorm: 077877 TAKE 1 TABLET BY MOUT H EVERY DAY 07/12/2018 01/07/2019 In active ketoconazole 2 % sha mpoo RxNorm: 711085 1 Application TOP BIW 05/14/2018 01/20/2019 Inactive simvastatin 20 mg ta blet RxNorm: 247228 TAKE 1 TABLET BY MOUT H EVERY DAY 03/01/2018 07/11/2018 In active triamterene 37.5 mg- hydrochlorothiazide 25 mg tablet RxNorm: 973829 Tablet(s) 1 Tablet(s) PO daily 02/06/2018 07/11/2018 Inactive PLEASE SEND REFILL REQUESTS ELECTRONICALLY Voltaren 1 % topical gel RxNorm: 058373 2 Gram(s) TOP TID to shoulders 01/01/2018 04/30/2018 In active sucralfate 100 mg/mL oral suspension RxNorm: 267383 10 Milliliter(s) per 1 gram PO QID 12/12/2017 06/09/2018 Inactive refill 3 month supply- 1gm/10ml simvastatin 20 mg ta blet RxNorm: 183270 TAKE 1 TABLET BY MOUT H EVERY DAY 12/04/2017 02/28/2018 In active escitalopram 5 mg ta blet RxNorm: 566226 1 Tablet(s) PO QPM 10/26/2017 01/13/2019 Inactive esomeprazole magnesi um 40 mg capsule,delayed release RxNorm: 172874 TAKE 1 CAPSULE BY MOUTH DAILY 10/26/2017 11/01/2018 Inactive mupirocin 2 % topica l ointment RxNorm: 789493 APPLY TO AFFECTED ARE A(S) ONCE DAILY 10/16/2017 11/28/2017 In active diltiazem 30 mg tablet RxNorm: 600339 1 Tablet(s) PO QID 10/09/2017 10/03/2018 Inactive triamterene 37.5 mg- hydrochlorothiazide 25 mg tablet RxNorm: 614072 1 Tablet(s) PO daily 07/28/2017 01/23/2018 Inactive fluticasone 50 mcg/a ctuation nasal spray,suspension RxNorm: 5947613 2 [place] NASAL daily 07/20/2017 01/08/2019 Inactive diltiazem 30 mg tablet RxNorm: 464025 1 Tablet(s) PO QID TAKE 1 TABLET BY MOUT H FOUR TIMES DAILY 07/13/2017 10/08/2017 Inactive simvastatin 20 mg ta blet RxNorm: 758767 TAKE 1 TABLET BY MOUT H EVERY DAY 06/08/2017 12/03/2017 In active Nexium 40 mg capsule ,delayed release RxNorm: 593472 1 Capsule(s) PO daily 05/25/2017 11/27/2017 In active esomeprazole magnesi um 40 mg capsule,delayed release RxNorm: 052789 Capsule(s) TAKE 1 CAPSULE BY MOUTH DAILY 05/17/2017 02/10/2018 Inactive diltiazem 30 mg tablet RxNorm: 817159 Tablet(s) TAKE 1 TABLET BY MOUTH FOUR TI MES DAILY 05/16/2017 07/12/2017 Inactive diltiazem 30 mg tablet RxNorm: 161857 TAKE 1 TABLET BY MOUTH THREE TIMES DAILY 02/09/2017 05/15/2017 In active Zofran ODT 4 mg disi ntegrating tablet RxNorm: 077012 1 Tablet(s) PO Q6 as needed 11/16/2016 11/22/2016 In active Protonix 40 mg table t,delayed release RxNorm: 598894 1 Tablet(s) PO daily 11/16/2016 12/15/2016 In active Protonix 40 mg table t,delayed release RxNorm: 180831 1 Tablet(s) PO daily 11/16/2016 11/15/2016 In active Zofran ODT 4 mg disi ntegrating tablet RxNorm: 675474 1 Tablet(s) PO Q6 as needed 11/16/2016 11/15/2016 In active escitalopram 5 mg ta blet RxNorm: 062045 1 Tablet(s) PO QPM 10/28/2016 10/22/2017 Inactive escitalopram 5 mg ta blet RxNorm: 294610 1 Tablet(s) PO QPM 10/05/2016 10/27/2016 Inactive mupirocin 2 % topica l ointment RxNorm: 086464 1 Application TOP yao ly APPLY TO AFFECTED AREA(S) TOPICALLY DAILY 09/07/2016 11/05/2016 Inactive Efudex 5 % topical c ream RxNorm: 031479 1 TOP BID 09/07/2016 09/16/2016 Inactive escitalopram 5 mg ta blet RxNorm: 242720 1 Tablet(s) PO QPM 09/07/2016 10/04/2016 Inactive sucralfate 100 mg/mL oral suspension RxNorm: 636567 10 Milliliter(s) per 1 gram PO QID 08/03/2016 07/28/2017 Inactive refill 3 month supply- 1gm/10ml clorazepate dipotass ium 3.75 mg tablet RxNorm: 472778 1 Tablet(s) PO QHS as needed insomnia 07/06/2016 08/14/2018 Inactive triamterene 37.5 mg- hydrochlorothiazide 25 mg tablet RxNorm: 274426 1 Tablet(s) PO daily 06/29/2016 06/23/2017 Inactive Nexium 40 mg capsule ,delayed release RxNorm: 685303 1 Capsule(s) PO daily 06/29/2016 07/05/2016 In active Bactroban 2 % topica l ointment RxNorm: 559609 APPLY TO AFFECTED ARE A(S) TOPICALLY DAILY 06/22/2016 09/06/2016 Inactive esomeprazole magnesi um 40 mg capsule,delayed release RxNorm: 027542 TAKE 1 CAPSULE BY MOUTH DAILY 06/13/2016 03/09/2017 Inactive simvastatin 20 mg ta blet RxNorm: 346374 1 Tablet(s) PO daily 05/16/2016 06/07/2017 Inactive simvastatin 20 mg ta blet RxNorm: 093660 1 Tablet(s) PO daily 05/12/2016 05/15/2016 Inactive famotidine 40 mg tablet RxNorm: 406620 TAKE 1 TABLET BY MOUTH DAILY 05/05/2016 01/29/2017 Inactive Bactroban 2 % topica l ointment RxNorm: 010852 APPLY TO AFFECTED ARE A(S) TOPICALLY DAILY 04/25/2016 05/01/2016 Inactive fluticasone 50 mcg/a ctuation nasal spray,suspension RxNorm: 6627433 2 [place] NASAL daily 03/23/2016 09/18/2016 Inactive fluticasone 50 mcg/a ctuation nasal spray,suspension RxNorm: 004622 2 [place] NASAL daily 03/07/2016 03/22/2016 Inactive Bactroban 2 % topica l ointment RxNorm: 558195 APPLY TO AFFECTED ARE A(S) TOPICALLY DAILY 02/29/2016 03/06/2016 Inactive diltiazem 30 mg tablet RxNorm: 480415 1 Tablet(s) PO TID 02/18/2016 02/08/2017 Inactive Bactroban 2 % topica l ointment RxNorm: 174406 1 Application TOP 01/08/2016 02/28/2016 Inactive clorazepate dipotass ium 3.75 mg tablet RxNorm: 104644 1 Tablet(s) PO daily 12/14/2015 06/10/2016 In active fluticasone 50 mcg/a ctuation nasal spray,suspension RxNorm: 605144 2 [place] NASAL daily 12/14/2015 02/11/2016 Inactive diltiazem 30 mg tablet RxNorm: 704501 1 Tablet(s) PO TID 09/03/2015 02/17/2016 Inactive simvastatin 20 mg ta blet RxNorm: 609709 1 Tablet(s) PO daily 08/24/2015 05/11/2016 Inactive triamterene 37.5 mg- hydrochlorothiazide 25 mg tablet RxNorm: 733022 1 Tablet(s) PO daily 07/09/2015 06/28/2016 Inactive clorazepate dipotass ium 15 mg tablet RxNorm: 956173 1 Tablet(s) PO daily 07/06/2015 07/06/2015 In active clorazepate dipotass ium 3.75 mg tablet RxNorm: 142343 1 Tablet(s) PO daily 07/06/2015 12/13/2015 In active esomeprazole magnesi um 40 mg capsule,delayed release RxNorm: 302142 1 Capsule(s) PO daily 06/26/2015 06/12/2016 Inactive famotidine 40 mg tablet RxNorm: 273795 1 Tablet(s) PO daily 06/26/2015 05/04/2016 Inactive diltiazem 30 mg tablet RxNorm: 832994 1 Tablet(s) PO TID 06/09/2015 09/02/2015 Inactive sucralfate 100 mg/mL oral suspension RxNorm: 306340 10 Milliliter(s) per 1 gram PO QID 04/28/2015 04/21/2016 Inactive refill 3 month supply- 1gm/10ml member I d [id number] sucralfate 100 mg/mL oral suspension RxNorm: 337285 10 Milliliter(s) per 1 gram PO QID 04/27/2015 04/27/2015 Inactive refill 3 month supply diltiazem 30 mg tablet RxNorm: 526354 1 Tablet(s) PO TID 02/18/2015 02/17/2015 Inactive diltiazem 30 mg tablet RxNorm: 888459 1 Tablet(s) PO TID 02/18/2015 05/18/2015 Inactive Vitamin D3 2,000 uni t tablet RxNorm: 122017 Tablet(s) PO daily No Start Date Active Nidia ODT oral RxNorm: 889495 oral No Start Date Active PreserVision Lutein oral RxNorm: [address] art Date Active Vitamin B-12 oral RxNorm: 61174 oral No Start Date Active Calcium 500 + D oral RxNorm: 455842 oral No Start Date Active ketoconazole 2 % [facility] mpoo RxNorm: 776340 1 TOP daily No Start Date Active ketoconazole 2 % [facility] mpoo RxNorm: 383591 TOP No St art Date Active melatonin 5 mg tablet RxNorm: 211021 Tablet(s) PO QHS as needed No Start Date Active vitamin B6-vitamin E -magnesium oral RxNorm: 568385 oral No S tart Date Active famotidine 40 mg tablet RxNorm: 191539 1 Tablet(s) PO daily No Start Date 06/25/2015 Inactive clorazepate dipotass ium 3.75 mg tablet RxNorm: 310273 1 Tablet(s) PO daily No Start Date 07/05/2015 Inactive Bactroban 2 % topica l ointment RxNorm: 892896 1 Application TOP No Start Date 01/07/2016 Inactive Carafate 1 gram tablet RxNorm: 487968 1 Tablet(s) PO QID No Start Date 04/26/2015 Inactive Zyrtec 10 mg tablet RxNorm: 6913517 1 Tablet(s) PO daily No Start Date 08/14/2018 Inactive esomeprazole magnesi um 40 mg capsule,delayed release RxNorm: 015246 Capsule(s) PO daily No Start Date 06/25/2015 Inactive fluticasone 50 mcg/a ctuation nasal spray,suspension RxNorm: 100696 2 [place] NASAL daily No Start Date 12/13/2015 Inactive Nexium 40 mg capsule ,delayed release RxNorm: 031578 1 Capsule(s) PO daily No Start Date 06/28/2016 Inactive triamterene 37.5 mg- hydrochlorothiazide 25 mg tablet RxNorm: 278623 1 Tablet(s) PO daily No Start Date 07/08/2015 Inactive simvastatin 20 mg ta blet RxNorm: 846685 1 Tablet(s) PO daily No Start Date [...] Item Item Code Result Date Comp Metabolic Wkt922 NA 134 mEq/L 01/09/2019 Comp Metabolic Ybd322 K 3.4 mEq/L 01/09/2019 Comp Metabolic Dwu578 CL 94 mEq/L 01/09/2019 Comp Metabolic Nmz264 CO2 30.0 mEq/L 01/09/2019 Comp Metabolic Xlt539 AN ION GAP 13 01/09/2019 Comp Metabolic Lgi923 GL UCOSE 97 mg/dL 01/09/2019 Comp Metabolic Nnc326 Cr eat 0.7 mg/dL 01/09/2019 Comp Metabolic Ljl574 eG FR 90 ml/min/1.73m2 01/09 Comp Metabolic Htb164 BUN 18 mg/dL 01/09/2019 Comp Metabolic Nvo900 B/ C Ratio 27.3 Ratio 01/09/2019 Comp Metabolic Vyl376 CA LCIUM 9.0 mg/dL 01/09/2019 Comp Metabolic Swy282 AL K PHOS 57 U/L 01/09/2019 Comp Metabolic Xgy751 T(SGOT) 33 U/L 01/09/2019 Comp Metabolic Dbq996 AL T(SGPT) 25 U/L 01/09/2019 Comp Metabolic Yon566 BI LI T 0.6 mg/dL 01/09/2019 Comp Metabolic Cce430 AL BUMIN 4.5 g/dL 01/09/2019 Comp Metabolic Xcf993 TP RO 6.9 g/dL 01/09/2019 Comp Metabolic Bte870 GL OB 2.4 g/dL 01/09/2019 Comp Metabolic Kpn831 A/ G Ratio 1.9 Ratio 01/09/2019 Comp Metabolic Xxa313 Os mo 270 mOsmo 01/09/2019 Lipid Ord30 CHOL 178 mg/dL 01/09/2019 Lipid Ord30 HDL 76.0 mg/dl 01/09/2019 Lipid Ord30 TRIG 73 mg/dL 01/09/2019 Lipid Ord30 LDL 87 mg/dL 01/09/2019 Lipid Ord30 C/HDL 2.3 Ratio 01/09/2019 B12 Nwy843 B12 >1500.00 pg/ml 01/09/2019 Tsh Ord6 TSH [...] 93.2 fl 01/09/2019 Cbc With Differential Ord2 [place]% 7.9 % 01/09/2019 Cbc With Differential Ord2 [...] 0.63 K/ul 01/09/2019 Cbc With Differential Ord2 [place] ABS# 0.5 K/ul 01/09/2019 Cbc With Differential Ord2 Eos ABS# 0.1 K/ul 01/09/2019 Cbc With Differential Ord2 Baso ABS# 0.0 K/ul 01/09/2019 Vitamin D 25 Oh Isi2767 VITAMIN D, 25 HYDROXY 64.38 ng/mL 01/09/2019 [...] 31.4 pg 04/18/2018 Cbc With Differential Ord2 [place]% 9.2 % 04/18/2018 Cbc With Differential Ord2 [...] 0.76 K/ul 04/18/2018 Cbc With Differential Ord2 [place] ABS# 0.5 K/ul 04/18/2018 Cbc With Differential [...] Ord15 CALCIUM 9.1 mg/dL 04/18/2018 Comp Metabolic Cjg476 NA 130 mEq/L 12/07/2017 Comp Metabolic Vjp519 K 3.6 mEq/L 12/07/2017 Comp Metabolic Dlm587 CL 91 mEq/L 12/07/2017 Comp Metabolic Mfr578 CO2 29.0 mEq/L 12/07/2017 Comp Metabolic Uld588 AN ION GAP 14 12/07/2017 Comp Metabolic Dpj082 GL UCOSE 105 mg/dL 12/07/2017 Comp Metabolic Fpt298 Cr eat 0.6 mg/dL 12/07/2017 Comp Metabolic Xde825 eG FR 94 ml/min/1.73m2 12/07 Comp Metabolic Drw824 BUN 15 mg/dL 12/07/2017 Comp Metabolic Ows618 B/ C Ratio 23.4 Ratio 12/07/2017 Comp Metabolic Khi463 CA LCIUM 9.3 mg/dL 12/07/2017 Comp Metabolic Jny279 AL K PHOS 62 U/L 12/07/2017 Comp Metabolic Rnm920 T(SGOT) 31 U/L 12/07/2017 Comp Metabolic Iiv095 AL T(SGPT) 22 U/L 12/07/2017 Comp Metabolic Zpt973 BI LI T 0.4 mg/dL 12/07/2017 Comp Metabolic Pya693 AL BUMIN 4.3 g/dL 12/07/2017 Comp Metabolic Xoc594 TP RO 6.5 g/dL 12/07/2017 Comp Metabolic Fzn638 GL OB 2.2 g/dL 12/07/2017 Comp Metabolic Vfm898 A/ G Ratio 2.0 Ratio 12/07/2017 Comp Metabolic Pnu424 Os mo 262 mOsmo 12/07/2017 Cbc With [...] 31.0 pg 12/07/2017 Cbc With Differential Ord2 [place]% 10.4 % 12/07/2017 Cbc With Differential Ord2 [...] 0.57 K/ul 12/07/2017 Cbc With Differential Ord2 [place] ABS# 0.5 K/ul 12/07/2017 Cbc With Differential [...] 32.3 pg 06/21/2017 Cbc With Differential Ord2 [place]% 10.1 % 06/21/2017 Cbc With Differential Ord2 [...] 0.65 K/ul 06/21/2017 Cbc With Differential Ord2 [place] ABS# 0.5 K/ul 06/21/2017 Cbc With Differential Ord2 Eos ABS# 0.2 K/ul 06/21/2017 Cbc With Differential Ord2 Baso ABS# 0.0 K/ul 06/21/2017 Comp Metabolic Lat131 NA 133 mEq/L 06/21/2017 Comp Metabolic Vcg867 K 4.0 mEq/L 06/21/2017 Comp Metabolic Ikp261 CL 94 mEq/L 06/21/2017 Comp Metabolic Ohu587 CO2 25.0 mEq/L 06/21/2017 Comp Metabolic Zhj305 AN ION GAP 18 06/21/2017 Comp Metabolic Arh030 GL UCOSE 88 mg/dL 06/21/2017 Comp Metabolic Ufq634 Cr eat 0.6 mg/dL 06/21/2017 Comp Metabolic Ktf175 eG FR 94 ml/min/1.73m2 06/21 Comp Metabolic Bbf117 BUN 16 mg/dL 06/21/2017 Comp Metabolic Nbt644 B/ C Ratio 25.0 Ratio 06/21/2017 Comp Metabolic Xsm658 CA LCIUM 9.1 mg/dL 06/21/2017 Comp Metabolic Pzt883 AL K PHOS 65 U/L 06/21/2017 Comp Metabolic Lzj490 T(SGOT) 31 U/L 06/21/2017 Comp Metabolic Ivl331 AL T(SGPT) 20 U/L 06/21/2017 Comp Metabolic Elv151 BI LI T 0.5 mg/dL 06/21/2017 Comp Metabolic Ojj185 AL BUMIN 4.3 g/dL 06/21/2017 Comp Metabolic Ojp196 TP RO 6.6 g/dL 06/21/2017 Comp Metabolic Fzr783 GL OB 2.3 g/dL 06/21/2017 Comp Metabolic Wst982 A/ G Ratio 1.8 Ratio 06/21/2017 Comp Metabolic Glm110 Os mo 267 mOsmo 06/21/2017 Lipid Ord30 CHOL 188 mg/dL 06/21/2017 Lipid Ord30 HDL 77.0 mg/dl 06/21/2017 Lipid Ord30 TRIG 66 mg/dL 06/21/2017 Lipid Ord30 LDL 98 mg/dL 06/21/2017 Lipid Ord30 C/HDL 2.4 Ratio 06/21/2017 Tsh Ord6 hTSH II 1.32 uIU/mL 06/21/2017 Comp Metabolic Yuv300 NA 135 mEq/L 02/09/2017 Comp Metabolic Bdm012 K 4.0 mEq/L 02/09/2017 Comp Metabolic Zwn354 CL 96 mEq/L 02/09/2017 Comp Metabolic Rxm275 CO2 28.0 mEq/L 02/09/2017 Comp Metabolic Qvd738 AN ION GAP 15 02/09/2017 Comp Metabolic Nom614 GL UCOSE 101 mg/dL 02/09/2017 Comp Metabolic Fiu179 Cr eat 0.7 mg/dL 02/09/2017 Comp Metabolic Tmu385 eG FR 83 ml/min/1.73m2 02/09 Comp Metabolic Zro573 BUN 17 mg/dL 02/09/2017 Comp Metabolic Kbk755 B/ C Ratio 23.9 Ratio 02/09/2017 Comp Metabolic Omg297 CA LCIUM 9.3 mg/dL 02/09/2017 Comp Metabolic Yjc580 AL K PHOS 51 U/L 02/09/2017 Comp Metabolic Xck526 T(SGOT) 33 U/L 02/09/2017 Comp Metabolic Pto989 AL T(SGPT) 21 U/L 02/09/2017 Comp Metabolic Bkq812 BI LI T 0.6 mg/dL 02/09/2017 Comp Metabolic Kpp966 AL BUMIN 4.3 g/dL 02/09/2017 Comp Metabolic Drp301 TP RO 6.9 g/dL 02/09/2017 Comp Metabolic Sor052 GL OB 2.6 g/dL 02/09/2017 Comp Metabolic Juv827 A/ G Ratio 1.7 Ratio 02/09/2017 Comp Metabolic Oph942 Os mo 272 mOsmo 02/09/2017 Lipid Ord30 [...] 31.8 pg 02/09/2017 Cbc With Differential Ord2 [place]% 11.3 % 02/09/2017 Cbc With Differential Ord2 [...] 0.77 K/ul 02/09/2017 Cbc With Differential Ord2 [place] ABS# 0.6 K/ul 02/09/2017 Cbc With Differential [...] 31.5 pg 03/29/2016 Cbc With Differential Ord2 [place]% 9.5 % 03/29/2016 Cbc With Differential Ord2 [...] 0.60 K/ul 03/29/2016 Cbc With Differential Ord2 [place] ABS# 0.4 K/ul 03/29/2016 Cbc With Differential Ord2 Eos ABS# 0.1 K/ul 03/29/2016 Cbc With Differential Ord2 Baso ABS# 0.0 K/ul 03/29/2016 Comp Metabolic Awl701 NA 135 mEq/L 03/29/2016 Comp Metabolic Ccl463 K 3.7 mEq/L 03/29/2016 Comp Metabolic Fzz022 CL 96 mEq/L 03/29/2016 Comp Metabolic Qjb585 CO2 30.0 mEq/L 03/29/2016 Comp Metabolic Vzp063 AN ION GAP 13 03/29/2016 Comp Metabolic Ycs251 GL UCOSE 102 mg/dL 03/29/2016 Comp Metabolic Oac154 Cr eat 0.6 mg/dL 03/29/2016 Comp Metabolic Now893 eG FR 94 ml/min/1.73m2 03/29 Comp Metabolic Knj268 BUN 15 mg/dL 03/29/2016 Comp Metabolic Uvd525 B/ C Ratio 23.4 Ratio 03/29/2016 Comp Metabolic Dlf275 CA LCIUM 9.1 mg/dL 03/29/2016 Comp Metabolic Dte227 AL K PHOS 70 U/L 03/29/2016 Comp Metabolic Why576 T(SGOT) 35 U/L 03/29/2016 Comp Metabolic Cgg458 AL T(SGPT) 27 U/L 03/29/2016 Comp Metabolic Lyt882 BI LI T 0.5 mg/dL 03/29/2016 Comp Metabolic Anr350 AL BUMIN 4.2 g/dL 03/29/2016 Comp Metabolic Tdt213 TP RO 6.6 g/dL 03/29/2016 Comp Metabolic Ylq827 GL OB 2.4 g/dL 03/29/2016 Comp Metabolic Vyi299 A/ G Ratio 1.7 Ratio 03/29/2016 Comp Metabolic Zuw239 Os mo 271 mOsmo 03/29/2016 Tsh Ord6 hTSH II 1.17 uIU/mL 03/29/2016 B12 Wby067 B12 838.00 pg/ml 09/02/2015 Tsh Ord6 hTSH [...] Ord2 RDW 15.1 % 09/02/2015 Comp Metabolic Dfa902 NA 135 mEq/L 09/02/2015 Comp Metabolic Wos270 K 3.4 mEq/L 09/02/2015 Comp Metabolic Hal630 CL 95 mEq/L 09/02/2015 Comp Metabolic Fzi506 CO2 27.0 mEq/L 09/02/2015 Comp Metabolic Olk324 AN ION GAP 16 09/02/2015 Comp Metabolic Crr373 GL UCOSE 94 mg/dL 09/02/2015 Comp Metabolic Rcz452 Cr eat 0.7 mg/dL 09/02/2015 Comp Metabolic Jnf491 eG FR 87 ml/min/1.73m2 09/02 Comp Metabolic Ojn790 BUN 18 mg/dL 09/02/2015 Comp Metabolic Mqi674 B/ C Ratio 26.1 Ratio 09/02/2015 Comp Metabolic Jgq968 CA LCIUM 9.0 mg/dL 09/02/2015 Comp Metabolic Bfz241 AL K PHOS 67 U/L 09/02/2015 Comp Metabolic Qhb320 T(SGOT) 30 U/L 09/02/2015 Comp Metabolic Qhc876 AL T(SGPT) 21 U/L 09/02/2015 Comp Metabolic Eaz747 BI LI T 0.6 mg/dL 09/02/2015 Comp Metabolic Izc206 AL BUMIN 4.3 g/dL 09/02/2015 Comp Metabolic Urk883 TP RO 6.8 g/dL 09/02/2015 Comp Metabolic Bdy174 GL OB 2.5 g/dL 09/02/2015 Comp Metabolic Lkn415 A/ G Ratio 1.7 Ratio 09/02/2015 Comp Metabolic Vld721 Os mo 272 mOsmo 09/02/2015 Lipid Ord30 [...] impaction 01/09/2019 None Full Exam - General 1995 Ears/Nose/Throat otoscopic exam Tympanic membrane: not visualized until cerumen removed, TM pearly 01/09/2019 None Full Exam - General 1995 Ears/Nose/Throat lips/teeth/gingiva Overall: benign lips 01/09/2019 None Full Exam - General 1995 Ears/Nose/Throat lips/teeth/gingiva Overall: normal dentition 01/09/2019 None Full Exam - General 1995 Ears/Nose/Throat oral cavity/pharynx/larynx Overall: oral mucosa clear 01/09/2019 None Full Exam - General 1995 Ears/Nose/Throat oral cavity/pharynx/larynx Overall: oropharyngeal mucosa clear 01/09/2019 None Full Exam - General 1995 Ears/Nose/Throat oral cavity/pharynx/larynx Overall: no masses 01/09/2019 [...] Procedure Codes Date TRIM SKIN LESION CPT-4: 21736 01/09/2019 TRIM SKIN LESIONS 2 TO 4 CPT-4: 61065 01/09/2019 ADMIN INFLUENZA VIRU S VAC CPT-4: G0008 06/21/2018 FLU VACC PRSV FREE I NC ANTIG CPT-4: 07262 06/21/2018 ADMIN INFLUENZA VIRU S VAC CPT-4: G0008 06/21/2017 FLU VACC PRSV FREE I NC ANTIG CPT-4: 81931 06/21/2017 ADMIN INFLUENZA VIRU S VAC CPT-4: G0008 06/24/2016 FLU VACC 4 CRISTINE 3 YRS PLUS IM Formatting Model/CDA Sections, Assigned to/Carmen Solis SNOMED CT: [id number] CPT-4: 35463Vuipdkq 06/24/2016 ADMIN INFLUENZA VIRU S VAC CPT-4: G0008 06/19/2015 FLU VACC 4 CRISTINE 3 YRS PLUS IM Formatting Model/CDA Sections, Assigned to/Carmen Solis SNMELINDA CT: [id number] CPT-4: 57909Sqtfckf 06/19/2015 Vital Signs Date Vital 01/09/2019 Blood Pressure 1: 132/62 Code: 8480-6 BMI: 15.8 Code: 94245-6 Heart Rate 1: 69 bpm Height: 5'2" SpO2: 98% Weight: 88 lbs 12/31/2018 Blood Pressure 1: 140/52 Code: 8480-6 BMI: 16.2 Code: 23056-4 Heart Rate 1: 70 bpm Height: 5'2" SpO2: 95% Weight: 90 lbs 09/05/2018 Blood Pressure 1: 138/74 Code: 8480-6 BMI: 16.1 Code: 94002-1 Heart Rate 1: 69 bpm Height: 5'2" SpO2: 98% Weight: 89 lbs 8 oz 08/15/2018 Blood Pressure 1: 142/72 Code: 8480-6 BMI: 16.3 Code: 55261-6 Heart Rate 1: 66 bpm Height: 5'2" SpO2: 99% Weight: 90 lbs 8 oz 05/29/2018 Blood Pressure 1: 140/70 Code: 8480-6 BMI: 16.2 Code: 20561-8 Heart Rate 1: 67 bpm Height: 5'2" SpO2: 99% Weight: 90 lbs 05/14/2018 Blood Pressure 1: 146/68 Code: 8480-6 BMI: 16.0 Code: 55322-8 Heart Rate 1: 70 bpm Height: 5'2" SpO2: 98% Weight: 89 lbs 04/18/2018 Blood Pressure 1: 126/68 Code: 8480-6 BMI: 15.7 Code: 78489-9 Heart Rate 1: 81 bpm Height: 5'2" SpO2: 99% Weight: 87 lbs 01/22/2018 Blood Pressure 1: 136/76 Code: 8480-6 BMI: 15.8 Code: 70324-2 Heart Rate 1: 73 bpm Height: 5'2" SpO2: 99% Weight: 88 lbs 01/01/2018 Blood Pressure 1: 148/76 Code: 8480-6 BMI: 15.8 Code: 00750-7 Heart Rate 1: 74 bpm Height: 5'2" SpO2: 98% Weight: 88 lbs 12/12/2017 Blood Pressure 1: 140/72 Code: 8480-6 BMI: 15.8 Code: 60134-7 Heart Rate 1: 65 bpm Height: 5'2" SpO2: 96% Weight: 88 lbs 09/13/2017 Blood Pressure 1: 138/70 Code: 8480-6 BMI: 15.9 Code: 04582-2 Heart Rate 1: 74 bpm Height: 5'2" SpO2: 99% Weight: 88 lbs 8 oz 06/21/2017 Blood Pressure 1: 122/50 Code: 8480-6 BMI: 15.3 Code: 49325-2 Heart Rate 1: 69 bpm Height: 5'2" SpO2: 99% Weight: 85 lbs 05/25/2017 Blood Pressure 1: 138/72 Code: 8480-6 Heart Rate 1: 77 bpm Height: 5'2" SpO2: 98% Weight: 05/16/2017 Blood Pressure 1: 136/78 Code: 8480-6 Heart Rate 1: 86 bpm Height: 5'2" SpO2: 98% Weight: 02/15/2017 Blood Pressure 1: 144/78 Code: 8480-6 BMI: 15.4 Code: 10888-1 Heart Rate 1: 65 bpm Height: 5'2" SpO2: 98% Weight: 85 lbs 8 oz 11/22/2016 Blood Pressure 1: 140/58 Code: 8480-6 BMI: 14.8 Code: 93859-8 Heart Rate 1: 79 bpm Height: 5'2" SpO2: 99% Weight: 82 lbs 09/15/2016 BMI: 16.0 Code: 04856-9 Height: 5'2" Weight: 89 lbs 09/07/2016 Blood Pressure 1: 130/62 Code: 8480-6 BMI: 16.2 Code: 01465-7 Heart Rate 1: 71 bpm Height: 5'2" SpO2: 98% Weight: 90 lbs 07/06/2016 Blood Pressure 1: 144/76 Code: 8480-6 BMI: 15.8 Code: 45256-3 Heart Rate 1: 78 bpm Height: 5'2" SpO2: 99% Weight: 88 lbs 04/06/2016 Blood Pressure 1: 148/58 Code: 8480-6 BMI: 16.2 Code: 06068-1 Heart Rate 1: 64 bpm Height: 5'2" SpO2: 97% Weight: 90 lbs 01/06/2016 Blood Pressure 1: 146/72 Code: 8480-6 BMI: 16.6 Code: 81684-1 Heart Rate 1: 62 bpm Height: 5'2" SpO2: 99% Weight: 92 lbs 09/02/2015 Blood Pressure 1: 132/70 Code: 8480-6 BMI: 16.6 Code: 10732-3 Heart Rate 1: 77 bpm Height: 5'2" SpO2: 98% Weight: 92 lbs 06/15/2015 Blood Pressure 1: 144/60 Code: 8480-6 BMI: 16.7 Code: 05406-9 Heart Rate 1: 66 bpm Height: 5'2" SpO2: 97% Weight: 93 lbs 03/04/2015 Blood Pressure 1: 120/80 Code: 8480-6 BMI: 15.8 Code: 56864-4 Heart Rate 1: 74 bpm Height: 5'2" [...] Encounters Encounter Performer Loca tion Codes Date ([id number]) [id number] EST. P ATIENT, LEVEL IV Diagnosis: Essential [...] Corns and callosities[ICD10: L84] Anum Bradshaw MD, [facility] CPT-4: 99010 01/09/2019 23142 EST. PATIENT, LEVEL IV Diagnosis: Dysuria[ICD10: R30.0] Kala Bradshaw MD, [facility] CPT-4: 80757 12/31/2018 ([id number]) 25852 EST. P ATIENT, LEVEL IV Diagnosis: Essential (primary) hypertension[ICD10: I10] Diagnosis: Rash and other nonspecific skin eruption[ICD10: R21] Anum Bradshaw MD, [facility] CPT-4: 45021 09/05/2018 ([id number]) 97638 EST. P ATIENT, LEVEL IV Diagnosis: Essential (primary) hypertension[ICD10: I10] Diagnosis: Tinea barbae and tinea capitis[ICD10: B35.0] Diagnosis: Unsteadiness on feet[ICD10: R26.81] Diagnosis: Weakness[ICD10: R53.1] Anum Bradshaw MD, [facility] CPT-4: 75888 08/15/2018 ([id number]) 90363 EST. P ATIENT, LEVEL III Diagnosis: Rash and other nonspecific skin eruption[ICD10: R21] Diagnosis: Other allergic rhinitis[ICD10: J30.89] Diagnosis: Gastro-esophageal reflux disease without esophagitis[ICD10: K21.9] Rosalinda Bradshaw MD, [facility] CPT-4: 78929 05/29/2018 ([id number]) 23039 EST. P ATIENT, LEVEL III Diagnosis: Rash and other nonspecific skin eruption[ICD10: R21] Rosalinda Bradshaw MD, [facility] CPT-4: 68556 05/14/2018 ([id number]) 43778 EST. P ATIENT, LEVEL IV Diagnosis: Essential (primary) hypertension[ICD10: I10] Diagnosis: Underweight[ICD10: R63.6] Diagnosis: Mixed hyperlipidemia[ICD10: E78.2] Anum Bradshaw MD, [facility] CPT- 4: 29132 04/18/2018 ([id number]) 66675 EST. P ATIENT, LEVEL III Diagnosis: Bicipital tendinitis, left shoulder[ICD10: M75.22] Anum Bradshaw MD, C CPT-4: 29985 01/22/2018 ([id number]) 71397 EST. P ATIENT, LEVEL III Diagnosis: Pain in right shoulder[ICD10: M25.511] Diagnosis: Bicipital tendinitis, right shoulder[ICD10: M75.21] Anum Bradshaw MD, [facility] CPT-4: 88791 01/01/2018 ([id number]) 47485 EST. P ATIENT, LEVEL IV Diagnosis: Essential (primary) hypertension[ICD10: I10] Diagnosis: Underweight[ICD10: R63.6] Diagnosis: Mixed hyperlipidemia[ICD10: E78.2] Diagnosis: Actinic keratosis[ICD10: L57.0] Anum Bradshaw MD, [facility] CPT-4: 71741 12/12/2017 ([id number]) 65020 EST. P ATIENT, LEVEL III Diagnosis: Essential (primary) hypertension[ICD10: I10] Diagnosis: Fracture of unspecified part of neck of left femur, subsequent encounter for closed fracture with routine healing[ICD10: S72.002D] Diagnosis: Underweight[ICD10: R63.6] Anum Bradshaw MD, [facility] CPT-4: 15829 09/13/2017 ([id number]) 50205 EST. P ATIENT, LEVEL IV Diagnosis: Mixed hyperlipidemia[ICD10: E78.2] Diagnosis: Essential (primary) hypertension[ICD10: I10] Diagnosis: Vitamin B12 deficiency anemia due to intrinsic factor deficiency[ICD10: D51.0] Diagnosis: Gastro-esophageal reflux disease with esophagitis[ICD10: K21.0] Diagnosis: Age-related osteoporosis without current pathological fracture[ICD10: M81.0] Diagnosis: Encounter for immunization[ICD10: Z23] Anum Bradshaw MD, [facility] CPT-4: 47791 06/21/2017 ([id number]) 33592 EST. P ATIENT, LEVEL III Diagnosis: Fracture of unspecified part of neck of left femur, subsequent encounter for closed fracture with routine healing[ICD10: S72.002D] Diagnosis: Underweight[ICD10: R63.6] Diagnosis: Gastro-esophageal reflux disease with esophagitis[ICD10: K21.0] Anum Bradshaw MD, [facility] CPT-4: 79543 05/25/2017 ([id number]) 76086 EST. P ATIENT, LEVEL IV Diagnosis: Essential (primary) hypertension[ICD10: I10] Diagnosis: Fracture of unspecified part of neck of left femur, subsequent encounter for closed fracture with routine healing[ICD10: S72.002D] Diagnosis: Generalized anxiety disorder[ICD10: F41.1] Anum Bradshaw MD, [facility] CPT-4: 35298 05/16/2017 ([id number]) 44508 EST. P ATIENT, LEVEL IV Diagnosis: Essential (primary) hypertension[ICD10: I10] Diagnosis: Mixed hyperlipidemia[ICD10: E78.2] Diagnosis: Generalized anxiety disorder[ICD10: F41.1] Anum Bradshaw MD, C CPT-4: 63009 02/15/2017 ([id number]) 32008 EST. P ATIENT, LEVEL IV Diagnosis: Mixed hyperlipidemia[ICD10: E78.2] Diagnosis: Generalized anxiety disorder[ICD10: F41.1] Diagnosis: Essential (primary) hypertension[ICD10: I10] Diagnosis: Gastro-esophageal reflux disease with esophagitis[ICD10: K21.0] Anum Bradshaw MD, [facility] CPT-4: 41696 11/22/2016 56455 EST. PATIENT, LEVEL III Diagnosis: Inflamed seborrheic keratosis[ICD10: L82.0] Kala Bradshaw MD, [facility] CPT-4: 87178 09/15/2016 ([id number]) 83685 EST. P ATIENT, LEVEL IV Diagnosis: Essential (primary) hypertension[ICD10: I10] Diagnosis: Mixed hyperlipidemia[ICD10: E78.2] Diagnosis: Generalized anxiety disorder[ICD10: F41.1] Anum Bradshaw MD, [facility] CPT-4: 22512 09/07/2016 ([id number]) 82080 EST. P ATIENT, LEVEL IV Diagnosis: Essential (primary) hypertension[ICD10: I10] Diagnosis: Frequency of micturition[ICD10: R35.0] Diagnosis: Age-related osteoporosis without current pathological fracture[ICD10: M81.0] Anum Bradshaw MD, [facility] CPT-4: 84151 07/06/2016 ([id number]) 51446 EST. P ATIENT, LEVEL IV Diagnosis: Essential (primary) hypertension[ICD10: I10] Diagnosis: Mixed hyperlipidemia[ICD10: E78.2] Diagnosis: Gastro-esophageal reflux disease with esophagitis[ICD10: K21.0] Anum Bradshaw MD, [facility] CPT-4: 65571 04/06/2016 13397 EST. PATIENT, LEVEL IV Diagnosis: Essential (primary) hypertension[ICD10: I10] Diagnosis: Gastro-esophageal reflux disease with esophagitis[ICD10: K21.0] Kala Bradshaw MD, [facility] CPT-4: 15872 01/06/2016 ([id number]) 12052 EST. P ATIENT, LEVEL IV Diagnosis: Essential (primary) hypertension[ICD10: I10] Diagnosis: Gastro-esophageal reflux disease with esophagitis[ICD10: K21.0] Diagnosis: Other dietary vitamin B12 deficiency anemia[ICD10: D51.3] Diagnosis: Vitamin B12 deficiency anemia due to intrinsic factor deficiency[ICD10: D51.0] Diagnosis: Occlusion and stenosis of unspecified carotid artery[ICD10: I65.29] Anum Bradshaw MD, [facility] CPT-4: 45250 09/02/2015 ([id number]) 76080 EST. P ATIENT, LEVEL III Diagnosis: Carpal tunnel syndrome[ICD9: 354.0] Diagnosis: Inflamed seborrheic keratosis[ICD9: 702.11] [facility] CPT-4: 87244 06/15/2015 ([id number]) OFFICE [facility] - LEVEL 4 Diagnosis: ESSENTIAL HYPERTENSION[ICD9: 401.9] Diagnosis: ESOPHAGEAL REFLUX[ICD9: 530.81] Diagnosis: HYPERLIPIDEMIA[ICD9: 272.4] [facility] CPT-4: 31550 03/04/2015 Plan of Care Planned Activity Notes C odes Status Date Visit Plan: Hypertension - well con trolled - continue with current medications, continue with no added salt diet. Pt has been encouraged to exercise daily. The pt has been advised to call the office if there are any acute concerns about change in blood pressure readings at home. [place] on toe - debrided with scalpel today. [...] intake. 01/09/2019 App[facility]ment[phone] [facility] (15 min) Moderate 01/09/2019 Patient Education: Patient Medication Summary Completed 01/09/2019 Patient Education: Hypertension Completed 01/09/2019 Patient Education: Cholesterol Management Completed 01/09/2019 Visit Plan: UTI - pt with positive urinalysis - culture sent if appropriate. Antibiotic electronically prescribed to pt's pharmacy of choice. Pt to call if symptoms do not improve. 12/31/2018 Appointment: [phone] (30 min) Complex 12/31/2018 Patient Education: Patient [...] for betamethasone. 09/05/2018 Appointment: Anum Bradshaw WPtel: [facility] [place] [facility] [place] [facility] (15 min) Moderate 09/05/2018 Patient Education: Patient [...] not improving. 08/15/2018 Appointment: Anum Bradshaw WPtel: [facility] [place] [facility] [place] [facility] (15 min) Moderate 08/15/2018 Patient Education: Patient Medication Summary Completed 08/15/2018 Patient Education: Hypertension Completed 08/15/2018 Appointment: Anum Bradshaw WPtel: [facility] [place] [facility] [place] [facility] (15 min) Moderate 2018 Appointment: Injection 06/21/2018 [...] ketoconazole shampoo 05/29/2018 Appointment: Rosalinda Bermudez WPtel: [phone] [phone] (30 min) Complex 05/29/2018 Patient Education: Patient [...] if needed 05/14/2018 Appointment: Rosalinda Bermudez WPtel: [phone] [phone] (30 min) Complex 05/14/2018 Patient Education: Patient [...] medications. 04/18/2018 Appointment: Anum Bradshaw WPtel: [phone] [facility] (15 min) Moderate 04/18/2018 Patient Education: Patient Medication Summary Completed 04/18/2018 Appointment: Injection 03/08/2018 Visit Plan: Left shoulder pain - bi cep tendonitis - continue with physical therapy at [facility]. Use voltaren gel on left shoulder now - continue with therapy on right shoulder. 01/22/2018 Appointment: [facility] Bradshaw [facility]el[facility] [phone] [facility] [place] (15 min) Moderate 01/22/2018 [...] tendonitis - referral to physical therapy at [facility] 01/01/2018 Appointment: Anum Bradshaw WPtel: [phone] [facility] (15 min) Moderate 01/01/2018 Patient Education: Patient [...] 2 weeks 12/12/2017 Appointment: [facility] Bradshaw [facility]Ptel[facility] [phone] [facility] [place] (15 min) Moderate 12/12/2017 Patient Education: Patient [...] - healing. 09/13/2017 Appointment: Anum Bradshaw WPtel: [facility] [place] [facility] [place] [facility] (15 min) Moderate 09/13/2017 Patient Education: Patient [...] not improving. 06/21/2017 Appointment: Anum Bradshaw WPtel: [facility] [place] [facility] [place] [facility] (15 min) Moderate 06/21/2017 Patient Education: Patient Medication Summary Completed 06/21/2017 Visit Plan: Esophageal Reflux - the patient has been taking medication as directed and her symptoms are improved. Hip fracture - continue with supportive care, nonweight bearing. Underweight - increase protein intake, higher calorie diet, use wheelchair to decrease excessive caloric expenditure. 05/25/2017 Appointment: Anum Bradshaw WPtel: [facility] [place] [facility] [place] [facility] (15 min) Moderate 05/25/2017 Patient [...] medications. 05/16/2017 Appointment: Anum Bradshaw WPtel: [phone] [facility] (15 min) Moderate 05/16/2017 Patient [...] to medications. 02/15/2017 Appointment: [facility] Bradshaw [facility]Ptel[facility] [phone] [facility] (15 min) Moderate 02/15/2017 Patient Education: Patient Medication Summary Completed 02/15/2017 Patient Education: Hypertension Completed 02/15/2017 Care Plan: Referral Order SNOMED-CT : [id number] Pending 02/15/2017 Appointment: Anum Bradshaw WPtel: [facility] [place] [facility] [place] [facility] (15 min) Moderate 01/11/2017 Visit Plan: Hypertension [...] current treatment 11/22/2016 Appointment: Anum Bradshaw WPtel: [facility] [place] [facility] [place] [facility] (15 min) Moderate 11/22/2016 Patient Education: Patient Medication Summary Completed 11/22/2016 Patient Education: Hypertension Completed 11/22/2016 Appointment: Rosalinda Bermudez WPtel: [facility] [place] [facility] [place] [phone] (30 min) Complex 09/16/2016 Visit Plan: Lesion [...] monitor symptoms. 09/07/2016 Appointment: Anum Bradshaw WPtel: [phone] [facility] (15 min) Moderate 09/07/2016 Patient Education: Patient [...] ua negative 07/06/2016 Appointment: Anum Bradshaw WPtel: [facility] [place] [facility] [place] [facility] (15 min) Moderate 07/06/2016 Patient Education: [...] not improving. 04/06/2016 Appointment: [facility] Bradshaw [facility]Ptel[facility] [phone] [facility] (15 min) Moderate 04/06/2016 Patient [...] 09/02/2015 Care Plan: Referral Order SNOMED-CT : [id number] Ordered 09/02/2015 Appointment: Injection 06/19/2015 Patient Education: [...] not improving. 03/04/2015 Appointment: Anum Bradshaw WPtel: [phone] [facility] [place] ([place] New Patient 03/04/2015 [...] - referral to physical therapy at [facility] . Lesion to left joleen e of nose - pt had been prescribed effudex cream but has been afraid to apply it - given instructions for application, pt is to call if pustular drainage, or any other acute concerns. INCREASE CARAFATE SWITCH TO NIDIA . Esophageal [...] change in blood pressure readings at home. [place] on toe - debrided with scalpel today. [...] - continue with physical therapy at [facility]. Use voltaren gel on left shoulder now [...] ketoconazole cream and call if not improving. . Esophageal Reflux - the patient has [...] on posterior scalp - rx for betamethasone. Forteo - the daily o steoporosis injection [...]
--- OUTSIDE RECORDS SUMMARY | 2019-12-29 11:13 | XMS REPORT | CCD ---
Author Author Ashley Bradshaw Organization [facility] Address [address] [place] [address] Phone Care Team Providers Care Zoology Technical Officer Name Role Phone PP Unavailable CCM Unavailable Summary Purpose Interface Exchange Insurance Providers Payer name Policy type / Coverage type Covered libertarian ID Effective Begin Date Effective End Date WPS Medicare Part B Medicare Part B [id number] Unknown Unknown CIGNA Medicare Part B [id number] Unknown Unknown Family history Father Diagnosis Age At Onset Coronary Artery Disease Unknown Mother Diagnosis Age At Onset Anemia Unknown Skin cancer Unknown Hypertension Unknown Cancer Unknown Breast cancer Unknown Social History Social History Element Codes Description Effective Dates Marital status Unknown M arrkimberly Shahram 03/04/2015 Number of children Unknown 3 03/04/[address]: 251954571 Never smoker 03/04/[address]: 321395337 Never drinks alcohol 03/04/2015 Allergies, Adverse Reactions, Alerts Substance Reaction Codes Entered Date Inactivated Date Status NEOSPORIN RxNorm: 429200 01/06/2016 No Inactive Date Active Past Medical [...] Date Stop Date Sta tus Fill Instructions Bactroban 2 % topica l ointment RxNorm: 657715 APPLY TO AFFECTED ARE A(S) TOPICALLY DAILY 01/21/2019 No Stop Date Active ketoconazole 2 % sha mpoo RxNorm: 019503 1 Application TOP BIW 01/21/2019 No Stop Date Active escitalopram 5 mg ta blet RxNorm: 536186 TAKE 1 TABLET BY MOUT H EVERY EVENING 01/14/2019 01/08/2020 Ac tive simvastatin 20 mg ta blet RxNorm: 189750 TAKE 1 TABLET BY MOUT H EVERY DAY 01/14/2019 01/08/2020 Ac tive Keflex 500 mg capsule RxNorm: 805790 1 Capsule(s) PO TID 12/31/2018 01/09/2019 Inactive Pyridium 200 mg tablet RxNorm: 0484774 1 Tablet(s) PO TID 12/31/2018 01/01/2019 Inactive esomeprazole magnesi um 40 mg capsule,delayed release RxNorm: 467489 Capsule(s) TAKE 1 CAPSULE BY MOUTH DAILY 11/27/2018 02/19/2020 Active wants to pay henry Zantac 150 mg tablet RxNorm: 858745 1 Tablet(s) PO BID 11/02/2018 11/26/2018 Inactive Zantac 150 mg tablet RxNorm: 419329 1 Tablet(s) PO BID 11/02/2018 11/01/2018 Inactive sucralfate 100 mg/mL oral suspension RxNorm: 565942 10 Milliliter(s) per 1 gram PO QID 10/08/2018 10/02/2019 Active diltiazem 30 mg tablet RxNorm: 293616 1 Tablet(s) PO QID 10/08/2018 10/02/2019 Active betamethasone nasir te 0.1 % topical cream RxNorm: 574093 1 Application TOP BID 09/05/2018 11/03/2018 In active ketoconazole 2 % top ical cream RxNorm: 109036 1 Application TOP BID to posterior scalp x 2 weeks or until the skin is healed 08/15/2018 08/28/2018 Inactive triamterene 37.5 mg- hydrochlorothiazide 25 mg tablet RxNorm: 034927 Tablet(s) 1 Tablet(s) PO daily 07/12/2018 01/07/2019 Inactive PLEASE SEND REFILL REQUESTS ELECTRONICALLY simvastatin 20 mg ta blet RxNorm: 920448 TAKE 1 TABLET BY MOUT H EVERY DAY 07/12/2018 01/07/2019 In active ketoconazole 2 % sha mpoo RxNorm: 189468 1 Application TOP BIW 05/14/2018 01/20/2019 Inactive simvastatin 20 mg ta blet RxNorm: 731716 TAKE 1 TABLET BY MOUT H EVERY DAY 03/01/2018 07/11/2018 In active triamterene 37.5 mg- hydrochlorothiazide 25 mg tablet RxNorm: 426752 Tablet(s) 1 Tablet(s) PO daily 02/06/2018 07/11/2018 Inactive PLEASE SEND REFILL REQUESTS ELECTRONICALLY Voltaren 1 % topical gel RxNorm: 311082 2 Gram(s) TOP TID to shoulders 01/01/2018 04/30/2018 In active sucralfate 100 mg/mL oral suspension RxNorm: 494362 10 Milliliter(s) per 1 gram PO QID 12/12/2017 06/09/2018 Inactive refill 3 month supply- 1gm/10ml simvastatin 20 mg ta blet RxNorm: 518591 TAKE 1 TABLET BY MOUT H EVERY DAY 12/04/2017 02/28/2018 In active escitalopram 5 mg ta blet RxNorm: 393758 1 Tablet(s) PO QPM 10/26/2017 01/13/2019 Inactive esomeprazole magnesi um 40 mg capsule,delayed release RxNorm: 952266 TAKE 1 CAPSULE BY MOUTH DAILY 10/26/2017 11/01/2018 Inactive mupirocin 2 % topica l ointment RxNorm: 092053 APPLY TO AFFECTED ARE A(S) ONCE DAILY 10/16/2017 11/28/2017 In active diltiazem 30 mg tablet RxNorm: 583074 1 Tablet(s) PO QID 10/09/2017 10/03/2018 Inactive triamterene 37.5 mg- hydrochlorothiazide 25 mg tablet RxNorm: 941096 1 Tablet(s) PO daily 07/28/2017 01/23/2018 Inactive fluticasone 50 mcg/a ctuation nasal spray,suspension RxNorm: 3731709 2 [place] NASAL daily 07/20/2017 01/08/2019 Inactive diltiazem 30 mg tablet RxNorm: 883296 1 Tablet(s) PO QID TAKE 1 TABLET BY MOUT H FOUR TIMES DAILY 07/13/2017 10/08/2017 Inactive simvastatin 20 mg ta blet RxNorm: 635115 TAKE 1 TABLET BY MOUT H EVERY DAY 06/08/2017 12/03/2017 In active Nexium 40 mg capsule ,delayed release RxNorm: 401806 1 Capsule(s) PO daily 05/25/2017 11/27/2017 In active esomeprazole magnesi um 40 mg capsule,delayed release RxNorm: 843585 Capsule(s) TAKE 1 CAPSULE BY MOUTH DAILY 05/17/2017 02/10/2018 Inactive diltiazem 30 mg tablet RxNorm: 859782 Tablet(s) TAKE 1 TABLET BY MOUTH FOUR TI MES DAILY 05/16/2017 07/12/2017 Inactive diltiazem 30 mg tablet RxNorm: 219125 TAKE 1 TABLET BY MOUTH THREE TIMES DAILY 02/09/2017 05/15/2017 In active Zofran ODT 4 mg disi ntegrating tablet RxNorm: 809485 1 Tablet(s) PO Q6 as needed 11/16/2016 11/22/2016 In active Protonix 40 mg table t,delayed release RxNorm: 366327 1 Tablet(s) PO daily 11/16/2016 12/15/2016 In active Protonix 40 mg table t,delayed release RxNorm: 362286 1 Tablet(s) PO daily 11/16/2016 11/15/2016 In active Zofran ODT 4 mg disi ntegrating tablet RxNorm: 342355 1 Tablet(s) PO Q6 as needed 11/16/2016 11/15/2016 In active escitalopram 5 mg ta blet RxNorm: 364596 1 Tablet(s) PO QPM 10/28/2016 10/22/2017 Inactive escitalopram 5 mg ta blet RxNorm: 880261 1 Tablet(s) PO QPM 10/05/2016 10/27/2016 Inactive mupirocin 2 % topica l ointment RxNorm: 802823 1 Application TOP yao ly APPLY TO AFFECTED AREA(S) TOPICALLY DAILY 09/07/2016 11/05/2016 Inactive Efudex 5 % topical c ream RxNorm: 180933 1 TOP BID 09/07/2016 09/16/2016 Inactive escitalopram 5 mg ta blet RxNorm: 458229 1 Tablet(s) PO QPM 09/07/2016 10/04/2016 Inactive sucralfate 100 mg/mL oral suspension RxNorm: 092605 10 Milliliter(s) per 1 gram PO QID 08/03/2016 07/28/2017 Inactive refill 3 month supply- 1gm/10ml clorazepate dipotass ium 3.75 mg tablet RxNorm: 002593 1 Tablet(s) PO QHS as needed insomnia 07/06/2016 08/14/2018 Inactive triamterene 37.5 mg- hydrochlorothiazide 25 mg tablet RxNorm: 946337 1 Tablet(s) PO daily 06/29/2016 06/23/2017 Inactive Nexium 40 mg capsule ,delayed release RxNorm: 238972 1 Capsule(s) PO daily 06/29/2016 07/05/2016 In active Bactroban 2 % topica l ointment RxNorm: 120488 APPLY TO AFFECTED ARE A(S) TOPICALLY DAILY 06/22/2016 09/06/2016 Inactive esomeprazole magnesi um 40 mg capsule,delayed release RxNorm: 437259 TAKE 1 CAPSULE BY MOUTH DAILY 06/13/2016 03/09/2017 Inactive simvastatin 20 mg ta blet RxNorm: 198022 1 Tablet(s) PO daily 05/16/2016 06/07/2017 Inactive simvastatin 20 mg ta blet RxNorm: 828627 1 Tablet(s) PO daily 05/12/2016 05/15/2016 Inactive famotidine 40 mg tablet RxNorm: 177590 TAKE 1 TABLET BY MOUTH DAILY 05/05/2016 01/29/2017 Inactive Bactroban 2 % topica l ointment RxNorm: 126004 APPLY TO AFFECTED ARE A(S) TOPICALLY DAILY 04/25/2016 05/01/2016 Inactive fluticasone 50 mcg/a ctuation nasal spray,suspension RxNorm: 8547489 2 [place] NASAL daily 03/23/2016 09/18/2016 Inactive fluticasone 50 mcg/a ctuation nasal spray,suspension RxNorm: 247428 2 [place] NASAL daily 03/07/2016 03/22/2016 Inactive Bactroban 2 % topica l ointment RxNorm: 476217 APPLY TO AFFECTED ARE A(S) TOPICALLY DAILY 02/29/2016 03/06/2016 Inactive diltiazem 30 mg tablet RxNorm: 700526 1 Tablet(s) PO TID 02/18/2016 02/08/2017 Inactive Bactroban 2 % topica l ointment RxNorm: 726922 1 Application TOP 01/08/2016 02/28/2016 Inactive clorazepate dipotass ium 3.75 mg tablet RxNorm: 958275 1 Tablet(s) PO daily 12/14/2015 06/10/2016 In active fluticasone 50 mcg/a ctuation nasal spray,suspension RxNorm: 071981 2 [place] NASAL daily 12/14/2015 02/11/2016 Inactive diltiazem 30 mg tablet RxNorm: 126957 1 Tablet(s) PO TID 09/03/2015 02/17/2016 Inactive simvastatin 20 mg ta blet RxNorm: 403370 1 Tablet(s) PO daily 08/24/2015 05/11/2016 Inactive triamterene 37.5 mg- hydrochlorothiazide 25 mg tablet RxNorm: 816019 1 Tablet(s) PO daily 07/09/2015 06/28/2016 Inactive clorazepate dipotass ium 15 mg tablet RxNorm: 137738 1 Tablet(s) PO daily 07/06/2015 07/06/2015 In active clorazepate dipotass ium 3.75 mg tablet RxNorm: 735581 1 Tablet(s) PO daily 07/06/2015 12/13/2015 In active esomeprazole magnesi um 40 mg capsule,delayed release RxNorm: 462796 1 Capsule(s) PO daily 06/26/2015 06/12/2016 Inactive famotidine 40 mg tablet RxNorm: 258076 1 Tablet(s) PO daily 06/26/2015 05/04/2016 Inactive diltiazem 30 mg tablet RxNorm: 762888 1 Tablet(s) PO TID 06/09/2015 09/02/2015 Inactive sucralfate 100 mg/mL oral suspension RxNorm: 836179 10 Milliliter(s) per 1 gram PO QID 04/28/2015 04/21/2016 Inactive refill 3 month supply- 1gm/10ml member I d [id number] sucralfate 100 mg/mL oral suspension RxNorm: 825096 10 Milliliter(s) per 1 gram PO QID 04/27/2015 04/27/2015 Inactive refill 3 month supply diltiazem 30 mg tablet RxNorm: 422670 1 Tablet(s) PO TID 02/18/2015 02/17/2015 Inactive diltiazem 30 mg tablet RxNorm: 246686 1 Tablet(s) PO TID 02/18/2015 05/18/2015 Inactive Vitamin D3 2,000 uni t tablet RxNorm: 664408 Tablet(s) PO daily No Start Date Active Nidia ODT oral RxNorm: 138902 oral No Start Date Active PreserVision Lutein oral RxNorm: [address] art Date Active Vitamin B-12 oral RxNorm: 31789 oral No Start Date Active Calcium 500 + D oral RxNorm: 866921 oral No Start Date Active ketoconazole 2 % [facility] mpoo RxNorm: 608548 1 TOP daily No Start Date Active ketoconazole 2 % [facility] mpoo RxNorm: 804106 TOP No St art Date Active melatonin 5 mg tablet RxNorm: 165523 Tablet(s) PO QHS as needed No Start Date Active vitamin B6-vitamin E -magnesium oral RxNorm: 257818 oral No S tart Date Active famotidine 40 mg tablet RxNorm: 109074 1 Tablet(s) PO daily No Start Date 06/25/2015 Inactive clorazepate dipotass ium 3.75 mg tablet RxNorm: 633182 1 Tablet(s) PO daily No Start Date 07/05/2015 Inactive Bactroban 2 % topica l ointment RxNorm: 835515 1 Application TOP No Start Date 01/07/2016 Inactive Carafate 1 gram tablet RxNorm: 097453 1 Tablet(s) PO QID No Start Date 04/26/2015 Inactive Zyrtec 10 mg tablet RxNorm: 0491460 1 Tablet(s) PO daily No Start Date 08/14/2018 Inactive esomeprazole magnesi um 40 mg capsule,delayed release RxNorm: 276349 Capsule(s) PO daily No Start Date 06/25/2015 Inactive fluticasone 50 mcg/a ctuation nasal spray,suspension RxNorm: 115719 2 [place] NASAL daily No Start Date 12/13/2015 Inactive Nexium 40 mg capsule ,delayed release RxNorm: 326356 1 Capsule(s) PO daily No Start Date 06/28/2016 Inactive triamterene 37.5 mg- hydrochlorothiazide 25 mg tablet RxNorm: 847242 1 Tablet(s) PO daily No Start Date 07/08/2015 Inactive simvastatin 20 mg ta blet RxNorm: 309136 1 Tablet(s) PO daily No Start Date [...] Item Item Code Result Date Comp Metabolic Xni987 NA 134 mEq/L 01/09/2019 Comp Metabolic Kig888 K 3.4 mEq/L 01/09/2019 Comp Metabolic Rgg929 CL 94 mEq/L 01/09/2019 Comp Metabolic Eqk906 CO2 30.0 mEq/L 01/09/2019 Comp Metabolic Jlb389 AN ION GAP 13 01/09/2019 Comp Metabolic Jkb092 GL UCOSE 97 mg/dL 01/09/2019 Comp Metabolic Ztr542 Cr eat 0.7 mg/dL 01/09/2019 Comp Metabolic Jtc947 eG FR 90 ml/min/1.73m2 01/09 Comp Metabolic Oie383 BUN 18 mg/dL 01/09/2019 Comp Metabolic Wzl421 B/ C Ratio 27.3 Ratio 01/09/2019 Comp Metabolic Jyp666 CA LCIUM 9.0 mg/dL 01/09/2019 Comp Metabolic Iop995 AL K PHOS 57 U/L 01/09/2019 Comp Metabolic Bjm862 T(SGOT) 33 U/L 01/09/2019 Comp Metabolic Gqy212 AL T(SGPT) 25 U/L 01/09/2019 Comp Metabolic Xfp339 BI LI T 0.6 mg/dL 01/09/2019 Comp Metabolic Tlr120 AL BUMIN 4.5 g/dL 01/09/2019 Comp Metabolic Ock680 TP RO 6.9 g/dL 01/09/2019 Comp Metabolic Dxd954 GL OB 2.4 g/dL 01/09/2019 Comp Metabolic Fam768 A/ G Ratio 1.9 Ratio 01/09/2019 Comp Metabolic Peo560 Os mo 270 mOsmo 01/09/2019 Lipid Ord30 CHOL 178 mg/dL 01/09/2019 Lipid Ord30 HDL 76.0 mg/dl 01/09/2019 Lipid Ord30 TRIG 73 mg/dL 01/09/2019 Lipid Ord30 LDL 87 mg/dL 01/09/2019 Lipid Ord30 C/HDL 2.3 Ratio 01/09/2019 B12 Thh997 B12 >1500.00 pg/ml 01/09/2019 Tsh Ord6 TSH [...] 93.2 fl 01/09/2019 Cbc With Differential Ord2 [place]% 7.9 % 01/09/2019 Cbc With Differential Ord2 [...] 0.63 K/ul 01/09/2019 Cbc With Differential Ord2 [place] ABS# 0.5 K/ul 01/09/2019 Cbc With Differential Ord2 Eos ABS# 0.1 K/ul 01/09/2019 Cbc With Differential Ord2 Baso ABS# 0.0 K/ul 01/09/2019 Vitamin D 25 Oh Kxq4338 VITAMIN D, 25 HYDROXY 64.38 ng/mL 01/09/2019 [...] 31.4 pg 04/18/2018 Cbc With Differential Ord2 [place]% 9.2 % 04/18/2018 Cbc With Differential Ord2 [...] 0.76 K/ul 04/18/2018 Cbc With Differential Ord2 [place] ABS# 0.5 K/ul 04/18/2018 Cbc With Differential [...] Ord15 CALCIUM 9.1 mg/dL 04/18/2018 Comp Metabolic Tjv145 NA 130 mEq/L 12/07/2017 Comp Metabolic Wkp255 K 3.6 mEq/L 12/07/2017 Comp Metabolic Fzy494 CL 91 mEq/L 12/07/2017 Comp Metabolic Ivx179 CO2 29.0 mEq/L 12/07/2017 Comp Metabolic Mmh672 AN ION GAP 14 12/07/2017 Comp Metabolic Rod835 GL UCOSE 105 mg/dL 12/07/2017 Comp Metabolic Ivo556 Cr eat 0.6 mg/dL 12/07/2017 Comp Metabolic Pnf140 eG FR 94 ml/min/1.73m2 12/07 Comp Metabolic Qdr285 BUN 15 mg/dL 12/07/2017 Comp Metabolic Phh299 B/ C Ratio 23.4 Ratio 12/07/2017 Comp Metabolic Pms917 CA LCIUM 9.3 mg/dL 12/07/2017 Comp Metabolic Njg703 AL K PHOS 62 U/L 12/07/2017 Comp Metabolic Rem285 T(SGOT) 31 U/L 12/07/2017 Comp Metabolic Umb142 AL T(SGPT) 22 U/L 12/07/2017 Comp Metabolic Zmz720 BI LI T 0.4 mg/dL 12/07/2017 Comp Metabolic Idm235 AL BUMIN 4.3 g/dL 12/07/2017 Comp Metabolic Fat264 TP RO 6.5 g/dL 12/07/2017 Comp Metabolic Ubp079 GL OB 2.2 g/dL 12/07/2017 Comp Metabolic Kaj221 A/ G Ratio 2.0 Ratio 12/07/2017 Comp Metabolic Ifi595 Os mo 262 mOsmo 12/07/2017 Cbc With [...] 31.0 pg 12/07/2017 Cbc With Differential Ord2 [place]% 10.4 % 12/07/2017 Cbc With Differential Ord2 [...] 0.57 K/ul 12/07/2017 Cbc With Differential Ord2 [place] ABS# 0.5 K/ul 12/07/2017 Cbc With Differential [...] 32.3 pg 06/21/2017 Cbc With Differential Ord2 [place]% 10.1 % 06/21/2017 Cbc With Differential Ord2 [...] 0.65 K/ul 06/21/2017 Cbc With Differential Ord2 [place] ABS# 0.5 K/ul 06/21/2017 Cbc With Differential Ord2 Eos ABS# 0.2 K/ul 06/21/2017 Cbc With Differential Ord2 Baso ABS# 0.0 K/ul 06/21/2017 Comp Metabolic Yzp238 NA 133 mEq/L 06/21/2017 Comp Metabolic Psw358 K 4.0 mEq/L 06/21/2017 Comp Metabolic Rds683 CL 94 mEq/L 06/21/2017 Comp Metabolic Vuv872 CO2 25.0 mEq/L 06/21/2017 Comp Metabolic Ocg908 AN ION GAP 18 06/21/2017 Comp Metabolic Ssl455 GL UCOSE 88 mg/dL 06/21/2017 Comp Metabolic Epu832 Cr eat 0.6 mg/dL 06/21/2017 Comp Metabolic Qmi893 eG FR 94 ml/min/1.73m2 06/21 Comp Metabolic Zxf112 BUN 16 mg/dL 06/21/2017 Comp Metabolic Amw710 B/ C Ratio 25.0 Ratio 06/21/2017 Comp Metabolic Dbl871 CA LCIUM 9.1 mg/dL 06/21/2017 Comp Metabolic Fvj533 AL K PHOS 65 U/L 06/21/2017 Comp Metabolic Knv397 T(SGOT) 31 U/L 06/21/2017 Comp Metabolic Byi441 AL T(SGPT) 20 U/L 06/21/2017 Comp Metabolic Nip533 BI LI T 0.5 mg/dL 06/21/2017 Comp Metabolic Nls047 AL BUMIN 4.3 g/dL 06/21/2017 Comp Metabolic Ihv631 TP RO 6.6 g/dL 06/21/2017 Comp Metabolic Cxa293 GL OB 2.3 g/dL 06/21/2017 Comp Metabolic Xwn878 A/ G Ratio 1.8 Ratio 06/21/2017 Comp Metabolic Lxb702 Os mo 267 mOsmo 06/21/2017 Lipid Ord30 CHOL 188 mg/dL 06/21/2017 Lipid Ord30 HDL 77.0 mg/dl 06/21/2017 Lipid Ord30 TRIG 66 mg/dL 06/21/2017 Lipid Ord30 LDL 98 mg/dL 06/21/2017 Lipid Ord30 C/HDL 2.4 Ratio 06/21/2017 Tsh Ord6 hTSH II 1.32 uIU/mL 06/21/2017 Comp Metabolic Jjb412 NA 135 mEq/L 02/09/2017 Comp Metabolic Jut143 K 4.0 mEq/L 02/09/2017 Comp Metabolic Oeu667 CL 96 mEq/L 02/09/2017 Comp Metabolic Ugc178 CO2 28.0 mEq/L 02/09/2017 Comp Metabolic Cxk412 AN ION GAP 15 02/09/2017 Comp Metabolic Pun492 GL UCOSE 101 mg/dL 02/09/2017 Comp Metabolic Mej654 Cr eat 0.7 mg/dL 02/09/2017 Comp Metabolic Kvt170 eG FR 83 ml/min/1.73m2 02/09 Comp Metabolic Rym508 BUN 17 mg/dL 02/09/2017 Comp Metabolic Fno040 B/ C Ratio 23.9 Ratio 02/09/2017 Comp Metabolic Vuv479 CA LCIUM 9.3 mg/dL 02/09/2017 Comp Metabolic Uun310 AL K PHOS 51 U/L 02/09/2017 Comp Metabolic Kly151 T(SGOT) 33 U/L 02/09/2017 Comp Metabolic Emf051 AL T(SGPT) 21 U/L 02/09/2017 Comp Metabolic Pae574 BI LI T 0.6 mg/dL 02/09/2017 Comp Metabolic Bzb796 AL BUMIN 4.3 g/dL 02/09/2017 Comp Metabolic Hhv708 TP RO 6.9 g/dL 02/09/2017 Comp Metabolic Pml502 GL OB 2.6 g/dL 02/09/2017 Comp Metabolic Too885 A/ G Ratio 1.7 Ratio 02/09/2017 Comp Metabolic Jvb462 Os mo 272 mOsmo 02/09/2017 Lipid Ord30 [...] 31.8 pg 02/09/2017 Cbc With Differential Ord2 [place]% 11.3 % 02/09/2017 Cbc With Differential Ord2 [...] 0.77 K/ul 02/09/2017 Cbc With Differential Ord2 [place] ABS# 0.6 K/ul 02/09/2017 Cbc With Differential [...] 31.5 pg 03/29/2016 Cbc With Differential Ord2 [place]% 9.5 % 03/29/2016 Cbc With Differential Ord2 [...] 0.60 K/ul 03/29/2016 Cbc With Differential Ord2 [place] ABS# 0.4 K/ul 03/29/2016 Cbc With Differential Ord2 Eos ABS# 0.1 K/ul 03/29/2016 Cbc With Differential Ord2 Baso ABS# 0.0 K/ul 03/29/2016 Comp Metabolic Ljl294 NA 135 mEq/L 03/29/2016 Comp Metabolic Ort981 K 3.7 mEq/L 03/29/2016 Comp Metabolic Mrn746 CL 96 mEq/L 03/29/2016 Comp Metabolic Eyj740 CO2 30.0 mEq/L 03/29/2016 Comp Metabolic Lrm530 AN ION GAP 13 03/29/2016 Comp Metabolic Wjc758 GL UCOSE 102 mg/dL 03/29/2016 Comp Metabolic Xbn019 Cr eat 0.6 mg/dL 03/29/2016 Comp Metabolic Ykd075 eG FR 94 ml/min/1.73m2 03/29 Comp Metabolic Qnu868 BUN 15 mg/dL 03/29/2016 Comp Metabolic Pjp849 B/ C Ratio 23.4 Ratio 03/29/2016 Comp Metabolic Tyv003 CA LCIUM 9.1 mg/dL 03/29/2016 Comp Metabolic Nrd387 AL K PHOS 70 U/L 03/29/2016 Comp Metabolic Jpo165 T(SGOT) 35 U/L 03/29/2016 Comp Metabolic Afj499 AL T(SGPT) 27 U/L 03/29/2016 Comp Metabolic Ebl682 BI LI T 0.5 mg/dL 03/29/2016 Comp Metabolic Cue528 AL BUMIN 4.2 g/dL 03/29/2016 Comp Metabolic Ihd073 TP RO 6.6 g/dL 03/29/2016 Comp Metabolic Ltn680 GL OB 2.4 g/dL 03/29/2016 Comp Metabolic Zvf871 A/ G Ratio 1.7 Ratio 03/29/2016 Comp Metabolic Pcm799 Os mo 271 mOsmo 03/29/2016 Tsh Ord6 hTSH II 1.17 uIU/mL 03/29/2016 B12 Syo930 B12 838.00 pg/ml 09/02/2015 Tsh Ord6 hTSH [...] Ord2 RDW 15.1 % 09/02/2015 Comp Metabolic Zvv373 NA 135 mEq/L 09/02/2015 Comp Metabolic Jme701 K 3.4 mEq/L 09/02/2015 Comp Metabolic Xbe177 CL 95 mEq/L 09/02/2015 Comp Metabolic Oai872 CO2 27.0 mEq/L 09/02/2015 Comp Metabolic Luy305 AN ION GAP 16 09/02/2015 Comp Metabolic Lwz711 GL UCOSE 94 mg/dL 09/02/2015 Comp Metabolic Bcz049 Cr eat 0.7 mg/dL 09/02/2015 Comp Metabolic Mja141 eG FR 87 ml/min/1.73m2 09/02 Comp Metabolic Zri626 BUN 18 mg/dL 09/02/2015 Comp Metabolic Aae212 B/ C Ratio 26.1 Ratio 09/02/2015 Comp Metabolic Fkh657 CA LCIUM 9.0 mg/dL 09/02/2015 Comp Metabolic Rdh464 AL K PHOS 67 U/L 09/02/2015 Comp Metabolic Fty125 T(SGOT) 30 U/L 09/02/2015 Comp Metabolic Tss572 AL T(SGPT) 21 U/L 09/02/2015 Comp Metabolic Fqc606 BI LI T 0.6 mg/dL 09/02/2015 Comp Metabolic Mko796 AL BUMIN 4.3 g/dL 09/02/2015 Comp Metabolic Eqe533 TP RO 6.8 g/dL 09/02/2015 Comp Metabolic Dmx056 GL OB 2.5 g/dL 09/02/2015 Comp Metabolic Alg887 A/ G Ratio 1.7 Ratio 09/02/2015 Comp Metabolic Vhx549 Os mo 272 mOsmo 09/02/2015 Lipid Ord30 [...] pain 01/22/2018 Neurologic No syncope Psychiatric anxiety 04/3 Constitutional No recent illness 01/01/2018 Constitutional No [...] normal 12/31/2018 None Full Exam - General 1995 Ears/Nose/Throat lips/teeth/gingiva Overall: benign lips 12/31/2018 None Full Exam - General 1995 Ears/Nose/Throat [...] Procedure Codes Date TRIM SKIN LESION CPT-4: 96020 01/09/2019 TRIM SKIN LESIONS 2 TO 4 CPT-4: 27072 01/09/2019 ADMIN INFLUENZA VIRU S VAC CPT-4: G0008 06/21/2018 FLU VACC PRSV FREE I NC ANTIG CPT-4: 59962 06/21/2018 ADMIN INFLUENZA VIRU S VAC CPT-4: G0008 06/21/2017 FLU VACC PRSV FREE I NC ANTIG CPT-4: 66146 06/21/2017 ADMIN INFLUENZA VIRU S VAC CPT-4: G0008 06/24/2016 FLU VACC 4 CRISTINE 3 YRS PLUS IM Formatting Model/CDA Sections, Assigned to/Carmen Solis SNOMED CT: 25904549 CPT-4: 22620Ugfwjmq 06/24/2016 ADMIN INFLUENZA VIRU S VAC CPT-4: G0008 06/19/2015 FLU VACC 4 CRISTINE 3 YRS PLUS IM Formatting Model/CDA Sections, Assigned to/Carmen Solis SNOMED CT: 09309016 CPT-4: 35559Snlyfaa 06/19/2015 Vital Signs Date Vital 01/09/2019 Blood Pressure 1: 132/62 Code: 8480-6 BMI: 15.8 Code: 38490-8 Heart Rate 1: 69 bpm Height: 5'2" SpO2: 98% Weight: 88 lbs 12/31/2018 Blood Pressure 1: 140/52 Code: 8480-6 BMI: 16.2 Code: 44551-7 Heart Rate 1: 70 bpm Height: 5'2" SpO2: 95% Weight: 90 lbs 09/05/2018 Blood Pressure 1: 138/74 Code: 8480-6 BMI: 16.1 Code: 68963-7 Heart Rate 1: 69 bpm Height: 5'2" SpO2: 98% Weight: 89 lbs 8 oz 08/15/2018 Blood Pressure 1: 142/72 Code: 8480-6 BMI: 16.3 Code: 22550-6 Heart Rate 1: 66 bpm Height: 5'2" SpO2: 99% Weight: 90 lbs 8 oz 05/29/2018 Blood Pressure 1: 140/70 Code: 8480-6 BMI: 16.2 Code: 66223-8 Heart Rate 1: 67 bpm Height: 5'2" SpO2: 99% Weight: 90 lbs 05/14/2018 Blood Pressure 1: 146/68 Code: 8480-6 BMI: 16.0 Code: 68646-0 Heart Rate 1: 70 bpm Height: 5'2" SpO2: 98% Weight: 89 lbs 04/18/2018 Blood Pressure 1: 126/68 Code: 8480-6 BMI: 15.7 Code: 46086-8 Heart Rate 1: 81 bpm Height: 5'2" SpO2: 99% Weight: 87 lbs 01/22/2018 Blood Pressure 1: 136/76 Code: 8480-6 BMI: 15.8 Code: 59517-3 Heart Rate 1: 73 bpm Height: 5'2" SpO2: 99% Weight: 88 lbs 01/01/2018 Blood Pressure 1: 148/76 Code: 8480-6 BMI: 15.8 Code: 99574-6 Heart Rate 1: 74 bpm Height: 5'2" SpO2: 98% Weight: 88 lbs 12/12/2017 Blood Pressure 1: 140/72 Code: 8480-6 BMI: 15.8 Code: 56436-7 Heart Rate 1: 65 bpm Height: 5'2" SpO2: 96% Weight: 88 lbs 09/13/2017 Blood Pressure 1: 138/70 Code: 8480-6 BMI: 15.9 Code: 29389-9 Heart Rate 1: 74 bpm Height: 5'2" SpO2: 99% Weight: 88 lbs 8 oz 06/21/2017 Blood Pressure 1: 122/50 Code: 8480-6 BMI: 15.3 Code: 50274-3 Heart Rate 1: 69 bpm Height: 5'2" SpO2: 99% Weight: 85 lbs 05/25/2017 Blood Pressure 1: 138/72 Code: 8480-6 Heart Rate 1: 77 bpm Height: 5'2" SpO2: 98% Weight: 05/16/2017 Blood Pressure 1: 136/78 Code: 8480-6 Heart Rate 1: 86 bpm Height: 5'2" SpO2: 98% Weight: 02/15/2017 Blood Pressure 1: 144/78 Code: 8480-6 BMI: 15.4 Code: 94084-7 Heart Rate 1: 65 bpm Height: 5'2" SpO2: 98% Weight: 85 lbs 8 oz 11/22/2016 Blood Pressure 1: 140/58 Code: 8480-6 BMI: 14.8 Code: 33497-1 Heart Rate 1: 79 bpm Height: 5'2" SpO2: 99% Weight: 82 lbs 09/15/2016 BMI: 16.0 Code: 45270-9 Height: 5'2" Weight: 89 lbs 09/07/2016 Blood Pressure 1: 130/62 Code: 8480-6 BMI: 16.2 Code: 78355-7 Heart Rate 1: 71 bpm Height: 5'2" SpO2: 98% Weight: 90 lbs 07/06/2016 Blood Pressure 1: 144/76 Code: 8480-6 BMI: 15.8 Code: 34584-1 Heart Rate 1: 78 bpm Height: 5'2" SpO2: 99% Weight: 88 lbs 04/06/2016 Blood Pressure 1: 148/58 Code: 8480-6 BMI: 16.2 Code: 66641-2 Heart Rate 1: 64 bpm Height: 5'2" SpO2: 97% Weight: 90 lbs 01/06/2016 Blood Pressure 1: 146/72 Code: 8480-6 BMI: 16.6 Code: 94705-7 Heart Rate 1: 62 bpm Height: 5'2" SpO2: 99% Weight: 92 lbs 09/02/2015 Blood Pressure 1: 132/70 Code: 8480-6 BMI: 16.6 Code: 67822-9 Heart Rate 1: 77 bpm Height: 5'2" SpO2: 98% Weight: 92 lbs 06/15/2015 Blood Pressure 1: 144/60 Code: 8480-6 BMI: 16.7 Code: 23749-1 Heart Rate 1: 66 bpm Height: 5'2" SpO2: 97% Weight: 93 lbs 03/04/2015 Blood Pressure 1: 120/80 Code: 8480-6 BMI: 15.8 Code: 68128-5 Heart Rate 1: 74 bpm Height: 5'2" [...] Factors me dication 01/09/2019 None Pertinent Findings dialex ziness 01/09/2019 -weakness sometimes when she needs [...] shoulder 01/22/2018 None shoulder pain Quality ac [place] 01/22/2018 None shoulder pain Quality co nstant [...] nstant 01/01/2018 None shoulder pain Quality ac [place] 01/01/2018 None shoulder pain Quality wo rsening [...] Quality chr onic 07/06/2016 None hypertension Quality robnison barriga hypertension 07/06/2016 None hypertension Onset and [...] Encounters Encounter Performer Loca tion Codes Date ([id number]) [id number] EST. P ATIENT, LEVEL IV Diagnosis: Essential [...] Corns and callosities[ICD10: L84] Anum Bradshaw MD, TRACY [facility] CPT-[facility]: 21599 01/09/2019 18448 EST. PATIENT, LEVEL IV Diagnosis: Dysuria[ICD10: R30.0] Kala Bradshaw MD, [facility] CPT-4: 16602 12/31/2018 ([id number]) 85540 EST. P ATIENT, LEVEL IV Diagnosis: Essential (primary) hypertension[ICD10: I10] Diagnosis: Rash and other nonspecific skin eruption[ICD10: R21] Anum Bradshaw MD, [facility] CPT-4: 40687 09/05/2018 ([id number]) 38398 EST. P ATIENT, LEVEL IV Diagnosis: Essential (primary) hypertension[ICD10: I10] Diagnosis: Tinea barbae and tinea capitis[ICD10: B35.0] Diagnosis: Unsteadiness on feet[ICD10: R26.81] Diagnosis: Weakness[ICD10: R53.1] Anum Bradshaw MD, [facility] CPT-4: 14162 08/15/2018 ([id number]) 78576 EST. P ATIENT, LEVEL III Diagnosis: Rash and other nonspecific skin eruption[ICD10: R21] Diagnosis: Other allergic rhinitis[ICD10: J30.89] Diagnosis: Gastro-esophageal reflux disease without esophagitis[ICD10: K21.9] Rosalinda Bradshaw MD, [facility] CPT-4: 64326 05/29/2018 ([id number]) 35935 EST. P ATIENT, LEVEL III Diagnosis: Rash and other nonspecific skin eruption[ICD10: R21] Rosalinda Bradshaw MD, [facility] CPT-4: 07242 05/14/2018 ([id number]) 47070 EST. P ATIENT, LEVEL IV Diagnosis: Essential (primary) hypertension[ICD10: I10] Diagnosis: Underweight[ICD10: R63.6] Diagnosis: Mixed hyperlipidemia[ICD10: E78.2] Anum Bradshaw MD, [facility] CPT- 4: 80183 04/18/2018 ([id number]) 05018 EST. P ATIENT, LEVEL III Diagnosis: Bicipital tendinitis, left shoulder[ICD10: M75.22] Anum Bradshaw MD, C CPT-4: 56798 01/22/2018 ([id number]) 18497 EST. P ATIENT, LEVEL III Diagnosis: Pain in right shoulder[ICD10: M25.511] Diagnosis: Bicipital tendinitis, right shoulder[ICD10: M75.21] Anum Bradshaw MD, [facility] CPT-4: 13970 01/01/2018 ([id number]) 46542 EST. P ATIENT, LEVEL IV Diagnosis: Essential (primary) hypertension[ICD10: I10] Diagnosis: Underweight[ICD10: R63.6] Diagnosis: Mixed hyperlipidemia[ICD10: E78.2] Diagnosis: Actinic keratosis[ICD10: L57.0] Anum Bradshaw MD, [facility] CPT-4: 83339 12/12/2017 ([id number]) 09192 EST. P ATIENT, LEVEL III Diagnosis: Essential (primary) hypertension[ICD10: I10] Diagnosis: Fracture of unspecified part of neck of left femur, subsequent encounter for closed fracture with routine healing[ICD10: S72.002D] Diagnosis: Underweight[ICD10: R63.6] Anum Bradshaw MD, [facility] CPT-4: 98326 09/13/2017 ([id number]) 57123 EST. P ATIENT, LEVEL IV Diagnosis: Mixed hyperlipidemia[ICD10: E78.2] Diagnosis: Essential (primary) hypertension[ICD10: I10] Diagnosis: Vitamin B12 deficiency anemia due to intrinsic factor deficiency[ICD10: D51.0] Diagnosis: Gastro-esophageal reflux disease with esophagitis[ICD10: K21.0] Diagnosis: Age-related osteoporosis without current pathological fracture[ICD10: M81.0] Diagnosis: Encounter for immunization[ICD10: Z23] Anum Bradshaw MD, [facility] CPT-4: 23926 06/21/2017 ([id number]) 14618 EST. P ATIENT, LEVEL III Diagnosis: Fracture of unspecified part of neck of left femur, subsequent encounter for closed fracture with routine healing[ICD10: S72.002D] Diagnosis: Underweight[ICD10: R63.6] Diagnosis: Gastro-esophageal reflux disease with esophagitis[ICD10: K21.0] Anum Bradshaw MD, [facility] CPT-4: 38521 05/25/2017 ([id number]) 12211 EST. P ATIENT, LEVEL IV Diagnosis: Essential (primary) hypertension[ICD10: I10] Diagnosis: Fracture of unspecified part of neck of left femur, subsequent encounter for closed fracture with routine healing[ICD10: S72.002D] Diagnosis: Generalized anxiety disorder[ICD10: F41.1] Anum Bradshaw MD, [facility] CPT-4: 04855 05/16/2017 ([id number]) 93223 EST. P ATIENT, LEVEL IV Diagnosis: Essential (primary) hypertension[ICD10: I10] Diagnosis: Mixed hyperlipidemia[ICD10: E78.2] Diagnosis: Generalized anxiety disorder[ICD10: F41.1] Anum Bradshaw MD, [facility] CPT-4: 36093 02/15/2017 ([id number]) 88047 EST. P ATIENT, LEVEL IV Diagnosis: Mixed hyperlipidemia[ICD10: E78.2] Diagnosis: Generalized anxiety disorder[ICD10: F41.1] Diagnosis: Essential (primary) hypertension[ICD10: I10] Diagnosis: Gastro-esophageal reflux disease with esophagitis[ICD10: K21.0] Anum Bradshaw MD, [facility] CPT-4: 88127 11/22/2016 17579 EST. PATIENT, LEVEL III Diagnosis: Inflamed seborrheic keratosis[ICD10: L82.0] Kala Bradshaw MD, [facility] CPT-4: 29982 09/15/2016 ([id number]) 37022 EST. P ATIENT, LEVEL IV Diagnosis: Essential (primary) hypertension[ICD10: I10] Diagnosis: Mixed hyperlipidemia[ICD10: E78.2] Diagnosis: Generalized anxiety disorder[ICD10: F41.1] Anum Bradshaw MD, [facility] CPT-4: 79131 09/07/2016 ([id number] 02296 EST. P ATIENT, LEVEL IV Diagnosis: Essential (primary) hypertension[ICD10: I10] Diagnosis: Frequency of micturition[ICD10: R35.0] Diagnosis: Age-related osteoporosis without current pathological fracture[ICD10: M81.0] Anum Bradshaw MD, [facility] CPT-4: 70789 07/06/2016 ([id number]) 54611 EST. P ATIENT, LEVEL IV Diagnosis: Essential (primary) hypertension[ICD10: I10] Diagnosis: Mixed hyperlipidemia[ICD10: E78.2] Diagnosis: Gastro-esophageal reflux disease with esophagitis[ICD10: K21.0] Anum Bradshaw MD, [facility] CPT-4: 00317 04/06/2016 77749 EST. PATIENT, LEVEL IV Diagnosis: Essential (primary) hypertension[ICD10: I10] Diagnosis: Gastro-esophageal reflux disease with esophagitis[ICD10: K21.0] Kala Bradshaw MD, [facility] CPT-4: 66967 01/06/2016 ([id number]) 47752 EST. P ATIENT, LEVEL IV Diagnosis: Essential (primary) hypertension[ICD10: I10] Diagnosis: Gastro-esophageal reflux disease with esophagitis[ICD10: K21.0] Diagnosis: Other dietary vitamin B12 deficiency anemia[ICD10: D51.3] Diagnosis: Vitamin B12 deficiency anemia due to intrinsic factor deficiency[ICD10: D51.0] Diagnosis: Occlusion and stenosis of unspecified carotid artery[ICD10: I65.29] Anum Bradshaw MD, [facility] CPT-4: 36535 09/02/2015 ([id number] 54255 EST. P ATIENT, LEVEL III Diagnosis: Carpal tunnel syndrome[ICD9: 354.0] Diagnosis: Inflamed seborrheic keratosis[ICD9: 702.11] Rosalinda Bradshaw MD, [facility] CPT-4: 81994 06/15/2015 ([id number]) [facility] LEVEL 4 Diagnosis: ESSENTIAL HYPERTENSION[ICD9: 401.9] Diagnosis: ESOPHAGEAL REFLUX[ICD9: 530.81] Diagnosis: HYPERLIPIDEMIA[ICD9: 272.4] [facility] CPT-4: 00549 03/04/2015 Plan of Care Planned Activity Notes C odes Status Date Visit Plan: Hypertension - well con trolled - continue with current medications, continue with no added salt diet. Pt has been encouraged to exercise daily. The pt has been advised to call the office if there are any acute concerns about change in blood pressure readings at home. [place] on toe - debrided with scalpel today. [...] caloric intake. 01/09/2019 Appointment: [phone] [id number] (15 min) Moderate 01/09/2019 Patient Education: Patient Medication Summary Completed 01/09/2019 Patient Education: Hypertension Completed 01/09/2019 Patient Education: Cholesterol Management Completed 01/09/2019 Visit Plan: UTI - pt with positive urinalysis - culture sent if appropriate. Antibiotic electronically prescribed to pt's pharmacy of choice. Pt to call if symptoms do not improve. 12/31/2018 Appointment[phone] [facility] (30 min) Complex 12/31/2018 Patient Education: Patient [...] for betamethasone. 09/05/2018 Appointment: Anum Bradshaw WPtel: [facility] (15 min) Moderate 09/05/2018 Patient Education: Patient Medication Summary Completed 09/05/2018 Patient Education: Hypertension Completed 09/05/2018 Visit Plan: Hypertension - well con trojayeshed - continue with current medications, continue with [...] not improving. 08/15/2018 Appointment: Anum Bradshaw WPtel: [facility] (15 min) Moderate 08/15/2018 Patient Education: Patient Medication Summary Completed 08/15/2018 Patient Education: Hypertension Completed 08/15/2018 Appointment: Anum Bradshaw WPtel: [facility] (15 min) Moderate 2018 Appointment: Injection 06/21/2018 [...] ketoconazole shampoo 05/29/2018 Appointment: Rosalinda Bermudez WPtel: [phone] [place] (30 min) Complex 05/29/2018 Patient Education: [...] if needed 05/14/2018 Appointment: Rosalinda Bermudez WPtel: [phone] [phone] [place] (30 min) Complex 05/14/2018 Patient Education: [...] to medications. 04/18/2018 Appointment: Anum Bradshaw WPtel[facility] [place] (15 min) Moderate 04/18/2018 Patient Education: Patient Medication Summary Completed 04/18/2018 Appointment: Injection 03/08/2018 Visit Plan: Left shoulder pain - bi cep tendonitis - continue with physical therapy at [facility]. Use voltaren gel on left shoulder now - continue with therapy on right shoulder. 01/22/2018 Appointment: [facility] Bradshaw [phone] [id number] (15 min) Moderate 01/22/2018 Patient Education: Patient [...] tendonitis - referral to physical therapy at [facility] 01/01/2018 Appointment: [facility] Bradshaw [phone] [facility] (15 min) Moderate 01/01/2018 Patient Education: Patient [...] 2 weeks 12/12/2017 Appointment: [facility] Bradshaw [facility] [phone] [facility] (15 min) Moderate 12/12/2017 Patient Education: Patient [...] - healing. 09/13/2017 Appointment: Anum Bradshaw WPtel: [facility] (15 min) Moderate 09/13/2017 Patient Education: [...] not improving. 06/21/2017 Appointment: Anum Bradshaw WPtel: [facility] (15 min) Moderate 06/21/2017 Patient Education: Patient Medication Summary Completed 06/21/2017 Visit Plan: Esophageal Reflux - the patient has been taking medication as directed and her symptoms are improved. Hip fracture - continue with supportive care, nonweight bearing. Underweight - increase protein intake, higher calorie diet, use wheelchair to decrease excessive caloric expenditure. 05/25/2017 Appointment: Anum Bradshaw WPtel: [facility] (15 min) Moderate 05/25/2017 Patient Education: Patient [...] medications. 05/16/2017 Appointment: Anum Bradshaw WPtel: [phone] [facility] (15 min) Moderate 05/16/2017 Patient Education: [...] to medications. 02/15/2017 Appointment: [phone] [facility] (15 min) Moderate 02/15/2017 Patient Education: Patient Medication Summary Completed 02/15/2017 Patient Education: Hypertension Completed 02/15/2017 Care Plan: Referral Order SNOMED-CT : [id number] Pending 02/15/2017 Appointment: Anum Bradshaw WPtel: [phone] [facility] (15 min) Moderate 01/11/2017 Visit Plan: [...] current treatment 11/22/2016 Appointment: [facility] Bradshaw [phone] [facility] (15 min) Moderate 11/22/2016 Patient Education: Patient Medication Summary Completed 11/22/2016 Patient Education: Hypertension Completed 11/22/2016 App[facility]ment: [phone] (30 min) Complex 09/16/2016 Visit Plan: Lesion to left side of nose - pt had been prescribed effudex cream but has been afraid to apply it - given instructions for application, pt is to call if pustular drainage, or any other acute concern s. 09/15/2016 Patient Education: Patient Medication Summary Completed 09/15/2016 Visit Plan: Hypertension - well con garrettlled [...] symptoms. 09/07/2016 Appointment: [facility] Bradshaw [facility] [phone] [facility] (15 min) Moderate 09/07/2016 Patient Education: Patient [...] ua negative 07/06/2016 Appointment: [facility] Bradshaw [facility]el[facility] [phone] [facility] (15 min) Moderate 07/06/2016 Patient Education: Patient [...] improving. 04/06/2016 Appointment: [facility] Bradshaw [facility]el[facility] [phone] [facility] (15 min) Moderate 04/06/2016 Patient Education: Patient [...] 09/02/2015 Care Plan: Referral Order SNOMED-CT : [id number] Ordered 09/02/2015 Appointment: Injection 06/19/2015 Patient Education: [...] not improving. 03/04/2015 Appointment: Anum Bradshaw WPtel: [address] [place], [place] [address] [place] ([place]) New Patient 03/04/2015 Patient Education: Patient Medication Summary Completed 03/04/2015 Patient Education: Hypertension Completed 03/04/2015 Patient Education: Patient Medication Summary Completed 02/10/2015 Referral: Dickson Forde Referral Appointment Requested Referral: Kenneth Sykes Referral Appointment Requested Instructions Comment . Hypertension - wel l controlled - [...] change in blood pressure readings at home. [place] on toe - debrided with scalpel today. [...] in 2 weeks -sooner if needed . Lesion to left joleen e of nose - pt had been prescribed effudex cream but has been afraid to apply it - given instructions for application, pt is to call if pustular drainage, or any other acute concerns. . Carpel tunnel synd jorge-recommend wrist brace [...] - continue with physical therapy at [facility]. Use voltaren gel on left shoulder now [...] cream and call if not improving. . Hypertension - well controlled - continue with current medications, continue with no added salt diet. Pt has been encouraged to exercise daily. The pt has been advised to call the office if there are any acute concerns about change in blood pressure readings at home. Right shoulder pain - bicep tendonitis - referral to physical therapy at [facility] . Esophageal Reflux - the patient has [...]
--- OUTSIDE RECORDS SUMMARY | 2019-12-29 11:15 | XMS REPORT | CCD ---
Author Author Ashley Bradshaw Organization [facility] Address [address] [place] [address] Phone Care Team Providers Care Vice President Lending Name Role Phone PP Unavailable CCM Unavailable Summary Purpose Interface Exchange Insurance Providers Payer name Policy type / Coverage type Covered green party ID Effective Begin Date Effective End Date WPS Medicare Part B Medicare Part B [id number] Unknown Unknown CIGNA Medicare Part B [id number] Unknown Unknown Family history Father Diagnosis Age At Onset Coronary Artery Disease Unknown Mother Diagnosis Age At Onset Anemia Unknown Skin cancer Unknown Hypertension Unknown Cancer Unknown Breast cancer Unknown Social History Social History Element Codes Description Effective Dates Marital status Unknown M arrkimberly Shahram 03/04/2015 Number of children Unknown 3 03/04/[address]: 920140000 Never smoker 03/04/[address]: 593364217 Never drinks alcohol 03/04/2015 Allergies, Adverse Reactions, Alerts Substance Reaction Codes Entered Date Inactivated Date Status NEOSPORIN RxNorm: 121200 01/06/2016 No Inactive Date Active Past Medical [...] Date Stop Date Sta tus Fill Instructions escitalopram 5 mg ta blet RxNorm: 787949 TAKE 1 TABLET BY MOUT H EVERY EVENING 01/14/2019 01/08/2020 Ac tive simvastatin 20 mg ta blet RxNorm: 875954 TAKE 1 TABLET BY MOUT H EVERY DAY 01/14/2019 01/08/2020 Ac tive Keflex 500 mg capsule RxNorm: 622876 1 Capsule(s) PO TID 12/31/2018 01/09/2019 Inactive Pyridium 200 mg tablet RxNorm: 0560367 1 Tablet(s) PO TID 12/31/2018 01/01/2019 Inactive esomeprazole magnesi um 40 mg capsule,delayed release RxNorm: 101974 Capsule(s) TAKE 1 CAPSULE BY MOUTH DAILY 11/27/2018 02/19/2020 Active wants to pay henry Zantac 150 mg tablet RxNorm: 843989 1 Tablet(s) PO BID 11/02/2018 11/26/2018 Inactive Zantac 150 mg tablet RxNorm: 718580 1 Tablet(s) PO BID 11/02/2018 11/01/2018 Inactive sucralfate 100 mg/mL oral suspension RxNorm: 635115 10 Milliliter(s) per 1 gram PO QID 10/08/2018 10/02/2019 Active diltiazem 30 mg tablet RxNorm: 913050 1 Tablet(s) PO QID 10/08/2018 10/02/2019 Active betamethasone nasir te 0.1 % topical cream RxNorm: 048151 1 Application TOP BID 09/05/2018 11/03/2018 In active ketoconazole 2 % top ical cream RxNorm: 419809 1 Application TOP BID to posterior scalp x 2 weeks or until the skin is healed 08/15/2018 08/28/2018 Inactive triamterene 37.5 mg- hydrochlorothiazide 25 mg tablet RxNorm: 749800 Tablet(s) 1 Tablet(s) PO daily 07/12/2018 01/07/2019 Inactive PLEASE SEND REFILL REQUESTS ELECTRONICALLY simvastatin 20 mg ta blet RxNorm: 501639 TAKE 1 TABLET BY MOUT H EVERY DAY 07/12/2018 01/07/2019 In active ketoconazole 2 % sha mpoo RxNorm: 259340 1 Application TOP BIW 05/14/2018 No Stop Date Active simvastatin 20 mg ta blet RxNorm: 485553 TAKE 1 TABLET BY MOUT H EVERY DAY 03/01/2018 07/11/2018 In active triamterene 37.5 mg- hydrochlorothiazide 25 mg tablet RxNorm: 793095 Tablet(s) 1 Tablet(s) PO daily 02/06/2018 07/11/2018 Inactive PLEASE SEND REFILL REQUESTS ELECTRONICALLY Voltaren 1 % topical gel RxNorm: 263636 2 Gram(s) TOP TID to shoulders 01/01/2018 04/30/2018 In active sucralfate 100 mg/mL oral suspension RxNorm: 162704 10 Milliliter(s) per 1 gram PO QID 12/12/2017 06/09/2018 Inactive refill 3 month supply- 1gm/10ml simvastatin 20 mg ta blet RxNorm: 803985 TAKE 1 TABLET BY MOUT H EVERY DAY 12/04/2017 02/28/2018 In active escitalopram 5 mg ta blet RxNorm: 902893 1 Tablet(s) PO QPM 10/26/2017 01/13/2019 Inactive esomeprazole magnesi um 40 mg capsule,delayed release RxNorm: 619712 TAKE 1 CAPSULE BY MOUTH DAILY 10/26/2017 11/01/2018 Inactive mupirocin 2 % topica l ointment RxNorm: 044020 APPLY TO AFFECTED ARE A(S) ONCE DAILY 10/16/2017 11/28/2017 In active diltiazem 30 mg tablet RxNorm: 729601 1 Tablet(s) PO QID 10/09/2017 10/03/2018 Inactive triamterene 37.5 mg- hydrochlorothiazide 25 mg tablet RxNorm: 358970 1 Tablet(s) PO daily 07/28/2017 01/23/2018 Inactive fluticasone 50 mcg/a ctuation nasal spray,suspension RxNorm: 7967726 2 [place] NASAL daily 07/20/2017 01/08/2019 Inactive diltiazem 30 mg tablet RxNorm: 027201 1 Tablet(s) PO QID TAKE 1 TABLET BY MOUT H FOUR TIMES DAILY 07/13/2017 10/08/2017 Inactive simvastatin 20 mg ta blet RxNorm: 506746 TAKE 1 TABLET BY MOUT H EVERY DAY 06/08/2017 12/03/2017 In active Nexium 40 mg capsule ,delayed release RxNorm: 379277 1 Capsule(s) PO daily 05/25/2017 11/27/2017 In active esomeprazole magnesi um 40 mg capsule,delayed release RxNorm: 053637 Capsule(s) TAKE 1 CAPSULE BY MOUTH DAILY 05/17/2017 02/10/2018 Inactive diltiazem 30 mg tablet RxNorm: 971628 Tablet(s) TAKE 1 TABLET BY MOUTH FOUR TI MES DAILY 05/16/2017 07/12/2017 Inactive diltiazem 30 mg tablet RxNorm: 460820 TAKE 1 TABLET BY MOUTH THREE TIMES DAILY 02/09/2017 05/15/2017 In active Zofran ODT 4 mg disi ntegrating tablet RxNorm: 358579 1 Tablet(s) PO Q6 as needed 11/16/2016 11/22/2016 In active Protonix 40 mg table t,delayed release RxNorm: 440025 1 Tablet(s) PO daily 11/16/2016 12/15/2016 In active Protonix 40 mg table t,delayed release RxNorm: 602073 1 Tablet(s) PO daily 11/16/2016 11/15/2016 In active Zofran ODT 4 mg disi ntegrating tablet RxNorm: 855223 1 Tablet(s) PO Q6 as needed 11/16/2016 11/15/2016 In active escitalopram 5 mg ta blet RxNorm: 390717 1 Tablet(s) PO QPM 10/28/2016 10/22/2017 Inactive escitalopram 5 mg ta blet RxNorm: 434158 1 Tablet(s) PO QPM 10/05/2016 10/27/2016 Inactive mupirocin 2 % topica l ointment RxNorm: 576092 1 Application TOP yao ly APPLY TO AFFECTED AREA(S) TOPICALLY DAILY 09/07/2016 11/05/2016 Inactive Efudex 5 % topical c ream RxNorm: 834882 1 TOP BID 09/07/2016 09/16/2016 Inactive escitalopram 5 mg ta blet RxNorm: 959931 1 Tablet(s) PO QPM 09/07/2016 10/04/2016 Inactive sucralfate 100 mg/mL oral suspension RxNorm: 621515 10 Milliliter(s) per 1 gram PO QID 08/03/2016 07/28/2017 Inactive refill 3 month supply- 1gm/10ml clorazepate dipotass ium 3.75 mg tablet RxNorm: 664779 1 Tablet(s) PO QHS as needed insomnia 07/06/2016 08/14/2018 Inactive triamterene 37.5 mg- hydrochlorothiazide 25 mg tablet RxNorm: 295907 1 Tablet(s) PO daily 06/29/2016 06/23/2017 Inactive Nexium 40 mg capsule ,delayed release RxNorm: 634993 1 Capsule(s) PO daily 06/29/2016 07/05/2016 In active Bactroban 2 % topica l ointment RxNorm: 273544 APPLY TO AFFECTED ARE A(S) TOPICALLY DAILY 06/22/2016 09/06/2016 Inactive esomeprazole magnesi um 40 mg capsule,delayed release RxNorm: 689354 TAKE 1 CAPSULE BY MOUTH DAILY 06/13/2016 03/09/2017 Inactive simvastatin 20 mg ta blet RxNorm: 234089 1 Tablet(s) PO daily 05/16/2016 06/07/2017 Inactive simvastatin 20 mg ta blet RxNorm: 423325 1 Tablet(s) PO daily 05/12/2016 05/15/2016 Inactive famotidine 40 mg tablet RxNorm: 364478 TAKE 1 TABLET BY MOUTH DAILY 05/05/2016 01/29/2017 Inactive Bactroban 2 % topica l ointment RxNorm: 601503 APPLY TO AFFECTED ARE A(S) TOPICALLY DAILY 04/25/2016 05/01/2016 Inactive fluticasone 50 mcg/a ctuation nasal spray,suspension RxNorm: 5037208 2 [place] NASAL daily 03/23/2016 09/18/2016 Inactive fluticasone 50 mcg/a ctuation nasal spray,suspension RxNorm: 736503 2 [place] NASAL daily 03/07/2016 03/22/2016 Inactive Bactroban 2 % topica l ointment RxNorm: 637102 APPLY TO AFFECTED ARE A(S) TOPICALLY DAILY 02/29/2016 03/06/2016 Inactive diltiazem 30 mg tablet RxNorm: 239019 1 Tablet(s) PO TID 02/18/2016 02/08/2017 Inactive Bactroban 2 % topica l ointment RxNorm: 539292 1 Application TOP 01/08/2016 02/28/2016 Inactive clorazepate dipotass ium 3.75 mg tablet RxNorm: 344794 1 Tablet(s) PO daily 12/14/2015 06/10/2016 In active fluticasone 50 mcg/a ctuation nasal spray,suspension RxNorm: 883447 2 [place] NASAL daily 12/14/2015 02/11/2016 Inactive diltiazem 30 mg tablet RxNorm: 542553 1 Tablet(s) PO TID 09/03/2015 02/17/2016 Inactive simvastatin 20 mg ta blet RxNorm: 053449 1 Tablet(s) PO daily 08/24/2015 05/11/2016 Inactive triamterene 37.5 mg- hydrochlorothiazide 25 mg tablet RxNorm: 943699 1 Tablet(s) PO daily 07/09/2015 06/28/2016 Inactive clorazepate dipotass ium 15 mg tablet RxNorm: 691840 1 Tablet(s) PO daily 07/06/2015 07/06/2015 In active clorazepate dipotass ium 3.75 mg tablet RxNorm: 178405 1 Tablet(s) PO daily 07/06/2015 12/13/2015 In active esomeprazole magnesi um 40 mg capsule,delayed release RxNorm: 406196 1 Capsule(s) PO daily 06/26/2015 06/12/2016 Inactive famotidine 40 mg tablet RxNorm: 587891 1 Tablet(s) PO daily 06/26/2015 05/04/2016 Inactive diltiazem 30 mg tablet RxNorm: 197444 1 Tablet(s) PO TID 06/09/2015 09/02/2015 Inactive sucralfate 100 mg/mL oral suspension RxNorm: 181849 10 Milliliter(s) per 1 gram PO QID 04/28/2015 04/21/2016 Inactive refill 3 month supply- 1gm/10ml member I d [id number] sucralfate 100 mg/mL oral suspension RxNorm: 599492 10 Milliliter(s) per 1 gram PO QID 04/27/2015 04/27/2015 Inactive refill 3 month supply diltiazem 30 mg tablet RxNorm: 395471 1 Tablet(s) PO TID 02/18/2015 02/17/2015 Inactive diltiazem 30 mg tablet RxNorm: 104226 1 Tablet(s) PO TID 02/18/2015 05/18/2015 Inactive Vitamin D3 2,000 uni t tablet RxNorm: 566640 Tablet(s) PO daily No Start Date Active Nidia ODT oral RxNorm: 434075 oral No Start Date Active PreserVision Lutein oral RxNorm: [address] art Date Active Vitamin B-12 oral RxNorm: 50057 oral No Start Date Active Calcium 500 + D oral RxNorm: 719675 oral No Start Date Active ketoconazole 2 % [facility] mpoo RxNorm: 003435 1 TOP daily No Start Date Active ketoconazole 2 % [facility] mpoo RxNorm: 295656 TOP No St art Date Active melatonin 5 mg tablet RxNorm: 352260 Tablet(s) PO QHS as needed No Start Date Active vitamin B6-vitamin E -magnesium oral RxNorm: 458359 oral No S tart Date Active famotidine 40 mg tablet RxNorm: 177124 1 Tablet(s) PO daily No Start Date 06/25/2015 Inactive clorazepate dipotass ium 3.75 mg tablet RxNorm: 283532 1 Tablet(s) PO daily No Start Date 07/05/2015 Inactive Bactroban 2 % topica l ointment RxNorm: 788133 1 Application TOP No Start Date 01/07/2016 Inactive Carafate 1 gram tablet RxNorm: 274842 1 Tablet(s) PO QID No Start Date 04/26/2015 Inactive Zyrtec 10 mg tablet RxNorm: 9687827 1 Tablet(s) PO daily No Start Date 08/14/2018 Inactive esomeprazole magnesi um 40 mg capsule,delayed release RxNorm: 958584 Capsule(s) PO daily No Start Date 06/25/2015 Inactive fluticasone 50 mcg/a ctuation nasal spray,suspension RxNorm: 711362 2 [place] NASAL daily No Start Date 12/13/2015 Inactive Nexium 40 mg capsule ,delayed release RxNorm: 440543 1 Capsule(s) PO daily No Start Date 06/28/2016 Inactive triamterene 37.5 mg- hydrochlorothiazide 25 mg tablet RxNorm: 589827 1 Tablet(s) PO daily No Start Date 07/08/2015 Inactive simvastatin 20 mg ta blet RxNorm: 049795 1 Tablet(s) PO daily No Start Date [...] Item Item Code Result Date Comp Metabolic Ycx999 NA 134 mEq/L 01/09/2019 Comp Metabolic Uul114 K 3.4 mEq/L 01/09/2019 Comp Metabolic Dlc397 CL 94 mEq/L 01/09/2019 Comp Metabolic Skb498 CO2 30.0 mEq/L 01/09/2019 Comp Metabolic Cyu725 AN ION GAP 13 01/09/2019 Comp Metabolic Sra189 GL UCOSE 97 mg/dL 01/09/2019 Comp Metabolic Maf532 Cr eat 0.7 mg/dL 01/09/2019 Comp Metabolic Fhy206 eG FR 90 ml/min/1.73m2 01/09 Comp Metabolic Qqv708 BUN 18 mg/dL 01/09/2019 Comp Metabolic Wqu332 B/ C Ratio 27.3 Ratio 01/09/2019 Comp Metabolic Vws000 CA LCIUM 9.0 mg/dL 01/09/2019 Comp Metabolic Myg748 AL K PHOS 57 U/L 01/09/2019 Comp Metabolic Xgt690 T(SGOT) 33 U/L 01/09/2019 Comp Metabolic Xhf639 AL T(SGPT) 25 U/L 01/09/2019 Comp Metabolic Tui362 BI LI T 0.6 mg/dL 01/09/2019 Comp Metabolic Vnf896 AL BUMIN 4.5 g/dL 01/09/2019 Comp Metabolic Imb018 TP RO 6.9 g/dL 01/09/2019 Comp Metabolic Hys815 GL OB 2.4 g/dL 01/09/2019 Comp Metabolic Cnj043 A/ G Ratio 1.9 Ratio 01/09/2019 Comp Metabolic Mwk122 Os mo 270 mOsmo 01/09/2019 Lipid Ord30 CHOL 178 mg/dL 01/09/2019 Lipid Ord30 HDL 76.0 mg/dl 01/09/2019 Lipid Ord30 TRIG 73 mg/dL 01/09/2019 Lipid Ord30 LDL 87 mg/dL 01/09/2019 Lipid Ord30 C/HDL 2.3 Ratio 01/09/2019 B12 Ubr250 B12 >1500.00 pg/ml 01/09/2019 Tsh Ord6 TSH [...] 93.2 fl 01/09/2019 Cbc With Differential Ord2 [place]% 7.9 % 01/09/2019 Cbc With Differential Ord2 [...] 0.63 K/ul 01/09/2019 Cbc With Differential Ord2 [place] ABS# 0.5 K/ul 01/09/2019 Cbc With Differential Ord2 Eos ABS# 0.1 K/ul 01/09/2019 Cbc With Differential Ord2 Baso ABS# 0.0 K/ul 01/09/2019 Vitamin D 25 Oh [id number] VITAMIN D, 25 HYDROXY 64.38 ng/mL 01/09/2019 [...] 31.4 pg 04/18/2018 Cbc With Differential Ord2 [place]% 9.2 % 04/18/2018 Cbc With Differential Ord2 [...] 0.76 K/ul 04/18/2018 Cbc With Differential Ord2 [place] ABS# 0.5 K/ul 04/18/2018 Cbc With Differential [...] Ord15 CALCIUM 9.1 mg/dL 04/18/2018 Comp Metabolic Erw391 NA 130 mEq/L 12/07/2017 Comp Metabolic Qaz109 K 3.6 mEq/L 12/07/2017 Comp Metabolic Wpo895 CL 91 mEq/L 12/07/2017 Comp Metabolic Nfx354 CO2 29.0 mEq/L 12/07/2017 Comp Metabolic Xvb134 AN ION GAP 14 12/07/2017 Comp Metabolic Gng093 GL UCOSE 105 mg/dL 12/07/2017 Comp Metabolic Suw868 Cr eat 0.6 mg/dL 12/07/2017 Comp Metabolic Jqu964 eG FR 94 ml/min/1.73m2 12/07 Comp Metabolic Dax043 BUN 15 mg/dL 12/07/2017 Comp Metabolic Srw983 B/ C Ratio 23.4 Ratio 12/07/2017 Comp Metabolic Hvs382 CA LCIUM 9.3 mg/dL 12/07/2017 Comp Metabolic Pqc957 AL K PHOS 62 U/L 12/07/2017 Comp Metabolic Hwt471 T(SGOT) 31 U/L 12/07/2017 Comp Metabolic Ndx603 AL T(SGPT) 22 U/L 12/07/2017 Comp Metabolic Zht750 BI LI T 0.4 mg/dL 12/07/2017 Comp Metabolic Hss513 AL BUMIN 4.3 g/dL 12/07/2017 Comp Metabolic San579 TP RO 6.5 g/dL 12/07/2017 Comp Metabolic Grz527 GL OB 2.2 g/dL 12/07/2017 Comp Metabolic Hvv546 A/ G Ratio 2.0 Ratio 12/07/2017 Comp Metabolic Pzq395 Os mo 262 mOsmo 12/07/2017 Cbc With [...] 31.0 pg 12/07/2017 Cbc With Differential Ord2 [place]% 10.4 % 12/07/2017 Cbc With Differential Ord2 [...] 0.57 K/ul 12/07/2017 Cbc With Differential Ord2 [place] ABS# 0.5 K/ul 12/07/2017 Cbc With Differential [...] 32.3 pg 06/21/2017 Cbc With Differential Ord2 [place]% 10.1 % 06/21/2017 Cbc With Differential Ord2 [...] 0.65 K/ul 06/21/2017 Cbc With Differential Ord2 [place] ABS# 0.5 K/ul 06/21/2017 Cbc With Differential Ord2 Eos ABS# 0.2 K/ul 06/21/2017 Cbc With Differential Ord2 Baso ABS# 0.0 K/ul 06/21/2017 Comp Metabolic Sdy667 NA 133 mEq/L 06/21/2017 Comp Metabolic Ckj140 K 4.0 mEq/L 06/21/2017 Comp Metabolic Efs333 CL 94 mEq/L 06/21/2017 Comp Metabolic Lrl909 CO2 25.0 mEq/L 06/21/2017 Comp Metabolic Xdp793 AN ION GAP 18 06/21/2017 Comp Metabolic Qbh761 GL UCOSE 88 mg/dL 06/21/2017 Comp Metabolic Cdn831 Cr eat 0.6 mg/dL 06/21/2017 Comp Metabolic Vpj489 eG FR 94 ml/min/1.73m2 06/21 Comp Metabolic Sox131 BUN 16 mg/dL 06/21/2017 Comp Metabolic Dve937 B/ C Ratio 25.0 Ratio 06/21/2017 Comp Metabolic Hqx228 CA LCIUM 9.1 mg/dL 06/21/2017 Comp Metabolic Krw863 AL K PHOS 65 U/L 06/21/2017 Comp Metabolic Edh531 T(SGOT) 31 U/L 06/21/2017 Comp Metabolic Xmp165 AL T(SGPT) 20 U/L 06/21/2017 Comp Metabolic Qyd311 BI LI T 0.5 mg/dL 06/21/2017 Comp Metabolic Had688 AL BUMIN 4.3 g/dL 06/21/2017 Comp Metabolic Xhe532 TP RO 6.6 g/dL 06/21/2017 Comp Metabolic Qui087 GL OB 2.3 g/dL 06/21/2017 Comp Metabolic Upy047 A/ G Ratio 1.8 Ratio 06/21/2017 Comp Metabolic Dbj552 Os mo 267 mOsmo 06/21/2017 Lipid Ord30 CHOL 188 mg/dL 06/21/2017 Lipid Ord30 HDL 77.0 mg/dl 06/21/2017 Lipid Ord30 TRIG 66 mg/dL 06/21/2017 Lipid Ord30 LDL 98 mg/dL 06/21/2017 Lipid Ord30 C/HDL 2.4 Ratio 06/21/2017 Tsh Ord6 hTSH II 1.32 uIU/mL 06/21/2017 Comp Metabolic Boy727 NA 135 mEq/L 02/09/2017 Comp Metabolic Peh967 K 4.0 mEq/L 02/09/2017 Comp Metabolic Szd977 CL 96 mEq/L 02/09/2017 Comp Metabolic Ved980 CO2 28.0 mEq/L 02/09/2017 Comp Metabolic Ptm978 AN ION GAP 15 02/09/2017 Comp Metabolic Jbd054 GL UCOSE 101 mg/dL 02/09/2017 Comp Metabolic Eoo059 Cr eat 0.7 mg/dL 02/09/2017 Comp Metabolic Lcp505 eG FR 83 ml/min/1.73m2 02/09 Comp Metabolic Fpp441 BUN 17 mg/dL 02/09/2017 Comp Metabolic Vos266 B/ C Ratio 23.9 Ratio 02/09/2017 Comp Metabolic Hic713 CA LCIUM 9.3 mg/dL 02/09/2017 Comp Metabolic Arj452 AL K PHOS 51 U/L 02/09/2017 Comp Metabolic Arv828 T(SGOT) 33 U/L 02/09/2017 Comp Metabolic Dml537 AL T(SGPT) 21 U/L 02/09/2017 Comp Metabolic Cjl017 BI LI T 0.6 mg/dL 02/09/2017 Comp Metabolic Yhl485 AL BUMIN 4.3 g/dL 02/09/2017 Comp Metabolic Avx036 TP RO 6.9 g/dL 02/09/2017 Comp Metabolic Bbp324 GL OB 2.6 g/dL 02/09/2017 Comp Metabolic Abn126 A/ G Ratio 1.7 Ratio 02/09/2017 Comp Metabolic Oqi453 Os mo 272 mOsmo 02/09/2017 Lipid Ord30 [...] 31.8 pg 02/09/2017 Cbc With Differential Ord2 [place]% 11.3 % 02/09/2017 Cbc With Differential Ord2 [...] 0.77 K/ul 02/09/2017 Cbc With Differential Ord2 [place] ABS# 0.6 K/ul 02/09/2017 Cbc With Differential [...] 31.5 pg 03/29/2016 Cbc With Differential Ord2 [place]% 9.5 % 03/29/2016 Cbc With Differential Ord2 [...] 0.60 K/ul 03/29/2016 Cbc With Differential Ord2 [place] ABS# 0.4 K/ul 03/29/2016 Cbc With Differential Ord2 Eos ABS# 0.1 K/ul 03/29/2016 Cbc With Differential Ord2 Baso ABS# 0.0 K/ul 03/29/2016 Comp Metabolic Ael929 NA 135 mEq/L 03/29/2016 Comp Metabolic Ypi170 K 3.7 mEq/L 03/29/2016 Comp Metabolic Fdv561 CL 96 mEq/L 03/29/2016 Comp Metabolic Wpq133 CO2 30.0 mEq/L 03/29/2016 Comp Metabolic Jdi028 AN ION GAP 13 03/29/2016 Comp Metabolic Gzp385 GL UCOSE 102 mg/dL 03/29/2016 Comp Metabolic Kqn614 Cr eat 0.6 mg/dL 03/29/2016 Comp Metabolic Shb027 eG FR 94 ml/min/1.73m2 03/29 Comp Metabolic Pyj632 BUN 15 mg/dL 03/29/2016 Comp Metabolic Hkl178 B/ C Ratio 23.4 Ratio 03/29/2016 Comp Metabolic Eip218 CA LCIUM 9.1 mg/dL 03/29/2016 Comp Metabolic Zjd217 AL K PHOS 70 U/L 03/29/2016 Comp Metabolic Zsa771 T(SGOT) 35 U/L 03/29/2016 Comp Metabolic Qdi875 AL T(SGPT) 27 U/L 03/29/2016 Comp Metabolic Yue803 BI LI T 0.5 mg/dL 03/29/2016 Comp Metabolic Sty269 AL BUMIN 4.2 g/dL 03/29/2016 Comp Metabolic Mgn894 TP RO 6.6 g/dL 03/29/2016 Comp Metabolic Ulu154 GL OB 2.4 g/dL 03/29/2016 Comp Metabolic Kfb737 A/ G Ratio 1.7 Ratio 03/29/2016 Comp Metabolic Mew763 Os mo 271 mOsmo 03/29/2016 Tsh Ord6 hTSH II 1.17 uIU/mL 03/29/2016 B12 Ipp020 B12 838.00 pg/ml 09/02/2015 Tsh Ord6 hTSH [...] Ord2 RDW 15.1 % 09/02/2015 Comp Metabolic Gzb977 NA 135 mEq/L 09/02/2015 Comp Metabolic Dxc232 K 3.4 mEq/L 09/02/2015 Comp Metabolic Ymg203 CL 95 mEq/L 09/02/2015 Comp Metabolic Yth731 CO2 27.0 mEq/L 09/02/2015 Comp Metabolic Umd976 AN ION GAP 16 09/02/2015 Comp Metabolic Bsd593 GL UCOSE 94 mg/dL 09/02/2015 Comp Metabolic Cox750 Cr eat 0.7 mg/dL 09/02/2015 Comp Metabolic Sdy105 eG FR 87 ml/min/1.73m2 09/02 Comp Metabolic Glj022 BUN 18 mg/dL 09/02/2015 Comp Metabolic Ctq278 B/ C Ratio 26.1 Ratio 09/02/2015 Comp Metabolic Hfs173 CA LCIUM 9.0 mg/dL 09/02/2015 Comp Metabolic Yer961 AL K PHOS 67 U/L 09/02/2015 Comp Metabolic Mdq950 T(SGOT) 30 U/L 09/02/2015 Comp Metabolic Imy229 AL T(SGPT) 21 U/L 09/02/2015 Comp Metabolic Gfs383 BI LI T 0.6 mg/dL 09/02/2015 Comp Metabolic Zjh871 AL BUMIN 4.3 g/dL 09/02/2015 Comp Metabolic Aqv738 TP RO 6.8 g/dL 09/02/2015 Comp Metabolic Roo259 GL OB 2.5 g/dL 09/02/2015 Comp Metabolic Ysj792 A/ G Ratio 1.7 Ratio 09/02/2015 Comp Metabolic Vvm682 Os mo 272 mOsmo 09/02/2015 Lipid Ord30 [...] Procedure Codes Date TRIM SKIN LESION CPT-4: 82463 01/09/2019 TRIM SKIN LESIONS 2 TO 4 CPT-4: 96837 01/09/2019 ADMIN INFLUENZA VIRU S VAC CPT-4: G0008 06/21/2018 FLU VACC PRSV FREE I NC ANTIG CPT-4: 75857 06/21/2018 ADMIN INFLUENZA VIRU S VAC CPT-4: G0008 06/21/2017 FLU VACC PRSV FREE I NC ANTIG CPT-4: 49294 06/21/2017 ADMIN INFLUENZA VIRU S VAC CPT-4: G0008 06/24/2016 FLU VACC 4 CRISTINE 3 YRS PLUS IM Formatting Model/CDA Sections, Assigned to/Carmen Solis SNOMED CT: [id number] CPT-4: 52273Xenxopf 06/24/2016 ADMIN INFLUENZA VIRU S VAC CPT-4: G0008 06/19/2015 FLU VACC 4 CRISTINE 3 YRS PLUS IM Formatting Model/CDA Sections, Assigned to/Carmen Solis SNOMED CT: 34244646 CPT-4: 12495Dtpnsor 06/19/2015 Vital Signs Date Vital 01/09/2019 Blood Pressure 1: 132/62 Code: 8480-6 BMI: 15.8 Code: 62734-0 Heart Rate 1: 69 bpm Height: 5'2" SpO2: 98% Weight: 88 lbs 12/31/2018 Blood Pressure 1: 140/52 Code: 8480-6 BMI: 16.2 Code: 18867-9 Heart Rate 1: 70 bpm Height: 5'2" SpO2: 95% Weight: 90 lbs 09/05/2018 Blood Pressure 1: 138/74 Code: 8480-6 BMI: 16.1 Code: 98765-2 Heart Rate 1: 69 bpm Height: 5'2" SpO2: 98% Weight: 89 lbs 8 oz 08/15/2018 Blood Pressure 1: 142/72 Code: 8480-6 BMI: 16.3 Code: 50914-5 Heart Rate 1: 66 bpm Height: 5'2" SpO2: 99% Weight: 90 lbs 8 oz 05/29/2018 Blood Pressure 1: 140/70 Code: 8480-6 BMI: 16.2 Code: 16789-7 Heart Rate 1: 67 bpm Height: 5'2" SpO2: 99% Weight: 90 lbs 05/14/2018 Blood Pressure 1: 146/68 Code: 8480-6 BMI: 16.0 Code: 08891-0 Heart Rate 1: 70 bpm Height: 5'2" SpO2: 98% Weight: 89 lbs 04/18/2018 Blood Pressure 1: 126/68 Code: 8480-6 BMI: 15.7 Code: 11182-5 Heart Rate 1: 81 bpm Height: 5'2" SpO2: 99% Weight: 87 lbs 01/22/2018 Blood Pressure 1: 136/76 Code: 8480-6 BMI: 15.8 Code: 39780-4 Heart Rate 1: 73 bpm Height: 5'2" SpO2: 99% Weight: 88 lbs 01/01/2018 Blood Pressure 1: 148/76 Code: 8480-6 BMI: 15.8 Code: 75575-4 Heart Rate 1: 74 bpm Height: 5'2" SpO2: 98% Weight: 88 lbs 12/12/2017 Blood Pressure 1: 140/72 Code: 8480-6 BMI: 15.8 Code: 02630-7 Heart Rate 1: 65 bpm Height: 5'2" SpO2: 96% Weight: 88 lbs 09/13/2017 Blood Pressure 1: 138/70 Code: 8480-6 BMI: 15.9 Code: 00992-0 Heart Rate 1: 74 bpm Height: 5'2" SpO2: 99% Weight: 88 lbs 8 oz 06/21/2017 Blood Pressure 1: 122/50 Code: 8480-6 BMI: 15.3 Code: 36257-9 Heart Rate 1: 69 bpm Height: 5'2" SpO2: 99% Weight: 85 lbs 05/25/2017 Blood Pressure 1: 138/72 Code: 8480-6 Heart Rate 1: 77 bpm Height: 5'2" SpO2: 98% Weight: 05/16/2017 Blood Pressure 1: 136/78 Code: 8480-6 Heart Rate 1: 86 bpm Height: 5'2" SpO2: 98% Weight: 02/15/2017 Blood Pressure 1: 144/78 Code: 8480-6 BMI: 15.4 Code: 35084-5 Heart Rate 1: 65 bpm Height: 5'2" SpO2: 98% Weight: 85 lbs 8 oz 11/22/2016 Blood Pressure 1: 140/58 Code: 8480-6 BMI: 14.8 Code: 48982-8 Heart Rate 1: 79 bpm Height: 5'2" SpO2: 99% Weight: 82 lbs 09/15/2016 BMI: 16.0 Code: 01533-9 Height: 5'2" Weight: 89 lbs 09/07/2016 Blood Pressure 1: 130/62 Code: 8480-6 BMI: 16.2 Code: 63921-8 Heart Rate 1: 71 bpm Height: 5'2" SpO2: 98% Weight: 90 lbs 07/06/2016 Blood Pressure 1: 144/76 Code: 8480-6 BMI: 15.8 Code: 43529-7 Heart Rate 1: 78 bpm Height: 5'2" SpO2: 99% Weight: 88 lbs 04/06/2016 Blood Pressure 1: 148/58 Code: 8480-6 BMI: 16.2 Code: 48765-3 Heart Rate 1: 64 bpm Height: 5'2" SpO2: 97% Weight: 90 lbs 01/06/2016 Blood Pressure 1: 146/72 Code: 8480-6 BMI: 16.6 Code: 04400-2 Heart Rate 1: 62 bpm Height: 5'2" SpO2: 99% Weight: 92 lbs 09/02/2015 Blood Pressure 1: 132/70 Code: 8480-6 BMI: 16.6 Code: 78649-6 Heart Rate 1: 77 bpm Height: 5'2" SpO2: 98% Weight: 92 lbs 06/15/2015 Blood Pressure 1: 144/60 Code: 8480-6 BMI: 16.7 Code: 23644-8 Heart Rate 1: 66 bpm Height: 5'2" SpO2: 97% Weight: 93 lbs 03/04/2015 Blood Pressure 1: 120/80 Code: 8480-6 BMI: 15.8 Code: 77421-0 Heart Rate 1: 74 bpm Height: 5'2" [...] me dication 01/09/2019 None Pertinent Findings fabián ziness 01/09/2019 -weakness sometimes when she needs [...] weeks ago 05/14/2018 None hypertension Quality robinson barriga hypertension 04/18/2018 None hypertension Onset and Resolution [...] shoulder 01/22/2018 None shoulder pain Quality ac pauma 01/22/2018 None shoulder pain Quality co nstant [...] nstant 01/01/2018 None shoulder pain Quality ac pauma 01/01/2018 None shoulder pain Quality wo rsening [...] Findings heartburn 05/16/2017 None hypertension Quality robinson barriga hypertension 02/15/2017 None hypertension Onset and Resolution [...] chr onic 01/06/2016 None hypertension Quality robinson linus hypertension 01/06/2016 None hypertension Onset and Resolution [...] Encounters Encounter Performer Loca tion Codes Date ([id number]) [id number] EST. P ATIENT, LEVEL IV Diagnosis: Essential [...] Corns and callosities[ICD10: L84] Anum Bradshaw MD, [facility] CPT-4: 63559 01/09/2019 [id number] EST. PATIENT, LEVEL IV Diagnosis: Dysuria[ICD10: R30.0] Kala Bradshaw MD, [facility] CPT-4: 73827 12/31/2018 ([id number]) [id number] EST. P ATIENT, LEVEL IV Diagnosis: Essential (primary) hypertension[ICD10: I10] Diagnosis: Rash and other nonspecific skin eruption[ICD10: R21] Anum Bradshaw MD, [facility] CPT-4: 99961 09/05/2018 ([id number]) 55541 EST. P ATIENT, LEVEL IV Diagnosis: Essential (primary) hypertension[ICD10: I10] Diagnosis: Tinea barbae and tinea capitis[ICD10: B35.0] Diagnosis: Unsteadiness on feet[ICD10: R26.81] Diagnosis: Weakness[ICD10: R53.1] Anum Bradshaw MD, [facility] CPT-4: 13982 08/15/2018 ([id number]) 23877 EST. P ATIENT, LEVEL III Diagnosis: Rash and other nonspecific skin eruption[ICD10: R21] Diagnosis: Other allergic rhinitis[ICD10: J30.89] Diagnosis: Gastro-esophageal reflux disease without esophagitis[ICD10: K21.9] Rosalinda Bradshaw MD, [facility] CPT-4: 66801 05/29/2018 ([id number]) 24473 EST. P ATIENT, LEVEL III Diagnosis: Rash and other nonspecific skin eruption[ICD10: R21] Rosalidna Bradshaw MD, [facility] CPT-4: 74262 05/14/2018 ([id number]) 38223 EST. P ATIENT, LEVEL IV Diagnosis: Essential (primary) hypertension[ICD10: I10] Diagnosis: Underweight[ICD10: R63.6] Diagnosis: Mixed hyperlipidemia[ICD10: E78.2] Anum Bradshaw MD, [facility] CPT- 4: 56085 04/18/2018 ([id number]) 41681 EST. P ATIENT, LEVEL III Diagnosis: Bicipital tendinitis, left shoulder[ICD10: M75.22] Anum Bradshaw MD, C CPT-4: 12147 01/22/2018 ([id number]) 88737 EST. P ATIENT, LEVEL III Diagnosis: Pain in right shoulder[ICD10: M25.511] Diagnosis: Bicipital tendinitis, right shoulder[ICD10: M75.21] Anum Bradshaw MD, [facility] CPT-4: 13752 01/01/2018 ([id number]) 13833 EST. P ATIENT, LEVEL IV Diagnosis: Essential (primary) hypertension[ICD10: I10] Diagnosis: Underweight[ICD10: R63.6] Diagnosis: Mixed hyperlipidemia[ICD10: E78.2] Diagnosis: Actinic keratosis[ICD10: L57.0] Anum Bradshaw MD, [facility] CPT-4: 29840 12/12/2017 ([id number]) 81097 EST. P ATIENT, LEVEL III Diagnosis: Essential (primary) hypertension[ICD10: I10] Diagnosis: Fracture of unspecified part of neck of left femur, subsequent encounter for closed fracture with routine healing[ICD10: S72.002D] Diagnosis: Underweight[ICD10: R63.6] Anum Bradshaw MD, [facility] CPT-4: 95263 09/13/2017 ([id number]) 41711 EST. P ATIENT, LEVEL IV Diagnosis: Mixed hyperlipidemia[ICD10: E78.2] Diagnosis: Essential (primary) hypertension[ICD10: I10] Diagnosis: Vitamin B12 deficiency anemia due to intrinsic factor deficiency[ICD10: D51.0] Diagnosis: Gastro-esophageal reflux disease with esophagitis[ICD10: K21.0] Diagnosis: Age-related osteoporosis without current pathological fracture[ICD10: M81.0] Diagnosis: Encounter for immunization[ICD10: Z23] Anum Bradshaw MD, [facility] CPT-4: 40195 06/21/2017 ([id number]) 52130 EST. P ATIENT, LEVEL III Diagnosis: Fracture of unspecified part of neck of left femur, subsequent encounter for closed fracture with routine healing[ICD10: S72.002D] Diagnosis: Underweight[ICD10: R63.6] Diagnosis: Gastro-esophageal reflux disease with esophagitis[ICD10: K21.0] Anum Bradshaw MD, [facility] CPT-4: 61585 05/25/2017 ([id number]) 16433 EST. P ATIENT, LEVEL IV Diagnosis: Essential (primary) hypertension[ICD10: I10] Diagnosis: Fracture of unspecified part of neck of left femur, subsequent encounter for closed fracture with routine healing[ICD10: S72.002D] Diagnosis: Generalized anxiety disorder[ICD10: F41.1] Anum Bradshaw MD, C CPT-4: 20728 05/16/2017 ([id number]) 54055 EST. P ATIENT, LEVEL IV Diagnosis: Essential (primary) hypertension[ICD10: I10] Diagnosis: Mixed hyperlipidemia[ICD10: E78.2] Diagnosis: Generalized anxiety disorder[ICD10: F41.1] Anum Bradshaw MD, [facility] CPT-4: 97335 02/15/2017 ([id number]) 97678 EST. P ATIENT, LEVEL IV Diagnosis: Mixed hyperlipidemia[ICD10: E78.2] Diagnosis: Generalized anxiety disorder[ICD10: F41.1] Diagnosis: Essential (primary) hypertension[ICD10: I10] Diagnosis: Gastro-esophageal reflux disease with esophagitis[ICD10: K21.0] Anum Bradshaw MD, [facility] CPT-4: 81786 11/22/2016 89759 EST. PATIENT, LEVEL III Diagnosis: Inflamed seborrheic keratosis[ICD10: L82.0] Kala Bradshaw MD, [facility] CPT-4: 11365 09/15/2016 ([id number]) 21835 EST. P ATIENT, LEVEL IV Diagnosis: Essential (primary) hypertension[ICD10: I10] Diagnosis: Mixed hyperlipidemia[ICD10: E78.2] Diagnosis: Generalized anxiety disorder[ICD10: F41.1] Anum Bradshaw MD, C CPT-4: 00501 09/07/2016 ([id number]) 49259 EST. P ATIENT, LEVEL IV Diagnosis: Essential (primary) hypertension[ICD10: I10] Diagnosis: Frequency of micturition[ICD10: R35.0] Diagnosis: Age-related osteoporosis without current pathological fracture[ICD10: M81.0] Anum Bradshaw MD, [facility] CPT-4: 25665 07/06/2016 ([id number]) 67697 EST. P ATIENT, LEVEL IV Diagnosis: Essential (primary) hypertension[ICD10: I10] Diagnosis: Mixed hyperlipidemia[ICD10: E78.2] Diagnosis: Gastro-esophageal reflux disease with esophagitis[ICD10: K21.0] Anum Bradshaw MD, [facility] CPT-4: 51420 04/06/2016 52796 EST. PATIENT, LEVEL IV Diagnosis: Essential (primary) hypertension[ICD10: I10] Diagnosis: Gastro-esophageal reflux disease with esophagitis[ICD10: K21.0] Kala Bradshaw MD, [facility] CPT-4: 48431 01/06/2016 ([id number]) 65493 EST. P ATIENT, LEVEL IV Diagnosis: Essential (primary) hypertension[ICD10: I10] Diagnosis: Gastro-esophageal reflux disease with esophagitis[ICD10: K21.0] Diagnosis: Other dietary vitamin B12 deficiency anemia[ICD10: D51.3] Diagnosis: Vitamin B12 deficiency anemia due to intrinsic factor deficiency[ICD10: D51.0] Diagnosis: Occlusion and stenosis of unspecified carotid artery[ICD10: I65.29] Anum Bradshaw MD, [facility] CPT-4: 42490 09/02/2015 ([id number]) 09272 EST. [facility] LEVEL III Diagnosis: Carpal tunnel syndrome[ICD9: 354.0] Diagnosis: Inflamed seborrheic keratosis[ICD9: 702.11] [facility] CPT-4: 31288 06/15/2015 ([id number]) OFFICE VISI T, [facility] - LEVEL 4 Diagnosis: ESSENTIAL HYPERTENSION[ICD9: 401.9] Diagnosis: ESOPHAGEAL REFLUX[ICD9: 530.81] Diagnosis: HYPERLIPIDEMIA[ICD9: 272.4] Anum Bradshaw MD, [facility] CPT-4: 74120 03/04/2015 Plan of Care Planned Activity Notes C odes Status Date Visit Plan: Hypertension - well con trolled - continue with current medications, continue with no added salt diet. Pt has been encouraged to exercise daily. The pt has been advised to call the office if there are any acute concerns about change in blood pressure readings at home. Hewitt on toe - debrided with scalpel today. [...] intake. 01/09/2019 App[facility]ment[phone] [facility] ([facility] min) Moderate 01/09/2019 Patient Education: Patient Medication Summary Completed 01/09/2019 Patient Education: Hypertension Completed 01/09/2019 Patient Education: Cholesterol Management Completed 01/09/2019 Visit Plan: UTI - pt with positive urinalysis - culture sent if appropriate. Antibiotic electronically prescribed to pt's pharmacy of choice. Pt to call if symptoms do not improve. 12/31/2018 [facility]ment[phone] ([facility] Complex 12/31/2018 Patient Education: [...] for betamethasone. 09/05/2018 Appointment: [phone] [facility] ([facility] min) Moderate 09/05/2018 Patient Education: Patient Medication Summary Completed 09/05/2018 Patient Education: Hypertension Completed 09/05/2018 Visit Plan: Hypertension - well argenis gonzales - continue with current medications, continue with [...] improving. 08/15/2018 Appointment: Anum Bradshaw WPtel: [phone] [facility] (15 min) Moderate 08/15/2018 Patient Education: Patient Medication Summary Completed 08/15/2018 Patient Education: Hypertension Completed 08/15/2018 Appointment: Anum Bradshaw WPtel: [phone] [facility] (15 min) Moderate 2018 Appointment: Injection 06/21/2018 [...] shampoo 05/29/2018 Appointment: Rosalinda Bermudez WPtel: [phone] [phone] [place] (30 min) Complex 05/29/2018 Patient Education: [...] if needed 05/14/2018 Appointment: Rosalinda Bermudez WPtel: [phone] [phone] [place] (30 min) Complex 05/14/2018 Patient Education: [...] liver response to medications. 04/18/2018 Appointment: Anum Brasdhaw WPtel: [facility] [place] (15 min) Moderate 04/18/2018 Patient Education: Patient Medication Summary Completed 04/18/2018 Appointment: Injection 03/08/2018 Visit Plan: Left shoulder pain - bi cep tendonitis - continue with physical therapy at [facility]. Use voltaren gel on left shoulder now - continue with therapy on right shoulder. 01/22/2018 Appointment: [facility] Bradshaw [facility] [phone] [facility] [place] (15 min) Moderate 01/22/2018 Patient Education: [...] tendonitis - referral to physical therapy at [facility] 01/01/2018 Appointment: Anum Bradshaw WPtel: [facility] ([facility] min) Moderate 01/01/2018 Patient Education: Patient [...] Appointment: Anum Bradshaw WPtel: [facility] (15 min) Moderate 12/12/2017 Patient Education: Patient [...] Appointment: Anum Bradshaw WPtel: [facility] (15 min) Moderate 09/13/2017 Patient Education: Patient [...] Appointment: Anum Bradshaw WPtel: [facility] (15 min) Moderate 06/21/2017 Patient Education: Patient Medication Summary Completed 06/21/2017 Visit Plan: Esophageal Reflux - the patient has been taking medication as directed and her symptoms are improved. Hip fracture - continue with supportive care, nonweight bearing. Underweight - increase protein intake, higher calorie diet, use wheelchair to decrease excessive caloric expenditure. 05/25/2017 Appointment: Anum Bradshaw WPtel: [facility] (15 min) Moderate 05/25/2017 Patient Education: Patient [...] Appointment: Anum Bradshaw WPtel: [facility] ([facility] min) Moderate 05/16/2017 Patient Education: Patient [...] Appointment: Anum Bradshaw WPtel: [facility] (15 min) Moderate 02/15/2017 Patient Education: Patient Medication Summary Completed 02/15/2017 Patient Education: Hypertension Completed 02/15/2017 Care Plan: Referral Order SNOMED-CT : [id number] Pending 02/15/2017 Appointment: Anum Bradshaw WPtel: [facility] (15 min) Moderate 01/11/2017 Visit Plan: Hypertension [...] current treatment 11/22/2016 Appointment: Anum Bradshaw WPtel: [phone] [facility] (15 min) Moderate 11/22/2016 Patient Education: Patient Medication Summary Completed 11/22/2016 Patient Education: Hypertension Completed 11/22/2016 Appointment: Rosalinda Bermudez WPtel: [phone] [phone] [place] (30 min) Complex 09/16/2016 Visit Plan: [...] monitor symptoms. 09/07/2016 Appointment: Anum Bradshaw WPtel: [phone] [facility] [place] (15 min) Moderate 09/07/2016 Patient Education: Patient [...] negative 07/06/2016 Appointment: Anum Bradshaw WPtel: [phone] [facility] (15 min) Moderate 07/06/2016 Patient Education: Patient [...] improving. 04/06/2016 Appointment: [phone] [facility] [place] (15 min) Moderate 04/06/2016 Patient Education: Patient [...] 09/02/2015 Care Plan: Referral Order SNOMED-CT : [id number] Ordered 09/02/2015 Appointment: Injection 06/19/2015 Patient Education: [...] not improving. 03/04/2015 Appointment: Anum Bradshaw WPtel: [address] [place], [place] [address] [place] (S) New Patient 03/04/2015 Patient Education: [...] tendonitis - referral to physical therapy at [facility] . Hypertension - wel l controlled - continue with current medications, continue with no added salt diet. Pt has been encouraged to exercise daily. The pt has been advised to call the office if there are any acute concerns about change in blood pressure readings at home. Generalized weakness, Gait instability - I have recommended a referral to [facility] for physical therapy balance training. Tinea [...] - continue with physical therapy at [facility]. Use voltaren gel on left shoulder now [...] change in blood pressure readings at home. Hewitt on toe - debrided with scalpel today. [...]
--- OUTSIDE RECORDS SUMMARY | 2019-12-29 11:16 | XMS REPORT | CCD ---
Author Author Ashley Bradshaw Organization [facility] Address [address] [place] [address] Phone Care Team Providers Care Exploration Driller Name Role Phone PP Unavailable CCM Unavailable Summary Purpose Interface Exchange Insurance Providers Payer name Policy type / Coverage type Covered alliance party ID Effective Begin Date Effective End Date WPS Medicare Part B Medicare Part B [id number] Unknown Unknown CIGNA Medicare Part B [id number] Unknown Unknown Family history Father Diagnosis Age At Onset Coronary Artery Disease Unknown Mother Diagnosis Age At Onset Anemia Unknown Skin cancer Unknown Hypertension Unknown Cancer Unknown Breast cancer Unknown Social History Social History Element Codes Description Effective Dates Marital status Unknown M arrkimberly Shahram 03/04/2015 Number of children Unknown 3 03/04/[address]: 485345707 Never smoker 03/04/[address]: 170195211 Never drinks alcohol 03/04/2015 Allergies, Adverse Reactions, Alerts Substance Reaction Codes Entered Date Inactivated Date Status NEOSPORIN RxNorm: 061254 01/06/2016 No Inactive Date Active Past Medical [...] Date Stop Date Sta tus Fill Instructions simvastatin 20 mg ta blet RxNorm: 881617 TAKE 1 TABLET BY MOUT H EVERY DAY 01/14/2019 01/08/2020 Ac tive Keflex 500 mg capsule RxNorm: 546758 1 Capsule(s) PO TID 12/31/2018 01/09/2019 Inactive Pyridium 200 mg tablet RxNorm: 3377041 1 Tablet(s) PO TID 12/31/2018 01/01/2019 Inactive esomeprazole magnesi um 40 mg capsule,delayed release RxNorm: 033969 Capsule(s) TAKE 1 CAPSULE BY MOUTH DAILY 11/27/2018 02/19/2020 Active wants to pay henry Zantac 150 mg tablet RxNorm: 620974 1 Tablet(s) PO BID 11/02/2018 11/26/2018 Inactive Zantac 150 mg tablet RxNorm: 949704 1 Tablet(s) PO BID 11/02/2018 11/01/2018 Inactive sucralfate 100 mg/mL oral suspension RxNorm: 566436 10 Milliliter(s) per 1 gram PO QID 10/08/2018 10/02/2019 Active diltiazem 30 mg tablet RxNorm: 520256 1 Tablet(s) PO QID 10/08/2018 10/02/2019 Active betamethasone nasir te 0.1 % topical cream RxNorm: 058257 1 Application TOP BID 09/05/2018 11/03/2018 In active ketoconazole 2 % top ical cream RxNorm: 095087 1 Application TOP BID to posterior scalp x 2 weeks or until the skin is healed 08/15/2018 08/28/2018 Inactive triamterene 37.5 mg- hydrochlorothiazide 25 mg tablet RxNorm: 608437 Tablet(s) 1 Tablet(s) PO daily 07/12/2018 01/07/2019 Inactive PLEASE SEND REFILL REQUESTS ELECTRONICALLY simvastatin 20 mg ta blet RxNorm: 104354 TAKE 1 TABLET BY MOUT H EVERY DAY 07/12/2018 01/07/2019 In active ketoconazole 2 % sha mpoo RxNorm: 071497 1 Application TOP BIW 05/14/2018 No Stop Date Active simvastatin 20 mg ta blet RxNorm: 512739 TAKE 1 TABLET BY MOUT H EVERY DAY 03/01/2018 07/11/2018 In active triamterene 37.5 mg- hydrochlorothiazide 25 mg tablet RxNorm: 583197 Tablet(s) 1 Tablet(s) PO daily 02/06/2018 07/11/2018 Inactive PLEASE SEND REFILL REQUESTS ELECTRONICALLY Voltaren 1 % topical gel RxNorm: 624442 2 Gram(s) TOP TID to shoulders 01/01/2018 04/30/2018 In active sucralfate 100 mg/mL oral suspension RxNorm: 720566 10 Milliliter(s) per 1 gram PO QID 12/12/2017 06/09/2018 Inactive refill 3 month supply- 1gm/10ml simvastatin 20 mg ta blet RxNorm: 176137 TAKE 1 TABLET BY MOUT H EVERY DAY 12/04/2017 02/28/2018 In active escitalopram 5 mg ta blet RxNorm: 661825 1 Tablet(s) PO QPM 10/26/2017 01/18/2019 Active esomeprazole magnesi um 40 mg capsule,delayed release RxNorm: 913714 TAKE 1 CAPSULE BY MOUTH DAILY 10/26/2017 11/01/2018 Inactive mupirocin 2 % topica l ointment RxNorm: 898221 APPLY TO AFFECTED ARE A(S) ONCE DAILY 10/16/2017 11/28/2017 In active diltiazem 30 mg tablet RxNorm: 763650 1 Tablet(s) PO QID 10/09/2017 10/03/2018 Inactive triamterene 37.5 mg- hydrochlorothiazide 25 mg tablet RxNorm: 525847 1 Tablet(s) PO daily 07/28/2017 01/23/2018 Inactive fluticasone 50 mcg/a ctuation nasal spray,suspension RxNorm: 8119899 2 [place] NASAL daily 07/20/2017 01/08/2019 Inactive diltiazem 30 mg tablet RxNorm: 085909 1 Tablet(s) PO QID TAKE 1 TABLET BY MOUT H FOUR TIMES DAILY 07/13/2017 10/08/2017 Inactive simvastatin 20 mg ta blet RxNorm: 762834 TAKE 1 TABLET BY MOUT H EVERY DAY 06/08/2017 12/03/2017 In active Nexium 40 mg capsule ,delayed release RxNorm: 400401 1 Capsule(s) PO daily 05/25/2017 11/27/2017 In active esomeprazole magnesi um 40 mg capsule,delayed release RxNorm: 175173 Capsule(s) TAKE 1 CAPSULE BY MOUTH DAILY 05/17/2017 02/10/2018 Inactive diltiazem 30 mg tablet RxNorm: 523033 Tablet(s) TAKE 1 TABLET BY MOUTH FOUR TI MES DAILY 05/16/2017 07/12/2017 Inactive diltiazem 30 mg tablet RxNorm: 345789 TAKE 1 TABLET BY MOUTH THREE TIMES DAILY 02/09/2017 05/15/2017 In active Zofran ODT 4 mg disi ntegrating tablet RxNorm: 466031 1 Tablet(s) PO Q6 as needed 11/16/2016 11/22/2016 In active Protonix 40 mg table t,delayed release RxNorm: 339871 1 Tablet(s) PO daily 11/16/2016 12/15/2016 In active Protonix 40 mg table t,delayed release RxNorm: 743159 1 Tablet(s) PO daily 11/16/2016 11/15/2016 In active Zofran ODT 4 mg disi ntegrating tablet RxNorm: 618326 1 Tablet(s) PO Q6 as needed 11/16/2016 11/15/2016 In active escitalopram 5 mg ta blet RxNorm: 527836 1 Tablet(s) PO QPM 10/28/2016 10/22/2017 Inactive escitalopram 5 mg ta blet RxNorm: 586905 1 Tablet(s) PO QPM 10/05/2016 10/27/2016 Inactive mupirocin 2 % topica l ointment RxNorm: 985387 1 Application TOP yao ly APPLY TO AFFECTED AREA(S) TOPICALLY DAILY 09/07/2016 11/05/2016 Inactive Efudex 5 % topical c ream RxNorm: 627901 1 TOP BID 09/07/2016 09/16/2016 Inactive escitalopram 5 mg ta blet RxNorm: 358828 1 Tablet(s) PO QPM 09/07/2016 10/04/2016 Inactive sucralfate 100 mg/mL oral suspension RxNorm: 744584 10 Milliliter(s) per 1 gram PO QID 08/03/2016 07/28/2017 Inactive refill 3 month supply- 1gm/10ml clorazepate dipotass ium 3.75 mg tablet RxNorm: 355681 1 Tablet(s) PO QHS as needed insomnia 07/06/2016 08/14/2018 Inactive triamterene 37.5 mg- hydrochlorothiazide 25 mg tablet RxNorm: 531774 1 Tablet(s) PO daily 06/29/2016 06/23/2017 Inactive Nexium 40 mg capsule ,delayed release RxNorm: 296056 1 Capsule(s) PO daily 06/29/2016 07/05/2016 In active Bactroban 2 % topica l ointment RxNorm: 271566 APPLY TO AFFECTED ARE A(S) TOPICALLY DAILY 06/22/2016 09/06/2016 Inactive esomeprazole magnesi um 40 mg capsule,delayed release RxNorm: 086016 TAKE 1 CAPSULE BY MOUTH DAILY 06/13/2016 03/09/2017 Inactive simvastatin 20 mg ta blet RxNorm: 405737 1 Tablet(s) PO daily 05/16/2016 06/07/2017 Inactive simvastatin 20 mg ta blet RxNorm: 143567 1 Tablet(s) PO daily 05/12/2016 05/15/2016 Inactive famotidine 40 mg tablet RxNorm: 915638 TAKE 1 TABLET BY MOUTH DAILY 05/05/2016 01/29/2017 Inactive Bactroban 2 % topica l ointment RxNorm: 209189 APPLY TO AFFECTED ARE A(S) TOPICALLY DAILY 04/25/2016 05/01/2016 Inactive fluticasone 50 mcg/a ctuation nasal spray,suspension RxNorm: 2527070 2 [place] NASAL daily 03/23/2016 09/18/2016 Inactive fluticasone 50 mcg/a ctuation nasal spray,suspension RxNorm: 500833 2 [place] NASAL daily 03/07/2016 03/22/2016 Inactive Bactroban 2 % topica l ointment RxNorm: 850232 APPLY TO AFFECTED ARE A(S) TOPICALLY DAILY 02/29/2016 03/06/2016 Inactive diltiazem 30 mg tablet RxNorm: 679925 1 Tablet(s) PO TID 02/18/2016 02/08/2017 Inactive Bactroban 2 % topica l ointment RxNorm: 130564 1 Application TOP 01/08/2016 02/28/2016 Inactive clorazepate dipotass ium 3.75 mg tablet RxNorm: 518204 1 Tablet(s) PO daily 12/14/2015 06/10/2016 In active fluticasone 50 mcg/a ctuation nasal spray,suspension RxNorm: 490625 2 [place] NASAL daily 12/14/2015 02/11/2016 Inactive diltiazem 30 mg tablet RxNorm: 252178 1 Tablet(s) PO TID 09/03/2015 02/17/2016 Inactive simvastatin 20 mg ta blet RxNorm: 906337 1 Tablet(s) PO daily 08/24/2015 05/11/2016 Inactive triamterene 37.5 mg- hydrochlorothiazide 25 mg tablet RxNorm: 101851 1 Tablet(s) PO daily 07/09/2015 06/28/2016 Inactive clorazepate dipotass ium 15 mg tablet RxNorm: 530083 1 Tablet(s) PO daily 07/06/2015 07/06/2015 In active clorazepate dipotass ium 3.75 mg tablet RxNorm: 457030 1 Tablet(s) PO daily 07/06/2015 12/13/2015 In active esomeprazole magnesi um 40 mg capsule,delayed release RxNorm: 116479 1 Capsule(s) PO daily 06/26/2015 06/12/2016 Inactive famotidine 40 mg tablet RxNorm: 747874 1 Tablet(s) PO daily 06/26/2015 05/04/2016 Inactive diltiazem 30 mg tablet RxNorm: 680040 1 Tablet(s) PO TID 06/09/2015 09/02/2015 Inactive sucralfate 100 mg/mL oral suspension RxNorm: 371750 10 Milliliter(s) per 1 gram PO QID 04/28/2015 04/21/2016 Inactive refill 3 month supply- 1gm/10ml member I d [id number] sucralfate 100 mg/mL oral suspension RxNorm: 025880 10 Milliliter(s) per 1 gram PO QID 04/27/2015 04/27/2015 Inactive refill 3 month supply diltiazem 30 mg tablet RxNorm: 670961 1 Tablet(s) PO TID 02/18/2015 02/17/2015 Inactive diltiazem 30 mg tablet RxNorm: 333556 1 Tablet(s) PO TID 02/18/2015 05/18/2015 Inactive Vitamin D3 2,000 uni t tablet RxNorm: 842846 Tablet(s) PO daily No Start Date Active Nidia ODT oral RxNorm: 017006 oral No Start Date Active PreserVision Lutein oral RxNorm: [address] art Date Active Vitamin B-12 oral RxNorm: 26763 oral No Start Date Active Calcium 500 + D oral RxNorm: 247657 oral No Start Date Active ketoconazole 2 % [facility] [employer] [facility] RxNorm: 504241 1 TOP daily No Start Date Active ketoconazole 2 % [facility] [employer] [facility] RxNorm: 865094 TOP No St art Date Active melatonin 5 mg tablet RxNorm: 357368 Tablet(s) PO QHS as needed No Start Date Active vitamin B6-vitamin E -magnesium oral RxNorm: 230132 oral No S tart Date Active famotidine 40 mg tablet RxNorm: 022004 1 Tablet(s) PO daily No Start Date 06/25/2015 Inactive clorazepate dipotass ium 3.75 mg tablet RxNorm: 246446 1 Tablet(s) PO daily No Start Date 07/05/2015 Inactive Bactroban 2 % topica l ointment RxNorm: 153076 1 Application TOP No Start Date 01/07/2016 Inactive Carafate 1 gram tablet RxNorm: 153931 1 Tablet(s) PO QID No Start Date 04/26/2015 Inactive Zyrtec 10 mg tablet RxNorm: 3831955 1 Tablet(s) PO daily No Start Date 08/14/2018 Inactive esomeprazole magnesi um 40 mg capsule,delayed release RxNorm: 420064 Capsule(s) PO daily No Start Date 06/25/2015 Inactive fluticasone 50 mcg/a ctuation nasal spray,suspension RxNorm: 989593 2 [place] NASAL daily No Start Date 12/13/2015 Inactive Nexium 40 mg capsule ,delayed release RxNorm: 299147 1 Capsule(s) PO daily No Start Date 06/28/2016 Inactive triamterene 37.5 mg- hydrochlorothiazide 25 mg tablet RxNorm: 369525 1 Tablet(s) PO daily No Start Date 07/08/2015 Inactive simvastatin 20 mg ta blet RxNorm: 828378 1 Tablet(s) PO daily No Start Date [...] Item Item Code Result Date Comp Metabolic Kxb491 NA 134 mEq/L 01/09/2019 Comp Metabolic Uae123 K 3.4 mEq/L 01/09/2019 Comp Metabolic Czg841 CL 94 mEq/L 01/09/2019 Comp Metabolic Uyf714 CO2 30.0 mEq/L 01/09/2019 Comp Metabolic Aff689 AN ION GAP 13 01/09/2019 Comp Metabolic Mig329 GL UCOSE 97 mg/dL 01/09/2019 Comp Metabolic Gfn387 Cr eat 0.7 mg/dL 01/09/2019 Comp Metabolic Rva187 eG FR 90 ml/min/1.73m2 01/09 Comp Metabolic Gvd182 BUN 18 mg/dL 01/09/2019 Comp Metabolic Zbd440 B/ C Ratio 27.3 Ratio 01/09/2019 Comp Metabolic Ewx191 CA LCIUM 9.0 mg/dL 01/09/2019 Comp Metabolic Gow730 AL K PHOS 57 U/L 01/09/2019 Comp Metabolic Zgg326 T(SGOT) 33 U/L 01/09/2019 Comp Metabolic Bii075 AL T(SGPT) 25 U/L 01/09/2019 Comp Metabolic Ysd835 BI LI T 0.6 mg/dL 01/09/2019 Comp Metabolic Dyn112 AL BUMIN 4.5 g/dL 01/09/2019 Comp Metabolic Nog707 TP RO 6.9 g/dL 01/09/2019 Comp Metabolic Ivb588 GL OB 2.4 g/dL 01/09/2019 Comp Metabolic Igk496 A/ G Ratio 1.9 Ratio 01/09/2019 Comp Metabolic Sme948 Os mo 270 mOsmo 01/09/2019 Lipid Ord30 CHOL 178 mg/dL 01/09/2019 Lipid Ord30 HDL 76.0 mg/dl 01/09/2019 Lipid Ord30 TRIG 73 mg/dL 01/09/2019 Lipid Ord30 LDL 87 mg/dL 01/09/2019 Lipid Ord30 C/HDL 2.3 Ratio 01/09/2019 B12 Ejp045 B12 >1500.00 pg/ml 01/09/2019 Tsh Ord6 TSH [...] 93.2 fl 01/09/2019 Cbc With Differential Ord2 Pope% 7.9 % 01/09/2019 Cbc With Differential Ord2 [...] 0.63 K/ul 01/09/2019 Cbc With Differential Ord2 Pope ABS# 0.5 K/ul 01/09/2019 Cbc With Differential Ord2 Eos ABS# 0.1 K/ul 01/09/2019 Cbc With Differential Ord2 Baso ABS# 0.0 K/ul 01/09/2019 Vitamin D 25 Oh [id number] VITAMIN D, 25 HYDROXY 64.38 ng/mL 01/09/2019 [...] 31.4 pg 04/18/2018 Cbc With Differential Ord2 Pope% 9.2 % 04/18/2018 Cbc With Differential Ord2 [...] 0.76 K/ul 04/18/2018 Cbc With Differential Ord2 [place] ABS# 0.5 K/ul 04/18/2018 Cbc With Differential [...] Ord15 CALCIUM 9.1 mg/dL 04/18/2018 Comp Metabolic Rqe408 NA 130 mEq/L 12/07/2017 Comp Metabolic Jgh763 K 3.6 mEq/L 12/07/2017 Comp Metabolic Jxg417 CL 91 mEq/L 12/07/2017 Comp Metabolic Utd976 CO2 29.0 mEq/L 12/07/2017 Comp Metabolic Dfp659 AN ION GAP 14 12/07/2017 Comp Metabolic Gtj064 GL UCOSE 105 mg/dL 12/07/2017 Comp Metabolic Nut773 Cr eat 0.6 mg/dL 12/07/2017 Comp Metabolic Hdp417 eG FR 94 ml/min/1.73m2 12/07 Comp Metabolic Bvm107 BUN 15 mg/dL 12/07/2017 Comp Metabolic Ukj458 B/ C Ratio 23.4 Ratio 12/07/2017 Comp Metabolic Tbp419 CA LCIUM 9.3 mg/dL 12/07/2017 Comp Metabolic Yku077 AL K PHOS 62 U/L 12/07/2017 Comp Metabolic Sxv086 T(SGOT) 31 U/L 12/07/2017 Comp Metabolic Dgc580 AL T(SGPT) 22 U/L 12/07/2017 Comp Metabolic Uqq843 BI LI T 0.4 mg/dL 12/07/2017 Comp Metabolic Lap956 AL BUMIN 4.3 g/dL 12/07/2017 Comp Metabolic Eow041 TP RO 6.5 g/dL 12/07/2017 Comp Metabolic Joq024 GL OB 2.2 g/dL 12/07/2017 Comp Metabolic Cpc487 A/ G Ratio 2.0 Ratio 12/07/2017 Comp Metabolic Jkq681 Os mo 262 mOsmo 12/07/2017 Cbc With [...] 31.0 pg 12/07/2017 Cbc With Differential Ord2 Pope% 10.4 % 12/07/2017 Cbc With Differential Ord2 [...] 0.57 K/ul 12/07/2017 Cbc With Differential Ord2 [place] ABS# 0.5 K/ul 12/07/2017 Cbc With Differential [...] 32.3 pg 06/21/2017 Cbc With Differential Ord2 Pope% 10.1 % 06/21/2017 Cbc With Differential Ord2 [...] 0.65 K/ul 06/21/2017 Cbc With Differential Ord2 [place] ABS# 0.5 K/ul 06/21/2017 Cbc With Differential Ord2 Eos ABS# 0.2 K/ul 06/21/2017 Cbc With Differential Ord2 Baso ABS# 0.0 K/ul 06/21/2017 Comp Metabolic Tgg342 NA 133 mEq/L 06/21/2017 Comp Metabolic Zmp039 K 4.0 mEq/L 06/21/2017 Comp Metabolic Sus117 CL 94 mEq/L 06/21/2017 Comp Metabolic Zlm752 CO2 25.0 mEq/L 06/21/2017 Comp Metabolic Ipb488 AN ION GAP 18 06/21/2017 Comp Metabolic Kch732 GL UCOSE 88 mg/dL 06/21/2017 Comp Metabolic Eki691 Cr eat 0.6 mg/dL 06/21/2017 Comp Metabolic Syq544 eG FR 94 ml/min/1.73m2 06/21 Comp Metabolic Gom172 BUN 16 mg/dL 06/21/2017 Comp Metabolic Jhn212 B/ C Ratio 25.0 Ratio 06/21/2017 Comp Metabolic Nae532 CA LCIUM 9.1 mg/dL 06/21/2017 Comp Metabolic Zxk718 AL K PHOS 65 U/L 06/21/2017 Comp Metabolic Rsr608 T(SGOT) 31 U/L 06/21/2017 Comp Metabolic Fap593 AL T(SGPT) 20 U/L 06/21/2017 Comp Metabolic Blz722 BI LI T 0.5 mg/dL 06/21/2017 Comp Metabolic Dpr022 AL BUMIN 4.3 g/dL 06/21/2017 Comp Metabolic Scb430 TP RO 6.6 g/dL 06/21/2017 Comp Metabolic Ovk647 GL OB 2.3 g/dL 06/21/2017 Comp Metabolic Sku462 A/ G Ratio 1.8 Ratio 06/21/2017 Comp Metabolic Vns616 Os mo 267 mOsmo 06/21/2017 Lipid Ord30 CHOL 188 mg/dL 06/21/2017 Lipid Ord30 HDL 77.0 mg/dl 06/21/2017 Lipid Ord30 TRIG 66 mg/dL 06/21/2017 Lipid Ord30 LDL 98 mg/dL 06/21/2017 Lipid Ord30 C/HDL 2.4 Ratio 06/21/2017 Tsh Ord6 hTSH II 1.32 uIU/mL 06/21/2017 Comp Metabolic Kdq311 NA 135 mEq/L 02/09/2017 Comp Metabolic Fxt928 K 4.0 mEq/L 02/09/2017 Comp Metabolic Kjn759 CL 96 mEq/L 02/09/2017 Comp Metabolic Ouo164 CO2 28.0 mEq/L 02/09/2017 Comp Metabolic Etl506 AN ION GAP 15 02/09/2017 Comp Metabolic Pne210 GL UCOSE 101 mg/dL 02/09/2017 Comp Metabolic Sfy121 Cr eat 0.7 mg/dL 02/09/2017 Comp Metabolic Oqf053 eG FR 83 ml/min/1.73m2 02/09 Comp Metabolic Kem614 BUN 17 mg/dL 02/09/2017 Comp Metabolic Oho381 B/ C Ratio 23.9 Ratio 02/09/2017 Comp Metabolic Xdq191 CA LCIUM 9.3 mg/dL 02/09/2017 Comp Metabolic Cjb169 AL K PHOS 51 U/L 02/09/2017 Comp Metabolic Zfe995 T(SGOT) 33 U/L 02/09/2017 Comp Metabolic Zlo371 AL T(SGPT) 21 U/L 02/09/2017 Comp Metabolic Nit853 BI LI T 0.6 mg/dL 02/09/2017 Comp Metabolic Fqk231 AL BUMIN 4.3 g/dL 02/09/2017 Comp Metabolic Xzz882 TP RO 6.9 g/dL 02/09/2017 Comp Metabolic Oue256 GL OB 2.6 g/dL 02/09/2017 Comp Metabolic Vlm906 A/ G Ratio 1.7 Ratio 02/09/2017 Comp Metabolic Rxg770 Os mo 272 mOsmo 02/09/2017 Lipid Ord30 [...] 31.8 pg 02/09/2017 Cbc With Differential Ord2 Pope% 11.3 % 02/09/2017 Cbc With Differential Ord2 [...] 0.77 K/ul 02/09/2017 Cbc With Differential Ord2 Pope ABS# 0.6 K/ul 02/09/2017 Cbc With Differential [...] 31.5 pg 03/29/2016 Cbc With Differential Ord2 Pope% 9.5 % 03/29/2016 Cbc With Differential Ord2 [...] 0.60 K/ul 03/29/2016 Cbc With Differential Ord2 Pope ABS# 0.4 K/ul 03/29/2016 Cbc With Differential Ord2 Eos ABS# 0.1 K/ul 03/29/2016 Cbc With Differential Ord2 Baso ABS# 0.0 K/ul 03/29/2016 Comp Metabolic Vqx100 NA 135 mEq/L 03/29/2016 Comp Metabolic Imr154 K 3.7 mEq/L 03/29/2016 Comp Metabolic Thf387 CL 96 mEq/L 03/29/2016 Comp Metabolic Jxb179 CO2 30.0 mEq/L 03/29/2016 Comp Metabolic Xby840 AN ION GAP 13 03/29/2016 Comp Metabolic Zum243 GL UCOSE 102 mg/dL 03/29/2016 Comp Metabolic Tjb186 Cr eat 0.6 mg/dL 03/29/2016 Comp Metabolic Apd806 eG FR 94 ml/min/1.73m2 03/29 Comp Metabolic Tmn356 BUN 15 mg/dL 03/29/2016 Comp Metabolic Wmp800 B/ C Ratio 23.4 Ratio 03/29/2016 Comp Metabolic Rat137 CA LCIUM 9.1 mg/dL 03/29/2016 Comp Metabolic Ufx308 AL K PHOS 70 U/L 03/29/2016 Comp Metabolic Pln844 T(SGOT) 35 U/L 03/29/2016 Comp Metabolic Zzj338 AL T(SGPT) 27 U/L 03/29/2016 Comp Metabolic Jul285 BI LI T 0.5 mg/dL 03/29/2016 Comp Metabolic Coa262 AL BUMIN 4.2 g/dL 03/29/2016 Comp Metabolic Ycm965 TP RO 6.6 g/dL 03/29/2016 Comp Metabolic Oqh382 GL OB 2.4 g/dL 03/29/2016 Comp Metabolic Lpb931 A/ G Ratio 1.7 Ratio 03/29/2016 Comp Metabolic Kdk486 Os mo 271 mOsmo 03/29/2016 Tsh Ord6 hTSH II 1.17 uIU/mL 03/29/2016 B12 Fzz147 B12 838.00 pg/ml 09/02/2015 Tsh Ord6 hTSH [...] Ord2 RDW 15.1 % 09/02/2015 Comp Metabolic Hjg466 NA 135 mEq/L 09/02/2015 Comp Metabolic Tzr166 K 3.4 mEq/L 09/02/2015 Comp Metabolic Dca111 CL 95 mEq/L 09/02/2015 Comp Metabolic Hme160 CO2 27.0 mEq/L 09/02/2015 Comp Metabolic Zvb077 AN ION GAP 16 09/02/2015 Comp Metabolic Xiu894 GL UCOSE 94 mg/dL 09/02/2015 Comp Metabolic Btv183 Cr eat 0.7 mg/dL 09/02/2015 Comp Metabolic Vyi812 eG FR 87 ml/min/1.73m2 09/02 Comp Metabolic Jid336 BUN 18 mg/dL 09/02/2015 Comp Metabolic Nmh401 B/ C Ratio 26.1 Ratio 09/02/2015 Comp Metabolic Ndp474 CA LCIUM 9.0 mg/dL 09/02/2015 Comp Metabolic Aka869 AL K PHOS 67 U/L 09/02/2015 Comp Metabolic Luq932 T(SGOT) 30 U/L 09/02/2015 Comp Metabolic Cvo337 AL T(SGPT) 21 U/L 09/02/2015 Comp Metabolic Pis485 BI LI T 0.6 mg/dL 09/02/2015 Comp Metabolic Jye219 AL BUMIN 4.3 g/dL 09/02/2015 Comp Metabolic Ogh256 TP RO 6.8 g/dL 09/02/2015 Comp Metabolic Wmj386 GL OB 2.5 g/dL 09/02/2015 Comp Metabolic Jhp052 A/ G Ratio 1.7 Ratio 09/02/2015 Comp Metabolic Lal983 Os mo 272 mOsmo 09/02/2015 Lipid Ord30 [...] pain 01/01/2018 Neurologic No syncope Psychiatric anxiety 04/05/2018 Musculoskeletal shoulder pain 01/01/2018 Constitutional No recent [...] Procedure Codes Date TRIM SKIN LESION CPT-4: 44648 01/09/2019 TRIM SKIN LESIONS 2 TO 4 CPT-4: 78810 01/09/2019 ADMIN INFLUENZA VIRU S VAC CPT-4: G0008 06/21/2018 FLU VACC PRSV FREE I NC ANTIG CPT-4: 10320 06/21/2018 ADMIN INFLUENZA VIRU S VAC CPT-4: G0008 06/21/2017 FLU VACC PRSV FREE I NC ANTIG CPT-4: 18829 06/21/2017 ADMIN INFLUENZA VIRU S VAC CPT-4: G0008 06/24/2016 FLU VACC 4 CRISTINE 3 YRS PLUS IM Formatting Model/CDA Sections, Assigned to/Carmen Solis SNOMED CT: 29836212 CPT-4: 82696Fpncoai 06/24/2016 ADMIN INFLUENZA VIRU S VAC CPT-4: G0008 06/19/2015 FLU VACC 4 CRISTINE 3 YRS PLUS IM Formatting Model/CDA Sections, Assigned to/Carmen Solis SNOMED CT: 08987254 CPT-4: 39904Hinaxds 06/19/2015 Vital Signs Date Vital 01/09/2019 Blood Pressure 1: 132/62 Code: 8480-6 BMI: 15.8 Code: 24293-4 Heart Rate 1: 69 bpm Height: 5'2" SpO2: 98% Weight: 88 lbs 12/31/2018 Blood Pressure 1: 140/52 Code: 8480-6 BMI: 16.2 Code: 66201-8 Heart Rate 1: 70 bpm Height: 5'2" SpO2: 95% Weight: 90 lbs 09/05/2018 Blood Pressure 1: 138/74 Code: 8480-6 BMI: 16.1 Code: 88671-7 Heart Rate 1: 69 bpm Height: 5'2" SpO2: 98% Weight: 89 lbs 8 oz 08/15/2018 Blood Pressure 1: 142/72 Code: 8480-6 BMI: 16.3 Code: 98445-1 Heart Rate 1: 66 bpm Height: 5'2" SpO2: 99% Weight: 90 lbs 8 oz 05/29/2018 Blood Pressure 1: 140/70 Code: 8480-6 BMI: 16.2 Code: 28881-2 Heart Rate 1: 67 bpm Height: 5'2" SpO2: 99% Weight: 90 lbs 05/14/2018 Blood Pressure 1: 146/68 Code: 8480-6 BMI: 16.0 Code: 54362-4 Heart Rate 1: 70 bpm Height: 5'2" SpO2: 98% Weight: 89 lbs 04/18/2018 Blood Pressure 1: 126/68 Code: 8480-6 BMI: 15.7 Code: 19886-5 Heart Rate 1: 81 bpm Height: 5'2" SpO2: 99% Weight: 87 lbs 01/22/2018 Blood Pressure 1: 136/76 Code: 8480-6 BMI: 15.8 Code: 13238-5 Heart Rate 1: 73 bpm Height: 5'2" SpO2: 99% Weight: 88 lbs 01/01/2018 Blood Pressure 1: 148/76 Code: 8480-6 BMI: 15.8 Code: 92204-2 Heart Rate 1: 74 bpm Height: 5'2" SpO2: 98% Weight: 88 lbs 12/12/2017 Blood Pressure 1: 140/72 Code: 8480-6 BMI: 15.8 Code: 36042-5 Heart Rate 1: 65 bpm Height: 5'2" SpO2: 96% Weight: 88 lbs 09/13/2017 Blood Pressure 1: 138/70 Code: 8480-6 BMI: 15.9 Code: 40251-6 Heart Rate 1: 74 bpm Height: 5'2" SpO2: 99% Weight: 88 lbs 8 oz 06/21/2017 Blood Pressure 1: 122/50 Code: 8480-6 BMI: 15.3 Code: 67219-7 Heart Rate 1: 69 bpm Height: 5'2" SpO2: 99% Weight: 85 lbs 05/25/2017 Blood Pressure 1: 138/72 Code: 8480-6 Heart Rate 1: 77 bpm Height: 5'2" SpO2: 98% Weight: 05/16/2017 Blood Pressure 1: 136/78 Code: 8480-6 Heart Rate 1: 86 bpm Height: 5'2" SpO2: 98% Weight: 02/15/2017 Blood Pressure 1: 144/78 Code: 8480-6 BMI: 15.4 Code: 48678-5 Heart Rate 1: 65 bpm Height: 5'2" SpO2: 98% Weight: 85 lbs 8 oz 11/22/2016 Blood Pressure 1: 140/58 Code: 8480-6 BMI: 14.8 Code: 69196-8 Heart Rate 1: 79 bpm Height: 5'2" SpO2: 99% Weight: 82 lbs 09/15/2016 BMI: 16.0 Code: 20746-0 Height: 5'2" Weight: 89 lbs 09/07/2016 Blood Pressure 1: 130/62 Code: 8480-6 BMI: 16.2 Code: 73302-7 Heart Rate 1: 71 bpm Height: 5'2" SpO2: 98% Weight: 90 lbs 07/06/2016 Blood Pressure 1: 144/76 Code: 8480-6 BMI: 15.8 Code: 69924-0 Heart Rate 1: 78 bpm Height: 5'2" SpO2: 99% Weight: 88 lbs 04/06/2016 Blood Pressure 1: 148/58 Code: 8480-6 BMI: 16.2 Code: 33139-8 Heart Rate 1: 64 bpm Height: 5'2" SpO2: 97% Weight: 90 lbs 01/06/2016 Blood Pressure 1: 146/72 Code: 8480-6 BMI: 16.6 Code: 95783-6 Heart Rate 1: 62 bpm Height: 5'2" SpO2: 99% Weight: 92 lbs 09/02/2015 Blood Pressure 1: 132/70 Code: 8480-6 BMI: 16.6 Code: 72881-2 Heart Rate 1: 77 bpm Height: 5'2" SpO2: 98% Weight: 92 lbs 06/15/2015 Blood Pressure 1: 144/60 Code: 8480-6 BMI: 16.7 Code: 62183-9 Heart Rate 1: 66 bpm Height: 5'2" SpO2: 97% Weight: 93 lbs 03/04/2015 Blood Pressure 1: 120/80 Code: 8480-6 BMI: 15.8 Code: 50249-2 Heart Rate 1: 74 bpm Height: 5'2" [...] lacks strength 01/01/2018 None hypertension Quality robinson linus hypertension 12/12/2017 None hypertension Onset and Resolution [...] triggers 02/15/2017 None Hospital Follow Up _ Ot er: surgery follow up 11/22/2016 None hypertension [...] Encounters Encounter Performer Loca tion Codes Date ([id number]) [id number] EST. P [facility], LEVEL IV Diagnosis: Essential (primary) hypertension[ICD10: I10] [...] Corns and callosities[ICD10: L84] Anum Bradshaw MD, [facility] CPT-4: 40549 01/09/2019 [id number] EST. PATIENT, LEVEL IV Diagnosis: Dysuria[ICD10: R30.0] Kala Bradshaw MD, [facility] CPT-4: 00997 12/31/2018 ([id number]) [id number] EST. P ATIENT, LEVEL IV Diagnosis: Essential (primary) hypertension[ICD10: I10] Diagnosis: Rash and other nonspecific skin eruption[ICD10: R21] Anum Bradshaw MD, [facility] CPT-4: 24471 09/05/2018 ([id number]) 17367 EST. P ATIENT, LEVEL IV Diagnosis: Essential (primary) hypertension[ICD10: I10] Diagnosis: Tinea barbae and tinea capitis[ICD10: B35.0] Diagnosis: Unsteadiness on feet[ICD10: R26.81] Diagnosis: Weakness[ICD10: R53.1] Anum Bradshaw MD, [facility] CPT-4: 72502 08/15/2018 ([id number]) [id number] EST. P ATIENT, LEVEL III Diagnosis: Rash and other nonspecific skin eruption[ICD10: R21] Diagnosis: Other allergic rhinitis[ICD10: J30.89] Diagnosis: Gastro-esophageal reflux disease without esophagitis[ICD10: K21.9] Rosalinda Bradshaw MD, [facility] CPT-4: 36286 05/29/2018 ([id number]) 90998 EST. P ATIENT, LEVEL III Diagnosis: Rash and other nonspecific skin eruption[ICD10: R21] Rosalinda Bradshaw MD, [facility] CPT-4: 67701 05/14/2018 ([id number]) 36424 EST. P ATIENT, LEVEL IV Diagnosis: Essential (primary) hypertension[ICD10: I10] Diagnosis: Underweight[ICD10: R63.6] Diagnosis: Mixed hyperlipidemia[ICD10: E78.2] Anum Bradshaw MD, [facility] CPT- 4: 23639 04/18/2018 ([id number]) 06382 EST. P ATIENT, LEVEL III Diagnosis: Bicipital tendinitis, left shoulder[ICD10: M75.22] Anum Bradshaw MD, C CPT-4: 28742 01/22/2018 ([id number]) 34593 EST. P ATIENT, LEVEL III Diagnosis: Pain in right shoulder[ICD10: M25.511] Diagnosis: Bicipital tendinitis, right shoulder[ICD10: M75.21] Anum Bradshaw MD, [facility] CPT-4: 94661 01/01/2018 ([id number]) 94172 EST. P ATIENT, LEVEL IV Diagnosis: Essential (primary) hypertension[ICD10: I10] Diagnosis: Underweight[ICD10: R63.6] Diagnosis: Mixed hyperlipidemia[ICD10: E78.2] Diagnosis: Actinic keratosis[ICD10: L57.0] Anum Bradshaw MD, [facility] CPT-4: 57604 12/12/2017 ([id number]) 47600 EST. P ATIENT, LEVEL III Diagnosis: Essential (primary) hypertension[ICD10: I10] Diagnosis: Fracture of unspecified part of neck of left femur, subsequent encounter for closed fracture with routine healing[ICD10: S72.002D] Diagnosis: Underweight[ICD10: R63.6] Anum Bradshaw MD, [facility] CPT-4: 32660 09/13/2017 ([id number]) 61199 EST. P ATIENT, LEVEL IV Diagnosis: Mixed hyperlipidemia[ICD10: E78.2] Diagnosis: Essential (primary) hypertension[ICD10: I10] Diagnosis: Vitamin B12 deficiency anemia due to intrinsic factor deficiency[ICD10: D51.0] Diagnosis: Gastro-esophageal reflux disease with esophagitis[ICD10: K21.0] Diagnosis: Age-related osteoporosis without current pathological fracture[ICD10: M81.0] Diagnosis: Encounter for immunization[ICD10: Z23] Anum Bradshaw MD, [facility] CPT-4: 71393 06/21/2017 ([id number]) 32315 EST. P ATIENT, LEVEL III Diagnosis: Fracture of unspecified part of neck of left femur, subsequent encounter for closed fracture with routine healing[ICD10: S72.002D] Diagnosis: Underweight[ICD10: R63.6] Diagnosis: Gastro-esophageal reflux disease with esophagitis[ICD10: K21.0] Anum Bradshaw MD, [facility] CPT-4: 92932 05/25/2017 ([id number]) 46529 EST. P ATIENT, LEVEL IV Diagnosis: Essential (primary) hypertension[ICD10: I10] Diagnosis: Fracture of unspecified part of neck of left femur, subsequent encounter for closed fracture with routine healing[ICD10: S72.002D] Diagnosis: Generalized anxiety disorder[ICD10: F41.1] Anum Bradshaw MD, C CPT-4: 24550 05/16/2017 ([id number]) 88081 EST. P ATIENT, LEVEL IV Diagnosis: Essential (primary) hypertension[ICD10: I10] Diagnosis: Mixed hyperlipidemia[ICD10: E78.2] Diagnosis: Generalized anxiety disorder[ICD10: F41.1] Anum Bradshaw MD, [facility] CPT-4: 73713 02/15/2017 ([id number]) 06291 EST. P ATIENT, LEVEL IV Diagnosis: Mixed hyperlipidemia[ICD10: E78.2] Diagnosis: Generalized anxiety disorder[ICD10: F41.1] Diagnosis: Essential (primary) hypertension[ICD10: I10] Diagnosis: Gastro-esophageal reflux disease with esophagitis[ICD10: K21.0] Anum Bradshaw MD, [facility] CPT-4: 39937 11/22/2016 80702 EST. PATIENT, LEVEL III Diagnosis: Inflamed seborrheic keratosis[ICD10: L82.0] Kala Bradshaw MD, [facility] CPT-4: 72617 09/15/2016 ([id number]) 51831 EST. P ATIENT, LEVEL IV Diagnosis: Essential (primary) hypertension[ICD10: I10] Diagnosis: Mixed hyperlipidemia[ICD10: E78.2] Diagnosis: Generalized anxiety disorder[ICD10: F41.1] Anum Bradshaw MD, [facility] CPT-4: 99751 09/07/2016 ([id number]) 40266 EST. P ATIENT, LEVEL IV Diagnosis: Essential (primary) hypertension[ICD10: I10] Diagnosis: Frequency of micturition[ICD10: R35.0] Diagnosis: Age-related osteoporosis without current pathological fracture[ICD10: M81.0] Anum Bradshaw MD, [facility] CPT-4: 20259 07/06/2016 ([id number]) 93964 EST. P [facility], LEVEL IV Diagnosis: Essential (primary) hypertension[ICD10: I10] Diagnosis: Mixed hyperlipidemia[ICD10: E78.2] Diagnosis: Gastro-esophageal reflux disease with esophagitis[ICD10: K21.0] Anum Bradshaw MD, [facility] CPT-4: 76280 04/06/2016 87458 EST. PATIENT, LEVEL IV Diagnosis: Essential (primary) hypertension[ICD10: I10] Diagnosis: Gastro-esophageal reflux disease with esophagitis[ICD10: K21.0] Kala Bradshaw MD, [facility] CPT-4: 62538 01/06/2016 ([id number]) 36266 EST. P [facility], LEVEL IV Diagnosis: Essential (primary) hypertension[ICD10: I10] Diagnosis: Gastro-esophageal reflux disease with esophagitis[ICD10: K21.0] Diagnosis: Other dietary vitamin B12 deficiency anemia[ICD10: D51.3] Diagnosis: Vitamin B12 deficiency anemia due to intrinsic factor deficiency[ICD10: D51.0] Diagnosis: Occlusion and stenosis of unspecified carotid artery[ICD10: I65.29] Anum Bradshaw MD, [facility] CPT-4: 01684 09/02/2015 ([id number]) 92840 EST. P [facility], LEVEL III Diagnosis: Carpal tunnel syndrome[ICD9: 354.0] Diagnosis: Inflamed seborrheic keratosis[ICD9: 702.11] Rosalinda Bradshaw MD, [facility] CPT-4: 69936 06/15/2015 ([id number]) OFFICE VISI T, [facility] - LEVEL 4 Diagnosis: ESSENTIAL HYPERTENSION[ICD9: 401.9] Diagnosis: ESOPHAGEAL REFLUX[ICD9: 530.81] Diagnosis: HYPERLIPIDEMIA[ICD9: 272.4] Anum Bradshaw MD, [facility] CPT-4: 09266 03/04/2015 Plan of Care Planned Activity Notes C odes Status Date Visit Plan: Hypertension - well con trolled - continue with current medications, continue with no added salt diet. Pt has been encouraged to exercise daily. The pt has been advised to call the office if there are any acute concerns about change in blood pressure readings at home. [place] on toe - debrided with scalpel today. [...] caloric intake. 01/09/2019 Appointment: Anum Bradshaw WPtel: [facility] (15 min) Moderate 01/09/2019 Patient Education: Patient Medication Summary Completed 01/09/2019 Patient Education: Hypertension Completed 01/09/2019 Patient Education: Cholesterol Management Completed 01/09/2019 Visit Plan: UTI - pt with positive urinalysis - culture sent if appropriate. Antibiotic electronically prescribed to pt's pharmacy of choice. Pt to call if symptoms do not improve. 12/31/2018 Appointment: [phone] (30 min) Complex 12/31/2018 Patient Education: Patient [...] betamethasone. 09/05/2018 Appointment: [facility] Bradshaw [phone] [facility] (15 min) Moderate 09/05/2018 Patient Education: Patient Medication Summary Completed 09/05/2018 Patient Education: Hypertension Completed 09/05/2018 Visit Plan: Hypertension - well con nataliaed [...] improving. 08/15/2018 Appointment: Anum Bradshaw WPtel: [phone] [facility] (15 min) Moderate 08/15/2018 Patient Education: Patient Medication Summary Completed 08/15/2018 Patient Education: Hypertension Completed 08/15/2018 Appointment: Anum Bradshaw WPtel: [phone] [facility] (15 min) Moderate 2018 Appointment: Injection 06/21/2018 [...] ketoconazole shampoo 05/29/2018 Appointment: Rosalinda Bermudez WPtel: [phone] [phone] [place] (30 min) Complex 05/29/2018 Patient Education: [...] if needed 05/14/2018 Appointment: Rosalinda Bermudez WPtel: [phone] [phone] [place] (30 min) Complex 05/14/2018 Patient Education: [...] medications. 04/18/2018 Appointment: Anum Bradshaw WPtel: [phone] [facility] [place] (15 min) Moderate 04/18/2018 Patient Education: Patient Medication Summary Completed 04/18/2018 Appointment: Injection 03/08/2018 Visit Plan: Left shoulder pain - bi cep tendonitis - continue with physical therapy at [facility]. Use voltaren gel on left shoulder now - continue with therapy on right shoulder. 01/22/2018 Appointment: Anum Bradshaw WPtel: [phone] [facility] [place] (15 min) Moderate 01/22/2018 Patient [...] tendonitis - referral to physical therapy at [facility] 01/01/2018 Appointment: Anum Bradshaw WPtel: [facility] [place] (15 min) Moderate 01/01/2018 Patient Education: Patient [...] weeks 12/12/2017 Appointment: Anum Bradshaw WPtel: [phone] [facility] (15 min) Moderate 12/12/2017 Patient Education: Patient [...] healing. 09/13/2017 Appointment: [facility]shaw [facility]el[phone] [facility] (15 min) Moderate 09/13/2017 Patient Education: [...] not improving. 06/21/2017 Appointment: Anum Bradshaw WPtel: [phone] [facility] (15 min) Moderate 06/21/2017 Patient Education: Patient Medication Summary Completed 06/21/2017 Visit Plan: Esophageal Reflux - the patient has been taking medication as directed and her symptoms are improved. Hip fracture - continue with supportive care, nonweight bearing. Underweight - increase protein intake, higher calorie diet, use wheelchair to decrease excessive caloric expenditure. 05/25/2017 Appointment: Anum Bradshaw [facility]Ptel[facility] [phone] [facility] (15 min) Moderate 05/25/2017 Patient Education: Patient Medication Summary Completed 05/25/2017 Visit Plan: Hypertension - well con christian - continue with current medications, continue with [...] current medications. 05/16/2017 Appointment: Anum Bradshaw WPtel: [facility] [place] (15 min) Moderate 05/16/2017 Patient Education: Patient [...] to medications. 02/15/2017 Appointment: Anum Bradshaw WPtel: [facility] [place] (15 min) Moderate 02/15/2017 Patient Education: Patient Medication Summary Completed 02/15/2017 Patient Education: Hypertension Completed 02/15/2017 Care Plan: Referral Order SNOMED-CT : [id number] Pending 02/15/2017 Appointment: Anum Bradshaw WPtel: [facility] (15 min) Moderate 01/11/2017 Visit Plan: [...] treatment 11/22/2016 Appointment: Anum Bradshaw WPtel: [phone] [facility] [place] (15 min) Moderate 11/22/2016 Patient Education: Patient Medication Summary Completed 11/22/2016 Patient Education: Hypertension Completed 11/22/2016 Appointment: Rosalinda Bermudez WPtel: [phone] [phone] [place] (30 min) Complex 09/16/2016 Visit Plan: [...] symptoms. 09/07/2016 Appointment: Anum Bradshaw [facility]Ptel[phone] [facility] (15 min) Moderate 09/07/2016 Patient Education: Patient [...] ua negative 07/06/2016 Appointment: Anum Bradshaw WPtel: [facility] [place] (15 min) Moderate 07/06/2016 Patient Education: Patient [...] not improving. 04/06/2016 Appointment: Anum Bradshaw WPtel: [facility] [place] (15 min) Moderate 04/06/2016 Patient Education: Patient [...] 09/02/2015 Care Plan: Referral Order SNOMED-CT : [id number] Ordered 09/02/2015 Appointment: Injection 06/19/2015 Patient Education: [...] Summary Completed 06/15/2015 Visit Plan: Hypertension - mike gonzales - continue with current medications, continue [...] not improving. 03/04/2015 Appointment: Anum Bradshaw WPtel: [facility] [place] [place] ([place] New Patient 03/04/2015 Patient Education: Patient Medication Summary Completed 03/04/2015 Patient Education: Hypertension Completed 03/04/2015 Patient Education: Patient Medication Summary Completed 02/10/2015 Referral: Dickson Forde Referral Appointment Requested Referral: Kenneth Sykes Referral Appointment Requested Instructions Comment . Left shoulder pain - bicep tendonitis [...] - referral to physical therapy at [facility] [place] . Hypertension - wel l controlled - [...] change in blood pressure readings at home. [place] on toe - debrided with scalpel today. [...] drainage, or any other acute concerns. . Esophageal Reflux - the patient has [...]
--- OUTSIDE RECORDS SUMMARY | 2019-12-29 11:18 | XMS REPORT | CCD ---
Author Author Ashley Bradshaw Organization [facility] Address [address] [place] [address] Phone Care Team Providers Care Landscape Photographer Name Role Phone PP Unavailable CCM Unavailable Summary Purpose Interface Exchange Insurance Providers Payer name Policy type / Coverage type Covered green party ID Effective Begin Date Effective End Date WPS Medicare Part B Medicare Part B [id number] Unknown Unknown CIGNA Medicare Part B [id number] Unknown Unknown Family history Father Diagnosis Age At Onset Coronary Artery Disease Unknown Mother Diagnosis Age At Onset Anemia Unknown Skin cancer Unknown Hypertension Unknown Cancer Unknown Breast cancer Unknown Social History Social History Element Codes Description Effective Dates Marital status Unknown M arrkimberly Shahram 03/04/2015 Number of children Unknown 3 03/04/[address]: 925869408 Never smoker 03/04/[address]: 628835660 Never drinks alcohol 03/04/2015 Allergies, Adverse Reactions, Alerts Substance Reaction Codes Entered Date Inactivated Date Status NEOSPORIN RxNorm: 195119 01/06/2016 No Inactive Date Active Past Medical [...] Date Stop Date Sta tus Fill Instructions Keflex 500 mg capsule RxNorm: 906470 1 Capsule(s) PO TID 12/31/2018 01/09/2019 Inactive Pyridium 200 mg tablet RxNorm: 3993410 1 Tablet(s) PO TID 12/31/2018 01/01/2019 Inactive esomeprazole magnesi um 40 mg capsule,delayed release RxNorm: 089082 Capsule(s) TAKE 1 CAPSULE BY MOUTH DAILY 11/27/2018 02/19/2020 Active wants to pay henry Zantac 150 mg tablet RxNorm: 501026 1 Tablet(s) PO BID 11/02/2018 11/26/2018 Inactive Zantac 150 mg tablet RxNorm: 769740 1 Tablet(s) PO BID 11/02/2018 11/01/2018 Inactive sucralfate 100 mg/mL oral suspension RxNorm: 797757 10 Milliliter(s) per 1 gram PO QID 10/08/2018 10/02/2019 Active diltiazem 30 mg tablet RxNorm: 165095 1 Tablet(s) PO QID 10/08/2018 10/02/2019 Active betamethasone nasir te 0.1 % topical cream RxNorm: 708149 1 Application TOP BID 09/05/2018 11/03/2018 In active ketoconazole 2 % top ical cream RxNorm: 072745 1 Application TOP BID to posterior scalp x 2 weeks or until the skin is healed 08/15/2018 08/28/2018 Inactive triamterene 37.5 mg- hydrochlorothiazide 25 mg tablet RxNorm: 174847 Tablet(s) 1 Tablet(s) PO daily 07/12/2018 01/07/2019 Inactive PLEASE SEND REFILL REQUESTS ELECTRONICALLY simvastatin 20 mg ta blet RxNorm: 113498 TAKE 1 TABLET BY MOUT H EVERY DAY 07/12/2018 01/07/2019 In active ketoconazole 2 % sha mpoo RxNorm: 239366 1 Application TOP BIW 05/14/2018 No Stop Date Active simvastatin 20 mg ta blet RxNorm: 073069 TAKE 1 TABLET BY MOUT H EVERY DAY 03/01/2018 07/11/2018 In active triamterene 37.5 mg- hydrochlorothiazide 25 mg tablet RxNorm: 184170 Tablet(s) 1 Tablet(s) PO daily 02/06/2018 07/11/2018 Inactive PLEASE SEND REFILL REQUESTS ELECTRONICALLY Voltaren 1 % topical gel RxNorm: 070927 2 Gram(s) TOP TID to shoulders 01/01/2018 04/30/2018 In active sucralfate 100 mg/mL oral suspension RxNorm: 672314 10 Milliliter(s) per 1 gram PO QID 12/12/2017 06/09/2018 Inactive refill 3 month supply- 1gm/10ml simvastatin 20 mg ta blet RxNorm: 506390 TAKE 1 TABLET BY MOUT H EVERY DAY 12/04/2017 02/28/2018 In active escitalopram 5 mg ta blet RxNorm: 109284 1 Tablet(s) PO QPM 10/26/2017 01/18/2019 Active esomeprazole magnesi um 40 mg capsule,delayed release RxNorm: 986493 TAKE 1 CAPSULE BY MOUTH DAILY 10/26/2017 11/01/2018 Inactive mupirocin 2 % topica l ointment RxNorm: 998324 APPLY TO AFFECTED ARE A(S) ONCE DAILY 10/16/2017 11/28/2017 In active diltiazem 30 mg tablet RxNorm: 086459 1 Tablet(s) PO QID 10/09/2017 10/03/2018 Inactive triamterene 37.5 mg- hydrochlorothiazide 25 mg tablet RxNorm: 025778 1 Tablet(s) PO daily 07/28/2017 01/23/2018 Inactive fluticasone 50 mcg/a ctuation nasal spray,suspension RxNorm: 5044090 2 [place] NASAL daily 07/20/2017 01/08/2019 Inactive diltiazem 30 mg tablet RxNorm: 660774 1 Tablet(s) PO QID TAKE 1 TABLET BY MOUT H FOUR TIMES DAILY 07/13/2017 10/08/2017 Inactive simvastatin 20 mg ta blet RxNorm: 515685 TAKE 1 TABLET BY MOUT H EVERY DAY 06/08/2017 12/03/2017 In active Nexium 40 mg capsule ,delayed release RxNorm: 493617 1 Capsule(s) PO daily 05/25/2017 11/27/2017 In active esomeprazole magnesi um 40 mg capsule,delayed release RxNorm: 433322 Capsule(s) TAKE 1 CAPSULE BY MOUTH DAILY 05/17/2017 02/10/2018 Inactive diltiazem 30 mg tablet RxNorm: 231068 Tablet(s) TAKE 1 TABLET BY MOUTH FOUR TI MES DAILY 05/16/2017 07/12/2017 Inactive diltiazem 30 mg tablet RxNorm: 774191 TAKE 1 TABLET BY MOUTH THREE TIMES DAILY 02/09/2017 05/15/2017 In active Zofran ODT 4 mg disi ntegrating tablet RxNorm: 083569 1 Tablet(s) PO Q6 as needed 11/16/2016 11/22/2016 In active Protonix 40 mg table t,delayed release RxNorm: 620221 1 Tablet(s) PO daily 11/16/2016 12/15/2016 In active Protonix 40 mg table t,delayed release RxNorm: 270379 1 Tablet(s) PO daily 11/16/2016 11/15/2016 In active Zofran ODT 4 mg disi ntegrating tablet RxNorm: 728655 1 Tablet(s) PO Q6 as needed 11/16/2016 11/15/2016 In active escitalopram 5 mg ta blet RxNorm: 001679 1 Tablet(s) PO QPM 10/28/2016 10/22/2017 Inactive escitalopram 5 mg ta blet RxNorm: 523868 1 Tablet(s) PO QPM 10/05/2016 10/27/2016 Inactive mupirocin 2 % topica l ointment RxNorm: 064180 1 Application TOP yao ly APPLY TO AFFECTED AREA(S) TOPICALLY DAILY 09/07/2016 11/05/2016 Inactive Efudex 5 % topical c ream RxNorm: 033647 1 TOP BID 09/07/2016 09/16/2016 Inactive escitalopram 5 mg ta blet RxNorm: 879166 1 Tablet(s) PO QPM 09/07/2016 10/04/2016 Inactive sucralfate 100 mg/mL oral suspension RxNorm: 319956 10 Milliliter(s) per 1 gram PO QID 08/03/2016 07/28/2017 Inactive refill 3 month supply- 1gm/10ml clorazepate dipotass ium 3.75 mg tablet RxNorm: 050289 1 Tablet(s) PO QHS as needed insomnia 07/06/2016 08/14/2018 Inactive triamterene 37.5 mg- hydrochlorothiazide 25 mg tablet RxNorm: 563305 1 Tablet(s) PO daily 06/29/2016 06/23/2017 Inactive Nexium 40 mg capsule ,delayed release RxNorm: 938282 1 Capsule(s) PO daily 06/29/2016 07/05/2016 In active Bactroban 2 % topica l ointment RxNorm: 059795 APPLY TO AFFECTED ARE A(S) TOPICALLY DAILY 06/22/2016 09/06/2016 Inactive esomeprazole magnesi um 40 mg capsule,delayed release RxNorm: 152964 TAKE 1 CAPSULE BY MOUTH DAILY 06/13/2016 03/09/2017 Inactive simvastatin 20 mg ta blet RxNorm: 669108 1 Tablet(s) PO daily 05/16/2016 06/07/2017 Inactive simvastatin 20 mg ta blet RxNorm: 917267 1 Tablet(s) PO daily 05/12/2016 05/15/2016 Inactive famotidine 40 mg tablet RxNorm: 861986 TAKE 1 TABLET BY MOUTH DAILY 05/05/2016 01/29/2017 Inactive Bactroban 2 % topica l ointment RxNorm: 858592 APPLY TO AFFECTED ARE A(S) TOPICALLY DAILY 04/25/2016 05/01/2016 Inactive fluticasone 50 mcg/a ctuation nasal spray,suspension RxNorm: 9629805 2 [place] NASAL daily 03/23/2016 09/18/2016 Inactive fluticasone 50 mcg/a ctuation nasal spray,suspension RxNorm: 673867 2 [place] NASAL daily 03/07/2016 03/22/2016 Inactive Bactroban 2 % topica l ointment RxNorm: 070315 APPLY TO AFFECTED ARE A(S) TOPICALLY DAILY 02/29/2016 03/06/2016 Inactive diltiazem 30 mg tablet RxNorm: 744490 1 Tablet(s) PO TID 02/18/2016 02/08/2017 Inactive Bactroban 2 % topica l ointment RxNorm: 207118 1 Application TOP 01/08/2016 02/28/2016 Inactive clorazepate dipotass ium 3.75 mg tablet RxNorm: 754565 1 Tablet(s) PO daily 12/14/2015 06/10/2016 In active fluticasone 50 mcg/a ctuation nasal spray,suspension RxNorm: 751182 2 [place] NASAL daily 12/14/2015 02/11/2016 Inactive diltiazem 30 mg tablet RxNorm: 539968 1 Tablet(s) PO TID 09/03/2015 02/17/2016 Inactive simvastatin 20 mg ta blet RxNorm: 527522 1 Tablet(s) PO daily 08/24/2015 05/11/2016 Inactive triamterene 37.5 mg- hydrochlorothiazide 25 mg tablet RxNorm: 958723 1 Tablet(s) PO daily 07/09/2015 06/28/2016 Inactive clorazepate dipotass ium 15 mg tablet RxNorm: 517273 1 Tablet(s) PO daily 07/06/2015 07/06/2015 In active clorazepate dipotass ium 3.75 mg tablet RxNorm: 030977 1 Tablet(s) PO daily 07/06/2015 12/13/2015 In active esomeprazole magnesi um 40 mg capsule,delayed release RxNorm: 387177 1 Capsule(s) PO daily 06/26/2015 06/12/2016 Inactive famotidine 40 mg tablet RxNorm: 972337 1 Tablet(s) PO daily 06/26/2015 05/04/2016 Inactive diltiazem 30 mg tablet RxNorm: 802560 1 Tablet(s) PO TID 06/09/2015 09/02/2015 Inactive sucralfate 100 mg/mL oral suspension RxNorm: 956939 10 Milliliter(s) per 1 gram PO QID 04/28/2015 04/21/2016 Inactive refill 3 month supply- 1gm/10ml member I d [id number] sucralfate 100 mg/mL oral suspension RxNorm: 351402 10 Milliliter(s) per 1 gram PO QID 04/27/2015 04/27/2015 Inactive refill 3 month supply diltiazem 30 mg tablet RxNorm: 169771 1 Tablet(s) PO TID 02/18/2015 02/17/2015 Inactive diltiazem 30 mg tablet RxNorm: 046554 1 Tablet(s) PO TID 02/18/2015 05/18/2015 Inactive Vitamin D3 2,000 uni t tablet RxNorm: 917779 Tablet(s) PO daily No Start Date Active Nidia ODT oral RxNorm: 030650 oral No Start Date Active PreserVision Lutein oral RxNorm: [address] art Date Active Vitamin B-12 oral RxNorm: 79834 oral No Start Date Active Calcium 500 + D oral RxNorm: 067096 oral No Start Date Active ketoconazole 2 % [facility] mpoo RxNorm: 442107 1 TOP daily No Start Date Active ketoconazole 2 % [facility] mpoo RxNorm: 923204 TOP No St art Date Active melatonin 5 mg tablet RxNorm: 298566 Tablet(s) PO QHS as needed No Start Date Active vitamin B6-vitamin E -magnesium oral RxNorm: 341769 oral No S tart Date Active famotidine 40 mg tablet RxNorm: 827920 1 Tablet(s) PO daily No Start Date 06/25/2015 Inactive clorazepate dipotass ium 3.75 mg tablet RxNorm: 094343 1 Tablet(s) PO daily No Start Date 07/05/2015 Inactive Bactroban 2 % topica l ointment RxNorm: 356207 1 Application TOP No Start Date 01/07/2016 Inactive Carafate 1 gram tablet RxNorm: 861649 1 Tablet(s) PO QID No Start Date 04/26/2015 Inactive Zyrtec 10 mg tablet RxNorm: 7133183 1 Tablet(s) PO daily No Start Date 08/14/2018 Inactive esomeprazole magnesi um 40 mg capsule,delayed release RxNorm: 522126 Capsule(s) PO daily No Start Date 06/25/2015 Inactive fluticasone 50 mcg/a ctuation nasal spray,suspension RxNorm: 220923 2 [place] NASAL daily No Start Date 12/13/2015 Inactive Nexium 40 mg capsule ,delayed release RxNorm: 399677 1 Capsule(s) PO daily No Start Date 06/28/2016 Inactive triamterene 37.5 mg- hydrochlorothiazide 25 mg tablet RxNorm: 834588 1 Tablet(s) PO daily No Start Date 07/08/2015 Inactive simvastatin 20 mg ta blet RxNorm: 360566 1 Tablet(s) PO daily No Start Date [...] Item Item Code Result Date Comp Metabolic Hed925 NA 134 mEq/L 01/09/2019 Comp Metabolic Gyj241 K 3.4 mEq/L 01/09/2019 Comp Metabolic Qtp302 CL 94 mEq/L 01/09/2019 Comp Metabolic Gwu006 CO2 30.0 mEq/L 01/09/2019 Comp Metabolic Aat725 AN ION GAP 13 01/09/2019 Comp Metabolic Zib729 GL UCOSE 97 mg/dL 01/09/2019 Comp Metabolic Gxq981 Cr eat 0.7 mg/dL 01/09/2019 Comp Metabolic Xhs021 eG FR 90 ml/min/1.73m2 01/09 Comp Metabolic Bzk080 BUN 18 mg/dL 01/09/2019 Comp Metabolic Cua796 B/ C Ratio 27.3 Ratio 01/09/2019 Comp Metabolic Lfp724 CA LCIUM 9.0 mg/dL 01/09/2019 Comp Metabolic Nmb004 AL K PHOS 57 U/L 01/09/2019 Comp Metabolic Kyh383 T(SGOT) 33 U/L 01/09/2019 Comp Metabolic Xbv320 AL T(SGPT) 25 U/L 01/09/2019 Comp Metabolic Czs572 BI LI T 0.6 mg/dL 01/09/2019 Comp Metabolic Sqa974 AL BUMIN 4.5 g/dL 01/09/2019 Comp Metabolic Nim042 TP RO 6.9 g/dL 01/09/2019 Comp Metabolic Ypa415 GL OB 2.4 g/dL 01/09/2019 Comp Metabolic Fgi862 A/ G Ratio 1.9 Ratio 01/09/2019 Comp Metabolic Cyz581 Os mo 270 mOsmo 01/09/2019 Lipid Ord30 CHOL 178 mg/dL 01/09/2019 Lipid Ord30 HDL 76.0 mg/dl 01/09/2019 Lipid Ord30 TRIG 73 mg/dL 01/09/2019 Lipid Ord30 LDL 87 mg/dL 01/09/2019 Lipid Ord30 C/HDL 2.3 Ratio 01/09/2019 B12 Lfe756 B12 >1500.00 pg/ml 01/09/2019 Tsh Ord6 TSH [...] 93.2 fl 01/09/2019 Cbc With Differential Ord2 [place]% 7.9 % 01/09/2019 Cbc With Differential Ord2 [...] 0.63 K/ul 01/09/2019 Cbc With Differential Ord2 [place] ABS# 0.5 K/ul 01/09/2019 Cbc With Differential Ord2 Eos ABS# 0.1 K/ul 01/09/2019 Cbc With Differential Ord2 Baso ABS# 0.0 K/ul 01/09/2019 Vitamin D 25 Oh [id number] VITAMIN D, 25 HYDROXY 64.38 ng/mL 01/09/2019 [...] 31.4 pg 04/18/2018 Cbc With Differential Ord2 [place]% 9.2 % 04/18/2018 Cbc With Differential Ord2 [...] 0.76 K/ul 04/18/2018 Cbc With Differential Ord2 [place] ABS# 0.5 K/ul 04/18/2018 Cbc With Differential [...] Ord15 CALCIUM 9.1 mg/dL 04/18/2018 Comp Metabolic Omi678 NA 130 mEq/L 12/07/2017 Comp Metabolic Ode111 K 3.6 mEq/L 12/07/2017 Comp Metabolic Woe064 CL 91 mEq/L 12/07/2017 Comp Metabolic Zgd986 CO2 29.0 mEq/L 12/07/2017 Comp Metabolic Xis966 AN ION GAP 14 12/07/2017 Comp Metabolic Zyq249 GL UCOSE 105 mg/dL 12/07/2017 Comp Metabolic Alv787 Cr eat 0.6 mg/dL 12/07/2017 Comp Metabolic Tnu635 eG FR 94 ml/min/1.73m2 12/07 Comp Metabolic Zvh398 BUN 15 mg/dL 12/07/2017 Comp Metabolic Qer719 B/ C Ratio 23.4 Ratio 12/07/2017 Comp Metabolic Ttc239 CA LCIUM 9.3 mg/dL 12/07/2017 Comp Metabolic Mns034 AL K PHOS 62 U/L 12/07/2017 Comp Metabolic Fkx031 T(SGOT) 31 U/L 12/07/2017 Comp Metabolic Ood122 AL T(SGPT) 22 U/L 12/07/2017 Comp Metabolic Zcz244 BI LI T 0.4 mg/dL 12/07/2017 Comp Metabolic Gnp415 AL BUMIN 4.3 g/dL 12/07/2017 Comp Metabolic Qom727 TP RO 6.5 g/dL 12/07/2017 Comp Metabolic Ybu701 GL OB 2.2 g/dL 12/07/2017 Comp Metabolic Dwy002 A/ G Ratio 2.0 Ratio 12/07/2017 Comp Metabolic Whj379 Os mo 262 mOsmo 12/07/2017 Cbc With [...] 31.0 pg 12/07/2017 Cbc With Differential Ord2 [place]% 10.4 % 12/07/2017 Cbc With Differential Ord2 [...] 0.57 K/ul 12/07/2017 Cbc With Differential Ord2 [place] ABS# 0.5 K/ul 12/07/2017 Cbc With Differential [...] 32.3 pg 06/21/2017 Cbc With Differential Ord2 [place]% 10.1 % 06/21/2017 Cbc With Differential Ord2 [...] 0.65 K/ul 06/21/2017 Cbc With Differential Ord2 [place] ABS# 0.5 K/ul 06/21/2017 Cbc With Differential Ord2 Eos ABS# 0.2 K/ul 06/21/2017 Cbc With Differential Ord2 Baso ABS# 0.0 K/ul 06/21/2017 Comp Metabolic Gzt419 NA 133 mEq/L 06/21/2017 Comp Metabolic Bwf642 K 4.0 mEq/L 06/21/2017 Comp Metabolic Uaz406 CL 94 mEq/L 06/21/2017 Comp Metabolic Ygd724 CO2 25.0 mEq/L 06/21/2017 Comp Metabolic Wvp954 AN ION GAP 18 06/21/2017 Comp Metabolic Kxq532 GL UCOSE 88 mg/dL 06/21/2017 Comp Metabolic Wwj798 Cr eat 0.6 mg/dL 06/21/2017 Comp Metabolic Faq404 eG FR 94 ml/min/1.73m2 06/21 Comp Metabolic Egg281 BUN 16 mg/dL 06/21/2017 Comp Metabolic Lnp878 B/ C Ratio 25.0 Ratio 06/21/2017 Comp Metabolic Lcl604 CA LCIUM 9.1 mg/dL 06/21/2017 Comp Metabolic Prj163 AL K PHOS 65 U/L 06/21/2017 Comp Metabolic Woq496 T(SGOT) 31 U/L 06/21/2017 Comp Metabolic Xkw775 AL T(SGPT) 20 U/L 06/21/2017 Comp Metabolic Idd059 BI LI T 0.5 mg/dL 06/21/2017 Comp Metabolic Wfn259 AL BUMIN 4.3 g/dL 06/21/2017 Comp Metabolic Paw124 TP RO 6.6 g/dL 06/21/2017 Comp Metabolic Mhg697 GL OB 2.3 g/dL 06/21/2017 Comp Metabolic Hqa860 A/ G Ratio 1.8 Ratio 06/21/2017 Comp Metabolic Lzy028 Os mo 267 mOsmo 06/21/2017 Lipid Ord30 CHOL 188 mg/dL 06/21/2017 Lipid Ord30 HDL 77.0 mg/dl 06/21/2017 Lipid Ord30 TRIG 66 mg/dL 06/21/2017 Lipid Ord30 LDL 98 mg/dL 06/21/2017 Lipid Ord30 C/HDL 2.4 Ratio 06/21/2017 Tsh Ord6 hTSH II 1.32 uIU/mL 06/21/2017 Comp Metabolic Mdo003 NA 135 mEq/L 02/09/2017 Comp Metabolic Pin825 K 4.0 mEq/L 02/09/2017 Comp Metabolic Ojd752 CL 96 mEq/L 02/09/2017 Comp Metabolic Ajw779 CO2 28.0 mEq/L 02/09/2017 Comp Metabolic Sur823 AN ION GAP 15 02/09/2017 Comp Metabolic Qwd242 GL UCOSE 101 mg/dL 02/09/2017 Comp Metabolic Ssy327 Cr eat 0.7 mg/dL 02/09/2017 Comp Metabolic Ldh612 eG FR 83 ml/min/1.73m2 02/09 Comp Metabolic Rjz708 BUN 17 mg/dL 02/09/2017 Comp Metabolic Mpy404 B/ C Ratio 23.9 Ratio 02/09/2017 Comp Metabolic Bro953 CA LCIUM 9.3 mg/dL 02/09/2017 Comp Metabolic Taj325 AL K PHOS 51 U/L 02/09/2017 Comp Metabolic Rvz162 T(SGOT) 33 U/L 02/09/2017 Comp Metabolic Sbm659 AL T(SGPT) 21 U/L 02/09/2017 Comp Metabolic Vbu039 BI LI T 0.6 mg/dL 02/09/2017 Comp Metabolic Ljf110 AL BUMIN 4.3 g/dL 02/09/2017 Comp Metabolic Jbr197 TP RO 6.9 g/dL 02/09/2017 Comp Metabolic Bqj562 GL OB 2.6 g/dL 02/09/2017 Comp Metabolic Vjz407 A/ G Ratio 1.7 Ratio 02/09/2017 Comp Metabolic Nlr807 Os mo 272 mOsmo 02/09/2017 Lipid Ord30 [...] 31.8 pg 02/09/2017 Cbc With Differential Ord2 [place]% 11.3 % 02/09/2017 Cbc With Differential Ord2 [...] 0.77 K/ul 02/09/2017 Cbc With Differential Ord2 [place] ABS# 0.6 K/ul 02/09/2017 Cbc With Differential [...] 31.5 pg 03/29/2016 Cbc With Differential Ord2 [place]% 9.5 % 03/29/2016 Cbc With Differential Ord2 [...] 0.60 K/ul 03/29/2016 Cbc With Differential Ord2 [place] ABS# 0.4 K/ul 03/29/2016 Cbc With Differential Ord2 Eos ABS# 0.1 K/ul 03/29/2016 Cbc With Differential Ord2 Baso ABS# 0.0 K/ul 03/29/2016 Comp Metabolic Mwn744 NA 135 mEq/L 03/29/2016 Comp Metabolic Hgn295 K 3.7 mEq/L 03/29/2016 Comp Metabolic Udl270 CL 96 mEq/L 03/29/2016 Comp Metabolic Cpx139 CO2 30.0 mEq/L 03/29/2016 Comp Metabolic Xaf316 AN ION GAP 13 03/29/2016 Comp Metabolic Jvz846 GL UCOSE 102 mg/dL 03/29/2016 Comp Metabolic Lkp098 Cr eat 0.6 mg/dL 03/29/2016 Comp Metabolic Ipf473 eG FR 94 ml/min/1.73m2 03/29 Comp Metabolic Oqb458 BUN 15 mg/dL 03/29/2016 Comp Metabolic Xrt333 B/ C Ratio 23.4 Ratio 03/29/2016 Comp Metabolic Ocw818 CA LCIUM 9.1 mg/dL 03/29/2016 Comp Metabolic Kin003 AL K PHOS 70 U/L 03/29/2016 Comp Metabolic Gdd710 T(SGOT) 35 U/L 03/29/2016 Comp Metabolic Nsx328 AL T(SGPT) 27 U/L 03/29/2016 Comp Metabolic Mgl777 BI LI T 0.5 mg/dL 03/29/2016 Comp Metabolic Qhd554 AL BUMIN 4.2 g/dL 03/29/2016 Comp Metabolic Yti979 TP RO 6.6 g/dL 03/29/2016 Comp Metabolic Gmu490 GL OB 2.4 g/dL 03/29/2016 Comp Metabolic Hnd097 A/ G Ratio 1.7 Ratio 03/29/2016 Comp Metabolic Ctn249 Os mo 271 mOsmo 03/29/2016 Tsh Ord6 hTSH II 1.17 uIU/mL 03/29/2016 B12 Cpi930 B12 838.00 pg/ml 09/02/2015 Tsh Ord6 hTSH [...] Ord2 RDW 15.1 % 09/02/2015 Comp Metabolic Gqb693 NA 135 mEq/L 09/02/2015 Comp Metabolic Cdu256 K 3.4 mEq/L 09/02/2015 Comp Metabolic Sea379 CL 95 mEq/L 09/02/2015 Comp Metabolic Awn967 CO2 27.0 mEq/L 09/02/2015 Comp Metabolic Wgv373 AN ION GAP 16 09/02/2015 Comp Metabolic Nqz996 GL UCOSE 94 mg/dL 09/02/2015 Comp Metabolic Wld556 Cr eat 0.7 mg/dL 09/02/2015 Comp Metabolic Atu113 eG FR 87 ml/min/1.73m2 09/02 Comp Metabolic Ryi151 BUN 18 mg/dL 09/02/2015 Comp Metabolic Sgo015 B/ C Ratio 26.1 Ratio 09/02/2015 Comp Metabolic Bog847 CA LCIUM 9.0 mg/dL 09/02/2015 Comp Metabolic Jyl908 AL K PHOS 67 U/L 09/02/2015 Comp Metabolic Mbw358 T(SGOT) 30 U/L 09/02/2015 Comp Metabolic Fkb144 AL T(SGPT) 21 U/L 09/02/2015 Comp Metabolic Xbm136 BI LI T 0.6 mg/dL 09/02/2015 Comp Metabolic Gnw883 AL BUMIN 4.3 g/dL 09/02/2015 Comp Metabolic Oha184 TP RO 6.8 g/dL 09/02/2015 Comp Metabolic Zqs701 GL OB 2.5 g/dL 09/02/2015 Comp Metabolic Uhv220 A/ G Ratio 1.7 Ratio 09/02/2015 Comp Metabolic Cqb307 Os mo 272 mOsmo 09/02/2015 Lipid Ord30 [...] pain 01/01/2018 Neurologic No syncope Psychiatric anxiety 05/2018 Musculoskeletal shoulder pain 01/01/2018 Constitutional No [...] Procedure Codes Date TRIM SKIN LESION CPT-4: 55307 01/09/2019 TRIM SKIN LESIONS 2 TO 4 CPT-4: 20181 01/09/2019 ADMIN INFLUENZA VIRU S VAC CPT-4: G0008 06/21/2018 FLU VACC PRSV FREE I NC ANTIG CPT-4: 58660 06/21/2018 ADMIN INFLUENZA VIRU S VAC CPT-4: G0008 06/21/2017 FLU VACC PRSV FREE I NC ANTIG CPT-4: 78135 06/21/2017 ADMIN INFLUENZA VIRU S VAC CPT-4: G0008 06/24/2016 FLU VACC 4 CRISTINE 3 YRS PLUS IM Formatting Model/CDA Sections, Assigned to/Carmen Solis SNOMED CT: [id number] CPT-4: 74074Vwohicg 06/24/2016 ADMIN INFLUENZA VIRU S VAC CPT-4: G0008 06/19/2015 FLU VACC 4 CRISTINE 3 YRS PLUS IM Formatting Model/CDA Sections, Assigned to/WillCarmen SNOMED CT: [id number] CPT-4: 87280Pwtnvaf 06/19/2015 Vital Signs Date Vital 01/09/2019 Blood Pressure 1: 132/62 Code: 8480-6 BMI: 15.8 Code: 80386-2 Heart Rate 1: 69 bpm Height: 5'2" SpO2: 98% Weight: 88 lbs 12/31/2018 Blood Pressure 1: 140/52 Code: 8480-6 BMI: 16.2 Code: 89796-4 Heart Rate 1: 70 bpm Height: 5'2" SpO2: 95% Weight: 90 lbs 09/05/2018 Blood Pressure 1: 138/74 Code: 8480-6 BMI: 16.1 Code: 07273-4 Heart Rate 1: 69 bpm Height: 5'2" SpO2: 98% Weight: 89 lbs 8 oz 08/15/2018 Blood Pressure 1: 142/72 Code: 8480-6 BMI: 16.3 Code: 19277-4 Heart Rate 1: 66 bpm Height: 5'2" SpO2: 99% Weight: 90 lbs 8 oz 05/29/2018 Blood Pressure 1: 140/70 Code: 8480-6 BMI: 16.2 Code: 89048-8 Heart Rate 1: 67 bpm Height: 5'2" SpO2: 99% Weight: 90 lbs 05/14/2018 Blood Pressure 1: 146/68 Code: 8480-6 BMI: 16.0 Code: 22291-9 Heart Rate 1: 70 bpm Height: 5'2" SpO2: 98% Weight: 89 lbs 04/18/2018 Blood Pressure 1: 126/68 Code: 8480-6 BMI: 15.7 Code: 36647-7 Heart Rate 1: 81 bpm Height: 5'2" SpO2: 99% Weight: 87 lbs 01/22/2018 Blood Pressure 1: 136/76 Code: 8480-6 BMI: 15.8 Code: 15404-6 Heart Rate 1: 73 bpm Height: 5'2" SpO2: 99% Weight: 88 lbs 01/01/2018 Blood Pressure 1: 148/76 Code: 8480-6 BMI: 15.8 Code: 97825-8 Heart Rate 1: 74 bpm Height: 5'2" SpO2: 98% Weight: 88 lbs 12/12/2017 Blood Pressure 1: 140/72 Code: 8480-6 BMI: 15.8 Code: 54230-8 Heart Rate 1: 65 bpm Height: 5'2" SpO2: 96% Weight: 88 lbs 09/13/2017 Blood Pressure 1: 138/70 Code: 8480-6 BMI: 15.9 Code: 16890-0 Heart Rate 1: 74 bpm Height: 5'2" SpO2: 99% Weight: 88 lbs 8 oz 06/21/2017 Blood Pressure 1: 122/50 Code: 8480-6 BMI: 15.3 Code: 43762-3 Heart Rate 1: 69 bpm Height: 5'2" SpO2: 99% Weight: 85 lbs 05/25/2017 Blood Pressure 1: 138/72 Code: 8480-6 Heart Rate 1: 77 bpm Height: 5'2" SpO2: 98% Weight: 05/16/2017 Blood Pressure 1: 136/78 Code: 8480-6 Heart Rate 1: 86 bpm Height: 5'2" SpO2: 98% Weight: 02/15/2017 Blood Pressure 1: 144/78 Code: 8480-6 BMI: 15.4 Code: 47645-7 Heart Rate 1: 65 bpm Height: 5'2" SpO2: 98% Weight: 85 lbs 8 oz 11/22/2016 Blood Pressure 1: 140/58 Code: 8480-6 BMI: 14.8 Code: 82315-5 Heart Rate 1: 79 bpm Height: 5'2" SpO2: 99% Weight: 82 lbs 09/15/2016 BMI: 16.0 Code: 81713-4 Height: 5'2" Weight: 89 lbs 09/07/2016 Blood Pressure 1: 130/62 Code: 8480-6 BMI: 16.2 Code: 06743-8 Heart Rate 1: 71 bpm Height: 5'2" SpO2: 98% Weight: 90 lbs 07/06/2016 Blood Pressure 1: 144/76 Code: 8480-6 BMI: 15.8 Code: 62245-5 Heart Rate 1: 78 bpm Height: 5'2" SpO2: 99% Weight: 88 lbs 04/06/2016 Blood Pressure 1: 148/58 Code: 8480-6 BMI: 16.2 Code: 21056-2 Heart Rate 1: 64 bpm Height: 5'2" SpO2: 97% Weight: 90 lbs 01/06/2016 Blood Pressure 1: 146/72 Code: 8480-6 BMI: 16.6 Code: 63806-6 Heart Rate 1: 62 bpm Height: 5'2" SpO2: 99% Weight: 92 lbs 09/02/2015 Blood Pressure 1: 132/70 Code: 8480-6 BMI: 16.6 Code: 28597-1 Heart Rate 1: 77 bpm Height: 5'2" SpO2: 98% Weight: 92 lbs 06/15/2015 Blood Pressure 1: 144/60 Code: 8480-6 BMI: 16.7 Code: 10916-0 Heart Rate 1: 66 bpm Height: 5'2" SpO2: 97% Weight: 93 lbs 03/04/2015 Blood Pressure 1: 120/80 Code: 8480-6 BMI: 15.8 Code: 43492-7 Heart Rate 1: 74 bpm Height: 5'2" [...] shoulder 01/22/2018 None shoulder pain Quality ac [place] 01/22/2018 None shoulder pain Quality co nstant [...] nstant 01/01/2018 None shoulder pain Quality ac [place] 01/01/2018 None shoulder pain Quality wo rsening [...] Factors diet 12/12/2017 None hypertension Quality [place] [facility] hypertension 09/13/2017 None hypertension Onset and Resolution [...] chr onic 07/06/2016 None hypertension Quality [place] barrgia hypertension 07/06/2016 None hypertension Onset and Resolution [...] Encounters Encounter Performer Loca tion Codes Date ([id number]) [id number] EST. P ATIENT, LEVEL IV Diagnosis: Essential [...] Corns and callosities[ICD10: L84] Anum Bradshaw MD, [facility] CPT-4: 75371 01/09/2019 [id number] EST. PATIENT, LEVEL IV Diagnosis: Dysuria[ICD10: R30.0] Kala Bradshaw MD, [facility] CPT-4: 77134 12/31/2018 ([id number]) [id number] EST. P ATIENT, LEVEL IV Diagnosis: Essential (primary) hypertension[ICD10: I10] Diagnosis: Rash and other nonspecific skin eruption[ICD10: R21] Anum Bradshaw MD, [facility] CPT-4: 05070 09/05/2018 ([id number]) [id number] EST. P ATIENT, LEVEL IV Diagnosis: Essential (primary) hypertension[ICD10: I10] Diagnosis: Tinea barbae and tinea capitis[ICD10: B35.0] Diagnosis: Unsteadiness on feet[ICD10: R26.81] Diagnosis: Weakness[ICD10: R53.1] Anum Bradshaw MD, [facility] CPT-4: 86060 08/15/2018 ([id number]) 92839 EST. P ATIENT, LEVEL III Diagnosis: Rash and other nonspecific skin eruption[ICD10: R21] Diagnosis: Other allergic rhinitis[ICD10: J30.89] Diagnosis: Gastro-esophageal reflux disease without esophagitis[ICD10: K21.9] Rosalinda Bradshaw MD, [facility] CPT-4: 46587 05/29/2018 ([id number]) 89647 EST. P ATIENT, LEVEL III Diagnosis: Rash and other nonspecific skin eruption[ICD10: R21] Rosalinda Bradshaw MD, [facility] CPT-4: 90095 05/14/2018 ([id number]) 80376 EST. P ATIENT, LEVEL IV Diagnosis: Essential (primary) hypertension[ICD10: I10] Diagnosis: Underweight[ICD10: R63.6] Diagnosis: Mixed hyperlipidemia[ICD10: E78.2] Anum Bradshaw MD, [facility] CPT- 4: 36462 04/18/2018 ([id number]) 15491 EST. P ATIENT, LEVEL III Diagnosis: Bicipital tendinitis, left shoulder[ICD10: M75.22] Anum Bradshaw MD, [facility] CPT-4: 35855 01/22/2018 ([id number]) 69653 EST. P ATIENT, LEVEL III Diagnosis: Pain in right shoulder[ICD10: M25.511] Diagnosis: Bicipital tendinitis, right shoulder[ICD10: M75.21] Anum Bradshaw MD, [facility] CPT-4: 47341 01/01/2018 ([id number]) 52572 EST. P ATIENT, LEVEL IV Diagnosis: Essential (primary) hypertension[ICD10: I10] Diagnosis: Underweight[ICD10: R63.6] Diagnosis: Mixed hyperlipidemia[ICD10: E78.2] Diagnosis: Actinic keratosis[ICD10: L57.0] Anum Bradshaw MD, [facility] CPT-4: 89426 12/12/2017 ([id number]) 63019 EST. P ATIENT, LEVEL III Diagnosis: Essential (primary) hypertension[ICD10: I10] Diagnosis: Fracture of unspecified part of neck of left femur, subsequent encounter for closed fracture with routine healing[ICD10: S72.002D] Diagnosis: Underweight[ICD10: R63.6] Anum Bradshaw MD, [facility] CPT-4: 11099 09/13/2017 ([id number]) 95313 EST. P ATIENT, LEVEL IV Diagnosis: Mixed hyperlipidemia[ICD10: E78.2] Diagnosis: Essential (primary) hypertension[ICD10: I10] Diagnosis: Vitamin B12 deficiency anemia due to intrinsic factor deficiency[ICD10: D51.0] Diagnosis: Gastro-esophageal reflux disease with esophagitis[ICD10: K21.0] Diagnosis: Age-related osteoporosis without current pathological fracture[ICD10: M81.0] Diagnosis: Encounter for immunization[ICD10: Z23] Anum Bradshaw MD, [facility] CPT-4: 70587 06/21/2017 ([id number]) 64793 EST. P ATIENT, LEVEL III Diagnosis: Fracture of unspecified part of neck of left femur, subsequent encounter for closed fracture with routine healing[ICD10: S72.002D] Diagnosis: Underweight[ICD10: R63.6] Diagnosis: Gastro-esophageal reflux disease with esophagitis[ICD10: K21.0] Anum Bradshaw MD, [facility] CPT-4: 88479 05/25/2017 ([id number]) 40517 EST. P ATIENT, LEVEL IV Diagnosis: Essential (primary) hypertension[ICD10: I10] Diagnosis: Fracture of unspecified part of neck of left femur, subsequent encounter for closed fracture with routine healing[ICD10: S72.002D] Diagnosis: Generalized anxiety disorder[ICD10: F41.1] Anum Bradshaw MD, [facility] CPT-4: 61273 05/16/2017 ([id number]) 88480 EST. P ATIENT, LEVEL IV Diagnosis: Essential (primary) hypertension[ICD10: I10] Diagnosis: Mixed hyperlipidemia[ICD10: E78.2] Diagnosis: Generalized anxiety disorder[ICD10: F41.1] Anum Bradshaw MD, [facility] CPT-4: 78513 02/15/2017 ([id number]) 23002 EST. P ATIENT, LEVEL IV Diagnosis: Mixed hyperlipidemia[ICD10: E78.2] Diagnosis: Generalized anxiety disorder[ICD10: F41.1] Diagnosis: Essential (primary) hypertension[ICD10: I10] Diagnosis: Gastro-esophageal reflux disease with esophagitis[ICD10: K21.0] Anum Bradshaw MD, [facility] CPT-4: 54094 11/22/2016 [id number] EST. PATIENT, LEVEL III Diagnosis: Inflamed seborrheic keratosis[ICD10: L82.0] Kala Bradshaw MD, [facility] CPT-4: 31199 09/15/2016 ([id number]) 07500 EST. P ATIENT, LEVEL IV Diagnosis: Essential (primary) hypertension[ICD10: I10] Diagnosis: Mixed hyperlipidemia[ICD10: E78.2] Diagnosis: Generalized anxiety disorder[ICD10: F41.1] Anum Bradshaw MD, [facility] CPT-4: 36999 09/07/2016 ([id number]) 85387 EST. P ATIENT, LEVEL IV Diagnosis: Essential (primary) hypertension[ICD10: I10] Diagnosis: Frequency of micturition[ICD10: R35.0] Diagnosis: Age-related osteoporosis without current pathological fracture[ICD10: M81.0] Anum Bradshaw MD, [facility] CPT-4: 80414 07/06/2016 ([id number]) 28683 EST. P ATIENT, LEVEL IV Diagnosis: Essential (primary) hypertension[ICD10: I10] Diagnosis: Mixed hyperlipidemia[ICD10: E78.2] Diagnosis: Gastro-esophageal reflux disease with esophagitis[ICD10: K21.0] Anum Bradshaw MD, [facility] CPT-4: 54314 04/06/2016 69398 EST. PATIENT, LEVEL IV Diagnosis: Essential (primary) hypertension[ICD10: I10] Diagnosis: Gastro-esophageal reflux disease with esophagitis[ICD10: K21.0] Kala Bradshaw MD, [facility] CPT-4: 75097 01/06/2016 ([id number]) 48030 EST. P ATIENT, LEVEL IV Diagnosis: Essential (primary) hypertension[ICD10: I10] Diagnosis: Gastro-esophageal reflux disease with esophagitis[ICD10: K21.0] Diagnosis: Other dietary vitamin B12 deficiency anemia[ICD10: D51.3] Diagnosis: Vitamin B12 deficiency anemia due to intrinsic factor deficiency[ICD10: D51.0] Diagnosis: Occlusion and stenosis of unspecified carotid artery[ICD10: I65.29] Anum Bradshaw MD, [facility] CPT-4: 63567 09/02/2015 ([id number]) 21213 EST. [facility], [facility] Diagnosis: Carpal tunnel syndrome[ICD9: 354.0] Diagnosis: Inflamed seborrheic keratosis[ICD9: 702.11] Rosalinda Bradshaw MD, [facility] CPT-4: 31783 06/15/2015 ([id number]) OFFICE VISI T [facility] - LEVEL 4 Diagnosis: ESSENTIAL HYPERTENSION[ICD9: 401.9] Diagnosis: ESOPHAGEAL REFLUX[ICD9: 530.81] Diagnosis: HYPERLIPIDEMIA[ICD9: 272.4] Anum Bradshaw MD, [facility] CPT-4: 57566 03/04/2015 Plan of Care Planned Activity Notes C odes Status Date Visit Plan: Hypertension - well con trolled - continue with current medications, continue with no added salt diet. Pt has been encouraged to exercise daily. The pt has been advised to call the office if there are any acute concerns about change in blood pressure readings at home. [place] on toe - debrided with scalpel today. [...] - need to increase caloric intake. 01/09/2019 Patient Education: Patient Medication Summary Completed 01/09/2019 Patient Education: Hypertension Completed 01/09/2019 Patient Education: Cholesterol Management Completed 01/09/2019 Visit Plan: UTI - pt with positive urinalysis - culture sent if appropriate. Antibiotic electronically prescribed to pt's pharmacy of choice. Pt to call if symptoms do not improve. 12/31/2018 [phone] ([facility] Complex 12/31/2018 Patient Education: [...] betamethasone. 09/05/2018 Appointment: [facility] Bradshaw [phone] (15 min) Moderate 09/05/2018 Patient Education: Patient [...] - I have recommended a referral to [facility] for physical therapy balance training. Tinea Capitis - rx for ketoconazole cream and call if not improving. 08/15/2018 Appointment: Anum Bradshaw WPtel: [phone] [facility] (15 min) Moderate 08/15/2018 Patient Education: Patient Medication Summary Completed 08/15/2018 Patient Education: Hypertension Completed 08/15/2018 Appointment: Anum Bradshaw WPtel: [facility] (15 min) Moderate 2018 Appointment: [...] ketoconazole shampoo 05/29/2018 Appointment: Rosalinda Bermudez WPtel: [phone] [place] (30 min) Complex 05/29/2018 Patient Education: [...] needed 05/14/2018 Appointment: [phone] [phone] [place] (30 min) Complex 05/14/2018 Patient Education: [...] to medications. 04/18/2018 Appointment: Anum Bradshaw WPtel: [facility] (15 min) Moderate 04/18/2018 Patient Education: Patient Medication Summary Completed 04/18/2018 Appointment: Injection 03/08/2018 Visit Plan: Left shoulder pain - bi cep tendonitis - continue with physical therapy at [facility]. Use voltaren gel on left shoulder now - continue with therapy on right shoulder. 01/22/2018 Appointment: Anum Bradshaw WPtel: [phone] [facility] [place] (15 min) Moderate 01/22/2018 Patient Education: [...] tendonitis - referral to physical therapy at [facility] 01/01/2018 Appointment: Anum Bradshaw WPtel: [phone] [facility] [place] (15 min) Moderate 01/01/2018 Patient Education: [...] weeks 12/12/2017 Appointment: Anum Bradshaw WPtel: [phone] [facility] (15 min) Moderate 12/12/2017 Patient Education: Patient [...] healing. 09/13/2017 Appointment: Anum Bradshaw WPtel: [phone] [facility] (15 min) Moderate 09/13/2017 Patient Education: Patient [...] not improving. 06/21/2017 Appointment: Anum Bradshaw WPtel: [facility] (15 min) Moderate 06/21/2017 Patient Education: Patient Medication Summary Completed 06/21/2017 Visit Plan: Esophageal Reflux - the patient has been taking medication as directed and her symptoms are improved. Hip fracture - continue with supportive care, nonweight bearing. Underweight - increase protein intake, higher calorie diet, use wheelchair to decrease excessive caloric expenditure. 05/25/2017 Appointment: Anum Bradshaw WPtel: [facility] (15 min) Moderate 05/25/2017 Patient [...] medications. 05/16/2017 Appointment: Anum Bradshaw WPtel: [phone] [facility] (15 min) Moderate 05/16/2017 Patient Education: Patient [...] to medications. 02/15/2017 Appointment: Anum Bradshaw WPtel: [facility] (15 min) Moderate 02/15/2017 Patient Education: Patient Medication Summary Completed 02/15/2017 Patient Education: Hypertension Completed 02/15/2017 Care Plan: Referral Order SNOMED-CT : [id number] Pending 02/15/2017 Appointment: Anum Bradshaw WPtel: [phone] [facility] (15 min) Moderate 01/11/2017 Visit [...] current treatment 11/22/2016 Appointment: Anum Bradshaw WPtel: [phone] [facility] [place] (15 min) Moderate 11/22/2016 Patient Education: Patient Medication Summary Completed 11/22/2016 Patient Education: Hypertension Completed 11/22/2016 Appointment: Rosalinda Bermudez WPtel: [phone] [phone] [place] (30 min) Complex 09/16/2016 Visit Plan: [...] 5mg and monitor symptoms. 09/07/2016 Appointment: Anum Bradhsaw WPtel: [facility] [place] (15 min) Moderate 09/07/2016 [...] negative 07/06/2016 Appointment: Anum Bradshaw WPtel: [phone] [facility] (15 min) Moderate 07/06/2016 Patient Education: Patient Medication Summary Completed 07/06/2016 Patient Education: Hypertension Completed 07/06/2016 Appointment: Injection 06/24/2016 Patient Education: Patient Medication Summary Completed 06/24/2016 Visit Plan: Hypertension - well con christian [...] not improving. 04/06/2016 Appointment: Anum Bradshaw WPtel: [phone] [facility] [place] (15 min) Moderate 04/06/2016 Patient Education: [...] 09/02/2015 Care Plan: Referral Order SNOMED-CT : [id number] Ordered 09/02/2015 Appointment: Injection 06/19/2015 Patient Education: [...] not improving. 03/04/2015 Appointment: Anum Bradshaw WPtel: [phone] [facility] [place] (S) New Patient 03/04/2015 Patient Education: [...] tendonitis - referral to physical therapy at [facility] . Hypertension - wel l controlled - continue with current medications, continue with no added salt diet. Pt has been encouraged to exercise daily. The pt has been advised to call the office if there are any acute concerns about change in blood pressure readings at home. Generalized weakness, Gait instability - I have recommended a referral to [facility] for physical therapy balance training. Tinea [...] change in blood pressure readings at home. [place] on toe - debrided with scalpel today. [...]
--- OUTSIDE RECORDS SUMMARY | 2019-12-29 11:19 | XMS REPORT | CCD ---
Author Author Ashley Bradshaw Organization [facility] Address [address] [place] [address] Phone Care Team Providers Care Science Manager Name Role Phone PP Unavailable CCM Unavailable Summary Purpose Interface Exchange Insurance Providers Payer name Policy type / Coverage type Covered republican ID Effective Begin Date Effective End Date WPS Medicare Part B Medicare Part B [id number] Unknown Unknown CIGNA Medicare Part B [id number] Unknown Unknown Family history Father Diagnosis Age At Onset Coronary Artery Disease Unknown Mother Diagnosis Age At Onset Anemia Unknown Skin cancer Unknown Hypertension Unknown Cancer Unknown Breast cancer Unknown Social History Social History Element Codes Description Effective Dates Marital status Unknown M arried Shahram 03/04/2015 Number of children Unknown 3 03/04/[address]: 010730888 Never smoker 03/04/[address]: 505495572 Never drinks alcohol 03/04/2015 Allergies, Adverse Reactions, Alerts Substance Reaction Codes Entered Date Inactivated Date Status NEOSPORIN RxNorm: 007580 01/06/2016 No Inactive Date Active Past Medical History Illness Codes Condition Status Onset Date Resolved Date Dysuria ICD-9: 788.1 ICD-10: R30.0 Active 12/31/2018 Unknown Essential (primary) hypertension ICD-9: 401.9 ICD-10: I10 Active 03/03/2015 Unknown Rash and other nonsp ecific skin [...] ICD-9: 530.81 ICD-10: K21.0 Active 03/03/2015 Unknown Gastro-esophageal re flux disease without esophagitis ICD-9: 530.81 ICD-10: K21.9 Active 05/29/2018 Unknown Other allergic rhinitis ICD-9: 477.8 ICD-10: J30.89 Active 05/29/2018 Unknown Mixed hyperlipidemia ICD-9: 272.2 ICD-10: E78.2 Active 12/12/2017 Unknown Underweight ICD-9: 783.22 ICD-10: R63.6 Active 05/25/2017 Unknown Bicipital tendinitis , left shoulder ICD-9: [...] ICD-9: V54.13 ICD-10: S72.002D Active 05/16/2017 Unknown Age-related osteopor osis without current pathological fracture ICD-9: 733.00 ICD-10: M81.0 Active 07/05/2016 Unknown Mixed hyperlipidemia ICD-9: 272.4 ICD-10: E78.2 Active 03/03/2015 Unknown Vitamin B12 deficien cy anemia due to intrinsic factor deficiency ICD-9: 281.0 ICD-10: D51.0 Active 09/01/2015 Unknown Generalized anxiety disorder ICD-9: 300.02 ICD-10: F41.1 Active 09/06/2016 Unknown Inflamed seborrheic keratosis ICD-9: 702.11 ICD-10: [...] Condition Codes Effectiv e Dates Condition Status Dysuria ICD-9: 788.1 ICD-10: R30.0 12/31/2018 Active Essential (primary) hypertension ICD-9: 401.9 ICD-10: I10 03/03/2015 Active Rash and other nonsp ecific skin [...] esophagitis ICD-9: 530.81 ICD-10: K21.0 03/03/2015 Active Gastro-esophageal re flux disease without esophagitis ICD-9: 530.81 ICD-10: K21.9 05/29/2018 Active Other allergic rhinitis ICD-9: 477.8 ICD-10: J30.89 05/29/2018 Active Mixed hyperlipidemia ICD-9: 272.2 ICD-10: E78.2 12/12/2017 Active Underweight ICD-9: 783.22 ICD-10: R63.6 05/25/2017 Active Bicipital tendinitis , left shoulder ICD-9: [...] healing ICD-9: V54.13 ICD-10: S72.002D 05/16/2017 Active Age-related osteopor osis without current pathological fracture ICD-9: 733.00 ICD-10: M81.0 07/05/2016 Active Mixed hyperlipidemia ICD-9: 272.4 ICD-10: E78.2 03/03/2015 Active Vitamin B12 deficien cy anemia due to intrinsic factor deficiency ICD-9: 281.0 ICD-10: D51.0 09/01/2015 Active Generalized anxiety disorder ICD-9: 300.02 ICD-10: F41.1 09/06/2016 Active Inflamed seborrheic keratosis ICD-9: 702.11 ICD-10: [...] Fill Instructions Keflex 500 mg capsule RxNorm: 889032 1 Capsule(s) PO TID 12/31/2018 01/09/2019 Active Pyridium 200 mg tablet RxNorm: 4507609 1 Tablet(s) PO TID 12/31/2018 01/01/2019 Inactive esomeprazole magnesi um 40 mg capsule,delayed release RxNorm: 148884 Capsule(s) TAKE 1 CAPSULE BY MOUTH DAILY 11/27/2018 02/19/2020 Active wants to pay henry Zantac 150 mg tablet RxNorm: 709750 1 Tablet(s) PO BID 11/02/2018 11/26/2018 Inactive Zantac 150 mg tablet RxNorm: 528648 1 Tablet(s) PO BID 11/02/2018 11/01/2018 Inactive sucralfate 100 mg/mL oral suspension RxNorm: 649135 10 Milliliter(s) per 1 gram PO QID 10/08/2018 10/02/2019 Active diltiazem 30 mg tablet RxNorm: 144507 1 Tablet(s) PO QID 10/08/2018 10/02/2019 Active betamethasone nasir te 0.1 % topical cream RxNorm: 856499 1 Application TOP BID 09/05/2018 11/03/2018 In active ketoconazole 2 % top ical cream RxNorm: 672579 1 Application TOP BID to posterior scalp x 2 weeks or until the skin is healed 08/15/2018 08/28/2018 Inactive triamterene 37.5 mg- hydrochlorothiazide 25 mg tablet RxNorm: 876174 Tablet(s) 1 Tablet(s) PO daily 07/12/2018 01/07/2019 Active PLEASE SEND REFILL REQUESTS ELECTRONICALLY simvastatin 20 mg ta blet RxNorm: 074284 TAKE 1 TABLET BY MOUT H EVERY DAY 07/12/2018 01/07/2019 Ac tive ketoconazole 2 % sha mpoo RxNorm: 312442 1 Application TOP BIW 05/14/2018 No Stop Date Active simvastatin 20 mg ta blet RxNorm: 428259 TAKE 1 TABLET BY MOUT H EVERY DAY 03/01/2018 07/11/2018 In active triamterene 37.5 mg- hydrochlorothiazide 25 mg tablet RxNorm: 122739 Tablet(s) 1 Tablet(s) PO daily 02/06/2018 07/11/2018 Inactive PLEASE SEND REFILL REQUESTS ELECTRONICALLY Voltaren 1 % topical gel RxNorm: 236444 2 Gram(s) TOP TID to shoulders 01/01/2018 04/30/2018 In active sucralfate 100 mg/mL oral suspension RxNorm: 327719 10 Milliliter(s) per 1 gram PO QID 12/12/2017 06/09/2018 Inactive refill 3 month supply- 1gm/10ml simvastatin 20 mg ta blet RxNorm: 229275 TAKE 1 TABLET BY MOUT H EVERY DAY 12/04/2017 02/28/2018 In active escitalopram 5 mg ta blet RxNorm: 409950 1 Tablet(s) PO QPM 10/26/2017 01/18/2019 Active esomeprazole magnesi um 40 mg capsule,delayed release RxNorm: 559598 TAKE 1 CAPSULE BY MOUTH DAILY 10/26/2017 11/01/2018 Inactive mupirocin 2 % topica l ointment RxNorm: 974644 APPLY TO AFFECTED ARE A(S) ONCE DAILY 10/16/2017 11/28/2017 In active diltiazem 30 mg tablet RxNorm: 342784 1 Tablet(s) PO QID 10/09/2017 10/03/2018 Inactive triamterene 37.5 mg- hydrochlorothiazide 25 mg tablet RxNorm: 737106 1 Tablet(s) PO daily 07/28/2017 01/23/2018 Inactive fluticasone 50 mcg/a ctuation nasal spray,suspension RxNorm: 9253074 2 [place] NASAL daily 07/20/2017 01/15/2018 Inactive diltiazem 30 mg tablet RxNorm: 701910 1 Tablet(s) PO QID TAKE 1 TABLET BY MOUT H FOUR TIMES DAILY 07/13/2017 10/08/2017 Inactive simvastatin 20 mg ta blet RxNorm: 358442 TAKE 1 TABLET BY MOUT H EVERY DAY 06/08/2017 12/03/2017 In active Nexium 40 mg capsule ,delayed release RxNorm: 629272 1 Capsule(s) PO daily 05/25/2017 11/27/2017 In active esomeprazole magnesi um 40 mg capsule,delayed release RxNorm: 682744 Capsule(s) TAKE 1 CAPSULE BY MOUTH DAILY 05/17/2017 02/10/2018 Inactive diltiazem 30 mg tablet RxNorm: 779190 Tablet(s) TAKE 1 TABLET BY MOUTH FOUR TI MES DAILY 05/16/2017 07/12/2017 Inactive diltiazem 30 mg tablet RxNorm: 750800 TAKE 1 TABLET BY MOUTH THREE TIMES DAILY 02/09/2017 05/15/2017 In active Zofran ODT 4 mg disi ntegrating tablet RxNorm: 770935 1 Tablet(s) PO Q6 as needed 11/16/2016 11/22/2016 In active Protonix 40 mg table t,delayed release RxNorm: 876513 1 Tablet(s) PO daily 11/16/2016 12/15/2016 In active Protonix 40 mg table t,delayed release RxNorm: 966934 1 Tablet(s) PO daily 11/16/2016 11/15/2016 In active Zofran ODT 4 mg disi ntegrating tablet RxNorm: 021046 1 Tablet(s) PO Q6 as needed 11/16/2016 11/15/2016 In active escitalopram 5 mg ta blet RxNorm: 580263 1 Tablet(s) PO QPM 10/28/2016 10/22/2017 Inactive escitalopram 5 mg ta blet RxNorm: 344565 1 Tablet(s) PO QPM 10/05/2016 10/27/2016 Inactive mupirocin 2 % topica l ointment RxNorm: 828026 1 Application TOP yao ly APPLY TO AFFECTED AREA(S) TOPICALLY DAILY 09/07/2016 11/05/2016 Inactive Efudex 5 % topical c ream RxNorm: 413764 1 TOP BID 09/07/2016 09/16/2016 Inactive escitalopram 5 mg ta blet RxNorm: 798968 1 Tablet(s) PO QPM 09/07/2016 10/04/2016 Inactive sucralfate 100 mg/mL oral suspension RxNorm: 079594 10 Milliliter(s) per 1 gram PO QID 08/03/2016 07/28/2017 Inactive refill 3 month supply- 1gm/10ml clorazepate dipotass ium 3.75 mg tablet RxNorm: 543398 1 Tablet(s) PO QHS as needed insomnia 07/06/2016 08/14/2018 Inactive triamterene 37.5 mg- hydrochlorothiazide 25 mg tablet RxNorm: 883613 1 Tablet(s) PO daily 06/29/2016 06/23/2017 Inactive Nexium 40 mg capsule ,delayed release RxNorm: 641112 1 Capsule(s) PO daily 06/29/2016 07/05/2016 In active Bactroban 2 % topica l ointment RxNorm: 878041 APPLY TO AFFECTED ARE A(S) TOPICALLY DAILY 06/22/2016 09/06/2016 Inactive esomeprazole magnesi um 40 mg capsule,delayed release RxNorm: 091806 TAKE 1 CAPSULE BY MOUTH DAILY 06/13/2016 03/09/2017 Inactive simvastatin 20 mg ta blet RxNorm: 457450 1 Tablet(s) PO daily 05/16/2016 06/07/2017 Inactive simvastatin 20 mg ta blet RxNorm: 197287 1 Tablet(s) PO daily 05/12/2016 05/15/2016 Inactive famotidine 40 mg tablet RxNorm: 983541 TAKE 1 TABLET BY MOUTH DAILY 05/05/2016 01/29/2017 Inactive Bactroban 2 % topica l ointment RxNorm: 450104 APPLY TO AFFECTED ARE A(S) TOPICALLY DAILY 04/25/2016 05/01/2016 Inactive fluticasone 50 mcg/a ctuation nasal spray,suspension RxNorm: 6920345 2 [place] NASAL daily 03/23/2016 09/18/2016 Inactive fluticasone 50 mcg/a ctuation nasal spray,suspension RxNorm: 063695 2 [place] NASAL daily 03/07/2016 03/22/2016 Inactive Bactroban 2 % topica l ointment RxNorm: 167163 APPLY TO AFFECTED ARE A(S) TOPICALLY DAILY 02/29/2016 03/06/2016 Inactive diltiazem 30 mg tablet RxNorm: 048871 1 Tablet(s) PO TID 02/18/2016 02/08/2017 Inactive Bactroban 2 % topica l ointment RxNorm: 556808 1 Application TOP 01/08/2016 02/28/2016 Inactive clorazepate dipotass ium 3.75 mg tablet RxNorm: 242368 1 Tablet(s) PO daily 12/14/2015 06/10/2016 In active fluticasone 50 mcg/a ctuation nasal spray,suspension RxNorm: 313007 2 [place] NASAL daily 12/14/2015 02/11/2016 Inactive diltiazem 30 mg tablet RxNorm: 046010 1 Tablet(s) PO TID 09/03/2015 02/17/2016 Inactive simvastatin 20 mg ta blet RxNorm: 553878 1 Tablet(s) PO daily 08/24/2015 05/11/2016 Inactive triamterene 37.5 mg- hydrochlorothiazide 25 mg tablet RxNorm: 706217 1 Tablet(s) PO daily 07/09/2015 06/28/2016 Inactive clorazepate dipotass ium 15 mg tablet RxNorm: 182338 1 Tablet(s) PO daily 07/06/2015 07/06/2015 In active clorazepate dipotass ium 3.75 mg tablet RxNorm: 769516 1 Tablet(s) PO daily 07/06/2015 12/13/2015 In active esomeprazole magnesi um 40 mg capsule,delayed release RxNorm: 240085 1 Capsule(s) PO daily 06/26/2015 06/12/2016 Inactive famotidine 40 mg tablet RxNorm: 094802 1 Tablet(s) PO daily 06/26/2015 05/04/2016 Inactive diltiazem 30 mg tablet RxNorm: 746439 1 Tablet(s) PO TID 06/09/2015 09/02/2015 Inactive sucralfate 100 mg/mL oral suspension RxNorm: 878557 10 Milliliter(s) per 1 gram PO QID 04/28/2015 04/21/2016 Inactive refill 3 month supply- 1gm/10ml member I d [id number] sucralfate 100 mg/mL oral suspension RxNorm: 500884 10 Milliliter(s) per 1 gram PO QID 04/27/2015 04/27/2015 Inactive refill 3 month supply diltiazem 30 mg tablet RxNorm: 974317 1 Tablet(s) PO TID 02/18/2015 02/17/2015 Inactive diltiazem 30 mg tablet RxNorm: 983565 1 Tablet(s) PO TID 02/18/2015 05/18/2015 Inactive Vitamin D3 2,000 uni t tablet RxNorm: 863474 Tablet(s) PO daily No Start Date Active Nidia ODT oral RxNorm: 339561 oral No Start Date Active PreserVision Lutein oral RxNorm: [address] art Date Active Calcium 500 + D oral RxNorm: 230125 oral No Start Date Active ketoconazole 2 % [facility] mpoo RxNorm: 027117 1 TOP daily No Start Date Active ketoconazole 2 % sha mpoo RxNorm: 153976 TOP No St art Date Active melatonin 5 mg tablet RxNorm: 827236 Tablet(s) PO QHS as needed No Start Date Active vitamin B6-vitamin E -magnesium oral RxNorm: 650727 oral No S tart Date Active famotidine 40 mg tablet RxNorm: 507063 1 Tablet(s) PO daily No Start Date 06/25/2015 Inactive clorazepate dipotass ium 3.75 mg tablet RxNorm: 265682 1 Tablet(s) PO daily No Start Date 07/05/2015 Inactive Bactroban 2 % topica l ointment RxNorm: 531848 1 Application TOP No Start Date 01/07/2016 Inactive Carafate 1 gram tablet RxNorm: 388754 1 Tablet(s) PO QID No Start Date 04/26/2015 Inactive Zyrtec 10 mg tablet RxNorm: 2943112 1 Tablet(s) PO daily No Start Date 08/14/2018 Inactive esomeprazole magnesi um 40 mg capsule,delayed release RxNorm: 932297 Capsule(s) PO daily No Start Date 06/25/2015 Inactive fluticasone 50 mcg/a ctuation nasal spray,suspension RxNorm: 957431 2 [place] NASAL daily No Start Date 12/13/2015 Inactive Nexium 40 mg capsule ,delayed release RxNorm: 082111 1 Capsule(s) PO daily No Start Date 06/28/2016 Inactive triamterene 37.5 mg- hydrochlorothiazide 25 mg tablet RxNorm: 281807 1 Tablet(s) PO daily No Start Date 07/08/2015 Inactive simvastatin 20 mg ta blet RxNorm: 124546 1 Tablet(s) PO daily No Start Date 08/23/2015 Inactive Medication Administered No Medication Administered data Immunizations Vaccine Codes Date Status Influenza CVX: 141 06/21 completed Influenza CVX: 141 06/21 completed Influenza CVX: 141 06/24 completed Influenza CVX: 141 06/19 completed Influenza CVX: 141 07/26 completed Pneumococcal CVX: 33 09/2011 completed Assessments Condition Codes Effectiv e Dates Dysuria ICD-10: R30.0 ICD-9: 788.1 12/31/2018 Essential (primary) hypertension ICD -10: I10 ICD-9: 401.9 09/05/2018 Rash and other nonspecific skin eruption ICD-10: R21 ICD-9: 782.1 09/05/2018 Unsteadiness on feet ICD-10: R26.81 ICD-9: 781.2 08/15/2018 Weakness ICD-10: R53.1 ICD-9: 780.79 08/15/2018 Tinea barbae and tinea capitis ICD-1 0: B35.0 ICD-9: 110.0 08/15/2018 Encounter for immunization ICD-10: Z 23 ICD-9: V04.81 06/21/2018 Gastro-esophageal reflux disease without esophagitis ICD-10: K21.9 ICD-9: 530.81 05/29/2018 Other allergic rhinitis ICD-10: J30. 89 ICD-9: 477.8 05/29/2018 Mixed hyperlipidemia ICD-10: E78.2 ICD-9: 272.2 04/18/2018 Underweight ICD-10: R63.6 ICD-9: 783.22 04/18/2018 Bicipital tendinitis, left shoulder ICD-10: M75.22 ICD-9: 726.12 01/22/2018 Pain in right shoulder ICD-10: M25.5 11 ICD-9: 719.41 01/01/2018 Bicipital tendinitis, right shoulder ICD-10: M75.21 ICD-9: 726.12 01/01/2018 Actinic keratosis ICD-10: L57.0 ICD-9: 702.0 12/12/2017 Fracture of unspecified part of neck of left femur, subsequent encounter for closed fracture with routine healing ICD-10: S72.002D ICD-9: V54.13 09/13/2017 Vitamin B12 deficiency anemia due to int rinsic 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 ICD-9: 281.0 06/21/2017 Gastro-esophageal reflux disease with esophagitis ICD-10: K21.0 ICD-9: 530.81 06/21/2017 Age-related osteoporosis without current pathological fracture ICD-10: M81.0 ICD-9: 733.00 06/21/2017 Mixed hyperlipidemia ICD-10: E78.2 ICD-9: 272.4 06/21/2017 Generalized anxiety disorder ICD-10: F41.1 ICD-9: 300.02 05/16/2017 Inflamed seborrheic keratosis ICD-10 : L82.0 ICD-9: [...] Visit Reason For Visit Effective Dates Notes urinary urgency 12/31/2018 rash 09/05/2018 hypertension 08/15/2018 [...] Observation Code Item Item Code Result Date Urine Culture Ucult Comp lete >100,000 col/ml [...] 31.4 pg 04/18/2018 Cbc With Differential Ord2 [place]% 9.2 % 04/18/2018 Cbc With Differential Ord2 [...] 0.76 K/ul 04/18/2018 Cbc With Differential Ord2 [place] ABS# 0.5 K/ul 04/18/2018 Cbc With Differential [...] Ord15 CALCIUM 9.1 mg/dL 04/18/2018 Comp Metabolic Xnx759 NA 130 mEq/L 12/07/2017 Comp Metabolic Mws117 K 3.6 mEq/L 12/07/2017 Comp Metabolic Bgi952 CL 91 mEq/L 12/07/2017 Comp Metabolic Rao885 CO2 29.0 mEq/L 12/07/2017 Comp Metabolic Ghz624 AN ION GAP 14 12/07/2017 Comp Metabolic Pag610 GL UCOSE 105 mg/dL 12/07/2017 Comp Metabolic Fhl156 Cr eat 0.6 mg/dL 12/07/2017 Comp Metabolic Erh125 eG FR 94 ml/min/1.73m2 12/07 Comp Metabolic Ywx628 BUN 15 mg/dL 12/07/2017 Comp Metabolic Jji311 B/ C Ratio 23.4 Ratio 12/07/2017 Comp Metabolic Iat141 CA LCIUM 9.3 mg/dL 12/07/2017 Comp Metabolic Bye068 AL K PHOS 62 U/L 12/07/2017 Comp Metabolic Qsp087 T(SGOT) 31 U/L 12/07/2017 Comp Metabolic Wrv044 AL T(SGPT) 22 U/L 12/07/2017 Comp Metabolic Xdy330 BI LI T 0.4 mg/dL 12/07/2017 Comp Metabolic Sjz247 AL BUMIN 4.3 g/dL 12/07/2017 Comp Metabolic Vsi962 TP RO 6.5 g/dL 12/07/2017 Comp Metabolic Crm603 GL OB 2.2 g/dL 12/07/2017 Comp Metabolic Zss210 A/ G Ratio 2.0 Ratio 12/07/2017 Comp Metabolic Kib808 Os mo 262 mOsmo 12/07/2017 Cbc With [...] 31.0 pg 12/07/2017 Cbc With Differential Ord2 [place]% 10.4 % 12/07/2017 Cbc With Differential Ord2 [...] 0.57 K/ul 12/07/2017 Cbc With Differential Ord2 [place] ABS# 0.5 K/ul 12/07/2017 Cbc With Differential [...] 32.3 pg 06/21/2017 Cbc With Differential Ord2 [place]% 10.1 % 06/21/2017 Cbc With Differential Ord2 [...] 0.65 K/ul 06/21/2017 Cbc With Differential Ord2 [place] ABS# 0.5 K/ul 06/21/2017 Cbc With Differential Ord2 [place] ABS# 0.2 K/ul 06/21/2017 Cbc With Differential Ord2 Bas[place] ABS# 0.0 K/ul 06/21/2017 Comp Metabolic Jna703 NA 133 mEq/L 06/21/2017 Comp Metabolic Sqp947 K 4.0 mEq/L 06/21/2017 Comp Metabolic Xke491 CL 94 mEq/L 06/21/2017 Comp Metabolic Vtz424 CO2 25.0 mEq/L 06/21/2017 Comp Metabolic Bhg308 AN ION GAP 18 06/21/2017 Comp Metabolic Uen652 GL UCOSE 88 mg/dL 06/21/2017 Comp Metabolic Aas663 Cr eat 0.6 mg/dL 06/21/2017 Comp Metabolic Rmf261 eG FR 94 ml/min/1.73m2 06/21 Comp Metabolic Anx198 BUN 16 mg/dL 06/21/2017 Comp Metabolic Bon133 B/ C Ratio 25.0 Ratio 06/21/2017 Comp Metabolic Wjm530 CA LCIUM 9.1 mg/dL 06/21/2017 Comp Metabolic Cha655 AL K PHOS 65 U/L 06/21/2017 Comp Metabolic Ajt354 T(SGOT) 31 U/L 06/21/2017 Comp Metabolic Lgg348 AL T(SGPT) 20 U/L 06/21/2017 Comp Metabolic Atz169 BI LI T 0.5 mg/dL 06/21/2017 Comp Metabolic Zax178 AL BUMIN 4.3 g/dL 06/21/2017 Comp Metabolic Arb323 TP RO 6.6 g/dL 06/21/2017 Comp Metabolic Xuo621 GL OB 2.3 g/dL 06/21/2017 Comp Metabolic Eud934 A/ G Ratio 1.8 Ratio 06/21/2017 Comp Metabolic Juz079 Os mo 267 mOsmo 06/21/2017 Lipid Ord30 CHOL 188 mg/dL 06/21/2017 Lipid Ord30 HDL 77.0 mg/dl 06/21/2017 Lipid Ord30 TRIG 66 mg/dL 06/21/2017 Lipid Ord30 LDL 98 mg/dL 06/21/2017 Lipid Ord30 C/HDL 2.4 Ratio 06/21/2017 Tsh Ord6 hTSH II 1.32 uIU/mL 06/21/2017 Comp Metabolic Mfo365 NA 135 mEq/L 02/09/2017 Comp Metabolic Zxz156 K 4.0 mEq/L 02/09/2017 Comp Metabolic Lkn339 CL 96 mEq/L 02/09/2017 Comp Metabolic Iyk294 CO2 28.0 mEq/L 02/09/2017 Comp Metabolic Raw463 AN ION GAP 15 02/09/2017 Comp Metabolic Kca836 GL UCOSE 101 mg/dL 02/09/2017 Comp Metabolic Gqh933 Cr eat 0.7 mg/dL 02/09/2017 Comp Metabolic Eem977 eG FR 83 ml/min/1.73m2 02/09 Comp Metabolic Kvz654 BUN 17 mg/dL 02/09/2017 Comp Metabolic Xyn460 B/ C Ratio 23.9 Ratio 02/09/2017 Comp Metabolic Wst649 CA LCIUM 9.3 mg/dL 02/09/2017 Comp Metabolic Xfj744 AL K PHOS 51 U/L 02/09/2017 Comp Metabolic Xzp385 T(SGOT) 33 U/L 02/09/2017 Comp Metabolic Tba415 AL T(SGPT) 21 U/L 02/09/2017 Comp Metabolic Xfv147 BI LI T 0.6 mg/dL 02/09/2017 Comp Metabolic Wce071 AL BUMIN 4.3 g/dL 02/09/2017 Comp Metabolic Gej404 TP RO 6.9 g/dL 02/09/2017 Comp Metabolic Gtz064 GL OB 2.6 g/dL 02/09/2017 Comp Metabolic Oqw706 A/ G Ratio 1.7 Ratio 02/09/2017 Comp Metabolic Hpr452 Os mo 272 mOsmo 02/09/2017 Lipid Ord30 [...] 31.8 pg 02/09/2017 Cbc With Differential Ord2 [place]% 11.3 % 02/09/2017 Cbc With Differential Ord2 [...] 0.77 K/ul 02/09/2017 Cbc With Differential Ord2 [place] ABS# 0.6 K/ul 02/09/2017 Cbc With Differential [...] 31.5 pg 03/29/2016 Cbc With Differential Ord2 [place]% 9.5 % 03/29/2016 Cbc With Differential Ord2 [...] 0.60 K/ul 03/29/2016 Cbc With Differential Ord2 [place] ABS# 0.4 K/ul 03/29/2016 Cbc With Differential Ord2 [place] ABS# 0.1 K/ul 03/29/2016 Cbc With Differential Ord2 Bas[place] ABS# 0.0 K/ul 03/29/2016 Comp Metabolic Jsr655 NA 135 mEq/L 03/29/2016 Comp Metabolic Jhu258 K 3.7 mEq/L 03/29/2016 Comp Metabolic Pbq871 CL 96 mEq/L 03/29/2016 Comp Metabolic Uaz199 CO2 30.0 mEq/L 03/29/2016 Comp Metabolic Gkz491 AN ION GAP 13 03/29/2016 Comp Metabolic Mgh613 GL UCOSE 102 mg/dL 03/29/2016 Comp Metabolic Ldp489 Cr eat 0.6 mg/dL 03/29/2016 Comp Metabolic Ztu125 eG FR 94 ml/min/1.73m2 03/29 Comp Metabolic Wnr901 BUN 15 mg/dL 03/29/2016 Comp Metabolic Mmn278 B/ C Ratio 23.4 Ratio 03/29/2016 Comp Metabolic Zqx233 CA LCIUM 9.1 mg/dL 03/29/2016 Comp Metabolic Wyq005 AL K PHOS 70 U/L 03/29/2016 Comp Metabolic Mkx925 T(SGOT) 35 U/L 03/29/2016 Comp Metabolic Rbl844 AL T(SGPT) 27 U/L 03/29/2016 Comp Metabolic Qsh196 BI LI T 0.5 mg/dL 03/29/2016 Comp Metabolic Pzv116 AL BUMIN 4.2 g/dL 03/29/2016 Comp Metabolic Pyc534 TP RO 6.6 g/dL 03/29/2016 Comp Metabolic Nsi983 GL OB 2.4 g/dL 03/29/2016 Comp Metabolic Gfn701 A/ G Ratio 1.7 Ratio 03/29/2016 Comp Metabolic Dnn529 Os mo 271 mOsmo 03/29/2016 Tsh Ord6 hTSH II 1.17 uIU/mL 03/29/2016 B12 Gsy571 B12 838.00 pg/ml 09/02/2015 Tsh Ord6 hTSH [...] Ord2 RDW 15.1 % 09/02/2015 Comp Metabolic Trm922 NA 135 mEq/L 09/02/2015 Comp Metabolic Hpp866 K 3.4 mEq/L 09/02/2015 Comp Metabolic Smr186 CL 95 mEq/L 09/02/2015 Comp Metabolic Cto591 CO2 27.0 mEq/L 09/02/2015 Comp Metabolic Gzd197 AN ION GAP 16 09/02/2015 Comp Metabolic Wki907 GL UCOSE 94 mg/dL 09/02/2015 Comp Metabolic Hel823 Cr eat 0.7 mg/dL 09/02/2015 Comp Metabolic Mqe051 eG FR 87 ml/min/1.73m2 09/02 Comp Metabolic Zod183 BUN 18 mg/dL 09/02/2015 Comp Metabolic Elu088 B/ C Ratio 26.1 Ratio 09/02/2015 Comp Metabolic Lxk463 CA LCIUM 9.0 mg/dL 09/02/2015 Comp Metabolic Kgw741 AL K PHOS 67 U/L 09/02/2015 Comp Metabolic Pyp187 T(SGOT) 30 U/L 09/02/2015 Comp Metabolic Hjt785 AL T(SGPT) 21 U/L 09/02/2015 Comp Metabolic Mxi214 BI LI T 0.6 mg/dL 09/02/2015 Comp Metabolic Imx135 AL BUMIN 4.3 g/dL 09/02/2015 Comp Metabolic Qql205 TP RO 6.8 g/dL 09/02/2015 Comp Metabolic Vlm952 GL OB 2.5 g/dL 09/02/2015 Comp Metabolic Oeh336 A/ G Ratio 1.7 Ratio 09/02/2015 Comp Metabolic Ave919 Os mo 272 mOsmo 09/02/2015 Lipid Ord30 CHOL 181 mg/dL 09/02/2015 Lipid Ord30 HDL 66.0 mg/dl 09/02/2015 Lipid Ord30 TRIG 77 mg/dL 09/02/2015 Lipid Ord30 LDL 100 mg/dL 09/02/2015 Lipid Ord30 C/HDL 2.7 Ratio 09/02/2015 Review of Systems System Result Effective Dates Constitutional No recent illness 12/31/2018 Constitutional No [...] pain 01/22/2018 Neurologic No syncope Psychiatric anxiety / Constitutional No recent illness 01/01/2018 Constitutional No [...] affect 03/04/2015 None Procedures Procedure Codes Date ADMIN INFLUENZA VIRU S VAC CPT-4: G0008 06/21/2018 FLU VACC PRSV FREE I NC ANTIG CPT-4: 42959 06/21/2018 ADMIN INFLUENZA VIRU S VAC CPT-4: G0008 06/21/2017 FLU VACC PRSV FREE I NC ANTIG CPT-4: 61017 06/21/2017 ADMIN INFLUENZA VIRU S VAC CPT-4: G0008 06/24/2016 FLU VACC 4 CRISTINE 3 YRS PLUS IM Formatting Model/CDA Sections, Assigned to/Carmen Solis SNOMED CT: 81557275 CPT-4: 10268Vpntxjj 06/24/2016 ADMIN INFLUENZA VIRU S VAC CPT-4: G0008 06/19/2015 FLU VACC 4 CRISTINE 3 YRS PLUS IM Formatting Model/CDA Sections, Assigned to/Carmen Solis CT: [id number] CPT-4: 99473Rckmucd 06/19/2015 Vital Signs Date Vital 12/31/2018 Blood Pressure 1: 140/52 Code: 8480-6 BMI: 16.2 Code: 02666-2 Heart Rate 1: 70 bpm Height: 5'2" SpO2: 95% Weight: 90 lbs 09/05/2018 Blood Pressure 1: 138/74 Code: 8480-6 BMI: 16.1 Code: 15454-3 Heart Rate 1: 69 bpm Height: 5'2" SpO2: 98% Weight: 89 lbs 8 oz 08/15/2018 Blood Pressure 1: 142/72 Code: 8480-6 BMI: 16.3 Code: 43791-1 Heart Rate 1: 66 bpm Height: 5'2" SpO2: 99% Weight: 90 lbs 8 oz 05/29/2018 Blood Pressure 1: 140/70 Code: 8480-6 BMI: 16.2 Code: 72395-3 Heart Rate 1: 67 bpm Height: 5'2" SpO2: 99% Weight: 90 lbs 05/14/2018 Blood Pressure 1: 146/68 Code: 8480-6 BMI: 16.0 Code: 90170-3 Heart Rate 1: 70 bpm Height: 5'2" SpO2: 98% Weight: 89 lbs 04/18/2018 Blood Pressure 1: 126/68 Code: 8480-6 BMI: 15.7 Code: 13756-3 Heart Rate 1: 81 bpm Height: 5'2" SpO2: 99% Weight: 87 lbs 01/22/2018 Blood Pressure 1: 136/76 Code: 8480-6 BMI: 15.8 Code: 94390-1 Heart Rate 1: 73 bpm Height: 5'2" SpO2: 99% Weight: 88 lbs 01/01/2018 Blood Pressure 1: 148/76 Code: 8480-6 BMI: 15.8 Code: 54655-4 Heart Rate 1: 74 bpm Height: 5'2" SpO2: 98% Weight: 88 lbs 12/12/2017 Blood Pressure 1: 140/72 Code: 8480-6 BMI: 15.8 Code: 88979-8 Heart Rate 1: 65 bpm Height: 5'2" SpO2: 96% Weight: 88 lbs 09/13/2017 Blood Pressure 1: 138/70 Code: 8480-6 BMI: 15.9 Code: 83307-0 Heart Rate 1: 74 bpm Height: 5'2" SpO2: 99% Weight: 88 lbs 8 oz 06/21/2017 Blood Pressure 1: 122/50 Code: 8480-6 BMI: 15.3 Code: 00059-0 Heart Rate 1: 69 bpm Height: 5'2" SpO2: 99% Weight: 85 lbs 05/25/2017 Blood Pressure 1: 138/72 Code: 8480-6 Heart Rate 1: 77 bpm Height: 5'2" SpO2: 98% Weight: 05/16/2017 Blood Pressure 1: 136/78 Code: 8480-6 Heart Rate 1: 86 bpm Height: 5'2" SpO2: 98% Weight: 02/15/2017 Blood Pressure 1: 144/78 Code: 8480-6 BMI: 15.4 Code: 53177-5 Heart Rate 1: 65 bpm Height: 5'2" SpO2: 98% Weight: 85 lbs 8 oz 11/22/2016 Blood Pressure 1: 140/58 Code: 8480-6 BMI: 14.8 Code: 74402-1 Heart Rate 1: 79 bpm Height: 5'2" SpO2: 99% Weight: 82 lbs 09/15/2016 BMI: 16.0 Code: 22779-2 Height: 5'2" Weight: 89 lbs 09/07/2016 Blood Pressure 1: 130/62 Code: 8480-6 BMI: 16.2 Code: 98919-0 Heart Rate 1: 71 bpm Height: 5'2" SpO2: 98% Weight: 90 lbs 07/06/2016 Blood Pressure 1: 144/76 Code: 8480-6 BMI: 15.8 Code: 79344-6 Heart Rate 1: 78 bpm Height: 5'2" SpO2: 99% Weight: 88 lbs 04/06/2016 Blood Pressure 1: 148/58 Code: 8480-6 BMI: 16.2 Code: 55693-6 Heart Rate 1: 64 bpm Height: 5'2" SpO2: 97% Weight: 90 lbs 01/06/2016 Blood Pressure 1: 146/72 Code: 8480-6 BMI: 16.6 Code: 87474-7 Heart Rate 1: 62 bpm Height: 5'2" SpO2: 99% Weight: 92 lbs 09/02/2015 Blood Pressure 1: 132/70 Code: 8480-6 BMI: 16.6 Code: 51182-0 Heart Rate 1: 77 bpm Height: 5'2" SpO2: 98% Weight: 92 lbs 06/15/2015 Blood Pressure 1: 144/60 Code: 8480-6 BMI: 16.7 Code: 60148-7 Heart Rate 1: 66 bpm Height: 5'2" SpO2: 97% Weight: 93 lbs 03/04/2015 Blood Pressure 1: 120/80 Code: 8480-6 BMI: 15.8 Code: 74131-8 Heart Rate 1: 74 bpm Height: 5'2" Weight: 88 lbs Functional Status No Functional Status data History of Present Illness Symptom Name Status Resu lt Effective Date Notes Quality constant 12/31/2018 None Onset and Resolution [...] triggers 02/15/2017 None Hospital Follow Up _ [facility] er: surgery follow up 11/22/2016 None hypertension [...] chr onic 09/07/2016 None hypertension Quality robinson linus hypertension 09/07/2016 None hypertension Onset and Resolution [...] Encounters Encounter Performer Loca tion Codes Date [id number] EST. PATIENT, LEVEL IV Diagnosis: Dysuria[ICD10: R30.0] Kala Bradshaw MD, [facility] CPT-4: 11875 12/31/2018 ([id number]) 33725 EST. P ATIENT, LEVEL IV Diagnosis: Essential (primary) hypertension[ICD10: I10] Diagnosis: Rash and other nonspecific skin eruption[ICD10: R21] Anum Bradshaw MD, [facility] CPT-4: 16180 09/05/2018 [id number]) 45937 EST. P ATIENT, LEVEL IV Diagnosis: Essential (primary) hypertension[ICD10: I10] Diagnosis: Tinea barbae and tinea capitis[ICD10: B35.0] Diagnosis: Unsteadiness on feet[ICD10: R26.81] Diagnosis: Weakness[ICD10: R53.1] Anum Bradshaw MD, [facility] CPT-4: 05144 08/15/2018 ([id number] 07831 EST. P ATIENT, LEVEL III Diagnosis: Rash and other nonspecific skin eruption[ICD10: R21] Diagnosis: Other allergic rhinitis[ICD10: J30.89] Diagnosis: Gastro-esophageal reflux disease without esophagitis[ICD10: K21.9] Rosalinda Bradshaw MD, [facility] CPT-4: 97427 05/29/2018 ([id number]) 89992 EST. P ATIENT, LEVEL III Diagnosis: Rash and other nonspecific skin eruption[ICD10: R21] Rosalinda Bradshaw MD, [facility] CPT-4: 17118 05/14/2018 ([id number]) 32691 EST. P ATIENT, LEVEL IV Diagnosis: Essential (primary) hypertension[ICD10: I10] Diagnosis: Underweight[ICD10: R63.6] Diagnosis: Mixed hyperlipidemia[ICD10: E78.2] Anum Bradshaw MD, [facility] CPT- 4: 41048 04/18/2018 ([id number]) 02560 EST. P ATIENT, LEVEL III Diagnosis: Bicipital tendinitis, left shoulder[ICD10: M75.22] Anum Bradshaw MD, C CPT-4: 64309 01/22/2018 ([id number]) 33726 EST. P ATIENT, LEVEL III Diagnosis: Pain in right shoulder[ICD10: M25.511] Diagnosis: Bicipital tendinitis, right shoulder[ICD10: M75.21] Anum Bradshaw MD, C CPT-4: 30607 01/01/2018 ([id number]) 30389 EST. P ATIENT, LEVEL IV Diagnosis: Essential (primary) hypertension[ICD10: I10] Diagnosis: Underweight[ICD10: R63.6] Diagnosis: Mixed hyperlipidemia[ICD10: E78.2] Diagnosis: Actinic keratosis[ICD10: L57.0] Anum Bradshaw MD, [facility] CPT-4: 74856 12/12/2017 ([id number]) 16597 EST. P ATIENT, LEVEL III Diagnosis: Essential (primary) hypertension[ICD10: I10] Diagnosis: Fracture of unspecified part of neck of left femur, subsequent encounter for closed fracture with routine healing[ICD10: S72.002D] Diagnosis: Underweight[ICD10: R63.6] Anum Bradshaw MD, [facility] CPT-4: 54220 09/13/2017 ([id number]) 10109 EST. P ATIENT, LEVEL IV Diagnosis: Mixed hyperlipidemia[ICD10: E78.2] Diagnosis: Essential (primary) hypertension[ICD10: I10] Diagnosis: Vitamin B12 deficiency anemia due to intrinsic factor deficiency[ICD10: D51.0] Diagnosis: Gastro-esophageal reflux disease with esophagitis[ICD10: K21.0] Diagnosis: Age-related osteoporosis without current pathological fracture[ICD10: M81.0] Diagnosis: Encounter for immunization[ICD10: Z23] Anum Bradshaw MD, [facility] CPT-4: 28951 06/21/2017 ([id number]) 25757 EST. P ATIENT, LEVEL III Diagnosis: Fracture of unspecified part of neck of left femur, subsequent encounter for closed fracture with routine healing[ICD10: S72.002D] Diagnosis: Underweight[ICD10: R63.6] Diagnosis: Gastro-esophageal reflux disease with esophagitis[ICD10: K21.0] Anum Bradshaw MD, [facility] CPT-4: 77226 05/25/2017 ([id number]) 54170 EST. P ATIENT, LEVEL IV Diagnosis: Essential (primary) hypertension[ICD10: I10] Diagnosis: Fracture of unspecified part of neck of left femur, subsequent encounter for closed fracture with routine healing[ICD10: S72.002D] Diagnosis: Generalized anxiety disorder[ICD10: F41.1] Anum Bradshaw MD, [facility] CPT-4: 10688 05/16/2017 ([id number]) 96435 EST. P ATIENT, LEVEL IV Diagnosis: Essential (primary) hypertension[ICD10: I10] Diagnosis: Mixed hyperlipidemia[ICD10: E78.2] Diagnosis: Generalized anxiety disorder[ICD10: F41.1] Anum Bradshaw MD, [facility] CPT-4: 91918 02/15/2017 ([id number]) 47180 EST. P ATIENT, LEVEL IV Diagnosis: Mixed hyperlipidemia[ICD10: E78.2] Diagnosis: Generalized anxiety disorder[ICD10: F41.1] Diagnosis: Essential (primary) hypertension[ICD10: I10] Diagnosis: Gastro-esophageal reflux disease with esophagitis[ICD10: K21.0] Anum Bradshaw MD, [facility] CPT-4: 39685 11/22/2016 41346 EST. PATIENT, LEVEL III Diagnosis: Inflamed seborrheic keratosis[ICD10: L82.0] Kala Bradshaw MD, [facility] CPT-4: 11712 09/15/2016 ([id number]) 03227 EST. P ATIENT, LEVEL IV Diagnosis: Essential (primary) hypertension[ICD10: I10] Diagnosis: Mixed hyperlipidemia[ICD10: E78.2] Diagnosis: Generalized anxiety disorder[ICD10: F41.1] Anum Bradshaw MD [facility] CPT-4: 17666 09/07/2016 ([id number]) 50682 EST. P ATIENT, LEVEL IV Diagnosis: Essential (primary) hypertension[ICD10: I10] Diagnosis: Frequency of micturition[ICD10: R35.0] Diagnosis: Age-related osteoporosis without current pathological fracture[ICD10: M81.0] Anum Bradshaw MD, [facility] CPT-4: 53065 07/06/2016 ([id number]) 54067 EST. P ATIENT, LEVEL IV Diagnosis: Essential (primary) hypertension[ICD10: I10] Diagnosis: Mixed hyperlipidemia[ICD10: E78.2] Diagnosis: Gastro-esophageal reflux disease with esophagitis[ICD10: K21.0] Anum Bradshaw MD, [facility] CPT-4: 45525 04/06/2016 50474 EST. PATIENT, LEVEL IV Diagnosis: Essential (primary) hypertension[ICD10: I10] Diagnosis: Gastro-esophageal reflux disease with esophagitis[ICD10: K21.0] Kala Bradshaw MD, [facility] CPT-4: 43592 01/06/2016 ([id number]) 21581 EST. P ATIENT, LEVEL IV Diagnosis: Essential (primary) hypertension[ICD10: I10] Diagnosis: Gastro-esophageal reflux disease with esophagitis[ICD10: K21.0] Diagnosis: Other dietary vitamin B12 deficiency anemia[ICD10: D51.3] Diagnosis: Vitamin B12 deficiency anemia due to intrinsic factor deficiency[ICD10: D51.0] Diagnosis: Occlusion and stenosis of unspecified carotid artery[ICD10: I65.29] Anum Bradshaw MD, [facility] CPT-4: 65812 09/02/2015 ([id number]) 13793 EST. [facility], [facility] Diagnosis: Carpal tunnel syndrome[ICD9: 354.0] Diagnosis: Inflamed seborrheic keratosis[ICD9: 702.11] Rosalinda Bradshaw MD, [facility] CPT-4: 60286 06/15/2015 ([id number]) OFFICE V[facility] - LEVEL 4 Diagnosis: ESSENTIAL HYPERTENSION[ICD9: 401.9] Diagnosis: ESOPHAGEAL REFLUX[ICD9: 530.81] Diagnosis: HYPERLIPIDEMIA[ICD9: 272.4] Anum Bradshaw MD, [facility] CPT-4: 72753 03/04/2015 Plan of Care Planned Activity Notes C odes Status Date Visit Plan: UTI - pt with positive urinalysis - culture sent if appropriate. Antibiotic electronically prescribed to pt's pharmacy of choice. Pt to call if symptoms do not improve. 12/31/2018 Appointment: Kala Sanches WPtel: [address] [place], [place] [id number] (30 min) Complex 12/31/2018 Patient Education: Patient [...] for betamethasone. 09/05/2018 Appointment: Anum Bradshaw WPtel: [address] [place], [place] [address] (15 min) Moderate 09/05/2018 Patient Education: Patient [...] not improving. 08/15/2018 Appointment: [facility] ([facility] Moderate 08/15/2018 Patient Education: Patient Medication Summary Completed 08/15/2018 Patient Education: Hypertension Completed 08/15/2018 Appointment: Anum Bradshaw WPtel: [phone] [facility] (15 min) Moderate 2018 Appointment: Injection [...] ketoconazole shampoo 05/29/2018 Appointment: Rosalinda Bermudez WPtel: [phone] (30 min) Complex 05/29/2018 Patient Education: [...] weeks -sooner if needed 05/14/2018 Appointment: Rosalinda Bremudez WPtel: [phone] [place] (30 min) Complex 05/14/2018 Patient [...] medications. 04/18/2018 Appointment: Anum Bradshaw WPtel: [phone] [facility] (15 min) Moderate 04/18/2018 Patient Education: Patient Medication Summary Completed 04/18/2018 Appointment: Injection 03/08/2018 Visit Plan: Left shoulder pain - bi cep tendonitis - continue with physical therapy at [facility]. Use voltaren gel on left shoulder now - continue with therapy on right shoulder. 01/22/2018 Appointment: Anum Bradshaw WPtel: [phone] [facility] (15 min) Moderate 01/22/2018 Patient Education: Patient [...] tendonitis - referral to physical therapy at [facility] 01/01/2018 Appointment: Anum Bradshaw WPtel: [phone] [facility] (15 min) Moderate 01/01/2018 Patient Education: [...] weeks 12/12/2017 Appointment: [phone] [facility] ([facility]) Moderate 12/12/2017 Patient Education: Patient [...] healing. 09/13/2017 Appointment: [phone] [facility] ([facility] min) Moderate 09/13/2017 Patient Education: Patient [...] not improving. 06/21/2017 Appointment: Anum Bradshaw WPtel: [phone] [facility] (15 min) Moderate 06/21/2017 Patient Education: Patient Medication Summary Completed 06/21/2017 Visit Plan: Esophageal Reflux - the patient has been taking medication as directed and her symptoms are improved. Hip fracture - continue with supportive care, nonweight bearing. Underweight - increase protein intake, higher calorie diet, use wheelchair to decrease excessive caloric expenditure. 05/25/2017 Appointment: Anum Bradshaw WPtel: [phone] [facility] (15 min) Moderate 05/25/2017 Patient Education: [...] current medications. 05/16/2017 Appointment: [phone] [facility] ([facility] min) Moderate 05/16/2017 Patient Education: Patient [...] medications. 02/15/2017 Appointment: Anum Bradshaw WPtel: [phone] [facility] (15 min) Moderate 02/15/2017 Patient Education: Patient Medication Summary Completed 02/15/2017 Patient Education: Hypertension Completed 02/15/2017 Care Plan: Referral Order SNOMED-CT : [id number] Pending 02/15/2017 Appointment: [phone] [phone] ([facility] min) Moderate 01/11/2017 Visit Plan: Hypertension [...] current treatment 11/22/2016 Appointment: Anum Bradshaw WPtel: [facility] (15 min) Moderate 11/22/2016 Patient Education: Patient Medication Summary Completed 11/22/2016 Patient Education: Hypertension Completed 11/22/2016 Appointment: Rosalinda Bermudez WPtel: [phone] [phone] [place] (30 min) Complex 09/16/2016 Visit [...] monitor symptoms. 09/07/2016 Appointment: Anum Bradshaw WPtel: [facility] (15 min) Moderate 09/07/2016 Patient Education: Patient [...] negative 07/06/2016 Appointment: [facility] [phone] [facility] ([facility] min) Moderate 07/06/2016 Patient Education: Patient [...] improving. 04/06/2016 Appointment: [phone] [phone] (15 min) Moderate 04/06/2016 Patient Education: Patient [...] 09/02/2015 Care Plan: Referral Order SNOMED-CT : [id number] Ordered 09/02/2015 Appointment: Injection 06/19/2015 Patient Education: [...] not improving. 03/04/2015 Appointment: Anum Bradshaw WPtel: [facility] [place] ([place] New Patient 03/04/2015 Patient Education: [...] cream and call if not improving. . UTI - pt with posi tive urinalysis - culture sent if appropriate. Antibiotic electronically prescribed to pt's pharmacy of choice. Pt to call if symptoms do not improve. . Left shoulder pain - bicep tendonitis [...] office if the symptoms are not improving. Monitor your blood p ressure [...] symptoms are not improving. . Hypertension - well controlled - continue with current medications, continue with no added salt diet. Pt has been encouraged to exercise daily. The pt has been advised to call the office if there are any acute concerns about change in blood pressure readings at home. Right shoulder pain - bicep tendonitis - referral to physical therapy at [facility] take the pantoprazol e 40mg at night [...] Anxiety - stable - continue current treatment take the carafate at bedtime - continue [...] office if the symptoms are not improving. INCREASE CARAFATE SWITCH TO NIDIA [...]
--- OUTSIDE RECORDS SUMMARY | 2019-12-29 11:21 | XMS REPORT | CCD ---
Author Author Ashley Bradshaw Organization [facility] Address [address] [place] [address] Phone Care Team Providers Care Colon And Rectal Surgeon Name Role Phone PP Unavailable CCM Unavailable Summary Purpose Interface Exchange Insurance Providers Payer name Policy type / Coverage type Covered constitution party ID Effective Begin Date Effective End Date WPS Medicare Part B Medicare Part B [id number] Unknown Unknown CIGNA Medicare Part B [id number] Unknown Unknown Family history Father Diagnosis Age At Onset Coronary Artery Disease Unknown Mother Diagnosis Age At Onset Anemia Unknown Skin cancer Unknown Hypertension Unknown Cancer Unknown Breast cancer Unknown Social History Social History Element Codes Description Effective Dates Marital status Unknown M arried Shahram 03/04/2015 Number of children Unknown 3 03/04/[address]: 885123583 Never smoker 03/04/[address]: 816784676 Never drinks alcohol 03/04/2015 Allergies, Adverse Reactions, Alerts Substance Reaction Codes Entered Date Inactivated Date Status NEOSPORIN RxNorm: 386518 01/06/2016 No Inactive Date Active Past Medical [...] Fill Instructions Keflex 500 mg capsule RxNorm: 653756 1 Capsule(s) PO TID 12/31/2018 01/09/2019 Active Pyridium 200 mg tablet RxNorm: 2520711 1 Tablet(s) PO TID 12/31/2018 01/01/2019 Active esomeprazole magnesi um 40 mg capsule,delayed release RxNorm: 345631 Capsule(s) TAKE 1 CAPSULE BY MOUTH DAILY 11/27/2018 02/19/2020 Active wants to pay henry Zantac 150 mg tablet RxNorm: 814504 1 Tablet(s) PO BID 11/02/2018 11/26/2018 Inactive Zantac 150 mg tablet RxNorm: 999934 1 Tablet(s) PO BID 11/02/2018 11/01/2018 Inactive sucralfate 100 mg/mL oral suspension RxNorm: 757696 10 Milliliter(s) per 1 gram PO QID 10/08/2018 10/02/2019 Active diltiazem 30 mg tablet RxNorm: 938434 1 Tablet(s) PO QID 10/08/2018 10/02/2019 Active betamethasone nasir te 0.1 % topical cream RxNorm: 795237 1 Application TOP BID 09/05/2018 11/03/2018 In active ketoconazole 2 % top ical cream RxNorm: 313471 1 Application TOP BID to posterior scalp x 2 weeks or until the skin is healed 08/15/2018 08/28/2018 Inactive triamterene 37.5 mg- hydrochlorothiazide 25 mg tablet RxNorm: 523541 Tablet(s) 1 Tablet(s) PO daily 07/12/2018 01/07/2019 Active PLEASE SEND REFILL REQUESTS ELECTRONICALLY simvastatin 20 mg ta blet RxNorm: 830249 TAKE 1 TABLET BY MOUT H EVERY DAY 07/12/2018 01/07/2019 Ac tive ketoconazole 2 % sha mpoo RxNorm: 667976 1 Application TOP BIW 05/14/2018 No Stop Date Active simvastatin 20 mg ta blet RxNorm: 596617 TAKE 1 TABLET BY MOUT H EVERY DAY 03/01/2018 07/11/2018 In active triamterene 37.5 mg- hydrochlorothiazide 25 mg tablet RxNorm: 961079 Tablet(s) 1 Tablet(s) PO daily 02/06/2018 07/11/2018 Inactive PLEASE SEND REFILL REQUESTS ELECTRONICALLY Voltaren 1 % topical gel RxNorm: 759857 2 Gram(s) TOP TID to shoulders 01/01/2018 04/30/2018 In active sucralfate 100 mg/mL oral suspension RxNorm: 855496 10 Milliliter(s) per 1 gram PO QID 12/12/2017 06/09/2018 Inactive refill 3 month supply- 1gm/10ml simvastatin 20 mg ta blet RxNorm: 617407 TAKE 1 TABLET BY MOUT H EVERY DAY 12/04/2017 02/28/2018 In active escitalopram 5 mg ta blet RxNorm: 281095 1 Tablet(s) PO QPM 10/26/2017 01/18/2019 Active esomeprazole magnesi um 40 mg capsule,delayed release RxNorm: 678643 TAKE 1 CAPSULE BY MOUTH DAILY 10/26/2017 11/01/2018 Inactive mupirocin 2 % topica l ointment RxNorm: 109576 APPLY TO AFFECTED ARE A(S) ONCE DAILY 10/16/2017 11/28/2017 In active diltiazem 30 mg tablet RxNorm: 837547 1 Tablet(s) PO QID 10/09/2017 10/03/2018 Inactive triamterene 37.5 mg- hydrochlorothiazide 25 mg tablet RxNorm: 549911 1 Tablet(s) PO daily 07/28/2017 01/23/2018 Inactive fluticasone 50 mcg/a ctuation nasal spray,suspension RxNorm: 8870620 2 Elizabeth NASAL daily 07/20/2017 01/15/2018 Inactive diltiazem 30 mg tablet RxNorm: 739056 1 Tablet(s) PO QID TAKE 1 TABLET BY MOUT H FOUR TIMES DAILY 07/13/2017 10/08/2017 Inactive simvastatin 20 mg ta blet RxNorm: 044855 TAKE 1 TABLET BY MOUT H EVERY DAY 06/08/2017 12/03/2017 In active Nexium 40 mg capsule ,delayed release RxNorm: 090628 1 Capsule(s) PO daily 05/25/2017 11/27/2017 In active esomeprazole magnesi um 40 mg capsule,delayed release RxNorm: 384902 Capsule(s) TAKE 1 CAPSULE BY MOUTH DAILY 05/17/2017 02/10/2018 Inactive diltiazem 30 mg tablet RxNorm: 075750 Tablet(s) TAKE 1 TABLET BY MOUTH FOUR TI MES DAILY 05/16/2017 07/12/2017 Inactive diltiazem 30 mg tablet RxNorm: 119821 TAKE 1 TABLET BY MOUTH THREE TIMES DAILY 02/09/2017 05/15/2017 In active Zofran ODT 4 mg disi ntegrating tablet RxNorm: 369191 1 Tablet(s) PO Q6 as needed 11/16/2016 11/22/2016 In active Protonix 40 mg table t,delayed release RxNorm: 502230 1 Tablet(s) PO daily 11/16/2016 12/15/2016 In active Protonix 40 mg table t,delayed release RxNorm: 753770 1 Tablet(s) PO daily 11/16/2016 11/15/2016 In active Zofran ODT 4 mg disi ntegrating tablet RxNorm: 113855 1 Tablet(s) PO Q6 as needed 11/16/2016 11/15/2016 In active escitalopram 5 mg ta blet RxNorm: 715221 1 Tablet(s) PO QPM 10/28/2016 10/22/2017 Inactive escitalopram 5 mg ta blet RxNorm: 465650 1 Tablet(s) PO QPM 10/05/2016 10/27/2016 Inactive mupirocin 2 % topica l ointment RxNorm: 103745 1 Application TOP yao ly APPLY TO AFFECTED AREA(S) TOPICALLY DAILY 09/07/2016 11/05/2016 Inactive Efudex 5 % topical c ream RxNorm: 202171 1 TOP BID 09/07/2016 09/16/2016 Inactive escitalopram 5 mg ta blet RxNorm: 464245 1 Tablet(s) PO QPM 09/07/2016 10/04/2016 Inactive sucralfate 100 mg/mL oral suspension RxNorm: 805850 10 Milliliter(s) per 1 gram PO QID 08/03/2016 07/28/2017 Inactive refill 3 month supply- 1gm/10ml clorazepate dipotass ium 3.75 mg tablet RxNorm: 021014 1 Tablet(s) PO QHS as needed insomnia 07/06/2016 08/14/2018 Inactive triamterene 37.5 mg- hydrochlorothiazide 25 mg tablet RxNorm: 645897 1 Tablet(s) PO daily 06/29/2016 06/23/2017 Inactive Nexium 40 mg capsule ,delayed release RxNorm: 910907 1 Capsule(s) PO daily 06/29/2016 07/05/2016 In active Bactroban 2 % topica l ointment RxNorm: 961739 APPLY TO AFFECTED ARE A(S) TOPICALLY DAILY 06/22/2016 09/06/2016 Inactive esomeprazole magnesi um 40 mg capsule,delayed release RxNorm: 025740 TAKE 1 CAPSULE BY MOUTH DAILY 06/13/2016 03/09/2017 Inactive simvastatin 20 mg ta blet RxNorm: 881378 1 Tablet(s) PO daily 05/16/2016 06/07/2017 Inactive simvastatin 20 mg ta blet RxNorm: 869456 1 Tablet(s) PO daily 05/12/2016 05/15/2016 Inactive famotidine 40 mg tablet RxNorm: 566423 TAKE 1 TABLET BY MOUTH DAILY 05/05/2016 01/29/2017 Inactive Bactroban 2 % topica l ointment RxNorm: 896732 APPLY TO AFFECTED ARE A(S) TOPICALLY DAILY 04/25/2016 05/01/2016 Inactive fluticasone 50 mcg/a ctuation nasal spray,suspension RxNorm: 5634577 2 Elizabeth NASAL daily 03/23/2016 09/18/2016 Inactive fluticasone 50 mcg/a ctuation nasal spray,suspension RxNorm: 082721 2 Elizabeth NASAL daily 03/07/2016 03/22/2016 Inactive Bactroban 2 % topica l ointment RxNorm: 032434 APPLY TO AFFECTED ARE A(S) TOPICALLY DAILY 02/29/2016 03/06/2016 Inactive diltiazem 30 mg tablet RxNorm: 703680 1 Tablet(s) PO TID 02/18/2016 02/08/2017 Inactive Bactroban 2 % topica l ointment RxNorm: 036980 1 Application TOP 01/08/2016 02/28/2016 Inactive clorazepate dipotass ium 3.75 mg tablet RxNorm: 405717 1 Tablet(s) PO daily 12/14/2015 06/10/2016 In active fluticasone 50 mcg/a ctuation nasal spray,suspension RxNorm: 987516 2 Elizabeth NASAL daily 12/14/2015 02/11/2016 Inactive diltiazem 30 mg tablet RxNorm: 862965 1 Tablet(s) PO TID 09/03/2015 02/17/2016 Inactive simvastatin 20 mg ta blet RxNorm: 547280 1 Tablet(s) PO daily 08/24/2015 05/11/2016 Inactive triamterene 37.5 mg- hydrochlorothiazide 25 mg tablet RxNorm: 855743 1 Tablet(s) PO daily 07/09/2015 06/28/2016 Inactive clorazepate dipotass ium 15 mg tablet RxNorm: 612987 1 Tablet(s) PO daily 07/06/2015 07/06/2015 In active clorazepate dipotass ium 3.75 mg tablet RxNorm: 899456 1 Tablet(s) PO daily 07/06/2015 12/13/2015 In active esomeprazole magnesi um 40 mg capsule,delayed release RxNorm: 149867 1 Capsule(s) PO daily 06/26/2015 06/12/2016 Inactive famotidine 40 mg tablet RxNorm: 105952 1 Tablet(s) PO daily 06/26/2015 05/04/2016 Inactive diltiazem 30 mg tablet RxNorm: 361399 1 Tablet(s) PO TID 06/09/2015 09/02/2015 Inactive sucralfate 100 mg/mL oral suspension RxNorm: 117657 10 Milliliter(s) per 1 gram PO QID 04/28/2015 04/21/2016 Inactive refill 3 month supply- 1gm/10ml member I d [id number] sucralfate 100 mg/mL oral suspension RxNorm: 389738 10 Milliliter(s) per 1 gram PO QID 04/27/2015 04/27/2015 Inactive refill 3 month supply diltiazem 30 mg tablet RxNorm: 237894 1 Tablet(s) PO TID 02/18/2015 02/17/2015 Inactive diltiazem 30 mg tablet RxNorm: 580890 1 Tablet(s) PO TID 02/18/2015 05/18/2015 Inactive Vitamin D3 2,000 uni t tablet RxNorm: 701465 Tablet(s) PO daily No Start Date Active Nidia ODT oral RxNorm: 541132 oral No Start Date Active PreserVision Lutein oral RxNorm: [address] art Date Active Calcium 500 + D oral RxNorm: 741933 oral No Start Date Active ketoconazole 2 % [facility] mpoo RxNorm: 256892 1 TOP daily No Start Date Active ketoconazole 2 % sha mpoo RxNorm: 939539 TOP No St art Date Active melatonin 5 mg tablet RxNorm: 340193 Tablet(s) PO QHS as needed No Start Date Active vitamin B6-vitamin E -magnesium oral RxNorm: 025629 oral No S tart Date Active famotidine 40 mg tablet RxNorm: 173473 1 Tablet(s) PO daily No Start Date 06/25/2015 Inactive clorazepate dipotass ium 3.75 mg tablet RxNorm: 324178 1 Tablet(s) PO daily No Start Date 07/05/2015 Inactive Bactroban 2 % topica l ointment RxNorm: 529084 1 Application TOP No Start Date 01/07/2016 Inactive Carafate 1 gram tablet RxNorm: 609345 1 Tablet(s) PO QID No Start Date 04/26/2015 Inactive Zyrtec 10 mg tablet RxNorm: 5899359 1 Tablet(s) PO daily No Start Date 08/14/2018 Inactive esomeprazole magnesi um 40 mg capsule,delayed release RxNorm: 105492 Capsule(s) PO daily No Start Date 06/25/2015 Inactive fluticasone 50 mcg/a ctuation nasal spray,suspension RxNorm: 169505 2 Elizabeth NASAL daily No Start Date 12/13/2015 Inactive Nexium 40 mg capsule ,delayed release RxNorm: 767427 1 Capsule(s) PO daily No Start Date 06/28/2016 Inactive triamterene 37.5 mg- hydrochlorothiazide 25 mg tablet RxNorm: 609399 1 Tablet(s) PO daily No Start Date 07/08/2015 Inactive simvastatin 20 mg ta blet RxNorm: 077396 1 Tablet(s) PO daily No Start Date [...] Observation Code Item Item Code Result Date Cbc With Differential Ord2 WBC 5.45 K/ul [...] 31.4 pg 04/18/2018 Cbc With Differential Ord2 Cotton% 9.2 % 04/18/2018 Cbc With Differential Ord2 [...] 0.76 K/ul 04/18/2018 Cbc With Differential Ord2 Cotton ABS# 0.5 K/ul 04/18/2018 Cbc With Differential [...] Ord15 CALCIUM 9.1 mg/dL 04/18/2018 Comp Metabolic Orz892 NA 130 mEq/L 12/07/2017 Comp Metabolic Lsr901 K 3.6 mEq/L 12/07/2017 Comp Metabolic Qsk945 CL 91 mEq/L 12/07/2017 Comp Metabolic Kdp400 CO2 29.0 mEq/L 12/07/2017 Comp Metabolic Lpk682 AN ION GAP 14 12/07/2017 Comp Metabolic Asy555 GL UCOSE 105 mg/dL 12/07/2017 Comp Metabolic Ybx074 Cr eat 0.6 mg/dL 12/07/2017 Comp Metabolic Fob590 eG FR 94 ml/min/1.73m2 12/07 Comp Metabolic Qys401 BUN 15 mg/dL 12/07/2017 Comp Metabolic Inc141 B/ C Ratio 23.4 Ratio 12/07/2017 Comp Metabolic Pga275 CA LCIUM 9.3 mg/dL 12/07/2017 Comp Metabolic Upb879 AL K PHOS 62 U/L 12/07/2017 Comp Metabolic Zvd415 T(SGOT) 31 U/L 12/07/2017 Comp Metabolic Ibr033 AL T(SGPT) 22 U/L 12/07/2017 Comp Metabolic Hzf378 BI LI T 0.4 mg/dL 12/07/2017 Comp Metabolic Zfp565 AL BUMIN 4.3 g/dL 12/07/2017 Comp Metabolic Svb078 TP RO 6.5 g/dL 12/07/2017 Comp Metabolic Icu585 GL OB 2.2 g/dL 12/07/2017 Comp Metabolic Zec878 A/ G Ratio 2.0 Ratio 12/07/2017 Comp Metabolic Xtg679 Os mo 262 mOsmo 12/07/2017 Cbc With [...] 31.0 pg 12/07/2017 Cbc With Differential Ord2 Cotton% 10.4 % 12/07/2017 Cbc With Differential Ord2 [...] 0.57 K/ul 12/07/2017 Cbc With Differential Ord2 Cotton ABS# 0.5 K/ul 12/07/2017 Cbc With Differential [...] 32.3 pg 06/21/2017 Cbc With Differential Ord2 Cotton% 10.1 % 06/21/2017 Cbc With Differential Ord2 [...] 0.65 K/ul 06/21/2017 Cbc With Differential Ord2 Cotton ABS# 0.5 K/ul 06/21/2017 Cbc With Differential Ord2 Eos ABS# 0.2 K/ul 06/21/2017 Cbc With Differential Ord2 Baso ABS# 0.0 K/ul 06/21/2017 Comp Metabolic Rja947 NA 133 mEq/L 06/21/2017 Comp Metabolic Zvf041 K 4.0 mEq/L 06/21/2017 Comp Metabolic Rpl202 CL 94 mEq/L 06/21/2017 Comp Metabolic Fcj857 CO2 25.0 mEq/L 06/21/2017 Comp Metabolic Ekp855 AN ION GAP 18 06/21/2017 Comp Metabolic Zfs779 GL UCOSE 88 mg/dL 06/21/2017 Comp Metabolic Qhu454 Cr eat 0.6 mg/dL 06/21/2017 Comp Metabolic Pbs410 eG FR 94 ml/min/1.73m2 06/21 Comp Metabolic Gfb017 BUN 16 mg/dL 06/21/2017 Comp Metabolic Zfo759 B/ C Ratio 25.0 Ratio 06/21/2017 Comp Metabolic Isc320 CA LCIUM 9.1 mg/dL 06/21/2017 Comp Metabolic Tya710 AL K PHOS 65 U/L 06/21/2017 Comp Metabolic Tsb693 T(SGOT) 31 U/L 06/21/2017 Comp Metabolic Lgm273 AL T(SGPT) 20 U/L 06/21/2017 Comp Metabolic Omc740 BI LI T 0.5 mg/dL 06/21/2017 Comp Metabolic Vpw924 AL BUMIN 4.3 g/dL 06/21/2017 Comp Metabolic Xko734 TP RO 6.6 g/dL 06/21/2017 Comp Metabolic Tfp828 GL OB 2.3 g/dL 06/21/2017 Comp Metabolic Dyp335 A/ G Ratio 1.8 Ratio 06/21/2017 Comp Metabolic Zps607 Os mo 267 mOsmo 06/21/2017 Lipid Ord30 CHOL 188 mg/dL 06/21/2017 Lipid Ord30 HDL 77.0 mg/dl 06/21/2017 Lipid Ord30 TRIG 66 mg/dL 06/21/2017 Lipid Ord30 LDL 98 mg/dL 06/21/2017 Lipid Ord30 C/HDL 2.4 Ratio 06/21/2017 Tsh Ord6 hTSH II 1.32 uIU/mL 06/21/2017 Comp Metabolic Fhe859 NA 135 mEq/L 02/09/2017 Comp Metabolic Eaw078 K 4.0 mEq/L 02/09/2017 Comp Metabolic Yua903 CL 96 mEq/L 02/09/2017 Comp Metabolic Uom344 CO2 28.0 mEq/L 02/09/2017 Comp Metabolic Ajc923 AN ION GAP 15 02/09/2017 Comp Metabolic Veh091 GL UCOSE 101 mg/dL 02/09/2017 Comp Metabolic Pka333 Cr eat 0.7 mg/dL 02/09/2017 Comp Metabolic Upb885 eG FR 83 ml/min/1.73m2 02/09 Comp Metabolic Yli766 BUN 17 mg/dL 02/09/2017 Comp Metabolic Wsy182 B/ C Ratio 23.9 Ratio 02/09/2017 Comp Metabolic Kde439 CA LCIUM 9.3 mg/dL 02/09/2017 Comp Metabolic Xan334 AL K PHOS 51 U/L 02/09/2017 Comp Metabolic Mnc054 T(SGOT) 33 U/L 02/09/2017 Comp Metabolic Cla647 AL T(SGPT) 21 U/L 02/09/2017 Comp Metabolic Qod517 BI LI T 0.6 mg/dL 02/09/2017 Comp Metabolic Kxd202 AL BUMIN 4.3 g/dL 02/09/2017 Comp Metabolic Rzv714 TP RO 6.9 g/dL 02/09/2017 Comp Metabolic Ugm640 GL OB 2.6 g/dL 02/09/2017 Comp Metabolic Svu196 A/ G Ratio 1.7 Ratio 02/09/2017 Comp Metabolic Woy507 Os mo 272 mOsmo 02/09/2017 Lipid Ord30 [...] 31.8 pg 02/09/2017 Cbc With Differential Ord2 Cotton% 11.3 % 02/09/2017 Cbc With Differential Ord2 [...] 0.77 K/ul 02/09/2017 Cbc With Differential Ord2 Cotton ABS# 0.6 K/ul 02/09/2017 Cbc With Differential [...] 31.5 pg 03/29/2016 Cbc With Differential Ord2 Cotton% 9.5 % 03/29/2016 Cbc With Differential Ord2 [...] 0.60 K/ul 03/29/2016 Cbc With Differential Ord2 Cotton ABS# 0.4 K/ul 03/29/2016 Cbc With Differential Ord2 Eos ABS# 0.1 K/ul 03/29/2016 Cbc With Differential Ord2 Baso ABS# 0.0 K/ul 03/29/2016 Comp Metabolic Pkx986 NA 135 mEq/L 03/29/2016 Comp Metabolic Ksy022 K 3.7 mEq/L 03/29/2016 Comp Metabolic Otb807 CL 96 mEq/L 03/29/2016 Comp Metabolic Cpd166 CO2 30.0 mEq/L 03/29/2016 Comp Metabolic Bqj818 AN ION GAP 13 03/29/2016 Comp Metabolic Hwh699 GL UCOSE 102 mg/dL 03/29/2016 Comp Metabolic Enh626 Cr eat 0.6 mg/dL 03/29/2016 Comp Metabolic Koh402 eG FR 94 ml/min/1.73m2 03/29 Comp Metabolic Rrd178 BUN 15 mg/dL 03/29/2016 Comp Metabolic Tpa417 B/ C Ratio 23.4 Ratio 03/29/2016 Comp Metabolic Bgr227 CA LCIUM 9.1 mg/dL 03/29/2016 Comp Metabolic Sot495 AL K PHOS 70 U/L 03/29/2016 Comp Metabolic Rua904 T(SGOT) 35 U/L 03/29/2016 Comp Metabolic Zod491 AL T(SGPT) 27 U/L 03/29/2016 Comp Metabolic Rtx344 BI LI T 0.5 mg/dL 03/29/2016 Comp Metabolic Smh689 AL BUMIN 4.2 g/dL 03/29/2016 Comp Metabolic Lke634 TP RO 6.6 g/dL 03/29/2016 Comp Metabolic Cmd189 GL OB 2.4 g/dL 03/29/2016 Comp Metabolic Hzt418 A/ G Ratio 1.7 Ratio 03/29/2016 Comp Metabolic Mps786 Os mo 271 mOsmo 03/29/2016 Tsh Ord6 hTSH II 1.17 uIU/mL 03/29/2016 B12 Alg734 B12 838.00 pg/ml 09/02/2015 Tsh Ord6 hTSH [...] Ord2 RDW 15.1 % 09/02/2015 Comp Metabolic Ekm079 NA 135 mEq/L 09/02/2015 Comp Metabolic Huc538 K 3.4 mEq/L 09/02/2015 Comp Metabolic Ish162 CL 95 mEq/L 09/02/2015 Comp Metabolic Xir931 CO2 27.0 mEq/L 09/02/2015 Comp Metabolic Xsd758 AN ION GAP 16 09/02/2015 Comp Metabolic Sbm097 GL UCOSE 94 mg/dL 09/02/2015 Comp Metabolic Xpb656 Cr eat 0.7 mg/dL 09/02/2015 Comp Metabolic Bud708 eG FR 87 ml/min/1.73m2 09/02 Comp Metabolic Kkw046 BUN 18 mg/dL 09/02/2015 Comp Metabolic Aqi278 B/ C Ratio 26.1 Ratio 09/02/2015 Comp Metabolic Dft666 CA LCIUM 9.0 mg/dL 09/02/2015 Comp Metabolic Sup755 AL K PHOS 67 U/L 09/02/2015 Comp Metabolic Yld275 T(SGOT) 30 U/L 09/02/2015 Comp Metabolic Ocg786 AL T(SGPT) 21 U/L 09/02/2015 Comp Metabolic Wvb353 BI LI T 0.6 mg/dL 09/02/2015 Comp Metabolic Wrb636 AL BUMIN 4.3 g/dL 09/02/2015 Comp Metabolic Eyx777 TP RO 6.8 g/dL 09/02/2015 Comp Metabolic Gdp524 GL OB 2.5 g/dL 09/02/2015 Comp Metabolic Ykz043 A/ G Ratio 1.7 Ratio 09/02/2015 Comp Metabolic Lum327 Os mo 272 mOsmo 09/02/2015 Lipid Ord30 [...] VACC PRSV FREE I NC ANTIG CPT-4: 14062 06/21/2018 ADMIN INFLUENZA VIRU S VAC CPT-4: G0008 06/21/2017 FLU VACC PRSV FREE I NC ANTIG CPT-4: 90420 06/21/2017 ADMIN INFLUENZA VIRU S VAC CPT-4: G0008 06/24/2016 FLU VACC 4 CRISTINE 3 YRS PLUS IM Formatting Model/CDA Sections, Assigned to/Carmen Solis SNOMED CT: 27307302 CPT-4: 06017Idshlfo 06/24/2016 ADMIN INFLUENZA VIRU S VAC CPT-4: G0008 06/19/2015 FLU VACC 4 CRISTINE 3 YRS PLUS IM Formatting Model/CDA Sections, Assigned to/Carmen Solis SNOMED CT: 71894686 CPT-4: 58256Dxqvyha 06/19/2015 Vital Signs Date Vital 12/31/2018 Blood Pressure 1: 140/52 Code: 8480-6 BMI: 16.2 Code: 25576-6 Heart Rate 1: 70 bpm Height: 5'2" SpO2: 95% Weight: 90 lbs 09/05/2018 Blood Pressure 1: 138/74 Code: 8480-6 BMI: 16.1 Code: 07440-3 Heart Rate 1: 69 bpm Height: 5'2" SpO2: 98% Weight: 89 lbs 8 oz 08/15/2018 Blood Pressure 1: 142/72 Code: 8480-6 BMI: 16.3 Code: 30502-6 Heart Rate 1: 66 bpm Height: 5'2" SpO2: 99% Weight: 90 lbs 8 oz 05/29/2018 Blood Pressure 1: 140/70 Code: 8480-6 BMI: 16.2 Code: 00307-2 Heart Rate 1: 67 bpm Height: 5'2" SpO2: 99% Weight: 90 lbs 05/14/2018 Blood Pressure 1: 146/68 Code: 8480-6 BMI: 16.0 Code: 22738-7 Heart Rate 1: 70 bpm Height: 5'2" SpO2: 98% Weight: 89 lbs 04/18/2018 Blood Pressure 1: 126/68 Code: 8480-6 BMI: 15.7 Code: 88768-8 Heart Rate 1: 81 bpm Height: 5'2" SpO2: 99% Weight: 87 lbs 01/22/2018 Blood Pressure 1: 136/76 Code: 8480-6 BMI: 15.8 Code: 85276-8 Heart Rate 1: 73 bpm Height: 5'2" SpO2: 99% Weight: 88 lbs 01/01/2018 Blood Pressure 1: 148/76 Code: 8480-6 BMI: 15.8 Code: 89590-9 Heart Rate 1: 74 bpm Height: 5'2" SpO2: 98% Weight: 88 lbs 12/12/2017 Blood Pressure 1: 140/72 Code: 8480-6 BMI: 15.8 Code: 33150-3 Heart Rate 1: 65 bpm Height: 5'2" SpO2: 96% Weight: 88 lbs 09/13/2017 Blood Pressure 1: 138/70 Code: 8480-6 BMI: 15.9 Code: 23853-3 Heart Rate 1: 74 bpm Height: 5'2" SpO2: 99% Weight: 88 lbs 8 oz 06/21/2017 Blood Pressure 1: 122/50 Code: 8480-6 BMI: 15.3 Code: 49396-6 Heart Rate 1: 69 bpm Height: 5'2" SpO2: 99% Weight: 85 lbs 05/25/2017 Blood Pressure 1: 138/72 Code: 8480-6 Heart Rate 1: 77 bpm Height: 5'2" SpO2: 98% Weight: 05/16/2017 Blood Pressure 1: 136/78 Code: 8480-6 Heart Rate 1: 86 bpm Height: 5'2" SpO2: 98% Weight: 02/15/2017 Blood Pressure 1: 144/78 Code: 8480-6 BMI: 15.4 Code: 81058-7 Heart Rate 1: 65 bpm Height: 5'2" SpO2: 98% Weight: 85 lbs 8 oz 11/22/2016 Blood Pressure 1: 140/58 Code: 8480-6 BMI: 14.8 Code: 22966-8 Heart Rate 1: 79 bpm Height: 5'2" SpO2: 99% Weight: 82 lbs 09/15/2016 BMI: 16.0 Code: 35169-9 Height: 5'2" Weight: 89 lbs 09/07/2016 Blood Pressure 1: 130/62 Code: 8480-6 BMI: 16.2 Code: 12387-8 Heart Rate 1: 71 bpm Height: 5'2" SpO2: 98% Weight: 90 lbs 07/06/2016 Blood Pressure 1: 144/76 Code: 8480-6 BMI: 15.8 Code: 66103-2 Heart Rate 1: 78 bpm Height: 5'2" SpO2: 99% Weight: 88 lbs 04/06/2016 Blood Pressure 1: 148/58 Code: 8480-6 BMI: 16.2 Code: 09018-5 Heart Rate 1: 64 bpm Height: 5'2" SpO2: 97% Weight: 90 lbs 01/06/2016 Blood Pressure 1: 146/72 Code: 8480-6 BMI: 16.6 Code: 15886-0 Heart Rate 1: 62 bpm Height: 5'2" SpO2: 99% Weight: 92 lbs 09/02/2015 Blood Pressure 1: 132/70 Code: 8480-6 BMI: 16.6 Code: 50028-5 Heart Rate 1: 77 bpm Height: 5'2" SpO2: 98% Weight: 92 lbs 06/15/2015 Blood Pressure 1: 144/60 Code: 8480-6 BMI: 16.7 Code: 88334-6 Heart Rate 1: 66 bpm Height: 5'2" SpO2: 97% Weight: 93 lbs 03/04/2015 Blood Pressure 1: 120/80 Code: 8480-6 BMI: 15.8 Code: 99221-9 Heart Rate 1: 74 bpm Height: 5'2" [...] shoulder 01/22/2018 None shoulder pain [facility] [place] 01/22/2018 None shoulder pain Quality co nstant [...] nstant 01/01/2018 None shoulder pain [facility] [place] 01/01/2018 None shoulder pain Quality wo rsening [...] triggers 02/15/2017 None Hospital Follow Up _ [facility] er: surgery follow up 11/22/2016 None [...] Encounters Encounter Performer Loca tion Codes Date 17733 EST. PATIENT, LEVEL IV Diagnosis: Dysuria[ICD10: R30.0] Kala Bradshaw MD, [facility] CPT-4: 37663 12/31/2018 ([id number]) [id number] EST. P ATIENT, LEVEL IV Diagnosis: Essential (primary) hypertension[ICD10: I10] Diagnosis: Rash and other nonspecific skin eruption[ICD10: R21] Anum Bradshaw MD, [facility] CPT-4: 39258 09/05/2018 [id number] EST. P ATIENT, LEVEL IV Diagnosis: Essential (primary) hypertension[ICD10: I10] Diagnosis: Tinea barbae and tinea capitis[ICD10: B35.0] Diagnosis: Unsteadiness on feet[ICD10: R26.81] Diagnosis: Weakness[ICD10: R53.1] Anum Bradshaw MD, [facility] CPT-4: 11696 08/15/2018 ([id number]) 22141 EST. P ATIENT, LEVEL III Diagnosis: Rash and other nonspecific skin eruption[ICD10: R21] Diagnosis: Other allergic rhinitis[ICD10: J30.89] Diagnosis: Gastro-esophageal reflux disease without esophagitis[ICD10: K21.9] Rosalinda Bradshaw MD, [facility] CPT-4: 68653 05/29/2018 ([id number]) 02219 EST. P ATIENT, LEVEL III Diagnosis: Rash and other nonspecific skin eruption[ICD10: R21] Rosalinda Bradshaw MD, [facility] CPT-4: 51000 05/14/2018 ([id number]) 48612 EST. P ATIENT, LEVEL IV Diagnosis: Essential (primary) hypertension[ICD10: I10] Diagnosis: Underweight[ICD10: R63.6] Diagnosis: Mixed hyperlipidemia[ICD10: E78.2] Anum Bradshaw MD, [facility] CPT- 4: 52885 04/18/2018 ([id number]) 11326 EST. P ATIENT, LEVEL III Diagnosis: Bicipital tendinitis, left shoulder[ICD10: M75.22] Anum Bradshaw MD, C CPT-4: 50336 01/22/2018 ([id number]) 28888 EST. P ATIENT, LEVEL III Diagnosis: Pain in right shoulder[ICD10: M25.511] Diagnosis: Bicipital tendinitis, right shoulder[ICD10: M75.21] Anum Bradshaw MD, C CPT-4: 43125 01/01/2018 ([id number]) [id number] EST. P ATIENT, LEVEL IV Diagnosis: Essential (primary) hypertension[ICD10: I10] Diagnosis: Underweight[ICD10: R63.6] Diagnosis: Mixed hyperlipidemia[ICD10: E78.2] Diagnosis: Actinic keratosis[ICD10: L57.0] Anum Bradshaw MD, [facility] CPT-4: 74203 12/12/2017 ([id number]) [id number] EST. P ATIENT, LEVEL III Diagnosis: Essential (primary) hypertension[ICD10: I10] Diagnosis: Fracture of unspecified part of neck of left femur, subsequent encounter for closed fracture with routine healing[ICD10: S72.002D] Diagnosis: Underweight[ICD10: R63.6] Anum Bradshaw MD, [facility] CPT-4: 34056 09/13/2017 ([id number]) 60552 EST. P ATIENT, LEVEL IV Diagnosis: Mixed hyperlipidemia[ICD10: E78.2] Diagnosis: Essential (primary) hypertension[ICD10: I10] Diagnosis: Vitamin B12 deficiency anemia due to intrinsic factor deficiency[ICD10: D51.0] Diagnosis: Gastro-esophageal reflux disease with esophagitis[ICD10: K21.0] Diagnosis: Age-related osteoporosis without current pathological fracture[ICD10: M81.0] Diagnosis: Encounter for immunization[ICD10: Z23] Anum Bradshaw MD, [facility] CPT-4: 64417 06/21/2017 ([id number]) [id number] EST. P ATIENT, LEVEL III Diagnosis: Fracture of unspecified part of neck of left femur, subsequent encounter for closed fracture with routine healing[ICD10: S72.002D] Diagnosis: Underweight[ICD10: R63.6] Diagnosis: Gastro-esophageal reflux disease with esophagitis[ICD10: K21.0] Anum Bradshaw MD, [facility] CPT-4: 89195 05/25/2017 ([id number]) 63179 EST. P ATIENT, LEVEL IV Diagnosis: Essential (primary) hypertension[ICD10: I10] Diagnosis: Fracture of unspecified part of neck of left femur, subsequent encounter for closed fracture with routine healing[ICD10: S72.002D] Diagnosis: Generalized anxiety disorder[ICD10: F41.1] Anum Bradshaw MD, [facility] CPT-4: 14124 05/16/2017 ([id number]) 25093 EST. P ATIENT, LEVEL IV Diagnosis: Essential (primary) hypertension[ICD10: I10] Diagnosis: Mixed hyperlipidemia[ICD10: E78.2] Diagnosis: Generalized anxiety disorder[ICD10: F41.1] Anum Bradshaw MD, [facility] CPT-4: 31955 02/15/2017 ([id number]) 99981 EST. P ATIENT, LEVEL IV Diagnosis: Mixed hyperlipidemia[ICD10: E78.2] Diagnosis: Generalized anxiety disorder[ICD10: F41.1] Diagnosis: Essential (primary) hypertension[ICD10: I10] Diagnosis: Gastro-esophageal reflux disease with esophagitis[ICD10: K21.0] Anum Bradshaw MD, [facility] CPT-4: 74013 11/22/2016 [id number] EST. PATIENT, LEVEL III Diagnosis: Inflamed seborrheic keratosis[ICD10: L82.0] Kala Bradshaw MD, [facility] CPT-4: 48472 09/15/2016 ([id number]) 90708 EST. P ATIENT, LEVEL IV Diagnosis: Essential (primary) hypertension[ICD10: I10] Diagnosis: Mixed hyperlipidemia[ICD10: E78.2] Diagnosis: Generalized anxiety disorder[ICD10: F41.1] Anum Bradshaw MD, [facility] CPT-4: 46841 09/07/2016 ([id number]) 23498 EST. P ATIENT, LEVEL IV Diagnosis: Essential (primary) hypertension[ICD10: I10] Diagnosis: Frequency of micturition[ICD10: R35.0] Diagnosis: Age-related osteoporosis without current pathological fracture[ICD10: M81.0] Anum Bradshaw MD, [facility] CPT-4: 19607 07/06/2016 ([id number]) 70214 EST. P ATIENT, LEVEL IV Diagnosis: Essential (primary) hypertension[ICD10: I10] Diagnosis: Mixed hyperlipidemia[ICD10: E78.2] Diagnosis: Gastro-esophageal reflux disease with esophagitis[ICD10: K21.0] Anum Bradshaw MD, [facility] CPT-4: 65967 04/06/2016 52222 EST. PATIENT, LEVEL IV Diagnosis: Essential (primary) hypertension[ICD10: I10] Diagnosis: Gastro-esophageal reflux disease with esophagitis[ICD10: K21.0] Kala Bradshaw MD, [facility] CPT-4: 70919 01/06/2016 ([id number]) 47976 EST. P ATIENT, LEVEL IV Diagnosis: Essential (primary) hypertension[ICD10: I10] Diagnosis: Gastro-esophageal reflux disease with esophagitis[ICD10: K21.0] Diagnosis: Other dietary vitamin B12 deficiency anemia[ICD10: D51.3] Diagnosis: Vitamin B12 deficiency anemia due to intrinsic factor deficiency[ICD10: D51.0] Diagnosis: Occlusion and stenosis of unspecified carotid artery[ICD10: I65.29] Anum Bradshaw MD, [facility] CPT-4: 52088 09/02/2015 ([id number] EST. P ATIENT, LEVEL III Diagnosis: Carpal tunnel syndrome[ICD9: 354.0] Diagnosis: Inflamed seborrheic keratosis[ICD9: 702.11] [facility] CPT-4: 36469 06/15/2015 ([id number]) OFFICE CASS [facility]sh[facility] 4 Diagnosis: ESSENTIAL HYPERTENSION[ICD9: 401.9] Diagnosis: ESOPHAGEAL REFLUX[ICD9: 530.81] Diagnosis: HYPERLIPIDEMIA[ICD9: 272.4] Anum Bradshaw MD, [facility] CPT-4: 62402 03/04/2015 Plan of Care Planned Activity Notes C odes Status Date Visit Plan: UTI - pt with positive urinalysis - culture sent if appropriate. Antibiotic electronically prescribed to pt's pharmacy of choice. Pt to call if symptoms do not improve. 12/31/2018 Patient Education: Patient Medication Summary Completed 12/31/2018 Care Plan: Urine Culture Pending 12/31/2018 Visit Plan: Hypertension - well con trolled - continue with current medications, continue with no added salt diet. Pt has been encouraged to exercise daily. The pt has been advised to call the office if there are any acute concerns about change in blood pressure readings at home. Rash on posterior scalp - rx for betamethasone. 09/05/2018 Appointment: Anum Bradshaw WPtel: [address] [place], [place] [id number] (15 min) Moderate 09/05/2018 Patient Education: Patient [...] improving. 08/15/2018 Appointment: Anum Bradshaw WPtel: [facility] (15 min) Moderate 08/15/2018 Patient Education: Patient Medication Summary Completed 08/15/2018 Patient Education: Hypertension Completed 08/15/2018 Appointment: [phone] (15 min) Moderate 2018 Appointment: Injection 06/21/2018 [...] ketoconazole shampoo 05/29/2018 Appointment: [phone] (30 min) Complex 05/29/2018 Patient Education: Patient [...] if needed 05/14/2018 Appointment: [phone] [phone] (30 min) Complex 05/14/2018 Patient Education: Patient [...] medications. 04/18/2018 Appointment: Anum Bradshaw WPtel: [phone] [facility] (15 min) Moderate 04/18/2018 Patient Education: Patient Medication Summary Completed 04/18/2018 Appointment: Injection 03/08/2018 Visit Plan: Left shoulder pain - bi cep tendonitis - continue with physical therapy at [facility]. Use voltaren gel on left shoulder now - continue with therapy on right shoulder. 01/22/2018 Appointment: Anum Bradshaw [phone] (15 min) Moderate 01/22/2018 Patient Education: Patient [...] tendonitis - referral to physical therapy at [facility] 01/01/2018 Appointment: Anum Bradshaw [facility]el[phone] [facility] [place] (15 min) Moderate 01/01/2018 Patient Education: [...] 2 weeks 12/12/2017 Appointment: Anum Bradshaw WPtel: [phone] [facility] (15 min) Moderate 12/12/2017 Patient Education: Patient [...] - healing. 09/13/2017 Appointment: [facility]um Bradshaw [phone] [facility] (15 min) Moderate 09/13/2017 Patient Education: Patient [...] the symptoms are not improving. 06/21/2017 Appointment: Leeann Anum WPtel: [facility] (15 min) Moderate 06/21/2017 Patient Education: Patient Medication Summary Completed 06/21/2017 Visit Plan: Esophageal Reflux - the patient has been taking medication as directed and her symptoms are improved. Hip fracture - continue with supportive care, nonweight bearing. Underweight - increase protein intake, higher calorie diet, use wheelchair to decrease excessive caloric expenditure. 05/25/2017 Appointment: Fleming Anum WPtel: [phone] [phone] (15 min) Moderate 05/25/2017 Patient Education: Patient [...] medications. 05/16/2017 Appointment: Anum Bradshaw WPtel: [phone] [facility] (15 min) Moderate 05/16/2017 Patient Education: Patient [...] to medications. 02/15/2017 Appointment: Anum Bradshaw WPtel: [phone] [facility] (15 min) Moderate 02/15/2017 Patient Education: Patient Medication Summary Completed 02/15/2017 Patient Education: Hypertension Completed 02/15/2017 Care Plan: Referral Order SNOMED-CT : [id number] Pending 02/15/2017 Appointment: Anum Bradshaw WPtel: [phone] [phone] (15 min) Moderate 01/11/2017 Visit Plan: Hypertension [...] current treatment 11/22/2016 Appointment: [facility]um [facility]shaw [phone] (15 min) Moderate 11/22/2016 Patient Education: Patient Medication Summary Completed 11/22/2016 Patient Education: Hypertension Completed 11/22/2016 Appointment: Rosalinda Bermudez WPtel: [phone] [phone] [place] (30 min) Complex 09/16/2016 Visit [...] monitor symptoms. 09/07/2016 Appointment: Anum Bradshaw WPtel: [facility] (15 min) Moderate 09/07/2016 Patient Education: Patient [...] ua negative 07/06/2016 Appointment: Anum Bradshaw WPtel: [phone] [facility] (15 min) Moderate 07/06/2016 Patient Education: Patient Medication Summary Completed 07/06/2016 Patient Education: Hypertension Completed 07/06/2016 Appointment: Injection 06/24/2016 Patient Education: Patient Medication Summary Completed 06/24/2016 Visit Plan: Hypertension - mike gonzales - [...] not improving. 04/06/2016 Appointment: Anum Bradshaw WPtel: [address] [place] [address] (15 min) Moderate 04/06/2016 Patient Education: Patient [...] 09/02/2015 Care Plan: Referral Order SNOMED-CT : [id number] Ordered 09/02/2015 Appointment: Injection 06/19/2015 Patient Education: [...] other acute concerns. 06/15/2015 Appointment: (15 min) [place] 06/15/2015 Patient Education: Patient Medication Summary Completed [...] the symptoms are not improving. 03/04/2015 Appointment: Leeann Anum [facility]Ptel[phone] [facility] [place] ([place]) New Patient 03/04/2015 Patient Education: [...] - referral to physical therapy at [facility] . Hypertension - wel l controlled - [...] tendonitis - continue with physical therapy at [facility]. Use voltaren gel on left shoulder now [...]
--- OUTSIDE RECORDS SUMMARY | 2019-12-29 11:23 | XMS REPORT | CCD ---
Author Author Ashley Bradshaw Organization [facility] Address [address] [place] [address] Phone Care Team Providers Care Putter In Name Role Phone PP Unavailable CCM Unavailable Summary Purpose Interface Exchange Insurance Providers Payer name Policy type / Coverage type Covered constitution party ID Effective Begin Date Effective End Date WPS Medicare Part B Medicare Part B [id number] Unknown Unknown CIGNA Medicare Part B [id number] Unknown Unknown Family history Father Diagnosis Age At Onset Coronary Artery Disease Unknown Mother Diagnosis Age At Onset Anemia Unknown Skin cancer Unknown Hypertension Unknown Cancer Unknown Breast cancer Unknown Social History Social History Element Codes Description Effective Dates Marital status Unknown M arried Shahram 03/04/2015 Number of children Unknown 3 03/04/[address]: 674942503 Never smoker 03/04/[address]: 692731911 Never drinks alcohol 03/04/2015 Allergies, Adverse Reactions, Alerts Substance Reaction Codes Entered Date Inactivated Date Status NEOSPORIN RxNorm: 724799 01/06/2016 No Inactive Date Active Past Medical [...] Date Stop Date Sta tus Fill Instructions Zantac 150 mg tablet RxNorm: 557295 1 Tablet(s) PO BID 11/02/2018 12/01/2018 Active Zantac 150 mg tablet RxNorm: 837036 1 Tablet(s) PO BID 11/02/2018 11/01/2018 Inactive sucralfate 100 mg/mL oral suspension RxNorm: 091780 10 Milliliter(s) per 1 gram PO QID 10/08/2018 10/02/2019 Active diltiazem 30 mg tablet RxNorm: 045761 1 Tablet(s) PO QID 10/08/2018 10/02/2019 Active betamethasone nasir te 0.1 % topical cream RxNorm: 928423 1 Application TOP BID 09/05/2018 11/03/2018 Ac tive ketoconazole 2 % top ical cream RxNorm: 770529 1 Application TOP BID to posterior scalp x 2 weeks or until the skin is healed 08/15/2018 08/28/2018 Inactive triamterene 37.5 mg- hydrochlorothiazide 25 mg tablet RxNorm: 928316 Tablet(s) 1 Tablet(s) PO daily 07/12/2018 01/07/2019 Active PLEASE SEND REFILL REQUESTS ELECTRONICALLY simvastatin 20 mg ta blet RxNorm: 637092 TAKE 1 TABLET BY MOUT H EVERY DAY 07/12/2018 01/07/2019 Ac tive ketoconazole 2 % sha mpoo RxNorm: 533362 1 Application TOP BIW 05/14/2018 No Stop Date Active simvastatin 20 mg ta blet RxNorm: 416209 TAKE 1 TABLET BY MOUT H EVERY DAY 03/01/2018 07/11/2018 In active triamterene 37.5 mg- hydrochlorothiazide 25 mg tablet RxNorm: 390791 Tablet(s) 1 Tablet(s) PO daily 02/06/2018 07/11/2018 Inactive PLEASE SEND REFILL REQUESTS ELECTRONICALLY Voltaren 1 % topical gel RxNorm: 637248 2 Gram(s) TOP TID to shoulders 01/01/2018 04/30/2018 In active sucralfate 100 mg/mL oral suspension RxNorm: 569915 10 Milliliter(s) per 1 gram PO QID 12/12/2017 06/09/2018 Inactive refill 3 month supply- 1gm/10ml simvastatin 20 mg ta blet RxNorm: 269852 TAKE 1 TABLET BY MOUT H EVERY DAY 12/04/2017 02/28/2018 In active escitalopram 5 mg ta blet RxNorm: 354167 1 Tablet(s) PO QPM 10/26/2017 01/18/2019 Active esomeprazole magnesi um 40 mg capsule,delayed release RxNorm: 898840 TAKE 1 CAPSULE BY MOUTH DAILY 10/26/2017 11/01/2018 Inactive mupirocin 2 % topica l ointment RxNorm: 828771 APPLY TO AFFECTED ARE A(S) ONCE DAILY 10/16/2017 11/28/2017 In active diltiazem 30 mg tablet RxNorm: 093295 1 Tablet(s) PO QID 10/09/2017 10/03/2018 Inactive triamterene 37.5 mg- hydrochlorothiazide 25 mg tablet RxNorm: 573284 1 Tablet(s) PO daily 07/28/2017 01/23/2018 Inactive fluticasone 50 mcg/a ctuation nasal spray,suspension RxNorm: 7703392 2 [place] NASAL daily 07/20/2017 01/15/2018 Inactive diltiazem 30 mg tablet RxNorm: 405531 1 Tablet(s) PO QID TAKE 1 TABLET BY MOUT H FOUR TIMES DAILY 07/13/2017 10/08/2017 Inactive simvastatin 20 mg ta blet RxNorm: 791625 TAKE 1 TABLET BY MOUT H EVERY DAY 06/08/2017 12/03/2017 In active Nexium 40 mg capsule ,delayed release RxNorm: 105309 1 Capsule(s) PO daily 05/25/2017 11/27/2017 In active esomeprazole magnesi um 40 mg capsule,delayed release RxNorm: 072821 Capsule(s) TAKE 1 CAPSULE BY MOUTH DAILY 05/17/2017 02/10/2018 Inactive diltiazem 30 mg tablet RxNorm: 057959 Tablet(s) TAKE 1 TABLET BY MOUTH FOUR TI MES DAILY 05/16/2017 07/12/2017 Inactive diltiazem 30 mg tablet RxNorm: 484786 TAKE 1 TABLET BY MOUTH THREE TIMES DAILY 02/09/2017 05/15/2017 In active Zofran ODT 4 mg disi ntegrating tablet RxNorm: 387702 1 Tablet(s) PO Q6 as needed 11/16/2016 11/22/2016 In active Protonix 40 mg table t,delayed release RxNorm: 084004 1 Tablet(s) PO daily 11/16/2016 12/15/2016 In active Protonix 40 mg table t,delayed release RxNorm: 632835 1 Tablet(s) PO daily 11/16/2016 11/15/2016 In active Zofran ODT 4 mg disi ntegrating tablet RxNorm: 915618 1 Tablet(s) PO Q6 as needed 11/16/2016 11/15/2016 In active escitalopram 5 mg ta blet RxNorm: 068970 1 Tablet(s) PO QPM 10/28/2016 10/22/2017 Inactive escitalopram 5 mg ta blet RxNorm: 917733 1 Tablet(s) PO QPM 10/05/2016 10/27/2016 Inactive mupirocin 2 % topica l ointment RxNorm: 545161 1 Application TOP yao ly APPLY TO AFFECTED AREA(S) TOPICALLY DAILY 09/07/2016 11/05/2016 Inactive Efudex 5 % topical c ream RxNorm: 867139 1 TOP BID 09/07/2016 09/16/2016 Inactive escitalopram 5 mg ta blet RxNorm: 902571 1 Tablet(s) PO QPM 09/07/2016 10/04/2016 Inactive sucralfate 100 mg/mL oral suspension RxNorm: 419300 10 Milliliter(s) per 1 gram PO QID 08/03/2016 07/28/2017 Inactive refill 3 month supply- 1gm/10ml clorazepate dipotass ium 3.75 mg tablet RxNorm: 549589 1 Tablet(s) PO QHS as needed insomnia 07/06/2016 08/14/2018 Inactive triamterene 37.5 mg- hydrochlorothiazide 25 mg tablet RxNorm: 834279 1 Tablet(s) PO daily 06/29/2016 06/23/2017 Inactive Nexium 40 mg capsule ,delayed release RxNorm: 056291 1 Capsule(s) PO daily 06/29/2016 07/05/2016 In active Bactroban 2 % topica l ointment RxNorm: 262296 APPLY TO AFFECTED ARE A(S) TOPICALLY DAILY 06/22/2016 09/06/2016 Inactive esomeprazole magnesi um 40 mg capsule,delayed release RxNorm: 229873 TAKE 1 CAPSULE BY MOUTH DAILY 06/13/2016 03/09/2017 Inactive simvastatin 20 mg ta blet RxNorm: 352645 1 Tablet(s) PO daily 05/16/2016 06/07/2017 Inactive simvastatin 20 mg ta blet RxNorm: 538363 1 Tablet(s) PO daily 05/12/2016 05/15/2016 Inactive famotidine 40 mg tablet RxNorm: 241397 TAKE 1 TABLET BY MOUTH DAILY 05/05/2016 01/29/2017 Inactive Bactroban 2 % topica l ointment RxNorm: 894606 APPLY TO AFFECTED ARE A(S) TOPICALLY DAILY 04/25/2016 05/01/2016 Inactive fluticasone 50 mcg/a ctuation nasal spray,suspension RxNorm: 3252393 2 [place] NASAL daily 03/23/2016 09/18/2016 Inactive fluticasone 50 mcg/a ctuation nasal spray,suspension RxNorm: 628847 2 [place] NASAL daily 03/07/2016 03/22/2016 Inactive Bactroban 2 % topica l ointment RxNorm: 323082 APPLY TO AFFECTED ARE A(S) TOPICALLY DAILY 02/29/2016 03/06/2016 Inactive diltiazem 30 mg tablet RxNorm: 502977 1 Tablet(s) PO TID 02/18/2016 02/08/2017 Inactive Bactroban 2 % topica l ointment RxNorm: 189534 1 Application TOP 01/08/2016 02/28/2016 Inactive clorazepate dipotass ium 3.75 mg tablet RxNorm: 110032 1 Tablet(s) PO daily 12/14/2015 06/10/2016 In active fluticasone 50 mcg/a ctuation nasal spray,suspension RxNorm: 494374 2 [place] NASAL daily 12/14/2015 02/11/2016 Inactive diltiazem 30 mg tablet RxNorm: 130121 1 Tablet(s) PO TID 09/03/2015 02/17/2016 Inactive simvastatin 20 mg ta blet RxNorm: 397098 1 Tablet(s) PO daily 08/24/2015 05/11/2016 Inactive triamterene 37.5 mg- hydrochlorothiazide 25 mg tablet RxNorm: 183993 1 Tablet(s) PO daily 07/09/2015 06/28/2016 Inactive clorazepate dipotass ium 15 mg tablet RxNorm: 185757 1 Tablet(s) PO daily 07/06/2015 07/06/2015 In active clorazepate dipotass ium 3.75 mg tablet RxNorm: 067075 1 Tablet(s) PO daily 07/06/2015 12/13/2015 In active esomeprazole magnesi um 40 mg capsule,delayed release RxNorm: 555121 1 Capsule(s) PO daily 06/26/2015 06/12/2016 Inactive famotidine 40 mg tablet RxNorm: 118598 1 Tablet(s) PO daily 06/26/2015 05/04/2016 Inactive diltiazem 30 mg tablet RxNorm: 809613 1 Tablet(s) PO TID 06/09/2015 09/02/2015 Inactive sucralfate 100 mg/mL oral suspension RxNorm: 999105 10 Milliliter(s) per 1 gram PO QID 04/28/2015 04/21/2016 Inactive refill 3 month supply- 1gm/10ml member I d [id number] sucralfate 100 mg/mL oral suspension RxNorm: 860655 10 Milliliter(s) per 1 gram PO QID 04/27/2015 04/27/2015 Inactive refill 3 month supply diltiazem 30 mg tablet RxNorm: 230494 1 Tablet(s) PO TID 02/18/2015 02/17/2015 Inactive diltiazem 30 mg tablet RxNorm: 429722 1 Tablet(s) PO TID 02/18/2015 05/18/2015 Inactive Vitamin D3 2,000 uni t tablet RxNorm: 550152 Tablet(s) PO daily No Start Date Active Nidia ODT oral RxNorm: 939755 oral No Start Date Active PreserVision Lutein oral RxNorm: [address] art Date Active Calcium 500 + D oral RxNorm: 014261 oral No Start Date Active ketoconazole 2 % sha mpoo RxNorm: 967380 1 TOP daily No Start Date Active ketoconazole 2 % sha mpoo RxNorm: 580704 TOP No St art Date Active melatonin 5 mg tablet RxNorm: 994267 Tablet(s) PO QHS as needed No Start Date Active vitamin B6-vitamin E -magnesium oral RxNorm: 357754 oral No S tart Date Active famotidine 40 mg tablet RxNorm: 882683 1 Tablet(s) PO daily No Start Date 06/25/2015 Inactive clorazepate dipotass ium 3.75 mg tablet RxNorm: 756930 1 Tablet(s) PO daily No Start Date 07/05/2015 Inactive Bactroban 2 % topica l ointment RxNorm: 744001 1 Application TOP No Start Date 01/07/2016 Inactive Carafate 1 gram tablet RxNorm: 600309 1 Tablet(s) PO QID No Start Date 04/26/2015 Inactive Zyrtec 10 mg tablet RxNorm: 3187585 1 Tablet(s) PO daily No Start Date 08/14/2018 Inactive esomeprazole magnesi um 40 mg capsule,delayed release RxNorm: 804502 Capsule(s) PO daily No Start Date 06/25/2015 Inactive fluticasone 50 mcg/a ctuation nasal spray,suspension RxNorm: 599238 2 [place] NASAL daily No Start Date 12/13/2015 Inactive Nexium 40 mg capsule ,delayed release RxNorm: 460879 1 Capsule(s) PO daily No Start Date 06/28/2016 Inactive triamterene 37.5 mg- hydrochlorothiazide 25 mg tablet RxNorm: 597693 1 Tablet(s) PO daily No Start Date 07/08/2015 Inactive simvastatin 20 mg ta blet RxNorm: 573394 1 Tablet(s) PO daily No Start Date [...] Visit Reason For Visit Effective Dates Notes rash 09/05/2018 hypertension 08/15/2018 vaccination against influenza [...] 31.4 pg 04/18/2018 Cbc With Differential Ord2 [place]% 9.2 % 04/18/2018 Cbc With Differential Ord2 [...] 0.76 K/ul 04/18/2018 Cbc With Differential Ord2 [place] ABS# 0.5 K/ul 04/18/2018 Cbc With Differential [...] Ord15 CALCIUM 9.1 mg/dL 04/18/2018 Comp Metabolic Ntq442 NA 130 mEq/L 12/07/2017 Comp Metabolic Vhj017 K 3.6 mEq/L 12/07/2017 Comp Metabolic Jdk132 CL 91 mEq/L 12/07/2017 Comp Metabolic Gvc281 CO2 29.0 mEq/L 12/07/2017 Comp Metabolic Ihl752 AN ION GAP 14 12/07/2017 Comp Metabolic Dix210 GL UCOSE 105 mg/dL 12/07/2017 Comp Metabolic Acy810 Cr eat 0.6 mg/dL 12/07/2017 Comp Metabolic Avh601 eG FR 94 ml/min/1.73m2 12/07 Comp Metabolic Xul838 BUN 15 mg/dL 12/07/2017 Comp Metabolic Xdi871 B/ C Ratio 23.4 Ratio 12/07/2017 Comp Metabolic Cbj140 CA LCIUM 9.3 mg/dL 12/07/2017 Comp Metabolic Uda441 AL K PHOS 62 U/L 12/07/2017 Comp Metabolic Thn452 T(SGOT) 31 U/L 12/07/2017 Comp Metabolic Kln441 AL T(SGPT) 22 U/L 12/07/2017 Comp Metabolic Ufb531 BI LI T 0.4 mg/dL 12/07/2017 Comp Metabolic Wqm946 AL BUMIN 4.3 g/dL 12/07/2017 Comp Metabolic Ksz910 TP RO 6.5 g/dL 12/07/2017 Comp Metabolic Hxq231 GL OB 2.2 g/dL 12/07/2017 Comp Metabolic Dvs887 A/ G Ratio 2.0 Ratio 12/07/2017 Comp Metabolic Umr675 Os mo 262 mOsmo 12/07/2017 Cbc With [...] 12.3 % 12/07/2017 Cbc With Differential Ord2 [place]% 10.4 % 12/07/2017 Cbc With Differential Ord2 MCH 31.0 pg 12/07/2017 Cbc With Differential Ord2 Eos% 3.7 % 12/07/2017 Cbc With Differential Ord2 MCHC 33.1 pg 12/07/2017 Cbc With Differential Ord2 Baso% 0.4 % 12/07/2017 Cbc With Differential Ord2 PLT 301 K/ul 12/07/2017 Cbc With Differential Ord2 Neut ABS# 3.38 K/ul 12/07/2017 Cbc With Differential Ord2 RDW 13.7 % 12/07/2017 Cbc With Differential Ord2 Lymph ABS# 0.57 K/ul 12/07/2017 Cbc With Differential Ord2 [place] ABS# 0.5 K/ul 12/07/2017 Cbc With Differential [...] 32.3 pg 06/21/2017 Cbc With Differential Ord2 [place]% 10.1 % 06/21/2017 Cbc With Differential Ord2 MCHC 34.4 pg 06/21/2017 Cbc With Differential Ord2 Eos% 3.8 % 06/21/2017 Cbc With Differential Ord2 Baso% 0.2 % 06/21/2017 Cbc With Differential Ord2 PLT 317 K/ul 06/21/2017 Cbc With Differential Ord2 RDW 14.4 % 06/21/2017 Cbc With Differential Ord2 Neut ABS# 3.18 K/ul 06/21/2017 Cbc With Differential Ord2 Lymph ABS# 0.65 K/ul 06/21/2017 Cbc With Differential Ord2 [place] ABS# 0.5 K/ul 06/21/2017 Cbc With Differential Ord2 Eos ABS# 0.2 K/ul 06/21/2017 Cbc With Differential Ord2 Baso ABS# 0.0 K/ul 06/21/2017 Comp Metabolic Mit617 NA 133 mEq/L 06/21/2017 Comp Metabolic Cvm648 K 4.0 mEq/L 06/21/2017 Comp Metabolic Rby474 CL 94 mEq/L 06/21/2017 Comp Metabolic Tcb021 CO2 25.0 mEq/L 06/21/2017 Comp Metabolic Azx974 AN ION GAP 18 06/21/2017 Comp Metabolic Pgh349 GL UCOSE 88 mg/dL 06/21/2017 Comp Metabolic Hlg003 Cr eat 0.6 mg/dL 06/21/2017 Comp Metabolic Ila343 eG FR 94 ml/min/1.73m2 06/21 Comp Metabolic Krl484 BUN 16 mg/dL 06/21/2017 Comp Metabolic Hxn411 B/ C Ratio 25.0 Ratio 06/21/2017 Comp Metabolic Pyy356 CA LCIUM 9.1 mg/dL 06/21/2017 Comp Metabolic Zgy213 AL K PHOS 65 U/L 06/21/2017 Comp Metabolic Iyl174 T(SGOT) 31 U/L 06/21/2017 Comp Metabolic Jvf498 AL T(SGPT) 20 U/L 06/21/2017 Comp Metabolic Oac137 BI LI T 0.5 mg/dL 06/21/2017 Comp Metabolic Iep738 AL BUMIN 4.3 g/dL 06/21/2017 Comp Metabolic Fjc845 TP RO 6.6 g/dL 06/21/2017 Comp Metabolic Arw767 GL OB 2.3 g/dL 06/21/2017 Comp Metabolic Ips885 A/ G Ratio 1.8 Ratio 06/21/2017 Comp Metabolic Scs025 Os mo 267 mOsmo 06/21/2017 Lipid Ord30 CHOL 188 mg/dL 06/21/2017 Lipid Ord30 HDL 77.0 mg/dl 06/21/2017 Lipid Ord30 TRIG 66 mg/dL 06/21/2017 Lipid Ord30 LDL 98 mg/dL 06/21/2017 Lipid Ord30 C/HDL 2.4 Ratio 06/21/2017 Tsh Ord6 hTSH II 1.32 uIU/mL 06/21/2017 Comp Metabolic Prm142 NA 135 mEq/L 02/09/2017 Comp Metabolic Dfo729 K 4.0 mEq/L 02/09/2017 Comp Metabolic Yde319 CL 96 mEq/L 02/09/2017 Comp Metabolic Twt215 CO2 28.0 mEq/L 02/09/2017 Comp Metabolic Ysk320 AN ION GAP 15 02/09/2017 Comp Metabolic Osv178 GL UCOSE 101 mg/dL 02/09/2017 Comp Metabolic Jvs453 Cr eat 0.7 mg/dL 02/09/2017 Comp Metabolic Icp682 eG FR 83 ml/min/1.73m2 02/09 Comp Metabolic Swp601 BUN 17 mg/dL 02/09/2017 Comp Metabolic Opt852 B/ C Ratio 23.9 Ratio 02/09/2017 Comp Metabolic Zam507 CA LCIUM 9.3 mg/dL 02/09/2017 Comp Metabolic Kmo570 AL K PHOS 51 U/L 02/09/2017 Comp Metabolic Deh468 T(SGOT) 33 U/L 02/09/2017 Comp Metabolic Ewa914 AL T(SGPT) 21 U/L 02/09/2017 Comp Metabolic Czp261 BI LI T 0.6 mg/dL 02/09/2017 Comp Metabolic Mvo363 AL BUMIN 4.3 g/dL 02/09/2017 Comp Metabolic Hic697 TP RO 6.9 g/dL 02/09/2017 Comp Metabolic Svh488 GL OB 2.6 g/dL 02/09/2017 Comp Metabolic Ris385 A/ G Ratio 1.7 Ratio 02/09/2017 Comp Metabolic Cfb503 Os mo 272 mOsmo 02/09/2017 Lipid Ord30 [...] 12.9 g/dl 02/09/2017 Cbc With Differential Ord2 Neut% 70.8 % 02/09/2017 Cbc With Differential Ord2 HCT 38.3 % 02/09/2017 Cbc With Differential Ord2 Lymph% 15.0 % 02/09/2017 Cbc With Differential Ord2 MCV 94.3 fl 02/09/2017 Cbc With Differential Ord2 [place]% 11.3 % 02/09/2017 Cbc With Differential Ord2 MCH 31.8 pg 02/09/2017 Cbc With Differential Ord2 Eos% 2.5 % 02/09/2017 Cbc With Differential Ord2 MCHC 33.7 pg 02/09/2017 Cbc With Differential Ord2 Baso% 0.4 % 02/09/2017 Cbc With Differential Ord2 PLT 279 K/ul 02/09/2017 Cbc With Differential Ord2 RDW 14.0 % 02/09/2017 Cbc With Differential Ord2 Neut ABS# 3.63 K/ul 02/09/2017 Cbc With Differential Ord2 Lymph ABS# 0.77 K/ul 02/09/2017 Cbc With Differential Ord2 [place] ABS# 0.6 K/ul 02/09/2017 Cbc With Differential [...] 31.5 pg 03/29/2016 Cbc With Differential Ord2 [place]% 9.5 % 03/29/2016 Cbc With Differential Ord2 [...] 0.60 K/ul 03/29/2016 Cbc With Differential Ord2 [place] ABS# 0.4 K/ul 03/29/2016 Cbc With Differential Ord2 Eos ABS# 0.1 K/ul 03/29/2016 Cbc With Differential Ord2 Baso ABS# 0.0 K/ul 03/29/2016 Comp Metabolic Wdv279 NA 135 mEq/L 03/29/2016 Comp Metabolic Jwz735 K 3.7 mEq/L 03/29/2016 Comp Metabolic Rrd193 CL 96 mEq/L 03/29/2016 Comp Metabolic Ibo343 CO2 30.0 mEq/L 03/29/2016 Comp Metabolic Xcf256 AN ION GAP 13 03/29/2016 Comp Metabolic Lgs306 GL UCOSE 102 mg/dL 03/29/2016 Comp Metabolic Vxf850 Cr eat 0.6 mg/dL 03/29/2016 Comp Metabolic Izv514 eG FR 94 ml/min/1.73m2 03/29 Comp Metabolic Kkd942 BUN 15 mg/dL 03/29/2016 Comp Metabolic Lmw497 B/ C Ratio 23.4 Ratio 03/29/2016 Comp Metabolic Shg527 CA LCIUM 9.1 mg/dL 03/29/2016 Comp Metabolic Aim265 AL K PHOS 70 U/L 03/29/2016 Comp Metabolic Qhq480 T(SGOT) 35 U/L 03/29/2016 Comp Metabolic Jhd681 AL T(SGPT) 27 U/L 03/29/2016 Comp Metabolic Wwk418 BI LI T 0.5 mg/dL 03/29/2016 Comp Metabolic Sqs941 AL BUMIN 4.2 g/dL 03/29/2016 Comp Metabolic Msi294 TP RO 6.6 g/dL 03/29/2016 Comp Metabolic Toi543 GL OB 2.4 g/dL 03/29/2016 Comp Metabolic Vte280 A/ G Ratio 1.7 Ratio 03/29/2016 Comp Metabolic Rlw782 Os mo 271 mOsmo 03/29/2016 Tsh Ord6 hTSH II 1.17 uIU/mL 03/29/2016 B12 Oou887 B12 838.00 pg/ml 09/02/2015 Tsh Ord6 hTSH [...] Ord2 RDW 15.1 % 09/02/2015 Comp Metabolic Utj931 NA 135 mEq/L 09/02/2015 Comp Metabolic Foy699 K 3.4 mEq/L 09/02/2015 Comp Metabolic Uty305 CL 95 mEq/L 09/02/2015 Comp Metabolic Xla319 CO2 27.0 mEq/L 09/02/2015 Comp Metabolic Swe596 AN ION GAP 16 09/02/2015 Comp Metabolic Ipc706 GL UCOSE 94 mg/dL 09/02/2015 Comp Metabolic Poi592 Cr eat 0.7 mg/dL 09/02/2015 Comp Metabolic Alu920 eG FR 87 ml/min/1.73m2 09/02 Comp Metabolic Ecx211 BUN 18 mg/dL 09/02/2015 Comp Metabolic Ecn523 B/ C Ratio 26.1 Ratio 09/02/2015 Comp Metabolic Zvk578 CA LCIUM 9.0 mg/dL 09/02/2015 Comp Metabolic Iqy633 AL K PHOS 67 U/L 09/02/2015 Comp Metabolic Cly393 T(SGOT) 30 U/L 09/02/2015 Comp Metabolic Nli170 AL T(SGPT) 21 U/L 09/02/2015 Comp Metabolic Rdo078 BI LI T 0.6 mg/dL 09/02/2015 Comp Metabolic Rsf567 AL BUMIN 4.3 g/dL 09/02/2015 Comp Metabolic Mfu785 TP RO 6.8 g/dL 09/02/2015 Comp Metabolic Nwi161 GL OB 2.5 g/dL 09/02/2015 Comp Metabolic Noy410 A/ G Ratio 1.7 Ratio 09/02/2015 Comp Metabolic Pbp519 Os mo 272 mOsmo 09/02/2015 Lipid Ord30 CHOL 181 mg/dL 09/02/2015 Lipid Ord30 HDL 66.0 mg/dl 09/02/2015 Lipid Ord30 TRIG 77 mg/dL 09/02/2015 Lipid Ord30 LDL 100 mg/dL 09/02/2015 Lipid Ord30 C/HDL 2.7 Ratio 09/02/2015 Review of Systems System Result Effective Dates Constitutional No recent illness 09/05/2018 Constitutional No [...] VACC PRSV FREE I NC ANTIG CPT-4: 38707 06/21/2018 ADMIN INFLUENZA VIRU S VAC CPT-4: G0008 06/21/2017 FLU VACC PRSV FREE I NC ANTIG CPT-4: 54190 06/21/2017 ADMIN INFLUENZA VIRU S VAC CPT-4: G0008 06/24/2016 FLU VACC 4 CRISTINE 3 YRS PLUS IM Formatting Model/CDA Sections, Assigned to/Carmen Solis SNOMED CT: 60208831 CPT-4: 51002Duexddk 06/24/2016 ADMIN INFLUENZA VIRU S VAC CPT-4: G0008 06/19/2015 FLU VACC 4 CRISTINE 3 YRS PLUS IM Formatting Model/CDA Sections, Assigned to/Carmen Solis SNOMED CT: 04639046 CPT-4: 42517Vryucbb 06/19/2015 Vital Signs Date Vital 09/05/2018 Blood Pressure 1: 138/74 Code: 8480-6 BMI: 16.1 Code: 23344-5 Heart Rate 1: 69 bpm Height: 5'2" SpO2: 98% Weight: 89 lbs 8 oz 08/15/2018 Blood Pressure 1: 142/72 Code: 8480-6 BMI: 16.3 Code: 00051-8 Heart Rate 1: 66 bpm Height: 5'2" SpO2: 99% Weight: 90 lbs 8 oz 05/29/2018 Blood Pressure 1: 140/70 Code: 8480-6 BMI: 16.2 Code: 15505-5 Heart Rate 1: 67 bpm Height: 5'2" SpO2: 99% Weight: 90 lbs 05/14/2018 Blood Pressure 1: 146/68 Code: 8480-6 BMI: 16.0 Code: 31164-5 Heart Rate 1: 70 bpm Height: 5'2" SpO2: 98% Weight: 89 lbs 04/18/2018 Blood Pressure 1: 126/68 Code: 8480-6 BMI: 15.7 Code: 62127-2 Heart Rate 1: 81 bpm Height: 5'2" SpO2: 99% Weight: 87 lbs 01/22/2018 Blood Pressure 1: 136/76 Code: 8480-6 BMI: 15.8 Code: 20746-0 Heart Rate 1: 73 bpm Height: 5'2" SpO2: 99% Weight: 88 lbs 01/01/2018 Blood Pressure 1: 148/76 Code: 8480-6 BMI: 15.8 Code: 61461-1 Heart Rate 1: 74 bpm Height: 5'2" SpO2: 98% Weight: 88 lbs 12/12/2017 Blood Pressure 1: 140/72 Code: 8480-6 BMI: 15.8 Code: 60336-4 Heart Rate 1: 65 bpm Height: 5'2" SpO2: 96% Weight: 88 lbs 09/13/2017 Blood Pressure 1: 138/70 Code: 8480-6 BMI: 15.9 Code: 84758-5 Heart Rate 1: 74 bpm Height: 5'2" SpO2: 99% Weight: 88 lbs 8 oz 06/21/2017 Blood Pressure 1: 122/50 Code: 8480-6 BMI: 15.3 Code: 39975-6 Heart Rate 1: 69 bpm Height: 5'2" SpO2: 99% Weight: 85 lbs 05/25/2017 Blood Pressure 1: 138/72 Code: 8480-6 Heart Rate 1: 77 bpm Height: 5'2" SpO2: 98% Weight: 05/16/2017 Blood Pressure 1: 136/78 Code: 8480-6 Heart Rate 1: 86 bpm Height: 5'2" SpO2: 98% Weight: 02/15/2017 Blood Pressure 1: 144/78 Code: 8480-6 BMI: 15.4 Code: 65596-0 Heart Rate 1: 65 bpm Height: 5'2" SpO2: 98% Weight: 85 lbs 8 oz 11/22/2016 Blood Pressure 1: 140/58 Code: 8480-6 BMI: 14.8 Code: 51226-2 Heart Rate 1: 79 bpm Height: 5'2" SpO2: 99% Weight: 82 lbs 09/15/2016 BMI: 16.0 Code: 08805-0 Height: 5'2" Weight: 89 lbs 09/07/2016 Blood Pressure 1: 130/62 Code: 8480-6 BMI: 16.2 Code: 44239-2 Heart Rate 1: 71 bpm Height: 5'2" SpO2: 98% Weight: 90 lbs 07/06/2016 Blood Pressure 1: 144/76 Code: 8480-6 BMI: 15.8 Code: 19160-0 Heart Rate 1: 78 bpm Height: 5'2" SpO2: 99% Weight: 88 lbs 04/06/2016 Blood Pressure 1: 148/58 Code: 8480-6 BMI: 16.2 Code: 35521-6 Heart Rate 1: 64 bpm Height: 5'2" SpO2: 97% Weight: 90 lbs 01/06/2016 Blood Pressure 1: 146/72 Code: 8480-6 BMI: 16.6 Code: 66968-9 Heart Rate 1: 62 bpm Height: 5'2" SpO2: 99% Weight: 92 lbs 09/02/2015 Blood Pressure 1: 132/70 Code: 8480-6 BMI: 16.6 Code: 21605-3 Heart Rate 1: 77 bpm Height: 5'2" SpO2: 98% Weight: 92 lbs 06/15/2015 Blood Pressure 1: 144/60 Code: 8480-6 BMI: 16.7 Code: 67894-5 Heart Rate 1: 66 bpm Height: 5'2" SpO2: 97% Weight: 93 lbs 03/04/2015 Blood Pressure 1: 120/80 Code: 8480-6 BMI: 15.8 Code: 31571-2 Heart Rate 1: 74 bpm Height: 5'2" Weight: 88 lbs Functional Status No Functional Status data History of Present Illness Symptom Name Status Resu lt Effective Date Notes Quality recurrent 09/05/2018 None Quality pruritic 09/05/2018 [...] Encounters Encounter Performer Loca tion Codes Date ([id number]) [id number] EST. P ATIENT, LEVEL IV Diagnosis: Essential (primary) hypertension[ICD10: I10] Diagnosis: Rash and other nonspecific skin eruption[ICD10: R21] Anum Bradshaw MD, [facility] CPT-4: 09839 09/05/2018 ([id number]) [id number] EST. P ATIENT, LEVEL IV Diagnosis: Essential (primary) hypertension[ICD10: I10] Diagnosis: Tinea barbae and tinea capitis[ICD10: B35.0] Diagnosis: Unsteadiness on feet[ICD10: R26.81] Diagnosis: Weakness[ICD10: R53.1] Anum Bradshaw MD, [facility] CPT-4: 11391 08/15/2018 ([id number]) [id number] EST. P ATIENT, LEVEL III Diagnosis: Rash and other nonspecific skin eruption[ICD10: R21] Diagnosis: Other allergic rhinitis[ICD10: J30.89] Diagnosis: Gastro-esophageal reflux disease without esophagitis[ICD10: K21.9] Rosalinda Bradshaw MD, [facility] CPT-4: 53158 05/29/2018 ([id number]) 45839 EST. P ATIENT, LEVEL III Diagnosis: Rash and other nonspecific skin eruption[ICD10: R21] Rosalinda Bradshaw MD, [facility] CPT-4: 67152 05/14/2018 ([id number]) 13498 EST. P ATIENT, LEVEL IV Diagnosis: Essential (primary) hypertension[ICD10: I10] Diagnosis: Underweight[ICD10: R63.6] Diagnosis: Mixed hyperlipidemia[ICD10: E78.2] Anum Bradshaw MD, [facility] CPT- 4: 13563 04/18/2018 ([id number]) 98616 EST. P ATIENT, LEVEL III Diagnosis: Bicipital tendinitis, left shoulder[ICD10: M75.22] Anum Bradshaw MD, C CPT-4: 78143 01/22/2018 ([id number]) 28048 EST. P ATIENT, LEVEL III Diagnosis: Pain in right shoulder[ICD10: M25.511] Diagnosis: Bicipital tendinitis, right shoulder[ICD10: M75.21] Anum Bradshaw MD, C CPT-4: 73315 01/01/2018 ([id number]) 83831 EST. P ATIENT, LEVEL IV Diagnosis: Essential (primary) hypertension[ICD10: I10] Diagnosis: Underweight[ICD10: R63.6] Diagnosis: Mixed hyperlipidemia[ICD10: E78.2] Diagnosis: Actinic keratosis[ICD10: L57.0] Anum Bradshaw MD, [facility] CPT-4: 89237 12/12/2017 ([id number]) 55231 EST. P ATIENT, LEVEL III Diagnosis: Essential (primary) hypertension[ICD10: I10] Diagnosis: Fracture of unspecified part of neck of left femur, subsequent encounter for closed fracture with routine healing[ICD10: S72.002D] Diagnosis: Underweight[ICD10: R63.6] Anum Bradshaw MD, [facility] CPT-4: 98046 09/13/2017 ([id number]) 96433 EST. P ATIENT, LEVEL IV Diagnosis: Mixed hyperlipidemia[ICD10: E78.2] Diagnosis: Essential (primary) hypertension[ICD10: I10] Diagnosis: Vitamin B12 deficiency anemia due to intrinsic factor deficiency[ICD10: D51.0] Diagnosis: Gastro-esophageal reflux disease with esophagitis[ICD10: K21.0] Diagnosis: Age-related osteoporosis without current pathological fracture[ICD10: M81.0] Diagnosis: Encounter for immunization[ICD10: Z23] Anum Bradshaw MD, [facility] CPT-4: 74501 06/21/2017 ([id number]) 63725 EST. P ATIENT, LEVEL III Diagnosis: Fracture of unspecified part of neck of left femur, subsequent encounter for closed fracture with routine healing[ICD10: S72.002D] Diagnosis: Underweight[ICD10: R63.6] Diagnosis: Gastro-esophageal reflux disease with esophagitis[ICD10: K21.0] Anum Bradshaw MD, [facility] CPT-4: 08757 05/25/2017 ([id number]) 80010 EST. P ATIENT, LEVEL IV Diagnosis: Essential (primary) hypertension[ICD10: I10] Diagnosis: Fracture of unspecified part of neck of left femur, subsequent encounter for closed fracture with routine healing[ICD10: S72.002D] Diagnosis: Generalized anxiety disorder[ICD10: F41.1] Anum Bradshaw MD, [facility] CPT-4: 95279 05/16/2017 ([id number]) 60792 EST. P ATIENT, LEVEL IV Diagnosis: Essential (primary) hypertension[ICD10: I10] Diagnosis: Mixed hyperlipidemia[ICD10: E78.2] Diagnosis: Generalized anxiety disorder[ICD10: F41.1] Anum Bradshaw MD, C CPT-4: 02980 02/15/2017 ([id number]) 50869 EST. P ATIENT, LEVEL IV Diagnosis: Mixed hyperlipidemia[ICD10: E78.2] Diagnosis: Generalized anxiety disorder[ICD10: F41.1] Diagnosis: Essential (primary) hypertension[ICD10: I10] Diagnosis: Gastro-esophageal reflux disease with esophagitis[ICD10: K21.0] Anum Bradshaw MD, [facility] CPT-4: 14840 11/22/2016 [id number] EST. PATIENT, LEVEL III Diagnosis: Inflamed seborrheic keratosis[ICD10: L82.0] Kala Bradshaw MD, [facility] CPT-4: 87526 09/15/2016 ([id number]) 78655 EST. P ATIENT, LEVEL IV Diagnosis: Essential (primary) hypertension[ICD10: I10] Diagnosis: Mixed hyperlipidemia[ICD10: E78.2] Diagnosis: Generalized anxiety disorder[ICD10: F41.1] Anum Bradshaw MD [facility] CPT-4: 27404 09/07/2016 ([id number]) 84009 EST. P ATIENT, LEVEL IV Diagnosis: Essential (primary) hypertension[ICD10: I10] Diagnosis: Frequency of micturition[ICD10: R35.0] Diagnosis: Age-related osteoporosis without current pathological fracture[ICD10: M81.0] Anum Bradshaw MD, [facility] CPT-4: 02865 07/06/2016 ([id number]) 33982 EST. P ATIENT, LEVEL IV Diagnosis: Essential (primary) hypertension[ICD10: I10] Diagnosis: Mixed hyperlipidemia[ICD10: E78.2] Diagnosis: Gastro-esophageal reflux disease with esophagitis[ICD10: K21.0] Anum Bradshaw MD, [facility] CPT-4: 09549 04/06/2016 27590 EST. PATIENT, LEVEL IV Diagnosis: Essential (primary) hypertension[ICD10: I10] Diagnosis: Gastro-esophageal reflux disease with esophagitis[ICD10: K21.0] Kala Bradshaw MD, [facility] CPT-4: 39762 01/06/2016 ([id number]) 72227 EST. P ATIENT, LEVEL IV Diagnosis: Essential (primary) hypertension[ICD10: I10] Diagnosis: Gastro-esophageal reflux disease with esophagitis[ICD10: K21.0] Diagnosis: Other dietary vitamin B12 deficiency anemia[ICD10: D51.3] Diagnosis: Vitamin B12 deficiency anemia due to intrinsic factor deficiency[ICD10: D51.0] Diagnosis: Occlusion and stenosis of unspecified carotid artery[ICD10: I65.29] Anum Bradshaw MD, [facility] CPT-4: 48055 09/02/2015 ([id number]) 19363 EST. [facility] Diagnosis: Carpal tunnel syndrome[ICD9: 354.0] Diagnosis: Inflamed seborrheic keratosis[ICD9: 702.11] Rosalinda Bradshaw MD, [facility] CPT-4: 31111 06/15/2015 ([id number]) OFFICE [facility] - LEVEL 4 Diagnosis: ESSENTIAL HYPERTENSION[ICD9: 401.9] Diagnosis: ESOPHAGEAL REFLUX[ICD9: 530.81] Diagnosis: HYPERLIPIDEMIA[ICD9: 272.4] Anum Bradshaw MD, [facility] CPT-4: 70017 03/04/2015 Plan of Care Planned Activity Notes [...] for betamethasone. 09/05/2018 Appointment: Anum Bradshaw WPtel: [address] [place], [place] [id number] (15 min) Moderate 09/05/2018 Patient Education: Patient [...] not improving. 08/15/2018 Appointment: Anum Bradshaw WPtel: [facility]5 [id number] (15 min) Moderate 08/15/2018 Patient Education: Patient Medication Summary Completed 08/15/2018 Patient Education: Hypertension Completed 08/15/2018 Appointment: [facility] [phone] [facility] (15 min) Moderate 2018 Appointment: Injection 06/21/2018 [...] shampoo 05/29/2018 Appointment: [phone] [phone] (30 min) Complex 05/29/2018 Patient Education: [...] if needed 05/14/2018 Appointment: Rosal[facility] Bermudez WPtel: [phone] (30 min) Complex 05/14/2018 Patient Education: [...] to medications. 04/18/2018 Appointment: Anum Bradshaw WPtel: [facility]4 [phone] (15 min) Moderate 04/18/2018 Patient Education: Patient Medication Summary Completed 04/18/2018 Appointment: Injection 03/08/2018 Visit Plan: Left shoulder pain - bi cep tendonitis - continue with physical therapy at [facility]. Use voltaren gel on left shoulder now - continue with therapy on right shoulder. 01/22/2018 Appointment: Anum Bradshaw WPtel: [phone] (15 min) Moderate 01/22/2018 Patient Education: Patient [...] tendonitis - referral to physical therapy at [facility] 01/01/2018 Appointment: Anum Bradshaw WPtel: [facility] [place] (15 min) Moderate 01/01/2018 Patient Education: [...] 2 weeks 12/12/2017 Appointment: Anum Bradshaw WPtel: [address] [phone] (15 min) Moderate 12/12/2017 Patient Education: Patient [...] - healing. 09/13/2017 Appointment: Anum Bradshaw WPtel: [address] [phone] (15 min) Moderate 09/13/2017 Patient Education: Patient [...] not improving. 06/21/2017 Appointment: Anum Bradshaw WPtel: [phone] (15 min) Moderate 06/21/2017 Patient Education: Patient Medication Summary Completed 06/21/2017 Visit Plan: Esophageal Reflux - the patient has been taking medication as directed and her symptoms are improved. Hip fracture - continue with supportive care, nonweight bearing. Underweight - increase protein intake, higher calorie diet, use wheelchair to decrease excessive caloric expenditure. 05/25/2017 Appointment: Anum Bradshaw WPtel: [facility]5 [phone] (15 min) Moderate 05/25/2017 Patient Education: Patient [...] current medications. 05/16/2017 Appointment: Anum Bradshaw WPtel: [facility]5 [phone] (15 min) Moderate 05/16/2017 Patient Education: Patient [...] to medications. 02/15/2017 Appointment: [facility]el[facility] [phone] [facility] (15 min) Moderate 02/15/2017 Patient Education: Patient Medication Summary Completed 02/15/2017 Patient Education: Hypertension Completed 02/15/2017 Care Plan: Referral Order SNOMED-CT : [id number] Pending 02/15/2017 Appointment: [facility] Bradshaw [facility]Ptel[facility] [address] [facility] (15 min) Moderate 01/11/2017 Visit Plan: Hypertension [...] treatment 11/22/2016 Appointment: [facility]Ptel[facility] [phone] [facility] [place] (15 min) Moderate 11/22/2016 Patient Education: Patient Medication Summary Completed 11/22/2016 Patient Education: Hypertension Completed 11/22/2016 Appointment: Rosalinda Bermudez WPtel: [facility]4 [phone] (30 min) Complex 09/16/2016 Visit Plan: [...] monitor symptoms. 09/07/2016 Appointment: Anum Bradshaw WPtel: [facility]8 [phone] (15 min) Moderate 09/07/2016 Patient Education: Patient [...] ua negative 07/06/2016 Appointment: Anum Bradshaw WPtel: [facility] [place] (15 min) Moderate 07/06/2016 Patient Education: Patient [...] not improving. 04/06/2016 Appointment: Anum Bradshaw WPtel: [facility] [place] (15 min) Moderate 04/06/2016 Patient [...] 09/02/2015 Care Plan: Referral Order SNOMED-CT : [id number] Ordered 09/02/2015 Appointment: Injection 06/19/2015 Patient Education: [...] not improving. 03/04/2015 Appointment: Anum Bradshaw WPtel[facility] [phone] [facility] [place] (S) New Patient 03/04/2015 Patient Education: Patient Medication Summary Completed 03/04/2015 Patient Education: Hypertension Completed 03/04/2015 Patient Education: Patient Medication Summary Completed 02/10/2015 Referral: Dickson Forde Referral Appointment Requested Referral: Kenneth Sykes Referral Appointment Requested Instructions Comment . Esophageal Reflux - the patient has [...] posterior scalp - rx for betamethasone. . Hypertension - wel l controlled - continue with current medications, continue with no added salt diet. Pt has been encouraged to exercise daily. The pt has been advised to call the office if there are any acute concerns about change in blood pressure readings at home. Underweight - improving - continue with high protein diet. Hip fracture - healing. . Lesion to left joleen e of [...] continue with physical therapy at [facility]. Use voltaren gel on left shoulder now - continue with therapy on right shoulder. esomeprazole - the g eneric name of [...] referral to physical therapy at [facility] INCREASE CARAFATE SWITCH TO NIDIA . Esophageal [...] Anxiety - stable - continue current treatment [facility] - the daily o steoporosis injection [...] weeks -sooner if needed . Hypertension - The patient has been [...]
--- OUTSIDE RECORDS SUMMARY | 2019-12-29 11:24 | XMS REPORT | CCD ---
Author Author Ashley Bradshaw Organization [facility] Address [address] [place] [address] Phone Care Team Providers [place] Program Technician Name Role Phone PP Unavailable CCM Unavailable Summary Purpose Interface Exchange Insurance Providers Payer name Policy type / Coverage type Covered alliance party ID Effective Begin Date Effective End Date WPS Medicare Part B Medicare Part B [id number] Unknown Unknown CIGNA Medicare Part B [id number] Unknown Unknown Family history Father Diagnosis Age At Onset Coronary Artery Disease Unknown Mother Diagnosis Age At Onset Anemia Unknown Skin cancer Unknown Hypertension Unknown Cancer Unknown Breast cancer Unknown Social History Social History Element Codes Description Effective Dates Marital status Unknown M arried Shahram 03/04/2015 Number of children Unknown 3 03/04/[address]: 007985940 Never smoker 03/04/[address]: 349105457 Never drinks alcohol 03/04/2015 Allergies, Adverse Reactions, Alerts Substance Reaction Codes Entered Date Inactivated Date Status NEOSPORIN RxNorm: 632945 01/06/2016 No Inactive Date Active Past Medical [...] Date Stop Date Sta tus Fill Instructions sucralfate 100 mg/mL oral suspension RxNorm: 331146 10 Milliliter(s) per 1 gram PO QID 10/08/2018 10/02/2019 Active diltiazem 30 mg tablet RxNorm: 708047 1 Tablet(s) PO QID 10/08/2018 10/02/2019 Active betamethasone nasir te 0.1 % topical cream RxNorm: 621527 1 Application TOP BID 09/05/2018 11/03/2018 Ac tive ketoconazole 2 % top ical cream RxNorm: 411476 1 Application TOP BID to posterior scalp x 2 weeks or until the skin is healed 08/15/2018 08/28/2018 Inactive triamterene 37.5 mg- hydrochlorothiazide 25 mg tablet RxNorm: 263914 Tablet(s) 1 Tablet(s) PO daily 07/12/2018 01/07/2019 Active PLEASE SEND REFILL REQUESTS ELECTRONICALLY simvastatin 20 mg ta blet RxNorm: 919396 TAKE 1 TABLET BY MOUT H EVERY DAY 07/12/2018 01/07/2019 Ac tive ketoconazole 2 % sha mpoo RxNorm: 427687 1 Application TOP BIW 05/14/2018 No Stop Date Active simvastatin 20 mg ta blet RxNorm: 567126 TAKE 1 TABLET BY MOUT H EVERY DAY 03/01/2018 07/11/2018 In active triamterene 37.5 mg- hydrochlorothiazide 25 mg tablet RxNorm: 323354 Tablet(s) 1 Tablet(s) PO daily 02/06/2018 07/11/2018 Inactive PLEASE SEND REFILL REQUESTS ELECTRONICALLY Voltaren 1 % topical gel RxNorm: 125160 2 Gram(s) TOP TID to shoulders 01/01/2018 04/30/2018 In active sucralfate 100 mg/mL oral suspension RxNorm: 776852 10 Milliliter(s) per 1 gram PO QID 12/12/2017 06/09/2018 Inactive refill 3 month supply- 1gm/10ml simvastatin 20 mg ta blet RxNorm: 882725 TAKE 1 TABLET BY MOUT H EVERY DAY 12/04/2017 02/28/2018 In active escitalopram 5 mg ta blet RxNorm: 659188 1 Tablet(s) PO QPM 10/26/2017 01/18/2019 Active esomeprazole magnesi um 40 mg capsule,delayed release RxNorm: 912890 TAKE 1 CAPSULE BY MOUTH DAILY 10/26/2017 01/18/2019 Active mupirocin 2 % topica l ointment RxNorm: 794013 APPLY TO AFFECTED ARE A(S) ONCE DAILY 10/16/2017 11/28/2017 In active diltiazem 30 mg tablet RxNorm: 286374 1 Tablet(s) PO QID 10/09/2017 10/03/2018 Inactive triamterene 37.5 mg- hydrochlorothiazide 25 mg tablet RxNorm: 296311 1 Tablet(s) PO daily 07/28/2017 01/23/2018 Inactive fluticasone 50 mcg/a ctuation nasal spray,suspension RxNorm: 8953158 2 [facility] NASAL daily 07/20/2017 01/15/2018 Inactive diltiazem 30 mg tablet RxNorm: 875445 1 Tablet(s) PO QID TAKE 1 TABLET BY MOUT H FOUR TIMES DAILY 07/13/2017 10/08/2017 Inactive simvastatin 20 mg ta blet RxNorm: 277129 TAKE 1 TABLET BY MOUT H EVERY DAY 06/08/2017 12/03/2017 In active Nexium 40 mg capsule ,delayed release RxNorm: 692409 1 Capsule(s) PO daily 05/25/2017 11/27/2017 In active esomeprazole magnesi um 40 mg capsule,delayed release RxNorm: 275421 Capsule(s) TAKE 1 CAPSULE BY MOUTH DAILY 05/17/2017 02/10/2018 Inactive diltiazem 30 mg tablet RxNorm: 443108 Tablet(s) TAKE 1 TABLET BY MOUTH FOUR TI MES DAILY 05/16/2017 07/12/2017 Inactive diltiazem 30 mg tablet RxNorm: 437091 TAKE 1 TABLET BY MOUTH THREE TIMES DAILY 02/09/2017 05/15/2017 In active Zofran ODT 4 mg disi ntegrating tablet RxNorm: 180789 1 Tablet(s) PO Q6 as needed 11/16/2016 11/22/2016 In active Protonix 40 mg table t,delayed release RxNorm: 064517 1 Tablet(s) PO daily 11/16/2016 12/15/2016 In active Protonix 40 mg table t,delayed release RxNorm: 696905 1 Tablet(s) PO daily 11/16/2016 11/15/2016 In active Zofran ODT 4 mg disi ntegrating tablet RxNorm: 057771 1 Tablet(s) PO Q6 as needed 11/16/2016 11/15/2016 In active escitalopram 5 mg ta blet RxNorm: 216317 1 Tablet(s) PO QPM 10/28/2016 10/22/2017 Inactive escitalopram 5 mg ta blet RxNorm: 267900 1 Tablet(s) PO QPM 10/05/2016 10/27/2016 Inactive mupirocin 2 % topica l ointment RxNorm: 308548 1 Application TOP yao ly APPLY TO AFFECTED AREA(S) TOPICALLY DAILY 09/07/2016 11/05/2016 Inactive Efudex 5 % topical c ream RxNorm: 462084 1 TOP BID 09/07/2016 09/16/2016 Inactive escitalopram 5 mg ta blet RxNorm: 799006 1 Tablet(s) PO QPM 09/07/2016 10/04/2016 Inactive sucralfate 100 mg/mL oral suspension RxNorm: 966890 10 Milliliter(s) per 1 gram PO QID 08/03/2016 07/28/2017 Inactive refill 3 month supply- 1gm/10ml clorazepate dipotass ium 3.75 mg tablet RxNorm: 930194 1 Tablet(s) PO QHS as needed insomnia 07/06/2016 08/14/2018 Inactive triamterene 37.5 mg- hydrochlorothiazide 25 mg tablet RxNorm: 350229 1 Tablet(s) PO daily 06/29/2016 06/23/2017 Inactive Nexium 40 mg capsule ,delayed release RxNorm: 022238 1 Capsule(s) PO daily 06/29/2016 07/05/2016 In active Bactroban 2 % topica l ointment RxNorm: 600864 APPLY TO AFFECTED ARE A(S) TOPICALLY DAILY 06/22/2016 09/06/2016 Inactive esomeprazole magnesi um 40 mg capsule,delayed release RxNorm: 817460 TAKE 1 CAPSULE BY MOUTH DAILY 06/13/2016 03/09/2017 Inactive simvastatin 20 mg ta blet RxNorm: 748007 1 Tablet(s) PO daily 05/16/2016 06/07/2017 Inactive simvastatin 20 mg ta blet RxNorm: 591561 1 Tablet(s) PO daily 05/12/2016 05/15/2016 Inactive famotidine 40 mg tablet RxNorm: 187783 TAKE 1 TABLET BY MOUTH DAILY 05/05/2016 01/29/2017 Inactive Bactroban 2 % topica l ointment RxNorm: 841348 APPLY TO AFFECTED ARE A(S) TOPICALLY DAILY 04/25/2016 05/01/2016 Inactive fluticasone 50 mcg/a ctuation nasal spray,suspension RxNorm: 7534831 2 [facility] NASAL daily 03/23/2016 09/18/2016 Inactive fluticasone 50 mcg/a ctuation nasal spray,suspension RxNorm: 329589 2 [facility] NASAL daily 03/07/2016 03/22/2016 Inactive Bactroban 2 % topica l ointment RxNorm: 539446 APPLY TO AFFECTED ARE A(S) TOPICALLY DAILY 02/29/2016 03/06/2016 Inactive diltiazem 30 mg tablet RxNorm: 656242 1 Tablet(s) PO TID 02/18/2016 02/08/2017 Inactive Bactroban 2 % topica l ointment RxNorm: 912885 1 Application TOP 01/08/2016 02/28/2016 Inactive clorazepate dipotass ium 3.75 mg tablet RxNorm: 932836 1 Tablet(s) PO daily 12/14/2015 06/10/2016 In active fluticasone 50 mcg/a ctuation nasal spray,suspension RxNorm: 325637 2 [facility] NASAL daily 12/14/2015 02/11/2016 Inactive diltiazem 30 mg tablet RxNorm: 631483 1 Tablet(s) PO TID 09/03/2015 02/17/2016 Inactive simvastatin 20 mg ta blet RxNorm: 146683 1 Tablet(s) PO daily 08/24/2015 05/11/2016 Inactive triamterene 37.5 mg- hydrochlorothiazide 25 mg tablet RxNorm: 291938 1 Tablet(s) PO daily 07/09/2015 06/28/2016 Inactive clorazepate dipotass ium 15 mg tablet RxNorm: 346610 1 Tablet(s) PO daily 07/06/2015 07/06/2015 In active clorazepate dipotass ium 3.75 mg tablet RxNorm: 243835 1 Tablet(s) PO daily 07/06/2015 12/13/2015 In active esomeprazole magnesi um 40 mg capsule,delayed release RxNorm: 109835 1 Capsule(s) PO daily 06/26/2015 06/12/2016 Inactive famotidine 40 mg tablet RxNorm: 030405 1 Tablet(s) PO daily 06/26/2015 05/04/2016 Inactive diltiazem 30 mg tablet RxNorm: 913504 1 Tablet(s) PO TID 06/09/2015 09/02/2015 Inactive sucralfate 100 mg/mL oral suspension RxNorm: 336699 10 Milliliter(s) per 1 gram PO QID 04/28/2015 04/21/2016 Inactive refill 3 month supply- 1gm/10ml member I d [id number] sucralfate 100 mg/mL oral suspension RxNorm: 411319 10 Milliliter(s) per 1 gram PO QID 04/27/2015 04/27/2015 Inactive refill 3 month supply diltiazem 30 mg tablet RxNorm: 667302 1 Tablet(s) PO TID 02/18/2015 02/17/2015 Inactive diltiazem 30 mg tablet RxNorm: 648175 1 Tablet(s) PO TID 02/18/2015 05/18/2015 Inactive Vitamin D3 2,000 uni t tablet RxNorm: 875353 Tablet(s) PO daily No Start Date Active Nidia ODT oral RxNorm: 527554 oral No Start Date Active PreserVision Lutein oral RxNorm: [address] art Date Active Calcium 500 + D oral RxNorm: 028956 oral No Start Date Active ketoconazole 2 % sha mpoo RxNorm: 704874 1 TOP daily No Start Date Active ketoconazole 2 % sha mpoo RxNorm: 922047 TOP No St art Date Active melatonin 5 mg tablet RxNorm: 061047 Tablet(s) PO QHS as needed No Start Date Active vitamin B6-vitamin E -magnesium oral RxNorm: 761524 oral No S tart Date Active famotidine 40 mg tablet RxNorm: 975140 1 Tablet(s) PO daily No Start Date 06/25/2015 Inactive clorazepate dipotass ium 3.75 mg tablet RxNorm: 894029 1 Tablet(s) PO daily No Start Date 07/05/2015 Inactive Bactroban 2 % topica l ointment RxNorm: 587597 1 Application TOP No Start Date 01/07/2016 Inactive Carafate 1 gram tablet RxNorm: 591733 1 Tablet(s) PO QID No Start Date 04/26/2015 Inactive Zyrtec 10 mg tablet RxNorm: 6553222 1 Tablet(s) PO daily No Start Date 08/14/2018 Inactive esomeprazole magnesi um 40 mg capsule,delayed release RxNorm: 830222 Capsule(s) PO daily No Start Date 06/25/2015 Inactive fluticasone 50 mcg/a ctuation nasal spray,suspension RxNorm: 061986 2 [facility] NASAL daily No Start Date 12/13/2015 Inactive Nexium 40 mg capsule ,delayed release RxNorm: 637437 1 Capsule(s) PO daily No Start Date 06/28/2016 Inactive triamterene 37.5 mg- hydrochlorothiazide 25 mg tablet RxNorm: 445225 1 Tablet(s) PO daily No Start Date 07/08/2015 Inactive simvastatin 20 mg ta blet RxNorm: 007945 1 Tablet(s) PO daily No Start Date [...] 31.4 pg 04/18/2018 Cbc With Differential Ord2 [place]% 9.2 % 04/18/2018 Cbc With Differential Ord2 [...] 0.76 K/ul 04/18/2018 Cbc With Differential Ord2 [place] ABS# 0.5 K/ul 04/18/2018 Cbc With Differential [...] Ord15 CALCIUM 9.1 mg/dL 04/18/2018 Comp Metabolic Ofk564 NA 130 mEq/L 12/07/2017 Comp Metabolic Spo368 K 3.6 mEq/L 12/07/2017 Comp Metabolic Gpm866 CL 91 mEq/L 12/07/2017 Comp Metabolic Pxx753 CO2 29.0 mEq/L 12/07/2017 Comp Metabolic Vwj037 AN ION GAP 14 12/07/2017 Comp Metabolic Izp959 GL UCOSE 105 mg/dL 12/07/2017 Comp Metabolic Kjt484 Cr eat 0.6 mg/dL 12/07/2017 Comp Metabolic Cec812 eG FR 94 ml/min/1.73m2 12/07 Comp Metabolic Hgy772 BUN 15 mg/dL 12/07/2017 Comp Metabolic Njz337 B/ C Ratio 23.4 Ratio 12/07/2017 Comp Metabolic Leg907 CA LCIUM 9.3 mg/dL 12/07/2017 Comp Metabolic Eze036 AL K PHOS 62 U/L 12/07/2017 Comp Metabolic Dlf181 T(SGOT) 31 U/L 12/07/2017 Comp Metabolic Ypj032 AL T(SGPT) 22 U/L 12/07/2017 Comp Metabolic Aqn131 BI LI T 0.4 mg/dL 12/07/2017 Comp Metabolic Ibn030 AL BUMIN 4.3 g/dL 12/07/2017 Comp Metabolic Gfl644 TP RO 6.5 g/dL 12/07/2017 Comp Metabolic Mds430 GL OB 2.2 g/dL 12/07/2017 Comp Metabolic Nhx329 A/ G Ratio 2.0 Ratio 12/07/2017 Comp Metabolic Mrp221 Os mo 262 mOsmo 12/07/2017 Cbc With [...] 12.3 % 12/07/2017 Cbc With Differential Ord2 [place]% 10.4 % 12/07/2017 Cbc With Differential Ord2 [...] 0.57 K/ul 12/07/2017 Cbc With Differential Ord2 [place] ABS# 0.5 K/ul 12/07/2017 Cbc With Differential [...] 32.3 pg 06/21/2017 Cbc With Differential Ord2 [place]% 10.1 % 06/21/2017 Cbc With Differential Ord2 [...] 0.65 K/ul 06/21/2017 Cbc With Differential Ord2 [place] ABS# 0.5 K/ul 06/21/2017 Cbc With Differential Ord2 Eos ABS# 0.2 K/ul 06/21/2017 Cbc With Differential Ord2 Baso ABS# 0.0 K/ul 06/21/2017 Comp Metabolic Gin362 NA 133 mEq/L 06/21/2017 Comp Metabolic Wtr330 K 4.0 mEq/L 06/21/2017 Comp Metabolic Jam199 CL 94 mEq/L 06/21/2017 Comp Metabolic Nil826 CO2 25.0 mEq/L 06/21/2017 Comp Metabolic Dcs330 AN ION GAP 18 06/21/2017 Comp Metabolic Spu165 GL UCOSE 88 mg/dL 06/21/2017 Comp Metabolic Xrj542 Cr eat 0.6 mg/dL 06/21/2017 Comp Metabolic Bcs438 eG FR 94 ml/min/1.73m2 06/21 Comp Metabolic Jtv099 BUN 16 mg/dL 06/21/2017 Comp Metabolic Pto620 B/ C Ratio 25.0 Ratio 06/21/2017 Comp Metabolic Jfi173 CA LCIUM 9.1 mg/dL 06/21/2017 Comp Metabolic Dkf613 AL K PHOS 65 U/L 06/21/2017 Comp Metabolic Lap998 T(SGOT) 31 U/L 06/21/2017 Comp Metabolic Nec328 AL T(SGPT) 20 U/L 06/21/2017 Comp Metabolic Svp286 BI LI T 0.5 mg/dL 06/21/2017 Comp Metabolic Dzv229 AL BUMIN 4.3 g/dL 06/21/2017 Comp Metabolic Uxg812 TP RO 6.6 g/dL 06/21/2017 Comp Metabolic Mgf880 GL OB 2.3 g/dL 06/21/2017 Comp Metabolic Shv345 A/ G Ratio 1.8 Ratio 06/21/2017 Comp Metabolic Ypo568 Os mo 267 mOsmo 06/21/2017 Lipid Ord30 CHOL 188 mg/dL 06/21/2017 Lipid Ord30 HDL 77.0 mg/dl 06/21/2017 Lipid Ord30 TRIG 66 mg/dL 06/21/2017 Lipid Ord30 LDL 98 mg/dL 06/21/2017 Lipid Ord30 C/HDL 2.4 Ratio 06/21/2017 Tsh Ord6 hTSH II 1.32 uIU/mL 06/21/2017 Comp Metabolic Xhv063 NA 135 mEq/L 02/09/2017 Comp Metabolic Wis410 K 4.0 mEq/L 02/09/2017 Comp Metabolic Ray091 CL 96 mEq/L 02/09/2017 Comp Metabolic Cyu845 CO2 28.0 mEq/L 02/09/2017 Comp Metabolic Ski005 AN ION GAP 15 02/09/2017 Comp Metabolic Vqs328 GL UCOSE 101 mg/dL 02/09/2017 Comp Metabolic Voc364 Cr eat 0.7 mg/dL 02/09/2017 Comp Metabolic Tol791 eG FR 83 ml/min/1.73m2 02/09 Comp Metabolic Msr852 BUN 17 mg/dL 02/09/2017 Comp Metabolic Dxd704 B/ C Ratio 23.9 Ratio 02/09/2017 Comp Metabolic Ekq079 CA LCIUM 9.3 mg/dL 02/09/2017 Comp Metabolic Gzx730 AL K PHOS 51 U/L 02/09/2017 Comp Metabolic Cmd748 T(SGOT) 33 U/L 02/09/2017 Comp Metabolic Cmz866 AL T(SGPT) 21 U/L 02/09/2017 Comp Metabolic Idu044 BI LI T 0.6 mg/dL 02/09/2017 Comp Metabolic Wed154 AL BUMIN 4.3 g/dL 02/09/2017 Comp Metabolic Lzo764 TP RO 6.9 g/dL 02/09/2017 Comp Metabolic Uvh447 GL OB 2.6 g/dL 02/09/2017 Comp Metabolic Add626 A/ G Ratio 1.7 Ratio 02/09/2017 Comp Metabolic Hoa054 Os mo 272 mOsmo 02/09/2017 Lipid Ord30 [...] 94.3 fl 02/09/2017 Cbc With Differential Ord2 [place]% 11.3 % 02/09/2017 Cbc With Differential Ord2 [...] 0.77 K/ul 02/09/2017 Cbc With Differential Ord2 [place] ABS# 0.6 K/ul 02/09/2017 Cbc With Differential [...] 31.5 pg 03/29/2016 Cbc With Differential Ord2 [place]% 9.5 % 03/29/2016 Cbc With Differential Ord2 [...] 0.60 K/ul 03/29/2016 Cbc With Differential Ord2 [place] ABS# 0.4 K/ul 03/29/2016 Cbc With Differential Ord2 Eos ABS# 0.1 K/ul 03/29/2016 Cbc With Differential Ord2 Baso ABS# 0.0 K/ul 03/29/2016 Comp Metabolic Jth722 NA 135 mEq/L 03/29/2016 Comp Metabolic Waf205 K 3.7 mEq/L 03/29/2016 Comp Metabolic And475 CL 96 mEq/L 03/29/2016 Comp Metabolic Ykw662 CO2 30.0 mEq/L 03/29/2016 Comp Metabolic Bbq847 AN ION GAP 13 03/29/2016 Comp Metabolic Xuo868 GL UCOSE 102 mg/dL 03/29/2016 Comp Metabolic Uwu207 Cr eat 0.6 mg/dL 03/29/2016 Comp Metabolic Rai640 eG FR 94 ml/min/1.73m2 03/29 Comp Metabolic Lfl325 BUN 15 mg/dL 03/29/2016 Comp Metabolic Ytw256 B/ C Ratio 23.4 Ratio 03/29/2016 Comp Metabolic Eax350 CA LCIUM 9.1 mg/dL 03/29/2016 Comp Metabolic Ste962 AL K PHOS 70 U/L 03/29/2016 Comp Metabolic Wnc670 T(SGOT) 35 U/L 03/29/2016 Comp Metabolic Hic384 AL T(SGPT) 27 U/L 03/29/2016 Comp Metabolic Izz136 BI LI T 0.5 mg/dL 03/29/2016 Comp Metabolic Muv618 AL BUMIN 4.2 g/dL 03/29/2016 Comp Metabolic Ipk084 TP RO 6.6 g/dL 03/29/2016 Comp Metabolic Jou015 GL OB 2.4 g/dL 03/29/2016 Comp Metabolic Kaj421 A/ G Ratio 1.7 Ratio 03/29/2016 Comp Metabolic Gqy935 Os mo 271 mOsmo 03/29/2016 Tsh Ord6 hTSH II 1.17 uIU/mL 03/29/2016 B12 Daa533 B12 838.00 pg/ml 09/02/2015 Tsh Ord6 hTSH [...] Ord2 RDW 15.1 % 09/02/2015 Comp Metabolic Dco447 NA 135 mEq/L 09/02/2015 Comp Metabolic Lhb622 K 3.4 mEq/L 09/02/2015 Comp Metabolic Uft555 CL 95 mEq/L 09/02/2015 Comp Metabolic Mru715 CO2 27.0 mEq/L 09/02/2015 Comp Metabolic Ozm864 AN ION GAP 16 09/02/2015 Comp Metabolic Bni037 GL UCOSE 94 mg/dL 09/02/2015 Comp Metabolic Xtq168 Cr eat 0.7 mg/dL 09/02/2015 Comp Metabolic Krp363 eG FR 87 ml/min/1.73m2 09/02 Comp Metabolic Olj177 BUN 18 mg/dL 09/02/2015 Comp Metabolic Hve225 B/ C Ratio 26.1 Ratio 09/02/2015 Comp Metabolic Sjv816 CA LCIUM 9.0 mg/dL 09/02/2015 Comp Metabolic Kyr640 AL K PHOS 67 U/L 09/02/2015 Comp Metabolic Bkz273 T(SGOT) 30 U/L 09/02/2015 Comp Metabolic Oij284 AL T(SGPT) 21 U/L 09/02/2015 Comp Metabolic Bmx205 BI LI T 0.6 mg/dL 09/02/2015 Comp Metabolic Hfe102 AL BUMIN 4.3 g/dL 09/02/2015 Comp Metabolic Iid866 TP RO 6.8 g/dL 09/02/2015 Comp Metabolic Mzy218 GL OB 2.5 g/dL 09/02/2015 Comp Metabolic Tbu240 A/ G Ratio 1.7 Ratio 09/02/2015 Comp Metabolic Ufl385 Os mo 272 mOsmo 09/02/2015 Lipid Ord30 [...] clear 09/02/2015 None Full Exam - General 1995 Ears/Nose/Throat oral cavity/pharynx/larynx Overall: oropharyngeal mucosa clear 09/02/2015 None Full Exam - General 1995 Ears/Nose/Throat oral cavity/pharynx/larynx Overall: hypopharynx benign 09/02/2015 [...] VACC PRSV FREE I NC ANTIG CPT-4: 76890 06/21/2018 ADMIN INFLUENZA VIRU S VAC CPT-4: G0008 06/21/2017 FLU VACC PRSV FREE I NC ANTIG CPT-4: 89505 06/21/2017 ADMIN INFLUENZA VIRU S VAC CPT-4: G0008 06/24/2016 FLU VACC 4 CRISTINE 3 YRS PLUS IM Formatting Model/CDA Sections, Assigned to/Carmen Solis SNOMED CT: 69298861 CPT-4: 12169Syektlu 06/24/2016 ADMIN INFLUENZA VIRU S VAC CPT-4: G0008 06/19/2015 FLU VACC 4 CRISTINE 3 YRS PLUS IM Formatting Model/CDA Sections, Assigned to/Carmen Solis SNOMED CT: 94769216 CPT-4: 04877Aipxrdb 06/19/2015 Vital Signs Date Vital 09/05/2018 Blood Pressure 1: 138/74 Code: 8480-6 BMI: 16.1 Code: 48997-6 Heart Rate 1: 69 bpm Height: 5'2" SpO2: 98% Weight: 89 lbs 8 oz 08/15/2018 Blood Pressure 1: 142/72 Code: 8480-6 BMI: 16.3 Code: 61906-4 Heart Rate 1: 66 bpm Height: 5'2" SpO2: 99% Weight: 90 lbs 8 oz 05/29/2018 Blood Pressure 1: 140/70 Code: 8480-6 BMI: 16.2 Code: 65281-1 Heart Rate 1: 67 bpm Height: 5'2" SpO2: 99% Weight: 90 lbs 05/14/2018 Blood Pressure 1: 146/68 Code: 8480-6 BMI: 16.0 Code: 52646-0 Heart Rate 1: 70 bpm Height: 5'2" SpO2: 98% Weight: 89 lbs 04/18/2018 Blood Pressure 1: 126/68 Code: 8480-6 BMI: 15.7 Code: 85945-7 Heart Rate 1: 81 bpm Height: 5'2" SpO2: 99% Weight: 87 lbs 01/22/2018 Blood Pressure 1: 136/76 Code: 8480-6 BMI: 15.8 Code: 18198-9 Heart Rate 1: 73 bpm Height: 5'2" SpO2: 99% Weight: 88 lbs 01/01/2018 Blood Pressure 1: 148/76 Code: 8480-6 BMI: 15.8 Code: 79777-5 Heart Rate 1: 74 bpm Height: 5'2" SpO2: 98% Weight: 88 lbs 12/12/2017 Blood Pressure 1: 140/72 Code: 8480-6 BMI: 15.8 Code: 58534-2 Heart Rate 1: 65 bpm Height: 5'2" SpO2: 96% Weight: 88 lbs 09/13/2017 Blood Pressure 1: 138/70 Code: 8480-6 BMI: 15.9 Code: 93352-5 Heart Rate 1: 74 bpm Height: 5'2" SpO2: 99% Weight: 88 lbs 8 oz 06/21/2017 Blood Pressure 1: 122/50 Code: 8480-6 BMI: 15.3 Code: 31452-8 Heart Rate 1: 69 bpm Height: 5'2" SpO2: 99% Weight: 85 lbs 05/25/2017 Blood Pressure 1: 138/72 Code: 8480-6 Heart Rate 1: 77 bpm Height: 5'2" SpO2: 98% Weight: 05/16/2017 Blood Pressure 1: 136/78 Code: 8480-6 Heart Rate 1: 86 bpm Height: 5'2" SpO2: 98% Weight: 02/15/2017 Blood Pressure 1: 144/78 Code: 8480-6 BMI: 15.4 Code: 76916-9 Heart Rate 1: 65 bpm Height: 5'2" SpO2: 98% Weight: 85 lbs 8 oz 11/22/2016 Blood Pressure 1: 140/58 Code: 8480-6 BMI: 14.8 Code: 46997-7 Heart Rate 1: 79 bpm Height: 5'2" SpO2: 99% Weight: 82 lbs 09/15/2016 BMI: 16.0 Code: 39138-2 Height: 5'2" Weight: 89 lbs 09/07/2016 Blood Pressure 1: 130/62 Code: 8480-6 BMI: 16.2 Code: 36166-6 Heart Rate 1: 71 bpm Height: 5'2" SpO2: 98% Weight: 90 lbs 07/06/2016 Blood Pressure 1: 144/76 Code: 8480-6 BMI: 15.8 Code: 51953-4 Heart Rate 1: 78 bpm Height: 5'2" SpO2: 99% Weight: 88 lbs 04/06/2016 Blood Pressure 1: 148/58 Code: 8480-6 BMI: 16.2 Code: 19205-4 Heart Rate 1: 64 bpm Height: 5'2" SpO2: 97% Weight: 90 lbs 01/06/2016 Blood Pressure 1: 146/72 Code: 8480-6 BMI: 16.6 Code: 04111-6 Heart Rate 1: 62 bpm Height: 5'2" SpO2: 99% Weight: 92 lbs 09/02/2015 Blood Pressure 1: 132/70 Code: 8480-6 BMI: 16.6 Code: 91004-0 Heart Rate 1: 77 bpm Height: 5'2" SpO2: 98% Weight: 92 lbs 06/15/2015 Blood Pressure 1: 144/60 Code: 8480-6 BMI: 16.7 Code: 96577-2 Heart Rate 1: 66 bpm Height: 5'2" SpO2: 97% Weight: 93 lbs 03/04/2015 Blood Pressure 1: 120/80 Code: 8480-6 BMI: 15.8 Code: 21192-8 Heart Rate 1: 74 bpm Height: 5'2" [...] shoulder 01/22/2018 None shoulder pain Quality [facility] [place] 01/22/2018 None shoulder pain Quality co nstant [...] nstant 01/01/2018 None shoulder pain Quality [facility] [place] 01/01/2018 None shoulder pain Quality wo rsening [...] triggers 02/15/2017 None Hospital Follow Up _ [facility] er: surgery follow up 11/22/2016 None [...] Encounters Encounter Performer Loca tion Codes Date ([id number]) [id number] EST. P RENÉ, LEVEL IV Diagnosis: Essential (primary) hypertension[ICD10: I10] Diagnosis: Rash and other nonspecific skin eruption[ICD10: R21] Anum Bradshaw MD, [facility] CPT-4: 12669 09/05/[id number]) [id number] EST. P RENÉ, LEVEL IV Diagnosis: Essential (primary) hypertension[ICD10: I10] Diagnosis: Tinea barbae and tinea capitis[ICD10: B35.0] Diagnosis: Unsteadiness on feet[ICD10: R26.81] Diagnosis: Weakness[ICD10: R53.1] Anum Bradshaw MD, [facility] CPT-4: 06657 08/15/2018 [id number]) [id number] EST. P RENÉ, LEVEL III Diagnosis: Rash and other nonspecific skin eruption[ICD10: R21] Diagnosis: Other allergic rhinitis[ICD10: J30.89] Diagnosis: Gastro-esophageal reflux disease without esophagitis[ICD10: K21.9] Rosalinda Bradshaw MD, [facility] CPT-4: 43174 05/29/2018 ([id number]) [id number] EST. P ATIENT, LEVEL III Diagnosis: Rash and other nonspecific skin eruption[ICD10: R21] Rosalinda Bradshaw MD, [facility] CPT-4: 08445 05/14/2018 ([id number]) [id number] EST. P ATIENT, LEVEL IV Diagnosis: Essential (primary) hypertension[ICD10: I10] Diagnosis: Underweight[ICD10: R63.6] Diagnosis: Mixed hyperlipidemia[ICD10: E78.2] Anum Bradshaw MD, [facility] CPT- 4: 88546 04/18/2018 ([id number]) [id number] EST. P ATIENT, LEVEL III Diagnosis: Bicipital tendinitis, left shoulder[ICD10: M75.22] Anum Bradshaw MD, [facility] CPT-4: 00576 01/22/2018 ([id number]) 95819 EST. P ATIENT, LEVEL III Diagnosis: Pain in right shoulder[ICD10: M25.511] Diagnosis: Bicipital tendinitis, right shoulder[ICD10: M75.21] Anum Bradshaw MD, [facility] CPT-4: 72985 01/01/2018 ([id number]) [id number] EST. P ATIENT, LEVEL IV Diagnosis: Essential (primary) hypertension[ICD10: I10] Diagnosis: Underweight[ICD10: R63.6] Diagnosis: Mixed hyperlipidemia[ICD10: E78.2] Diagnosis: Actinic keratosis[ICD10: L57.0] Anum Bradshaw MD, [facility] CPT-4: 95676 12/12/2017 ([id number]) [id number] EST. P ATIENT, LEVEL III Diagnosis: Essential (primary) hypertension[ICD10: I10] Diagnosis: Fracture of unspecified part of neck of left femur, subsequent encounter for closed fracture with routine healing[ICD10: S72.002D] Diagnosis: Underweight[ICD10: R63.6] Anum Bradshaw MD, [facility] CPT-4: 71987 09/13/2017 ([id number]) [id number] EST. P ATIENT, LEVEL IV Diagnosis: Mixed hyperlipidemia[ICD10: E78.2] Diagnosis: Essential (primary) hypertension[ICD10: I10] Diagnosis: Vitamin B12 deficiency anemia due to intrinsic factor deficiency[ICD10: D51.0] Diagnosis: Gastro-esophageal reflux disease with esophagitis[ICD10: K21.0] Diagnosis: Age-related osteoporosis without current pathological fracture[ICD10: M81.0] Diagnosis: Encounter for immunization[ICD10: Z23] Anum Bradshaw MD, [facility] CPT-4: 75265 06/21/2017 ([id number]) [id number] EST. P ATIENT, LEVEL III Diagnosis: Fracture of unspecified part of neck of left femur, subsequent encounter for closed fracture with routine healing[ICD10: S72.002D] Diagnosis: Underweight[ICD10: R63.6] Diagnosis: Gastro-esophageal reflux disease with esophagitis[ICD10: K21.0] Anum Bradshaw MD, [facility] CPT-4: 35449 05/25/2017 ([id number]) [id number] EST. P ATIENT, LEVEL IV Diagnosis: Essential (primary) hypertension[ICD10: I10] Diagnosis: Fracture of unspecified part of neck of left femur, subsequent encounter for closed fracture with routine healing[ICD10: S72.002D] Diagnosis: Generalized anxiety disorder[ICD10: F41.1] Anum Bradshaw MD, [facility] CPT-4: 61491 05/16/2017 ([id number]) [id number] EST. P ATIENT, LEVEL IV Diagnosis: Essential (primary) hypertension[ICD10: I10] Diagnosis: Mixed hyperlipidemia[ICD10: E78.2] Diagnosis: Generalized anxiety disorder[ICD10: F41.1] Anum Bradshaw MD, C CPT-4: 76394 02/15/2017 ([id number]) 76155 EST. P ATIENT, LEVEL IV Diagnosis: Mixed hyperlipidemia[ICD10: E78.2] Diagnosis: Generalized anxiety disorder[ICD10: F41.1] Diagnosis: Essential (primary) hypertension[ICD10: I10] Diagnosis: Gastro-esophageal reflux disease with esophagitis[ICD10: K21.0] Anum Bradshaw MD, [facility] CPT-4: 23860 11/22/2016 66734 EST. PATIENT, LEVEL III Diagnosis: Inflamed seborrheic keratosis[ICD10: L82.0] Kala Bradshaw MD, [facility] CPT-4: 52011 09/15/2016 ([id number]) 05644 EST. P ATIENT, LEVEL IV Diagnosis: Essential (primary) hypertension[ICD10: I10] Diagnosis: Mixed hyperlipidemia[ICD10: E78.2] Diagnosis: Generalized anxiety disorder[ICD10: F41.1] Anum Bradshaw MD, [facility] CPT-4: 21874 09/07/2016 ([id number]) 06283 EST. P ATIENT, LEVEL IV Diagnosis: Essential (primary) hypertension[ICD10: I10] Diagnosis: Frequency of micturition[ICD10: R35.0] Diagnosis: Age-related osteoporosis without current pathological fracture[ICD10: M81.0] Anum Bradshaw MD, [facility] CPT-4: 27563 07/06/2016 ([id number]) 79492 EST. P ATIENT, LEVEL IV Diagnosis: Essential (primary) hypertension[ICD10: I10] Diagnosis: Mixed hyperlipidemia[ICD10: E78.2] Diagnosis: Gastro-esophageal reflux disease with esophagitis[ICD10: K21.0] Anum Bradshaw MD, [facility] CPT-4: 90711 04/06/2016 19033 EST. PATIENT, LEVEL IV Diagnosis: Essential (primary) hypertension[ICD10: I10] Diagnosis: Gastro-esophageal reflux disease with esophagitis[ICD10: K21.0] Kala Bradshaw MD, [facility] CPT-4: 90074 01/06/2016 ([id number]) 46937 EST. P ATIENT, LEVEL IV Diagnosis: Essential (primary) hypertension[ICD10: I10] Diagnosis: Gastro-esophageal reflux disease with esophagitis[ICD10: K21.0] Diagnosis: Other dietary vitamin B12 deficiency anemia[ICD10: D51.3] Diagnosis: Vitamin B12 deficiency anemia due to intrinsic factor deficiency[ICD10: D51.0] Diagnosis: Occlusion and stenosis of unspecified carotid artery[ICD10: I65.29] Anum Bradshaw MD, [facility] CPT-4: 08063 09/02/2015 ([id number]) 56099 EST. P ATIENT, LEVEL III Diagnosis: Carpal tunnel syndrome[ICD9: 354.0] Diagnosis: Inflamed seborrheic keratosis[ICD9: 702.11] Rosalinda Bradshaw MD, [facility] CPT-4: 72782 06/15/2015 ([id number]) OFFICE [facility] Jeancarlos [facility] - LEVEL 4 Diagnosis: ESSENTIAL HYPERTENSION[ICD9: 401.9] Diagnosis: ESOPHAGEAL REFLUX[ICD9: 530.81] Diagnosis: HYPERLIPIDEMIA[ICD9: 272.4] Anum Bradshaw MD, [facility] CPT-4: 52373 03/04/2015 Plan of Care Planned Activity Notes [...] for betamethasone. 09/05/2018 Appointment: An[facility]shaw [facility] (15 min) Moderate 09/05/2018 Patient Education: Patient [...] not improving. 08/15/2018 Appointment: Anum Bradshaw WPtel: [facility] [place] (15 min) Moderate 08/15/2018 Patient Education: Patient Medication Summary Completed 08/15/2018 Patient Education: Hypertension Completed 08/15/2018 Appointment: Anum Bradshaw WPtel: [facility] [place] (15 min) Moderate 2018 Appointment: Injection 06/21/2018 [...] ketoconazole shampoo 05/29/2018 Appointment: Rosalinda Bermudez WPtel: [address] [place] [phone] (30 min) Complex 05/29/2018 Patient Education: Patient [...] if needed 05/14/2018 Appointment: Rosalinda Bermudez WPtel: [address] [place] [phone] (30 min) Complex 05/14/2018 Patient Education: Patient [...] to medications. 04/18/2018 Appointment: Anum Bradshaw WPtel: [phone] [facility] (15 min) Moderate 04/18/2018 Patient Education: Patient Medication Summary Completed 04/18/2018 Appointment: Injection 03/08/2018 Visit Plan: Left shoulder pain - bi cep tendonitis - continue with physical therapy at [facility]. Use voltaren gel on left shoulder now - continue with therapy on right shoulder. 01/22/2018 Appointment: Anum Bradshaw WPtel: [phone] [facility] [place] (15 min) Moderate 01/22/2018 Patient [...] tendonitis - referral to physical therapy at [facility] 01/01/2018 Appointment: Anum Bradshaw WPtel: [phone] [facility] [place] (15 min) Moderate 01/01/2018 Patient Education: [...] weeks 12/12/2017 Appointment: Anum Bradshaw WPtel: [phone] [facility] (15 min) Moderate 12/12/2017 Patient Education: [...] healing. 09/13/2017 Appointment: [facility] Bradshaw [facility]el[phone] (15 min) Moderate 09/13/2017 Patient Education: Patient [...] improving. 06/21/2017 Appointment: Anum Bradshaw [facility]Ptel: [phone] (15 min) Moderate 06/21/2017 Patient Education: Patient Medication Summary Completed 06/21/2017 Visit Plan: Esophageal Reflux - the patient has been taking medication as directed and her symptoms are improved. Hip fracture - continue with supportive care, nonweight bearing. Underweight - increase protein intake, higher calorie diet, use wheelchair to decrease excessive caloric expenditure. 05/25/2017 Appointment: Anum Bradshaw WPtel: [address] [place] [address] (15 min) Moderate 05/25/2017 Patient Education: Patient [...] current medications. 05/16/2017 Appointment: Anum Bradshaw WPtel: [address] [place], [place] [phone] (15 min) Moderate 05/16/2017 Patient Education: [...] normal liver response to medications. 02/15/2017 Appointment: Leeann Anum WPtel: [phone] [facility] [place] (15 min) Moderate 02/15/2017 Patient Education: Patient Medication Summary Completed 02/15/2017 Patient Education: Hypertension Completed 02/15/2017 Care Plan: Referral Order SNOMED-CT : [id number] Pending 02/15/2017 Appointment: Leeann Anum WPtel: [phone] [facility] [place] (15 min) Moderate 01/11/2017 Visit Plan: Hypertension [...] stable - continue current treatment 11/22/2016 Appointment: Aunm Bradshaw [facility]Ptel: [phone] [place] (15 min) Moderate 11/22/2016 Patient Education: Patient Medication Summary Completed 11/22/2016 Patient Education: Hypertension Completed 11/22/2016 Appointment: Rosalinda Bermudez WPtel: [phone] [phone] [place] (30 min) Complex 09/16/2016 Visit [...] monitor symptoms. 09/07/2016 Appointment: Anum Bradshaw WPtel: [facility] [place] (15 min) Moderate 09/07/2016 Patient Education: [...] ua negative 07/06/2016 Appointment: Anum Bradshaw WPtel: [facility] [place] (15 min) Moderate 07/06/2016 Patient Education: [...] not improving. 04/06/2016 Appointment: Anum Bradshaw WPtel: [address] [place], [place] [address] (15 min) Moderate 04/06/2016 Patient Education: Patient [...] 09/02/2015 Care Plan: Referral Order SNOMED-CT : [id number] Ordered 09/02/2015 Appointment: Injection 06/19/2015 Patient Education: [...] improving. 03/04/2015 Appointment: Anum Bradshaw WPtel: [phone] [place] (S) New Patient 03/04/2015 Patient Education: [...]
--- OUTSIDE RECORDS SUMMARY | 2019-12-29 11:26 | XMS REPORT | CCD ---
Author Author Ashley Bradshaw Organization [facility] Address [address] [place] [address] Phone Care Team Providers Care Compliance Nurse Name Role Phone PP Unavailable CCM Unavailable Summary Purpose Interface Exchange Insurance Providers Payer name Policy type / Coverage type Covered democrat ID Effective Begin Date Effective End Date WPS Medicare Part B Medicare Part B [id number] Unknown Unknown CIGNA Medicare Part B [id number] Unknown Unknown Family history Father Diagnosis Age At Onset Coronary Artery Disease Unknown Mother Diagnosis Age At Onset Anemia Unknown Skin cancer Unknown Hypertension Unknown Cancer Unknown Breast cancer Unknown Social History Social History Element Codes Description Effective Dates Marital status Unknown M arried Shahram 03/04/2015 Number of children Unknown 3 03/04/[address]: 222898064 Never smoker 03/04/[address]: 080087295 Never drinks alcohol 03/04/2015 Allergies, Adverse Reactions, Alerts Substance Reaction Codes Entered Date Inactivated Date Status NEOSPORIN RxNorm: 231750 01/06/2016 No Inactive Date Active Past Medical [...] Date Stop Date Sta tus Fill Instructions diltiazem 30 mg tablet RxNorm: 246092 1 Tablet(s) PO QID 10/08/2018 10/02/2019 Active betamethasone nasir te 0.1 % topical cream RxNorm: 762060 1 Application TOP BID 09/05/2018 11/03/2018 Ac tive ketoconazole 2 % top ical cream RxNorm: 017161 1 Application TOP BID to posterior scalp x 2 weeks or until the skin is healed 08/15/2018 08/28/2018 Inactive triamterene 37.5 mg- hydrochlorothiazide 25 mg tablet RxNorm: 492928 Tablet(s) 1 Tablet(s) PO daily 07/12/2018 01/07/2019 Active PLEASE SEND REFILL REQUESTS ELECTRONICALLY simvastatin 20 mg ta blet RxNorm: 179229 TAKE 1 TABLET BY MOUT H EVERY DAY 07/12/2018 01/07/2019 Ac tive ketoconazole 2 % sha mpoo RxNorm: 006336 1 Application TOP BIW 05/14/2018 No Stop Date Active simvastatin 20 mg ta blet RxNorm: 914462 TAKE 1 TABLET BY MOUT H EVERY DAY 03/01/2018 07/11/2018 In active triamterene 37.5 mg- hydrochlorothiazide 25 mg tablet RxNorm: 843229 Tablet(s) 1 Tablet(s) PO daily 02/06/2018 07/11/2018 Inactive PLEASE SEND REFILL REQUESTS ELECTRONICALLY Voltaren 1 % topical gel RxNorm: 226039 2 Gram(s) TOP TID to shoulders 01/01/2018 04/30/2018 In active sucralfate 100 mg/mL oral suspension RxNorm: 019406 10 Milliliter(s) per 1 gram PO QID 12/12/2017 06/09/2018 Inactive refill 3 month supply- 1gm/10ml simvastatin 20 mg ta blet RxNorm: 989288 TAKE 1 TABLET BY MOUT H EVERY DAY 12/04/2017 02/28/2018 In active escitalopram 5 mg ta blet RxNorm: 597541 1 Tablet(s) PO QPM 10/26/2017 01/18/2019 Active esomeprazole magnesi um 40 mg capsule,delayed release RxNorm: 334546 TAKE 1 CAPSULE BY MOUTH DAILY 10/26/2017 01/18/2019 Active mupirocin 2 % topica l ointment RxNorm: 150408 APPLY TO AFFECTED ARE A(S) ONCE DAILY 10/16/2017 11/28/2017 In active diltiazem 30 mg tablet RxNorm: 070295 1 Tablet(s) PO QID 10/09/2017 10/03/2018 Inactive triamterene 37.5 mg- hydrochlorothiazide 25 mg tablet RxNorm: 644838 1 Tablet(s) PO daily 07/28/2017 01/23/2018 Inactive fluticasone 50 mcg/a ctuation nasal spray,suspension RxNorm: 8762469 2 [place] NASAL daily 07/20/2017 01/15/2018 Inactive diltiazem 30 mg tablet RxNorm: 479196 1 Tablet(s) PO QID TAKE 1 TABLET BY MOUT H FOUR TIMES DAILY 07/13/2017 10/08/2017 Inactive simvastatin 20 mg ta blet RxNorm: 131034 TAKE 1 TABLET BY MOUT H EVERY DAY 06/08/2017 12/03/2017 In active Nexium 40 mg capsule ,delayed release RxNorm: 156132 1 Capsule(s) PO daily 05/25/2017 11/27/2017 In active esomeprazole magnesi um 40 mg capsule,delayed release RxNorm: 112397 Capsule(s) TAKE 1 CAPSULE BY MOUTH DAILY 05/17/2017 02/10/2018 Inactive diltiazem 30 mg tablet RxNorm: 384281 Tablet(s) TAKE 1 TABLET BY MOUTH FOUR TI MES DAILY 05/16/2017 07/12/2017 Inactive diltiazem 30 mg tablet RxNorm: 620771 TAKE 1 TABLET BY MOUTH THREE TIMES DAILY 02/09/2017 05/15/2017 In active Zofran ODT 4 mg disi ntegrating tablet RxNorm: 150194 1 Tablet(s) PO Q6 as needed 11/16/2016 11/22/2016 In active Protonix 40 mg table t,delayed release RxNorm: 831825 1 Tablet(s) PO daily 11/16/2016 12/15/2016 In active Protonix 40 mg table t,delayed release RxNorm: 673061 1 Tablet(s) PO daily 11/16/2016 11/15/2016 In active Zofran ODT 4 mg disi ntegrating tablet RxNorm: 247679 1 Tablet(s) PO Q6 as needed 11/16/2016 11/15/2016 In active escitalopram 5 mg ta blet RxNorm: 099105 1 Tablet(s) PO QPM 10/28/2016 10/22/2017 Inactive escitalopram 5 mg ta blet RxNorm: 411906 1 Tablet(s) PO QPM 10/05/2016 10/27/2016 Inactive mupirocin 2 % topica l ointment RxNorm: 705321 1 Application TOP yao ly APPLY TO AFFECTED AREA(S) TOPICALLY DAILY 09/07/2016 11/05/2016 Inactive Efudex 5 % topical c ream RxNorm: 184063 1 TOP BID 09/07/2016 09/16/2016 Inactive escitalopram 5 mg ta blet RxNorm: 613162 1 Tablet(s) PO QPM 09/07/2016 10/04/2016 Inactive sucralfate 100 mg/mL oral suspension RxNorm: 217770 10 Milliliter(s) per 1 gram PO QID 08/03/2016 07/28/2017 Inactive refill 3 month supply- 1gm/10ml clorazepate dipotass ium 3.75 mg tablet RxNorm: 588523 1 Tablet(s) PO QHS as needed insomnia 07/06/2016 08/14/2018 Inactive triamterene 37.5 mg- hydrochlorothiazide 25 mg tablet RxNorm: 071285 1 Tablet(s) PO daily 06/29/2016 06/23/2017 Inactive Nexium 40 mg capsule ,delayed release RxNorm: 573352 1 Capsule(s) PO daily 06/29/2016 07/05/2016 In active Bactroban 2 % topica l ointment RxNorm: 969219 APPLY TO AFFECTED ARE A(S) TOPICALLY DAILY 06/22/2016 09/06/2016 Inactive esomeprazole magnesi um 40 mg capsule,delayed release RxNorm: 739224 TAKE 1 CAPSULE BY MOUTH DAILY 06/13/2016 03/09/2017 Inactive simvastatin 20 mg ta blet RxNorm: 197837 1 Tablet(s) PO daily 05/16/2016 06/07/2017 Inactive simvastatin 20 mg ta blet RxNorm: 353482 1 Tablet(s) PO daily 05/12/2016 05/15/2016 Inactive famotidine 40 mg tablet RxNorm: 411228 TAKE 1 TABLET BY MOUTH DAILY 05/05/2016 01/29/2017 Inactive Bactroban 2 % topica l ointment RxNorm: 558406 APPLY TO AFFECTED ARE A(S) TOPICALLY DAILY 04/25/2016 05/01/2016 Inactive fluticasone 50 mcg/a ctuation nasal spray,suspension RxNorm: 7118190 2 [place] NASAL daily 03/23/2016 09/18/2016 Inactive fluticasone 50 mcg/a ctuation nasal spray,suspension RxNorm: 375890 2 [place] NASAL daily 03/07/2016 03/22/2016 Inactive Bactroban 2 % topica l ointment RxNorm: 656886 APPLY TO AFFECTED ARE A(S) TOPICALLY DAILY 02/29/2016 03/06/2016 Inactive diltiazem 30 mg tablet RxNorm: 230334 1 Tablet(s) PO TID 02/18/2016 02/08/2017 Inactive Bactroban 2 % topica l ointment RxNorm: 650994 1 Application TOP 01/08/2016 02/28/2016 Inactive clorazepate dipotass ium 3.75 mg tablet RxNorm: 810833 1 Tablet(s) PO daily 12/14/2015 06/10/2016 In active fluticasone 50 mcg/a ctuation nasal spray,suspension RxNorm: 741867 2 [place] NASAL daily 12/14/2015 02/11/2016 Inactive diltiazem 30 mg tablet RxNorm: 940615 1 Tablet(s) PO TID 09/03/2015 02/17/2016 Inactive simvastatin 20 mg ta blet RxNorm: 827890 1 Tablet(s) PO daily 08/24/2015 05/11/2016 Inactive triamterene 37.5 mg- hydrochlorothiazide 25 mg tablet RxNorm: 619099 1 Tablet(s) PO daily 07/09/2015 06/28/2016 Inactive clorazepate dipotass ium 15 mg tablet RxNorm: 050922 1 Tablet(s) PO daily 07/06/2015 07/06/2015 In active clorazepate dipotass ium 3.75 mg tablet RxNorm: 585695 1 Tablet(s) PO daily 07/06/2015 12/13/2015 In active esomeprazole magnesi um 40 mg capsule,delayed release RxNorm: 752403 1 Capsule(s) PO daily 06/26/2015 06/12/2016 Inactive famotidine 40 mg tablet RxNorm: 154317 1 Tablet(s) PO daily 06/26/2015 05/04/2016 Inactive diltiazem 30 mg tablet RxNorm: 813781 1 Tablet(s) PO TID 06/09/2015 09/02/2015 Inactive sucralfate 100 mg/mL oral suspension RxNorm: 654732 10 Milliliter(s) per 1 gram PO QID 04/28/2015 04/21/2016 Inactive refill 3 month supply- 1gm/10ml member I d [id number] sucralfate 100 mg/mL oral suspension RxNorm: 290561 10 Milliliter(s) per 1 gram PO QID 04/27/2015 04/27/2015 Inactive refill 3 month supply diltiazem 30 mg tablet RxNorm: 425269 1 Tablet(s) PO TID 02/18/2015 02/17/2015 Inactive diltiazem 30 mg tablet RxNorm: 528492 1 Tablet(s) PO TID 02/18/2015 05/18/2015 Inactive Vitamin D3 2,000 uni t tablet RxNorm: 931929 Tablet(s) PO daily No Start Date Active Nidia ODT oral RxNorm: 115366 oral No Start Date Active PreserVision Lutein oral RxNorm: [address] art Date Active Calcium 500 + D oral RxNorm: 097645 oral No Start Date Active ketoconazole 2 % [facility] RxNorm: 518074 1 TOP daily No Start Date Active ketoconazole 2 % [facility] RxNorm: 779772 TOP No St art Date Active melatonin 5 mg tablet RxNorm: 604518 Tablet(s) PO QHS as needed No Start Date Active vitamin B6-vitamin E -magnesium oral RxNorm: 766375 oral No S tart Date Active famotidine 40 mg tablet RxNorm: 345080 1 Tablet(s) PO daily No Start Date 06/25/2015 Inactive clorazepate dipotass ium 3.75 mg tablet RxNorm: 853238 1 Tablet(s) PO daily No Start Date 07/05/2015 Inactive Bactroban 2 % topica l ointment RxNorm: 617196 1 Application TOP No Start Date 01/07/2016 Inactive Carafate 1 gram tablet RxNorm: 381679 1 Tablet(s) PO QID No Start Date 04/26/2015 Inactive Zyrtec 10 mg tablet RxNorm: 7758052 1 Tablet(s) PO daily No Start Date 08/14/2018 Inactive esomeprazole magnesi um 40 mg capsule,delayed release RxNorm: 594857 Capsule(s) PO daily No Start Date 06/25/2015 Inactive fluticasone 50 mcg/a ctuation nasal spray,suspension RxNorm: 837983 2 [place] NASAL daily No Start Date 12/13/2015 Inactive Nexium 40 mg capsule ,delayed release RxNorm: 855989 1 Capsule(s) PO daily No Start Date 06/28/2016 Inactive triamterene 37.5 mg- hydrochlorothiazide 25 mg tablet RxNorm: 023419 1 Tablet(s) PO daily No Start Date 07/08/2015 Inactive simvastatin 20 mg ta blet RxNorm: 974266 1 Tablet(s) PO daily No Start Date [...] 31.4 pg 04/18/2018 Cbc With Differential Ord2 [place]% 9.2 % 04/18/2018 Cbc With Differential Ord2 [...] 0.76 K/ul 04/18/2018 Cbc With Differential Ord2 [place] ABS# 0.5 K/ul 04/18/2018 Cbc With Differential [...] Ord15 CALCIUM 9.1 mg/dL 04/18/2018 Comp Metabolic Ozz611 NA 130 mEq/L 12/07/2017 Comp Metabolic Mof232 K 3.6 mEq/L 12/07/2017 Comp Metabolic Rqn747 CL 91 mEq/L 12/07/2017 Comp Metabolic Atn820 CO2 29.0 mEq/L 12/07/2017 Comp Metabolic Eka685 AN ION GAP 14 12/07/2017 Comp Metabolic Apk246 GL UCOSE 105 mg/dL 12/07/2017 Comp Metabolic Gfk282 Cr eat 0.6 mg/dL 12/07/2017 Comp Metabolic Iyw695 eG FR 94 ml/min/1.73m2 12/07 Comp Metabolic Eie027 BUN 15 mg/dL 12/07/2017 Comp Metabolic Dqn458 B/ C Ratio 23.4 Ratio 12/07/2017 Comp Metabolic Inz481 CA LCIUM 9.3 mg/dL 12/07/2017 Comp Metabolic Ajv512 AL K PHOS 62 U/L 12/07/2017 Comp Metabolic Wan583 T(SGOT) 31 U/L 12/07/2017 Comp Metabolic Fkh141 AL T(SGPT) 22 U/L 12/07/2017 Comp Metabolic Ikp245 BI LI T 0.4 mg/dL 12/07/2017 Comp Metabolic Vlz406 AL BUMIN 4.3 g/dL 12/07/2017 Comp Metabolic Vea758 TP RO 6.5 g/dL 12/07/2017 Comp Metabolic Mix098 GL OB 2.2 g/dL 12/07/2017 Comp Metabolic Jez186 A/ G Ratio 2.0 Ratio 12/07/2017 Comp Metabolic Nfu714 Os mo 262 mOsmo 12/07/2017 Cbc With [...] 12.3 % 12/07/2017 Cbc With Differential Ord2 [place]% 10.4 % 12/07/2017 Cbc With Differential Ord2 [...] 0.57 K/ul 12/07/2017 Cbc With Differential Ord2 [place] ABS# 0.5 K/ul 12/07/2017 Cbc With Differential [...] 32.3 pg 06/21/2017 Cbc With Differential Ord2 [place]% 10.1 % 06/21/2017 Cbc With Differential Ord2 [...] 0.65 K/ul 06/21/2017 Cbc With Differential Ord2 [place] ABS# 0.5 K/ul 06/21/2017 Cbc With Differential Ord2 Eos ABS# 0.2 K/ul 06/21/2017 Cbc With Differential Ord2 Baso ABS# 0.0 K/ul 06/21/2017 Comp Metabolic Bhz398 NA 133 mEq/L 06/21/2017 Comp Metabolic Hrr788 K 4.0 mEq/L 06/21/2017 Comp Metabolic Kag284 CL 94 mEq/L 06/21/2017 Comp Metabolic Tve559 CO2 25.0 mEq/L 06/21/2017 Comp Metabolic Vte115 AN ION GAP 18 06/21/2017 Comp Metabolic Yba791 GL UCOSE 88 mg/dL 06/21/2017 Comp Metabolic Piu500 Cr eat 0.6 mg/dL 06/21/2017 Comp Metabolic Zjx409 eG FR 94 ml/min/1.73m2 06/21 Comp Metabolic Lbq898 BUN 16 mg/dL 06/21/2017 Comp Metabolic Poc241 B/ C Ratio 25.0 Ratio 06/21/2017 Comp Metabolic Ywx266 CA LCIUM 9.1 mg/dL 06/21/2017 Comp Metabolic Hmn573 AL K PHOS 65 U/L 06/21/2017 Comp Metabolic Yhj388 T(SGOT) 31 U/L 06/21/2017 Comp Metabolic Kcy711 AL T(SGPT) 20 U/L 06/21/2017 Comp Metabolic Tuf927 BI LI T 0.5 mg/dL 06/21/2017 Comp Metabolic Gou851 AL BUMIN 4.3 g/dL 06/21/2017 Comp Metabolic Aat561 TP RO 6.6 g/dL 06/21/2017 Comp Metabolic Lwn468 GL OB 2.3 g/dL 06/21/2017 Comp Metabolic Txt133 A/ G Ratio 1.8 Ratio 06/21/2017 Comp Metabolic Cgu401 Os mo 267 mOsmo 06/21/2017 Lipid Ord30 CHOL 188 mg/dL 06/21/2017 Lipid Ord30 HDL 77.0 mg/dl 06/21/2017 Lipid Ord30 TRIG 66 mg/dL 06/21/2017 Lipid Ord30 LDL 98 mg/dL 06/21/2017 Lipid Ord30 C/HDL 2.4 Ratio 06/21/2017 Tsh Ord6 hTSH II 1.32 uIU/mL 06/21/2017 Comp Metabolic Tsp596 NA 135 mEq/L 02/09/2017 Comp Metabolic Bdg188 K 4.0 mEq/L 02/09/2017 Comp Metabolic Ikx844 CL 96 mEq/L 02/09/2017 Comp Metabolic Tsv086 CO2 28.0 mEq/L 02/09/2017 Comp Metabolic Vqp545 AN ION GAP 15 02/09/2017 Comp Metabolic Uqd738 GL UCOSE 101 mg/dL 02/09/2017 Comp Metabolic Dcj420 Cr eat 0.7 mg/dL 02/09/2017 Comp Metabolic Yhy625 eG FR 83 ml/min/1.73m2 02/09 Comp Metabolic Jkc653 BUN 17 mg/dL 02/09/2017 Comp Metabolic Crf354 B/ C Ratio 23.9 Ratio 02/09/2017 Comp Metabolic Cro651 CA LCIUM 9.3 mg/dL 02/09/2017 Comp Metabolic Inz242 AL K PHOS 51 U/L 02/09/2017 Comp Metabolic Cqr149 T(SGOT) 33 U/L 02/09/2017 Comp Metabolic Czl654 AL T(SGPT) 21 U/L 02/09/2017 Comp Metabolic Nuf957 BI LI T 0.6 mg/dL 02/09/2017 Comp Metabolic Vtc242 AL BUMIN 4.3 g/dL 02/09/2017 Comp Metabolic Nqs011 TP RO 6.9 g/dL 02/09/2017 Comp Metabolic Tfb486 GL OB 2.6 g/dL 02/09/2017 Comp Metabolic Dmw931 A/ G Ratio 1.7 Ratio 02/09/2017 Comp Metabolic Mys896 Os mo 272 mOsmo 02/09/2017 Lipid Ord30 [...] 94.3 fl 02/09/2017 Cbc With Differential Ord2 [place]% 11.3 % 02/09/2017 Cbc With Differential Ord2 [...] 0.77 K/ul 02/09/2017 Cbc With Differential Ord2 [place] ABS# 0.6 K/ul 02/09/2017 Cbc With Differential [...] 31.5 pg 03/29/2016 Cbc With Differential Ord2 [place]% 9.5 % 03/29/2016 Cbc With Differential Ord2 [...] 0.60 K/ul 03/29/2016 Cbc With Differential Ord2 [place] ABS# 0.4 K/ul 03/29/2016 Cbc With Differential Ord2 Eos ABS# 0.1 K/ul 03/29/2016 Cbc With Differential Ord2 Baso ABS# 0.0 K/ul 03/29/2016 Comp Metabolic Ull488 NA 135 mEq/L 03/29/2016 Comp Metabolic Zql227 K 3.7 mEq/L 03/29/2016 Comp Metabolic Jja324 CL 96 mEq/L 03/29/2016 Comp Metabolic Hlk493 CO2 30.0 mEq/L 03/29/2016 Comp Metabolic Hbf206 AN ION GAP 13 03/29/2016 Comp Metabolic Mkh643 GL UCOSE 102 mg/dL 03/29/2016 Comp Metabolic Ihf715 Cr eat 0.6 mg/dL 03/29/2016 Comp Metabolic Dog025 eG FR 94 ml/min/1.73m2 03/29 Comp Metabolic Lib966 BUN 15 mg/dL 03/29/2016 Comp Metabolic Rdd655 B/ C Ratio 23.4 Ratio 03/29/2016 Comp Metabolic Yum752 CA LCIUM 9.1 mg/dL 03/29/2016 Comp Metabolic Vzu906 AL K PHOS 70 U/L 03/29/2016 Comp Metabolic Osh349 T(SGOT) 35 U/L 03/29/2016 Comp Metabolic Nyw191 AL T(SGPT) 27 U/L 03/29/2016 Comp Metabolic Hoo052 BI LI T 0.5 mg/dL 03/29/2016 Comp Metabolic Xkx456 AL BUMIN 4.2 g/dL 03/29/2016 Comp Metabolic Opm863 TP RO 6.6 g/dL 03/29/2016 Comp Metabolic Wam635 GL OB 2.4 g/dL 03/29/2016 Comp Metabolic Pvu723 A/ G Ratio 1.7 Ratio 03/29/2016 Comp Metabolic Gli534 Os mo 271 mOsmo 03/29/2016 Tsh Ord6 hTSH II 1.17 uIU/mL 03/29/2016 B12 Dls590 B12 838.00 pg/ml 09/02/2015 Tsh Ord6 hTSH [...] Ord2 RDW 15.1 % 09/02/2015 Comp Metabolic Weo050 NA 135 mEq/L 09/02/2015 Comp Metabolic Rzn606 K 3.4 mEq/L 09/02/2015 Comp Metabolic Ncg716 CL 95 mEq/L 09/02/2015 Comp Metabolic Ija061 CO2 27.0 mEq/L 09/02/2015 Comp Metabolic Eka086 AN ION GAP 16 09/02/2015 Comp Metabolic Mpg783 GL UCOSE 94 mg/dL 09/02/2015 Comp Metabolic Bwu806 Cr eat 0.7 mg/dL 09/02/2015 Comp Metabolic Geb140 eG FR 87 ml/min/1.73m2 09/02 Comp Metabolic Ffg078 BUN 18 mg/dL 09/02/2015 Comp Metabolic Jqz235 B/ C Ratio 26.1 Ratio 09/02/2015 Comp Metabolic Wxr416 CA LCIUM 9.0 mg/dL 09/02/2015 Comp Metabolic Onu717 AL K PHOS 67 U/L 09/02/2015 Comp Metabolic Akt072 T(SGOT) 30 U/L 09/02/2015 Comp Metabolic Cqa097 AL T(SGPT) 21 U/L 09/02/2015 Comp Metabolic Lte669 BI LI T 0.6 mg/dL 09/02/2015 Comp Metabolic Ioz815 AL BUMIN 4.3 g/dL 09/02/2015 Comp Metabolic Rje013 TP RO 6.8 g/dL 09/02/2015 Comp Metabolic Hvb035 GL OB 2.5 g/dL 09/02/2015 Comp Metabolic Neg156 A/ G Ratio 1.7 Ratio 09/02/2015 Comp Metabolic Her260 Os mo 272 mOsmo 09/02/2015 Lipid Ord30 [...] VACC PRSV FREE I NC ANTIG CPT-4: 92395 06/21/2018 ADMIN INFLUENZA VIRU S VAC CPT-4: G0008 06/21/2017 FLU VACC PRSV FREE I NC ANTIG CPT-4: 98684 06/21/2017 ADMIN INFLUENZA VIRU S VAC CPT-4: G0008 06/24/2016 FLU VACC 4 CRISTINE 3 YRS PLUS IM Assigned to/James Solisa, Formatting Model/CDA Sections SNOMED CT: 68938217 CPT-4: 92917Emfaypw 06/24/2016 ADMIN INFLUENZA VIRU S VAC CPT-4: G0008 06/19/2015 FLU VACC 4 CRISTINE 3 YRS PLUS IM Formatting Model/CDA Sections, Assigned to/Will Carmen SNOMED CT: 28307098 CPT-4: 48666Lvmpzmm 06/19/2015 Vital Signs Date Vital 09/05/2018 Blood Pressure 1: 138/74 Code: 8480-6 BMI: 16.1 Code: 15779-2 Heart Rate 1: 69 bpm Height: 5'2" SpO2: 98% Weight: 89 lbs 8 oz 08/15/2018 Blood Pressure 1: 142/72 Code: 8480-6 BMI: 16.3 Code: 60181-0 Heart Rate 1: 66 bpm Height: 5'2" SpO2: 99% Weight: 90 lbs 8 oz 05/29/2018 Blood Pressure 1: 140/70 Code: 8480-6 BMI: 16.2 Code: 93137-3 Heart Rate 1: 67 bpm Height: 5'2" SpO2: 99% Weight: 90 lbs 05/14/2018 Blood Pressure 1: 146/68 Code: 8480-6 BMI: 16.0 Code: 98355-5 Heart Rate 1: 70 bpm Height: 5'2" SpO2: 98% Weight: 89 lbs 04/18/2018 Blood Pressure 1: 126/68 Code: 8480-6 BMI: 15.7 Code: 00754-9 Heart Rate 1: 81 bpm Height: 5'2" SpO2: 99% Weight: 87 lbs 01/22/2018 Blood Pressure 1: 136/76 Code: 8480-6 BMI: 15.8 Code: 29056-5 Heart Rate 1: 73 bpm Height: 5'2" SpO2: 99% Weight: 88 lbs 01/01/2018 Blood Pressure 1: 148/76 Code: 8480-6 BMI: 15.8 Code: 65784-5 Heart Rate 1: 74 bpm Height: 5'2" SpO2: 98% Weight: 88 lbs 12/12/2017 Blood Pressure 1: 140/72 Code: 8480-6 BMI: 15.8 Code: 26208-3 Heart Rate 1: 65 bpm Height: 5'2" SpO2: 96% Weight: 88 lbs 09/13/2017 Blood Pressure 1: 138/70 Code: 8480-6 BMI: 15.9 Code: 86373-0 Heart Rate 1: 74 bpm Height: 5'2" SpO2: 99% Weight: 88 lbs 8 oz 06/21/2017 Blood Pressure 1: 122/50 Code: 8480-6 BMI: 15.3 Code: 15789-8 Heart Rate 1: 69 bpm Height: 5'2" SpO2: 99% Weight: 85 lbs 05/25/2017 Blood Pressure 1: 138/72 Code: 8480-6 Heart Rate 1: 77 bpm Height: 5'2" SpO2: 98% Weight: 05/16/2017 Blood Pressure 1: 136/78 Code: 8480-6 Heart Rate 1: 86 bpm Height: 5'2" SpO2: 98% Weight: 02/15/2017 Blood Pressure 1: 144/78 Code: 8480-6 BMI: 15.4 Code: 61514-3 Heart Rate 1: 65 bpm Height: 5'2" SpO2: 98% Weight: 85 lbs 8 oz 11/22/2016 Blood Pressure 1: 140/58 Code: 8480-6 BMI: 14.8 Code: 79692-9 Heart Rate 1: 79 bpm Height: 5'2" SpO2: 99% Weight: 82 lbs 09/15/2016 BMI: 16.0 Code: 08066-0 Height: 5'2" Weight: 89 lbs 09/07/2016 Blood Pressure 1: 130/62 Code: 8480-6 BMI: 16.2 Code: 20000-2 Heart Rate 1: 71 bpm Height: 5'2" SpO2: 98% Weight: 90 lbs 07/06/2016 Blood Pressure 1: 144/76 Code: 8480-6 BMI: 15.8 Code: 10397-3 Heart Rate 1: 78 bpm Height: 5'2" SpO2: 99% Weight: 88 lbs 04/06/2016 Blood Pressure 1: 148/58 Code: 8480-6 BMI: 16.2 Code: 38740-0 Heart Rate 1: 64 bpm Height: 5'2" SpO2: 97% Weight: 90 lbs 01/06/2016 Blood Pressure 1: 146/72 Code: 8480-6 BMI: 16.6 Code: 77083-1 Heart Rate 1: 62 bpm Height: 5'2" SpO2: 99% Weight: 92 lbs 09/02/2015 Blood Pressure 1: 132/70 Code: 8480-6 BMI: 16.6 Code: 26878-4 Heart Rate 1: 77 bpm Height: 5'2" SpO2: 98% Weight: 92 lbs 06/15/2015 Blood Pressure 1: 144/60 Code: 8480-6 BMI: 16.7 Code: 91828-5 Heart Rate 1: 66 bpm Height: 5'2" SpO2: 97% Weight: 93 lbs 03/04/2015 Blood Pressure 1: 120/80 Code: 8480-6 BMI: 15.8 Code: 00960-4 Heart Rate 1: 74 bpm Height: 5'2" [...] triggers 02/15/2017 None Hospital Follow Up _ [facility] er: surgery follow up 11/22/2016 None [...] Encounters Encounter Performer Loca tion Codes Date ([id number]) [id number] EST. P ATIENT, LEVEL IV Diagnosis: Essential (primary) hypertension[ICD10: I10] Diagnosis: Rash and other nonspecific skin eruption[ICD10: R21] Anum Bradshaw MD, [facility] CPT-4: 14442 09/05/2018 ([id number] 70814 EST. P ATIENT, LEVEL IV Diagnosis: Essential (primary) hypertension[ICD10: I10] Diagnosis: Tinea barbae and tinea capitis[ICD10: B35.0] Diagnosis: Unsteadiness on feet[ICD10: R26.81] Diagnosis: Weakness[ICD10: R53.1] Anum Bradshaw MD, [facility] CPT-4: 63390 08/15/2018 [id number] [id number] EST. P ATIENT, LEVEL III Diagnosis: Rash and other nonspecific skin eruption[ICD10: R21] Diagnosis: Other allergic rhinitis[ICD10: J30.89] Diagnosis: Gastro-esophageal reflux disease without esophagitis[ICD10: K21.9] Rosalinda Bradshaw MD, [facility] CPT-4: 95153 05/29/2018 ([id number]) 61940 EST. P ATIENT, LEVEL III Diagnosis: Rash and other nonspecific skin eruption[ICD10: R21] Rosalinda Bradshaw MD, [facility] CPT-4: 76177 05/14/2018 ([id number]) 75375 EST. P ATIENT, LEVEL IV Diagnosis: Essential (primary) hypertension[ICD10: I10] Diagnosis: Underweight[ICD10: R63.6] Diagnosis: Mixed hyperlipidemia[ICD10: E78.2] Anum Bradshaw MD, [facility] CPT- 4: 46107 04/18/2018 ([id number]) 17200 EST. P ATIENT, LEVEL III Diagnosis: Bicipital tendinitis, left shoulder[ICD10: M75.22] Anum Bradshaw MD, [facility] CPT-4: 55038 01/22/2018 ([id number]) 43457 EST. P ATIENT, LEVEL III Diagnosis: Pain in right shoulder[ICD10: M25.511] Diagnosis: Bicipital tendinitis, right shoulder[ICD10: M75.21] Anum Bradshaw MD, [facility] CPT-4: 98206 01/01/2018 ([id number]) 17117 EST. P ATIENT, LEVEL IV Diagnosis: Essential (primary) hypertension[ICD10: I10] Diagnosis: Underweight[ICD10: R63.6] Diagnosis: Mixed hyperlipidemia[ICD10: E78.2] Diagnosis: Actinic keratosis[ICD10: L57.0] Anum Bradshaw MD, [facility] CPT-4: 03540 12/12/2017 ([id number]) 55370 EST. P ATIENT, LEVEL III Diagnosis: Essential (primary) hypertension[ICD10: I10] Diagnosis: Fracture of unspecified part of neck of left femur, subsequent encounter for closed fracture with routine healing[ICD10: S72.002D] Diagnosis: Underweight[ICD10: R63.6] Anum Bradshaw MD, [facility] CPT-4: 45494 09/13/2017 ([id number]) 26448 EST. P ATIENT, LEVEL IV Diagnosis: Mixed hyperlipidemia[ICD10: E78.2] Diagnosis: Essential (primary) hypertension[ICD10: I10] Diagnosis: Vitamin B12 deficiency anemia due to intrinsic factor deficiency[ICD10: D51.0] Diagnosis: Gastro-esophageal reflux disease with esophagitis[ICD10: K21.0] Diagnosis: Age-related osteoporosis without current pathological fracture[ICD10: M81.0] Diagnosis: Encounter for immunization[ICD10: Z23] Anum Bradshaw MD, [facility] CPT-4: 64268 06/21/2017 ([id number]) [id number] EST. P ATIENT, LEVEL III Diagnosis: Fracture of unspecified part of neck of left femur, subsequent encounter for closed fracture with routine healing[ICD10: S72.002D] Diagnosis: Underweight[ICD10: R63.6] Diagnosis: Gastro-esophageal reflux disease with esophagitis[ICD10: K21.0] Anum Bradshaw MD, [facility] CPT-4: 04297 05/25/2017 ([id number]) [id number] EST. P ATIENT, LEVEL IV Diagnosis: Essential (primary) hypertension[ICD10: I10] Diagnosis: Fracture of unspecified part of neck of left femur, subsequent encounter for closed fracture with routine healing[ICD10: S72.002D] Diagnosis: Generalized anxiety disorder[ICD10: F41.1] Anum Bradshaw MD, [facility] CPT-4: 04838 05/16/2017 ([id number]) 58112 EST. P ATIENT, LEVEL IV Diagnosis: Essential (primary) hypertension[ICD10: I10] Diagnosis: Mixed hyperlipidemia[ICD10: E78.2] Diagnosis: Generalized anxiety disorder[ICD10: F41.1] Anum Bradshaw MD, [facility] CPT-4: 68009 02/15/2017 ([id number]) [id number] EST. P ATIENT, LEVEL IV Diagnosis: Mixed hyperlipidemia[ICD10: E78.2] Diagnosis: Generalized anxiety disorder[ICD10: F41.1] Diagnosis: Essential (primary) hypertension[ICD10: I10] Diagnosis: Gastro-esophageal reflux disease with esophagitis[ICD10: K21.0] Anum Bradshaw MD, [facility] CPT-4: 87433 11/22/2016 [id number] EST. PATIENT, LEVEL III Diagnosis: Inflamed seborrheic keratosis[ICD10: L82.0] Kala Bradshaw MD, [facility] CPT-4: 93287 09/15/2016 ([id number]) 00614 EST. P ATIENT, LEVEL IV Diagnosis: Essential (primary) hypertension[ICD10: I10] Diagnosis: Mixed hyperlipidemia[ICD10: E78.2] Diagnosis: Generalized anxiety disorder[ICD10: F41.1] Anum Bradshaw MD, [facility] CPT-4: 11369 09/07/2016 ([id number]) 60031 EST. P ATIENT, LEVEL IV Diagnosis: Essential (primary) hypertension[ICD10: I10] Diagnosis: Frequency of micturition[ICD10: R35.0] Diagnosis: Age-related osteoporosis without current pathological fracture[ICD10: M81.0] Anum Bradshaw MD, [facility] CPT-4: 53472 07/06/2016 ([id number]) 24956 EST. P ATIENT, LEVEL IV Diagnosis: Essential (primary) hypertension[ICD10: I10] Diagnosis: Mixed hyperlipidemia[ICD10: E78.2] Diagnosis: Gastro-esophageal reflux disease with esophagitis[ICD10: K21.0] Anum Bradshaw MD, [facility] CPT-4: 22479 04/06/2016 [id number] EST. PATIENT, LEVEL IV Diagnosis: Essential (primary) hypertension[ICD10: I10] Diagnosis: Gastro-esophageal reflux disease with esophagitis[ICD10: K21.0] Kala Bradshaw MD, [facility] CPT-4: 42030 01/06/2016 ([id number]) 97320 EST. P ATIENT, LEVEL IV Diagnosis: Essential (primary) hypertension[ICD10: I10] Diagnosis: Gastro-esophageal reflux disease with esophagitis[ICD10: K21.0] Diagnosis: Other dietary vitamin B12 deficiency anemia[ICD10: D51.3] Diagnosis: Vitamin B12 deficiency anemia due to intrinsic factor deficiency[ICD10: D51.0] Diagnosis: Occlusion and stenosis of unspecified carotid artery[ICD10: I65.29] Anum Bradshaw MD, [facility] CPT-4: 81600 09/02/2015 ([id number]) 89430 EST. P ATIENT, LEVEL III Diagnosis: Carpal tunnel syndrome[ICD9: 354.0] Diagnosis: Inflamed seborrheic keratosis[ICD9: 702.11] [facility] CPT-4: 76326 06/15/2015 ([id number]) OFFICE [facility] Jeancarlos BANNER - LEVEL 4 Diagnosis: ESSENTIAL HYPERTENSION[ICD9: 401.9] Diagnosis: ESOPHAGEAL REFLUX[ICD9: 530.81] Diagnosis: HYPERLIPIDEMIA[ICD9: 272.4] [facility] CPT-4: 91890 03/04/2015 Plan of Care Planned Activity Notes [...] for betamethasone. 09/05/2018 Appointment: Anum Bradshaw WPtel: [facility] (15 min) Moderate 09/05/2018 Patient Education: [...] not improving. 08/15/2018 Appointment: Anum Bradshaw WPtel: [address] [place], [place] [phone] (15 min) Moderate 08/15/2018 Patient Education: Patient Medication Summary Completed 08/15/2018 Patient Education: Hypertension Completed 08/15/2018 Appointment: Anum Bradshaw WPtel: [facility] (15 min) Moderate 2018 Appointment: Injection [...] ketoconazole shampoo 05/29/2018 Appointment: Rosalinda Bermudez WPtel: [address] [place] [address] (30 min) Complex 05/29/2018 Patient Education: Patient [...] if needed 05/14/2018 Appointment: Rosalinda Bermudez WPtel: [address] [place] [address] (30 min) Complex 05/14/2018 Patient Education: Patient [...] to medications. 04/18/2018 App[facility]ment: [phone] [facility] [place] (15 min) Moderate 04/18/2018 Patient Education: Patient Medication Summary Completed 04/18/2018 Appointment: Injection 03/08/2018 Visit Plan: Left shoulder pain - bi cep tendonitis - continue with physical therapy at [facility]. Use voltaren gel on left shoulder now - continue with therapy on right shoulder. 01/22/2018 Appointment: [facility]um Bradshaw [facility] [phone] [facility] [place] (15 min) Moderate 01/22/2018 Patient [...] tendonitis - referral to physical therapy at [facility] 01/01/2018 Appointment: [facility]shaw [facility] [phone] [facility] [place] (15 min) Moderate 01/01/2018 Patient [...] weeks 12/12/2017 Appointment: Anum Bradshaw WPtel: [phone] [facility] (15 min) Moderate 12/12/2017 Patient Education: [...] healing. 09/13/2017 Appointment: Anum Bradshaw WPtel: [phone] [facility] (15 min) Moderate 09/13/2017 Patient Education: [...] improving. 06/21/2017 Appointment: Anum Bradshaw WPtel: [phone] [facility] (15 min) Moderate 06/21/2017 Patient Education: Patient Medication Summary Completed 06/21/2017 Visit Plan: Esophageal Reflux - the patient has been taking medication as directed and her symptoms are improved. Hip fracture - continue with supportive care, nonweight bearing. Underweight - increase protein intake, higher calorie diet, use wheelchair to decrease excessive caloric expenditure. 05/25/2017 Appointment: Anum Bradshaw WPtel: [phone] [facility] (15 min) Moderate 05/25/2017 Patient Education: [...] medications. 05/16/2017 Appointment: [facility] [phone] [facility] (15 min) Moderate 05/16/2017 Patient Education: [...] to medications. 02/15/2017 Appointment: Anum Bradshaw WPtel: [phone] [facility] (15 min) Moderate 02/15/2017 Patient Education: Patient Medication Summary Completed 02/15/2017 Patient Education: Hypertension Completed 02/15/2017 Care Plan: Referral Order SNOMED-CT : [id number] Pending 02/15/2017 Appointment: Anum Bradshaw WPtel: [phone] [facility] (15 min) Moderate 01/11/2017 Visit Plan: [...] current treatment 11/22/2016 Appointment: [facility]shaw [facility] [phone] [facility] (15 min) Moderate 11/22/2016 Patient Education: Patient Medication Summary Completed 11/22/2016 Patient Education: Hypertension Completed 11/22/2016 Appointment: Rosalinda Bermudez WPtel: [phone] [phone] [place] (30 min) Complex 09/16/2016 Visit [...] monitor symptoms. 09/07/2016 Appointment: Anum Bradshaw [facility]Ptel[facility] (15 min) Moderate 09/07/2016 Patient Education: [...] ua negative 07/06/2016 Appointment: Anum Bradshaw [facility]Ptel[facility] [phone] [facility] (15 min) Moderate 07/06/2016 Patient Education: Patient [...] not improving. 04/06/2016 Appointment: Anum Bradshaw WPtel: [facility] (15 min) Moderate 04/06/2016 Patient Education: [...] 09/02/2015 Care Plan: Referral Order SNOMED-CT : [id number] Ordered 09/02/2015 Appointment: Injection 06/19/2015 Patient Education: [...] improving. 03/04/2015 Appointment: Anum Bradshaw [facility]Ptel[facility] [phone] [facility] [place] (S) New Patient 03/04/2015 Patient Education: Patient Medication Summary Completed 03/04/2015 Patient Education: Hypertension Completed 03/04/2015 Patient Education: Patient Medication Summary Completed 02/10/2015 Referral: Dickson Forde Referral Appointment Requested Referral: Kenneth Skyes Referral Appointment Requested Instructions Comment . Rash-scalp -tinea vs psoriasis -scalp scraping [...] situational exposure. No change in current medications. Monitor your blood p ressure at home [...] ketoconazole cream and call if not improving. Forteo - the daily o steoporosis injection [...] high protein diet. Hip fracture - healing. take the carafate at bedtime - continue [...] on lexapro 5mg and monitor symptoms. . Lesion to left joleen e of [...] continue with physical therapy at [facility]. Use voltaren gel on left shoulder now - continue with therapy on right shoulder. efudex - apply to th e skin [...] - referral to physical therapy at [facility] . Esophageal Reflux - the patient has [...] on posterior scalp - rx for betamethasone. INCREASE CARAFATE SWITCH TO NIDIA . Esophageal [...] culture pending-symptoms improved-continue ketoconazole shampoo take the pantoprazol e 40mg at night [...]
--- OUTSIDE RECORDS SUMMARY | 2019-12-29 11:28 | XMS REPORT | CCD ---
Author Author Ashley Bradshaw Organization [facility] Address [address] [place] [address] Phone Care Team Providers Care Helpdesk Manager Name Role Phone PP Unavailable CCM Unavailable Summary Purpose Interface Exchange Insurance Providers Payer name Policy type / Coverage type Covered green party ID Effective Begin Date Effective End Date WPS Medicare Part B Medicare Part B [id number] Unknown Unknown CIGNA Medicare Part B [id number] Unknown Unknown Family history Father Diagnosis Age At Onset Coronary Artery Disease Unknown Mother Diagnosis Age At Onset Anemia Unknown Skin cancer Unknown Hypertension Unknown Cancer Unknown Breast cancer Unknown Social History Social History Element Codes Description Effective Dates Marital status Unknown M arried Shahram 03/04/2015 Number of children Unknown 3 03/04/[address]: 609938351 Never smoker 03/04/[address]: 726420860 Never drinks alcohol 03/04/2015 Allergies, Adverse Reactions, Alerts Substance Reaction Codes Entered Date Inactivated Date Status NEOSPORIN RxNorm: 192963 01/06/2016 No Inactive Date Active Past Medical [...] Date Stop Date Sta tus Fill Instructions betamethasone nasir te 0.1 % topical cream RxNorm: 697977 1 Application TOP BID 09/05/2018 11/03/2018 Ac tive ketoconazole 2 % top ical cream RxNorm: 991024 1 Application TOP BID to posterior scalp x 2 weeks or until the skin is healed 08/15/2018 08/28/2018 Inactive triamterene 37.5 mg- hydrochlorothiazide 25 mg tablet RxNorm: 439084 Tablet(s) 1 Tablet(s) PO daily 07/12/2018 01/07/2019 Active PLEASE SEND REFILL REQUESTS ELECTRONICALLY simvastatin 20 mg ta blet RxNorm: 763230 TAKE 1 TABLET BY MOUT H EVERY DAY 07/12/2018 01/07/2019 Ac tive ketoconazole 2 % sha mpoo RxNorm: 765775 1 Application TOP BIW 05/14/2018 No Stop Date Active simvastatin 20 mg ta blet RxNorm: 189567 TAKE 1 TABLET BY MOUT H EVERY DAY 03/01/2018 07/11/2018 In active triamterene 37.5 mg- hydrochlorothiazide 25 mg tablet RxNorm: 122613 Tablet(s) 1 Tablet(s) PO daily 02/06/2018 07/11/2018 Inactive PLEASE SEND REFILL REQUESTS ELECTRONICALLY Voltaren 1 % topical gel RxNorm: 611219 2 Gram(s) TOP TID to shoulders 01/01/2018 04/30/2018 In active sucralfate 100 mg/mL oral suspension RxNorm: 973229 10 Milliliter(s) per 1 gram PO QID 12/12/2017 06/09/2018 Inactive refill 3 month supply- 1gm/10ml simvastatin 20 mg ta blet RxNorm: 033118 TAKE 1 TABLET BY MOUT H EVERY DAY 12/04/2017 02/28/2018 In active escitalopram 5 mg ta blet RxNorm: 131961 1 Tablet(s) PO QPM 10/26/2017 01/18/2019 Active esomeprazole magnesi um 40 mg capsule,delayed release RxNorm: 369727 TAKE 1 CAPSULE BY MOUTH DAILY 10/26/2017 01/18/2019 Active mupirocin 2 % topica l ointment RxNorm: 460706 APPLY TO AFFECTED ARE A(S) ONCE DAILY 10/16/2017 11/28/2017 In active diltiazem 30 mg tablet RxNorm: 861154 1 Tablet(s) PO QID 10/09/2017 10/03/2018 Active triamterene 37.5 mg- hydrochlorothiazide 25 mg tablet RxNorm: 089019 1 Tablet(s) PO daily 07/28/2017 01/23/2018 Inactive fluticasone 50 mcg/a ctuation nasal spray,suspension RxNorm: 5731353 2 [place] NASAL daily 07/20/2017 01/15/2018 Inactive diltiazem 30 mg tablet RxNorm: 740810 1 Tablet(s) PO QID TAKE 1 TABLET BY MOUT H FOUR TIMES DAILY 07/13/2017 10/08/2017 Inactive simvastatin 20 mg ta blet RxNorm: 590544 TAKE 1 TABLET BY MOUT H EVERY DAY 06/08/2017 12/03/2017 In active Nexium 40 mg capsule ,delayed release RxNorm: 607439 1 Capsule(s) PO daily 05/25/2017 11/27/2017 In active esomeprazole magnesi um 40 mg capsule,delayed release RxNorm: 680432 Capsule(s) TAKE 1 CAPSULE BY MOUTH DAILY 05/17/2017 02/10/2018 Inactive diltiazem 30 mg tablet RxNorm: 891148 Tablet(s) TAKE 1 TABLET BY MOUTH FOUR TI MES DAILY 05/16/2017 07/12/2017 Inactive diltiazem 30 mg tablet RxNorm: 239601 TAKE 1 TABLET BY MOUTH THREE TIMES DAILY 02/09/2017 05/15/2017 In active Zofran ODT 4 mg disi ntegrating tablet RxNorm: 180349 1 Tablet(s) PO Q6 as needed 11/16/2016 11/22/2016 In active Protonix 40 mg table t,delayed release RxNorm: 727141 1 Tablet(s) PO daily 11/16/2016 12/15/2016 In active Protonix 40 mg table t,delayed release RxNorm: 883713 1 Tablet(s) PO daily 11/16/2016 11/15/2016 In active Zofran ODT 4 mg disi ntegrating tablet RxNorm: 502694 1 Tablet(s) PO Q6 as needed 11/16/2016 11/15/2016 In active escitalopram 5 mg ta blet RxNorm: 410568 1 Tablet(s) PO QPM 10/28/2016 10/22/2017 Inactive escitalopram 5 mg ta blet RxNorm: 643464 1 Tablet(s) PO QPM 10/05/2016 10/27/2016 Inactive mupirocin 2 % topica l ointment RxNorm: 057715 1 Application TOP yao ly APPLY TO AFFECTED AREA(S) TOPICALLY DAILY 09/07/2016 11/05/2016 Inactive Efudex 5 % topical c ream RxNorm: 410064 1 TOP BID 09/07/2016 09/16/2016 Inactive escitalopram 5 mg ta blet RxNorm: 628513 1 Tablet(s) PO QPM 09/07/2016 10/04/2016 Inactive sucralfate 100 mg/mL oral suspension RxNorm: 036997 10 Milliliter(s) per 1 gram PO QID 08/03/2016 07/28/2017 Inactive refill 3 month supply- 1gm/10ml clorazepate dipotass ium 3.75 mg tablet RxNorm: 278113 1 Tablet(s) PO QHS as needed insomnia 07/06/2016 08/14/2018 Inactive triamterene 37.5 mg- hydrochlorothiazide 25 mg tablet RxNorm: 129785 1 Tablet(s) PO daily 06/29/2016 06/23/2017 Inactive Nexium 40 mg capsule ,delayed release RxNorm: 048719 1 Capsule(s) PO daily 06/29/2016 07/05/2016 In active Bactroban 2 % topica l ointment RxNorm: 464009 APPLY TO AFFECTED ARE A(S) TOPICALLY DAILY 06/22/2016 09/06/2016 Inactive esomeprazole magnesi um 40 mg capsule,delayed release RxNorm: 797996 TAKE 1 CAPSULE BY MOUTH DAILY 06/13/2016 03/09/2017 Inactive simvastatin 20 mg ta blet RxNorm: 918664 1 Tablet(s) PO daily 05/16/2016 06/07/2017 Inactive simvastatin 20 mg ta blet RxNorm: 926288 1 Tablet(s) PO daily 05/12/2016 05/15/2016 Inactive famotidine 40 mg tablet RxNorm: 797855 TAKE 1 TABLET BY MOUTH DAILY 05/05/2016 01/29/2017 Inactive Bactroban 2 % topica l ointment RxNorm: 847379 APPLY TO AFFECTED ARE A(S) TOPICALLY DAILY 04/25/2016 05/01/2016 Inactive fluticasone 50 mcg/a ctuation nasal spray,suspension RxNorm: 8085835 2 [place] NASAL daily 03/23/2016 09/18/2016 Inactive fluticasone 50 mcg/a ctuation nasal spray,suspension RxNorm: 301866 2 [place] NASAL daily 03/07/2016 03/22/2016 Inactive Bactroban 2 % topica l ointment RxNorm: 856630 APPLY TO AFFECTED ARE A(S) TOPICALLY DAILY 02/29/2016 03/06/2016 Inactive diltiazem 30 mg tablet RxNorm: 790196 1 Tablet(s) PO TID 02/18/2016 02/08/2017 Inactive Bactroban 2 % topica l ointment RxNorm: 375745 1 Application TOP 01/08/2016 02/28/2016 Inactive clorazepate dipotass ium 3.75 mg tablet RxNorm: 209113 1 Tablet(s) PO daily 12/14/2015 06/10/2016 In active fluticasone 50 mcg/a ctuation nasal spray,suspension RxNorm: 954526 2 [place] NASAL daily 12/14/2015 02/11/2016 Inactive diltiazem 30 mg tablet RxNorm: 695655 1 Tablet(s) PO TID 09/03/2015 02/17/2016 Inactive simvastatin 20 mg ta blet RxNorm: 708927 1 Tablet(s) PO daily 08/24/2015 05/11/2016 Inactive triamterene 37.5 mg- hydrochlorothiazide 25 mg tablet RxNorm: 382486 1 Tablet(s) PO daily 07/09/2015 06/28/2016 Inactive clorazepate dipotass ium 15 mg tablet RxNorm: 113400 1 Tablet(s) PO daily 07/06/2015 07/06/2015 In active clorazepate dipotass ium 3.75 mg tablet RxNorm: 884922 1 Tablet(s) PO daily 07/06/2015 12/13/2015 In active esomeprazole magnesi um 40 mg capsule,delayed release RxNorm: 788356 1 Capsule(s) PO daily 06/26/2015 06/12/2016 Inactive famotidine 40 mg tablet RxNorm: 395244 1 Tablet(s) PO daily 06/26/2015 05/04/2016 Inactive diltiazem 30 mg tablet RxNorm: 697346 1 Tablet(s) PO TID 06/09/2015 09/02/2015 Inactive sucralfate 100 mg/mL oral suspension RxNorm: 062816 10 Milliliter(s) per 1 gram PO QID 04/28/2015 04/21/2016 Inactive refill 3 month supply- 1gm/10ml member I d [id number] sucralfate 100 mg/mL oral suspension RxNorm: 298044 10 Milliliter(s) per 1 gram PO QID 04/27/2015 04/27/2015 Inactive refill 3 month supply diltiazem 30 mg tablet RxNorm: 514620 1 Tablet(s) PO TID 02/18/2015 02/17/2015 Inactive diltiazem 30 mg tablet RxNorm: 967018 1 Tablet(s) PO TID 02/18/2015 05/18/2015 Inactive Vitamin D3 2,000 uni t tablet RxNorm: 410602 Tablet(s) PO daily No Start Date Active Nidia ODT oral RxNorm: 616170 oral No Start Date Active PreserVision Lutein oral RxNorm: [address] art Date Active Calcium 500 + D oral RxNorm: 497168 oral No Start Date Active ketoconazole 2 [facility] RxNorm: 720167 1 TOP daily No Start Date Active ketoconazole 2 % [facility] RxNorm: 695316 TOP No St art Date Active melatonin 5 mg tablet RxNorm: 399904 Tablet(s) PO QHS as needed No Start Date Active vitamin B6-vitamin E -magnesium oral RxNorm: 257278 oral No S tart Date Active famotidine 40 mg tablet RxNorm: 484434 1 Tablet(s) PO daily No Start Date 06/25/2015 Inactive clorazepate dipotass ium 3.75 mg tablet RxNorm: 934890 1 Tablet(s) PO daily No Start Date 07/05/2015 Inactive Bactroban 2 % topica l ointment RxNorm: 990758 1 Application TOP No Start Date 01/07/2016 Inactive Carafate 1 gram tablet RxNorm: 226816 1 Tablet(s) PO QID No Start Date 04/26/2015 Inactive Zyrtec 10 mg tablet RxNorm: 7086540 1 Tablet(s) PO daily No Start Date 08/14/2018 Inactive esomeprazole magnesi um 40 mg capsule,delayed release RxNorm: 115130 Capsule(s) PO daily No Start Date 06/25/2015 Inactive fluticasone 50 mcg/a ctuation nasal spray,suspension RxNorm: 878211 2 [place] NASAL daily No Start Date 12/13/2015 Inactive Nexium 40 mg capsule ,delayed release RxNorm: 467537 1 Capsule(s) PO daily No Start Date 06/28/2016 Inactive triamterene 37.5 mg- hydrochlorothiazide 25 mg tablet RxNorm: 945201 1 Tablet(s) PO daily No Start Date 07/08/2015 Inactive simvastatin 20 mg ta blet RxNorm: 491803 1 Tablet(s) PO daily No Start Date [...] 73.6 % 04/18/2018 Cbc With Differential Ord2 Lymph% 13.9 % 04/18/2018 Cbc With Differential Ord2 MCV 93.6 fl 04/18/2018 Cbc With Differential Ord2 MCH 31.4 pg 04/18/2018 Cbc With Differential Ord2 Fisher% 9.2 % 04/18/2018 Cbc With Differential Ord2 Eos% 2.9 % 04/18/2018 Cbc With Differential Ord2 MCHC 33.6 pg 04/18/2018 Cbc With Differential Ord2 Baso% 0.4 % 04/18/2018 Cbc With Differential Ord2 PLT 299 K/ul 04/18/2018 Cbc With Differential Ord2 Neut ABS# 4.01 K/ul 04/18/2018 Cbc With Differential Ord2 RDW 13.7 % 04/18/2018 Cbc With Differential Ord2 Lymph ABS# 0.76 K/ul 04/18/2018 Cbc With Differential Ord2 Fisher ABS# 0.5 K/ul 04/18/2018 Cbc With Differential [...] Ord15 CALCIUM 9.1 mg/dL 04/18/2018 Comp Metabolic Vyz922 NA 130 mEq/L 12/07/2017 Comp Metabolic Vbr542 K 3.6 mEq/L 12/07/2017 Comp Metabolic Wos845 CL 91 mEq/L 12/07/2017 Comp Metabolic Jyj050 CO2 29.0 mEq/L 12/07/2017 Comp Metabolic Kmf708 AN ION GAP 14 12/07/2017 Comp Metabolic Gra319 GL UCOSE 105 mg/dL 12/07/2017 Comp Metabolic Aji506 Cr eat 0.6 mg/dL 12/07/2017 Comp Metabolic Omi648 eG FR 94 ml/min/1.73m2 12/07 Comp Metabolic Qzm817 BUN 15 mg/dL 12/07/2017 Comp Metabolic Daz140 B/ C Ratio 23.4 Ratio 12/07/2017 Comp Metabolic Cmo412 CA LCIUM 9.3 mg/dL 12/07/2017 Comp Metabolic Fet186 AL K PHOS 62 U/L 12/07/2017 Comp Metabolic Gwl299 T(SGOT) 31 U/L 12/07/2017 Comp Metabolic Wcy615 AL T(SGPT) 22 U/L 12/07/2017 Comp Metabolic Ill396 BI LI T 0.4 mg/dL 12/07/2017 Comp Metabolic Ecu661 AL BUMIN 4.3 g/dL 12/07/2017 Comp Metabolic Sxn845 TP RO 6.5 g/dL 12/07/2017 Comp Metabolic Lfu440 GL OB 2.2 g/dL 12/07/2017 Comp Metabolic Mlg148 A/ G Ratio 2.0 Ratio 12/07/2017 Comp Metabolic Scn836 Os mo 262 mOsmo 12/07/2017 Cbc With [...] 12.3 % 12/07/2017 Cbc With Differential Ord2 Fisher% 10.4 % 12/07/2017 Cbc With Differential Ord2 [...] 0.57 K/ul 12/07/2017 Cbc With Differential Ord2 Fisher ABS# 0.5 K/ul 12/07/2017 Cbc With Differential [...] 32.3 pg 06/21/2017 Cbc With Differential Ord2 Fisher% 10.1 % 06/21/2017 Cbc With Differential Ord2 [...] 0.65 K/ul 06/21/2017 Cbc With Differential Ord2 Fisher ABS# 0.5 K/ul 06/21/2017 Cbc With Differential Ord2 Eos ABS# 0.2 K/ul 06/21/2017 Cbc With Differential Ord2 Baso ABS# 0.0 K/ul 06/21/2017 Comp Metabolic Myx251 NA 133 mEq/L 06/21/2017 Comp Metabolic Ytc302 K 4.0 mEq/L 06/21/2017 Comp Metabolic Bai076 CL 94 mEq/L 06/21/2017 Comp Metabolic Gag144 CO2 25.0 mEq/L 06/21/2017 Comp Metabolic Bte442 AN ION GAP 18 06/21/2017 Comp Metabolic Laf631 GL UCOSE 88 mg/dL 06/21/2017 Comp Metabolic Sgi545 Cr eat 0.6 mg/dL 06/21/2017 Comp Metabolic Qhn967 eG FR 94 ml/min/1.73m2 06/21 Comp Metabolic Aqf496 BUN 16 mg/dL 06/21/2017 Comp Metabolic Kqa126 B/ C Ratio 25.0 Ratio 06/21/2017 Comp Metabolic Ryp220 CA LCIUM 9.1 mg/dL 06/21/2017 Comp Metabolic Lii333 AL K PHOS 65 U/L 06/21/2017 Comp Metabolic Ikk262 T(SGOT) 31 U/L 06/21/2017 Comp Metabolic Hbc972 AL T(SGPT) 20 U/L 06/21/2017 Comp Metabolic Uhi439 BI LI T 0.5 mg/dL 06/21/2017 Comp Metabolic Njk054 AL BUMIN 4.3 g/dL 06/21/2017 Comp Metabolic Bcr431 TP RO 6.6 g/dL 06/21/2017 Comp Metabolic Kcf726 GL OB 2.3 g/dL 06/21/2017 Comp Metabolic Ykr717 A/ G Ratio 1.8 Ratio 06/21/2017 Comp Metabolic Cuk581 Os mo 267 mOsmo 06/21/2017 Lipid Ord30 CHOL 188 mg/dL 06/21/2017 Lipid Ord30 HDL 77.0 mg/dl 06/21/2017 Lipid Ord30 TRIG 66 mg/dL 06/21/2017 Lipid Ord30 LDL 98 mg/dL 06/21/2017 Lipid Ord30 C/HDL 2.4 Ratio 06/21/2017 Tsh Ord6 hTSH II 1.32 uIU/mL 06/21/2017 Comp Metabolic Lzu982 NA 135 mEq/L 02/09/2017 Comp Metabolic Hlj119 K 4.0 mEq/L 02/09/2017 Comp Metabolic Rgi852 CL 96 mEq/L 02/09/2017 Comp Metabolic Cre956 CO2 28.0 mEq/L 02/09/2017 Comp Metabolic Nlq468 AN ION GAP 15 02/09/2017 Comp Metabolic Vjz309 GL UCOSE 101 mg/dL 02/09/2017 Comp Metabolic Fgc783 Cr eat 0.7 mg/dL 02/09/2017 Comp Metabolic Lqx439 eG FR 83 ml/min/1.73m2 02/09 Comp Metabolic Cyr837 BUN 17 mg/dL 02/09/2017 Comp Metabolic Kdi134 B/ C Ratio 23.9 Ratio 02/09/2017 Comp Metabolic Zqd797 CA LCIUM 9.3 mg/dL 02/09/2017 Comp Metabolic Bwk849 AL K PHOS 51 U/L 02/09/2017 Comp Metabolic Uuq509 T(SGOT) 33 U/L 02/09/2017 Comp Metabolic Ofx991 AL T(SGPT) 21 U/L 02/09/2017 Comp Metabolic Bow855 BI LI T 0.6 mg/dL 02/09/2017 Comp Metabolic Aon733 AL BUMIN 4.3 g/dL 02/09/2017 Comp Metabolic Cwf881 TP RO 6.9 g/dL 02/09/2017 Comp Metabolic Tyn495 GL OB 2.6 g/dL 02/09/2017 Comp Metabolic Edb393 A/ G Ratio 1.7 Ratio 02/09/2017 Comp Metabolic Xrl030 Os mo 272 mOsmo 02/09/2017 Lipid Ord30 [...] 94.3 fl 02/09/2017 Cbc With Differential Ord2 Fisher% 11.3 % 02/09/2017 Cbc With Differential Ord2 [...] 0.77 K/ul 02/09/2017 Cbc With Differential Ord2 Fisher ABS# 0.6 K/ul 02/09/2017 Cbc With Differential [...] 31.5 pg 03/29/2016 Cbc With Differential Ord2 Fisher% 9.5 % 03/29/2016 Cbc With Differential Ord2 [...] 0.60 K/ul 03/29/2016 Cbc With Differential Ord2 Fisher ABS# 0.4 K/ul 03/29/2016 Cbc With Differential Ord2 Eos ABS# 0.1 K/ul 03/29/2016 Cbc With Differential Ord2 Baso ABS# 0.0 K/ul 03/29/2016 Comp Metabolic Zaq371 NA 135 mEq/L 03/29/2016 Comp Metabolic Qdt848 K 3.7 mEq/L 03/29/2016 Comp Metabolic Hpn690 CL 96 mEq/L 03/29/2016 Comp Metabolic Hyo913 CO2 30.0 mEq/L 03/29/2016 Comp Metabolic Eqt410 AN ION GAP 13 03/29/2016 Comp Metabolic Xgq151 GL UCOSE 102 mg/dL 03/29/2016 Comp Metabolic Ptb269 Cr eat 0.6 mg/dL 03/29/2016 Comp Metabolic Vdu618 eG FR 94 ml/min/1.73m2 03/29 Comp Metabolic Lhd758 BUN 15 mg/dL 03/29/2016 Comp Metabolic Fig105 B/ C Ratio 23.4 Ratio 03/29/2016 Comp Metabolic Tlk017 CA LCIUM 9.1 mg/dL 03/29/2016 Comp Metabolic Uku027 AL K PHOS 70 U/L 03/29/2016 Comp Metabolic Avn832 T(SGOT) 35 U/L 03/29/2016 Comp Metabolic Blx265 AL T(SGPT) 27 U/L 03/29/2016 Comp Metabolic Qkt125 BI LI T 0.5 mg/dL 03/29/2016 Comp Metabolic Xtl546 AL BUMIN 4.2 g/dL 03/29/2016 Comp Metabolic Phl237 TP RO 6.6 g/dL 03/29/2016 Comp Metabolic Uzo734 GL OB 2.4 g/dL 03/29/2016 Comp Metabolic Eky999 A/ G Ratio 1.7 Ratio 03/29/2016 Comp Metabolic Bdw669 Os mo 271 mOsmo 03/29/2016 Tsh Ord6 hTSH II 1.17 uIU/mL 03/29/2016 B12 Qkh352 B12 838.00 pg/ml 09/02/2015 Tsh Ord6 hTSH [...] Ord2 RDW 15.1 % 09/02/2015 Comp Metabolic Ktd598 NA 135 mEq/L 09/02/2015 Comp Metabolic Yle521 K 3.4 mEq/L 09/02/2015 Comp Metabolic Koo469 CL 95 mEq/L 09/02/2015 Comp Metabolic Uxf497 CO2 27.0 mEq/L 09/02/2015 Comp Metabolic Wpd944 AN ION GAP 16 09/02/2015 Comp Metabolic Pav428 GL UCOSE 94 mg/dL 09/02/2015 Comp Metabolic Pys996 Cr eat 0.7 mg/dL 09/02/2015 Comp Metabolic Wap434 eG FR 87 ml/min/1.73m2 09/02 Comp Metabolic Mza404 BUN 18 mg/dL 09/02/2015 Comp Metabolic Iqi150 B/ C Ratio 26.1 Ratio 09/02/2015 Comp Metabolic Iqo221 CA LCIUM 9.0 mg/dL 09/02/2015 Comp Metabolic Uxx765 AL K PHOS 67 U/L 09/02/2015 Comp Metabolic Cai488 T(SGOT) 30 U/L 09/02/2015 Comp Metabolic Zjp718 AL T(SGPT) 21 U/L 09/02/2015 Comp Metabolic Yam387 BI LI T 0.6 mg/dL 09/02/2015 Comp Metabolic Aki986 AL BUMIN 4.3 g/dL 09/02/2015 Comp Metabolic Xfl705 TP RO 6.8 g/dL 09/02/2015 Comp Metabolic Dgp883 GL OB 2.5 g/dL 09/02/2015 Comp Metabolic Zmk457 A/ G Ratio 1.7 Ratio 09/02/2015 Comp Metabolic Mbf492 Os mo 272 mOsmo 09/02/2015 Lipid Ord30 [...] VACC PRSV FREE I NC ANTIG CPT-4: 30067 06/21/2018 ADMIN INFLUENZA VIRU S VAC CPT-4: G0008 06/21/2017 FLU VACC PRSV FREE I NC ANTIG CPT-4: 24930 06/21/2017 ADMIN INFLUENZA VIRU S VAC CPT-4: G0008 06/24/2016 FLU VACC 4 CRISTINE 3 YRS PLUS IM Formatting Model/CDA Sections, Assigned to/Carmen Solis SNMELINDA CT: [id number] CPT-4: 60210Fdsgpju 06/24/2016 ADMIN INFLUENZA VIRU S VAC CPT-4: G0008 06/19/2015 FLU VACC 4 CRISTINE 3 YRS PLUS IM Formatting Model/CDA Sections, Assigned to/Carmen Solis SNOMED CT: 41996716 CPT-4: 71287Opzdcff 06/19/2015 Vital Signs Date Vital 09/05/2018 Blood Pressure 1: 138/74 Code: 8480-6 BMI: 16.1 Code: 47929-7 Heart Rate 1: 69 bpm Height: 5'2" SpO2: 98% Weight: 89 lbs 8 oz 08/15/2018 Blood Pressure 1: 142/72 Code: 8480-6 BMI: 16.3 Code: 17079-6 Heart Rate 1: 66 bpm Height: 5'2" SpO2: 99% Weight: 90 lbs 8 oz 05/29/2018 Blood Pressure 1: 140/70 Code: 8480-6 BMI: 16.2 Code: 48341-2 Heart Rate 1: 67 bpm Height: 5'2" SpO2: 99% Weight: 90 lbs 05/14/2018 Blood Pressure 1: 146/68 Code: 8480-6 BMI: 16.0 Code: 05013-7 Heart Rate 1: 70 bpm Height: 5'2" SpO2: 98% Weight: 89 lbs 04/18/2018 Blood Pressure 1: 126/68 Code: 8480-6 BMI: 15.7 Code: 59627-1 Heart Rate 1: 81 bpm Height: 5'2" SpO2: 99% Weight: 87 lbs 01/22/2018 Blood Pressure 1: 136/76 Code: 8480-6 BMI: 15.8 Code: 25779-0 Heart Rate 1: 73 bpm Height: 5'2" SpO2: 99% Weight: 88 lbs 01/01/2018 Blood Pressure 1: 148/76 Code: 8480-6 BMI: 15.8 Code: 05189-8 Heart Rate 1: 74 bpm Height: 5'2" SpO2: 98% Weight: 88 lbs 12/12/2017 Blood Pressure 1: 140/72 Code: 8480-6 BMI: 15.8 Code: 66458-6 Heart Rate 1: 65 bpm Height: 5'2" SpO2: 96% Weight: 88 lbs 09/13/2017 Blood Pressure 1: 138/70 Code: 8480-6 BMI: 15.9 Code: 08933-3 Heart Rate 1: 74 bpm Height: 5'2" SpO2: 99% Weight: 88 lbs 8 oz 06/21/2017 Blood Pressure 1: 122/50 Code: 8480-6 BMI: 15.3 Code: 21082-8 Heart Rate 1: 69 bpm Height: 5'2" SpO2: 99% Weight: 85 lbs 05/25/2017 Blood Pressure 1: 138/72 Code: 8480-6 Heart Rate 1: 77 bpm Height: 5'2" SpO2: 98% Weight: 05/16/2017 Blood Pressure 1: 136/78 Code: 8480-6 Heart Rate 1: 86 bpm Height: 5'2" SpO2: 98% Weight: 02/15/2017 Blood Pressure 1: 144/78 Code: 8480-6 BMI: 15.4 Code: 60125-4 Heart Rate 1: 65 bpm Height: 5'2" SpO2: 98% Weight: 85 lbs 8 oz 11/22/2016 Blood Pressure 1: 140/58 Code: 8480-6 BMI: 14.8 Code: 02799-4 Heart Rate 1: 79 bpm Height: 5'2" SpO2: 99% Weight: 82 lbs 09/15/2016 BMI: 16.0 Code: 69676-1 Height: 5'2" Weight: 89 lbs 09/07/2016 Blood Pressure 1: 130/62 Code: 8480-6 BMI: 16.2 Code: 70510-4 Heart Rate 1: 71 bpm Height: 5'2" SpO2: 98% Weight: 90 lbs 07/06/2016 Blood Pressure 1: 144/76 Code: 8480-6 BMI: 15.8 Code: 39371-9 Heart Rate 1: 78 bpm Height: 5'2" SpO2: 99% Weight: 88 lbs 04/06/2016 Blood Pressure 1: 148/58 Code: 8480-6 BMI: 16.2 Code: 92841-3 Heart Rate 1: 64 bpm Height: 5'2" SpO2: 97% Weight: 90 lbs 01/06/2016 Blood Pressure 1: 146/72 Code: 8480-6 BMI: 16.6 Code: 96097-3 Heart Rate 1: 62 bpm Height: 5'2" SpO2: 99% Weight: 92 lbs 09/02/2015 Blood Pressure 1: 132/70 Code: 8480-6 BMI: 16.6 Code: 32728-9 Heart Rate 1: 77 bpm Height: 5'2" SpO2: 98% Weight: 92 lbs 06/15/2015 Blood Pressure 1: 144/60 Code: 8480-6 BMI: 16.7 Code: 87910-0 Heart Rate 1: 66 bpm Height: 5'2" SpO2: 97% Weight: 93 lbs 03/04/2015 Blood Pressure 1: 120/80 Code: 8480-6 BMI: 15.8 Code: 92770-2 Heart Rate 1: 74 bpm Height: 5'2" [...] triggers 02/15/2017 None Hospital Follow [facility]: surgery follow up 11/22/2016 None [...] Encounters Encounter Performer Loca tion Codes Date ([id number]) [id number] EST. P ATIENT, LEVEL IV Diagnosis: Essential (primary) hypertension[ICD10: I10] Diagnosis: Rash and other nonspecific skin eruption[ICD10: R21] Anum Bradshaw MD, [facility] CPT-4: 48063 09/05/2018 ([id number] 13407 EST. P ATIENT, LEVEL IV Diagnosis: Essential (primary) hypertension[ICD10: I10] Diagnosis: Tinea barbae and tinea capitis[ICD10: B35.0] Diagnosis: Unsteadiness on feet[ICD10: R26.81] Diagnosis: Weakness[ICD10: R53.1] Anum Bradshaw MD, [facility] CPT-4: 92361 08/15/2018 ([id number]) [id number] EST. P ATIENT, LEVEL III Diagnosis: Rash and other nonspecific skin eruption[ICD10: R21] Diagnosis: Other allergic rhinitis[ICD10: J30.89] Diagnosis: Gastro-esophageal reflux disease without esophagitis[ICD10: K21.9] Rosalinda Bradshaw MD, [facility] CPT-4: 07398 05/29/2018 ([id number]) [id number] EST. P ATIENT, LEVEL III Diagnosis: Rash and other nonspecific skin eruption[ICD10: R21] Rosalinda Bradshaw MD, [facility] CPT-4: 00488 05/14/2018 ([id number]) [id number] EST. P ATIENT, LEVEL IV Diagnosis: Essential (primary) hypertension[ICD10: I10] Diagnosis: Underweight[ICD10: R63.6] Diagnosis: Mixed hyperlipidemia[ICD10: E78.2] Anum Bradshaw MD, [facility] CPT- 4: 79181 04/18/2018 ([id number]) [id number] EST. P ATIENT, LEVEL III Diagnosis: Bicipital tendinitis, left shoulder[ICD10: M75.22] Anum Bradshaw MD, [facility] CPT-4: 26063 01/22/2018 ([id number]) [id number] EST. P ATIENT, LEVEL III Diagnosis: Pain in right shoulder[ICD10: M25.511] Diagnosis: Bicipital tendinitis, right shoulder[ICD10: M75.21] Anum Bradshaw MD, [facility] CPT-4: 57962 01/01/2018 ([id number]) 92782 EST. P ATIENT, LEVEL IV Diagnosis: Essential (primary) hypertension[ICD10: I10] Diagnosis: Underweight[ICD10: R63.6] Diagnosis: Mixed hyperlipidemia[ICD10: E78.2] Diagnosis: Actinic keratosis[ICD10: L57.0] Anum Bradshaw MD, [facility] CPT-4: 00760 12/12/2017 ([id number]) 07784 EST. P ATIENT, LEVEL III Diagnosis: Essential (primary) hypertension[ICD10: I10] Diagnosis: Fracture of unspecified part of neck of left femur, subsequent encounter for closed fracture with routine healing[ICD10: S72.002D] Diagnosis: Underweight[ICD10: R63.6] Anum Bradshaw MD, [facility] CPT-4: 68290 09/13/2017 ([id number]) [id number] EST. P ATIENT, LEVEL IV Diagnosis: Mixed hyperlipidemia[ICD10: E78.2] Diagnosis: Essential (primary) hypertension[ICD10: I10] Diagnosis: Vitamin B12 deficiency anemia due to intrinsic factor deficiency[ICD10: D51.0] Diagnosis: Gastro-esophageal reflux disease with esophagitis[ICD10: K21.0] Diagnosis: Age-related osteoporosis without current pathological fracture[ICD10: M81.0] Diagnosis: Encounter for immunization[ICD10: Z23] Anum Bradshaw MD, [facility] CPT-4: 36640 06/21/2017 ([id number]) 71256 EST. P ATIENT, LEVEL III Diagnosis: Fracture of unspecified part of neck of left femur, subsequent encounter for closed fracture with routine healing[ICD10: S72.002D] Diagnosis: Underweight[ICD10: R63.6] Diagnosis: Gastro-esophageal reflux disease with esophagitis[ICD10: K21.0] Anum Bradshaw MD, [facility] CPT-4: 67108 05/25/2017 ([id number]) 54103 EST. P ATIENT, LEVEL IV Diagnosis: Essential (primary) hypertension[ICD10: I10] Diagnosis: Fracture of unspecified part of neck of left femur, subsequent encounter for closed fracture with routine healing[ICD10: S72.002D] Diagnosis: Generalized anxiety disorder[ICD10: F41.1] Anum Bradshaw MD, [facility] CPT-4: 04154 05/16/2017 ([id number]) 85908 EST. P ATIENT, LEVEL IV Diagnosis: Essential (primary) hypertension[ICD10: I10] Diagnosis: Mixed hyperlipidemia[ICD10: E78.2] Diagnosis: Generalized anxiety disorder[ICD10: F41.1] Anum Bradshaw MD, [facility] CPT-4: 32938 02/15/2017 ([id number]) [id number] EST. P ATIENT, LEVEL IV Diagnosis: Mixed hyperlipidemia[ICD10: E78.2] Diagnosis: Generalized anxiety disorder[ICD10: F41.1] Diagnosis: Essential (primary) hypertension[ICD10: I10] Diagnosis: Gastro-esophageal reflux disease with esophagitis[ICD10: K21.0] Anum Bradshaw MD, [facility] CPT-4: 13228 11/22/2016 [id number] EST. PATIENT, LEVEL III Diagnosis: Inflamed seborrheic keratosis[ICD10: L82.0] Kala Bradshaw MD, [facility] CPT-4: 51213 09/15/2016 ([id number]) [id number] EST. P ATIENT, LEVEL IV Diagnosis: Essential (primary) hypertension[ICD10: I10] Diagnosis: Mixed hyperlipidemia[ICD10: E78.2] Diagnosis: Generalized anxiety disorder[ICD10: F41.1] Anum Bradshaw MD, [facility] CPT-4: 78105 09/07/2016 ([id number]) 17544 EST. P ATIENT, LEVEL IV Diagnosis: Essential (primary) hypertension[ICD10: I10] Diagnosis: Frequency of micturition[ICD10: R35.0] Diagnosis: Age-related osteoporosis without current pathological fracture[ICD10: M81.0] Anum Bradshaw MD, [facility] CPT-4: 58475 07/06/2016 ([id number]) 15471 EST. P ATIENT, LEVEL IV Diagnosis: Essential (primary) hypertension[ICD10: I10] Diagnosis: Mixed hyperlipidemia[ICD10: E78.2] Diagnosis: Gastro-esophageal reflux disease with esophagitis[ICD10: K21.0] Anum Bradshaw MD, [facility] CPT-4: 67092 04/06/2016 [id number] EST. PATIENT, LEVEL IV Diagnosis: Essential (primary) hypertension[ICD10: I10] Diagnosis: Gastro-esophageal reflux disease with esophagitis[ICD10: K21.0] Kala Bradshaw MD, [facility] CPT-4: 32070 01/06/2016 ([id number]) 67344 EST. P ATIENT, LEVEL IV Diagnosis: Essential (primary) hypertension[ICD10: I10] Diagnosis: Gastro-esophageal reflux disease with esophagitis[ICD10: K21.0] Diagnosis: Other dietary vitamin B12 deficiency anemia[ICD10: D51.3] Diagnosis: Vitamin B12 deficiency anemia due to intrinsic factor deficiency[ICD10: D51.0] Diagnosis: Occlusion and stenosis of unspecified carotid artery[ICD10: I65.29] Anum Bradshaw MD, [facility] CPT-4: 72148 09/02/2015 ([id number]) 20247 EST. P ATIENT, LEVEL III Diagnosis: Carpal tunnel syndrome[ICD9: 354.0] Diagnosis: Inflamed seborrheic keratosis[ICD9: 702.11] Rosalinda Bradshaw MD, [facility] CPT-4: 66769 06/15/2015 ([id number]) OFFICE CASS Arshad [facility] - LEVEL 4 Diagnosis: ESSENTIAL HYPERTENSION[ICD9: 401.9] Diagnosis: ESOPHAGEAL REFLUX[ICD9: 530.81] Diagnosis: HYPERLIPIDEMIA[ICD9: 272.4] [facility] CPT-4: 03347 03/04/2015 Plan of Care Planned Activity Notes [...] posterior scalp - rx for betamethasone. 09/05/2018 Patient Education: Patient Medication Summary Completed [...] not improving. 08/15/2018 Appointment: Anum Bradshaw WPtel: [facility]5 [facility] (15 min) Moderate 08/15/2018 Patient Education: Patient Medication Summary Completed 08/15/2018 Patient Education: Hypertension Completed 08/15/2018 Appointment: Anum Bradshaw WPtel[facility] ([facility]) Moderate 2018 Appointment: Injection 06/21/2018 [...] shampoo 05/29/2018 Appointment: Rosalinda Bermudez WPtel: [phone] [phone] (30 min) Complex 05/29/2018 Patient Education: Patient [...] needed 05/14/2018 Appointment: Rosalinda Bermudez WPtel: [phone] [phone] (30 min) Complex 05/14/2018 Patient Education: Patient [...] medications. 04/18/2018 Appointment: [phone] ([facility] min) Moderate 04/18/2018 Patient Education: Patient Medication Summary Completed 04/18/2018 Appointment: Injection 03/08/2018 Visit Plan: Left shoulder pain - bi cep tendonitis - continue with physical therapy at [facility]. Use voltaren gel on left shoulder now - continue with therapy on right shoulder. 01/22/2018 Appointment: Anum Bradshaw WPtel: [phone] [phone] (15 min) Moderate 01/22/2018 Patient Education: [...] tendonitis - referral to physical therapy at [facility] 01/01/2018 Appointment: Anum Bradshaw WPtel: [phone] [facility] (15 min) Moderate 01/01/2018 Patient Education: [...] weeks 12/12/2017 Appointment: Anum Bradshaw WPtel: [phone] [facility] [place] (15 min) Moderate 12/12/2017 Patient Education: [...] - healing. 09/13/2017 Appointment: Anum Bradshaw WPtel: [facility] [place] (15 min) Moderate 09/13/2017 Patient Education: Patient [...] not improving. 06/21/2017 Appointment: Anum Bradshaw WPtel: [facility] [place] (15 min) Moderate 06/21/2017 Patient Education: Patient Medication Summary Completed 06/21/2017 Visit Plan: Esophageal Reflux - the patient has been taking medication as directed and her symptoms are improved. Hip fracture - continue with supportive care, nonweight bearing. Underweight - increase protein intake, higher calorie diet, use wheelchair to decrease excessive caloric expenditure. 05/25/2017 Appointment: Anum Bradshaw WPtel: [facility] [place] (15 min) Moderate 05/25/2017 Patient Education: Patient [...] current medications. 05/16/2017 Appointment: Anum Bradshaw WPtel: [address] [place], [place] [id number] (15 min) Moderate 05/16/2017 Patient Education: Patient [...] to medications. 02/15/2017 Appointment: Anum Bradshaw WPtel: [facility] (15 min) Moderate 02/15/2017 Patient Education: Patient Medication Summary Completed 02/15/2017 Patient Education: Hypertension Completed 02/15/2017 Care Plan: Referral Order SNOMED-CT : [id number] Pending 02/15/2017 Appointment: Anum Bradshaw WPtel: [address] [place], [place] [phone] (15 min) Moderate 01/11/2017 Visit Plan: Hypertension [...] current treatment 11/22/2016 Appointment: Anum Bradshaw WPtel: [facility]5 [facility] (15 min) Moderate 11/22/2016 Patient Education: Patient Medication Summary Completed 11/22/2016 Patient Education: Hypertension Completed 11/22/2016 Appointment: Rosalinda Bermudez WPtel: [facility]5 [phone] (30 min) Complex 09/16/2016 Visit Plan: Lesion [...] monitor symptoms. 09/07/2016 Appointment: Anum Bradshaw WPtel: [phone] (15 min) Moderate 09/07/2016 Patient Education: Patient [...] ua negative 07/06/2016 Appointment: Anum Bradshaw WPtel: [facility]9 [facility] (15 min) Moderate 07/06/2016 Patient Education: [...] the symptoms are not improving. 04/06/2016 Appointment: [facility]mmetty [facility]el[phone] (15 min) Moderate 04/06/2016 Patient Education: [...] 09/02/2015 Care Plan: Referral Order SNOMED-CT : [id number] Ordered 09/02/2015 Appointment: Injection 06/19/2015 Patient Education: [...] improving. 03/04/2015 Appointment: [facility]um Bradshaw [facility]Ptel: [phone] [facility] [place] ([place] New Patient 03/04/2015 Patient [...] tendonitis - referral to physical therapy at [facility] . Hypertension - wel l controlled - continue with current medications, continue with no added salt diet. Pt has been encouraged to exercise daily. The pt has been advised to call the office if there are any acute concerns about change in blood pressure readings at home. Generalized weakness, Gait instability - I have recommended a referral to [facility] for physical therapy balance training. Tinea Capitis [...] - continue with physical therapy at [facility]. Use voltaren gel on left shoulder now [...]
--- OUTSIDE RECORDS SUMMARY | 2019-12-29 11:29 | XMS REPORT | CCD ---
Author Author Ashley Bradshaw Organization [facility] Address [address] [place] [address] Phone Care Team Providers Care Licensed Occupational Therapist Name Role Phone PP Unavailable CCM Unavailable Summary Purpose Interface Exchange Insurance Providers Payer name Policy type / Coverage type Covered republican ID Effective Begin Date Effective End Date WPS Medicare Part B Medicare Part B [id number] Unknown Unknown CIGNA Medicare Part B [id number] Unknown Unknown Family history Father Diagnosis Age At Onset Coronary Artery Disease Unknown Mother Diagnosis Age At Onset Anemia Unknown Skin cancer Unknown Hypertension Unknown Cancer Unknown Breast cancer Unknown Social History Social History Element Codes Description Effective Dates Marital status Unknown M arried Shahram 03/04/2015 Number of children Unknown 3 03/04/[address]: 055766118 Never smoker 03/04/[address]: 276012490 Never drinks alcohol 03/04/2015 Allergies, Adverse Reactions, Alerts Substance Reaction Codes Entered Date Inactivated Date Status NEOSPORIN RxNorm: 095049 01/06/2016 No Inactive Date Active Past Medical History Illness Codes Condition Status Onset Date Resolved Date Essential (primary) hypertension ICD-9: 401.9 ICD-10: I10 Active 03/03/2015 Unknown Tinea barbae and tin ea capitis [...] ICD-9: 477.8 ICD-10: J30.89 Active 05/29/2018 Unknown Rash and other nonsp ecific skin eruption ICD-9: 782.1 ICD-10: R21 Active 05/14/2018 Unknown Mixed hyperlipidemia ICD-9: 272.2 ICD-10: E78.2 [...] hypertension ICD-9: 401.9 ICD-10: I10 03/03/2015 Active Tinea barbae and tin ea capitis [...] rhinitis ICD-9: 477.8 ICD-10: J30.89 05/29/2018 Active Rash and other nonsp ecific skin eruption ICD-9: 782.1 ICD-10: R21 05/14/2018 Active Mixed hyperlipidemia ICD-9: 272.2 ICD-10: E78.2 [...] ketoconazole 2 % top ical cream RxNorm: 035730 1 Application TOP BID to posterior scalp x 2 weeks or until the skin is healed 08/15/2018 08/28/2018 Active triamterene 37.5 mg- hydrochlorothiazide 25 mg tablet RxNorm: 520888 Tablet(s) 1 Tablet(s) PO daily 07/12/2018 01/07/2019 Active PLEASE SEND REFILL REQUESTS ELECTRONICALLY simvastatin 20 mg ta blet RxNorm: 231794 TAKE 1 TABLET BY MOUT H EVERY DAY 07/12/2018 01/07/2019 Ac tive ketoconazole 2 % sha mpoo RxNorm: 633963 1 Application TOP BIW 05/14/2018 No Stop Date Active simvastatin 20 mg ta blet RxNorm: 409588 TAKE 1 TABLET BY MOUT H EVERY DAY 03/01/2018 07/11/2018 In active triamterene 37.5 mg- hydrochlorothiazide 25 mg tablet RxNorm: 708218 Tablet(s) 1 Tablet(s) PO daily 02/06/2018 07/11/2018 Inactive PLEASE SEND REFILL REQUESTS ELECTRONICALLY Voltaren 1 % topical gel RxNorm: 869975 2 Gram(s) TOP TID to shoulders 01/01/2018 04/30/2018 In active sucralfate 100 mg/mL oral suspension RxNorm: 605932 10 Milliliter(s) per 1 gram PO QID 12/12/2017 06/09/2018 Inactive refill 3 month supply- 1gm/10ml simvastatin 20 mg ta blet RxNorm: 783228 TAKE 1 TABLET BY MOUT H EVERY DAY 12/04/2017 02/28/2018 In active escitalopram 5 mg ta blet RxNorm: 057340 1 Tablet(s) PO QPM 10/26/2017 01/18/2019 Active esomeprazole magnesi um 40 mg capsule,delayed release RxNorm: 094508 TAKE 1 CAPSULE BY MOUTH DAILY 10/26/2017 01/18/2019 Active mupirocin 2 % topica l ointment RxNorm: 916219 APPLY TO AFFECTED ARE A(S) ONCE DAILY 10/16/2017 11/28/2017 In active diltiazem 30 mg tablet RxNorm: 653744 1 Tablet(s) PO QID 10/09/2017 10/03/2018 Active triamterene 37.5 mg- hydrochlorothiazide 25 mg tablet RxNorm: 735003 1 Tablet(s) PO daily 07/28/2017 01/23/2018 Inactive fluticasone 50 mcg/a ctuation nasal spray,suspension RxNorm: 4913234 2 [place] NASAL daily 07/20/2017 01/15/2018 Inactive diltiazem 30 mg tablet RxNorm: 234316 1 Tablet(s) PO QID TAKE 1 TABLET BY MOUT H FOUR TIMES DAILY 07/13/2017 10/08/2017 Inactive simvastatin 20 mg ta blet RxNorm: 421923 TAKE 1 TABLET BY MOUT H EVERY DAY 06/08/2017 12/03/2017 In active Nexium 40 mg capsule ,delayed release RxNorm: 087721 1 Capsule(s) PO daily 05/25/2017 11/27/2017 In active esomeprazole magnesi um 40 mg capsule,delayed release RxNorm: 272098 Capsule(s) TAKE 1 CAPSULE BY MOUTH DAILY 05/17/2017 02/10/2018 Inactive diltiazem 30 mg tablet RxNorm: 703407 Tablet(s) TAKE 1 TABLET BY MOUTH FOUR TI MES DAILY 05/16/2017 07/12/2017 Inactive diltiazem 30 mg tablet RxNorm: 565572 TAKE 1 TABLET BY MOUTH THREE TIMES DAILY 02/09/2017 05/15/2017 In active Zofran ODT 4 mg disi ntegrating tablet RxNorm: 735144 1 Tablet(s) PO Q6 as needed 11/16/2016 11/22/2016 In active Protonix 40 mg table t,delayed release RxNorm: 752665 1 Tablet(s) PO daily 11/16/2016 12/15/2016 In active Protonix 40 mg table t,delayed release RxNorm: 030207 1 Tablet(s) PO daily 11/16/2016 11/15/2016 In active Zofran ODT 4 mg disi ntegrating tablet RxNorm: 623667 1 Tablet(s) PO Q6 as needed 11/16/2016 11/15/2016 In active escitalopram 5 mg ta blet RxNorm: 728067 1 Tablet(s) PO QPM 10/28/2016 10/22/2017 Inactive escitalopram 5 mg ta blet RxNorm: 329192 1 Tablet(s) PO QPM 10/05/2016 10/27/2016 Inactive mupirocin 2 % topica l ointment RxNorm: 337166 1 Application TOP yao ly APPLY TO AFFECTED AREA(S) TOPICALLY DAILY 09/07/2016 11/05/2016 Inactive Efudex 5 % topical c ream RxNorm: 246174 1 TOP BID 09/07/2016 09/16/2016 Inactive escitalopram 5 mg ta blet RxNorm: 765940 1 Tablet(s) PO QPM 09/07/2016 10/04/2016 Inactive sucralfate 100 mg/mL oral suspension RxNorm: 247699 10 Milliliter(s) per 1 gram PO QID 08/03/2016 07/28/2017 Inactive refill 3 month supply- 1gm/10ml clorazepate dipotass ium 3.75 mg tablet RxNorm: 688705 1 Tablet(s) PO QHS as needed insomnia 07/06/2016 08/14/2018 Inactive triamterene 37.5 mg- hydrochlorothiazide 25 mg tablet RxNorm: 033078 1 Tablet(s) PO daily 06/29/2016 06/23/2017 Inactive Nexium 40 mg capsule ,delayed release RxNorm: 248750 1 Capsule(s) PO daily 06/29/2016 07/05/2016 In active Bactroban 2 % topica l ointment RxNorm: 109148 APPLY TO AFFECTED ARE A(S) TOPICALLY DAILY 06/22/2016 09/06/2016 Inactive esomeprazole magnesi um 40 mg capsule,delayed release RxNorm: 636102 TAKE 1 CAPSULE BY MOUTH DAILY 06/13/2016 03/09/2017 Inactive simvastatin 20 mg ta blet RxNorm: 350496 1 Tablet(s) PO daily 05/16/2016 06/07/2017 Inactive simvastatin 20 mg ta blet RxNorm: 324642 1 Tablet(s) PO daily 05/12/2016 05/15/2016 Inactive famotidine 40 mg tablet RxNorm: 994182 TAKE 1 TABLET BY MOUTH DAILY 05/05/2016 01/29/2017 Inactive Bactroban 2 % topica l ointment RxNorm: 332901 APPLY TO AFFECTED ARE A(S) TOPICALLY DAILY 04/25/2016 05/01/2016 Inactive fluticasone 50 mcg/a ctuation nasal spray,suspension RxNorm: 5926550 2 [place] NASAL daily 03/23/2016 09/18/2016 Inactive fluticasone 50 mcg/a ctuation nasal spray,suspension RxNorm: 823871 2 [place] NASAL daily 03/07/2016 03/22/2016 Inactive Bactroban 2 % topica l ointment RxNorm: 157404 APPLY TO AFFECTED ARE A(S) TOPICALLY DAILY 02/29/2016 03/06/2016 Inactive diltiazem 30 mg tablet RxNorm: 302544 1 Tablet(s) PO TID 02/18/2016 02/08/2017 Inactive Bactroban 2 % topica l ointment RxNorm: 999137 1 Application TOP 01/08/2016 02/28/2016 Inactive clorazepate dipotass ium 3.75 mg tablet RxNorm: 658845 1 Tablet(s) PO daily 12/14/2015 06/10/2016 In active fluticasone 50 mcg/a ctuation nasal spray,suspension RxNorm: 291929 2 [place] NASAL daily 12/14/2015 02/11/2016 Inactive diltiazem 30 mg tablet RxNorm: 602593 1 Tablet(s) PO TID 09/03/2015 02/17/2016 Inactive simvastatin 20 mg ta blet RxNorm: 661396 1 Tablet(s) PO daily 08/24/2015 05/11/2016 Inactive triamterene 37.5 mg- hydrochlorothiazide 25 mg tablet RxNorm: 498213 1 Tablet(s) PO daily 07/09/2015 06/28/2016 Inactive clorazepate dipotass ium 15 mg tablet RxNorm: 113984 1 Tablet(s) PO daily 07/06/2015 07/06/2015 In active clorazepate dipotass ium 3.75 mg tablet RxNorm: 282587 1 Tablet(s) PO daily 07/06/2015 12/13/2015 In active esomeprazole magnesi um 40 mg capsule,delayed release RxNorm: 233670 1 Capsule(s) PO daily 06/26/2015 06/12/2016 Inactive famotidine 40 mg tablet RxNorm: 297310 1 Tablet(s) PO daily 06/26/2015 05/04/2016 Inactive diltiazem 30 mg tablet RxNorm: 757358 1 Tablet(s) PO TID 06/09/2015 09/02/2015 Inactive sucralfate 100 mg/mL oral suspension RxNorm: 459411 10 Milliliter(s) per 1 gram PO QID 04/28/2015 04/21/2016 Inactive refill 3 month supply- 1gm/10ml member I d [id number] sucralfate 100 mg/mL oral suspension RxNorm: 329743 10 Milliliter(s) per 1 gram PO QID 04/27/2015 04/27/2015 Inactive refill 3 month supply diltiazem 30 mg tablet RxNorm: 236203 1 Tablet(s) PO TID 02/18/2015 02/17/2015 Inactive diltiazem 30 mg tablet RxNorm: 021315 1 Tablet(s) PO TID 02/18/2015 05/18/2015 Inactive Vitamin D3 2,000 uni t tablet RxNorm: 487059 Tablet(s) PO daily No Start Date Active Nidia ODT oral RxNorm: 141397 oral No Start Date Active PreserVision Lutein oral RxNorm: [address] art Date Active Calcium 500 + D oral RxNorm: 538266 oral No Start Date Active melatonin 5 mg tablet RxNorm: 549872 Tablet(s) PO QHS as needed No Start Date Active vitamin B6-vitamin E -magnesium oral RxNorm: 434924 oral No S tart Date Active famotidine 40 mg tablet RxNorm: 034475 1 Tablet(s) PO daily No Start Date 06/25/2015 Inactive clorazepate dipotass ium 3.75 mg tablet RxNorm: 776088 1 Tablet(s) PO daily No Start Date 07/05/2015 Inactive Bactroban 2 % topica l ointment RxNorm: 905413 1 Application TOP No Start Date 01/07/2016 Inactive Carafate 1 gram tablet RxNorm: 605857 1 Tablet(s) PO QID No Start Date 04/26/2015 Inactive Zyrtec 10 mg tablet RxNorm: 2524924 1 Tablet(s) PO daily No Start Date 08/14/2018 Inactive esomeprazole magnesi um 40 mg capsule,delayed release RxNorm: 803188 Capsule(s) PO daily No Start Date 06/25/2015 Inactive fluticasone 50 mcg/a ctuation nasal spray,suspension RxNorm: 291080 2 [place] NASAL daily No Start Date 12/13/2015 Inactive Nexium 40 mg capsule ,delayed release RxNorm: 029328 1 Capsule(s) PO daily No Start Date 06/28/2016 Inactive triamterene 37.5 mg- hydrochlorothiazide 25 mg tablet RxNorm: 710584 1 Tablet(s) PO daily No Start Date 07/08/2015 Inactive simvastatin 20 mg ta blet RxNorm: 299021 1 Tablet(s) PO daily No Start Date [...] (primary) hypertension ICD -10: I10 ICD-9: 401.9 08/15/2018 Unsteadiness on feet ICD-10: R26.81 ICD-9: 781.2 08/15/2018 Weakness ICD-10: R53.1 ICD-9: 780.79 08/15/2018 Tinea barbae and tinea capitis ICD-1 0: B35.0 ICD-9: 110.0 08/15/2018 Encounter for immunization ICD-10: Z 23 ICD-9: V04.81 06/21/2018 Rash and other nonspecific skin eruption ICD-10: R21 ICD-9: 782.1 05/29/2018 Gastro-esophageal reflux disease without esophagitis ICD-10: K21.9 [...] Reason For Visit Effective Dates Notes hypertension 08/15/2018 vaccination against influenza 06/21/2018 rash [...] 12.7 g/dl 04/18/2018 Cbc With Differential Ord2 Neut% 73.6 % 04/18/2018 Cbc With Differential Ord2 HCT 37.8 % 04/18/2018 Cbc With Differential Ord2 MCV 93.6 fl 04/18/2018 Cbc With Differential Ord2 Lymph% 13.9 % 04/18/2018 Cbc With Differential Ord2 MCH 31.4 pg 04/18/2018 Cbc With Differential Ord2 [place]% 9.2 % 04/18/2018 Cbc With Differential Ord2 [...] 0.76 K/ul 04/18/2018 Cbc With Differential Ord2 [place] ABS# 0.5 K/ul 04/18/2018 Cbc With Differential [...] Ord15 CALCIUM 9.1 mg/dL 04/18/2018 Comp Metabolic Lho381 NA 130 mEq/L 12/07/2017 Comp Metabolic Cag817 K 3.6 mEq/L 12/07/2017 Comp Metabolic Umu514 CL 91 mEq/L 12/07/2017 Comp Metabolic Zyk801 CO2 29.0 mEq/L 12/07/2017 Comp Metabolic Ual555 AN ION GAP 14 12/07/2017 Comp Metabolic Jtv866 GL UCOSE 105 mg/dL 12/07/2017 Comp Metabolic Weg833 Cr eat 0.6 mg/dL 12/07/2017 Comp Metabolic Zkl716 eG FR 94 ml/min/1.73m2 12/07 Comp Metabolic Dbf306 BUN 15 mg/dL 12/07/2017 Comp Metabolic Gjx323 B/ C Ratio 23.4 Ratio 12/07/2017 Comp Metabolic Wno777 CA LCIUM 9.3 mg/dL 12/07/2017 Comp Metabolic Ybe832 AL K PHOS 62 U/L 12/07/2017 Comp Metabolic Hgx885 T(SGOT) 31 U/L 12/07/2017 Comp Metabolic Gbv372 AL T(SGPT) 22 U/L 12/07/2017 Comp Metabolic Psl362 BI LI T 0.4 mg/dL 12/07/2017 Comp Metabolic Oco368 AL BUMIN 4.3 g/dL 12/07/2017 Comp Metabolic Hkz792 TP RO 6.5 g/dL 12/07/2017 Comp Metabolic Uxm522 GL OB 2.2 g/dL 12/07/2017 Comp Metabolic Cnk865 A/ G Ratio 2.0 Ratio 12/07/2017 Comp Metabolic Ren054 Os mo 262 mOsmo 12/07/2017 Cbc With Differential Ord2 WBC 4.62 K/ul 12/07/2017 Cbc With Differential Ord2 RBC 3.78 M/ul 12/07/2017 Cbc With Differential Ord2 HGB 11.7 g/dl 12/07/2017 Cbc With Differential Ord2 Neut% 73.2 % 12/07/2017 Cbc With Differential Ord2 HCT 35.3 % 12/07/2017 Cbc With Differential Ord2 MCV 93.4 fl 12/07/2017 Cbc With Differential Ord2 Lymph% 12.3 % 12/07/2017 Cbc With Differential Ord2 MCH 31.0 pg 12/07/2017 Cbc With Differential Ord2 [place]% 10.4 % 12/07/2017 Cbc With Differential Ord2 [...] 0.57 K/ul 12/07/2017 Cbc With Differential Ord2 [place] ABS# 0.5 K/ul 12/07/2017 Cbc With Differential [...] 12.2 g/dl 06/21/2017 Cbc With Differential Ord2 Neut% 71.3 % 06/21/2017 Cbc With Differential Ord2 HCT 35.5 % 06/21/2017 Cbc With Differential Ord2 MCV 93.9 fl 06/21/2017 Cbc With Differential Ord2 Lymph% 14.6 % 06/21/2017 Cbc With Differential Ord2 MCH 32.3 pg 06/21/2017 Cbc With Differential Ord2 [place]% 10.1 % 06/21/2017 Cbc With Differential Ord2 [...] 0.65 K/ul 06/21/2017 Cbc With Differential Ord2 [place] ABS# 0.5 K/ul 06/21/2017 Cbc With Differential Ord2 Eos ABS# 0.2 K/ul 06/21/2017 Cbc With Differential Ord2 Baso ABS# 0.0 K/ul 06/21/2017 Comp Metabolic Vre759 NA 133 mEq/L 06/21/2017 Comp Metabolic Jsz323 K 4.0 mEq/L 06/21/2017 Comp Metabolic Ixx085 CL 94 mEq/L 06/21/2017 Comp Metabolic Cgh379 CO2 25.0 mEq/L 06/21/2017 Comp Metabolic Tjf555 AN ION GAP 18 06/21/2017 Comp Metabolic Lqk095 GL UCOSE 88 mg/dL 06/21/2017 Comp Metabolic Ulc395 Cr eat 0.6 mg/dL 06/21/2017 Comp Metabolic Ndi594 eG FR 94 ml/min/1.73m2 06/21 Comp Metabolic Ffx788 BUN 16 mg/dL 06/21/2017 Comp Metabolic Kyk720 B/ C Ratio 25.0 Ratio 06/21/2017 Comp Metabolic Ncx201 CA LCIUM 9.1 mg/dL 06/21/2017 Comp Metabolic Ehe457 AL K PHOS 65 U/L 06/21/2017 Comp Metabolic Src389 T(SGOT) 31 U/L 06/21/2017 Comp Metabolic Gde603 AL T(SGPT) 20 U/L 06/21/2017 Comp Metabolic Fvy923 BI LI T 0.5 mg/dL 06/21/2017 Comp Metabolic Fce003 AL BUMIN 4.3 g/dL 06/21/2017 Comp Metabolic Moa182 TP RO 6.6 g/dL 06/21/2017 Comp Metabolic Wws505 GL OB 2.3 g/dL 06/21/2017 Comp Metabolic Jzr503 A/ G Ratio 1.8 Ratio 06/21/2017 Comp Metabolic Gwt210 Os mo 267 mOsmo 06/21/2017 Lipid Ord30 CHOL 188 mg/dL 06/21/2017 Lipid Ord30 HDL 77.0 mg/dl 06/21/2017 Lipid Ord30 TRIG 66 mg/dL 06/21/2017 Lipid Ord30 LDL 98 mg/dL 06/21/2017 Lipid Ord30 C/HDL 2.4 Ratio 06/21/2017 Tsh Ord6 hTSH II 1.32 uIU/mL 06/21/2017 Comp Metabolic Ksa114 NA 135 mEq/L 02/09/2017 Comp Metabolic Nbn742 K 4.0 mEq/L 02/09/2017 Comp Metabolic Zbd698 CL 96 mEq/L 02/09/2017 Comp Metabolic Ucp850 CO2 28.0 mEq/L 02/09/2017 Comp Metabolic Mdc871 AN ION GAP 15 02/09/2017 Comp Metabolic Zeg260 GL UCOSE 101 mg/dL 02/09/2017 Comp Metabolic Snd942 Cr eat 0.7 mg/dL 02/09/2017 Comp Metabolic Lkp548 eG FR 83 ml/min/1.73m2 02/09 Comp Metabolic Sos291 BUN 17 mg/dL 02/09/2017 Comp Metabolic Sjm112 B/ C Ratio 23.9 Ratio 02/09/2017 Comp Metabolic Bul109 CA LCIUM 9.3 mg/dL 02/09/2017 Comp Metabolic Ofz024 AL K PHOS 51 U/L 02/09/2017 Comp Metabolic Uke027 T(SGOT) 33 U/L 02/09/2017 Comp Metabolic Fxc288 AL T(SGPT) 21 U/L 02/09/2017 Comp Metabolic Jdh208 BI LI T 0.6 mg/dL 02/09/2017 Comp Metabolic Lnf876 AL BUMIN 4.3 g/dL 02/09/2017 Comp Metabolic Nem793 TP RO 6.9 g/dL 02/09/2017 Comp Metabolic Tge899 GL OB 2.6 g/dL 02/09/2017 Comp Metabolic Swi190 A/ G Ratio 1.7 Ratio 02/09/2017 Comp Metabolic Msv129 Os mo 272 mOsmo 02/09/2017 Lipid Ord30 [...] 38.3 % 02/09/2017 Cbc With Differential Ord2 MCV 94.3 fl 02/09/2017 Cbc With Differential Ord2 Lymph% 15.0 % 02/09/2017 Cbc With Differential Ord2 MCH 31.8 pg 02/09/2017 Cbc With Differential Ord2 [place]% 11.3 % 02/09/2017 Cbc With Differential Ord2 [...] 0.77 K/ul 02/09/2017 Cbc With Differential Ord2 [place] ABS# 0.6 K/ul 02/09/2017 Cbc With Differential [...] 31.5 pg 03/29/2016 Cbc With Differential Ord2 [place]% 9.5 % 03/29/2016 Cbc With Differential Ord2 Eos% 2.7 % 03/29/2016 Cbc With Differential Ord2 MCHC 33.9 pg 03/29/2016 Cbc With Differential Ord2 PLT 313 K/ul 03/29/2016 Cbc With Differential Ord2 Baso% 0.7 % 03/29/2016 Cbc With Differential Ord2 RDW 14.1 % 03/29/2016 Cbc With Differential Ord2 Neut ABS# 3.34 K/ul 03/29/2016 Cbc With Differential Ord2 Lymph ABS# 0.60 K/ul 03/29/2016 Cbc With Differential Ord2 [place] ABS# 0.4 K/ul 03/29/2016 Cbc With Differential Ord2 Eos ABS# 0.1 K/ul 03/29/2016 Cbc With Differential Ord2 Baso ABS# 0.0 K/ul 03/29/2016 Comp Metabolic Bfu905 NA 135 mEq/L 03/29/2016 Comp Metabolic Idw577 K 3.7 mEq/L 03/29/2016 Comp Metabolic Qam587 CL 96 mEq/L 03/29/2016 Comp Metabolic Krc557 CO2 30.0 mEq/L 03/29/2016 Comp Metabolic Ryo470 AN ION GAP 13 03/29/2016 Comp Metabolic Kde895 GL UCOSE 102 mg/dL 03/29/2016 Comp Metabolic Obj302 Cr eat 0.6 mg/dL 03/29/2016 Comp Metabolic Srm683 eG FR 94 ml/min/1.73m2 03/29 Comp Metabolic Rwf774 BUN 15 mg/dL 03/29/2016 Comp Metabolic Cks301 B/ C Ratio 23.4 Ratio 03/29/2016 Comp Metabolic Wis932 CA LCIUM 9.1 mg/dL 03/29/2016 Comp Metabolic Ggr832 AL K PHOS 70 U/L 03/29/2016 Comp Metabolic Ikt817 T(SGOT) 35 U/L 03/29/2016 Comp Metabolic Ekj068 AL T(SGPT) 27 U/L 03/29/2016 Comp Metabolic Uud697 BI LI T 0.5 mg/dL 03/29/2016 Comp Metabolic Ynh448 AL BUMIN 4.2 g/dL 03/29/2016 Comp Metabolic Odj693 TP RO 6.6 g/dL 03/29/2016 Comp Metabolic Efn932 GL OB 2.4 g/dL 03/29/2016 Comp Metabolic Drk614 A/ G Ratio 1.7 Ratio 03/29/2016 Comp Metabolic Ise693 Os mo 271 mOsmo 03/29/2016 Tsh Ord6 hTSH II 1.17 uIU/mL 03/29/2016 B12 Wln040 B12 838.00 pg/ml 09/02/2015 Tsh Ord6 hTSH [...] Ord2 RDW 15.1 % 09/02/2015 Comp Metabolic Tmp562 NA 135 mEq/L 09/02/2015 Comp Metabolic Bsd357 K 3.4 mEq/L 09/02/2015 Comp Metabolic Qrr440 CL 95 mEq/L 09/02/2015 Comp Metabolic Hft729 CO2 27.0 mEq/L 09/02/2015 Comp Metabolic Raj318 AN ION GAP 16 09/02/2015 Comp Metabolic Eoi831 GL UCOSE 94 mg/dL 09/02/2015 Comp Metabolic Ort708 Cr eat 0.7 mg/dL 09/02/2015 Comp Metabolic Oze955 eG FR 87 ml/min/1.73m2 09/02 Comp Metabolic Ufr969 BUN 18 mg/dL 09/02/2015 Comp Metabolic Qul572 B/ C Ratio 26.1 Ratio 09/02/2015 Comp Metabolic Anf704 CA LCIUM 9.0 mg/dL 09/02/2015 Comp Metabolic Zyj991 AL K PHOS 67 U/L 09/02/2015 Comp Metabolic Gee692 T(SGOT) 30 U/L 09/02/2015 Comp Metabolic Ycu986 AL T(SGPT) 21 U/L 09/02/2015 Comp Metabolic Lqh346 BI LI T 0.6 mg/dL 09/02/2015 Comp Metabolic Aei744 AL BUMIN 4.3 g/dL 09/02/2015 Comp Metabolic Fga898 TP RO 6.8 g/dL 09/02/2015 Comp Metabolic Dnn189 GL OB 2.5 g/dL 09/02/2015 Comp Metabolic Suw597 A/ G Ratio 1.7 Ratio 09/02/2015 Comp Metabolic Zlt235 Os mo 272 mOsmo 09/02/2015 Lipid Ord30 CHOL 181 mg/dL 09/02/2015 Lipid Ord30 HDL 66.0 mg/dl 09/02/2015 Lipid Ord30 TRIG 77 mg/dL 09/02/2015 Lipid Ord30 LDL 100 mg/dL 09/02/2015 Lipid Ord30 C/HDL 2.7 Ratio 09/02/2015 Review of Systems System Result Effective Dates Constitutional No recent illness 08/15/2018 Constitutional No [...] VACC PRSV FREE I NC ANTIG CPT-4: 72718 06/21/2018 ADMIN INFLUENZA VIRU S VAC CPT-4: G0008 06/21/2017 FLU VACC PRSV FREE I NC ANTIG CPT-4: 10162 06/21/2017 ADMIN INFLUENZA VIRU S VAC CPT-4: G0008 06/24/2016 FLU VACC 4 CRISTINE 3 YRS PLUS IM Formatting Model/CDA Sections, Assigned to/Carmen Solis SNOMED CT: [id number] CPT-4: 09374Lxfygli 06/24/2016 ADMIN INFLUENZA VIRU S VAC CPT-4: G0008 06/19/2015 FLU VACC 4 CRISTINE 3 YRS PLUS IM Formatting Model/CDA Sections, Assigned to/Carmen Solis SNOMED CT: 93076865 CPT-4: 63223Turhcqi 06/19/2015 Vital Signs Date Vital 08/15/2018 Blood Pressure 1: 142/72 Code: 8480-6 BMI: 16.3 Code: 50210-9 Heart Rate 1: 66 bpm Height: 5'2" SpO2: 99% Weight: 90 lbs 8 oz 05/29/2018 Blood Pressure 1: 140/70 Code: 8480-6 BMI: 16.2 Code: 42637-7 Heart Rate 1: 67 bpm Height: 5'2" SpO2: 99% Weight: 90 lbs 05/14/2018 Blood Pressure 1: 146/68 Code: 8480-6 BMI: 16.0 Code: 47222-8 Heart Rate 1: 70 bpm Height: 5'2" SpO2: 98% Weight: 89 lbs 04/18/2018 Blood Pressure 1: 126/68 Code: 8480-6 BMI: 15.7 Code: 26953-2 Heart Rate 1: 81 bpm Height: 5'2" SpO2: 99% Weight: 87 lbs 01/22/2018 Blood Pressure 1: 136/76 Code: 8480-6 BMI: 15.8 Code: 20839-2 Heart Rate 1: 73 bpm Height: 5'2" SpO2: 99% Weight: 88 lbs 01/01/2018 Blood Pressure 1: 148/76 Code: 8480-6 BMI: 15.8 Code: 06147-2 Heart Rate 1: 74 bpm Height: 5'2" SpO2: 98% Weight: 88 lbs 12/12/2017 Blood Pressure 1: 140/72 Code: 8480-6 BMI: 15.8 Code: 40022-1 Heart Rate 1: 65 bpm Height: 5'2" SpO2: 96% Weight: 88 lbs 09/13/2017 Blood Pressure 1: 138/70 Code: 8480-6 BMI: 15.9 Code: 65447-0 Heart Rate 1: 74 bpm Height: 5'2" SpO2: 99% Weight: 88 lbs 8 oz 06/21/2017 Blood Pressure 1: 122/50 Code: 8480-6 BMI: 15.3 Code: 75910-2 Heart Rate 1: 69 bpm Height: 5'2" SpO2: 99% Weight: 85 lbs 05/25/2017 Blood Pressure 1: 138/72 Code: 8480-6 Heart Rate 1: 77 bpm Height: 5'2" SpO2: 98% Weight: 05/16/2017 Blood Pressure 1: 136/78 Code: 8480-6 Heart Rate 1: 86 bpm Height: 5'2" SpO2: 98% Weight: 02/15/2017 Blood Pressure 1: 144/78 Code: 8480-6 BMI: 15.4 Code: 72972-9 Heart Rate 1: 65 bpm Height: 5'2" SpO2: 98% Weight: 85 lbs 8 oz 11/22/2016 Blood Pressure 1: 140/58 Code: 8480-6 BMI: 14.8 Code: 13058-0 Heart Rate 1: 79 bpm Height: 5'2" SpO2: 99% Weight: 82 lbs 09/15/2016 BMI: 16.0 Code: 79700-3 Height: 5'2" Weight: 89 lbs 09/07/2016 Blood Pressure 1: 130/62 Code: 8480-6 BMI: 16.2 Code: 83260-7 Heart Rate 1: 71 bpm Height: 5'2" SpO2: 98% Weight: 90 lbs 07/06/2016 Blood Pressure 1: 144/76 Code: 8480-6 BMI: 15.8 Code: 82367-9 Heart Rate 1: 78 bpm Height: 5'2" SpO2: 99% Weight: 88 lbs 04/06/2016 Blood Pressure 1: 148/58 Code: 8480-6 BMI: 16.2 Code: 90448-2 Heart Rate 1: 64 bpm Height: 5'2" SpO2: 97% Weight: 90 lbs 01/06/2016 Blood Pressure 1: 146/72 Code: 8480-6 BMI: 16.6 Code: 44152-6 Heart Rate 1: 62 bpm Height: 5'2" SpO2: 99% Weight: 92 lbs 09/02/2015 Blood Pressure 1: 132/70 Code: 8480-6 BMI: 16.6 Code: 87605-9 Heart Rate 1: 77 bpm Height: 5'2" SpO2: 98% Weight: 92 lbs 06/15/2015 Blood Pressure 1: 144/60 Code: 8480-6 BMI: 16.7 Code: 40117-7 Heart Rate 1: 66 bpm Height: 5'2" SpO2: 97% Weight: 93 lbs 03/04/2015 Blood Pressure 1: 120/80 Code: 8480-6 BMI: 15.8 Code: 73856-1 Heart Rate 1: 74 bpm Height: 5'2" Weight: 88 lbs Functional Status No Functional Status data History of Present Illness Symptom Name Status Resu lt Effective Date Notes hypertension Quality chr onic 08/15/2018 None hypertension [...] shoulder 01/22/2018 None shoulder pain Quality ac [place] 01/22/2018 None shoulder pain Quality co nstant [...] nstant 01/01/2018 None shoulder pain Quality ac [place] 01/01/2018 None shoulder pain Quality wo rsening [...] Encounters Encounter Performer Loca tion Codes Date ([id number]) [id number] EST. P ATIENT, LEVEL IV Diagnosis: Essential (primary) hypertension[ICD10: I10] Diagnosis: Tinea barbae and tinea capitis[ICD10: B35.0] Diagnosis: Unsteadiness on feet[ICD10: R26.81] Diagnosis: Weakness[ICD10: R53.1] [facility] CPT-4: 63696 08/15/2018 ([id number]) 81686 EST. P ATIENT, LEVEL III Diagnosis: Rash and other nonspecific skin eruption[ICD10: R21] Diagnosis: Other allergic rhinitis[ICD10: J30.89] Diagnosis: Gastro-esophageal reflux disease without esophagitis[ICD10: K21.9] Rosalinda Bradshaw MD, [facility] CPT-4: 10847 05/29/2018 ([id number]) 36056 EST. P ATIENT, LEVEL III Diagnosis: Rash and other nonspecific skin eruption[ICD10: R21] Rosalinda Bradshaw MD, [facility] CPT-4: 56760 05/14/2018 ([id number]) 11255 EST. P ATIENT, LEVEL IV Diagnosis: Essential (primary) hypertension[ICD10: I10] Diagnosis: Underweight[ICD10: R63.6] Diagnosis: Mixed hyperlipidemia[ICD10: E78.2] Anum Bradshaw MD, [facility] CPT- 4: 42152 04/18/2018 ([id number]) 08135 EST. P ATIENT, LEVEL III Diagnosis: Bicipital tendinitis, left shoulder[ICD10: M75.22] Anum Bradshaw MD, [facility] CPT-4: 68517 01/22/2018 ([id number]) 72555 EST. P ATIENT, LEVEL III Diagnosis: Pain in right shoulder[ICD10: M25.511] Diagnosis: Bicipital tendinitis, right shoulder[ICD10: M75.21] Anum Bradshaw MD, [facility] CPT-4: [address] 01/01/2018 ([id number]) 25862 EST. P ATIENT, LEVEL IV Diagnosis: Essential (primary) hypertension[ICD10: I10] Diagnosis: Underweight[ICD10: R63.6] Diagnosis: Mixed hyperlipidemia[ICD10: E78.2] Diagnosis: Actinic keratosis[ICD10: L57.0] Anum Bradshaw MD, [facility] CPT-4: 86501 12/12/2017 ([id number]) 09427 EST. P ATIENT, LEVEL III Diagnosis: Essential (primary) hypertension[ICD10: I10] Diagnosis: Fracture of unspecified part of neck of left femur, subsequent encounter for closed fracture with routine healing[ICD10: S72.002D] Diagnosis: Underweight[ICD10: R63.6] Anum Bradshaw MD, [facility] CPT-4: 40341 09/13/2017 ([id number]) 43107 EST. P ATIENT, LEVEL IV Diagnosis: Mixed hyperlipidemia[ICD10: E78.2] Diagnosis: Essential (primary) hypertension[ICD10: I10] Diagnosis: Vitamin B12 deficiency anemia due to intrinsic factor deficiency[ICD10: D51.0] Diagnosis: Gastro-esophageal reflux disease with esophagitis[ICD10: K21.0] Diagnosis: Age-related osteoporosis without current pathological fracture[ICD10: M81.0] Diagnosis: Encounter for immunization[ICD10: Z23] Anum Bradshaw MD, [facility] CPT-4: 37248 06/21/2017 ([id number]) 18187 EST. P ATIENT, LEVEL III Diagnosis: Fracture of unspecified part of neck of left femur, subsequent encounter for closed fracture with routine healing[ICD10: S72.002D] Diagnosis: Underweight[ICD10: R63.6] Diagnosis: Gastro-esophageal reflux disease with esophagitis[ICD10: K21.0] Anum Bradshaw MD, [facility] CPT-4: 49460 05/25/2017 ([id number]) 90432 EST. P ATIENT, LEVEL IV Diagnosis: Essential (primary) hypertension[ICD10: I10] Diagnosis: Fracture of unspecified part of neck of left femur, subsequent encounter for closed fracture with routine healing[ICD10: S72.002D] Diagnosis: Generalized anxiety disorder[ICD10: F41.1] Anum Bradshaw MD, [facility] CPT-4: 75784 05/16/2017 ([id number]) 18962 EST. P ATIENT, LEVEL IV Diagnosis: Essential (primary) hypertension[ICD10: I10] Diagnosis: Mixed hyperlipidemia[ICD10: E78.2] Diagnosis: Generalized anxiety disorder[ICD10: F41.1] Anum Bradshaw MD, C CPT-4: 87834 02/15/2017 ([id number]) 31091 EST. P ATIENT, LEVEL IV Diagnosis: Mixed hyperlipidemia[ICD10: E78.2] Diagnosis: Generalized anxiety disorder[ICD10: F41.1] Diagnosis: Essential (primary) hypertension[ICD10: I10] Diagnosis: Gastro-esophageal reflux disease with esophagitis[ICD10: K21.0] Anum Bradshaw MD, [facility] CPT-4: 69836 11/22/2016 [id number] EST. PATIENT, LEVEL III Diagnosis: Inflamed seborrheic keratosis[ICD10: L82.0] Kala Bradshaw MD, [facility] CPT-4: 25028 09/15/2016 ([id number]) 52636 EST. P ATIENT, LEVEL IV Diagnosis: Essential (primary) hypertension[ICD10: I10] Diagnosis: Mixed hyperlipidemia[ICD10: E78.2] Diagnosis: Generalized anxiety disorder[ICD10: F41.1] Anum Bradshaw MD, [facility] CPT-4: 90600 09/07/2016 ([id number]) 25571 EST. P ATIENT, LEVEL IV Diagnosis: Essential (primary) hypertension[ICD10: I10] Diagnosis: Frequency of micturition[ICD10: R35.0] Diagnosis: Age-related osteoporosis without current pathological fracture[ICD10: M81.0] Anum Bradshaw MD, [facility] CPT-4: 05299 07/06/2016 ([id number]) 63515 EST. P ATIENT, LEVEL IV Diagnosis: Essential (primary) hypertension[ICD10: I10] Diagnosis: Mixed hyperlipidemia[ICD10: E78.2] Diagnosis: Gastro-esophageal reflux disease with esophagitis[ICD10: K21.0] Anum Bradshaw MD, [facility] CPT-4: 79042 04/06/2016 [id number] EST. PATIENT, LEVEL IV Diagnosis: Essential (primary) hypertension[ICD10: I10] Diagnosis: Gastro-esophageal reflux disease with esophagitis[ICD10: K21.0] Kala Bradshaw MD, [facility] CPT-4: 10293 01/06/2016 ([id number]) 68752 EST. P ATIENT, LEVEL IV Diagnosis: Essential (primary) hypertension[ICD10: I10] Diagnosis: Gastro-esophageal reflux disease with esophagitis[ICD10: K21.0] Diagnosis: Other dietary vitamin B12 deficiency anemia[ICD10: D51.3] Diagnosis: Vitamin B12 deficiency anemia due to intrinsic factor deficiency[ICD10: D51.0] Diagnosis: Occlusion and stenosis of unspecified carotid artery[ICD10: I65.29] [facility] CPT-4: 60298 09/02/2015 ([id number]) 42815 EST. [facility] Diagnosis: Carpal tunnel syndrome[ICD9: 354.0] Diagnosis: Inflamed seborrheic keratosis[ICD9: 702.11] [facility] CPT-4: 34025 06/15/2015 ([id number]) OFFICE [facility] - LEVEL 4 Diagnosis: ESSENTIAL HYPERTENSION[ICD9: 401.9] Diagnosis: ESOPHAGEAL REFLUX[ICD9: 530.81] Diagnosis: HYPERLIPIDEMIA[ICD9: 272.4] [facility] CPT-4: 39044 03/04/2015 Plan of Care Planned Activity Notes C odes Status Date Patient Education: Patient Medication Summary Completed 08/15/2018 Patient Education: Hypertension Completed 08/15/2018 Appointment[facility] [phone] [facility] [place] ([facility] min) Moderate 2018 Appointment: Injection 06/21/2018 Patient Education: Patient Medication Summary Completed 06/21/2018 App[facility]ment[facility] [phone] [phone] [place] (30 min) Complex 05/29/2018 Patient Education: Patient Medication Summary Completed 05/29/2018 Appointment: [facility] [phone] [phone] [place] (30 min) Complex 05/14/2018 Patient Education: Patient Medication Summary Completed 05/14/2018 Appointment: [facility] [phone] [facility] [place] (15 min) Moderate 04/18/2018 Patient Education: Patient Medication Summary Completed 04/18/2018 Appointment: Injection 03/08/2018 Appointment: [facility] [phone] [facility] [place] (15 min) Moderate 01/22/2018 Patient Education: Patient Medication Summary Completed 01/22/2018 Appointment: [facility] [phone] [facility] [place] (15 min) Moderate 01/01/2018 Patient Education: Patient Medication Summary Completed 01/01/2018 App[facility]ment: [facility] [phone] [facility] [place] (15 min) Moderate 12/12/2017 Patient Education: Patient Medication Summary Completed 12/12/2017 App[facility]ment: [facility] [phone] [facility] [place] ([place] min) Moderate 09/13/2017 Patient Education: Patient Medication Summary Completed 09/13/2017 App[facility]ment: [facility] [phone] [facility] [place] (15 min) Moderate 06/21/2017 Patient Education: Patient Medication Summary Completed 06/21/2017 App[facility]ment: [facility] [phone] [facility] [place] (15 min) Moderate 05/25/2017 Patient Education: Patient Medication Summary Completed 05/25/2017 App[facility]ment: [facility] [phone] [facility] [place] (15 min) Moderate 05/16/2017 Patient Education: Patient Medication Summary Completed 05/16/2017 Patient Education: Hypertension Completed 05/16/2017 Referral: Dickson Forde Patient i nformed. Referral info faxed. Completed 02/27/2017 Appointment: [facility] [phone] [facility] [place] (15 min) Moderate 02/15/2017 Patient Education: Patient Medication Summary Completed 02/15/2017 Patient Education: Hypertension Completed 02/15/2017 Care Plan: Referral Order SNOMED-CT : [id number] Pending 02/15/2017 Appointment: [facility] [phone] [facility] [place] (15 min) Moderate 01/11/2017 Appointment: [facility] [phone] [facility] (15 min) Moderate 11/22/2016 Patient Education: Patient Medication Summary Completed 11/22/2016 Patient Education: Hypertension Completed 11/22/2016 Appointment: [facility] [phone] [phone] [place] (30 min) Complex 09/16/2016 Patient Education: Patient Medication Summary Completed 09/15/2016 Appointment: Anum Bradshaw WPtel: [phone] [facility] [place] (15 min) Moderate 09/07/2016 Patient Education: Patient Medication Summary Completed 09/07/2016 Patient Education: Hypertension Completed 09/07/2016 Appointment: Anum Bradshaw WPtel: [facility] (15 min) Moderate 07/06/2016 Patient Education: Patient Medication Summary Completed 07/06/2016 Patient Education: Hypertension Completed 07/06/2016 Appointment: Injection 06/24/2016 Patient Education: Patient Medication Summary Completed 06/24/2016 Appointment: Anum Bradshaw WPtel: [facility] (15 min) Moderate 04/06/2016 Patient Education: Patient Medication Summary Completed 04/06/2016 Patient Education: Hypertension Completed 04/06/2016 Appointment: (15 min) Moderate 01/06/2016 Patient Education: Patient Medication Summary Completed 01/06/2016 Care Plan: Testosterone Cancelled 10/04/2015 Referral: Kenneth Sykes Referral Completed 09/30/2015 Patient Education: Patient Medication Summary Completed 09/02/2015 Patient Education: Hypertension Completed 09/02/2015 Care Plan: Referral Order SNOMED-CT : [id number] Ordered 09/02/2015 Appointment: Injection 06/19/2015 Patient Education: Patient Medication Summary Completed 06/19/2015 Appointment: (15 min) Moderate 06/15/2015 Patient Education: Patient Medication Summary Completed 06/15/2015 Appointment: [facility] [phone] [facility] [place] ([place] New Patient 03/04/2015 Patient Education: Patient Medication Summary Completed 03/04/2015 Patient Education: Hypertension Completed 03/04/2015 Patient Education: Patient Medication Summary Completed 02/10/2015 Referral: Dickson Forde Referral Appointment Requested Referral: Kenneth Sykes Referral Appointment Requested Instructions No Instructions
--- OUTSIDE RECORDS SUMMARY | 2019-12-29 11:31 | XMS REPORT | CCD ---
Author Author Ashley Bradshaw Organization [facility] Address [address] [place] [address] Phone Care Team Providers Care Lead Person Name Role Phone PP Unavailable CCM Unavailable Summary Purpose Interface Exchange Insurance Providers Payer name Policy type / Coverage type Covered constitution party ID Effective Begin Date Effective End Date WPS Medicare Part B Medicare Part B [id number] Unknown Unknown CIGNA Medicare Part B [id number] Unknown Unknown Family history Father Diagnosis Age At Onset Coronary Artery Disease Unknown Mother Diagnosis Age At Onset Anemia Unknown Skin cancer Unknown Hypertension Unknown Cancer Unknown Breast cancer Unknown Social History Social History Element Codes Description Effective Dates Marital status Unknown M arrkimberly Shahram 03/04/2015 Number of children Unknown 3 03/04/[address]: 918085851 Never smoker 03/04/[address]: 165851582 Never drinks alcohol 03/04/2015 Allergies, Adverse Reactions, Alerts Substance Reaction Codes Entered Date Inactivated Date Status NEOSPORIN RxNorm: 056668 01/06/2016 No Inactive Date Active Past Medical History Illness Codes Condition Status Onset Date Resolved Date Rash and other nonsp ecific skin eruption ICD-9: 782.1 ICD-10: R21 Active 05/14/2018 Unknown Essential (primary) hypertension ICD-9: 401.9 ICD-10: I10 Active 03/03/2015 Unknown Mixed hyperlipidemia ICD-9: 272.2 ICD-10: E78.2 [...] ICD-9: 733.00 ICD-10: M81.0 Active 07/05/2016 Unknown Encounter for immuni zation ICD-9: V04.81 ICD-10: Z23 Active 06/23/2016 Unknown Gastro-esophageal re flux disease with esophagitis ICD-9: 530.81 ICD-10: K21.0 Active 03/03/2015 Unknown Mixed hyperlipidemia ICD-9: 272.4 ICD-10: E78.2 [...] Condition Codes Effectiv e Dates Condition Status Rash and other nonsp ecific skin eruption ICD-9: 782.1 ICD-10: R21 05/14/2018 Active Essential (primary) hypertension ICD-9: 401.9 ICD-10: I10 03/03/2015 Active Mixed hyperlipidemia ICD-9: 272.2 ICD-10: E78.2 [...] fracture ICD-9: 733.00 ICD-10: M81.0 07/05/2016 Active Encounter for immuni zation ICD-9: V04.81 ICD-10: Z23 06/23/2016 Active Gastro-esophageal re flux disease with esophagitis ICD-9: 530.81 ICD-10: K21.0 03/03/2015 Active Mixed hyperlipidemia ICD-9: 272.4 ICD-10: E78.2 [...] Sta tus Fill Instructions ketoconazole 2 % [facility] RxNorm: 643060 1 Application TOP BIW 05/14/2018 No Stop Date Active simvastatin 20 mg ta blet RxNorm: 992435 TAKE 1 TABLET BY MOUT H EVERY DAY 03/01/2018 08/27/2018 Ac tive triamterene 37.5 mg- hydrochlorothiazide 25 mg tablet RxNorm: 308225 Tablet(s) 1 Tablet(s) PO daily 02/06/2018 08/04/2018 Active PLEASE SEND REFILL REQUESTS ELECTRONICALLY Voltaren 1 % topical gel RxNorm: 937142 2 Gram(s) TOP TID to shoulders 01/01/2018 04/30/2018 In active sucralfate 100 mg/mL oral suspension RxNorm: 335193 10 Milliliter(s) per 1 gram PO QID 12/12/2017 06/09/2018 Active refill 3 month supply- 1gm/10ml simvastatin 20 mg ta blet RxNorm: 217769 TAKE 1 TABLET BY MOUT H EVERY DAY 12/04/2017 02/28/2018 In active escitalopram 5 mg ta blet RxNorm: 489388 1 Tablet(s) PO QPM 10/26/2017 01/18/2019 Active esomeprazole magnesi um 40 mg capsule,delayed release RxNorm: 393202 TAKE 1 CAPSULE BY MOUTH DAILY 10/26/2017 01/18/2019 Active mupirocin 2 % topica l ointment RxNorm: 817470 APPLY TO AFFECTED ARE A(S) ONCE DAILY 10/16/2017 11/28/2017 In active diltiazem 30 mg tablet RxNorm: 250123 1 Tablet(s) PO QID 10/09/2017 10/03/2018 Active triamterene 37.5 mg- hydrochlorothiazide 25 mg tablet RxNorm: 597557 1 Tablet(s) PO daily 07/28/2017 01/23/2018 Inactive fluticasone 50 mcg/a ctuation nasal spray,suspension RxNorm: 6161539 2 [place] NASAL daily 07/20/2017 01/15/2018 Inactive diltiazem 30 mg tablet RxNorm: 395090 1 Tablet(s) PO QID TAKE 1 TABLET BY MOUT H FOUR TIMES DAILY 07/13/2017 10/08/2017 Inactive simvastatin 20 mg ta blet RxNorm: 251062 TAKE 1 TABLET BY MOUT H EVERY DAY 06/08/2017 12/03/2017 In active Nexium 40 mg capsule ,delayed release RxNorm: 012202 1 Capsule(s) PO daily 05/25/2017 11/27/2017 In active esomeprazole magnesi um 40 mg capsule,delayed release RxNorm: 253445 Capsule(s) TAKE 1 CAPSULE BY MOUTH DAILY 05/17/2017 02/10/2018 Inactive diltiazem 30 mg tablet RxNorm: 153564 Tablet(s) TAKE 1 TABLET BY MOUTH FOUR TI MES DAILY 05/16/2017 07/12/2017 Inactive diltiazem 30 mg tablet RxNorm: 518148 TAKE 1 TABLET BY MOUTH THREE TIMES DAILY 02/09/2017 05/15/2017 In active Zofran ODT 4 mg disi ntegrating tablet RxNorm: 114181 1 Tablet(s) PO Q6 as needed 11/16/2016 11/22/2016 In active Protonix 40 mg table t,delayed release RxNorm: 525632 1 Tablet(s) PO daily 11/16/2016 12/15/2016 In active Protonix 40 mg table t,delayed release RxNorm: 068170 1 Tablet(s) PO daily 11/16/2016 11/15/2016 In active Zofran ODT 4 mg disi ntegrating tablet RxNorm: 827225 1 Tablet(s) PO Q6 as needed 11/16/2016 11/15/2016 In active escitalopram 5 mg ta blet RxNorm: 270020 1 Tablet(s) PO QPM 10/28/2016 10/22/2017 Inactive escitalopram 5 mg ta blet RxNorm: 201238 1 Tablet(s) PO QPM 10/05/2016 10/27/2016 Inactive mupirocin 2 % topica l ointment RxNorm: 989234 1 Application TOP yao ly APPLY TO AFFECTED AREA(S) TOPICALLY DAILY 09/07/2016 11/05/2016 Inactive Efudex 5 % topical c ream RxNorm: 072051 1 TOP BID 09/07/2016 09/16/2016 Inactive escitalopram 5 mg ta blet RxNorm: 601976 1 Tablet(s) PO QPM 09/07/2016 10/04/2016 Inactive sucralfate 100 mg/mL oral suspension RxNorm: 704690 10 Milliliter(s) per 1 gram PO QID 08/03/2016 07/28/2017 Inactive refill 3 month supply- 1gm/10ml clorazepate dipotass ium 3.75 mg tablet RxNorm: 714606 1 Tablet(s) PO QHS as needed insomnia 07/06/2016 06/30/2017 Inactive triamterene 37.5 mg- hydrochlorothiazide 25 mg tablet RxNorm: 740026 1 Tablet(s) PO daily 06/29/2016 06/23/2017 Inactive Nexium 40 mg capsule ,delayed release RxNorm: 815174 1 Capsule(s) PO daily 06/29/2016 07/05/2016 In active Bactroban 2 % topica l ointment RxNorm: 329058 APPLY TO AFFECTED ARE A(S) TOPICALLY DAILY 06/22/2016 09/06/2016 Inactive esomeprazole magnesi um 40 mg capsule,delayed release RxNorm: 584271 TAKE 1 CAPSULE BY MOUTH DAILY 06/13/2016 03/09/2017 Inactive simvastatin 20 mg ta blet RxNorm: 415128 1 Tablet(s) PO daily 05/16/2016 06/07/2017 Inactive simvastatin 20 mg ta blet RxNorm: 897962 1 Tablet(s) PO daily 05/12/2016 05/15/2016 Inactive famotidine 40 mg tablet RxNorm: 443369 TAKE 1 TABLET BY MOUTH DAILY 05/05/2016 01/29/2017 Inactive Bactroban 2 % topica l ointment RxNorm: 450265 APPLY TO AFFECTED ARE A(S) TOPICALLY DAILY 04/25/2016 05/01/2016 Inactive fluticasone 50 mcg/a ctuation nasal spray,suspension RxNorm: 6921855 2 [place] NASAL daily 03/23/2016 09/18/2016 Inactive fluticasone 50 mcg/a ctuation nasal spray,suspension RxNorm: 899216 2 [place] NASAL daily 03/07/2016 03/22/2016 Inactive Bactroban 2 % topica l ointment RxNorm: 332036 APPLY TO AFFECTED ARE A(S) TOPICALLY DAILY 02/29/2016 03/06/2016 Inactive diltiazem 30 mg tablet RxNorm: 382288 1 Tablet(s) PO TID 02/18/2016 02/08/2017 Inactive Bactroban 2 % topica l ointment RxNorm: 005118 1 Application TOP 01/08/2016 02/28/2016 Inactive clorazepate dipotass ium 3.75 mg tablet RxNorm: 258681 1 Tablet(s) PO daily 12/14/2015 06/10/2016 In active fluticasone 50 mcg/a ctuation nasal spray,suspension RxNorm: 586087 2 [place] NASAL daily 12/14/2015 02/11/2016 Inactive diltiazem 30 mg tablet RxNorm: 924688 1 Tablet(s) PO TID 09/03/2015 02/17/2016 Inactive simvastatin 20 mg ta blet RxNorm: 654961 1 Tablet(s) PO daily 08/24/2015 05/11/2016 Inactive triamterene 37.5 mg- hydrochlorothiazide 25 mg tablet RxNorm: 651939 1 Tablet(s) PO daily 07/09/2015 06/28/2016 Inactive clorazepate dipotass ium 15 mg tablet RxNorm: 402137 1 Tablet(s) PO daily 07/06/2015 07/06/2015 In active clorazepate dipotass ium 3.75 mg tablet RxNorm: 200701 1 Tablet(s) PO daily 07/06/2015 12/13/2015 In active esomeprazole magnesi um 40 mg capsule,delayed release RxNorm: 389101 1 Capsule(s) PO daily 06/26/2015 06/12/2016 Inactive famotidine 40 mg tablet RxNorm: 295480 1 Tablet(s) PO daily 06/26/2015 05/04/2016 Inactive diltiazem 30 mg tablet RxNorm: 064810 1 Tablet(s) PO TID 06/09/2015 09/02/2015 Inactive sucralfate 100 mg/mL oral suspension RxNorm: 679169 10 Milliliter(s) per 1 gram PO QID 04/28/2015 04/21/2016 Inactive refill 3 month supply- 1gm/10ml member I d [id number] sucralfate 100 mg/mL oral suspension RxNorm: 974599 10 Milliliter(s) per 1 gram PO QID 04/27/2015 04/27/2015 Inactive refill 3 month supply diltiazem 30 mg tablet RxNorm: 957698 1 Tablet(s) PO TID 02/18/2015 02/17/2015 Inactive diltiazem 30 mg tablet RxNorm: 843084 1 Tablet(s) PO TID 02/18/2015 05/18/2015 Inactive Vitamin D3 2,000 uni t tablet RxNorm: 351847 Tablet(s) PO daily No Start Date Active PreserVision Lutein oral RxNorm: [address] art Date Active Calcium 500 + D oral RxNorm: 421897 oral No Start Date Active Zyrtec 10 mg tablet RxNorm: 1567359 1 Tablet(s) PO daily No Start Date Active melatonin 5 mg tablet RxNorm: 057190 Tablet(s) PO QHS as needed No Start Date Active vitamin B6-vitamin E -magnesium oral RxNorm: 155802 oral No S tart Date Active famotidine 40 mg tablet RxNorm: 484655 1 Tablet(s) PO daily No Start Date 06/25/2015 Inactive clorazepate dipotass ium 3.75 mg tablet RxNorm: 864643 1 Tablet(s) PO daily No Start Date 07/05/2015 Inactive Bactroban 2 % topica l ointment RxNorm: 725394 1 Application TOP No Start Date 01/07/2016 Inactive Carafate 1 gram tablet RxNorm: 074842 1 Tablet(s) PO QID No Start Date 04/26/2015 Inactive esomeprazole magnesi um 40 mg capsule,delayed release RxNorm: 979104 Capsule(s) PO daily No Start Date 06/25/2015 Inactive fluticasone 50 mcg/a ctuation nasal spray,suspension RxNorm: 805963 2 [place] NASAL daily No Start Date 12/13/2015 Inactive Nexium 40 mg capsule ,delayed release RxNorm: 446129 1 Capsule(s) PO daily No Start Date 06/28/2016 Inactive triamterene 37.5 mg- hydrochlorothiazide 25 mg tablet RxNorm: 031431 1 Tablet(s) PO daily No Start Date 07/08/2015 Inactive simvastatin 20 mg ta blet RxNorm: 481477 1 Tablet(s) PO daily No Start Date 08/23/2015 Inactive Medication Administered No Medication Administered data Immunizations Vaccine Codes Date Status Influenza CVX: 141 06/21 completed Influenza CVX: 141 06/24 completed Influenza CVX: 141 06/19 completed Influenza CVX: 141 07/26 completed Pneumococcal CVX: 33 09/2011 completed Assessments Condition Codes Effectiv e Dates Rash and other nonspecific skin eruption ICD-10: R21 ICD-9: 782.1 05/14/2018 Mixed hyperlipidemia ICD-10: E78.2 ICD-9: 272.2 04/18/2018 Underweight ICD-10: R63.6 ICD-9: 783.22 04/18/2018 Essential (primary) hypertension ICD -10: I10 ICD-9: 401.9 04/18/2018 Bicipital tendinitis, left shoulder ICD-10: M75.22 [...] 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 ICD-9: 281.0 06/21/2017 Encounter for immunization ICD-10: Z 23 ICD-9: V04.81 06/21/2017 Gastro-esophageal reflux disease with esophagitis ICD-10: [...] Reason For Visit Effective Dates Notes rash 05/14/2018 hypertension 04/18/2018 shoulder pain 01/22/2018 [...] 31.4 pg 04/18/2018 Cbc With Differential Ord2 [place]% 9.2 % 04/18/2018 Cbc With Differential Ord2 [...] 0.76 K/ul 04/18/2018 Cbc With Differential Ord2 [place] ABS# 0.5 K/ul 04/18/2018 Cbc With Differential [...] Ord15 CALCIUM 9.1 mg/dL 04/18/2018 Comp Metabolic Gtw774 NA 130 mEq/L 12/07/2017 Comp Metabolic Qvl548 K 3.6 mEq/L 12/07/2017 Comp Metabolic Zwi614 CL 91 mEq/L 12/07/2017 Comp Metabolic Fav045 CO2 29.0 mEq/L 12/07/2017 Comp Metabolic Otz276 AN ION GAP 14 12/07/2017 Comp Metabolic Jat328 GL UCOSE 105 mg/dL 12/07/2017 Comp Metabolic Zgl307 Cr eat 0.6 mg/dL 12/07/2017 Comp Metabolic Mbv758 eG FR 94 ml/min/1.73m2 12/07 Comp Metabolic Ecy727 BUN 15 mg/dL 12/07/2017 Comp Metabolic Kpi712 B/ C Ratio 23.4 Ratio 12/07/2017 Comp Metabolic Xkm385 CA LCIUM 9.3 mg/dL 12/07/2017 Comp Metabolic Nck680 AL K PHOS 62 U/L 12/07/2017 Comp Metabolic Qjh905 T(SGOT) 31 U/L 12/07/2017 Comp Metabolic Ngt869 AL T(SGPT) 22 U/L 12/07/2017 Comp Metabolic Fgd313 BI LI T 0.4 mg/dL 12/07/2017 Comp Metabolic Ipf560 AL BUMIN 4.3 g/dL 12/07/2017 Comp Metabolic Khx707 TP RO 6.5 g/dL 12/07/2017 Comp Metabolic Ykw820 GL OB 2.2 g/dL 12/07/2017 Comp Metabolic Bkv042 A/ G Ratio 2.0 Ratio 12/07/2017 Comp Metabolic Txq089 Os mo 262 mOsmo 12/07/2017 Cbc With [...] 31.0 pg 12/07/2017 Cbc With Differential Ord2 [place]% 10.4 % 12/07/2017 Cbc With Differential Ord2 [...] 0.57 K/ul 12/07/2017 Cbc With Differential Ord2 [place] ABS# 0.5 K/ul 12/07/2017 Cbc With Differential [...] 71.3 % 06/21/2017 Cbc With Differential Ord2 Lymph% 14.6 % 06/21/2017 Cbc With Differential Ord2 MCV 93.9 fl 06/21/2017 Cbc With Differential Ord2 [place]% 10.1 % 06/21/2017 Cbc With Differential Ord2 MCH 32.3 pg 06/21/2017 Cbc With Differential Ord2 Eos% 3.8 % 06/21/2017 Cbc With Differential Ord2 MCHC 34.4 pg 06/21/2017 Cbc With Differential Ord2 Baso% 0.2 % 06/21/2017 Cbc With Differential Ord2 PLT 317 K/ul 06/21/2017 Cbc With Differential Ord2 RDW 14.4 % 06/21/2017 Cbc With Differential Ord2 Neut ABS# 3.18 K/ul 06/21/2017 Cbc With Differential Ord2 Lymph ABS# 0.65 K/ul 06/21/2017 Cbc With Differential Ord2 [place] ABS# 0.5 K/ul 06/21/2017 Cbc With Differential Ord2 Eos ABS# 0.2 K/ul 06/21/2017 Cbc With Differential Ord2 Baso ABS# 0.0 K/ul 06/21/2017 Comp Metabolic Bgw738 NA 133 mEq/L 06/21/2017 Comp Metabolic Ebi969 K 4.0 mEq/L 06/21/2017 Comp Metabolic Kqz867 CL 94 mEq/L 06/21/2017 Comp Metabolic Bet309 CO2 25.0 mEq/L 06/21/2017 Comp Metabolic Ixs227 AN ION GAP 18 06/21/2017 Comp Metabolic Ipq053 GL UCOSE 88 mg/dL 06/21/2017 Comp Metabolic Mlf966 Cr eat 0.6 mg/dL 06/21/2017 Comp Metabolic Xkf769 eG FR 94 ml/min/1.73m2 06/21 Comp Metabolic Vcr102 BUN 16 mg/dL 06/21/2017 Comp Metabolic Zks897 B/ C Ratio 25.0 Ratio 06/21/2017 Comp Metabolic Mlb457 CA LCIUM 9.1 mg/dL 06/21/2017 Comp Metabolic Ycz086 AL K PHOS 65 U/L 06/21/2017 Comp Metabolic Joc652 T(SGOT) 31 U/L 06/21/2017 Comp Metabolic Aco613 AL T(SGPT) 20 U/L 06/21/2017 Comp Metabolic Fnx508 BI LI T 0.5 mg/dL 06/21/2017 Comp Metabolic Sju560 AL BUMIN 4.3 g/dL 06/21/2017 Comp Metabolic Xpp999 TP RO 6.6 g/dL 06/21/2017 Comp Metabolic Vjw798 GL OB 2.3 g/dL 06/21/2017 Comp Metabolic Moa302 A/ G Ratio 1.8 Ratio 06/21/2017 Comp Metabolic Amw267 Os mo 267 mOsmo 06/21/2017 Lipid Ord30 CHOL 188 mg/dL 06/21/2017 Lipid Ord30 HDL 77.0 mg/dl 06/21/2017 Lipid Ord30 TRIG 66 mg/dL 06/21/2017 Lipid Ord30 LDL 98 mg/dL 06/21/2017 Lipid Ord30 C/HDL 2.4 Ratio 06/21/2017 Tsh Ord6 hTSH II 1.32 uIU/mL 06/21/2017 Comp Metabolic Lji324 NA 135 mEq/L 02/09/2017 Comp Metabolic Bqq401 K 4.0 mEq/L 02/09/2017 Comp Metabolic Qde407 CL 96 mEq/L 02/09/2017 Comp Metabolic Tbc069 CO2 28.0 mEq/L 02/09/2017 Comp Metabolic Mle263 AN ION GAP 15 02/09/2017 Comp Metabolic Mfi074 GL UCOSE 101 mg/dL 02/09/2017 Comp Metabolic Uof731 Cr eat 0.7 mg/dL 02/09/2017 Comp Metabolic Cyr194 eG FR 83 ml/min/1.73m2 02/09 Comp Metabolic Vgg289 BUN 17 mg/dL 02/09/2017 Comp Metabolic Ysa405 B/ C Ratio 23.9 Ratio 02/09/2017 Comp Metabolic Prw912 CA LCIUM 9.3 mg/dL 02/09/2017 Comp Metabolic Qru811 AL K PHOS 51 U/L 02/09/2017 Comp Metabolic Bvh885 T(SGOT) 33 U/L 02/09/2017 Comp Metabolic Hew934 AL T(SGPT) 21 U/L 02/09/2017 Comp Metabolic Sva558 BI LI T 0.6 mg/dL 02/09/2017 Comp Metabolic Cac467 AL BUMIN 4.3 g/dL 02/09/2017 Comp Metabolic Ehg153 TP RO 6.9 g/dL 02/09/2017 Comp Metabolic Alw327 GL OB 2.6 g/dL 02/09/2017 Comp Metabolic Dlc254 A/ G Ratio 1.7 Ratio 02/09/2017 Comp Metabolic Owj239 Os mo 272 mOsmo 02/09/2017 Lipid Ord30 [...] 94.3 fl 02/09/2017 Cbc With Differential Ord2 [place]% 11.3 % 02/09/2017 Cbc With Differential Ord2 [...] 0.77 K/ul 02/09/2017 Cbc With Differential Ord2 [place] ABS# 0.6 K/ul 02/09/2017 Cbc With Differential [...] 11.7 g/dl 03/29/2016 Cbc With Differential Ord2 Neut% 73.8 % 03/29/2016 Cbc With Differential Ord2 HCT 34.5 % 03/29/2016 Cbc With Differential Ord2 Lymph% 13.3 % 03/29/2016 Cbc With Differential Ord2 MCV 92.7 fl 03/29/2016 Cbc With Differential Ord2 MCH 31.5 pg 03/29/2016 Cbc With Differential Ord2 [place]% 9.5 % 03/29/2016 Cbc With Differential Ord2 Eos% 2.7 % 03/29/2016 Cbc With Differential Ord2 MCHC 33.9 pg 03/29/2016 Cbc With Differential Ord2 Baso% 0.7 % 03/29/2016 Cbc With Differential Ord2 PLT 313 K/ul 03/29/2016 Cbc With Differential Ord2 Neut ABS# 3.34 K/ul 03/29/2016 Cbc With Differential Ord2 RDW 14.1 % 03/29/2016 Cbc With Differential Ord2 Lymph ABS# 0.60 K/ul 03/29/2016 Cbc With Differential Ord2 [place] ABS# 0.4 K/ul 03/29/2016 Cbc With Differential Ord2 Eos ABS# 0.1 K/ul 03/29/2016 Cbc With Differential Ord2 Baso ABS# 0.0 K/ul 03/29/2016 Comp Metabolic Pzd403 NA 135 mEq/L 03/29/2016 Comp Metabolic Tbj093 K 3.7 mEq/L 03/29/2016 Comp Metabolic Thv528 CL 96 mEq/L 03/29/2016 Comp Metabolic Rym746 CO2 30.0 mEq/L 03/29/2016 Comp Metabolic Syy761 AN ION GAP 13 03/29/2016 Comp Metabolic Nhn488 GL UCOSE 102 mg/dL 03/29/2016 Comp Metabolic Brm498 Cr eat 0.6 mg/dL 03/29/2016 Comp Metabolic Nng663 eG FR 94 ml/min/1.73m2 03/29 Comp Metabolic Tyo519 BUN 15 mg/dL 03/29/2016 Comp Metabolic Dok258 B/ C Ratio 23.4 Ratio 03/29/2016 Comp Metabolic Jme189 CA LCIUM 9.1 mg/dL 03/29/2016 Comp Metabolic Xrl509 AL K PHOS 70 U/L 03/29/2016 Comp Metabolic Zmn032 T(SGOT) 35 U/L 03/29/2016 Comp Metabolic Ngq713 AL T(SGPT) 27 U/L 03/29/2016 Comp Metabolic Suk206 BI LI T 0.5 mg/dL 03/29/2016 Comp Metabolic Pes002 AL BUMIN 4.2 g/dL 03/29/2016 Comp Metabolic Wke073 TP RO 6.6 g/dL 03/29/2016 Comp Metabolic Qlg642 GL OB 2.4 g/dL 03/29/2016 Comp Metabolic Bry693 A/ G Ratio 1.7 Ratio 03/29/2016 Comp Metabolic Hwt254 Os mo 271 mOsmo 03/29/2016 Tsh Ord6 hTSH II 1.17 uIU/mL 03/29/2016 B12 Bpp516 B12 838.00 pg/ml 09/02/2015 Tsh Ord6 hTSH [...] Ord2 RDW 15.1 % 09/02/2015 Comp Metabolic Wzb047 NA 135 mEq/L 09/02/2015 Comp Metabolic Gbi622 K 3.4 mEq/L 09/02/2015 Comp Metabolic Zjb573 CL 95 mEq/L 09/02/2015 Comp Metabolic Zhu674 CO2 27.0 mEq/L 09/02/2015 Comp Metabolic Vsp270 AN ION GAP 16 09/02/2015 Comp Metabolic Vls219 GL UCOSE 94 mg/dL 09/02/2015 Comp Metabolic Aem943 Cr eat 0.7 mg/dL 09/02/2015 Comp Metabolic Dfw201 eG FR 87 ml/min/1.73m2 09/02 Comp Metabolic Bnf921 BUN 18 mg/dL 09/02/2015 Comp Metabolic Yup973 B/ C Ratio 26.1 Ratio 09/02/2015 Comp Metabolic Kuy700 CA LCIUM 9.0 mg/dL 09/02/2015 Comp Metabolic Npr269 AL K PHOS 67 U/L 09/02/2015 Comp Metabolic Tsj874 T(SGOT) 30 U/L 09/02/2015 Comp Metabolic Sdp838 AL T(SGPT) 21 U/L 09/02/2015 Comp Metabolic Gtb528 BI LI T 0.6 mg/dL 09/02/2015 Comp Metabolic Hvb929 AL BUMIN 4.3 g/dL 09/02/2015 Comp Metabolic Tkq279 TP RO 6.8 g/dL 09/02/2015 Comp Metabolic Cbi928 GL OB 2.5 g/dL 09/02/2015 Comp Metabolic Jki000 A/ G Ratio 1.7 Ratio 09/02/2015 Comp Metabolic Mdv044 Os mo 272 mOsmo 09/02/2015 Lipid Ord30 CHOL 181 mg/dL 09/02/2015 Lipid Ord30 HDL 66.0 mg/dl 09/02/2015 Lipid Ord30 TRIG 77 mg/dL 09/02/2015 Lipid Ord30 LDL 100 mg/dL 09/02/2015 Lipid Ord30 C/HDL 2.7 Ratio 09/02/2015 Review of Systems System Result Effective Dates Constitutional No recent illness 05/14/2018 Constitutional No [...] pain 01/22/2018 Neurologic No syncope Psychiatric anxiety 3 Constitutional No recent illness 01/01/2018 Constitutional No [...] pain 01/01/2018 Neurologic No syncope Psychiatric anxiety 0405/2018 Musculoskeletal shoulder pain 01/01/2018 Constitutional No recent [...] VACC PRSV FREE I NC ANTIG CPT-4: 73676 06/21/2017 ADMIN INFLUENZA VIRU S VAC CPT-4: G0008 06/24/2016 FLU VACC 4 CRISTINE 3 YRS PLUS IM Formatting Model/CDA Sections, Assigned to/Carmen Solis SNOMED CT: 90730887 CPT-4: 02505Ulemsjg 06/24/2016 ADMIN INFLUENZA VIRU S VAC CPT-4: G0008 06/19/2015 FLU VACC 4 CRISTINE 3 YRS PLUS IM Formatting Model/CDA Sections, Assigned to/Carmen Solis SNOMED CT: 62443478 CPT-4: 58279Kondiff 06/19/2015 Vital Signs Date Vital 05/14/2018 Blood Pressure 1: 146/68 Code: 8480-6 BMI: 16.0 Code: 41531-2 Heart Rate 1: 70 bpm Height: 5'2" SpO2: 98% Weight: 89 lbs 04/18/2018 Blood Pressure 1: 126/68 Code: 8480-6 BMI: 15.7 Code: 30273-8 Heart Rate 1: 81 bpm Height: 5'2" SpO2: 99% Weight: 87 lbs 01/22/2018 Blood Pressure 1: 136/76 Code: 8480-6 BMI: 15.8 Code: 38239-2 Heart Rate 1: 73 bpm Height: 5'2" SpO2: 99% Weight: 88 lbs 01/01/2018 Blood Pressure 1: 148/76 Code: 8480-6 BMI: 15.8 Code: 33503-7 Heart Rate 1: 74 bpm Height: 5'2" SpO2: 98% Weight: 88 lbs 12/12/2017 Blood Pressure 1: 140/72 Code: 8480-6 BMI: 15.8 Code: 44837-2 Heart Rate 1: 65 bpm Height: 5'2" SpO2: 96% Weight: 88 lbs 09/13/2017 Blood Pressure 1: 138/70 Code: 8480-6 BMI: 15.9 Code: 25822-8 Heart Rate 1: 74 bpm Height: 5'2" SpO2: 99% Weight: 88 lbs 8 oz 06/21/2017 Blood Pressure 1: 122/50 Code: 8480-6 BMI: 15.3 Code: 95634-9 Heart Rate 1: 69 bpm Height: 5'2" SpO2: 99% Weight: 85 lbs 05/25/2017 Blood Pressure 1: 138/72 Code: 8480-6 Heart Rate 1: 77 bpm Height: 5'2" SpO2: 98% Weight: 05/16/2017 Blood Pressure 1: 136/78 Code: 8480-6 Heart Rate 1: 86 bpm Height: 5'2" SpO2: 98% Weight: 02/15/2017 Blood Pressure 1: 144/78 Code: 8480-6 BMI: 15.4 Code: 80862-7 Heart Rate 1: 65 bpm Height: 5'2" SpO2: 98% Weight: 85 lbs 8 oz 11/22/2016 Blood Pressure 1: 140/58 Code: 8480-6 BMI: 14.8 Code: 92458-7 Heart Rate 1: 79 bpm Height: 5'2" SpO2: 99% Weight: 82 lbs 09/15/2016 BMI: 16.0 Code: 52254-3 Height: 5'2" Weight: 89 lbs 09/07/2016 Blood Pressure 1: 130/62 Code: 8480-6 BMI: 16.2 Code: 07480-0 Heart Rate 1: 71 bpm Height: 5'2" SpO2: 98% Weight: 90 lbs 07/06/2016 Blood Pressure 1: 144/76 Code: 8480-6 BMI: 15.8 Code: 81705-9 Heart Rate 1: 78 bpm Height: 5'2" SpO2: 99% Weight: 88 lbs 04/06/2016 Blood Pressure 1: 148/58 Code: 8480-6 BMI: 16.2 Code: 30317-0 Heart Rate 1: 64 bpm Height: 5'2" SpO2: 97% Weight: 90 lbs 01/06/2016 Blood Pressure 1: 146/72 Code: 8480-6 BMI: 16.6 Code: 10508-3 Heart Rate 1: 62 bpm Height: 5'2" SpO2: 99% Weight: 92 lbs 09/02/2015 Blood Pressure 1: 132/70 Code: 8480-6 BMI: 16.6 Code: 03988-0 Heart Rate 1: 77 bpm Height: 5'2" SpO2: 98% Weight: 92 lbs 06/15/2015 Blood Pressure 1: 144/60 Code: 8480-6 BMI: 16.7 Code: 66968-5 Heart Rate 1: 66 bpm Height: 5'2" SpO2: 97% Weight: 93 lbs 03/04/2015 Blood Pressure 1: 120/80 Code: 8480-6 BMI: 15.8 Code: 09282-5 Heart Rate 1: 74 bpm Height: 5'2" Weight: 88 lbs Functional Status No Functional Status data History of Present Illness Symptom Name Status Resu lt Effective Date Notes rash Location-Major on t he neck 05/14/2018 [...] shoulder 01/22/2018 None shoulder pain Quality ac nikolai 01/22/2018 None shoulder pain Quality co nstant [...] nstant 01/01/2018 None shoulder pain Quality ac nikolai 01/01/2018 None shoulder pain Quality wo rsening [...] Episodes unchanged 01/06/2016 Non e hypertension Quality [facility] 01/06/2016 None hypertension Quality [facility] [...] Encounters Encounter Performer Loca tion Codes Date () [id number] EST. P ATIENT, LEVEL III Diagnosis: Rash and other nonspecific skin eruption[ICD10: R21] Rosalinda Bradshaw MD, [facility] CPT-4: 71527 05/14/2018 ([id number]) [id number] EST. P ATIENT, LEVEL IV Diagnosis: Essential (primary) hypertension[ICD10: I10] Diagnosis: Underweight[ICD10: R63.6] Diagnosis: Mixed hyperlipidemia[ICD10: E78.2] Anum Bradshaw MD, [facility] CPT- 4: 50402 04/18/2018 ([id number]) 77582 EST. P ATIENT, LEVEL III Diagnosis: Bicipital tendinitis, left shoulder[ICD10: M75.22] Anum Bradshaw MD, C CPT-4: 27303 01/22/2018 ([id number]) 06219 EST. P ATIENT, LEVEL III Diagnosis: Pain in right shoulder[ICD10: M25.511] Diagnosis: Bicipital tendinitis, right shoulder[ICD10: M75.21] Anum Bradshaw MD, C CPT-4: 63990 01/01/2018 ([id number]) 02691 EST. P ATIENT, LEVEL IV Diagnosis: Essential (primary) hypertension[ICD10: I10] Diagnosis: Underweight[ICD10: R63.6] Diagnosis: Mixed hyperlipidemia[ICD10: E78.2] Diagnosis: Actinic keratosis[ICD10: L57.0] Anum Bradshaw MD, [facility] CPT-4: 16800 12/12/2017 ([id number]) 23561 EST. P ATIENT, LEVEL III Diagnosis: Essential (primary) hypertension[ICD10: I10] Diagnosis: Fracture of unspecified part of neck of left femur, subsequent encounter for closed fracture with routine healing[ICD10: S72.002D] Diagnosis: Underweight[ICD10: R63.6] Anum Bradshaw MD, [facility] CPT-4: 66619 09/13/2017 ([id number]) 03181 EST. P ATIENT, LEVEL IV Diagnosis: Mixed hyperlipidemia[ICD10: E78.2] Diagnosis: Essential (primary) hypertension[ICD10: I10] Diagnosis: Vitamin B12 deficiency anemia due to intrinsic factor deficiency[ICD10: D51.0] Diagnosis: Gastro-esophageal reflux disease with esophagitis[ICD10: K21.0] Diagnosis: Age-related osteoporosis without current pathological fracture[ICD10: M81.0] Diagnosis: Encounter for immunization[ICD10: Z23] Anum Bradshaw MD, [facility] CPT-4: 37553 06/21/2017 ([id number]) 14849 EST. P ATIENT, LEVEL III Diagnosis: Fracture of unspecified part of neck of left femur, subsequent encounter for closed fracture with routine healing[ICD10: S72.002D] Diagnosis: Underweight[ICD10: R63.6] Diagnosis: Gastro-esophageal reflux disease with esophagitis[ICD10: K21.0] Anum Bradshaw MD, [facility] CPT-4: 53556 05/25/2017 ([id number]) 12442 EST. P ATIENT, LEVEL IV Diagnosis: Essential (primary) hypertension[ICD10: I10] Diagnosis: Fracture of unspecified part of neck of left femur, subsequent encounter for closed fracture with routine healing[ICD10: S72.002D] Diagnosis: Generalized anxiety disorder[ICD10: F41.1] Anum Bradshaw MD, [facility] CPT-4: 83740 05/16/2017 ([id number]) 05708 EST. P ATIENT, LEVEL IV Diagnosis: Essential (primary) hypertension[ICD10: I10] Diagnosis: Mixed hyperlipidemia[ICD10: E78.2] Diagnosis: Generalized anxiety disorder[ICD10: F41.1] Anum Bradshaw MD, [facility] CPT-4: 70295 02/15/2017 ([id number]) 62629 EST. P ATIENT, LEVEL IV Diagnosis: Mixed hyperlipidemia[ICD10: E78.2] Diagnosis: Generalized anxiety disorder[ICD10: F41.1] Diagnosis: Essential (primary) hypertension[ICD10: I10] Diagnosis: Gastro-esophageal reflux disease with esophagitis[ICD10: K21.0] Anum Bradshaw MD, [facility] CPT-4: 98462 11/22/2016 34627 EST. PATIENT, LEVEL III Diagnosis: Inflamed seborrheic keratosis[ICD10: L82.0] Kala Bradshaw MD, [facility] CPT-4: 96246 09/15/2016 ([id number]) 01288 EST. P ATIENT, LEVEL IV Diagnosis: Essential (primary) hypertension[ICD10: I10] Diagnosis: Mixed hyperlipidemia[ICD10: E78.2] Diagnosis: Generalized anxiety disorder[ICD10: F41.1] Anum Bradshaw MD [facility] CPT-4: 87738 09/07/2016 ([id number]) 86353 EST. P ATIENT, LEVEL IV Diagnosis: Essential (primary) hypertension[ICD10: I10] Diagnosis: Frequency of micturition[ICD10: R35.0] Diagnosis: Age-related osteoporosis without current pathological fracture[ICD10: M81.0] Anum Bradshaw MD, [facility] CPT-4: 37127 07/06/2016 ([id number]) 00348 EST. P ATIENT, LEVEL IV Diagnosis: Essential (primary) hypertension[ICD10: I10] Diagnosis: Mixed hyperlipidemia[ICD10: E78.2] Diagnosis: Gastro-esophageal reflux disease with esophagitis[ICD10: K21.0] Anum Bradshaw MD, [facility] CPT-4: 81973 04/06/2016 88063 EST. PATIENT, LEVEL IV Diagnosis: Essential (primary) hypertension[ICD10: I10] Diagnosis: Gastro-esophageal reflux disease with esophagitis[ICD10: K21.0] Kala Bradshaw MD, [facility] CPT-4: 68515 01/06/2016 ([id number]) 49142 EST. P ATIENT, LEVEL IV Diagnosis: Essential (primary) hypertension[ICD10: I10] Diagnosis: Gastro-esophageal reflux disease with esophagitis[ICD10: K21.0] Diagnosis: Other dietary vitamin B12 deficiency anemia[ICD10: D51.3] Diagnosis: Vitamin B12 deficiency anemia due to intrinsic factor deficiency[ICD10: D51.0] Diagnosis: Occlusion and stenosis of unspecified carotid artery[ICD10: I65.29] [facility] CPT-4: 68720 09/02/2015 ([id number]) 32054 EST. P ATIENT, LEVEL III Diagnosis: Carpal tunnel syndrome[ICD9: 354.0] Diagnosis: Inflamed seborrheic keratosis[ICD9: 702.11] Rosalindajolly Bradshaw MD, [facility] CPT-4: 85733 06/15/2015 ([id number]) OFFICE VISI T, NEW - LEVEL 4 Diagnosis: ESSENTIAL HYPERTENSION[ICD9: 401.9] Diagnosis: ESOPHAGEAL REFLUX[ICD9: 530.81] Diagnosis: HYPERLIPIDEMIA[ICD9: 272.4] Anum Bradshaw MD, [facility] CPT-4: 55962 03/04/2015 Plan of Care Planned Activity Notes C odes Status Date Visit Plan: Rash-scalp -tinea vs ps oriasis -scalp scraping sent for culture -rx sent to patient's pharmacy and instructed on use-follow up in 2 weeks -sooner if needed 05/14/2018 Visit Plan: Rash-scalp -tinea vs ps oriasis -scalp scraping sent for culture -rx sent to patient's pharmacy and instructed on use-follow up in 2 weeks -sooner if needed 05/14/2018 Patient Education: Patient Medication Summary Completed 05/14/2018 Care Plan: C FUNGUS scalp Pending 05/14/2018 Visit Plan: Hypertension - well con [...] to medications. 04/18/2018 App[facility]ment[facility] [phone] [facility] (15 min) Moderate 04/18/2018 Patient Education: Patient Medication Summary Completed 04/18/2018 Appointment: Injection 03/08/2018 Visit Plan: Left shoulder pain - bi cep tendonitis - continue with physical therapy at [facility]. Use voltaren gel on left shoulder now - continue with therapy on right shoulder. 01/22/2018 Appointment: Anum Bradshaw WPtel: [phone] [facility] (15 min) Moderate 01/22/2018 Patient [...] tendonitis - referral to physical therapy at [facility] 01/01/2018 Appointment: [facility] [phone] [facility] (15 min) Moderate 01/01/2018 Patient Education: [...] 2 weeks 12/12/2017 Appointment: [facility] [phone] [facility] (15 min) Moderate 12/12/2017 Patient Education: [...] healing. 09/13/2017 Appointment: [facility] [phone] [facility] (15 min) Moderate 09/13/2017 Patient Education: [...] not improving. 06/21/2017 Appointment: [facility] [phone] [facility] [place] (15 min) Moderate 06/21/2017 Patient [...] Anum Bradshaw WPtel: [facility] (15 min) Moderate 05/25/2017 Patient Education: [...] current medications. 05/16/2017 Appointment: Anum Bradshaw WPtel: [facility] (15 min) Moderate 05/16/2017 Patient Education: [...] Anum Bradshaw WPtel: [facility] (15 min) Moderate 02/15/2017 Patient Education: Patient Medication Summary Completed 02/15/2017 Patient Education: Hypertension Completed 02/15/2017 Care Plan: Referral Order SNOMED-CT : [id number] Pending 02/15/2017 Appointment: Anum Bradshaw WPtel: [facility] (15 min) Moderate 01/11/2017 Visit Plan: [...] current treatment 11/22/2016 Appointment: Anum Bradshaw WPtel: [facility] (15 min) Moderate 11/22/2016 Patient Education: Patient Medication Summary Completed 11/22/2016 Patient Education: Hypertension Completed 11/22/2016 Appointment: Rosalinda Bermudez WPtel: [phone] [place] (30 min) Complex 09/16/2016 Visit Plan: [...] Anum Bradshaw WPtel: [phone] [facility] (15 min) Moderate 09/07/2016 Patient [...] ua negative 07/06/2016 Appointment: Anum Bradshaw WPtel: [facility] (15 min) Moderate 07/06/2016 Patient [...] not improving. 04/06/2016 Appointment: Anum Bradshaw WPtel: [facility] (15 min) Moderate 04/06/2016 Patient Education: [...] 09/02/2015 Care Plan: Referral Order SNOMED-CT : [id number] Ordered 09/02/2015 Appointment: Injection 06/19/2015 Patient Education: [...] improving. 03/04/2015 Appointment: [facility] Bradshaw [facility] [phone] [facility] [place] (S) New Patient 03/04/2015 Patient [...] referral [facility] at [facility] Monitor your blood p ressure at home [...] - continue with physical [facility] at [facility]. Use voltaren gel on left shoulder [...] Frequency of urination - ua negative . Esophageal Reflux - the patient has been taking medication as directed and her symptoms are improved. Hip fracture - continue with supportive care, nonweight bearing. Underweight - increase protein intake, higher calorie diet, use wheelchair to decrease excessive caloric expenditure. take the carafate at bedtime - continue [...]
--- OUTSIDE RECORDS SUMMARY | 2019-12-29 11:33 | XMS REPORT | CCD ---
Author Author Ashley Bradshaw Organization [facility] Address [address] [place] [address] Phone Care Team Providers Care Relief Map Modeler Name Role Phone PP Unavailable CCM Unavailable Summary Purpose Interface Exchange Insurance Providers Payer name Policy type / Coverage type Covered republican ID Effective Begin Date Effective End Date WPS Medicare Part B Medicare Part B [id number] Unknown Unknown CIGNA Medicare Part B [id number] Unknown Unknown Family history Father Diagnosis Age At Onset Coronary Artery Disease Unknown Mother Diagnosis Age At Onset Anemia Unknown Skin cancer Unknown Hypertension Unknown Cancer Unknown Breast cancer Unknown Social History Social History Element Codes Description Effective Dates Marital status Unknown M arrkimberly Shahram 03/04/2015 Number of children Unknown 3 03/04/[address]: 907923016 Never smoker 03/04/[address]: 158655867 Never drinks alcohol 03/04/2015 Allergies, Adverse Reactions, Alerts Substance Reaction Codes Entered Date Inactivated Date Status NEOSPORIN RxNorm: 028623 01/06/2016 No Inactive Date Active Past Medical [...] Sta tus Fill Instructions ketoconazole 2 % [facility] [place] RxNorm: 984441 1 Application TOP BIW 05/14/2018 No Stop Date Active simvastatin 20 mg ta blet RxNorm: 295914 TAKE 1 TABLET BY MOUT H EVERY DAY 03/01/2018 08/27/2018 Ac tive triamterene 37.5 mg- hydrochlorothiazide 25 mg tablet RxNorm: 668204 Tablet(s) 1 Tablet(s) PO daily 02/06/2018 08/04/2018 Active PLEASE SEND REFILL REQUESTS ELECTRONICALLY Voltaren 1 % topical gel RxNorm: 653235 2 Gram(s) TOP TID to shoulders 01/01/2018 04/30/2018 In active sucralfate 100 mg/mL oral suspension RxNorm: 132916 10 Milliliter(s) per 1 gram PO QID 12/12/2017 06/09/2018 Active refill 3 month supply- 1gm/10ml simvastatin 20 mg ta blet RxNorm: 705568 TAKE 1 TABLET BY MOUT H EVERY DAY 12/04/2017 02/28/2018 In active escitalopram 5 mg ta blet RxNorm: 653379 1 Tablet(s) PO QPM 10/26/2017 01/18/2019 Active esomeprazole magnesi um 40 mg capsule,delayed release RxNorm: 113575 TAKE 1 CAPSULE BY MOUTH DAILY 10/26/2017 01/18/2019 Active mupirocin 2 % topica l ointment RxNorm: 112204 APPLY TO AFFECTED ARE A(S) ONCE DAILY 10/16/2017 11/28/2017 In active diltiazem 30 mg tablet RxNorm: 824352 1 Tablet(s) PO QID 10/09/2017 10/03/2018 Active triamterene 37.5 mg- hydrochlorothiazide 25 mg tablet RxNorm: 176799 1 Tablet(s) PO daily 07/28/2017 01/23/2018 Inactive fluticasone 50 mcg/a ctuation nasal spray,suspension RxNorm: 7566737 2 Bard NASAL daily 07/20/2017 01/15/2018 Inactive diltiazem 30 mg tablet RxNorm: 234592 1 Tablet(s) PO QID TAKE 1 TABLET BY MOUT H FOUR TIMES DAILY 07/13/2017 10/08/2017 Inactive simvastatin 20 mg ta blet RxNorm: 418284 TAKE 1 TABLET BY MOUT H EVERY DAY 06/08/2017 12/03/2017 In active Nexium 40 mg capsule ,delayed release RxNorm: 653787 1 Capsule(s) PO daily 05/25/2017 11/27/2017 In active esomeprazole magnesi um 40 mg capsule,delayed release RxNorm: 310352 Capsule(s) TAKE 1 CAPSULE BY MOUTH DAILY 05/17/2017 02/10/2018 Inactive diltiazem 30 mg tablet RxNorm: 936605 Tablet(s) TAKE 1 TABLET BY MOUTH FOUR TI MES DAILY 05/16/2017 07/12/2017 Inactive diltiazem 30 mg tablet RxNorm: 550346 TAKE 1 TABLET BY MOUTH THREE TIMES DAILY 02/09/2017 05/15/2017 In active Zofran ODT 4 mg disi ntegrating tablet RxNorm: 470113 1 Tablet(s) PO Q6 as needed 11/16/2016 11/22/2016 In active Protonix 40 mg table t,delayed release RxNorm: 839805 1 Tablet(s) PO daily 11/16/2016 12/15/2016 In active Protonix 40 mg table t,delayed release RxNorm: 871908 1 Tablet(s) PO daily 11/16/2016 11/15/2016 In active Zofran ODT 4 mg disi ntegrating tablet RxNorm: 504163 1 Tablet(s) PO Q6 as needed 11/16/2016 11/15/2016 In active escitalopram 5 mg ta blet RxNorm: 821426 1 Tablet(s) PO QPM 10/28/2016 10/22/2017 Inactive escitalopram 5 mg ta blet RxNorm: 591427 1 Tablet(s) PO QPM 10/05/2016 10/27/2016 Inactive mupirocin 2 % topica l ointment RxNorm: 093684 1 Application TOP yao ly APPLY TO AFFECTED AREA(S) TOPICALLY DAILY 09/07/2016 11/05/2016 Inactive Efudex 5 % topical c ream RxNorm: 692063 1 TOP BID 09/07/2016 09/16/2016 Inactive escitalopram 5 mg ta blet RxNorm: 211942 1 Tablet(s) PO QPM 09/07/2016 10/04/2016 Inactive sucralfate 100 mg/mL oral suspension RxNorm: 255639 10 Milliliter(s) per 1 gram PO QID 08/03/2016 07/28/2017 Inactive refill 3 month supply- 1gm/10ml clorazepate dipotass ium 3.75 mg tablet RxNorm: 511918 1 Tablet(s) PO QHS as needed insomnia 07/06/2016 06/30/2017 Inactive triamterene 37.5 mg- hydrochlorothiazide 25 mg tablet RxNorm: 901825 1 Tablet(s) PO daily 06/29/2016 06/23/2017 Inactive Nexium 40 mg capsule ,delayed release RxNorm: 038522 1 Capsule(s) PO daily 06/29/2016 07/05/2016 In active Bactroban 2 % topica l ointment RxNorm: 952306 APPLY TO AFFECTED ARE A(S) TOPICALLY DAILY 06/22/2016 09/06/2016 Inactive esomeprazole magnesi um 40 mg capsule,delayed release RxNorm: 551507 TAKE 1 CAPSULE BY MOUTH DAILY 06/13/2016 03/09/2017 Inactive simvastatin 20 mg ta blet RxNorm: 643303 1 Tablet(s) PO daily 05/16/2016 06/07/2017 Inactive simvastatin 20 mg ta blet RxNorm: 373311 1 Tablet(s) PO daily 05/12/2016 05/15/2016 Inactive famotidine 40 mg tablet RxNorm: 548567 TAKE 1 TABLET BY MOUTH DAILY 05/05/2016 01/29/2017 Inactive Bactroban 2 % topica l ointment RxNorm: 820216 APPLY TO AFFECTED ARE A(S) TOPICALLY DAILY 04/25/2016 05/01/2016 Inactive fluticasone 50 mcg/a ctuation nasal spray,suspension RxNorm: 9641611 2 Bard NASAL daily 03/23/2016 09/18/2016 Inactive fluticasone 50 mcg/a ctuation nasal spray,suspension RxNorm: 538880 2 Bard NASAL daily 03/07/2016 03/22/2016 Inactive Bactroban 2 % topica l ointment RxNorm: 279184 APPLY TO AFFECTED ARE A(S) TOPICALLY DAILY 02/29/2016 03/06/2016 Inactive diltiazem 30 mg tablet RxNorm: 955364 1 Tablet(s) PO TID 02/18/2016 02/08/2017 Inactive Bactroban 2 % topica l ointment RxNorm: 691568 1 Application TOP 01/08/2016 02/28/2016 Inactive clorazepate dipotass ium 3.75 mg tablet RxNorm: 708134 1 Tablet(s) PO daily 12/14/2015 06/10/2016 In active fluticasone 50 mcg/a ctuation nasal spray,suspension RxNorm: 514818 2 Bard NASAL daily 12/14/2015 02/11/2016 Inactive diltiazem 30 mg tablet RxNorm: 713766 1 Tablet(s) PO TID 09/03/2015 02/17/2016 Inactive simvastatin 20 mg ta blet RxNorm: 013198 1 Tablet(s) PO daily 08/24/2015 05/11/2016 Inactive triamterene 37.5 mg- hydrochlorothiazide 25 mg tablet RxNorm: 217992 1 Tablet(s) PO daily 07/09/2015 06/28/2016 Inactive clorazepate dipotass ium 15 mg tablet RxNorm: 846020 1 Tablet(s) PO daily 07/06/2015 07/06/2015 In active clorazepate dipotass ium 3.75 mg tablet RxNorm: 434949 1 Tablet(s) PO daily 07/06/2015 12/13/2015 In active esomeprazole magnesi um 40 mg capsule,delayed release RxNorm: 717421 1 Capsule(s) PO daily 06/26/2015 06/12/2016 Inactive famotidine 40 mg tablet RxNorm: 843658 1 Tablet(s) PO daily 06/26/2015 05/04/2016 Inactive diltiazem 30 mg tablet RxNorm: 069156 1 Tablet(s) PO TID 06/09/2015 09/02/2015 Inactive sucralfate 100 mg/mL oral suspension RxNorm: 763740 10 Milliliter(s) per 1 gram PO QID 04/28/2015 04/21/2016 Inactive refill 3 month supply- 1gm/10ml member I d [id number] sucralfate 100 mg/mL oral suspension RxNorm: 683248 10 Milliliter(s) per 1 gram PO QID 04/27/2015 04/27/2015 Inactive refill 3 month supply diltiazem 30 mg tablet RxNorm: 349390 1 Tablet(s) PO TID 02/18/2015 02/17/2015 Inactive diltiazem 30 mg tablet RxNorm: 625168 1 Tablet(s) PO TID 02/18/2015 05/18/2015 Inactive Vitamin D3 2,000 uni t tablet RxNorm: 173336 Tablet(s) PO daily No Start Date Active PreserVision Lutein oral RxNorm: [address] art Date Active Calcium 500 + D oral RxNorm: 602870 oral No Start Date Active Zyrtec 10 mg tablet RxNorm: 9776836 1 Tablet(s) PO daily No Start Date Active melatonin 5 mg tablet RxNorm: 735740 Tablet(s) PO QHS as needed No Start Date Active vitamin B6-vitamin E -magnesium oral RxNorm: 576857 oral No S tart Date Active famotidine 40 mg tablet RxNorm: 308356 1 Tablet(s) PO daily No Start Date 06/25/2015 Inactive clorazepate dipotass ium 3.75 mg tablet RxNorm: 710533 1 Tablet(s) PO daily No Start Date 07/05/2015 Inactive Bactroban 2 % topica l ointment RxNorm: 896001 1 Application TOP No Start Date 01/07/2016 Inactive Carafate 1 gram tablet RxNorm: 774351 1 Tablet(s) PO QID No Start Date 04/26/2015 Inactive esomeprazole magnesi um 40 mg capsule,delayed release RxNorm: 738231 Capsule(s) PO daily No Start Date 06/25/2015 Inactive fluticasone 50 mcg/a ctuation nasal spray,suspension RxNorm: 018796 2 Bard NASAL daily No Start Date 12/13/2015 Inactive Nexium 40 mg capsule ,delayed release RxNorm: 266789 1 Capsule(s) PO daily No Start Date 06/28/2016 Inactive triamterene 37.5 mg- hydrochlorothiazide 25 mg tablet RxNorm: 124829 1 Tablet(s) PO daily No Start Date 07/08/2015 Inactive simvastatin 20 mg ta blet RxNorm: 915889 1 Tablet(s) PO daily No Start Date [...] 31.4 pg 04/18/2018 Cbc With Differential Ord2 Baker% 9.2 % 04/18/2018 Cbc With Differential Ord2 [...] 0.76 K/ul 04/18/2018 Cbc With Differential Ord2 Baker ABS# 0.5 K/ul 04/18/2018 Cbc With Differential [...] Ord15 CALCIUM 9.1 mg/dL 04/18/2018 Comp Metabolic Nvs720 NA 130 mEq/L 12/07/2017 Comp Metabolic Hvb837 K 3.6 mEq/L 12/07/2017 Comp Metabolic Tts853 CL 91 mEq/L 12/07/2017 Comp Metabolic Bqv814 CO2 29.0 mEq/L 12/07/2017 Comp Metabolic Fyb259 AN ION GAP 14 12/07/2017 Comp Metabolic Ide678 GL UCOSE 105 mg/dL 12/07/2017 Comp Metabolic Kco607 Cr eat 0.6 mg/dL 12/07/2017 Comp Metabolic Okd538 eG FR 94 ml/min/1.73m2 12/07 Comp Metabolic Kim899 BUN 15 mg/dL 12/07/2017 Comp Metabolic Fld463 B/ C Ratio 23.4 Ratio 12/07/2017 Comp Metabolic Cff803 CA LCIUM 9.3 mg/dL 12/07/2017 Comp Metabolic Hwa009 AL K PHOS 62 U/L 12/07/2017 Comp Metabolic Kxt797 T(SGOT) 31 U/L 12/07/2017 Comp Metabolic Qlg540 AL T(SGPT) 22 U/L 12/07/2017 Comp Metabolic Kuk792 BI LI T 0.4 mg/dL 12/07/2017 Comp Metabolic Hig570 AL BUMIN 4.3 g/dL 12/07/2017 Comp Metabolic Dsn481 TP RO 6.5 g/dL 12/07/2017 Comp Metabolic Qoc727 GL OB 2.2 g/dL 12/07/2017 Comp Metabolic Jsw244 A/ G Ratio 2.0 Ratio 12/07/2017 Comp Metabolic Zyq259 Os mo 262 mOsmo 12/07/2017 Cbc With [...] 31.0 pg 12/07/2017 Cbc With Differential Ord2 Baker% 10.4 % 12/07/2017 Cbc With Differential Ord2 [...] 0.57 K/ul 12/07/2017 Cbc With Differential Ord2 Baker ABS# 0.5 K/ul 12/07/2017 Cbc With Differential [...] 93.9 fl 06/21/2017 Cbc With Differential Ord2 Baker% 10.1 % 06/21/2017 Cbc With Differential Ord2 [...] 0.65 K/ul 06/21/2017 Cbc With Differential Ord2 Baker ABS# 0.5 K/ul 06/21/2017 Cbc With Differential Ord2 Eos ABS# 0.2 K/ul 06/21/2017 Cbc With Differential Ord2 Baso ABS# 0.0 K/ul 06/21/2017 Comp Metabolic Ssm685 NA 133 mEq/L 06/21/2017 Comp Metabolic Moa641 K 4.0 mEq/L 06/21/2017 Comp Metabolic Kyp022 CL 94 mEq/L 06/21/2017 Comp Metabolic Fhk043 CO2 25.0 mEq/L 06/21/2017 Comp Metabolic Sgv234 AN ION GAP 18 06/21/2017 Comp Metabolic Exw026 GL UCOSE 88 mg/dL 06/21/2017 Comp Metabolic Csr717 Cr eat 0.6 mg/dL 06/21/2017 Comp Metabolic Ikn215 eG FR 94 ml/min/1.73m2 06/21 Comp Metabolic Oed275 BUN 16 mg/dL 06/21/2017 Comp Metabolic Lru752 B/ C Ratio 25.0 Ratio 06/21/2017 Comp Metabolic Rdb431 CA LCIUM 9.1 mg/dL 06/21/2017 Comp Metabolic Hoa627 AL K PHOS 65 U/L 06/21/2017 Comp Metabolic Xlm125 T(SGOT) 31 U/L 06/21/2017 Comp Metabolic Frp398 AL T(SGPT) 20 U/L 06/21/2017 Comp Metabolic Zll899 BI LI T 0.5 mg/dL 06/21/2017 Comp Metabolic Kqs943 AL BUMIN 4.3 g/dL 06/21/2017 Comp Metabolic Idz871 TP RO 6.6 g/dL 06/21/2017 Comp Metabolic Xkg167 GL OB 2.3 g/dL 06/21/2017 Comp Metabolic Yor647 A/ G Ratio 1.8 Ratio 06/21/2017 Comp Metabolic Fpd522 Os mo 267 mOsmo 06/21/2017 Lipid Ord30 CHOL 188 mg/dL 06/21/2017 Lipid Ord30 HDL 77.0 mg/dl 06/21/2017 Lipid Ord30 TRIG 66 mg/dL 06/21/2017 Lipid Ord30 LDL 98 mg/dL 06/21/2017 Lipid Ord30 C/HDL 2.4 Ratio 06/21/2017 Tsh Ord6 hTSH II 1.32 uIU/mL 06/21/2017 Comp Metabolic Ohp098 NA 135 mEq/L 02/09/2017 Comp Metabolic Fyk546 K 4.0 mEq/L 02/09/2017 Comp Metabolic Brx759 CL 96 mEq/L 02/09/2017 Comp Metabolic Fwm260 CO2 28.0 mEq/L 02/09/2017 Comp Metabolic Vnd534 AN ION GAP 15 02/09/2017 Comp Metabolic Wkr712 GL UCOSE 101 mg/dL 02/09/2017 Comp Metabolic Chw776 Cr eat 0.7 mg/dL 02/09/2017 Comp Metabolic Qfz205 eG FR 83 ml/min/1.73m2 02/09 Comp Metabolic Xtx314 BUN 17 mg/dL 02/09/2017 Comp Metabolic Ptu427 B/ C Ratio 23.9 Ratio 02/09/2017 Comp Metabolic Bxu283 CA LCIUM 9.3 mg/dL 02/09/2017 Comp Metabolic Jqt389 AL K PHOS 51 U/L 02/09/2017 Comp Metabolic Xsi490 T(SGOT) 33 U/L 02/09/2017 Comp Metabolic Mtz073 AL T(SGPT) 21 U/L 02/09/2017 Comp Metabolic Xix073 BI LI T 0.6 mg/dL 02/09/2017 Comp Metabolic Euk901 AL BUMIN 4.3 g/dL 02/09/2017 Comp Metabolic Can425 TP RO 6.9 g/dL 02/09/2017 Comp Metabolic Cta346 GL OB 2.6 g/dL 02/09/2017 Comp Metabolic Xlx137 A/ G Ratio 1.7 Ratio 02/09/2017 Comp Metabolic Ung428 Os mo 272 mOsmo 02/09/2017 Lipid Ord30 [...] 94.3 fl 02/09/2017 Cbc With Differential Ord2 Baker% 11.3 % 02/09/2017 Cbc With Differential Ord2 [...] 0.77 K/ul 02/09/2017 Cbc With Differential Ord2 Baker ABS# 0.6 K/ul 02/09/2017 Cbc With Differential [...] 31.5 pg 03/29/2016 Cbc With Differential Ord2 Baker% 9.5 % 03/29/2016 Cbc With Differential Ord2 [...] 0.60 K/ul 03/29/2016 Cbc With Differential Ord2 Baker ABS# 0.4 K/ul 03/29/2016 Cbc With Differential Ord2 Eos ABS# 0.1 K/ul 03/29/2016 Cbc With Differential Ord2 Baso ABS# 0.0 K/ul 03/29/2016 Comp Metabolic Ppl329 NA 135 mEq/L 03/29/2016 Comp Metabolic Qam420 K 3.7 mEq/L 03/29/2016 Comp Metabolic Xoe652 CL 96 mEq/L 03/29/2016 Comp Metabolic Hhn496 CO2 30.0 mEq/L 03/29/2016 Comp Metabolic Fbt589 AN ION GAP 13 03/29/2016 Comp Metabolic Pqg623 GL UCOSE 102 mg/dL 03/29/2016 Comp Metabolic Hhq998 Cr eat 0.6 mg/dL 03/29/2016 Comp Metabolic Cfb602 eG FR 94 ml/min/1.73m2 03/29 Comp Metabolic Hlw916 BUN 15 mg/dL 03/29/2016 Comp Metabolic Bun506 B/ C Ratio 23.4 Ratio 03/29/2016 Comp Metabolic Zdp392 CA LCIUM 9.1 mg/dL 03/29/2016 Comp Metabolic Arf683 AL K PHOS 70 U/L 03/29/2016 Comp Metabolic Rpt352 T(SGOT) 35 U/L 03/29/2016 Comp Metabolic Clp177 AL T(SGPT) 27 U/L 03/29/2016 Comp Metabolic Raf320 BI LI T 0.5 mg/dL 03/29/2016 Comp Metabolic Mfg600 AL BUMIN 4.2 g/dL 03/29/2016 Comp Metabolic Jks064 TP RO 6.6 g/dL 03/29/2016 Comp Metabolic Kgl356 GL OB 2.4 g/dL 03/29/2016 Comp Metabolic Unz199 A/ G Ratio 1.7 Ratio 03/29/2016 Comp Metabolic Efi448 Os mo 271 mOsmo 03/29/2016 Tsh Ord6 hTSH II 1.17 uIU/mL 03/29/2016 B12 Ucr198 B12 838.00 pg/ml 09/02/2015 Tsh Ord6 hTSH [...] Ord2 RDW 15.1 % 09/02/2015 Comp Metabolic Mom256 NA 135 mEq/L 09/02/2015 Comp Metabolic Fje709 K 3.4 mEq/L 09/02/2015 Comp Metabolic Vtf904 CL 95 mEq/L 09/02/2015 Comp Metabolic Vrn895 CO2 27.0 mEq/L 09/02/2015 Comp Metabolic Wjq030 AN ION GAP 16 09/02/2015 Comp Metabolic Vcf097 GL UCOSE 94 mg/dL 09/02/2015 Comp Metabolic Kmv328 Cr eat 0.7 mg/dL 09/02/2015 Comp Metabolic Ctp935 eG FR 87 ml/min/1.73m2 09/02 Comp Metabolic Jup529 BUN 18 mg/dL 09/02/2015 Comp Metabolic Hvm433 B/ C Ratio 26.1 Ratio 09/02/2015 Comp Metabolic Ilg806 CA LCIUM 9.0 mg/dL 09/02/2015 Comp Metabolic Guk169 AL K PHOS 67 U/L 09/02/2015 Comp Metabolic Yrb868 T(SGOT) 30 U/L 09/02/2015 Comp Metabolic Ejb003 AL T(SGPT) 21 U/L 09/02/2015 Comp Metabolic Dqg416 BI LI T 0.6 mg/dL 09/02/2015 Comp Metabolic Ggq036 AL BUMIN 4.3 g/dL 09/02/2015 Comp Metabolic Cuv080 TP RO 6.8 g/dL 09/02/2015 Comp Metabolic Zhw994 GL OB 2.5 g/dL 09/02/2015 Comp Metabolic Wfv561 A/ G Ratio 1.7 Ratio 09/02/2015 Comp Metabolic Hfx622 Os mo 272 mOsmo 09/02/2015 Lipid Ord30 [...] VACC PRSV FREE I NC ANTIG CPT-4: 03200 06/21/2017 ADMIN INFLUENZA VIRU S VAC CPT-4: G0008 06/24/2016 FLU VACC 4 CRISTINE 3 YRS PLUS IM Formatting Model/CDA Sections, Assigned to/Carmen Solis SNOMED CT: 66035051 CPT-4: 93198Hndjnpa 06/24/2016 ADMIN INFLUENZA VIRU S VAC CPT-4: G0008 06/19/2015 FLU VACC 4 CRISTINE 3 YRS PLUS IM Formatting Model/CDA Sections, Assigned to/Carmen Solis SNOMED CT: 06849583 CPT-4: 11839Qevunky 06/19/2015 Vital Signs Date Vital 05/14/2018 Blood Pressure 1: 146/68 Code: 8480-6 BMI: 16.0 Code: 38173-7 Heart Rate 1: 70 bpm Height: 5'2" SpO2: 98% Weight: 89 lbs 04/18/2018 Blood Pressure 1: 126/68 Code: 8480-6 BMI: 15.7 Code: 19886-0 Heart Rate 1: 81 bpm Height: 5'2" SpO2: 99% Weight: 87 lbs 01/22/2018 Blood Pressure 1: 136/76 Code: 8480-6 BMI: 15.8 Code: 00949-3 Heart Rate 1: 73 bpm Height: 5'2" SpO2: 99% Weight: 88 lbs 01/01/2018 Blood Pressure 1: 148/76 Code: 8480-6 BMI: 15.8 Code: 68309-9 Heart Rate 1: 74 bpm Height: 5'2" SpO2: 98% Weight: 88 lbs 12/12/2017 Blood Pressure 1: 140/72 Code: 8480-6 BMI: 15.8 Code: 07978-7 Heart Rate 1: 65 bpm Height: 5'2" SpO2: 96% Weight: 88 lbs 09/13/2017 Blood Pressure 1: 138/70 Code: 8480-6 BMI: 15.9 Code: 41995-4 Heart Rate 1: 74 bpm Height: 5'2" SpO2: 99% Weight: 88 lbs 8 oz 06/21/2017 Blood Pressure 1: 122/50 Code: 8480-6 BMI: 15.3 Code: 44970-7 Heart Rate 1: 69 bpm Height: 5'2" SpO2: 99% Weight: 85 lbs 05/25/2017 Blood Pressure 1: 138/72 Code: 8480-6 Heart Rate 1: 77 bpm Height: 5'2" SpO2: 98% Weight: 05/16/2017 Blood Pressure 1: 136/78 Code: 8480-6 Heart Rate 1: 86 bpm Height: 5'2" SpO2: 98% Weight: 02/15/2017 Blood Pressure 1: 144/78 Code: 8480-6 BMI: 15.4 Code: 96719-5 Heart Rate 1: 65 bpm Height: 5'2" SpO2: 98% Weight: 85 lbs 8 oz 11/22/2016 Blood Pressure 1: 140/58 Code: 8480-6 BMI: 14.8 Code: 83369-1 Heart Rate 1: 79 bpm Height: 5'2" SpO2: 99% Weight: 82 lbs 09/15/2016 BMI: 16.0 Code: 73688-6 Height: 5'2" Weight: 89 lbs 09/07/2016 Blood Pressure 1: 130/62 Code: 8480-6 BMI: 16.2 Code: 24891-2 Heart Rate 1: 71 bpm Height: 5'2" SpO2: 98% Weight: 90 lbs 07/06/2016 Blood Pressure 1: 144/76 Code: 8480-6 BMI: 15.8 Code: 30926-9 Heart Rate 1: 78 bpm Height: 5'2" SpO2: 99% Weight: 88 lbs 04/06/2016 Blood Pressure 1: 148/58 Code: 8480-6 BMI: 16.2 Code: 51878-1 Heart Rate 1: 64 bpm Height: 5'2" SpO2: 97% Weight: 90 lbs 01/06/2016 Blood Pressure 1: 146/72 Code: 8480-6 BMI: 16.6 Code: 27339-5 Heart Rate 1: 62 bpm Height: 5'2" SpO2: 99% Weight: 92 lbs 09/02/2015 Blood Pressure 1: 132/70 Code: 8480-6 BMI: 16.6 Code: 20537-2 Heart Rate 1: 77 bpm Height: 5'2" SpO2: 98% Weight: 92 lbs 06/15/2015 Blood Pressure 1: 144/60 Code: 8480-6 BMI: 16.7 Code: 63203-6 Heart Rate 1: 66 bpm Height: 5'2" SpO2: 97% Weight: 93 lbs 03/04/2015 Blood Pressure 1: 120/80 Code: 8480-6 BMI: 15.8 Code: 48786-0 Heart Rate 1: 74 bpm Height: 5'2" [...] shoulder 01/22/2018 None shoulder pain Quality ac [place] 01/22/2018 None shoulder pain Quality co nstant [...] nstant 01/01/2018 None shoulder pain Quality ac [place] 01/01/2018 None shoulder pain Quality wo rsening [...] Episodes unchanged 01/06/2016 Non e hypertension Quality [facility] 01/06/2016 None hypertension Quality [facility] [...] Encounter Performer Loca tion Codes Date () 12453 EST. P ATIENT, LEVEL III Diagnosis: Rash and other nonspecific skin eruption[ICD10: R21] Rosalinda Bradshaw MD, [facility] CPT-4: 68647 05/14/2018 ([id number]) 05101 EST. P ATIENT, LEVEL IV Diagnosis: Essential (primary) hypertension[ICD10: I10] Diagnosis: Underweight[ICD10: R63.6] Diagnosis: Mixed hyperlipidemia[ICD10: E78.2] Anum Bradshaw MD, [facility] CPT- 4: 32472 04/18/2018 ([id number]) 98578 EST. P ATIENT, LEVEL III Diagnosis: Bicipital tendinitis, left shoulder[ICD10: M75.22] Anum Bradshaw MD, C CPT-4: 23477 01/22/2018 ([id number]) 48364 EST. P ATIENT, LEVEL III Diagnosis: Pain in right shoulder[ICD10: M25.511] Diagnosis: Bicipital tendinitis, right shoulder[ICD10: M75.21] Anum Bradshaw MD, C CPT-4: 24240 01/01/2018 ([id number]) 26538 EST. P ATIENT, LEVEL IV Diagnosis: Essential (primary) hypertension[ICD10: I10] Diagnosis: Underweight[ICD10: R63.6] Diagnosis: Mixed hyperlipidemia[ICD10: E78.2] Diagnosis: Actinic keratosis[ICD10: L57.0] Anum Bradshaw MD, [facility] CPT-4: 97135 12/12/2017 ([id number]) 96846 EST. P ATIENT, LEVEL III Diagnosis: Essential (primary) hypertension[ICD10: I10] Diagnosis: Fracture of unspecified part of neck of left femur, subsequent encounter for closed fracture with routine healing[ICD10: S72.002D] Diagnosis: Underweight[ICD10: R63.6] Anum Bradshaw MD, [facility] CPT-4: 33127 09/13/2017 ([id number]) 62169 EST. P ATIENT, LEVEL IV Diagnosis: Mixed hyperlipidemia[ICD10: E78.2] Diagnosis: Essential (primary) hypertension[ICD10: I10] Diagnosis: Vitamin B12 deficiency anemia due to intrinsic factor deficiency[ICD10: D51.0] Diagnosis: Gastro-esophageal reflux disease with esophagitis[ICD10: K21.0] Diagnosis: Age-related osteoporosis without current pathological fracture[ICD10: M81.0] Diagnosis: Encounter for immunization[ICD10: Z23] Anum Bradshaw MD, [facility] CPT-4: 69930 06/21/2017 ([id number]) 68639 EST. P ATIENT, LEVEL III Diagnosis: Fracture of unspecified part of neck of left femur, subsequent encounter for closed fracture with routine healing[ICD10: S72.002D] Diagnosis: Underweight[ICD10: R63.6] Diagnosis: Gastro-esophageal reflux disease with esophagitis[ICD10: K21.0] Anum Bradshaw MD, [facility] CPT-4: 67994 05/25/2017 ([id number]) 13360 EST. P ATIENT, LEVEL IV Diagnosis: Essential (primary) hypertension[ICD10: I10] Diagnosis: Fracture of unspecified part of neck of left femur, subsequent encounter for closed fracture with routine healing[ICD10: S72.002D] Diagnosis: Generalized anxiety disorder[ICD10: F41.1] Anum Bradshaw MD, [facility] CPT-4: 71737 05/16/2017 ([id number]) 22977 EST. P ATIENT, LEVEL IV Diagnosis: Essential (primary) hypertension[ICD10: I10] Diagnosis: Mixed hyperlipidemia[ICD10: E78.2] Diagnosis: Generalized anxiety disorder[ICD10: F41.1] Anum Bradshaw MD, [facility] CPT-4: 61425 02/15/2017 ([id number]) 62493 EST. P ATIENT, LEVEL IV Diagnosis: Mixed hyperlipidemia[ICD10: E78.2] Diagnosis: Generalized anxiety disorder[ICD10: F41.1] Diagnosis: Essential (primary) hypertension[ICD10: I10] Diagnosis: Gastro-esophageal reflux disease with esophagitis[ICD10: K21.0] Anum Bradshaw MD, [facility] CPT-4: 08367 11/22/2016 [id number] EST. PATIENT, LEVEL III Diagnosis: Inflamed seborrheic keratosis[ICD10: L82.0] Kala Bradshaw MD, [facility] CPT-4: 31942 09/15/2016 ([id number]) 52122 EST. P ATIENT, LEVEL IV Diagnosis: Essential (primary) hypertension[ICD10: I10] Diagnosis: Mixed hyperlipidemia[ICD10: E78.2] Diagnosis: Generalized anxiety disorder[ICD10: F41.1] Anum Bradshaw MD [facility] CPT-4: 40587 09/07/2016 ([id number]) 28052 EST. P ATIENT, LEVEL IV Diagnosis: Essential (primary) hypertension[ICD10: I10] Diagnosis: Frequency of micturition[ICD10: R35.0] Diagnosis: Age-related osteoporosis without current pathological fracture[ICD10: M81.0] Anum Bradshaw MD, [facility] CPT-4: 96204 07/06/2016 ([id number]) 28877 EST. P ATIENT, LEVEL IV Diagnosis: Essential (primary) hypertension[ICD10: I10] Diagnosis: Mixed hyperlipidemia[ICD10: E78.2] Diagnosis: Gastro-esophageal reflux disease with esophagitis[ICD10: K21.0] Anum Bradshaw MD, [facility] CPT-4: 69184 04/06/2016 [id number] EST. PATIENT, LEVEL IV Diagnosis: Essential (primary) hypertension[ICD10: I10] Diagnosis: Gastro-esophageal reflux disease with esophagitis[ICD10: K21.0] Kala Bradshaw MD, [facility] CPT-4: 62363 01/06/2016 ([id number]) [id number] EST. P ATIENT, LEVEL IV Diagnosis: Essential (primary) hypertension[ICD10: I10] Diagnosis: Gastro-esophageal reflux disease with esophagitis[ICD10: K21.0] Diagnosis: Other dietary vitamin B12 deficiency anemia[ICD10: D51.3] Diagnosis: Vitamin B12 deficiency anemia due to intrinsic factor deficiency[ICD10: D51.0] Diagnosis: Occlusion and stenosis of unspecified carotid artery[ICD10: I65.29] [facility] CPT-4: 62104 09/02/2015 ([id number]) [id number] EST. P ATIENT, LEVEL III Diagnosis: Carpal tunnel syndrome[ICD9: 354.0] Diagnosis: Inflamed seborrheic keratosis[ICD9: 702.11] Rosalindajolly Bradshaw MD, [facility] CPT-4: 73214 06/15/2015 ([id number]) OFFICE VISI T, NEW - LEVEL 4 Diagnosis: ESSENTIAL HYPERTENSION[ICD9: 401.9] Diagnosis: ESOPHAGEAL REFLUX[ICD9: 530.81] Diagnosis: HYPERLIPIDEMIA[ICD9: 272.4] Anum Bradshaw MD, [facility] CPT-4: 95915 03/04/2015 Plan of Care Planned Activity Notes [...] to medications. 04/18/2018 App[facility]ment[phone] (15 min) Moderate 04/18/2018 Patient Education: Patient Medication Summary Completed 04/18/2018 Appointment: Injection 03/08/2018 Visit Plan: Left shoulder pain - bi cep tendonitis - continue with physical therapy at [facility]. Use voltaren gel on left shoulder now - continue with therapy on right shoulder. 01/22/2018 Appointment: Anum Bradshaw WPtel: [phone] [facility] (15 min) Moderate 01/22/2018 Patient Education: Patient [...] tendonitis - referral to physical therapy at [facility] 01/01/2018 Appointment: [phone] [facility] (15 min) Moderate 01/01/2018 Patient Education: [...] 12/12/2017 Appointment: [phone] (15 min) Moderate 12/12/2017 Patient Education: [...] - healing. 09/13/2017 Appointment: [phone] [facility] (15 min) Moderate 09/13/2017 [...] not improving. 06/21/2017 Appointment: [facility] Bradshaw [facility]el[facility] [phone] [facility] [place] (15 min) Moderate 06/21/2017 Patient Education: Patient Medication Summary Completed 06/21/2017 Visit Plan: Esophageal Reflux - the patient has been taking medication as directed and her symptoms are improved. Hip fracture - continue with supportive care, nonweight bearing. Underweight - increase protein intake, higher calorie diet, use wheelchair to decrease excessive caloric expenditure. 05/25/2017 Appointment: Anum Bradshaw WPtel: [facility] (15 min) Moderate 05/25/2017 Patient Education: Patient [...] current medications. 05/16/2017 Appointment: Anum Bradshaw [facility]Ptel[facility] (15 min) Moderate 05/16/2017 Patient Education: [...] to medications. 02/15/2017 Appointment: Anum Bradshaw [facility]Ptel[facility] (15 min) Moderate 02/15/2017 Patient Education: Patient Medication Summary Completed 02/15/2017 Patient Education: Hypertension Completed 02/15/2017 Care Plan: Referral Order SNOMED-CT : [id number] Pending 02/15/2017 Appointment: Anum Bradshaw WPtel: [facility] (15 min) Moderate 01/11/2017 Visit Plan: Hypertension [...] current treatment 11/22/2016 Appointment: Anum Bradshaw [facility]Ptel[facility] (15 min) Moderate 11/22/2016 Patient Education: Patient Medication Summary Completed 11/22/2016 Patient Education: Hypertension Completed 11/22/2016 Appointment: Rosalinda Bermudez WPtel: [phone] [place] (30 min) Complex 09/16/2016 Visit [...] symptoms. 09/07/2016 Appointment: Anum Bradshaw WPtel: [phone] [id number] (15 min) Moderate 09/07/2016 Patient Education: Patient [...] ua negative 07/06/2016 Appointment: Anum Bradshaw WPtel: [facility] (15 min) Moderate 07/06/2016 Patient Education: Patient [...] not improving. 04/06/2016 Appointment: Anum Bradshaw WPtel[facility] (15 min) Moderate 04/06/2016 [...] 09/02/2015 Care Plan: Referral Order SNOMED-CT : [id number] Ordered 09/02/2015 Appointment: Injection 06/19/2015 Patient Education: [...] 03/04/2015 Appointment: [facility] Bradshaw [facility]el[phone] [facility] [place] (S) New Patient [...] continue with physical therapy at [facility]. Use voltaren gel on left shoulder [...]
--- OUTSIDE RECORDS SUMMARY | 2019-12-29 11:34 | XMS REPORT | CCD ---
Author Author Ashley Bradshaw Organization [facility] Address [address] [place] [address] Phone Care Team Providers Care Magician/Illusionist Name Role Phone PP Unavailable CCM Unavailable Summary Purpose Interface Exchange Insurance Providers Payer name Policy type / Coverage type Covered libertarian ID Effective Begin Date Effective End Date WPS Medicare Part B Medicare Part B [id number] Unknown Unknown CIGNA Medicare Part B [id number] Unknown Unknown Family history Father Diagnosis Age At Onset Coronary Artery Disease Unknown Mother Diagnosis Age At Onset Anemia Unknown Skin cancer Unknown Hypertension Unknown Cancer Unknown Breast cancer Unknown Social History Social History Element Codes Description Effective Dates Marital status Unknown M arrkimberly Shahram 03/04/2015 Number of children Unknown 3 03/04/[address]: 332522901 Never smoker 03/04/[address]: 870212025 Never drinks alcohol 03/04/2015 Allergies, Adverse Reactions, Alerts Substance Reaction Codes Entered Date Inactivated Date Status NEOSPORIN RxNorm: 281752 01/06/2016 No Inactive Date Active Past Medical [...] Sta tus Fill Instructions ketoconazole 2 % [facility] mpoo RxNorm: 384516 1 Application TOP BIW 05/14/2018 No Stop Date Active simvastatin 20 mg ta blet RxNorm: 965804 TAKE 1 TABLET BY MOUT H EVERY DAY 03/01/2018 08/27/2018 Ac tive triamterene 37.5 mg- hydrochlorothiazide 25 mg tablet RxNorm: 736778 Tablet(s) 1 Tablet(s) PO daily 02/06/2018 08/04/2018 Active PLEASE SEND REFILL REQUESTS ELECTRONICALLY Voltaren 1 % topical gel RxNorm: 035520 2 Gram(s) TOP TID to shoulders 01/01/2018 04/30/2018 In active sucralfate 100 mg/mL oral suspension RxNorm: 788418 10 Milliliter(s) per 1 gram PO QID 12/12/2017 06/09/2018 Active refill 3 month supply- 1gm/10ml simvastatin 20 mg ta blet RxNorm: 724318 TAKE 1 TABLET BY MOUT H EVERY DAY 12/04/2017 02/28/2018 In active escitalopram 5 mg ta blet RxNorm: 366095 1 Tablet(s) PO QPM 10/26/2017 01/18/2019 Active esomeprazole magnesi um 40 mg capsule,delayed release RxNorm: 140332 TAKE 1 CAPSULE BY MOUTH DAILY 10/26/2017 01/18/2019 Active mupirocin 2 % topica l ointment RxNorm: 232488 APPLY TO AFFECTED ARE A(S) ONCE DAILY 10/16/2017 11/28/2017 In active diltiazem 30 mg tablet RxNorm: 315597 1 Tablet(s) PO QID 10/09/2017 10/03/2018 Active triamterene 37.5 mg- hydrochlorothiazide 25 mg tablet RxNorm: 548903 1 Tablet(s) PO daily 07/28/2017 01/23/2018 Inactive fluticasone 50 mcg/a ctuation nasal spray,suspension RxNorm: 2763430 2 [place] NASAL daily 07/20/2017 01/15/2018 Inactive diltiazem 30 mg tablet RxNorm: 003038 1 Tablet(s) PO QID TAKE 1 TABLET BY MOUT H FOUR TIMES DAILY 07/13/2017 10/08/2017 Inactive simvastatin 20 mg ta blet RxNorm: 271668 TAKE 1 TABLET BY MOUT H EVERY DAY 06/08/2017 12/03/2017 In active Nexium 40 mg capsule ,delayed release RxNorm: 230590 1 Capsule(s) PO daily 05/25/2017 11/27/2017 In active esomeprazole magnesi um 40 mg capsule,delayed release RxNorm: 417513 Capsule(s) TAKE 1 CAPSULE BY MOUTH DAILY 05/17/2017 02/10/2018 Inactive diltiazem 30 mg tablet RxNorm: 195914 Tablet(s) TAKE 1 TABLET BY MOUTH FOUR TI MES DAILY 05/16/2017 07/12/2017 Inactive diltiazem 30 mg tablet RxNorm: 398947 TAKE 1 TABLET BY MOUTH THREE TIMES DAILY 02/09/2017 05/15/2017 In active Zofran ODT 4 mg disi ntegrating tablet RxNorm: 935457 1 Tablet(s) PO Q6 as needed 11/16/2016 11/22/2016 In active Protonix 40 mg table t,delayed release RxNorm: 313564 1 Tablet(s) PO daily 11/16/2016 12/15/2016 In active Protonix 40 mg table t,delayed release RxNorm: 419349 1 Tablet(s) PO daily 11/16/2016 11/15/2016 In active Zofran ODT 4 mg disi ntegrating tablet RxNorm: 847502 1 Tablet(s) PO Q6 as needed 11/16/2016 11/15/2016 In active escitalopram 5 mg ta blet RxNorm: 827793 1 Tablet(s) PO QPM 10/28/2016 10/22/2017 Inactive escitalopram 5 mg ta blet RxNorm: 962746 1 Tablet(s) PO QPM 10/05/2016 10/27/2016 Inactive mupirocin 2 % topica l ointment RxNorm: 106884 1 Application TOP yao ly APPLY TO AFFECTED AREA(S) TOPICALLY DAILY 09/07/2016 11/05/2016 Inactive Efudex 5 % topical c ream RxNorm: 792789 1 TOP BID 09/07/2016 09/16/2016 Inactive escitalopram 5 mg ta blet RxNorm: 006007 1 Tablet(s) PO QPM 09/07/2016 10/04/2016 Inactive sucralfate 100 mg/mL oral suspension RxNorm: 583417 10 Milliliter(s) per 1 gram PO QID 08/03/2016 07/28/2017 Inactive refill 3 month supply- 1gm/10ml clorazepate dipotass ium 3.75 mg tablet RxNorm: 016545 1 Tablet(s) PO QHS as needed insomnia 07/06/2016 06/30/2017 Inactive triamterene 37.5 mg- hydrochlorothiazide 25 mg tablet RxNorm: 597451 1 Tablet(s) PO daily 06/29/2016 06/23/2017 Inactive Nexium 40 mg capsule ,delayed release RxNorm: 697126 1 Capsule(s) PO daily 06/29/2016 07/05/2016 In active Bactroban 2 % topica l ointment RxNorm: 638331 APPLY TO AFFECTED ARE A(S) TOPICALLY DAILY 06/22/2016 09/06/2016 Inactive esomeprazole magnesi um 40 mg capsule,delayed release RxNorm: 390663 TAKE 1 CAPSULE BY MOUTH DAILY 06/13/2016 03/09/2017 Inactive simvastatin 20 mg ta blet RxNorm: 883891 1 Tablet(s) PO daily 05/16/2016 06/07/2017 Inactive simvastatin 20 mg ta blet RxNorm: 542177 1 Tablet(s) PO daily 05/12/2016 05/15/2016 Inactive famotidine 40 mg tablet RxNorm: 581310 TAKE 1 TABLET BY MOUTH DAILY 05/05/2016 01/29/2017 Inactive Bactroban 2 % topica l ointment RxNorm: 999807 APPLY TO AFFECTED ARE A(S) TOPICALLY DAILY 04/25/2016 05/01/2016 Inactive fluticasone 50 mcg/a ctuation nasal spray,suspension RxNorm: 2264642 2 [place] NASAL daily 03/23/2016 09/18/2016 Inactive fluticasone 50 mcg/a ctuation nasal spray,suspension RxNorm: 442038 2 [place] NASAL daily 03/07/2016 03/22/2016 Inactive Bactroban 2 % topica l ointment RxNorm: 511403 APPLY TO AFFECTED ARE A(S) TOPICALLY DAILY 02/29/2016 03/06/2016 Inactive diltiazem 30 mg tablet RxNorm: 385293 1 Tablet(s) PO TID 02/18/2016 02/08/2017 Inactive Bactroban 2 % topica l ointment RxNorm: 818667 1 Application TOP 01/08/2016 02/28/2016 Inactive clorazepate dipotass ium 3.75 mg tablet RxNorm: 068185 1 Tablet(s) PO daily 12/14/2015 06/10/2016 In active fluticasone 50 mcg/a ctuation nasal spray,suspension RxNorm: 620948 2 [place] NASAL daily 12/14/2015 02/11/2016 Inactive diltiazem 30 mg tablet RxNorm: 088662 1 Tablet(s) PO TID 09/03/2015 02/17/2016 Inactive simvastatin 20 mg ta blet RxNorm: 518419 1 Tablet(s) PO daily 08/24/2015 05/11/2016 Inactive triamterene 37.5 mg- hydrochlorothiazide 25 mg tablet RxNorm: 270404 1 Tablet(s) PO daily 07/09/2015 06/28/2016 Inactive clorazepate dipotass ium 15 mg tablet RxNorm: 669510 1 Tablet(s) PO daily 07/06/2015 07/06/2015 In active clorazepate dipotass ium 3.75 mg tablet RxNorm: 644836 1 Tablet(s) PO daily 07/06/2015 12/13/2015 In active esomeprazole magnesi um 40 mg capsule,delayed release RxNorm: 197911 1 Capsule(s) PO daily 06/26/2015 06/12/2016 Inactive famotidine 40 mg tablet RxNorm: 064283 1 Tablet(s) PO daily 06/26/2015 05/04/2016 Inactive diltiazem 30 mg tablet RxNorm: 624973 1 Tablet(s) PO TID 06/09/2015 09/02/2015 Inactive sucralfate 100 mg/mL oral suspension RxNorm: 507348 10 Milliliter(s) per 1 gram PO QID 04/28/2015 04/21/2016 Inactive refill 3 month supply- 1gm/10ml member I d [id number] sucralfate 100 mg/mL oral suspension RxNorm: 769812 10 Milliliter(s) per 1 gram PO QID 04/27/2015 04/27/2015 Inactive refill 3 month supply diltiazem 30 mg tablet RxNorm: 653217 1 Tablet(s) PO TID 02/18/2015 02/17/2015 Inactive diltiazem 30 mg tablet RxNorm: 642129 1 Tablet(s) PO TID 02/18/2015 05/18/2015 Inactive Vitamin D3 2,000 uni t tablet RxNorm: 870100 Tablet(s) PO daily No Start Date Active PreserVision Lutein oral RxNorm: [address] art Date Active Calcium 500 + D oral RxNorm: 394473 oral No Start Date Active Zyrtec 10 mg tablet RxNorm: 8531433 1 Tablet(s) PO daily No Start Date Active melatonin 5 mg tablet RxNorm: 099906 Tablet(s) PO QHS as needed No Start Date Active vitamin B6-vitamin E -magnesium oral RxNorm: 277360 oral No S tart Date Active famotidine 40 mg tablet RxNorm: 265551 1 Tablet(s) PO daily No Start Date 06/25/2015 Inactive clorazepate dipotass ium 3.75 mg tablet RxNorm: 245149 1 Tablet(s) PO daily No Start Date 07/05/2015 Inactive Bactroban 2 % topica l ointment RxNorm: 469697 1 Application TOP No Start Date 01/07/2016 Inactive Carafate 1 gram tablet RxNorm: 779666 1 Tablet(s) PO QID No Start Date 04/26/2015 Inactive esomeprazole magnesi um 40 mg capsule,delayed release RxNorm: 423444 Capsule(s) PO daily No Start Date 06/25/2015 Inactive fluticasone 50 mcg/a ctuation nasal spray,suspension RxNorm: 394125 2 [place] NASAL daily No Start Date 12/13/2015 Inactive Nexium 40 mg capsule ,delayed release RxNorm: 611690 1 Capsule(s) PO daily No Start Date 06/28/2016 Inactive triamterene 37.5 mg- hydrochlorothiazide 25 mg tablet RxNorm: 107740 1 Tablet(s) PO daily No Start Date 07/08/2015 Inactive simvastatin 20 mg ta blet RxNorm: 433537 1 Tablet(s) PO daily No Start Date [...] 31.4 pg 04/18/2018 Cbc With Differential Ord2 [place]% 9.2 % 04/18/2018 Cbc With Differential Ord2 [...] 0.76 K/ul 04/18/2018 Cbc With Differential Ord2 [place] ABS# 0.5 K/ul 04/18/2018 Cbc With Differential [...] Ord15 CALCIUM 9.1 mg/dL 04/18/2018 Comp Metabolic Wyu939 NA 130 mEq/L 12/07/2017 Comp Metabolic Gox475 K 3.6 mEq/L 12/07/2017 Comp Metabolic Sse845 CL 91 mEq/L 12/07/2017 Comp Metabolic Tnx105 CO2 29.0 mEq/L 12/07/2017 Comp Metabolic Tpu775 AN ION GAP 14 12/07/2017 Comp Metabolic Uaq385 GL UCOSE 105 mg/dL 12/07/2017 Comp Metabolic Npd608 Cr eat 0.6 mg/dL 12/07/2017 Comp Metabolic Zwp571 eG FR 94 ml/min/1.73m2 12/07 Comp Metabolic Xiq404 BUN 15 mg/dL 12/07/2017 Comp Metabolic Lic896 B/ C Ratio 23.4 Ratio 12/07/2017 Comp Metabolic Fgw209 CA LCIUM 9.3 mg/dL 12/07/2017 Comp Metabolic Wdm945 AL K PHOS 62 U/L 12/07/2017 Comp Metabolic Afa829 T(SGOT) 31 U/L 12/07/2017 Comp Metabolic Wcs363 AL T(SGPT) 22 U/L 12/07/2017 Comp Metabolic Isz055 BI LI T 0.4 mg/dL 12/07/2017 Comp Metabolic Ylc002 AL BUMIN 4.3 g/dL 12/07/2017 Comp Metabolic Xts030 TP RO 6.5 g/dL 12/07/2017 Comp Metabolic Jdg900 GL OB 2.2 g/dL 12/07/2017 Comp Metabolic Ebp782 A/ G Ratio 2.0 Ratio 12/07/2017 Comp Metabolic Uqk897 Os mo 262 mOsmo 12/07/2017 Cbc With [...] 31.0 pg 12/07/2017 Cbc With Differential Ord2 [place]% 10.4 % 12/07/2017 Cbc With Differential Ord2 [...] 0.57 K/ul 12/07/2017 Cbc With Differential Ord2 [place] ABS# 0.5 K/ul 12/07/2017 Cbc With Differential [...] 93.9 fl 06/21/2017 Cbc With Differential Ord2 [place]% 10.1 % 06/21/2017 Cbc With Differential Ord2 [...] 0.65 K/ul 06/21/2017 Cbc With Differential Ord2 [place] ABS# 0.5 K/ul 06/21/2017 Cbc With Differential Ord2 Eos ABS# 0.2 K/ul 06/21/2017 Cbc With Differential Ord2 Baso ABS# 0.0 K/ul 06/21/2017 Comp Metabolic Pdp543 NA 133 mEq/L 06/21/2017 Comp Metabolic Pio060 K 4.0 mEq/L 06/21/2017 Comp Metabolic Bvf198 CL 94 mEq/L 06/21/2017 Comp Metabolic Wdk226 CO2 25.0 mEq/L 06/21/2017 Comp Metabolic Gmq331 AN ION GAP 18 06/21/2017 Comp Metabolic Zmg982 GL UCOSE 88 mg/dL 06/21/2017 Comp Metabolic Tjk574 Cr eat 0.6 mg/dL 06/21/2017 Comp Metabolic Vlg966 eG FR 94 ml/min/1.73m2 06/21 Comp Metabolic Rcu278 BUN 16 mg/dL 06/21/2017 Comp Metabolic Dcn808 B/ C Ratio 25.0 Ratio 06/21/2017 Comp Metabolic Xnw872 CA LCIUM 9.1 mg/dL 06/21/2017 Comp Metabolic Cvs079 AL K PHOS 65 U/L 06/21/2017 Comp Metabolic Ibr659 T(SGOT) 31 U/L 06/21/2017 Comp Metabolic Qha326 AL T(SGPT) 20 U/L 06/21/2017 Comp Metabolic Rpi946 BI LI T 0.5 mg/dL 06/21/2017 Comp Metabolic Itw640 AL BUMIN 4.3 g/dL 06/21/2017 Comp Metabolic Jlu786 TP RO 6.6 g/dL 06/21/2017 Comp Metabolic Vlk088 GL OB 2.3 g/dL 06/21/2017 Comp Metabolic Cxk378 A/ G Ratio 1.8 Ratio 06/21/2017 Comp Metabolic Pvb344 Os mo 267 mOsmo 06/21/2017 Lipid Ord30 CHOL 188 mg/dL 06/21/2017 Lipid Ord30 HDL 77.0 mg/dl 06/21/2017 Lipid Ord30 TRIG 66 mg/dL 06/21/2017 Lipid Ord30 LDL 98 mg/dL 06/21/2017 Lipid Ord30 C/HDL 2.4 Ratio 06/21/2017 Tsh Ord6 hTSH II 1.32 uIU/mL 06/21/2017 Comp Metabolic Mgm242 NA 135 mEq/L 02/09/2017 Comp Metabolic Xyq691 K 4.0 mEq/L 02/09/2017 Comp Metabolic Fnz258 CL 96 mEq/L 02/09/2017 Comp Metabolic Tjy193 CO2 28.0 mEq/L 02/09/2017 Comp Metabolic Nng028 AN ION GAP 15 02/09/2017 Comp Metabolic Kfj303 GL UCOSE 101 mg/dL 02/09/2017 Comp Metabolic Kbw917 Cr eat 0.7 mg/dL 02/09/2017 Comp Metabolic Ypv233 eG FR 83 ml/min/1.73m2 02/09 Comp Metabolic Opv826 BUN 17 mg/dL 02/09/2017 Comp Metabolic Eup809 B/ C Ratio 23.9 Ratio 02/09/2017 Comp Metabolic Ujz784 CA LCIUM 9.3 mg/dL 02/09/2017 Comp Metabolic Ovg546 AL K PHOS 51 U/L 02/09/2017 Comp Metabolic Hxl466 T(SGOT) 33 U/L 02/09/2017 Comp Metabolic Fkb244 AL T(SGPT) 21 U/L 02/09/2017 Comp Metabolic Fks972 BI LI T 0.6 mg/dL 02/09/2017 Comp Metabolic Ser177 AL BUMIN 4.3 g/dL 02/09/2017 Comp Metabolic Vcu127 TP RO 6.9 g/dL 02/09/2017 Comp Metabolic Ipg422 GL OB 2.6 g/dL 02/09/2017 Comp Metabolic Rfb384 A/ G Ratio 1.7 Ratio 02/09/2017 Comp Metabolic Hhz478 Os mo 272 mOsmo 02/09/2017 Lipid Ord30 [...] 94.3 fl 02/09/2017 Cbc With Differential Ord2 [place]% 11.3 % 02/09/2017 Cbc With Differential Ord2 [...] 0.77 K/ul 02/09/2017 Cbc With Differential Ord2 [place] ABS# 0.6 K/ul 02/09/2017 Cbc With Differential [...] 31.5 pg 03/29/2016 Cbc With Differential Ord2 [place]% 9.5 % 03/29/2016 Cbc With Differential Ord2 [...] 0.60 K/ul 03/29/2016 Cbc With Differential Ord2 [place] ABS# 0.4 K/ul 03/29/2016 Cbc With Differential Ord2 Eos ABS# 0.1 K/ul 03/29/2016 Cbc With Differential Ord2 Baso ABS# 0.0 K/ul 03/29/2016 Comp Metabolic Fum848 NA 135 mEq/L 03/29/2016 Comp Metabolic Zta534 K 3.7 mEq/L 03/29/2016 Comp Metabolic Ulb369 CL 96 mEq/L 03/29/2016 Comp Metabolic Vjx510 CO2 30.0 mEq/L 03/29/2016 Comp Metabolic Ukk910 AN ION GAP 13 03/29/2016 Comp Metabolic Vja842 GL UCOSE 102 mg/dL 03/29/2016 Comp Metabolic Sfy798 Cr eat 0.6 mg/dL 03/29/2016 Comp Metabolic Mpo406 eG FR 94 ml/min/1.73m2 03/29 Comp Metabolic Fqx444 BUN 15 mg/dL 03/29/2016 Comp Metabolic Hrb376 B/ C Ratio 23.4 Ratio 03/29/2016 Comp Metabolic Zvn983 CA LCIUM 9.1 mg/dL 03/29/2016 Comp Metabolic Xze067 AL K PHOS 70 U/L 03/29/2016 Comp Metabolic Iqn676 T(SGOT) 35 U/L 03/29/2016 Comp Metabolic Dxz591 AL T(SGPT) 27 U/L 03/29/2016 Comp Metabolic Bkx769 BI LI T 0.5 mg/dL 03/29/2016 Comp Metabolic Kja386 AL BUMIN 4.2 g/dL 03/29/2016 Comp Metabolic Lkp858 TP RO 6.6 g/dL 03/29/2016 Comp Metabolic Adn423 GL OB 2.4 g/dL 03/29/2016 Comp Metabolic Njt157 A/ G Ratio 1.7 Ratio 03/29/2016 Comp Metabolic Kob887 Os mo 271 mOsmo 03/29/2016 Tsh Ord6 hTSH II 1.17 uIU/mL 03/29/2016 B12 Zhi537 B12 838.00 pg/ml 09/02/2015 Tsh Ord6 hTSH [...] Ord2 RDW 15.1 % 09/02/2015 Comp Metabolic Gfp202 NA 135 mEq/L 09/02/2015 Comp Metabolic Npk406 K 3.4 mEq/L 09/02/2015 Comp Metabolic Fql861 CL 95 mEq/L 09/02/2015 Comp Metabolic Xge042 CO2 27.0 mEq/L 09/02/2015 Comp Metabolic Nyo565 AN ION GAP 16 09/02/2015 Comp Metabolic Zip113 GL UCOSE 94 mg/dL 09/02/2015 Comp Metabolic Myf000 Cr eat 0.7 mg/dL 09/02/2015 Comp Metabolic Caa462 eG FR 87 ml/min/1.73m2 09/02 Comp Metabolic Adu037 BUN 18 mg/dL 09/02/2015 Comp Metabolic Odx047 B/ C Ratio 26.1 Ratio 09/02/2015 Comp Metabolic Ipv341 CA LCIUM 9.0 mg/dL 09/02/2015 Comp Metabolic Lta371 AL K PHOS 67 U/L 09/02/2015 Comp Metabolic Hej795 T(SGOT) 30 U/L 09/02/2015 Comp Metabolic Zzr121 AL T(SGPT) 21 U/L 09/02/2015 Comp Metabolic Vne067 BI LI T 0.6 mg/dL 09/02/2015 Comp Metabolic Qka215 AL BUMIN 4.3 g/dL 09/02/2015 Comp Metabolic Lna217 TP RO 6.8 g/dL 09/02/2015 Comp Metabolic Dnz942 GL OB 2.5 g/dL 09/02/2015 Comp Metabolic Tvl281 A/ G Ratio 1.7 Ratio 09/02/2015 Comp Metabolic Qrb472 Os mo 272 mOsmo 09/02/2015 Lipid Ord30 [...] VACC PRSV FREE I NC ANTIG CPT-4: 26923 06/21/2017 ADMIN INFLUENZA VIRU S VAC CPT-4: G0008 06/24/2016 FLU VACC 4 CRISTINE 3 YRS PLUS IM Formatting Model/CDA Sections, Assigned to/Carmen Solis SNOMED CT: 22076439 CPT-4: 10237Nwqejwu 06/24/2016 ADMIN INFLUENZA VIRU S VAC CPT-4: G0008 06/19/2015 FLU VACC 4 CRISTINE 3 YRS PLUS IM Formatting Model/CDA Sections, Assigned to/Carmen Solis SNOMED CT: 10084116 CPT-4: 58113Pdzkzun 06/19/2015 Vital Signs Date Vital 05/14/2018 Blood Pressure 1: 146/68 Code: 8480-6 BMI: 16.0 Code: 64215-8 Heart Rate 1: 70 bpm Height: 5'2" SpO2: 98% Weight: 89 lbs 04/18/2018 Blood Pressure 1: 126/68 Code: 8480-6 BMI: 15.7 Code: 95884-8 Heart Rate 1: 81 bpm Height: 5'2" SpO2: 99% Weight: 87 lbs 01/22/2018 Blood Pressure 1: 136/76 Code: 8480-6 BMI: 15.8 Code: 30929-8 Heart Rate 1: 73 bpm Height: 5'2" SpO2: 99% Weight: 88 lbs 01/01/2018 Blood Pressure 1: 148/76 Code: 8480-6 BMI: 15.8 Code: 42493-5 Heart Rate 1: 74 bpm Height: 5'2" SpO2: 98% Weight: 88 lbs 12/12/2017 Blood Pressure 1: 140/72 Code: 8480-6 BMI: 15.8 Code: 71095-8 Heart Rate 1: 65 bpm Height: 5'2" SpO2: 96% Weight: 88 lbs 09/13/2017 Blood Pressure 1: 138/70 Code: 8480-6 BMI: 15.9 Code: 54007-2 Heart Rate 1: 74 bpm Height: 5'2" SpO2: 99% Weight: 88 lbs 8 oz 06/21/2017 Blood Pressure 1: 122/50 Code: 8480-6 BMI: 15.3 Code: 79889-4 Heart Rate 1: 69 bpm Height: 5'2" SpO2: 99% Weight: 85 lbs 05/25/2017 Blood Pressure 1: 138/72 Code: 8480-6 Heart Rate 1: 77 bpm Height: 5'2" SpO2: 98% Weight: 05/16/2017 Blood Pressure 1: 136/78 Code: 8480-6 Heart Rate 1: 86 bpm Height: 5'2" SpO2: 98% Weight: 02/15/2017 Blood Pressure 1: 144/78 Code: 8480-6 BMI: 15.4 Code: 90161-9 Heart Rate 1: 65 bpm Height: 5'2" SpO2: 98% Weight: 85 lbs 8 oz 11/22/2016 Blood Pressure 1: 140/58 Code: 8480-6 BMI: 14.8 Code: 49745-8 Heart Rate 1: 79 bpm Height: 5'2" SpO2: 99% Weight: 82 lbs 09/15/2016 BMI: 16.0 Code: 26751-7 Height: 5'2" Weight: 89 lbs 09/07/2016 Blood Pressure 1: 130/62 Code: 8480-6 BMI: 16.2 Code: 90570-6 Heart Rate 1: 71 bpm Height: 5'2" SpO2: 98% Weight: 90 lbs 07/06/2016 Blood Pressure 1: 144/76 Code: 8480-6 BMI: 15.8 Code: 27140-2 Heart Rate 1: 78 bpm Height: 5'2" SpO2: 99% Weight: 88 lbs 04/06/2016 Blood Pressure 1: 148/58 Code: 8480-6 BMI: 16.2 Code: 83563-1 Heart Rate 1: 64 bpm Height: 5'2" SpO2: 97% Weight: 90 lbs 01/06/2016 Blood Pressure 1: 146/72 Code: 8480-6 BMI: 16.6 Code: 50761-5 Heart Rate 1: 62 bpm Height: 5'2" SpO2: 99% Weight: 92 lbs 09/02/2015 Blood Pressure 1: 132/70 Code: 8480-6 BMI: 16.6 Code: 99497-8 Heart Rate 1: 77 bpm Height: 5'2" SpO2: 98% Weight: 92 lbs 06/15/2015 Blood Pressure 1: 144/60 Code: 8480-6 BMI: 16.7 Code: 66684-5 Heart Rate 1: 66 bpm Height: 5'2" SpO2: 97% Weight: 93 lbs 03/04/2015 Blood Pressure 1: 120/80 Code: 8480-6 BMI: 15.8 Code: 93135-8 Heart Rate 1: 74 bpm Height: 5'2" [...] shoulder 01/22/2018 None shoulder pain Quality [facility] [place] 01/22/2018 None shoulder pain Quality co nstant [...] nstant 01/01/2018 None shoulder pain Quality [facility] [place] 01/01/2018 None shoulder pain Quality wo rsening [...] Episodes unchanged 01/06/2016 Non e hypertension Quality [facility] 01/06/2016 None hypertension Quality [facility] [...] Encounter Performer Loca tion Codes Date () 09214 EST. P ATIENT, LEVEL III Diagnosis: Rash and other nonspecific skin eruption[ICD10: R21] Rosalinda Bradshaw MD, [facility] CPT-4: 78588 05/14/2018 ([id number]) 06737 EST. P ATIENT, LEVEL IV Diagnosis: Essential (primary) hypertension[ICD10: I10] Diagnosis: Underweight[ICD10: R63.6] Diagnosis: Mixed hyperlipidemia[ICD10: E78.2] Anum Bradshaw MD, [facility] CPT- 4: 24184 04/18/2018 ([id number]) 45677 EST. P ATIENT, LEVEL III Diagnosis: Bicipital tendinitis, left shoulder[ICD10: M75.22] Anum Bradshaw MD, C CPT-4: 64454 01/22/2018 ([id number]) 71075 EST. P ATIENT, LEVEL III Diagnosis: Pain in right shoulder[ICD10: M25.511] Diagnosis: Bicipital tendinitis, right shoulder[ICD10: M75.21] Anum Bradshaw MD, C CPT-4: 76889 01/01/2018 ([id number]) 59329 EST. P ATIENT, LEVEL IV Diagnosis: Essential (primary) hypertension[ICD10: I10] Diagnosis: Underweight[ICD10: R63.6] Diagnosis: Mixed hyperlipidemia[ICD10: E78.2] Diagnosis: Actinic keratosis[ICD10: L57.0] Anum Bradshaw MD, [facility] CPT-4: 19730 12/12/2017 ([id number]) 48718 EST. P ATIENT, LEVEL III Diagnosis: Essential (primary) hypertension[ICD10: I10] Diagnosis: Fracture of unspecified part of neck of left femur, subsequent encounter for closed fracture with routine healing[ICD10: S72.002D] Diagnosis: Underweight[ICD10: R63.6] Anum Bradshaw MD, [facility] CPT-4: 03518 09/13/2017 ([id number]) 54852 EST. P ATIENT, LEVEL IV Diagnosis: Mixed hyperlipidemia[ICD10: E78.2] Diagnosis: Essential (primary) hypertension[ICD10: I10] Diagnosis: Vitamin B12 deficiency anemia due to intrinsic factor deficiency[ICD10: D51.0] Diagnosis: Gastro-esophageal reflux disease with esophagitis[ICD10: K21.0] Diagnosis: Age-related osteoporosis without current pathological fracture[ICD10: M81.0] Diagnosis: Encounter for immunization[ICD10: Z23] Anum Bradshaw MD, [facility] CPT-4: 57436 06/21/2017 ([id number]) 11757 EST. P ATIENT, LEVEL III Diagnosis: Fracture of unspecified part of neck of left femur, subsequent encounter for closed fracture with routine healing[ICD10: S72.002D] Diagnosis: Underweight[ICD10: R63.6] Diagnosis: Gastro-esophageal reflux disease with esophagitis[ICD10: K21.0] Anum Bradshaw MD, [facility] CPT-4: 16430 05/25/2017 ([id number]) 88332 EST. P ATIENT, LEVEL IV Diagnosis: Essential (primary) hypertension[ICD10: I10] Diagnosis: Fracture of unspecified part of neck of left femur, subsequent encounter for closed fracture with routine healing[ICD10: S72.002D] Diagnosis: Generalized anxiety disorder[ICD10: F41.1] Anum Bradshaw MD, [facility] CPT-4: 58291 05/16/2017 ([id number]) 68384 EST. P ATIENT, LEVEL IV Diagnosis: Essential (primary) hypertension[ICD10: I10] Diagnosis: Mixed hyperlipidemia[ICD10: E78.2] Diagnosis: Generalized anxiety disorder[ICD10: F41.1] Anum Bradshaw MD, [facility] CPT-4: 19924 02/15/2017 ([id number]) 58760 EST. P ATIENT, LEVEL IV Diagnosis: Mixed hyperlipidemia[ICD10: E78.2] Diagnosis: Generalized anxiety disorder[ICD10: F41.1] Diagnosis: Essential (primary) hypertension[ICD10: I10] Diagnosis: Gastro-esophageal reflux disease with esophagitis[ICD10: K21.0] Anum Bradshaw MD, [facility] CPT-4: 38023 11/22/2016 [id number] EST. PATIENT, LEVEL III Diagnosis: Inflamed seborrheic keratosis[ICD10: L82.0] Kala Bradshaw MD, [facility] CPT-4: 91437 09/15/2016 ([id number]) 67005 EST. P ATIENT, LEVEL IV Diagnosis: Essential (primary) hypertension[ICD10: I10] Diagnosis: Mixed hyperlipidemia[ICD10: E78.2] Diagnosis: Generalized anxiety disorder[ICD10: F41.1] Anum Bradshaw MD [facility] CPT-4: 36376 09/07/2016 ([id number]) 70475 EST. P ATIENT, LEVEL IV Diagnosis: Essential (primary) hypertension[ICD10: I10] Diagnosis: Frequency of micturition[ICD10: R35.0] Diagnosis: Age-related osteoporosis without current pathological fracture[ICD10: M81.0] Anum Bradshaw MD, [facility] CPT-4: 15208 07/06/2016 ([id number]) [id number] EST. P ATIENT, LEVEL IV Diagnosis: Essential (primary) hypertension[ICD10: I10] Diagnosis: Mixed hyperlipidemia[ICD10: E78.2] Diagnosis: Gastro-esophageal reflux disease with esophagitis[ICD10: K21.0] Anum Bradshaw MD, [facility] CPT-4: 76981 04/06/2016 [id number] EST. PATIENT, LEVEL IV Diagnosis: Essential (primary) hypertension[ICD10: I10] Diagnosis: Gastro-esophageal reflux disease with esophagitis[ICD10: K21.0] Kala Bradshaw MD, [facility] CPT-4: 20944 01/06/2016 ([id number]) [id number] EST. P ATIENT, LEVEL IV Diagnosis: Essential (primary) hypertension[ICD10: I10] Diagnosis: Gastro-esophageal reflux disease with esophagitis[ICD10: K21.0] Diagnosis: Other dietary vitamin B12 deficiency anemia[ICD10: D51.3] Diagnosis: Vitamin B12 deficiency anemia due to intrinsic factor deficiency[ICD10: D51.0] Diagnosis: Occlusion and stenosis of unspecified carotid artery[ICD10: I65.29] [facility] CPT-4: 66272 09/02/2015 ([id number]) [id number] EST. P ATIENT, LEVEL III Diagnosis: Carpal tunnel syndrome[ICD9: 354.0] Diagnosis: Inflamed seborrheic keratosis[ICD9: 702.11] Rosalinda Bradshaw MD, [facility] CPT-4: 52026 06/15/2015 ([id number]) OFFICE VISI T, NEW - LEVEL 4 Diagnosis: ESSENTIAL HYPERTENSION[ICD9: 401.9] Diagnosis: ESOPHAGEAL REFLUX[ICD9: 530.81] Diagnosis: HYPERLIPIDEMIA[ICD9: 272.4] Anum Bradshaw MD, [facility] CPT-4: 30850 03/04/2015 Plan of Care Planned Activity Notes [...] to medications. 04/18/2018 Appointment: Anum Bradshaw WPtel: [address] [place], [place] [id number] (15 min) Moderate 04/18/2018 Patient Education: Patient Medication Summary Completed 04/18/2018 Appointment: Injection 03/08/2018 Visit Plan: Left shoulder pain - bi cep tendonitis - continue with physical therapy at [facility]. Use voltaren gel on left shoulder now - continue with therapy on right shoulder. 01/22/2018 Appointment: Anum Bradshaw WPtel: [phone] [facility] (15 min) Moderate 01/22/2018 Patient Education: Patient [...] tendonitis - referral to physical therapy at [facility] 01/01/2018 Appointment: Anum Bradshaw WPtel: [phone] [facility] (15 min) Moderate 01/01/2018 Patient Education: Patient [...] 2 weeks 12/12/2017 Appointment: Anum Bradshaw WPtel: [phone] [facility] (15 min) Moderate 12/12/2017 Patient Education: Patient [...] healing. 09/13/2017 [phone] ([facility]) Moderate 09/13/2017 Patient Education: [...] improving. 06/21/2017 [facility]ment[phone] [facility] ([facility] min) Moderate 06/21/2017 Patient Education: Patient Medication Summary Completed 06/21/2017 Visit Plan: Esophageal Reflux - the patient has been taking medication as directed and her symptoms are improved. Hip fracture - continue with supportive care, nonweight bearing. Underweight - increase protein intake, higher calorie diet, use wheelchair to decrease excessive caloric expenditure. 05/25/2017 App[facility]ment: [phone] [facility] ([facility] min) Moderate 05/25/2017 Patient Education: [...] current medications. 05/16/2017 App[facility]ment: [phone] [facility] ([facility] min) Moderate 05/16/2017 Patient Education: [...] to medications. 02/15/2017 [facility]ment: [facility] [phone] [facility] ([facility] min) Moderate 02/15/2017 Patient Education: Patient Medication Summary Completed 02/15/2017 Patient Education: Hypertension Completed 02/15/2017 Care Plan: Referral Order SNOMED-CT : [id number] Pending 02/15/2017 Appointment: Anum Bradshaw WPtel: [facility] (15 min) Moderate 01/11/2017 Visit Plan: [...] current treatment 11/22/2016 Appointment: Anum Bradshaw WPtel: [facility] (15 min) Moderate 11/22/2016 Patient Education: Patient Medication Summary Completed 11/22/2016 Patient Education: Hypertension Completed 11/22/2016 Appointment: Rosalinda Bermudez WPtel: [phone] (30 min) Complex 09/16/2016 Visit Plan: Lesion [...] monitor symptoms. 09/07/2016 Appointment: Anum Bradshaw WPtel: [facility] (15 min) Moderate 09/07/2016 Patient Education: [...] ua negative 07/06/2016 Appointment: Anum Bradshaw WPtel: [facility] (15 min) Moderate 07/06/2016 Patient Education: [...] improving. 04/06/2016 Appointment: [phone] [facility] ([facility] min) Moderate 04/06/2016 Patient Education: [...] 09/02/2015 Care Plan: Referral Order SNOMED-CT : [id number] Ordered 09/02/2015 Appointment: Injection 06/19/2015 Patient Education: [...] improving. 03/04/2015 Appointment: [facility] Bradshaw [facility]el[facility] [phone] [facility] [place] [facility] New Patient 03/04/2015 Patient [...] with physical therapy at [facility]. Use voltaren gel on left shoulder [...]
--- OUTSIDE RECORDS SUMMARY | 2019-12-29 11:35 | XMS REPORT | CCD ---
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 Name Role Phone PP Unavailable CCM Unavailable Summary Purpose Interface Exchange Insurance Providers Payer name Policy type / Coverage type Covered green party ID Effective Begin Date Effective End Date WPS Medicare Part B Medicare Part B [id number] Unknown Unknown CIGNA Medicare Part B [id number] Unknown Unknown Family history Father Diagnosis Age At Onset Coronary Artery Disease Unknown Mother Diagnosis Age At Onset Anemia Unknown Skin cancer Unknown Hypertension Unknown Cancer Unknown Breast cancer Unknown Social History Social History Element Codes Description Effective Dates Marital status Unknown M ciarra Omalley 03/04/2015 Number of children Unknown 3 03/04/[address]: 430539239 Never smoker 03/04/[address]: 958152794 Never drinks alcohol 03/04/2015 Allergies, Adverse Reactions, Alerts Allergies, Adverse Reactions, Alerts data not found Past Medical History Illness Codes Condition Status Onset Date Resolved Date Essential (primary) hypertension ICD-9: 401.9 ICD-10: I10 Active 03/03/2015 Unknown Fracture of unspecif ied part of neck of left femur, subsequent encounter for closed fracture with routine healing ICD-9: V54.13 ICD-10: S72.002D Active 05/16/2017 Unknown Underweight ICD-9: 783.22 ICD-10: R63.6 Active 05/25/2017 Unknown Age-related osteopor osis without current pathological [...] hypertension ICD-9: 401.9 ICD-10: I10 03/03/2015 Active Fracture of unspecif ied part of neck of left femur, subsequent encounter for closed fracture with routine healing ICD-9: V54.13 ICD-10: S72.002D 05/16/2017 Active Underweight ICD-9: 783.22 ICD-10: R63.6 05/25/2017 Active Age-related osteopor osis without current pathological [...] Date Stop Date Sta tus Fill Instructions mupirocin 2 % topica l ointment RxNorm: 787260 APPLY TO AFFECTED ARE A(S) ONCE DAILY 10/16/2017 11/28/2017 Ac tive diltiazem 30 mg tablet RxNorm: 355096 1 Tablet(s) PO QID 10/09/2017 10/03/2018 Active triamterene 37.5 mg- hydrochlorothiazide 25 mg tablet RxNorm: 562082 1 Tablet(s) PO daily 07/28/2017 01/23/2018 Active fluticasone 50 mcg/a ctuation nasal spray,suspension RxNorm: 8981403 2 Otter NASAL daily 07/20/2017 01/15/2018 Active diltiazem 30 mg tablet RxNorm: 213125 1 Tablet(s) PO QID TAKE 1 TABLET BY MOUT H FOUR TIMES DAILY 07/13/2017 10/08/2017 Inactive simvastatin 20 mg ta blet RxNorm: 722278 TAKE 1 TABLET BY MOUT H EVERY DAY 06/08/2017 12/04/2017 Ac tive Nexium 40 mg capsule ,delayed release RxNorm: 317612 1 Capsule(s) PO daily 05/25/2017 No Stop Date Active esomeprazole magnesi um 40 mg capsule,delayed release RxNorm: 746998 Capsule(s) TAKE 1 CAPSULE BY MOUTH DAILY 05/17/2017 02/10/2018 Active diltiazem 30 mg tablet RxNorm: 522881 Tablet(s) TAKE 1 TABLET BY MOUTH FOUR TI MES DAILY 05/16/2017 07/12/2017 Inactive diltiazem 30 mg tablet RxNorm: 748265 TAKE 1 TABLET BY MOUTH THREE TIMES DAILY 02/09/2017 05/15/2017 In active Zofran ODT 4 mg disi ntegrating tablet RxNorm: 988277 1 Tablet(s) PO Q6 as needed 11/16/2016 11/22/2016 In active Protonix 40 mg table t,delayed release RxNorm: 320614 1 Tablet(s) PO daily 11/16/2016 12/15/2016 In active Protonix 40 mg table t,delayed release RxNorm: 273628 1 Tablet(s) PO daily 11/16/2016 11/15/2016 In active Zofran ODT 4 mg disi ntegrating tablet RxNorm: 208667 1 Tablet(s) PO Q6 as needed 11/16/2016 11/15/2016 In active escitalopram 5 mg ta blet RxNorm: 065055 1 Tablet(s) PO QPM 10/28/2016 10/22/2017 Active escitalopram 5 mg ta blet RxNorm: 690505 1 Tablet(s) PO QPM 10/05/2016 10/27/2016 Inactive mupirocin 2 % topica l ointment RxNorm: 574599 1 Application TOP yao ly APPLY TO AFFECTED AREA(S) TOPICALLY DAILY 09/07/2016 11/05/2016 Inactive Efudex 5 % topical c ream RxNorm: 248817 1 TOP BID 09/07/2016 09/16/2016 Inactive escitalopram 5 mg ta blet RxNorm: 697637 1 Tablet(s) PO QPM 09/07/2016 10/04/2016 Inactive sucralfate 100 mg/mL oral suspension RxNorm: 586750 10 Milliliter(s) per 1 gram PO QID 08/03/2016 07/28/2017 Inactive refill 3 month supply- 1gm/10ml clorazepate dipotass ium 3.75 mg tablet RxNorm: 233700 1 Tablet(s) PO QHS as needed insomnia 07/06/2016 06/30/2017 Inactive triamterene 37.5 mg- hydrochlorothiazide 25 mg tablet RxNorm: 190036 1 Tablet(s) PO daily 06/29/2016 06/23/2017 Inactive Nexium 40 mg capsule ,delayed release RxNorm: 460197 1 Capsule(s) PO daily 06/29/2016 07/05/2016 In active Bactroban 2 % topica l ointment RxNorm: 661405 APPLY TO AFFECTED ARE A(S) TOPICALLY DAILY 06/22/2016 09/06/2016 Inactive esomeprazole magnesi um 40 mg capsule,delayed release RxNorm: 933531 TAKE 1 CAPSULE BY MOUTH DAILY 06/13/2016 03/09/2017 Inactive simvastatin 20 mg ta blet RxNorm: 586558 1 Tablet(s) PO daily 05/16/2016 06/07/2017 Inactive simvastatin 20 mg ta blet RxNorm: 501221 1 Tablet(s) PO daily 05/12/2016 05/15/2016 Inactive famotidine 40 mg tablet RxNorm: 570354 TAKE 1 TABLET BY MOUTH DAILY 05/05/2016 01/29/2017 Inactive Bactroban 2 % topica l ointment RxNorm: 090021 APPLY TO AFFECTED ARE A(S) TOPICALLY DAILY 04/25/2016 05/01/2016 Inactive fluticasone 50 mcg/a ctuation nasal spray,suspension RxNorm: 4828070 2 Otter NASAL daily 03/23/2016 09/18/2016 Inactive fluticasone 50 mcg/a ctuation nasal spray,suspension RxNorm: 079653 2 Otter NASAL daily 03/07/2016 03/22/2016 Inactive Bactroban 2 % topica l ointment RxNorm: 757346 APPLY TO AFFECTED ARE A(S) TOPICALLY DAILY 02/29/2016 03/06/2016 Inactive diltiazem 30 mg tablet RxNorm: 984011 1 Tablet(s) PO TID 02/18/2016 02/08/2017 Inactive Bactroban 2 % topica l ointment RxNorm: 679891 1 Application TOP 01/08/2016 02/28/2016 Inactive clorazepate dipotass ium 3.75 mg tablet RxNorm: 450916 1 Tablet(s) PO daily 12/14/2015 06/10/2016 In active fluticasone 50 mcg/a ctuation nasal spray,suspension RxNorm: 410553 2 Otter NASAL daily 12/14/2015 02/11/2016 Inactive diltiazem 30 mg tablet RxNorm: 389971 1 Tablet(s) PO TID 09/03/2015 02/17/2016 Inactive simvastatin 20 mg ta blet RxNorm: 566945 1 Tablet(s) PO daily 08/24/2015 05/11/2016 Inactive triamterene 37.5 mg- hydrochlorothiazide 25 mg tablet RxNorm: 875975 1 Tablet(s) PO daily 07/09/2015 06/28/2016 Inactive clorazepate dipotass ium 15 mg tablet RxNorm: 616984 1 Tablet(s) PO daily 07/06/2015 07/06/2015 In active clorazepate dipotass ium 3.75 mg tablet RxNorm: 775020 1 Tablet(s) PO daily 07/06/2015 12/13/2015 In active esomeprazole magnesi um 40 mg capsule,delayed release RxNorm: 831849 1 Capsule(s) PO daily 06/26/2015 06/12/2016 Inactive famotidine 40 mg tablet RxNorm: 849199 1 Tablet(s) PO daily 06/26/2015 05/04/2016 Inactive diltiazem 30 mg tablet RxNorm: 862869 1 Tablet(s) PO TID 06/09/2015 09/02/2015 Inactive sucralfate 100 mg/mL oral suspension RxNorm: 880223 10 Milliliter(s) per 1 gram PO QID 04/28/2015 04/21/2016 Inactive refill 3 month supply- 1gm/10ml member I d [id number] sucralfate 100 mg/mL oral suspension RxNorm: 307838 10 Milliliter(s) per 1 gram PO QID 04/27/2015 04/27/2015 Inactive refill 3 month supply diltiazem 30 mg tablet RxNorm: 106184 1 Tablet(s) PO TID 02/18/2015 02/17/2015 Inactive diltiazem 30 mg tablet RxNorm: 512316 1 Tablet(s) PO TID 02/18/2015 05/18/2015 Inactive Vitamin D3 2,000 uni t tablet RxNorm: 954475 Tablet(s) PO daily No Start Date Active PreserVision Lutein oral RxNorm: [address] art Date Active Calcium 500 + D oral RxNorm: 381682 oral No Start Date Active Zyrtec 10 mg tablet RxNorm: 8551176 1 Tablet(s) PO daily No Start Date Active melatonin 5 mg tablet RxNorm: 618923 Tablet(s) PO QHS as needed No Start Date Active vitamin B6-vitamin E -magnesium oral RxNorm: 764297 oral No S tart Date Active famotidine 40 mg tablet RxNorm: 112739 1 Tablet(s) PO daily No Start Date 06/25/2015 Inactive clorazepate dipotass ium 3.75 mg tablet RxNorm: 531228 1 Tablet(s) PO daily No Start Date 07/05/2015 Inactive Bactroban 2 % topica l ointment RxNorm: 109878 1 Application TOP No Start Date 01/07/2016 Inactive Carafate 1 gram tablet RxNorm: 517717 1 Tablet(s) PO QID No Start Date 04/26/2015 Inactive esomeprazole magnesi um 40 mg capsule,delayed release RxNorm: 935216 Capsule(s) PO daily No Start Date 06/25/2015 Inactive fluticasone 50 mcg/a ctuation nasal spray,suspension RxNorm: 244792 2 Otter NASAL daily No Start Date 12/13/2015 Inactive Nexium 40 mg capsule ,delayed release RxNorm: 717189 1 Capsule(s) PO daily No Start Date 06/28/2016 Inactive triamterene 37.5 mg- hydrochlorothiazide 25 mg tablet RxNorm: 132571 1 Tablet(s) PO daily No Start Date 07/08/2015 Inactive simvastatin 20 mg ta blet RxNorm: 300991 1 Tablet(s) PO daily No Start Date 08/23/2015 Inactive Medication Administered No Medication Administered data Immunizations Vaccine Codes Date Status Influenza CVX: 141 06/21 completed Influenza CVX: 141 06/24 completed Influenza CVX: 141 06/19 completed Influenza CVX: 141 07/26 completed Pneumococcal CVX: 33 09/2011 completed Assessments Condition Codes Effectiv e Dates Underweight ICD-10: R63.6 ICD-9: 783.22 09/13/2017 Fracture of unspecified part of neck of left femur, subsequent encounter for closed fracture with routine healing ICD-10: S72.002D ICD-9: V54.13 09/13/2017 Essential (primary) hypertension ICD -10: I10 ICD-9: 401.9 09/13/2017 Encounter for immunization ICD-10: Z 23 ICD-9: V04.81 06/21/2017 Age-related osteoporosis without current pathological fracture ICD-10: M81.0 ICD-9: 733.00 06/21/2017 Mixed hyperlipidemia ICD-10: E78.2 ICD-9: 272.4 06/21/2017 Gastro-esophageal reflux disease with esophagitis ICD-10: K21.0 ICD-9: 530.81 06/21/2017 Vitamin B12 deficiency anemia due to int rinsic 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 ICD-9: 281.0 06/21/2017 Generalized anxiety disorder ICD-10: F41.1 ICD-9: 300.02 05/16/2017 Inflamed seborrheic keratosis ICD-10 : L82.0 ICD-9: 702.11 09/15/2016 Frequency of micturition ICD-10: R35 .0 ICD-9: 788.41 07/06/2016 Other dietary vitamin B12 deficiency anemia ICD-10: D51.3 ICD-9: 281.1 09/02/2015 Occlusion and stenosis of unspecified carotid artery ICD-10: I65.29 ICD-9: 433.10 09/02/2015 VACCIN FOR INFLUENZA ICD-9: V04.81 06/19/2015 Carpal tunnel syndrome ICD-9: 354.0 06/15/2015 Inflamed seborrheic keratosis ICD-9: 702.1 1 06/15/2015 ESSENTIAL HYPERTENSION ICD-9: 401.9 03/04/2015 HYPERLIPIDEMIA ICD-9: 272.4 03/04/2015 ESOPHAGEAL REFLUX ICD-9: 530.81 03/04/2015 Other screening mammogram ICD-9: V76.12 02/10/2015 Reason For Visit Reason For Visit Effective Dates Notes hypertension 09/13/2017 dyspepsia 06/21/2017 Hospital Follow Up [...] Item Item Code Result Date Comp Metabolic Utf397 NA 133 mEq/L 06/21/2017 Comp Metabolic Wvd311 K 4.0 mEq/L 06/21/2017 Comp Metabolic Rck304 CL 94 mEq/L 06/21/2017 Comp Metabolic Krl357 CO2 25.0 mEq/L 06/21/2017 Comp Metabolic Wly553 AN ION GAP 18 06/21/2017 Comp Metabolic Efz533 GL UCOSE 88 mg/dL 06/21/2017 Comp Metabolic Jxy548 Cr eat 0.6 mg/dL 06/21/2017 Comp Metabolic Wme286 eG FR 94 ml/min/1.73m2 06/21 Comp Metabolic Fkj467 BUN 16 mg/dL 06/21/2017 Comp Metabolic Ixi562 B/ C Ratio 25.0 Ratio 06/21/2017 Comp Metabolic Txp491 CA LCIUM 9.1 mg/dL 06/21/2017 Comp Metabolic Mdq530 AL K PHOS 65 U/L 06/21/2017 Comp Metabolic Igz187 T(SGOT) 31 U/L 06/21/2017 Comp Metabolic Npa560 AL T(SGPT) 20 U/L 06/21/2017 Comp Metabolic Tds324 BI LI T 0.5 mg/dL 06/21/2017 Comp Metabolic Ftf021 AL BUMIN 4.3 g/dL 06/21/2017 Comp Metabolic Sul060 TP RO 6.6 g/dL 06/21/2017 Comp Metabolic Osb190 GL OB 2.3 g/dL 06/21/2017 Comp Metabolic Zam055 A/ G Ratio 1.8 Ratio 06/21/2017 Comp Metabolic Qzr169 Os mo 267 mOsmo 06/21/2017 Tsh Ord6 hTSH II 1.32 uIU/mL 06/21/2017 Cbc With Differential Ord2 WBC 4.46 K/ul 06/21/2017 Cbc With Differential Ord2 RBC 3.78 M/ul 06/21/2017 Cbc With Differential Ord2 HGB 12.2 g/dl 06/21/2017 Cbc With Differential Ord2 HCT 35.5 % 06/21/2017 Cbc With Differential Ord2 Neut% 71.3 % 06/21/2017 Cbc With Differential Ord2 Lymph% 14.6 % 06/21/2017 Cbc With Differential Ord2 MCV 93.9 fl 06/21/2017 Cbc With Differential Ord2 [place]% 10.1 % 06/21/2017 Cbc With Differential Ord2 MCH 32.3 pg 06/21/2017 Cbc With Differential Ord2 MCHC 34.4 pg 06/21/2017 Cbc With Differential Ord2 Eos% 3.8 % 06/21/2017 Cbc With Differential Ord2 PLT 317 K/ul 06/21/2017 Cbc With Differential Ord2 Baso% 0.2 % 06/21/2017 Cbc With Differential Ord2 RDW 14.4 % 06/21/2017 Cbc With Differential Ord2 Neut ABS# 3.18 K/ul 06/21/2017 Cbc With Differential Ord2 Lymph ABS# 0.65 K/ul 06/21/2017 Cbc With Differential Ord2 [place] ABS# 0.5 K/ul 06/21/2017 Cbc With Differential Ord2 Eos ABS# 0.2 K/ul 06/21/2017 Cbc With Differential Ord2 Baso ABS# 0.0 K/ul 06/21/2017 Lipid Ord30 CHOL 188 mg/dL 06/21/2017 Lipid Ord30 HDL 77.0 mg/dl 06/21/2017 Lipid Ord30 TRIG 66 mg/dL 06/21/2017 Lipid Ord30 LDL 98 mg/dL 06/21/2017 Lipid Ord30 C/HDL 2.4 Ratio 06/21/2017 Comp Metabolic Mii041 NA 135 mEq/L 02/09/2017 Comp Metabolic Zge913 K 4.0 mEq/L 02/09/2017 Comp Metabolic Prk359 CL 96 mEq/L 02/09/2017 Comp Metabolic Gsc023 CO2 28.0 mEq/L 02/09/2017 Comp Metabolic Jti688 AN ION GAP 15 02/09/2017 Comp Metabolic Ecp400 GL UCOSE 101 mg/dL 02/09/2017 Comp Metabolic Pay028 Cr eat 0.7 mg/dL 02/09/2017 Comp Metabolic Kcm237 eG FR 83 ml/min/1.73m2 02/09 Comp Metabolic Hni612 BUN 17 mg/dL 02/09/2017 Comp Metabolic Gjb099 B/ C Ratio 23.9 Ratio 02/09/2017 Comp Metabolic Fvz859 CA LCIUM 9.3 mg/dL 02/09/2017 Comp Metabolic Ylq224 AL K PHOS 51 U/L 02/09/2017 Comp Metabolic Sfy267 T(SGOT) 33 U/L 02/09/2017 Comp Metabolic Ddm608 AL T(SGPT) 21 U/L 02/09/2017 Comp Metabolic Kma386 BI LI T 0.6 mg/dL 02/09/2017 Comp Metabolic Mpp161 AL BUMIN 4.3 g/dL 02/09/2017 Comp Metabolic Msc223 TP RO 6.9 g/dL 02/09/2017 Comp Metabolic Cxt706 GL OB 2.6 g/dL 02/09/2017 Comp Metabolic Umw404 A/ G Ratio 1.7 Ratio 02/09/2017 Comp Metabolic Acc560 Os mo 272 mOsmo 02/09/2017 Cbc With Differential Ord2 WBC 5.13 K/ul 02/09/2017 Cbc With Differential Ord2 RBC 4.06 M/ul 02/09/2017 Cbc With Differential Ord2 HGB 12.9 g/dl 02/09/2017 Cbc With Differential Ord2 HCT 38.3 % 02/09/2017 Cbc With Differential Ord2 Neut% 70.8 % 02/09/2017 Cbc With Differential Ord2 Lymph% 15.0 % 02/09/2017 Cbc With Differential Ord2 MCV 94.3 fl 02/09/2017 Cbc With Differential Ord2 MCH 31.8 pg 02/09/2017 Cbc With Differential Ord2 [place]% 11.3 % 02/09/2017 Cbc With Differential Ord2 Eos% 2.5 % 02/09/2017 Cbc With Differential Ord2 MCHC 33.7 pg 02/09/2017 Cbc With Differential Ord2 Baso% 0.4 % 02/09/2017 Cbc With Differential Ord2 PLT 279 K/ul 02/09/2017 Cbc With Differential Ord2 Neut ABS# 3.63 K/ul 02/09/2017 Cbc With Differential Ord2 RDW 14.0 % 02/09/2017 Cbc With Differential Ord2 Lymph ABS# 0.77 K/ul 02/09/2017 Cbc With Differential Ord2 [place] ABS# 0.6 K/ul 02/09/2017 Cbc With Differential Ord2 Eos ABS# 0.1 K/ul 02/09/2017 Cbc With Differential Ord2 Baso ABS# 0.0 K/ul 02/09/2017 Tsh Ord6 hTSH II 1.51 uIU/mL 02/09/2017 Lipid Ord30 CHOL 218 mg/dL 02/09/2017 Lipid Ord30 HDL 74.0 mg/dl 02/09/2017 Lipid Ord30 TRIG 94 mg/dL 02/09/2017 Lipid Ord30 LDL 125 mg/dL 02/09/2017 Lipid Ord30 C/HDL 2.9 Ratio 02/09/2017 Lipid Ord30 CHOL 190 mg/dL 03/29/2016 Lipid Ord30 HDL 70.0 mg/dl 03/29/2016 Lipid Ord30 TRIG 90 mg/dL 03/29/2016 Lipid Ord30 LDL 102 mg/dL 03/29/2016 Lipid Ord30 C/HDL 2.7 Ratio 03/29/2016 Tsh Ord6 hTSH II 1.17 uIU/mL 03/29/2016 Comp Metabolic Dab980 NA 135 mEq/L 03/29/2016 Comp Metabolic Bjm150 K 3.7 mEq/L 03/29/2016 Comp Metabolic Oul641 CL 96 mEq/L 03/29/2016 Comp Metabolic Ixn241 CO2 30.0 mEq/L 03/29/2016 Comp Metabolic Kjz971 AN ION GAP 13 03/29/2016 Comp Metabolic Wfd892 GL UCOSE 102 mg/dL 03/29/2016 Comp Metabolic Vkt397 Cr eat 0.6 mg/dL 03/29/2016 Comp Metabolic Kvk079 eG FR 94 ml/min/1.73m2 03/29 Comp Metabolic Cya458 BUN 15 mg/dL 03/29/2016 Comp Metabolic Lne340 B/ C Ratio 23.4 Ratio 03/29/2016 Comp Metabolic Nam628 CA LCIUM 9.1 mg/dL 03/29/2016 Comp Metabolic Nua454 AL K PHOS 70 U/L 03/29/2016 Comp Metabolic Wmh488 T(SGOT) 35 U/L 03/29/2016 Comp Metabolic Cxw212 AL T(SGPT) 27 U/L 03/29/2016 Comp Metabolic Wbz480 BI LI T 0.5 mg/dL 03/29/2016 Comp Metabolic Gbt935 AL BUMIN 4.2 g/dL 03/29/2016 Comp Metabolic Vpc221 TP RO 6.6 g/dL 03/29/2016 Comp Metabolic Xay941 GL OB 2.4 g/dL 03/29/2016 Comp Metabolic Xyz883 A/ G Ratio 1.7 Ratio 03/29/2016 Comp Metabolic Mmr330 Os mo 271 mOsmo 03/29/2016 Cbc With Differential Ord2 WBC 4.52 K/ul 03/29/2016 Cbc With Differential Ord2 RBC 3.72 M/ul 03/29/2016 Cbc With Differential Ord2 HGB 11.7 g/dl 03/29/2016 Cbc With Differential Ord2 HCT 34.5 % 03/29/2016 Cbc With Differential Ord2 Neut% 73.8 % 03/29/2016 Cbc With Differential Ord2 Lymph% 13.3 % 03/29/2016 Cbc With Differential Ord2 MCV 92.7 fl 03/29/2016 Cbc With Differential Ord2 [place]% 9.5 % 03/29/2016 Cbc With Differential Ord2 MCH 31.5 pg 03/29/2016 Cbc With Differential Ord2 MCHC 33.9 pg 03/29/2016 Cbc With Differential Ord2 Eos% 2.7 % 03/29/2016 Cbc With Differential Ord2 PLT 313 K/ul 03/29/2016 Cbc With Differential Ord2 Baso% 0.7 % 03/29/2016 Cbc With Differential Ord2 RDW 14.1 % 03/29/2016 Cbc With Differential Ord2 Neut ABS# 3.34 K/ul 03/29/2016 Cbc With Differential Ord2 Lymph ABS# 0.60 K/ul 03/29/2016 Cbc With Differential Ord2 [place] ABS# 0.4 K/ul 03/29/2016 Cbc With Differential Ord2 Eos ABS# 0.1 K/ul 03/29/2016 Cbc With Differential Ord2 Baso ABS# 0.0 K/ul 03/29/2016 Lipid Ord30 CHOL 181 mg/dL 09/02/2015 Lipid Ord30 HDL 66.0 mg/dl 09/02/2015 Lipid Ord30 TRIG 77 mg/dL 09/02/2015 Lipid Ord30 LDL 100 mg/dL 09/02/2015 Lipid Ord30 C/HDL 2.7 Ratio 09/02/2015 Comp Metabolic Qkj175 NA 135 mEq/L 09/02/2015 Comp Metabolic Xdr139 K 3.4 mEq/L 09/02/2015 Comp Metabolic Wgk859 CL 95 mEq/L 09/02/2015 Comp Metabolic Uuk893 CO2 27.0 mEq/L 09/02/2015 Comp Metabolic Nwx095 AN ION GAP 16 09/02/2015 Comp Metabolic Bmb066 GL UCOSE 94 mg/dL 09/02/2015 Comp Metabolic Aoo650 Cr eat 0.7 mg/dL 09/02/2015 Comp Metabolic Qsv022 eG FR 87 ml/min/1.73m2 09/02 Comp Metabolic Hfc210 BUN 18 mg/dL 09/02/2015 Comp Metabolic Nqf191 B/ C Ratio 26.1 Ratio 09/02/2015 Comp Metabolic Grg099 CA LCIUM 9.0 mg/dL 09/02/2015 Comp Metabolic Pym204 AL K PHOS 67 U/L 09/02/2015 Comp Metabolic Wxf535 T(SGOT) 30 U/L 09/02/2015 Comp Metabolic Qqn824 AL T(SGPT) 21 U/L 09/02/2015 Comp Metabolic Gml905 BI LI T 0.6 mg/dL 09/02/2015 Comp Metabolic Fit383 AL BUMIN 4.3 g/dL 09/02/2015 Comp Metabolic Jhi214 TP RO 6.8 g/dL 09/02/2015 Comp Metabolic Ryx428 GL OB 2.5 g/dL 09/02/2015 Comp Metabolic Lvz076 A/ G Ratio 1.7 Ratio 09/02/2015 Comp Metabolic Tmd116 Os mo 272 mOsmo 09/02/2015 Cbc With Differential Ord2 WBC 4.5 [...] With Differential Ord2 RDW 15.1 % 09/02/2015 Tsh Ord6 hTSH II 1.14 uIU/mL 09/02/2015 B12 Uzp109 B12 838.00 pg/ml 09/02/2015 Review of Systems System Result Effective Dates Constitutional No recent illness 09/13/2017 Constitutional No [...] VACC PRSV FREE I NC ANTIG CPT-4: 37472 06/21/2017 ADMIN INFLUENZA VIRU S VAC CPT-4: G0008 06/24/2016 FLU VACC 4 CRISTINE 3 YRS PLUS IM Formatting Model/CDA Sections, Assigned to/Carmen Solis SNOMED CT: 07370761 CPT-4: 49383Pjnffiy 06/24/2016 ADMIN INFLUENZA VIRU S VAC CPT-4: G0008 06/19/2015 FLU VACC 4 CRISTINE 3 YRS PLUS IM Formatting Model/CDA Sections, Assigned to/Carmen Solis SNOMED CT: 06498773 CPT-4: 05516Sqaqzaj 06/19/2015 Vital Signs Date Vital 09/13/2017 Blood Pressure 1: 138/70 Code: 8480-6 BMI: 15.9 Code: 84257-9 Heart Rate 1: 74 bpm Height: 5'2" SpO2: 99% Weight: 88 lbs 8 oz 06/21/2017 Blood Pressure 1: 122/50 Code: 8480-6 BMI: 15.3 Code: 16128-7 Heart Rate 1: 69 bpm Height: 5'2" SpO2: 99% Weight: 85 lbs 05/25/2017 Blood Pressure 1: 138/72 Code: 8480-6 Heart Rate 1: 77 bpm Height: 5'2" SpO2: 98% Weight: 05/16/2017 Blood Pressure 1: 136/78 Code: 8480-6 Heart Rate 1: 86 bpm Height: 5'2" SpO2: 98% Weight: 02/15/2017 Blood Pressure 1: 144/78 Code: 8480-6 BMI: 15.4 Code: 64485-2 Heart Rate 1: 65 bpm Height: 5'2" SpO2: 98% Weight: 85 lbs 8 oz 11/22/2016 Blood Pressure 1: 140/58 Code: 8480-6 BMI: 14.8 Code: 97295-6 Heart Rate 1: 79 bpm Height: 5'2" SpO2: 99% Weight: 82 lbs 09/15/2016 BMI: 16.0 Code: 37212-3 Height: 5'2" Weight: 89 lbs 09/07/2016 Blood Pressure 1: 130/62 Code: 8480-6 BMI: 16.2 Code: 33501-5 Heart Rate 1: 71 bpm Height: 5'2" SpO2: 98% Weight: 90 lbs 07/06/2016 Blood Pressure 1: 144/76 Code: 8480-6 BMI: 15.8 Code: 08332-8 Heart Rate 1: 78 bpm Height: 5'2" SpO2: 99% Weight: 88 lbs 04/06/2016 Blood Pressure 1: 148/58 Code: 8480-6 BMI: 16.2 Code: 54745-0 Heart Rate 1: 64 bpm Height: 5'2" SpO2: 97% Weight: 90 lbs 01/06/2016 Blood Pressure 1: 146/72 Code: 8480-6 BMI: 16.6 Code: 59664-5 Heart Rate 1: 62 bpm Height: 5'2" SpO2: 99% Weight: 92 lbs 09/02/2015 Blood Pressure 1: 132/70 Code: 8480-6 BMI: 16.6 Code: 97206-6 Heart Rate 1: 77 bpm Height: 5'2" SpO2: 98% Weight: 92 lbs 06/15/2015 Blood Pressure 1: 144/60 Code: 8480-6 BMI: 16.7 Code: 68610-4 Heart Rate 1: 66 bpm Height: 5'2" SpO2: 97% Weight: 93 lbs 03/04/2015 Blood Pressure 1: 120/80 Code: 8480-6 BMI: 15.8 Code: 63337-5 Heart Rate 1: 74 bpm Height: 5'2" Weight: 88 lbs Functional Status No Functional Status data History of Present Illness Symptom Name Status Resu lt Effective Date Notes hypertension Quality robinson linus hypertension 09/13/2017 None [...] triggers 02/15/2017 None Hospital Follow Up _ [facility] er: surgery follow up 11/22/2016 None [...] Encounters Encounter Performer Loca tion Codes Date ([id number]) [id number] EST. P ATIENT, LEVEL III Diagnosis: Essential (primary) hypertension[ICD10: I10] Diagnosis: Fracture of unspecified part of neck of left femur, subsequent encounter for closed fracture with routine healing[ICD10: S72.002D] Diagnosis: Underweight[ICD10: R63.6] Anum Bradshaw MD, [facility] CPT-4: 62839 09/13/2017 ([id number]) 52119 EST. P ATIENT, LEVEL IV Diagnosis: Mixed hyperlipidemia[ICD10: E78.2] Diagnosis: Essential (primary) hypertension[ICD10: I10] Diagnosis: Vitamin B12 deficiency anemia due to intrinsic factor deficiency[ICD10: D51.0] Diagnosis: Gastro-esophageal reflux disease with esophagitis[ICD10: K21.0] Diagnosis: Age-related osteoporosis without current pathological fracture[ICD10: M81.0] Diagnosis: Encounter for immunization[ICD10: Z23] Anum Bradshaw MD, [facility] CPT-4: 08779 06/21/2017 [id number]) [id number] EST. P ATIENT, LEVEL III Diagnosis: Fracture of unspecified part of neck of left femur, subsequent encounter for closed fracture with routine healing[ICD10: S72.002D] Diagnosis: Underweight[ICD10: R63.6] Diagnosis: Gastro-esophageal reflux disease with esophagitis[ICD10: K21.0] Anum Bradshaw MD, [facility] CPT-4: 09545 05/25/[id number]) [id number] [facility]: Essential (primary) hypertension[ICD10: I10] Diagnosis: Fracture of unspecified part of neck of left femur, subsequent encounter for closed fracture with routine healing[ICD10: S72.002D] Diagnosis: Generalized anxiety disorder[ICD10: F41.1] Anum Bradshaw MD, [facility] CPT-4: 40463 05/16/2017 ([id number]) [id number] EST. P ATIENT, LEVEL IV Diagnosis: Essential (primary) hypertension[ICD10: I10] Diagnosis: Mixed hyperlipidemia[ICD10: E78.2] Diagnosis: Generalized anxiety disorder[ICD10: F41.1] Anum Bradshaw MD, [facility] CPT-4: 60800 02/15/2017 ([id number]) 06508 EST. P ATIENT, LEVEL IV Diagnosis: Mixed hyperlipidemia[ICD10: E78.2] Diagnosis: Generalized anxiety disorder[ICD10: F41.1] Diagnosis: Essential (primary) hypertension[ICD10: I10] Diagnosis: Gastro-esophageal reflux disease with esophagitis[ICD10: K21.0] Anum Bradshaw MD, [facility] CPT-4: 13918 11/22/2016 [id number] EST. PATIENT, LEVEL III Diagnosis: Inflamed seborrheic keratosis[ICD10: L82.0] Kala Bradshaw MD, [facility] CPT-4: 08344 09/15/2016 ([id number]) 26906 EST. P ATIENT, LEVEL IV Diagnosis: Essential (primary) hypertension[ICD10: I10] Diagnosis: Mixed hyperlipidemia[ICD10: E78.2] Diagnosis: Generalized anxiety disorder[ICD10: F41.1] Anum Bradshaw MD, [facility] CPT-4: 40720 09/07/2016 ([id number]) [id number] EST. P ATIENT, LEVEL IV Diagnosis: Essential (primary) hypertension[ICD10: I10] Diagnosis: Frequency of micturition[ICD10: R35.0] Diagnosis: Age-related osteoporosis without current pathological fracture[ICD10: M81.0] Anum Bradshaw MD, [facility] CPT-4: 98831 07/06/2016 ([id number]) [id number] EST. P ATIENT, LEVEL IV Diagnosis: Essential (primary) hypertension[ICD10: I10] Diagnosis: Mixed hyperlipidemia[ICD10: E78.2] Diagnosis: Gastro-esophageal reflux disease with esophagitis[ICD10: K21.0] Anum Bradshaw MD, [facility] CPT-4: 39959 04/06/2016 [id number] EST. PATIENT, LEVEL IV Diagnosis: Essential (primary) hypertension[ICD10: I10] Diagnosis: Gastro-esophageal reflux disease with esophagitis[ICD10: K21.0] Kala Bradshaw MD, [facility] CPT-4: 73281 01/06/2016 ([id number]) [id number] EST. 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 P ATIENT, LEVEL III Diagnosis: Carpal tunnel syndrome[ICD9: 354.0] Diagnosis: Inflamed seborrheic keratosis[ICD9: 702.11] Rosalinda Bradshaw MD, [facility] CPT-4: 84179 06/15/2015 ([id number]) OFFICE VISI T, NEW - LEVEL 4 Diagnosis: ESSENTIAL HYPERTENSION[ICD9: 401.9] Diagnosis: ESOPHAGEAL REFLUX[ICD9: 530.81] Diagnosis: HYPERLIPIDEMIA[ICD9: 272.4] Anum Bradshaw MD, [facility] CPT-4: 77137 03/04/2015 Plan of Care Planned Activity Notes [...] - healing. 09/13/2017 Appointment: Anum Bradshaw WPtel: [address] [place], [place] [phone] (15 min) Moderate 09/13/2017 Patient Education: Patient [...] improving. 06/21/2017 Appointment: Anum Bradshaw WPtel: [phone] [facility] (15 min) Moderate 06/21/2017 Patient Education: Patient Medication Summary Completed 06/21/2017 Visit Plan: Esophageal Reflux - the patient has been taking medication as directed and her symptoms are improved. Hip fracture - continue with supportive care, nonweight bearing. Underweight - increase protein intake, higher calorie diet, use wheelchair to decrease excessive caloric expenditure. 05/25/2017 [phone] ([facility]) Moderate 05/25/2017 Patient Education: [...] medications. 05/16/2017 Appointment: Anum Bradshaw WPtel: [phone] [facility] (15 min) Moderate 05/16/2017 Patient Education: [...] medications. 02/15/2017 Appointment: Anum Bradshaw WPtel: [phone] [facility] (15 min) Moderate 02/15/2017 Patient Education: Patient Medication Summary Completed 02/15/2017 Patient Education: Hypertension Completed 02/15/2017 Care Plan: Referral Order SNOMED-CT : [id number] Pending 02/15/2017 Appointment: Anum Bradshaw WPtel: [facility] (15 min) Moderate 01/11/2017 Visit Plan: [...] treatment 11/22/2016 [phone] ([facility]) Moderate 11/22/2016 Patient Education: Patient Medication Summary Completed 11/22/2016 Patient Education: Hypertension Completed 11/22/2016 Appointment[phone] [place] (30 min) Complex 09/16/2016 Visit Plan: [...] monitor symptoms. 09/07/2016 Appointment: Anum Bradshaw WPtel: [phone] [facility] (15 min) Moderate 09/07/2016 Patient Education: [...] ua negative 07/06/2016 Appointment: Anum Bradshaw WPtel: [phone] [facility] (15 min) Moderate 07/06/2016 Patient Education: [...] not improving. 04/06/2016 Appointment: Anum Bradshaw WPtel: [phone] [facility] (15 min) Moderate 04/06/2016 Patient Education: [...] 09/02/2015 Care Plan: Referral Order SNOMED-CT : [id number] Ordered 09/02/2015 Appointment: Injection 06/19/2015 Patient Education: [...] not improving. 03/04/2015 Appointment: Anum Bradshaw WPtel: [address] [place], [place] [id number] [place] ([place]) New Patient 03/04/2015 Patient Education: Patient Medication Summary Completed 03/04/2015 Patient Education: Hypertension Completed 03/04/2015 Patient Education: Patient Medication Summary Completed 02/10/2015 Referral: Dickson Forde Referral Appointment Requested Referral: Kenneth Sykes Referral Appointment Requested Instructions Comment Monitor your blood p ressure at home [...] symptoms are not improving. . Hypertension - The patient has been [...] if the symptoms are not improving. . Carpel tunnel synd jorge-recommend wrist brace [...] drainage, or any other acute concerns. . Hypertension - wel l controlled - [...]
--- OUTSIDE RECORDS SUMMARY | 2019-12-29 11:37 | XMS REPORT | CCD ---
Author Author Ashley Bradshaw Organization [facility] Address [address] [place] [address] Phone Care Team Providers Care Senior Advocate Name Role Phone PP Unavailable CCM Unavailable Summary Purpose Interface Exchange Insurance Providers Payer name Policy type / Coverage type Covered constitution party ID Effective Begin Date Effective End Date WPS Medicare Part B Medicare Part B [id number] Unknown Unknown CIGNA Medicare Part B [id number] Unknown Unknown Family history Father Diagnosis Age At Onset Coronary Artery Disease Unknown Mother Diagnosis Age At Onset Anemia Unknown Skin cancer Unknown Hypertension Unknown Cancer Unknown Breast cancer Unknown Social History Social History Element Codes Description Effective Dates Marital status Unknown M ciarra Omalley 03/04/2015 Number of children Unknown 3 03/04/[address]: 745655619 Never smoker 03/04/[address]: 418153159 Never drinks alcohol 03/04/2015 Allergies, Adverse Reactions, [...] Fill Instructions diltiazem 30 mg tablet RxNorm: 652582 1 Tablet(s) PO QID 10/09/2017 10/03/2018 Active triamterene 37.5 mg- hydrochlorothiazide 25 mg tablet RxNorm: 739143 1 Tablet(s) PO daily 07/28/2017 01/23/2018 Active fluticasone 50 mcg/a ctuation nasal spray,suspension RxNorm: 5556440 2 [place] NASAL daily 07/20/2017 01/15/2018 Active diltiazem 30 mg tablet RxNorm: 460391 1 Tablet(s) PO QID TAKE 1 TABLET BY MOUT H FOUR TIMES DAILY 07/13/2017 10/08/2017 Inactive simvastatin 20 mg ta blet RxNorm: 827713 TAKE 1 TABLET BY MOUT H EVERY DAY 06/08/2017 12/04/2017 Ac tive Nexium 40 mg capsule ,delayed release RxNorm: 061901 1 Capsule(s) PO daily 05/25/2017 No Stop Date Active esomeprazole magnesi um 40 mg capsule,delayed release RxNorm: 387610 Capsule(s) TAKE 1 CAPSULE BY MOUTH DAILY 05/17/2017 02/10/2018 Active diltiazem 30 mg tablet RxNorm: 315115 Tablet(s) TAKE 1 TABLET BY MOUTH FOUR TI MES DAILY 05/16/2017 07/12/2017 Inactive diltiazem 30 mg tablet RxNorm: 222645 TAKE 1 TABLET BY MOUTH THREE TIMES DAILY 02/09/2017 05/15/2017 In active Zofran ODT 4 mg disi ntegrating tablet RxNorm: 268753 1 Tablet(s) PO Q6 as needed 11/16/2016 11/22/2016 In active Protonix 40 mg table t,delayed release RxNorm: 307105 1 Tablet(s) PO daily 11/16/2016 12/15/2016 In active Protonix 40 mg table t,delayed release RxNorm: 269048 1 Tablet(s) PO daily 11/16/2016 11/15/2016 In active Zofran ODT 4 mg disi ntegrating tablet RxNorm: 140043 1 Tablet(s) PO Q6 as needed 11/16/2016 11/15/2016 In active escitalopram 5 mg ta blet RxNorm: 485563 1 Tablet(s) PO QPM 10/28/2016 10/22/2017 Active escitalopram 5 mg ta blet RxNorm: 742880 1 Tablet(s) PO QPM 10/05/2016 10/27/2016 Inactive mupirocin 2 % topica l ointment RxNorm: 321370 1 Application TOP yao ly APPLY TO AFFECTED AREA(S) TOPICALLY DAILY 09/07/2016 11/05/2016 Inactive Efudex 5 % topical c ream RxNorm: 433398 1 TOP BID 09/07/2016 09/16/2016 Inactive escitalopram 5 mg ta blet RxNorm: 505837 1 Tablet(s) PO QPM 09/07/2016 10/04/2016 Inactive sucralfate 100 mg/mL oral suspension RxNorm: 261699 10 Milliliter(s) per 1 gram PO QID 08/03/2016 07/28/2017 Inactive refill 3 month supply- 1gm/10ml clorazepate dipotass ium 3.75 mg tablet RxNorm: 804144 1 Tablet(s) PO QHS as needed insomnia 07/06/2016 06/30/2017 Inactive triamterene 37.5 mg- hydrochlorothiazide 25 mg tablet RxNorm: 166390 1 Tablet(s) PO daily 06/29/2016 06/23/2017 Inactive Nexium 40 mg capsule ,delayed release RxNorm: 920697 1 Capsule(s) PO daily 06/29/2016 07/05/2016 In active Bactroban 2 % topica l ointment RxNorm: 865845 APPLY TO AFFECTED ARE A(S) TOPICALLY DAILY 06/22/2016 09/06/2016 Inactive esomeprazole magnesi um 40 mg capsule,delayed release RxNorm: 475128 TAKE 1 CAPSULE BY MOUTH DAILY 06/13/2016 03/09/2017 Inactive simvastatin 20 mg ta blet RxNorm: 620949 1 Tablet(s) PO daily 05/16/2016 06/07/2017 Inactive simvastatin 20 mg ta blet RxNorm: 826321 1 Tablet(s) PO daily 05/12/2016 05/15/2016 Inactive famotidine 40 mg tablet RxNorm: 212430 TAKE 1 TABLET BY MOUTH DAILY 05/05/2016 01/29/2017 Inactive Bactroban 2 % topica l ointment RxNorm: 499228 APPLY TO AFFECTED ARE A(S) TOPICALLY DAILY 04/25/2016 05/01/2016 Inactive fluticasone 50 mcg/a ctuation nasal spray,suspension RxNorm: 4977183 2 [place] NASAL daily 03/23/2016 09/18/2016 Inactive fluticasone 50 mcg/a ctuation nasal spray,suspension RxNorm: 423354 2 [place] NASAL daily 03/07/2016 03/22/2016 Inactive Bactroban 2 % topica l ointment RxNorm: 034891 APPLY TO AFFECTED ARE A(S) TOPICALLY DAILY 02/29/2016 03/06/2016 Inactive diltiazem 30 mg tablet RxNorm: 115432 1 Tablet(s) PO TID 02/18/2016 02/08/2017 Inactive Bactroban 2 % topica l ointment RxNorm: 651742 1 Application TOP 01/08/2016 02/28/2016 Inactive clorazepate dipotass ium 3.75 mg tablet RxNorm: 994691 1 Tablet(s) PO daily 12/14/2015 06/10/2016 In active fluticasone 50 mcg/a ctuation nasal spray,suspension RxNorm: 018352 2 [place] NASAL daily 12/14/2015 02/11/2016 Inactive diltiazem 30 mg tablet RxNorm: 122602 1 Tablet(s) PO TID 09/03/2015 02/17/2016 Inactive simvastatin 20 mg ta blet RxNorm: 535010 1 Tablet(s) PO daily 08/24/2015 05/11/2016 Inactive triamterene 37.5 mg- hydrochlorothiazide 25 mg tablet RxNorm: 981875 1 Tablet(s) PO daily 07/09/2015 06/28/2016 Inactive clorazepate dipotass ium 15 mg tablet RxNorm: 070018 1 Tablet(s) PO daily 07/06/2015 07/06/2015 In active clorazepate dipotass ium 3.75 mg tablet RxNorm: 996358 1 Tablet(s) PO daily 07/06/2015 12/13/2015 In active esomeprazole magnesi um 40 mg capsule,delayed release RxNorm: 920471 1 Capsule(s) PO daily 06/26/2015 06/12/2016 Inactive famotidine 40 mg tablet RxNorm: 230334 1 Tablet(s) PO daily 06/26/2015 05/04/2016 Inactive diltiazem 30 mg tablet RxNorm: 172428 1 Tablet(s) PO TID 06/09/2015 09/02/2015 Inactive sucralfate 100 mg/mL oral suspension RxNorm: 881237 10 Milliliter(s) per 1 gram PO QID 04/28/2015 04/21/2016 Inactive refill 3 month supply- 1gm/10ml member I d [id number] sucralfate 100 mg/mL oral suspension RxNorm: 365794 10 Milliliter(s) per 1 gram PO QID 04/27/2015 04/27/2015 Inactive refill 3 month supply diltiazem 30 mg tablet RxNorm: 284106 1 Tablet(s) PO TID 02/18/2015 02/17/2015 Inactive diltiazem 30 mg tablet RxNorm: 894812 1 Tablet(s) PO TID 02/18/2015 05/18/2015 Inactive Vitamin D3 2,000 uni t tablet RxNorm: 547141 Tablet(s) PO daily No Start Date Active PreserVision Lutein oral RxNorm: [address] art Date Active Calcium 500 + D oral RxNorm: 436078 oral No Start Date Active Zyrtec 10 mg tablet RxNorm: 7603934 1 Tablet(s) PO daily No Start Date Active melatonin 5 mg tablet RxNorm: 004028 Tablet(s) PO QHS as needed No Start Date Active vitamin B6-vitamin E -magnesium oral RxNorm: 102778 oral No S tart Date Active famotidine 40 mg tablet RxNorm: 600969 1 Tablet(s) PO daily No Start Date 06/25/2015 Inactive clorazepate dipotass ium 3.75 mg tablet RxNorm: 549981 1 Tablet(s) PO daily No Start Date 07/05/2015 Inactive Bactroban 2 % topica l ointment RxNorm: 845240 1 Application TOP No Start Date 01/07/2016 Inactive Carafate 1 gram tablet RxNorm: 940676 1 Tablet(s) PO QID No Start Date 04/26/2015 Inactive esomeprazole magnesi um 40 mg capsule,delayed release RxNorm: 830628 Capsule(s) PO daily No Start Date 06/25/2015 Inactive fluticasone 50 mcg/a ctuation nasal spray,suspension RxNorm: 615483 2 [place] NASAL daily No Start Date 12/13/2015 Inactive Nexium 40 mg capsule ,delayed release RxNorm: 857665 1 Capsule(s) PO daily No Start Date 06/28/2016 Inactive triamterene 37.5 mg- hydrochlorothiazide 25 mg tablet RxNorm: 454782 1 Tablet(s) PO daily No Start Date 07/08/2015 Inactive simvastatin 20 mg ta blet RxNorm: 110433 1 Tablet(s) PO daily No Start Date [...] hypertension ICD -10: I10 ICD-9: 401.9 09/13/2017 Vitamin B12 deficiency anemia due to int rinsic 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 ICD-9: 281.0 06/21/2017 Encounter for immunization ICD-10: Z 23 ICD-9: V04.81 06/21/2017 Gastro-esophageal reflux disease with esophagitis ICD-10: K21.0 ICD-9: 530.81 06/21/2017 Mixed hyperlipidemia ICD-10: E78.2 ICD-9: 272.4 06/21/2017 Age-related osteoporosis without current pathological fracture ICD-10: M81.0 ICD-9: 733.00 06/21/2017 Generalized anxiety disorder ICD-10: F41.1 ICD-9: [...] Result Date Cbc With Differential Ord2 WBC 4.46 K/ul [...] 32.3 pg 06/21/2017 Cbc With Differential Ord2 [place]% 10.1 % 06/21/2017 Cbc With Differential Ord2 MCHC 34.4 pg 06/21/2017 Cbc With Differential Ord2 Eos% 3.8 % 06/21/2017 Cbc With Differential Ord2 Baso% 0.2 % 06/21/2017 Cbc With Differential Ord2 PLT 317 K/ul 06/21/2017 Cbc With Differential Ord2 Neut ABS# 3.18 K/ul 06/21/2017 Cbc With Differential Ord2 RDW 14.4 % 06/21/2017 Cbc With Differential Ord2 Lymph ABS# 0.65 K/ul 06/21/2017 Cbc With Differential Ord2 [place] ABS# 0.5 K/ul 06/21/2017 Cbc With Differential Ord2 Eos ABS# 0.2 K/ul 06/21/2017 Cbc With Differential Ord2 Baso ABS# 0.0 K/ul 06/21/2017 Comp Metabolic Czf587 NA 133 mEq/L 06/21/2017 Comp Metabolic Mwh049 K 4.0 mEq/L 06/21/2017 Comp Metabolic Eub396 CL 94 mEq/L 06/21/2017 Comp Metabolic Iqe262 CO2 25.0 mEq/L 06/21/2017 Comp Metabolic Uha657 AN ION GAP 18 06/21/2017 Comp Metabolic Dls203 GL UCOSE 88 mg/dL 06/21/2017 Comp Metabolic Qvv129 Cr eat 0.6 mg/dL 06/21/2017 Comp Metabolic Abn819 eG FR 94 ml/min/1.73m2 06/21 Comp Metabolic Xwv564 BUN 16 mg/dL 06/21/2017 Comp Metabolic Gxd061 B/ C Ratio 25.0 Ratio 06/21/2017 Comp Metabolic Geb407 CA LCIUM 9.1 mg/dL 06/21/2017 Comp Metabolic Xen621 AL K PHOS 65 U/L 06/21/2017 Comp Metabolic Rlo059 T(SGOT) 31 U/L 06/21/2017 Comp Metabolic Jsh612 AL T(SGPT) 20 U/L 06/21/2017 Comp Metabolic Gpe299 BI LI T 0.5 mg/dL 06/21/2017 Comp Metabolic Mbj449 AL BUMIN 4.3 g/dL 06/21/2017 Comp Metabolic Mdb181 TP RO 6.6 g/dL 06/21/2017 Comp Metabolic Cnp824 GL OB 2.3 g/dL 06/21/2017 Comp Metabolic Szq914 A/ G Ratio 1.8 Ratio 06/21/2017 Comp Metabolic Rqv094 Os mo 267 mOsmo 06/21/2017 Lipid Ord30 CHOL 188 mg/dL 06/21/2017 Lipid Ord30 HDL 77.0 mg/dl 06/21/2017 Lipid Ord30 TRIG 66 mg/dL 06/21/2017 Lipid Ord30 LDL 98 mg/dL 06/21/2017 Lipid Ord30 C/HDL 2.4 Ratio 06/21/2017 Tsh Ord6 hTSH II 1.32 uIU/mL 06/21/2017 Comp Metabolic Wad436 NA 135 mEq/L 02/09/2017 Comp Metabolic Kyc837 K 4.0 mEq/L 02/09/2017 Comp Metabolic Qva486 CL 96 mEq/L 02/09/2017 Comp Metabolic Qlj784 CO2 28.0 mEq/L 02/09/2017 Comp Metabolic Kgl194 AN ION GAP 15 02/09/2017 Comp Metabolic Wkk333 GL UCOSE 101 mg/dL 02/09/2017 Comp Metabolic Phz403 Cr eat 0.7 mg/dL 02/09/2017 Comp Metabolic Wea074 eG FR 83 ml/min/1.73m2 02/09 Comp Metabolic Qvx393 BUN 17 mg/dL 02/09/2017 Comp Metabolic Iir919 B/ C Ratio 23.9 Ratio 02/09/2017 Comp Metabolic Oxn399 CA LCIUM 9.3 mg/dL 02/09/2017 Comp Metabolic Ydx893 AL K PHOS 51 U/L 02/09/2017 Comp Metabolic Urj973 T(SGOT) 33 U/L 02/09/2017 Comp Metabolic Ovh201 AL T(SGPT) 21 U/L 02/09/2017 Comp Metabolic Pcm888 BI LI T 0.6 mg/dL 02/09/2017 Comp Metabolic Lec048 AL BUMIN 4.3 g/dL 02/09/2017 Comp Metabolic Ufq733 TP RO 6.9 g/dL 02/09/2017 Comp Metabolic Mqn514 GL OB 2.6 g/dL 02/09/2017 Comp Metabolic Jix661 A/ G Ratio 1.7 Ratio 02/09/2017 Comp Metabolic Qwc502 Os mo 272 mOsmo 02/09/2017 Lipid Ord30 [...] 94.3 fl 02/09/2017 Cbc With Differential Ord2 [place]% 11.3 % 02/09/2017 Cbc With Differential Ord2 [...] 0.77 K/ul 02/09/2017 Cbc With Differential Ord2 [place] ABS# 0.6 K/ul 02/09/2017 Cbc With Differential [...] 92.7 fl 03/29/2016 Cbc With Differential Ord2 [place]% 9.5 % 03/29/2016 Cbc With Differential Ord2 MCH 31.5 pg 03/29/2016 Cbc With Differential Ord2 MCHC 33.9 pg 03/29/2016 Cbc With Differential Ord2 Eos% 2.7 % 03/29/2016 Cbc With Differential Ord2 PLT 313 K/ul 03/29/2016 Cbc With Differential Ord2 Baso% 0.7 % 03/29/2016 Cbc With Differential Ord2 Neut ABS# 3.34 K/ul 03/29/2016 Cbc With Differential Ord2 RDW 14.1 % 03/29/2016 Cbc With Differential Ord2 Lymph ABS# 0.60 K/ul 03/29/2016 Cbc With Differential Ord2 [place] ABS# 0.4 K/ul 03/29/2016 Cbc With Differential Ord2 Eos ABS# 0.1 K/ul 03/29/2016 Cbc With Differential Ord2 Baso ABS# 0.0 K/ul 03/29/2016 Comp Metabolic Ajd046 NA 135 mEq/L 03/29/2016 Comp Metabolic Csw828 K 3.7 mEq/L 03/29/2016 Comp Metabolic Hdy694 CL 96 mEq/L 03/29/2016 Comp Metabolic Sqz365 CO2 30.0 mEq/L 03/29/2016 Comp Metabolic Dbd800 AN ION GAP 13 03/29/2016 Comp Metabolic Xag835 GL UCOSE 102 mg/dL 03/29/2016 Comp Metabolic Tss339 Cr eat 0.6 mg/dL 03/29/2016 Comp Metabolic Yla769 eG FR 94 ml/min/1.73m2 03/29 Comp Metabolic Axj529 BUN 15 mg/dL 03/29/2016 Comp Metabolic Jmv826 B/ C Ratio 23.4 Ratio 03/29/2016 Comp Metabolic Jge497 CA LCIUM 9.1 mg/dL 03/29/2016 Comp Metabolic Hrb451 AL K PHOS 70 U/L 03/29/2016 Comp Metabolic Gjc096 T(SGOT) 35 U/L 03/29/2016 Comp Metabolic Pfb039 AL T(SGPT) 27 U/L 03/29/2016 Comp Metabolic Xsk227 BI LI T 0.5 mg/dL 03/29/2016 Comp Metabolic Amx972 AL BUMIN 4.2 g/dL 03/29/2016 Comp Metabolic Hhc889 TP RO 6.6 g/dL 03/29/2016 Comp Metabolic Vtm819 GL OB 2.4 g/dL 03/29/2016 Comp Metabolic Wva670 A/ G Ratio 1.7 Ratio 03/29/2016 Comp Metabolic Wnq140 Os mo 271 mOsmo 03/29/2016 Tsh Ord6 hTSH II 1.17 uIU/mL 03/29/2016 B12 Uxa276 B12 838.00 pg/ml 09/02/2015 Tsh Ord6 hTSH [...] Ord2 RDW 15.1 % 09/02/2015 Comp Metabolic Xtq464 NA 135 mEq/L 09/02/2015 Comp Metabolic Uti131 K 3.4 mEq/L 09/02/2015 Comp Metabolic Pgp438 CL 95 mEq/L 09/02/2015 Comp Metabolic Ecd255 CO2 27.0 mEq/L 09/02/2015 Comp Metabolic Xkd776 AN ION GAP 16 09/02/2015 Comp Metabolic Thq200 GL UCOSE 94 mg/dL 09/02/2015 Comp Metabolic Kmz527 Cr eat 0.7 mg/dL 09/02/2015 Comp Metabolic Zzj413 eG FR 87 ml/min/1.73m2 09/02 Comp Metabolic Xqp269 BUN 18 mg/dL 09/02/2015 Comp Metabolic Vsg199 B/ C Ratio 26.1 Ratio 09/02/2015 Comp Metabolic Wjp019 CA LCIUM 9.0 mg/dL 09/02/2015 Comp Metabolic Sws408 AL K PHOS 67 U/L 09/02/2015 Comp Metabolic Pjd724 T(SGOT) 30 U/L 09/02/2015 Comp Metabolic Qys081 AL T(SGPT) 21 U/L 09/02/2015 Comp Metabolic Oll452 BI LI T 0.6 mg/dL 09/02/2015 Comp Metabolic Khm253 AL BUMIN 4.3 g/dL 09/02/2015 Comp Metabolic Osz300 TP RO 6.8 g/dL 09/02/2015 Comp Metabolic Fwj916 GL OB 2.5 g/dL 09/02/2015 Comp Metabolic Hre547 A/ G Ratio 1.7 Ratio 09/02/2015 Comp Metabolic Evv055 Os mo 272 mOsmo 09/02/2015 Lipid Ord30 [...] VACC PRSV FREE I NC ANTIG CPT-4: 70817 06/21/2017 ADMIN INFLUENZA VIRU S VAC CPT-4: G0008 06/24/2016 FLU VACC 4 CRISTINE 3 YRS PLUS IM Formatting Model/CDA Sections, Assigned to/Carmen Solis SNOMED CT: 58918533 CPT-4: 21669Mubdhtv 06/24/2016 ADMIN INFLUENZA VIRU S VAC CPT-4: G0008 06/19/2015 FLU VACC 4 CRISTINE 3 YRS PLUS IM Formatting Model/CDA Sections, Assigned to/Carmen Solis SNOMED CT: 71153642 CPT-4: 82525Fxweadp 06/19/2015 Vital Signs Date Vital 09/13/2017 Blood Pressure 1: 138/70 Code: 8480-6 BMI: 15.9 Code: 97615-5 Heart Rate 1: 74 bpm Height: 5'2" SpO2: 99% Weight: 88 lbs 8 oz 06/21/2017 Blood Pressure 1: 122/50 Code: 8480-6 BMI: 15.3 Code: 90738-8 Heart Rate 1: 69 bpm Height: 5'2" SpO2: 99% Weight: 85 lbs 05/25/2017 Blood Pressure 1: 138/72 Code: 8480-6 Heart Rate 1: 77 bpm Height: 5'2" SpO2: 98% Weight: 05/16/2017 Blood Pressure 1: 136/78 Code: 8480-6 Heart Rate 1: 86 bpm Height: 5'2" SpO2: 98% Weight: 02/15/2017 Blood Pressure 1: 144/78 Code: 8480-6 BMI: 15.4 Code: 30081-0 Heart Rate 1: 65 bpm Height: 5'2" SpO2: 98% Weight: 85 lbs 8 oz 11/22/2016 Blood Pressure 1: 140/58 Code: 8480-6 BMI: 14.8 Code: 70024-6 Heart Rate 1: 79 bpm Height: 5'2" SpO2: 99% Weight: 82 lbs 09/15/2016 BMI: 16.0 Code: 67578-5 Height: 5'2" Weight: 89 lbs 09/07/2016 Blood Pressure 1: 130/62 Code: 8480-6 BMI: 16.2 Code: 83819-1 Heart Rate 1: 71 bpm Height: 5'2" SpO2: 98% Weight: 90 lbs 07/06/2016 Blood Pressure 1: 144/76 Code: 8480-6 BMI: 15.8 Code: 97857-1 Heart Rate 1: 78 bpm Height: 5'2" SpO2: 99% Weight: 88 lbs 04/06/2016 Blood Pressure 1: 148/58 Code: 8480-6 BMI: 16.2 Code: 37517-3 Heart Rate 1: 64 bpm Height: 5'2" SpO2: 97% Weight: 90 lbs 01/06/2016 Blood Pressure 1: 146/72 Code: 8480-6 BMI: 16.6 Code: 13054-6 Heart Rate 1: 62 bpm Height: 5'2" SpO2: 99% Weight: 92 lbs 09/02/2015 Blood Pressure 1: 132/70 Code: 8480-6 BMI: 16.6 Code: 18317-5 Heart Rate 1: 77 bpm Height: 5'2" SpO2: 98% Weight: 92 lbs 06/15/2015 Blood Pressure 1: 144/60 Code: 8480-6 BMI: 16.7 Code: 86412-7 Heart Rate 1: 66 bpm Height: 5'2" SpO2: 97% Weight: 93 lbs 03/04/2015 Blood Pressure 1: 120/80 Code: 8480-6 BMI: 15.8 Code: 84730-9 Heart Rate 1: 74 bpm Height: 5'2" [...] Encounters Encounter Performer Loca tion Codes Date ([id number]) 86090 EST. P ATIENT, LEVEL III Diagnosis: Essential (primary) hypertension[ICD10: I10] Diagnosis: Fracture of unspecified part of neck of left femur, subsequent encounter for closed fracture with routine healing[ICD10: S72.002D] Diagnosis: Underweight[ICD10: R63.6] Anum [facility]shaw MD, [facility] CPT-4: 78212 09/13/2017 [id number]) 13015 EST. [facility] Diagnosis: Mixed hyperlipidemia[ICD10: E78.2] Diagnosis: Essential (primary) hypertension[ICD10: I10] Diagnosis: Vitamin B12 deficiency anemia due to intrinsic factor deficiency[ICD10: D51.0] Diagnosis: Gastro-esophageal reflux disease with esophagitis[ICD10: K21.0] Diagnosis: Age-related osteoporosis without current pathological fracture[ICD10: M81.0] Diagnosis: Encounter for immunization[ICD10: Z23] [facility] CPT-4: 20688 06/21/2017 [id number]) [id number] EST. P [facility], LEV[facility] III Diagnosis: Fracture of unspecified part of neck of left femur, subsequent encounter for closed fracture with routine healing[ICD10: S72.002D] Diagnosis: Underweight[ICD10: R63.6] Diagnosis: Gastro-esophageal reflux disease with esophagitis[ICD10: K21.0] [facility] CPT-4: 38853 05/25/2017 [id number]) 69902 EST. [facility] L[facility] IV Diagnosis: Essential (primary) hypertension[ICD10: I10] Diagnosis: Fracture of unspecified part of neck of left femur, subsequent encounter for closed fracture with routine healing[ICD10: S72.002D] Diagnosis: Generalized anxiety disorder[ICD10: F41.1] Anum Bradshaw MD, [facility] CPT-4: 65080 05/16/2017 ([id number]) 75247 EST. P ATIENT, LEVEL IV Diagnosis: Essential (primary) hypertension[ICD10: I10] Diagnosis: Mixed hyperlipidemia[ICD10: E78.2] Diagnosis: Generalized anxiety disorder[ICD10: F41.1] Anum Bradshaw MD, [facility] CPT-4: 28435 02/15/2017 ([id number]) 09909 EST. P ATIENT, LEVEL IV Diagnosis: Mixed hyperlipidemia[ICD10: E78.2] Diagnosis: Generalized anxiety disorder[ICD10: F41.1] Diagnosis: Essential (primary) hypertension[ICD10: I10] Diagnosis: Gastro-esophageal reflux disease with esophagitis[ICD10: K21.0] Anum Bradshaw MD, [facility] CPT-4: 39607 11/22/2016 [id number] EST. PATIENT, LEVEL III Diagnosis: Inflamed seborrheic keratosis[ICD10: L82.0] Kala Bradshaw MD, [facility] CPT-4: 61804 09/15/2016 ([id number]) 33024 EST. P ATIENT, LEVEL IV Diagnosis: Essential (primary) hypertension[ICD10: I10] Diagnosis: Mixed hyperlipidemia[ICD10: E78.2] Diagnosis: Generalized anxiety disorder[ICD10: F41.1] Anum Bradshaw MD, [facility] CPT-4: 21417 09/07/2016 ([id number]) 85888 EST. P ATIENT, LEVEL IV Diagnosis: Essential (primary) hypertension[ICD10: I10] Diagnosis: Frequency of micturition[ICD10: R35.0] Diagnosis: Age-related osteoporosis without current pathological fracture[ICD10: M81.0] Anum Bradshaw MD, [facility] CPT-4: 68258 07/06/2016 ([id number]) 78412 EST. P ATIENT, LEVEL IV Diagnosis: Essential (primary) hypertension[ICD10: I10] Diagnosis: Mixed hyperlipidemia[ICD10: E78.2] Diagnosis: Gastro-esophageal reflux disease with esophagitis[ICD10: K21.0] Anum Bradshaw MD, [facility] CPT-4: 79154 04/06/2016 [id number] EST. PATIENT, LEVEL IV Diagnosis: Essential (primary) hypertension[ICD10: I10] Diagnosis: Gastro-esophageal reflux disease with esophagitis[ICD10: K21.0] Kala Bradshaw MD, [facility] CPT-4: 56662 01/06/2016 ([id number]) 98909 EST. P ATIENT, LEVEL IV Diagnosis: Essential (primary) hypertension[ICD10: I10] Diagnosis: Gastro-esophageal reflux disease with esophagitis[ICD10: K21.0] Diagnosis: Other dietary vitamin B12 deficiency anemia[ICD10: D51.3] Diagnosis: Vitamin B12 deficiency anemia due to intrinsic factor deficiency[ICD10: D51.0] Diagnosis: Occlusion and stenosis of unspecified carotid artery[ICD10: I65.29] Anum Bradshaw MD, [facility] CPT-4: 39139 09/02/2015 ([id number]) 86815 EST. P ATIENT, LEVEL III Diagnosis: Carpal tunnel syndrome[ICD9: 354.0] Diagnosis: Inflamed seborrheic keratosis[ICD9: 702.11] Rosalinda Bradshaw MD, [facility] CPT-4: 84089 06/15/2015 ([id number]) OFFICE [facility] - LEVEL 4 Diagnosis: ESSENTIAL HYPERTENSION[ICD9: 401.9] Diagnosis: ESOPHAGEAL REFLUX[ICD9: 530.81] Diagnosis: HYPERLIPIDEMIA[ICD9: 272.4] Anum Bradshaw MD, [facility] CPT-4: 75021 03/04/2015 Plan of Care Planned Activity Notes [...] - healing. 09/13/2017 Appointment: Anum Bradshaw WPtel: [address] [place], [place] [phone] (15 min) Moderate 09/13/2017 Patient Education: Patient [...] improving. 06/21/2017 Appointment: Anum Bradshaw WPtel: [phone] [facility] (15 min) Moderate 06/21/2017 Patient Education: Patient Medication Summary Completed 06/21/2017 Visit Plan: Esophageal Reflux - the patient has been taking medication as directed and her symptoms are improved. Hip fracture - continue with supportive care, nonweight bearing. Underweight - increase protein intake, higher calorie diet, use wheelchair to decrease excessive caloric expenditure. 05/25/2017 [phone] (15 min) Moderate 05/25/2017 Patient Education: Patient [...] current medications. 05/16/2017 Appointment: Anum Bradshaw WPtel: [facility] (15 min) Moderate 05/16/2017 Patient Education: Patient [...] to medications. 02/15/2017 Appointment: Anum Bradshaw WPtel: [facility] (15 min) Moderate 02/15/2017 Patient Education: Patient Medication Summary Completed 02/15/2017 Patient Education: Hypertension Completed 02/15/2017 Care Plan: Referral Order SNOMED-CT : [id number] Pending 02/15/2017 Appointment: Anum Bradshaw WPtel: [facility] (15 min) Moderate 01/11/2017 Visit Plan: [...] treatment 11/22/2016 Appointment: Anum Bradshaw WPtel: [phone] [facility] [place] (15 min) Moderate 11/22/2016 Patient Education: Patient Medication Summary Completed 11/22/2016 Patient Education: Hypertension Completed 11/22/2016 Appointment: Rosalinda Bermudez WPtel: [phone] [phone] [place] (30 min) Complex 09/16/2016 [...] symptoms. 09/07/2016 Appointment: Anum Bradshaw WPtel: [phone] [facility] (15 min) Moderate 09/07/2016 Patient Education: Patient [...] negative 07/06/2016 Appointment: Anum Bradshaw WPtel: [phone] [facility] (15 min) Moderate 07/06/2016 Patient Education: [...] improving. 04/06/2016 App[facility]ment[phone] [facility] (15 min) Moderate 04/06/2016 Patient Education: [...] 09/02/2015 Care Plan: Referral Order SNOMED-CT : [id number] Ordered 09/02/2015 Appointment: Injection 06/19/2015 Patient Education: [...] 06/15/2015 Visit Plan: Hypertension - well con trojayeshed [...] not improving. 03/04/2015 Appointment: Anum Bradshaw [facility]Ptel[facility] [place] ([place] New Patient 03/04/2015 Patient Education: [...]
--- OUTSIDE RECORDS SUMMARY | 2019-12-29 11:38 | XMS REPORT | Continuity of Care Document ---
Author Organization Unknown Address Unknown Phone Unavailable Allergies Active Description Code Type Severity Reaction Onset Reported/Identified Relationship to Patient Clinical Status Yes NKANo Known Allergies NKA Miscellaneous Allergy Unknown N/A 04/03/2006 Yes pramoxine [id number] Drug Allergy Unknown N/A 10/06/2015 Yes bacitracin [id number] Drug Allerg y Unknown N/A 10/09/2015 Yes lidocaine [id number] Drug Allergy Unknown N/A 10/09/2015 Yes neomycin [id number] Drug Allergy Unknown N/A 10/09/2015 Yes polymyxin B [id number] Drug Aller gy Unknown N/A 10/09/2015 Yes bacitracin [id number] Drug Allerg y Mild RASH 10/15/2019 Yes lidocaine [id number] Drug Allergy Mild RASH 10/15/2019 Yes neomycin [id number] Drug Allergy Mild RASH 10/15/2019 Yes polymyxin B [id number] Drug Aller gy Mild RASH 10/15/2019 Yes pramoxine [id number] Drug Allergy Mild RASH 10/15/2019 Medications There is no data. Problems Date Dx Coded Attending Type Code Diagnosis Diagnosed By 08/24/1029 ZEV FARRAR MD Ot M75.21 BICIPITAL TENDINITIS, RIGHT SHOULDER 08/24/1335 LENI CARRINGTON, ZEV Kay Ot R53.1 WEAKNESS 10/01/2010 Ot 530.81 ESO PHAGEAL REFLUX 10/01/2010 Ot 789.06 ABD OMINAL PAIN, EPIGASTRIC 01/22/2013 JACKIE ROMO MD Ot 211. 1 BENIGN NEOPLASM STOMACH 01/22/2013 JACKIE ROMO MD Ot 530. 81 ESOPHAGEAL REFLUX 01/22/2013 JACKIE ROMO MD Ot 553. 3 DIAPHRAGMATIC HERNIA 03/05/2015 MYESHA NELSON Ot V76.12 10/09/2015 JACKIE ROMO MD Ot K21. 9 GASTRO-ESOPHAGEAL REFLUX DISEASE WITHOUT 10/09/2015 JACKIE ROMO MD Ot K31. 7 POLYP OF STOMACH AND DUODENUM 10/09/2015 DEMETRIUS CARRINGTON, JACKIE Harley Ot K44. 9 DIAPHRAGMATIC HERNIA WITHOUT OBSTRUCTION 02/16/2016 Ot V76.12 OTH SCREEN MAMMO- MALIGN NEOPLASM OF NICK 02/16/2016 Ot 401.9 HYPE RTENSION NOS 02/16/2016 Ot 553.3 DIAP HRAGMATIC HERNIA 02/16/2016 Ot 787.1 HEAR TBURN 02/16/2016 Ot V58.69 OTH MED,LT,CURRENT USE 02/16/2016 Ot V76.12 OTH SCREEN MAMMO- MALIGN NEOPLASM OF NICK 02/16/2016 TAMIR CASTILLO MD Ot 733.00 OSTEOPOROSIS NOS 02/16/2016 Ot V72.84 EXA M PRE- OPERATIVE NOS 02/16/2016 TAMIR CASTILLO MD Ot 733.90 BONE CARTILAGE DIS NOS 02/16/2016 TAMIR CASTILLO MD Ot V76.12 OTH SCREEN MAMMO-MALIGN NEOPLASM OF NICK 02/16/2016 TAMIR CASTILLO MD Ot V76.12 OTH SCREEN MAMMO-MALIGN NEOPLASM OF NICK 02/16/2016 MYESHA NELSON Ot V76.12 OTH SCREEN MAMMO-MALIGN NEOPLASM OF NICK 02/16/2016 DEMETRIUS CARRINGTON, JACKIE Harley Ot Z01.818 ENCOUNTER FOR OTHER PREPROCEDURAL EXAMIN 02/16/2016 Ot Z12.31 ENC NTR SCREEN MAMMOGRAM FOR MALIGNANT NE 02/16/2016 Ot Z12.31 ENC NTR SCREEN MAMMOGRAM FOR MALIGNANT NE 02/16/2016 Ot V76.12 OTH SCREEN MAMMO- MALIGN NEOPLASM OF NICK 02/16/2016 Ot 401.9 HYPE RTENSION NOS 02/16/2016 Ot 553.3 DIAP HRAGMATIC HERNIA 02/16/2016 Ot 787.1 HEAR TBURN 02/16/2016 Ot V58.69 OTH MED,LT,CURRENT USE 02/16/2016 Ot V76.12 OTH SCREEN MAMMO- MALIGN NEOPLASM OF NICK 02/16/2016 TAMIR CASTILLO MD Ot 733.00 OSTEOPOROSIS NOS 02/16/2016 Ot V72.84 EXA M PRE- OPERATIVE NOS 02/16/2016 TAMIR CASTILLO MD Ot 733.90 BONE CARTILAGE DIS NOS 02/16/2016 TAMIR CASTILLO MD Ot V76.12 OTH SCREEN MAMMO-MALIGN NEOPLASM OF NICK 02/16/2016 TAMIR CASTILLO MD Ot V76.12 OTH SCREEN MAMMO-MALIGN NEOPLASM OF NICK 02/16/2016 MYESHA NELSON Ot V76.12 OTH SCREEN MAMMO-MALIGN NEOPLASM OF NICK 02/16/2016 JACKIE ROMO MD Ot Z01.818 ENCOUNTER FOR OTHER PREPROCEDURAL EXAMIN 02/16/2016 Ot Z12.31 ENC NTR SCREEN MAMMOGRAM FOR MALIGNANT NE 02/17/2016 Ot Z12.31 ENC NTR SCREEN MAMMOGRAM FOR MALIGNANT NE 02/18/2016 Ot Z12.31 ENC NTR SCREEN MAMMOGRAM FOR MALIGNANT NE 02/22/2016 Ot Z12.31 ENC NTR SCREEN MAMMOGRAM FOR MALIGNANT NE 03/14/2016 Ot Z12.31 ENC NTR SCREEN MAMMOGRAM FOR MALIGNANT NE 07/14/2016 Ot 401.9 HYPE RTENSION NOS 07/14/2016 Ot 553.3 DIAP HRAGMATIC HERNIA 07/14/2016 Ot 787.1 HEAR TBURN 07/14/2016 Ot V58.69 OTH MED,LT,CURRENT USE 07/14/2016 Ot V76.12 OTH SCREEN MAMMO- MALIGN NEOPLASM OF NICK 07/14/2016 TMAIR CASTILLO MD Ot 733.00 OSTEOPOROSIS NOS 07/14/2016 Ot V72.84 EXA M PRE- OPERATIVE NOS 07/14/2016 TAMIR CASTILLO MD Ot 733.90 BONE CARTILAGE DIS NOS 07/14/2016 TAMIR CASTILLO MD Ot V76.12 OTH SCREEN MAMMO-MALIGN NEOPLASM OF NICK 07/14/2016 TAMIR CASTILLO MD Ot V76.12 OTH SCREEN MAMMO-MALIGN NEOPLASM OF NICK 07/14/2016 MYESHA NELSON Ot V76.12 OTH SCREEN MAMMO-MALIGN NEOPLASM OF NICK 07/14/2016 JACKIE ROMO MD Ot Z01.818 ENCOUNTER FOR OTHER PREPROCEDURAL EXAMIN 07/14/2016 Ot Z12.31 ENC NTR SCREEN MAMMOGRAM FOR MALIGNANT NE 07/14/2016 Ot V76.12 OTH SCREEN MAMMO- MALIGN NEOPLASM OF NICK 07/14/2016 TAMIR CASTILLO MD M Ot 733.00 OSTEOPOROSIS NOS 07/14/2016 Ot V72.84 EXA M PRE- OPERATIVE NOS 07/14/2016 ANNA CARRINGTON, TAMIR Barrett Ot 733.90 BONE CARTILAGE DIS NOS 07/14/2016 ANNA CARRINGTON, TAMIR Barrett Ot V76.12 OTH SCREEN MAMMO-MALIGN NEOPLASM OF NICK 07/14/2016 TAMIR CASTILLO MD Ot V76.12 OTH SCREEN MAMMO-MALIGN NEOPLASM OF NICK 07/14/2016 LESLIE MYESHA M SECURITY FLEX OFFICER Ot V76.12 OTH SCREEN MAMMO-MALIGN NEOPLASM OF NICK 07/14/2016 DEMETRIUS CARRINGTON, JACKIE Harley Ot Z01.818 ENCOUNTER FOR OTHER PREPROCEDURAL EXAMIN 07/14/2016 Ot Z12.31 ENC NTR SCREEN MAMMOGRAM FOR MALIGNANT NE 07/14/2016 ZEV FARRAR MD Ot M81.0 AGE-RELATED OSTEOPOROSIS W/O CURRENT PAT 07/15/2016 ZEV FARRAR MD Ot M81.0 AGE-RELATED OSTEOPOROSIS W/O CURRENT PAT 08/04/2016 ZEV FARRAR MD Ot M81.0 AGE-RELATED OSTEOPOROSIS W/O CURRENT PAT 11/10/2016 ZEV FARRAR MD Ot K56.5 INTESTINAL ADHESIONS W OBST (POSTPROCEDU 11/11/2016 ZEV FARRAR MD Ot E78.00 PURE HYPERCHOLESTEROLEMIA, UNSPECIFIED 11/11/2016 ZEV FARRAR MD Ot E83.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 11/11/2016 ZEV FARRAR MD Ot E87.6 HYPOKALEMIA 11/11/2016 ZEV FARRAR MD Ot I1 0 ESSENTIAL (PRIMARY) HYPERTENSION 11/11/2016 ZEV FARRAR MD Ot K21.9 GASTRO-ESOPHAGEAL REFLUX DISEASE WITHOUT 11/11/2016 ZEV FARRAR MD Ot K42.9 UMBILICAL HERNIA WITHOUT OBSTRUCTION OR 11/11/2016 ZEV FARRAR MD Ot K44.9 DIAPHRAGMATIC HERNIA WITHOUT OBSTRUCTION 11/11/2016 ZEV FARRAR MD Ot K56.2 VOLVULUS 11/11/2016 ZEV FARRAR MD Ot K56.5 INTESTINAL ADHESIONS W OBST (POSTPROCEDU 11/11/2016 LENI MD, ZEV A Ot M81.0 AGE-RELATED OSTEOPOROSIS W/O CURRENT PAT 11/11/2016 ZEV FARRAR MD Ot Q43.8 OTHER SPECIFIED CONGENITAL MALFORMATIONS 11/11/2016 ZEV FARRAR MD Ot R6 4 CACHEXIA 11/11/2016 ZEV FARRAR MD Ot E78.00 PURE HYPERCHOLESTEROLEMIA, UNSPECIFIED 11/11/2016 ZEV FARRAR MD Ot E83.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 11/11/2016 ZEV FARRAR MD Ot E87.6 HYPOKALEMIA 11/11/2016 ZEV FARRAR MD Ot I1 0 ESSENTIAL (PRIMARY) HYPERTENSION 11/11/2016 ZEV FARRAR MD Ot K21.9 GASTRO-ESOPHAGEAL REFLUX DISEASE WITHOUT 11/11/2016 ZEV FARRAR MD Ot K42.9 UMBILICAL HERNIA WITHOUT OBSTRUCTION OR 11/11/2016 ZEV FARRAR MD Ot K44.9 DIAPHRAGMATIC HERNIA WITHOUT OBSTRUCTION 11/11/2016 ZEV FARRAR MD Ot K56.2 VOLVULUS 11/11/2016 ZEV FARRAR MD Ot K56.5 INTESTINAL ADHESIONS W OBST (POSTPROCEDU 11/11/2016 ZEV FARRAR MD Ot M81.0 AGE-RELATED OSTEOPOROSIS W/O CURRENT PAT 11/11/2016 ZEV FARRAR MD Ot Q43.8 OTHER SPECIFIED CONGENITAL MALFORMATIONS 11/11/2016 ZEV FARRAR MD Ot R6 4 CACHEXIA 11/12/2016 ZEV FARRAR MD Ot E78.00 PURE HYPERCHOLESTEROLEMIA, UNSPECIFIED 11/12/2016 ZEV FARRAR MD Ot E83.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 11/12/2016 ZEV FARRAR MD Ot E87.6 HYPOKALEMIA 11/12/2016 ZEV FARRAR MD Ot I1 0 ESSENTIAL (PRIMARY) HYPERTENSION 11/12/2016 ZEV FARRAR MD Ot K21.9 GASTRO-ESOPHAGEAL REFLUX DISEASE WITHOUT 11/12/2016 ZEV FARRAR MD Ot K42.9 UMBILICAL HERNIA WITHOUT OBSTRUCTION OR 11/12/2016 ZEV FARRAR MD Ot K44.9 DIAPHRAGMATIC HERNIA WITHOUT OBSTRUCTION 11/12/2016 ZEV FARRAR MD Ot K56.2 VOLVULUS 11/12/2016 ZEV FARRAR MD Ot K56.5 INTESTINAL ADHESIONS W OBST (POSTPROCEDU 11/12/2016 ZEV FARRAR MD Ot M81.0 AGE-RELATED OSTEOPOROSIS W/O CURRENT PAT 11/12/2016 ZEV FARRAR MD Ot Q43.8 OTHER SPECIFIED CONGENITAL MALFORMATIONS 11/12/2016 ZEV FARRAR MD Ot R6 4 CACHEXIA 11/13/2016 ZEV FARRAR MD Ot E78.00 PURE HYPERCHOLESTEROLEMIA, UNSPECIFIED 11/13/2016 ZEV FARRAR MD Ot E83.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 11/13/2016 ZEV FARRAR MD Ot E87.6 HYPOKALEMIA 11/13/2016 ZEV FARRAR MD Ot I1 0 ESSENTIAL (PRIMARY) HYPERTENSION 11/13/2016 ZEV FARRAR MD Ot K21.9 GASTRO-ESOPHAGEAL REFLUX DISEASE WITHOUT 11/13/2016 ZEV FARRAR MD Ot K42.9 UMBILICAL HERNIA WITHOUT OBSTRUCTION OR 11/13/2016 ZEV FARRAR MD Ot K44.9 DIAPHRAGMATIC HERNIA WITHOUT OBSTRUCTION 11/13/2016 EZV FARRAR MD Ot K56.2 VOLVULUS 11/13/2016 ZEV FARRAR MD Ot K56.5 INTESTINAL ADHESIONS W OBST (POSTPROCEDU 11/13/2016 ZEV FARRAR MD Ot M81.0 AGE-RELATED OSTEOPOROSIS W/O CURRENT PAT 11/13/2016 ZEV FARRAR MD Ot Q43.8 OTHER SPECIFIED CONGENITAL MALFORMATIONS 11/13/2016 ZEV FARRAR MD Ot R6 4 CACHEXIA 11/14/2016 ZEV FARRAR MD Ot E78.00 PURE HYPERCHOLESTEROLEMIA, UNSPECIFIED 11/14/2016 ZEV FARRAR MD Ot E83.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 11/14/2016 ZEV FARRAR MD Ot E87.6 HYPOKALEMIA 11/14/2016 ZEV FARRAR MD Ot I1 0 ESSENTIAL (PRIMARY) HYPERTENSION 11/14/2016 ZEV FARRAR MD Ot K21.9 GASTRO-ESOPHAGEAL REFLUX DISEASE WITHOUT 11/14/2016 ZEV FARRAR MD Ot K42.9 UMBILICAL HERNIA WITHOUT OBSTRUCTION OR 11/14/2016 ZEV FARRAR MD Ot K44.9 DIAPHRAGMATIC HERNIA WITHOUT OBSTRUCTION 11/14/2016 ZEV FARRAR MD Ot K56.2 VOLVULUS 11/14/2016 ZEV FARRAR MD Ot K56.5 INTESTINAL ADHESIONS W OBST (POSTPROCEDU 11/14/2016 ZEV FARRAR MD Ot M81.0 AGE-RELATED OSTEOPOROSIS W/O CURRENT PAT 11/14/2016 ZEV FARRAR MD Ot Q43.8 OTHER SPECIFIED CONGENITAL MALFORMATIONS 11/14/2016 ZEV FARRAR MD Ot R6 4 CACHEXIA 11/14/2016 ZEV FARRAR MD Ot E78.00 PURE HYPERCHOLESTEROLEMIA, UNSPECIFIED 11/14/2016 ZEV FARRAR MD Ot E78.5 HYPERLIPIDEMIA, UNSPECIFIED 11/14/2016 ZEV FARRAR MD Ot E83.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 11/14/2016 ZEV FARRAR MD Ot E87.6 HYPOKALEMIA 11/14/2016 ZEV FARRAR MD Ot I1 0 ESSENTIAL (PRIMARY) HYPERTENSION 11/14/2016 ZEV FARRAR MD Ot K21.9 GASTRO-ESOPHAGEAL REFLUX DISEASE WITHOUT 11/14/2016 ZEV FARRAR MD Ot K42.9 UMBILICAL HERNIA WITHOUT OBSTRUCTION OR 11/14/2016 ZEV FARRAR MD Ot K44.9 DIAPHRAGMATIC HERNIA WITHOUT OBSTRUCTION 11/14/2016 ZEV FARRAR MD Ot K56.2 VOLVULUS 11/14/2016 ZEV FARRAR MD Ot K56.5 INTESTINAL ADHESIONS W OBST (POSTPROCEDU 11/14/2016 ZEV FARRAR MD Ot M81.0 AGE-RELATED OSTEOPOROSIS W/O CURRENT PAT 11/14/2016 ZEV FARRAR MD Ot Q43.8 OTHER SPECIFIED CONGENITAL MALFORMATIONS 11/14/2016 ZEV FARRAR MD Ot R6 4 CACHEXIA 02/14/2017 MYESHA NELSON SECURITY FLEX OFFICER Ot Z12.31 ENCNTR SCREEN MAMMOGRAM FOR MALIGNANT NE 02/14/2017 MYESHA NELSON SECURITY FLEX OFFICER Ot Z12.31 ENCNTR SCREEN MAMMOGRAM FOR MALIGNANT NE 03/09/2017 MYESHA NELSON SECURITY FLEX OFFICER Ot R92.2 INCONCLUSIVE MAMMOGRAM 03/09/2017 MYESHA NELSON SECURITY FLEX OFFICER Ot Z12.31 ENCNTR SCREEN MAMMOGRAM FOR MALIGNANT NE 04/21/2017 Ot V76.12 OTH SCREEN MAMMO- MALIGN NEOPLASM OF NICK 04/21/2017 TAMIR CASTILLO MD Ot 733.00 OSTEOPOROSIS NOS 04/21/2017 Ot V72.84 EXA M PRE- OPERATIVE NOS 04/21/2017 TAMIR CASTILLO MD Ot 733.90 BONE CARTILAGE DIS NOS 04/21/2017 TAMIR CASTILLO MD Ot V76.12 OTH SCREEN MAMMO-MALIGN NEOPLASM OF NICK 04/21/2017 TAMIR CASTILLO MD Ot V76.12 OTH SCREEN MAMMO-MALIGN NEOPLASM OF NICK 04/21/2017 MYESHA NELSON Ot V76.12 OTH SCREEN MAMMO-MALIGN NEOPLASM OF NICK 04/21/2017 DEMETRIUS CARRINGTON, JACKIE Harley Ot Z01.818 ENCOUNTER FOR OTHER PREPROCEDURAL EXAMIN 04/21/2017 Ot Z12.31 ENC NTR SCREEN MAMMOGRAM FOR MALIGNANT NE 04/21/2017 LENI CARRINGTON, ZEV Kay Ot M81.0 AGE-RELATED OSTEOPOROSIS W/O CURRENT PAT 04/21/2017 MYESHA NELSON SECURITY FLEX OFFICER Ot R92.2 INCONCLUSIVE MAMMOGRAM 04/21/2017 MYESHA NELSON SECURITY FLEX OFFICER Ot Z12.31 ENCNTR SCREEN MAMMOGRAM FOR MALIGNANT NE 04/25/2017 JONATHAN GARSIA MD Ot D64. 9 ANEMIA, UNSPECIFIED 04/25/2017 JONATHAN GARSIA MD Ot E78. 00 PURE HYPERCHOLESTEROLEMIA, UNSPECIFIED 04/25/2017 JONATHAN GARSIA MD Ot E78. 5 HYPERLIPIDEMIA, UNSPECIFIED 04/25/2017 JONATHAN GARSIA MD Ot E83. 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 04/25/2017 JONATHAN GARSIA MD Ot E83. 42 HYPOMAGNESEMIA 04/25/2017 JONATHAN GARSIA MD Ot E87. 1 HYPO-OSMOLALITY AND HYPONATREMIA 04/25/2017 JONATHAN GARSIA MD Ot E87. 6 HYPOKALEMIA 04/25/2017 JONATHAN GARSIA MD Ot F32. 9 MAJOR DEPRESSIVE DISORDER, SINGLE EPISOD 04/25/2017 JONATHAN GARSIA MD Ot I10 ESSENTIAL (PRIMARY) HYPERTENSION 04/25/2017 JONATHAN GARSIA MD Ot K21. 9 GASTRO-ESOPHAGEAL REFLUX DISEASE WITHOUT 04/25/2017 JONATHAN GARSIA MD Ot K44. 9 DIAPHRAGMATIC HERNIA WITHOUT OBSTRUCTION 04/25/2017 JONATHAN GARSIA MD Ot M19. 91 PRIMARY OSTEOARTHRITIS, UNSPECIFIED SITE 04/25/2017 JONATHAN GARSIA MD Ot M25.562 PAIN IN LEFT KNEE 04/25/2017 JONATHAN GARSIA MD Ot M80.052A AGE-REL OSTEOPOR W CURRENT PATH FRACTURE 04/25/2017 JONATHAN GARSIA MD Ot R07. 81 PLEURODYNIA 04/25/2017 JONATHAN GARSIA MD Ot R50. 9 FEVER, UNSPECIFIED 04/25/2017 JONATHAN GARSIA MD Ot R55 SYNCOPE AND COLLAPSE 04/25/2017 JONATHAN GARSIA MD Ot S00.83XA CONTUSION OF OTHER PART OF HEAD, INITIAL 04/25/2017 JONATHAN GARSIA MD Ot Z87. 09 PERSONAL HISTORY OF OTHER DISEASES OF TH 04/27/2017 KIYA PEREZ MD Ot E87.1 HYPO-OSMOLALITY AND HYPONATREMIA 04/27/2017 KIYA PEREZ MD Ot I10 ESSENTIAL (PRIMARY) HYPERTENSION 04/27/2017 KIYA PEREZ MD Ot K21.9 GASTRO-ESOPHAGEAL REFLUX DISEASE WITHOUT 04/27/2017 KIYA PEREZ MD Ot M19.9 1 PRIMARY OSTEOARTHRITIS, UNSPECIFIED SITE 04/27/2017 KIYA PEREZ MD Ot N39.0 URINARY TRACT INFECTION, SITE NOT SPECIF 04/27/2017 KIYA PEREZ MD Ot S72.012D UNSP INTRACAP FX LEFT FEMUR, SUBS FOR CL 04/27/2017 KIYA PEREZ MD Ot W19.XXXD UNSPECIFIED FALL, SUBSEQUENT ENCOUNTER 04/27/2017 KIYA PEREZ MD Ot Y92.[address] IN [facility] NON-INSTITUT (PRIVATE 05/01/2017 KIYA PEREZ MD Ot E87.1 HYPO-OSMOLALITY AND HYPONATREMIA 05/01/2017 KIYA PEREZ MD Ot I10 ESSENTIAL (PRIMARY) HYPERTENSION 05/01/2017 KIYA PEREZ MD Ot K21.9 GASTRO-ESOPHAGEAL REFLUX DISEASE WITHOUT 05/01/2017 KIYA PEREZ MD Ot M19.9 1 PRIMARY OSTEOARTHRITIS, UNSPECIFIED SITE 05/01/2017 KIYA PEREZ MD Ot N39.0 URINARY TRACT INFECTION, SITE NOT SPECIF 05/01/2017 KIYA PEREZ MD Ot S72.012D UNSP INTRACAP FX LEFT FEMUR, SUBS FOR CL 05/01/2017 KIYA PEREZ MD Ot W19.XXXD UNSPECIFIED FALL, SUBSEQUENT ENCOUNTER 05/01/2017 ANA CARRINGTON KIYA E Ot Y92.[address] [facility]PRIVATE 05/01/2017 ANA CARRINGTON KIYA E Ot E87.1 HYPO-OSMOLALITY AND HYPONATREMIA 05/01/2017 ANA CARRINGTON KIYA E Ot I10 ESSENTIAL (PRIMARY) HYPERTENSION 05/01/2017 TAMMY PEREZ MDIC E Ot K21.9 GASTRO-ESOPHAGEAL REFLUX DISEASE WITHOUT 05/01/2017 ANA CARRINGTON KIYA E Ot M19.9 1 PRIMARY OSTEOARTHRITIS, UNSPECIFIED SITE 05/01/2017 TAMMY PEREZ MDIC E Ot N39.0 URINARY TRACT INFECTION, SITE NOT SPECIF 05/01/2017 TAMMY PEREZ MDIC E Ot S72.012D UNSP INTRACAP FX LEFT FEMUR, SUBS FOR CL 05/01/2017 TAMMY PEREZ MDIC E Ot W19.XXXD UNSPECIFIED FALL, SUBSEQUENT ENCOUNTER 05/01/2017 TAMMY PEREZ MDIC E Ot Y92.[address] [facility] ([facility]IVATE 05/01/2017 KIYA PEREZ MD E Ot E87.1 HYPO-OSMOLALITY AND HYPONATREMIA 05/01/2017 ANA CARRINGTON KIYA E Ot I10 ESSENTIAL (PRIMARY) HYPERTENSION 05/01/2017 TAMMY PEREZ MDIC E Ot K21.9 GASTRO-ESOPHAGEAL REFLUX DISEASE WITHOUT 05/01/2017 TAMMY PEREZ MDIC E Ot M19.9 1 PRIMARY OSTEOARTHRITIS, UNSPECIFIED SITE 05/01/2017 TAMMY PEREZ MDIC E Ot N39.0 URINARY TRACT INFECTION, SITE NOT SPECIF 05/01/2017 TAMMY PEREZ MDIC E Ot S72.012D UNSP INTRACAP FX LEFT FEMUR, SUBS FOR CL 05/01/2017 ANA CARRINGTON KIYA E Ot W19.XXXD UNSPECIFIED FALL, SUBSEQUENT ENCOUNTER 05/01/2017 ANA CARRINGTON KIYA E Ot Y92.[address] [facility] 05/08/2017 ANA CARRINGTON KIYA E Ot E87.1 HYPO-OSMOLALITY AND HYPONATREMIA 05/08/2017 ANA CARRINGTON KIYA E Ot I10 ESSENTIAL (PRIMARY) HYPERTENSION 05/08/2017 TAMMY PEREZ MDIC E Ot K21.9 GASTRO-ESOPHAGEAL REFLUX DISEASE WITHOUT 05/08/2017 ANA CARRINGTON KIYA E Ot M19.9 1 PRIMARY OSTEOARTHRITIS, UNSPECIFIED SITE 05/08/2017 KIYA PEREZ MD E Ot N39.0 URINARY TRACT INFECTION, SITE NOT SPECIF 05/08/2017 KIYA PEREZ MD Ot S72.012D UNSP INTRACAP FX LEFT FEMUR, SUBS FOR CL 05/08/2017 TAMMY PEREZ MDIC E Ot W19.XXXD UNSPECIFIED FALL, SUBSEQUENT ENCOUNTER 05/08/2017 KIYA PEREZ MD E Ot Y92.[address] IN [facility] NON-INSTITUT (PRIVATE 05/09/2017 KIYA PEREZ MD E Ot D64.9 ANEMIA, UNSPECIFIED 05/09/2017 KIYA PEREZ MD E Ot E78.5 HYPERLIPIDEMIA, UNSPECIFIED 05/09/2017 TAMMY PEREZ MDIC E Ot E83.3 9 OTHER DISORDERS OF PHOSPHORUS METABOLISM 05/09/2017 KIYA PEREZ MD E Ot E83.4 2 HYPOMAGNESEMIA 05/09/2017 KIYA PEREZ MD E Ot E87.1 HYPO-OSMOLALITY AND HYPONATREMIA 05/09/2017 KIYA PEREZ MD E Ot E87.6 HYPOKALEMIA 05/09/2017 TAMMY PEREZ MDIC E Ot F32.9 MAJOR DEPRESSIVE DISORDER, SINGLE EPISOD 05/09/2017 TAMMY PEREZ MDIC E Ot I10 ESSENTIAL (PRIMARY) HYPERTENSION 05/09/2017 TAMMY PEREZ MDIC E Ot K21.9 GASTRO-ESOPHAGEAL REFLUX DISEASE WITHOUT 05/09/2017 TAMMY PEREZ MDIC E Ot M19.9 1 PRIMARY OSTEOARTHRITIS, UNSPECIFIED SITE 05/09/2017 KIYA PEREZ MD E Ot M80.052D AGE-REL OSTEOPOR W CRNT PATH FX, L FEMR, 05/09/2017 TAMMY PEREZ MDIC E Ot N39.0 URINARY TRACT INFECTION, SITE NOT SPECIF 05/09/2017 KIYA PEREZ MD E Ot S72.012D UNSP INTRACAP FX LEFT FEMUR, SUBS FOR CL 05/09/2017 KIYA PEREZ MD Ot W19.XXXD UNSPECIFIED FALL, SUBSEQUENT ENCOUNTER 05/09/2017 KIYA PEREZ MD E Ot Y92.[address] IN [facility] NON-INSTITUT (PRIVATE 01/22/2018 ZEV FARRAR MD Ot M75.21 BICIPITAL TENDINITIS, RIGHT SHOULDER 02/01/2018 ZEV FARRAR MD Ot M75.21 BICIPITAL TENDINITIS, RIGHT SHOULDER 02/21/2018 LENI CARRINGTON, ZEV Kay Ot Z12.31 ENCNTR SCREEN MAMMOGRAM FOR MALIGNANT NE 02/27/2018 LENI CARRINGTON, ZEV Kay Ot Z12.31 ENCNTR SCREEN MAMMOGRAM FOR MALIGNANT NE 03/13/2018 LENI CARRINGTON, ZEV Kay Ot Z12.31 ENCNTR SCREEN MAMMOGRAM FOR MALIGNANT NE 09/24/2018 LENI CARRINGTON, ZEV Kay Ot R53.1 WEAKNESS 09/24/2018 LENI CARRINGTON, ZEV Kay Ot R53.1 WEAKNESS 10/05/2018 LENI CARRINGTON, ZEV Kay Ot R53.1 WEAKNESS 02/22/2019 RUTH ZUNIGA LAB SUPPORT TECHNICIAN Ot Z12.31 ENCNTR SCREEN MAMMOGRAM FOR MALIGNANT NE 03/18/2019 RUTH ZUNIGA LAB SUPPORT TECHNICIAN Ot Z12.31 ENCNTR SCREEN MAMMOGRAM FOR MALIGNANT NE 10/15/2019 JACKIE ROMO MD Ot Z01.818 ENCOUNTER FOR OTHER PREPROCEDURAL EXAMIN 10/16/2019 JACKIE ROMO MD Ot Z01.818 ENCOUNTER FOR OTHER PREPROCEDURAL EXAMIN 10/18/2019 JACKIE ROMO MD Ot E78. 5 HYPERLIPIDEMIA, UNSPECIFIED 10/18/2019 JACKIE ROMO MD Ot K21. 9 GASTRO-ESOPHAGEAL REFLUX DISEASE WITHOUT 10/18/2019 JACKIE ROMO MD Ot K25. 9 GASTRIC ULCER, UNSP ACUTE OR CHRONIC, 10/18/2019 JACKIE ROMO MD Ot K31. 7 POLYP OF STOMACH AND DUODENUM 10/18/2019 JACKIE ROMO MD Ot K31. 89 OTHER DISEASES OF STOMACH AND DUODENUM 10/18/2019 JACKIE ROMO MD Ot K44. 9 DIAPHRAGMATIC HERNIA WITHOUT OBSTRUCTION 10/18/2019 JACKIE ROMO MD Ot Z87. 19 PERSONAL HISTORY OF OTHER DISEASES OF TH 10/25/2019 JACKIE ROMO MD Ot E78. 5 HYPERLIPIDEMIA, UNSPECIFIED 10/25/2019 JACKIE ROMO MD Ot K21. 9 GASTRO-ESOPHAGEAL REFLUX DISEASE WITHOUT 10/25/2019 JACKIE ROMO MD Ot K25. 9 GASTRIC ULCER, UNSP ACUTE OR CHRONIC, 10/25/2019 JACKIE ROMO MD Ot K31. 7 POLYP OF STOMACH AND DUODENUM 10/25/2019 JACKIE ROMO MD Ot K31. 89 OTHER DISEASES OF STOMACH AND DUODENUM 10/25/2019 JACKIE ROMO MD Ot K44. 9 DIAPHRAGMATIC HERNIA WITHOUT OBSTRUCTION 10/25/2019 JACKIE ROMO MD Ot Z87. 19 PERSONAL HISTORY OF OTHER DISEASES OF Procedures Code Description Performed By Per formed On [id number] RE LEASE SMALL INTESTINE, OPEN APPROACH 11/07/2016 [id number] RE LEASE CECUM, OPEN APPROACH 11/07/2016 [id number] RE LEASE SIGMOID COLON, OPEN APPROACH 11/07/2016 [id number] IN SERTION OF INT FIX INTO L UP FEMUR, PE 04/22/2017 Results Test Result Range Complete blood count (CBC) with automate d white blood cell (WBC) differential - 11/06/16 22:44 Blood leukocytes automated count (number/volume) 10.3 10*3/uL 4.3-11.0 Blood erythrocytes automated count (number/volume) 4.35 10*6/uL 4.35-5.85 Venous blood hemoglobin measurement (mass/volume) 13.7 g/dL 11.5-16.0 Blood hematocrit (volume fraction) 39 % 35-52 Automated erythrocyte mean corpuscular volume 89 [ foz_us] 80-99 Automated erythrocyte mean corpuscular h emoglobin (mass per erythrocyte) 32 pg 25-34 Automated erythrocyte mean corpuscular h emoglobin concentration measurement (mass/volume) 35 g/dL 32-36 Automated erythrocyte distribution width ratio 13. 5 % 10.0- 14.5 Automated blood platelet count (count/volume) 315 10*3/uL 130-400 Automated blood platelet mean volume measurement 9.0 [foz_us] 7.4-10.4 Automated blood neutrophils/100 leukocytes 88 % 42-75 Automated blood lymphocytes/100 leukocytes 5 % 12-44 Blood monocytes/100 leukocytes 5 % 0-12 Automated blood eosinophils/100 leukocytes 1 % 0-10 Automated blood basophils/100 leukocytes 0 % 0-10 Blood neutrophils automated count (number/volume) 9.1 10*3 1.8-7.8 Blood lymphocytes automated count (number/volume) 0.5 10*3 1.0-4.0 Blood monocytes automated count (number/volume) 0. 5 10*3 0.0-1.0 Automated eosinophil count 0.1 10*3/uL 0 .0-0.3 Automated blood basophil count (count/volume) 0.0 10*3/uL 0.0-0.1 Comprehensive metabolic panel - 11/06/16 22:44 Serum or plasma sodium measurement (moles/volume) 134 mmol/L 135-145 Serum or plasma potassium measurement (moles/volume) 3.1 mmol/L 3.6-5.0 Serum or plasma chloride measurement (moles/volume) 95 mmol/L 98-107 Carbon dioxide 23 mmol/L 21-32 Serum or plasma anion gap determination (moles/volume) 16 mmol/L 5-14 Serum or plasma urea nitrogen measurement (mass/volume ) 16 mg/dL 7-18 Serum or plasma creatinine measurement (mass/volume) 0.83 mg/dL 0.60-1.30 Serum or plasma urea nitrogen/creatinine mass ratio 19 NRG Serum or plasma creatinine measurement w ith calculation of estimated glomerular filtration rate > NRG Serum or plasma glucose measurement (mass/volume) 116 mg/dL 70-105 Serum or plasma calcium measurement (mass/volume) 9.8 mg/dL 8.5-10.1 Serum or plasma total bilirubin measurement (mass/volu me) 0.7 mg/dL 0.1-1.0 Serum or plasma alkaline phosphatase jaci surement (enzymatic activity/volume) 66 U/L 40-136 Serum or plasma aspartate aminotransfera se measurement (enzymatic activity/volume) 33 U/L 5-34 Serum or plasma alanine aminotransferase measurement (enzymatic activity/volume) 21 U/L 0-55 Serum or plasma protein measurement (mass/volume) 7.4 g/dL 6.4-8.2 Serum or plasma albumin measurement (mass/volume) 4.6 g/dL 3.2-4.5 Magnesium - 11/06/16 22:44 Magnesium 2.0 mg/dL 1.8-2.4 Serum or plasma troponin i.cardiac measu rement (mass/volume) - 11/06/16 22:49 Serum or plasma troponin i.cardiac measurement (mass/v olume) < ng/mL <0.30 Complete urinalysis with reflex to cultu re - 11/06/16 22:58 Urine color determination YELLOW NRG Urine clarity determination CLEAR NR G Urine pH measurement by test strip 7 5-9 Specific gravity of urine by test strip 1.020 1.016-1.022 Urine protein assay by test strip, semi-quantitative NEGATIVE NEGATIVE Urine glucose detection by automated test strip NE GATIVE NEGATIVE Erythrocytes detection in urine sediment by light micr oscopy 3+ NEGATIVE Urine ketones detection by automated test strip 1+ NEGATIVE Urine nitrite detection by test strip NEGATIVE NEGATIVE Urine total bilirubin detection by test strip NEGA TIVE NEGATIVE Urine urobilinogen measurement by automated test strip (mass/volume) NORMAL NORMAL Urine leukocyte esterase detection by dipstick NEG ATIVE NEGATIVE Automated urine sediment erythrocyte cou nt by microscopy (number/high power field) [HPF] NRG Automated urine sediment leukocyte count by microscopy (number/high power field) NONE NRG Bacteria detection in urine sediment by light microsco py NEGATIVE NRG Squamous epithelial cells detection in u rine sediment by light microscopy 5-10 NRG Crystals detection in urine sediment by light microsco py NONE NRG Casts detection in urine sediment by light microscopy NONE NRG Mucus detection in urine sediment by light microscopy MODERATE NRG Complete urinalysis with reflex to culture NO NRG Complete blood count (CBC) with automate d white blood cell (WBC) differential - 11/07/16 04:32 Blood leukocytes automated count (number/volume) 9.6 10*3/uL 4.3-11.0 Blood erythrocytes automated count (number/volume) 4.16 10*6/uL 4.35-5.85 Venous blood hemoglobin measurement (mass/volume) 13.0 g/dL 11.5-16.0 Blood hematocrit (volume fraction) 37 % 35-52 Automated erythrocyte mean corpuscular volume 90 [ foz_us] 80-99 Automated erythrocyte mean corpuscular h emoglobin (mass per erythrocyte) 31 pg 25-34 Automated erythrocyte mean corpuscular h emoglobin concentration measurement (mass/volume) 35 g/dL 32-36 Automated erythrocyte distribution width ratio 13. 5 % 10.0- 14.5 Automated blood platelet count (count/volume) 304 10*3/uL 130-400 Automated blood platelet mean volume measurement 9.2 [foz_us] 7.4-10.4 Automated blood neutrophils/100 leukocytes 92 % 42-75 Automated blood lymphocytes/100 leukocytes 5 % 12-44 Blood monocytes/100 leukocytes 3 % 0-12 Automated blood eosinophils/100 leukocytes 0 % 0-10 Automated blood basophils/100 leukocytes 0 % 0-10 Blood neutrophils automated count (number/volume) 8.8 10*3 1.8-7.8 Blood lymphocytes automated count (number/volume) 0.5 10*3 1.0-4.0 Blood monocytes automated count (number/volume) 0. 3 10*3 0.0-1.0 Automated eosinophil count 0.0 10*3/uL 0 .0-0.3 Automated blood basophil count (count/volume) 0.0 10*3/uL 0.0-0.1 Comprehensive metabolic panel - 11/07/16 04:32 Serum or plasma sodium measurement (moles/volume) 133 mmol/L 135-145 Serum or plasma potassium measurement (moles/volume) 3.3 mmol/L 3.6-5.0 Serum or plasma chloride measurement (moles/volume) 96 mmol/L 98-107 Carbon dioxide 23 mmol/L 21-32 Serum or plasma anion gap determination (moles/volume) 14 mmol/L 5-14 Serum or plasma urea nitrogen measurement (mass/volume ) 15 mg/dL 7-18 Serum or plasma creatinine measurement (mass/volume) 0.76 mg/dL 0.60-1.30 Serum or plasma urea nitrogen/creatinine mass ratio 20 NRG Serum or plasma creatinine measurement w ith calculation of estimated glomerular filtration rate > NRG Serum or plasma glucose measurement (mass/volume) 129 mg/dL 70-105 Serum or plasma calcium measurement (mass/volume) 9.0 mg/dL 8.5-10.1 Serum or plasma total bilirubin measurement (mass/volu me) 0.8 mg/dL 0.1-1.0 Serum or plasma alkaline phosphatase jaci surement (enzymatic activity/volume) 63 U/L 40-136 Serum or plasma aspartate aminotransfera se measurement (enzymatic activity/volume) 32 U/L 5-34 Serum or plasma alanine aminotransferase measurement (enzymatic activity/volume) 19 U/L 0-55 Serum or plasma protein measurement (mass/volume) 6.9 g/dL 6.4-8.2 Serum or plasma albumin measurement (mass/volume) 4.3 g/dL 3.2-4.5 Blood type T Indirect antibody screen pa laura - 11/07/16 10:58 ABO+Rh group BP NRG Transfusion band number [id number] NRG Blood group antibody screen NEGATIVE NR G Complete blood count (CBC) with automate d white blood cell (WBC) differential - 11/08/16 14:10 Blood leukocytes automated count (number/volume) 11.2 10*3/uL 4.3-11.0 Blood erythrocytes automated count (number/volume) 3.98 10*6/uL 4.35-5.85 Venous blood hemoglobin measurement (mass/volume) 12.5 g/dL 11.5-16.0 Blood hematocrit (volume fraction) 37 % 35-52 Automated erythrocyte mean corpuscular volume 92 [ foz_us] 80-99 Automated erythrocyte mean corpuscular h emoglobin (mass per erythrocyte) 31 pg 25-34 Automated erythrocyte mean corpuscular h emoglobin concentration measurement (mass/volume) 34 g/dL 32-36 Automated erythrocyte distribution width ratio 14. 5 % 10.0- 14.5 Automated blood platelet count (count/volume) 242 10*3/uL 130-400 Automated blood platelet mean volume measurement 9.3 [foz_us] 7.4-10.4 Automated blood neutrophils/100 leukocytes 88 % 42-75 Automated blood lymphocytes/100 leukocytes 5 % 12-44 Blood monocytes/100 leukocytes 7 % 0-12 Automated blood eosinophils/100 leukocytes 0 % 0-10 Automated blood basophils/100 leukocytes 0 % 0-10 Blood neutrophils automated count (number/volume) 9.9 10*3 1.8-7.8 Blood lymphocytes automated count (number/volume) 0.5 10*3 1.0-4.0 Blood monocytes automated count (number/volume) 0. 8 10*3 0.0-1.0 Automated eosinophil count 0.0 10*3/uL 0 .0-0.3 Automated blood basophil count (count/volume) 0.0 10*3/uL 0.0-0.1 Blood manual differential performed dete ction - 11/08/16 14:10 Blood monocytes/100 leukocytes 1 % NRG Manual blood segmented neutrophils/100 leukocytes 89 % NRG Blood band neutrophils/100 leukocytes 4 % NRG Manual blood lymphocytes/100 leukocytes 6 % NRG Manual eosinophils/100 leukocytes in nose 0 % NRG Manual blood basophils/100 leukocytes 0 % NRG Blood erythrocyte morphology finding identification [facility] Comprehensive metabolic panel - 11/08/16 14:10 Serum or plasma sodium measurement (moles/volume) 139 mmol/L 135-145 Serum or plasma potassium measurement (moles/volume) 3.5 mmol/L 3.6-5.0 Serum or plasma chloride measurement (moles/volume) 106 mmol/L 98-107 Carbon dioxide 21 mmol/L 21-32 Serum or plasma anion gap determination (moles/volume) 12 mmol/L 5-14 Serum or plasma urea nitrogen measurement (mass/volume ) 17 mg/dL 7-18 Serum or plasma creatinine measurement (mass/volume) 0.66 mg/dL 0.60-1.30 Serum or plasma urea nitrogen/creatinine mass ratio 26 NRG Serum or plasma creatinine measurement w ith calculation of estimated glomerular filtration rate > NRG Serum or plasma glucose measurement (mass/volume) 88 mg/dL 70-105 Serum or plasma calcium measurement (mass/volume) 8.0 mg/dL 8.5-10.1 Serum or plasma total bilirubin measurement (mass/volu me) 1.0 mg/dL 0.1-1.0 Serum or plasma alkaline phosphatase jaci surement (enzymatic activity/volume) 49 U/L 40-136 Serum or plasma aspartate aminotransfera se measurement (enzymatic activity/volume) 29 U/L 5-34 Serum or plasma alanine aminotransferase measurement (enzymatic activity/volume) 12 U/L 0-55 Serum or plasma protein measurement (mass/volume) 5.8 g/dL 6.4-8.2 Serum or plasma albumin measurement (mass/volume) 3.4 g/dL 3.2-4.5 Complete blood count (CBC) with automate d white blood cell (WBC) differential - 11/09/16 04:00 Blood leukocytes automated count (number/volume) 7.0 10*3/uL 4.3-11.0 Blood erythrocytes automated count (number/volume) 3.53 10*6/uL 4.35-5.85 Venous blood hemoglobin measurement (mass/volume) 11.0 g/dL 11.5-16.0 Blood hematocrit (volume fraction) 33 % 35-52 Automated erythrocyte mean corpuscular volume 93 [ foz_us] 80-99 Automated erythrocyte mean corpuscular h emoglobin (mass per erythrocyte) 31 pg 25-34 Automated erythrocyte mean corpuscular h emoglobin concentration measurement (mass/volume) 33 g/dL 32-36 Automated erythrocyte distribution width ratio 14. 7 % 10.0- 14.5 Automated blood platelet count (count/volume) 237 10*3/uL 130-400 Automated blood platelet mean volume measurement 9.3 [foz_us] 7.4-10.4 Automated blood neutrophils/100 leukocytes 86 % 42-75 Automated blood lymphocytes/100 leukocytes 5 % 12-44 Blood monocytes/100 leukocytes 8 % 0-12 Automated blood eosinophils/100 leukocytes 1 % 0-10 Automated blood basophils/100 leukocytes 0 % 0-10 Blood neutrophils automated count (number/volume) 6.0 10*3 1.8-7.8 Blood lymphocytes automated count (number/volume) 0.4 10*3 1.0-4.0 Blood monocytes automated count (number/volume) 0. 6 10*3 0.0-1.0 Automated eosinophil count 0.0 10*3/uL 0 .0-0.3 Automated blood basophil count (count/volume) 0.0 10*3/uL 0.0-0.1 Comprehensive metabolic panel - 11/09/16 04:00 Serum or plasma sodium measurement (moles/volume) 143 mmol/L 135-145 Serum or plasma potassium measurement (moles/volume) 3.0 mmol/L 3.6-5.0 Serum or plasma chloride measurement (moles/volume) 109 mmol/L 98-107 Carbon dioxide 19 mmol/L 21-32 Serum or plasma anion gap determination (moles/volume) 15 mmol/L 5-14 Serum or plasma urea nitrogen measurement (mass/volume ) 17 mg/dL 7-18 Serum or plasma creatinine measurement (mass/volume) 0.64 mg/dL 0.60-1.30 Serum or plasma urea nitrogen/creatinine mass ratio 27 NRG Serum or plasma creatinine measurement w ith calculation of estimated glomerular filtration rate > NRG Serum or plasma glucose measurement (mass/volume) 70 mg/dL 70-105 Serum or plasma calcium measurement (mass/volume) 7.9 mg/dL 8.5-10.1 Serum or plasma total bilirubin measurement (mass/volu me) 0.8 mg/dL 0.1-1.0 Serum or plasma alkaline phosphatase jaci surement (enzymatic activity/volume) 47 U/L 40-136 Serum or plasma aspartate aminotransfera se measurement (enzymatic activity/volume) 23 U/L 5-34 Serum or plasma alanine aminotransferase measurement (enzymatic activity/volume) 11 U/L 0-55 Serum or plasma protein measurement (mass/volume) 5.4 g/dL 6.4-8.2 Serum or plasma albumin measurement (mass/volume) 3.2 g/dL 3.2-4.5 Serum or plasma phosphate measurement (m ass/volume) - 11/09/16 04:00 Serum or plasma phosphate measurement (mass/volume) 2.2 mg/dL 2.3-4.7 Magnesium - 11/09/16 04:00 Magnesium 1.8 mg/dL 1.8-2.4 Serum or plasma potassium measurement (m oles/volume) - 11/09/16 14:00 Serum or plasma potassium measurement (moles/volume) 3.5 mmol/L 3.6-5.0 Complete blood count (CBC) with automate d white blood cell (WBC) differential - 11/10/16 04:13 Blood leukocytes automated count (number/volume) 7.3 10*3/uL 4.3-11.0 Blood erythrocytes automated count (number/volume) 3.87 10*6/uL 4.35-5.85 Venous blood hemoglobin measurement (mass/volume) 12.2 g/dL 11.5-16.0 Blood hematocrit (volume fraction) 36 % 35-52 Automated erythrocyte mean corpuscular volume 93 [ foz_us] 80-99 Automated erythrocyte mean corpuscular h emoglobin (mass per erythrocyte) 32 pg 25-34 Automated erythrocyte mean corpuscular h emoglobin concentration measurement (mass/volume) 34 g/dL 32-36 Automated erythrocyte distribution width ratio 15. 0 % 10.0- 14.5 Automated blood platelet count (count/volume) 271 10*3/uL 130-400 Automated blood platelet mean volume measurement 9.4 [foz_us] 7.4-10.4 Automated blood neutrophils/100 leukocytes 90 % 42-75 Automated blood lymphocytes/100 leukocytes 4 % 12-44 Blood monocytes/100 leukocytes 6 % 0-12 Automated blood eosinophils/100 leukocytes 0 % 0-10 Automated blood basophils/100 leukocytes 0 % 0-10 Blood neutrophils automated count (number/volume) 6.6 10*3 1.8-7.8 Blood lymphocytes automated count (number/volume) 0.3 10*3 1.0-4.0 Blood monocytes automated count (number/volume) 0. 5 10*3 0.0-1.0 Automated eosinophil count 0.0 10*3/uL 0 .0-0.3 Automated blood basophil count (count/volume) 0.0 10*3/uL 0.0-0.1 Comprehensive metabolic panel - 11/10/16 04:13 Serum or plasma sodium measurement (moles/volume) 145 mmol/L 135-145 Serum or plasma potassium measurement (moles/volume) 3.3 mmol/L 3.6-5.0 Serum or plasma chloride measurement (moles/volume) 113 mmol/L 98-107 Carbon dioxide 14 mmol/L 21-32 Serum or plasma anion gap determination (moles/volume) 18 mmol/L 5-14 Serum or plasma urea nitrogen measurement (mass/volume ) 12 mg/dL 7-18 Serum or plasma creatinine measurement (mass/volume) 0.66 mg/dL 0.60-1.30 Serum or plasma urea nitrogen/creatinine mass ratio 18 NRG Serum or plasma creatinine measurement w ith calculation of estimated glomerular filtration rate > NRG Serum or plasma glucose measurement (mass/volume) 72 mg/dL 70-105 Serum or plasma calcium measurement (mass/volume) 8.1 mg/dL 8.5-10.1 Serum or plasma total bilirubin measurement (mass/volu me) 0.6 mg/dL 0.1-1.0 Serum or plasma alkaline phosphatase jaci surement (enzymatic activity/volume) 57 U/L 40-136 Serum or plasma aspartate aminotransfera se measurement (enzymatic activity/volume) 28 U/L 5-34 Serum or plasma alanine aminotransferase measurement (enzymatic activity/volume) 13 U/L 0-55 Serum or plasma protein measurement (mass/volume) 6.1 g/dL 6.4-8.2 Serum or plasma albumin measurement (mass/volume) 3.5 g/dL 3.2-4.5 Serum or plasma phosphate measurement (m ass/volume) - 11/10/16 04:13 Serum or plasma phosphate measurement (mass/volume) 1.8 mg/dL 2.3-4.7 Magnesium - 11/10/16 04:13 Magnesium 1.8 mg/dL 1.8-2.4 Complete blood count (CBC) with automate d white blood cell (WBC) differential - 11/11/16 03:38 Blood leukocytes automated count (number/volume) 6.7 10*3/uL 4.3-11.0 Blood erythrocytes automated count (number/volume) 3.63 10*6/uL 4.35-5.85 Venous blood hemoglobin measurement (mass/volume) 11.2 g/dL 11.5-16.0 Blood hematocrit (volume fraction) 33 % 35-52 Automated erythrocyte mean corpuscular volume 91 [ foz_us] 80-99 Automated erythrocyte mean corpuscular h emoglobin (mass per erythrocyte) 31 pg 25-34 Automated erythrocyte mean corpuscular h emoglobin concentration measurement (mass/volume) 34 g/dL 32-36 Automated erythrocyte distribution width ratio 14. 8 % 10.0- 14.5 Automated blood platelet count (count/volume) 247 10*3/uL 130-400 Automated blood platelet mean volume measurement 9.1 [foz_us] 7.4-10.4 Automated blood neutrophils/100 leukocytes 79 % 42-75 Automated blood lymphocytes/100 leukocytes 8 % 12-44 Blood monocytes/100 leukocytes 7 % 0-12 Automated blood eosinophils/100 leukocytes 6 % 0-10 Automated blood basophils/100 leukocytes 0 % 0-10 Blood neutrophils automated count (number/volume) 5.3 10*3 1.8-7.8 Blood lymphocytes automated count (number/volume) 0.6 10*3 1.0-4.0 Blood monocytes automated count (number/volume) 0. 5 10*3 0.0-1.0 Automated eosinophil count 0.4 10*3/uL 0 .0-0.3 Automated blood basophil count (count/volume) 0.0 10*3/uL 0.0-0.1 Comprehensive metabolic panel - 11/11/16 03:38 Serum or plasma sodium measurement (moles/volume) 143 mmol/L 135-145 Serum or plasma potassium measurement (moles/volume) 3.1 mmol/L 3.6-5.0 Serum or plasma chloride measurement (moles/volume) 111 mmol/L 98-107 Carbon dioxide 22 mmol/L 21-32 Serum or plasma anion gap determination (moles/volume) 10 mmol/L 5-14 Serum or plasma urea nitrogen measurement (mass/volume ) 8 mg/dL 7-18 Serum or plasma creatinine measurement (mass/volume) 0.55 mg/dL 0.60-1.30 Serum or plasma urea nitrogen/creatinine mass ratio 15 NRG Serum or plasma creatinine measurement w ith calculation of estimated glomerular filtration rate > NRG Serum or plasma glucose measurement (mass/volume) 103 mg/dL 70-105 Serum or plasma calcium measurement (mass/volume) 7.8 mg/dL 8.5-10.1 Serum or plasma total bilirubin measurement (mass/volu me) 0.7 mg/dL 0.1-1.0 Serum or plasma alkaline phosphatase jaci surement (enzymatic activity/volume) 46 U/L 40-136 Serum or plasma aspartate aminotransfera se measurement (enzymatic activity/volume) 24 U/L 5-34 Serum or plasma alanine aminotransferase measurement (enzymatic activity/volume) 13 U/L 0-55 Serum or plasma protein measurement (mass/volume) 5.2 g/dL 6.4-8.2 Serum or plasma albumin measurement (mass/volume) 3.1 g/dL 3.2-4.5 Serum or plasma phosphate measurement (m ass/volume) - 11/11/16 03:38 Serum or plasma phosphate measurement (mass/volume) 1.3 mg/dL 2.3-4.7 Magnesium - 11/11/16 03:38 Magnesium 1.7 mg/dL 1.8-2.4 Comprehensive metabolic panel - 11/12/16 03:35 Serum or plasma sodium measurement (moles/volume) 138 mmol/L 135-145 Serum or plasma potassium measurement (moles/volume) 3.5 mmol/L 3.6-5.0 Serum or plasma chloride measurement (moles/volume) 102 mmol/L 98-107 Carbon dioxide 25 mmol/L 21-32 Serum or plasma anion gap determination (moles/volume) 11 mmol/L 5-14 Serum or plasma urea nitrogen measurement (mass/volume ) 5 mg/dL 7-18 Serum or plasma creatinine measurement (mass/volume) 0.54 mg/dL 0.60-1.30 Serum or plasma urea nitrogen/creatinine mass ratio 9 NRG Serum or plasma creatinine measurement w ith calculation of estimated glomerular filtration rate > NRG Serum or plasma glucose measurement (mass/volume) 95 mg/dL 70-105 Serum or plasma calcium measurement (mass/volume) 7.7 mg/dL 8.5-10.1 Serum or plasma total bilirubin measurement (mass/volu me) 0.6 mg/dL 0.1-1.0 Serum or plasma alkaline phosphatase jaci surement (enzymatic activity/volume) 46 U/L 40-136 Serum or plasma aspartate aminotransfera se measurement (enzymatic activity/volume) 27 U/L 5-34 Serum or plasma alanine aminotransferase measurement (enzymatic activity/volume) 13 U/L 0-55 Serum or plasma protein measurement (mass/volume) 4.8 g/dL 6.4-8.2 Serum or plasma albumin measurement (mass/volume) 3.1 g/dL 3.2-4.5 PT panel in platelet poor plasma by coag ulation assay - 04/21/17 05:52 Prothrombin time (PT) in platelet poor plasma by coagu lation assay 14.8 s 12.2-14.7 INR in platelet poor plasma or blood by coagulation as say 1.2 0.8-1.4 Activated partial thromboplastin time (a PTT) in platelet poor plasma bycoagulation assay - 04/21/17 05:52 Activated partial thromboplastin time (a PTT) in platelet poor plasma bycoagulation assay 36 s 24-35 Complete blood count (CBC) with automate d white blood cell (WBC) differential - 04/21/17 10:20 Blood leukocytes automated count (number/volume) 7.4 10*3/uL 4.3-11.0 Blood erythrocytes automated count (number/volume) 3.81 10*6/uL 4.35-5.85 Venous blood hemoglobin measurement (mass/volume) 11.9 g/dL 11.5-16.0 Blood hematocrit (volume fraction) 35 % 35-52 Automated erythrocyte mean corpuscular volume 91 [ foz_us] 80-99 Automated erythrocyte mean corpuscular h emoglobin (mass per erythrocyte) 31 pg 25-34 Automated erythrocyte mean corpuscular h emoglobin concentration measurement (mass/volume) 34 g/dL 32-36 Automated erythrocyte distribution width ratio 13. 8 % 10.0- 14.5 Automated blood platelet count (count/volume) 269 10*3/uL 130-400 Automated blood platelet mean volume measurement 9.1 [foz_us] 7.4-10.4 Automated blood neutrophils/100 leukocytes 75 % 42-75 Automated blood lymphocytes/100 leukocytes 17 % 12-44 Blood monocytes/100 leukocytes 7 % 0-12 Automated blood eosinophils/100 leukocytes 1 % 0-10 Automated blood basophils/100 leukocytes 0 % 0-10 Blood neutrophils automated count (number/volume) 5.5 10*3 1.8-7.8 Blood lymphocytes automated count (number/volume) 1.2 10*3 1.0-4.0 Blood monocytes automated count (number/volume) 0. 5 10*3 0.0-1.0 Automated eosinophil count 0.1 10*3/uL 0 .0-0.3 Automated blood basophil count (count/volume) 0.0 10*3/uL 0.0-0.1 Comprehensive metabolic panel - 04/21/17 10:20 Serum or plasma sodium measurement (moles/volume) 131 mmol/L 135-145 Serum or plasma potassium measurement (moles/volume) 3.9 mmol/L 3.6-5.0 Serum or plasma chloride measurement (moles/volume) 93 mmol/L 98-107 Carbon dioxide 28 mmol/L 21-32 Serum or plasma anion gap determination (moles/volume) 10 mmol/L 5-14 Serum or plasma urea nitrogen measurement (mass/volume ) 16 mg/dL 7-18 Serum or plasma creatinine measurement (mass/volume) 0.72 mg/dL 0.60-1.30 Serum or plasma urea nitrogen/creatinine mass ratio 22 NRG Serum or plasma creatinine measurement w ith calculation of estimated glomerular filtration rate > NRG Serum or plasma glucose measurement (mass/volume) 105 mg/dL 70-105 Serum or plasma calcium measurement (mass/volume) 9.2 mg/dL 8.5-10.1 Serum or plasma total bilirubin measurement (mass/volu me) 0.5 mg/dL 0.1-1.0 Serum or plasma alkaline phosphatase jaci surement (enzymatic activity/volume) 55 U/L 40-136 Serum or plasma aspartate aminotransfera se measurement (enzymatic activity/volume) 39 U/L 5-34 Serum or plasma alanine aminotransferase measurement (enzymatic activity/volume) 30 U/L 0-55 Serum or plasma protein measurement (mass/volume) 7.1 g/dL 6.4-8.2 Serum or plasma albumin measurement (mass/volume) 4.2 g/dL 3.2-4.5 Magnesium - 04/21/17 10:20 Magnesium 1.9 mg/dL 1.8-2.4 Serum or plasma troponin i.cardiac measu rement (mass/volume) - 04/21/17 10:20 Serum or plasma troponin i.cardiac measurement (mass/v olume) < ng/mL <0.30 Complete urinalysis with reflex to cultu re - 04/21/17 15:02 Urine color determination YELLOW NRG Urine clarity determination SLIGHTLY CLOUDY NRG Urine pH measurement by test strip 8 5-9 Specific gravity of urine by test strip 1.015 1.016-1.022 Urine protein assay by test strip, semi-quantitative NEGATIVE NEGATIVE Urine glucose detection by automated test strip NE GATIVE NEGATIVE Erythrocytes detection in urine sediment by light micr oscopy NEGATIVE NEGATIVE Urine ketones detection by automated test strip NE GATIVE NEGATIVE Urine nitrite detection by test strip NEGATIVE NEGATIVE Urine total bilirubin detection by test strip NEGA TIVE NEGATIVE Urine urobilinogen measurement by automated test strip (mass/volume) NORMAL NORMAL Urine leukocyte esterase detection by dipstick 3+ NEGATIVE Automated urine sediment erythrocyte cou nt by microscopy (number/high power field) RARE NRG Automated urine sediment leukocyte count by microscopy (number/high power field) [HPF] NRG Bacteria detection in urine sediment by light microsco py MODERATE NRG Squamous epithelial cells detection in u rine sediment by light microscopy RARE NRG Crystals detection in urine sediment by light microsco py PRESENT NRG Casts detection in urine sediment by light microscopy NONE NRG Mucus detection in urine sediment by light microscopy NEGATIVE NRG Complete urinalysis with reflex to culture YES NRG Amorphous sediment detection in urine sediment by ligh t microscopy FEW MARIAH PHOSPHATE NRG Bacterial urine culture - 04/21/17 15:02 Bacterial urine culture [id number] NRG COLONY COUNT 10,000/ML - 100,000/ML NRG FTX;REPORTABLE ID/SENSITIVITY REPORTED 04/23/17 7:4 4 NRG Bacterial susceptibility panel - 7 15:02 Gentamicin susceptibility test by minimum inhibitory c oncentration <= NRG Tobramycin susceptibility test by minimum inhibitory c oncentration <= NRG Cefazolin susceptibility test by minimum inhibitory co ncentration >= NRG Ceftriaxone susceptibility test by minimum inhibitory concentration R NRG Piperacillin/tazobactam susceptibility t est by minimum inhibitory concentration <= NRG Ciprofloxacin susceptibility test by minimum inhibitor y concentration <= NRG Meropenem susceptibility test by minimum inhibitory co ncentration <= NRG Cefepime susceptibility test by minimum inhibitory con centration <= NRG Complete blood count (CBC) with automate d white blood cell (WBC) differential - 04/22/17 05:17 Blood leukocytes automated count (number/volume) 7.0 10*3/uL 4.3-11.0 Blood erythrocytes automated count (number/volume) 3.69 10*6/uL 4.35-5.85 Venous blood hemoglobin measurement (mass/volume) 11.4 g/dL 11.5-16.0 Blood hematocrit (volume fraction) 33 % 35-52 Automated erythrocyte mean corpuscular volume 91 [ foz_us] 80-99 Automated erythrocyte mean corpuscular h emoglobin (mass per erythrocyte) 31 pg 25-34 Automated erythrocyte mean corpuscular h emoglobin concentration measurement (mass/volume) 34 g/dL 32-36 Automated erythrocyte distribution width ratio 13. 7 % 10.0- 14.5 Automated blood platelet count (count/volume) 216 10*3/uL 130-400 Automated blood platelet mean volume measurement 9.0 [foz_us] 7.4-10.4 Automated blood neutrophils/100 leukocytes 88 % 42-75 Automated blood lymphocytes/100 leukocytes 7 % 12-44 Blood monocytes/100 leukocytes 5 % 0-12 Automated blood eosinophils/100 leukocytes 0 % 0-10 Automated blood basophils/100 leukocytes 0 % 0-10 Blood neutrophils automated count (number/volume) 6.2 10*3 1.8-7.8 Blood lymphocytes automated count (number/volume) 0.5 10*3 1.0-4.0 Blood monocytes automated count (number/volume) 0. 3 10*3 0.0-1.0 Automated eosinophil count 0.0 10*3/uL 0 .0-0.3 Automated blood basophil count (count/volume) 0.0 10*3/uL 0.0-0.1 Comprehensive metabolic panel - 04/22/17 05:17 Serum or plasma sodium measurement (moles/volume) 128 mmol/L 135-145 Serum or plasma potassium measurement (moles/volume) 3.6 mmol/L 3.6-5.0 Serum or plasma chloride measurement (moles/volume) 96 mmol/L 98-107 Carbon dioxide 19 mmol/L 21-32 Serum or plasma anion gap determination (moles/volume) 13 mmol/L 5-14 Serum or plasma urea nitrogen measurement (mass/volume ) 10 mg/dL 7-18 Serum or plasma creatinine measurement (mass/volume) 0.59 mg/dL 0.60-1.30 Serum or plasma urea nitrogen/creatinine mass ratio 17 NRG Serum or plasma creatinine measurement w ith calculation of estimated glomerular filtration rate > NRG Serum or plasma glucose measurement (mass/volume) 106 mg/dL 70-105 Serum or plasma calcium measurement (mass/volume) 7.9 mg/dL 8.5-10.1 Serum or plasma total bilirubin measurement (mass/volu me) 0.8 mg/dL 0.1-1.0 Serum or plasma alkaline phosphatase jaci surement (enzymatic activity/volume) 52 U/L 40-136 Serum or plasma aspartate aminotransfera se measurement (enzymatic activity/volume) 43 U/L 5-34 Serum or plasma alanine aminotransferase measurement (enzymatic activity/volume) 26 U/L 0-55 Serum or plasma protein measurement (mass/volume) 6.3 g/dL 6.4-8.2 Serum or plasma albumin measurement (mass/volume) 3.6 g/dL 3.2-4.5 Complete blood count (CBC) with automate d white blood cell (WBC) differential - 04/23/17 05:52 Blood leukocytes automated count (number/volume) 4.7 10*3/uL 4.3-11.0 Blood erythrocytes automated count (number/volume) 3.34 10*6/uL 4.35-5.85 Venous blood hemoglobin measurement (mass/volume) 10.2 g/dL 11.5-16.0 Blood hematocrit (volume fraction) 30 % 35-52 Automated erythrocyte mean corpuscular volume 91 [ foz_us] 80-99 Automated erythrocyte mean corpuscular h emoglobin (mass per erythrocyte) 31 pg 25-34 Automated erythrocyte mean corpuscular h emoglobin concentration measurement (mass/volume) 34 g/dL 32-36 Automated erythrocyte distribution width ratio 13. 8 % 10.0- 14.5 Automated blood platelet count (count/volume) 188 10*3/uL 130-400 Automated blood platelet mean volume measurement 9.0 [foz_us] 7.4-10.4 Automated blood neutrophils/100 leukocytes 84 % 42-75 Automated blood lymphocytes/100 leukocytes 7 % 12-44 Blood monocytes/100 leukocytes 7 % 0-12 Automated blood eosinophils/100 leukocytes 2 % 0-10 Automated blood basophils/100 leukocytes 0 % 0-10 Blood neutrophils automated count (number/volume) 4.0 10*3 1.8-7.8 Blood lymphocytes automated count (number/volume) 0.3 10*3 1.0-4.0 Blood monocytes automated count (number/volume) 0. 3 10*3 0.0-1.0 Automated eosinophil count 0.1 10*3/uL 0 .0-0.3 Automated blood basophil count (count/volume) 0.0 10*3/uL 0.0-0.1 Comprehensive metabolic panel - 04/23/17 05:52 Serum or plasma sodium measurement (moles/volume) 132 mmol/L 135-145 Serum or plasma potassium measurement (moles/volume) 3.2 mmol/L 3.6-5.0 Serum or plasma chloride measurement (moles/volume) 100 mmol/L 98-107 Carbon dioxide 26 mmol/L 21-32 Serum or plasma anion gap determination (moles/volume) 6 mmol/L 5-14 Serum or plasma urea nitrogen measurement (mass/volume ) 5 mg/dL 7-18 Serum or plasma creatinine measurement (mass/volume) 0.56 mg/dL 0.60-1.30 Serum or plasma urea nitrogen/creatinine mass ratio 9 NRG Serum or plasma creatinine measurement w ith calculation of estimated glomerular filtration rate > NRG Serum or plasma glucose measurement (mass/volume) 103 mg/dL 70-105 Serum or plasma calcium measurement (mass/volume) 7.6 mg/dL 8.5-10.1 Serum or plasma total bilirubin measurement (mass/volu me) 0.7 mg/dL 0.1-1.0 Serum or plasma alkaline phosphatase jaci surement (enzymatic activity/volume) 46 U/L 40-136 Serum or plasma aspartate aminotransfera se measurement (enzymatic activity/volume) 24 U/L 5-34 Serum or plasma alanine aminotransferase measurement (enzymatic activity/volume) 17 U/L 0-55 Serum or plasma protein measurement (mass/volume) 5.1 g/dL 6.4-8.2 Serum or plasma albumin measurement (mass/volume) 3.0 g/dL 3.2-4.5 Serum or plasma renal function panel (Na , K, Cl, CO2, BUN, Cr, glucose,Ca, phos, alb) - 04/23/17 05:52 Serum or plasma phosphate measurement (mass/volume) 2.2 mg/dL 2.3-4.7 Magnesium - 04/23/17 05:52 Magnesium 1.5 mg/dL 1.8-2.4 Automated blood complete blood count (he mogram) panel - 04/25/17 05:00 Blood leukocytes automated count (number/volume) 4.4 10*3/uL 4.3-11.0 Blood erythrocytes automated count (number/volume) 3.13 10*6/uL 4.35-5.85 Venous blood hemoglobin measurement (mass/volume) 9.7 g/dL 11.5-16.0 Blood hematocrit (volume fraction) 29 % 35-52 Automated erythrocyte mean corpuscular volume 91 [ foz_us] 80-99 Automated erythrocyte mean corpuscular h emoglobin (mass per erythrocyte) 31 pg 25-34 Automated erythrocyte mean corpuscular h emoglobin concentration measurement (mass/volume) 34 g/dL 32-36 Automated erythrocyte distribution width ratio 13. 8 % 10.0- 14.5 Automated blood platelet count (count/volume) 202 10*3/uL 130-400 Automated blood platelet mean volume measurement 8.9 [foz_us] 7.4-10.4 Comprehensive metabolic panel - 04/25/17 05:00 Serum or plasma sodium measurement (moles/volume) 132 mmol/L 135-145 Serum or plasma potassium measurement (moles/volume) 3.6 mmol/L 3.6-5.0 Serum or plasma chloride measurement (moles/volume) 99 mmol/L 98-107 Carbon dioxide 27 mmol/L 21-32 Serum or plasma anion gap determination (moles/volume) 6 mmol/L 5-14 Serum or plasma urea nitrogen measurement (mass/volume ) 7 mg/dL 7-18 Serum or plasma creatinine measurement (mass/volume) 0.54 mg/dL 0.60-1.30 Serum or plasma urea nitrogen/creatinine mass ratio 13 NRG Serum or plasma creatinine measurement w ith calculation of estimated glomerular filtration rate > NRG Serum or plasma glucose measurement (mass/volume) 107 mg/dL 70-105 Serum or plasma calcium measurement (mass/volume) 7.7 mg/dL 8.5-10.1 Serum or plasma total bilirubin measurement (mass/volu me) 0.6 mg/dL 0.1-1.0 Serum or plasma alkaline phosphatase jaci surement (enzymatic activity/volume) 49 U/L 40-136 Serum or plasma aspartate aminotransfera se measurement (enzymatic activity/volume) 25 U/L 5-34 Serum or plasma alanine aminotransferase measurement (enzymatic activity/volume) 18 U/L 0-55 Serum or plasma protein measurement (mass/volume) 5.5 g/dL 6.4-8.2 Serum or plasma albumin measurement (mass/volume) 3.1 g/dL 3.2-4.5 Complete blood count (CBC) with automate d white blood cell (WBC) differential - 04/28/17 04:23 Blood leukocytes automated count (number/volume) 5.8 10*3/uL 4.3-11.0 Blood erythrocytes automated count (number/volume) 3.63 10*6/uL 4.35-5.85 Venous blood hemoglobin measurement (mass/volume) 11.2 g/dL 11.5-16.0 Blood hematocrit (volume fraction) 33 % 35-52 Automated erythrocyte mean corpuscular volume 91 [ foz_us] 80-99 Automated erythrocyte mean corpuscular h emoglobin (mass per erythrocyte) 31 pg 25-34 Automated erythrocyte mean corpuscular h emoglobin concentration measurement (mass/volume) 34 g/dL 32-36 Automated erythrocyte distribution width ratio 14. 1 % 10.0- 14.5 Automated blood platelet count (count/volume) 339 10*3/uL 130-400 Automated blood platelet mean volume measurement 8.9 [foz_us] 7.4-10.4 Automated blood neutrophils/100 leukocytes 76 % 42-75 Automated blood lymphocytes/100 leukocytes 11 % 12-44 Blood monocytes/100 leukocytes 8 % 0-12 Automated blood eosinophils/100 leukocytes 4 % 0-10 Automated blood basophils/100 leukocytes 1 % 0-10 Blood neutrophils automated count (number/volume) 4.4 10*3 1.8-7.8 Blood lymphocytes automated count (number/volume) 0.6 10*3 1.0-4.0 Blood monocytes automated count (number/volume) 0. 5 10*3 0.0-1.0 Automated eosinophil count 0.3 10*3/uL 0 .0-0.3 Automated blood basophil count (count/volume) 0.0 10*3/uL 0.0-0.1 Comprehensive metabolic panel - 04/28/17 04:23 Serum or plasma sodium measurement (moles/volume) 134 mmol/L 135-145 Serum or plasma potassium measurement (moles/volume) 3.1 mmol/L 3.6-5.0 Serum or plasma chloride measurement (moles/volume) 94 mmol/L 98-107 Carbon dioxide 22 mmol/L 21-32 Serum or plasma anion gap determination (moles/volume) 18 mmol/L 5-14 Serum or plasma urea nitrogen measurement (mass/volume ) 12 mg/dL 7-18 Serum or plasma creatinine measurement (mass/volume) 0.61 mg/dL 0.60-1.30 Serum or plasma urea nitrogen/creatinine mass ratio 20 NRG Serum or plasma creatinine measurement w ith calculation of estimated glomerular filtration rate > NRG Serum or plasma glucose measurement (mass/volume) 92 mg/dL 70-105 Serum or plasma calcium measurement (mass/volume) 9.2 mg/dL 8.5-10.1 Serum or plasma total bilirubin measurement (mass/volu me) 0.6 mg/dL 0.1-1.0 Serum or plasma alkaline phosphatase jaci surement (enzymatic activity/volume) 66 U/L 40-136 Serum or plasma aspartate aminotransfera se measurement (enzymatic activity/volume) 33 U/L 5-34 Serum or plasma alanine aminotransferase measurement (enzymatic activity/volume) 25 U/L 0-55 Serum or plasma protein measurement (mass/volume) 6.6 g/dL 6.4-8.2 Serum or plasma albumin measurement (mass/volume) 3.7 g/dL 3.2-4.5 Complete blood count (CBC) with automate d white blood cell (WBC) differential - 05/03/17 06:24 Blood leukocytes automated count (number/volume) 5.3 10*3/uL 4.3-11.0 Blood erythrocytes automated count (number/volume) 3.15 10*6/uL 4.35-5.85 Venous blood hemoglobin measurement (mass/volume) 9.7 g/dL 11.5-16.0 Blood hematocrit (volume fraction) 29 % 35-52 Automated erythrocyte mean corpuscular volume 93 [ foz_us] 80-99 Automated erythrocyte mean corpuscular h emoglobin (mass per erythrocyte) 31 pg 25-34 Automated erythrocyte mean corpuscular h emoglobin concentration measurement (mass/volume) 33 g/dL 32-36 Automated erythrocyte distribution width ratio 14. 3 % 10.0- 14.5 Automated blood platelet count (count/volume) 436 10*3/uL 130-400 Automated blood platelet mean volume measurement 8.2 [foz_us] 7.4-10.4 Automated blood neutrophils/100 leukocytes 74 % 42-75 Automated blood lymphocytes/100 leukocytes 11 % 12-44 Blood monocytes/100 leukocytes 11 % 0-12 Automated blood eosinophils/100 leukocytes 4 % 0-10 Automated blood basophils/100 leukocytes 1 % 0-10 Blood neutrophils automated count (number/volume) 3.9 10*3 1.8-7.8 Blood lymphocytes automated count (number/volume) 0.6 10*3 1.0-4.0 Blood monocytes automated count (number/volume) 0. 6 10*3 0.0-1.0 Automated eosinophil count 0.2 10*3/uL 0 .0-0.3 Automated blood basophil count (count/volume) 0.0 10*3/uL 0.0-0.1 Comprehensive metabolic panel - 05/03/17 06:24 Serum or plasma sodium measurement (moles/volume) 131 mmol/L 135-145 Serum or plasma potassium measurement (moles/volume) 4.0 mmol/L 3.6-5.0 Serum or plasma chloride measurement (moles/volume) 94 mmol/L 98-107 Carbon dioxide 27 mmol/L 21-32 Serum or plasma anion gap determination (moles/volume) 10 mmol/L 5-14 Serum or plasma urea nitrogen measurement (mass/volume ) 18 mg/dL 7-18 Serum or plasma creatinine measurement (mass/volume) 0.63 mg/dL 0.60-1.30 Serum or plasma urea nitrogen/creatinine mass ratio 29 NRG Serum or plasma creatinine measurement w ith calculation of estimated glomerular filtration rate > NRG Serum or plasma glucose measurement (mass/volume) 87 mg/dL 70-105 Serum or plasma calcium measurement (mass/volume) 8.8 mg/dL 8.5-10.1 Serum or plasma total bilirubin measurement (mass/volu me) 0.6 mg/dL 0.1-1.0 Serum or plasma alkaline phosphatase jaci surement (enzymatic activity/volume) 103 U/L 40-136 Serum or plasma aspartate aminotransfera se measurement (enzymatic activity/volume) 22 U/L 5-34 Serum or plasma alanine aminotransferase measurement (enzymatic activity/volume) 16 U/L 0-55 Serum or plasma protein measurement (mass/volume) 6.0 g/dL 6.4-8.2 Serum or plasma albumin measurement (mass/volume) 3.4 g/dL 3.2-4.5 Stool occult blood screen - 05/03/17 08: 10 Stool gastrointestinal hemoglobin detection NEGATI VE NEGATIVE Whole blood basic metabolic panel - 04/25 11/11 05:37 Serum or plasma sodium measurement (moles/volume) 132 mmol/L 135-145 Serum or plasma potassium measurement (moles/volume) 3.6 mmol/L 3.6-5.0 Serum or plasma chloride measurement (moles/volume) 97 mmol/L 98-107 Carbon dioxide 24 mmol/L 21-32 Serum or plasma anion gap determination (moles/volume) 11 mmol/L 5-14 Serum or plasma urea nitrogen measurement (mass/volume ) 17 mg/dL 7-18 Serum or plasma creatinine measurement (mass/volume) 0.59 mg/dL 0.60-1.30 Serum or plasma urea nitrogen/creatinine mass ratio 29 NRG Serum or plasma creatinine measurement w ith calculation of estimated glomerular filtration rate > NRG Serum or plasma glucose measurement (mass/volume) 94 mg/dL 70-105 Serum or plasma calcium measurement (mass/volume) 9.1 mg/dL 8.5-10.1 Automated blood complete blood count (he mogram) panel - 05/08/17 09:54 Blood leukocytes automated count (number/volume) 5.4 10*3/uL 4.3-11.0 Blood erythrocytes automated count (number/volume) 3.82 10*6/uL 4.35-5.85 Venous blood hemoglobin measurement (mass/volume) 11.9 g/dL 11.5-16.0 Blood hematocrit (volume fraction) 36 % 35-52 Automated erythrocyte mean corpuscular volume 94 [ foz_us] 80-99 Automated erythrocyte mean corpuscular h emoglobin (mass per erythrocyte) 31 pg 25-34 Automated erythrocyte mean corpuscular h emoglobin concentration measurement (mass/volume) 33 g/dL 32-36 Automated erythrocyte distribution width ratio 14. 5 % 10.0- 14.5 Automated blood platelet count (count/volume) 588 10*3/uL 130-400 Automated blood platelet mean volume measurement 8.4 [foz_us] 7.4-10.4 Comprehensive metabolic panel - 05/08/17 09:54 Serum or plasma sodium measurement (moles/volume) 133 mmol/L 135-145 Serum or plasma potassium measurement (moles/volume) 3.3 mmol/L 3.6-5.0 Serum or plasma chloride measurement (moles/volume) 94 mmol/L 98-107 Carbon dioxide 25 mmol/L 21-32 Serum or plasma anion gap determination (moles/volume) 14 mmol/L 5-14 Serum or plasma urea nitrogen measurement (mass/volume ) 17 mg/dL 7-18 Serum or plasma creatinine measurement (mass/volume) 0.72 mg/dL 0.60-1.30 Serum or plasma urea nitrogen/creatinine mass ratio 24 NRG Serum or plasma creatinine measurement w ith calculation of estimated glomerular filtration rate > NRG Serum or plasma glucose measurement (mass/volume) 110 mg/dL 70-105 Serum or plasma calcium measurement (mass/volume) 9.9 mg/dL 8.5-10.1 Serum or plasma total bilirubin measurement (mass/volu me) 0.5 mg/dL 0.1-1.0 Serum or plasma alkaline phosphatase jaci surement (enzymatic activity/volume) 166 U/L 40-136 Serum or plasma aspartate aminotransfera se measurement (enzymatic activity/volume) 27 U/L 5-34 Serum or plasma alanine aminotransferase measurement (enzymatic activity/volume) 16 U/L 0-55 Serum or plasma protein measurement (mass/volume) 8.0 g/dL 6.4-8.2 Serum or plasma albumin measurement (mass/volume) 4.5 g/dL 3.2-4.5 Magnesium - 05/08/17 09:54 Magnesium 2.1 mg/dL 1.8-2.4 Complete blood count (CBC) with automate d white blood cell (WBC) differential - 12/29/19 09:05 Blood leukocytes automated count (number/volume) 4.6 10*3/uL 4.3-11.0 Blood erythrocytes automated count (number/volume) 4.13 10*6/uL 4.35-5.85 Venous blood hemoglobin measurement (mass/volume) 12.6 g/dL 11.5-16.0 Blood hematocrit (volume fraction) 38 % 35-52 Automated erythrocyte mean corpuscular volume 91 [ foz_us] 80-99 Automated erythrocyte mean corpuscular h emoglobin (mass per erythrocyte) 31 pg 25-34 Automated erythrocyte mean corpuscular h emoglobin concentration measurement (mass/volume) 34 g/dL 32-36 Automated erythrocyte distribution width ratio 14. 1 % 10.0- 14.5 Automated blood platelet count (count/volume) 290 10*3/uL 130-400 Automated blood platelet mean volume measurement 9.0 [foz_us] 7.4-10.4 Automated blood neutrophils/100 leukocytes 67 % 42-75 Automated blood lymphocytes/100 leukocytes 22 % 12-44 Blood monocytes/100 leukocytes 7 % 0-12 Automated blood eosinophils/100 leukocytes 3 % 0-10 Automated blood basophils/100 leukocytes 0 % 0-10 Blood neutrophils automated count (number/volume) 3.1 10*3 1.8-7.8 Blood lymphocytes automated count (number/volume) 1.0 10*3 1.0-4.0 Blood monocytes automated count (number/volume) 0. 3 10*3 0.0-1.0 Automated eosinophil count 0.2 10*3/uL 0 .0-0.3 Automated blood basophil count (count/volume) 0.0 10*3/uL 0.0-0.1 PT panel in platelet poor plasma by coag ulation assay - 12/29/19 09:05 Prothrombin time (PT) in platelet poor plasma by coagu lation assay 12.9 s 12.2-14.7 INR in platelet poor plasma or blood by coagulation as say 0.9 0.8-1.4 Activated partial thromboplastin time (a PTT) in platelet poor plasma bycoagulation assay - 12/29/19 09:05 Activated partial thromboplastin time (a PTT) in platelet poor plasma bycoagulation assay 33 s 24-35 Comprehensive metabolic panel - 12/29/19 09:05 Serum or plasma sodium measurement (moles/volume) 134 mmol/L 135-145 Serum or plasma potassium measurement (moles/volume) 3.9 mmol/L 3.6-5.0 Serum or plasma chloride measurement (moles/volume) 96 mmol/L 98-107 Carbon dioxide 23 mmol/L 21-32 Serum or plasma anion gap determination (moles/volume) 15 mmol/L 5-14 Serum or plasma urea nitrogen measurement (mass/volume ) 15 mg/dL 7-18 Serum or plasma creatinine measurement (mass/volume) 0.85 mg/dL 0.60-1.30 Serum or plasma urea nitrogen/creatinine mass ratio 18 NRG Serum or plasma creatinine measurement w ith calculation of estimated glomerular filtration rate > NRG Serum or plasma glucose measurement (mass/volume) 139 mg/dL 70-105 Serum or plasma calcium measurement (mass/volume) 9.4 mg/dL 8.5-10.1 Serum or plasma total bilirubin measurement (mass/volu me) 0.5 mg/dL 0.1-1.0 Serum or plasma alkaline phosphatase jaci surement (enzymatic activity/volume) 69 U/L 40-136 Serum or plasma aspartate aminotransfera se measurement (enzymatic activity/volume) 31 U/L 5-34 Serum or plasma alanine aminotransferase measurement (enzymatic activity/volume) 27 U/L 0-55 Serum or plasma protein measurement (mass/volume) 7.4 g/dL 6.4-8.2 Serum or plasma albumin measurement (mass/volume) 4.4 g/dL 3.2-4.5 CALCIUM CORRECTED 9.1 mg/dL 8.5-10.1 Magnesium - 12/29/19 09:05 Magnesium 1.8 mg/dL 1.6-2.4 Myoglobin, serum - 12/29/19 09:05 Myoglobin, serum 35.7 ng/mL 10.0-92.0 Serum or plasma troponin i.cardiac measu rement (mass/volume) - 12/29/19 09:05 Serum or plasma troponin i.cardiac measurement (mass/v olume) < ng/mL <0.028 Complete urinalysis with reflex to cultu re - 12/29/19 09:15 Urine color determination YELLOW NRG Urine clarity determination CLEAR NR G Urine pH measurement by test strip 8.5 5-9 Specific gravity of urine by test strip 1.015 1.016-1.022 Urine protein assay by test strip, semi-quantitative NEGATIVE NEGATIVE Urine glucose detection by automated test strip NE GATIVE NEGATIVE Erythrocytes detection in urine sediment by light micr oscopy NEGATIVE NEGATIVE Urine ketones detection by automated test strip 1+ NEGATIVE Urine nitrite detection by test strip NEGATIVE NEGATIVE Urine total bilirubin detection by test strip NEGA TIVE NEGATIVE Urine urobilinogen measurement by automated test strip (mass/volume) 0.2 mg/dL < = 1.0 Urine leukocyte esterase detection by dipstick NEG ATIVE NEGATIVE Automated urine sediment erythrocyte cou nt by microscopy (number/high power field) [HPF] NRG Automated urine sediment leukocyte count by microscopy (number/high power field) RARE NRG Bacteria detection in urine sediment by light microsco py NEGATIVE NRG Squamous epithelial cells detection in u rine sediment by light microscopy 2-5 NRG Crystals detection in urine sediment by light microsco py PRESENT NRG Casts detection in urine sediment by light microscopy NONE NRG Mucus detection in urine sediment by light microscopy NEGATIVE NRG Complete urinalysis with reflex to culture NO NRG Amorphous sediment detection in urine sediment by ligh t microscopy MOD MARIAH PHOSPHATE NRG Encounters ACCT No. Visit Date/Time Discharge Status Pt. Type Provider Facility Loc./Unit Complaint [id number] 10/18/2019 08:52:00 020 11:15:00 DIS Outpatient JACKIE ROMO MD [facility] ENDO GERD/HX GASTRIC POLYPS [id number] 10/15/2019 08:00:00 020 10:53:00 DIS Outpatient JACKIE ROMO MD [facility] PREOP EGD [id number] 02/21/2019 09:50:00 019 23:59:59 CLS Outpatient RUTH ZUNIGA APRN [facility] RAD SCREENING [id number] 10/05/2018 13:02:00 019 13:36:00 DIS Outpatient ZEV FARRAR MD [facility] REHAB GENERAL WEAKNESS;GAIT INSTABILITY [id number] 02/20/2018 10:53:00 018 23:59:59 CLS Outpatient ZEV FARRAR MD [facility] RAD SCREENING MAMMOGRAM [id number] 02/01/2018 10:03:00 018 10:30:00 DIS Outpatient ZEV FARRAR MD [facility] REHAB R SHOULDER PAIN; BICEP TENDONITIS [id number] 04/25/2017 10:50:00 017 14:00:00 DIS Inpatient KIYA PEREZ MD [facility] IRF LEFT SUBCAPITAL FEMORAL NECK FRACTURE [id number] 04/21/2017 15:18:00 017 10:40:00 DIS Inpatient JONATHAN GARSIA MD [facility] 4TH L FEM. NECK FX [id number] 02/16/2017 09:32:00 017 23:59:59 CLS Outpatient MYESHA NELSON [facility] RAD SCREENING [id number] 11/07/2016 02:46:00 017 11:01:00 DIS Inpatient ZEV FARRAR MD [facility] 4TH SMALL BOWEL OBSTRUCTION [id number] 07/14/2016 10:43:00 016 23:59:59 CLS Outpatient ZEV FARRAR MD [facility] RAD AGE RELATED OSTEOPOROS IS [id number] 10/09/2015 06:49:00 016 10:00:00 DIS Outpatient JACKIE ROMO MD [facility] DYSPHAGIA [id number] 10/06/2015 05:41:00 016 23:59:59 CLS Outpatient JACKIE ROMO MD [facility] PREOP DYSPHAGIA [id number] 02/11/2015 11:15:00 015 23:59:59 CLS Outpatient MYESHA NELSONP [facility] RAD SCREENING [id number] 01/23/2014 09:27:00 014 23:59:59 CLS Outpatient TAMIR CASTILLO MD [facility] RAD MAMMO [id number] 01/23/2013 10:17:00 013 23:59:59 CLS Outpatient TAMIR CASTILLO MD [facility] RAD SCREENING [id number] 01/22/2013 08:20:00 013 11:20:00 DIS Outpatient JACKIE ROMO MD [facility] SDC GERD [id number] 01/18/2013 09:15:00 013 23:59:59 CLS Outpatient ANNA CARRINGTON, TAMIR Barrett [facility] RAD SCREENING [id number] 12/29/2019 09:12:00 Document Registration [id number] 02/16/2016 09:25:00 Document Registration [id number] 01/17/2013 07:13:00 Document Registration [id number] 12/29/2011 09:17:00 Document Registration [id number] 04/12/2011 07:32:00 Document Registration [id number] 12/22/2010 14:09:00 Document Registration [id number] 10/01/2010 13:34:00 Document Registration
[2019-12-29] MEDS ORDERED: ACETAMINOPHEN 325 MG TABLET PO PRN (11:45)
[2019-12-29 12:00] VITALS: BP 201/75
[2019-12-29] MEDS ORDERED: HYDROcodone/APAP 5 MG/325 MG (LORTAB) TAB PO PRN ×2 (12:15)
--- NOTE | 2019-12-29 12:43 | Consultation-Cardiology ---
HPI-Cardiology Cardiology Consultation Date of Consultation 12/29/19 Date of Admission Time Seen by Provider: 12:39 Indication: syncope HPI 84-year-old lady with history of syncope in 2017 resulted in hip fracture, had another syncopal episode this morning, did not take her blood pressure medication this morning felt slightly lightheaded while she was in the kitchen and sat down for a little bit then while she was standing she had a full syncopal episode, no chest pain or palpitation. Fell to the floor resulted in sacral fracture, currently feeling better except for pain from her lower back. No previous history of arrhythmia. Home Medications & Allergies Allergies: Coded Allergies: bacitracin (Verified Allergy, Mild, RASH, 10/15/19) lidocaine (Verified Allergy, Mild, RASH, 10/15/19) neomycin (Verified Allergy, Mild, RASH, 10/15/19) polymyxin B (Verified Allergy, Mild, RASH, 10/15/19) pramoxine (Verified Allergy, Mild, RASH, 10/15/19) Home Medication List Reviewed: Yes SCQ-Hhtbwg-Bljsws Hx Patient Social History Marital Status: Living Status: LIVES AT HOME WITH SPOUSE Employed/Student: retired Alcohol Use: Denies Use Recreational Drug Use: No Smoking Status: Never a Smoker 2nd Hand Smoke Exposure: No Recent Foreign Travel: No Recent Infectious Disease Expo: No Recent Hopitalizations: No Physical Abuse Screen: No Sexual Abuse: No Immunizations Up To Date Tetanus Booster (TDap): Unknown Date of Pneumonia Vaccine: Jul 01, 2019 Date of Influenza Vaccine: Jul 01, 2019 Past Medical History Discussed below Family Medical History Significant Family History: Heart Disease, Cancer, Hypertension, Renal Disease, Other Conditions/Hx (BROTHER WITH CONGENTIAL DISEASE) Family History: Congenital disease G8 BROTHER (? DOWN SYNDROME) Hypertension 19 MOTHER G8 SISTER Kidney disease sister Myocardial infarction 19 FATHER Neoplasm 19 MOTHER (BREAST CANCER) Visual disorder 19 MOTHER (MACULAR DEGENERATION) Review of Systems-General Review of Systems Constitutional: no symptoms reported, see HPI, weakness EENTM: see HPI, no symptoms reported Respiratory: see HPI; No cough, No dyspnea on exertion, No hemoptysis, No orthopnea, No phlegm, No short of breath, No stridor, No wheezing, No other Cardiovascular: see HPI; No chest pain, No edema, No Hx of Intervention, No palpitations; syncope; No vascular heart diseas, No other Gastrointestinal: no symptoms reported, see HPI Genitourinary: no symptoms reported, see HPI Musculoskeletal: see HPI, back pain Skin: no symptoms reported Psychiatric/Neurological: No Symptoms Reported All Other Systems Reviewed Negative Unless Noted: Yes Reviewed Test Results Reviewed Test Results Lab Laboratory Tests Test 12/29/19 09:05 12/29/19 09:15 Range/Units White Blood Count 4.6 4.3-11.0 10^3/uL Red Blood Count 4.13 L 4.35-5.85 10^6/uL Hemoglobin 12.6 11.5-16.0 G/DL Hematocrit 38 35-52 % Mean Corpuscular Volume 91 80-99 FL Mean Corpuscular Hemoglobin 31 25-34 PG Mean Corpuscular Hemoglobin Concent 34 32-36 G/DL Red Cell Distribution Width 14.1 10.0-14.5 % Platelet Count 290 130-400 10^3/uL Mean Platelet Volume 9.0 7.4-10.4 FL Neutrophils (%) (Auto) 67 42-75 % Lymphocytes (%) (Auto) 22 12-44 % Monocytes (%) (Auto) 7 0-12 % Eosinophils (%) (Auto) 3 0-10 % Basophils (%) (Auto) 0 0-10 % Neutrophils # (Auto) 3.1 1.8-7.8 X 10^3 Lymphocytes # (Auto) 1.0 1.0-4.0 X 10^3 Monocytes # (Auto) 0.3 0.0-1.0 X 10^3 Eosinophils # (Auto) 0.2 0.0-0.3 10^3/uL Basophils # (Auto) 0.0 0.0-0.1 10^3/uL Prothrombin Time 12.9 12.2-14.7 SEC INR Comment 0.9 0.8-1.4 Activated Partial Thromboplast Time 33 24-35 SEC Sodium Level 134 L 135-145 MMOL/L Potassium Level 3.9 3.6-5.0 MMOL/L Chloride Level 96 L 98-107 MMOL/L Carbon Dioxide Level 23 21-32 MMOL/L Anion Gap 15 H 5-14 MMOL/L Blood Urea Nitrogen 15 7-18 MG/DL Creatinine 0.85 0.60-1.30 MG/DL Estimat Glomerular Filtration Rate > 60 BUN/Creatinine Ratio 18 Glucose Level 139 H 70-105 MG/DL Calcium Level 9.4 8.5-10.1 MG/DL Corrected Calcium 9.1 8.5-10.1 MG/DL Magnesium Level 1.8 1.6-2.4 MG/DL Total Bilirubin 0.5 0.1-1.0 MG/DL Aspartate Amino Transf (AST/SGOT) 31 5-34 U/L Alanine Aminotransferase (ALT/SGPT) 27 0-55 U/L Alkaline Phosphatase 69 40-136 U/L Myoglobin 35.7 10.0-92.0 NG/ML Troponin I < 0.028 <0.028 NG/ML Total Protein 7.4 6.4-8.2 GM/DL Albumin 4.4 3.2-4.5 GM/DL Urine Color YELLOW Urine Clarity CLEAR Urine pH 8.5 5-9 Urine Specific [place] 1.015 L 1.016-1.022 Urine Protein NEGATIVE NEGATIVE Urine Glucose (UA) NEGATIVE NEGATIVE Urine Ketones 1+ H NEGATIVE Urine Nitrite NEGATIVE NEGATIVE Urine Bilirubin NEGATIVE NEGATIVE Urine Urobilinogen 0.2 < = 1.0 MG/DL Urine Leukocyte Esterase NEGATIVE NEGATIVE Urine RBC (Auto) NEGATIVE NEGATIVE Urine RBC 2-5 H /HPF Urine WBC RARE /HPF Urine Squamous Epithelial Cells 2-5 /HPF Urine Crystals PRESENT H /LPF Urine Amorphous Sediment MOD MARIAH PHOSPHATE H /LPF Urine Bacteria NEGATIVE /HPF Urine Casts NONE /LPF Urine Mucus NEGATIVE /LPF Urine Culture Indicated NO Physical Exam Physical Exam Vital Signs Vital Signs - First Documented 12/29/19 12/29/19 09:00 12:00 Temp 36.5 Pulse 71 Resp 20 B/P (MAP) 140/103 (115) Pulse Ox 100 O2 Delivery Room Air Capillary Refill : Less Than 3 SecondsLess Than 3 Seconds Height, Weight, BMI Height: 5'3.00" Weight: 82lbs. 6.4oz. 37.903945nc; 16.00 BMI Method:Stated General Appearance: No Apparent Distress, WD/WN Eyes: Bilateral Eye Normal Inspection, Bilateral Eye PERRL, Bilateral Eye EOMI HEENT: PERRL/EOMI, Normal ENT Inspection Neck: Normal Inspection; No Carotid Bruit, No JVD; Other (bilateral bruit) Respiratory: Lungs Clear, Normal Breath Sounds, No Accessory Muscle Use, No Respiratory Distress Cardiovascular: Regular Rate, Rhythm, No Edema, Systolic Murmur (systolic murmur at the left sternal border radiating to the neck) Gastrointestinal: Normal Bowel Sounds, Non Tender, Soft Rectal: Deferred Extremity: Normal Inspection, Non Tender, No Pedal Edema Neurologic/Psychiatric: Alert, Oriented x3, No Motor/Sensory Deficits, Normal Mood/Affect Skin: Warm/Dry, Other (SLIGHT ERYTHEMA RIGHT EAR/CHEEK) Lymphatic: No Adenopathy A/P-Cardiology Admission Diagnosis Syncope Hypertension Sacral fracture Hyponatremia Assessment/Plan Syncope, probably hypotensive episode, I instructed her to stop triamterene and Cardizem, will consider using low-dose selective beta-1 blake and evaluate tolerance and response. Will evaluate 2-D echo, carotid ultrasound, consideration for tilt table test, monitor on telemetry for the next 24 hours Hypertension maintained on Cardizem and triamterene which will be stopped and we will use low-dose beta blockers and evaluate tolerance and response Sacral fracture, continue to monitor History of hip fracture secondary to syncope in 2017. Depression, managed by primary care physician Chronic hyponatremia, managed by primary care physician Dr. Orozco is covering for me starting tomorrow Clinical Quality Measures DVT/VTE Risk/Contraindication: Risk Factor Score Per Nursin RFS Level Per Nursing on Admit: 4+=Very High CODY URBINA MD Dec 29, 2019 12:43 pm
--- NOTE | 2019-12-29 13:00 | NUR ---
PT'S INITIAL BLOOD PRESSURE WAS SHOWED S OF 201 LYING DOWN. RECHECK OF THAT WAS 179/78. PCT DID NOT CHART THIS. Addendum: 12/29/19 at 1801 by BRIGID LIEBERMAN RN PT'S LAST S BLOOD PRESSURE WAS 129
[2019-12-29 16:00] VITALS: BP 129/73
[2019-12-29 20:00] VITALS: BP 150/66
[2019-12-29 20:27] VITALS: BP_SYST 150; BP_SYST 152; BP_SYST 160; BP_DIAS 62; BP_DIAS 66; BP_DIAS 73
[2019-12-29] MEDS ORDERED: FAMOTIDINE 40 MG (PEPCID) TABLET PO SCH (21:00)
[2019-12-29] MEDS ORDERED: ACETAMINOPHEN 325 MG TABLET PO SCH (21:00)
[2019-12-29] MEDS ORDERED: FAMOTIDINE 20 MG (PEPCID) TABLET PO SCH (21:00)
[2019-12-29] MEDS: DOCUSATE SODIUM 100 MG (COLACE) CAP PO SCH (21:05)
[2019-12-30 00:41] VITALS: BP 157/72
[2019-12-30 04:00] VITALS: BP 168/70
[2019-12-30 05:57] LABS: CHOLESTEROL 180 MG/DL (< 200); HDL CHOLESTEROL 65 MG/DL (40-60); TRIGLYCERIDES 65 MG/DL (<150); VLDL CHOLESTEROL 13 MG/DL (5-40)
[2019-12-30 08:00] VITALS: BP 150/62
[2019-12-30] MEDS: DOCUSATE SODIUM 100 MG (COLACE) CAP PO SCH (08:16)
--- NOTE | 2019-12-30 08:24 | Diagnostic Imaging Report ---
PROCEDURE: US carotid duplex, bilateral. TECHNIQUE: Multiple real-time grayscale images were obtained over the carotid arteries in various projections, bilaterally. Additional spectral analysis and color Doppler duplex images were also obtained. INDICATION: Syncope Comparison: None available FINDINGS: Parameters based on the consensus panel Main-Scale and Doppler ultrasound criteria published July 2003, Radiology, Volume 229. DOPPLER (peak systolic velocity M/S Right Left CCA .71 .65 ICA Proximal 1.06 1.32 ICA Mid 1.23 1.5 ICA Distal 1.16 1.16 RATIO 1.72 2.30 ECA 1.26 1.33 VERT .97 .86 Right carotid circulation: There is mild plaque formation in the right carotid bifurcation. Based on grayscale images and flow velocity criteria, there is mild stenoses (<50%) of the right internal carotid artery. Left carotid circulation: There is moderate plaque formation in the left carotid bifurcation. Based on grayscale images and flow velocity criteria, there is moderate stenoses (50-69%) of the left internal carotid artery. Flow in the bilateral vertebral arteries is antegrade. IMPRESSION: 1. Mild (<50%) stenosis of the right internal carotid artery. 2. Moderate (50-69%) stenosis of the left internal carotid artery. Society of Radiologist in Ultrasound Consensus: Normal: ICA PSV is <125 cm/sec and no plaque or intimal thickening is visible sonographically ICA/CCA PSV ratio <2.0 ICA EDV <40 cm/sec Mild (<50% ICA stenosis): ICA PSV is <125 cm/sec and plaque or intimal thickening is visible sonographically ICA/CCA PSV ratio <2.0 ICA EDV <40 cm/sec Moderate (50-69% ICA stenosis) ICA PSV is 125-230 cm/sec and plaque is visible sonographically ICA/CCA PSV ratio of 2.0-4.0 ICA EDV of 40-100 cm/sec Severe (?70% ICA stenosis but less than near occlusion): ICA PSV is >230 cm/sec and visible plaque and luminal narrowing are seen at main-scale and color Doppler ultrasound (the higher the Doppler parameters lie above the threshold of 230 cm/sec, the greater the likelihood of severe disease) ICA/CCA PSV ratio >4 ICA EDV >100 cm/sec Near occlusion of the ICA Velocity parameters may not apply, since velocities may be high, low, or undetectable Markedly narrowed lumen at color or power Doppler ultrasound Total occlusion of the ICA: No detectable patent lumen at main-scale ultrasound and no flow with spectral, power, and color Doppler ultrasound May be compensatory increased velocity in the contralateral carotid Dictated by: Dictated on workstation # [id number]
--- NOTE | 2019-12-30 08:53 | Discharge Summary ---
Diagnosis/Chief Complaint Date of Admission Dec 29, 2019 at 10:20 Date of Discharge Admission Diagnosis Admission Diagnosis SYNCOPE SACRAL FRACTURE ORTHOSTASIS CHRONIC HYPERTENSION ADVANCED AGE FRAILTY UNDERWEIGHT DEPRESSION CHRONIC MILD HYPONATREMIA Discharge Diagnosis SYNCOPE SACRAL FRACTURE ORTHOSTASIS CHRONIC HYPERTENSION ADVANCED AGE FRAILTY UNDERWEIGHT DEPRESSION CHRONIC MILD HYPONATREMIA MODERATE CAROTID STENOSIS Reason Hospital Visit PT IS AN 84 Y/O FEMALE WHO IS KNOWN TO ME FROM CLINIC. SHE PRESENTED TO THE HOSPITAL WITH SYNCOPAL EPISODE AT HOME. SHE REPORTS THAT SHE WAS GETTING UP TO GET BREAKFAST, FELT LIGHT-HEADED AND THEN SAT DOWN, SHE THEN GOT UP TO FIX HER BREAKFAST AFTER SITTING FOR A SHORT PERIOD OF TIME, THEN GOT LIGHT HEADED AGAIN, SAT DOWN AND THEN PASSED OUT. SHE WOKE UP AND YELLED FOR HER WHO CAME TO HELP HER UP FROM THE FLOOR. PER STAFF SHE WAS ABLE TO WALK TO THE AMBULANCE BY HERSELF. SHE STATES THAT SHE HAS A LITTLE BIT OF PAIN IN HER BACK, AND SHE HAS PAIN IN HER RIGHT FACE FROM WHERE SHE HIT THE GROUND. Discharge Summary Discharge Physical Examination Allergies: Coded Allergies: bacitracin (Verified Allergy, Mild, RASH, 10/15/19) lidocaine (Verified Allergy, Mild, RASH, 10/15/19) neomycin (Verified Allergy, Mild, RASH, 10/15/19) polymyxin B (Verified Allergy, Mild, RASH, 10/15/19) pramoxine (Verified Allergy, Mild, RASH, 10/15/19) Vitals & I&Os Vital Signs Date Time Temp Pulse Resp B/P (MAP) Pulse Ox O2 Delivery O2 Flow Rate FiO2 12/30/19 08:00 Room Air 12/30/19 06:58 62 12/30/19 04:00 36.9 16 168/70 (102) 98 Hospital Course SYNCOPE SACRAL FRACTURE ORTHOSTASIS CHRONIC HYPERTENSION ADVANCED AGE FRAILTY UNDERWEIGHT DEPRESSION CHRONIC MILD HYPONATREMIA SYNCOPE - WORK UP WITH ECHO PENDING CAROTID ULTRASOUND IMPRESSION: 1. Mild (<50%) stenosis of the right internal carotid artery. 2. Moderate (50-69%) stenosis of the left internal carotid artery. - ORTHOSTASIS NOTED IN THE ER - 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 - CARDIOLOGY CONSULTED SACRAL FRACTURE - SUPPORTIVE CARE ONLY AT THIS TIME, THIS WILL NEED TO HEAL BY SECONDARY INTENTION WITHOUT SURGICAL INTERVENTION - CT SCAN OF PELVIS FOLLOWS: FINDINGS: There is diffuse osteopenia. There is a nondisplaced fracture at the S5 level (image 87 series 602). Alignment appears normal. There are severe degenerative changes at L5- S1 and in the left hip joint. There are moderate degenerative changes in the right hip joint. There is internal fixation of the left femoral neck with 3 cephalo-cervical screws. These contact the cortex without significant extension beyond the cortex of the femoral head. There are mild degenerative changes in the sacroiliac joints bilaterally. No soft tissue fluid collections are seen. No focal muscular atrophy is seen. No distended loops of bowel are identified. The intrapelvic contents are suboptimally evaluated without contrast. There may be minimal free fluid the tip of the liver. There is marked relaxation of the pelvic floor with concern for prolapse. IMPRESSION: 1. Degenerative changes in the pelvis with nondisplaced fracture at the 5th sacral segment. 2. 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 3. Suspect minimal free fluid at the inferior tip of the liver. CHRONIC HYPERTENSION - ELEVATED BP IN ER - WILL CONTINUE WITH LOW DOSE DILTIAZEM ADVANCED AGE WITH FRAILTY AND LOW BODY WEIGHT WITH BMI OF 16 - WE HAVE ENCOURAGED INCREASE INTAKE TO IMPROVE HER WEIGHT, PT HAD GASTRIC SURGERY SEVERAL YEARS AGO AND HAS HAD TROUBLE KEEP HER WEIGHT UP SINCE THAT TIME. DEPRESSION - RESTART SSRI - PT ON LEXAPRO OUTPATIENT, WILL SWITCH TO CELEXA INPATIENT. CHRONIC MILD HYPONATREMIA - SUPPORTIVE CARE - WILL ORDER POWERADE AND ENSURE. Pending Labs Laboratory Tests 12/30/19 04:25: Triglycerides Level 65, Cholesterol Level 180, LDL Cholesterol Direct 115, VLDL Cholesterol 13, HDL Cholesterol 65 Discharge Instructions to patient/family Please see electronic discharge instructions given to patient. Discharge Medications Reviewed and agree with Discharge Medication list on patient's Discharge Instruction sheet Clinical Quality Measures DVT/VTE Risk/Contraindication: Risk Factor Score Per Nursin RFS Level Per Nursing on Admit: 4+=Very High ZEV FARRAR MD Dec 30, 2019 08:53
[2019-12-30 09:03] VITALS: BP_SYST 135; BP_SYST 146; BP_SYST 150; BP_DIAS 62; BP_DIAS 69; BP_DIAS 71
--- NOTE | 2019-12-30 09:03 | Progress Note - Cardiology ---
Cardiology SOAP Progress Note Subjective: Lying in bed, states she has had no further syncopal episodes. Reports episodes of "fast heartbeat at times, when strenuously exerting herself". Objective: I&O/Vital Signs 12/30/19 12/30/19 12/30/19 12/30/19 04:00 06:58 08:00 08:00 Temp 36.9 37.4 Pulse 56 62 68 Resp 16 16 B/P (MAP) 168/70 (102) 150/62 (91) Pulse Ox 98 100 O2 Delivery Room Air Room Air Room Air 12/30/19 12/30/19 12/30/19 09:03 11:49 12:52 Temp 37.2 Pulse 68 62 74 71 78 B/P (MAP) 150/62 (91) 172/72 (105) 146/69 (94) 135/71 (92) Pulse Ox 99 12/30/19 00:00 Intake Total 1390 ml Balance 1390 ml Weight (Pounds): 82 Weight (Ounces): 6.4 Weight (Calculated Kilograms): 37.569388 Constitutional: AAO x 3, well-developed, well-nourished Respiratory: No accessory muscle use, No respiratory distress; chest expansion is symmetric, chest is bilaterally symmetric, lungs clear to auscultation Cardiovascular: regular rate-rhythm; No JVD; S1 and S2, systolic murmur Gastrointestional: No tender; soft, round, audible bowel sounds Extremities: no lower extremity edema bilateral Neurologic/Psychiatric: grossly intact (moves all extremities) Skin: No rash on exposed areas, No ulcerations on exposed areas Results/Procedures: Labs Laboratory Tests 12/30/19 04:25: Triglycerides Level 65, Cholesterol Level 180, LDL Cholesterol Direct 115, VLDL Cholesterol 13, HDL Cholesterol 65H A/P: Assessment: Syncopal episodes x 2 of undetermined etiology - possibly orthostatic hypo tension - no further episodes following recent medication changes Carotid u/s of 12-30-2019 showed - Mild (<50%) stenosis of the right internal carotid artery. Moderate (50-69%) stenosis of the left internal carotid artery. Reports stress test greater than [address] Shabazz which did not show any issues Hypertension Sacral fracture History of hip fracture secondary to syncope in 2017. Depression, managed by primary care physician Chronic hyponatremia, managed by primary care physician Family h/o CAD - sister and father Plan: No further episodes of syncope Echocardiogram pending No evidence thus far of ana-arrhythmia - discussed consideration of ILR Advise MPI to eval coronary status BP not well controlled Chronic hyponatremia - likely r/t chronic diuretic tx - has been stopped Advise continued cessation of diuretic tx since this precludes her to electrolyte abnormalities and volume depletion Stop Cardizem since this may pre-dispose her to ana-arrhythmia - instead start Hydralazine for BP control Monitor lab closely We have reviewed notes per MADIE Hauser Dec 30, 2019 09:03
--- NOTE | 2019-12-30 09:21 | Discharge Inst-Simple/Standard ---
Discharge Inst-Standard Reconcile Patient Problems Problems Reviewed?: Yes Patient Instructions/Follow Up Plan of Care/Instructions/FU: follow up with cardiology in the next few weeks - will likely be a phone call follow up. [facility] via a phone call visit Activity as Tolerated: Yes Discharge Diet: Regular Diet Return to The Hospital For: any concern for recurrent passing out episodes, any concer for chest pain, shortness of breath, abdominal pain, nausea ZEV FARRAR MD Dec 30, 2019 09:21
[2019-12-30] MEDS ORDERED: LIDOCAINE 1% INJ 20 ML 20 ML VIAL ONE (10:14)
--- NOTE | 2019-12-30 10:20 | Progress Note - Cardiology ---
Cardiology SOAP Progress Note Subjective: No further syncope Denies cp or palp or shortness of breath or swelling Gen malaise and weakness present but better compared to time of admission No n/v/d Objective: I&O/Vital Signs 12/30/19 12/30/19 12/30/19 12/30/19 00:41 01:00 04:00 06:58 Temp 37.1 36.9 Pulse 56 67 56 62 Resp 18 16 B/P (MAP) 157/72 (100) 168/70 (102) Pulse Ox 97 98 O2 Delivery Room Air Room Air 12/30/19 12/30/19 12/30/19 08:00 08:00 09:03 Temp 37.4 Pulse 68 68 71 78 Resp 16 B/P (MAP) 150/62 (91) 150/62 (91) 146/69 (94) 135/71 (92) Pulse Ox 100 O2 Delivery Room Air Room Air 12/30/19 00:00 Intake Total 1390 ml Balance 1390 ml Weight (Pounds): 82 Weight (Ounces): 6.4 Weight (Calculated Kilograms): 37.501729 Constitutional: AAO x 3, well-developed, well-nourished Respiratory: No accessory muscle use, No respiratory distress; chest expansion is symmetric, chest is bilaterally symmetric, lungs clear to auscultation Cardiovascular: regular rate-rhythm; No JVD; S1 and S2, systolic murmur Gastrointestional: No tender; soft, round, audible bowel sounds Extremities: no lower extremity edema bilateral Neurologic/Psychiatric: grossly intact (moves all extremities) Skin: No rash on exposed areas, No ulcerations on exposed areas Results/Procedures: Labs Laboratory Tests 12/30/19 04:25: Triglycerides Level 65, Cholesterol Level 180, LDL Cholesterol Direct 115, VLDL Cholesterol 13, HDL Cholesterol 65H Laboratory Tests 12/29/19 09:05 A/P: Assessment: Syncopal episodes x 2 of undetermined etiology - possibly orthostatic hypotension but cannot exclude bradycardia - no further episodes following recent medication changes Carotid u/s of 12-30-2019 showed - Mild (<50%) stenosis of the right internal carotid artery. Moderate (50-69%) stenosis of the left internal carotid artery. Echo on 12/30/19: LVEF 60-65%, mod (valve area 1.3 sq cm), RVSP 25 mmHg, grade 1 lewis dysfunction Reports stress test greater than [address] Shabzaz which did not show any issues Hypertension Sacral fracture History of hip fracture secondary to syncope in 2017. Depression, managed by primary care physician Chronic hyponatremia, managed by primary care physician Family h/o CAD - sister and father Plan: I reviewed her records and interviewed and examined her Bradyarrhythmia is a concern. We recommended ILR and discussed in detail the [place], procedure, risks, benefits and potential complications. She understands and provides informed consent Hold off on rate-lowering meds Low-dose hydralazine for BP control Instructed in measures to avoid postural hypotensio No further episodes of syncope Advise MPI to eval coronary status. No ACS at this time. MPI can be undertaken as outpt Chronic hyponatremia - likely r/t chronic diuretic tx - has been stopped Advise continued cessation of diuretic tx since this precludes her to electrolyte abnormalities and volume depletion Monitor lab closely OWEN STONE MD FACP FAC CCDS Dec 30, 2019 10:19
[2019-12-30] MEDS ORDERED: HYDR-3923 PO (10:59)
--- NOTE | 2019-12-30 11:35 | OPERATIVE REPORT ---
DATE OF SERVICE: 12/30/2019 PREOPERATIVE DIAGNOSIS: Syncope. POSTOPERATIVE DIAGNOSIS: Syncope. PROCEDURE: Implantable loop recorder implantation. INDICATIONS: The patient is an 84-year-old lady who has had syncope. Implantable loop recorder implantation was carried out to evaluate for any cardiac arrhythmias, the cause of her syncope. DESCRIPTION OF PROCEDURE: Informed consent was obtained. The left prepectoral area was prepared and draped in the usual sterile fashion. We used the tools provided with the [employer] implantable loop recorder to make a pocket anterior to the fourth intercostal space on the left side into which the device was placed and the wound was closed with Dermabond, Steri-Strips, and a stitch. She tolerated the procedure well. The serial number of the device is [id number]. This is a [employer] Reveal LINQ device. Job ID: [id number] DocumentID: [id number] Dictated Date: 12/30/2019 10:45:48 Instrument Technician Helper Date: 12/30/2019 11:35:39 Dictated By: OWEN STONE MD, MA, FACP, FACC,
[2019-12-30 11:49] VITALS: BP 172/72
[2019-12-30 13:40] VITALS: BP 172/72
[2019-12-30] MEDS ORDERED: hydrALAZINE (APRESOLINE) 25 MG TAB PO ONE (21:00)
== END 2019-12-30 13:40 | disposition home or self-care (01) ==
LOC: EDUNIT# 09:01 → ER 09:02 → 4TH 10:20
PROVIDERS: ADMIT Family Medicine; ATTEND Family Medicine
DX: R55 Syncope and collapse (principal); I07.1 Rheumatic tricuspid insufficiency; F32.9 Major depressive disorder, single episode, unspecified; E87.1 Hypo-osmolality and hyponatremia; I10 Essential (primary) hypertension; S32.10XA Unspecified fracture of sacrum, initial encounter for closed fracture; R54 Age-related physical debility; I65.23 Occlusion and stenosis of bilateral carotid arteries; E78.00 Pure hypercholesterolemia, unspecified; K21.9 Gastro-esophageal reflux disease without esophagitis; M19.90 Unspecified osteoarthritis, unspecified site; M81.0 Age-related osteoporosis without current pathological fracture; Z88.1 Allergy status to other antibiotic agents; Z88.8 Allergy status to other drugs, medicaments and biological substances; Z79.899 Other long term (current) drug therapy; Z79.891 Long term (current) use of opiate analgesic
CPT/HCPCS: 33285; 36415; 70450; 71045; 72125; 72192; 80053; 80061; 81000; 83735; 83874; 84484; 85025; 85610; 85730; 93005; 93041; 93306; 93880; G0378

== ENCOUNTER → 2020-02-25 | Outpatient (CLI) | payer MEDICARE, OTHER ==
[~2020-02-25] VITALS: Ht 160 cm; Wt 41.0 kg
[~2020-02-25] MED LIST changes: +CATHETER FLUSH 10 ML SYR IV PRN; +HYDR-3923 PO; +REGADENOSON 0.4 MG/5 ML SYR (LEXISCAN) IV ONE
[2020-02-25 09:04] VITALS: BP 184/84
[2020-02-25 09:07] VITALS: BP 159/73
--- NOTE | 2020-02-25 20:42 | STRESS TEST ---
DATE OF SERVICE: 02/25/2020 RESTING AND POST REGADENOSON TECHNETIUM-99M TETROFOSMIN SPECT CT IMAGING ORDERING PHYSICIAN: Susan Fonseca APRN PRIMARY PHYSICIAN: Dr. Bradshaw. CLINICAL DIAGNOSES: Shortness of breath, hypertension, paroxysmal atrial fibrillation. Baseline images were carried out after injection of 10.94 mCi of technetium-99m Tetrofosmin. This was followed by 0.4 mg regadenoson and 31.9 mCi of technetium-99m Tetrofosmin for stress imaging. The electrocardiogram showed sinus rhythm with nonspecific T-wave abnormality. This did not change significantly with regadenoson infusion. The patient noted some chest tightness following regadenoson infusion, which resolved in a few minutes. Review of images at rest and following stress does not indicate any significant perfusion defects consistent with myocardial ischemia or infarction. Gated images show normal global left ventricular systolic function with normal regional wall motion. Left ventricular ejection fraction is calculated to be 53%. Left ventricular end diastolic volume is 62 mL. TID is absent (1.03). CONCLUSIONS: 1. No evidence of any significant myocardial ischemia or infarction. 2. Normal regional wall motion. 3. Normal global left ventricular systolic function with a calculated ejection fraction of 53%. Job ID: [id number] DocumentID: [id number] Dictated Date: 02/25/2020 16:42:29 Feather Renovator Date: 02/25/2020 20:42:20 Dictated By: OWNE STONE MD, MA, FACP, FACC,
== END ==
LOC: CARD 07:36
PROVIDERS: ATTEND Nurse Practitioner Family
DX: I35.1 Nonrheumatic aortic (valve) insufficiency (principal); I10 Essential (primary) hypertension; I48.0 Paroxysmal atrial fibrillation
CPT/HCPCS: 78452; 93017

== ENCOUNTER 2020-12-26 10:02 | Emergency (ER) | payer MEDICARE, OTHER ==
[~2020-12-26] VITALS: Ht 160 cm; Wt 40.0 kg
[~2020-12-26 10:02] MED LIST changes: -CATHETER FLUSH 10 ML SYR IV PRN; -ESCI5TAB12 PO; +ESCI5TAB16 PO; -REGADENOSON 0.4 MG/5 ML SYR (LEXISCAN) IV ONE
[2020-12-26 10:34] LABS: BASOPHILS % (AUTO) 1 % (0-10); EOSINOPHILS # (AUTO) 0.1 10^3/uL (0.0-0.3); EOSINOPHILS % (AUTO) 2 % (0-10); HEMATOCRIT 34 % (35-52); HEMOGLOBIN 11.7 g/dL (11.5-16.0); LYMPHOCYTES # (AUTO) 0.9 10^3/uL (1.0-4.0); LYMPHOCYTES % (AUTO) 17 % (12-44); MEAN CORPUSCULAR HEMOGLOBIN 32 pg (25-34); MEAN CORPUSCULAR HGB CONC 34 g/dL (32-36); MEAN CORPUSCULAR VOLUME 93 fL (80-99); MEAN PLATELET VOLUME 9.6 fL (9.0-12.2); MONOCYTES # (AUTO) 0.4 10^3/uL (0.0-1.0); MONOCYTES % (AUTO) 8 % (0-12); NEUTROPHILS # (AUTO) 3.9 10^3/uL (1.8-7.8); NEUTROPHILS % (AUTO) 73 % (42-75); PLATELET COUNT 255 10^3/uL (130-400); WHITE BLOOD COUNT 5.3 10^3/uL (4.3-11.0)
--- NOTE | 2020-12-26 10:44 | ED Trauma-Multisystem ---
General Chief Complaint: Trauma-Non Activation Stated Complaint: FALL Nursing Triage Note: ARRIVED VIA AMB AFTER FALLING AT HOME ON HER BOTTOM THEN HITTING HER HEAD. DENIES HEAD/NECK PAIN. UNKNONWN LOC. STATES SHE WOKE UP FEELING DIZZY THIS AM. Source of Information: Patient, Spouse (SUSAN KOHLER,MED STUDENT) History of Present Illness Date Seen by Provider: Dec 26, 2020 Time Seen by Provider: 10:25 Initial Comments Pt is an 85yo female with PMH of HTN, osteoporosis and macular degeneration who presented to the ED following a fall. She states that she started feeling dizzy this morning and was unable to get to a chair before she fell. States she fell on her tail bone, then fell back hitting her head on the ground. She does not think she lost consciousness. She denies any pain currently but does complain of a dry mouth. She states something similar happened one year ago and thinks she had AFib at that time. Her notes that her blood pressures have been hard to control recently, and her medications have been getting changed every few weeks. She denies fever, chills, chest pain, trouble breathing or weakness. Does report feeling a fast heartbeat when she was dizzy. Also notes that she has had some tingling bilaterally below the knees since the fall. Occurred: This Morning Pain/Injury Location: None Method of Injury: Fall Loss of Consciousness: No Loss of Consciousness Associated Symptoms (Fall): Dizziness, Lightheadedness (SUSAN KOHLER,MED STUDENT) Allergies and Home Medications Allergies Coded Allergies: bacitracin (Verified Allergy, Mild, RASH, 10/15/19) lidocaine (Verified Allergy, Mild, RASH, 10/15/19) neomycin (Verified Allergy, Mild, RASH, 10/15/19) polymyxin B (Verified Allergy, Mild, RASH, 10/15/19) pramoxine (Verified Allergy, Mild, RASH, 10/15/19) Home Medications Acetaminophen 650 Mg Tablet.er, 650 MG PO HS, (Reported) Acetaminophen 650 Mg Tablet.er, 650 MG PO DAILY PRN for PAIN-MILD, (Reported) Calcium Carbonate 300 Mg Tab.chew, 300 MG PO PRN PRN for INDIGESTION, (Reported) Calcium Citrate/Vitamin D3 1 Each Tablet, 1 TAB PO DAILY, (Reported) Cetirizine HCl 10 Mg Tablet, 10 MG PO DAILY, (Reported) Cholecalciferol (Vitamin D3) 2,000 Unit Tablet, 2,000 UNIT PO DAILY, (Reported) Cyanocobalamin (Vitamin B-12) 2,500 Mcg Tablet, 2,500 MCG PO Q48H, (Reported) Docusate Sodium 100 Mg Capsule, 100 MG PO BID, (Reported) Escitalopram Oxalate 5 Mg Tablet, 5 MG PO HS, (Reported) Famotidine 40 Mg Tablet, 40 MG PO HS, (Reported) Hydralazine HCl 25 Mg Tablet, 25 MG PO BID Prescribed by: SUSAN GANDHI on 12/30/19 1059 Multivitamin 1 Each Tablet, 1 EACH PO DAILY, (Reported) Pyridoxine HCl 100 Mg Tablet, 100 MG PO BID, (Reported) Simvastatin 20 Mg Tablet, 20 MG PO HS, (Reported) Vit A/Vit C/Vit E/Zinc/Copper 1 Each Tablet, 1 EACH PO DAILY, (Reported) Patient Home Medication List Home Medication List Reviewed: Yes (HARMONY JIANG MD) Review of Systems Review of Systems Constitutional: No chills; dizziness; No fever, No weakness (denies acute vision changes, does have macular degeneration) Mouth: Other (dry ) Respiratory: No cough, No short of breath Cardiovascular: Denies Chest Pain, Denies Edema; Lightheadedness Gastrointestinal: No abdominal pain, No nausea, No vomiting Musculoskeletal: No back pain, No joint pain, No muscle weakness Skin: no symptoms reported Psychiatric/Neurological: Denies Headache; Numbness (BLE), Tingling (BLE); Denies Weakness (SUSAN KOHLER MED STUDENT) Ears: No Symptoms Reported Nose: No Symptoms Reported Mouth: See HPI Genitourinary: no symptoms reported (HARMONY JIANG MD) Past Aocxgkm-Btbgbe-Ulzfas Hx Past Med/Social Hx: Reviewed Nursing Past Med/Soc Hx (HARMONY JIANG MD) Patient Social History Alcohol Use: Denies Use Smoking Status: Never a Smoker 2nd Hand Smoke Exposure: No Recent Infectious Disease Expo: No Recent Hopitalizations: No (SUSAN KOHLER MED STUDENT) Immunizations Up To Date Tetanus Booster (TDap): Unknown Date of Pneumonia Vaccine: Jul 01, 2019 Date of Influenza Vaccine: Jul 01, 2019 (SUSAN KOHLER MED STUDENT) Seasonal Allergies Seasonal Allergies: Yes (KOHLER,SUSAN,MED STUDENT) Past Medical History Surgeries: Yes (RSO, BREAST BX, CATARACTS, BOWEL RESCTION, FX HIP) Breast, Hysterectomy, Orthopedic Respiratory: No (ASTHMA CHILD) Currently Using CPAP: No Currently Using BIPAP: No Cardiac: Yes Atrial Fibrillation, High Cholesterol, Hypertension, Syncope Neurological: No 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: No 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: Tubal Ligation Sexually Transmitted Disease: No HIV/AIDS: No Genitourinary: No Gastrointestinal: Yes (GERD) Gastroesophageal Reflux, Obstructive Bowel, Chronic Constipation, Hiatal Hernia Musculoskeletal: Yes (ARTHRITIS, OSTEOPOROSIS) Osteoporosis, Arthritis Endocrine: No HEENT: Yes (GLASSES, PARTIAL ) Macular Degeneration Loss of Vision: Denies Hearing Impairment: Denies Cancer: No Psychosocial: Yes Sleep Difficulties Integumentary: No Blood Disorders: No Adverse Reaction/Blood Tranf: No (HAS HAD BLOOD WITH NO REACTION) (SUSAN KOHLER,MED STUDENT) Heart Murmur (HARMONY JIANG MD) Family Medical History Congenital disease G8 BROTHER (? DOWN SYNDROME) Hypertension 19 MOTHER G8 SISTER Kidney disease sister Myocardial infarction 19 FATHER Neoplasm 19 MOTHER (BREAST CANCER) Visual disorder 19 MOTHER (MACULAR DEGENERATION) Heart Disease, Cancer, Hypertension, Renal Disease, Other Conditions/Hx (SUSAN KOHLERMED STUDENT) Physical Exam Vital Signs Vital Signs - First Documented 12/26/20 10:02 Temp 37.0 Pulse 68 Resp 16 B/P (MAP) 179/84 (115) Pulse Ox 98 O2 Delivery Room Air (HARMONY JIANG MD) Height, Weight, BMI Height: 5'3.00" Weight: 82lbs. 6.4oz. 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, 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 Norm as Tested Skin: Normal Color, Warm/Dry Lymphatic: No Adenopathy (SUSAN KOHLER,MED STUDENT) Progress/Results/Core Measures Results/Orders Lab Results Laboratory Tests Test 12/26/20 10:10 12/26/20 11:35 Range/Units White Blood Count 5.3 4.3-11.0 10^3/uL Red Blood Count 3.70 L 3.80-5.11 10^6/uL Hemoglobin 11.7 11.5-16.0 g/dL Hematocrit 34 L 35-52 % Mean Corpuscular Volume 93 80-99 fL Mean Corpuscular Hemoglobin 32 25-34 pg Mean Corpuscular Hemoglobin Concent 34 32-36 g/dL Red Cell Distribution Width 14.1 10.0-14.5 % Platelet Count 255 130-400 10^3/uL Mean Platelet Volume 9.6 9.0-12.2 fL Immature Granulocyte % (Auto) 1 % Neutrophils (%) (Auto) 73 42-75 % Lymphocytes (%) (Auto) 17 12-44 % Monocytes (%) (Auto) 8 0-12 % Eosinophils (%) (Auto) 2 0-10 % Basophils (%) (Auto) 1 0-10 % Neutrophils # (Auto) 3.9 1.8-7.8 10^3/uL Lymphocytes # (Auto) 0.9 L 1.0-4.0 10^3/uL Monocytes # (Auto) 0.4 0.0-1.0 10^3/uL Eosinophils # (Auto) 0.1 0.0-0.3 10^3/uL Basophils # (Auto) 0.0 0.0-0.1 10^3/uL Immature Granulocyte # (Auto) 0.0 0.0-0.1 10^3/uL Prothrombin Time 15.3 H 12.2-14.7 SEC INR Comment 1.2 0.8-1.4 Sodium Level 137 135-145 MMOL/L Potassium Level 4.0 3.6-5.0 MMOL/L Chloride Level 102 98-107 MMOL/L Carbon Dioxide Level 21 21-32 MMOL/L Anion Gap 14 5-14 MMOL/L Blood Urea Nitrogen 19 H 7-18 MG/DL Creatinine 0.76 0.60-1.30 MG/DL Estimat Glomerular Filtration Rate > 60 BUN/Creatinine Ratio 25 Glucose Level 99 70-105 MG/DL Calcium Level 9.0 8.5-10.1 MG/DL Corrected Calcium 8.9 8.5-10.1 MG/DL Magnesium Level 1.7 1.6-2.4 MG/DL Total Bilirubin 0.6 0.1-1.0 MG/DL Aspartate Amino Transf (AST/SGOT) 32 5-34 U/L Alanine Aminotransferase (ALT/SGPT) 22 0-55 U/L Alkaline Phosphatase 56 40-136 U/L Troponin I < 0.028 <0.028 NG/ML Total Protein 7.0 6.4-8.2 GM/DL Albumin 4.1 3.2-4.5 GM/DL Urine Color YELLOW Urine Clarity CLEAR Urine pH 8.0 5-9 Urine Specific [place] 1.015 L 1.016-1.022 Urine Protein NEGATIVE NEGATIVE Urine Glucose (UA) NEGATIVE NEGATIVE Urine Ketones NEGATIVE NEGATIVE Urine Nitrite NEGATIVE NEGATIVE Urine Bilirubin NEGATIVE NEGATIVE Urine Urobilinogen 0.2 < = 1.0 MG/DL Urine Leukocyte Esterase NEGATIVE NEGATIVE Urine RBC (Auto) NEGATIVE NEGATIVE Urine RBC NONE /HPF Urine WBC NONE /HPF Urine Squamous Epithelial Cells NONE /HPF Urine Crystals NONE /LPF Urine Bacteria NEGATIVE /HPF Urine Casts NONE /LPF Urine Mucus NEGATIVE /LPF Urine Culture Indicated NO (HARMONY JIANG MD) My Orders Orders - HARMONY JIANG MD Ct Head/Cervical Spine Wo (12/26/20 10:25) Pelvis (12/26/20 10:25) Ct Thoracic/Lumbar Spine Wo (12/26/20 10:25) Ed Iv/Invasive Line Start (12/26/20 10:25) Ekg Tracing (12/26/20 10:25) Monitor-Rhythm Ecg Trace Only (12/26/20 10:25) Orthostatic Vital Signs (Adult (12/26/20 10:25) Cbc With Automated Diff (12/26/20 10:25) Comprehensive Metabolic Panel (12/26/20 10:25) Magnesium (12/26/20 10:25) Protime With Inr (12/26/20 10:25) Troponin I (12/26/20 10:25) Ua Culture If Indicated (12/26/20 10:25) Ns Iv 500 Ml (Sodium Chloride 0.9%) (12/26/20 12:45) (HARMONY JIANG MD) Medications Given in ED Current Medications Medications Dose Ordered Sig/Sam Route Start Time Stop Time Status Last Admin Dose Admin Sodium Chloride 500 ml @ 0 mls/hr Q0M ONCE IV 12/26/20 12:45 12/26/20 12:46 DC 12/26/20 12:43 500 MLS/HR (HARMONY JIANG MD) Vital Signs/I&O 12/26/20 12/26/20 12/26/20 10:02 11:37 13:30 Temp 37.0 Pulse 68 63 62 64 70 Resp 16 16 B/P (MAP) 179/84 (115) 173/76 (108) 168/69 178/92 (120) 171/101 (124) Pulse Ox 98 98 O2 Delivery Room Air Room Air (HARMONY JIANG MD) Blood Pressure Mean: 115 Progress Progress Note : Progress Note Patient is anticoagulated on Eliquis. Patient complained no neck or back pain. However, she did complain of some paresthesias in her lower extremities. For this reason the head and entire spine was imaged with CT. No acute injuries were identified. Labs were relatively unremarkable. Orthostatic blood pressures were unremarkable. Patient was initially quite hypertensive. This was trending down to an acceptable range prior to discharge. Review of chart did reveal history of carotid stenosis. She is to have reimaging soon. I encouraged her to feel obtain imaging as soon as possible. Since she is asymptomatic throughout the course of her ER stay, emergent imaging or transfer was not pursued. Return precautions were discussed. No pleural effusion was identified on the CT of the spine. I did confirm with the radiologist the density of this fluid was not blood. The importance of follow-up in regard to this effusion was discussed. (HARMONY JIANG MD) Initial ECG Impression Date: Dec 26, 2020 Initial ECG Impression Time: 10:21 Initial ECG Rate: 61 Comment Sinus rhythm with no ST elevation or depression. Right bundle branch block. No axis deviation. (HARMONY JIANG MD) Diagnostic Imaging Diagonstic Imaging: CT Plain Films/CT/US/NM/MRI: other (Thoracolumbar spine) Comments CT spine was reviewed by me and report reviewed. See report below: [facility] [id number] PT STATUS: REG ER : 1935 PHYSICIAN: HARMONY JIANG MD ADMIT DATE: 12/26/20/ER Signed Date of Exam:12/26/20 CT THORACIC/LUMBAR SPINE WO EXAMINATION: CT thoracic and lumbar spine without contrast. TECHNIQUE: Multiple contiguous axial images were obtained through the thoracic and lumbar spine without the use of intravenous contrast. Sagittal and coronal reformations were then performed. All CT scans use one or more of the following dose optimizing techniques: automated exposure control, MA and/or KvP adjustment based on a patient size and exam type, or iterative reconstruction. HISTORY: Trauma COMPARISON: None available. FINDINGS: The alignment of the thoracic and lumbar spine is normal. Vertebral body heights are normal and no fracture is seen. Facet joints are normal. Disk heights are normal. There is no spinal canal stenosis. Limited views of the soft tissues show a moderate right pleural effusion with overlying atelectasis. No pleural effusion is simple fluid and not blood. Coronary arteries are heavily calcified. Aorta is heavily calcified. The aorta is normal. IMPRESSION: 1. No thoracic or lumbar spine fracture. Dictated by: Dictated on workstation # [id number] Dict: 12/26/20 1139 Trans: 12/26/20 1249 [facility] [id number] Interpreted by: EVERETTE MUÑOZ MD Electronically signed by: EVERETTE MUÑOZ MD 12/26/20 1249 Diagonstic Imaging: Xray Plain Films/CT/US/NM/MRI: pelvis Comments X-ray pelvis viewed by me and report reviewed. See report below: NAME: YANNA LONG [facility] REC#: [id number] PT STATUS: DEP ER : 1935 PHYSICIAN: HARMONY JIANG MD ADMIT DATE: 12/26/20/ER Signed Date of Exam:12/26/20 PELVIS INDICATION: Fall. FINDINGS: There has been previous open reduction and internal fixation of left femoral neck fracture with 3 partially threaded cannulated screws. Bony pelvis appears to be intact. There is no fracture or dislocation. There are degenerative changes in the spine. IMPRESSION: No acute fracture or dislocation. Dictated by: Dictated on workstation # [id number] Dict: 12/26/20 1145 Trans: 12/26/208 [facility] [id number] Interpreted by: OKSANA BREEN MD Electronically signed by: OKSANA BREEN MD 12/26/20 1628 Diagonstic Imaging: CT Plain Films/CT/US/NM/MRI: c-spine, head Comments CT head and C-spine viewed by me and report reviewed. See report below: NAME: YANNA LONG [facility] REC#: [id number] PT STATUS: DEP ER : 1935 PHYSICIAN: HARMONY JIANG MD ADMIT DATE: 12/26/20/ER Signed Date of Exam:12/26/20 CT HEAD/CERVICAL SPINE WO PROCEDURE: CT head and CT cervical spine without contrast. TECHNIQUE: Multiple contiguous axial images were obtained through the brain and cervical spine without the use of intravenous contrast. Sagittal and coronal reformations through the cervical spine were then performed. Auto Exposure Controls were utilized during the CT exam to meet ALARA standards for radiation dose reduction. INDICATION: Head and neck pain after a fall COMPARISON: 12/29/2019 FINDINGS: There is prominence of the ventricles and sulci. There is chronic small vessel ischemic disease. There is no hydrocephalus. There is no midline shift. There is no mass, hemorrhage or extra-axial fluid collection. The calvarium is intact. Sinuses and mastoid air cells are clear. There are several millimeters of anterolisthesis of C4 on C5. There is multilevel degenerative disc disease. The anterolisthesis of C4 on C5 is unchanged when compared with 12/29/2019. The vertebral body heights are well-maintained. There is no fracture or traumatic subluxation. The odontoids intact and the lateral masses are well aligned. The prevertebral soft tissues are within normal limits. IMPRESSION: Atrophy and some chronic microvascular ischemic disease however no acute intracranial abnormality. Moderately severe cervical spondylosis and multilevel degenerative disc disease in the cervical spine. There is however no acute fracture or traumatic subluxation. There is unchanged anterolisthesis of C4 on C5. Dictated by: Dictated on workstation # [id number] Dict: 12/26/20 1119 Trans: 12/26/201627 [facility] [id number] Interpreted by: OKSANA BREEN MD Electronically signed by: OKSANA BREEN MD 12/26/201627 (HARMONY JIANG MD) Departure Impression Primary Impression: Light-headedness Additional Impressions: Fall on same level Qualified Codes: W18.30XA - Fall on same level, unspecified, initial encounter Pleural effusion Minor head injury Qualified Codes: S09.90XA - Unspecified injury of head, initial encounter Carotid stenosis Qualified Codes: I65.23 - Occlusion and stenosis of bilateral carotid arteries Anticoagulated Disposition: HOME, SELF-CARE Condition: Improved Departure-Patient Inst. Decision time for Depature: 12:46 (HARMONY JIANG MD) Referrals: ZEV BRADSHAW MD (PCP/Family) Primary Care Physician Patient Instructions: Carotid Artery Stenosis (DC), Minor Head Injury Add. Discharge Instructions: Call the offices of Dr. Bradshaw and Dr. Orozco on Monday for follow-up. Read them the instructions below. You have a pleural effusion (fluid buildup in the right chest cavity) that needs to be followed and evaluated further. Consider a referral to a human resources records clerk such as Dr. Steve. You also need to follow-up for repeat carotid ultrasound. This should be done soon since you have had an episode of lightheadedness causing you to fall. Return to the emergency room if you have worsening symptoms. Stay well-hydrated by drinking plenty of water and noncaffeinated clear liquids. Always take your time getting up from a lying or sitting position. If you feel lightheaded, stop and sit or lie down for your safety. If you are having persistent episodes of lightheadedness, please return to the emergency room. Call the ER with questions or concerns. All discharge instructions reviewed with patient and/or family. Voiced understanding. Medical Student Attestation and Attending Note: I have personally interviewed and examined this patient along with Susan Kohler, MS 4. I have reviewed student documentation including history, physical, and assessments. I agree with the documentation except where otherwise noted. Exam: General: Alert, oriented, no acute distress, well developed, thin HEENT: Normocephalic and atraumatic Neck: Nontender to palpation Heart: Regular rate and rhythm with loud systolic murmur Lungs: Clear to auscultation bilaterally with normal effort Abdomen: Soft, nontender, nondistended, normal bowel sounds Neuropsych: Alert, oriented, no focal deficits Skin: Warm and dry without rashes (HARMONY JIANG MD) Copy Copies To 1: ZEV BRADSHAW MD Copies To 2: OWEN OROZCO MD FACP FAC CCDS SUSAN KOHLER,MED STUDENT Dec 26, 2020 10:44 HARMONY JIANG MD Dec 26, 2020 12:39
[2020-12-26 10:48] LABS: ALANINE AMINOTRANSFERASE 22 U/L (0-55); ALBUMIN 4.1 GM/DL (3.2-4.5); ALKALINE PHOSPHATASE 56 U/L (40-136); BILIRUBIN,TOTAL 0.6 MG/DL (0.1-1.0); BUN/CREATININE RATIO 25; CARBON DIOXIDE 21 MMOL/L (21-32); CHLORIDE 102 MMOL/L (98-107); CREATININE SERUM 0.76 MG/DL (0.60-1.30); GFR ESTIMATED > 60; GLUCOSE 99 MG/DL (70-105); MAGNESIUM 1.7 MG/DL (1.6-2.4); SODIUM 137 MMOL/L (135-145)
[2020-12-26 10:55] LABS: INR 1.2 (0.8-1.4); PROTHROMBIN TIME PATIENT 15.3 SEC (12.2-14.7)
--- NOTE | 2020-12-26 11:35 | Diagnostic Imaging Report ---
PROCEDURE: CT head and CT cervical spine without contrast. TECHNIQUE: Multiple contiguous axial images were obtained through the brain and cervical spine without the use of intravenous contrast. Sagittal and coronal reformations through the cervical spine were then performed. Auto Exposure Controls were utilized during the CT exam to meet ALARA standards for radiation dose reduction. INDICATION: Head and neck pain after a fall COMPARISON: 12/29/2019 FINDINGS: There is prominence of the ventricles and sulci. There is chronic small vessel ischemic disease. There is no hydrocephalus. There is no midline shift. There is no mass, hemorrhage or extra-axial fluid collection. The calvarium is intact. Sinuses and mastoid air cells are clear. There are several millimeters of anterolisthesis of C4 on C5. There is multilevel degenerative disc disease. The anterolisthesis of C4 on C5 is unchanged when compared with 12/29/2019. The vertebral body heights are well-maintained. There is no fracture or traumatic subluxation. The odontoids intact and the lateral masses are well aligned. The prevertebral soft tissues are within normal limits. IMPRESSION: Atrophy and some chronic microvascular ischemic disease however no acute intracranial abnormality. Moderately severe cervical spondylosis and multilevel degenerative disc disease in the cervical spine. There is however no acute fracture or traumatic subluxation. There is unchanged anterolisthesis of C4 on C5. Dictated by: Dictated on workstation # [id number]
[2020-12-26 11:37] VITALS: BP_SYST 171; BP_SYST 173; BP_SYST 178; BP_DIAS 101; BP_DIAS 76; BP_DIAS 92
[2020-12-26 11:43] LABS: BILIRUBIN,URINE NEGATIVE (NEGATIVE); CLARITY,URINE CLEAR; COLOR,URINE YELLOW; GLUCOSE, URINE (UA) NEGATIVE (NEGATIVE); KETONES,URINE NEGATIVE (NEGATIVE); LEUKOCYTE ESTERASE ,URINE NEGATIVE (NEGATIVE); NITRITE,URINE NEGATIVE (NEGATIVE); PROTEIN,URINE NEGATIVE (NEGATIVE)
[2020-12-26 11:49] LABS: BACTERIA,URINE NEGATIVE /HPF
--- NOTE | 2020-12-26 11:52 | Diagnostic Imaging Report ---
EXAMINATION: CT thoracic and lumbar spine without contrast. TECHNIQUE: Multiple contiguous axial images were obtained through the thoracic and lumbar spine without the use of intravenous contrast. Sagittal and coronal reformations were then performed. All CT scans use one or more of the following dose optimizing techniques: automated exposure control, MA and/or KvP adjustment based on a patient size and exam type, or iterative reconstruction. HISTORY: Trauma COMPARISON: None available. FINDINGS: The alignment of the thoracic and lumbar spine is normal. Vertebral body heights are normal and no fracture is seen. Facet joints are normal. Disk heights are normal. There is no spinal canal stenosis. Limited views of the soft tissues show a moderate right pleural effusion with overlying atelectasis. No pleural effusion is simple fluid and not blood. Coronary arteries are heavily calcified. Aorta is heavily calcified. The aorta is normal. IMPRESSION: 1. No thoracic or lumbar spine fracture. Dictated by: Dictated on workstation # [id number]
--- NOTE | 2020-12-26 11:52 | Diagnostic Imaging Report ---
INDICATION: Fall. FINDINGS: There has been previous open reduction and internal fixation of left femoral neck fracture with 3 partially threaded cannulated screws. Bony pelvis appears to be intact. There is no fracture or dislocation. There are degenerative changes in the spine. IMPRESSION: No acute fracture or dislocation. Dictated by: Dictated on workstation # [id number]
[2020-12-26] MEDS ORDERED: NS IV 500 ML 500 ML IV ONE (12:45)
[2020-12-26 13:30] VITALS: BP 168/69
== END 2020-12-26 13:30 | disposition home or self-care (01) ==
LOC: EDUNIT# 10:02 → ER 10:03
DX: S09.90XA Unspecified injury of head, initial encounter (principal); I65.23 Occlusion and stenosis of bilateral carotid arteries; J90 Pleural effusion, not elsewhere classified; R42 Dizziness and giddiness; I10 Essential (primary) hypertension; E78.00 Pure hypercholesterolemia, unspecified; K21.9 Gastro-esophageal reflux disease without esophagitis; K58.9 Irritable bowel syndrome, unspecified; K59.09 Other constipation; M81.0 Age-related osteoporosis without current pathological fracture; G47.9 Sleep disorder, unspecified; Z98.51 Tubal ligation status; Z87.01 Personal history of pneumonia (recurrent); Z88.1 Allergy status to other antibiotic agents; Z88.7 Allergy status to serum and vaccine; Z88.8 Allergy status to other drugs, medicaments and biological substances; Z79.01 Long term (current) use of anticoagulants; W18.30XA Fall on same level, unspecified, initial encounter; Z79.899 Other long term (current) drug therapy; Y92.009 Unspecified place in unspecified non-institutional (private) residence as the place of occurrence of the external cause
CPT/HCPCS: 36415; 70450; 72125; 72128; 72131; 72170; 80053; 81000; 83735; 84484; 85025; 85610; 93005

== ENCOUNTER → 2021-01-04 | Outpatient (CLI) | payer MEDICARE, OTHER ==
--- NOTE | 2021-01-04 10:15 | Diagnostic Imaging Report ---
INDICATION: Pleural effusion. COMPARISON: 12/29/2019 FINDINGS: Frontal and lateral radiographic views of the chest were obtained. Lungs are hyperinflated consistent with background obstructive pulmonary disease. Mild right basilar effusion is noted. There is no large effusion on the left. No pneumothorax is identified on either side. Cardiac silhouette and pulmonary vasculature are within normal limits. There is calcified aortic atherosclerosis. Osseous structures show no acute abnormalities. IMPRESSION: 1. Mild right basilar effusion. 2. Background obstructive pulmonary disease. Dictated by: Dictated on workstation # [id number]
== END ==
LOC: RAD 09:55
PROVIDERS: ATTEND Nurse Practitioner Family
DX: J90 Pleural effusion, not elsewhere classified (principal); J44.9 Chronic obstructive pulmonary disease, unspecified
CPT/HCPCS: 71046

== ENCOUNTER 2021-07-02 11:08 | Emergency (ER) | payer MEDICARE, OTHER ==
[~2021-07-02] VITALS: Ht 160 cm; Wt 40.8 kg
[2021-07-02] MEDS ORDERED: NS IV 500 ML 500 ML IV SCH (12:00)
--- NOTE | 2021-07-02 12:01 | ED General ---
General Chief Complaint: Dizziness/Syncope Stated Complaint: WEAKNESS Source of Information: Patient Exam Limitations: No Limitations History of Present Illness Date Seen by Provider: Jul 02, 2021 Time Seen by Provider: 11:30 Initial Comments To ER by EMS from home with general weakness onset this morning. She felt fine yesterday. Upon awakening this morning she had dizziness when getting out of bed. She was able to eat breakfast. However she feels "not right". She denies any chest pain or shortness of breath or headache or abdominal pain or nausea or vomiting. She cannot elaborate other than to say she just "does not feel right." Timing/Duration: 1-3 Hours Severity: Moderate Associated Systoms: Denies Symptoms Allergies and Home Medications Allergies Coded Allergies: bacitracin (Verified Allergy, Mild, RASH, 10/15/19) lidocaine (Verified Allergy, Mild, RASH, 10/15/19) neomycin (Verified Allergy, Mild, RASH, 10/15/19) polymyxin B (Verified Allergy, Mild, RASH, 10/15/19) pramoxine (Verified Allergy, Mild, RASH, 10/15/19) Patient Home Medication List Home Medication List Reviewed: Yes Acetaminophen (Acetaminophen ER) 650 Mg Tablet.er, 650 MG PO HS, (Reported) Entered as Reported by: CRYSTAL NEVES on 04/24/17 09 Acetaminophen (Acetaminophen ER) 650 Mg Tablet.er, 650 MG PO DAILY PRN for PAIN- MILD, (Reported) Entered as Reported by: CRYSTAL NEVES on 04/24/17 09 Calcium Carbonate (Tums) 300 Mg Tab.chew, 300 MG PO PRN PRN for INDIGESTION, (Reported) Entered as Reported by: CRYSTAL NEVES on 04/24/17 09 Calcium Citrate/Vitamin D3 (Calcium Citrate - Vit D3 Tab) 1 Each Tablet, 1 TAB PO DAILY, (Reported) Entered as Reported by: CRYSTAL NEVES on 04/24/17 09 Cetirizine HCl (Cetirizine HCl) 10 Mg Tablet, 10 MG PO DAILY, (Reported) Entered as Reported by: CRYSTAL NEVES on 04/24/17 09 Cholecalciferol (Vitamin D3) (Vitamin D3) 2,000 Unit Tablet, 2,000 UNIT PO ANGELES Y, (Reported) Entered as Reported by: ALBERTO BROWN on 10/15/19 0812 Cyanocobalamin (Vitamin B-12) (Vitamin B12) 2,500 Mcg Tablet, 2,500 MCG PO Q48H, (Reported) Entered as Reported by: ALBERTO BROWN on 10/15/19 0812 Docusate Sodium (Docusate Sodium) 100 Mg Capsule, 100 MG PO BID, (Reported) Entered as Reported by: CRYSTAL NEVES on 04/24/17 0903 Escitalopram Oxalate (Escitalopram Oxalate) 5 Mg Tablet, 5 MG PO HS, (Reported) Entered as Reported by: MARE MCDERMOTT on 11/07/16 0907 Famotidine (Famotidine) 40 Mg Tablet, 40 MG PO HS, (Reported) Entered as Reported by: CANDICE JIN on 10/06/15 1243 Hydralazine HCl (Hydralazine HCl) 25 Mg Tablet, 25 MG PO BID Prescribed by: MADIE GANDHI on 12/30/19 1059 Multivitamin (Multiple Vitamins) 1 Each Tablet, 1 EACH PO DAILY, (Reported) Entered as Reported by: ALBERTO BROWN on 10/15/19 0812 Pyridoxine HCl (Vitamin B-6) 100 Mg Tablet, 100 MG PO BID, (Reported) Entered as Reported by: CANDICE JIN on 10/06/15 1243 Simvastatin (Simvastatin) 20 Mg Tablet, 20 MG PO HS, (Reported) Entered as Reported by: MARE MCDERMOTT on 11/07/16 0907 Vit A/Vit C/Vit E/Zinc/Copper (Preservision Areds Tablet) 1 Each Tablet, 1 EACH PO DAILY, (Reported) Entered as Reported by: ALBERTO BROWN on 10/15/19 0812 Review of Systems Review of Systems Constitutional: see HPI EENTM: see HPI Respiratory: no symptoms reported Cardiovascular: no symptoms reported Genitourinary: no symptoms reported Musculoskeletal: no symptoms reported Skin: no symptoms reported Psychiatric/Neurological: No Symptoms Reported Hematologic/Lymphatic: No Symptoms Reported Past Wltemwg-Rzlpeq-Dxafzc Hx Immunizations Up To Date Tetanus Booster (TDap): Unknown Seasonal Allergies Seasonal Allergies: Yes Past Medical History Surgeries: Yes (RSO, BREAST BX, CATARACTS, BOWEL RESCTION, FX HIP) Breast, Hysterectomy, Orthopedic Respiratory: No (ASTHMA CHILD) Currently Using CPAP: No Currently Using BIPAP: No Cardiac: Yes Heart Murmur Neurological: No 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: No Female 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: Denies [employer] History: 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 DOWN SYNDROME) Hypertension 19 MOTHER G8 SISTER Kidney disease sister Myocardial infarction 19 FATHER Neoplasm 19 MOTHER (BREAST CANCER) Visual disorder 19 MOTHER (MACULAR DEGENERATION) Heart Disease, Cancer, Hypertension, Renal Disease, Other Conditions/Hx Physical Exam Vital Signs Vital Signs - First Documented 07/02/21 11:08 Temp 36.4 Pulse 67 Resp 18 B/P (MAP) 177/87 (117) Pulse Ox 99 O2 Delivery Room Air Capillary Refill : Height, Weight, BMI Height: 5'3.00" Weight: 82lbs. 6.4oz. [id number]; 15.00 BMI Method:Stated General Appearance: No Apparent Distress, WD/WN Eyes: Bilateral Eye Normal Inspection, Bilateral Eye PERRL, Bilateral Eye EOMI Respiratory: No Accessory Muscle Use, No Respiratory Distress Gastrointestinal: Normal Bowel Sounds, Non Tender, Soft Extremity: Normal Capillary Refill, Normal Inspection Neurologic/Psychiatric: Alert, Oriented x3 Skin: Normal Color, Warm/Dry Progress/Results/Core Measures Suspected Sepsis SIRS Temperature: Pulse: Respiratory Rate: Laboratory Tests 07/02/21 11:38: White Blood Count 4.5 Blood Pressure / Mean: Laboratory Tests 07/02/21 11:38: Creatinine 0.72, Platelet Count 256, Total Bilirubin 0.5 Results/Orders Lab Results Laboratory Tests Test 07/02/21 11:38 07/02/21 13:30 Range/Units White Blood Count 4.5 4.3-11.0 10^3/uL Red Blood Count 3.70 L 3.80-5.11 10^6/uL Hemoglobin 11.6 11.5-16.0 g/dL Hematocrit 34 L 35-52 % Mean Corpuscular Volume 93 80-99 fL Mean Corpuscular Hemoglobin 31 25-34 pg Mean Corpuscular Hemoglobin Concent 34 32-36 g/dL Red Cell Distribution Width 14.5 10.0-14.5 % Platelet Count 256 130-400 10^3/uL Mean Platelet Volume 9.5 9.0-12.2 fL Immature Granulocyte % (Auto) 0 % Neutrophils (%) (Auto) 76 H 42-75 % Lymphocytes (%) (Auto) 12 12-44 % Monocytes (%) (Auto) 7 0-12 % Eosinophils (%) (Auto) 3 0-10 % Basophils (%) (Auto) 1 0-10 % Neutrophils # (Auto) 3.4 1.8-7.8 10^3/uL Lymphocytes # (Auto) 0.6 L 1.0-4.0 10^3/uL Monocytes # (Auto) 0.3 0.0-1.0 10^3/uL Eosinophils # (Auto) 0.2 0.0-0.3 10^3/uL Basophils # (Auto) 0.0 0.0-0.1 10^3/uL Immature Granulocyte # (Auto) 0.0 0.0-0.1 10^3/uL Sodium Level 136 135-145 MMOL/L Potassium Level 3.6 3.6-5.0 MMOL/L Chloride Level 103 98-107 MMOL/L Carbon Dioxide Level 22 21-32 MMOL/L Anion Gap 11 5-14 MMOL/L Blood Urea Nitrogen 16 7-18 MG/DL Creatinine 0.72 0.60-1.30 MG/DL Estimat Glomerular Filtration Rate 77 BUN/Creatinine Ratio 22 Glucose Level 165 H 70-105 MG/DL Calcium Level 8.8 8.5-10.1 MG/DL Corrected Calcium 9.0 8.5-10.1 MG/DL Magnesium Level 1.9 1.6-2.4 MG/DL Total Bilirubin 0.5 0.1-1.0 MG/DL Aspartate Amino Transf (AST/SGOT) 23 5-34 U/L Alanine Aminotransferase (ALT/SGPT) 16 0-55 U/L Alkaline Phosphatase 53 40-136 U/L Total Protein 6.2 L 6.4-8.2 GM/DL Albumin 3.7 3.2-4.5 GM/DL Urine Color YELLOW Urine Clarity CLEAR Urine pH 8.0 5-9 Urine Specific [place] 1.010 L 1.016-1.022 Urine Protein NEGATIVE NEGATIVE Urine Glucose (UA) NEGATIVE NEGATIVE Urine Ketones NEGATIVE NEGATIVE Urine Nitrite NEGATIVE NEGATIVE Urine Bilirubin NEGATIVE NEGATIVE Urine Urobilinogen 0.2 < = 1.0 MG/DL Urine Leukocyte Esterase TRACE H NEGATIVE Urine RBC (Auto) NEGATIVE NEGATIVE Urine RBC 0-2 /HPF Urine WBC 0-2 /HPF Urine Squamous Epithelial Cells 0-2 /HPF Urine Crystals NONE /LPF Urine Bacteria TRACE /HPF Urine Casts NONE /LPF Urine Mucus NEGATIVE /LPF Urine Culture Indicated NO My Orders Orders - CHICHO BROWNING APRN Cbc With Automated Diff (07/02/21 11:57) Chest 1 View, Ap/Pa Only (07/02/21 11:57) Ekg Tracing (07/02/21 11:57) Ua Culture If Indicated (07/02/21 11:57) Straight Cath (Urinary) (07/02/21 11:57) Comprehensive Metabolic Panel (07/02/21 11:57) Magnesium (07/02/21 11:57) Ed Iv/Invasive Line Start (07/02/21 11:57) Ns Iv 500 Ml (Sodium Chloride 0.9%) (07/02/21 12:00) Ct Head Wo (07/02/21 11:57) Meclizine Tablet (Antivert Tablet) (07/02/21 13:00) Medications Given in ED Current Medications Medications Dose Ordered Sig/Sam Route Start Time Stop Time Status Last Admin Dose Admin Meclizine HCl 25 mg ONCE ONCE PO 07/02/21 13:00 07/02/21 13:01 DC 07/02/21 13:10 25 MG Vital Signs/I&O 07/02/21 11:08 Temp 36.4 Pulse 67 Resp 18 B/P (MAP) 177/87 (117) Pulse Ox 99 O2 Delivery Room Air Capillary Refill : Departure Communication (Admissions) EKG shows sinus no ST segment change rare PVC Impression Primary Impression: Dizziness Disposition: 01 HOME, SELF-CARE Condition: Stable Departure-Patient Inst. Decision time for Depature: 13:58 Referrals: ZEV FARRAR MD (PCP/Family) Primary Care Physician Patient Instructions: Vertigo (a Type of Dizziness) (DC) CHICHO BROWNING APRN Jul 02, 2021 12:01
[2021-07-02 12:06] LABS: BASOPHILS % (AUTO) 1 % (0-10); EOSINOPHILS # (AUTO) 0.2 10^3/uL (0.0-0.3); EOSINOPHILS % (AUTO) 3 % (0-10); HEMATOCRIT 34 % (35-52); HEMOGLOBIN 11.6 g/dL (11.5-16.0); LYMPHOCYTES # (AUTO) 0.6 10^3/uL (1.0-4.0); LYMPHOCYTES % (AUTO) 12 % (12-44); MEAN CORPUSCULAR HEMOGLOBIN 31 pg (25-34); MEAN CORPUSCULAR HGB CONC 34 g/dL (32-36); MEAN CORPUSCULAR VOLUME 93 fL (80-99); MEAN PLATELET VOLUME 9.5 fL (9.0-12.2); MONOCYTES # (AUTO) 0.3 10^3/uL (0.0-1.0); MONOCYTES % (AUTO) 7 % (0-12); NEUTROPHILS # (AUTO) 3.4 10^3/uL (1.8-7.8); NEUTROPHILS % (AUTO) 76 % (42-75); PLATELET COUNT 256 10^3/uL (130-400); WHITE BLOOD COUNT 4.5 10^3/uL (4.3-11.0)
[2021-07-02 12:10] LABS: ALBUMIN 3.7 GM/DL (3.2-4.5); POTASSIUM 3.6 MMOL/L (3.6-5.0)
[2021-07-02 12:11] LABS: CALCIUM 8.8 MG/DL (8.5-10.1)
[2021-07-02 12:13] LABS: TOTAL PROTEIN 6.2 GM/DL (6.4-8.2)
[2021-07-02 12:14] LABS: BILIRUBIN,TOTAL 0.5 MG/DL (0.1-1.0)
[2021-07-02 12:16] LABS: CREATININE SERUM 0.72 MG/DL (0.60-1.30)
[2021-07-02 12:19] LABS: MAGNESIUM 1.9 MG/DL (1.6-2.4)
--- NOTE | 2021-07-02 12:40 | Diagnostic Imaging Report ---
INDICATION: Weakness and dizziness. TECHNIQUE: Multiple contiguous axial images were obtained through the brain without the use of intravenous contrast. Auto Exposure Controls were utilized during the CT exam to meet ALARA standards for radiation dose reduction. COMPARISON: Exam is compared to 12/26/2020. FINDINGS: There are diffuse atrophic changes. There were no extra-axial fluid collections. No intracranial hemorrhage. No intracranial mass or mass effect. No midline shift. The ventricles are normal in size and position. There are patchy low-density changes throughout the deep white matter compatible with chronic ischemic change. These findings are similar to the previous study. There are vascular calcifications in the distal vertebral arteries and carotid siphons. Calvarial windows are unremarkable. IMPRESSION: Atrophic changes and chronic ischemic changes in deep white matter. No acute intracranial hemorrhage or mass effect. Dictated by: Dictated on workstation # [id number]
--- NOTE | 2021-07-02 12:43 | Diagnostic Imaging Report ---
INDICATION: Weakness. EXAMINATION: Chest 07/02/2021 COMPARISON: 12/29/2019 FINDINGS: There is a sleep recorder device on the left mid chest. Heart is slightly prominent. Pulmonary vasculature stable from previous imaging. Nodularities are noted at the lung bases some of which may represent of costochondral cartilage at the tips of the anterior ribs with lung nodules not excluded given some or more prominent than on previous imaging. There is a similar process in the right perihilar region., Dedicated CT imaging could provide better characterization exclude noncalcified lung nodules. Remaining lungs clear. No pneumothorax. No effusions. IMPRESSION: 1. Scattered nodularities at the lung bases and in the right perihilar region nonspecific. See above discussion and recommendations. Dictated by: Dictated on workstation # [id number]
[2021-07-02] MEDS ORDERED: MECLIZINE 25 MG (ANTIVERT) TAB PO ONE (13:00)
[2021-07-02 13:40] LABS: BILIRUBIN,URINE NEGATIVE (NEGATIVE); CLARITY,URINE CLEAR; COLOR,URINE YELLOW; GLUCOSE, URINE (UA) NEGATIVE (NEGATIVE); KETONES,URINE NEGATIVE (NEGATIVE); LEUKOCYTE ESTERASE ,URINE TRACE (NEGATIVE); NITRITE,URINE NEGATIVE (NEGATIVE); PROTEIN,URINE NEGATIVE (NEGATIVE)
[2021-07-02 13:57] LABS: BACTERIA,URINE TRACE /HPF; RBC,URINE 0-2 /HPF; SQUAMOUS EPITHELIAL CELL,UR 0-2 /HPF; WBC,URINE 0-2 /HPF
[2021-07-02 14:34] VITALS: BP 177/76
== END 2021-07-02 14:34 | disposition home or self-care (01) ==
LOC: EDUNIT# 11:13 → ER 11:15
DX: R42 Dizziness and giddiness (principal); K21.9 Gastro-esophageal reflux disease without esophagitis; Z79.899 Other long term (current) drug therapy
CPT/HCPCS: 36415; 70450; 71045; 80053; 81000; 83735; 85025; 93005

== ENCOUNTER → 2021-11-30 | Outpatient (CLI) | payer MEDICARE, OTHER | LOC: CARD 10:00 | PROVIDERS: ATTEND Internal Medicine Cardiovascular Disease | DX: I08.0 Rheumatic disorders of both mitral and aortic valves (principal) | CPT/HCPCS: 93306 ==

== ENCOUNTER 2022-01-04 10:00 | Day surgery (SDC) | payer MEDICARE, OTHER ==
[~2022-01-04] VITALS: Ht 160 cm; Wt 40.0 kg
[2022-01-04] VITALS (10 sets, daily range): BP systolic 137–189; BP diastolic 56–77
[2022-01-04 08:38] LABS: HEMATOCRIT 35 % (35-52); HEMOGLOBIN 11.6 g/dL (11.5-16.0); MEAN CORPUSCULAR HEMOGLOBIN 31 pg (25-34); MEAN CORPUSCULAR HGB CONC 33 g/dL (32-36); MEAN CORPUSCULAR VOLUME 94 fL (80-99); PLATELET COUNT 240 10^3/uL (130-400); WHITE BLOOD COUNT 4.7 10^3/uL (4.3-11.0)
[2022-01-04 08:47] LABS: ALBUMIN 4.3 GM/DL (3.2-4.5); POTASSIUM 3.5 MMOL/L (3.6-5.0)
[2022-01-04 08:48] LABS: CALCIUM 9.1 MG/DL (8.5-10.1)
[2022-01-04 08:50] LABS: INR 1.1 (0.8-1.4); PROTHROMBIN TIME PATIENT 14.2 SEC (12.2-14.7); TOTAL PROTEIN 7.2 GM/DL (6.4-8.2)
[2022-01-04 08:51] LABS: BILIRUBIN,TOTAL 0.6 MG/DL (0.1-1.0)
[2022-01-04 08:53] LABS: CREATININE SERUM 0.75 MG/DL (0.60-1.30)
[~2022-01-04 10:00] MED LIST changes: +APIX2.5T PO; +ASPI-1238 PO; +HEParin (CATH LAB) 2,000 ML IV ONE; +LIDOCAINE 1% INJ 50 ML (XYLOCAINE) VIAL ONE; +MELA10TA PO; +MTP25TSR PO; +NS IV 1000 ML 1,000 ML IV SCH; +NS IV 1000 ML 1,000 ML ONE; +SIMV10TA26 PO
[2022-01-04] MEDS ORDERED: fentaNYL INJ 100 MCG/2 ML AMP ONE (10:39)
[2022-01-04] MEDS ORDERED: MIDAZOLAM 5 MG/5 ML (VERSED) VIAL ONE (10:39)
--- NOTE | 2022-01-04 12:03 | Cardiac Procedure Note-CS/ASA ---
Pre-Procedure Note Pre-Op Procedure Note H&P Reviewed The H&P was reviewed, patient examined and no changes noted. Date H&P Reviewed: Jan 04, 2022 Time H&P Reviewed: 11:00 Conscious Sedation Pre-Proced Time 11:00 ASA Score 3 For ASA 3 and 4: Consider anesthesia and medical clearance. Also, for patients with a history of failed moderate sedation consider anesthesia. Airway Lungs Heart ASA score ASA 1: a normal healthy patient ASA 2: a patient with a mild systemic disease (mid diabetes, controlled hypertension, obesity ASA 3: a patient with a severe systemic disease that limits activity (angina, COPD, prior Myocardial infarction) ASA 4: a patient with an incapacitating disease that is a constant threat to life (CHF, renal failure) ASA 5: a moribund patient not expected to survive 24 hrs. (ruptured aneurysm) ASA 6: a declared brain- patient whose organs are being harvested. For emergent operations, add the letter E after the classification Mallampati Classification Grade 2 Sedation Plan Analgesia, Amnesia, Plan communicated to team members, Discussed options with patient/fam, Discussed risks with patient/fam The patient is an appropriate candidate to undergo the planned procedure, sedation, and anesthesia. The patient immediately re-assessed prior to indication. OWEN STONE MD FACP FAC CCDS Jan 04, 2022 12:03
--- NOTE | 2022-01-04 12:35 | Discharge Inst-Cardiology ---
Discharge Inst-Cardiac Discharge Medications Continued Medications: Acetaminophen (Acetaminophen ER) 650 Mg Tablet.er 650 MG PO HS, TAB Acetaminophen (Acetaminophen ER) 650 Mg Tablet.er 650 MG PO DAILY PRN for PAIN-MILD, TAB Apixaban (Eliquis) 2.5 Mg Tablet 2.5 MG PO BID, TAB Aspirin (Aspirin EC) 81 Mg Tablet.dr 81 MG PO DAILY, TAB Calcium Carbonate (Tums) 300 Mg Tab.chew 300 MG PO PRN PRN for INDIGESTION, TAB Calcium Citrate/Vitamin D3 (Calcium Citrate - Vit D3 Tab) 1 Each Tablet 1 TAB PO DAILY, TAB Cholecalciferol (Vitamin D3) (Vitamin D3) 2,000 Unit Tablet 2000 UNIT PO DAILY, TAB Cyanocobalamin (Vitamin B-12) (Vitamin B12) 2,500 Mcg Tablet 2500 MCG PO Q48H, TAB Docusate Sodium (Docusate Sodium) 100 Mg Capsule 100 MG PO BID, CAP Escitalopram Oxalate (Escitalopram Oxalate) 5 Mg Tablet 5 MG PO HS, TAB Esomeprazole Magnesium (Esomeprazole Magnesium) 40 Mg Capsule.dr 40 MG PO DAILY, CAP Famotidine (Famotidine) 40 Mg Tablet 40 MG PO HS, TAB Hydralazine HCl (Hydralazine HCl) 25 Mg Tablet 50 MG PO TID, TAB Melatonin (Melatonin) 10 Mg Tab.mphase 10 MG PO HS, EA Metoprolol Succinate (Metoprolol Succinate) 25 Mg Tab.er.24h 25 MG PO BID, TAB Multivitamin (Multiple Vitamins) 1 Each Tablet 1 EACH PO DAILY, TAB Pyridoxine HCl (Vitamin B-6) 100 Mg Tablet 100 MG PO BID, TAB Simvastatin (Simvastatin) 10 Mg Tablet 10 MG PO DAILY, TAB Vit A/Vit C/Vit E/Zinc/Copper (Preservision Areds Tablet) 1 Each Tablet 1 EACH PO DAILY, TAB Discontinued Medications: Aspirin (Aspirin EC) Unknown Strength Tablet. Unknown Dose PO DAILY, TAB OWEN STONE MD FACP FAC CCDS Jan 04, 2022 12:35
--- NOTE | 2022-01-04 12:36 | Discharge Inst-Post CATH ---
Discharge Inst-CATH/EP Post Cardiac Cath/EP D/C Inst Follow Up/Plan F/u with Dr Orozco in 2 weeks F/u with Dr Garcia next week ACTIVITY * Go Home directly and rest. * Limit activity of the leg (or wrist if it was used) for 7 days including aerobics, swimming, jogging, bicycling, etc. * Restrict stair-climbing for 7 days if possible, if not, climb up with your non-cath leg, then bring together on the same step. * Avoid lifting, pushing, pulling or excessive movement of the affected extremity for 7 days. * Customary sexual activity may be resumed after 2 days-use caution not to use a position that strains or causes pain to the affected extremity. * No driving for 24 hours. * NO SMOKING. * Avoid straining for bowel movements for 7 days. * Gentle walking on level ground is allowed. * Returning to work will depend on the type of procedure and the results. Your doctor will discuss this with you. CALL YOUR DOCTOR FOR ANY OF THE FOLLOWING: *If bleeding from the puncture site occurs- Apply gentle pressure to site with clean cloth and call your doctor or EMS. * If a knot or lump forms under the skin, increases in size, or causes pain. * If bruising appears to be worsening or moving further down your leg instead of disappearing. * Temperature above 101 F. CARE OF YOUR GROIN INCISION; * Bruising or purple discoloration of the skin near the puncture site is common. * You may shower only, no bathtub bathing for 5 days. Be careful to avoid slipping as your leg may feel stiff. * If a closure device was used on your femoral artery, please see the attached guide regarding care of the device and your leg. * Leave dressing on FOR 24 hours. CARE OF YOUR WRIST INCISION; * Bruising or purple discoloration of the skin near the puncture site is common. * You may shower. * DO NOT submerge wrist. * Leave dressing on FOR 24 hours. OWEN OROZCO MD FACP FAC CCDS Jan 04, 2022 12:36
[2022-01-04] MEDS ORDERED: NS IV 1000 ML 1,000 ML IV SCH (12:45)
[2022-01-04] MEDS ORDERED: KCL 10 MEQ TAB (MICRO K) PO ONE (12:45)
[2022-01-04] MEDS ORDERED: PATIENT MAY USE OWN MEDS, ALL PO SCH (12:45)
[2022-01-04] MEDS ORDERED: amLODIPine 5 MG (NORVASC) TAB PO ONE (12:45)
--- NOTE | 2022-01-04 13:15 | CARDIAC CATHETERIZATION ---
DATE OF SERVICE: 01/04/2022 CARDIAC CATHETERIZATION REPORT The patient is an 86-year-old lady who is due to undergo TAVR in room and the surgeon has requested coronary evaluation. Informed consent was obtained. DESCRIPTION OF PROCEDURE: She was brought to the cardiac catheterization laboratory in a fasting state. Right groin was prepared and draped in the usual sterile fashion. Lidocaine 1% was used to local anesthesia. Modified Seldinger technique was used to advance a 5-Japanese sheath in right femoral artery, 5-Japanese JL4 catheter for left coronary angiography, 5-Japanese JR4 catheter did not result in good engagement of the right coronary artery. We tried multiple catheters. We obtained nonselective, but adequate visualization of the right coronary artery with a Dru right coronary catheter. Pigtail catheter was used to carry out aortic root angiography. Aortic valve was not crossed. CORONARY ANGIOGRAPHY: There is diffuse coronary calcification is seen. Left main coronary artery is free of significant disease. Left anterior descending artery has diffuse moderate plaque. The first diagonal branch of the left anterior descending artery is relatively small and has approximately 80% to 90% ostial stenosis. The left circumflex artery has diffuse moderate disease. The first obtuse marginal branch has approximately 60% to 70% ostial stenosis. Right coronary artery has approximately 50% ostial stenosis. It has diffuse moderate plaque. AORTIC ROOT ANGIOGRAPHY: Aortic root angiography did not indicate any thoracic aortic aneurysm or dissection. Calcification is seen in the ascending aorta. Aortic valve leaflets appeared to have diminished excursion. CONCLUSIONS: Coronary artery disease, diffuse and moderate. The first diagonal branch of the left anterior descending artery, relatively small in caliber, has 80 to 90% ostial stenosis and the first obtuse marginal branch of the left circumflex has 60% to 70% ostial stenosis. Right coronary artery has approximately 50% ostial stenosis. DISCUSSION AND RECOMMENDATIONS: We will communicate the results to her surgeon, Dr. Garcia. We will also discuss the results with him. Job ID: [id number] DocumentID: [id number] Dictated Date: 01/04/2022 12:09:34 Prevention Specialist Date: 01/04/2022 13:14:15 Dictated By: OWEN STONE MD, MA, FACP, FACC, MTDD
== END 2022-01-04 15:35 | disposition home or self-care (01) ==
LOC: CATH 10:00 → SDC 12:35 → CATH 15:35
PROVIDERS: ATTEND Internal Medicine Cardiovascular Disease
DX: I25.10 Atherosclerotic heart disease of native coronary artery without angina pectoris (principal); I35.0 Nonrheumatic aortic (valve) stenosis; I48.0 Paroxysmal atrial fibrillation; I48.92 Unspecified atrial flutter; I11.9 Hypertensive heart disease without heart failure; R42 Dizziness and giddiness; I65.23 Occlusion and stenosis of bilateral carotid arteries; F32.A Depression, unspecified; Z79.82 Long term (current) use of aspirin; Z79.01 Long term (current) use of anticoagulants
CPT/HCPCS: 80053; 80061; 85027; 85610; 85730; 87081; 93005; 93454; 93567; C1894; 36415

== ENCOUNTER → 2022-02-01 | Outpatient (CLI) | payer MEDICARE, OTHER ==
[~2022-02-01] MED LIST changes: -HEParin (CATH LAB) 2,000 ML IV ONE; -LIDOCAINE 1% INJ 50 ML (XYLOCAINE) VIAL ONE; -NS IV 1000 ML 1,000 ML IV SCH; -NS IV 1000 ML 1,000 ML ONE
== END ==
LOC: LABNPT 07:27
PROVIDERS: ATTEND Thoracic Surgery (Cardiothoracic Vascular Surgery)
DX: Z01.812 Encounter for preprocedural laboratory examination (principal); I35.0 Nonrheumatic aortic (valve) stenosis; Z20.822 Contact with and (suspected) exposure to COVID-19; Z79.899 Other long term (current) drug therapy
CPT/HCPCS: 87636

== ENCOUNTER 2022-02-14 12:53 | Inpatient (IN) | payer MEDICARE, OTHER ==
[~2022-02-14] VITALS: Ht 160 cm; Wt 46.2 kg
--- NOTE | 2022-02-14 13:32 | ED Neurological Problem ---
General Chief Complaint: Neuro-Stroke Like Symptoms Stated Complaint: HIGH BP,DIZZINESS Source: patient Exam Limitations: no limitations History of Present Illness Date Seen by Provider: February 14, 2022 Time Seen by Provider: 13:10 Initial Comments Patient to the ER by EMS from her home where she is accompanied by her and caregiver Kassy and chief complaint that noon she had a sudden onset of difficulty speaking, and her caregiver noticed left facial droop. No history of stroke or heart attack. She is on Eliquis. She had surgery by Dr. Doe at [facility] in the last 2 weeks as well as a Micra pacemaker placed by cardiology at [place], [place]. Dr. Orozco is her radar systems engineer and Dr. FARRAR is her primary care doctor. She has been feeling malaise, dizziness and weakness for the past couple days. She has been having difficulty managing her blood pressure and the radar systems engineer thought the pacemaker would help with this. She denies any chest pain or palpitations. No shortness of air weakness or dysuria. No fevers or chills. Allergies and Home Medications Allergies Coded Allergies: bacitracin (Verified Allergy, Mild, RASH, 10/15/19) lidocaine (Verified Allergy, Mild, RASH, 10/15/19) neomycin (Verified Allergy, Mild, RASH, 10/15/19) polymyxin B (Verified Allergy, Mild, RASH, 10/15/19) pramoxine (Verified Allergy, Mild, RASH, 10/15/19) Patient Home Medication List Home Medication List Reviewed: Yes Acetaminophen (Acetaminophen ER) 650 Mg Tablet.er, 650 MG PO HS, (Reported) Entered as Reported by: CRYSTAL NEVES on 04/24/17 0925 Acetaminophen (Acetaminophen ER) 650 Mg Tablet.er, 650 MG PO DAILY PRN for PAIN- MILD, (Reported) Entered as Reported by: CRYSTAL NEVES on 04/24/17 0930 Apixaban (Eliquis) 2.5 Mg Tablet, 2.5 MG PO BID, (Reported) Entered as Reported by: AMPARO COCHRAN on 01/04/22 0855 Aspirin (Aspirin EC) 81 Mg Tablet.dr, 81 MG PO DAILY, (Reported) Entered as Reported by: AMPARO COCHRAN on 01/04/22 0855 Calcium Carbonate (Tums) 300 Mg Tab.chew, 300 MG PO PRN PRN for INDIGESTION, (Reported) Entered as Reported by: CRYSTAL NEVES on 04/24/17 09 Calcium Citrate/Vitamin D3 (Calcium Citrate - Vit D3 Tab) 1 Each Tablet, 1 TAB PO DAILY, (Reported) Entered as Reported by: CRYSTAL NEVES on 04/24/17 09 Cholecalciferol (Vitamin D3) (Vitamin D3) 2,000 Unit Tablet, 2,000 UNIT PO DAILY, (Reported) Entered as Reported by: ALBERTO BROWN on 10/15/19 0812 Cyanocobalamin (Vitamin B-12) (Vitamin B12) 2,500 Mcg Tablet, 2,500 MCG PO Q48H, (Reported) Entered as Reported by: ALBERTO BROWN on 10/15/19 08 Docusate Sodium (Docusate Sodium) 100 Mg Capsule, 100 MG PO BID, (Reported) Entered as Reported by: CRYSTAL NEVES on 04/24/17 09 Escitalopram Oxalate (Escitalopram Oxalate) 5 Mg Tablet, 5 MG PO HS, (Reported) Entered as Reported by: MARE MCDERMOTT on 11/07/16 0907 Esomeprazole Magnesium (Esomeprazole Magnesium) 40 Mg Capsule.dr, 40 MG PO DAILY, (Reported) Entered as Reported by: AMPARO COCHRAN on 01/04/22 08 Famotidine (Famotidine) 40 Mg Tablet, 40 MG PO HS, (Reported) Entered as Reported by: CANDICE JIN on 10/06/15 1243 Hydralazine HCl (Hydralazine HCl) 25 Mg Tablet, 50 MG PO TID, (Reported) Entered as Reported by: AMPARO COCHRAN on 01/04/22 08 Melatonin (Melatonin) 10 Mg Tab.mphase, 10 MG PO HS, (Reported) Entered as Reported by: AMPARO COCHRAN on 01/04/22 0855 Metoprolol Succinate (Metoprolol Succinate) 25 Mg Tab.er.24h, 25 MG PO BID, (Reported) Entered as Reported by: AMPARO COCHRAN on 01/04/22 08 Multivitamin (Multiple Vitamins) 1 Each Tablet, 1 EACH PO DAILY, (Reported) Entered as Reported by: ALBERTO BROWN on 10/15/19 0812 Pyridoxine HCl (Vitamin B-6) 100 Mg Tablet, 100 MG PO BID, (Reported) Entered as Reported by: CANDICE JIN on 10/06/15 1243 Simvastatin (Simvastatin) 10 Mg Tablet, 10 MG PO DAILY, (Reported) Entered as Reported by: AMPARO COCHRAN on 01/04/22 0855 Vit A/Vit C/Vit E/Zinc/Copper (Preservision Areds Tablet) 1 Each Tablet, 1 EACH PO DAILY, (Reported) Entered as Reported by: ALBERTO BRONW on 10/15/19 0812 Review of Systems Review of Systems Constitutional: No chills, No diaphoresis; dizziness, malaise, weakness Eyes: Blindness (chronic); Denies Blurred Vision, Denies Drainage Ears, Nose, Mouth, Throat: denies nose pain, denies epistaxis, denies mouth pain Respiratory: No cough, No phlegm, No short of breath Cardiovascular: No chest pain, No edema Gastrointestinal: No abdominal pain, No nausea, No vomiting Genitourinary: No discharge, No dysuria Musculoskeletal: No back pain, No joint pain Skin: No pruritus, No rash Psychiatric/Neurological: Denies Headache, Denies Numbness All Other Systems Reviewed Negative Unless Noted: Yes Past Feftmgs-Tynvjz-Tnogod Hx Patient Social History Tobacco Use?: No Alcohol Use?: No Pt feels they are or have been: No Immunizations Up To Date Tetanus Booster (TDap): Unknown First/Initial COVID19 Vaccinat: 2020 Second COVID19 Vaccination Conor: 2020 Third COVID19 Vaccination Date: 2020 Seasonal Allergies Seasonal Allergies: Yes Past Medical History Surgery/Hospitalization HX: PMH: HTN, PACEMAKER, VALVE REPLACEMENT Surgeries: Yes (RSO, BREAST BX, CATARACTS, BOWEL RESCTION, FX HIP) Breast, Hysterectomy, Orthopedic Respiratory: No (ASTHMA CHILD) Currently Using CPAP: No Currently Using BIPAP: No Cardiac: Yes Heart Murmur, High Cholesterol, Hypertension Neurological: No 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: No Female 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: Denies 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 DOWN SYNDROME) Hypertension 19 MOTHER G8 SISTER Kidney disease sister Myocardial infarction 19 FATHER Neoplasm 19 MOTHER (BREAST CANCER) Visual disorder 19 MOTHER (MACULAR DEGENERATION) Heart Disease, Cancer, Hypertension, Renal Disease, Other Conditions/Hx Physical Exam Vital Signs Vital Signs - First Documented 02/14/22 12:55 Temp 36.7 Pulse 66 Resp 26 B/P (MAP) 207/91 (129) Pulse Ox 99 Capillary Refill : Height, Weight, BMI Height: 5'3.00" Weight: 82lbs. 6.4oz. 37.257177eh; 15.62 BMI Method:Stated General Appearance: WD/WN, no apparent distress HEENT: PERRL/EOMI (3 mm bilateral, reactive, no horizontal nystagmus), normal ENT inspection, TMs normal, pharynx normal Neck: non-tender, full range of motion, supple, normal inspection Respiratory: chest non-tender, lungs clear, normal breath sounds, no respiratory distress, no accessory muscle use Cardiovascular: normal peripheral pulses, regular rate, rhythm Peripheral Pulses: 2+ Radial Pulses (R), 2+ Radial Pulses (L) Gastrointestinal: normal bowel sounds, non tender, soft Extremities: normal range of motion, non-tender, normal inspection, normal capillary refill Neurologic/Psychiatric: no motor/sensory deficits, alert, normal mood/affect, oriented x 3 Crainal Nerves: normal hearing, normal speech, PERRL Motor/Sensory: no motor deficit, no sensory deficit Skin: normal color, warm/dry Stroke Onset of Symptoms Date of Onset of Symptoms: February 14, 2022 Time of Symptom Onset: 12:00 Onset of Symptoms: Yes NIH Stroke Scale Assessment Select: Initial Level of Consciousness: 0=Alert (0), Level of Consciousness- Questions: 0=Answers both month/age (0), LOC Commands: 0=Performs both tasks (0), Gaze: Normal (0), Visual Dias: 0=No visual loss (0), Facial Movement (Facial Paresis): 1=Minor paralysis (1), Motor Function-Arms Right: 0=No drift (0), Motor Function-Arms Left: 0=No drift (0), Motor Function-Legs Right: 0=No drift (0), Motor Function-Legs Left: 0=No drift (0), Limb Ataxia: 0=Absent (0), Sensory: 0=Normal:no loss (0), Best Language: 1=Mild to moderat aphasia (1), Dysarthria: 0=Normal (0), Extinction & Inattention: 0=No abnormality (0), Total: 2 Stroke Thrombolytic Exclusion Age 18 or Over: Yes Acute intenal hemorrhage: No History of CVA: No Uncontrolled Coagulation Defec: No Intracranial Hemorrhage: No Severe Hypertension: No GI or Bleed: No Subarachnoid Hemorrhage: No Intracranial Neoplasm/Aneurysm: No Oral Anticoagulants: Yes (Eliquis) Surgery or Trauma: No Puncture of Non-Compressible V: No Recent CPR: No Diabetic Hemorrhagic Retinopat: No Organ Biopsy: No Recent Obstetric Delivery: No Glucose: No Significant Hepatic Dysfunctio: No (130s per EMS) NIH Stoke Scale >22: No Bacterial Endocarditis: No Pericarditis: No Improving Symptoms: No Platelets: No TPA Contraindication: Yes IV - [facility] Received IV - TPa Procedure Performed?: No Progress/Results/Core Measures Results/Orders Lab Results Laboratory Tests Test 02/14/22 13:11 02/14/22 14:02 02/14/22 14:08 Range/Units Prothrombin Time 14.9 H 12.2-14.7 SEC INR Comment 1.1 0.8-1.4 Activated Partial Thromboplast Time 38 H 24-35 SEC D-Dimer 2.74 H 0.00-0.49 UG/ML Urine Color YELLOW Urine Clarity CLEAR Urine pH 8.0 5-9 Urine Specific [place] 1.020 1.016-1.022 Urine Protein NEGATIVE NEGATIVE Urine Glucose (UA) NEGATIVE NEGATIVE Urine Ketones NEGATIVE NEGATIVE Urine Nitrite NEGATIVE NEGATIVE Urine Bilirubin NEGATIVE NEGATIVE Urine Urobilinogen 0.2 < = 1.0 MG/DL Urine Leukocyte Esterase 1+ H NEGATIVE Urine RBC (Auto) NEGATIVE NEGATIVE Urine RBC RARE /HPF Urine WBC 0-2 /HPF Urine Squamous Epithelial Cells RARE /HPF Urine Crystals NONE /LPF Urine Bacteria TRACE /HPF Urine Casts NONE /LPF Urine Mucus NEGATIVE /LPF Urine Culture Indicated NO White Blood Count 5.5 4.3-11.0 10^3/uL Red Blood Count 3.47 L 3.80-5.11 10^6/uL Hemoglobin 10.5 L 11.5-16.0 g/dL Hematocrit 32 L 35-52 % Mean Corpuscular Volume 92 80-99 fL Mean Corpuscular Hemoglobin 30 25-34 pg Mean Corpuscular Hemoglobin Concent 33 32-36 g/dL Red Cell Distribution Width 14.4 10.0-14.5 % Platelet Count 271 130-400 10^3/uL Mean Platelet Volume 9.0 9.0-12.2 fL Immature Granulocyte % (Auto) 1 % Neutrophils (%) (Auto) 81 H 42-75 % Lymphocytes (%) (Auto) 10 L 12-44 % Monocytes (%) (Auto) 7 0-12 % Eosinophils (%) (Auto) 2 0-10 % Basophils (%) (Auto) 1 0-10 % Neutrophils # (Auto) 4.5 1.8-7.8 10^3/uL Lymphocytes # (Auto) 0.5 L 1.0-4.0 10^3/uL Monocytes # (Auto) 0.4 0.0-1.0 10^3/uL Eosinophils # (Auto) 0.1 0.0-0.3 10^3/uL Basophils # (Auto) 0.0 0.0-0.1 10^3/uL Immature Granulocyte # (Auto) 0.0 0.0-0.1 10^3/uL Sodium Level 138 135-145 MMOL/L Potassium Level 3.6 3.6-5.0 MMOL/L Chloride Level 103 98-107 MMOL/L Carbon Dioxide Level 21 21-32 MMOL/L Anion Gap 14 5-14 MMOL/L Blood Urea Nitrogen 14 7-18 MG/DL Creatinine 0.69 0.60-1.30 MG/DL Estimat Glomerular Filtration Rate 83 BUN/Creatinine Ratio 20 Glucose Level 97 70-105 MG/DL Calcium Level 9.0 8.5-10.1 MG/DL Corrected Calcium 9.2 8.5-10.1 MG/DL Magnesium Level 1.9 1.6-2.4 MG/DL Total Bilirubin 0.6 0.1-1.0 MG/DL Aspartate Amino Transf (AST/SGOT) 25 5-34 U/L Alanine Aminotransferase (ALT/SGPT) 13 0-55 U/L Alkaline Phosphatase 62 40-136 U/L Troponin I < 0.028 <0.028 NG/ML C-Reactive Protein High Sensitivity 0.31 0.00-0.50 MG/DL B-Type Natriuretic Peptide 332.0 H <100.0 PG/ML Total Protein 6.7 6.4-8.2 GM/DL Albumin 3.8 3.2-4.5 GM/DL My Orders Orders - BALDO MOHR Accucheck Stat ONCE (02/14/22 13:05) Ua Culture If Indicated (02/14/22 13:05) Cbc With Automated Diff (02/14/22 13:05) Comprehensive Metabolic Panel (02/14/22 13:05) Hs C Reactive Protein (02/14/22 13:05) Fibrin Degradation Products (02/14/22 13:05) Protime With Inr (02/14/22 13:05) Partial Thromboplastin Time (02/14/22 13:05) Troponin I Turner (02/14/22 13:05) Continuous Ekg Monitoring (02/14/22 13:05) Ekg Tracing (02/14/22 13:05) Magnesium (02/14/22 13:05) Bnp Turner (02/14/22 13:09) Chest 1 View, Ap/Pa Only (02/14/22:) Catheter(Urinary) Insert & Ass 03,15 (02/14/22 13:22) Nothing By Mouth (02/14/22 Lunch) Ed Iv/Invasive Line Start (02/14/22 13:22) Ed Iv/Invasive Line Start (02/14/22 13:22) Vital Signs Stroke Patient Q15M (02/14/22 13:22) Ct Head Wo-R/O Stroke (02/14/22 13:22) O2 (02/14/22 13:22) Intake & Output 06,14,22 (02/14/22 13:22) Monitor-Rhythm Ecg Trace Only (02/14/22:22) Dysphagia Screening Tool [id number] (02/14/22 13:22) Post Thrombolytic Adminstratio (02/14/22 13:22) Lipid Panel (02/15/22 06:00) Vital Signs/I&O 02/14/22 12:55 Temp 36.7 Pulse 66 Resp 26 B/P (MAP) 207/91 (129) Pulse Ox 99 Progress Progress Note : Time: 14:05 Progress Note [facility] Dr White Stroke Neurologist utilization specialist for activated CVA. We discussed the case with the neurologist and she is feels the symptoms are slight and after a large vessel occlusion is unlikely and she would not therefore be a candidate for any kind of intervention. She is not a candidate for tPA because she is on Eliquis. She would not recommend a CT angiogram at this time however keeping her on observation overnight and obtaining an MRI with MRA of the head and neck tomorrow would be frank. She is okay with reducing the blood pressure down no more than 20% given that it is over 210 systolic. Initial ECG Impression Date: February 14, 2022 Initial ECG Impression Time: 13:19 Initial ECG Rate: 62 Initial ECG Rhythm: Normal Sinus Initial ECG Intervals: QT (514) Initial ECG Impression: Normal Comment Paced rhythm without clinically relevant ST elevation or depression. Diagnostic Imaging Diagonstic Imaging: CT Plain Films/CT/US/NM/MRI: head Comments [facility], [place] NAME: YANNA LONG [facility] REC#: [id number] PT STATUS: REG ER : 1935 PHYSICIAN: BALDO MOHR MD ADMIT DATE: 02/14/22/ER Draft Date of Exam:02/14/22 CT HEAD WO-R/O STROKE INDICATION: Neuro deficit hypertension. Dizziness. TECHNIQUE: Routine non contrast-enhanced axial images were obtained from the skull base to the vertex. Auto Exposure Controls were utilized during the CT exam to meet ALARA standards for radiation dose reduction COMPARISON: 07/02/2021 FINDINGS: The ventricles and cortical sulci are diffusely prominent, compatible with age-related volume loss. There are confluent areas of abnormal, low attenuation in the periventricular white matter. This is consistent with chronic small vessel ischemic changes. There is no midline shift or mass-effect. No acute intra-axial hemorrhage is seen. There are no abnormal areas of increased or decreased density to suggest acute hemorrhage or edema. No extra-axial masses or collections are present. The bony calvarium is intact. The visualized paranasal sinuses are unremarkable. The mastoid air cells are clear. IMPRESSION: 1. No acute intracranial abnormality. No CT evidence of mass, acute infarct or intracranial hemorrhage. 2. Chronic small vessel ischemic changes in the deep white matter. Called to Dr. Mohr at 1:38 p.m. by cvb. Dictated on workstation # [id number] Dict: 02/14/22 1334 Trans: 02/14/22 1342 CVB [id number] Interpreted by: CLAUDIO CHATMAN MD Electronically signed by: Reviewed: Reviewed by Me Diagonstic Imaging: Xray Plain Films/CT/US/NM/MRI: chest Comments [facility] [place], [place] NAME: YANNA LONG [facility] REC#: [id number] PT STATUS: REG ER : 1935 PHYSICIAN: BALDO MOHR MD ADMIT DATE: 02/14/22/ER Signed Date of Exam:02/14/22 CHEST 1 VIEW, AP/PA ONLY INDICATION: CVA. EXAMINATION: Portable chest at 1:25 p.m. FINDINGS: There is a loop recorder projecting over the left lower chest. Heart size and pulmonary vascularity are normal. There is likely some atelectasis at the right medial lung base. Left lung is clear. IMPRESSION: Right basilar atelectasis. Nodular opacities in the right lower chest are probably rib calcifications. Dictated by: Dictated on workstation # [id number] Dict: 02/14/22 1334 Trans: 02/14/22 1342 [id number] Interpreted by: LETY SMALL MD Electronically signed by: LETY SMALL MD 02/14/22 134 Reviewed: Reviewed by Me Departure Communication (Admissions) Time/Spoke to Admitting Phy: 14:15 Discussed the case with Dr. FARRAR who agrees to observe the patient to the ICU on a Cardene drip Time/Spoke to Consulting Phy: 14:18 [facility] and [facility] agree to consult on the case. Impression Primary Impression: CVA (cerebral vascular accident) Qualified Codes: I63.9 - Cerebral infarction, unspecified Additional Impression: Hypertension Qualified Codes: I10 - Essential (primary) hypertension Disposition: ADMITTED INPATIENT Condition: Stable Admissions Decision to Admit Reason: Admit from ER (General) Decision to Admit/Date: February 14, 2022 Time/Decision to Admit Time: 14:10 Departure-Patient Inst. Referrals: ZEV AFRRAR MD (PCP/Family) Primary Care Physician BALDO MOHR February 14, 2022 13:31
[2022-02-14 13:36] LABS: FIBRIN DEGRADATION PRODUCTS 2.74 UG/ML (0.00-0.49); INR 1.1 (0.8-1.4); PROTHROMBIN TIME PATIENT 14.9 SEC (12.2-14.7)
--- NOTE | 2022-02-14 13:38 | Diagnostic Imaging Report ---
INDICATION: CVA. EXAMINATION: Portable chest at 1:25 p.m. FINDINGS: There is a loop recorder projecting over the left lower chest. Heart size and pulmonary vascularity are normal. There is likely some atelectasis at the right medial lung base. Left lung is clear. IMPRESSION: Right basilar atelectasis. Nodular opacities in the right lower chest are probably rib calcifications. Dictated by: Dictated on workstation # [id number]
--- NOTE | 2022-02-14 13:42 | Diagnostic Imaging Report ---
INDICATION: Neuro deficit hypertension. Dizziness. TECHNIQUE: Routine non contrast-enhanced axial images were obtained from the skull base to the vertex. Auto Exposure Controls were utilized during the CT exam to meet ALARA standards for radiation dose reduction COMPARISON: 07/02/2021 FINDINGS: The ventricles and cortical sulci are diffusely prominent, compatible with age-related volume loss. There are confluent areas of abnormal, low attenuation in the periventricular white matter. This is consistent with chronic small vessel ischemic changes. There is no midline shift or mass-effect. No acute intra-axial hemorrhage is seen. There are no abnormal areas of increased or decreased density to suggest acute hemorrhage or edema. No extra-axial masses or collections are present. The bony calvarium is intact. The visualized paranasal sinuses are unremarkable. The mastoid air cells are clear. IMPRESSION: 1. No acute intracranial abnormality. No CT evidence of mass, acute infarct or intracranial hemorrhage. 2. Chronic small vessel ischemic changes in the deep white matter. Called to Dr. Mohr at 1:38 p.m. by cvb. Dictated by: Dictated on workstation # [id number]
[2022-02-14 14:09] LABS: BILIRUBIN,URINE NEGATIVE (NEGATIVE); CLARITY,URINE CLEAR; COLOR,URINE YELLOW; GLUCOSE, URINE (UA) NEGATIVE (NEGATIVE); KETONES,URINE NEGATIVE (NEGATIVE); LEUKOCYTE ESTERASE ,URINE 1+ (NEGATIVE); NITRITE,URINE NEGATIVE (NEGATIVE); PROTEIN,URINE NEGATIVE (NEGATIVE)
[2022-02-14 14:17] LABS: BASOPHILS % (AUTO) 1 % (0-10); EOSINOPHILS # (AUTO) 0.1 10^3/uL (0.0-0.3); EOSINOPHILS % (AUTO) 2 % (0-10); HEMATOCRIT 32 % (35-52); HEMOGLOBIN 10.5 g/dL (11.5-16.0); LYMPHOCYTES # (AUTO) 0.5 10^3/uL (1.0-4.0); LYMPHOCYTES % (AUTO) 10 % (12-44); MEAN CORPUSCULAR HEMOGLOBIN 30 pg (25-34); MEAN CORPUSCULAR HGB CONC 33 g/dL (32-36); MEAN CORPUSCULAR VOLUME 92 fL (80-99); MONOCYTES # (AUTO) 0.4 10^3/uL (0.0-1.0); MONOCYTES % (AUTO) 7 % (0-12); NEUTROPHILS # (AUTO) 4.5 10^3/uL (1.8-7.8); NEUTROPHILS % (AUTO) 81 % (42-75); PLATELET COUNT 271 10^3/uL (130-400); WHITE BLOOD COUNT 5.5 10^3/uL (4.3-11.0)
[2022-02-14 14:22] LABS: ALBUMIN 3.8 GM/DL (3.2-4.5)
[2022-02-14 14:23] LABS: CHLORIDE 103 MMOL/L (98-107); POTASSIUM 3.6 MMOL/L (3.6-5.0); SODIUM 138 MMOL/L (135-145)
[2022-02-14 14:25] LABS: GLUCOSE 97 MG/DL (70-105); TOTAL PROTEIN 6.7 GM/DL (6.4-8.2)
[2022-02-14 14:26] LABS: CARBON DIOXIDE 21 MMOL/L (21-32)
[2022-02-14 14:27] LABS: BILIRUBIN,TOTAL 0.6 MG/DL (0.1-1.0)
[2022-02-14 14:29] LABS: ALKALINE PHOSPHATASE 62 U/L (40-136); CREATININE SERUM 0.69 MG/DL (0.60-1.30); GFR ESTIMATED 83
[2022-02-14 14:30] LABS: BUN/CREATININE RATIO 20
[2022-02-14 14:32] LABS: ALANINE AMINOTRANSFERASE 13 U/L (0-55); MAGNESIUM 1.9 MG/DL (1.6-2.4)
[2022-02-14 14:39] LABS: BACTERIA,URINE TRACE /HPF; RBC,URINE RARE /HPF; SQUAMOUS EPITHELIAL CELL,UR RARE /HPF; WBC,URINE 0-2 /HPF
[2022-02-14] MEDS ORDERED: niCARdipine IV 50 MG in NS (IVPB) 230 ML IV SCH (16:00)
[2022-02-14] MEDS ORDERED: ACETAMINOPHEN 325 MG TABLET PO PRN (16:00)
[2022-02-14] MEDS: dilTIAZem DRIP PRE-MIX 125 ML IV SCH (16:00)
[2022-02-14] MEDS ORDERED: ACETAMINOPHEN 650 MG SUPP (TYLENOL) PR PRN (16:15)
--- NOTE | 2022-02-14 17:51 | Tele-ICU Consult ---
History of Present Illness History of Present Illness Date Seen by Provider: February 14, 2022 Time Seen by Provider: 17:50 Date of Admission (Tele-ICU Physician , consultation) Available chart/ vitals / labs / Images reviewed H&P is from ER notes Patient's information available about PMH, Shx, Fhx allergy reviewed in EMR. ROS as per chart and RN report Now in ICU,hemodynamically stable Video assessment done using teleICU camera, rest of exam as per RN Discussed with RN. A/P Acute stroke ( on eliquis ) - ER MD discussed with [facility] Dr White Stroke Neurologist -neurocck/NIHSS/VS monitoring per stroke order set protocol -IV cardene to keep SBP 180-200 prn -f/up imaging as per neuro @[facility] s/p [facility] 2 weeks ago - on Eliquis discussed with RN BP parameters ( and to follow neurology orders , if will be given different BP range ) Plans in collaboration with bedside consultants and IM MDs. Discussed with RN to reach out if any questions or concerns A total of 25 minutes of critical care time was devoted to this patient today, required to treat and/or prevent further deterioration of critical care condition ( as above ) Allergies and Home Medications Allergies Coded Allergies: bacitracin (Verified Allergy, Mild, RASH, 10/15/19) lidocaine (Verified Allergy, Mild, RASH, 10/15/19) neomycin (Verified Allergy, Mild, RASH, 10/15/19) polymyxin B (Verified Allergy, Mild, RASH, 10/15/19) pramoxine (Verified Allergy, Mild, RASH, 10/15/19) Home Medications Acetaminophen 650 Mg Tablet.er, 650 MG PO HS, (Reported) Acetaminophen 650 Mg Tablet.er, 650 MG PO DAILY PRN for PAIN-MILD, (Reported) Apixaban 2.5 Mg Tablet, 2.5 MG PO BID, (Reported) Aspirin 81 Mg Tablet.dr, 81 MG PO DAILY, (Reported) Calcium Carbonate 300 Mg Tab.chew, 300 MG PO PRN PRN for INDIGESTION, (Reported) Calcium Citrate/Vitamin D3 1 Each Tablet, 1 TAB PO DAILY, (Reported) Cholecalciferol (Vitamin D3) 2,000 Unit Tablet, 2,000 UNIT PO DAILY, (Reported) Cyanocobalamin (Vitamin B-12) 2,500 Mcg Tablet, 2,500 MCG PO Q48H, (Reported) Docusate Sodium 100 Mg Capsule, 100 MG PO BID, (Reported) Escitalopram Oxalate 5 Mg Tablet, 5 MG PO HS, (Reported) Esomeprazole Magnesium 40 Mg Capsule.dr, 40 MG PO DAILY, (Reported) Famotidine 40 Mg Tablet, 40 MG PO HS, (Reported) Hydralazine HCl 25 Mg Tablet, 50 MG PO TID, (Reported) Melatonin 10 Mg Tab.mphase, 10 MG PO HS, (Reported) Metoprolol Succinate 25 Mg Tab.er.24h, 25 MG PO BID, (Reported) Multivitamin 1 Each Tablet, 1 EACH PO DAILY, (Reported) Pyridoxine HCl 100 Mg Tablet, 100 MG PO BID, (Reported) Simvastatin 10 Mg Tablet, 10 MG PO DAILY, (Reported) Vit A/Vit C/Vit E/Zinc/Copper 1 Each Tablet, 1 EACH PO DAILY, (Reported) Past Medical/Social/Family Hx Patient Social History Tobacco Use?: No Smoking Status: Never a Smoker Smokeless Tobacco Frequency: Never a User Use of E-Cig and/or Vaping dev: No Substance use?: No Alcohol Use?: No Pt stated abuse/neglect: No Immunizations Up To Date First/Initial COVID19 Vaccinat: 2020 Second COVID19 Vaccination Conor: 2020 Tetanus Booster (TDap): Unknown TB Skin Test: Negative Date of Pneumonia Vaccine: Jul 01, 2019 Current Status Advance Directives: Unable to obtain Communicates: Verbally Primary Language: Swedish Preferred Spoken Language: Swedish Is interpretation needed?: No Sensory deficits: Vision impairment Implanted or Applied Medical D: Pacemaker Review of Systems Constitutional: see HPI Focused Exam Height, Weight, BMI Height: 5'3.00" Weight: 82lbs. 6.4oz. 37.636045bi; 15.93 BMI Method:Stated Exam Exam Patient acknowledged, consented, and participated in this virtual visit which was conducted using real time audio/video Vital Signs Date Time Temp Pulse Resp B/P (MAP) Pulse Ox O2 Delivery O2 Flow Rate FiO2 02/14/22 16:26 212/88 02/14/22 16:10 97 Room Air 02/14/22 16:00 63 15 212/88 97 Room Air 02/14/22 15:51 62 02/14/22 15:45 61 13 198/82 97 Room Air 02/14/22 15:39 36.8 64 18 202/86 97 Room Air 02/14/22 15:27 61 12 203/99 96 02/14/22 12:55 36.7 66 26 207/91 (129) 99 Height & Weight Height: 5'3.00" Weight: 82lbs. 6.4oz. 37.913690cp; 15.93 BMI Method:Stated General Appearance: No Apparent Distress Capillary Refill: Less Than 3 Seconds Peripheral Pulses: 2+ Radial Pulses (R), 2+ Radial Pulses (L) Gastrointestinal: normal bowel sounds, non tender, soft Results Lab Laboratory Tests 02/14/22 14:08 Assessment/Plan Assessment/Plan ` VAHID GOODEN MD February 14, 2022 17:51
[2022-02-14] MEDS ORDERED: NS (IVPB) 250 ML IV ONE (20:00)
[2022-02-15 04:41] LABS: BASOPHILS # (AUTO) 0.1 10^3/uL (0.0-0.1); BASOPHILS % (AUTO) 1 % (0-10); EOSINOPHILS # (AUTO) 0.2 10^3/uL (0.0-0.3); EOSINOPHILS % (AUTO) 3 % (0-10); HEMATOCRIT 32 % (35-52); HEMOGLOBIN 10.3 g/dL (11.5-16.0); LYMPHOCYTES # (AUTO) 0.6 10^3/uL (1.0-4.0); LYMPHOCYTES % (AUTO) 11 % (12-44); MEAN CORPUSCULAR HEMOGLOBIN 30 pg (25-34); MEAN CORPUSCULAR HGB CONC 33 g/dL (32-36); MEAN CORPUSCULAR VOLUME 92 fL (80-99); MEAN PLATELET VOLUME 8.9 fL (9.0-12.2); MONOCYTES # (AUTO) 0.5 10^3/uL (0.0-1.0); MONOCYTES % (AUTO) 10 % (0-12); NEUTROPHILS # (AUTO) 3.9 10^3/uL (1.8-7.8); NEUTROPHILS % (AUTO) 75 % (42-75); PLATELET COUNT 264 10^3/uL (130-400); WHITE BLOOD COUNT 5.2 10^3/uL (4.3-11.0)
[2022-02-15 04:52] LABS: ALBUMIN 3.5 GM/DL (3.2-4.5); POTASSIUM 3.6 MMOL/L (3.6-5.0)
[2022-02-15 04:53] LABS: CALCIUM 8.5 MG/DL (8.5-10.1)
[2022-02-15 04:54] LABS: TOTAL PROTEIN 6.3 GM/DL (6.4-8.2)
[2022-02-15 04:56] LABS: BILIRUBIN,TOTAL 0.6 MG/DL (0.1-1.0)
[2022-02-15 04:58] LABS: CREATININE SERUM 0.67 MG/DL (0.60-1.30); PHOSPHORUS 3.6 MG/DL (2.3-4.7)
[2022-02-15 05:01] LABS: MAGNESIUM 1.9 MG/DL (1.6-2.4)
[2022-02-15] MEDS: APIXABAN 5 MG (ELIQUIS) TABLET PO SCH ×3 (07:44→21:17)
[2022-02-15] MEDS: ASPIRIN E.C. 81 MG (ECOTRIN) TAB PO SCH (08:18)
--- NOTE | 2022-02-15 08:34 | History & Physical ---
History of Present Illness History of Present Illness Reason for visit/HPI PT IS AN 86 Y/O FEMALE WHO IS KNOWN TO ME FROM CLINIC. SHE PRESENTED TO THE HOSPITAL WITH CONCERN FOR STROKE-LIKE SYMPTOMS. PT'S SON STATES THAT HE WAS TALKING TO HER ON THE PHONE AND SHE WAS NOT MAKING ANY SENSE, HER CAREGIVER AND ALSO NOTICED THE SYMPTOMS AND THEY HAD HER TRANSPORTED TO THE HOSPITAL VIA EMS. IN THE ER, SHE WAS SHOWING STROKE-LIKE SYMPTOMS, HAD CT IMAGING WHICH DID NOT REVEAL A STROKE, BUT DUE TO HER RECENT TAVR AND PACEMAKER PLACEMENT, SHE WAS ADMITTED TO THE HOSPITAL FOR CLOSE MONITORING AND FURTHER WORK-UP. Date of Admission February 14, 2022 at 14:25 Date Seen by a Provider: February 15, 2022 Time Seen by a Provider: 08:20 Attending Physician Zev Bradshaw MD Admitting Physician ZEV BRADSHAW MD Consult EICU Allergies and Home Medications Allergies Coded Allergies: bacitracin (Verified Allergy, Mild, RASH, 10/15/19) lidocaine (Verified Allergy, Mild, RASH, 10/15/19) neomycin (Verified Allergy, Mild, RASH, 10/15/19) polymyxin B (Verified Allergy, Mild, RASH, 10/15/19) pramoxine (Verified Allergy, Mild, RASH, 10/15/19) Patient Home Medication List Home Medication List Reviewed: Yes Acetaminophen (Acetaminophen ER) 650 Mg Tablet.er, 650 MG PO HS, (Reported) Entered as Reported by: CRYSTAL NEVES on 04/24/17 0925 Last Action: Reviewed Acetaminophen (Acetaminophen ER) 650 Mg Tablet.er, 650 MG PO DAILY PRN for PAIN- MILD, (Reported) Entered as Reported by: CRYSTAL NEVES on 04/24/17 0930 Last Action: Continued Apixaban (Eliquis) 2.5 Mg Tablet, 2.5 MG PO BID, (Reported) Entered as Reported by: AMPARO COCHRAN on 01/04/22 0855 Last Action: Reviewed Calcium Citrate/Vitamin D3 (Calcium Citrate - Vit D3 Tab) 1 Each Tablet, 1 TAB PO DAILY, (Reported) Entered as Reported by: CRYSTAL NEVES on 04/24/17 0903 Last Action: Held Doxazosin Mesylate (Doxazosin Mesylate) 4 Mg Tablet, 2 MG PO HS, (Reported) Entered as Reported by: KATIE QUEVEDO on 02/15/22 1024 Last Action: Continued Escitalopram Oxalate (Escitalopram Oxalate) 5 Mg Tablet, 5 MG PO HS, (Reported) Entered as Reported by: MARE MCDERMOTT on 11/07/16 0907 Last Action: Reviewed Esomeprazole Magnesium (Esomeprazole Magnesium) 40 Mg Capsule.dr, 40 MG PO DAILY, (Reported) Entered as Reported by: AMPARO COCHRAN on 01/04/22854 Last Action: Reviewed Famotidine (Famotidine) 40 Mg Tablet, 40 MG PO HS, (Reported) Entered as Reported by: CANDICE JIN on 10/06/15 1243 Last Action: Reviewed Hydralazine HCl (Hydralazine HCl) 25 Mg Tablet, 50 MG PO TID, (Reported) Entered as Reported by: AMPARO COCHRAN on 01/04/22854 Last Action: Continued Melatonin (Melatonin) 10 Mg Tablet, 10 MG PO HS PRN for SLEEP, (Reported) Entered as Reported by: KATIE QUEVEDO on 02/15/22 1024 Last Action: Continued Metoprolol Succinate (Metoprolol Succinate) 25 Mg Tab.er.24h, 25 MG PO BID, (Reported) Entered as Reported by: AMPARO COCHRAN on 01/04/22854 Last Action: Reviewed Multivitamin (Multiple Vitamins) 1 Each Tablet, 1 EACH PO DAILY, (Reported) Entered as Reported by: ALBERTO BROWN on 10/15/19811 Last Action: Reviewed Simvastatin (Simvastatin) 10 Mg Tablet, 10 MG PO HS, (Reported) Entered as Reported by: AMPARO COCHRAN on 01/04/22854 Last Action: Reviewed Vit A/Vit C/Vit E/Zinc/Copper (Preservision Areds Tablet) 1 Each Tablet, 1 EACH PO DAILY, (Reported) Entered as Reported by: ALBERTO BROWN on 10/15/19811 Last Action: Reviewed Discontinued Medications Aspirin (Aspirin EC) 81 Mg Tablet.dr, 81 MG PO DAILY, (Reported) Discontinued Reason: No Longer Taking Entered as Reported by: AMPARO COCHRAN on 01/04/22854 Last Action: Discontinued Calcium Carbonate (Tums) 300 Mg Tab.chew, 300 MG PO PRN PRN for INDIGESTION, (Reported) Discontinued Reason: No Longer Taking Entered as Reported by: CRYSTAL NEVES on 04/24/17902 Last Action: Discontinued Cholecalciferol (Vitamin D3) (Vitamin D3) 2,000 Unit Tablet, 2,000 UNIT PO DAILY, (Reported) Discontinued Reason: No Longer Taking Entered as Reported by: ALBERTO BROWN on 10/15/19 08 Last Action: Discontinued Cyanocobalamin (Vitamin B-12) (Vitamin B12) 2,500 Mcg Tablet, 2,500 MCG PO Q48H, (Reported) Discontinued Reason: No Longer Taking Entered as Reported by: ALBERTO BROWN on 10/15/19811 Last Action: Discontinued Docusate Sodium (Docusate Sodium) 100 Mg Capsule, 100 MG PO BID, (Reported) Discontinued Reason: No Longer Taking Entered as Reported by: CRYSTAL NEVES on 04/24/17902 Last Action: Discontinued Pyridoxine HCl (Vitamin B-6) 100 Mg Tablet, 100 MG PO BID, (Reported) Discontinued Reason: No Longer Taking Entered as Reported by: CANDICE JIN on 10/06/15 1243 Last Action: Discontinued Past Rrfxnjf-Olsjng-Bkqujv Hx Patient Social History Marrital Status: Living Status: LIVES AT HOME WITH HER SPOUSE- NATHALIA Employed/Student: retired Tobacco Use?: No Smoking Status: Never a Smoker Smokeless Tobacco Frequency: Never a User Use of E-Cig and/or Vaping dev: No Substance use?: No Alcohol Use?: No Pt feels they are or have been: No Immunizations Up To Date Date of Influenza Vaccine: Jul 01, 2019 First/Initial COVID19 Vaccinat: 2020 Second COVID19 Vaccination Conor: 2020 Tetanus Booster (TDap): Unknown Date of Pneumonia Vaccine: Jul 01, 2019 Seasonal Allergies Seasonal Allergies: Yes Current Status Advance Directives: Unable to obtain Communicates: Verbally Primary Language: Taiwanese Preferred Spoken Language: Taiwanese Is interpretation needed?: No Sensory deficits: Vision impairment Implanted or Applied Medical D: Pacemaker Past Medical History Surgeries: Breast, Cardiac (PACEMAKER PLACEMENT, TAVR), Hysterectomy, Orthopedic, Valve Replacement Currently Using CPAP: No Currently Using BIPAP: No Heart Murmur, High Cholesterol, Hypertension 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 DOWN SYNDROME) Hypertension 19 MOTHER G8 SISTER Kidney disease sister Myocardial infarction 19 FATHER Neoplasm 19 MOTHER (BREAST CANCER) Visual disorder 19 MOTHER (MACULAR DEGENERATION) Heart Disease, Cancer, Hypertension, Renal Disease, Other Conditions/Hx Review of Systems Constitutional: No chills, No fever, No malaise, No weakness EENTM: No hoarseness, No throat pain Respiratory: No cough, No dyspnea on exertion, No short of breath Cardiovascular: No chest pain, No edema Gastrointestinal: No abdominal pain, No nausea, No vomiting Genitourinary: no symptoms reported Musculoskeletal: No back pain, No muscle stiffness; muscle weakness Skin: no symptoms reported Psychiatric/Neurological: Denies Anxiety, Denies Depressed; Weakness All Other Systems Reviewed Negative Unless Noted: Yes Physical Exam Vital Signs Vital Signs - First Documented 02/14/22 02/14/22 12:55 15:39 Temp 36.7 Pulse 66 Resp 26 B/P (MAP) 207/91 (129) Pulse Ox 99 O2 Delivery Room Air Capillary Refill : Less Than 3 Seconds Height, Weight, BMI Height: 5'3.00" Weight: 82lbs. 6.4oz. [id number]; 15.93 BMI Method:Stated General Appearance: No Apparent Distress, Thin HEENT: PERRL/EOMI, Pharynx Normal Neck: Full Range of Motion, Normal Inspection, Non Tender, Supple Respiratory: Chest Non Tender, Lungs Clear, Normal Breath Sounds, No Accessory Muscle Use, No Respiratory Distress Cardiovascular: Regular Rate, Rhythm, Normal Peripheral Pulses, Systolic Murmur; No Tachycardia Gastrointestinal: Normal Bowel Sounds, No Organomegaly, No Pulsatile Mass, Non Tender, Soft Rectal: Deferred Back: Normal Inspection, No Vertebral Tenderness Extremity: Normal Capillary Refill, Normal Inspection, Normal Range of Motion, Non Tender, No Calf Tenderness, No Pedal Edema Neurologic/Psychiatric: Alert, Oriented x3, No Motor/Sensory Deficits, Normal Mood/Affect, glass scullion II-XII Norm as Tested, Facial Droop (VERY VERY SLIGHT ON LEFT); No Motor Weakness Skin: Normal Color, Warm/Dry Lymphatic: No Adenopathy Assessment/Plan Assessment and Plan TRANSIENT ISCHEMIC ATTACK HYPERTENSIVE ENCEPHALOPATHY RECENT TAVR RECENT PACEMAKER PLACEMENT HYPERTENSION ADVANCED AGE GENERALIZED WEAKNESS AND FRAILTY GERD DEPRESSION WITH ANXIETY TRANSIENT ISCHEMIC ATTACK WITH HYPERTENSIVE ENCEPHALOPATHY - PLANNING ON MRI TODAY IF POSSIBLE - CALL PLACED FROM NETWORK CONSULTANT WHO PLACED PACEMAKER - CANNOT DO MRI FOR ANOTHER 5 WEEKS. - RESUME HOME REGIMEN - BP IMPROVED AFTER CARDIZEM DRIP, WITH RAPID DECREASE IN BP'S AND DRIP WAS STOPPED RECENT TAVR AND RECENT PACEMAKER PLACEMENT - CONTINUE WITH CURRENT REGIMEN - PT ON ELIQUIS ADVANCED AGE WITH GENERALIZED WEAKNESS AND FRAILTY - WILL START THERAPY GERD - RESUME PPI THERAPY DEPRESSION WITH ANXIETY - RESUME SSRI THERAPY. DVT PROPHYLAXIS WITH SCD AND ELIQUIS GI PROPHYLAXIS WITH PPI Admission Diagnosis TRANSIENT ISCHEMIC ATTACK HYPERTENSIVE ENCEPHALOPATHY RECENT TAVR RECENT PACEMAKER PLACEMENT HYPERTENSION ADVANCED AGE GENERALIZED WEAKNESS AND FRAILTY GERD DEPRESSION WITH ANXIETY Admission Status: Inpatient Order (span 2 midnights) Reason for Inpatient Admission: INPATIENT ADMISSION FOR STROKE-LIKE SYMPTOMS AND UNCONTROLLED HYPERTENSION - WILL REQUIRE AT LEAST 2-3 MIDNIGHTS IN THE HOSPITAL Clinical Quality Measures Stroke: Date of last known well: February 14, 2022 Time of last known well: 12:00 ZEV BRADSHAW MD February 15, 2022 08:34
--- NOTE | 2022-02-15 09:55 | Physical Therapy Evaluation ---
PT Evaluation-General Medical Diagnosis Admission Date February 14, 2022 at 14:25 Medical Diagnosis: CVA/TIA/HTN Onset Date: February 14, 2022 Therapy Diagnosis Therapy Diagnosis: debility/weakness Height/Weight Height (Feet): 5 Height (Inches): 3.00 Weight (Pounds): 82 Weight (Ounces): 6.4 Precautions Precautions/Isolations: Fall Prevention, Standard Precautions Referral Physician: Leeann Reason for Referral: Evaluation/Treatment Medical History Pertinent Medical History: Arthritis, GERD, HTN, OA Current History EMS secondary to left facial droop and difficulty speaking Reviewed History: Yes Social History Home: Single Level Current Living Status: Spouse Entry Into Home: Stairs With Railing PT Steps Into Home: 2 Prior Prior Level of Function SCALE: Activities may be completed with or without assistive devices. 0-Nwxkhvzxmc-rpuxikk completes the activity by him/herself with no assistance from a helper. 5-Set-up or Clean-up Assistance-helper sets up or cleans up; patient completes activity. [place] assists only prior to or following the activity. 4-Supervision or Touching Assistance-helper provides verbal cues and/or touching/steadying and/or contact guard assistance as patient completes activity. Assistance may be provided throughout the activity or intermittently. 3-Partial/Moderate Assistance-helper does LESS THAN HALF the effort. [place] lifts, holds or supports trunk or limbs, but provides less than half the effort. 2-Substantial/Maximal Assistance-helper does MORE THAN HALF the effort. [place] lifts or holds trunk or limbs and provides more than half the effort. 1-Cqbxdhikk-wfdopa does ALL the effort. Patient does none of the effort to complete the activity. Or, the assistance of 2 or more helpers is required for the patient to complete the activity. If activity was not attempted, code reason: 7-Patient Refused. 9-Not Applicable-not attempted and the patient did not perform the activity before the current illness, exacerbation or injury. 10-Not Attempted due to Environmental Limitations-(lack of equipment, weather restraints, etc.). 88-Not Attempted due to Medical Conditions or Safety Concerns. Bed Mobility: 6 Transfers (B,C,W/C): 6 Gait: 6 Stairs: 6 Indoor Mobility (Ambulation): Independent Stairs: Independent Prior Devices Use: None PT Evaluation-Current Subjective Patient agrees to PT. Spouse present. Objective Patient Orientation: Normal For Age ROM/Strength ROM Lower Extremities bilateral LE WFL Strength Lower Extremities 3+/5 grossly bilateral LE Integumentary/Posture Bowel Incontinence: No Bladder Incontinence: No Posture WFL Neuromuscular (Tone, Coordination, Reflexes) grossly intact Sensory Vision: Functional Hearing: Functional Transfers Roll Left to Right (QC): 6 Sit to Lying (QC): 6 Lying to Sitting/Side of Bed(Q: 6 Sit to Stand (QC): 6 Chair/Aus-ti-Fsmel Xfer(QC): 6 Gait Does the Patient Walk?: Yes Mode of Locomotion: Walk Anticipated Mode of Locomotion: Walk Walk 10 feet (QC): 6 Walk 50 ft with 2 Turns(QC): 6 Walk 150 ft (QC): 6 Distance: 500' Gait Assistive Device: None Comments/Gait Description slightly unsteady initially with self correct/functional gait sequence Balance Sitting Static: Normal Sitting Dynamic: Normal Standing Static: Good Standing Dynamic: Good Assessment/Needs Patient is currently at independent OF with all gross motor skills and does not require skilled PT intervention. Rehab Potential: Fair PT Plan Treatment/Plan Treatment Plan: Discontinue PT, goals met Treatment Duration: February 15, 2022 Frequency: 1 time per week Estimated Hrs Per Day: .25 hour per day Time/GCodes Time In: 801 Time Out: 816 Total Billed Treatment Time: 15 Total Billed Treatment 1 visit EVMod 15 min NICKY VALADEZ PT February 15, 2022 09:55
[2022-02-15] MEDS ORDERED: MELA10TA2 PO (10:24)
[2022-02-15] MEDS ORDERED: DOXA4TAB2 PO (10:24)
--- NOTE | 2022-02-15 10:40 | Occupational Therapy Eval ---
OT Evaluation-General/PLF Medical Diagnosis Admission Date February 14, 2022 at 14:25 Medical Diagnosis: CVA/TIA/HTN Onset Date: February 14, 2022 Therapy Diagnosis Therapy Diagnosis: n/a Height/Weight Height (Feet): 5 Height (Inches): 3.00 Weight (Pounds): 82 Weight (Ounces): 6.4 Precautions Precautions/Isolations: Fall Prevention, Standard Precautions Referral Physician: Leeann Referral Reason: Evaluation/Treatment Medical History Pertinent Medical History: Arthritis, GERD, HTN, OA Additional Medical History HTN, GERD, macular degeneration, breast cancer, arthritis Current History EMS from home due to sudden onset of difficulty speaking and L facial droop Social History Home: Single Level Current Living Status: Spouse Entry Into Home: Stairs With Railing Steps Into Home: 2 ADL-Prior Level of Function SCALE: Activities may be completed with or without assistive devices. 7-Blwaysbkml-rftgdiw completes the activity by him/herself with no assistance from a helper. 5-Set-up or Clean-up Assistance-helper sets up or cleans up; patient completes activity. [place] assists only prior to or following the activity. 4-Supervision or Touching Assistance-helper provides verbal cues and/or touching/steadying and/or contact guard assistance as patient completes activ ity. Assistance may be provided throughout the activity or intermittently. 3-Partial/Moderate Assistance-helper does LESS THAN HALF the effort. [place] lifts, holds or supports trunk or limbs, but provides less than half the effort. 2-Substantial/Maximal Assistance-helper does MORE THAN HALF the effort. [place] lifts or holds trunk or limbs and provides more than half the effort. 3-Ehnvqfwwb-salugg does ALL the effort. Patient does none of the effort to complete the activity. Or, the assistance of 2 or more helpers is required for the patient to complete the activity. If activity was not attempted, code reason: 7-Patient Refused. 9-Not Applicable-not attempted and the patient did not perform the activity before the current illness, exacerbation or injury. 10-Not Attempted due to Environmental Limitations-(lack of equipment, weather restraints, etc.). 88-Not Attempted due to Medical Conditions or Safety Concerns. ADL PLOF Comments Pt reports IND with ADLs and functional mobility, no AD. Self Care: Independent Functional Cognition: Independent OT Current Status Subjective Pt up in recliner, agreeable to OT tx. Mental Status/Objective Patient Orientation: Person, Place, Situation Current Upper Extremity ROM WFL ADL-Treatment Eating (QC): 6 Oral Hygiene (QC): 5 (per clinical judgment.) Lower Body Dressing (QC): 5 (Per clinical judgment, pt would be able to thread BLEs since she is able to complete footwear, and able to manage pants up without difficulty.) On/Off Footwear (QC): 6 Other Treatments Pt up in recliner, agreeable to OT tx. Pt and provide information about PLOF and home set up. Pt feels like she is at PLOF with ADLs, able to doff/don shoes without difficulty. She is independent with meals. Per PT report, pt performed functional mobility 500' without AD independently this AM, and she is independent with transfers. Pt reports being at PLOF, no skilled OT services indicated at this time. Post tx, pt in recliner, call light in reach and all needs met, warm blankets provided for comfort. Education OT Patient Education: Correct positioning, Energy conservation, Exercise program, Modified ADL techniques, Progress toward Goal/Update tx plan, Purpose of tx/functional activities Teaching Recipient: Patient Teaching Methods: Discussion Response to Teaching: Verbalize Understanding OT Chcf Goals Chcf Goals 1=Demonstrate adherence to instructed precautions during ADL tasks. 2=Patient will verbalize/demonstrate understanding of assistive devices/modifications for ADL. 3=Patient will improve strength/tolerance for activity to enable patient to perform ADL's. OT Education/Plan Problem List/Assessment Assessment: No Skilled OT Needs ID'd No skilled OT services indicated at this time, as pt is at PLOF, independent with ADLs and functional mobility. D/C from OT. Discharge Recommendations Plan/Recommendations: Discharge/Goals Met Treatment Plan/Plan of Care Patient would benefit from OT for education, treatment and training to promote independence in ADL's, mobility, safety and/or upper extremity function for ADL's. Plan of Care: ADL Retraining, Functional Mobility Treatment Duration: February 15, 2022 Frequency: 1 time per week (eval only) Rehab Potential: Fair Time/GCodes Start Time: 09:27 Stop Time: 09:37 Total Time Billed (hr/min): 10 Billed Treatment Time 1, EVJUS ENGLISH OT February 15, 2022 10:40
--- NOTE | 2022-02-15 11:06 | ST Cognitive Linguistic Eval ---
Speech Evaluation-General Medical Diagnosis CVA/TIA/HTN Onset Date: February 14, 2022 Therapy Diagnosis Therapy Diagnosis: Mild Neurocognitive Disorder Referral Referring Physician: Anum Bradshaw Reason for Referral: Evaluation/Treatment Medical History Pertinent Medical History: Arthritis, GERD, HTN, OA Arthritis, HTN, GERD, OA Current History CVA/TIA/HTN Reviewed History: Yes Social History Current Living Status: Spouse Speech PLF-Current Status Prior Level of Function The patient denied recent concerns or challenges with her speech, language, or cognition. Subjective The patient was seated upright in recliner. Pt awake and alert. Pt was willing to participate in the cognitive linguistic assessment. and son present during test. Language Eval: Auditory Comprehends Simple Yes/No Ques: Functional Indent/Objects Multiple Dias: Functional Ident/Pics in Multiple Dias: Functional Follows 1-Step Commands: Functional Follows Complex Directions: Functional Follows General Conversations: Functional Language Eval: Verbal Language Completes Spontaneous Greeting: Functional Produces Auto, Serial Info: Functional Imitates Simple Words/Phrases: Functional Word Finding: Functional Requests Basic Needs: Functional States Basic Personal Info: Functional Expresses Complex Ideas: Functional Language Evaluation: Reading Comprehends Single Nouns: Functional Follows Simple Written Direct: Functional Comprehends Multiple Sentences: Functional Language Evaluation: Writing Writes to Simple Dictation: Functional Cognitive Patient Orientation The patient was independently oriented to self, location, month, day of week, date, and year. Objective Cognitive Domain Attention: WNL Memory: Mild Problem Solving: Mild Executive Functions: Mild Visuospatial Skills: WNL Composite Severity Rating: WNL Clock Drawing Severity Rating: WNL Objective Formal/Standardized Tests [facility] Mental Status ([facility]) Examination Results The patient demonstrated a result of +22/30 correlating to a mild neurocognitive disorder. Oral Motor/Speech Production Pt was 100% intelligible in known and unknown contexts. No dysarthria or apraxia present. Impression The patient demonstrated mild cognitive linguistic deficits in the areas of problem solving and memory. Receptive and expressive language skills were judged to be within normal limits. Pt able to answer y/n questions, demonstrate repetition of sentences, produce spontaneous speech, name items, follow multistep directions, read sentences and demonstrate understanding of written words, and write single words. Skilled speech pathology to focus on the identified areas of difficulties would be beneficial for improved safety with increased independence upon discharge from the ICU. Speech Short Term Goals Short Term Goals Short Term Goals The patient will demonstrate 90% accuracy with memory and functional problem solving with mild clinician verbal and visual cueing. Speech Transportation Maintenance Operator Goals Mcfp Goals The patient will demonstrate improve cognitive linguistic skills for safe discharge to the least restricted environment. Speech-Plan Patient/Family Goals Patient/Family Goals: Return to home with spouse Treatment Plan Speech Therapy Treatment Plan: Continue Plan of Care Pt presents with a mild neurocognitive impairment including difficulty with memory and problem solving. Pt and pt's family did not express concern with cognition or linguistic abilities. Pt would benefit from skilled ST for improved independence and safety upon discharge. Treatment Duration: February 22, 2022 Frequency: Modified Program (IRF) Estimated Hrs Per Day: .25 hour per day Rehab Potential: Good Barriers to Learning: mild cognitive impairment Pt/Family Agrees to Plan: Yes Safety Risks/Education Teaching Recipient: Patient, Family Teaching Methods: Discussion Response to Teaching: Verbalize Understanding Education Topics Provided: SLUMS and ST evaluation results Time Speech Therapy Time In: 09:37 Speech Therapy Time Out: 09:55 Total Billed Time: 18 Billed Treatment Time 1, YRIS Gunn February 15, 2022 11:06
--- NOTE | 2022-02-15 14:26 | Diagnostic Imaging Report ---
CLINICAL INDICATION: Patient with CVA. COMPARISON: Ultrasound of the carotid arteries dated 12/30/2019. EXAM: Real-time ultrasound carotid Doppler duplex imaging is performed bilaterally with multiple real-time grayscale images obtained in various projections. Additional spectral analysis and color Doppler duple images were also obtained. Peak systolic velocity, ICA/CCA peak systolic ratio, spectral analysis, and vascular morphology are studied. FINDINGS: ARTERY VELOCITY Right Left CCA 1.03 m/s 1.00 m/s ICA 1.82 m/s 1.62 m/s ECA 1.97 m/s 1.78 m/s ICA/CCA 1.8 1.6 VERT.ART Antegrade Antegrade There is bilateral carotid artery atherosclerotic disease which has slightly progressed in the interim. There are borderline elevated velocities involving the distal cervical right ICA and proximal cervical left ICA with peak systolic velocities of 1.82 m/s and 1.62 m/s, respectively. IMPRESSION: There is bilateral carotid artery atherosclerotic disease with borderline significant stenosis involving the distal cervical right ICA and proximal cervical left ICA. Dictated by: Dictated on workstation # [id number]
[2022-02-15] MEDS: dilTIAZem DRIP PRE-MIX 125 ML IV SCH (16:06)
[2022-02-15] MEDS ORDERED: ACETAMINOPHEN ER 650 MG (TYLENOL ARTHRITIS) PO PRN (19:30)
[2022-02-15] MEDS ORDERED: MELATONIN 10 MG TABLET PO PRN (19:30)
[2022-02-15] MEDS ORDERED: doxAzosin 4 MG (CARDURA) TAB PO SCH (21:00)
[2022-02-15] MEDS: ACETAMINOPHEN ER 650 MG (TYLENOL ARTHRITIS) PO SCH (21:17)
[2022-02-15] MEDS: FAMOTIDINE 20 MG (PEPCID) TABLET PO SCH (21:18)
[2022-02-15] MEDS: hydrALAZINE (APRESOLINE) 25 MG TAB PO SCH (22:13)
[2022-02-16] MEDS: hydrALAZINE (APRESOLINE) 25 MG TAB PO SCH ×3 (05:45→20:03)
[2022-02-16 06:03] LABS: BASOPHILS # (AUTO) 0.1 10^3/uL (0.0-0.1); BASOPHILS % (AUTO) 1 % (0-10); EOSINOPHILS # (AUTO) 0.2 10^3/uL (0.0-0.3); EOSINOPHILS % (AUTO) 4 % (0-10); HEMATOCRIT 30 % (35-52); HEMOGLOBIN 10.2 g/dL (11.5-16.0); LYMPHOCYTES # (AUTO) 0.5 10^3/uL (1.0-4.0); LYMPHOCYTES % (AUTO) 10 % (12-44); MEAN CORPUSCULAR HEMOGLOBIN 31 pg (25-34); MEAN CORPUSCULAR HGB CONC 34 g/dL (32-36); MEAN CORPUSCULAR VOLUME 92 fL (80-99); MONOCYTES # (AUTO) 0.5 10^3/uL (0.0-1.0); MONOCYTES % (AUTO) 9 % (0-12); NEUTROPHILS # (AUTO) 4.1 10^3/uL (1.8-7.8); NEUTROPHILS % (AUTO) 77 % (42-75); PLATELET COUNT 236 10^3/uL (130-400); WHITE BLOOD COUNT 5.3 10^3/uL (4.3-11.0)
[2022-02-16 06:19] LABS: ALBUMIN 3.4 GM/DL (3.2-4.5)
[2022-02-16 06:20] LABS: POTASSIUM 3.9 MMOL/L (3.6-5.0)
[2022-02-16 06:21] LABS: CALCIUM 8.4 MG/DL (8.5-10.1)
[2022-02-16 06:22] LABS: TOTAL PROTEIN 5.9 GM/DL (6.4-8.2)
[2022-02-16 06:24] LABS: BILIRUBIN,TOTAL 0.5 MG/DL (0.1-1.0)
[2022-02-16 06:26] LABS: CREATININE SERUM 0.73 MG/DL (0.60-1.30)
--- NOTE | 2022-02-16 07:55 | Progress Note ---
Subjective Subjective Date Seen by Provider: February 16, 2022 Time Seen by Provider: 07:30 Pt is doing well, she is ambulating independently and reports no weakness, CP, PEREZ, or SOB. Review of Systems General: No Chills, No Night Sweats HEENT: No Head Aches, No Visual Changes Pulmonary: No Dyspnea, No Cough Cardiovascular: No: Chest Pain, Palpitations Gastrointestinal: Diarrhea; No: Nausea, Vomiting, Abdominal Pain Genitourinary: No Dysuria, No Hematuria Musculoskeletal: No: neck pain Neurological: Weakness; No: Confusion, Seizures All Other Systems Reviewed All Other Systems Reviewed: Yes Objective Exam Vital Signs Vital Signs Date Time Temp Pulse Resp B/P (MAP) Pulse Ox O2 Delivery O2 Flow Rate FiO2 02/16/22 05:50 145/61 02/16/22 03:49 36.6 57 16 190/80 97 Room Air 02/16/22 01:00 55 02/15/22 23:34 36.0 62 13 171/88 98 Room Air 02/15/22 21:21 65 17 188/87 94 Room Air 02/15/22 20:00 36.8 60 16 200/104 100 Room Air 02/15/22 20:00 100 Room Air 02/15/22 19:00 63 02/15/22 16:31 36.4 57 16 174/86 98 Room Air 02/15/22 13:00 62 02/15/22 12:00 64 161/97 Room Air 02/15/22 11:00 61 21 98 Room Air 02/15/22 10:55 36.6 02/15/22 10:00 61 15 158/73 95 Room Air 02/15/22 09:00 60 15 158/82 95 Room Air 02/15/22 08:00 37.2 02/15/22 08:00 98 Room Air 02/15/22 08:00 60 15 134/84 95 Room Air I & O 02/16/22 07:00 Intake Total 825 ml Output Total 650 ml Balance 175 ml General Appearance: No Apparent Distress, Thin HEENT: PERRL/EOMI, Pharynx Normal Neck: Full Range of Motion, Normal Inspection, Non Tender, Supple Respiratory: Chest Non Tender, Lungs Clear, Normal Breath Sounds, No Accessory Muscle Use, No Respiratory Distress Cardiovascular: Regular Rate, Rhythm, Normal Peripheral Pulses, Systolic Murmur Gastrointestinal: Normal Bowel Sounds, No Organomegaly, No Pulsatile Mass, Non Tender, Soft Rectal: Deferred Back: Normal Inspection, No Vertebral Tenderness Extremity: Normal Capillary Refill, Normal Inspection, Normal Range of Motion, Non Tender, No Calf Tenderness, No Pedal Edema Neurologic/Psychiatric: Alert, Oriented x3, No Motor/Sensory Deficits, Normal Mood/Affect, surgical endoscopist II-XII Norm as Tested, Facial Droop Skin: Normal Color, Warm/Dry Lymphatic: No Adenopathy Results Lab Laboratory Tests 02/16/22 05:43: White Blood Count 5.3, Red Blood Count 3.28L, Hemoglobin 10.2L, Hematocrit 30L, Mean Corpuscular Volume 92, Mean Corpuscular Hemoglobin 31, Mean Corpuscular Hemoglobin Concent 34, Red Cell Distribution Width 14.4, Platelet Count 236, Mean Platelet Volume 9.0, Immature Granulocyte % (Auto) 0, Neutrophils (%) (Auto) 77H, Lymphocytes (%) (Auto) 10L, Monocytes (%) (Auto) 9, Eosinophils (%) (Auto) 4, Basophils (%) (Auto) 1, Neutrophils # (Auto) 4.1, Lymphocytes # (Auto) 0.5L, Monocytes # (Auto) 0.5, Eosinophils # (Auto) 0.2, Basophils # (Auto) 0.1, Immature Granulocyte # (Auto) 0.0, Sodium Level 134L, Potassium Level 3.9, Chloride Level 102, Carbon Dioxide Level 20L, Anion Gap 12, Blood Urea Nitrogen 23H, Creatinine 0.73, Estimat Glomerular Filtration Rate 79, BUN/Creatinine Ratio 32, Glucose Level 85, Calcium Level 8.4L, Corrected Calcium 8.9, Phosphorus Level 4.0, Magnesium Level 2.0, Total Bilirubin 0.5, Aspartate Amino Transf (AST/SGOT) 25, Alanine Aminotransferase (ALT/SGPT) 11, Alkaline Phosphatase 53, Total Protein 5.9L, Albumin 3.4 Assessment/Plan Assessment/Plan Admission Dx TRANSIENT ISCHEMIC ATTACK HYPERTENSIVE ENCEPHALOPATHY RECENT TAVR RECENT PACEMAKER PLACEMENT HYPERTENSION ADVANCED AGE GENERALIZED WEAKNESS AND FRAILTY GERD DEPRESSION WITH ANXIETY Assessment and Plan TRANSIENT ISCHEMIC ATTACK HYPERTENSIVE ENCEPHALOPATHY RECENT TAVR RECENT PACEMAKER PLACEMENT HYPERTENSION ADVANCED AGE GENERALIZED WEAKNESS AND FRAILTY GERD DEPRESSION WITH ANXIETY Hyponatremia Diarrhea TRANSIENT ISCHEMIC ATTACK WITH HYPERTENSIVE ENCEPHALOPATHY - PLANNING ON MRI TODAY IF POSSIBLE - CALL PLACED FROM [employer] WHO PLACED PACEMAKER - CANNOT DO MRI FOR A NOTHER 5 WEEKS. - RESUME HOME REGIMEN - BP IMPROVED AFTER CARDIZEM DRIP, WITH RAPID DECREASE IN BP'S AND DRIP WAS STOPPED RECENT TAVR AND RECENT PACEMAKER PLACEMENT - CONTINUE WITH CURRENT REGIMEN - PT ON ELIQUIS ADVANCED AGE WITH GENERALIZED WEAKNESS AND FRAILTY - WILL START THERAPY GERD - RESUME PPI THERAPY DEPRESSION WITH ANXIETY - RESUME SSRI THERAPY. Diarrhea -Stool assay for C. Diff DVT PROPHYLAXIS WITH SCD AND ELIQUIS GI PROPHYLAXIS WITH PPI Clinical Quality Measures Stroke: Date of last known well: February 14, 2022 Time of last known well: 12:00 Supervisory-Addendum Brief Verification & Attestation Participated in pt care: history, MDM, physical Personally performed: exam, history, MDM, supervision of care Care discussed with: Medical Student Procedures: n/a Results interpretation: Verified all documentation TRANSIENT ISCHEMIC ATTACK HYPERTENSIVE ENCEPHALOPATHY RECENT TAVR RECENT PACEMAKER PLACEMENT HYPERTENSION ADVANCED AGE GENERALIZED WEAKNESS AND FRAILTY GERD DEPRESSION WITH ANXIETY DIARRHEA TRANSIENT ISCHEMIC ATTACK WITH HYPERTENSIVE ENCEPHALOPATHY - PLANNING ON MRI TODAY IF POSSIBLE - CALL PLACED FROM [employer] WHO PLACED PACEMAKER - CANNOT DO MRI FOR ANOTHER 5 WEEKS. - RESUMED HOME REGIMEN RECENT TAVR AND RECENT PACEMAKER PLACEMENT - CONTINUE WITH CURRENT REGIMEN - PT ON ELIQUIS ADVANCED AGE WITH GENERALIZED WEAKNESS AND FRAILTY - WILL START THERAPY GERD - RESUME PPI THERAPY DEPRESSION WITH ANXIETY - RESUME SSRI THERAPY. DIARRHEA - IV FLUIDS, CHECK STOOLS DVT PROPHYLAXIS WITH SCD AND ELIQUIS GI PROPHYLAXIS WITH PPI SAMUEL SANDERS February 16, 2022 07:55 ZEV FARRAR MD February 17, 2022 20:46
[2022-02-16] MEDS: ASPIRIN E.C. 81 MG (ECOTRIN) TAB PO SCH (08:28)
[2022-02-16] MEDS: APIXABAN 5 MG (ELIQUIS) TABLET PO SCH ×2 (08:28→20:02)
[2022-02-16] MEDS: PANTOPRAZOLE 40 MG (PROTONIX) TAB PO SCH (08:29)
[2022-02-16] MEDS ORDERED: NS IV 500 ML 500 ML IV ONE (11:00)
[2022-02-16] MEDS: NS IV 1000 ML 1,000 ML IV SCH (11:03)
[2022-02-16 13:58] VITALS: BP_SYST 107; BP_SYST 90; BP_SYST 93; BP_DIAS 37; BP_DIAS 45; BP_DIAS 49
--- NOTE | 2022-02-16 14:51 | Speech Therapy Daily Note ---
Speech Daily Progress Note Subjective Date Seen by Provider: February 16, 2022 Time Seen by Provider: 00:18 Pt lying down in bed, but alert. Pt's was present during the session. Pt pleasant, cooperative, and willing to participate in ST treatment session Objective Session targeted novel recall. Pt was 50% accurate requiring mod verbal cues in remaining opportunities. Pt educated on memory strategies (e.g. chunking, silent rehearsal, visualization, associations, etc). Assessment Assessment Current Status: Good Progress Treatment Plan Continue Plan of Care Speech Short Term Goals Short Term Goals Short Term Goals The patient will demonstrate 90% accuracy with memory and functional problem solving with mild clinician verbal and visual cueing. Speech Fci Goals Fci Goals The patient will demonstrate improve cognitive linguistic skills for safe discharge to the least restricted environment. Speech-Plan Patient/Family Goals Patient/Family Goals: Pt plans to return home with spouse Treatment Plan Speech Therapy Treatment Plan: Continue Plan of Care Pt presents with mild neurocognitive disorder and benefits from min-mod verbal/visual cues for memory and problem solving Treatment Duration: Feb 23, 2022 Frequency: Modified Program (IRF) Estimated Hrs Per Day: Other Rehab Potential: Good Barriers to Learning: cognition Pt/Family Agrees to Plan: Yes Safety Risks/Education Teaching Recipient: Patient Teaching Methods: Discussion Response to Teaching: Verbalize Understanding Education Topics Provided: memory strategies, ST goals Time Speech Therapy Time In: 14:30 Speech Therapy Time Out: 14:48 Total Billed Time: 18 Billed Treatment Time 1VIVIA[address] SEAN ST February 16, 2022 14:51
[2022-02-16] MEDS: dilTIAZem DRIP PRE-MIX 125 ML IV SCH (15:12)
[2022-02-16] MEDS: ACETAMINOPHEN ER 650 MG (TYLENOL ARTHRITIS) PO SCH (20:02)
[2022-02-16] MEDS: FAMOTIDINE 20 MG (PEPCID) TABLET PO SCH (20:02)
[2022-02-16] MEDS ORDERED: doxAzosin 4 MG (CARDURA) TAB PO SCH (21:00)
[2022-02-17] MEDS ORDERED: doxAzosin 4 MG (CARDURA) TAB PO SCH (03:45)
[2022-02-17] MEDS: NS IV 1000 ML 1,000 ML IV SCH ×3 (03:53→20:29)
[2022-02-17] MEDS ORDERED: hydrALAZINE (APRESOLINE) 25 MG TAB PO ONE (05:00)
[2022-02-17 05:57] LABS: BASOPHILS % (AUTO) 1 % (0-10); EOSINOPHILS # (AUTO) 0.2 10^3/uL (0.0-0.3); EOSINOPHILS % (AUTO) 3 % (0-10); HEMATOCRIT 27 % (35-52); HEMOGLOBIN 9.1 g/dL (11.5-16.0); LYMPHOCYTES # (AUTO) 0.6 10^3/uL (1.0-4.0); LYMPHOCYTES % (AUTO) 10 % (12-44); MEAN CORPUSCULAR HEMOGLOBIN 31 pg (25-34); MEAN CORPUSCULAR HGB CONC 34 g/dL (32-36); MEAN CORPUSCULAR VOLUME 93 fL (80-99); MEAN PLATELET VOLUME 9.3 fL (9.0-12.2); MONOCYTES # (AUTO) 0.4 10^3/uL (0.0-1.0); MONOCYTES % (AUTO) 7 % (0-12); NEUTROPHILS # (AUTO) 5.1 10^3/uL (1.8-7.8); NEUTROPHILS % (AUTO) 80 % (42-75); PLATELET COUNT 228 10^3/uL (130-400); WHITE BLOOD COUNT 6.4 10^3/uL (4.3-11.0)
[2022-02-17 06:06] LABS: ALBUMIN 3.1 GM/DL (3.2-4.5)
[2022-02-17 06:07] LABS: POTASSIUM 3.5 MMOL/L (3.6-5.0)
[2022-02-17 06:09] LABS: TOTAL PROTEIN 5.4 GM/DL (6.4-8.2)
[2022-02-17 06:11] LABS: BILIRUBIN,TOTAL 0.3 MG/DL (0.1-1.0)
[2022-02-17 06:12] LABS: PHOSPHORUS 3.2 MG/DL (2.3-4.7)
[2022-02-17 06:13] LABS: CREATININE SERUM 0.71 MG/DL (0.60-1.30)
[2022-02-17 06:15] LABS: MAGNESIUM 1.8 MG/DL (1.6-2.4)
--- NOTE | 2022-02-17 07:31 | Progress Note ---
Subjective Subjective Date Seen by Provider: February 17, 2022 Time Seen by Provider: 07:00 Pt is doing well, she is ambulating independently and reports no weakness, CP, PEREZ, or SOB. She states "not as weak". Review of Systems General: No Chills, No Night Sweats HEENT: No Head Aches, No Visual Changes Pulmonary: No Dyspnea, No Cough Cardiovascular: No: Chest Pain, Palpitations Gastrointestinal: Diarrhea; No: Nausea, Vomiting, Abdominal Pain Genitourinary: No Dysuria, No Hematuria Musculoskeletal: No: neck pain Neurological: Weakness; No: Confusion, Seizures All Other Systems Reviewed All Other Systems Reviewed: Yes Objective Exam Vital Signs Vital Signs Date Time Temp Pulse Resp B/P (MAP) Pulse Ox O2 Delivery O2 Flow Rate FiO2 02/17/22 06:00 63 20 166/66 97 Room Air 02/17/22 05:00 59 14 220/90 98 Room Air 02/17/22 03:37 36.7 68 16 191/72 99 Room Air 02/17/22 03:25 37.0 64 16 167/77 98 Room Air 02/17/22 01:00 62 02/17/22 00:00 36.9 64 16 167/77 98 Room Air 02/16/22 20:00 62 124/55 02/16/22 20:00 99 Room Air 02/16/22 19:41 36.4 67 16 111/55 100 Room Air 02/16/22 19:00 63 02/16/22 15:41 37.0 63 20 123/58 100 Room Air 02/16/22 13:58 67 107/49 (68) 66 93/45 (61) 69 90/37 (54) 02/16/22 13:00 67 02/16/22 12:00 61 11 Room Air 02/16/22 11:41 36.9 61 18 108/46 100 Room Air 02/16/22 10:11 37.0 65 19 133/72 100 Room Air 02/16/22 08:00 98 Room Air 02/16/22 07:53 36.9 61 20 127/53 95 Room Air I & O 02/17/22 07:00 Intake Total 2580 ml Balance 2580 ml General Appearance: No Apparent Distress, Thin HEENT: PERRL/EOMI, Pharynx Normal Neck: Full Range of Motion, Normal Inspection, Non Tender, Supple Respiratory: Chest Non Tender, Lungs Clear, Normal Breath Sounds, No Accessory Muscle Use, No Respiratory Distress Cardiovascular: Regular Rate, Rhythm, Normal Peripheral Pulses, Systolic Murmur Gastrointestinal: Normal Bowel Sounds, No Organomegaly, No Pulsatile Mass, Non Tender, Soft Rectal: Deferred Back: Normal Inspection, No Vertebral Tenderness Extremity: Normal Capillary Refill, Normal Inspection, Normal Range of Motion, Non Tender, No Calf Tenderness, No Pedal Edema Neurologic/Psychiatric: Alert, Oriented x3, No Motor/Sensory Deficits, Normal Mood/Affect, 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 cream 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 II-XII Norm as Tested, Facial Droop Skin: Normal Color, Warm/Dry Lymphatic: No Adenopathy Results Lab Laboratory Tests 02/16/22 10:49: Glucometer 226H 02/17/22 05:35: White Blood Count 6.4, Red Blood Count 2.90L, Hemoglobin 9.1L, Hematocrit 27L, Mean Corpuscular Volume 93, Mean Corpuscular Hemoglobin 31, Mean Corpuscular Hemoglobin Concent 34, Red Cell Distribution Width 14.7H, Platelet Count 228, Mean Platelet Volume 9.3, Immature Granulocyte % (Auto) 0, Neutrophils (%) (Auto) 80H, Lymphocytes (%) (Auto) 10L, Monocytes (%) (Auto) 7, Eosinophils (%) (Auto) 3, Basophils (%) (Auto) 1, Neutrophils # (Auto) 5.1, Lymphocytes # (Auto) 0.6L, Monocytes # (Auto) 0.4, Eosinophils # (Auto) 0.2, Basophils # (Auto) 0.0, Immature Granulocyte # (Auto) 0.0, Sodium Level 140, Potassium Level 3.5L, Chloride Level 109H, Carbon Dioxide Level 19L, Anion Gap 12, Blood Urea Nitrogen 28H, Creatinine 0.71, Estimat Glomerular Filtration Rate 82, BUN/Creatinine Ratio 39, Glucose Level 94, Calcium Level 8.0L, Corrected Calcium 8.7, Phosphorus Level 3.2, Magnesium Level 1.8, Total Bilirubin 0.3, Aspartate Amino Transf (AST/SGOT) 22, Alanine Aminotransferase (ALT/SGPT) 10, Alkaline Phosphatase 46, Total Protein 5.4L, Albumin 3.1L Microbiology 02/16/22 C. difficile GDH Antigen & Toxins - Final, Complete Assessment/Plan Assessment/Plan Admission Dx TRANSIENT ISCHEMIC ATTACK HYPERTENSIVE ENCEPHALOPATHY RECENT TAVR RECENT PACEMAKER PLACEMENT HYPERTENSION ADVANCED AGE GENERALIZED WEAKNESS AND FRAILTY GERD DEPRESSION WITH ANXIETY Assessment and Plan TRANSIENT ISCHEMIC ATTACK HYPERTENSIVE ENCEPHALOPATHY RECENT TAVR RECENT PACEMAKER PLACEMENT HYPERTENSION ADVANCED AGE GENERALIZED WEAKNESS AND FRAILTY GERD DEPRESSION WITH ANXIETY Hypokalemia Diarrhea TRANSIENT ISCHEMIC ATTACK WITH HYPERTENSIVE ENCEPHALOPATHY - PLANNING ON MRI TODAY IF POSSIBLE - CALL PLACED FROM [employer] WHO PLACED PACEMAKER - CANNOT DO MRI FOR ANOTHER 5 WEEKS. - RESUME HOME REGIMEN - BP IMPROVED AFTER CARDIZEM DRIP, WITH RAPID DECREASE IN BP'S AND DRIP WAS STOPPED -Fluctuating BP, continue to monitor and adjust medication as needed RECENT TAVR AND RECENT PACEMAKER PLACEMENT - CONTINUE WITH CURRENT REGIMEN - PT ON ELIQUIS ADVANCED AGE WITH GENERALIZED WEAKNESS AND FRAILTY - WILL START THERAPY GERD - RESUME PPI THERAPY DEPRESSION WITH ANXIETY - RESUME SSRI THERAPY. Diarrhea -Stool assay for C. Diff was negative, replace K with IV fluids DVT PROPHYLAXIS WITH SCD AND ELIQUIS GI PROPHYLAXIS WITH PPI Admission Dx TRANSIENT ISCHEMIC ATTACK HYPERTENSIVE ENCEPHALOPATHY RECENT TAVR RECENT PACEMAKER PLACEMENT HYPERTENSION ADVANCED AGE GENERALIZED WEAKNESS AND FRAILTY GERD DEPRESSION WITH ANXIETY Clinical Quality Measures Admission Status Admission Dx TRANSIENT ISCHEMIC ATTACK HYPERTENSIVE ENCEPHALOPATHY RECENT TAVR RECENT PACEMAKER PLACEMENT HYPERTENSION ADVANCED AGE GENERALIZED WEAKNESS AND FRAILTY GERD DEPRESSION WITH ANXIETY Stroke: Date of last known well: February 14, 2022 Time of last known well: 12:00 Supervisory-Addendum Brief Verification & Attestation Participated in pt care: history, MDM, physical Personally performed: exam, history, MDM, supervision of care Care discussed with: Medical Student Procedures: n/a Results interpretation: Verified all documentation TRANSIENT ISCHEMIC ATTACK HYPERTENSIVE ENCEPHALOPATHY RECENT TAVR RECENT PACEMAKER PLACEMENT HYPERTENSION ADVANCED AGE GENERALIZED WEAKNESS AND FRAILTY GERD DEPRESSION WITH ANXIETY DIARRHEA TRANSIENT ISCHEMIC ATTACK WITH HYPERTENSIVE ENCEPHALOPATHY - PLANNING ON MRI TODAY IF POSSIBLE - CALL PLACED FROM [employer] WHO PLACED PACEMAKER - CANNOT DO MRI FOR ANOTHER 5 WEEKS. - ATTEMPTED TO RESUME HOME REGIMEN, HOWEVER WITH HER HYPOTENSIVE EPISODES, CONSULT CALLED TO CARDIOLOGY - (DR. PARH[facility] WORK[employer] FOR DR. STONE). THE PATIE NT WAS TAKEN OFF OF HYDRALAZINE DUE TO HER HYPOTENSION THIS MORNING. RECENT TAVR AND RECENT PACEMAKER PLACEMENT - CONTINUE WITH CURRENT REGIMEN - PT ON ELIQUIS - DOSE DECREASED FROM 5MG BID TO 2.5MG BID ADVANCED AGE WITH GENERALIZED WEAKNESS AND FRAILTY - START PHYSICAL THERAPY GERD - RESUMED PPI THERAPY DEPRESSION WITH ANXIETY - RESUME SSRI THERAPY. DIARRHEA - IV FLUIDS, CHECKED STOOLS, NEGATIVE FOR CDIFF DVT PROPHYLAXIS WITH SCD AND ELIQUIS GI PROPHYLAXIS WITH PPI SAMUEL SANDERS February 17, 2022 07:31 ZEV FARRAR MD February 17, 2022 20:49
[2022-02-17] MEDS: PANTOPRAZOLE 40 MG (PROTONIX) TAB PO SCH (08:15)
[2022-02-17] MEDS: ASPIRIN E.C. 81 MG (ECOTRIN) TAB PO SCH (08:15)
[2022-02-17] MEDS: APIXABAN 5 MG (ELIQUIS) TABLET PO SCH (08:15)
[2022-02-17] MEDS: hydrALAZINE (APRESOLINE) 25 MG TAB PO SCH ×2 (09:34→12:34)
--- NOTE | 2022-02-17 12:29 | Speech Therapy Daily Note ---
Speech Daily Progress Note Subjective Time Seen by Provider: 11:15 Pts was present. Pt was pleasant and cooperative. Objective Pt oriented x4, memory compensatory strategies Speech Short Term Goals Short Term Goals Short Term Goals The patient will demonstrate 90% accuracy with memory and functional problem solving with mild clinician verbal and visual cueing. Speech Long-Term Goals Product Development Worker Goals The patient will demonstrate improve cognitive linguistic skills for safe discharge to the least restricted environment. Speech-Plan Treatment Plan Treatment Duration: Feb 23, 2022 Frequency: Modified Program (IRF) Estimated Hrs Per Day: Other Rehab Potential: LUIS Mendez February 17, 2022 12:29
[2022-02-17] MEDS: dilTIAZem DRIP PRE-MIX 125 ML IV SCH (14:06)
--- NOTE | 2022-02-17 17:54 | Consultation-Cardiology ---
HPI-Cardiology Cardiology Consultation: Date of Consultation 02/17/22 Date of Admission 02/14/22 Attending Physician Anum Bradshaw MD Admitting Physician Admitting Physician: Anum Bradshaw MD Attending Physician: Anum Bradshaw MD Consulting Physician ADRIEL PARHAM JR, MD HPI: Time Seen by a Provider: 17:48 Chief Complaint: REASON FOR CONSULTATION: Hypertension. I had the pleasure of seeing Ashley on the cardiac stepdown unit at [facility] in [place], [place] today. She has an extensive past cardiac history. She normally follows with one of my partners, Dr. Orozco. On the day of admission she developed right-sided facial drooping with garbled speech. Her became concerned and called 911 and she was taken to the hospital for further evaluation. She was felt to have suffered a transient ischemic attack. Over the years, the patient has had difficulty controlling her blood pressure. At times the blood pressure would be very high and other times very low. On several occasions she actually had syncopal spells that was felt to be due to iatrogenic orthostatic hypotension. Since being here in the hospital over the past few days, she has again had labile blood pressures. Because of this, a cardiology consultation was requested. She states that she has been taking hydralazine 3 times daily for many years. She does not recall ever taking an DONIS inhibitor or ARB. She denies chest discomfort, dyspnea, paroxysmal nocturnal dyspnea, or orthopnea. She does get some occasional palpitations with a sensation of a fluttering that she believes is her atrial fi brillation/flutter. She has had some occasional lightheaded spells but no recent syncope. She denies peripheral edema. Certain portions of this document may have been dictated utilizing voice recognition technology. Inherent to this technology, typographical and grammatical errors may exist. As much as I am diligent to identify and correct these mistakes, some errors may remain in the document. Review of Systems-Cardiology Review of Systems Other comments Review of 10 organ systems is as per the history of present illness, otherwise negative. All Other Systems Reviewed Negative Unless Noted: Yes POQ-[id number]-Kqnhtx Hx Patient Social History Marrital Status: Living Status: LIVES AT HOME WITH HER SPOUSE- NATHALIA Employed/Student: retired Smoking Status: Never a Smoker 2nd Hand Smoke Exposure: No Have you traveled recently?: No Alcohol Use?: No Pt feels they are or have been: No Immunizations Up To Date Tetanus Booster (TDap): Unknown Date of Pneumonia Vaccine: Jul 01, 2019 Date of Influenza Vaccine: Jul 01, 2019 Past Medical History PMH As described under Assessment. Family Medical History Family History: Congenital disease G8 BROTHER (? DOWN SYNDROME) Hypertension 19 MOTHER G8 SISTER Kidney disease sister Myocardial infarction 19 FATHER Neoplasm 19 MOTHER (BREAST CANCER) Visual disorder 19 MOTHER (MACULAR DEGENERATION) Allergies and Home Medications Allergies Coded Allergies: bacitracin (Verified Allergy, Mild, RASH, 10/15/19) lidocaine (Verified Allergy, Mild, RASH, 10/15/19) neomycin (Verified Allergy, Mild, RASH, 10/15/19) polymyxin B (Verified Allergy, Mild, RASH, 10/15/19) pramoxine (Verified Allergy, Mild, RASH, 10/15/19) Patient Home Medication List Home Medication List Reviewed: Yes Acetaminophen (Acetaminophen ER) 650 Mg Tablet.er, 650 MG PO HS, (Reported) Entered as Reported by: CRYSTAL NEVES on 04/24/17924 Last Action: Reviewed Acetaminophen (Acetaminophen ER) 650 Mg Tablet.er, 650 MG PO DAILY PRN for PAIN- MILD, (Reported) Entered as Reported by: CRYSTAL NEVES on 04/24/17929 Last Action: Continued Apixaban (Eliquis) 2.5 Mg Tablet, 2.5 MG PO BID, (Reported) Entered as Reported by: AMPARO COCHRAN on 01/04/22 0855 Last Action: Reviewed Calcium Citrate/Vitamin D3 (Calcium Citrate - Vit D3 Tab) 1 Each Tablet, 1 TAB PO DAILY, (Reported) Entered as Reported by: CRYSTAL NEVES on 04/24/17 09 Last Action: Held Doxazosin Mesylate (Doxazosin Mesylate) 4 Mg Tablet, 2 MG PO HS, (Reported) Entered as Reported by: KATIE QUEVEDO on 02/15/22 1024 Last Action: Continued Escitalopram Oxalate (Escitalopram Oxalate) 5 Mg Tablet, 5 MG PO HS, (Reported) Entered as Reported by: MARE MCDERMOTT on 11/07/16 0907 Last Action: Reviewed Esomeprazole Magnesium (Esomeprazole Magnesium) 40 Mg Capsule.dr, 40 MG PO DAILY, (Reported) Entered as Reported by: AMPARO COCHRAN on 01/04/22854 Last Action: Reviewed Famotidine (Famotidine) 40 Mg Tablet, 40 MG PO HS, (Reported) Entered as Reported by: CANDICE JIN on 10/06/15 1243 Last Action: Reviewed Hydralazine HCl (Hydralazine HCl) 25 Mg Tablet, 50 MG PO TID, (Reported) Entered as Reported by: AMPARO COCHRAN on 01/04/22854 Last Action: Continued Melatonin (Melatonin) 10 Mg Tablet, 10 MG PO HS PRN for SLEEP, (Reported) Entered as Reported by: KATIE QUEVEDO on 02/15/22 1024 Last Action: Continued Metoprolol Succinate (Metoprolol Succinate) 25 Mg Tab.er.24h, 25 MG PO BID, (Reported) Entered as Reported by: AMPARO COCHRAN on 01/04/22854 Last Action: Reviewed Multivitamin (Multiple Vitamins) 1 Each Tablet, 1 EACH PO DAILY, (Reported) Entered as Reported by: ALBERTO BROWN on 10/15/19811 Last Action: Reviewed Simvastatin (Simvastatin) 10 Mg Tablet, 10 MG PO HS, (Reported) Entered as Reported by: AMPARO COCHRAN on 01/04/22854 Last Action: Reviewed Vit A/Vit C/Vit E/Zinc/Copper (Preservision Areds Tablet) 1 Each Tablet, 1 EACH PO DAILY, (Reported) Entered as Reported by: ALBERTO BROWN on 10/15/19811 Last Action: Reviewed Discontinued Medications Aspirin (Aspirin EC) 81 Mg Tablet.dr, 81 MG PO DAILY, (Reported) Discontinued Reason: No Longer Taking Entered as Reported by: AMPARO COCHRAN on 01/04/22854 Last Action: Discontinued Calcium Carbonate (Tums) 300 Mg Tab.chew, 300 MG PO PRN PRN for INDIGESTION, (Reported) Discontinued Reason: No Longer Taking Entered as Reported by: CRYSTAL NEVES on 04/24/17 09 Last Action: Discontinued Cholecalciferol (Vitamin D3) (Vitamin D3) 2,000 Unit Tablet, 2,000 UNIT PO DAILY, (Reported) Discontinued Reason: No Longer Taking Entered as Reported by: ALBERTO BROWN on 10/15/19811 Last Action: Discontinued Cyanocobalamin (Vitamin B-12) (Vitamin B12) 2,500 Mcg Tablet, 2,500 MCG PO Q48H, (Reported) Discontinued Reason: No Longer Taking Entered as Reported by: ALBERTO BROWN on 10/15/19 0812 Last Action: Discontinued Docusate Sodium (Docusate Sodium) 100 Mg Capsule, 100 MG PO BID, (Reported) Discontinued Reason: No Longer Taking Entered as Reported by: CRYSTAL NEVES on 04/24/17 0903 Last Action: Discontinued Pyridoxine HCl (Vitamin B-6) 100 Mg Tablet, 100 MG PO BID, (Reported) Discontinued Reason: No Longer Taking Entered as Reported by: CANDICE JIN on 10/06/15 1243 Last Action: Discontinued Exam Vital Signs Vital Signs Date Time Temp Pulse Resp B/P (MAP) Pulse Ox O2 Delivery O2 Flow Rate FiO2 02/17/22 16:00 36.4 60 18 164/76 98 Room Air Physical Exam General: Alert. No acute distress. Well nourished and appears stated age. Eye: Extraocular movements are intact. Conjunctivae are clear. There are no xanthelasma. HENT: Normocephalic. Atraumatic. Carotid pulsations 2/2 without bruits. Neck: Jugular venous pressure does not appear elevated. No thyromegaly appreciated. Respiratory: Lungs are clear to auscultation. Respirations are non-labored. Breath sounds are equal. Symmetrical chest wall expansion. Cardiovascular: Normal rate. Regular rhythm. 1/6 systolic ejection murmur. No gallop. Point of maximal impulse is not appear displaced. Good pulses equal in all extremities. No edema. Gastrointestinal: Soft. Normal bowel sounds. Skin: Skin turgor is normal. There is no pallor. Musculoskeletal: No kyphosis or scoliosis appreciated. Neurologic: Alert and oriented to person, place, time. Cranial nerves 3-12 appear grossly intact. The patient has good motor tone strength in the upper and lower extremities bilaterally. Psychiatric: Cooperative. Appropriate mood & affect. Labs Laboratory Tests Test 02/17/22 05:35 Range/Units White Blood Count 6.4 4.3-11.0 10^3/uL Red Blood Count 2.90 L 3.80-5.11 10^6/uL Hemoglobin 9.1 L 11.5-16.0 g/dL Hematocrit 27 L 35-52 % Mean Corpuscular Volume 93 80-99 fL Mean Corpuscular Hemoglobin 31 25-34 pg Mean Corpuscular Hemoglobin Concent 34 32-36 g/dL Red Cell Distribution Width 14.7 H 10.0-14.5 % Platelet Count 228 130-400 10^3/uL Mean Platelet Volume 9.3 9.0-12.2 fL Immature Granulocyte % (Auto) 0 % Neutrophils (%) (Auto) 80 H 42-75 % Lymphocytes (%) (Auto) 10 L 12-44 % Monocytes (%) (Auto) 7 0-12 % Eosinophils (%) (Auto) 3 0-10 % Basophils (%) (Auto) 1 0-10 % Neutrophils # (Auto) 5.1 1.8-7.8 10^3/uL Lymphocytes # (Auto) 0.6 L 1.0-4.0 10^3/uL Monocytes # (Auto) 0.4 0.0-1.0 10^3/uL Eosinophils # (Auto) 0.2 0.0-0.3 10^3/uL Basophils # (Auto) 0.0 0.0-0.1 10^3/uL Immature Granulocyte # (Auto) 0.0 0.0-0.1 10^3/uL Sodium Level 140 135-145 MMOL/L Potassium Level 3.5 L 3.6-5.0 MMOL/L Chloride Level 109 H 98-107 MMOL/L Carbon Dioxide Level 19 L 21-32 MMOL/L Anion Gap 12 5-14 MMOL/L Blood Urea Nitrogen 28 H 7-18 MG/DL Creatinine 0.71 0.60-1.30 MG/DL Estimat Glomerular Filtration Rate 82 BUN/Creatinine Ratio 39 Glucose Level 94 70-105 MG/DL Calcium Level 8.0 L 8.5-10.1 MG/DL Corrected Calcium 8.7 8.5-10.1 MG/DL Phosphorus Level 3.2 2.3-4.7 MG/DL Magnesium Level 1.8 1.6-2.4 MG/DL Total Bilirubin 0.3 0.1-1.0 MG/DL Aspartate Amino Transf (AST/SGOT) 22 5-34 U/L Alanine Aminotransferase (ALT/SGPT) 10 0-55 U/L Alkaline Phosphatase 46 40-136 U/L Total Protein 5.4 L 6.4-8.2 GM/DL Albumin 3.1 L 3.2-4.5 GM/DL ECG Impression ECG Comment Electrocardiogram from 02/14 shows an atrial sensed and ventricular paced rhythm. Diagnosis/Problems Diagnosis/Problems (1) Primary hypertension Assessment & Plan: She has had labile blood pressures for a number of years. At one point, she tells me her blood pressure had been well controlled on her present regimen. However, during this hospitalization, her blood pressures have again been labile. Given that hydralazine is short acting, this could be adding to some of the lability in her blood pressures. I would suggest changing hydralazine over to a long-acting angiotensin receptor blake and maybe this will help smooth out her blood pressure control. I recommend stopping hydralazine. I will give her losartan 50 mg once this evening instead of the evening dose of hydralazine. I would then change her over to losartan 100 mg each morning starting tomorrow. I suggest continuing the present dose of metoprolol succinate and doxazosin. She will need close follow-up of her renal function once we start losartan. Her GFR is consistent with stage II chronic kidney disease at the present time. I suspect her renal function should be able to tolerate the losartan. 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 She has not required revascularization. She is on aspirin, beta-blake and high-dose statin medication. (3) Aortic stenosis Assessment & Plan: She had a previous LATONYA. She has a barely audible murmur. The aortic stenosis not be contributing to her labile blood pressures. (4) Paroxysmal atrial fibrillation Assessment & Plan: She appears to be in a ventricular paced and atrial sensed rhythm. She did have a recent Micra internal pacemaker placed. She is on apixaban for stroke prophylaxis and beta-blake for rate control. Unclear whether or not this had anything to do with her current neurologic status. Fortunately, her neurologic symptoms seem to have completely resolved since admission. (5) Mixed hyperlipidemia Assessment & Plan: Continue high-dose statin medication. ADRIEL PARHAM JR, MD February 17, 2022 17:54
[2022-02-17] MEDS ORDERED: LOSARTAN 50 MG (COZAAR) TAB PO ONE (18:00)
[2022-02-17] MEDS: ACETAMINOPHEN ER 650 MG (TYLENOL ARTHRITIS) PO SCH (20:30)
[2022-02-17] MEDS: FAMOTIDINE 20 MG (PEPCID) TABLET PO SCH (20:30)
[2022-02-17] MEDS: APIXABAN 2.5 MG (ELIQUIS) TABLET PO SCH (20:30)
[2022-02-17] MEDS ORDERED: doxAzosin 2 MG (CARDURA) TAB PO SCH (21:00)
[2022-02-18] MEDS ORDERED: LOSARTAN 25 MG (COZAAR) TAB PO ONE (01:30)
[2022-02-18 05:54] LABS: BASOPHILS % (AUTO) 1 % (0-10); EOSINOPHILS # (AUTO) 0.2 10^3/uL (0.0-0.3); EOSINOPHILS % (AUTO) 4 % (0-10); HEMATOCRIT 27 % (35-52); HEMOGLOBIN 8.9 g/dL (11.5-16.0); LYMPHOCYTES # (AUTO) 0.6 10^3/uL (1.0-4.0); LYMPHOCYTES % (AUTO) 11 % (12-44); MEAN CORPUSCULAR HEMOGLOBIN 31 pg (25-34); MEAN CORPUSCULAR HGB CONC 33 g/dL (32-36); MEAN CORPUSCULAR VOLUME 94 fL (80-99); MEAN PLATELET VOLUME 9.5 fL (9.0-12.2); MONOCYTES # (AUTO) 0.4 10^3/uL (0.0-1.0); MONOCYTES % (AUTO) 7 % (0-12); NEUTROPHILS # (AUTO) 4.2 10^3/uL (1.8-7.8); NEUTROPHILS % (AUTO) 77 % (42-75); PLATELET COUNT 213 10^3/uL (130-400); WHITE BLOOD COUNT 5.5 10^3/uL (4.3-11.0)
[2022-02-18 06:07] LABS: ALBUMIN 2.9 GM/DL (3.2-4.5); POTASSIUM 3.9 MMOL/L (3.6-5.0)
[2022-02-18 06:08] LABS: CALCIUM 7.9 MG/DL (8.5-10.1)
[2022-02-18 06:09] LABS: TOTAL PROTEIN 5.2 GM/DL (6.4-8.2)
[2022-02-18 06:11] LABS: BILIRUBIN,TOTAL 0.3 MG/DL (0.1-1.0)
[2022-02-18 06:13] LABS: CREATININE SERUM 0.64 MG/DL (0.60-1.30); PHOSPHORUS 2.8 MG/DL (2.3-4.7)
[2022-02-18 06:16] LABS: MAGNESIUM 1.8 MG/DL (1.6-2.4)
[2022-02-18] MEDS ORDERED: DIPHENOXYLATE/ATROPINE 2.5MG/0.025MG (LOMOTIL) TAB PO ONE ×2 (07:45→12:30)
[2022-02-18] MEDS: APIXABAN 2.5 MG (ELIQUIS) TABLET PO SCH (08:16)
[2022-02-18] MEDS: ASPIRIN E.C. 81 MG (ECOTRIN) TAB PO SCH (08:16)
[2022-02-18] MEDS: PANTOPRAZOLE 40 MG (PROTONIX) TAB PO SCH (08:16)
[2022-02-18] MEDS ORDERED: LOSARTAN 100 MG (COZAAR) TABLET PO SCH (09:00)
[2022-02-18] MEDS ORDERED: LOSA100T57 PO (09:02)
--- NOTE | 2022-02-18 09:05 | Cardiology Progress Note ---
Progress Note-Cardiology Events since last exam Date Seen by Provider: February 18, 2022 Time Seen by Provider: 09:02 Events since last exam I am following her due to hypertension. She also had a LATONYA and Micra pacemaker placed at [facility] about 2 weeks ago. She normally follows with one of my partners, Dr. Orozco. She was sitting up in a chair eating breakfast. She would like to go home today. She denies chest discomfort, dyspnea, palpitations, syncope, or ankle edema. Certain portions of this document may have been dictated utilizing voice recognition technology. Inherent to this technology, typographical and grammatical errors may exist. As much as I am diligent to identify and correct these mistakes, some errors may remain in the document. Vitals Last set of Vitals Signs Vital Signs 02/18/22 02/18/22 12:00 12:57 Temp 36.3 Pulse 59 Resp 19 B/P (MAP) 132/92 Pulse Ox 99 O2 Delivery Room Air Labs Labs Laboratory Tests 02/18/22 05:15 Exam Vital Signs Vital Signs Date Time Temp Pulse Resp B/P (MAP) Pulse Ox O2 Delivery O2 Flow Rate FiO2 02/18/22 12:57 59 02/18/22 12:00 36.3 19 132/92 99 Room Air Physical Exam General: Alert. No acute distress. Eye: No xanthelasma. HENT: Normocephalic. Neck: Jugular venous pressure does not appear elevated. Respiratory: Lungs are clear to auscultation. Respirations are non-labored. Breath sounds are equal. Symmetrical chest wall expansion. Cardiovascular: Normal rate. Regular rhythm. 1/6 systolic ejection murmur. No gallop. No edema. Gastrointestinal: Soft. Normal bowel sounds. Skin: Warm. Dry. Neurologic: Alert and oriented to person, place, time. Cranial nerves 3-11 grossly intact. Psychiatric: Cooperative. Appropriate mood & affect. Labs Laboratory Tests Test 02/18/22 05:15 Range/Units White Blood Count 5.5 4.3-11.0 10^3/uL Red Blood Count 2.90 L 3.80-5.11 10^6/uL Hemoglobin 8.9 L 11.5-16.0 g/dL Hematocrit 27 L 35-52 % Mean Corpuscular Volume 94 80-99 fL Mean Corpuscular Hemoglobin 31 25-34 pg Mean Corpuscular Hemoglobin Concent 33 32-36 g/dL Red Cell Distribution Width 14.8 H 10.0-14.5 % Platelet Count 213 130-400 10^3/uL Mean Platelet Volume 9.5 9.0-12.2 fL Immature Granulocyte % (Auto) 0 % Neutrophils (%) (Auto) 77 H 42-75 % Lymphocytes (%) (Auto) 11 L 12-44 % Monocytes (%) (Auto) 7 0-12 % Eosinophils (%) (Auto) 4 0-10 % Basophils (%) (Auto) 1 0-10 % Neutrophils # (Auto) 4.2 1.8-7.8 10^3/uL Lymphocytes # (Auto) 0.6 L 1.0-4.0 10^3/uL Monocytes # (Auto) 0.4 0.0-1.0 10^3/uL Eosinophils # (Auto) 0.2 0.0-0.3 10^3/uL Basophils # (Auto) 0.0 0.0-0.1 10^3/uL Immature Granulocyte # (Auto) 0.0 0.0-0.1 10^3/uL Sodium Level 139 135-145 MMOL/L Potassium Level 3.9 3.6-5.0 MMOL/L Chloride Level 110 H 98-107 MMOL/L Carbon Dioxide Level 20 L 21-32 MMOL/L Anion Gap 9 5-14 MMOL/L Blood Urea Nitrogen 20 H 7-18 MG/DL Creatinine 0.64 0.60-1.30 MG/DL Estimat Glomerular Filtration Rate 85 BUN/Creatinine Ratio 31 Glucose Level 93 70-105 MG/DL Calcium Level 7.9 L 8.5-10.1 MG/DL Corrected Calcium 8.8 8.5-10.1 MG/DL Phosphorus Level 2.8 2.3-4.7 MG/DL Magnesium Level 1.8 1.6-2.4 MG/DL Total Bilirubin 0.3 0.1-1.0 MG/DL Aspartate Amino Transf (AST/SGOT) 21 5-34 U/L Alanine Aminotransferase (ALT/SGPT) 10 0-55 U/L Alkaline Phosphatase 49 40-136 U/L Total Protein 5.2 L 6.4-8.2 GM/DL Albumin 2.9 L 3.2-4.5 GM/DL Diagnosis/Problems Diagnosis/Problems (1) Primary hypertension Assessment & Plan: She has had labile blood pressures for a number of years. At one point, she tells me her blood pressure had been well controlled on the regimen she was taking prior to admission. However, during this hospitalization, her blood pressures have again been labile. I stopped her hydralazine and started her on full-strength losartan. I suggest continuing the present dose of metoprolol succinate and doxazosin. She will need close follow- up of her renal function once we start losartan. Her GFR is consistent with stage II chronic kidney disease at the present time. I suspect her renal function should be able to tolerate the losartan. This morning her creatinine was essentially unchanged. From a cardiac standpoint, the patient can be discharged home with close follow-up with her primary provider. She already had a pre-existing appointment with Dr. Orozco on March 09. 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 She has not required revascularization. She is on aspirin, beta-blake and high-dose statin medication. (3) Aortic stenosis Assessment & Plan: She had a recent LATONYA. She has a barely audible murmur. The aortic stenosis not be contributing to her labile blood pressures. (4) Paroxysmal atrial fibrillation Assessment & Plan: She appears to be in a ventricular paced and atrial sensed rhythm. She did have a recent Micra internal pacemaker placed. She is on apixaban for stroke prophylaxis and beta-blake for rate control. Unclear whether or not this had anything to do with her current neurologic status. Fortunately, her neurologic symptoms seem to have completely resolved since admission. (5) Mixed hyperlipidemia Assessment & Plan: Continue high-dose statin medication. ADRIEL PARHAM JR, MD February 18, 2022 09:05
[2022-02-18] MEDS: NS IV 1000 ML 1,000 ML IV SCH (11:14)
--- NOTE | 2022-02-18 12:01 | Discharge Summary ---
Diagnosis/Chief Complaint Date of Admission February 14, 2022 at 14:25 Date of Discharge Discharge Date: February 18, 2022 Discharge Time: 13:00 Admission Diagnosis Admission Diagnosis TRANSIENT ISCHEMIC ATTACK HYPERTENSIVE ENCEPHALOPATHY RECENT TAVR RECENT PACEMAKER PLACEMENT HYPERTENSION ADVANCED AGE GENERALIZED WEAKNESS AND FRAILTY GERD DEPRESSION WITH ANXIETY DIARRHEA Discharge Diagnosis TRANSIENT ISCHEMIC ATTACK HYPERTENSIVE ENCEPHALOPATHY RECENT TAVR RECENT PACEMAKER PLACEMENT HYPERTENSION ADVANCED AGE GENERALIZED WEAKNESS AND FRAILTY GERD DEPRESSION WITH ANXIETY DIARRHEA Reason Hospital Visit PT IS AN 86 Y/O FEMALE WHO IS KNOWN TO ME FROM CLINIC. SHE PRESENTED TO THE HOSPITAL WITH CONCERN FOR STROKE-LIKE SYMPTOMS. PT'S SON STATES THAT HE WAS TALKING TO HER ON THE PHONE AND SHE WAS NOT MAKING ANY SENSE, HER CAREGIVER AND ALSO NOTICED THE SYMPTOMS AND THEY HAD HER TRANSPORTED TO THE HOSPITAL VIA EMS. IN THE ER, SHE WAS SHOWING STROKE-LIKE SYMPTOMS, HAD CT IMAGING WHICH DID NOT REVEAL A STROKE, BUT DUE TO HER RECENT TAVR AND PACEMAKER PLACEMENT, SHE WAS ADMITTED TO THE HOSPITAL FOR CLOSE MONITORING AND FURTHER WORK-UP. Discharge Summary Consultations CARDIOLOGY NEUROLOGY (BY ER ON PHONE) EICU Discharge Physical Examination Allergies: Coded Allergies: bacitracin (Verified Allergy, Mild, RASH, 10/15/19) lidocaine (Verified Allergy, Mild, RASH, 10/15/19) neomycin (Verified Allergy, Mild, RASH, 10/15/19) polymyxin B (Verified Allergy, Mild, RASH, 10/15/19) pramoxine (Verified Allergy, Mild, RASH, 10/15/19) Vitals & I&Os Vital Signs Date Time Temp Pulse Resp B/P (MAP) Pulse Ox O2 Delivery O2 Flow Rate FiO2 02/18/22 08:00 98 Room Air 02/18/22 07:37 36.7 61 15 183/84 General Appearance: Alert, Oriented X3, Cooperative HEENT: Atraumatic, PERRLA, Mucous Memb Moist/[place] Respiratory: Clear to Auscultation, Normal Air Movement Cardiovascular: Regular Rate Abdominal: Normal Bowel Sounds, Soft Extremities: No Cyanosis Skin: No Breakdown Neuro: Normal Speech, Cranial Nerves 3-12 NL Psych/Mental Status: Mental Status NL, Mood NL Hospital Course Was the Problem List Reviewed?: Yes TRANSIENT ISCHEMIC ATTACK HYPERTENSIVE ENCEPHALOPATHY RECENT TAVR RECENT PACEMAKER PLACEMENT HYPERTENSION ADVANCED AGE GENERALIZED WEAKNESS AND FRAILTY GERD DEPRESSION WITH ANXIETY DIARRHEA TRANSIENT ISCHEMIC ATTACK WITH HYPERTENSIVE ENCEPHALOPATHY - PLANNING ON MRI ON DAY AFTER DISCHARGE, HOWEVER, CALL PLACED FROM E BUSINESS SPECIALIST WHO PLACED PACEMAKER - CANNOT DO MRI FOR ANOTHER 5 WEEKS. - ATTEMPTED TO RESUME HOME REGIMEN, HOWEVER WITH HER HYPOTENSIVE EPISODES, CONSULT CALLED TO CARDIOLOGY - (DR. PARHAM CUSTOMER CARE SPECIALIST FOR DR. STONE). THE PATIENT WAS TAKEN OFF OF HYDRALAZINE DUE TO HER HYPOTENSION AND PLACED ON LOSARTAN AT 100MG ON DISCHARGE, WILL MONITOR PRESSURES CLOSELY AN OUTPATIENT. RECENT TAVR AND RECENT PACEMAKER PLACEMENT - CONTINUE WITH CURRENT REGIMEN - PT ON ELIQUIS - DOSE DECREASED FROM 5MG BID TO 2.5MG BID ADVANCED AGE WITH GENERALIZED WEAKNESS AND FRAILTY - STARTED PHYSICAL THERAPY, WILL CONTINUE WITH HOME HEALTH THERAPY GERD - RESUMED PPI THERAPY DEPRESSION WITH ANXIETY - RESUMED SSRI THERAPY. DIARRHEA - CHECKED STOOLS, NEGATIVE FOR CDIFF - DOSE OF LOMOTIL TO BE GIVEN DVT PROPHYLAXIS WITH SCD AND ELIQUIS GI PROPHYLAXIS WITH PPI PT'S FAMILY NOT ON HER RELEASE OF INFORMATION, NOT IN ROOM THIS MORNING, PREVIOUSLY DISCUSSED WITH FAMILY, OUR PLAN WAS FOR DC TODAY - WILL INITIATE HOME HEALTH FOR STRENGTHENING FOR A FEW WEEKS UPON DC TO HOME. Pending Labs Laboratory Tests 02/18/22 05:15: White Blood Count 5.5, Red Blood Count 2.90, Hemoglobin 8.9, Hematocrit 27, Mean Corpuscular Volume 94, Mean Corpuscular Hemoglobin 31, Mean Corpuscular Hemoglobin Concent 33, Red Cell Distribution Width 14.8, Platelet Count 213, Mean Platelet Volume 9.5, Immature Granulocyte % (Auto) 0, Neutrophils (%) (Auto) 77, Lymphocytes (%) (Auto) 11, Monocytes (%) (Auto) 7, Eosinophils (%) (Auto) 4, Basophils (%) (Auto) 1, Neutrophils # (Auto) 4.2, Lymphocytes # (Auto) 0.6, Monocytes # (Auto) 0.4, Eosinophils # (Auto) 0.2, Basophils # (Auto) 0.0, Immature Granulocyte # (Auto) 0.0, Sodium Level 139, Potassium Level 3.9, Chloride Level 110, Carbon Dioxide Level 20, Anion Gap 9, Blood Urea Nitrogen 20, Creatinine 0.64, Estimat Glomerular Filtration Rate 85, BUN/Creatinine Ratio 31, Glucose Level 93, Calcium Level 7.9, Corrected Calcium 8.8, Phosphorus Level 2.8, Magnesium Level 1.8, Total Bilirubin 0.3, Aspartate Amino Transf (AST/SGOT) 21, Alanine Aminotransferase (ALT/SGPT) 10, Alkaline Phosphatase 49, Total Protein 5.2, Albumin 2.9 Discharge Condition at discharge IMPROVED Instructions to patient/family Please see electronic discharge instructions given to patient. Discharge Medications Reviewed and agree with Discharge Medication list on patient's Discharge Instruction sheet Clinical Quality Measures Stroke: Date of last known well: February 14, 2022 Time of last known well: 12:00 ZEV FARRAR MD February 18, 2022 12:01
--- NOTE | 2022-02-18 12:08 | D/C HH Face to Face Order ---
D/C Face to Face Orders Reconcile Patient Problems Problems Reviewed?: Yes Instructions for Patient Via [employer], Patient Instructions/FollowUp: [facility] [address] STONE KEEP APPT FOR FOLLOW UP WITH YOUR SURGEON FOR VALVE AND PACEMAKER Physician to follow Patient: LENI Discharge Diet for Home: Regular Diet Patient Problems: TRANSIENT ISCHEMIC ATTACK HYPERTENSIVE ENCEPHALOPATHY RECENT TAVR RECENT PACEMAKER PLACEMENT HYPERTENSION ADVANCED AGE GENERALIZED WEAKNESS AND FRAILTY GERD DEPRESSION WITH ANXIETY DIARRHEA Goals for Patient: INCREASED STRENGTH, CONTROLLED BLOOD PRESSURE Patient Data-Allergies,Ht & Wt Patient Allergies: Coded Allergies: bacitracin (Verified Allergy, Mild, RASH, 10/15/19) lidocaine (Verified Allergy, Mild, RASH, 10/15/19) neomycin (Verified Allergy, Mild, RASH, 10/15/19) polymyxin B (Verified Allergy, Mild, RASH, 10/15/19) pramoxine (Verified Allergy, Mild, RASH, 10/15/19) Height (Feet): 5 Height (Inches): 3.00 Weight (Pounds): 82 Weight (Ounces): 6.4 Home Health Need/Face to Face Date of Face to Face: February 18, 2022 Clinical Findings: Generalized weakness and fatigue, Muscle weakness, Other- list in note (BLOOD PRESSURE AND HEART RATE MONITORING) I have seen Pt [id number]: Yes Discharged To: Home Diagnosis/Conditions: TRANSIENT ISCHEMIC ATTACK HYPERTENSIVE ENCEPHALOPATHY RECENT TAVR RECENT PACEMAKER PLACEMENT HYPERTENSION ADVANCED AGE GENERALIZED WEAKNESS AND FRAILTY GERD DEPRESSION WITH ANXIETY DIARRHEA Patient is Homebound due to: Muscle weakness Homebound Status Due to the above stated illness, injury or surgical procedure (medical condition or diagnosis) and associated clinical findings, the patient is homebound because of his/her inability to leave home except with aid of a supportive device and/or person AND leaving the home requires a considerable and taxing effort or is medically contraindicated. Pt req the following assistanc: [facility] Nursing Orders Home Health Services Order: Nursing Services, Physical Therapy-Evaluate & Treat CBC AND CMP ON 02/23/22 Home Health Infusion Therapy Line Start Date: February 14, 2022 Therapy Orders Therapy Orders: PT to assess for OT Therapy Specific Orders: Teach enviro modifications/safety, Increase strength/endurance Certify Stmt I certify that this patient is under my care and that I, a nurse practitioner or a physician; a assistant front end manager working with me, had a face to face encounter that - meets the physician face to face encounter requirements with this patient as dated. Medication List: Active Scripts Active Losartan Potassium 100 Mg Tablet 100 Mg PO DAILY Reported Doxazosin Mesylate 4 Mg Tablet 2 Mg PO HS TAKES OF A 4MG TAB Melatonin 10 Mg Tablet 10 Mg PO HS PRN Esomeprazole Magnesium 40 Mg Capsule.dr 40 Mg PO DAILY Eliquis (Apixaban) 2.5 Mg Tablet 2.5 Mg PO BID Metoprolol Succinate 25 Mg Tab.er.24h 25 Mg PO BID Simvastatin 10 Mg Tablet 10 Mg PO HS Multiple Vitamins (Multivitamin) 1 Each Tablet 1 Each PO DAILY Preservision Areds Tablet (Vit A/Vit C/Vit E/Zinc/Copper) 1 Each Tablet 1 Each PO DAILY Acetaminophen ER (Acetaminophen) 650 Mg Tablet.er 650 Mg PO DAILY PRN Acetaminophen ER (Acetaminophen) 650 Mg Tablet.er 650 Mg PO HS Calcium Citrate - Vit D3 Tab (Calcium Citrate/Vitamin D3) 1 Each Tablet 1 Tab PO DAILY Escitalopram Oxalate 5 Mg Tablet 5 Mg PO HS Famotidine 40 Mg Tablet 40 Mg PO HS Lab results: Laboratory Tests Test 02/18/22 05:15 Range/Units White Blood Count 5.5 4.3-11.0 10^3/uL Red Blood Count 2.90 L 3.80-5.11 10^6/uL Hemoglobin 8.9 L 11.5-16.0 g/dL Hematocrit 27 L 35-52 % Mean Corpuscular Volume 94 80-99 fL Mean Corpuscular Hemoglobin 31 25-34 pg Mean Corpuscular Hemoglobin Concent 33 32-36 g/dL Red Cell Distribution Width 14.8 H 10.0-14.5 % Platelet Count 213 130-400 10^3/uL Mean Platelet Volume 9.5 9.0-12.2 fL Immature Granulocyte % (Auto) 0 % Neutrophils (%) (Auto) 77 H 42-75 % Lymphocytes (%) (Auto) 11 L 12-44 % Monocytes (%) (Auto) 7 0-12 % Eosinophils (%) (Auto) 4 0-10 % Basophils (%) (Auto) 1 0-10 % Neutrophils # (Auto) 4.2 1.8-7.8 10^3/uL Lymphocytes # (Auto) 0.6 L 1.0-4.0 10^3/uL Monocytes # (Auto) 0.4 0.0-1.0 10^3/uL Eosinophils # (Auto) 0.2 0.0-0.3 10^3/uL Basophils # (Auto) 0.0 0.0-0.1 10^3/uL Immature Granulocyte # (Auto) 0.0 0.0-0.1 10^3/uL Sodium Level 139 135-145 MMOL/L Potassium Level 3.9 3.6-5.0 MMOL/L Chloride Level 110 H 98-107 MMOL/L Carbon Dioxide Level 20 L 21-32 MMOL/L Anion Gap 9 5-14 MMOL/L Blood Urea Nitrogen 20 H 7-18 MG/DL Creatinine 0.64 0.60-1.30 MG/DL Estimat Glomerular Filtration Rate 85 BUN/Creatinine Ratio 31 Glucose Level 93 70-105 MG/DL Calcium Level 7.9 L 8.5-10.1 MG/DL Corrected Calcium 8.8 8.5-10.1 MG/DL Phosphorus Level 2.8 2.3-4.7 MG/DL Magnesium Level 1.8 1.6-2.4 MG/DL Total Bilirubin 0.3 0.1-1.0 MG/DL Aspartate Amino Transf (AST/SGOT) 21 5-34 U/L Alanine Aminotransferase (ALT/SGPT) 10 0-55 U/L Alkaline Phosphatase 49 40-136 U/L Total Protein 5.2 L 6.4-8.2 GM/DL Albumin 2.9 L 3.2-4.5 GM/DL My orders: Orders - ZEV FARRAR MD Patient Visit (02/17/22 ) Treat. Speech/Lang/Voice (02/17/22 ) Cbc With Automated Diff (02/18/22 05:00) Comprehensive Metabolic Panel (02/18/22 05:00) Magnesium (02/18/22 05:00) Phosphorus (02/18/22 05:00) Diphenoxylate/Atropine Tablet (Lomotil T (02/18/22 07:45) Attending Discharge Inpt/Inobs (02/18/22 12:02) ZEV FARRAR MD February 18, 2022 12:08
== END 2022-02-18 13:55 | disposition home or self-care (01) | DRG 69 ==
LOC: EDUNIT# 12:53 → ER 12:54 → OBSVTOIN 14:25 → ICU 14:25 → CSD 02-15 15:50
PROVIDERS: ADMIT Family Medicine; ATTEND Family Medicine
DX: G45.9 Transient cerebral ischemic attack, unspecified (principal); I67.4 Hypertensive encephalopathy; E87.1 Hypo-osmolality and hyponatremia; Z95.2 Presence of prosthetic heart valve; Z95.0 Presence of cardiac pacemaker; I10 Essential (primary) hypertension; R53.1 Weakness; K21.9 Gastro-esophageal reflux disease without esophagitis; F32.A Depression, unspecified; F41.9 Anxiety disorder, unspecified; R19.7 Diarrhea, unspecified; Z79.82 Long term (current) use of aspirin; Z79.899 Other long term (current) drug therapy; E78.00 Pure hypercholesterolemia, unspecified; H35.30 Unspecified macular degeneration; M81.0 Age-related osteoporosis without current pathological fracture; M19.90 Unspecified osteoarthritis, unspecified site; F03.90 Unspecified dementia, unspecified severity, without behavioral disturbance, psychotic disturbance, mood disturbance, and anxiety; I48.0 Paroxysmal atrial fibrillation; E78.2 Mixed hyperlipidemia; I25.10 Atherosclerotic heart disease of native coronary artery without angina pectoris; I35.0 Nonrheumatic aortic (valve) stenosis
CPT/HCPCS: 36415; 70450; 71045; 80053; 80061; 81000; 82947; 83735; 83880; 84100; 84484; 85025; 85027; 85379; 85610; 85730; 86141; 87324; 87449; 93005; 93041; 93880; G0378

== ENCOUNTER → 2022-02-25 | Outpatient (CLI) | payer MEDICARE, OTHER ==
[~2022-02-25] MED LIST changes: +DOXA4TAB2 PO; +LOSA100T57 PO; +MELA10TA2 PO
== END ==
LOC: CARD 14:00
PROVIDERS: ATTEND Nurse Practitioner
DX: I51.7 Cardiomegaly (principal); I34.0 Nonrheumatic mitral (valve) insufficiency; Z95.2 Presence of prosthetic heart valve
CPT/HCPCS: 93306

== ENCOUNTER 2022-02-27 08:50 | Emergency (ER) | payer MEDICARE, OTHER ==
[~2022-02-27] VITALS: Ht 152 cm; Wt 39.0 kg
--- NOTE | 2022-02-27 09:41 | ED Neurological Problem ---
General Chief Complaint: Altered Mental Status Stated Complaint: CONFUSION Nursing Triage Note: pt to rm 5 by cr co ems with cc of confusion, last known well time was last night. unable to tell her birthday or where she is at triage. heart valve replaced a few weeks ago. states she had the same thing a couple weeks ago with confusion and slurred speech. Source: patient, family () Exam Limitations: clinical condition History of Present Illness Date Seen by Provider: Feb 27, 2022 Time Seen by Provider: 09:20 Initial Comments Patient is an 86-year-old female who presents to the emergency department today with her chief complaint increasing confusion, disorientation, problems with speech and coordination. She has a history of approximately 1 month ago being sent to [place] and having a valve replacement as well as a "micro pacemaker" placed in her chest. Her states she has had several episodes since that time of this confusion and disorientation. He states her speech is a little slurred. She got up this morning at about 8:00, he got up shortly after her, as she was trying to make herself some breakfast but could not find the cereal. She attempted to make herself a cup of coffee but could not figure out how to work the machine. Over the course of several minutes she suddenly became "catatonic" and she could not or would not speak to him. He states that since that time her speech is more slurred and she does not seem to be able to communicate very well. She has a history of hypertension and has had crazy high blood pressure spikes up to the 200 range. She has not been ill recently with fevers, chills, cough, vomiting or diarrhea. He states that she is very compliant with her medications. On arrival into the room, she is able to answer yes and no questions it seems appropriately.. She is able to identify her . When I asked her to perform certain activities she is mostly understanding these but when I asked her to stick out her tongue she could not do that. When I asked her to shrug her shoulders she could not do that. When I asked her to say [place] she could repeat it when I asked her to say "no ifs, ands or buts" it came out a garbled mass asking her complex questions seems to be a lot more difficult. All other review of systems reviewed with the and negative except as stated. Timing/Duration: 1-3 hours Severity: moderate Allergies and Home Medications Allergies Coded Allergies: bacitracin (Verified Allergy, Mild, RASH, 10/15/19) lidocaine (Verified Allergy, Mild, RASH, 10/15/19) neomycin (Verified Allergy, Mild, RASH, 10/15/19) polymyxin B (Verified Allergy, Mild, RASH, 10/15/19) pramoxine (Verified Allergy, Mild, RASH, 10/15/19) Patient Home Medication List Home Medication List Reviewed: Yes Acetaminophen (Acetaminophen ER) 650 Mg Tablet.er, 650 MG PO HS, (Reported) Entered as Reported by: CRYSTAL NEVES on 04/24/17 0925 Acetaminophen (Acetaminophen ER) 650 Mg Tablet.er, 650 MG PO DAILY PRN for PAIN- MILD, (Reported) Entered as Reported by: CRYSTAL NEVES on 04/24/17 0930 Apixaban (Eliquis) 2.5 Mg Tablet, 2.5 MG PO BID, (Reported) Entered as Reported by: AMPARO COCHRAN on 01/04/22 0855 Calcium Citrate/Vitamin D3 (Calcium Citrate - Vit D3 Tab) 1 Each Tablet, 1 TAB PO DAILY, (Reported) Entered as Reported by: CRYSTAL NEVES on 04/24/17 0903 Doxazosin Mesylate (Doxazosin Mesylate) 4 Mg Tablet, 2 MG PO HS, (Reported) Entered as Reported by: KATIE QUEVEDO on 02/15/22 1024 Escitalopram Oxalate (Escitalopram Oxalate) 5 Mg Tablet, 5 MG PO HS, (Reported) Entered as Reported by: MARE MCDERMOTT on 11/07/16 0907 Esomeprazole Magnesium (Esomeprazole Magnesium) 40 Mg Capsule.dr, 40 MG PO DAILY, (Reported) Entered as Reported by: AMPARO COCHRAN on 01/04/22 0855 Famotidine (Famotidine) 40 Mg Tablet, 40 MG PO HS, (Reported) Entered as Reported by: CANDICE JIN on 10/06/15 1243 Losartan Potassium (Losartan Potassium) 100 Mg Tablet, 100 MG PO DAILY Prescribed by: ADRIEL PARHAM JR, MD on 02/18/22 0902 Melatonin (Melatonin) 10 Mg Tablet, 10 MG PO HS PRN for SLEEP, (Reported) Entered as Reported by: KATIE QUEVEDO on 02/15/22 1024 Metoprolol Succinate (Metoprolol Succinate) 25 Mg Tab.er.24h, 25 MG PO BID, (Reported) Entered as Reported by: AMPARO COHCRAN on 01/04/22 0855 Multivitamin (Multiple Vitamins) 1 Each Tablet, 1 EACH PO DAILY, (Reported) Entered as Reported by: ALBERTO BROWN on 10/15/19 0812 Simvastatin (Simvastatin) 10 Mg Tablet, 10 MG PO HS, (Reported) Entered as Reported by: AMPARO COCHRAN on 01/04/22 0855 Vit A/Vit C/Vit E/Zinc/Copper (Preservision Areds Tablet) 1 Each Tablet, 1 EACH PO DAILY, (Reported) Entered as Reported by: ALBERTO BROWN on 10/15/19 0812 Review of Systems Review of Systems Constitutional: see HPI Ears, Nose, Mouth, Throat: no symptoms reported Respiratory: no symptoms reported Gastrointestinal: no symptoms reported Genitourinary: no symptoms reported Musculoskeletal: no symptoms reported Skin: no symptoms reported Psychiatric/Neurological: No Symptoms Reported Review of systems obtained from her , negative except as stated in the HP I. 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: [employer] Seasonal Allergies Seasonal Allergies: Yes Past Medical History Surgery/Hospitalization HX: PMH: HTN, PACEMAKER, VALVE REPLACEMENT Surgeries: Yes (RSO, BREAST BX, CATARACTS, BOWEL RESCTION, FX HIP) Breast, Cardiac, Hysterectomy, Orthopedic, Valve Replacement Respiratory: No (ASTHMA CHILD) Currently Using CPAP: No Currently Using BIPAP: No Cardiac: Yes Heart Murmur, High Cholesterol, Hypertension Neurological: No 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: No Female 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: Denies 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 DOWN SYNDROME) Hypertension 19 MOTHER G8 SISTER Kidney disease sister Myocardial infarction 19 FATHER Neoplasm 19 MOTHER (BREAST CANCER) Visual disorder 19 MOTHER (MACULAR DEGENERATION) Heart Disease, Cancer, Hypertension, Renal Disease, Other Conditions/Hx Physical Exam Vital Signs Vital Signs - First Documented 02/27/22 08:55 Temp 36.6 Pulse 56 Resp 16 B/P (MAP) 183/95 (124) Pulse Ox 100 O2 Delivery Room Air Capillary Refill : Less Than 3 Seconds Height, Weight, BMI Height: 5'3.00" Weight: 82lbs. 6.4oz. [id number]; 16.00 BMI Method:Stated General Appearance: WD/WN, no apparent distress, thin HEENT: PERRL/EOMI, pharynx normal, other Neck: normal inspection Respiratory: lungs clear, normal breath sounds, no respiratory distress, no accessory muscle use Cardiovascular: regular rate, rhythm, other (No pacemaker palpated along the chest wall) Gastrointestinal: normal bowel sounds, non tender, soft Extremities: normal range of motion, non-tender, normal inspection, no pedal edema Neurologic/Psychiatric: alert, normal mood/affect, oriented x 3 (Patient is oriented to herself, to her and is able to tell me that she is at the hospital.) Crainal Nerves: normal hearing, PERRL, abnormal speech Motor/Sensory: no motor deficit, no sensory deficit Skin: normal color, warm/dry Stroke NIH Stroke Scale Assessment Gaze: Normal (0), Total: Stroke Thrombolytic Exclusion Age 18 or Over: Yes Acute intenal hemorrhage: No History of CVA: No Uncontrolled Coagulation Defec: No Intracranial Hemorrhage: No Severe Hypertension: No GI or Bleed: No Subarachnoid Hemorrhage: No Intracranial Neoplasm/Aneurysm: No Oral Anticoagulants: Yes Surgery or Trauma: No Puncture of Non-Compressible V: No Recent CPR: No Diabetic Hemorrhagic Retinopat: No Organ Biopsy: No Recent Obstetric Delivery: No Glucose: No Significant Hepatic Dysfunctio: No NIH Stoke Scale >22: No Bacterial Endocarditis: No Pericarditis: No Improving Symptoms: No Platelets: No Progress/Results/Core Measures Results/Orders Lab Results Laboratory Tests Test 02/27/22 08:55 02/27/22 09:39 02/27/22 12:57 Range/Units White Blood Count 4.4 4.3-11.0 10^3/uL Red Blood Count 3.71 L 3.80-5.11 10^6/uL Hemoglobin 11.3 L 11.5-16.0 g/dL Hematocrit 34 L 35-52 % Mean Corpuscular Volume 91 80-99 fL Mean Corpuscular Hemoglobin 31 25-34 pg Mean Corpuscular Hemoglobin Concent 33 32-36 g/dL Red Cell Distribution Width 13.8 10.0-14.5 % Platelet Count 232 130-400 10^3/uL Mean Platelet Volume 10.3 9.0-12.2 fL Immature Granulocyte % (Auto) 1 % Neutrophils (%) (Auto) 66 42-75 % Lymphocytes (%) (Auto) 20 12-44 % Monocytes (%) (Auto) 9 0-12 % Eosinophils (%) (Auto) 4 0-10 % Basophils (%) (Auto) 1 0-10 % Neutrophils # (Auto) 2.9 1.8-7.8 10^3/uL Lymphocytes # (Auto) 0.9 L 1.0-4.0 10^3/uL Monocytes # (Auto) 0.4 0.0-1.0 10^3/uL Eosinophils # (Auto) 0.2 0.0-0.3 10^3/uL Basophils # (Auto) 0.0 0.0-0.1 10^3/uL Immature Granulocyte # (Auto) 0.0 0.0-0.1 10^3/uL Prothrombin Time 14.1 12.2-14.7 SEC INR Comment 1.0 0.8-1.4 Activated Partial Thromboplast Time 37 H 24-35 SEC Sodium Level 139 135-145 MMOL/L Potassium Level 3.9 3.6-5.0 MMOL/L Chloride Level 101 98-107 MMOL/L Carbon Dioxide Level 25 21-32 MMOL/L Anion Gap 13 5-14 MMOL/L Blood Urea Nitrogen 20 H 7-18 MG/DL Creatinine 0.70 0.60-1.30 MG/DL Estimat Glomerular Filtration Rate 83 BUN/Creatinine Ratio 29 Glucose Level 88 70-105 MG/DL Calcium Level 9.1 8.5-10.1 MG/DL Corrected Calcium 9.1 8.5-10.1 MG/DL Magnesium Level 1.9 1.6-2.4 MG/DL Total Bilirubin 0.5 0.1-1.0 MG/DL Aspartate Amino Transf (AST/SGOT) 33 5-34 U/L Alanine Aminotransferase (ALT/SGPT) 20 0-55 U/L Alkaline Phosphatase 62 40-136 U/L Myoglobin 33.6 10.0-92.0 NG/ML Troponin I < 0.028 <0.028 NG/ML Total Protein 7.0 6.4-8.2 GM/DL Albumin 4.0 3.2-4.5 GM/DL Urine Color YELLOW Urine Clarity CLEAR Urine pH 8.5 5-9 Urine Specific [place] 1.010 L 1.016-1.022 Urine Protein NEGATIVE NEGATIVE Urine Glucose (UA) NEGATIVE NEGATIVE Urine Ketones NEGATIVE NEGATIVE Urine Nitrite NEGATIVE NEGATIVE Urine Bilirubin NEGATIVE NEGATIVE Urine Urobilinogen 0.2 < = 1.0 MG/DL Urine Leukocyte Esterase 1+ H NEGATIVE Urine RBC (Auto) NEGATIVE NEGATIVE Urine RBC 0-2 /HPF Urine WBC 0-2 /HPF Urine Squamous Epithelial Cells 0-2 /HPF Urine Crystals PRESENT H /LPF Urine Amorphous Sediment FEW MARIAH PHOSPHATE H /LPF Urine Bacteria NEGATIVE /HPF Urine Casts NONE /LPF Urine Mucus NEGATIVE /LPF Urine Culture Indicated NO Ammonia 24 11-32 UMOL/L My Orders Orders - KARL VILLA MD Ekg Tracing (02/27/22 09:04) Cbc With Automated Diff (02/27/22 09:41) Magnesium (02/27/22 09:41) Chest 1 View, Ap/Pa Only (02/27/22 09:41) Comprehensive Metabolic Panel (02/27/22 09:41) Myoglobin Serum (02/27/22 09:41) Protime With Inr (02/27/22 09:41) Partial Thromboplastin Time (02/27/22 09:41) O2 (02/27/22 09:41) Monitor-Rhythm Ecg Trace Only (02/27/22 09:41) Ed Iv/Invasive Line Start (02/27/22 09:41) Troponin I [place] (02/27/22 09:41) Ct Head Wo-R/O Stroke (02/27/22 09:41) Ua Culture If Indicated (02/27/22 09:41) Catheter(Urinary) Insert & Ass 03,15 (02/27/22 09:41) Ammonia (02/27/22 12:10) Vital Signs/I&O 02/27/22 02/27/22 08:55 13:45 Temp 36.6 37.0 Pulse 56 61 Resp 16 16 B/P (MAP) 183/95 (124) 173/88 Pulse Ox 100 97 O2 Delivery Room Air Room Air Blood Pressure Mean: 124 Progress Progress Note : Time: 12:00 Progress Note Patient with expressive aphasia; recent TAVR at [place]. Recent hospitalization at [facility] with similar symptoms - completed work up for stroke done here. Case discussed with hospitalist here at [facility] and concern for something related to TAVR contributing to symptoms, rec to transfer to [place] for further eval by her cardiology team and neurology. Labs unremarkable and CT head noncontrast negative here. Patient not candidate for TP secondary to unknown time of onset (symptoms on awakening per ) and patient on eliquis. I have communicated all results to and let him know our [facility] thought process. He is agreeable. Initial ECG Impression Date: Feb 27, 2022 Initial ECG Impression Time: 09:08 Initial ECG Rate: 59 Initial ECG Rhythm: Normal Sinus Comment PVCs noted, widened QRS duration at 186, QTc 516 NM interval was not measured as the first part of the EKG does not seem to be sinus or is comprised of purely paced ventricular beats. The second half of the EKG is definitely a sinus however. Diagnostic Imaging Diagonstic Imaging: CT Comments [facility] [place], [place] NAME: YANNA LONG [facility] REC#: [id number] PT STATUS: REG ER : 1935 PHYSICIAN: KARL VILLA MD ADMIT DATE: 02/27/22/ER Signed Date of Exam:02/27/22 CT HEAD WO-R/O STROKE EXAMINATION: CT head without contrast. TECHNIQUE: Multiple contiguous axial images were obtained through the brain without the use of intravenous contrast. All CT scans use one or more of the following dose optimizing techniques: automated exposure control, MA and/or KvP adjustment based on patient size and exam type or iterative reconstruction. HISTORY: expressive aphasia COMPARISON: 02/11/2022 FINDINGS: The mitchell-white matter differentiation is normal. No mass effect or midline shift. The ventricles are normal in size and configuration. Basilar cisterns are patent. There are no intra- or extra-axial fluid collections. There is no intracranial hemorrhage. Periventricular white matter hypoattenuation is in keeping with chronic small vessel ischemic changes. The orbits are normal. Paranasal sinuses are normal. Mastoid air cells are clear. No soft tissue abnormality is seen. No osseus lesions or fractures are seen. IMPRESSION: 1. No acute intracranial abnormality. Dictated by: Dictated on workstation # [id number] Dict: 02/27/22 1018 Trans: 02/27/22 1020 [facility] [id number] Interpreted by: EVERETTE MUÑOZ MD Electronically signed by: EVERETTE MUÑOZ MD 02/27/22 1020 Departure Impression Primary Impression: Expressive aphasia Disposition: 02 XFER SHT-TRM HOSP Condition: Stable Transfer Transfer Reason: Exceeds level of care Time Spoke to Accepting Phy: 12:10 Transfer Progress Notes Discussed with Dr Salinas - accepting physician Transfer Time: 13:45 Transfer Facility: [facility] Method of Transfer: EMS Departure-Patient Inst. Referrals: ZEV FARRAR MD (PCP/Family) Primary Care Physician KARL VILLA MD Feb 27, 2022 09:41
[2022-02-27 09:48] LABS: BASOPHILS % (AUTO) 1 % (0-10); EOSINOPHILS # (AUTO) 0.2 10^3/uL (0.0-0.3); EOSINOPHILS % (AUTO) 4 % (0-10); HEMATOCRIT 34 % (35-52); HEMOGLOBIN 11.3 g/dL (11.5-16.0); LYMPHOCYTES # (AUTO) 0.9 10^3/uL (1.0-4.0); LYMPHOCYTES % (AUTO) 20 % (12-44); MEAN CORPUSCULAR HEMOGLOBIN 31 pg (25-34); MEAN CORPUSCULAR HGB CONC 33 g/dL (32-36); MEAN CORPUSCULAR VOLUME 91 fL (80-99); MEAN PLATELET VOLUME 10.3 fL (9.0-12.2); MONOCYTES # (AUTO) 0.4 10^3/uL (0.0-1.0); MONOCYTES % (AUTO) 9 % (0-12); NEUTROPHILS # (AUTO) 2.9 10^3/uL (1.8-7.8); NEUTROPHILS % (AUTO) 66 % (42-75); PLATELET COUNT 232 10^3/uL (130-400); WHITE BLOOD COUNT 4.4 10^3/uL (4.3-11.0)
[2022-02-27 09:52] LABS: POTASSIUM 3.9 MMOL/L (3.6-5.0)
[2022-02-27 09:53] LABS: CALCIUM 9.1 MG/DL (8.5-10.1); PROTHROMBIN TIME PATIENT 14.1 SEC (12.2-14.7)
[2022-02-27 09:56] LABS: BILIRUBIN,TOTAL 0.5 MG/DL (0.1-1.0)
[2022-02-27 09:58] LABS: CREATININE SERUM 0.7 MG/DL (0.60-1.30)
[2022-02-27 10:01] LABS: MAGNESIUM 1.9 MG/DL (1.6-2.4)
[2022-02-27 10:05] LABS: BILIRUBIN,URINE NEGATIVE (NEGATIVE); CLARITY,URINE CLEAR; COLOR,URINE YELLOW; GLUCOSE, URINE (UA) NEGATIVE (NEGATIVE); KETONES,URINE NEGATIVE (NEGATIVE); LEUKOCYTE ESTERASE ,URINE 1+ (NEGATIVE); NITRITE,URINE NEGATIVE (NEGATIVE); PH,URINE 8.5 (5-9); PROTEIN,URINE NEGATIVE (NEGATIVE)
--- NOTE | 2022-02-27 10:21 | Diagnostic Imaging Report ---
EXAMINATION: CT head without contrast. TECHNIQUE: Multiple contiguous axial images were obtained through the brain without the use of intravenous contrast. All CT scans use one or more of the following dose optimizing techniques: automated exposure control, MA and/or KvP adjustment based on patient size and exam type or iterative reconstruction. HISTORY: expressive aphasia COMPARISON: 02/11/2022 FINDINGS: The mitchell-white matter differentiation is normal. No mass effect or midline shift. The ventricles are normal in size and configuration. Basilar cisterns are patent. There are no intra- or extra-axial fluid collections. There is no intracranial hemorrhage. Periventricular white matter hypoattenuation is in keeping with chronic small vessel ischemic changes. The orbits are normal. Paranasal sinuses are normal. Mastoid air cells are clear. No soft tissue abnormality is seen. No osseus lesions or fractures are seen. IMPRESSION: 1. No acute intracranial abnormality. Dictated by: Dictated on workstation # [id number]
[2022-02-27 10:23] LABS: RBC,URINE 0-2 /HPF
[2022-02-27 10:24] LABS: AMORPHOUS SEDIMENT,UR FEW AMOR PHOSPHATE /LPF; BACTERIA,URINE NEGATIVE /HPF; SQUAMOUS EPITHELIAL CELL,UR 0-2 /HPF; WBC,URINE 0-2 /HPF
--- NOTE | 2022-02-27 10:45 | Diagnostic Imaging Report ---
EXAMINATION: Chest 1 view HISTORY: Chest pain COMPARISON: 02/14/2022 FINDINGS: There are central linear opacities and lucencies suggestive of bronchial dilation. There are a few nodular opacities in the lung bases that may correspond to ribbons. IMPRESSION: 1. Central linear opacities and lucencies suggestive of bronchial dilation. 2. Nodular opacities in lung bases which may represent ribbons. Chest CT without contrast recommended for further evaluation. Dictated by: Dictated on workstation # [id number]
[2022-02-27 13:45] VITALS: BP 173/88
== END 2022-02-27 13:45 | disposition short-term general hospital (02) ==
LOC: EDUNIT# 08:50 → ER 08:51
DX: R47.01 Aphasia (principal); Z95.4 Presence of other heart-valve replacement
CPT/HCPCS: 36415; 51702; 70450; 71045; 80053; 81000; 82140; 83735; 83874; 84484; 85025; 85610; 85730; 93005; 93041

== ENCOUNTER 2022-04-01 09:33 | Outpatient (RCR) | payer MEDICARE, OTHER ==
[2022-03-31 12:45] VITALS: BP 195/79
[2022-03-31] MEDS: NS IV 500 ML 500 ML IV SCH (13:00)
[~2022-04-01] VITALS: Wt 39.0 kg
[~2022-04-01 09:33] MED LIST changes: -TRIA1CAP4 PO; +TRIA1CAP84 PO
[2022-04-01 09:35] VITALS: BP 150/62
[2022-04-01] MEDS: NS IV 500 ML 500 ML IV SCH (09:45)
[2022-04-13] MEDS ORDERED: MTP25TSR PO (14:25)
[2022-04-13] MEDS ORDERED: LOSA100T57 PO (14:25)
[2022-04-16] MEDS ORDERED: MTP25TSR PO (09:25)
[2022-04-16] MEDS ORDERED: AMOX-355 PO (09:26)
== END 2022-04-24 | disposition home or self-care (01) ==
LOC: SDC 09:33
PROVIDERS: ATTEND Nurse Practitioner Family
DX: E86.0 Dehydration (principal)
CPT/HCPCS: 96360

== ENCOUNTER 2022-04-12 12:07 | Inpatient (IN) | payer MEDICARE, OTHER ==
[~2022-04-12] VITALS: Ht 160 cm; Wt 41.2 kg
[2022-04-12 12:33] LABS: BASOPHILS % (AUTO) 1 % (0-10); EOSINOPHILS # (AUTO) 0.1 10^3/uL (0.0-0.3); EOSINOPHILS % (AUTO) 2 % (0-10); HEMATOCRIT 35 % (35-52); HEMOGLOBIN 11.6 g/dL (11.5-16.0); LYMPHOCYTES # (AUTO) 0.9 10^3/uL (1.0-4.0); LYMPHOCYTES % (AUTO) 16 % (12-44); MEAN CORPUSCULAR HEMOGLOBIN 30 pg (25-34); MEAN CORPUSCULAR HGB CONC 33 g/dL (32-36); MEAN CORPUSCULAR VOLUME 90 fL (80-99); MEAN PLATELET VOLUME 9.3 fL (9.0-12.2); MONOCYTES # (AUTO) 0.4 10^3/uL (0.0-1.0); MONOCYTES % (AUTO) 7 % (0-12); NEUTROPHILS # (AUTO) 4.2 10^3/uL (1.8-7.8); NEUTROPHILS % (AUTO) 74 % (42-75); PLATELET COUNT 223 10^3/uL (130-400); WHITE BLOOD COUNT 5.8 10^3/uL (4.3-11.0)
--- NOTE | 2022-04-12 12:34 | ED Neurological Problem ---
General Chief Complaint: Neuro-Stroke Like Symptoms Stated Complaint: AMS Nursing Triage Note: PT ARRIVED VIA [facility] WITH STROKE LIKE SYMPTOMS. PT STATED THAT THEY WERE AT THE [facility] STORE AND SHE STATED THAT SHE "DIDN'T FEEL WELL". PT NOTICED THAT SHE WAS CONFUSED AT 1145. Source: patient Exam Limitations: no limitations History of Present Illness Date Seen by Provider: Apr 12, 2022 Time Seen by Provider: 12:15 Initial Comments Here by EMS with strokelike symptoms that started at about 1145. They are gone to the store and she reported she did not feel well and they went home and then she quit responding well. Patient may have had a stroke or had strokelike symptoms a few months ago. She is on Eliquis. No report of falls. is very poor historian. Patient is currently not answering questions well but does follow some commands. EMS did report that she was following commands much better in the ambulance then she is now. She apparently had confused responses to questions on some questions but was able to answer others well. She is doing neither now. She does not appear to be in pain. No report of vomiting. Timing/Duration: 1 hour Severity: moderate Associated Symptoms: weakness Allergies and Home Medications Allergies Coded Allergies: bacitracin (Verified Allergy, Mild, RASH, 10/15/19) lidocaine (Verified Allergy, Mild, RASH, 10/15/19) neomycin (Verified Allergy, Mild, RASH, 10/15/19) polymyxin B (Verified Allergy, Mild, RASH, 10/15/19) pramoxine (Verified Allergy, Mild, RASH, 10/15/19) Patient Home Medication List Home Medication List Reviewed: Yes Acetaminophen (Acetaminophen ER) 650 Mg Tablet.er, 650 MG PO HS, (Reported) Entered as Reported by: CRYSTAL NEVES on 04/24/17 0925 Acetaminophen (Acetaminophen ER) 650 Mg Tablet.er, 650 MG PO DAILY PRN for PAIN- MILD, (Reported) Entered as Reported by: CRYSTAL NEVES on 04/24/17 0930 Apixaban (Eliquis) 2.5 Mg Tablet, 2.5 MG PO BID, (Reported) Entered as Reported by: AMPARO COCHRAN on 01/04/22 0855 Calcium Citrate/Vitamin D3 (Calcium Citrate - Vit D3 Tab) 1 Each Tablet, 1 TAB PO DAILY, (Reported) Entered as Reported by: CRYSTAL NEVES on 04/24/17 0903 Doxazosin Mesylate (Doxazosin Mesylate) 4 Mg Tablet, 2 MG PO HS, (Reported) Entered as Reported by: KATIE QUEVEDO on 02/15/22 1024 Escitalopram Oxalate (Escitalopram Oxalate) 5 Mg Tablet, 5 MG PO HS, (Reported) Entered as Reported by: MARE MCDERMOTT on 11/07/16 0907 Esomeprazole Magnesium (Esomeprazole Magnesium) 40 Mg Capsule.dr, 40 MG PO DAILY, (Reported) Entered as Reported by: AMPARO COCHRAN on 01/04/22 0855 Famotidine (Famotidine) 40 Mg Tablet, 40 MG PO HS, (Reported) Entered as Reported by: CANDICE JIN on 10/06/15 1243 Losartan Potassium (Losartan Potassium) 100 Mg Tablet, 100 MG PO DAILY Prescribed by: ADRIEL PARHAM JR, MD on 02/18/22 0902 Melatonin (Melatonin) 10 Mg Tablet, 10 MG PO HS PRN for SLEEP, (Reported) Entered as Reported by: KATIE QUEVEDO on 02/15/22 1024 Metoprolol Succinate (Metoprolol Succinate) 25 Mg Tab.er.24h, 25 MG PO BID, (Reported) Entered as Reported by: AMPARO COCHRAN on 01/04/22 0855 Multivitamin (Multiple Vitamins) 1 Each Tablet, 1 EACH PO DAILY, (Reported) Entered as Reported by: ALBERTO BROWN on 10/15/19 0812 Simvastatin (Simvastatin) 10 Mg Tablet, 10 MG PO HS, (Reported) Entered as Reported by: AMPARO COCHRAN on 01/04/22 0855 Vit A/Vit C/Vit E/Zinc/Copper (Preservision Areds Tablet) 1 Each Tablet, 1 EACH PO DAILY, (Reported) Entered as Reported by: ALBERTO BROWN on 10/15/19 0812 Review of Systems Review of Systems Constitutional: see HPI; No chills, No fever Unable to complete review of systems due to altered mental status Past Hahzxrz-Ldktcx-Uqyshg Hx Patient Social History Tobacco Use?: No Substance use?: No Alcohol Use?: No Pt feels they are or have been: No Immunizations Up To Date Tetanus Booster (TDap): Unknown Influenza Vaccine Up-to-Date: No; Not Current First/Initial COVID19 Vaccinat: 2020 Second COVID19 Vaccination Conor: 2020 Third COVID19 Vaccination Date: 2020 Seasonal Allergies Seasonal Allergies: Yes Past Medical History Surgery/Hospitalization HX: PMH: HTN, PACEMAKER, VALVE REPLACEMENT Surgeries: Yes (RSO, BREAST BX, CATARACTS, BOWEL RESCTION, FX HIP) Breast, Cardiac, Hysterectomy, Orthopedic, Valve Replacement Respiratory: No (ASTHMA CHILD) Currently Using CPAP: No Currently Using BIPAP: No Cardiac: Yes Heart Murmur, High Cholesterol, Hypertension Neurological: No 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: No Female 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: Denies 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 DOWN SYNDROME) Hypertension 19 MOTHER G8 SISTER Kidney disease sister Myocardial infarction 19 FATHER Neoplasm 19 MOTHER (BREAST CANCER) Visual disorder 19 MOTHER (MACULAR DEGENERATION) Heart Disease, Cancer, Hypertension, Renal Disease, Other Conditions/Hx History per records this patient has altered mental status Physical Exam Vital Signs Vital Signs - First Documented 04/12/22 12:10 Temp 36.4 Pulse 64 Resp 12 B/P (MAP) 199/93 (128) Pulse Ox 96 O2 Delivery Room Air Capillary Refill : Less Than 3 Seconds Height, Weight, BMI Height: 5'3.00" Weight: 82lbs. 6.4oz. 37.650887gj; BMI Method:Stated General Appearance: mild distress, thin HEENT: PERRL/EOMI, pharynx normal Neck: full range of motion, supple Respiratory: lungs clear, normal breath sounds Cardiovascular: regular rate, rhythm, no murmur Gastrointestinal: non tender, soft Back: normal inspection, no CVA tenderness, no vertebral tenderness Neurologic/Psychiatric: alert, disoriented x 3, other (She did follow some commands with sitting up and deep breathing. Otherwise did not follow commands well.) Motor/Sensory: weak motor strength RUE, weak motor strength LUE, weak motor strength RLE, weak motor strength LLE Skin: normal color, warm/dry Stroke NIH Stroke Scale Assessment Gaze: Normal (0), Total: Stroke Thrombolytic Exclusion Age 18 or Over: Yes Acute intenal hemorrhage: No History of CVA: No Uncontrolled Coagulation Defec: No Intracranial Hemorrhage: No Severe Hypertension: No GI or Bleed: No Subarachnoid Hemorrhage: No Intracranial Neoplasm/Aneurysm: No Oral Anticoagulants: Yes Surgery or Trauma: No Puncture of Non-Compressible V: No Recent CPR: No Diabetic Hemorrhagic Retinopat: No Organ Biopsy: No Recent Obstetric Delivery: No Glucose: No Significant Hepatic Dysfunctio: No NIH Stoke Scale >22: No Bacterial Endocarditis: No Pericarditis: No Improving Symptoms: No Platelets: No Progress/Results/Core Measures Results/Orders Lab Results Laboratory Tests Test 04/12/22 12:20 04/12/22 12:22 04/12/22 13:18 Range/Units White Blood Count 5.8 4.3-11.0 10^3/uL Red Blood Count 3.91 3.80-5.11 10^6/uL Hemoglobin 11.6 11.5-16.0 g/dL Hematocrit 35 35-52 % Mean Corpuscular Volume 90 80-99 fL Mean Corpuscular Hemoglobin 30 25-34 pg Mean Corpuscular Hemoglobin Concent 33 32-36 g/dL Red Cell Distribution Width 14.3 10.0-14.5 % Platelet Count 223 130-400 10^3/uL Mean Platelet Volume 9.3 9.0-12.2 fL Immature Granulocyte % (Auto) 0 % Neutrophils (%) (Auto) 74 42-75 % Lymphocytes (%) (Auto) 16 12-44 % Monocytes (%) (Auto) 7 0-12 % Eosinophils (%) (Auto) 2 0-10 % Basophils (%) (Auto) 1 0-10 % Neutrophils # (Auto) 4.2 1.8-7.8 10^3/uL Lymphocytes # (Auto) 0.9 L 1.0-4.0 10^3/uL Monocytes # (Auto) 0.4 0.0-1.0 10^3/uL Eosinophils # (Auto) 0.1 0.0-0.3 10^3/uL Basophils # (Auto) 0.0 0.0-0.1 10^3/uL Immature Granulocyte # (Auto) 0.0 0.0-0.1 10^3/uL Prothrombin Time 14.7 12.2-14.7 SEC INR Comment 1.1 0.8-1.4 Activated Partial Thromboplast Time 44 H 24-35 SEC D-Dimer 0.53 H 0.00-0.49 UG/ML Sodium Level 138 135-145 MMOL/L Potassium Level 4.2 3.6-5.0 MMOL/L Chloride Level 100 98-107 MMOL/L Carbon Dioxide Level 23 21-32 MMOL/L Anion Gap 15 H 5-14 MMOL/L Blood Urea Nitrogen 19 H 7-18 MG/DL Creatinine 0.81 0.60-1.30 MG/DL Estimat Glomerular Filtration Rate 70 BUN/Creatinine Ratio 23 Glucose Level 95 70-105 MG/DL Calcium Level 9.6 8.5-10.1 MG/DL Corrected Calcium 9.4 8.5-10.1 MG/DL Total Bilirubin 0.5 0.1-1.0 MG/DL Aspartate Amino Transf (AST/SGOT) 33 5-34 U/L Alanine Aminotransferase (ALT/SGPT) 23 0-55 U/L Alkaline Phosphatase 75 40-136 U/L Troponin I < 0.028 <0.028 NG/ML Total Protein 7.5 6.4-8.2 GM/DL Albumin 4.3 3.2-4.5 GM/DL Glucometer 96 70-110 MG/DL Urine Color YELLOW Urine Clarity CLEAR Urine pH 8.5 5-9 Urine Specific [place] 1.015 L 1.016-1.022 Urine Protein NEGATIVE NEGATIVE Urine Glucose (UA) NEGATIVE NEGATIVE Urine Ketones NEGATIVE NEGATIVE Urine Nitrite POSITIVE H NEGATIVE Urine Bilirubin NEGATIVE NEGATIVE Urine Urobilinogen 0.2 < = 1.0 MG/DL Urine Leukocyte Esterase 1+ H NEGATIVE Urine RBC (Auto) NEGATIVE NEGATIVE Urine RBC 0-2 /HPF Urine WBC RARE /HPF Urine Squamous Epithelial Cells NONE /HPF Urine Crystals NONE /LPF Urine Bacteria MODERATE H /HPF Urine Casts NONE /LPF Urine Mucus NEGATIVE /LPF Urine Culture Indicated YES My Orders Orders - KHADAR JENKINS MD Cbc With Automated Diff (04/12/22 12:20) Protime With Inr (04/12/22 12:20) Partial Thromboplastin Time (04/12/22 12:20) Comprehensive Metabolic Panel (04/12/22 12:20) Fibrin Degradation Products (04/12/22 12:20) Troponin I [place] (04/12/22 12:20) Ua Culture If Indicated (04/12/22 12:20) Chest 1 View, Ap/Pa Only (04/12/22 12:20) Ekg Tracing (04/12/22 12:20) Nothing By Mouth (04/12/22 Lunch) Accucheck Stat ONCE (04/12/22 12:20) Ed Iv/Invasive Line Start (04/12/22 12:20) Ed Iv/Invasive Line Start (04/12/22 12:20) Vital Signs Stroke Patient Q15M (04/12/22 12:20) Ct Head Wo-R/O Stroke (04/12/22 12:20) O2 (04/12/22 12:20) Intake & Output 06,14,22 (04/12/22 12:20) Monitor-Rhythm Ecg Trace Only (04/12/22 12:20) Dysphagia Screening Tool Q10MX1 (04/12/22 12:20) Lipid Panel (04/13/22 06:00) Ns Iv 500 Ml (Sodium Chloride 0.9%) (04/12/22 12:45) Urine Culture (04/12/22 13:18) Lactic Acid Analyzer (04/12/22 13:42) Blood Culture (04/12/22 13:42) Ceftriaxone 1 Gm Pre-Mix (Rocephin 1 Gm (04/12/22 13:44) Medications Given in ED Current Medications Medications Dose Ordered Sig/Sam Route Start Time Stop Time Status Last Admin Dose Admin Sodium Chloride 500 ml @ 0 mls/hr Q0M ONCE IV 04/12/22 12:45 04/12/22 12:46 DC 04/12/22 13:04 500 MLS/HR Vital Signs/I&O 04/12/22 12:10 Temp 36.4 Pulse 64 Resp 12 B/P (MAP) 199/93 (128) Pulse Ox 96 O2 Delivery Room Air Blood Pressure Mean: 128 FSBG Bedside Testing Finger Stick Blood Glucose: 96 Blood Glucose Action Taken: NURSE AND DOC NOTIFIED Progress Progress Note : Progress Note Seen and evaluated. IV x2, labs, EKG, CT head stroke protocol initiated. Stroke order set initiated. Stroke activated. Normal saline 500 mL bolus ordered. Monitor patient. Patient is not candidate for tPA as she is on Eliquis. Unable to accurately assess stroke scale due to underlying confusion. She does seem to be able to move all extremities but does not follow commands for weakness evaluation or sensory evaluation. She is awake but is not answering questions well enough to evaluate underlying orientation questions or speech ability. 1355: UA is positive and nitrite positive. I do believe this may be part of the underlying cause. Blood cultures and lactic acid have been ordered and are pending. 1403: I did discuss the case with Dr. Bradshaw and she accepts patient for admission, inpatient status. Patient is DNR. informed and agrees. Initial ECG Impression Date: Apr 12, 2022 Initial ECG Impression Time: 12:50 Initial ECG Rate: 61 Comment Electronic ventricular paced with underlying atrial fibrillation. Similar to previous of 02/27/2022. Normal axis. No evidence of ST elevation ND. Interpreted by me. Diagnostic Imaging Diagonstic Imaging: CT Plain Films/CT/US/NM/MRI: head Comments [facility] [place], [place] NAME: YANNA LONG [facility] REC#: [id number] PT STATUS: REG ER : 1935 PHYSICIAN: KHADAR JENKINS MD ADMIT DATE: 04/12/22/ER Draft Date of Exam:04/12/22 CT HEAD WO-R/O STROKE CLINICAL INDICATIONS: Patient with stroke-like symptoms. Patient having episodes of confusion and neural deficit. EXAM: Axial CT scan of the brain performed without IV contrast. High-resolution axial CT brain images with sagittal and coronal reformations were also created. Auto Exposure Controls were utilized during the CT exam to meet ALARA standards for radiation dose reduction. COMPARISON: Head CT without contrast dated 02/27/2022. FINDINGS: There is no evidence of acute cerebral infarct, intracranial hemorrhage, or gross mass effect. There is no dense vessel sign. The brain parenchymal volume appears appropriate for patient's age. There is no significant change in the diffuse patchy and confluent areas of low-density white matter changes involving both cerebral hemispheres. There is normal mitchell-white matter distinction. There is no significant midline shift or herniation. There is no evidence of hydrocephalus. The basal cisterns are unremarkable. The skull, extracranial soft tissue, and orbits are unremarkable. The paranasal sinuses are unremarkable. Temporal bones show no significant abnormality. IMPRESSION: 1: Stable CT scan of the brain with no evidence of acute intracranial process. There is no dense vessel sign. 2: Chronic small vessel ischemic disease and leukoaraiosis. 3: The results of this report were discussed with Dr. Khadar Jenkins via the telephone on 04/12/2022 at 1255 hours. Dictated on workstation # [id number] Dict: 04/12/22 1251 Trans: 04/12/22 1258 [id number] Interpreted by: HEATHER MARTELL MD Electronically signed by: Reviewed: Reviewed by Me, Discussed w/Radiologist Diagonstic Imaging: Xray Plain Films/CT/US/NM/MRI: chest Comments [facility] [place], [place] NAME: YANNA LONG [facility] REC#: [id number] PT STATUS: REG ER : 1935 PHYSICIAN: KHADAR JENKINS MD ADMIT DATE: 04/12/22/ER Signed Date of Exam:04/12/22 CHEST 1 VIEW, AP/PA ONLY CHEST 1 VIEW, AP/PA ONLY Indication: Stroke, altered mental status Comparison: 02/27/2022 Findings: No focal airspace disease in the visualized lungs. Please note that the posterior lower lobes are poorly evaluated by portable radiography. No pleural effusion or pneumothorax. Normal cardiomediastinal silhouette. Implanted loop recorder device is noted in the central chest. Extensive calcification of the costal cartilage. Impression: 1. No acute cardiopulmonary process by portable radiography. Dictated by: Dictated on workstation # [id number] Dict: 04/12/22 1323 Trans: 04/12/22 1324 [facility] [id number] Interpreted by: RACH BARRAZA MD Electronically signed by: RACH BARRAZA MD 04/12/22 1324 Departure Communication (Admissions) Time/Spoke to Admitting Phy: 14:03 Impression Primary Impression: UTI (urinary tract infection) Qualified Codes: N30.00 - Acute cystitis without hematuria Additional Impression: Altered mental status Qualified Codes: R41.0 - Disorientation, unspecified Disposition: ADMITTED INPATIENT Condition: Stable Admissions Decision to Admit Reason: Admit from ER (General) Decision to Admit/Date: Apr 12, 2022 Time/Decision to Admit Time: 14:03 Departure-Patient Inst. Referrals: ZEV BRADSHAW MD (PCP/Family) Primary Care Physician KHADAR JENKINS MD Apr 12, 2022 12:34
[2022-04-12 12:38] LABS: ALBUMIN 4.3 GM/DL (3.2-4.5); CHLORIDE 100 MMOL/L (98-107); POTASSIUM 4.2 MMOL/L (3.6-5.0); SODIUM 138 MMOL/L (135-145)
[2022-04-12 12:39] LABS: CALCIUM 9.6 MG/DL (8.5-10.1)
[2022-04-12 12:40] LABS: GLUCOSE 95 MG/DL (70-105)
[2022-04-12 12:41] LABS: TOTAL PROTEIN 7.5 GM/DL (6.4-8.2)
[2022-04-12 12:42] LABS: BILIRUBIN,TOTAL 0.5 MG/DL (0.1-1.0); CARBON DIOXIDE 23 MMOL/L (21-32)
[2022-04-12 12:44] LABS: ALKALINE PHOSPHATASE 75 U/L (40-136); CREATININE SERUM 0.81 MG/DL (0.60-1.30); FIBRIN DEGRADATION PRODUCTS 0.53 UG/ML (0.00-0.49); GFR ESTIMATED 70; INR 1.1 (0.8-1.4); PROTHROMBIN TIME PATIENT 14.7 SEC (12.2-14.7)
[2022-04-12 12:45] LABS: BUN/CREATININE RATIO 23
[2022-04-12] MEDS ORDERED: NS IV 500 ML 500 ML IV ONE (12:45)
[2022-04-12 12:47] LABS: ALANINE AMINOTRANSFERASE 23 U/L (0-55)
--- NOTE | 2022-04-12 12:59 | Diagnostic Imaging Report ---
CLINICAL INDICATIONS: Patient with stroke-like symptoms. Patient having episodes of confusion and neural deficit. EXAM: Axial CT scan of the brain performed without IV contrast. High-resolution axial CT brain images with sagittal and coronal reformations were also created. Auto Exposure Controls were utilized during the CT exam to meet ALARA standards for radiation dose reduction. COMPARISON: Head CT without contrast dated 02/27/2022. FINDINGS: There is no evidence of acute cerebral infarct, intracranial hemorrhage, or gross mass effect. There is no dense vessel sign. The brain parenchymal volume appears appropriate for patient's age. There is no significant change in the diffuse patchy and confluent areas of low-density white matter changes involving both cerebral hemispheres. There is normal mitchell-white matter distinction. There is no significant midline shift or herniation. There is no evidence of hydrocephalus. The basal cisterns are unremarkable. The skull, extracranial soft tissue, and orbits are unremarkable. The paranasal sinuses are unremarkable. Temporal bones show no significant abnormality. IMPRESSION: 1: Stable CT scan of the brain with no evidence of acute intracranial process. There is no dense vessel sign. 2: Chronic small vessel ischemic disease and leukoaraiosis. 3: The results of this report were discussed with Dr. Khadar Magana via the telephone on 04/12/2022 at 1255 hours. Dictated by: Dictated on workstation # [id number]
[2022-04-12 13:24] LABS: BILIRUBIN,URINE NEGATIVE (NEGATIVE); CLARITY,URINE CLEAR; COLOR,URINE YELLOW; GLUCOSE, URINE (UA) NEGATIVE (NEGATIVE); KETONES,URINE NEGATIVE (NEGATIVE); LEUKOCYTE ESTERASE ,URINE 1+ (NEGATIVE); NITRITE,URINE POSITIVE (NEGATIVE); PH,URINE 8.5 (5-9); PROTEIN,URINE NEGATIVE (NEGATIVE)
--- NOTE | 2022-04-12 13:25 | Diagnostic Imaging Report ---
CHEST 1 VIEW, AP/PA ONLY Indication: Stroke, altered mental status Comparison: 02/27/2022 Findings: No focal airspace disease in the visualized lungs. Please note that the posterior lower lobes are poorly evaluated by portable radiography. No pleural effusion or pneumothorax. Normal cardiomediastinal silhouette. Implanted loop recorder device is noted in the central chest. Extensive calcification of the costal cartilage. Impression: 1. No acute cardiopulmonary process by portable radiography. Dictated by: Dictated on workstation # [id number]
[2022-04-12 13:35] LABS: BACTERIA,URINE MODERATE /HPF; RBC,URINE 0-2 /HPF; WBC,URINE RARE /HPF
[2022-04-12] MEDS ORDERED: cefTRIAXone 1 GM PRE-MIX 50 ML IV STA (13:44)
[2022-04-12 14:50] VITALS: BP 96/54
[2022-04-12] MEDS ORDERED: CATHETER FLUSH 10 ML SYR IVP PRN (15:00)
[2022-04-12] MEDS ORDERED: ONDANSETRON 4 MG/2 ML (SDV) Z0FRAN IV PRN (15:00)
[2022-04-12] MEDS: NS IV 1000 ML 1,000 ML IV SCH ×2 (15:40→18:15)
[2022-04-12 15:52] VITALS: BP 171/96
[2022-04-12] MEDS ORDERED: NS IV 1000 ML 1,000 ML IV SCH ×2 (17:00→18:00)
--- NOTE | 2022-04-12 17:07 | History & Physical ---
YARA IVORY 04/12/22 3917: History of Present Illness History of Present Illness Reason for visit/HPI Ashley Nguyen is an 86 y/o F w/ a PMH of atrial fibrillation who presented to the ED today due to altered mental status. History provided by . He reports that the pt first began to complain about fatigue at around noon while they were at the store shopping. She then told him that she needed to get home as she was too tired. Pt was then taken home at which point she became to become confused according to her . She eventually no longer recognized her and that was when he called 911 and EMS was dispatched to their home. He says that when EMS was at their home that pt was not able to follow directions. This morning before they left for the store he did not notice anything abnormal about her and for the last few days she had been in good health. He denied that she had been complaining about anything being wrong before she complained of fatigue in the store. Date of Admission Apr 12, 2022 at 14:03 Date Seen by a Provider: Apr 12, 2022 Time Seen by a Provider: 04:42 I consulted on this patient on 04/12/22 17:01 Attending Physician Zev Bradshaw MD Admitting Physician Admitting Physician: Zev Bradshaw MD Attending Physician: Zev Bradshaw MD Consult Allergies and Home Medications Allergies Coded Allergies: bacitracin (Verified Allergy, Mild, RASH, 10/15/19) lidocaine (Verified Allergy, Mild, RASH, 10/15/19) neomycin (Verified Allergy, Mild, RASH, 10/15/19) polymyxin B (Verified Allergy, Mild, RASH, 10/15/19) pramoxine (Verified Allergy, Mild, RASH, 10/15/19) Patient Home Medication List Acetaminophen (Acetaminophen ER) 650 Mg Tablet.er, 650 MG PO HS, (Reported) Entered as Reported by: CRYSTAL NEVES on 04/24/17924 Last Action: Reviewed Acetaminophen (Acetaminophen ER) 650 Mg Tablet.er, 650 MG PO DAILY PRN for PAIN- MILD, (Reported) Entered as Reported by: CRYSTAL NEVES on 04/24/17929 Last Action: Reviewed Apixaban (Eliquis) 2.5 Mg Tablet, 2.5 MG PO BID, (Reported) Entered as Reported by: AMPARO COCHRAN on 01/04/22854 Last Action: Continued Calcium Citrate/Vitamin D3 (Calcium Citrate - Vit D3 Tab) 1 Each Tablet, 1 TAB PO DAILY, (Reported) Entered as Reported by: CRYSTAL NEVES on 04/24/17 0903 Last Action: Held Doxazosin Mesylate (Doxazosin Mesylate) 4 Mg Tablet, 2 MG PO HS, (Reported) Entered as Reported by: KATIE QUEVEDO on 02/15/22 1024 Last Action: Reviewed Escitalopram Oxalate (Escitalopram Oxalate) 5 Mg Tablet, 5 MG PO HS, (Reported) Entered as Reported by: MARE MCDERMOTT on 11/07/16 0907 Last Action: Reviewed Famotidine (Famotidine) 40 Mg Tablet, 40 MG PO HS, (Reported) Entered as Reported by: CANDICE JIN on 10/06/15 1243 Last Action: Held Losartan Potassium (Losartan Potassium) 100 Mg Tablet, 100 MG PO DAILY Prescribed by: ADRIEL PARHAM JR, MD on 02/18/22 09 Last Action: Continued Melatonin (Melatonin) 10 Mg Tablet, 10 MG PO HS PRN for SLEEP, (Reported) Entered as Reported by: KATIE QUEVEDO on 02/15/22 1024 Last Action: Held Metoprolol Succinate (Metoprolol Succinate) 25 Mg Tab.er.24h, 25 MG PO BID, (Reported) Entered as Reported by: AMPARO COCHRAN on 01/04/22854 Last Action: Reviewed Multivitamin (Multiple Vitamins) 1 Each Tablet, 1 EACH PO DAILY, (Reported) Entered as Reported by: ALBERTO BROWN on 10/15/19 08 Last Action: Held Simvastatin (Simvastatin) 10 Mg Tablet, 10 MG PO HS, (Reported) Entered as Reported by: AMPARO COCHRAN on 01/04/22 08 Last Action: Reviewed Vit A/Vit C/Vit E/Zinc/Copper (Preservision Areds Tablet) 1 Each Tablet, 1 EACH PO DAILY, (Reported) Entered as Reported by: ALBERTO BROWN on 10/15/19 08 Last Action: Held Discontinued Medications Esomeprazole Magnesium (Esomeprazole Magnesium) 40 Mg Capsule.dr, 40 MG PO DAILY, (Reported) Entered as Reported by: AMPARO COCHRAN on 01/04/22 0855 Last Action: Discontinued Past Tlzyfzz-Uzmkhf-Jpfkmm Hx Patient Social History Marrital Status: Tobacco Use?: No Smoking Status: Never a Smoker Use of E-Cig and/or Vaping dev: No Substance use?: No Alcohol Use?: No Pt feels they are or have been: No Immunizations Up To Date Date of Influenza Vaccine: Jul 01, 2019 First/Initial COVID19 Vaccinat: 2020 Second COVID19 Vaccination Conor: 2020 Tetanus Booster (TDap): More Than 5 Years Hepatitis A: No Hepatitis B: No Date of Pneumonia Vaccine: Jul 01, 2019 Seasonal Allergies Seasonal Allergies: Yes Current Status status: No status: No Advance Directives: No Communicates: Verbally Primary Language: Tanzanian Preferred Spoken Language: Tanzanian Is interpretation needed?: No Implanted or Applied Medical D: Pacemaker Past Medical History Surgeries: Breast, Cardiac, Hysterectomy, Orthopedic, Valve Replacement Currently Using CPAP: No Currently Using BIPAP: No Heart Murmur, High Cholesterol, Hypertension LEGAL MEDIATOR History: Tubal Ligation Sexually Transmitted Disease: No HIV/AIDS: No Gastroesophageal Reflux, Obstructive Bowel, Chronic Constipation, Hiatal Hernia Osteoporosis, Arthritis Macular Degeneration Loss of Vision: Denies Hearing Impairment: Denies Sleep Difficulties Blood Disorders: No Adverse Reaction/Blood Tranf: No (HAS HAD BLOOD WITH NO REACTION) Family Medical History Congenital disease G8 BROTHER (? DOWN SYNDROME) Hypertension 19 MOTHER G8 SISTER Kidney disease sister Myocardial infarction 19 FATHER Neoplasm 19 MOTHER (BREAST CANCER) Visual disorder 19 MOTHER (MACULAR DEGENERATION) Heart Disease, Cancer, Hypertension, Renal Disease, Other Conditions/Hx History per records this patient has altered mental status Review of Systems ROS-Unable to Obtain: due to her mental status Physical Exam Vital Signs Vital Signs - First Documented 04/12/22 12:10 Temp 36.4 Pulse 64 Resp 12 B/P (MAP) 199/93 (128) Pulse Ox 96 O2 Delivery Room Air Capillary Refill : Less Than 3 Seconds Height, Weight, BMI Height: 5'3.00" Weight: 82lbs. 6.4oz. 37.120699im; 16.09 BMI Method:Stated General Appearance: Mild Distress, Thin Respiratory: Lungs Clear, Normal Breath Sounds Cardiovascular: Regular Rate, Rhythm, No Edema Gastrointestinal: Non Tender, Soft Extremity: Non Tender, No Pedal Edema Neurologic/Psychiatric: No Alert, No Oriented x3 Skin: Normal Color, Cool (feet were cool) Assessment/Plan Assessment and Plan Sepsis UTI Altered mental status History of pacemaker placement HTN Advanced age Frailty GERD Depression with anxiety Sepsis likely due to UTI -UA positive in ER -lactic acid elevated at 2.08 at last check -1L NS bolus orded, then start NS at 125mL/Hr -start ceftriaxone (day16) and Zosyn (day 1) -awaiting urine and blood culture, will review when returned and make changes to antibiotics if needed -continue to monitor Altered mental status -head CT done in ER showed, according to radiology, stable CT scan of the brain with no evidence of acute intracranial process. there is no dense vessel s ign. chronic small vessel ischemic disease and leukoaraiosis. -will continue to monitor for change in mental status w/ sepsis treatment History of pacemaker placement -currently on Eliquis for anticoagulation, continue current medication Advanced age w/ frailty - will need to start PT when able GERD -start Protonix Depression w/ anxiety -can start home SSRI when able DVT prophylaxis w/ SCDs and Eliquis GI prophylaxis covered by PPI for GERD Normal diet Code status: DNR Admission Diagnosis Sepsis UTI Altered mental status History of pacemaker placement HTN Advanced age Frailty GERD Depression with anxiety ZEV BRADSHAW MD 04/13/22 0852: History of Present Illness History of Present Illness Reason for visit/HPI Pt is an 86 y/o female who is well known to me from clinic. Per her 's report - she started to have weakness while they were out shopping, they went home and she started to become confused and less responsive. He was concerned about a possible stroke so they called EMS to eval her and take her to the ER. In the ER she was found to have a urinary tract infection, CT of head was negative for acute stroke, and she was therefore admitted to the hospital for treatment of UTI. Between the admission and this rewriter's eval of pt, she was found to be septic with an elevated Lactic Acid level and sepsis protocol was initiated. Date of Admission 04/12/22 Attending Physician Zev Bradshaw MD Admitting Physician Zev Bradshaw MD Allergies and Home Medications Allergies Coded Allergies: bacitracin (Verified Allergy, Mild, RASH, 10/15/19) lidocaine (Verified Allergy, Mild, RASH, 10/15/19) neomycin (Verified Allergy, Mild, RASH, 10/15/19) polymyxin B (Verified Allergy, Mild, RASH, 10/15/19) pramoxine (Verified Allergy, Mild, RASH, 10/15/19) Patient Home Medication List Home Medication List Reviewed: Yes Acetaminophen (Acetaminophen ER) 650 Mg Tablet.er, 650 MG PO HS, (Reported) Entered as Reported by: CRYSTAL NEVES on 04/24/17 09 Last Action: Reviewed Acetaminophen (Acetaminophen ER) 650 Mg Tablet.er, 650 MG PO DAILY PRN for PAIN- MILD, (Reported) Entered as Reported by: CRYSTAL NEVES on 04/24/17 0930 Last Action: Reviewed Apixaban (Eliquis) 2.5 Mg Tablet, 2.5 MG PO BID, (Reported) Entered as Reported by: AMPARO COCHRAN on 01/04/22 0855 Last Action: Continued Calcium Citrate/Vitamin D3 (Calcium Citrate - Vit D3 Tab) 1 Each Tablet, 1 TAB PO DAILY, (Reported) Entered as Reported by: CRYSTAL NEVES on 04/24/17 09 Last Action: Held Doxazosin Mesylate (Doxazosin Mesylate) 4 Mg Tablet, 2 MG PO HS, (Reported) Entered as Reported by: KATIE QUEVEDO on 02/15/22 1024 Last Action: Reviewed Escitalopram Oxalate (Escitalopram Oxalate) 5 Mg Tablet, 5 MG PO HS, (Reported) Entered as Reported by: MARE MCDERMOTT on 11/07/16 0907 Last Action: Reviewed Famotidine (Famotidine) 40 Mg Tablet, 40 MG PO HS, (Reported) Entered as Reported by: CANDICE JIN on 10/06/15 1243 Last Action: Held Losartan Potassium (Losartan Potassium) 100 Mg Tablet, 100 MG PO DAILY Prescribed by: ADRIEL PARHAM JR, MD on 02/18/22 0902 Last Action: Continued Melatonin (Melatonin) 10 Mg Tablet, 10 MG PO HS PRN for SLEEP, (Reported) Entered as Reported by: KATIE QUEVEDO on 02/15/22 1024 Last Action: Held Metoprolol Succinate (Metoprolol Succinate) 25 Mg Tab.er.24h, 25 MG PO BID, (Reported) Entered as Reported by: AMPARO COCHRAN on 01/04/22 0855 Last Action: Reviewed Multivitamin (Multiple Vitamins) 1 Each Tablet, 1 EACH PO DAILY, (Reported) Entered as Reported by: ALBERTO BROWN on 10/15/19811 Last Action: Held Simvastatin (Simvastatin) 10 Mg Tablet, 10 MG PO HS, (Reported) Entered as Reported by: AMPARO COCHRAN on 01/04/22854 Last Action: Reviewed Vit A/Vit C/Vit E/Zinc/Copper (Preservision Areds Tablet) 1 Each Tablet, 1 EACH PO DAILY, (Reported) Entered as Reported by: ALBERTO BROWN on 10/15/19811 Last Action: Held Discontinued Medications Esomeprazole Magnesium (Esomeprazole Magnesium) 40 Mg Capsule.dr, 40 MG PO DAILY, (Reported) Entered as Reported by: AMPARO COCHRAN on 01/04/22854 Last Action: Discontinued Past Ffixzqv-Gbzrwl-Axrtzk Hx Patient Social History Marrital Status: Number of Children: 3 Number of living children: 3 Living Status: lives at home with spouse and paid caregiver Employed/Student: retired Tobacco Use?: No Smoking Status: Never a Smoker Use of E-Cig and/or Vaping dev: No Substance use?: No Alcohol Use?: No Seasonal Allergies Seasonal Allergies: No Current Status status: No Advance Directives: No Communicates: Verbally Primary Language: Tanzanian Preferred Spoken Language: Tanzanian Is interpretation needed?: No Implanted or Applied Medical D: Other Past Medical History Surgeries: Valve Replacement Currently Using CPAP: No Currently Using BIPAP: No High Cholesterol, Hypertension Sexually Transmitted Disease: No HIV/AIDS: No Arthritis Depression Family Medical History Reviewed and Corrections made Congenital disease G8 BROTHER (? DOWN SYNDROME) Hypertension 19 MOTHER G8 SISTER Kidney disease sister Myocardial infarction 19 FATHER Neoplasm 19 MOTHER (BREAST CANCER) Visual disorder 19 MOTHER (MACULAR DEGENERATION) Heart Disease, Cancer, Hypertension Review of Systems Constitutional: other (pt confused, unable to participate in conversation due to mental status) Psychiatric/Neurological: Weakness, Other (grossly confused) All Other Systems Reviewed Negative Unless Noted: Yes Physical Exam General Appearance: Mild Distress, Thin Neck: Full Range of Motion Respiratory: Lungs Clear, Normal Breath Sounds, No Respiratory Distress Cardiovascular: Regular Rate, Rhythm, No Edema, Systolic Murmur Gastrointestinal: Normal Bowel Sounds, Non Tender, Soft Rectal: Deferred Extremity: Normal Capillary Refill, Non Tender, No Calf Tenderness Neurologic/Psychiatric: No Alert, No Oriented x3; Disoriented Skin: Normal Color, Cool (feet were cold on exam) Assessment/Plan Assessment and Plan Sepsis Urinary tract infection Chronic Hypertension Confusion Gastroesophageal Reflux - chronic Generalized Weakness Frailty Advanced Age Hx of valve replacement surgery Admission Diagnosis Sepsis Urinary tract infection Chronic Hypertension Confusion Gastroesophageal Reflux - chronic Generalized Weakness Frailty Advanced Age Hx of valve replacement surgery Sepsis due to Urinary tract infection - pt given fluid bolus in the ER - additional bolus with increase in fluid rate today. - pt given rocephin in the ER - antibiotic selection broadened to Zosyn - discussed pt the pt's spouse and son Morgan, due to her advanced age and frailty she is at higher risk of in-hospital - they are aware of this and want to have her DNR/DNI status. Chronic Hypertension - pt hypotensive on admission - will monitor pressure and slowly add back medication as indicated since her last hospitalization was for hypertensive ence phalopathy Confusion - due to acute illness. Gastroesophageal Reflux - chronic - restart ppi therapy Generalized Weakness with Frailty - supportive care, will start therapy when pt is more alert and interactive and able to follow commands. Advanced Age Hx of valve replacement surgery dvt prophylaxis with scd's and eliquis gi prophylaxis with ppi therapy Admission Status: Inpatient Order (span 2 midnights) Reason for Inpatient Admission: inpt admission for sepsis, will require at least 2-4 midnights in the hospital for stabilization and treatment Supervisory-Addendum Brief Verification & Attestation Participated in pt care: history, MDM, physical Personally performed: exam, history, MDM, supervision of care Care discussed with: Medical Student Procedures: n/a Results interpretation: Verified all documentation see my documentation - agree with student note YARA IVORY Apr 12, 2022 17:07 ZEV BRADSHAW MD Apr 13, 2022 08:52
[2022-04-12] MEDS ORDERED: PIPERACILLIN SODIUM/TAZOBACTAM 4.5 GM in NS (IVPB) 100 ML IV NR (18:00)
[2022-04-12 19:31] VITALS: BP 163/71
[2022-04-12 23:39] VITALS: BP 132/55
[2022-04-12] MEDS: PIPERACILLIN SODIUM/TAZOBACTAM 4.5 GM in NS (IVPB) 100 ML IV SCH (23:49)
[2022-04-13 03:20] VITALS: BP 149/64
[2022-04-13 05:24] LABS: BASOPHILS % (AUTO) 0 % (0-10); EOSINOPHILS % (AUTO) 0 % (0-10); HEMATOCRIT 31 % (35-52); HEMOGLOBIN 10.4 g/dL (11.5-16.0); LYMPHOCYTES # (AUTO) 0.9 10^3/uL (1.0-4.0); LYMPHOCYTES % (AUTO) 11 % (12-44); MEAN CORPUSCULAR HEMOGLOBIN 30 pg (25-34); MEAN CORPUSCULAR HGB CONC 33 g/dL (32-36); MEAN CORPUSCULAR VOLUME 90 fL (80-99); MEAN PLATELET VOLUME 9.7 fL (9.0-12.2); MONOCYTES # (AUTO) 0.7 10^3/uL (0.0-1.0); MONOCYTES % (AUTO) 8 % (0-12); NEUTROPHILS # (AUTO) 6.6 10^3/uL (1.8-7.8); NEUTROPHILS % (AUTO) 80 % (42-75); PLATELET COUNT 217 10^3/uL (130-400); WHITE BLOOD COUNT 8.2 10^3/uL (4.3-11.0)
[2022-04-13 05:39] LABS: POTASSIUM 3.2 MMOL/L (3.6-5.0)
[2022-04-13 05:40] LABS: CALCIUM 7.9 MG/DL (8.5-10.1)
[2022-04-13 05:45] LABS: CREATININE SERUM 0.74 MG/DL (0.60-1.30)
--- NOTE | 2022-04-13 07:37 | Progress Note ---
Subjective Subjective Date Seen by Provider: Apr 13, 2022 Time Seen by Provider: 07:06 Ashley Nguyen is an 86y/o F beings seen for follow up due to UTI. Pt was awake and alert this morning when I entered the room. She was able to answer all my questions which is an improvement from yesterday. She states that she does not remember what happened yesterday. reports that she sleep from when she was admitted yesterday until 0400 today. She says that she feels well rested. Pt did not eat yesterday since she was asleep for most of the afternoon. When asked she denied having any other concerns. Review of Systems General: No Chills, No Other (fever) HEENT: No Visual Changes, No Eye Pain Pulmonary: No Dyspnea, No Cough Cardiovascular: No: Chest Pain, Palpitations Gastrointestinal: No: Nausea, Vomiting, Abdominal Pain Genitourinary: Other (catheter in place) Musculoskeletal: No: neck pain, back pain Neurological: No: Change in speech, Confusion Objective Exam Vital Signs Vital Signs Date Time Temp Pulse Resp B/P (MAP) Pulse Ox O2 Delivery O2 Flow Rate FiO2 04/13/22 03:20 37.6 69 18 149/64 (92) 96 Room Air 04/12/22 23:39 37.5 64 18 132/55 (80) 96 Room Air 04/12/22 20:39 97 Room Air 04/12/22 19:31 37.6 67 18 163/71 (101) 97 Room Air 04/12/22 15:52 36.6 69 20 171/96 (121) 99 Room Air 04/12/22 15:30 Room Air 04/12/22 14:50 37.1 67 20 96/54 (68) 98 Room Air 04/12/22 14:30 61 17 206/91 99 Room Air 04/12/22 12:10 36.4 64 12 199/93 (128) 96 Room Air I & O 04/13/22 07:00 Intake Total 775 ml Output Total 1950 ml Balance -1175 ml General Appearance: No Apparent Distress, Thin HEENT: PERRL/EOMI; No Photophobia Neck: Non Tender, Supple Respiratory: Lungs Clear, Normal Breath Sounds Cardiovascular: No Edema, Normal Peripheral Pulses, Irregularly Irregular Gastrointestinal: Non Tender, Soft Extremity: Non Tender, No Pedal Edema Neurologic/Psychiatric: Alert, Oriented x3 (to person, place, and year) Skin: Normal Color, Warm/Dry Results Lab Laboratory Tests 04/12/22 12:20: White Blood Count 5.8, Red Blood Count 3.91, Hemoglobin 11.6, Hematocrit 35, Mean Corpuscular Volume 90, Mean Corpuscular Hemoglobin 30, Mean Corpuscular Hemoglobin Concent 33, Red Cell Distribution Width 14.3, Platelet Count 223, Mean Platelet Volume 9.3, Immature Granulocyte % (Auto) 0, Neutrophils (%) (Auto) 74, Lymphocytes (%) (Auto) 16, Monocytes (%) (Auto) 7, Eosinophils (%) (Auto) 2, Basophils (%) (Auto) 1, Neutrophils # (Auto) 4.2, Lymphocytes # (Auto) 0.9L, Monocytes # (Auto) 0.4, Eosinophils # (Auto) 0.1, Basophils # (Auto) 0.0, Immature Granulocyte # (Auto) 0.0, Prothrombin Time 14.7, INR Comment 1.1, Activated Partial Thromboplast Time 44H, D-Dimer 0.53H, Sodium Level 138, Potassium Level 4.2, Chloride Level 100, Carbon Dioxide Level 23, Anion Gap 15H, Blood Urea Nitrogen 19H, Creatinine 0.81, Estimat Glomerular Filtration Rate 70, BUN/Creatinine Ratio 23, Glucose Level 95, Calcium Level 9.6, Corrected Calcium 9.4, Total Bilirubin 0.5, Aspartate Amino Transf (AST/SGOT) 33, Alanine Aminotransferase (ALT/SGPT) 23, Alkaline Phosphatase 75, Troponin I < 0.028, Total Protein 7.5, Albumin 4.3 04/12/22 12:22: Glucometer 96 04/12/22 13:18: Urine Color YELLOW, Urine Clarity CLEAR, Urine pH 8.5, Urine Specific [place] 1.015L, Urine Protein NEGATIVE, Urine Glucose (UA) NEGATIVE, Urine Ketones NEGATIVE, Urine Nitrite POSITIVEH, Urine Bilirubin NEGATIVE, Urine Urobilinogen 0.2, Urine Leukocyte Esterase 1+H, Urine RBC (Auto) NEGATIVE, Urine RBC 0-2, Urine WBC RARE, Urine Squamous Epithelial Cells NONE, Urine Crystals NONE, Urine Bacteria MODERATEH, Urine Casts NONE, Urine Mucus NEGATIVE, Urine Culture I ndicated YES 04/12/22 13:45: Lactic Acid Level 2.23*H 04/12/22 15:50: Lactic Acid Level 2.07*H 04/12/22 18:17: Lactic Acid Level 1.65 04/13/22 05:00: White Blood Count 8.2, Red Blood Count 3.47L, Hemoglobin 10.4L, Hematocrit 31L, Mean Corpuscular Volume 90, Mean Corpuscular Hemoglobin 30, Mean Corpuscular Hemoglobin Concent 33, Red Cell Distribution Width 14.7H, Platelet Count 217, Mean Platelet Volume 9.7, Immature Granulocyte % (Auto) 0, Neutrophils (%) (Auto) 80H, Lymphocytes (%) (Auto) 11L, Monocytes (%) (Auto) 8, Eosinophils (%) (Auto) 0, Basophils (%) (Auto) 0, Neutrophils # (Auto) 6.6, Lymphocytes # (Auto) 0.9L, Monocytes # (Auto) 0.7, Eosinophils # (Auto) 0.0, Basophils # (Auto) 0.0, Immature Granulocyte # (Auto) 0.0, Sodium Level 139, Potassium Level 3.2L, Chloride Level 106, Carbon Dioxide Level 19L, Anion Gap 14, Blood Urea Nitrogen 15, Creatinine 0.74, Estimat Glomerular Filtration Rate 78, BUN/Creatinine Ratio 20, Glucose Level 99, Calcium Level 7.9L, Triglycerides Level 119, Cholesterol Level 186, LDL Cholesterol Direct 123, VLDL Cholesterol 24, HDL Cholesterol 52 Assessment/Plan Assessment/Plan Admission Dx Sepsis UTI Altered mental status History of pacemaker placement HTN Advanced age Frailty GERD Depression with anxiety Assessment and Plan Sepsis likely due to UTI -UA positive in ER -lactic acid elevated at 2.08 yesterday, decreased to 1.65 today -1L NS bolus yesterday, on NS 125mL/hr -continue ceftriaxone (day2/6) and Zosyn (day 26) -WBC of 8.2 today -awaiting urine and blood culture, will review when returned and make changes to antibiotics if needed -continue to monitor Altered mental status -head CT done in ER showed, according to radiology, stable CT scan of the brain with no evidence of acute intracranial process. there is no dense vessel sign. chronic small vessel ischemic disease and leukoaraiosis. -mental status improved from yesterday -will continue to monitor for change in mental status w/ sepsis treatment History of pacemaker placement -currently on Eliquis for anticoagulation, continue current medication Hypokalemia -potassium of 3.2 today -potassium supplementation to be started today Hypertension -continue to hold home medications Advanced age w/ frailty - will need to start PT when able GERD -start Protonix Depression w/ anxiety -can start home SSRI when able DVT prophylaxis w/ SCDs and Eliquis GI prophylaxis covered by PPI for GERD Normal diet Code status: DNR Admission Dx Sepsis UTI Altered mental status History of pacemaker placement HTN Advanced age Frailty GERD Depression with anxiety Clinical Quality Measures Admission Status Admission Dx Sepsis UTI Altered mental status History of pacemaker placement HTN Advanced age Frailty GERD Depression with anxiety Supervisory-Addendum Brief Verification & Attestation Participated in pt care: history, MDM, physical Personally performed: exam, history, MDM, supervision of care Care discussed with: Medical Student Procedures: n/a Results interpretation: Verified all documentation Sepsis Urinary tract infection Chronic Hypertension Hypokalemia Confusion Gastroesophageal Reflux - chronic Generalized Weakness Frailty Advanced Age Hx of valve replacement surgery Sepsis due to Urinary tract infection - pt given fluid bolus in the ER - additional bolus with increase in fluid rate yesterday - continue with fluids - decrease rate from 125 to 100 - pt given rocephin in the ER - antibiotic selection broadened to Zosyn - discussed pt the pt's spouse and son Morgan, due to her advanced age and frailty she is at higher risk of in-hospital - they are aware of this and want to have her DNR/DNI status. Chronic Hypertension - pt hypotensive on admission - will monitor pressure and slowly add back medication as indicated since her last hospitalization was for hypertensive encephalopathy Hypokalemia - supplement orally today Confusion - due to acute illness. Gastroesophageal Reflux - chronic - restart ppi therapy Generalized Weakness with Frailty - supportive care, will start therapy when pt is more alert and interactive and able to follow commands. Advanced Age Hx of valve replacement surgery dvt prophylaxis with scd's and eliquis gi prophylaxis with ppi therapy YARA IVORY Apr 13, 2022 07:37 ZEV FARRAR MD Apr 13, 2022 12:50
[2022-04-13 07:44] VITALS: BP 145/67
[2022-04-13] MEDS: NS IV 1000 ML 1,000 ML IV SCH ×3 (07:48→16:05)
[2022-04-13] MEDS: PIPERACILLIN SODIUM/TAZOBACTAM 4.5 GM in NS (IVPB) 100 ML IV SCH ×2 (07:55→16:05)
[2022-04-13] MEDS: LOSARTAN 100 MG (COZAAR) TABLET PO SCH (09:42)
[2022-04-13] MEDS: APIXABAN 2.5 MG (ELIQUIS) TABLET PO SCH ×2 (09:42→20:42)
[2022-04-13 11:24] VITALS: BP 135/61
[2022-04-13] MEDS: cefTRIAXone 1 GM IV (PRE-MIX) 50 ML IV SCH (13:13)
[2022-04-13] MEDS ORDERED: LOSA100T57 PO (14:25)
[2022-04-13] MEDS ORDERED: MTP25TSR PO (14:25)
[2022-04-13 15:32] VITALS: BP 156/60
[2022-04-13 19:10] VITALS: BP 138/76
[2022-04-14] VITALS: BP 138/67
[2022-04-14] MEDS: PIPERACILLIN SODIUM/TAZOBACTAM 4.5 GM in NS (IVPB) 100 ML IV SCH ×3 (00:41→16:02)
[2022-04-14 04:00] VITALS: BP 144/67
[2022-04-14 07:22] LABS: HEMATOCRIT 31 % (35-52); MEAN CORPUSCULAR HEMOGLOBIN 30 pg (25-34); MEAN CORPUSCULAR HGB CONC 33 g/dL (32-36); MEAN CORPUSCULAR VOLUME 92 fL (80-99); MEAN PLATELET VOLUME 10.4 fL (9.0-12.2); PLATELET COUNT 180 10^3/uL (130-400); WHITE BLOOD COUNT 5.8 10^3/uL (4.3-11.0)
[2022-04-14 07:28] LABS: ALBUMIN 3.2 GM/DL (3.2-4.5); POTASSIUM 3.2 MMOL/L (3.6-5.0)
[2022-04-14 07:29] LABS: CALCIUM 7.9 MG/DL (8.5-10.1)
[2022-04-14 07:30] LABS: TOTAL PROTEIN 5.8 GM/DL (6.4-8.2)
[2022-04-14 07:32] LABS: BILIRUBIN,TOTAL 0.5 MG/DL (0.1-1.0)
[2022-04-14 07:34] LABS: CREATININE SERUM 0.81 MG/DL (0.60-1.30)
--- NOTE | 2022-04-14 07:36 | Progress Note ---
Subjective Subjective Date Seen by Provider: Apr 14, 2022 Time Seen by Provider: 08:40 Ashley Nguyen is an 86y/o F beings seen for follow up due to UTI. Pt was awake and alert this morning when I entered the room. She did not seem as confused this morning and was able to answer all my questions. States that she feels better than she did yesterday. Has not yet gotten up out of bed. Says that she slept well last night. Endorses having a good appetite and drinking fluids. Has not yet had a BM. Denies any pain. Review of Systems General: No Chills, No Other (fever) HEENT: No Visual Changes, No Eye Pain Pulmonary: No Dyspnea, No Cough Cardiovascular: No: Chest Pain, Palpitations Gastrointestinal: No: Nausea, Vomiting, Abdominal Pain Genitourinary: Other (catheter in place) Musculoskeletal: No: neck pain, back pain Neurological: No: Change in speech, Confusion All Other Systems Reviewed All Other Systems Reviewed: Yes Objective Exam Vital Signs Vital Signs Date Time Temp Pulse Resp B/P (MAP) Pulse Ox O2 Delivery O2 Flow Rate FiO2 04/14/22 04:00 37.1 56 20 144/67 (92) 98 Room Air 04/14/22 00:00 37.0 54 20 138/67 (90) 98 Room Air 04/13/22 20:00 Room Air 04/13/22 19:10 36.8 54 20 138/76 (96) 98 Room Air 04/13/22 15:32 37.2 59 20 156/60 (92) 99 Room Air 04/13/22 11:24 37.6 63 20 135/61 (85) 98 Room Air 04/13/22 08:00 Room Air 04/13/22 07:44 37.5 63 20 145/67 (93) 97 Room Air I & O 04/14/22 07:00 Intake Total 1550 ml Output Total 1050 ml Balance 500 ml General Appearance: No Apparent Distress, Thin HEENT: PERRL/EOMI; No Photophobia Neck: Non Tender, Supple Respiratory: Lungs Clear, Normal Breath Sounds, No Accessory Muscle Use, No Respiratory Distress Cardiovascular: Regular Rate, Rhythm, No Edema, Normal Peripheral Pulses Gastrointestinal: Non Tender, Soft Rectal: Deferred Extremity: Non Tender, No Pedal Edema Neurologic/Psychiatric: Alert, Normal Mood/Affect Skin: Normal Color, Warm/Dry Lymphatic: No Adenopathy Results Lab Laboratory Tests 04/14/22 06:18: White Blood Count 5.8, Red Blood Count 3.33L, Hemoglobin 10.0L, Hematocrit 31L, Mean Corpuscular Volume 92, Mean Corpuscular Hemoglobin 30, Mean Corpuscular Hemoglobin Concent 33, Red Cell Distribution Width 15.1H, Platelet Count 180, Mean Platelet Volume 10.4, Sodium Level 137, Potassium Level 3.2L, Chloride Level 107, Calcium Level 7.9L, Corrected Calcium 8.5, Albumin 3.2 Microbiology 04/12/22 Blood Culture - Preliminary, Resulted No growth 04/12/22 Urine Culture - Preliminary, Resulted Escherichia coli Assessment/Plan Assessment/Plan Admission Dx Sepsis UTI Altered mental status History of pacemaker placement HTN Advanced age Frailty GERD Depression with anxiety Assessment and Plan Sepsis likely due to UTI -UA positive in ER -lactic acid elevated at 2.08 on 04/12, decreased to 1.65 04/13 -1L NS bolus on 04/12, on NS 100mL/hr currently -continue ceftriaxone (day36) and Zosyn (day 3) -WBC of 5.8, yesterday was 8.2 -blood cultures came back negative, urine culture grew e.coli, awaiting sensitivities -continue to monitor Confusion -head CT done in ER showed, according to radiology, stable CT scan of the brain with no evidence of acute intracranial process. there is no dense vessel sign. chronic small vessel ischemic disease and leukoaraiosis. -mental status improved from yesterday -will continue to monitor for change in mental status w/ sepsis treatment Hypokalemia -potassium of 3.2 today, same as yesterday -potassium supplementation to be continued Hypertension -has been restarted on losartan Advanced age w/ frailty - her condition has improved and she seems able to follow commands, start PT today GERD -continue Protonix Depression w/ anxiety -can start home SSRI when able History of pacemaker placement -currently on Eliquis for anticoagulation, continue current medication DVT prophylaxis w/ SCDs and Eliquis GI prophylaxis covered by PPI for GERD Normal diet Code status: DNR Admission Dx Sepsis UTI Altered mental status History of pacemaker placement HTN Advanced age Frailty GERD Depression with anxiety Clinical Quality Measures Admission Status Admission Dx Sepsis UTI Altered mental status History of pacemaker placement HTN Advanced age Frailty GERD Depression with anxiety Supervisory-Addendum Brief Verification & Attestation Participated in pt care: history, MDM, physical Personally performed: exam, history, MDM, supervision of care Care discussed with: Medical Student Procedures: n/a Results interpretation: Verified all documentation Agree with student note Ashley is much improved, almost back to her usual state of mentation, still a little flat, slow to respond. Pt's appetite is good. Resume some more of her home medications, monitor pressures, do not want to push her blood pressure too low, and her metoprolol cannot be re-initiated due to her low heart rate. Check labs in morning, replace potassium today YARA IVORY Apr 14, 2022 07:36 ZEV FARRAR MD Apr 14, 2022 21:20
[2022-04-14 08:06] VITALS: BP 180/75
[2022-04-14] MEDS ORDERED: KCL 20 MEQ TAB (K-DUR) PO ONE (08:30)
[2022-04-14] MEDS ORDERED: doxAzosin 1 MG (CARDURA) TAB PO ONE (08:30)
[2022-04-14] MEDS: APIXABAN 2.5 MG (ELIQUIS) TABLET PO SCH ×2 (08:59→19:51)
[2022-04-14] MEDS: NS IV 1000 ML 1,000 ML IV SCH (09:00)
[2022-04-14] MEDS: LOSARTAN 100 MG (COZAAR) TABLET PO SCH (09:00)
--- NOTE | 2022-04-14 11:39 | Physical Therapy Evaluation ---
PT Evaluation-General Medical Diagnosis Admission Date Apr 12, 2022 at 14:03 Medical Diagnosis: AMS/UTI Onset Date: Apr 12, 2022 Therapy Diagnosis Therapy Diagnosis: debility/weakness Height/Weight Height (Feet): 5 Height (Inches): 3.00 Weight (Pounds): 82 Weight (Ounces): 6.4 Precautions Precautions/Isolations: Fall Prevention, Standard Precautions Referral Physician: Leeann Reason for Referral: Evaluation/Treatment Medical History Pertinent Medical History: Arthritis, GERD, HTN, OA Current History EMS secondary to AMS and weakness Reviewed History: Yes Social History Home: Single Level Current Living Status: Spouse Entry Into Home: Level Entry PT Steps Inside Home: 12 (basement) Prior Prior Level of Function SCALE: Activities may be completed with or without assistive devices. 9-Txmkctdzpm-feyamaz completes the activity by him/herself with no assistance from a helper. 5-Set-up or Clean-up Assistance-helper sets up or cleans up; patient completes activity. [place] assists only prior to or following the activity. 4-Supervision or Touching Assistance-helper provides verbal cues and/or touching/steadying and/or contact guard assistance as patient completes activity. Assistance may be provided throughout the activity or intermittently. 3-Partial/Moderate Assistance-helper does LESS THAN HALF the effort. [place] lifts, holds or supports trunk or limbs, but provides less than half the effort. 2-Substantial/Maximal Assistance-helper does MORE THAN HALF the effort. [place] lifts or holds trunk or limbs and provides more than half the effort. 4-Zetzvgivy-jpwezt does ALL the effort. Patient does none of the effort to complete the activity. Or, the assistance of 2 or more helpers is required for the patient to complete the activity. If activity was not attempted, code reason: 7-Patient Refused. 9-Not Applicable-not attempted and the patient did not perform the activity before the current illness, exacerbation or injury. 10-Not Attempted due to Environmental Limitations-(lack of equipment, weather restraints, etc.). 88-Not Attempted due to Medical Conditions or Safety Concerns. Bed Mobility: 6 Transfers (B,C,W/C): 6 Gait: 6 Stairs: 6 Indoor Mobility (Ambulation): Independent Stairs: Independent Prior Devices Use: None PT Evaluation-Current Subjective Patient agrees to PT. She remembers this PT from prior admit. Objective Patient Orientation: Normal For Age Attachments: IV ROM/Strength ROM Lower Extremities bilateral LE WFL Strength Lower Extremities 4-/5 grossly bilateral LE Integumentary/Posture Bowel Incontinence: No Bladder Incontinence: No Posture WFL Neuromuscular (Tone, Coordination, Reflexes) grossly intact Sensory Vision: Functional Hearing: Impaired Transfers Lying to Sitting/Side of Bed(Q: 6 Sit to Stand (QC): 4 Chair/Zmw-yx-Agmsa Xfer(QC): 4 Gait Mode of Locomotion: Walk Anticipated Mode of Locomotion: Walk Walk 10 feet (QC): 4 Walk 50 ft with 2 Turns(QC): 4 Walk 150 ft (QC): 4 Distance: 500' Gait Assistive Device: FWW Comments/Gait Description slow, steady, functional gait sequence Balance Sitting Static: Normal Sitting Dynamic: Normal Standing Static: Good Standing Dynamic: Good Assessment/Needs 86 y.o. female, will be seen short term by skilled PT to ensure safe return to home with spouse at maximum LOF. Rehab Potential: Fair PT Retirement Goals Retirement Goals PT Retirement Goals Time Frame: Apr 23, 2022 Roll Left & Right (QC): 6 Sit to Lying (QC): 6 Lying-Sitting on Side/Bed(QC): 6 Sit to Stand (QC): 6 Chair/Oio-co-Xpfwx Xfer(QC): 6 Toilet Transfer (QC): 6 Walk 10 feet (QC): 6 Walk 50ft with 2 Turns (QC): 6 Walk 150 ft (QC): 6 PT Plan Problem List Problem List: Activity Tolerance, Safety, Gait, Transfer, Bed Mobility Treatment/Plan Treatment Plan: Continue Plan of Care Treatment Plan: Bed Mobility, Education, Functional Activity [place], Functional Strength, Gait, Safety, Therapeutic Exercise, Transfers Treatment Duration: Apr 23, 2022 Frequency: 6 times per week Estimated Hrs Per Day: .25 hour per day Patient and/or Family Agrees t: Yes Discharge Recommendations Therapy Discharge Recommendati: Home & Family Time/GCodes Time In: 1025 Time Out: 1040 Total Billed Treatment Time: 15 Total Billed Treatment 1 visit EVModC 15 min NICKY VALADEZ PT Apr 14, 2022 11:39
--- NOTE | 2022-04-14 11:56 | Physician Query Clarification ---
Physician Query-General Query to Physician: The medical record reflects the following clinical evidence: Clinical Indicators: Sudden onset of confusion per , Unable to follow commands per EMS, Per nursing admission assessment GCS of 12 that improved with 15 after two days of medical treatment for UTI/Sepsis, CT head. no findings that would explain change in Mental status, Risk Factor(s): Advanced age, UTI with Sepsis, Treatment: Management of UTI/Sepsis: IV Fluids, IV ABX, CT Head, monitoring of neuro status 1. Metabolic (Septic) encephalopathy, Present on admission, improved 2. Other explanation of clinical findings 3. Unable to determine (no explanation for clinical findings) Please clarify and document your clinical opinion in the progress notes and discharge summary including the definitive and/or presumptive diagnosis, (suspected or probable), related to the above clinical findings. Please include clinical findings supporting your diagnosis. Flavia Crowe RN, MSN Clinical Vertica Architect [phone] [email or web address] PHYSICIAN RESPONSE: Based on the clinical findings in the record, please respond to the query above on this document as an addendum. Physician Response: Metabolic (Septic) encephalopathy, Present on admission, improved Physician Response Metabolic (Septic) encephalopathy, Present on admission, improved If you have questions please contact: Shake Out Worker: Ext: Thank you for your time and cooperation. Clinical Vertica Architect/Shake Out Worker This is a permanent part of the medical record FLAVIA CROWE Apr 14, 2022 11:56 ZEV FARRAR MD Apr 19, 2022 15:41
[2022-04-14 12:00] VITALS: BP 132/63
[2022-04-14] MEDS: cefTRIAXone 1 GM IV (PRE-MIX) 50 ML IV SCH (15:28)
[2022-04-14 15:32] VITALS: BP 143/67
[2022-04-14 19:36] VITALS: BP 177/70
[2022-04-14] MEDS: doxAzosin 4 MG (CARDURA) TAB PO SCH (19:51)
[2022-04-15] VITALS (7 sets, daily range): BP systolic 149–188; BP diastolic 68–79
[2022-04-15] MEDS: PIPERACILLIN SODIUM/TAZOBACTAM 4.5 GM in NS (IVPB) 100 ML IV SCH ×4 (01:12→23:09)
[2022-04-15 05:19] LABS: HEMATOCRIT 31 % (35-52); HEMOGLOBIN 10.2 g/dL (11.5-16.0); MEAN CORPUSCULAR HEMOGLOBIN 30 pg (25-34); MEAN CORPUSCULAR HGB CONC 33 g/dL (32-36); MEAN CORPUSCULAR VOLUME 90 fL (80-99); MEAN PLATELET VOLUME 10.1 fL (9.0-12.2); PLATELET COUNT 201 10^3/uL (130-400); WHITE BLOOD COUNT 5.2 10^3/uL (4.3-11.0)
[2022-04-15 05:43] LABS: CALCIUM 8.4 MG/DL (8.5-10.1); CREATININE SERUM 0.75 MG/DL (0.60-1.30); MAGNESIUM 1.9 MG/DL (1.6-2.4); POTASSIUM 4.1 MMOL/L (3.6-5.0)
--- NOTE | 2022-04-15 06:44 | Progress Note ---
Subjective Subjective Ashley Nguyen is an 86y/o F beings seen for follow up due to UTI. Pt was asleep and awoke easily when I entered the room. She reports that she is doing well this morning. Still needing assistance to go to the bathroom. Denies any pain w/ urination. Endorses sleeping well last night and said that her appetites was good. Review of Systems General: No Chills, No Other (fever) HEENT: No Visual Changes, No Eye Pain Pulmonary: No Dyspnea, No Cough Cardiovascular: No: Chest Pain, Palpitations Gastrointestinal: No: Nausea, Vomiting, Abdominal Pain Genitourinary: Other (catheter in place) Musculoskeletal: No: neck pain, back pain Neurological: No: Change in speech, Confusion All Other Systems Reviewed All Other Systems Reviewed: Yes Objective Exam Vital Signs Vital Signs Date Time Temp Pulse Resp B/P (MAP) Pulse Ox O2 Delivery O2 Flow Rate FiO2 04/15/22 03:49 37.4 65 16 151/69 (96) 98 Room Air 04/15/22 00:00 37.0 86 16 173/75 (107) 97 Room Air 04/14/22 20:00 Room Air 04/14/22 19:36 37.4 67 20 177/70 (105) 98 Room Air 04/14/22 15:32 37.4 64 18 143/67 (92) 98 Room Air 04/14/22 12:00 37.6 67 20 132/63 (86) 97 Room Air 04/14/22 08:06 37.4 68 20 180/75 (110) 98 Room Air 04/14/22 08:00 Room Air I & O 04/15/22 07:00 Intake Total 2730 ml Output Total 280 ml Balance 2450 ml General Appearance: No Apparent Distress, Thin HEENT: PERRL/EOMI; No Photophobia Neck: Non Tender, Supple Respiratory: Lungs Clear, Normal Breath Sounds, No Accessory Muscle Use, No Respiratory Distress Cardiovascular: Regular Rate, Rhythm, No Edema, Normal Peripheral Pulses Gastrointestinal: Non Tender, Soft Rectal: Deferred Extremity: Non Tender, No Pedal Edema Neurologic/Psychiatric: Alert, Normal Mood/Affect Skin: Normal Color, Warm/Dry Lymphatic: No Adenopathy Results Lab Laboratory Tests 04/15/22 04:54: White Blood Count 5.2, Red Blood Count 3.46L, Hemoglobin 10.2L, Hematocrit 31L, Mean Corpuscular Volume 90, Mean Corpuscular Hemoglobin 30, Mean Corpuscular Hemoglobin Concent 33, Red Cell Distribution Width 15.0H, Platelet Count 201, Mean Platelet Volume 10.1, Sodium Level 142, Potassium Level 4.1, Chloride Level 109H, Carbon Dioxide Level 20L, Anion Gap 13, Blood Urea Nitrogen 16, Creatinine 0.75, Estimat Glomerular Filtration Rate 77, BUN/Creatinine Ratio 21, Glucose Level 96, Calcium Level 8.4L, Magnesium Level 1.9 Microbiology 04/12/22 Blood Culture - Preliminary, Resulted No growth 04/12/22 Urine Culture - Final, Complete Escherichia coli Assessment/Plan Assessment/Plan Admission Dx Sepsis UTI Altered mental status History of pacemaker placement HTN Advanced age Frailty GERD Depression with anxiety Assessment and Plan Sepsis likely due to UTI -UA positive in ER -lactic acid elevated at 2.08 on 04/12, decreased to 1.65 04/13 -1L NS bolus on 04/12, on NS 50mL/hr currently -blood cultures came back negative, urine culture grew e.coli-pansensitive -can discontinue ceftriaxone (day36) and Zosyn (day 3) due to culture results -start oral antibiotics (Augmentin) -WBC of 5.2 today -continue to monitor Confusion -head CT done in ER showed, according to radiology, stable CT scan of the brain with no evidence of acute intracranial process. there is no dense vessel sign. chronic small vessel ischemic disease and leukoaraiosis. -mental status improved -will continue to monitor for change in mental status w/ sepsis treatment Hypokalemia (improved) -potassium of 4.1 today, was 3.2 yesterday -potassium supplementation not needed today Hypertension -has been restarted on losartan and doxazosin -HR still in the 60s, will hold off on metoprolol Advanced age w/ frailty - her condition has improved and she seems able to follow commands, started PT -continue PT GERD -continue Protonix Depression w/ anxiety -can start home SSRI when able History of pacemaker placement -currently on Eliquis for anticoagulation, continue current medication DVT prophylaxis w/ SCDs and Eliquis GI prophylaxis covered by PPI for GERD Normal diet Code status: DNR If she continues to improve possible discharge tomorrow Admission Dx Sepsis UTI Altered mental status History of pacemaker placement HTN Advanced age Frailty GERD Depression with anxiety Clinical Quality Measures Admission Status Admission Dx Sepsis UTI Altered mental status History of pacemaker placement HTN Advanced age Frailty GERD Depression with anxiety YARA IVORY Apr 15, 2022 06:44
[2022-04-15] MEDS: LOSARTAN 100 MG (COZAAR) TABLET PO SCH (08:19)
[2022-04-15] MEDS: APIXABAN 2.5 MG (ELIQUIS) TABLET PO SCH ×2 (08:19→20:03)
--- NOTE | 2022-04-15 11:04 | Physical Therapy Daily Note ---
PT Daily Note-Current Subjective Patient agrees to PT. Patient voices disappointment in not going home today. Mental Status Patient Orientation: Normal For Age Attachments: IV Transfers SCALE: Activities may be completed with or without assistive devices. 9-Wiyusifity-qsuvksj completes the activity by him/herself with no assistance from a helper. 5-Set-up or Clean-up Assistance-helper sets up or cleans up; patient completes activity. [place] assists only prior to or following the activity. 4-Supervision or Touching Assistance-helper provides verbal cues and/or touching/steadying and/or contact guard assistance as patient completes activity. Assistance may be provided throughout the activity or intermittently. 3-Partial/Moderate Assistance-helper does LESS THAN HALF the effort. [place] lifts, holds or supports trunk or limbs, but provides less than half the effort. 2-Substantial/Maximal Assistance-helper does MORE THAN HALF the effort. [place] lifts or holds trunk or limbs and provides more than half the effort. 8-Fygmgcdkr-mdocrs does ALL the effort. Patient does none of the effort to complete the activity. Or, the assistance of 2 or more helpers is required for the patient to complete the activity. If activity was not attempted, code reason: 7-Patient Refused. 9-Not Applicable-not attempted and the patient did not perform the activity before the current illness, exacerbation or injury. 10-Not Attempted due to Environmental Limitations-(lack of equipment, weather restraints, etc.). 88-Not Attempted due to Medical Conditions or Safety Concerns. Sit to Lying (QC): 6 Lying to Sitting/Side of Bed(Q: 6 Sit to Stand (QC): 6 Gait Training Distance: 750' Walk 10 feet (QC): 6 Walk 50 ft with 2 Turns(QC): 6 Walk 150 ft (QC): 6 Gait Assistive Device: FWW safe and functional with no deviation Assessment Patient instructed to ambulate PRN in hallway with spouse or nursing due to patient is currently at independent PLOF with all gross motor skills safely. PT to dismiss patient from services at this time. RN notified. PT Correction Goals Finance Director Goals PT Finance Director Goals Time Frame: Apr 23, 2022 Roll Left & Right (QC): 6 Sit to Lying (QC): 6 Lying-Sitting on Side/Bed(QC): 6 Sit to Stand (QC): 6 Chair/Pxh-zn-Vbqrr Xfer(QC): 6 Toilet Transfer (QC): 6 Walk 10 feet (QC): 6 Walk 50ft with 2 Turns (QC): 6 Walk 150 ft (QC): 6 PT Plan Treatment/Plan Treatment Plan: Discontinue PT, goals met Treatment Plan: Bed Mobility, Education, Functional Activity [place], Functional Strength, Gait, Safety, Therapeutic Exercise, Transfers Treatment Duration: Apr 23, 2022 Frequency: 6 times per week Estimated Hrs Per Day: .25 hour per day Patient and/or Family Agrees t: Yes Time/GCodes Time In: 1041 Time Out: 1053 Total Billed Treatment Time: 12 Total Billed Treatment 1 visit FA 12 min NICKY VALADEZ PT Apr 15, 2022 11:04
[2022-04-15] MEDS: NS IV 1000 ML 1,000 ML IV SCH (13:22)
[2022-04-15] MEDS: cefTRIAXone 1 GM IV (PRE-MIX) 50 ML IV SCH (13:23)
[2022-04-15] MEDS: doxAzosin 4 MG (CARDURA) TAB PO SCH (20:03)
[2022-04-16 03:07] VITALS: BP 191/65
[2022-04-16] MEDS ORDERED: meTOprolol TARTRATE 50 MG (LOPRESSOR) TAB PO ONE (03:15)
[2022-04-16] MEDS ORDERED: meTOprolol TARTRATE 50 MG (LOPRESSOR) TAB ONE (03:22)
[2022-04-16] MEDS: PIPERACILLIN SODIUM/TAZOBACTAM 4.5 GM in NS (IVPB) 100 ML IV SCH (07:46)
[2022-04-16 08:05] VITALS: BP 138/63
[2022-04-16] MEDS: LOSARTAN 100 MG (COZAAR) TABLET PO SCH (08:50)
[2022-04-16] MEDS: APIXABAN 2.5 MG (ELIQUIS) TABLET PO SCH (08:50)
--- NOTE | 2022-04-16 09:22 | Discharge Summary ---
Diagnosis/Chief Complaint Date of Admission Apr 12, 2022 at 14:03 Date of Discharge Reason Hospital Visit Pt is an 86 y/o female who is well known to me from clinic. Per her 's report - she started to have weakness while they were out shopping, they went home and she started to become confused and less responsive. He was concerned about a possible stroke so they called EMS to eval her and take her to the ER. In the ER she was found to have a urinary tract infection, CT of head was negative for acute stroke, and she was therefore admitted to the hospital for treatment of UTI. Between the admission and this music writer's eval of pt, she was found to be septic with an elevated Lactic Acid level and sepsis protocol was initiated. Discharge Summary Discharge Physical Examination Allergies: Coded Allergies: bacitracin (Verified Allergy, Mild, RASH, 10/15/19) lidocaine (Verified Allergy, Mild, RASH, 10/15/19) neomycin (Verified Allergy, Mild, RASH, 10/15/19) polymyxin B (Verified Allergy, Mild, RASH, 10/15/19) pramoxine (Verified Allergy, Mild, RASH, 10/15/19) Vitals & I&Os Vital Signs Date Time Temp Pulse Resp B/P (MAP) Pulse Ox O2 Delivery O2 Flow Rate FiO2 04/16/22 08:05 36.9 54 16 138/63 (88) 98 Room Air Discharge Instructions to patient/family Please see electronic discharge instructions given to patient. Discharge Medications Reviewed and agree with Discharge Medication list on patient's Discharge Instruction sheet ZEV FARRAR MD Apr 16, 2022 09:22
[2022-04-16] MEDS ORDERED: MTP25TSR PO (09:25)
[2022-04-16] MEDS ORDERED: AMOX-355 PO (09:26)
--- NOTE | 2022-04-16 09:29 | Discharge Inst-Simple/Standard ---
Discharge Inst-Standard Reconcile Patient Problems Problems Reviewed?: Yes Discharge Medications New, Converted or Re-Newed RX: Transmitted to Pharmacy Patient Instructions/Follow Up Plan of Care/Instructions/FU: 1 wk follow up with lety asencio Activity as Tolerated: Yes Discharge Diet: Regular Diet Health Concerns: hypertension urinary tract infection weakness advanced age dizziness Return to The Hospital For: any concern for worsening symptoms, dizziness or confusion or lifethreatening illness or injury Medication List: Active Scripts Active Augmentin 500-125 Tablet (Amoxicillin/Potassium Clav) 500 Mg-125 Mg Tablet 1 Each PO BID Metoprolol Succinate 25 Mg Tab.er.24h 25 Mg PO BID one tab twice daily Reported Losartan Potassium 100 Mg Tablet 100 Mg PO DAILY Doxazosin Mesylate 4 Mg Tablet 2 Mg PO HS TAKES OF A 4MG TAB Melatonin 10 Mg Tablet 10 Mg PO HS PRN Eliquis (Apixaban) 2.5 Mg Tablet 2.5 Mg PO BID Simvastatin 10 Mg Tablet 10 Mg PO HS Multiple Vitamins (Multivitamin) 1 Each Tablet 1 Each PO DAILY Preservision Areds Tablet (Vit A/Vit C/Vit E/Zinc/Copper) 1 Each Tablet 1 Each PO DAILY Acetaminophen ER (Acetaminophen) 650 Mg Tablet.er 650 Mg PO DAILY PRN Acetaminophen ER (Acetaminophen) 650 Mg Tablet.er 650 Mg PO HS Calcium Citrate - Vit D3 Tab (Calcium Citrate/Vitamin D3) 1 Each Tablet 1 Tab PO DAILY Escitalopram Oxalate 5 Mg Tablet 5 Mg PO HS Famotidine 40 Mg Tablet 40 Mg PO HS My orders: Orders - ZEV FARRAR MD Patient Visit (04/15/22 ) Functional Activities, Ea 15 (04/15/22 ) Transfer - Bed/Room/Location (04/15/22 13:54) Metoprolol Tartrate (Ir) Tab (Lopressor (04/16/22 03:15) Metoprolol Tartrate (Ir) Tab (Lopressor (04/16/22 03:22) Attending Discharge Inpt/Inobs (04/16/22 09:22) ZEV FARRAR MD Apr 16, 2022 09:29
--- NOTE | 2022-04-16 09:39 | D/C HH Face to Face Order ---
D/C Face to Face Orders Reconcile Patient Problems Problems Reviewed?: Yes Instructions for Patient [facility] - resumption of care Patient Instructions/FollowUp: 1 wk follow up with lety asencio in one week Physician to follow Patient: y Discharge Diet for Home: Regular Diet Patient Problems: hypertension weakness urinary tract infection advanced age with frailty underweight Goals for Patient: increased strength, improved weight Patient Data-Allergies,Ht & Wt Patient Allergies: Coded Allergies: bacitracin (Verified Allergy, Mild, RASH, 10/15/19) lidocaine (Verified Allergy, Mild, RASH, 10/15/19) neomycin (Verified Allergy, Mild, RASH, 10/15/19) polymyxin B (Verified Allergy, Mild, RASH, 10/15/19) pramoxine (Verified Allergy, Mild, RASH, 10/15/19) Height (Feet): 5 Height (Inches): 3.00 Weight (Pounds): 82 Weight (Ounces): 6.4 Home Health Need/Face to Face Date of Face to Face: Apr 16, 2022 Clinical Findings: Generalized weakness and fatigue, Muscle weakness I have seen Pt mnuk-hy-vfdp: Yes Discharged To: Home Diagnosis/Conditions: hypertension weakness urinary tract infection advanced age with frailty underweight Patient is Homebound due to: Muscle weakness Homebound Status Due to the above stated illness, injury or surgical procedure (medical condition or diagnosis) and associated clinical findings, the patient is homebound because of his/her inability to leave home except with aid of a supportive device and/or person AND leaving the home requires a considerable and taxing effort or is medically contraindicated. Pt req the following assistanc: Walker Home Health Nursing Orders Home Health Services Order: Nursing Services, Physical Therapy-Evaluate & Treat Home Health Infusion Therapy Line Start Date: Apr 12, 2022 Therapy Orders Therapy Specific Orders: Eval assistive deivces, Teach enviro modifications/safety, Increase strength/endurance Certify Stmt I certify that this patient is under my care and that I, a nurse practitioner or a physician; a field administrative assistant working with me, had a face to face encounter that - meets the physician face to face encounter requirements with this patient as dated. ZEV FARRAR MD Apr 16, 2022 09:39
[2022-04-16 10:55] VITALS: BP 138/63
== END 2022-04-16 10:55 | disposition home health service (06) | DRG 871 ==
LOC: EDUNIT# 12:07 → ER 12:11 → 4TH 14:03
PROVIDERS: ADMIT Family Medicine; ATTEND Family Medicine
DX: A41.9 Sepsis, unspecified organism (principal); G93.41 Metabolic encephalopathy; N39.0 Urinary tract infection, site not specified; I48.91 Unspecified atrial fibrillation; I10 Essential (primary) hypertension; F41.8 Other specified anxiety disorders; R54 Age-related physical debility; Z66 Do not resuscitate; E78.00 Pure hypercholesterolemia, unspecified; K21.9 Gastro-esophageal reflux disease without esophagitis; M81.0 Age-related osteoporosis without current pathological fracture; M19.91 Primary osteoarthritis, unspecified site; H35.30 Unspecified macular degeneration; E87.6 Hypokalemia; Z79.01 Long term (current) use of anticoagulants; Z95.2 Presence of prosthetic heart valve; Z95.0 Presence of cardiac pacemaker; Z88.1 Allergy status to other antibiotic agents
CPT/HCPCS: 36415; 51702; 70450; 71045; 80048; 80053; 80061; 81000; 82947; 83605; 83735; 84484; 85025; 85027; 85379; 85610; 85730; 87040; 87077; 87088; 87186; 93005; 93041; 96361; 96374

== ENCOUNTER 2022-06-03 11:10 | Observation (INO) | payer MEDICARE, OTHER ==
[~2022-06-03] VITALS: Ht 165 cm; Wt 43.8 kg
[~2022-06-03 11:10] MED LIST changes: +AMOX-355 PO
--- NOTE | 2022-06-03 11:19 | ED Neurological Problem ---
General Chief Complaint: Neuro-Stroke Like Symptoms Stated Complaint: POSSIBLE STROKE Source: patient Exam Limitations: no limitations History of Present Illness Date Seen by Provider: Jun 03, 2022 Time Seen by Provider: 11:19 Initial Comments to ER by EMS from home after noticed some confusion and difficulty speaking after their morning walk at about 10 AM. He says she occasionally gets confused from time to time but it is very brief and resolves in a short period of time. She still has at home. This morning they went for a walk and she was at baseline. Upon returning home he went to move the car while she waited on the porch and when he returned back to her she was yelling at him asking where he had been. On arrival to ER by EMS she was nonverbal. He states that she does have some troubles with her blood pressure going very high and then very low. Timing/Duration: 4-6 hours Associated Symptoms: confusion Allergies and Home Medications Allergies Coded Allergies: bacitracin (Verified Allergy, Mild, RASH, 10/15/19) lidocaine (Verified Allergy, Mild, RASH, 10/15/19) neomycin (Verified Allergy, Mild, RASH, 10/15/19) polymyxin B (Verified Allergy, Mild, RASH, 10/15/19) pramoxine (Verified Allergy, Mild, RASH, 10/15/19) Patient Home Medication List Home Medication List Reviewed: Yes Acetaminophen (Acetaminophen ER) 650 Mg Tablet.er, 650 MG PO HS, (Reported) Entered as Reported by: CRYSTAL NEVES on 04/24/17 0925 Acetaminophen (Acetaminophen ER) 650 Mg Tablet.er, 650 MG PO DAILY PRN for PAIN- MILD, (Reported) Entered as Reported by: CRYSTAL NEVES on 04/24/17 0930 Amoxicillin/Potassium Clav (Augmentin 500-125 Tablet) 500 Mg-125 Mg Tablet, 1 EACH PO BID Prescribed by: ZEV FARRAR on 04/16/22 0926 Apixaban (Eliquis) 2.5 Mg Tablet, 2.5 MG PO BID, (Reported) Entered as Reported by: AMPARO COCHRAN on 01/04/22 0855 Calcium Citrate/Vitamin D3 (Calcium Citrate - Vit D3 Tab) 1 Each Tablet, 1 TAB PO DAILY, (Reported) Entered as Reported by: CRYSTAL NEVES on 04/24/17 0903 Doxazosin Mesylate (Doxazosin Mesylate) 4 Mg Tablet, 2 MG PO HS, (Reported) Entered as Reported by: KATIE QUEVEDO on 02/15/22 1024 Escitalopram Oxalate (Escitalopram Oxalate) 5 Mg Tablet, 5 MG PO HS, (Reported) Entered as Reported by: MARE MCDERMOTT on 11/07/16 0907 Famotidine (Famotidine) 40 Mg Tablet, 40 MG PO HS, (Reported) Entered as Reported by: CANDICE JIN on 10/06/15 1243 Losartan Potassium (Losartan Potassium) 100 Mg Tablet, 100 MG PO DAILY, (Reported) Entered as Reported by: KATIE QUEVEDO on 04/13/22 1425 Melatonin (Melatonin) 10 Mg Tablet, 10 MG PO HS PRN for SLEEP, (Reported) Entered as Reported by: KATIE QUEVEDO on 02/15/22 1024 Metoprolol Succinate (Metoprolol Succinate) 25 Mg Tab.er.24h, 25 MG PO BID Prescribed by: ZEV FARRAR on 04/16/22 0925 Multivitamin (Multiple Vitamins) 1 Each Tablet, 1 EACH PO DAILY, (Reported) Entered as Reported by: ALBERTO BROWN on 10/15/19 0812 Simvastatin (Simvastatin) 10 Mg Tablet, 10 MG PO HS, (Reported) Entered as Reported by: AMPARO COCHRAN on 01/04/22 0855 Vit A/Vit C/Vit E/Zinc/Copper (Preservision Areds Tablet) 1 Each Tablet, 1 EACH PO DAILY, (Reported) Entered as Reported by: ALBERTO BROWN on 10/15/19 0812 Review of Systems Review of Systems Constitutional: see HPI Eyes: No Symptoms Reported Ears, Nose, Mouth, Throat: no symptoms reported Respiratory: no symptoms reported Cardiovascular: no symptoms reported Genitourinary: no symptoms reported Musculoskeletal: no symptoms reported Skin: no symptoms reported Psychiatric/Neurological: No Symptoms Reported Past Bnsvaef-Mmtfzg-Zvyjro Hx Immunizations Up To Date Tetanus Booster (TDap): Unknown First/Initial COVID19 Vaccinat: 2020 Second COVID19 Vaccination Conor: 2020 Third COVID19 Vaccination Date: 2020 Seasonal Allergies Seasonal Allergies: No Past Medical History Surgery/Hospitalization HX: pacemaker, heart valve replacement, HTN Surgeries: Yes (RSO, BREAST BX, CATARACTS, BOWEL RESCTION, FX HIP) Valve Replacement Respiratory: No (ASTHMA CHILD) Currently Using CPAP: No Currently Using BIPAP: No Cardiac: Yes High Cholesterol, Hypertension Neurological: No 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: No Female 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: Denies [employer] History: Tubal 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 DOWN SYNDROME) Hypertension 19 MOTHER G8 SISTER Kidney disease sister Myocardial infarction 19 FATHER Neoplasm 19 MOTHER (BREAST CANCER) Visual disorder 19 MOTHER (MACULAR DEGENERATION) Heart Disease, Cancer, Hypertension History per records this patient has altered mental status Physical Exam Vital Signs Vital Signs - First Documented 06/03/22 11:10 Temp 36.8 Pulse 69 Resp 20 B/P (MAP) 162/83 (109) Pulse Ox 97 Capillary Refill : Height, Weight, BMI Height: 5'3.00" Weight: 82lbs. 6.4oz. [id number]; 16.09 BMI Method:Stated General Appearance: WD/WN, no apparent distress, thin, other (Frail. Only about 80 to 90 pounds. Hypertensive, 196/100. Nonverbal. Moves all extremities. Very restless trying to crawl out of bed, difficult to redirect. He had) HEENT: PERRL/EOMI, normal ENT inspection Neck: non-tender, full range of motion Respiratory: no respiratory distress, no accessory muscle use Gastrointestinal: normal bowel sounds, soft Neurologic/Psychiatric: alert, disoriented x 3 Crainal Nerves: normal hearing, normal speech, PERRL Skin: normal color, warm/dry Stroke NIH Stroke Scale Assessment Gaze: Normal (0), Total: Stroke Thrombolytic Exclusion Age 18 or Over: Yes Acute intenal hemorrhage: No History of CVA: No Uncontrolled Coagulation Defec: No Intracranial Hemorrhage: No Severe Hypertension: No GI or Bleed: No Subarachnoid Hemorrhage: No Intracranial Neoplasm/Aneurysm: No Oral Anticoagulants: Yes Surgery or Trauma: No Puncture of Non-Compressible V: No Recent CPR: No Diabetic Hemorrhagic Retinopat: No Organ Biopsy: No Recent Obstetric Delivery: No Glucose: No Significant Hepatic Dysfunctio: No NIH Stoke Scale >22: No Bacterial Endocarditis: No Pericarditis: No Improving Symptoms: No Platelets: No Progress/Results/Core Measures Results/Orders Lab Results Laboratory Tests Test 06/03/22 11:22 06/03/22 11:25 06/03/22 12:13 Range/Units Glucometer 99 70-110 MG/DL White Blood Count 8.7 4.3-11.0 10^3/uL Red Blood Count 3.95 3.80-5.11 10^6/uL Hemoglobin 11.4 L 11.5-16.0 g/dL Hematocrit 35 35-52 % Mean Corpuscular Volume 88 80-99 fL Mean Corpuscular Hemoglobin 29 25-34 pg Mean Corpuscular Hemoglobin Concent 33 32-36 g/dL Red Cell Distribution Width 15.5 H 10.0-14.5 % Platelet Count 348 130-400 10^3/uL Mean Platelet Volume 9.1 9.0-12.2 fL Immature Granulocyte % (Auto) 1 % Neutrophils (%) (Auto) 72 42-75 % Lymphocytes (%) (Auto) 18 12-44 % Monocytes (%) (Auto) 6 0-12 % Eosinophils (%) (Auto) 2 0-10 % Basophils (%) (Auto) 1 0-10 % Neutrophils # (Auto) 6.3 1.8-7.8 10^3/uL Lymphocytes # (Auto) 1.6 1.0-4.0 10^3/uL Monocytes # (Auto) 0.6 0.0-1.0 10^3/uL Eosinophils # (Auto) 0.2 0.0-0.3 10^3/uL Basophils # (Auto) 0.0 0.0-0.1 10^3/uL Immature Granulocyte # (Auto) 0.1 0.0-0.1 10^3/uL Prothrombin Time 15.3 H 12.2-14.7 SEC INR Comment 1.2 0.8-1.4 Activated Partial Thromboplast Time 44 H 24-35 SEC D-Dimer 2.84 H 0.00-0.49 UG/ML Sodium Level 136 135-145 MMOL/L Potassium Level 3.8 3.6-5.0 MMOL/L Chloride Level 100 98-107 MMOL/L Carbon Dioxide Level 22 21-32 MMOL/L Anion Gap 14 5-14 MMOL/L Blood Urea Nitrogen 17 7-18 MG/DL Creatinine 0.83 0.60-1.30 MG/DL Estimat Glomerular Filtration Rate 68 BUN/Creatinine Ratio 20 Glucose Level 97 70-105 MG/DL Calcium Level 9.3 8.5-10.1 MG/DL Corrected Calcium 9.2 8.5-10.1 MG/DL Total Bilirubin 0.6 0.1-1.0 MG/DL Aspartate Amino Transf (AST/SGOT) 30 5-34 U/L Alanine Aminotransferase (ALT/SGPT) 23 0-55 U/L Alkaline Phosphatase 93 40-136 U/L Troponin I < 0.028 <0.028 NG/ML Total Protein 7.4 6.4-8.2 GM/DL Albumin 4.1 3.2-4.5 GM/DL Urine Color YELLOW Urine Clarity CLEAR Urine pH 8.5 5-9 Urine Specific [place] 1.010 L 1.016-1.022 Urine Protein NEGATIVE NEGATIVE Urine Glucose (UA) NEGATIVE NEGATIVE Urine Ketones NEGATIVE NEGATIVE Urine Nitrite NEGATIVE NEGATIVE Urine Bilirubin NEGATIVE NEGATIVE Urine Urobilinogen 0.2 < = 1.0 MG/DL Urine Leukocyte Esterase TRACE H NEGATIVE Urine RBC (Auto) NEGATIVE NEGATIVE Urine RBC 0-2 /HPF Urine WBC 0-2 /HPF Urine Squamous Epithelial Cells 0-2 /HPF Urine Crystals NONE /LPF Urine Bacteria NEGATIVE /HPF Urine Casts NONE /LPF Urine Mucus NEGATIVE /LPF Urine Culture Indicated NO My Orders Orders - CHICHO BROWNING APRN Cbc With Automated Diff (06/03/22 11:13) Protime With Inr (06/03/22 11:13) Partial Thromboplastin Time (06/03/22 11:13) Comprehensive Metabolic Panel (06/03/22 11:13) Fibrin Degradation Products (06/03/22 11:13) Troponin I [place] (06/03/22 11:13) Ua Culture If Indicated (06/03/22 11:13) Chest 1 View, Ap/Pa Only (06/03/22 11:13) Catheter(Urinary) Insert & Ass 03,15 (06/03/22 11:13) Ekg Tracing (06/03/22 11:13) Accucheck Stat ONCE (06/03/22 11:13) Ed Iv/Invasive Line Start (06/03/22 11:13) Ed Iv/Invasive Line Start (06/03/22 11:13) Vital Signs Stroke Patient Q15M (06/03/22 11:13) Ct Head Wo-R/O Stroke (06/03/22 11:13) O2 (06/03/22 11:13) Intake & Output 06,14,22 (06/03/22 11:13) Monitor-Rhythm Ecg Trace Only (06/03/22 11:13) Dysphagia Screening Tool Q10MX1 (06/03/22 11:13) Post Thrombolytic Adminstratio (06/03/22 11:13) Lipid Panel (06/04/22 06:00) Ct Angio Head/Neck (06/03/22 11:13) Iohexol Injection (Omnipaque 350 Mg/Ml 1 (06/03/22 11:30) Received Contrast (Hold Metformin- Contr (06/03/22 11:30) Sodium Chloride Flush (Catheter Flush Sy (06/03/22 11:30) Ns (Ivpb) (Sodium Chloride 0.9% Ivpb Bag (06/03/22 11:30) Lorazepam Injection (Ativan Injection) (06/03/22 11:54) Lorazepam Injection (Ativan Injection) (06/03/22 13:30) Lorazepam Injection (Ativan Injection) (06/03/22 13:30) Lorazepam Injection (Ativan Injection) (06/03/22 13:30) Hydralazine Injection (Apresoline Inject (06/03/22 14:15) Medications Given in ED Current Medications Medications Dose Ordered Sig/Sam Route Start Time Stop Time Status Last Admin Dose Admin Iohexol 75 ml ONCE ONCE IV 06/03/22 11:30 06/03/22 11:31 DC 06/03/22 11:34 75 ML Lorazepam 0.5 mg ONCE PRN IVP 06/03/22 13:30 06/03/22 11:54 0.5 MG Lorazepam 0.5 mg ONCE PRN IVP 06/03/22 13:30 06/03/22 12:00 0.5 MG Lorazepam 0.5 mg ONCE PRN IVP 06/03/22 13:30 06/03/22 12:10 0.5 MG Sodium Chloride 10 ml NEEDED PRN IV 06/03/22 11:30 06/03/22 11:34 10 ML Sodium Chloride 100 ml ONCE ONCE IV 06/03/22 11:30 06/03/22 11:31 DC 06/03/22 11:34 80 ML Vital Signs/I&O 06/03/22 11:10 Temp 36.8 Pulse 69 Resp 20 B/P (MAP) 162/83 (109) Pulse Ox 97 Departure Communication (Admissions) 1412-Urinalysis does not reveal UTI. CT head unremarkable. CT angio head neck shows no evidence of occlusion or significant stenosis of any of the intracranial or extracranial vessels. At this time she is now sleeping after 1.5 mg of lorazepam IV (this was 3 doses of 0.5 mg IV.) She does have high blood pressure at 196/105, heart rate did Impression Primary Impression: Altered mental status Disposition: ADMITTED INPATIENT Condition: Stable Departure-Patient Inst. Referrals: ZEV FARRAR MD (PCP/Family) Primary Care Physician CHICHO BROWNING APRN Jun 03, 2022 11:19
[2022-06-03 11:29] LABS: BASOPHILS % (AUTO) 1 % (0-10); EOSINOPHILS # (AUTO) 0.2 10^3/uL (0.0-0.3); EOSINOPHILS % (AUTO) 2 % (0-10); HEMATOCRIT 35 % (35-52); HEMOGLOBIN 11.4 g/dL (11.5-16.0); LYMPHOCYTES # (AUTO) 1.6 10^3/uL (1.0-4.0); LYMPHOCYTES % (AUTO) 18 % (12-44); MEAN CORPUSCULAR HEMOGLOBIN 29 pg (25-34); MEAN CORPUSCULAR HGB CONC 33 g/dL (32-36); MEAN CORPUSCULAR VOLUME 88 fL (80-99); MEAN PLATELET VOLUME 9.1 fL (9.0-12.2); MONOCYTES # (AUTO) 0.6 10^3/uL (0.0-1.0); MONOCYTES % (AUTO) 6 % (0-12); NEUTROPHILS # (AUTO) 6.3 10^3/uL (1.8-7.8); NEUTROPHILS % (AUTO) 72 % (42-75); PLATELET COUNT 348 10^3/uL (130-400); WHITE BLOOD COUNT 8.7 10^3/uL (4.3-11.0)
[2022-06-03] MEDS ORDERED: HOLD METFORMIN - RECEIVED CONTRAST 20 ML VIAL IV SCH (11:30)
[2022-06-03] MEDS ORDERED: IOHEXOL 350 MG/ML 100 ML (OMNIPAQUE 350) VIAL IV ONE (11:30)
[2022-06-03] MEDS ORDERED: CATHETER FLUSH 10 ML SYR IV PRN (11:30)
[2022-06-03] MEDS ORDERED: NS 100 ML (IVPB) BAG IV ONE (11:30)
[2022-06-03 11:41] LABS: ALBUMIN 4.1 GM/DL (3.2-4.5); CHLORIDE 100 MMOL/L (98-107); POTASSIUM 3.8 MMOL/L (3.6-5.0); SODIUM 136 MMOL/L (135-145)
[2022-06-03 11:43] LABS: CALCIUM 9.3 MG/DL (8.5-10.1)
[2022-06-03 11:44] LABS: GLUCOSE 97 MG/DL (70-105); TOTAL PROTEIN 7.4 GM/DL (6.4-8.2)
--- NOTE | 2022-06-03 11:44 | Diagnostic Imaging Report ---
EXAMINATION: CT head without contrast. TECHNIQUE: Multiple contiguous axial images were obtained through the brain without the use of intravenous contrast. All CT scans use one or more of the following dose optimizing techniques: automated exposure control, MA and/or KvP adjustment based on patient size and exam type or iterative reconstruction. HISTORY: Confusion. Weakness. Concern for acute ischemia. COMPARISON: 04/12/2022. FINDINGS: No large acute territorial ischemia, mass, or hemorrhage. No midline shift or mass effect. Decreased attenuation is seen in the periventricular and subcortical white matter. The ventricles and cortical sulci are prominent. The basilar cisterns are patent and unremarkable. Bilateral lens implants are noted. Paranasal sinuses are normal. Mastoid air cells are clear. No soft tissue abnormality is seen. No osseus lesions or fractures are seen. IMPRESSION: 1. No large acute territorial ischemia, mass, or hemorrhage. 2. Chronic microvascular disease. 3. Generalized parenchymal volume loss. Dictated by: Dictated on workstation # [id number]
[2022-06-03 11:45] LABS: CARBON DIOXIDE 22 MMOL/L (21-32); FIBRIN DEGRADATION PRODUCTS 2.84 UG/ML (0.00-0.49); INR 1.2 (0.8-1.4); PROTHROMBIN TIME PATIENT 15.3 SEC (12.2-14.7)
[2022-06-03 11:46] LABS: BILIRUBIN,TOTAL 0.6 MG/DL (0.1-1.0)
[2022-06-03 11:47] LABS: ALKALINE PHOSPHATASE 93 U/L (40-136); CREATININE SERUM 0.83 MG/DL (0.60-1.30); GFR ESTIMATED 68
[2022-06-03 11:48] LABS: BUN/CREATININE RATIO 20
[2022-06-03 11:50] LABS: ALANINE AMINOTRANSFERASE 23 U/L (0-55)
--- NOTE | 2022-06-03 11:50 | Diagnostic Imaging Report ---
PROCEDURE: CT angiography of the head and CT angiography of the neck with and without contrast. TECHNIQUE: Contiguous noncontrast images were obtained from the skull base through the vertex. After intravenous contrast administration, helical CT angiography of the neck was performed. Source data was reformatted into 3D MIP projections. Delayed post contrast acquisition was also obtained. Auto Exposure Controls were utilized during the CT exam to meet ALARA standards for radiation dose reduction. INDICATION: Weakness and confusion. Concern for acute ischemia. COMPARISON: CT head performed the same date. FINDINGS: CTA Neck: The visualized portions of the aortic arch demonstrate atherosclerotic plaque without evidence of aneurysm or dissection. There is conventional branching pattern of the great vessels of the aorta. The brachiocephalic artery is normal in course and caliber. The right and left common carotid origins are unremarkable. The origin of the left subclavian artery is patent. The common carotid arteries and internal carotid arteries demonstrate a tortuous course. There is calcified atherosclerotic plaque in the bilateral carotid bulbs and proximal internal carotid arteries without flow-limiting stenosis. No evidence of dissection in the carotid systems. There is luminal irregularity in the mid to distal portions of the bilateral ICA, left greater than right. The external carotid arteries are patent and unremarkable. The vertebral arteries are codominant. The origin of the right vertebral artery is seen and is unremarkable. The origin of the left vertebral artery is seen and is unremarkable. There is no focal stenosis seen within the neck. There is no dissection. The vertebral arteries are well visualized to up to the level of the basilar artery. No acute fracture in the cervical spine. There is grade 1 anterolisthesis of C4 on C5. Moderate right and small left pleural effusions are seen. Biapical scarring is noted. CTA brain: Atherosclerotic plaque is seen in the jay of the bilateral terminal internal carotid arteries without significant stenosis. No stenosis is seen in the bilateral anterior, middle, and posterior cerebral arteries. No evidence of aneurysm the [place]. In the posterior circulation, both of the vertebral arteries demonstrate normal opacification. Both the right and left PICA arteries are identified. The basilar artery is normal in course and caliber. The terminal branch vessels including the superior cerebellar arteries unremarkable. IMPRESSION: 1. No stenosis or aneurysm in the [place]. No large vessel occlusion. 2. No stenosis or dissection the bilateral carotid and vertebral arteries. 3. 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 No associated dissection is seen. 4. Moderate right and small left pleural effusions. 5. Grade 1 anterolisthesis of C4 on C5. Dictated by: Dictated on workstation # [id number]
--- NOTE | 2022-06-03 11:51 | Diagnostic Imaging Report ---
EXAMINATION: Chest 1 view HISTORY: Confusion. Weakness. COMPARISON: 04/12/2022. FINDINGS: Bilateral pleural effusions are noted, right greater than left. Hazy opacities are seen in the lung bases. Stable mildly prominent cardiac silhouette. Loop recorder is seen overlying the left chest. No acute osseous abnormalities. IMPRESSION: 1. Bilateral pleural effusions with bibasilar hazy opacities, right greater than left. Dictated by: Dictated on workstation # [id number]
[2022-06-03] MEDS ORDERED: LORazepam INJ 2 MG/ML (ATIVAN) VIAL ONE (11:54)
[2022-06-03 12:28] LABS: BILIRUBIN,URINE NEGATIVE (NEGATIVE); CLARITY,URINE CLEAR; COLOR,URINE YELLOW; GLUCOSE, URINE (UA) NEGATIVE (NEGATIVE); KETONES,URINE NEGATIVE (NEGATIVE); LEUKOCYTE ESTERASE ,URINE TRACE (NEGATIVE); NITRITE,URINE NEGATIVE (NEGATIVE); PH,URINE 8.5 (5-9); PROTEIN,URINE NEGATIVE (NEGATIVE)
[2022-06-03 12:41] LABS: RBC,URINE 0-2 /HPF
[2022-06-03 12:42] LABS: BACTERIA,URINE NEGATIVE /HPF; SQUAMOUS EPITHELIAL CELL,UR 0-2 /HPF; WBC,URINE 0-2 /HPF
[2022-06-03] MEDS ORDERED: LORazepam INJ 2 MG/ML (ATIVAN) VIAL IVP PRN ×3 (13:30)
[2022-06-03] MEDS ORDERED: hydrALAZINE (APESOLINE) 20 MG/ML VIAL IV ONE (14:15)
[2022-06-03] MEDS ORDERED: CATHETER FLUSH 10 ML SYR IVP PRN (15:30)
[2022-06-03] MEDS ORDERED: cloNIDine 0.1 MG (CATAPRES) TAB PO PRN (15:30)
[2022-06-03] MEDS ORDERED: hydrALAZINE (APESOLINE) 20 MG/ML VIAL IV PRN (15:30)
[2022-06-03 16:04] VITALS: BP 190/83
[2022-06-03 19:25] VITALS: BP 177/83
[2022-06-03] MEDS: CATHETER FLUSH 10 ML SYR IVP SCH (19:52)
[2022-06-03 23:52] VITALS: BP 137/51
[2022-06-04 03:14] VITALS: BP 154/56
[2022-06-04] MEDS: CATHETER FLUSH 10 ML SYR IVP SCH (05:43)
[2022-06-04 06:57] LABS: BASOPHILS % (AUTO) 0 % (0-10); EOSINOPHILS % (AUTO) 0 % (0-10); HEMATOCRIT 33 % (35-52); HEMOGLOBIN 10.3 g/dL (11.5-16.0); LYMPHOCYTES # (AUTO) 0.9 10^3/uL (1.0-4.0); LYMPHOCYTES % (AUTO) 10 % (12-44); MEAN CORPUSCULAR HEMOGLOBIN 28 pg (25-34); MEAN CORPUSCULAR HGB CONC 32 g/dL (32-36); MEAN CORPUSCULAR VOLUME 89 fL (80-99); MEAN PLATELET VOLUME 9.5 fL (9.0-12.2); MONOCYTES # (AUTO) 0.7 10^3/uL (0.0-1.0); MONOCYTES % (AUTO) 7 % (0-12); NEUTROPHILS # (AUTO) 7.9 10^3/uL (1.8-7.8); NEUTROPHILS % (AUTO) 83 % (42-75); PLATELET COUNT 316 10^3/uL (130-400); WHITE BLOOD COUNT 9.6 10^3/uL (4.3-11.0)
[2022-06-04 07:20] LABS: CALCIUM 8.6 MG/DL (8.5-10.1); CREATININE SERUM 0.77 MG/DL (0.60-1.30); POTASSIUM 3.9 MMOL/L (3.6-5.0)
[2022-06-04 07:43] VITALS: BP 165/70
[2022-06-04 11:25] VITALS: BP 133/60
[2022-06-04 11:57] VITALS: BP 133/60
[2022-06-04] MEDS ORDERED: CLN.1T PO (11:57)
--- NOTE | 2022-06-04 12:04 | Short Stay Summary ---
History of Present Illness History of Present Illness Reason for visit/HPI This is a 86 year old female with a history of labile hypertension and hypertensive encephalopathy. She had been for a walk with her yesterday and then was noticed to have confusion with irritability. She was brought to the emergency room via EMS and was found to be confused and agitated in the emergency room requiring IV ativan. Her blood pressure was elevated at 162/83 on arrival. CTA of brain and neck was negative for any stroke but due to her hypertensive encephalopathy episode it was decided to monitor her overnight. Date of Admission Jun 03, 2022 at 14:07 Date of Discharge Jun 04, 2022 Time Seen by Provider: 12:02 Attending Physician Zev Bradshaw MD Admitting Physician Admitting Physician: Bhargav Maldonado DO Attending Physician: Zev Bradshaw MD Consult Allergies and Home Medications Allergies Coded Allergies: bacitracin (Verified Allergy, Mild, RASH, 10/15/19) lidocaine (Verified Allergy, Mild, RASH, 10/15/19) neomycin (Verified Allergy, Mild, RASH, 10/15/19) polymyxin B (Verified Allergy, Mild, RASH, 10/15/19) pramoxine (Verified Allergy, Mild, RASH, 10/15/19) Patient Home Medication List Home Medication List Reviewed: Yes Acetaminophen (Acetaminophen ER) 650 Mg Tablet.er, 650 MG PO HS, (Reported) Entered as Reported by: CRYSTAL NEVES on 04/24/17 0925 Acetaminophen (Acetaminophen ER) 650 Mg Tablet.er, 650 MG PO DAILY PRN for PAIN- MILD, (Reported) Entered as Reported by: CRYSTAL NEVES on 04/24/17 0930 Amoxicillin/Potassium Clav (Augmentin 500-125 Tablet) 500 Mg-125 Mg Tablet, 1 EACH PO BID Prescribed by: ZEV BRADSHAW on 04/16/22 0926 Apixaban (Eliquis) 2.5 Mg Tablet, 2.5 MG PO BID, (Reported) Entered as Reported by: AMPARO COCHRAN on 01/04/22 0855 Calcium Citrate/Vitamin D3 (Calcium Citrate - Vit D3 Tab) 1 Each Tablet, 1 TAB PO DAILY, (Reported) Entered as Reported by: CRYSTAL NEVES on 04/24/17 0903 Clonidine HCl (Clonidine HCl) 0.1 Mg Tablet, 0.1 MG PO BID PRN for BLOOD PRESSURE Prescribed by: BHARGAV MALDONADO on 06/04/22 1157 Doxazosin Mesylate (Doxazosin Mesylate) 4 Mg Tablet, 2 MG PO HS, (Reported) Entered as Reported by: KATIE QUEVEDO on 02/15/22 1024 Escitalopram Oxalate (Escitalopram Oxalate) 5 Mg Tablet, 5 MG PO HS, (Reported) Entered as Reported by: MARE MCDERMOTT on 11/07/16 0907 Famotidine (Famotidine) 40 Mg Tablet, 40 MG PO HS, (Reported) Entered as Reported by: CANDICE JIN on 10/06/15 1243 Losartan Potassium (Losartan Potassium) 100 Mg Tablet, 100 MG PO DAILY, (Reported) Entered as Reported by: KATIE QUEVEDO on 04/13/22 1425 Melatonin (Melatonin) 10 Mg Tablet, 10 MG PO HS PRN for SLEEP, (Reported) Entered as Reported by: KATIE QUEVEDO on 02/15/22 1024 Metoprolol Succinate (Metoprolol Succinate) 25 Mg Tab.er.24h, 25 MG PO BID Prescribed by: ZEV BRADSHAW on 04/16/22 0925 Multivitamin (Multiple Vitamins) 1 Each Tablet, 1 EACH PO DAILY, (Reported) Entered as Reported by: ALBERTO BROWN on 10/15/19 0812 Simvastatin (Simvastatin) 10 Mg Tablet, 10 MG PO HS, (Reported) Entered as Reported by: AMPARO COCHRAN on 01/04/22 0855 Vit A/Vit C/Vit E/Zinc/Copper (Preservision Areds Tablet) 1 Each Tablet, 1 EACH PO DAILY, (Reported) Entered as Reported by: ALBERTO BROWN on 10/15/19 0812 Past Wyyetke-Qholvl-Hzrnwv Hx Patient Social History Marrital Status: 2nd Hand Smoke Exposure: No Recent Hopitalizations: No Have you traveled recently?: No Alcohol Use?: No Pt feels they are or have been: No Immunizations Up To Date Tetanus Booster (TDap): Unknown Date of Pneumonia Vaccine: Jul 01, 2019 Date of Influenza Vaccine: Jul 01, 2019 Seasonal Allergies Seasonal Allergies: No Surgeries Yes (RSO, BREAST BX, CATARACTS, BOWEL RESCTION, FX HIP) Valve Replacement Respiratory No (ASTHMA CHILD) Currently Using CPAP: No Currently Using BIPAP: No Cardiovascular Yes High Cholesterol, Hypertension Neurological No Reproductive System Hx 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: No Sexually Transmitted Disease: No HIV/AIDS: No Female 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: Denies 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 Genitourinary No Gastrointestinal Yes (GERD) Gastroesophageal Reflux, Obstructive Bowel, Chronic Constipation, Hiatal Hernia Musculoskeletal Yes (ARTHRITIS, OSTEOPOROSIS) Arthritis Endocrine History of Endocrine Disorders: No HEENT History of HEENT Disorders: Yes (GLASSES, PARTIAL ) HEENT Disorders: Macular Degeneration Loss of Vision: Denies Hearing Impairment: Denies Cancer No Psychosocial History of Psychiatric Problem: Yes Behavioral Health Disorders: Depression Integumentary History of Skin or Integumenta: No Blood Transfusions History of Blood Disorders: No Adverse Reaction to a Blood Tr: No (HAS HAD BLOOD WITH NO REACTION) Family Medical History Significant Family History: Heart Disease, Cancer, Hypertension Other Significan Family Hx: History per records this patient has altered mental status Family Hx: Congenital disease G8 BROTHER (? DOWN SYNDROME) Hypertension 19 MOTHER G8 SISTER Kidney disease sister Myocardial infarction 19 FATHER Neoplasm 19 MOTHER (BREAST CANCER) Visual disorder 19 MOTHER (MACULAR DEGENERATION) Review of Systems Constitutional: weakness EENTM: No see HPI, No no symptoms reported, No ear discharge, No hearing loss, No ear pain, No blurred vision, No double vision, No eye pain, No tearing, No vision loss, No dental problems, No hoarseness, No mouth pain, No mouth swelling, No epistaxis, No nose congestion, No nose pain, No throat pain, No throat swelling, No other Respiratory: No no symptoms reported, No see HPI, No cough, No dyspnea on exertion, No hemoptysis, No orthopnea, No phlegm, No short of breath, No stridor, No wheezing, No other Cardiovascular: other (HTN) Gastrointestinal: No RUQ, No LUQ, No RLQ, No LLQ, No no symptoms reported, No see HPI, No abdominal pain, No constipation, No diarrhea, No dysphagia, No hematemesis, No heartburn, No jaundice, No loss of appetite, No melena, No na usea, No vomiting, No other Genitourinary: No no symptoms reported, No see HPI, No decreased output, No di scharge, No dysuria, No frequency, No hematuria, No hesitancy, No incontinence, No nocturia, No pain, No other Musculoskeletal: muscle weakness Skin: No no symptoms reported, No see HPI, No change in color, No change in hair/nails, No dryness, No hx of skin cancer, No lesions, No lumps, No pruritus, No rash, No other Psychiatric/Neurological: Weakness, Other (confusion) Physical Exam Vital Signs Vital Signs - First Documented 06/03/22 06/03/22 11:10 15:37 Temp 36.8 Pulse 69 Resp 20 B/P (MAP) 162/83 (109) Pulse Ox 97 O2 Delivery Room Air Capillary Refill : Less Than 3 Seconds Height, Weight, BMI Height: 5'3.00" Weight: 82lbs. 6.4oz. 37.408159fm; 16.08 BMI Method:Stated General Appearance: No Apparent Distress Neck: Supple Respiratory: Lungs Clear Cardiovascular: Regular Rate, Rhythm, Systolic Murmur, Gallop/S4 Gastrointestinal: Non Tender, Soft, Abnormal Bowel Sounds Rectal: Deferred Back: No CVA Tenderness Extremity: Non Tender, No Calf Tenderness, No Pedal Edema Neurologic/Psychiatric: Alert Skin: Warm/Dry Comments laLaboratory Tests 06/03/22 12:13: Urine Color YELLOW, Urine Clarity CLEAR, Urine pH 8.5, Urine Specific [place] 1.010L, Urine Protein NEGATIVE, Urine Glucose (UA) NEGATIVE, Urine Ketones NEGATIVE, Urine Nitrite NEGATIVE, Urine Bilirubin NEGATIVE, Urine Urobilinogen 0.2, Urine Leukocyte Esterase TRACEH, Urine RBC (Auto) NEGATIVE, Urine RBC 0-2, Urine WBC 0-2, Urine Squamous Epithelial Cells 0-2, Urine Crystals NONE, Urine Bacteria NEGATIVE, Urine Casts NONE, Urine Mucus NEGATIVE, Urine Culture Indicated NO 06/04/22 06:27: White Blood Count 9.6, Red Blood Count 3.64L, Hemoglobin 10.3L, Hematocrit 33L, Mean Corpuscular Volume 89, Mean Corpuscular Hemoglobin 28, Mean Corpuscular Hemoglobin Concent 32, Red Cell Distribution Width 16.1H, Platelet Count 316, Mean Platelet Volume 9.5, Immature Granulocyte % (Auto) 1, Neutrophils (%) (Auto) 83H, Lymphocytes (%) (Auto) 10L, Monocytes (%) (Auto) 7, Eosinophils (%) (Auto) 0, Basophils (%) (Auto) 0, Neutrophils # (Auto) 7.9H, Lymphocytes # (Auto ) 0.9L, Monocytes # (Auto) 0.7, Eosinophils # (Auto) 0.0, Basophils # (Auto) 0.0, Immature Granulocyte # (Auto) 0.1, Sodium Level 137, Potassium Level 3.9, Chloride Level 101, Carbon Dioxide Level 22, Anion Gap 14, Blood Urea Nitrogen 19H, Creatinine 0.77, Estimat Glomerular Filtration Rate 74, BUN/Creatinine Ratio 25, Glucose Level 90, Calcium Level 8.6, Triglycerides Level 89, Cholesterol Level 173, LDL Cholesterol Direct 120, VLDL Cholesterol 18, HDL Cholesterol 45 Short Stay Diagnosis Discharge Diagnosis-Short Stay Final Discharge Diagnosis: 1. Hypertensive Encephalopathy 2. Hypertensive Urgency with History of Labile Hypertension 3. Aortic Stenosis with a history of LATONYA--on eliquis 4. Paroxysmal Atrial Fibrillation--in NSR 5. 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 Recent UTI--resolved Conclusion Labs Laboratory Tests 06/03/22 12:13: Urine Color YELLOW, Urine Clarity CLEAR, Urine pH 8.5, Urine Specific [place] 1.010L, Urine Protein NEGATIVE, Urine Glucose (UA) NEGATIVE, Urine Ketones NEGATIVE, Urine Nitrite NEGATIVE, Urine Bilirubin NEGATIVE, Urine Urobilinogen 0.2, Urine Leukocyte Esterase TRACEH, Urine RBC (Auto) NEGATIVE, Urine RBC 0-2, Urine WBC 0-2, Urine Squamous Epithelial Cells 0-2, Urine Crystals NONE, Urine Bacteria NEGATIVE, Urine Casts NONE, Urine Mucus NEGATIVE, Urine Culture Indicated NO 06/04/22 06:27: White Blood Count 9.6, Red Blood Count 3.64L, Hemoglobin 10.3L, Hematocrit 33L, Mean Corpuscular Volume 89, Mean Corpuscular Hemoglobin 28, Mean Corpuscular Hemoglobin Concent 32, Red Cell Distribution Width 16.1H, Platelet Count 316, Mean Platelet Volume 9.5, Immature Granulocyte % (Auto) 1, Neutrophils (%) (Auto) 83H, Lymphocytes (%) (Auto) 10L, Monocytes (%) (Auto) 7, Eosinophils (%) (Auto) 0, Basophils (%) (Auto) 0, Neutrophils # (Auto) 7.9H, Lymphocytes # (Auto) 0.9L, Monocytes # (Auto) 0.7, Eosinophils # (Auto) 0.0, Basophils # (Auto) 0.0, Immature Granulocyte # (Auto) 0.1, Sodium Level 137, Potassium Level 3.9, Chloride Level 101, Carbon Dioxide Level 22, Anion Gap 14, Blood Urea Nitrogen 19H, Creatinine 0.77, Estimat Glomerular Filtration Rate 74, BUN/Creatinine Ratio 25, Glucose Level 90, Calcium Level 8.6, Triglycerides Level 89, Cholesterol Level 173, LDL Cholesterol Direct 120, VLDL Cholesterol 18, HDL Cholesterol 45 Conclusion/Plan This is a 86 year old female with a history of labile hypertension and hypertensive encephalopathy. She had been for a walk with her yesterday and then was noticed to have confusion with irritability. She was brought to the emergency room via EMS and was found to be confused and agitated in the emergency room requiring IV ativan. Her blood pressure was elevated at 162/83 on arrival. CTA of brain and neck was negative for any stroke but due to her hypertensive encephalopathy episode it was decided to monitor her overnight. She was admitted to the medical floor with neurochecks and prn hydralazine and clonidine. Her blood pressure is improved prior to discharge at 133/60. Her states that she is back to baseline and she wants to go home. Her ariza catheter will be discontinued and she will get up to the chair and to the bathroom and if she has no dizziness and is able to urinate she will be discharged to home. 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 I discussed that we will send out clonidine 0.1mg to use prn for a BP greater than 160/90. She will fwup with Dr. Bradshaw in 7-[address] Orozco next month as scheduled. BHARGAV MALDONADO DO Jun 04, 2022 12:04
== END 2022-06-04 11:54 | disposition home or self-care (01) ==
LOC: EDUNIT# 11:10 → ER 11:12 → UNDOADMOB 14:07 → 4TH 14:07 → UNDODISOB 06-04 11:54
PROVIDERS: ADMIT Family Medicine; ATTEND Family Medicine
DX: I67.4 Hypertensive encephalopathy (principal); I16.0 Hypertensive urgency; I48.0 Paroxysmal atrial fibrillation; I35.0 Nonrheumatic aortic (valve) stenosis; N39.0 Urinary tract infection, site not specified; R41.3 Other amnesia; Z79.899 Other long term (current) drug therapy
CPT/HCPCS: 70450; 70496; 70498; 71045; 80048; 80053; 80061; 81000; 82947; 84484; 85025 ×2; 85379; 85610; 85730; 93005; 93041; 96374; 96375; 96376; 99284; G0378; 36415

== ENCOUNTER → 2022-12-15 | Outpatient (CLI) | payer MEDICARE, OTHER ==
[~2022-12-15] MED LIST changes: +CLN.1T PO
--- NOTE | 2022-12-15 11:24 | Diagnostic Imaging Report ---
Indication: Valvular heart disease. Comparison is made with prior exam of 01/04/2021 FINDINGS: Heart size is normal. There has been an aortic valve replacement. Loop recorder overlies left hemithorax. There are bibasal infiltrates and bilateral pleural effusions. No pneumothorax. The mediastinum is unremarkable. IMPRESSION: Bibasal pulmonary infiltrates and bilateral pleural effusions left greater than right. Previous aortic valve replacement with a loop recorder overlying the left hemithorax. Dictated by: Dictated on workstation # [id number]
== END ==
LOC: RAD 11:02
PROVIDERS: ATTEND Nurse Practitioner
DX: J90 Pleural effusion, not elsewhere classified (principal); R91.8 Other nonspecific abnormal finding of lung field; I25.10 Atherosclerotic heart disease of native coronary artery without angina pectoris; Z95.2 Presence of prosthetic heart valve
CPT/HCPCS: 71046

== ENCOUNTER → 2023-01-05 | Outpatient (CLI) | payer MEDICARE, OTHER ==
[~2023-01-05] MED LIST changes: -MELA10TA PO; +MELATONIN10 M5 PO
[2023-01-05 10:37] LABS: INR 1.1 (0.8-1.4)
[2023-01-05 11:10] VITALS: BP 104/73
[2023-01-05 11:15] VITALS: BP 113/74
--- NOTE | 2023-01-05 12:07 | Diagnostic Imaging Report ---
Indication: Pleural effusion. Patient brought to the procedure room placed in the bed in the sitting upright position, slightly leaned over a table. Ultrasound imaging of the posterior thorax was then performed. Greatest amount of fluid does appear to be in the left pleural space. Posterior thorax on the left side was then prepped and draped usual sterile fashion. Small amount of 1% lidocaine was utilized for local anesthesia. Thoracentesis catheter was advanced into the posterior pleural space. Approximately 650 mL of fluid was removed. Catheter was removed and hemostasis was obtained. Patient tolerated the procedure well and was sent for post procedure chest x-ray in satisfactory condition. IMPRESSION: Successful ultrasound guided left-sided thoracentesis obtaining 650 mL of fluid. Dictated by: Dictated on workstation # [id number]
--- NOTE | 2023-01-05 12:10 | Diagnostic Imaging Report ---
INDICATION: Left side pleural effusion, status post thoracentesis. Time of Exam: 11:31 AM Comparison is made with prior chest from 12/15/2022. Heart size is stable. Cardiac loop recorder overlies left chest. There is prosthetic cardiac valve. There has been significant reduction in left-sided pleural effusion, status postthoracentesis. No pneumothorax identified. There is a small right pleural effusion. Lungs appear clear. IMPRESSION: Significant reduction in left pleural effusion, status post thoracentesis. No pneumothorax is identified. Dictated by: Dictated on workstation # [id number]
== END ==
LOC: RAD 09:54
PROVIDERS: ATTEND Family Medicine
DX: J90 Pleural effusion, not elsewhere classified (principal); Z98.890 Other specified postprocedural states
CPT/HCPCS: 32555; 71045; 85610; A7048; 36415

== ENCOUNTER → 2023-01-12 | Outpatient (CLI) | payer MEDICARE, OTHER ==
--- NOTE | 2023-01-12 17:15 | Diagnostic Imaging Report ---
INDICATION: Dyspnea and pleural effusion PA and lateral views of the chest are obtained with comparison made to study of 12/15/2022. Similar to the previous study there is blunting of both costophrenic sulci bilaterally however there has been reduction in overall amount of pleural fluid. There is no pneumothorax. Air trapping and prominent interstitial markings persist. IMPRESSION: Reduction in bilateral pleural fluid with residual mild pleural effusions, greater on the left. Dictated by: Dictated on workstation # [id number]
== END ==
LOC: RAD 14:07
PROVIDERS: ATTEND Nurse Practitioner Family
DX: J90 Pleural effusion, not elsewhere classified (principal)
CPT/HCPCS: 71046

== ENCOUNTER 2023-03-14 16:44 | Observation (INO) | payer MEDICARE, OTHER ==
[~2023-03-14] VITALS: Ht 160 cm; Wt 46.2 kg
[~2023-03-14 16:44] MED LIST changes: -LOSA100T57 PO; +LOSA100T58 PO
[2023-03-14 17:13] LABS: BASOPHILS % (AUTO) 0 % (0-10); EOSINOPHILS # (AUTO) 0.1 10^3/uL (0.0-0.3); EOSINOPHILS % (AUTO) 1 % (0-10); HEMATOCRIT 36 % (35-52); HEMOGLOBIN 12.1 g/dL (11.5-16.0); LYMPHOCYTES # (AUTO) 0.8 10^3/uL (1.0-4.0); LYMPHOCYTES % (AUTO) 16 % (12-44); MEAN CORPUSCULAR HEMOGLOBIN 30 pg (25-34); MEAN CORPUSCULAR HGB CONC 34 g/dL (32-36); MEAN CORPUSCULAR VOLUME 88 fL (80-99); MEAN PLATELET VOLUME 9.8 fL (9.0-12.2); MONOCYTES # (AUTO) 0.4 10^3/uL (0.0-1.0); MONOCYTES % (AUTO) 8 % (0-12); NEUTROPHILS # (AUTO) 3.8 10^3/uL (1.8-7.8); NEUTROPHILS % (AUTO) 75 % (42-75); PLATELET COUNT 241 10^3/uL (130-400); WHITE BLOOD COUNT 5.1 10^3/uL (4.3-11.0)
[2023-03-14] MEDS ORDERED: NS IV 500 ML 500 ML IV ONE (17:15)
[2023-03-14] MEDS ORDERED: ONDANSETRON 4 MG/2 ML (SDV) Z0FRAN IVP ONE (17:15)
[2023-03-14 17:18] LABS: ALBUMIN 3.7 GM/DL (3.2-4.5); CHLORIDE 100 MMOL/L (98-107); POTASSIUM 4.2 MMOL/L (3.6-5.0); SODIUM 131 MMOL/L (135-145)
[2023-03-14 17:19] LABS: CALCIUM 8.5 MG/DL (8.5-10.1)
[2023-03-14 17:21] LABS: GLUCOSE 109 MG/DL (70-105); TOTAL PROTEIN 6.4 GM/DL (6.4-8.2)
[2023-03-14 17:22] LABS: BILIRUBIN,TOTAL 0.8 MG/DL (0.1-1.0); CARBON DIOXIDE 21 MMOL/L (21-32)
[2023-03-14 17:24] LABS: ALKALINE PHOSPHATASE 84 U/L (40-136); CREATININE SERUM 0.74 MG/DL (0.60-1.30); GFR ESTIMATED 77
[2023-03-14 17:25] LABS: BUN/CREATININE RATIO 15
[2023-03-14 17:27] LABS: ALANINE AMINOTRANSFERASE 31 U/L (0-55); MAGNESIUM 1.7 MG/DL (1.6-2.4)
[2023-03-14 18:52] LABS: BILIRUBIN,URINE NEGATIVE (NEGATIVE); CLARITY,URINE CLEAR; COLOR,URINE YELLOW; GLUCOSE, URINE (UA) NEGATIVE (NEGATIVE); KETONES,URINE 1+ (NEGATIVE); LEUKOCYTE ESTERASE ,URINE NEGATIVE (NEGATIVE); NITRITE,URINE NEGATIVE (NEGATIVE); PH,URINE 6.5 (5-9); PROTEIN,URINE NEGATIVE (NEGATIVE)
[2023-03-14 19:08] LABS: AMORPHOUS SEDIMENT,UR RARE AMOR URATES /LPF; BACTERIA,URINE TRACE /HPF; WBC,URINE 0-2 /HPF
--- NOTE | 2023-03-14 19:19 | ED General ---
General Chief Complaint: Respiratory Problems Stated Complaint: CHEST PAIN|MEMORY ISSUE Nursing Triage Note: PT PRESENTS TO ED VIA POV FROM HOME COMPLAINTS OF SOA THAT IS WORSE TODAY THAN NORMAL. PT ALSO REPORTS NAUSEA. Source of Information: Patient, Old Records Exam Limitations: No Limitations History of Present Illness Date Seen by Provider: Mar 14, 2023 Time Seen by Provider: 17:06 Initial Comments This 87-year-old woman presents to the emergency room with primary complaint of worsening shortness of breath, generalized weakness, and unsteadiness on her feet. She has spent most of the day in bed. She can still get up with a walker but is more unsteady than usual. She was also nauseated this morning but has not been vomiting. She is treated for congestive heart failure and has an artificial heart valve. Dr. Orozco is her primary organic chemist in [place]. She has also seen Dr. Coulter in [place]. Dr. Bradshaw is her primary care provider. She has had some cough with her shortness of breath over the last couple of days but denies any fever. She takes aspirin 81 mg daily and Eliquis 2.5 mg BID. Allergies and Home Medications Allergies Coded Allergies: bacitracin (Verified Allergy, Mild, RASH, 10/15/19) lidocaine (Verified Allergy, Mild, RASH, 10/15/19) neomycin (Verified Allergy, Mild, RASH, 10/15/19) polymyxin B (Verified Allergy, Mild, RASH, 10/15/19) pramoxine (Verified Allergy, Mild, RASH, 10/15/19) Patient Home Medication List Home Medication List Reviewed: Yes Acetaminophen (Acetaminophen ER) 650 Mg Tablet.er, 650 MG PO HS, (Reported) Entered as Reported by: CRYSTAL NEVES on 04/24/17 0925 Acetaminophen (Acetaminophen ER) 650 Mg Tablet.er, 650 MG PO DAILY PRN for PAIN- MILD, (Reported) Entered as Reported by: CRYSTAL NEVES on 04/24/17 0930 Apixaban (Eliquis) 2.5 Mg Tablet, 2.5 MG PO BID, (Reported) Entered as Reported by: AMPARO COCHRAN on 01/04/22 0855 Calcium Citrate/Vitamin D3 (Calcium Citrate - Vit D3 Tab) 1 Each Tablet, 1 TAB PO DAILY, (Reported) Entered as Reported by: CRYSTAL NEVES on 04/24/17 0903 Clonidine HCl (Clonidine HCl) 0.1 Mg Tablet, 0.1 MG PO BID PRN for BLOOD PRESSURE Prescribed by: BHARGAV WAHL on 06/04/22 1157 Doxazosin Mesylate (Doxazosin Mesylate) 4 Mg Tablet, 2 MG PO HS, (Reported) Entered as Reported by: KATIE QUEVEDO on 02/15/22 1024 Escitalopram Oxalate (Escitalopram Oxalate) 5 Mg Tablet, 5 MG PO HS, (Reported) Entered as Reported by: MARE MCDERMOTT on 11/07/16 0907 Famotidine (Famotidine) 40 Mg Tablet, 40 MG PO HS, (Reported) Entered as Reported by: CANDICE JIN on 10/06/15 1243 Losartan Potassium (Losartan Potassium) 100 Mg Tablet, 100 MG PO DAILY, (Reported) Entered as Reported by: KATIE QUEVEDO on 04/13/22 1425 Melatonin (Melatonin) 10 Mg Tablet, 10 MG PO HS PRN for SLEEP, (Reported) Entered as Reported by: KATIE QUEVEDO on 02/15/22 1024 Metoprolol Succinate (Metoprolol Succinate) 25 Mg Tab.er.24h, 25 MG PO BID Prescribed by: ZEV BRADSHAW on 04/16/22 0925 Multivitamin (Multiple Vitamins) 1 Each Tablet, 1 EACH PO DAILY, (Reported) Entered as Reported by: ALBERTO BROWN on 10/15/19 0812 Simvastatin (Simvastatin) 10 Mg Tablet, 10 MG PO HS, (Reported) Entered as Reported by: AMPARO COCHRAN on 01/04/22 0855 Vit A/Vit C/Vit E/Zinc/Copper (Preservision Areds Tablet) 1 Each Tablet, 1 EACH PO DAILY, (Reported) Entered as Reported by: ALBERTO BROWN on 10/15/19 0812 Review of Systems Review of Systems Constitutional: see HPI EENTM: other (Dry mucous membranes) Respiratory: see HPI Cardiovascular: see HPI Gastrointestinal: see HPI Genitourinary: no symptoms reported Musculoskeletal: no symptoms reported Skin: no symptoms reported Psychiatric/Neurological: No Symptoms Reported Hematologic/Lymphatic: No Symptoms Reported Past Rdglpik-Yulqyk-Qrjlpg Hx Patient Social History Tobacco Use?: No Substance use?: No Alcohol Use?: No Pt feels they are or have been: No Immunizations Up To Date Tetanus Booster (TDap): Unknown First/Initial COVID19 Vaccinat: 2020 Second COVID19 Vaccination Conor: 2020 Third COVID19 Vaccination Date: 2020 Seasonal Allergies Seasonal Allergies: No Past Medical History Surgery/Hospitalization HX: pacemaker, heart valve replacement, HTN Surgeries: Yes (RSO, BREAST BX, CATARACTS, BOWEL RESCTION, FX HIP) Orthopedic, Pacemaker, Valve Replacement Respiratory: No (ASTHMA CHILD) Currently Using CPAP: No Currently Using BIPAP: No Cardiac: Yes (Congestive heart failure) Atrial Fibrillation, High Cholesterol, Hypertension Neurological: No 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: No Female 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: Denies 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 DOWN SYNDROME) Hypertension 19 MOTHER G8 SISTER Kidney disease sister Myocardial infarction 19 FATHER Neoplasm 19 MOTHER (BREAST CANCER) Visual disorder 19 MOTHER (MACULAR DEGENERATION) Heart Disease, Cancer, Hypertension History per records this patient has altered mental status Physical Exam Vital Signs Vital Signs - First Documented 03/14/23 03/14/23 16:51 16:55 Temp 37.0 Pulse 70 Resp 16 B/P (MAP) 136/96 (109) Pulse Ox 95 O2 Delivery Room Air Capillary Refill : Less Than 3 Seconds Height, Weight, BMI Height: 5'3.00" Weight: 82lbs. 6.4oz. [id number]; 16.00 BMI Method:Stated General Appearance: No Apparent Distress, WD/WN HEENT: PERRL/EOMI, Normal ENT Inspection, Other (Oropharynx very dry) Neck: JVD (Minimal) Respiratory: No Crackles; Decreased Breath Sounds (Decreased breath sounds, especially in the left base); No Wheezing Cardiovascular: Regular Rate, Rhythm, No Edema, Systolic Murmur Gastrointestinal: Non Tender, Soft Extremity: Normal Inspection, Non Tender, No Pedal Edema Neurologic/Psychiatric: Alert, Oriented x3, No Motor/Sensory Deficits, Normal Mood/Affect, sighter II-XII Norm as Tested Skin: Normal Color, Warm/Dry Progress/Results/Core Measures Suspected Sepsis SIRS Temperature: Pulse: 70 Respiratory Rate: 16 Laboratory Tests 03/14/23 16:55: White Blood Count 5.1 Blood Pressure 136 /96 Mean: 109 Laboratory Tests 03/14/23 16:55: Creatinine 0.74, Platelet Count 241, Total Bilirubin 0.8 Results/Orders Lab Results Laboratory Tests Test 03/14/23 15:28 03/14/23 16:55 03/14/23 16:58 03/14/23 18:46 Range/Units SARS-CoV-2 RNA (RT-PCR) Not Detected Not Detecte White Blood Count 5.1 4.3-11.0 10^3/uL Red Blood Count 4.03 3.80-5.11 10^6/uL Hemoglobin 12.1 11.5-16.0 g/dL Hematocrit 36 35-52 % Mean Corpuscular Volume 88 80-99 fL Mean Corpuscular Hemoglobin 30 25-34 pg Mean Corpuscular Hemoglobin Concent 34 32-36 g/dL Red Cell Distribution Width 17.3 H 10.0-14.5 % Platelet Count 241 130-400 10^3/uL Mean Platelet Volume 9.8 9.0-12.2 fL Immature Granulocyte % (Auto) 0 % Neutrophils (%) (Auto) 75 42-75 % Lymphocytes (%) (Auto) 16 12-44 % Monocytes (%) (Auto) 8 0-12 % Eosinophils (%) (Auto) 1 0-10 % Basophils (%) (Auto) 0 0-10 % Neutrophils # (Auto) 3.8 1.8-7.8 10^3/uL Lymphocytes # (Auto) 0.8 L 1.0-4.0 10^3/uL Monocytes # (Auto) 0.4 0.0-1.0 10^3/uL Eosinophils # (Auto) 0.1 0.0-0.3 10^3/uL Basophils # (Auto) 0.0 0.0-0.1 10^3/uL Immature Granulocyte # (Auto) 0.0 0.0-0.1 10^3/uL Sodium Level 131 L 135-145 MMOL/L Potassium Level 4.2 3.6-5.0 MMOL/L Chloride Level 100 98-107 MMOL/L Carbon Dioxide Level 21 21-32 MMOL/L Anion Gap 10 5-14 MMOL/L Blood Urea Nitrogen 11 7-18 MG/DL Creatinine 0.74 0.60-1.30 MG/DL Estimat Glomerular Filtration Rate 77 BUN/Creatinine Ratio 15 Glucose Level 109 H 70-105 MG/DL Calcium Level 8.5 8.5-10.1 MG/DL Corrected Calcium 8.7 8.5-10.1 MG/DL Magnesium Level 1.7 1.6-2.4 MG/DL Total Bilirubin 0.8 0.1-1.0 MG/DL Aspartate Amino Transf (AST/SGOT) 43 H 5-34 U/L Alanine Aminotransferase (ALT/SGPT) 31 0-55 U/L Alkaline Phosphatase 84 40-136 U/L Troponin I < 0.028 <0.028 NG/ML C-Reactive Protein High Sensitivity 0.15 0.00-0.50 MG/DL B-Type Natriuretic Peptide 48632.2 H <100.0 PG/ML Total Protein 6.4 6.4-8.2 GM/DL Albumin 3.7 3.2-4.5 GM/DL Glucometer 124 H 70-110 MG/DL Urine Color YELLOW Urine Clarity CLEAR Urine pH 6.5 5-9 Urine Specific [place] 1.010 L 1.016-1.022 Urine Protein NEGATIVE NEGATIVE Urine Glucose (UA) NEGATIVE NEGATIVE Urine Ketones 1+ H NEGATIVE Urine Nitrite NEGATIVE NEGATIVE Urine Bilirubin NEGATIVE NEGATIVE Urine Urobilinogen 1.0 < = 1.0 MG/DL Urine Leukocyte Esterase NEGATIVE NEGATIVE Urine RBC (Auto) 2+ H NEGATIVE Urine RBC 10-25 H /HPF Urine WBC 0-2 /HPF Urine Squamous Epithelial Cells 2-5 /HPF Urine Crystals PRESENT H /LPF Urine Amorphous Sediment RARE MARIAH URATES H /LPF Urine Bacteria TRACE /HPF Urine Casts NONE /LPF Urine Mucus SMALL H /LPF Urine Culture Indicated NO My Orders Orders - HARMONY JIANG MD Ekg Tracing (03/14/23 16:53) Bnp Roma (03/14/23 17:06) Cbc With Automated Diff (03/14/23 17:06) Comprehensive Metabolic Panel (03/14/23 17:06) Hs C Reactive Protein (03/14/23 17:06) Magnesium (03/14/23 17:06) Ua Culture If Indicated (03/14/23 17:06) Ed Iv/Invasive Line Start (03/14/23 17:06) Covid 19 Inhouse Test (03/14/23 17:06) Ns Iv 500 Ml (Sodium Chloride 0.9%) (03/14/23 17:15) Ondansetron Injection (Zofran Injectio (03/14/23 17:15) Troponin I Roma (03/14/23 17:08) Chest Pa/Lat (2 View) (03/14/23 18:57) Furosemide Injection (Lasix Injection) (03/14/23 20:15) Potassium Chloride (Tablet) (Klor Con Ta (03/14/23 20:15) Apixaban Tablet (Eliquis Tablet) (03/14/23 20:30) Potassium Chloride (Tablet) (Klor Con Ta (03/14/23 20:22) Furosemide Injection (Lasix Injection) (03/14/23 20:22) Ed Admission (Communication) (03/14/23 20:31) Code/Resuscitation (03/14/23 20:49) Medications Given in ED Vital Signs/I&O 03/14/23 03/14/23 16:51 16:55 Temp 37.0 Pulse 70 Resp 16 B/P (MAP) 136/96 (109) Pulse Ox 95 O2 Delivery Room Air 03/15/23 00:00 Intake Total 500 ml Balance 500 ml Capillary Refill : Less Than 3 Seconds Blood Pressure Mean: 109 Point of Care Testing Finger Stick Blood Glucose: 124 Progress Note #1: Time: 20:20 Progress Note Labs were obtained, reviewed, and interpreted by me. CBC was unremarkable. There was no leukocytosis or elevation in CRP to suggest infection. CMP was relatively unremarkable. Renal function was normal. Troponin was negative. BNP was significantly elevated at around 11,000. I reviewed 2 view chest x-ray and compared with prior. There seem to be significant increase in pulmonary edema and pleural effusions. This suggests worsening of her chronic CHF. Patient had been given normal saline 500 mL initially as she appeared very dry on exam. However, in light of the results from her work-up, Lasix seems appropriate. On reexamination patient still had increased work of breathing and JVD seem more prominent. I discussed the case with Dr. Hernandez, organic chemist on- call. He recommended administering Lasix 40 mg IV. This is being accompanied by potassium 10 mg orally. Case was discussed with Dr. Wiggins, admitting hospitalist. She agrees to admission. Evening dose of Eliquis will be given in the emergency room. She already took her aspirin 81 mg this morning. Progress Note #2: Time: 20:48 Progress Note CODE STATUS was discussed with patient and her . Patient elects a DO NOT RESUSCITATE order. ECG Initial ECG Impression Date: Mar 14, 2023 Initial ECG Impression Time: 16:55 Initial ECG Rate: 71 Comment Paced rhythm. No ischemia noted. Diagnostic Imaging Diagonstic Imaging: Xray Plain Films/CT/US/NM/MRI: chest Comments NAME: YANNA LONG [facility] REC#: [id number] PT STATUS: REG ER : 1935 PHYSICIAN: HARMONY JIANG MD ADMIT DATE: 03/14/23/ER Draft Date of Exam:03/14/23 CHEST PA/LAT (2 VIEW) INDICATION: Cough, SOA. TECHNIQUE: Two view chest 7:06 PM CORRELATION STUDY: 01/12/2023 FINDINGS: Yvpgn-vx-lxzonxat bilateral pleural effusions adversely increased from prior, left greater than right. Associated atelectasis, infiltrate or edema both lung bases. Heart size somewhat obscured but appears to be enlarged and the vasculature appears overall increased from prior. There is aortic valve stent along with 2 electronic devices over the chest. Asymmetric pleural thickening right lung apex stable to slightly more prominent. Mild accentuated thoracic kyphosis. Prominent calcification of the abdominal aorta. Visualized osseous structures are unremarkable. IMPRESSION: 1. Increasing overall edema which includes bilateral pleural effusions, left greater than right. Associated atelectasis, infiltrate or edema both lung bases. Findings appear to be superimposed on chronic lung disease. Dictated on workstation # [id number] Dict: 03/14/231910 Trans: 03/14/231940 TRUDI [id number] Interpreted by: DYLON JOYA DO Departure Communication (Admissions) Time/Spoke to Admitting Phy: 20:15 Dr. Wiggins Time/Spoke to Consulting Phy: 20:10 Dr. Hernandez Impression Primary Impression: Acute exacerbation of congestive heart failure Qualified Codes: I50.9 - Heart failure, unspecified Additional Impressions: Dyspnea Qualified Codes: R06.00 - Dyspnea, unspecified Generalized weakness Disposition: ADMITTED INPATIENT Condition: Stable Admissions Decision to Admit Reason: Admit from ER (General) Decision to Admit/Date: Mar 14, 2023 Time/Decision to Admit Time: 20:15 Departure-Patient Inst. Referrals: ZEV BRADSHAW MD (PCP/Family) Primary Care Physician Copy Copies To 1: ZEV BRADSHAW MD Copies To 2: OWEN OROZCO MD FACP [facility] HARMONY JIANG MD Mar 14, 2023 19:19
--- NOTE | 2023-03-14 19:42 | Diagnostic Imaging Report ---
INDICATION: Cough, SOA. TECHNIQUE: Two view chest 7:06 PM CORRELATION STUDY: 01/12/2023 FINDINGS: Bgphz-tx-yvtsimev bilateral pleural effusions adversely increased from prior, left greater than right. Associated atelectasis, infiltrate or edema both lung bases. Heart size somewhat obscured but appears to be enlarged and the vasculature appears overall increased from prior. There is aortic valve stent along with 2 electronic devices over the chest. Asymmetric pleural thickening right lung apex stable to slightly more prominent. Mild accentuated thoracic kyphosis. Prominent calcification of the abdominal aorta. Visualized osseous structures are unremarkable. IMPRESSION: 1. Increasing overall edema which includes bilateral pleural effusions, left greater than right. Associated atelectasis, infiltrate or edema both lung bases. Findings appear to be superimposed on chronic lung disease. Dictated by: Dictated on workstation # [id number]
[2023-03-14] MEDS ORDERED: KCL 10 MEQ TAB (MICRO K) PO ONE ×2 (20:15→20:22)
[2023-03-14] MEDS ORDERED: FUROSEMIDE 40 MG/4 ML INJ (LASIX) IVP ONE (20:15)
[2023-03-14] MEDS ORDERED: FUROSEMIDE 40 MG/4 ML INJ (LASIX) ONE (20:22)
[2023-03-14] MEDS ORDERED: APIXABAN 2.5 MG (ELIQUIS) TABLET PO ONE (20:30)
[2023-03-14] MEDS ORDERED: MELATONIN 3 MG TABLET PO PRN (22:15)
[2023-03-14] MEDS ORDERED: HYDROmorphone 2 MG/ML VIAL (DILAUDID) IV PRN (22:15)
[2023-03-14] MEDS ORDERED: diphenhydrAMINE 25 MG TAB (BENADRYL) PO PRN (22:15)
[2023-03-14] MEDS ORDERED: ACETAMINOPHEN 325 MG TABLET PO PRN (22:15)
[2023-03-14] MEDS ORDERED: ONDANSETRON 4 MG (ZOFRAN) ORAL DISSOLVE TAB PO PRN (22:15)
[2023-03-14] MEDS ORDERED: cloNIDine 0.1 MG (CATAPRES) TAB PO PRN (22:15)
[2023-03-14] MEDS ORDERED: ONDANSETRON 4 MG/2 ML (SDV) Z0FRAN IV PRN (22:15)
[2023-03-14] MEDS ORDERED: CALCIUM CARBONATE 500 MG (TUMS) TAB.CHEW PO PRN (22:15)
[2023-03-14] MEDS ORDERED: diphenhydrAMINE 50 MG/ML INJ (BENADRYL) IVP PRN (22:15)
[2023-03-14] MEDS ORDERED: LACTULOSE SYRUP 10GM/15ML (ENULOSE) 30ML UDC PO PRN (22:15)
[2023-03-14] MEDS ORDERED: BISACODYL 10 MG SUPP (DULCOLAX) PR PRN (22:15)
[2023-03-14] MEDS ORDERED: polyethylene glycoL POWDER 17 GM (MIRALAX) PACK PO PRN (22:15)
[2023-03-14] MEDS ORDERED: ANTACID SUSP 30 ML UDC (MYLANTA) PO PRN (22:15)
[2023-03-14] MEDS ORDERED: MILK OF MAGNESIA 400 MG/5 ML 30 ML UDC PO PRN (22:15)
[2023-03-14 22:21] VITALS: BP 136/96
[2023-03-14] MEDS ORDERED: RT-ALBUTEROL/IPRATROPIUM 3 ML (DUONEB) VIAL INH PRN (22:30)
[2023-03-14 22:35] VITALS: BP 132/84
[2023-03-14 23:29] VITALS: BP 159/73
[2023-03-15 03:13] VITALS: BP 158/84
[2023-03-15 05:33] LABS: BASOPHILS % (AUTO) 1 % (0-10); EOSINOPHILS % (AUTO) 1 % (0-10); HEMATOCRIT 36 % (35-52); HEMOGLOBIN 12.3 g/dL (11.5-16.0); LYMPHOCYTES # (AUTO) 0.7 10^3/uL (1.0-4.0); LYMPHOCYTES % (AUTO) 11 % (12-44); MEAN CORPUSCULAR HEMOGLOBIN 29 pg (25-34); MEAN CORPUSCULAR HGB CONC 34 g/dL (32-36); MEAN CORPUSCULAR VOLUME 86 fL (80-99); MEAN PLATELET VOLUME 9.9 fL (9.0-12.2); MONOCYTES # (AUTO) 0.4 10^3/uL (0.0-1.0); MONOCYTES % (AUTO) 7 % (0-12); NEUTROPHILS # (AUTO) 4.9 10^3/uL (1.8-7.8); NEUTROPHILS % (AUTO) 81 % (42-75); PLATELET COUNT 246 10^3/uL (130-400); WHITE BLOOD COUNT 6.1 10^3/uL (4.3-11.0)
[2023-03-15 05:55] LABS: ALBUMIN 3.4 GM/DL (3.2-4.5); BILIRUBIN,TOTAL 0.9 MG/DL (0.1-1.0); CALCIUM 8.3 MG/DL (8.5-10.1); CREATININE SERUM 0.74 MG/DL (0.60-1.30); POTASSIUM 3.6 MMOL/L (3.6-5.0); TOTAL PROTEIN 5.9 GM/DL (6.4-8.2)
--- NOTE | 2023-03-15 06:07 | History & Physical ---
History of Present Illness HPI/Chief Complaint Chief complaint: Acute exacerbation of congestive heart failure HPI: This is an 87-year-old female clinic patient of [facility] who has a past medical history of diastolic heart failure who presented with volume overload and shortness of breath with hypoxia. Patient has had successful diuresis. Patient is breathing better. PT and OT will be evaluating the patient. Cardiology consult appreciated. Source: patient, RN/MD Exam Limitations: no limitations Date Seen 03/15/23 Time Seen by a Provider: 10:00 Attending Physician Anum Bradshaw MD PCP Admitting Physician: Shannan Wiggins DO Attending Physician: Shannan Wiggins DO Referring Physician Date of Admission Mar 14, 2023 at 21:47 Home Medications & Allergies Home Medications Reviewed patient Home Medication Reconciliation performed by pharmacy medication reconciliations mechanical laboratory technician and/or nursing. Patients Allergies have been reviewed. Allergies Allergies Coded Allergies bacitracin (Verified Allergy, Mild, RASH, 10/15/19) lidocaine (Verified Allergy, Mild, RASH, 10/15/19) neomycin (Verified Allergy, Mild, RASH, 10/15/19) polymyxin B (Verified Allergy, Mild, RASH, 10/15/19) pramoxine (Verified Allergy, Mild, RASH, 10/15/19) Past Sregftq-Ebgkzi-Yeuiop Hx Past Med/Social Hx: Reviewed Nursing Past Med/Soc Hx, Reviewed and Corrections made Patient Social History Marrital Status: Employed/Student: retired Alcohol Use: Denies Use Smoking Status: Never a Smoker 2nd Hand Smoke Exposure: No Recent Hopitalizations: No Immunizations Up To Date Tetanus Booster (TDap): Unknown Date of Pneumonia Vaccine: Jul 01, 2019 Date of Influenza Vaccine: Jul 01, 2019 Seasonal Allergies Seasonal Allergies: No Past Medical History Surgeries: Orthopedic, Pacemaker, Valve Replacement Currently Using CPAP: No Currently Using BIPAP: No Cardiac: Atrial Fibrillation, High Cholesterol, Hypertension Reproductive: No Sexually Transmitted Disease: No HIV/AIDS: No Female 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: Denies Tubal Ligation Gastrointestinal: Gastroesophageal Reflux, Obstructive Bowel, Chronic Constipation, Hiatal Hernia Musculoskeletal: Arthritis HEENT: Macular Degeneration Loss of Vision: Denies Hearing Impairment: Denies Psychosocial: Depression History of Blood Disorders: No Adverse Reaction to Blood Caballero: No (HAS HAD BLOOD WITH NO REACTION) Family History Congenital disease G8 BROTHER (? DOWN SYNDROME) Hypertension 19 MOTHER G8 SISTER Kidney disease sister Myocardial infarction 19 FATHER Neoplasm 19 MOTHER (BREAST CANCER) Visual disorder 19 MOTHER (MACULAR DEGENERATION) Heart Disease, Cancer, Hypertension History per records this patient has altered mental status Review of Systems Constitutional: see HPI, dizziness, malaise, weakness Respiratory: dyspnea on exertion, short of breath Cardiovascular: edema, palpitations Physical Exam Physical Exam Vital Signs Vital Signs - First Documented 03/14/23 03/14/23 03/14/23 16:51 16:55 22:21 Temp 37.0 Pulse 70 Resp 16 B/P (MAP) 136/96 (109) Pulse Ox 95 O2 Delivery Room Air FiO2 21 Capillary Refill : Less Than 3 Seconds Height, Weight, BMI Height: 5'3.00" Weight: 82lbs. 6.4oz. 37.420489eh; 18.04 BMI Method:Stated General Appearance: No Apparent Distress, WD/WN, Chronically ill HEENT: PERRL/EOMI, Normal ENT Inspection, Other (Oropharynx very dry) Neck: JVD (Minimal) Respiratory: Lungs Clear, No Accessory Muscle Use, No Respiratory Distress; No Crackles; Decreased Breath Sounds (Decreased breath sounds, especially in the left base); No Wheezing Cardiovascular: Regular Rate, Rhythm, No Edema, Systolic Murmur Gastrointestinal: Non Tender, Soft Extremity: Normal Inspection, Non Tender, No Pedal Edema Neurologic/Psychiatric: Alert, Oriented x3, No Motor/Sensory Deficits, Normal 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 Assessment/Plan Admission Diagnosis Assessment: Acute exacerbation of congestive heart failure Hypertension Advanced age Hypoxia Acute respiratory failure Plan: IV diuresis Supportive care Monitor closely PT and OT Admission Status: Observation SHANNAN WIGGINS DO Mar 15, 2023 06:07
[2023-03-15] MEDS: FUROSEMIDE 40 MG/4 ML INJ (LASIX) IV SCH (06:23)
[2023-03-15] MEDS: DOCUSATE SODIUM 100 MG (COLACE) CAP PO SCH ×2 (08:12→20:42)
[2023-03-15] MEDS: APIXABAN 2.5 MG (ELIQUIS) TABLET PO SCH ×2 (08:12→20:41)
[2023-03-15] MEDS: SENNOSIDES 8.6 MG (SENOKOT) TAB PO SCH ×2 (08:12→20:41)
[2023-03-15 08:22] VITALS: BP 155/79
--- NOTE | 2023-03-15 09:59 | Physical Therapy Evaluation ---
PT Evaluation-General Medical Diagnosis Admission Date Mar 14, 2023 at 21:47 Medical Diagnosis: CHF exacerbation Onset Date: Mar 14, 2023 Therapy Diagnosis Therapy Diagnosis: unsteady gait Height/Weight Height (Feet): 5 Height (Inches): 3.00 Weight (Pounds): 82 Weight (Ounces): 6.4 Precautions Precautions/Isolations: Fall Prevention, Standard Precautions Referral Physician: Shannan Wiggins Reason for Referral: Evaluation/Treatment Medical History Pertinent Medical History: Arthritis, GERD, HTN, OA Additional Medical History Pacemaker, valve replacement, hip fx Social History Home: Single Level Current Living Status: Spouse Entry Into Home: Stairs With Railing PT Steps Into Home: 2 Pt independent at home with use of FWW Prior Prior Level of Function SCALE: Activities may be completed with or without assistive devices. 1-Bawtvtkiyq-zkfwynp completes the activity by him/herself with no assistance from a helper. 5-Set-up or Clean-up Assistance-helper sets up or cleans up; patient completes activity. Dale assists only prior to or following the activity. 4-Supervision or Touching Assistance-helper provides verbal cues and/or touching/steadying and/or contact guard assistance as patient completes activity. Assistance may be provided throughout the activity or intermittently. 3-Partial/Moderate Assistance-helper does LESS THAN HALF the effort. Dale lifts, holds or supports trunk or limbs, but provides less than half the effort. 2-Substantial/Maximal Assistance-helper does MORE THAN HALF the effort. Dale lifts or holds trunk or limbs and provides more than half the effort. 9-Znfmwukgw-tmmqhn does ALL the effort. Patient does none of the effort to complete the activity. Or, the assistance of 2 or more helpers is required for the patient to complete the activity. If activity was not attempted, code reason: 7-Patient Refused. 9-Not Applicable-not attempted and the patient did not perform the activity before the current illness, exacerbation or injury. 10-Not Attempted due to Environmental Limitations-(lack of equipment, weather restraints, etc.). 88-Not Attempted due to Medical Conditions or Safety Concerns. Bed Mobility: 6 Transfers (B,C,W/C): 6 Gait: 6 Stairs: 6 PT Evaluation-Current Subjective Admitted to ER with SOB, nausea, and unsteady gait. Objective Patient Orientation: Normal For Age Attachments: Santoro Catheter ROM/Strength Strength Upper Extremities WFL Strength Lower Extremities 4/5 Sensory Vision: Blind Legally Hearing: Functional Transfers Roll Left to Right (QC): 6 Sit to Lying (QC): 6 Lying to Sitting/Side of Bed(Q: 6 Sit to Stand (QC): 6 Chair/Wuz-ty-Aomuh Xfer(QC): 4 steadying assist for transfer Gait Does the Patient Walk?: Yes Mode of Locomotion: Walk Anticipated Mode of Locomotion: Walk Walk 150 ft (QC): 4 Distance: 200ft Gait Assistive Device: FWW Comments/Gait Description steady gait, CGA for safety Balance Sitting Static: Normal Sitting Dynamic: Normal Standing Static: Fair Standing Dynamic: Fair Assessment/Needs Pt was able to get in and out of bed without assist. She walked with minor instability using a FWW but she indicates it is her baseline gait. She says she might be slightly more fatigued. Rehab Potential: Good PT Director Of Event Marketing Goals Director Of Event Marketing Goals PT Director Of Event Marketing Goals Time Frame: Mar 22, 2023 Roll Left & Right (QC): 6 Sit to Lying (QC): 6 Lying-Sitting on Side/Bed(QC): 6 Sit to Stand (QC): 6 Chair/Lhx-ms-Froid Xfer(QC): 6 Walk 150 ft (QC): 6 PT Plan Problem List Problem List: Balance, Gait Treatment/Plan Treatment Plan: Continue Plan of Care Treatment Plan: Functional Strength, Gait Treatment Duration: Mar 22, 2023 Frequency: 6 times per week Estimated Hrs Per Day: .25 hour per day Patient and/or Family Agrees t: Yes Time Time In: 924 Time Out: 949 DATE: Mar 15, 2023 Total Billed Treatment Time: 25 Total Billed Treatment visit, nasir moderate complexity 25 min ZULAY REGAN PT Mar 15, 2023 09:59
--- NOTE | 2023-03-15 11:14 | Occupational Therapy Eval ---
OT Evaluation-General/PLF Medical Diagnosis Admission Date Mar 14, 2023 at 21:47 Medical Diagnosis: CHF exacerbation Onset Date: Mar 14, 2023 Therapy Diagnosis Therapy Diagnosis: unsteady balance, General weakness Height/Weight Height (Feet): 5 Height (Inches): 3.00 Weight (Pounds): 82 Weight (Ounces): 6.4 Precautions Precautions/Isolations: Fall Prevention, Standard Precautions Weight Bear Status Weight Bearing Restriction: Full Weight Bearing Referral Physician: Shannan Wiggins Referral Reason: Activity Tolerance, Evaluation/Treatment, Strengthening/ROM Medical History Pertinent Medical History: Arthritis, GERD, HTN, Macular Degenertion, OA Additional Medical History 87-year-old woman presents to the emergency room with primary complaint of w orsening shortness of breath, generalized weakness, and unsteadiness on her feet. She has spent most of the day in bed. She can still get up with a walker but is more unsteady than usual. She was also nauseated this morning but has not been vomiting. She is treated for congestive heart failure and has an artificial heart valve. Dr. Orozco is her primary city route driver in [place]. She has also seen Dr. Coulter in [place]. Dr. Bradshaw is her primary care provider. She has had some cough with her shortness of breath over the last couple of days but denies any fever Social History Home: Single Level Current Living Status: Spouse Entry Into Home: Stairs With Railing Steps Into Home: 2 ADL-Prior Level of Function SCALE: Activities may be completed with or without assistive devices. 6-Hhdrpqohmq-pukppun completes the activity by him/herself with no assistance from a helper. 5-Set-up or Clean-up Assistance-helper sets up or cleans up; patient completes activity. [place] assists only prior to or following the activity. 4-Supervision or Touching Assistance-helper provides verbal cues and/or touching/steadying and/or contact guard assistance as patient completes activity. Assistance may be provided throughout the activity or intermittently. 3-Partial/Moderate Assistance-helper does LESS THAN HALF the effort. [place] lifts, holds or supports trunk or limbs, but provides less than half the effort. 2-Substantial/Maximal Assistance-helper does MORE THAN HALF the effort. [place] lifts or holds trunk or limbs and provides more than half the effort. 1-Ubimmtyva-xbopwk does ALL the effort. Patient does none of the effort to com plete the activity. Or, the assistance of 2 or more helpers is required for the patient to complete the activity. If activity was not attempted, code reason: 7-Patient Refused. 9-Not Applicable-not attempted and the patient did not perform the activity before the current illness, exacerbation or injury. 10-Not Attempted due to Environmental Limitations-(lack of equipment, weather restraints, etc.). 88-Not Attempted due to Medical Conditions or Safety Concerns. 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 Patient reports loss of Balance at home often to left side when reaching forward Upper Extremity Sensation INTACT per patient report Upper Extremity Strength Right shoulder 3/5 with flexion- patient reports old injury, ABD/AD WFLS. LUE WNLs ADL-Treatment ADL-Current Residual toothpaste on mouth on OT entry, dons sock EOB in siting w/o LOB of SOA Eating (QC): 6 Oral Hygiene (QC): 6 Shower/Bathe Self (QC): 7 Upper Body Dressing (QC): 5 Lower Body Dressing (QC): 4 On/Off Footwear (QC): 5 Toileting Hygiene (QC): 4 Other Treatments Dynamic standing functional reach tasks Education OT Patient Education: Correct positioning, Exercise program, Modified ADL techniques, Progress toward Goal/Update tx plan, Purpose of tx/functional activities, Reviewed precautions, Rehab process, Safety issues, Transfer techniques Teaching Recipient: Patient, Family Teaching Methods: Demonstration, Discussion Response to Teaching: Return Demonstration, Reinforcement Needed OT Commercial Banker Goals Commercial Banker Goals Eating (QC): 6 Oral Hygiene (QC): 6 Toileting Hygiene (QC): 6 Shower/Bathe Self (QC): 6 Upper Body Dressing (QC): 6 Lower Body Dressing (QC): 6 On/Off Footwear (QC): 6 1=Demonstrate adherence to instructed precautions during ADL tasks. 2=Patient will verbalize/demonstrate understanding of assistive devices/modifications for ADL. 3=Patient will improve strength/tolerance for activity to enable patient to perform ADL's. OT Education/Plan Problem List/Assessment Assessment: Decreased Activ Tolerance, Decreased UE Strength, Impaired Funct Balance, Impaired Self-Care Skills, Restricted Funct UE ROM Discharge Recommendations Plan/Recommendations: Continue POC Treatment Plan/Plan of Care Patient would benefit from OT for education, treatment and training to promote independence in ADL's, mobility, safety and/or upper extremity function for ADL's. Plan of Care: ADL Retraining, Concurrent Therapy, Functional Mobility, Group Exercise/Act as Ind, UE Funct Exercise/Act Treatment Duration: Mar 18, 2023 Frequency: 3 times per week (3-5 times per week) Rehab Potential: Good Time Start Time: 10:20 Stop Time: 10:41 DATE: Mar 15, 2023 Total Time Billed (hr/min): 21 Billed Treatment Time EVM 21 min MATHIEU MATHEW OT Mar 15, 2023 11:14
--- NOTE | 2023-03-15 11:31 | Consultation-Cardiology ---
HPI-Cardiology Cardiology Consultation Date of Consultation 03/15/23 Date of Admission Time Seen by Provider: 09:00 Indication: AE CHF HPI Patient is an 87 y/o female with history of , s/p TAVR in 2021, CHF, CAD, HTN. Presented to the ER with increased dyspnea on exertion and increased fatigue and nausea over the past 2 days. Denies any chest pain. Denies dizziness or syncope. Workup done in ER showing elevated BNP and bilat pleural effusion of CXR. Upon interviewing the patient she is reporting some improvement of her symptoms, states dyspnea is improving some. Responded well to diuresis. Patient reports she follows both with Dr. Orozco and Dr. Coulter. Home Medications & Allergies Allergies: Coded Allergies: bacitracin (Verified Allergy, Mild, RASH, 10/15/19) lidocaine (Verified Allergy, Mild, RASH, 10/15/19) neomycin (Verified Allergy, Mild, RASH, 10/15/19) polymyxin B (Verified Allergy, Mild, RASH, 10/15/19) pramoxine (Verified Allergy, Mild, RASH, 10/15/19) Home Medication List Reviewed: Yes HMO-Opykwb-Yxjsqw Hx Patient Social History Marital Status: Employed/Student: retired Smoking Status: Never a Smoker 2nd Hand Smoke Exposure: No Recent Hopitalizations: No Alcohol Use?: No Immunizations Up To Date Tetanus Booster (TDap): Unknown Date of Pneumonia Vaccine: Jul 01, 2019 Date of Influenza Vaccine: Jul 01, 2019 Past Medical History , s/p TAVR, CAD, CHF, HTN, PAF Family Medical History Significant Family History: Heart Disease, Cancer, Hypertension Family History: Congenital disease G8 BROTHER (? DOWN SYNDROME) Hypertension 19 MOTHER G8 SISTER Kidney disease sister Myocardial infarction 19 FATHER Neoplasm 19 MOTHER (BREAST CANCER) Visual disorder 19 MOTHER (MACULAR DEGENERATION) Review of Systems-General Review of Systems Constitutional: see HPI EENTM: other (Dry mucous membranes) Respiratory: see HPI, dyspnea on exertion, orthopnea Cardiovascular: see HPI; No chest pain Gastrointestinal: see HPI Genitourinary: no symptoms reported Musculoskeletal: no symptoms reported Skin: no symptoms reported Psychiatric/Neurological: No Symptoms Reported Reviewed Test Results Reviewed Test Results Lab Laboratory Tests 03/14/23 15:28: SARS-CoV-2 RNA (RT-PCR) Not Detected 03/14/23 16:55: White Blood Count 5.1, Red Blood Count 4.03, Hemoglobin 12.1, Hematocrit 36, Mean Corpuscular Volume 88, Mean Corpuscular Hemoglobin 30, Mean Corpuscular Hemoglobin Concent 34, Red Cell Distribution Width 17.3H, Platelet Count 241, Mean Platelet Volume 9.8, Immature Granulocyte % (Auto) 0, Neutrophils (%) (Auto) 75, Lymphocytes (%) (Auto) 16, Monocytes (%) (Auto) 8, Eosinophils (%) (Auto) 1, Basophils (%) (Auto) 0, Neutrophils # (Auto) 3.8, Lymphocytes # (Auto) 0.8L, Monocytes # (Auto) 0.4, Eosinophils # (Auto) 0.1, Basophils # (Auto) 0.0, Immature Granulocyte # (Auto) 0.0, Sodium Level 131L, Potassium Level 4.2, Chloride Level 100, Carbon Dioxide Level 21, Anion Gap 10, Blood Urea Nitrogen 11, Creatinine 0.74, Estimat Glomerular Filtration Rate 77, BUN/Creatinine Ratio 15, Glucose Level 109H, Calcium Level 8.5, Corrected Calcium 8.7, Magnesium Level 1.7, Total Bilirubin 0.8, Aspartate Amino Transf (AST/SGOT) 43H, Alanine Aminotransferase (ALT/SGPT) 31, Alkaline Phosphatase 84, Troponin I < 0.028, C- Reactive Protein High Sensitivity 0.15, B-Type Natriuretic Peptide 12240.2H, Total Protein 6.4, Albumin 3.7 03/14/23 16:58: Glucometer 124H 03/14/23 18:46: Urine Color YELLOW, Urine Clarity CLEAR, Urine pH 6.5, Urine Specific [place] 1.010L, Urine Protein NEGATIVE, Urine Glucose (UA) NEGATIVE, Urine Ketones 1+H, Urine Nitrite NEGATIVE, Urine Bilirubin NEGATIVE, Urine Urobilinogen 1.0, Urine Leukocyte Esterase NEGATIVE, Urine RBC (Auto) 2+H, Urine RBC 10-25H, Urine WBC 0-2, Urine Squamous Epithelial Cells 2-5, Urine Crystals PRESENTH, Urine Ryan phous Sediment RARE RYAN URATESH, Urine Bacteria TRACE, Urine Casts NONE, Urine Mucus SMALLH, Urine Culture Indicated NO 03/15/23 05:17: White Blood Count 6.1, Red Blood Count 4.21, Hemoglobin 12.3, Hematocrit 36, Mean Corpuscular Volume 86, Mean Corpuscular Hemoglobin 29, Mean Corpuscular Hemoglobin Concent 34, Red Cell Distribution Width 17.1H, Platelet Count 246, Mean Platelet Volume 9.9, Immature Granulocyte % (Auto) 0, Neutrophils (%) (Auto) 81H, Lymphocytes (%) (Auto) 11L, Monocytes (%) (Auto) 7, Eosinophils (%) (Auto) 1, Basophils (%) (Auto) 1, Neutrophils # (Auto) 4.9, Lymphocytes # (Auto) 0.7L, Monocytes # (Auto) 0.4, Eosinophils # (Auto) 0.0, Basophils # (Auto) 0.0, Immature Granulocyte # (Auto) 0.0, Sodium Level 132L, Potassium Level 3.6, Chloride Level 101, Carbon Dioxide Level 19L, Anion Gap 12, Blood Urea Nitrogen 13, Creatinine 0.74, Estimat Glomerular Filtration Rate 77, BUN/Creatinine Ratio 18, Glucose Level 95, Calcium Level 8.3L, Corrected Calcium 8.8, Total Bilirubin 0.9, Aspartate Amino Transf (AST/SGOT) 29, Alanine Aminotransferase (ALT/SGPT) 24, Alkaline Phosphatase 72, Total Protein 5.9L, Albumin 3.4 Physical Exam Physical Exam Vital Signs Vital Signs - First Documented 03/14/23 03/14/23 03/14/23 16:51 16:55 22:21 Temp 37.0 Pulse 70 Resp 16 B/P (MAP) 136/96 (109) Pulse Ox 95 O2 Delivery Room Air FiO2 21 Capillary Refill : Less Than 3 Seconds Height, Weight, BMI Height: 5'3.00" Weight: 82lbs. 6.4oz. 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 2D Echo done February 2022 showing mild concentr ic hypertrophy, EF 55-60%, grade 2 diastolic dyfunction. AV with prior repair procedure including trancatheter aortic valve replacement, appeared to be functioning normally. Repeat echo done 03/15/23 showing severe concentric hypertrophy, EF 15-20%, severe diffuse hypokinesis. Bioprosthetic valve in aortic position with moderate stenosis. Peak gradient across akira prosthetic valve 23mmHg, mean gradient 11mmHg, valve area 1.06cm. PA 35-40mmHg. Overall, there is questionable infiltrative disease. Continue to diurese, restart home beta blake and losartan Bilateral pleural effusion noted on CXR done 03/14/23. History of thoracentesis in December 2022. Will continue to diruese and monitor closely Aortic stenosis, S/P TAVR (#23 Ultra Nora) by Dr. 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 Zaomra on 02-04-22 for3rd degree heart block at time of TAVR on 02-03-22 Echo done 03/15/23 showing severe concentric hypertrophy, EF 15-20%, severe diffuse hypokinesis. Bioprosthetic valve in aortic position with moderate stenosis. Peak gradient across akira prosthetic valve 23mmHg, mean gradient 11mmHg, valve area 1.06cm. PAF/flutter, ILR implanted 01-13-20 first seen on ILR interrogation of January 2020 Maintained on Eliquis (low dose d/t advanced age and weight) Coronary artery disease Cardiac cath of 01-04-22: diffuse and moderate. The first diagonal branch of the left anterior descending artery, relatively small in caliber, has 80 to 90% ostial stenosis and the first obtuse marginal branch of the left circumflex has 60% to 70% ostial stenosis. Right coronary artery has approximately 50% ostial stenosis. Labile HTN that has been difficult to control, I will restart home Toprol XL and losartan and continue to monitor. Hypertensive encephalopathy and confusion in May 2022 History of Syncopal episodes x 2 of undetermined etiology, possibly orthostatic hypotension but cannot exclude bradycardia Denies any recent episode. Carotid artery stenosis. Carotid u/s of 08-30-22 showed - Approx 60% R ICA stenosis; less than 40% L ICA Depression, managed by primary care physician Family h/o CAD Thank you for allowing us to participate in the management of Ms. Nguyen. This is Veronica Solis PA-C, as a scribe for Dr. Hernandez. Patient was seen and evaluated with Veronica, I interviewed and examined the patient and discussed the management plan with Veronica, agree with the current scribed note Patient was admitted for increasing fatigue, weakness and shortness of breath, nausea. Responded well to 40 mg of Lasix Review of her echo showed left ventricular hypertrophy with questionable infiltrative disease, continue with aggressive diuresis, has a pacemaker implanted Consider thoracentesis again if she continued to be symptomatic Monitor blood pressure and renal function closely. VERONICA MOON Mar 15, 2023 11:31 CODY HERNANDEZ MD Mar 15, 2023 13:03
[2023-03-15] MEDS: LOSARTAN 100 MG (COZAAR) TABLET PO SCH (11:47)
[2023-03-15 12:15] VITALS: BP 158/70
[2023-03-15] MEDS ORDERED: FERR325T18 PO (13:58)
[2023-03-15] MEDS ORDERED: MAGN250T35 PO (13:58)
[2023-03-15] MEDS ORDERED: MTP100TCR PO (13:58)
[2023-03-15] MEDS ORDERED: DOXA2TAB2 PO (13:58)
[2023-03-15] MEDS ORDERED: SACU1TAB7 PO (13:58)
[2023-03-15] MEDS ORDERED: ESOM40CA52 PO (13:58)
[2023-03-15] MEDS ORDERED: PYRI50TA PO (13:58)
[2023-03-15] MEDS ORDERED: DOCU100T2 PO (14:01)
[2023-03-15 16:25] VITALS: BP 126/78
[2023-03-15 19:57] VITALS: BP 137/67
[2023-03-16] VITALS (7 sets, daily range): BP systolic 119–179; BP diastolic 76–84
[2023-03-16 05:52] LABS: BASOPHILS % (AUTO) 0 % (0-10); EOSINOPHILS # (AUTO) 0.2 10^3/uL (0.0-0.3); EOSINOPHILS % (AUTO) 3 % (0-10); HEMATOCRIT 34 % (35-52); HEMOGLOBIN 11.5 g/dL (11.5-16.0); LYMPHOCYTES # (AUTO) 0.7 10^3/uL (1.0-4.0); LYMPHOCYTES % (AUTO) 13 % (12-44); MEAN CORPUSCULAR HEMOGLOBIN 30 pg (25-34); MEAN CORPUSCULAR HGB CONC 34 g/dL (32-36); MEAN CORPUSCULAR VOLUME 86 fL (80-99); MEAN PLATELET VOLUME 9.5 fL (9.0-12.2); MONOCYTES # (AUTO) 0.5 10^3/uL (0.0-1.0); MONOCYTES % (AUTO) 9 % (0-12); NEUTROPHILS # (AUTO) 4.1 10^3/uL (1.8-7.8); NEUTROPHILS % (AUTO) 74 % (42-75); PLATELET COUNT 224 10^3/uL (130-400); WHITE BLOOD COUNT 5.5 10^3/uL (4.3-11.0)
[2023-03-16 05:57] LABS: ALBUMIN 3.2 GM/DL (3.2-4.5); POTASSIUM 3.5 MMOL/L (3.6-5.0)
[2023-03-16 05:58] LABS: CALCIUM 8.2 MG/DL (8.5-10.1)
[2023-03-16 05:59] LABS: TOTAL PROTEIN 5.5 GM/DL (6.4-8.2)
[2023-03-16 06:01] LABS: BILIRUBIN,TOTAL 0.6 MG/DL (0.1-1.0)
[2023-03-16 06:03] LABS: CREATININE SERUM 0.75 MG/DL (0.60-1.30)
[2023-03-16] MEDS: FUROSEMIDE 40 MG/4 ML INJ (LASIX) IV SCH (06:05)
[2023-03-16] MEDS: LOSARTAN 100 MG (COZAAR) TABLET PO SCH (08:27)
[2023-03-16] MEDS: DOCUSATE SODIUM 100 MG (COLACE) CAP PO SCH (08:27)
[2023-03-16] MEDS: SENNOSIDES 8.6 MG (SENOKOT) TAB PO SCH (08:27)
[2023-03-16] MEDS: APIXABAN 2.5 MG (ELIQUIS) TABLET PO SCH (08:27)
--- NOTE | 2023-03-16 08:28 | Cardiology Progress Note ---
Subjective Date Seen by Provider: Mar 16, 2023 Time Seen by Provider: 08:27 Subjective/Events-last exam Patient was seen at bedside, sitting comfortably, feeling better. Review of Systems General: No Chills, No Night Sweats, No Fatigue, No Malaise, No Appetite, No Other HEENT: No Head Aches, No Visual Changes, No Eye Pain, No Ear Pain, No Dysphasia, No Sinus Congestion, No Post Nasal Drip, No Sore Throat, No Other Pulmonary: No Dyspnea, No Cough, No Pleuritic Chest Pain, No Other Cardiovascular: No: Chest Pain, Palpitations, Orthopnea, Paroxysmal Noc. Dyspnea, Edema, Lt Headedness, Other Objective-Cardiology Exam Last Set of Vital Signs Vital Signs 03/14/23 03/16/23 03/16/23 22:21 07:20 07:32 Temp 36.4 Pulse 83 Resp 16 B/P (MAP) 164/84 (110) Pulse Ox 96 O2 Delivery Room Air FiO2 21 I&O Intake and Output 03/16/23 00:00 Intake Total 1670 ml Output Total 2650 ml Balance -980 ml Intake Oral 1670 ml Output Urine Total 2650 ml General: Alert, Oriented X3, Cooperative HEENT: Atraumatic, PERRLA Neck: Supple, No JVD, No Thyromegaly Lungs: Normal Air Movement, Other (Bilateral rhonchi) Heart: Regular Rate, Normal S1, Normal S2, No Murmurs Abdomen: Normal Bowel Sounds, Soft, No Tenderness, No Hepatosplenomegaly, No Masses Extremities: No Clubbing, No Cyanosis, No Edema, Normal Pulses, No Ten derness/Swelling Skin: No Rashes, No Breakdown, No Significant Lesion Neuro: Normal Speech, Normal Tone, Sensation Intact Psych/Mental Status: Mental Status NL, Mood NL Results Lab Laboratory Tests 03/16/23 05:25 A/P-Cardiology Admission Diagnosis AE CHF Pleural effusions CAD SSS/PAF Assessment/Plan CHF, acute LV systolic dysfunction. 2D Echo done February 2022 showing mild concentric hypertrophy, EF 55-60%, grade 2 diastolic dyfunction. AV with prior repair procedure including trancatheter aortic valve replacement, appeared to be functioning normally. Repeat echo done 03/15/23 showing severe concentric hypertrophy, EF 15-20%, severe diffuse hypokinesis. Bioprosthetic valve in aortic position with moderate stenosis. Peak gradient across akira prosthetic valve 23mmHg, mean gradient 11mmHg, valve area 1.06cm. PA 35-40mmHg. Overall, there is questionable infiltrative disease. Continue with aggressive diuretics, restarted metoprolol and losartan Responding well to diuresis. Bilateral pleural effusion noted on CXR done 03/14/23. History of thoracentesis in December 2022. Responding well to diuretics. Continue to monitor Aortic stenosis, S/P TAVR (#23 Ultra Nora) by Dr. 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 Zamora on 02-04-22 for3rd degree heart block at time of TAVR on 02-03-22 Echo done 03/15/23 showing severe concentric hypertrophy, EF 15-20%, severe diffuse hypokinesis. Bioprosthetic valve in aortic position with moderate stenosis. Peak gradient across akira prosthetic valve 23mmHg, mean gradient 11mmHg, valve area 1.06cm. PAF/flutter, ILR implanted 01-13-20 first seen on ILR interrogation of January 2020 Maintained on Eliquis (low dose d/t advanced age and weight) Coronary artery disease Cardiac cath of 01-04-22: diffuse and moderate. The first diagonal branch of the left anterior descending artery, relatively small in caliber, has 80 to 90% ostial stenosis and the first obtuse marginal branch of the left circumflex has 60% to 70% ostial stenosis. Right coronary artery has approximately 50% ostial stenosis. Labile HTN that has been difficult to control, I will restart home Toprol XL and losartan and continue to monitor. Hypertensive encephalopathy and confusion in May 2022 History of Syncopal episodes x 2 of undetermined etiology, possibly orthostatic hypotension but cannot exclude bradycardia Denies any recent episode. Carotid artery stenosis. Carotid u/s of 08-30-22 showed - Approx 60% R ICA stenosis; less than 40% L ICA Depression, managed by primary care physician Family h/o CODY SOUTH MD Mar 16, 2023 08:28
--- NOTE | 2023-03-16 10:37 | Physical Therapy Daily Note ---
PT Daily Note-Current Subjective Patient and spouse agree to PT. Pain Section J - Health Conditions 1. Rarely or not at all 2. Occasionally 3. Frequently 4. Almost constantly 8. Unable to answer Pain Effect on Sleep: 1 Pain Interference with Therapy: 1 Pain Interference w/Day-to-Day: 1 Mental Status Patient Orientation: Person, Time, Situation Attachments: Santoro Catheter Transfers SCALE: Activities may be completed with or without assistive devices. 6-Fruovnvfaa-mczawpm completes the activity by him/herself with no assistance from a helper. 5-Set-up or Clean-up Assistance-helper sets up or cleans up; patient completes activity. [place] assists only prior to or following the activity. 4-Supervision or Touching Assistance-helper provides verbal cues and/or touching/steadying and/or contact guard assistance as patient completes activity. Assistance may be provided throughout the activity or intermittently. 3-Partial/Moderate Assistance-helper does LESS THAN HALF the effort. [place] lifts, holds or supports trunk or limbs, but provides less than half the effort. 2-Substantial/Maximal Assistance-helper does MORE THAN HALF the effort. [place] lifts or holds trunk or limbs and provides more than half the effort. 3-Zjdgaddvk-tzqfga does ALL the effort. Patient does none of the effort to complete the activity. Or, the assistance of 2 or more helpers is required for the patient to complete the activity. If activity was not attempted, code reason: 7-Patient Refused. 9-Not Applicable-not attempted and the patient did not perform the activity before the current illness, exacerbation or injury. 10-Not Attempted due to Environmental Limitations-(lack of equipment, weather restraints, etc.). 88-Not Attempted due to Medical Conditions or Safety Concerns. Sit to Stand (QC): 5 Gait Training Distance: 350' Walk 10 feet (QC): 5 Walk 50 ft with 2 Turns(QC): 5 Walk 150 ft (QC): 5 Gait Assistive Device: FWW safe and functional with no deviation Assessment Patient remains up in recliner with family present. Plan dismissal this week to home with spouse PT Vascular Nurse Goals Intermediate Goals PT Vascular Nurse Goals Time Frame: Mar 22, 2023 Roll Left & Right (QC): 6 Sit to Lying (QC): 6 Lying-Sitting on Side/Bed(QC): 6 Sit to Stand (QC): 6 Chair/Xrh-on-Awtxf Xfer(QC): 6 Walk 150 ft (QC): 6 PT Plan Treatment/Plan Treatment Plan: Continue Plan of Care Treatment Plan: Functional Strength, Gait Treatment Duration: Mar 22, 2023 Frequency: 6 times per week Estimated Hrs Per Day: .25 hour per day Patient and/or Family Agrees t: Yes Time Time In: 950 Time Out: 1000 DATE: Mar 16, 2023 Total Billed Treatment Time: 10 Total Billed Treatment 1 visit FA 10 min NICKY VALADEZ PT Mar 16, 2023 10:37
--- NOTE | 2023-03-16 10:49 | Occupational Ther Daily Note ---
OT Current Status-Daily Note Subjective Patient reports she has not been out of bed since last night because she has a catheter Pain Numeric Pain Scale: 0-No Pain Mental Status/Objective Patient Orientation: Person, Place, Time, Situation Attachments: Ariza Catheter ADL-Treatment Dons robe over gown and socks while siting EOB. Therapy Code Descriptions/Definitions Functional [place] Measure: 0=Not Assessed/NA 4=Minimal Assistance 1=Total Assistance 5=Supervision or Setup 2=Maximal Assistance 6=Modified [place] 3=Moderate Assistance 7=Complete IndependenceSCALE: Activities may be completed with or without assistive devices. 5-Qzsvjustde-xqcbowy completes the activity by him/herself with no assistance from a helper. 5-Set-up or Clean-up Assistance-helper sets up or cleans up; patient completes activity. [place] assists only prior to or following the activity. 4-Supervision or Touching Assistance-helper provides verbal cues and/or touching/steadying and/or contact guard assistance as patient completes activity. Assistance may be provided throughout the activity or intermittently. 3-Partial/Moderate Assistance-helper does LESS THAN HALF the effort. [place] lifts, holds or supports trunk or limbs, but provides less than half the effort. 2-Substantial/Maximal Assistance-helper does MORE THAN HALF the effort. [place] lifts or holds trunk or limbs and provides more than half the effort. 8-Twnyhtzxs-vegtbw does ALL the effort. Patient does none of the effort to complete the activity. Or, the assistance of 2 or more helpers is required for the patient to complete the activity. If activity was not attempted, code reason: 7-Patient Refused. 9-Not Applicable-not attempted and the patient did not perform the activity before the current illness, exacerbation or injury. 10-Not Attempted due to Environmental Limitations-(lack of equipment, weather restraints, etc.). 88-Not Attempted due to Medical Conditions or Safety Concerns. Eating (QC): 6 Oral Hygiene (QC): 6 (in sitting) Shower/Bathe Self (QC): 7 Upper Body Dressing (QC): 5 Lower Body Dressing (QC): 4 (to thread ariza through garments) On/Off Footwear: 5 Toileting Hygiene (QC): 5 Toilet Transfer (QC): 5 Education OT Patient Education: Correct positioning, Exercise program, Modified ADL techniques, Progress toward Goal/Update tx plan, Purpose of tx/functional activities, Reviewed precautions, Rehab process, Safety issues, Transfer techniques, Use of adapted equipment Teaching Recipient: Patient, Friend Teaching Methods: Demonstration, Discussion Response to Teaching: Return Demonstration OT Long-Term Goals Long-Term Goals Eating (QC): 6 Oral Hygiene (QC): 6 Toileting Hygiene (QC): 6 Shower/Bathe Self (QC): 6 Upper Body Dressing (QC): 6 Lower Body Dressing (QC): 6 On/Off Footwear (QC): 6 1=Demonstrate adherence to instructed precautions during ADL tasks. 2=Patient will verbalize/demonstrate understanding of assistive devices/modifications for ADL. 3=Patient will improve strength/tolerance for activity to enable patient to perform ADL's. OT Education/Plan Problem List/Assessment Assessment: Decreased Activ Tolerance, Decreased UE Strength, Impaired Self- Care Skills Discharge Recommendations Plan/Recommendations: Continue POC Treatment Plan/Plan of Care Treatment,Training & Education: Yes Patient would benefit from OT for education, treatment and training to promote independence in ADL's, mobility, safety and/or upper extremity function for ADL's. Plan of Care: ADL Retraining, Concurrent Therapy, Functional Mobility, Group Exercise/Act as Ind, UE Funct Exercise/Act Treatment Duration: Mar 18, 2023 Frequency: 3 times per week (3-5 times per week) Rehab Potential: Good Time Start Time: 09:30 Stop Time: 09:45 DATE: Mar 16, 2023 Total Time Billed (hr/min): 15 Billed Treatment Time ADL 15 MATHIEU MATHEW OT Mar 16, 2023 10:49
[2023-03-16] MEDS ORDERED: FURO-125 PO (11:33)
[2023-03-16] MEDS ORDERED: POTA8CAP20 PO (11:33)
[2023-03-16] MEDS ORDERED: LOSA100T58 PO (11:33)
[2023-03-16] MEDS ORDERED: MTP25TSR PO (11:33)
--- NOTE | 2023-03-16 11:35 | Discharge Summary ---
Diagnosis/Chief Complaint Date of Admission Mar 14, 2023 at 21:47 Date of Discharge Discharge Date: Mar 16, 2023 Discharge Diagnosis Acute decompensated diastolic heart failure Advanced age Hypertension Hypoxia Discharge Summary Discharge Physical Examination Allergies: Coded Allergies: bacitracin (Verified Allergy, Mild, RASH, 10/15/19) lidocaine (Verified Allergy, Mild, RASH, 10/15/19) neomycin (Verified Allergy, Mild, RASH, 10/15/19) polymyxin B (Verified Allergy, Mild, RASH, 10/15/19) pramoxine (Verified Allergy, Mild, RASH, 10/15/19) Vitals & I&Os Vital Signs Date Time Temp Pulse Resp B/P (MAP) Pulse Ox O2 Delivery O2 Flow Rate FiO2 03/16/23 13:42 36.5 61 16 119/76 98 Room Air 03/14/23 22:21 21 General Appearance: Alert, Oriented X3, Cooperative Respiratory: Clear to Auscultation Cardiovascular: Regular Rate Psych/Mental Status: Mental Status NL Hospital Course Was the Problem List Reviewed?: Yes Hospital course: Patient had an uneventful hospital course after she was admitted for acute decompensated diastolic heart failure requiring cardiology consult and IV diuresis. Patient had successful diuresis with IV Lasix. Labs remained stable. Advanced age precludes anything but a poor prognosis but she did appear to be more comfortable and less short of breath and did not need home oxygen after evaluation so she was discharged in improved condition. Labs (last 24 hrs) Laboratory Tests 03/14/23 15:28: SARS-CoV-2 RNA (RT-PCR) Not Detected 03/14/23 16:55: White Blood Count 5.1, Red Blood Count 4.03, Hemoglobin 12.1, Hematocrit 36, Mean Corpuscular Volume 88, Mean Corpuscular Hemoglobin 30, Mean Corpuscular Hemoglobin Concent 34, Red Cell Distribution Width 17.3H, Platelet Count 241, Mean Platelet Volume 9.8, Immature Granulocyte % (Auto) 0, Neutrophils (%) (Auto) 75, Lymphocytes (%) (Auto) 16, Monocytes (%) (Auto) 8, Eosinophils (%) (Auto) 1, Basophils (%) (Auto) 0, Neutrophils # (Auto) 3.8, Lymphocytes # (Auto) 0.8L, Monocytes # (Auto) 0.4, Eosinophils # (Auto) 0.1, Basophils # (Auto) 0.0, Immature Granulocyte # (Auto) 0.0, Sodium Level 131L, Potassium Level 4.2, Chloride Level 100, Carbon Dioxide Level 21, Anion Gap 10, Blood Urea Nitrogen 11, Creatinine 0.74, Estimat Glomerular Filtration Rate 77, BUN/Creatinine Ratio 15, Glucose Level 109H, Calcium Level 8.5, Corrected Calcium 8.7, Magnesium Level 1.7, Total Bilirubin 0.8, Aspartate Amino Transf (AST/SGOT) 43H, Alanine Aminotransferase (ALT/SGPT) 31, Alkaline Phosphatase 84, Troponin I < 0.028, C- Reactive Protein High Sensitivity 0.15, B-Type Natriuretic Peptide 77799.2H, Total Protein 6.4, Albumin 3.7 03/14/23 16:58: Glucometer 124H 03/14/23 18:46: Urine Color YELLOW, Urine Clarity CLEAR, Urine pH 6.5, Urine Specific [place] 1.010L, Urine Protein NEGATIVE, Urine Glucose (UA) NEGATIVE, Urine Ketones 1+H, Urine Nitrite NEGATIVE, Urine Bilirubin NEGATIVE, Urine Urobilinogen 1.0, Urine Leukocyte Esterase NEGATIVE, Urine RBC (Auto) 2+H, Urine RBC 10-25H, Urine WBC 0-2, Urine Squamous Epithelial Cells 2-5, Urine Crystals PRESENTH, Urine Amorphous Sediment RARE MARIAH URATESH, Urine Bacteria TRACE, Urine Casts NONE, Urine Mucus SMALLH, Urine Culture Indicated NO 03/15/23 05:17: White Blood Count 6.1, Red Blood Count 4.21, Hemoglobin 12.3, Hematocrit 36, Mean Corpuscular Volume 86, Mean Corpuscular Hemoglobin 29, Mean Corpuscular Hemoglobin Concent 34, Red Cell Distribution Width 17.1H, Platelet Count 246, Mean Platelet Volume 9.9, Immature Granulocyte % (Auto) 0, Neutrophils (%) (Auto ) 81H, Lymphocytes (%) (Auto) 11L, Monocytes (%) (Auto) 7, Eosinophils (%) (Auto) 1, Basophils (%) (Auto) 1, Neutrophils # (Auto) 4.9, Lymphocytes # (Auto) 0.7L, Monocytes # (Auto) 0.4, Eosinophils # (Auto) 0.0, Basophils # (Auto) 0.0, Immature Granulocyte # (Auto) 0.0, Sodium Level 132L, Potassium Level 3.6, Chloride Level 101, Carbon Dioxide Level 19L, Anion Gap 12, Blood Urea Nitrogen 13, Creatinine 0.74, Estimat Glomerular Filtration Rate 77, BUN/Creatinine Ratio 18, Glucose Level 95, Calcium Level 8.3L, Corrected Calcium 8.8, Total Bilirubin 0.9, Aspartate Amino Transf (AST/SGOT) 29, Alanine Aminotransferase (ALT/SGPT) 24, Alkaline Phosphatase 72, Total Protein 5.9L, Albumin 3.4 03/16/23 05:25: White Blood Count 5.5, Red Blood Count 3.90, Hemoglobin 11.5, Hematocrit 34L, Mean Corpuscular Volume 86, Mean Corpuscular Hemoglobin 30, Mean Corpuscular Hemoglobin Concent 34, Red Cell Distribution Width 17.1H, Platelet Count 224, Mean Platelet Volume 9.5, Immature Granulocyte % (Auto) 0, Neutrophils (%) (Auto) 74, Lymphocytes (%) (Auto) 13, Monocytes (%) (Auto) 9, Eosinophils (%) (Auto) 3, Basophils (%) (Auto) 0, Neutrophils # (Auto) 4.1, Lymphocytes # (Auto) 0.7L, Monocytes # (Auto) 0.5, Eosinophils # (Auto) 0.2, Basophils # (Auto) 0.0, Immature Granulocyte # (Auto) 0.0, Sodium Level 130L, Potassium Level 3.5L, Chloride Level 97L, Carbon Dioxide Level 24, Anion Gap 9, Blood Urea Nitrogen 17, Creatinine 0.75, Estimat Glomerular Filtration Rate 76, BUN/Creatinine Ratio 23, Glucose Level 99, Calcium Level 8.2L, Corrected Calcium 8.8, Total Bilirubin 0.6, Aspartate Amino Transf (AST/SGOT) 24, Alanine Aminotransferase (ALT/SGPT) 19, Alkaline Phosphatase 66, Total Protein 5.5L, Albumin 3.2 Pending Labs Laboratory Tests 03/14/23 15:28: SARS-CoV-2 RNA (RT-PCR) Not Detected 03/14/23 16:55: White Blood Count 5.1, Red Blood Count 4.03, Hemoglobin 12.1, Hematocrit 36, Mean Corpuscular Volume 88, Mean Corpuscular Hemoglobin 30, Mean Corpuscular Hemoglobin Concent 34, Red Cell Distribution Width 17.3, Platelet Count 241, Me an Platelet Volume 9.8, Immature Granulocyte % (Auto) 0, Neutrophils (%) (Auto) 75, Lymphocytes (%) (Auto) 16, Monocytes (%) (Auto) 8, Eosinophils (%) (Auto) 1, Basophils (%) (Auto) 0, Neutrophils # (Auto) 3.8, Lymphocytes # (Auto) 0.8, Monocytes # (Auto) 0.4, Eosinophils # (Auto) 0.1, Basophils # (Auto) 0.0, Immature Granulocyte # (Auto) 0.0, Sodium Level 131, Potassium Level 4.2, Chloride Level 100, Carbon Dioxide Level 21, Anion Gap 10, Blood Urea Nitrogen 11, Creatinine 0.74, Estimat Glomerular Filtration Rate 77, BUN/Creatinine Ratio 15, Glucose Level 109, Calcium Level 8.5, Corrected Calcium 8.7, Magnesium Level 1.7, Total Bilirubin 0.8, Aspartate Amino Transf (AST/SGOT) 43, Alanine Aminotransferase (ALT/SGPT) 31, Alkaline Phosphatase 84, Troponin I < 0.028, C- Reactive Protein High Sensitivity 0.15, B-Type Natriuretic Peptide 89862.2, Total Protein 6.4, Albumin 3.7 03/14/23 16:58: Glucometer 124 03/14/23 18:46: Urine Color YELLOW, Urine Clarity CLEAR, Urine pH 6.5, Urine Specific [place] 1.010, Urine Protein NEGATIVE, Urine Glucose (UA) NEGATIVE, Urine Ketones 1+, Urine Nitrite NEGATIVE, Urine Bilirubin NEGATIVE, Urine Urobilinogen 1.0, Urine Leukocyte Esterase NEGATIVE, Urine RBC (Auto) 2+, Urine RBC 10-25, Urine WBC 0- 2, Urine Squamous Epithelial Cells 2-5, Urine Crystals PRESENT, Urine Amorphous Sediment RARE MARIAH URATES, Urine Bacteria TRACE, Urine Casts NONE, Urine Mucus SMALL, Urine Culture Indicated NO 03/15/23 05:17: White Blood Count 6.1, Red Blood Count 4.21, Hemoglobin 12.3, Hematocrit 36, Mean Corpuscular Volume 86, Mean Corpuscular Hemoglobin 29, Mean Corpuscular Hemoglobin Concent 34, Red Cell Distribution Width 17.1, Platelet Count 246, Mean Platelet Volume 9.9, Immature Granulocyte % (Auto) 0, Neutrophils (%) (Auto) 81, Lymphocytes (%) (Auto) 11, Monocytes (%) (Auto) 7, Eosinophils (%) (Auto) 1, Basophils (%) (Auto) 1, Neutrophils # (Auto) 4.9, Lymphocytes # (Auto) 0.7, Monocytes # (Auto) 0.4, Eosinophils # (Auto) 0.0, Basophils # (Auto) 0.0, Immature Granulocyte # (Auto) 0.0, Sodium Level 132, Potassium Level 3.6, Chloride Level 101, Carbon Dioxide Level 19, Anion Gap 12, Blood Urea Nitrogen 13, Creatinine 0.74, Estimat Glomerular Filtration Rate 77, BUN/Creatinine Ratio 18, Glucose Level 95, Calcium Level 8.3, Corrected Calcium 8.8, Total Bilirubin 0.9, Aspartate Amino Transf (AST/SGOT) 29, Alanine Aminotransferase (ALT/SGPT) 24, Alkaline Phosphatase 72, Total Protein 5.9, Albumin 3.4 03/16/23 05:25: White Blood Count 5.5, Red Blood Count 3.90, Hemoglobin 11.5, Hematocrit 34, Mean Corpuscular Volume 86, Mean Corpuscular Hemoglobin 30, Mean Corpuscular Hemoglobin Concent 34, Red Cell Distribution Width 17.1, Platelet Count 224, Mean Platelet Volume 9.5, Immature Granulocyte % (Auto) 0, Neutrophils (%) (Auto) 74, Lymphocytes (%) (Auto) 13, Monocytes (%) (Auto) 9, Eosinophils (%) (Auto) 3, Basophils (%) (Auto) 0, Neutrophils # (Auto) 4.1, Lymphocytes # (Auto) 0.7, Monocytes # (Auto) 0.5, Eosinophils # (Auto) 0.2, Basophils # (Auto) 0.0, Immature Granulocyte # (Auto) 0.0, Sodium Level 130, Potassium Level 3.5, Chloride Level 97, Carbon Dioxide Level 24, Anion Gap 9, Blood Urea Nitrogen 17, Creatinine 0.75, Estimat Glomerular Filtration Rate 76, BUN/Creatinine Ratio 23, Glucose Level 99, Calcium Level 8.2, Corrected Calcium 8.8, Total Bilirubin 0.6, Aspartate Amino Transf (AST/SGOT) 24, Alanine Aminotransferase (ALT/SGPT) 19, Alkaline Phosphatase 66, Total Protein 5.5, Albumin 3.2 Discharge Home Medications: Active Scripts Active Ondansetron Odt (Ondansetron) 4 Mg Tab.rapdis 4 Mg SL Q8H PRN Cephalexin 500 Mg Tablet 500 Mg PO TID Potassium Chloride 8 Meq Capsule.er 8 Meq PO DAILY Lasix (Furosemide) 20 Mg Tablet 20 Mg PO DAILY Metoprolol Succinate 25 Mg Tab.er.24h 25 Mg PO BID Losartan Potassium 100 Mg Tablet 100 Mg PO DAILY Reported Docusate Sodium 100 Mg Tablet 100 Mg PO DAILY Vitamin B-6 (Pyridoxine HCl) 50 Mg Tablet 50 Mg PO BID Ferrous Sulfate 325 Mg (65 Mg Iron) Tablet 325 Mg PO DAILY Magnesium Oxide 250 Mg Tablet 250 Mg PO DAILY PRN Esomeprazole Magnesium 40 Mg Capsule.dr 40 Mg PO DAILY Eliquis (Apixaban) 2.5 Mg Tablet 2.5 Mg PO BID Simvastatin 10 Mg Tablet 10 Mg PO HS Multiple Vitamins (Multivitamin) 1 Each Tablet 1 Each PO DAILY Acetaminophen ER (Acetaminophen) 650 Mg Tablet.er 650 Mg PO HS Calcium Citrate - Vit D3 Tab (Calcium Citrate/Vitamin D3) 1 Each Tablet 1 Tab PO DAILY Escitalopram Oxalate 5 Mg Tablet 5 Mg PO DAILY Instructions to patient/family Please see electronic discharge instructions given to patient. SHAHRZAD CHILDRESS DO Mar 16, 2023 11:34
[2023-03-16] MEDS ORDERED: CEPH500T PO (22:57)
[2023-03-16] MEDS ORDERED: ONDA4TAB11 SL (22:57)
[2023-03-21] MEDS ORDERED: SULF1TAB38 PO (07:10)
== END 2023-03-16 13:42 | disposition home or self-care (01) ==
LOC: EDUNIT# 16:44 → ER 16:45 → 4TH 21:47
PROVIDERS: ADMIT Internal Medicine; ATTEND Internal Medicine
DX: I11.0 Hypertensive heart disease with heart failure (principal); I50.31 Acute diastolic (congestive) heart failure; I35.0 Nonrheumatic aortic (valve) stenosis; I25.10 Atherosclerotic heart disease of native coronary artery without angina pectoris; I67.4 Hypertensive encephalopathy; I65.23 Occlusion and stenosis of bilateral carotid arteries; I49.5 Sick sinus syndrome; I48.0 Paroxysmal atrial fibrillation; J96.01 Acute respiratory failure with hypoxia; J90 Pleural effusion, not elsewhere classified; R54 Age-related physical debility; F32.A Depression, unspecified; Z95.2 Presence of prosthetic heart valve; Z79.899 Other long term (current) drug therapy
CPT/HCPCS: 71046; 80053 ×3; 81000; 82947; 83735; 83880; 84484; 85025 ×3; 86141; 87636; 93005; 94760; 94761; 96376 ×2; 97162; 97530; 97535; 99284; C8929; G0378; 36415; 93306

== ENCOUNTER 2023-03-16 20:38 | Emergency (ER) | payer MEDICARE, OTHER ==
[~2023-03-16] VITALS: Ht 160 cm; Wt 42.6 kg
[~2023-03-16 20:38] MED LIST changes: +DOCU100T2 PO; +DOXA2TAB2 PO; +FERR325T18 PO; +FURO-125 PO; +MAGN250T35 PO; +MTP100TCR PO; +POTA8CAP20 PO; +PYRI50TA PO; +SACU1TAB7 PO
[2023-03-16 21:04] VITALS: BP 175/83
--- NOTE | 2023-03-16 22:00 | ED Abdominal Pain ---
General Chief Complaint: Abdominal/GI Problems Stated Complaint: LOWER ABD PAIN Nursing Triage Note: C/O LOWER ABDOMINAL PAIN/NAUSEA X1HR. REPORTS BEING DC'D FROM HOSPITAL TODAY FOR CHF. HAD SOLIMAN CATHETER REMOVED & HAS DIFFICULTY STARTING URINARY STREAM FEELS LIKE INCOMPLETE EMPTYING OF BLADDER. Source of Information: Patient Exam Limitations: No Limitations History of Present Illness Date Seen by Provider: Mar 16, 2023 Time Seen by Provider: 21:59 Initial Comments Patient is an 87-year-old female who presents to the emergency department with a chief complaint of lower abdominal pain and nausea over the last couple of hours. Patient was discharged from the hospital around 2:00 this afternoon with a CHF exacerbation. She did have a Soliman catheter in place. She is chronically anticoagulated on Eliquis. Of note the patient did have some mild hematuria at admission 2 or 3 days ago. Patient states that she feels like she is not able to completely empty her bladder. She points to the suprapubic area as the source of her discomfort. Her last bowel movement was on Monday of this week. She normally has bowel movements every 2 or 3 days. She denies fevers or chills. No shortness of breath or chest pain. She has not taken anything for the abdominal discomfort. Timing/Duration: 1-3 Hours Severity/Quality: Moderate, Aching Location: Suprapubic Radiation: No Radiation Activities at Onset: None Associated Symptoms: Other (Urinary urgency) Allergies and Home Medications Allergies Coded Allergies: bacitracin (Verified Allergy, Mild, RASH, 10/15/19) lidocaine (Verified Allergy, Mild, RASH, 10/15/19) neomycin (Verified Allergy, Mild, RASH, 10/15/19) polymyxin B (Verified Allergy, Mild, RASH, 10/15/19) pramoxine (Verified Allergy, Mild, RASH, 10/15/19) Patient Home Medication List Home Medication List Reviewed: Yes Acetaminophen (Acetaminophen ER) 650 Mg Tablet.er, 650 MG PO HS, (Reported) Entered as Reported by: CRYSTAL NEVES on 04/24/17 0925 Apixaban (Eliquis) 2.5 Mg Tablet, 2.5 MG PO BID, (Reported) Entered as Reported by: AMPARO COCHRAN on 01/04/22 0855 Calcium Citrate/Vitamin D3 (Calcium Citrate - Vit D3 Tab) 1 Each Tablet, 1 TAB PO DAILY, (Reported) Entered as Reported by: CRYSTAL NEVES on 04/24/17 0903 Cephalexin (Cephalexin) 500 Mg Tablet, 500 MG PO TID Prescribed by: KARL VILLA on 03/16/232256 Docusate Sodium (Docusate Sodium) 100 Mg Tablet, 100 MG PO DAILY, (Reported) Entered as Reported by: KATIE QUEVEDO on 03/15/23 1401 Escitalopram Oxalate (Escitalopram Oxalate) 5 Mg Tablet, 5 MG PO DAILY, (Reported) Entered as Reported by: MARE MCDERMOTT on 11/07/16 0907 Esomeprazole Magnesium (Esomeprazole Magnesium) 40 Mg Capsule.dr, 40 MG PO DAILY, (Reported) Entered as Reported by: KATIE QUEVEDO on 03/15/23 135 Ferrous Sulfate (Ferrous Sulfate) 325 Mg (65 Mg Iron) Tablet, 325 MG PO DAILY, (Reported) Entered as Reported by: KATIE QUEVEDO on 03/15/23 135 Furosemide (Lasix) 20 Mg Tablet, 20 MG PO DAILY Prescribed by: SHAHRZAD CHILDRESS on 03/16/23 113 Losartan Potassium (Losartan Potassium) 100 Mg Tablet, 100 MG PO DAILY Prescribed by: SHAHRZAD CHILDRESS on 03/16/23 113 Magnesium Oxide (Magnesium Oxide) 250 Mg Tablet, 250 MG PO DAILY PRN for LEG CRAMPS, (Reported) Entered as Reported by: KATIE QUEVEDO on 03/15/23 135 Metoprolol Succinate (Metoprolol Succinate) 25 Mg Tab.er.24h, 25 MG PO BID Prescribed by: SHAHRZAD CHILDRESS on 03/16/23 113 Multivitamin (Multiple Vitamins) 1 Each Tablet, 1 EACH PO DAILY, (Reported) Entered as Reported by: ALBERTO BROWN on 10/15/19 0812 Ondansetron (Ondansetron Odt) 4 Mg Tab.rapdis, 4 MG SL Q8H PRN for NAUSEA/VOMITING Prescribed by: KARL VILLA on 03/16/232256 Potassium Chloride (Potassium Chloride) 8 Meq Capsule.er, 8 MEQ PO DAILY Prescribed by: SHAHRZAD CHILDRESS on 03/16/23 113 Pyridoxine HCl (Vitamin B-6) 50 Mg Tablet, 50 MG PO BID, (Reported) Entered as Reported by: KATIE QUEVEDO on 03/15/23 1358 Simvastatin (Simvastatin) 10 Mg Tablet, 10 MG PO HS, (Reported) Entered as Reported by: AMPARO COCHRAN on 01/04/22 0855 Discontinued Medications Acetaminophen (Acetaminophen ER) 650 Mg Tablet.er, 650 MG PO DAILY PRN for PAIN- MILD, (Reported) Discontinued Reason: No Longer Taking Entered as Reported by: CRYSTAL NEVES on 04/24/17 0930 Clonidine HCl (Clonidine HCl) 0.1 Mg Tablet, 0.1 MG PO BID PRN for BLOOD PRESSURE Discontinued Reason: No Longer Taking Prescribed by: BHARGAV WAHL on 06/04/22 1157 Doxazosin Mesylate (Doxazosin Mesylate) 4 Mg Tablet, 2 MG PO HS, (Reported) Discontinued Reason: No Longer Taking Entered as Reported by: KATIE QUEVEDO on 02/15/22 1024 Doxazosin Mesylate (Doxazosin Mesylate) 2 Mg Tablet, 2 MG PO BID, (Reported) Entered as Reported by: KATIE QUEVEDO on 03/15/23 1358 Famotidine (Famotidine) 40 Mg Tablet, 40 MG PO HS, (Reported) Discontinued Reason: No Longer Taking Entered as Reported by: CANDICE JIN on 10/06/15 1243 Losartan Potassium (Losartan Potassium) 100 Mg Tablet, 100 MG PO DAILY, (Reported) Discontinued Reason: No Longer Taking Entered as Reported by: KATIE QUEVEDO on 04/13/22 1425 Melatonin (Melatonin) 10 Mg Tablet, 10 MG PO HS PRN for SLEEP, (Reported) Discontinued Reason: No Longer Taking Entered as Reported by: KATIE QUEVEDO on 02/15/22 1024 Metoprolol Succinate (Metoprolol Succinate) 25 Mg Tab.er.24h, 25 MG PO BID Discontinued Reason: No Longer Taking Prescribed by: ZEV BRADSHAW on 04/16/22 0925 Metoprolol Succinate (Metoprolol Succinate) 100 Mg Tab.er.24h, 50 MG PO BID, (Reported) Entered as Reported by: KATIE QUEVEDO on 03/15/23 1358 Sacubitril/Valsartan (Entresto 49 mg-51 mg Tablet) 49 Mg-51 Mg Tablet, 1 EA PO BID, (Reported) Entered as Reported by: KATIE QUEVEDO on 03/15/23 1358 Vit A/Vit C/Vit E/Zinc/Copper (Preservision Areds Tablet) 1 Each Tablet, 1 EACH PO DAILY, (Reported) Discontinued Reason: No Longer Taking Entered as Reported by: ALBERTO BROWN on 10/15/19 0812 Review of Systems Review of Systems Constitutional: see HPI Respiratory: No Symptoms Reported Cardiovascular: No Symptoms Reported Gastrointestinal: Abdominal Pain Genitourinary: Urgency Musculoskeletal: no symptoms reported Skin: no symptoms reported Psychiatric/Neurological: No Symptoms Reported Past Ooejnuq-Eruyse-Uqdhtv Hx Patient Social History Tobacco Use?: No Substance use?: No Alcohol Use?: No Pt feels they are or have been: No Immunizations Up To Date Tetanus Booster (TDap): Unknown First/Initial COVID19 Vaccinat: 2020 Second COVID19 Vaccination Conor: 2020 Third COVID19 Vaccination Date: 2020 Seasonal Allergies Seasonal Allergies: No Past Medical History Surgery/Hospitalization HX: pacemaker, heart valve replacement, HTN, HLD, DEPRESSION, CHF, GERD, AFIB, MACULAR DEGENERATION, TUBAL, BOWEL RESECTION, BREAST BX. Surgeries: Yes (RSO, BREAST BX, CATARACTS, BOWEL RESCTION, FX HIP) Orthopedic, Pacemaker, Valve Replacement Respiratory: No (ASTHMA CHILD) Currently Using CPAP: No Currently Using BIPAP: No Cardiac: Yes (Congestive heart failure) Atrial Fibrillation, High Cholesterol, Hypertension Neurological: No 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: No Female 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: Denies [employer]AL History: Tubal 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 DOWN SYNDROME) Hypertension 19 MOTHER G8 SISTER Kidney disease sister Myocardial infarction 19 FATHER Neoplasm 19 MOTHER (BREAST CANCER) Visual disorder 19 MOTHER (MACULAR DEGENERATION) Heart Disease, Cancer, Hypertension History per records this patient has altered mental status Physical Exam Vital Signs Vital Signs - First Documented 03/16/23 21:04 Temp 36.3 Pulse 63 Resp 16 B/P (MAP) 175/83 (113) Pulse Ox 97 O2 Delivery Room Air Capillary Refill : Less Than 3 Seconds Height/Weight/BMI Height: 5'3.00" Weight: 82lbs. 6.4oz. [id number]; 16.00 BMI Method:Stated General Appearance: WD/WN, no apparent distress HEENT: PERRL/EOMI Respiratory: lungs clear, normal breath sounds, no respiratory distress, no accessory muscle use Cardiovascular: regular rate, rhythm Gastrointestinal: normal bowel sounds, non tender, soft Extremities: normal range of motion, normal inspection, no pedal edema Neurologic/Psychiatric: alert, normal mood/affect, oriented x 3 Skin: normal color, warm/dry Progress/Results/Core Measures Results/Orders Lab Results Laboratory Tests Test 03/16/23 22:04 Range/Units Urine Color YELLOW Urine Clarity SL CLOUDY Urine pH 6.0 5-9 Urine Specific [place] 1.020 1.016-1.022 Urine Protein NEGATIVE NEGATIVE Urine Glucose (UA) NEGATIVE NEGATIVE Urine Ketones NEGATIVE NEGATIVE Urine Nitrite POSITIVE H NEGATIVE Urine Bilirubin NEGATIVE NEGATIVE Urine Urobilinogen 0.2 < = 1.0 MG/DL Urine Leukocyte Esterase 1+ H NEGATIVE Urine RBC (Auto) 2+ H NEGATIVE Urine RBC 5-10 H /HPF Urine WBC 5-10 H /HPF Urine Squamous Epithelial Cells 2-5 /HPF Urine Crystals PRESENT H /LPF Urine Amorphous Sediment RARE MARIAH URATES H /LPF Urine Bacteria LARGE H /HPF Urine Casts NONE /LPF Urine Mucus SMALL H /LPF Urine Culture Indicated YES My Orders Orders - KARL VILLA MD Bladder Scan (03/16/23 22:00) Ua Culture If Indicated (03/16/23 22:15) Ondansetron Oral Dissolve Tab (Zofran (03/16/23 22:15) Urine Culture (03/16/23 22:04) Cephalexin Capsule (Keflex Capsule) (03/16/23 22:55) Acetaminophen Tablet (Tylenol Tablet) (03/16/23 23:00) Vital Signs/I&O 03/16/23 21:04 Temp 36.3 Pulse 63 Resp 16 B/P (MAP) 175/83 (113) Pulse Ox 97 O2 Delivery Room Air Blood Pressure Mean: 113 Progress Progress Note #1: Time: 22:24 Progress Note bladder scan post void 99ml Progress Note #2: Time: 22:59 Progress Note Patient seen and evaluated by me. Evaluation today includes physical exam, urinalysis, bladder scan. Pertinent physical exam findings well-developed well- nourished elderly female in no acute distress. Stable vital signs. Heart is regular, lungs are clear. Abdomen with minimal tenderness in the suprapubic region. No involuntary guarding or rebound tenderness. Hypoactive bowel sounds. She has no significant lower extremity edema. No concern for recurrence of CHF exacerbation. Differential diagnosis based on history and physical exam, urinary tract infection, constipation Labs independently reviewed and interpreted by me. Urinalysis is nitrite positive with red blood cells, white blood cells and leukocyte Estrace. Moderate bacteria. Her bladder scan postvoid showed 99 mL. She was treated in the emergency department with 4 mg of Zofran. She had improvement in her nausea. I have also given her a dose of cephalexin 500 mg p.o. as well as a gram of Tylenol. Patient is comfortable with the plan of care as are her family members, son and who are at the bedside. Vital signs remained stable, no deterioration in her condition during her stay in the emergency department. We will put her on Keflex 500 3 times daily for 5 days. Patient's primary care physician is Dr. BRADSHAW. Recommended follow-up with her next week. Return precautions provided in both verbal and written format. All questions are sought and answered. Patient is stable for discharge. Departure Impression Primary Impression: Urinary tract infection Qualified Codes: N30.01 - Acute cystitis with hematuria Disposition: HOME, SELF-CARE Condition: Improved Departure-Patient Inst. Decision time for Depature: 22:56 Referrals: ZEV BRADSHAW MD (PCP/Family) Primary Care Physician Patient Instructions: Urinary tract infections in adults Add. Discharge Instructions: Drink fluids to stay well-hydrated. You should also drink cranberry juice this will help flush bacteria from your bladder. Take the antibiotics 1 tablet 3 times a day for [address] Bradshaw's office in the morning for a follow-up appointment next week. I have also prescribed ondansetron 4 mg tablets. These are dissolving tablets that will help with nausea. Take 1 every 8 hours as needed. If you develop worsening pain, nausea and vomiting or develop a fever over 101 please return to the emergency department for reevaluation. Scripts Ondansetron (Ondansetron Odt) 4 Mg Tab.rapdis 4 MG SL Q8H PRN for NAUSEA/VOMITING, #10 TAB Prov: KARL VILLA MD 03/16/23 Cephalexin (Cephalexin) 500 Mg Tablet 500 MG PO TID, #15 TAB 0 Refills Prov: KARL VILLA MD 03/16/23 Copy Copies To 1: ZEV BRADSHAW MD, KATHRYN M MD Mar 16, 2023 21:59
[2023-03-16] MEDS ORDERED: ONDANSETRON 4 MG (ZOFRAN) ORAL DISSOLVE TAB PO STA (22:15)
[2023-03-16 22:21] LABS: BILIRUBIN,URINE NEGATIVE (NEGATIVE); CLARITY,URINE SL CLOUDY; COLOR,URINE YELLOW; GLUCOSE, URINE (UA) NEGATIVE (NEGATIVE); KETONES,URINE NEGATIVE (NEGATIVE); LEUKOCYTE ESTERASE ,URINE 1+ (NEGATIVE); NITRITE,URINE POSITIVE (NEGATIVE); PROTEIN,URINE NEGATIVE (NEGATIVE)
[2023-03-16 22:33] LABS: AMORPHOUS SEDIMENT,UR RARE AMOR URATES /LPF; BACTERIA,URINE LARGE /HPF
[2023-03-16] MEDS ORDERED: CEPHALEXIN 250 MG (KEFLEX) CAP PO STA (22:55)
[2023-03-16] MEDS ORDERED: CEPH500T PO (22:57)
[2023-03-16] MEDS ORDERED: ONDA4TAB11 SL (22:57)
[2023-03-16] MEDS ORDERED: ACETAMINOPHEN 500 MG TAB (TYLENOL) PO ONE (23:00)
[2023-03-21] MEDS ORDERED: SULF1TAB38 PO (07:10)
== END 2023-03-16 23:05 | disposition home or self-care (01) ==
LOC: EDUNIT# 20:38 → ER 20:40
DX: N39.0 Urinary tract infection, site not specified (principal); Z79.01 Long term (current) use of anticoagulants; Z88.1 Allergy status to other antibiotic agents; Z96.0 Presence of urogenital implants
CPT/HCPCS: 81000; 87077; 87088; 87186; 99283

== ENCOUNTER 2023-03-29 14:22 | Emergency (ER) | payer MEDICARE, OTHER ==
[~2023-03-29] VITALS: Ht 160 cm; Wt 42.0 kg
[~2023-03-29 14:22] MED LIST changes: +CEPH500T PO; +ONDA4TAB11 SL; +SULF1TAB38 PO
--- NOTE | 2023-03-29 14:33 | ED Abdominal Pain ---
General Chief Complaint: Abdominal/GI Problems Stated Complaint: ABD PAIN Nursing Triage Note: pt presents to ed via ems from home with complaints of lower abdominal pain starting this am. pt reports hx of constipation with last bm being monday. pt reports taking miralax at 1 pm today. Source of Information: Patient Exam Limitations: No Limitations History of Present Illness Date Seen by Provider: Mar 29, 2023 Time Seen by Provider: 14:22 Initial Comments 87-year-old female presents emergency department today for abdominal pain. She arrives via EMS stating she started to have abdominal pain this morning. She also has nausea. Pain is described as diffuse in her lower abdomen bilaterally but worse on the right side. She feels she may be constipated and has not had a bowel movement since Monday. She denies any fevers or chills. No vomiting. She has had a bowel resection secondary to "blockage." She is also had an appendectomy and a total abdominal hysterectomy. She denies any urinary symptoms. All other systems reviewed and negative except documented per HPI. Voice recognition software was used to help create this chart Allergies and Home Medications Allergies Coded Allergies: bacitracin (Verified Allergy, Mild, RASH, 10/15/19) lidocaine (Verified Allergy, Mild, RASH, 10/15/19) neomycin (Verified Allergy, Mild, RASH, 10/15/19) polymyxin B (Verified Allergy, Mild, RASH, 10/15/19) pramoxine (Verified Allergy, Mild, RASH, 10/15/19) Patient Home Medication List Home Medication List Reviewed: Yes Acetaminophen (Acetaminophen ER) 650 Mg Tablet.er, 650 MG PO HS, (Reported) Entered as Reported by: CRYSTAL NEVES on 04/24/17 0925 Apixaban (Eliquis) 2.5 Mg Tablet, 2.5 MG PO BID, (Reported) Entered as Reported by: AMPARO COCHRAN on 01/04/22 0855 Calcium Citrate/Vitamin D3 (Calcium Citrate - Vit D3 Tab) 1 Each Tablet, 1 TAB PO DAILY, (Reported) Entered as Reported by: CRYSTAL NEVES on 04/24/17 0903 Cephalexin (Cephalexin) 500 Mg Tablet, 500 MG PO TID Prescribed by: KARL VILLA on 03/16/23 2257 Docusate Sodium (Docusate Sodium) 100 Mg Tablet, 100 MG PO DAILY, (Reported) Entered as Reported by: KATIE QUEVEDO on 03/15/23 1401 Escitalopram Oxalate (Escitalopram Oxalate) 5 Mg Tablet, 5 MG PO DAILY, (Reported) Entered as Reported by: MARE MCDERMOTT on 11/07/16 0907 Esomeprazole Magnesium (Esomeprazole Magnesium) 40 Mg Capsule.dr, 40 MG PO DAILY, (Reported) Entered as Reported by: KATIE QUEVEDO on 03/15/23 1358 Ferrous Sulfate (Ferrous Sulfate) 325 Mg (65 Mg Iron) Tablet, 325 MG PO DAILY, (Reported) Entered as Reported by: KATIE QUEVEDO on 03/15/23 1358 Furosemide (Lasix) 20 Mg Tablet, 20 MG PO DAILY Prescribed by: SHAHRZAD CHILDRESS on 03/16/23 1133 Losartan Potassium (Losartan Potassium) 100 Mg Tablet, 100 MG PO DAILY Prescribed by: SHAHRZAD CHILDRESS on 03/16/23 1133 Magnesium Oxide (Magnesium Oxide) 250 Mg Tablet, 250 MG PO DAILY PRN for LEG CRAMPS, (Reported) Entered as Reported by: KATIE QUEVEDO on 03/15/23 1358 Metoprolol Succinate (Metoprolol Succinate) 25 Mg Tab.er.24h, 25 MG PO BID Prescribed by: SHAHRZAD CHILDRESS on 03/16/23 1133 Multivitamin (Multiple Vitamins) 1 Each Tablet, 1 EACH PO DAILY, (Reported) Entered as Reported by: ALBERTO BROWN on 10/15/19 0812 Ondansetron (Ondansetron Odt) 4 Mg Tab.rapdis, 4 MG SL Q8H PRN for NAUSEA/VOMITING Prescribed by: KARL VILLA on 03/16/23 2257 Potassium Chloride (Potassium Chloride) 8 Meq Capsule.er, 8 MEQ PO DAILY Prescribed by: SHAHRZAD CHILDRESS on 03/16/23 1133 Pyridoxine HCl (Vitamin B-6) 50 Mg Tablet, 50 MG PO BID, (Reported) Entered as Reported by: KATIE QUEVEDO on 03/15/23 1358 Simvastatin (Simvastatin) 10 Mg Tablet, 10 MG PO HS, (Reported) Entered as Reported by: AMPARO COCHRAN on 01/04/22 0855 Sulfamethoxazole/Trimethoprim (Bactrim Ds Tablet) 1 Each Tablet, 1 EACH PO BID Prescribed by: HARMONY RICE on 03/21/23 0710 Review of Systems Review of Systems Constitutional: see HPI Past Pqmovix-Aqxryz-Mrjgwz Hx Patient Social History Tobacco Use?: No Substance use?: No Alcohol Use?: No Pt feels they are or have been: No Immunizations Up To Date Tetanus Booster (TDap): Unknown First/Initial COVID19 Vaccinat: 2020 Second COVID19 Vaccination Conor: 2020 Third COVID19 Vaccination Date: 2020 Seasonal Allergies Seasonal Allergies: No Past Medical History Surgery/Hospitalization HX: pacemaker, heart valve replacement, HTN, HLD, DEPRESSION, CHF, GERD, AFIB, MACULAR DEGENERATION, TUBAL, BOWEL RESECTION, BREAST BX. 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 DOWN SYNDROME) Hypertension 19 MOTHER G8 SISTER Kidney disease sister Myocardial infarction 19 FATHER Neoplasm 19 MOTHER (BREAST CANCER) Visual disorder 19 MOTHER (MACULAR DEGENERATION) Heart Disease, Cancer, Hypertension History per records this patient has altered mental status Physical Exam Vital Signs Vital Signs - First Documented 03/29/23 14:25 Temp 36.4 Pulse 59 Resp 18 B/P (MAP) 126/88 (101) Pulse Ox 96 Capillary Refill : Less Than 3 Seconds Height/Weight/BMI Height: 5'3.00" Weight: 82lbs. 6.4oz. [id number]; 16.00 BMI Method:Stated General Appearance: WD/WN, no apparent distress HEENT: normal ENT inspection, pharynx normal Neck: non-tender, supple Respiratory: chest non-tender, lungs clear, normal breath sounds, no respiratory distress, no accessory muscle use Cardiovascular: regular rate, rhythm, no murmur Gastrointestinal: normal bowel sounds, soft, no organomegaly, tenderness (Bi lateral lower abdomen, worse in the right lower abdomen.) Extremities: non-tender, normal inspection, no calf tenderness, normal capillary refill Back: normal inspection, no CVA tenderness, no vertebral tenderness Neurologic/Psychiatric: alert, normal mood/affect, oriented x 3 Skin: normal color, warm/dry Progress/Results/Core Measures Results/Orders Lab Results Laboratory Tests Test 03/29/23 14:28 03/29/23 16:06 Range/Units White Blood Count 5.1 4.3-11.0 10^3/uL Red Blood Count 4.07 3.80-5.11 10^6/uL Hemoglobin 12.3 11.5-16.0 g/dL Hematocrit 36 35-52 % Mean Corpuscular Volume 88 80-99 fL Mean Corpuscular Hemoglobin 30 25-34 pg Mean Corpuscular Hemoglobin Concent 34 32-36 g/dL Red Cell Distribution Width 16.5 H 10.0-14.5 % Platelet Count 275 130-400 10^3/uL Mean Platelet Volume 8.8 L 9.0-12.2 fL Immature Granulocyte % (Auto) 0 % Neutrophils (%) (Auto) 81 H 42-75 % Lymphocytes (%) (Auto) 12 12-44 % Monocytes (%) (Auto) 6 0-12 % Eosinophils (%) (Auto) 1 0-10 % Basophils (%) (Auto) 0 0-10 % Neutrophils # (Auto) 4.1 1.8-7.8 10^3/uL Lymphocytes # (Auto) 0.6 L 1.0-4.0 10^3/uL Monocytes # (Auto) 0.3 0.0-1.0 10^3/uL Eosinophils # (Auto) 0.0 0.0-0.3 10^3/uL Basophils # (Auto) 0.0 0.0-0.1 10^3/uL Immature Granulocyte # (Auto) 0.0 0.0-0.1 10^3/uL Sodium Level 129 L 135-145 MMOL/L Potassium Level 4.4 3.6-5.0 MMOL/L Chloride Level 96 L 98-107 MMOL/L Carbon Dioxide Level 24 21-32 MMOL/L Anion Gap 9 5-14 MMOL/L Blood Urea Nitrogen 17 7-18 MG/DL Creatinine 1.04 0.60-1.30 MG/DL Estimat Glomerular Filtration Rate 51 BUN/Creatinine Ratio 16 Glucose Level 131 H 70-105 MG/DL Calcium Level 9.0 8.5-10.1 MG/DL Corrected Calcium 9.0 8.5-10.1 MG/DL Total Bilirubin 0.5 0.1-1.0 MG/DL Aspartate Amino Transf (AST/SGOT) 25 5-34 U/L Alanine Aminotransferase (ALT/SGPT) 15 0-55 U/L Alkaline Phosphatase 70 40-136 U/L Total Protein 6.8 6.4-8.2 GM/DL Albumin 4.0 3.2-4.5 GM/DL Lipase 41 8-78 U/L Urine Color YELLOW Urine Clarity CLEAR Urine pH 7.0 5-9 Urine Specific [place] 1.010 L 1.016-1.022 Urine Protein NEGATIVE NEGATIVE Urine Glucose (UA) NEGATIVE NEGATIVE Urine Ketones NEGATIVE NEGATIVE Urine Nitrite NEGATIVE NEGATIVE Urine Bilirubin NEGATIVE NEGATIVE Urine Urobilinogen 0.2 < = 1.0 MG/DL Urine Leukocyte Esterase NEGATIVE NEGATIVE Urine RBC (Auto) TRACE-I H NEGATIVE Urine RBC RARE /HPF Urine WBC NONE /HPF Urine Squamous Epithelial Cells 0-2 /HPF Urine Crystals NONE /LPF Urine Bacteria NEGATIVE /HPF Urine Casts NONE /LPF Urine Mucus NEGATIVE /LPF Urine Culture Indicated NO My Orders Orders - PREETI VINSON DO Lipase (03/29/23 14:30) Ua Culture If Indicated (03/29/23 14:30) Cbc With Automated Diff (03/29/23 14:30) Comprehensive Metabolic Panel (03/29/23 14:30) Ct Abdomen/Pelvis W (03/29/23 14:30) Iohexol Injection (Omnipaque 350 Mg/Ml 1 (03/29/23 15:00) Received Contrast (Hold Metformin- Contr (03/29/23 15:00) Ns (Ivpb) (Sodium Chloride 0.9% Ivpb Bag (03/29/23 15:00) Medications Given in ED Vital Signs/I&O 03/29/23 03/29/23 14:25 16:35 Temp 36.4 Pulse 59 54 Resp 18 14 B/P (MAP) 126/88 (101) 119/73 Pulse Ox 96 97 Blood Pressure Mean: 101 Departure Communication (Admissions) Initially patient described her symptoms as moderate to severe just prior to arrival. They did last somewhat as she got to the hospital and she is having only mild right-sided pain at the time of my evaluation. Abdominal exam is nonsurgical in nature. I have reviewed all labs and these are unremarkable outside of some mild hyponatremia which she looks like she has had in the past. No indication for further emergent work-up but did recommend she follow-up with her primary doctor. CT scan shows likely constipation, no other acute findings and certainly no emergent medical conditions and no surgical conditions. She is completely symptom-free. Your urine shows no evidence for infection. She is discharged home with recommendation to use a glycerin suppository, continue MiraLAX. She states understanding she is comfortable agreeable discharge at this time. Questions were sought and answered. Impression Primary Impression: Lower abdominal pain Disposition: HOME, SELF-CARE Condition: Stable Departure-Patient Inst. Referrals: ZEV FARRAR MD (PCP/Family) Primary Care Physician Patient Instructions: Abdominal Pain, Adult ED Add. Discharge Instructions: You do seem to be somewhat constipated but there is no evidence for an obstruction. Recommend you use a glycerin suppository at home. Increase your fluids and rest. Continue to use MiraLAX. Follow-up with your primary doctor for any nonemergent needs. Return to the emergency department for any severe concerns. All discharge instructions reviewed with patient and/or family. Voiced understanding. PREETI VINSON DO Mar 29, 2023 14:33
[2023-03-29 14:36] LABS: BASOPHILS % (AUTO) 0 % (0-10); EOSINOPHILS % (AUTO) 1 % (0-10); HEMATOCRIT 36 % (35-52); HEMOGLOBIN 12.3 g/dL (11.5-16.0); LYMPHOCYTES # (AUTO) 0.6 10^3/uL (1.0-4.0); LYMPHOCYTES % (AUTO) 12 % (12-44); MEAN CORPUSCULAR HEMOGLOBIN 30 pg (25-34); MEAN CORPUSCULAR HGB CONC 34 g/dL (32-36); MEAN CORPUSCULAR VOLUME 88 fL (80-99); MEAN PLATELET VOLUME 8.8 fL (9.0-12.2); MONOCYTES # (AUTO) 0.3 10^3/uL (0.0-1.0); MONOCYTES % (AUTO) 6 % (0-12); NEUTROPHILS # (AUTO) 4.1 10^3/uL (1.8-7.8); NEUTROPHILS % (AUTO) 81 % (42-75); PLATELET COUNT 275 10^3/uL (130-400); WHITE BLOOD COUNT 5.1 10^3/uL (4.3-11.0)
[2023-03-29 14:42] LABS: POTASSIUM 4.4 MMOL/L (3.6-5.0)
[2023-03-29 14:44] LABS: TOTAL PROTEIN 6.8 GM/DL (6.4-8.2)
[2023-03-29 14:46] LABS: BILIRUBIN,TOTAL 0.5 MG/DL (0.1-1.0)
[2023-03-29 14:48] LABS: CREATININE SERUM 1.04 MG/DL (0.60-1.30)
[2023-03-29] MEDS ORDERED: IOHEXOL 350 MG/ML 100 ML (OMNIPAQUE 350) VIAL IV ONE (15:00)
[2023-03-29] MEDS ORDERED: NS 100 ML (IVPB) BAG IV ONE (15:00)
[2023-03-29] MEDS ORDERED: HOLD METFORMIN - RECEIVED CONTRAST 20 ML VIAL IV SCH (15:00)
--- NOTE | 2023-03-29 15:11 | Diagnostic Imaging Report ---
PROCEDURE: CT abdomen and pelvis with contrast. TECHNIQUE: Multiple contiguous axial images were obtained through the abdomen and pelvis after administration of intravenous contrast. Auto Exposure Controls were utilized during the CT exam to meet ALARA standards for radiation dose reduction. All CT scans use one or more of the following dose optimizing techniques: automated exposure control, MA and/or KvP adjustment based on patient size and exam type or iterative reconstruction. INDICATION: Lower abdominal pain. COMPARISON: None FINDINGS: Included portions of the lung bases show partially visualized moderate left and mild right pleural effusion. There is also cardiomegaly. CT ABDOMEN: Large amount of air and stool seen scattered throughout the colon. There is also large stool ball within the rectum. Stool ball measures 6.1 x 7.4 cm. Small bowel loops are nondilated. Normal appendix cannot be adequately identified, but by provided history is surgically absent. The kidneys, adrenal glands, spleen, pancreas, and liver have a normal CT appearance. There is no loculated fluid collection, free fluid or free air. No abnormal mesenteric or retroperitoneal adenopathy is seen. There is advanced diffuse calcified aortic arch atherosclerosis. Osseous structures show no acute abnormalities. CT PELVIS: Urinary bladder is unopacified and minimally distended. No calculi are seen within urinary bladder. There is no loculated fluid collection, free fluid or free air. No abnormal lymph nodes are seen. Osseous structures show no acute abnormalities. IMPRESSION: 1. Moderate colonic and rectal stool. Please correlate for constipation/impaction. 2. Bilateral pleural effusions, left greater than right. Dictated by: Dictated on workstation # [id number]
[2023-03-29 16:11] LABS: BILIRUBIN,URINE NEGATIVE (NEGATIVE); CLARITY,URINE CLEAR; COLOR,URINE YELLOW; GLUCOSE, URINE (UA) NEGATIVE (NEGATIVE); KETONES,URINE NEGATIVE (NEGATIVE); LEUKOCYTE ESTERASE ,URINE NEGATIVE (NEGATIVE); NITRITE,URINE NEGATIVE (NEGATIVE); PROTEIN,URINE NEGATIVE (NEGATIVE)
[2023-03-29 16:20] LABS: BACTERIA,URINE NEGATIVE /HPF; RBC,URINE RARE /HPF; SQUAMOUS EPITHELIAL CELL,UR 0-2 /HPF
[2023-03-29 16:35] VITALS: BP 119/73
== END 2023-03-29 16:35 | disposition home or self-care (01) ==
LOC: EDUNIT# 14:22 → ER 14:23
DX: R10.31 Right lower quadrant pain (principal); R10.32 Left lower quadrant pain; Z90.49 Acquired absence of other specified parts of digestive tract
CPT/HCPCS: 36415; 74177; 80053; 81000; 83690; 85025

== ENCOUNTER 2023-03-30 12:03 | Observation (INO) | payer MEDICARE, OTHER ==
[~2023-03-30] VITALS: Ht 160.2 cm; Wt 42.0 kg
[2023-03-30] VITALS (7 sets, daily range): BP systolic 121–162; BP diastolic 63–86
[2023-03-30] MEDS ORDERED: FLEET ENEMA ADULT 1 EA BTL PR ONE (12:45)
[2023-03-30] MEDS ORDERED: BISACODYL 10 MG SUPP (DULCOLAX) PR PRN (15:15)
[2023-03-30] MEDS ORDERED: diphenhydrAMINE 50 MG/ML INJ (BENADRYL) IVP PRN (15:15)
[2023-03-30] MEDS ORDERED: ENOXAPARIN 40 MG/0.4 ML (LOVENOX) SYR SC SCH (15:15)
[2023-03-30] MEDS ORDERED: CALCIUM CARBONATE 500 MG (TUMS) TAB.CHEW PO PRN (15:15)
[2023-03-30] MEDS ORDERED: diphenhydrAMINE 25 MG TAB (BENADRYL) PO PRN (15:15)
[2023-03-30] MEDS ORDERED: ONDANSETRON 4 MG (ZOFRAN) ORAL DISSOLVE TAB PO PRN (15:15)
[2023-03-30] MEDS ORDERED: ONDANSETRON 4 MG/2 ML (SDV) Z0FRAN IV PRN (15:15)
[2023-03-30] MEDS ORDERED: ANTACID SUSP 30 ML UDC (MYLANTA) PO PRN (15:15)
[2023-03-30] MEDS ORDERED: MELATONIN 3 MG TABLET PO PRN (15:15)
[2023-03-30] MEDS ORDERED: MILK OF MAGNESIA 400 MG/5 ML 30 ML UDC PO PRN (15:15)
[2023-03-30] MEDS ORDERED: ACETAMINOPHEN 325 MG TABLET PO PRN (15:15)
[2023-03-30] MEDS ORDERED: ENOXAPARIN INJECTION 30 MG/0.3 ML SYR SC SCH (15:30)
[2023-03-30 15:53] LABS: BASOPHILS % (AUTO) 1 % (0-10); EOSINOPHILS % (AUTO) 1 % (0-10); HEMATOCRIT 38 % (35-52); LYMPHOCYTES # (AUTO) 0.5 X 10^3 (1.0-4.0); LYMPHOCYTES % (AUTO) 8 % (12-44); MEAN CORPUSCULAR HEMOGLOBIN 30 pg (25-34); MEAN CORPUSCULAR HGB CONC 34 g/dL (32-36); MEAN CORPUSCULAR VOLUME 87 fL (80-99); MEAN PLATELET VOLUME 9.3 fL (9.0-12.2); MONOCYTES # (AUTO) 0.4 X 10^3 (0.0-1.0); MONOCYTES % (AUTO) 6 % (0-12); NEUTROPHILS # (AUTO) 5.2 X 10^3 (1.8-7.8); NEUTROPHILS % (AUTO) 85 % (42-75); PLATELET COUNT 289 10^3/uL (130-400); WHITE BLOOD COUNT 6.1 10^3/uL (4.3-11.0)
[2023-03-30 16:01] LABS: ALBUMIN 3.9 GM/DL (3.2-4.5)
[2023-03-30 16:02] LABS: POTASSIUM 4.5 MMOL/L (3.6-5.0)
[2023-03-30 16:03] LABS: CALCIUM 8.9 MG/DL (8.5-10.1)
[2023-03-30 16:04] LABS: TOTAL PROTEIN 6.8 GM/DL (6.4-8.2)
[2023-03-30 16:06] LABS: BILIRUBIN,TOTAL 0.7 MG/DL (0.1-1.0)
[2023-03-30 16:08] LABS: CREATININE SERUM 0.86 MG/DL (0.60-1.30)
[2023-03-30] MEDS: NS IV 1000 ML 1,000 ML IV SCH (16:14)
--- NOTE | 2023-03-30 16:20 | Diagnostic Imaging Report ---
EXAMINATION: Abdominal series and chest radiograph. HISTORY: Constipation. COMPARISON: 11/10/2016. FINDINGS: There is a prosthetic aortic valve. Loop recorder projects over the heart. There is a moderate left and small right pleural effusion and overlying atelectasis. No pneumothorax. Small bowel loops in the left abdomen are mildly dilated. No free air is seen. IMPRESSION: 1. Mildly dilated loops of bowel in the left mid abdomen. 2. Moderate left and small right pleural effusions with overlying atelectasis. Dictated by: Dictated on workstation # [id number]
[2023-03-30] MEDS: LACTULOSE SYRUP 10GM/15ML (ENULOSE) 30ML UDC PO SCH ×4 (16:32→23:16)
[2023-03-30] MEDS: polyethylene glycoL POWDER 17 GM (MIRALAX) PACK PO SCH ×3 (16:32→23:17)
[2023-03-30 16:37] LABS: BAND NEUTROPHILS 5 %; LYMPHOCYTES % (MANUAL) 9 %; MONOCYTES % (MANUAL) 3 %; NEUTROPHILS % (MANUAL) 80 %
[2023-03-30 16:38] LABS: REACTIVE LYMPHOCYTES 3 %
[2023-03-30 16:43] LABS: ANISOCYTOSIS SLIGHT; SCHISTOCYTES SLIGHT
--- NOTE | 2023-03-30 17:43 | Progress Note-Pre Operative ---
Pre-Operative Progress Note Date of Available H&P: Mar 30, 2023 Date H&P Reviewed: Mar 30, 2023 Time H&P Reviewed: 18:00 History & Physical: No changes noted Pre-Operative Diagnosis: fecal impaction, constipation WILMAN DENNIS MD Mar 30, 2023 17:43
[2023-03-30] MEDS ORDERED: PREPARATION H OINTMENT 57 GR TUBE PR PRN (18:00)
--- NOTE | 2023-03-30 18:07 | CONSULTATION REPORT ---
ATTENDING PRIMARY CARE PHYSICIAN: Dr. Anum Bradshaw. ADMITTING PHYSICIAN: Dr. Wiggins. HISTORY OF PRESENT ILLNESS: The patient is an 87-year-old female who was seen by her physician recently. She has stated abdominal pain and distention as well as hemorrhoidal flareups. She states that she had taken some form of pain medication recently and then did not have a bowel movement for several days. She states that when she does try to have a bowel movement, she only has a small amount. She states that this does happen a few times a year and she has done self disimpaction on her own before; however, this time around this was ineffective. She did have an outpatient CT scan performed, which did show a large stool bolus within the rectal vault. It was discussed with the patient to proceed with anal exam under anesthesia, pudendal nerve block as well as a manual disimpaction under anesthesia and she is in understanding of this and would like to proceed with this. PAST MEDICAL HISTORY: Hypertension, hypercholesterolemia, atrial fibrillation, gastroesophageal reflux disease, chronic constipation, gastroesophageal reflux disease, history of macular degeneration. PAST SURGICAL HISTORY: Pacemaker implantation, endovascular tricuspid valve replacement. Hysterectomy, tubal ligation, appendectomy, some form of bowel resection for unknown reason. ALLERGIES: BACITRACIN, LIDOCAINE, NEOMYCIN, POLYMYXIN B, PRIMAXIN. MEDICATIONS: Eliquis 2.5 mg b.i.d., Colace 100 mg daily, escitalopram 5 mg daily, Nexium 40 mg daily, iron 325 mg daily, furosemide 20 mg daily, losartan 100 mg daily, metoprolol 25 mg daily, Zofran p.r.n., pyridoxine 50 mg b.i.d., simvastatin 10 mg daily, Bactrim b.i.d. SOCIAL HISTORY: Negative smoke, negative alcohol. FAMILY HISTORY: Mother, breast cancer. VITAL SIGNS: Temperature 36.6, blood pressure 162/71, pulse 65, respirations 16, pulse ox 97% on room air. REVIEW OF SYSTEMS: Well-nourished female in no acute distress. She is not experiencing any shortness of breath or difficulty breathing. No chest pain, palpitations, diaphoresis. No nausea, vomiting, crampy lower abdominal pain with small loose bowel movements, no red blood per rectum, no dark tarry stools. No fever, chills, no recent inadvertent weight loss. All other review of systems negative. PHYSICAL EXAMINATION: CHEST: Decreased breath sounds bilateral bases. HEART: Regular. No murmurs. EXTREMITIES: No lower extremity edema. Negative Homans sign. HEENT: No scleral icterus. No cervical lymphadenopathy. ABDOMEN: Distended with mild discomfort in the lower abdominal quadrants. No hernias. SKIN: Warm, dry. LABORATORY DATA: WBC 6.1, hemoglobin 13.0, hematocrit 38, platelets 289. BUN 16, creatinine 0.86. ASSESSMENT AND PLAN: An 87-year-old female with a fecal impaction, most likely secondary due to opioid, pain medications and a low-fiber diet. She does get this approximately one time a year and is able to self disimpact herself; however, this time around this has become ineffective. A CT scan did show a large stool bolus within the rectal vault and we will proceed with anal exam under anesthesia, pudendal nerve block as well as a manual disimpaction under anesthesia. Once this is done, she may then resume normal activities as well as a regular diet. Job ID: [id number] DocumentID: [id number] Dictated Date: 03/30/2023 17:41:48 Financial Analysis Consultant Date: 03/30/2023 18:05:00 Dictated By: WILMAN DENNIS MD
[2023-03-30] MEDS: SENNOSIDES 8.6 MG (SENOKOT) TAB PO SCH (20:25)
[2023-03-30] MEDS: DOCUSATE SODIUM 100 MG (COLACE) CAP PO SCH (20:25)
[2023-03-31] VITALS (9 sets, daily range): BP systolic 91–148; BP diastolic 39–81
[2023-03-31] MEDS: polyethylene glycoL POWDER 17 GM (MIRALAX) PACK PO SCH ×3 (03:03→11:45)
[2023-03-31] MEDS: LACTULOSE SYRUP 10GM/15ML (ENULOSE) 30ML UDC PO SCH ×3 (03:03→11:45)
[2023-03-31 05:56] LABS: ALBUMIN 3.4 GM/DL (3.2-4.5)
[2023-03-31 05:57] LABS: POTASSIUM 3.2 MMOL/L (3.6-5.0)
[2023-03-31 05:59] LABS: TOTAL PROTEIN 5.8 GM/DL (6.4-8.2)
[2023-03-31 06:01] LABS: BILIRUBIN,TOTAL 0.5 MG/DL (0.1-1.0)
[2023-03-31 06:03] LABS: CREATININE SERUM 0.79 MG/DL (0.60-1.30)
[2023-03-31] MEDS: POTASSIUM CL 10MEQ/50ML IVPB 50 ML IV SCH ×4 (06:22→10:21)
[2023-03-31 06:27] LABS: BASOPHILS % (AUTO) 1 % (0-10); EOSINOPHILS # (AUTO) 0.1 10^3/uL (0.0-0.3); EOSINOPHILS % (AUTO) 2 % (0-10); HEMATOCRIT 33 % (35-52); HEMOGLOBIN 11.6 g/dL (11.5-16.0); LYMPHOCYTES # (AUTO) 0.5 10^3/uL (1.0-4.0); LYMPHOCYTES % (AUTO) 9 % (12-44); MEAN CORPUSCULAR HEMOGLOBIN 31 pg (25-34); MEAN CORPUSCULAR HGB CONC 36 g/dL (32-36); MEAN CORPUSCULAR VOLUME 87 fL (80-99); MEAN PLATELET VOLUME 9.9 fL (9.0-12.2); MONOCYTES # (AUTO) 0.4 10^3/uL (0.0-1.0); MONOCYTES % (AUTO) 6 % (0-12); NEUTROPHILS # (AUTO) 4.7 10^3/uL (1.8-7.8); NEUTROPHILS % (AUTO) 82 % (42-75); PLATELET COUNT 241 10^3/uL (130-400); WHITE BLOOD COUNT 5.8 10^3/uL (4.3-11.0)
[2023-03-31] MEDS: NS IV 1000 ML 1,000 ML IV SCH (07:51)
[2023-03-31] MEDS: DOCUSATE SODIUM 100 MG (COLACE) CAP PO SCH (07:59)
[2023-03-31] MEDS: SENNOSIDES 8.6 MG (SENOKOT) TAB PO SCH (07:59)
--- NOTE | 2023-03-31 11:58 | Progress Note ---
Subjective Date Seen by a Provider: Mar 31, 2023 Time Seen by a Provider: 11:00 Subjective/Events-last exam had mutilple BM's last night however all liquid. Objective Exam Vital Signs Date Time Temp Pulse Resp B/P (MAP) Pulse Ox O2 Delivery O2 Flow Rate FiO2 03/31/23 11:16 36.6 68 18 148/81 (103) 98 Room Air 03/31/23 08:20 Room Air 03/31/23 07:22 36.7 69 16 148/70 (96) 98 Room Air 03/31/23 04:31 36.7 64 18 142/68 (92) 96 Room Air 03/30/23 23:11 36.4 64 16 152/65 (94) 99 Room Air 03/30/23 20:30 Room Air 03/30/23 20:00 36.6 65 16 162/71 (101) 97 Room Air 03/30/23 19:51 36.8 61 17 121/86 (98) 96 Room Air 03/30/23 16:51 36.6 65 16 162/71 (101) 97 Room Air 03/30/23 15:52 Room Air 03/30/23 15:33 36.3 57 97 03/30/23 13:02 36.3 57 18 158/63 97 Room Air 03/30/23 12:36 36.3 57 18 158/63 (94) 97 Room Air I & O 03/31/23 07:00 Intake Total 875 ml Balance 875 ml Capillary Refill : General Appearance: No Apparent Distress HEENT: PERRL/EOMI Neck: Full Range of Motion Respiratory: Chest Non Tender, Lungs Clear, Normal Breath Sounds Cardiovascular: Regular Rate, Rhythm Gastrointestinal: normal bowel sounds, distended, tenderness Extremity: Normal Capillary Refill Neurologic/Psychiatric: Alert, Oriented x3 Skin: Normal Color Lymphatic: No Adenopathy Results Lab Laboratory Tests 03/30/23 15:42: White Blood Count 6.1, Red Blood Count 4.35, Hemoglobin 13.0, Hematocrit 38, Mean Corpuscular Volume 87, Mean Corpuscular Hemoglobin 30, Mean Corpuscular Hemoglobin Concent 34, Red Cell Distribution Width 16.2H, Platelet Count 289, Mean Platelet Volume 9.3, Immature Granulocyte % (Auto) 0, Neutrophils (%) (Auto) 85H, Lymphocytes (%) (Auto) 8L, Monocytes (%) (Auto) 6, Eosinophils (%) (Auto) 1, Basophils (%) (Auto) 1, Neutrophils # (Auto) 5.2, Lymphocytes # (Auto) 0.5L, Monocytes # (Auto) 0.4, Eosinophils # (Auto) 0.0, Basophils # (Auto) 0.0, Immature Granulocyte # (Auto) 0.0, Neutrophils % (Manual) 80, Lymphocytes % (Manual) 9, Monocytes % (Manual) 3, Band Neutrophils 5, Reactive Lymphocytes 3, Anisocytosis SLIGHT, Schistocytes SLIGHT, Sodium Level 125*L, Potassium Level 4.5, Chloride Level 93L, Carbon Dioxide Level 16L, Anion Gap 16H, Blood Urea Nitrogen 16, Creatinine 0.86, Estimat Glomerular Filtration Rate 65, BUN/Creatinine Ratio 19, Glucose Level 92, Calcium Level 8.9, Corrected Calcium 9.0, Total Bilirubin 0.7, Aspartate Amino Transf (AST/SGOT) 27, Alanine Aminotransferase (ALT/SGPT) 16, Alkaline Phosphatase 75, Total Protein 6.8, Albumin 3.9 03/31/23 05:33: White Blood Count 5.8, Red Blood Count 3.77L, Hemoglobin 11.6, Hematocrit 33L, Mean Corpuscular Volume 87, Mean Corpuscular Hemoglobin 31, Mean Corpuscular Hemoglobin Concent 36, Red Cell Distribution Width 16.1H, Platelet Count 241, Mean Platelet Volume 9.9, Immature Granulocyte % (Auto) 0, Neutrophils (%) (Auto) 82H, Lymphocytes (%) (Auto) 9L, Monocytes (%) (Auto) 6, Eosinophils (%) (Auto) 2, Basophils (%) (Auto) 1, Neutrophils # (Auto) 4.7, Lymphocytes # (Auto) 0.5L, Monocytes # (Auto) 0.4, Eosinophils # (Auto) 0.1, Basophils # (Auto) 0.0, Immature Granulocyte # (Auto) 0.0, Sodium Level 131L, Potassium Level 3.2L, Chloride Level 100, Carbon Dioxide Level 18L, Anion Gap 13, Blood Urea Nitrogen 11, Creatinine 0.79, Estimat Glomerular Filtration Rate 71, BUN/Creatinine Ratio 14, Glucose Level 79, Calcium Level 8.0L, Corrected Calcium 8.5, Total Bilirubin 0.5, Aspartate Amino Transf (AST/SGOT) 23, Alanine Aminotransferase (ALT/SGPT) 13, Alkaline Phosphatase 63, Total Protein 5.8L, Albumin 3.4, Percent Immature Platelet Fraction 2.0, Magnesium Level 1.9 Assessment/Plan Assessment/Plan Assess & Plan/Chief Complaint fecal impaction rectal vault. anal exam under anesth and disimpaction today. WILMAN DENNIS MD Mar 31, 2023 11:58
[2023-03-31] MEDS ORDERED: PROPOFOL INJECTION 50 ML IV ONE (12:11)
[2023-03-31] MEDS ORDERED: LIDOCAINE/EPI 1%-1:100,000 (XYLOCAINE) 20ML ONE (12:24)
--- NOTE | 2023-03-31 12:49 | Progress Note-Post Operative ---
Post-Operative Progess Note Surgeon (s)/Folder Hand (s) Surgeon WILMAN DENNIS MD Folder Hand: none Pre-Operative Diagnosis fecal impaction, constipation Post-Operative Diagnosis chronic stage 2 ext and int hemorrhoids, no fissures, fistulas, masses. Procedure & Operative Findings Date of Procedure 03/31/23 Procedure Performed/Findings anal exam under anesthesia, pudendal nerve block, disimpaction stool. Anesthesia Type mac with pudendal nerve block. Estimated Blood Loss Estimated blood loss (mL): minimal Specimens/Packing Specimens Removed none WILMAN DENNIS MD Mar 31, 2023 12:49
--- NOTE | 2023-03-31 12:51 | Discharge Inst-Surgical ---
D/C Lap Instructions-SONNY Follow Up PRN Activity as tolerated High Fiber Diet 25g or more per day Avoid Alcohol, Caffeine, Spicy [place] and Acid foods. Drink 64 fluid oz or more of fluids per day. Symptoms to Report: Fever over 101 degree F, Nausea/Vomiting If any problems/questions: Contact your physician or go to Emergency Room WILMAN DENNIS MD Mar 31, 2023 12:51
--- NOTE | 2023-03-31 12:57 | History & Physical ---
MIKE LUJAN 03/31/23 1257: History of Present Illness History of Present Illness Reason for visit/HPI Ashley Nguyen is an 87yo F with past medical hx of HTN, HLD, afib, GERD, constipation, pacemaker placement, and tricuspid valve replacement who was admitted on 03/30 after seeing her primary care provider for several days of abdominal pain, distention and some rectal bleeding due to hemorrhoids. She has a history of constipation and has had to manually disimpact her self before. She was unable to relieve herself and her symptoms progressed. She denies any N/V. Denies any new lumps or masses in the abdomen. Denies dark tarry stools but does report some bright red blood she gets with her hemorrhoids. She reports her pain is improved this morning and she has had some liquid BM overnight after fleet enema and bowel regimen. An outpatient scan showed significant fecal volume in rectum and obstruction. General surgery planning exam under anesthesia and disimpaction today. Date of Admission Mar 30, 2023 at 15:11 Time Seen by a Provider: 10:00 I consulted on this patient on 03/31/23 12:50 Attending Physician Anum Bradshaw MD Admitting Physician Admitting Physician: Shannan Childress DO Attending Physician: Shannan Childress DO Consult Allergies and Home Medications Allergies Coded Allergies: bacitracin (Verified Allergy, Mild, RASH, 10/15/19) lidocaine (Verified Allergy, Mild, RASH, 10/15/19) neomycin (Verified Allergy, Mild, RASH, 10/15/19) polymyxin B (Verified Allergy, Mild, RASH, 10/15/19) pramoxine (Verified Allergy, Mild, RASH, 10/15/19) Patient Home Medication List Home Medication List Reviewed: Yes Acetaminophen (Acetaminophen ER) 650 Mg Tablet.er, 650 MG PO HS, (Reported) Entered as Reported by: CRYSTAL NEVES on 04/24/17 09 Last Action: Reviewed Apixaban (Eliquis) 2.5 Mg Tablet, 2.5 MG PO BID, (Reported) Entered as Reported by: AMPARO COCHRAN on 01/04/22 0855 Last Action: Reviewed Calcium Citrate/Vitamin D3 (Calcium Citrate - Vit D3 Tab) 1 Each Tablet, 1 TAB PO DAILY, (Reported) Entered as Reported by: CRYSTAL NEVES on 04/24/17 0903 Last Action: Reviewed Cephalexin (Cephalexin) 500 Mg Tablet, 500 MG PO TID Prescribed by: KARL VILLA on 03/16/232256 Last Action: Reviewed Docusate Sodium (Docusate Sodium) 100 Mg Tablet, 100 MG PO DAILY, (Reported) Entered as Reported by: KATIE QUEVEDO on 03/15/23 1401 Last Action: Reviewed Escitalopram Oxalate (Escitalopram Oxalate) 5 Mg Tablet, 5 MG PO DAILY, (Reported) Entered as Reported by: MARE MCDERMOTT on 11/07/16 0907 Last Action: Reviewed Esomeprazole Magnesium (Esomeprazole Magnesium) 40 Mg Capsule.dr, 40 MG PO DAILY, (Reported) Entered as Reported by: KATIE QUEVEDO on 03/15/23 135 Last Action: Reviewed Ferrous Sulfate (Ferrous Sulfate) 325 Mg (65 Mg Iron) Tablet, 325 MG PO DAILY, (Reported) Entered as Reported by: KATIE QUEVEDO on 03/15/23 135 Last Action: Reviewed Furosemide (Lasix) 20 Mg Tablet, 20 MG PO DAILY Prescribed by: SHANNAN CHILDRESS on 03/16/23 113 Last Action: Reviewed Losartan Potassium (Losartan Potassium) 100 Mg Tablet, 100 MG PO DAILY Prescribed by: SHANNAN CHILDRESS on 03/16/23 113 Last Action: Reviewed Magnesium Oxide (Magnesium Oxide) 250 Mg Tablet, 250 MG PO DAILY PRN for LEG CRAMPS, (Reported) Entered as Reported by: KATIE QUEVEDO on 03/15/23 1358 Last Action: Reviewed Metoprolol Succinate (Metoprolol Succinate) 25 Mg Tab.er.24h, 25 MG PO BID Prescribed by: SHANNNA CHILDRESS on 03/16/23 113 Last Action: Reviewed Multivitamin (Multiple Vitamins) 1 Each Tablet, 1 EACH PO DAILY, (Reported) Entered as Reported by: ALBERTO BROWN on 10/15/19 0812 Last Action: Reviewed Ondansetron (Ondansetron Odt) 4 Mg Tab.rapdis, 4 MG SL Q8H PRN for NAUSEA/VOMITING Prescribed by: KARL VILLA on 03/16/232256 Last Action: Reviewed Potassium Chloride (Potassium Chloride) 8 Meq Capsule.er, 8 MEQ PO DAILY Prescribed by: SHANNAN CHILDRESS on 03/16/23 1133 Last Action: Reviewed Pyridoxine HCl (Vitamin B-6) 50 Mg Tablet, 50 MG PO BID, (Reported) Entered as Reported by: KATIE QUEVEDO on 03/15/23 1358 Last Action: Reviewed Simvastatin (Simvastatin) 10 Mg Tablet, 10 MG PO HS, (Reported) Entered as Reported by: AMPARO COCHRAN on 01/04/22 0855 Last Action: Reviewed Sulfamethoxazole/Trimethoprim (Bactrim Ds Tablet) 1 Each Tablet, 1 EACH PO BID Prescribed by: HARMONY RICE on 03/21/23 0710 Last Action: Reviewed Past Chpjlcd-Ftsopd-Dvtmtk Hx Patient Social History Marrital Status: Tobacco Use?: No Use of E-Cig and/or Vaping dev: No Substance use?: No Alcohol Use?: No Pt feels they are or have been: No Immunizations Up To Date Date of Influenza Vaccine: Jul 01, 2019 First/Initial COVID19 Vaccinat: 2020 Second COVID19 Vaccination Conor: 2020 Tetanus Booster (TDap): More Than 5 Years Hepatitis A: No Hepatitis B: No Date of Pneumonia Vaccine: Jul 01, 2019 Seasonal Allergies Seasonal Allergies: No Current Status Advance Directives: No Communicates: Verbally Primary Language: Norwegian Preferred Spoken Language: Norwegian Is interpretation needed?: No Sensory deficits: Vision impairment Implanted or Applied Medical D: Pacemaker Past Medical History Surgeries: Orthopedic, Pacemaker, Valve Replacement (tricuspid) Currently Using CPAP: No Currently Using BIPAP: No Atrial Fibrillation, High Cholesterol, Hypertension 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 DOWN SYNDROME) Hypertension 19 MOTHER G8 SISTER Kidney disease sister Myocardial infarction 19 FATHER Neoplasm 19 MOTHER (BREAST CANCER) Visual disorder 19 MOTHER (MACULAR DEGENERATION) Heart Disease, Cancer (breast cancer in mother), Hypertension Review of Systems Constitutional: No chills, No diaphoresis, No fever EENTM: No hearing loss, No hoarseness Respiratory: No cough, No short of breath Cardiovascular: No chest pain, No palpitations Gastrointestinal: abdominal pain (improved since admission), constipation; No nausea, No vomiting Musculoskeletal: joint pain Skin: No change in color, No change in hair/nails Psychiatric/Neurological: Headache; Denies Weakness Physical Exam Vital Signs Vital Signs - First Documented 03/30/23 12:36 Temp 36.3 Pulse 57 Resp 18 B/P (MAP) 158/63 (94) Pulse Ox 97 O2 Delivery Room Air Capillary Refill : Height, Weight, BMI Height: 5'3.00" Weight: 82lbs. 6.4oz. [id number]; 16.36 BMI Method:Stated General Appearance: No Apparent Distress, WD/WN, Thin HEENT: PERRL/EOMI, Moist Mucous Membranes Neck: Supple Respiratory: Lungs Clear, No Accessory Muscle Use, No Respiratory Distress Cardiovascular: Regular Rate, Rhythm, Normal Peripheral Pulses Gastrointestinal: Soft; No Distended; Other (nontender to palpation but does report minimal abdominal pain) Rectal: Deferred Extremity: No Calf Tenderness, No Pedal Edema Neurologic/Psychiatric: Alert, Oriented x3, Normal Mood/Affect Skin: Normal Color, Warm/Dry Assessment/Plan Assessment and Plan Fecal impaction Bowel obstruction Abdominal pain Hemorrhoids General surgery consulted. Dr Ahuja planning exam under anesthesia with disimpaction today liquid BM overnight following fleet enema and bowel regimen NPO for procedure Advance diet as tolerated following procedure ointment for hemorrhoids No signs of bowel ischemia on imaging, remains stable with no signs of infection. Afebrile and normal WBC count Acute abdomen series showed dilated bowel in mid L abdomen Hyponatremia 125 on admission up to 131 after IV fluids continue to monitor Hypokalemia 3.2 this morning received 50meq of KCl Recheck in AM, continue to monitor HTN HLD resume home meds when appropriate blood pressure 141/81 last check Diet NPO for procedure DVT ppx- lovenox SHANNAN CHILDRESS DO 03/31/23 2221: Allergies and Home Medications Allergies Coded Allergies: bacitracin (Verified Allergy, Mild, RASH, 10/15/19) lidocaine (Verified Allergy, Mild, RASH, 10/15/19) neomycin (Verified Allergy, Mild, RASH, 10/15/19) polymyxin B (Verified Allergy, Mild, RASH, 10/15/19) pramoxine (Verified Allergy, Mild, RASH, 10/15/19) Patient Home Medication List Acetaminophen (Acetaminophen ER) 650 Mg Tablet.er, 650 MG PO HS, (Reported) Entered as Reported by: CRYSTAL NEVES on 04/24/17 0925 Last Action: Reviewed Apixaban (Eliquis) 2.5 Mg Tablet, 2.5 MG PO BID, (Reported) Entered as Reported by: AMPARO COCHRAN on 01/04/22 0855 Last Action: Reviewed Calcium Citrate/Vitamin D3 (Calcium Citrate - Vit D3 Tab) 1 Each Tablet, 1 TAB PO DAILY, (Reported) Entered as Reported by: CRYSTAL NEVES on 04/24/17 0903 Last Action: Reviewed Cephalexin (Cephalexin) 500 Mg Tablet, 500 MG PO TID Prescribed by: KARL VILLA on 03/16/23 2257 Last Action: Reviewed Docusate Sodium (Docusate Sodium) 100 Mg Tablet, 100 MG PO DAILY, (Reported) Entered as Reported by: KATIE QUEVEDO on 03/15/23 1401 Last Action: Reviewed Escitalopram Oxalate (Escitalopram Oxalate) 5 Mg Tablet, 5 MG PO DAILY, (Reported) Entered as Reported by: MARE MCDERMOTT on 11/07/16 0907 Last Action: Reviewed Esomeprazole Magnesium (Esomeprazole Magnesium) 40 Mg Capsule.dr, 40 MG PO DAILY, (Reported) Entered as Reported by: KATIE QUEVEDO on 03/15/23 1358 Last Action: Reviewed Ferrous Sulfate (Ferrous Sulfate) 325 Mg (65 Mg Iron) Tablet, 325 MG PO DAILY, (Reported) Entered as Reported by: KATIE QUEVEDO on 03/15/23 1358 Last Action: Reviewed Furosemide (Lasix) 20 Mg Tablet, 20 MG PO DAILY Prescribed by: SHANNAN CHILDRESS on 03/16/23 1133 Last Action: Reviewed Losartan Potassium (Losartan Potassium) 100 Mg Tablet, 100 MG PO DAILY Prescribed by: SHANNAN CHILDRESS on 03/16/23 113 Last Action: Reviewed Magnesium Oxide (Magnesium Oxide) 250 Mg Tablet, 250 MG PO DAILY PRN for LEG CRAMPS, (Reported) Entered as Reported by: KATIE QUEVEDO on 03/15/23 135 Last Action: Reviewed Metoprolol Succinate (Metoprolol Succinate) 25 Mg Tab.er.24h, 25 MG PO BID Prescribed by: SHANNAN CHILDRESS on 03/16/23 113 Last Action: Reviewed Multivitamin (Multiple Vitamins) 1 Each Tablet, 1 EACH PO DAILY, (Reported) Entered as Reported by: ALBERTO BROWN on 10/15/19 0812 Last Action: Reviewed Ondansetron (Ondansetron Odt) 4 Mg Tab.rapdis, 4 MG SL Q8H PRN for NAUSEA/VOMITING Prescribed by: KARL VILLA on 03/16/23 2257 Last Action: Reviewed Potassium Chloride (Potassium Chloride) 8 Meq Capsule.er, 8 MEQ PO DAILY Prescribed by: SHANNAN CHILDRESS on 03/16/23 1133 Last Action: Reviewed Pyridoxine HCl (Vitamin B-6) 50 Mg Tablet, 50 MG PO BID, (Reported) Entered as Reported by: KATIE QUEVEDO on 03/15/23 1358 Last Action: Reviewed Simvastatin (Simvastatin) 10 Mg Tablet, 10 MG PO HS, (Reported) Entered as Reported by: AMPARO COCHRAN on 01/04/22 0855 Last Action: Reviewed Sulfamethoxazole/Trimethoprim (Bactrim Ds Tablet) 1 Each Tablet, 1 EACH PO BID Prescribed by: HARMONY RICE on 03/21/23 0710 Last Action: Reviewed Past Nwtjrig-Rzlbah-Tukxav Hx Family Medical History Congenital disease G8 BROTHER (? DOWN SYNDROME) Hypertension 19 MOTHER G8 SISTER Kidney disease sister Myocardial infarction 19 FATHER Neoplasm 19 MOTHER (BREAST CANCER) Visual disorder 19 MOTHER (MACULAR DEGENERATION) Assessment/Plan Assessment and Plan Problems: (1) Obstipation Admission Diagnosis Admission Status: Observation Supervisory-Addendum Brief Verification & Attestation Participated in pt care: history, MDM, physical Personally performed: exam, history, MDM, supervision of care Care discussed with: Medical Student Procedures: n/a Results interpretation: Verified all documentation Verification and Attestation of Medical Student E/M Service A medical student performed and documented this service in my presence. I reviewed and verified all information documented by the medical student and made modifications to such information, when appropriate. I personally performed the physical exam and medical decision making. Shannan Childress Mar 31, 2023,22:21 MIKE LUJAN Mar 31, 2023 12:57 SHANNAN CHILDRESS DO Mar 31, 2023 22:21
[2023-03-31] MEDS ORDERED: ONDANSETRON 4 MG/2 ML (SDV) Z0FRAN IVP PRN (13:00)
[2023-03-31] MEDS ORDERED: morphine INJ 10 MG/ML 1ML (SYR OR VIAL) IVP ONE (13:00)
--- NOTE | 2023-03-31 15:13 | Discharge Summary ---
Diagnosis/Chief Complaint Date of Admission Mar 30, 2023 at 15:11 Date of Discharge Discharge Date: Mar 31, 2023 Discharge Diagnosis Obstipation s/p disimpaction under anesthesia Discharge Summary Discharge Physical Examination Allergies: Coded Allergies: bacitracin (Verified Allergy, Mild, RASH, 10/15/19) lidocaine (Verified Allergy, Mild, RASH, 10/15/19) neomycin (Verified Allergy, Mild, RASH, 10/15/19) polymyxin B (Verified Allergy, Mild, RASH, 10/15/19) pramoxine (Verified Allergy, Mild, RASH, 10/15/19) Vitals & I&Os Vital Signs Date Time Temp Pulse Resp B/P (MAP) Pulse Ox O2 Delivery O2 Flow Rate FiO2 03/31/23 16:11 03/31/23 13:32 36.6 61 16 98 Room Air 03/31/23 13:10 10.00 Hospital Course Labs (last 24 hrs) Laboratory Tests 03/30/23 15:42: White Blood Count 6.1, Red Blood Count 4.35, Hemoglobin 13.0, Hematocrit 38, Mean Corpuscular Volume 87, Mean Corpuscular Hemoglobin 30, Mean Corpuscular Hemoglobin Concent 34, Red Cell Distribution Width 16.2H, Platelet Count 289, Mean Platelet Volume 9.3, Immature Granulocyte % (Auto) 0, Neutrophils (%) (Auto) 85H, Lymphocytes (%) (Auto) 8L, Monocytes (%) (Auto) 6, Eosinophils (%) (Auto) 1, Basophils (%) (Auto) 1, Neutrophils # (Auto) 5.2, Lymphocytes # (Auto) 0.5L, Monocytes # (Auto) 0.4, Eosinophils # (Auto) 0.0, Basophils # (Auto) 0.0, Immature Granulocyte # (Auto) 0.0, Neutrophils % (Manual) 80, Lymphocytes % (Manual) 9, Monocytes % (Manual) 3, Band Neutrophils 5, Reactive Lymphocytes 3, Anisocytosis SLIGHT, Schistocytes SLIGHT, Sodium Level 125*L, Potassium Level 4.5, Chloride Level 93L, Carbon Dioxide Level 16L, Anion Gap 16H, Blood Urea Nitrogen 16, Creatinine 0.86, Estimat Glomerular Filtration Rate 65, BUN/Creatinine Ratio 19, Glucose Level 92, Calcium Level 8.9, Corrected Calcium 9.0, Total Bilirubin 0.7, Aspartate Amino Transf (AST/SGOT) 27, Alanine Aminotransferase (ALT/SGPT) 16, Alkaline Phosphatase 75, Total Protein 6.8, Albumin 3.9 03/31/23 05:33: White Blood Count 5.8, Red Blood Count 3.77L, Hemoglobin 11.6, Hematocrit 33L, Mean Corpuscular Volume 87, Mean Corpuscular Hemoglobin 31, Mean Corpuscular Hemoglobin Concent 36, Red Cell Distribution Width 16.1H, Platelet Count 241, Mean Platelet Volume 9.9, Immature Granulocyte % (Auto) 0, Neutrophils (%) (Auto) 82H, Lymphocytes (%) (Auto) 9L, Monocytes (%) (Auto) 6, Eosinophils (%) (Auto) 2, Basophils (%) (Auto) 1, Neutrophils # (Auto) 4.7, Lymphocytes # (Auto) 0.5L, Monocytes # (Auto) 0.4, Eosinophils # (Auto) 0.1, Basophils # (Auto) 0.0, Immature Granulocyte # (Auto) 0.0, Sodium Level 131L, Potassium Level 3.2L, Chloride Level 100, Carbon Dioxide Level 18L, Anion Gap 13, Blood Urea Nitrogen 11, Creatinine 0.79, Estimat Glomerular Filtration Rate 71, BUN/Creatinine Ratio 14, Glucose Level 79, Calcium Level 8.0L, Corrected Calcium 8.5, Total Bilirubin 0.5, Aspartate Amino Transf (AST/SGOT) 23, Alanine Aminotransferase (ALT/SGPT) 13, Alkaline Phosphatase 63, Total Protein 5.8L, Albumin 3.4, Percent Immature Platelet Fraction 2.0, Magnesium Level 1.9 Pending Labs Laboratory Tests 03/30/23 15:42: White Blood Count 6.1, Red Blood Count 4.35, Hemoglobin 13.0, Hematocrit 38, Mean Corpuscular Volume 87, Mean Corpuscular Hemoglobin 30, Mean Corpuscular Hemoglobin Concent 34, Red Cell Distribution Width 16.2, Platelet Count 289, Mean Platelet Volume 9.3, Immature Granulocyte % (Auto) 0, Neutrophils (%) (Auto) 85, Lymphocytes (%) (Auto) 8, Monocytes (%) (Auto) 6, Eosinophils (%) (Auto) 1, Basophils (%) (Auto) 1, Neutrophils # (Auto) 5.2, Lymphocytes # (Auto) 0.5, Monocytes # (Auto) 0.4, Eosinophils # (Auto) 0.0, Basophils # (Auto) 0.0, Immature Granulocyte # (Auto) 0.0, Neutrophils % (Manual) 80, Lymphocytes % (Manual) 9, Monocytes % (Manual) 3, Band Neutrophils 5, Reactive Lymphocytes 3, Anisocytosis SLIGHT, Schistocytes SLIGHT, Sodium Level 125, Potassium Level 4.5, Chloride Level 93, Carbon Dioxide Level 16, Anion Gap 16, Blood Urea Nitrogen 16, Creatinine 0.86, Estimat Glomerular Filtration Rate 65, BUN/Creatinine Ratio 19, Glucose Level 92, Calcium Level 8.9, Corrected Calcium 9.0, Total Bilirubin 0.7, Aspartate Amino Transf (AST/SGOT) 27, Alanine Aminotransferase (ALT/SGPT) 16, Alkaline Phosphatase 75, Total Protein 6.8, Albumin 3.9 03/31/23 05:33: White Blood Count 5.8, Red Blood Count 3.77, Hemoglobin 11.6, Hematocrit 33, Mean Corpuscular Volume 87, Mean Corpuscular Hemoglobin 31, Mean Corpuscular Hemoglobin Concent 36, Red Cell Distribution Width 16.1, Platelet Count 241, Mean Platelet Volume 9.9, Immature Granulocyte % (Auto) 0, Neutrophils (%) (Auto) 82, Lymphocytes (%) (Auto) 9, Monocytes (%) (Auto) 6, Eosinophils (%) (Auto) 2, Basophils (%) (Auto) 1, Neutrophils # (Auto) 4.7, Lymphocytes # (Auto) 0.5, Monocytes # (Auto) 0.4, Eosinophils # (Auto) 0.1, Basophils # (Auto) 0.0, Immature Granulocyte # (Auto) 0.0, Sodium Level 131, Potassium Level 3.2, Chloride Level 100, Carbon Dioxide Level 18, Anion Gap 13, Blood Urea Nitrogen 11, Creatinine 0.79, Estimat Glomerular Filtration Rate 71, BUN/Creatinine Ratio 14, Glucose Level 79, Calcium Level 8.0, Corrected Calcium 8.5, Total Bilirubin 0.5, Aspartate Amino Transf (AST/SGOT) 23, Alanine Aminotransferase (ALT/SGPT) 13, Alkaline Phosphatase 63, Total Protein 5.8, Albumin 3.4, Percent Immature Platelet Fraction 2.0, Magnesium Level 1.9 Discharge Home Medications: Active Scripts Active Bactrim Ds Tablet (Sulfamethoxazole/Trimethoprim) 1 Each Tablet 1 Each PO BID Ondansetron Odt (Ondansetron) 4 Mg Tab.rapdis 4 Mg SL Q8H PRN Cephalexin 500 Mg Tablet 500 Mg PO TID Potassium Chloride 8 Meq Capsule.er 8 Meq PO DAILY Lasix (Furosemide) 20 Mg Tablet 20 Mg PO DAILY Metoprolol Succinate 25 Mg Tab.er.24h 25 Mg PO BID Losartan Potassium 100 Mg Tablet 100 Mg PO DAILY Reported Docusate Sodium 100 Mg Tablet 100 Mg PO DAILY Vitamin B-6 (Pyridoxine HCl) 50 Mg Tablet 50 Mg PO BID Ferrous Sulfate 325 Mg (65 Mg Iron) Tablet 325 Mg PO DAILY Magnesium Oxide 250 Mg Tablet 250 Mg PO DAILY PRN Esomeprazole Magnesium 40 Mg Capsule.dr 40 Mg PO DAILY Eliquis (Apixaban) 2.5 Mg Tablet 2.5 Mg PO BID Simvastatin 10 Mg Tablet 10 Mg PO HS Multiple Vitamins (Multivitamin) 1 Each Tablet 1 Each PO DAILY Acetaminophen ER (Acetaminophen) 650 Mg Tablet.er 650 Mg PO HS Calcium Citrate - Vit D3 Tab (Calcium Citrate/Vitamin D3) 1 Each Tablet 1 Tab PO DAILY Escitalopram Oxalate 5 Mg Tablet 5 Mg PO DAILY Instructions to patient/family Please see electronic discharge instructions given to patient. SHAHRZAD CHILDRESS DO Mar 31, 2023 15:13
--- NOTE | 2023-03-31 17:25 | OPERATIVE REPORT ---
DATE OF SERVICE: 03/31/2023 ATTENDING PRIMARY CARE PHYSICIAN: Anum Bradshaw MD PREOPERATIVE DIAGNOSES: Constipation and fecal impaction. POSTOPERATIVE DIAGNOSES: Chronic stage II, external and internal hemorrhoids. No fissures, fistulas, masses nor any distal obstructions. PROCEDURE: Anal exam under anesthesia, pudendal nerve block, disimpaction rectal vault. SURGEON: Wilman Dennis MD ANESTHESIA: Monitored anesthesia care and pudendal nerve block. ESTIMATED BLOOD LOSS: Minimal. FINDINGS: Some remaining solid stool within the rectal vault; however, majority now liquid. DISPOSITION: The patient tolerated the procedure well. INDICATIONS: The patient is an 87-year-old female who was recently seen by her physician related to crampy abdominal pain, abdominal distention and hemorrhoidal flare up. She had taken some form of pain medication recently as well as antibiotics and states that she did not have a bowel movement for a significant amount of time. She stated when she did feel the urge, she would only have a small amount of hard and well-formed stools. She states that this does happen a few times a year and has done self impaction on her own before as well. An outpatient CT scan was performed, which did show a large stool bolus within the rectal vault. We will proceed with anal exam under anesthesia, manual disimpaction as well as a pudendal nerve block. DESCRIPTION OF PROCEDURE: The patient was brought to the operating room, laid supine on the table. After adequate IV pain and sedative medications and monitored anesthesia care, the patient was placed in lithotomy position. A pudendal nerve block was then performed using 1% lidocaine with epinephrine bilaterally approximately 1 cm below the ischial tuberosity. Once the anal sphincters relaxed a self-retaining speculum was placed and the circumference of the external anal canal and rectum were examined with chronic stage II, external and internal hemorrhoids identified. There were no polyps, neoplasms or fissures nor any fistula was identified. There was some retained solid stool within the rectal vault; however, majority was liquid as well as a copious amount of gas. The remainder of the solid and liquid stools were then evacuated manually. Good hemostasis was observed. The patient tolerated the procedure well. We will recommend the necessary lifestyle and dietary accommodation including incorporation of a high-fiber diet with addition of a fiber supplement, which equal or exceed 25-30 grams daily as well as significant amounts of water to promote soft consistency stools on a daily basis. If she does have times where her stools are more solid or well formed, we will then recommend a stool softener or laxative; however, we would rather have her take this more on an as needed basis versus regularly due to the decreasing effects over time. Job ID: [id number] DocumentID: [id number] Dictated Date: 03/31/2023 12:57:00 Leveler Helper Date: 03/31/2023 17:23:00 Dictated By: WILMAN DENNIS MD
--- NOTE | 2023-04-01 13:00 | Anesthesia-General Post-Op ---
MAC Patient Condition Mental Status/LOC: Same as Preop Cardiovascular: Satisfactory Nausea/Vomiting: Absent Respiratory: Satisfactory Pain: Controlled Complications: Absent Post Op Complications Complications None Follow Up Care/Instructions Patient Instructions None needed. Anesthesiology Discharge Order Discharge Order Patient is doing well, no complaints, stable vital signs, no apparent adverse anesthesia problems. No complications reported per nursing. IRINEO ELLIS CRNA Apr 01, 2023 13:00
== END 2023-03-31 15:12 | disposition home or self-care (01) ==
LOC: SDC 12:03 → 4TH 12:16 → 4THo 15:11 → UNDOADMOB 15:11 → 4TH 15:11 → UNDODISOB 03-31 15:12
PROVIDERS: ADMIT Internal Medicine; ATTEND Internal Medicine
DX: K56.41 Fecal impaction (principal); K64.4 Residual hemorrhoidal skin tags; K64.1 Second degree hemorrhoids; K21.9 Gastro-esophageal reflux disease without esophagitis; K56.609 Unspecified intestinal obstruction, unspecified as to partial versus complete obstruction; E87.1 Hypo-osmolality and hyponatremia; E87.6 Hypokalemia; I10 Essential (primary) hypertension; E78.5 Hyperlipidemia, unspecified; Z79.899 Other long term (current) drug therapy
CPT/HCPCS: 45915; 74022; 80053 ×2; 83735; 85007; 85025; 85027; 96365; 96366; 96372; G0378; G0379; G0463 ×2; 36415; 99211; 99212

== ENCOUNTER → 2023-05-03 | Outpatient (CLI) | payer MEDICARE, OTHER ==
[2023-05-03 11:05] LABS: HEMATOCRIT 35 % (35-52); HEMOGLOBIN 11.7 g/dL (11.5-16.0); MEAN CORPUSCULAR HEMOGLOBIN 30 pg (25-34); MEAN CORPUSCULAR HGB CONC 33 g/dL (32-36); MEAN CORPUSCULAR VOLUME 92 fL (80-99); MEAN PLATELET VOLUME 9.2 fL (9.0-12.2); PLATELET COUNT 211 10^3/uL (130-400); WHITE BLOOD COUNT 5.3 10^3/uL (4.3-11.0)
[2023-05-03 11:14] LABS: POTASSIUM 4.7 MMOL/L (3.6-5.0)
[2023-05-03 11:15] LABS: CALCIUM 8.9 MG/DL (8.5-10.1)
[2023-05-03 11:18] LABS: BILIRUBIN,TOTAL 0.5 MG/DL (0.1-1.0)
[2023-05-03 11:20] LABS: CREATININE SERUM 0.86 MG/DL (0.60-1.30)
== END ==
LOC: LAB 10:50
PROVIDERS: ATTEND Internal Medicine Cardiovascular Disease
DX: I11.9 Hypertensive heart disease without heart failure (principal); I25.10 Atherosclerotic heart disease of native coronary artery without angina pectoris; I48.0 Paroxysmal atrial fibrillation; I65.23 Occlusion and stenosis of bilateral carotid arteries; I35.0 Nonrheumatic aortic (valve) stenosis; I42.0 Dilated cardiomyopathy; Z79.01 Long term (current) use of anticoagulants; Z95.0 Presence of cardiac pacemaker
CPT/HCPCS: 36415; 80053; 83735; 84443; 85027

== ENCOUNTER 2023-05-12 09:26 | Emergency (ER) | payer MEDICARE, OTHER ==
[~2023-05-12] VITALS: Ht 152.4 cm; Wt 45.4 kg
--- NOTE | 2023-05-12 09:42 | ED General ---
General Chief Complaint: General Problems/Pain Stated Complaint: WEAKNESS History of Present Illness Date Seen by Provider: May 12, 2023 Time Seen by Provider: 09:42 Initial Comments 87-year-old female presents with feeling "a little faint" she does report about a week ago she had a fall and she is not sure why and she hit her head but did not seem to have any issues with that. Patient has not had a syncope event today she just feels a little weak. No cough fevers chills or other systemic complaints. Allergies and Home Medications Allergies Coded Allergies: bacitracin (Verified Allergy, Mild, RASH, 10/15/19) lidocaine (Verified Allergy, Mild, RASH, 10/15/19) neomycin (Verified Allergy, Mild, RASH, 10/15/19) polymyxin B (Verified Allergy, Mild, RASH, 10/15/19) pramoxine (Verified Allergy, Mild, RASH, 10/15/19) Patient Home Medication List Home Medication List Reviewed: Yes Acetaminophen (Acetaminophen ER) 650 Mg Tablet.er, 650 MG PO HS, (Reported) Entered as Reported by: CRYSTAL NEVES on 04/24/17 0925 Apixaban (Eliquis) 2.5 Mg Tablet, 2.5 MG PO BID, (Reported) Entered as Reported by: AMPARO COCHRAN on 01/04/22 0855 Calcium Citrate/Vitamin D3 (Calcium Citrate - Vit D3 Tab) 1 Each Tablet, 1 TAB PO DAILY, (Reported) Entered as Reported by: CRYSTAL NEVES on 04/24/17 0903 Cephalexin (Cephalexin) 500 Mg Tablet, 500 MG PO TID Prescribed by: KARL VILLA on 03/16/23 2257 Docusate Sodium (Docusate Sodium) 100 Mg Tablet, 100 MG PO DAILY, (Reported) Entered as Reported by: KATIE QUEVEDO on 03/15/23 1401 Escitalopram Oxalate (Escitalopram Oxalate) 5 Mg Tablet, 5 MG PO DAILY, (Reported) Entered as Reported by: MARE MCDERMOTT on 11/07/16 0907 Esomeprazole Magnesium (Esomeprazole Magnesium) 40 Mg Capsule.dr, 40 MG PO DAILY, (Reported) Entered as Reported by: KATIE QUEVEDO on 03/15/23 1358 Ferrous Sulfate (Ferrous Sulfate) 325 Mg (65 Mg Iron) Tablet, 325 MG PO DAILY, (Reported) Entered as Reported by: KATIE QUEVEDO on 03/15/23 1358 Furosemide (Lasix) 20 Mg Tablet, 20 MG PO DAILY Prescribed by: SHAHRZAD CHILDRESS on 03/16/23 1133 Losartan Potassium (Losartan Potassium) 100 Mg Tablet, 100 MG PO DAILY Prescribed by: SHAHRZAD CHILDRESS on 03/16/23 1133 Magnesium Oxide (Magnesium Oxide) 250 Mg Tablet, 250 MG PO DAILY PRN for LEG CRAMPS, (Reported) Entered as Reported by: KATIE QUEVEDO on 03/15/23 1358 Metoprolol Succinate (Metoprolol Succinate) 25 Mg Tab.er.24h, 25 MG PO BID Prescribed by: SHAHRZAD CHILDRESS on 03/16/23 1133 Multivitamin (Multiple Vitamins) 1 Each Tablet, 1 EACH PO DAILY, (Reported) Entered as Reported by: ALBERTO BROWN on 10/15/19 0812 Ondansetron (Ondansetron Odt) 4 Mg Tab.rapdis, 4 MG SL Q8H PRN for NAUSEA/VOMITING Prescribed by: KRAL VILLA on 03/16/23 2257 Potassium Chloride (Potassium Chloride) 8 Meq Capsule.er, 8 MEQ PO DAILY Prescribed by: SHAHRZAD CHILDRESS on 03/16/23 1133 Pyridoxine HCl (Vitamin B-6) 50 Mg Tablet, 50 MG PO BID, (Reported) Entered as Reported by: KATIE QUEVEDO on 03/15/23 1358 Simvastatin (Simvastatin) 10 Mg Tablet, 10 MG PO HS, (Reported) Entered as Reported by: AMPARO COCHRAN on 01/04/22 0855 Sulfamethoxazole/Trimethoprim (Bactrim Ds Tablet) 1 Each Tablet, 1 EACH PO BID Prescribed by: HARMONY RICE on 03/21/23 0710 Review of Systems Review of Systems Constitutional: see HPI, weakness EENTM: no symptoms reported Respiratory: no symptoms reported Cardiovascular: no symptoms reported Gastrointestinal: no symptoms reported Genitourinary: no symptoms reported Musculoskeletal: no symptoms reported Skin: no symptoms reported Psychiatric/Neurological: No Symptoms Reported Past [id number]-[id number] Hx Immunizations Up To Date Tetanus Booster (TDap): Unknown First/Initial COVID19 Vaccinat: 2020 Second COVID19 Vaccination Conor: 2020 Third COVID19 Vaccination Date: 2020 Seasonal Allergies Seasonal Allergies: No Past Medical History Surgery/Hospitalization HX: pacemaker, heart valve replacement, HTN, HLD, DEPRESSION, CHF, GERD, AFIB, MACULAR DEGENERATION, TUBAL, BOWEL RESECTION, BREAST BX. 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 DOWN SYNDROME) Hypertension 19 MOTHER G8 SISTER Kidney disease sister Myocardial infarction 19 FATHER Neoplasm 19 MOTHER (BREAST CANCER) Visual disorder 19 MOTHER (MACULAR DEGENERATION) Heart Disease, Cancer, Hypertension Physical Exam Vital Signs Vital Signs - First Documented 05/12/23 09:26 Temp 36.2 Pulse 63 Resp 16 B/P (MAP) 127/73 (91) O2 Delivery Room Air Capillary Refill : Height, Weight, BMI Height: 5'3.00" Weight: 82lbs. 6.4oz. 37.274336xl; 16.36 BMI Method:Stated General Appearance: No Apparent Distress, WD/WN Respiratory: Lungs Clear, Normal Breath Sounds Cardiovascular: Regular Rate, Rhythm, No Edema Extremity: Normal Capillary Refill Neurologic/Psychiatric: Oriented x3, No Motor/Sensory Deficits, Normal Mood/Affect, well logging captain mud analysis II-XII Norm as Tested Skin: Normal Color, Warm/Dry Progress/Results/Core Measures Suspected Sepsis SIRS Temperature: Pulse: Respiratory Rate: Laboratory Tests 05/12/23 10:20: White Blood Count 4.5 Blood Pressure / Mean: Laboratory Tests 05/12/23 10:20: Creatinine 0.79, Platelet Count 196, Total Bilirubin 1.1H Results/Orders Lab Results Laboratory Tests Test 05/12/23 10:00 05/12/23 10:20 05/12/23 11:50 Range/Units Influenza Type A (RT-PCR) Not Detected Not Detecte Influenza Type B (RT-PCR) Not Detected Not Detecte SARS-CoV-2 RNA (RT-PCR) Not Detected Not Detecte White Blood Count 4.5 4.3-11.0 10^3/uL Red Blood Count 3.98 3.80-5.11 10^6/uL Hemoglobin 12.3 11.5-16.0 g/dL Hematocrit 36 35-52 % Mean Corpuscular Volume 90 80-99 fL Mean Corpuscular Hemoglobin 31 25-34 pg Mean Corpuscular Hemoglobin Concent 34 32-36 g/dL Red Cell Distribution Width 16.3 H 10.0-14.5 % Platelet Count 196 130-400 10^3/uL Mean Platelet Volume 9.5 9.0-12.2 fL Immature Granulocyte % (Auto) 0 % Neutrophils (%) (Auto) 75 42-75 % Lymphocytes (%) (Auto) 13 12-44 % Monocytes (%) (Auto) 7 0-12 % Eosinophils (%) (Auto) 4 0-10 % Basophils (%) (Auto) 1 0-10 % Neutrophils # (Auto) 3.4 1.8-7.8 10^3/uL Lymphocytes # (Auto) 0.6 L 1.0-4.0 10^3/uL Monocytes # (Auto) 0.3 0.0-1.0 10^3/uL Eosinophils # (Auto) 0.2 0.0-0.3 10^3/uL Basophils # (Auto) 0.0 0.0-0.1 10^3/uL Immature Granulocyte # (Auto) 0.0 0.0-0.1 10^3/uL Sodium Level 133 L 135-145 MMOL/L Potassium Level 4.3 3.6-5.0 MMOL/L Chloride Level 99 98-107 MMOL/L Carbon Dioxide Level 23 21-32 MMOL/L Anion Gap 11 5-14 MMOL/L Blood Urea Nitrogen 20 H 7-18 MG/DL Creatinine 0.79 0.60-1.30 MG/DL Estimat Glomerular Filtration Rate 71 BUN/Creatinine Ratio 25 Glucose Level 89 70-105 MG/DL Calcium Level 9.0 8.5-10.1 MG/DL Corrected Calcium 8.8 8.5-10.1 MG/DL Magnesium Level 2.1 1.6-2.4 MG/DL Total Bilirubin 1.1 H 0.1-1.0 MG/DL Aspartate Amino Transf (AST/SGOT) 24 5-34 U/L Alanine Aminotransferase (ALT/SGPT) 17 0-55 U/L Alkaline Phosphatase 73 40-136 U/L Troponin I < 0.028 <0.028 NG/ML Total Protein 7.3 6.4-8.2 GM/DL Albumin 4.2 3.2-4.5 GM/DL Urine Color YELLOW Urine Clarity CLEAR Urine pH 7.5 5-9 Urine Specific [place] 1.015 L 1.016-1.022 Urine Protein NEGATIVE NEGATIVE Urine Glucose (UA) 1+ H NEGATIVE Urine Ketones 1+ H NEGATIVE Urine Nitrite NEGATIVE NEGATIVE Urine Bilirubin NEGATIVE NEGATIVE Urine Urobilinogen 0.2 < = 1.0 MG/DL Urine Leukocyte Esterase TRACE H NEGATIVE Urine RBC (Auto) TRACE H NEGATIVE Urine RBC 0-2 /HPF Urine WBC 0-2 /HPF Urine Squamous Epithelial Cells 0-2 /HPF Urine Crystals NONE /LPF Urine Bacteria NEGATIVE /HPF Urine Casts NONE /LPF Urine Mucus NEGATIVE /LPF Urine Culture Indicated NO My Orders Orders - PERES,PINO L DO Cbc With Automated Diff (05/12/23 09:43) Comprehensive Metabolic Panel (05/12/23 09:43) Magnesium (05/12/23 09:43) Troponin I [place] (05/12/23 09:43) Ua Culture If Indicated (05/12/23 09:43) Influenza A And B By Pcr (05/12/23 09:43) Covid 19 Inhouse Test (05/12/23 09:43) Ct Head Wo (05/12/23 09:43) Ed Iv/Invasive Line Start (05/12/23 09:43) Ns Iv 500 Ml (Sodium Chloride 0.9%) (05/12/23 09:45) Medications Given in ED Current Medications Medications Dose Ordered Sig/Sam Route Start Time Stop Time Status Last Admin Dose Admin Sodium Chloride 500 ml @ 0 mls/hr Q0M ONCE IV 05/12/23 09:45 05/12/23 09:46 DC 05/12/23 09:54 999 MLS/HR Vital Signs/I&O 05/12/23 09:26 Temp 36.2 Pulse 63 Resp 16 B/P (MAP) 127/73 (91) O2 Delivery Room Air Capillary Refill : Progress Note : Progress Note Diagnostic studies were ordered reviewed and interpreted by me. Patient had no concerning findings on her laboratory values. Patient's physical exam was benign. Patient CT head was negative. Patient is negative for COVID and influenza. Patient's urinalysis was normal. She does report she is feeling a lot better following some IV fluids and some rest here in the ER. Patient with, nonspecific weakness. Recommend she follows up with her primary care provider for recheck in a couple days sooner if her symptoms worsen or return. Patient was stable and discharged home. Departure Impression Primary Impression: Feeling faint Disposition: 01 HOME, SELF-CARE Condition: Stable Departure-Patient Inst. Referrals: ZEV FARRAR MD (PCP/Family) Primary Care Physician Patient Instructions: Generalized Weakness (DC), Syncope (fainting) Add. Discharge Instructions: Please follow-up with your primary care provider in a couple days to have your symptoms rechecked. Return to the ER with any concerns All discharge instructions reviewed with patient and/or family. Voiced understanding. PINO PERES DO May 12, 2023 09:42
[2023-05-12] MEDS ORDERED: NS IV 500 ML 500 ML IV ONE (09:45)
[2023-05-12 10:33] LABS: BASOPHILS % (AUTO) 1 % (0-10); EOSINOPHILS # (AUTO) 0.2 10^3/uL (0.0-0.3); EOSINOPHILS % (AUTO) 4 % (0-10); HEMATOCRIT 36 % (35-52); HEMOGLOBIN 12.3 g/dL (11.5-16.0); LYMPHOCYTES # (AUTO) 0.6 10^3/uL (1.0-4.0); LYMPHOCYTES % (AUTO) 13 % (12-44); MEAN CORPUSCULAR HEMOGLOBIN 31 pg (25-34); MEAN CORPUSCULAR HGB CONC 34 g/dL (32-36); MEAN CORPUSCULAR VOLUME 90 fL (80-99); MEAN PLATELET VOLUME 9.5 fL (9.0-12.2); MONOCYTES # (AUTO) 0.3 10^3/uL (0.0-1.0); MONOCYTES % (AUTO) 7 % (0-12); NEUTROPHILS # (AUTO) 3.4 10^3/uL (1.8-7.8); NEUTROPHILS % (AUTO) 75 % (42-75); PLATELET COUNT 196 10^3/uL (130-400); WHITE BLOOD COUNT 4.5 10^3/uL (4.3-11.0)
--- NOTE | 2023-05-12 10:36 | Diagnostic Imaging Report ---
CLINICAL INDICATION: Patient with general weakness x30 minutes prior to arrival. Patient is status post fall. EXAM: Axial CT scan of the brain performed without IV contrast with sagittal and coronal reformatted images. Auto Exposure Controls were utilized during the CT exam to meet ALARA standards for radiation dose reduction. COMPARISON: CT angiogram of head/neck dated 06/03/2022. FINDINGS: There is no evidence of acute cerebral infarct, intracranial hemorrhage, or gross mass effect. There is no dense vessel sign seen. There is diffuse brain parenchymal volume loss which appears appropriate for patient's age. There are patchy confluent areas of low-attenuation white matter changes involving both cerebral hemispheres, likely representing chronic small vessel ischemic disease and leukoaraiosis. There is normal mitchell-white matter distinction. There is no significant midline shift or herniation. There is no evidence of hydrocephalus. The basal cisterns are unremarkable. The skull, extracranial soft tissue, and orbits are unremarkable. The paranasal sinuses are unremarkable. Temporal bones show no significant abnormality. IMPRESSION: 1: Stable CT scan of the brain with no interval evidence of acute intracranial process. There is no dense vessel sign seen. 2: Again seen, diffuse chronic small vessel ischemic disease and leukoaraiosis. Dictated by: Dictated on workstation # [id number]
[2023-05-12 10:43] LABS: ALBUMIN 4.2 GM/DL (3.2-4.5); CHLORIDE 99 MMOL/L (98-107); POTASSIUM 4.3 MMOL/L (3.6-5.0); SODIUM 133 MMOL/L (135-145)
[2023-05-12 10:46] LABS: GLUCOSE 89 MG/DL (70-105); TOTAL PROTEIN 7.3 GM/DL (6.4-8.2)
[2023-05-12 10:47] LABS: BILIRUBIN,TOTAL 1.1 MG/DL (0.1-1.0); CARBON DIOXIDE 23 MMOL/L (21-32)
[2023-05-12 10:49] LABS: ALKALINE PHOSPHATASE 73 U/L (40-136); CREATININE SERUM 0.79 MG/DL (0.60-1.30); GFR ESTIMATED 71
[2023-05-12 10:50] LABS: BUN/CREATININE RATIO 25
[2023-05-12 10:52] LABS: ALANINE AMINOTRANSFERASE 17 U/L (0-55); MAGNESIUM 2.1 MG/DL (1.6-2.4)
[2023-05-12 12:29] LABS: CLARITY,URINE CLEAR; COLOR,URINE YELLOW; PH,URINE 7.5 (5-9); PROTEIN,URINE NEGATIVE (NEGATIVE)
[2023-05-12 12:30] LABS: BACTERIA,URINE NEGATIVE /HPF; BILIRUBIN,URINE NEGATIVE (NEGATIVE); GLUCOSE, URINE (UA) 1+ (NEGATIVE); KETONES,URINE 1+ (NEGATIVE); LEUKOCYTE ESTERASE ,URINE TRACE (NEGATIVE); NITRITE,URINE NEGATIVE (NEGATIVE); RBC,URINE 0-2 /HPF; SQUAMOUS EPITHELIAL CELL,UR 0-2 /HPF; WBC,URINE 0-2 /HPF
[2023-05-12 13:34] VITALS: BP 134/76
== END 2023-05-12 13:33 | disposition home or self-care (01) ==
LOC: EDUNIT# 09:26 → ER 09:28
DX: R55 Syncope and collapse (principal); R53.1 Weakness; Z20.822 Contact with and (suspected) exposure to COVID-19
CPT/HCPCS: 36415; 70450; 80053; 81000; 83735; 84484; 85025; 85027; 87636

== ENCOUNTER 2023-06-15 11:31 | Emergency (ER) | payer MEDICARE, OTHER ==
[~2023-06-15] VITALS: Ht 160 cm; Wt 42.0 kg
--- NOTE | 2023-06-15 12:12 | ED Syncope ---
General Chief Complaint: Dizziness/Syncope Stated Complaint: SYNCOPE Nursing Triage Note: Pt to ED via [facility] from home. Patient was reportedly walking down the hallway doing exercises with home health when she had a syncopal episode and fell. Patient states she does not remember much before the fall but perhaps she was dizzy. at bedside states patient sometimes gets dizzy when standing up too quickly. Patient denies any pain or concerns at time of initial assessment. EMS reports pt has hx of TIA. reports patient had pacemaker placed approx 6 months ago and home health has been coming to the home to help get medications settled. Source of Information: Patient Exam Limitations: No Limitations History of Present Illness Date Seen by Provider: Jun 15, 2023 Time Seen by Provider: 11:56 Initial Comments 87-year-old female presents to the ER via EMS after a syncopal episode. Patient states she was walking down the [place], does not remember passing out. She currently reports some mild lightheadedness. States that lately she has also ybarra d a mild cough. She reports some pain in her left jaw, has dried blood around her left nare. She states she thinks she does take a blood thinner for her atrial fibrillation. She denies fever, chest pain, shortness of air, abdominal pain, nausea, vomiting, diarrhea, sore throat, headache. Allergies and Home Medications Allergies Coded Allergies: bacitracin (Verified Allergy, Mild, RASH, 10/15/19) lidocaine (Verified Allergy, Mild, RASH, 10/15/19) neomycin (Verified Allergy, Mild, RASH, 10/15/19) polymyxin B (Verified Allergy, Mild, RASH, 10/15/19) pramoxine (Verified Allergy, Mild, RASH, 10/15/19) Patient Home Medication List Home Medication List Reviewed: Yes Acetaminophen (Acetaminophen ER) 650 Mg Tablet.er, 650 MG PO HS, (Reported) Entered as Reported by: CRYSTAL NEVES on 04/24/17 0925 Apixaban (Eliquis) 2.5 Mg Tablet, 2.5 MG PO BID, (Reported) Entered as Reported by: AMPARO COCHRAN on 01/04/22 0855 Calcium Citrate/Vitamin D3 (Calcium Citrate - Vit D3 Tab) 1 Each Tablet, 1 TAB PO DAILY, (Reported) Entered as Reported by: CRYSTAL NEVES on 04/24/17 0903 Cephalexin (Cephalexin) 500 Mg Tablet, 500 MG PO TID Prescribed by: KARL VILLA on 03/16/232256 Docusate Sodium (Docusate Sodium) 100 Mg Tablet, 100 MG PO DAILY, (Reported) Entered as Reported by: KATIE QUEVEDO on 03/15/23 1401 Escitalopram Oxalate (Escitalopram Oxalate) 5 Mg Tablet, 5 MG PO DAILY, (Reported) Entered as Reported by: MARE MCDERMOTT on 11/07/16 0907 Esomeprazole Magnesium (Esomeprazole Magnesium) 40 Mg Capsule.dr, 40 MG PO DAILY, (Reported) Entered as Reported by: KATIE QUEVEDO on 03/15/23 1358 Ferrous Sulfate (Ferrous Sulfate) 325 Mg (65 Mg Iron) Tablet, 325 MG PO DAILY, (Reported) Entered as Reported by: KATIE QUEVEDO on 03/15/23 135 Furosemide (Lasix) 20 Mg Tablet, 20 MG PO DAILY Prescribed by: SHAHRZAD CHILDRESS on 03/16/23 113 Losartan Potassium (Losartan Potassium) 100 Mg Tablet, 100 MG PO DAILY Prescribed by: SHAHRZAD CHILDRESS on 03/16/23 113 Magnesium Oxide (Magnesium Oxide) 250 Mg Tablet, 250 MG PO DAILY PRN for LEG CRAMPS, (Reported) Entered as Reported by: KATIE QUEVEDO on 03/15/23 135 Metoprolol Succinate (Metoprolol Succinate) 25 Mg Tab.er.24h, 25 MG PO BID Prescribed by: SHARHZAD CHILDRESS on 03/16/23 113 Multivitamin (Multiple Vitamins) 1 Each Tablet, 1 EACH PO DAILY, (Reported) Entered as Reported by: ALBERTO BROWN on 10/15/19 0812 Ondansetron (Ondansetron Odt) 4 Mg Tab.rapdis, 4 MG SL Q8H PRN for NAUSEA/VOMITING Prescribed by: KARL VILLA on 03/16/232256 Potassium Chloride (Potassium Chloride) 8 Meq Capsule.er, 8 MEQ PO DAILY Prescribed by: SHAHRZAD CHILDRESS on 03/16/23 113 Pyridoxine HCl (Vitamin B-6) 50 Mg Tablet, 50 MG PO BID, (Reported) Entered as Reported by: KATIE QUEVEDO on 03/15/23 135 Simvastatin (Simvastatin) 10 Mg Tablet, 10 MG PO HS, (Reported) Entered as Reported by: AMPARO COCHRAN on 01/04/22 0855 Sulfamethoxazole/Trimethoprim (Bactrim Ds Tablet) 1 Each Tablet, 1 EACH PO BID Prescribed by: HARMONY RICE on 03/21/23 0710 Review of Systems Constitutional: see HPI Past Tjgoaaa-Wpdebz-Afjlgy Hx Patient Social History Tobacco Use?: No Substance use?: No Pt feels they are or have been: No Immunizations Up To Date Tetanus Booster (TDap): Unknown First/Initial COVID19 Vaccinat: 2020 Second COVID19 Vaccination Conor: 2020 Third COVID19 Vaccination Date: 2020 Seasonal Allergies Seasonal Allergies: No Past Medical History Surgery/Hospitalization HX: pacemaker, heart valve replacement, HTN, HLD, DEPRESSION, CHF, GERD, AFIB, MACULAR DEGENERATION, TUBAL, BOWEL RESECTION, BREAST BX. 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 DOWN SYNDROME) Hypertension 19 MOTHER G8 SISTER Kidney disease sister Myocardial infarction 19 FATHER Neoplasm 19 MOTHER (BREAST CANCER) Visual disorder 19 MOTHER (MACULAR DEGENERATION) Heart Disease, Cancer, Hypertension Physical Exam Vital Signs Vital Signs - First Documented 06/15/23 06/15/23 11:39 14:38 Temp 36.7 Pulse 62 Resp 18 B/P (MAP) 158/66 (96) Pulse Ox 98 O2 Delivery Room Air Capillary Refill : Less Than 3 Seconds Height, Weight, BMI Height: 5'3.00" Weight: 82lbs. 6.4oz. 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 Norm as Tested Cranial Nerves: Normal Hearing, PERRL Motor/Sensory: No Motor Deficit, No Sensory Deficit Skin: Normal Color, Warm/Dry Progress/Results/Core Measures Results/Orders Lab Results Laboratory Tests Test 06/15/23 11:52 06/15/23 12:28 Range/Units White Blood Count 4.6 4.3-11.0 10^3/uL Red Blood Count 3.70 L 3.80-5.11 10^6/uL Hemoglobin 11.5 11.5-16.0 g/dL Hematocrit 34 L 35-52 % Mean Corpuscular Volume 92 80-99 fL Mean Corpuscular Hemoglobin 31 25-34 pg Mean Corpuscular Hemoglobin Concent 34 32-36 g/dL Red Cell Distribution Width 16.1 H 10.0-14.5 % Platelet Count 218 130-400 10^3/uL Mean Platelet Volume 9.4 9.0-12.2 fL Immature Granulocyte % (Auto) 0 % Neutrophils (%) (Auto) 65 42-75 % Lymphocytes (%) (Auto) 24 12-44 % Monocytes (%) (Auto) 9 0-12 % Eosinophils (%) (Auto) 2 0-10 % Basophils (%) (Auto) 1 0-10 % Neutrophils # (Auto) 3.0 1.8-7.8 10^3/uL Lymphocytes # (Auto) 1.1 1.0-4.0 10^3/uL Monocytes # (Auto) 0.4 0.0-1.0 10^3/uL Eosinophils # (Auto) 0.1 0.0-0.3 10^3/uL Basophils # (Auto) 0.0 0.0-0.1 10^3/uL Immature Granulocyte # (Auto) 0.0 0.0-0.1 10^3/uL Sodium Level 134 L 135-145 MMOL/L Potassium Level 4.8 3.6-5.0 MMOL/L Chloride Level 99 98-107 MMOL/L Carbon Dioxide Level 24 21-32 MMOL/L Anion Gap 11 5-14 MMOL/L Blood Urea Nitrogen 27 H 7-18 MG/DL Creatinine 0.83 0.60-1.30 MG/DL Estimat Glomerular Filtration Rate 67 BUN/Creatinine Ratio 33 Glucose Level 92 70-105 MG/DL Calcium Level 9.2 8.5-10.1 MG/DL Corrected Calcium 9.0 8.5-10.1 MG/DL Magnesium Level 2.1 1.6-2.4 MG/DL Total Bilirubin 0.6 0.1-1.0 MG/DL Aspartate Amino Transf (AST/SGOT) 28 5-34 U/L Alanine Aminotransferase (ALT/SGPT) 20 0-55 U/L Alkaline Phosphatase 103 40-136 U/L Troponin I < 0.028 <0.028 NG/ML Total Protein 7.0 6.4-8.2 GM/DL Albumin 4.2 3.2-4.5 GM/DL Influenza Type A (RT-PCR) Not Detected Not Detecte Influenza Type B (RT-PCR) Not Detected Not Detecte SARS-CoV-2 RNA (RT-PCR) Not Detected Not Detecte My Orders Orders - OSCAR CARSON APRN Cbc And Automated Diff (06/15/23 12:05) Magnesium (06/15/23 12:05) Chest 1 View, Ap/Pa Only (06/15/23 12:05) Ekg Tracing (06/15/23 12:05) Comprehensive Metabolic Panel (06/15/23 12:05) O2 (06/15/23 12:05) Monitor-Rhythm Ecg Trace Only (06/15/23 12:05) Ed Iv/Invasive Line Start (06/15/23 12:05) Troponin I Wilson (06/15/23 12:05) Ct Head/Face/Cervical Wo (06/15/23 12:09) Covid 19 Inhouse Test (06/15/23 12:12) Influenza A And B By Pcr (06/15/23 12:12) Vital Signs/I&O 06/15/23 06/15/23 11:39 14:38 Temp 36.7 36.6 Pulse 62 61 Resp 18 12 B/P (MAP) 158/66 (96) 134/62 Pulse Ox 98 O2 Delivery Room Air Room Air Blood Pressure Mean: 96 Progress Progress Note : Progress Note Patient seen and evaluated, resting comfortably in bed, no acute distress. Ba sed on exam and symptoms, work-up initiated including CBC, CMP, magnesium, troponin, EKG, chest x-ray, COVID and flu swab. Considered IV fluids, patient has severe congestive heart failure, so deferred. 1355 Labs and imaging reviewed. CBC shows no significant abnormalities. CMP shows slightly decreased sodium 134. BUN slightly elevated 27. Creatinine 0.83, GFR 67. Troponin negative. Magnesium normal. COVID and flu negative. Chest x-ray shows no acute appearing abnormality. CT shows stable chronic s tenting and findings, no hemorrhage, fracture or acute pathology. No fracture of the facial bones. Severe chronic degenerative changes of the cervical spine. Calcifications of the carotids. All results discussed with patient. Discharge instructions and return precautions provided. Initial ECG Impression Date: Jun 15, 2023 Initial ECG Impression Time: 12:32 Initial ECG Rate: 61 Initial ECG Impression: Nonspecific Changes Initial ECG Comparisson: Changed Comment Paced rhythm. Diagnostic Imaging Diagonstic Imaging: CT Plain Films/CT/US/NM/MRI: facial bones, c-spine, head Comments [facility], [place] NAME: YANNA LONG [facility] REC#: [id number] PT STATUS: DEP ER : 1935 PHYSICIAN: OSCAR CARSON APRN ADMIT DATE: 06/15/23/ER Signed Date of Exam:06/15/23 CT HEAD/FACE/CERVICAL WO PROCEDURE: CT head, face, and cervical spine without contrast. TECHNIQUE: Multiple contiguous axial images were obtained through the head, neck, and facial bones without the use of intravenous contrast. Sagittal and coronal reformations through the cervical spine and facial bones were also performed. Auto Exposure Controls were utilized during the CT exam to meet ALARA standards for radiation dose reduction. INDICATION: Syncopal episode resultant in fall with face, head and neck pain. Compared with head CT 05/12/[address] angiogram head and neck 06/03/2022. Head: Some mild chronic atrophy and moderate chronic periventricular white matter disease are stable or chronic. Intracranial atherosclerotic vascular calcifications stable. No skull fracture deformity. No hemo-sinus or pneumocephalus. No intracranial hemorrhage. No acute or abnormal extra-axial fluid collection. Facial bones: Sinuses clear. No sinus blood. The orbital contents intact. The bony orbital and maxillary jay intact. Pterygoid plates, mandible and zygomatic arch is intact. Nasal bones and bony nasal septum nonacute. No facial fracture identified. No acute orbital pathology apparent. CT cervical spine: Grade 1 anterolisthesis C4 on C5, C5 on C6 grade 1 retrolisthesis unchanged. Severe carter-cervical spondylosis, disc space narrowing most profound at C5-C6 and C6-C7. No facet dislocation. Central skull base intact. The craniocervical relationship intact. No cervical spinal fracture identified. There is chronic atherosclerotic carotid vascular calcifications and some chronic biapical pleural-parenchymal scarring stable. Previous study showed apical pleural effusions which are not appreciable at this exam but may be present below the field of view. IMPRESSION: CT HEAD: Stable chronic senescent findings with no hemorrhage, fracture or acute pathology. CT FACIAL BONES: No facial fracture or hemo-sinus. CT CERVICAL SPINE: Severe chronic degenerative changes and multilevel stable chronic degenerative listheses but no cervical fracture or dislocation. Dictated by: Dictated on workstation # [id number] Dict: 06/15/23 1231 Trans: 06/15/23 1617 [facility] [id number] Interpreted by: KAYA ANTONY Electronically signed by: KAYA ANTONY 06/15/23 161 Diagonstic Imaging: Xray Plain Films/CT/US/NM/MRI: chest Comments [facility], [place] NAME: YANNA LONG [facility] REC#: [id number] PT STATUS: DEP ER : 1935 PHYSICIAN: OSCAR CARSON APRN ADMIT DATE: 06/15/23/ER Signed Date of Exam:06/15/23 CHEST 1 VIEW, AP/PA ONLY Indication: Syncopal episode with fall. Compared with study 01/05/2023. FINDINGS: Chronic COPD is present. Some chronic calcifications of the costochondral junctions. Hilar and mediastinal contours were normal. There is no failure pattern. Previous right-sided pleural fluid has resolved. No infiltrate, effusion or pneumothorax. Impression: Chronic findings resolution of previous pleural fluid. No acute appearing abnormality or adverse interval development. Dictated by: Dictated on workstation # [id number] Dict: 06/15/23 1230 Trans: 06/15/23 1617 [facility] [id number] Interpreted by: KAYA ANTONY Electronically signed by: KAYA ANTONY 06/15/23 1617 Departure Impression Primary Impression: Syncope Qualified Codes: R55 - Syncope and collapse Disposition: 01 HOME, SELF-CARE Condition: Stable Departure-Patient Inst. Decision time for Depature: 13:55 Referrals: ZEV FARRAR MD (PCP/Family) Primary Care Physician Patient Instructions: Syncope (Fainting) (DC) Add. Discharge Instructions: Follow-up with Dr. Hernandez, regarding the calcification in your carotid arteries. Follow-up with your primary care provider. Return for any new, concerning, or worsening symptoms. All discharge instructions reviewed with patient and/or family. Voiced understanding. OSCAR CARSON PRODUCTION ASSISTANT Jun 15, 2023 12:12
[2023-06-15 12:16] LABS: BASOPHILS % (AUTO) 1 % (0-10); EOSINOPHILS # (AUTO) 0.1 10^3/uL (0.0-0.3); EOSINOPHILS % (AUTO) 2 % (0-10); HEMATOCRIT 34 % (35-52); HEMOGLOBIN 11.5 g/dL (11.5-16.0); LYMPHOCYTES # (AUTO) 1.1 10^3/uL (1.0-4.0); LYMPHOCYTES % (AUTO) 24 % (12-44); MEAN CORPUSCULAR HEMOGLOBIN 31 pg (25-34); MEAN CORPUSCULAR HGB CONC 34 g/dL (32-36); MEAN CORPUSCULAR VOLUME 92 fL (80-99); MEAN PLATELET VOLUME 9.4 fL (9.0-12.2); MONOCYTES # (AUTO) 0.4 10^3/uL (0.0-1.0); MONOCYTES % (AUTO) 9 % (0-12); NEUTROPHILS % (AUTO) 65 % (42-75); PLATELET COUNT 218 10^3/uL (130-400); WHITE BLOOD COUNT 4.6 10^3/uL (4.3-11.0)
[2023-06-15 12:29] LABS: ALANINE AMINOTRANSFERASE 20 U/L (0-55); ALBUMIN 4.2 GM/DL (3.2-4.5); ALKALINE PHOSPHATASE 103 U/L (40-136); BILIRUBIN,TOTAL 0.6 MG/DL (0.1-1.0); BUN/CREATININE RATIO 33; CALCIUM 9.2 MG/DL (8.5-10.1); CARBON DIOXIDE 24 MMOL/L (21-32); CHLORIDE 99 MMOL/L (98-107); CREATININE SERUM 0.83 MG/DL (0.60-1.30); GFR ESTIMATED 67; GLUCOSE 92 MG/DL (70-105); MAGNESIUM 2.1 MG/DL (1.6-2.4); POTASSIUM 4.8 MMOL/L (3.6-5.0); SODIUM 134 MMOL/L (135-145)
--- NOTE | 2023-06-15 12:37 | Diagnostic Imaging Report ---
Indication: Syncopal episode with fall. Compared with study 01/05/2023. FINDINGS: Chronic COPD is present. Some chronic calcifications of the costochondral junctions. Hilar and mediastinal contours were normal. There is no failure pattern. Previous right-sided pleural fluid has resolved. No infiltrate, effusion or pneumothorax. Impression: Chronic findings resolution of previous pleural fluid. No acute appearing abnormality or adverse interval development. Dictated by: Dictated on workstation # [id number]
--- NOTE | 2023-06-15 12:42 | Diagnostic Imaging Report ---
PROCEDURE: CT head, face, and cervical spine without contrast. TECHNIQUE: Multiple contiguous axial images were obtained through the head, neck, and facial bones without the use of intravenous contrast. Sagittal and coronal reformations through the cervical spine and facial bones were also performed. Auto Exposure Controls were utilized during the CT exam to meet ALARA standards for radiation dose reduction. INDICATION: Syncopal episode resultant in fall with face, head and neck pain. Compared with head CT 05/12/[address] angiogram head and neck 06/03/2022. Head: Some mild chronic atrophy and moderate chronic periventricular white matter disease are stable or chronic. Intracranial atherosclerotic vascular calcifications stable. No skull fracture deformity. No hemo-sinus or pneumocephalus. No intracranial hemorrhage. No acute or abnormal extra-axial fluid collection. Facial bones: Sinuses clear. No sinus blood. The orbital contents intact. The bony orbital and maxillary jay intact. Pterygoid plates, mandible and zygomatic arch is intact. Nasal bones and bony nasal septum nonacute. No facial fracture identified. No acute orbital pathology apparent. CT cervical spine: Grade 1 anterolisthesis C4 on C5, C5 on C6 grade 1 retrolisthesis unchanged. Severe carter-cervical spondylosis, disc space narrowing most profound at C5-C6 and C6-C7. No facet dislocation. Central skull base intact. The craniocervical relationship intact. No cervical spinal fracture identified. There is chronic atherosclerotic carotid vascular calcifications and some chronic biapical pleural-parenchymal scarring stable. Previous study showed apical pleural effusions which are not appreciable at this exam but may be present below the field of view. IMPRESSION: CT HEAD: Stable chronic senescent findings with no hemorrhage, fracture or acute pathology. CT FACIAL BONES: No facial fracture or hemo-sinus. CT CERVICAL SPINE: Severe chronic degenerative changes and multilevel stable chronic degenerative listheses but no cervical fracture or dislocation. Dictated by: Dictated on workstation # [id number]
[2023-06-15 14:38] VITALS: BP 134/62
== END 2023-06-15 14:38 | disposition home or self-care (01) ==
LOC: EDUNIT# 11:31 → ER 11:32
DX: R55 Syncope and collapse (principal); R68.84 Jaw pain; Z20.822 Contact with and (suspected) exposure to COVID-19; W18.30XA Fall on same level, unspecified, initial encounter; Y92.008 Other place in unspecified non-institutional (private) residence as the place of occurrence of the external cause; Y93.01 Activity, walking, marching and hiking
CPT/HCPCS: 36415; 70450; 70486; 71045; 72125; 80053; 83735; 84484; 85025; 87636; 93005; 93041